=== PATIENT | female | born 1990 | race Two or more races ===

== ENCOUNTER 2020-11-30 13:29 | Outpatient (REF) | payer OTHER, SELFPAY ==
[2020-12-02 05:32] LABS: C. trachomatis RNA TMA NOT DETECTED (NOT DETECTED); N. gonorrhoeae RNA TMA NOT DETECTED (NOT DETECTED)
[2020-12-03 12:12] LABS: HPV mRNA E6/E7 Not Detected (Not Detected)
== END 2020-11-30 13:30 | disposition home or self-care (01) ==
LOC: HO.LAB 13:29
PROVIDERS: PCP Internal Medicine; Visit Provider Advanced Practice Midwife
DX: Z01.419 Encounter for gynecological examination (general) (routine) without abnormal findings (principal)
CPT/HCPCS: 36415; 87491; 87591; 87624; 87625; 88141; 88142

== ENCOUNTER → 2020-12-22 12:56 | Outpatient (BNVA) | payer OTHER, SELFPAY | PROVIDERS: PCP Internal Medicine | DX: Z30.9 Encounter for contraceptive management, unspecified (principal) | CPT/HCPCS: 96372; 99212 ==

== ENCOUNTER 2021-02-25 09:49 | Outpatient (REF) | payer OTHER, SELFPAY ==
[2021-02-25 11:20] LABS: MANUAL DIFF FLAG NO
[2021-02-25 11:29] LABS: Basophils Percent Auto 0.8 % (0-2); Eosinophils Absolute Auto 0.3 X10*3/uL (0.0-0.4); Eosinophils Percent Auto 5.8 % (0-4); Hematocrit 39.9 % (37-47); Hemoglobin 13.3 g/dl (12.0-16.0); Imm Gran Abs Auto 0.04 X10*3/uL (0.00-0.03); Imm Gran Pct Auto 0.8 % (0.0-0.4); Lymphocytes Absolute Auto 1.2 X10*3/uL (1.2-4.9); Lymphocytes Percent Auto 24.7 % (20-40); Mean Corpuscular HGB Conc 33.3 g/dl (31.0-35.0); Mean Corpuscular Hemoglobin 28.4 pg (27.0-33.0); Mean Corpuscular Volume 85.1 fL (80-98); Mean Platelet Volume 10.1 fL (9.4-12.3); Monocytes Absolute Auto 0.3 X10*3/uL (0.1-1.2); Monocytes Percent Auto 6.2 % (2-11); Neutrophils Absolute Auto 3.1 X10*3/uL (2.0-8.3); Neutrophils Percent Auto 61.7 % (45-73); Platelet Count 272 X10*3/uL (160-400); Red Blood Count 4.69 X10*6/uL (4.20-5.50); Red Cell Distribution Width 12.2 % (11.0-16.0)
[2021-02-25 11:50] LABS: Alanine Aminotransferase 45 U/L (0-31); Alkaline Phosphatase 136 U/L (39-117); Anion Gap 14 (12-20); Aspartate Amino Transferase 31 U/L (5-31); Blood Urea Nitrogen 13 mg/dL (9-16); Calcium 8.9 mg/dL (8.4-10.2); Carbon Dioxide 25 mmol/L (22-29); Chloride 105 mmol/L (96-108); Cholesterol 222 mg/dL; Estimated Glomerular Filt Rate > 60; Glucose Fasting 264 mg/dL (60-99); HDL Cholesterol 51 mg/dL; Iron 80 mcg/dL (30-160); LDL Cholesterol Calculated 112 mg/dl; Percent Iron Saturation 31 % (15-50); Potassium 3.9 mmol/L (3.3-5.1); Sodium 140 mmol/L (135-145); Total Iron Binding Capacity 260 mcg/dL (228-428); Total Protein 7.4 g/dL (6.5-8.0); Triglycerides 295 mg/dL; Unsaturated Iron Binding 180 ug/dL
[2021-02-25 12:00] LABS: Vitamin D 25-OH Total 22.9 ng/mL (>30)
[2021-02-25 12:13] LABS: Folate 10.6 ng/mL (> or = 4.0); Vitamin B12 1662 pg/mL (200-900)
[2021-02-25 12:14] LABS: Bilirubin Total 0.4 mg/dL (0.0-1.0)
== END 2021-02-25 09:50 | disposition home or self-care (01) ==
LOC: HO.HMGCLDS 09:49
PROVIDERS: PCP Internal Medicine; Visit Provider Internal Medicine
DX: Z00.01 Encounter for general adult medical examination with abnormal findings (principal); E03.9 Hypothyroidism, unspecified; E78.5 Hyperlipidemia, unspecified; F31.9 Bipolar disorder, unspecified; G62.9 Polyneuropathy, unspecified; I10 Essential (primary) hypertension; M62.81 Muscle weakness (generalized)
CPT/HCPCS: 36415; 80053; 80061; 82306; 82607; 82746; 83540; 84439; 84443; 85025

== ENCOUNTER 2021-03-01 10:37 | Outpatient (REF) | payer OTHER, SELFPAY ==
[2021-03-01 14:22] LABS: Estimated Average Glucose 280 mg/dL; Hemoglobin A1c % 11.4 %
[2021-03-01 14:30] LABS: Alanine Aminotransferase 46 U/L (0-31); Albumin Level 4.3 g/dL (3.5-5.0); Alkaline Phosphatase 159 U/L (39-117); Aspartate Amino Transferase 33 U/L (5-31); Bilirubin Direct 0.2 mg/dL (0.0-0.5); Bilirubin Total 0.6 mg/dL (0.0-1.0); Total Protein 7.7 g/dL (6.5-8.0)
[2021-03-01 14:53] LABS: Free T4 (Free Thyroxine) 0.96 ng/dL (0.71-1.85); Thyroid Stimulating Hormone 3.29 uIU/mL (0.32-4.0); Vitamin D 25-OH Total 28.4 ng/mL (>30)
[2021-03-01 15:08] LABS: Folate 12.6 ng/mL (> or = 4.0); Vitamin B12 1330 pg/mL (200-900)
== END 2021-03-01 10:38 | disposition home or self-care (01) ==
LOC: HO.HMGCLDS 10:37
PROVIDERS: PCP Internal Medicine; Visit Provider Internal Medicine
DX: E03.9 Hypothyroidism, unspecified (principal); E55.9 Vitamin D deficiency, unspecified; R74.8 Abnormal levels of other serum enzymes; R73.01 Impaired fasting glucose
CPT/HCPCS: 36415; 80076; 82306; 82607; 82746; 83036; 84439; 84443

== ENCOUNTER → 2021-03-18 13:05 | Outpatient (BNVA) | payer OTHER, SELFPAY | PROVIDERS: PCP Internal Medicine; Visit Provider Advanced Practice Midwife | DX: Z30.9 Encounter for contraceptive management, unspecified (principal) | CPT/HCPCS: 96372; J1050 ==

== ENCOUNTER → 2021-05-10 13:39 | Outpatient (BNVA) | payer OTHER, SELFPAY | PROVIDERS: PCP Internal Medicine; Visit Provider Nurse Practitioner Gerontology | DX: E11.65 Type 2 diabetes mellitus with hyperglycemia (principal); E03.9 Hypothyroidism, unspecified; E66.01 Morbid (severe) obesity due to excess calories; Z68.42 Body mass index [BMI] 45.0-49.9, adult; Z79.4 Long term (current) use of insulin | CPT/HCPCS: 82947; 99212 ==

== ENCOUNTER 2021-05-23 10:17 | Outpatient (REF) | payer OTHER, SELFPAY ==
[2021-05-24 08:39] LABS: BV Int Neg Control Negative (Negative); BV Int Pos Control Positive (Positive)
== END 2021-05-23 10:18 | disposition home or self-care (01) ==
LOC: HO.LAB 10:17
PROVIDERS: PCP Internal Medicine; Visit Provider Advanced Practice Midwife
DX: E11.9 Type 2 diabetes mellitus without complications (principal); B37.3 Candidiasis of vulva and vagina; Z20.2 Contact with and (suspected) exposure to infections with a predominantly sexual mode of transmission
CPT/HCPCS: 87480; 87510; 87660; 99212

== ENCOUNTER → 2021-06-03 13:11 | Outpatient (BNVA) | payer OTHER, SELFPAY | PROVIDERS: PCP Internal Medicine; Visit Provider Advanced Practice Midwife | DX: Z30.9 Encounter for contraceptive management, unspecified (principal) | CPT/HCPCS: 96372; 99211 ==

== ENCOUNTER → 2021-06-06 12:30 | Outpatient (BNVA) | payer OTHER, SELFPAY | PROVIDERS: PCP Internal Medicine; Visit Provider Dietitian, Registered | DX: E11.65 Type 2 diabetes mellitus with hyperglycemia (principal); Z79.4 Long term (current) use of insulin | CPT/HCPCS: 97802 ==

== ENCOUNTER → 2021-07-20 12:23 | Outpatient (BNVA) | payer OTHER, SELFPAY | PROVIDERS: PCP Internal Medicine; Visit Provider Dietitian, Registered | DX: E11.65 Type 2 diabetes mellitus with hyperglycemia (principal); Z79.4 Long term (current) use of insulin | CPT/HCPCS: 97803 ==

== ENCOUNTER → 2021-08-18 14:23 | Outpatient (BNVA) | payer OTHER, SELFPAY | PROVIDERS: PCP Internal Medicine; Visit Provider Nurse Practitioner Gerontology | DX: E11.69 Type 2 diabetes mellitus with other specified complication (principal); E03.9 Hypothyroidism, unspecified; E66.01 Morbid (severe) obesity due to excess calories; E55.9 Vitamin D deficiency, unspecified; G62.9 Polyneuropathy, unspecified; Z68.42 Body mass index [BMI] 45.0-49.9, adult; Z79.4 Long term (current) use of insulin | CPT/HCPCS: 82947; 83036; 99212 ==

== ENCOUNTER → 2021-08-24 14:05 | Outpatient (BNVA) | payer OTHER, SELFPAY | PROVIDERS: PCP Internal Medicine; Visit Provider Advanced Practice Midwife | DX: Z30.42 Encounter for surveillance of injectable contraceptive (principal) | CPT/HCPCS: 96372; 99211 ==

== ENCOUNTER → 2021-09-21 13:07 | Outpatient (BNVA) | payer OTHER, SELFPAY | PROVIDERS: PCP Internal Medicine; Visit Provider Advanced Practice Midwife | DX: E11.65 Type 2 diabetes mellitus with hyperglycemia (principal); Z30.42 Encounter for surveillance of injectable contraceptive; E11.69 Type 2 diabetes mellitus with other specified complication; E66.01 Morbid (severe) obesity due to excess calories; G62.9 Polyneuropathy, unspecified; N92.1 Excessive and frequent menstruation with irregular cycle; B37.3 Candidiasis of vulva and vagina; Z79.4 Long term (current) use of insulin; Z68.42 Body mass index [BMI] 45.0-49.9, adult | CPT/HCPCS: 99212 ==

== ENCOUNTER 2021-10-11 | Outpatient (REF) | payer OTHER, SELFPAY ==
[2021-10-12 13:13] LABS: Influenza A PCR NEGATIVE (Negative); Influenza B PCR NEGATIVE (Negative); Resp Syncy Virus RNA Qual PCR NEGATIVE (Negative); SARS COV2 PCR INHOUSE NEGATIVE (Negative)
== END 2021-10-11 00:01 | disposition home or self-care (01) ==
LOC: HO.LNP
PROVIDERS: Visit Provider Internal Medicine
DX: Z20.822 Contact with and (suspected) exposure to COVID-19 (principal); R43.9 Unspecified disturbances of smell and taste
CPT/HCPCS: 0241U

== ENCOUNTER 2021-10-12 11:30 | Outpatient (REF) | payer OTHER, SELFPAY | END 2021-10-12 11:31 | disposition home or self-care (01) | LOC: HO.LNP 11:30 | PROVIDERS: Visit Provider Internal Medicine | DX: Z13.89 Encounter for screening for other disorder (principal) ==

== ENCOUNTER 2021-10-16 09:07 | Inpatient (IN) | payer OTHER, SELFPAY ==
[2021-10-16] VITALS (12 sets, daily range): BP systolic 96–136; BP diastolic 56–80; PULSE 100–165; RESP 14–20; TEMP 36.1–39.3; O2SAT 94–99; BMI 45.3
--- NOTE | ~2021-10-16 | US_ITS ---
EXAMINATION: US RETROPERITONEAL LIMITED (RENAL ONLY) CLINICAL INFORMATION: Sepsis. Urinary tract infection. Acute renal insufficiency. Evaluate for pyelonephritis, stones, urinary tract obstruction.. COMPARISON: Abdomen CT from 07/29/2019 TECHNIQUE: Sonographic imaging of the kidneys was performed. The visualization the kidneys is partially limited by patient's body habitus. FINDINGS: RIGHT KIDNEY: 11.1 x 5.1 x 5.5 cm (SAG x AP x TRV). The kidney is normal in size, contour, and echogenicity. Renal cortical thickness is normal. No calculi or focal parenchymal lesions. No hydronephrosis. No perinephric fluid is seen. LEFT KIDNEY: 12.1 x 6.1 x 5 cm (SAG x AP x TRV). The kidney is normal in size, contour, and echogenicity. Renal cortical thickness is normal. No calculi or focal parenchymal lesions. No hydronephrosis. No perinephric fluid is seen. US/US renal BI IMPRESSION: The kidneys have a normal sonographic appearance. No evidence of nephrolithiasis or hydronephrosis.
--- NOTE | ~2021-10-16 | XR_ITS ---
EXAMINATION: XR CHEST CLINICAL INFORMATION: Question pneumonia COMPARISON: August 14, 2019 TECHNIQUE: AP upright view of the chest was obtained. FINDINGS: There are small lung volumes. There is no evidence of acute parenchymal disease, pneumothorax, or pleural effusion. Heart normal size. No evidence of pulmonary edema. XR/XR chest 1V IMPRESSION: No acute disease.
--- NOTE | 2021-10-16 09:28 | ECG_ITS ---
Test Reason : HI HR Blood Pressure : / mmHG Vent. Rate : 152 BPM Atrial Rate : 152 BPM P-R Int : 112 ms QRS Dur : 084 ms QT Int : 326 ms P-R-T Axes : 000 074 027 degrees QTc Int : 518 ms Sinus tachycardia Abnormal ECG When compared with ECG of 15-AUG-2019 07:25, Non-specific change in ST segment in Inferior leads T wave inversion no longer evident in Inferior leads T wave inversion no longer evident in Anterior leads Referred By: Robert Hobson Electronically Signed By:HEMA CERVANTES
[2021-10-16] MEDS: Acetaminophen 325 MG TABLET 650 MG PO (09:40)
--- NOTE | 2021-10-16 09:40 | ED.GENADULT ---
HPI - General Adult General Chief complaint: Fever Stated complaint: FEVER, WEAKNESS, AMS Time Seen by Provider: 10/16/21 09:27 Source: patient and EMS Mode of arrival: EMS History of Present Illness HPI narrative: this is a 31 years old female with history of inflammatory polyneuropathy diagnosed in 2019, history of diabetes type 2, presented to the emergency department with 10 days history of a febrile illness and malaise. She was seen in outpatient clinic last week he was tested for COVID sent home . The father is in the patient states for the last couple of days she has been febrile. She arrived to the emergency department tachycardic febrile with a temperature of 102.5 degrees Onset (ago): day(s) (10) Radiation: non-radiation Severity: moderate Pain Consistency: constant Relieving factors: none Exacerbating factors: none Associated symptoms: denies other symptoms Related Data Home Medications Medication Instructions Recorded Confirmed bupropion HCl 100 mg tablet,12 hr 100 mg PO QAM 11/30/20 09/21/21 sustained-release trazodone 100 mg tablet 100 mg PO BEDTIME 11/30/20 09/21/21 cranberry 400 mg capsule 450 mg PO DAILY cap 03/22/21 09/21/21 melatonin 3 mg tablet 6 mg PO DAILY 03/22/21 09/21/21 multivitamin 1 tab PO DAILY 03/22/21 09/21/21 pregabalin 300 mg capsule 150 mg PO BID cap 05/10/21 09/21/21 medroxyprogesterone 150 mg/mL 150 mg IM [id number] 05/23/21 09/21/21 intramuscular suspension (Depo-Provera) thiamine HCl (vitamin B1) 100 mg 100 mg PO DAILY 06/09/21 09/21/21 tablet rituximab 10 mg/mL IV 08/11/21 09/21/21 concentrate,intravenous oxcarbazepine 150 mg tablet 450 mg PO BID tab 08/18/21 09/21/21 immune globulin,gamma(IgG)slra 10 IV 10/11/21 % intravenous solution quetiapine 200 mg tablet 1 tab PO BEDTIME 10/16/21 Previous Rx's Medication Instructions Recorded blood sugar diagnostic (FreeStyle #100 ea 05/10/21 Lite Strips) insulin degludec 200 unit/mL (3 20 unit (0.1 mL) SUBCUT BEDTIME 30 05/10/21 mL) subcutaneous pen (si #3 ml FlexTouch U-200 insulin) lancets 28 gauge (FreeStyle #100 ea 05/10/21 Lancets) pen needle, diabetic 32 gauge x #50 ea 05/10/21/32 (BD Wendy 2nd Gen Pen Needle) blood-glucose meter (FreeStyle #1 ea 05/31/21 Lite Meter) ferrous sulfate 325 mg (65 mg 325 mg PO BID #60 cap 06/21/21 iron) tablet pantoprazole 40 mg tablet,delayed 40 mg PO DAILY #30 cap 07/19/21 release empagliflozin 10 mg tablet 10 mg PO QAM #30 tab 07/20/21 (Jardiance) metformin 500 mg tablet 500 mg PO BID #60 tab 08/08/21 cholecalciferol (vitamin D3) 1,250 1,250 mcg PO QWEEK 90 Days #13 cap 08/20/21 mcg (50,000 unit) capsule pravastatin 20 mg tablet 20 mg PO BEDTIME #30 tab 09/16/21 miconazole nitrate 2 % vaginal 1 appful VAGINAL BEDTIME 7 Days 09/21/21 cream (Miconazole-7) #45 g levothyroxine 75 mcg tablet 75 mcg PO QAM #30 cap 09/26/21 (Euthyrox) magnesium oxide 400 mg (241.3 mg 400 mg PO DAILY #30 tab 10/04/21 magnesium) tablet Allergies Allergy/AdvReac Type Severity Reaction Status Date / Time latex Allergy Unknown rash Verified 10/11/21 16:15 metoclopramide [From REGLAN] AdvReac Unknown INTERACTS Verified 10/11/21 16:15 W/ SEROQUEL Review of Systems Review of Systems: Yes all other systems are reviewed and are negative Constitutional: Constitutional: Reports anorexia, Reports body ache(s), Reports fatigue and Reports fever(s) ENT: Reports system reviewed and no additional complaints, except as documented Respiratory: Respiratory: Reports cough Gastrointestinal: Gastrointestinal: Reports no additional gastrointestinal complaints Musculoskeletal: Musculoskeletal: Reports no additional musculoskeletal complaints Endocrine: Endocrine: Reports fatigue PMFSH Past Medical History Medical History Acquired hypothyroidism Bipolar disorder Blurred vision, bilateral Diabetes mellitus with hyperglycemia Elevated fasting blood sugar Elevated vitamin B12 level Esophagitis with gastritis Essential hypertension Gastric paresis Hyperlipidemia Muscle weakness Newly diagnosed diabetes Obesity due to excess calories Peripheral neuropathy Vitamin D deficiency Surgical History Hx of section Hx of tooth extraction Family History Family History Other Adopted Social History Social History Household Members: Family Alcohol intake: former Patient Tobacco Use Status: Former Tobacco user Advance Directives: No Advance Directives Information Provided: Yes Patient : No Gender identity: Female Physical Exam Vital Signs: Vital Signs: Last Vital Signs Temp 100.3 F 10/16/21 12:18 Pulse 127 H 10/16/21 12:18 Resp 20 10/16/21 12:18 BP 106/61 10/16/21 12:18 Pulse Ox 97 10/16/21 12:18 BMI result Body Mass Index 45.3 Const: General: cooperative and Cushingoid facies Nutritional Appearance: obese and overweight HENMT: Other: examination the head eyes ears nose and throat is within normal limits General nose exam: Normal external nose present Face and sinus: Yes normal facial exam Mouth: Normal oral and palatal mucosa present Neck: Neck: Yes normal visual inspection and Yes full ROM Chest: Chest palpation & inspection: normal inspection of the chest Resp: Effort & Inspection: normal respiratory effort Auscultation: clear to auscultation bilaterally Cardio: Jugular venous distension: no JVD Rate: tachycardic GI: Inspection: Yes normal to inspection Palpation (GI): Soft to palpation Skin: General skin exam: no rashes or lesions noted Course Reevaluation(s) Reevaluation #1: Imroving ,Heart rate coming down,w/u so far showed UTI as possible source Medical Decision Making MDM Narrative Medical decision making narrative: this is a 31 years old female was arrived afebrile and tachycardic concern with sepsis will do blood cultures x2 lactic acid the, antibiotic will be administered Zosyn and vanco IV fluid will be given patient lean body weight is about the 50 kg she is about 411 ft. Lab Data Lab results reviewed: Yes I reviewed the patient's lab results. Result diagrams: 10/16/21 09:54 10/16/21 09:54 Labs: Lab Results 12/04/0110/16/21 10/16/21 Range/Units 09:54 09:54 09:54 WBC 14.1 H (4.8-10.8) X10*3/uL RBC 3.88 L (4.20-5.50) X10*6/uL Hgb 11.3 L (12.0-16.0) g/dl Hct 33.3 L (37.0-47.0) % MCV 85.8 (80.0-98.0) fL MCH 29.1 (27.0-33.0) pg MCHC 33.9 (31.0-35.0) g/dl RDW 14.1 (11.0-16.0) % Plt Count 92 L (160-400) X10*3/uL MPV 11.8 (9.4-12.3) fL Immature Gran % (Auto) 0.8 H (0.0-0.4) % Neut % (Auto) 93.8 H (45-73) % Lymph % (Auto) 1.1 L (20-40) % [place] % (Auto) 4.0 (2-11) % Eos % (Auto) 0.1 (0-4) % Baso % (Auto) 0.2 (0-2) % Lymph # (Auto) 0.2 L (1.2-4.9) X10*3/uL Montgomery # (Auto) 0.6 (0.1-1.2) X10*3/uL Eos # (Auto) 0.0 (0.0-0.4) X10*3/uL Baso # (Auto) 0.0 (0.0-0.2) X10*3/uL Abs Immat Gran (auto) 0.12 H (0.00-0.03) X10*3/uL Absolute Neuts (auto) 13.3 H (2.0-8.3) x10*3/uL Absolute Nucleated RBC 0.000 (0.0-0.012) X10*3/uL Nucleated RBC % (auto) 0.0 (0.0-0.2) /100WBC Smear Tech's Comments VERIFIED VBG pH (7.32-7.43) VBG pCO2 mmHg VBG pO2 mmHg VBG HCO3 (22-26) mmol/L VBG O2 Saturation % VBG Base Excess mmol/L Sodium 138 (135-145) mmol/L Potassium 2.9 L D (3.3-5.1) mmol/L Chloride 110 H (96-108) mmol/L Carbon Dioxide 14 L (22-29) mmol/L Anion Gap 17 (12-20) BUN 34 H (9-16) mg/dL Creatinine 1.96 H (0.5-1.4) mg/dL Estim Creat Clear Calc 43.4 Estimated GFR 30 Random Glucose 178 H (60-115) mg/dL Lactic Acid 1.4 (0.5-2.0) mmol/L Calcium 7.1 L D (8.4-10.2) mg/dL Total Bilirubin 1.3 H (0.0-1.0) mg/dL AST 30 (5-31) U/L ALT 20 (0-31) U/L Alkaline Phosphatase 166 H (39-117) U/L Troponin I High Sens (<3.5-17.0) ng/L Total Protein 5.2 L D (6.5-8.0) g/dL Albumin 2.6 L D (3.5-5.0) g/dL Urine Color Urine Appearance Urine pH (5.0-8.0) Ur Specific [place] (1.005-1.025) Urine Protein (NEG-TRACE) MG/DL Urine Glucose (UA) (NEG) MG/DL Urine Ketones (NEG) MG/DL Urine Blood (NEG) Urine Nitrite (NEG) Ur Leukocyte Esterase (NEG) Urine RBC (0) /HPF Urine WBC (0-4) /HPF Urine WBC Clumps Ur Squamous Epith Cells /LPF Urine Bacteria /LPF Influenza Type A (PCR) (Negative) Influenza Type B (PCR) (Negative) RSV RNA Qual (PCR) (Negative) SARS-CoV-2 RNA (RT-PCR) (Negative) 10/16/21 10/16/21 10/16/21 Range/Units 09:54 09:54 09:59 WBC (4.8-10.8) X10*3/uL RBC (4.20-5.50) X10*6/uL Hgb (12.0-16.0) g/dl Hct (37.0-47.0) % MCV (80.0-98.0) fL MCH (27.0-33.0) pg MCHC (31.0-35.0) g/dl RDW (11.0-16.0) % Plt Count (160-400) X10*3/uL MPV (9.4-12.3) fL Immature Gran % (Auto) (0.0-0.4) % Neut % (Auto) (45-73) % Lymph % (Auto) (20-40) % Montgomery % (Auto) (2-11) % Eos % (Auto) (0-4) % Baso % (Auto) (0-2) % Lymph # (Auto) (1.2-4.9) X10*3/uL Montgomery # (Auto) (0.1-1.2) X10*3/uL Eos # (Auto) (0.0-0.4) X10*3/uL Baso # (Auto) (0.0-0.2) X10*3/uL Abs Immat Gran (auto) (0.00-0.03) X10*3/uL Absolute Neuts (auto) (2.0-8.3) x10*3/uL Absolute Nucleated RBC (0.0-0.012) X10*3/uL Nucleated RBC % (auto) (0.0-0.2) /100WBC Smear Tech's Comments VBG pH 7.33 (7.32-7.43) VBG pCO2 23 mmHg VBG pO2 68 mmHg VBG HCO3 12 L (22-26) mmol/L VBG O2 Saturation 90.0 % VBG Base Excess -11.1 mmol/L Sodium (135-145) mmol/L Potassium (3.3-5.1) mmol/L Chloride (96-108) mmol/L Carbon Dioxide (22-29) mmol/L Anion Gap (12-20) BUN (9-16) mg/dL Creatinine (0.5-1.4) mg/dL Estim Creat Clear Calc Estimated GFR Random Glucose (60-115) mg/dL Lactic Acid (0.5-2.0) mmol/L Calcium (8.4-10.2) mg/dL Total Bilirubin (0.0-1.0) mg/dL AST (5-31) U/L ALT (0-31) U/L Alkaline Phosphatase (39-117) U/L Troponin I High Sens 4.3 (<3.5-17.0) ng/L Total Protein (6.5-8.0) g/dL Albumin (3.5-5.0) g/dL Urine Color Urine Appearance Urine pH (5.0-8.0) Ur Specific [place] (1.005-1.025) Urine Protein (NEG-TRACE) MG/DL Urine Glucose (UA) (NEG) MG/DL Urine Ketones (NEG) MG/DL Urine Blood (NEG) Urine Nitrite (NEG) Ur Leukocyte Esterase (NEG) Urine RBC (0) /HPF Urine WBC (0-4) /HPF Urine WBC Clumps Ur Squamous Epith Cells /LPF Urine Bacteria /LPF Influenza Type A (PCR) NEGATIVE (Negative) Influenza Type B (PCR) NEGATIVE (Negative) RSV RNA Qual (PCR) NEGATIVE (Negative) SARS-CoV-2 RNA (RT-PCR) NEGATIVE (Negative) 10/16/21 Range/Units 10:29 WBC (4.8-10.8) X10*3/uL RBC (4.20-5.50) X10*6/uL Hgb (12.0-16.0) g/dl Hct (37.0-47.0) % MCV (80.0-98.0) fL MCH (27.0-33.0) pg MCHC (31.0-35.0) g/dl RDW (11.0-16.0) % Plt Count (160-400) X10*3/uL MPV (9.4-12.3) fL Immature Gran % (Auto) (0.0-0.4) % Neut % (Auto) (45-73) % Lymph % (Auto) (20-40) % Montgomery % (Auto) (2-11) % Eos % (Auto) (0-4) % Baso % (Auto) (0-2) % Lymph # (Auto) (1.2-4.9) X10*3/uL [place] # (Auto) (0.1-1.2) X10*3/uL Eos # (Auto) (0.0-0.4) X10*3/uL Baso # (Auto) (0.0-0.2) X10*3/uL Abs Immat Gran (auto) (0.00-0.03) X10*3/uL Absolute Neuts (auto) (2.0-8.3) x10*3/uL Absolute Nucleated RBC (0.0-0.012) X10*3/uL Nucleated RBC % (auto) (0.0-0.2) /100WBC Smear Tech's Comments VBG pH (7.32-7.43) VBG pCO2 mmHg VBG pO2 mmHg VBG HCO3 (22-26) mmol/L VBG O2 Saturation % VBG Base Excess mmol/L Sodium (135-145) mmol/L Potassium (3.3-5.1) mmol/L Chloride (96-108) mmol/L Carbon Dioxide (22-29) mmol/L Anion Gap (12-20) BUN (9-16) mg/dL Creatinine (0.5-1.4) mg/dL Estim Creat Clear Calc Estimated GFR Random Glucose (60-115) mg/dL Lactic Acid (0.5-2.0) mmol/L Calcium (8.4-10.2) mg/dL Total Bilirubin (0.0-1.0) mg/dL AST (5-31) U/L ALT (0-31) U/L Alkaline Phosphatase (39-117) U/L Troponin I High Sens (<3.5-17.0) ng/L Total Protein (6.5-8.0) g/dL Albumin (3.5-5.0) g/dL Urine Color YELLOW Urine Appearance CLOUDY Urine pH 5.5 (5.0-8.0) Ur Specific [place] 1.025 (1.005-1.025) Urine Protein 2+ H (NEG-TRACE) MG/DL Urine Glucose (UA) >=1000 H (NEG) MG/DL Urine Ketones 15 (NEG) MG/DL Urine Blood 2+ H (NEG) Urine Nitrite NEG (NEG) Ur Leukocyte Esterase 2+ H (NEG) Urine RBC 15-29 H (0) /HPF Urine WBC 76-150 H (0-4) /HPF Urine WBC Clumps NOTED Ur Squamous Epith Cells 2+ /LPF Urine Bacteria 3+ /LPF Influenza Type A (PCR) (Negative) Influenza Type B (PCR) (Negative) RSV RNA Qual (PCR) (Negative) SARS-CoV-2 RNA (RT-PCR) (Negative) Critical Care Time Critical Care Time Critical Care Time: Yes Total Critical Care Time: 60 Attestation: fever/ tachycardia 150/sepsis syndrome time spent with pt,talking to father,nurse/hospitalist Discharge Plan Discharge Clinical Impression: Fever, UTI (urinary tract infection) Patient Disposition: Admitted As Inpatient
[2021-10-16] MEDS: 0.9 % Sodium Chloride 1,000 ML 999 ML IVCONT ×2 (10:00→10:08)
[2021-10-16 10:04] LABS: Basophils Percent Auto 0.2 % (0-2); Eosinophils Percent Auto 0.1 % (0-4); Hematocrit 33.3 % (37.0-47.0); Hemoglobin 11.3 g/dl (12.0-16.0); Imm Gran Abs Auto 0.12 X10*3/uL (0.00-0.03); Imm Gran Pct Auto 0.8 % (0.0-0.4); Lymphocytes Absolute Auto 0.2 X10*3/uL (1.2-4.9); Lymphocytes Percent Auto 1.1 % (20-40); MANUAL DIFF FLAG SCAN; Mean Corpuscular HGB Conc 33.9 g/dl (31.0-35.0); Mean Corpuscular Hemoglobin 29.1 pg (27.0-33.0); Mean Corpuscular Volume 85.8 fL (80.0-98.0); Mean Platelet Volume 11.8 fL (9.4-12.3); Monocytes Absolute Auto 0.6 X10*3/uL (0.1-1.2); Neutrophils Absolute Auto 13.3 x10*3/uL (2.0-8.3); Neutrophils Percent Auto 93.8 % (45-73); Red Blood Count 3.88 X10*6/uL (4.20-5.50); Red Cell Distribution Width 14.1 % (11.0-16.0); SCAN SMEAR FLAG 1; White Blood Count 14.1 X10*3/uL (4.8-10.8)
[2021-10-16 10:04] LABS: VBG Base Excess -11.1 mmol/L; VBG HCO3 12 mmol/L (22-26); VBG pCO2 23 mmHg; VBG pH 7.33 (7.32-7.43); VBG pO2 68 mmHg
[2021-10-16] MEDS: Piperacillin Sodium/Tazobactam 4.5 GM in 0.9 % Sodium Chloride 100 ML IV (10:06)
[2021-10-16 10:08] LABS: Venous Blood Gas Refer to POC result
[2021-10-16 10:17] LABS: Lactic Acid 1.4 mmol/L (0.5-2.0)
[2021-10-16 10:21] LABS: Troponin-I High Sensitivity 4.3 ng/L (<3.5-17.0)
[2021-10-16 10:26] LABS: Platelet Count 92 X10*3/uL (160-400)
[2021-10-16 10:27] LABS: SLIDE REVIEW VERIFIED
[2021-10-16 10:31] LABS: Alanine Aminotransferase 20 U/L (0-31); Albumin Level 2.6 g/dL (3.5-5.0); Alkaline Phosphatase 166 U/L (39-117); Aspartate Amino Transferase 30 U/L (5-31); Bilirubin Total 1.3 mg/dL (0.0-1.0); Blood Urea Nitrogen 34 mg/dL (9-16); Creatinine Clr Calc Pharmacy 43.4; Estimated Glomerular Filt Rate 30; Glucose Random 178 mg/dL (60-115); Total Protein 5.2 g/dL (6.5-8.0)
[2021-10-16 10:35] LABS: Appearance Urine CLOUDY; Color Urine YELLOW; Glucose Urine UA >=1000 MG/DL (NEG); Leukocyte Esterase Urine 2+ (NEG); Nitrite Urine NEG (NEG); PH 5.5 (5.0-8.0); Specific Gravity - Urine 1.025 (1.005-1.025); UACC Culture Trigger YES; Urine Blood 2+ (NEG); Urine Ketones 15 MG/DL (NEG); Urine Protein 2+ MG/DL (NEG-TRACE)
[2021-10-16] MEDS: Acetaminophen 325 MG TABLET PO (10:36)
[2021-10-16] MEDS: Ibuprofen 800 MG TABLET PO (10:36)
[2021-10-16] MEDS: vancomycin HCL 1,500 MG in 0.9 % Sodium Chloride 500 ML 333.33 MG IV (10:40)
[2021-10-16 10:41] LABS: UACC CULT YES
[2021-10-16 10:41] LABS: Influenza A PCR NEGATIVE (Negative); Influenza B PCR NEGATIVE (Negative); Resp Syncy Virus RNA Qual PCR NEGATIVE (Negative); SARS COV2 PCR INHOUSE NEGATIVE (Negative)
[2021-10-16 10:42] LABS: Bacteria Urine 3+ /LPF; Squamous Epithelial Cell Urine 2+ /LPF; WBC Clumps Urine NOTED
[2021-10-16 10:58] LABS: Anion Gap 17 (12-20); Calcium 7.1 mg/dL (8.4-10.2); Carbon Dioxide 14 mmol/L (22-29); Chloride 110 mmol/L (96-108); Potassium 2.9 mmol/L (3.3-5.1); Sodium 138 mmol/L (135-145)
[2021-10-16] MEDS: Potassium Chloride ER 20 MEQ TAB.ER.PRT PO (12:22)
--- NOTE | 2021-10-16 13:53 | PHA.MEDREC ---
Pharmacy Consult ? Medication Reconciliation Pharmacy has completed the medication reconciliation. Patient's father had a list reports that her seroquel dose 300 mg BID however the pharamcy record show seroquel 400 mg and 200 mg at bedtime. Yue Lemus, PharmD
--- NOTE | 2021-10-16 14:27 | PM.IMHP ---
History of Present Illness Date of Service: 10/16/21 Attending physician on admission: Eduarda Rivas Chief Complaint: fever, weakness This is a 31 year history diabetes, hypertension, hyperlipidemia, bipolar disorder, and severe autoimmune polyneuropathy who presents to the emergency department with 10 days of increased weakness and chills. History was obtained from the patient as well as her father at the bedside. For the past 10 days she has had generalized weakness with associated chills. She has a history of autoimmune neuropathy but is typically able to ambulate with a walker or cane, She was recently treated with amoxicillin for a dental abscess and has plans for outpatient tooth extraction. Over the past couple of days she has had fever and dysuria. She denies any abdominal pain, nausea, vomiting. She has no shortness of breath no cough. On arrival to the emergency department she had fever 102, was noted to be tachycardic. Lab work was significant for multiple abnormalities including leukocytosis of 14,000, CRISPIN with creatinine of 1.96, hypokalemia with potassium of 2.9, metabolic acidosis with bicarb of 14. Chest x-ray showed no acute abnormalities. Urinalysis was positive for leukocyte esterase, wbc's, rbc's and bacteria concerning for UTI. She was started on broad-spectrum antibiotics with IV vancomycin and Zosyn and the decision was made to her to the hospital for further management of sepsis. Review of Systems Review of Systems: Yes all other systems are reviewed and are negative Constitutional: Constitutional: Reports chills, Reports fever(s) and Reports weakness Cardiovascular: Cardiovascular: Denies chest pain and Denies dyspnea Respiratory: Respiratory: Denies cough and Denies dyspnea Gastrointestinal: Gastrointestinal: Denies abdominal pain Neurologic: Reports weakness [facility] Medical History Acquired hypothyroidism Bipolar disorder Blurred vision, bilateral Diabetes mellitus with hyperglycemia Elevated fasting blood sugar Elevated vitamin B12 level Esophagitis with gastritis Essential hypertension Gastric paresis Hyperlipidemia Muscle weakness Newly diagnosed diabetes Obesity due to excess calories Peripheral neuropathy Vitamin D deficiency Functional capacity: uses cane/walker Family History Other Adopted Surgical History Hx of section Hx of tooth extraction Social History (Updated 10/16/21 @ 15:15 by MELANY Lott) Household Members: Family Alcohol intake: never Patient Tobacco Use Status: Former Tobacco user Use of substances other than those prescribed or required for medical reasons: No Advance Directives: No Advance Directives Information Provided: Yes Patient : No Gender identity: Female Meds Allergies Allergy/AdvReac Type Severity Reaction Status Date / Time latex Allergy Unknown rash Verified 10/11/21 16:15 metoclopramide [From REGLAN] AdvReac Unknown INTERACTS Verified 10/11/21 16:15 W/ SEROQUEL Active Medications: Current Medications Acetaminophen (Acetaminophen 325 Mg Tablet) 650 mg PO Q6H PRN PRN Reason: Pain, Mild (Pain Scale 1-3) Dextrose (Dextrose 50 % 25 Gm/50 Ml Vial) 25 gm IVPUSH Q15M PRN; Protocol PRN Reason: per Hypoglycemia Standing Ord. Docusate Sodium (Docusate Sodium 100 Mg Capsule) 100 mg PO DAILY PRN PRN Reason: Constipation Enoxaparin Sodium (Enoxaparin Sodium 40 Mg/0.4 Ml Syringe) 40 mg SUBCUT Q24H RADHA Glucose (Glucose Gel 15 Gm Gel..Gram.) 15 gm PO Q15M PRN; Protocol PRN Reason: per Hypoglycemia Standing Ord. Potassium Chloride () 10 meq in 100 mls @ 100 mls/hr IV Q1H RADHA Stop: 10/16/21 16:14 Lactated Ringer's (Lr) 1,000 mls @ 125 mls/hr IVCONT .Q8H RADHA Insulin Human Lispro (Insulin Lispro 100 Unit/Ml 3 Ml Vial) 0 unit SUBCUT QIDACHS RADHA; Protocol Levothyroxine Sodium (Levothyroxine Sodium 75 Mcg Tablet) 75 mcg PO QAM ARDHA Magnesium Oxide (Magnesium Oxide 400 Mg Tablet) 400 mg PO DAILY [facility] Melatonin (Melatonin 3 Mg Tablet) 6 mg PO BEDTIME PRN PRN Reason: Insomnia Multivitamins/Vitamin C (Multivitamin Tablet) 1 tab PO DAILY [facility] Non-Formulary Medication (Bupropion Hcl) 100 mg PO QAM [facility] Non-Formulary Medication (Pantoprazole) 40 mg PO DAILY [facility] Ondansetron HCl (Ondansetron Hcl 4 Mg/2 Ml Vial) 4 mg IVPUSH Q8H PRN PRN Reason: Nausea and Vomiting Oxcarbazepine (Oxcarbazepine 150 Mg Tablet) 450 mg PO BID [facility] Pharmacy Consult (Consult Rx Vancomycin Dosing) 1 each MISCELLANE DAILY PRN PRN Reason: Consult order Pharmacy Consult (Consult Rx Perform Med Rec) 1 each MISCELLANE ONCE PRN PRN Reason: Consult order Pravastatin Sodium (Pravastatin Sodium 20 Mg Tablet) 20 mg PO BEDTIME RADHA Pregabalin (Pregabalin 150 Mg Capsule) 300 mg PO BID [facility] Quetiapine Fumarate (Quetiapine Fumarate 400 Mg Tablet) 400 mg PO BEDTIME RADHA Quetiapine Fumarate (Quetiapine Fumarate 200 Mg Tablet) 200 mg PO BEDTIME [facility] Sodium Chloride (0.9 % Sodium Chloride Flush 3 Ml Syringe) 3 ml IVFLUSH QSHIFT [facility] Thiamine HCl (Thiamine Hcl 100 Mg Tablet) 100 mg PO DAILY [facility] Trazodone HCl (Trazodone Hcl 100 Mg Tablet) 100 mg PO BEDTIME [facility] Home Medications Medication Instructions Recorded Confirmed Last Taken Type bupropion HCl 100 mg tablet,12 hr 100 mg PO QAM 11/30/20 10/16/21 10/15/21 History sustained-release trazodone 100 mg tablet 100 mg PO BEDTIME 11/30/20 10/16/21 10/15/21 History cranberry 400 mg capsule 450 mg PO DAILY cap 03/22/21 10/16/21 10/15/21 History melatonin 3 mg tablet 6 mg PO DAILY 03/22/21 10/16/21 10/15/21 History multivitamin 1 tab PO DAILY 03/22/21 10/16/21 10/15/21 History pregabalin 300 mg capsule 300 mg PO BID cap 05/10/21 10/16/21 10/15/21 History medroxyprogesterone 150 mg/mL 150 mg IM [id number] 05/23/21 10/16/21 08/10/21 History intramuscular suspension (Depo-Provera) thiamine HCl (vitamin B1) 100 mg 100 mg PO DAILY 06/09/21 10/16/21 10/15/21 History tablet rituximab 10 mg/mL IV [id number] 08/11/21 09/21/21 Unknown History concentrate,intravenous oxcarbazepine 150 mg tablet 450 mg PO BID tab 08/18/21 10/16/21 10/15/21 History immune globulin,gamma(IgG)slra 10 ml IV Q4W 10/11/21 09/27/21 History % intravenous solution cholecalciferol (vitamin D3) 1,250 1,250 mcg PO MO 10/16/21 10/16/21 10/15/21 History mcg (50,000 unit) capsule quetiapine 200 mg tablet 1 tab PO BEDTIME 10/16/21 10/16/21 10/15/21 History quetiapine 400 mg tablet 1 tab PO BEDTIME 10/16/21 10/16/21 10/15/21 History Physical Exam Vital Signs and Narrative: Vital Signs: Last Vital Signs Temp 99.0 F 10/16/21 14:22 Pulse 125 H 10/16/21 14:22 Resp 18 10/16/21 14:22 BP 122/68 10/16/21 14: Pulse Ox 94 10/16/21 14:22 BMI result Body Mass Index 45.3 Const: General: comfortable, no acute distress, alert and awake Nutritional Appearance: obese Orientation/consciousness: patient oriented x3 HENMT: Head: Yes normocephalic and Yes atraumatic Eyes: Sclerae: sclerae normal Pupils: Equal, round and reactive pupils present Resp: Effort & Inspection: normal respiratory effort and no respiratory distress Auscultation: diminished lung sounds Cardio: Rate: tachycardic Rhythm: regular rhythm Heart sounds: no murmurs GI: Palpation (GI): Soft to palpation and nontender Neuro: General: patient oriented x3 Cranial nerves: Yes CN's II-XII intact bilaterally, Yes Equal, round and reactive pupils present and Yes Bilaterally intact EOM present Extrem: Other: able to move all four extremities spontaneously; no leg edema Results Labs CBC and Chem 7: 10/16/21 09:54 10/16/21 09:54 Labs: Laboratory Results - last 24 hr 10/16/21 10/16/21 10/16/21 09:54 09:54 09:54 MCV 85.8 MCH 29.1 MCHC 33.9 RDW 14.1 Plt Count 92 L MPV 11.8 Immature Gran % (Auto) 0.8 H Neut % (Auto) 93.8 H Lymph % (Auto) 1.1 L [place] % (Auto) 4.0 Eos % (Auto) 0.1 Baso % (Auto) 0.2 Lymph # (Auto) 0.2 L [place] # (Auto) 0.6 Eos # (Auto) 0.0 Baso # (Auto) 0.0 Abs Immat Gran (auto) 0.12 H Absolute Neuts (auto) 13.3 H Absolute Nucleated RBC 0.000 Nucleated RBC % (auto) 0.0 Smear Tech's Comments VERIFIED VBG pH VBG pCO2 VBG pO2 VBG HCO3 VBG O2 Saturation VBG Base Excess Anion Gap 17 Estim Creat Clear Calc 43.4 Estimated GFR 30 Random Glucose 178 H Lactic Acid 1.4 Calcium 7.1 L D Total Bilirubin 1.3 H AST 30 ALT 20 Alkaline Phosphatase 166 H Troponin I High Sens Total Protein 5.2 L D Albumin 2.6 L D Urine Color Urine Appearance Urine pH Ur Specific [place] Urine Protein Urine Glucose (UA) Urine Ketones Urine Blood Urine Nitrite Ur Leukocyte Esterase Urine RBC Urine WBC Urine WBC Clumps Ur Squamous Epith Cells Urine Bacteria Influenza Type A (PCR) Influenza Type B (PCR) RSV RNA Qual (PCR) SARS-CoV-2 RNA (RT-PCR) 10/16/21 10/16/21 10/16/21 09:54 09:54 09:59 MCV MCH MCHC RDW Plt Count MPV Immature Gran % (Auto) Neut % (Auto) Lymph % (Auto) [place] % (Auto) Eos % (Auto) Baso % (Auto) Lymph # (Auto) [place] # (Auto) Eos # (Auto) Baso # (Auto) Abs Immat Gran (auto) Absolute Neuts (auto) Absolute Nucleated RBC Nucleated RBC % (auto) Smear Tech's Comments VBG pH 7.33 VBG pCO2 23 VBG pO2 68 VBG HCO3 12 L VBG O2 Saturation 90.0 VBG Base Excess -11.1 Anion Gap Estim Creat Clear Calc Estimated GFR Random Glucose Lactic Acid Calcium Total Bilirubin AST ALT Alkaline Phosphatase Troponin I High Sens 4.3 Total Protein Albumin Urine Color Urine Appearance Urine pH Ur Specific [place] Urine Protein Urine Glucose (UA) Urine Ketones Urine Blood Urine Nitrite Ur Leukocyte Esterase Urine RBC Urine WBC Urine WBC Clumps Ur Squamous Epith Cells Urine Bacteria Influenza Type A (PCR) NEGATIVE Influenza Type B (PCR) NEGATIVE RSV RNA Qual (PCR) NEGATIVE SARS-CoV-2 RNA (RT-PCR) NEGATIVE 10/16/21 10:29 MCV MCH MCHC RDW Plt Count MPV Immature Gran % (Auto) Neut % (Auto) Lymph % (Auto) [place] % (Auto) Eos % (Auto) Baso % (Auto) Lymph # (Auto) [place] # (Auto) Eos # (Auto) Baso # (Auto) Abs Immat Gran (auto) Absolute Neuts (auto) Absolute Nucleated RBC Nucleated RBC % (auto) Smear Tech's Comments VBG pH VBG pCO2 VBG pO2 VBG HCO3 VBG O2 Saturation VBG Base Excess Anion Gap Estim Creat Clear Calc Estimated GFR Random Glucose Lactic Acid Calcium Total Bilirubin AST ALT Alkaline Phosphatase Troponin I High Sens Total Protein Albumin Urine Color YELLOW Urine Appearance CLOUDY Urine pH 5.5 Ur Specific [place] 1.025 Urine Protein 2+ H Urine Glucose (UA) >=1000 H Urine Ketones 15 Urine Blood 2+ H Urine Nitrite NEG Ur Leukocyte Esterase 2+ H Urine RBC 15-29 H Urine WBC 76-150 H Urine WBC Clumps NOTED Ur Squamous Epith Cells 2+ Urine Bacteria 3+ Influenza Type A (PCR) Influenza Type B (PCR) RSV RNA Qual (PCR) SARS-CoV-2 RNA (RT-PCR) Imaging Radiologist's Impressions: Impressions Chest X-Ray 10/16/21 09:40 IMPRESSION: No acute disease. Assessment and Plan (1) Obesity, morbid, BMI 40.0-49.9: Status: Acute (2) UTI (urinary tract infection): Status: Acute (3) Sepsis: Status: Acute (4) CRISPIN (acute kidney injury): Status: Acute (5) Hypokalemia: Status: Acute This is a 31-year-old female with history of diabetes, hypertension, hyperlipidemia, gastritis, bipolar disorder, hypothyroidism, severe autoimmune polyneuropathy treated at [facility] presents to the emergency department with 10 days of weakness found to have sepsis secondary to probable UTI Sepsis secondary to UTI meets sepsis criteria with leukocytosis 14.1, tachycardia HR 150s, fever 102 severe features with thrombocytopenia, platelets 92 sepsis focused exam completed Lactic acid 1.4 -continue maintenance IVF -IV ceftriaxone -follow UCx and BCx CRISPIN creatinine 1.96. Baseline .7-.8 r/t sepsis -check renal US -IVF -avoid nephrotoxins -Follow renal function closely Hypokalemia potassium 2.9 -replace IV and PO -check magnesium metabolic acidosis lactic acid 1.4 r/t CRISPIN/sepsis -follow BMP TCP r/t sepsis -follow CBC severe polyneuropathy thought to be autoimmune in nature treated at [facility] (see scanned notes for full details) treated with IVIG and rituximab -PT eval when medically stable -continue pregabalin for chronic neuruopathic pain Diabetes HbA1c in Oct 7.1 Jardiance nonformulary metformin on hold -will convert Tresiba to 14U Lantus -SSI, POCs, ada diet HLD continue statin Hypothyroidism continue synthroid Mood continue bupropion h/o gastritis/esophagitis continue PPI MO BMI 45.4 dvt ppx - lovenox code status - full code Quality Stroke Does the patient have a stroke diagnosis?: No VTE Prior VTE?: No VTE Risk Level:: Medical - moderate - high VTE Device Contraindication: N/A - Device Ordered VTE Drug Contraindication: N/A - Med Ordered
[2021-10-16] MEDS: Enoxaparin Sodium 40 MG/0.4 ML SYRINGE SUBCUT (14:40)
[2021-10-16] MEDS: Potassium Chloride Packet 20 MEQ PACKET 40 MEQ PO (14:42)
[2021-10-16] MEDS: Lactated Ringers 1,000 ML 125 ML IVCONT (14:51)
[2021-10-16] MEDS: cefTRIAXone sodium 1 GM in 0.9 % Sodium Chloride 50 ML IV (14:51)
[2021-10-16 14:54] LABS: Magnesium 1.9 mg/dL (1.6-2.6)
[2021-10-16] MEDS: Potassium Chloride/H20 10 MEQ/100 ML PIGGYBACK 100 MEQ IV ×2 (16:03→17:51)
[2021-10-16 17:04] LABS: Anion Gap 16 (12-20); Blood Urea Nitrogen 38 mg/dL (9-16); Calcium 7.7 mg/dL (8.4-10.2); Carbon Dioxide 16 mmol/L (22-29); Chloride 109 mmol/L (96-108); Creatinine Clr Calc Pharmacy 37.2; Estimated Glomerular Filt Rate 25; Glucose Random 156 mg/dL (60-115); Potassium 4.2 mmol/L (3.3-5.1); Sodium 137 mmol/L (135-145)
--- NOTE | 2021-10-16 17:45 | P.EN_ITS ---
Event Note Date of Service: 10/17/21 Event Note: This patient is seen and examined with APC. ?31-year-old female with history of diabetes, hypertension, hyperlipidemia, gastritis, bipolar disorder, hypothyroidism, severe autoimmune polyneurop[place] [facility] [place] to the emergency department with 10 days of weakness found to have sepsis secondary to probable UTI Lab imaging, EKG reviewed. lactic acid normal, hypokalemia Patient had elevated WBC count, CRISPIN creatinine of 2.2, EKG sinus tachycardia Physical exam and assessment and plan coordinated in APCs note, Agree with the plan in addition: sepsis secondary to UTI and also has CRISPIN: continue zosyn, urinary blood culture pending, renal ultrasound added severe polyneuropathy: treated with rituximab and [place]IG [place] [facility] [place] evaluation in the morning
[2021-10-16 19:17] LABS: Glucose, Whole Blood 138 mg/dL (60-115)
[2021-10-16 20:28] LABS: Glucose, Whole Blood 208 mg/dL (60-115)
[2021-10-16] MEDS: Pravastatin Sodium 20 MG TABLET PO (21:23)
[2021-10-16] MEDS: traZODone HCL 100 MG TABLET PO (21:23)
[2021-10-16] MEDS: Pregabalin 150 MG CAPSULE 300 MG PO (21:23)
[2021-10-16] MEDS: OXcarbazepine 150 MG TABLET 450 MG PO (21:24)
[2021-10-16] MEDS: Insulin Glargine,Hum.rec.anlog 100 UNIT/ML 10 ML VIAL 14 UNIT SUBCUT (21:40)
[2021-10-16] MEDS: Insulin Lispro 100 UNIT/ML 3 ML VIAL SUBCUT (21:40)
[2021-10-16] MEDS: Piperacillin Sodium/Tazobactam 3.375 GM in 0.9 % Sodium Chloride 50 ML IV (21:41)
[2021-10-16] MEDS: QUEtiapine Fumarate 200 MG TABLET PO (22:59)
[2021-10-16] MEDS: QUEtiapine Fumarate 400 MG TABLET PO (22:59)
[2021-10-17] MEDS: Piperacillin Sodium/Tazobactam 3.375 GM in 0.9 % Sodium Chloride 50 ML IV ×4 (02:22→22:09)
[2021-10-17] MEDS: Lactated Ringers 1,000 ML 125 ML IVCONT (03:09)
[2021-10-17 04:00] VITALS: BP 141/85; PULSE 123; RESP 18; TEMP 38.4; O2SAT 98
[2021-10-17] MEDS: Acetaminophen 325 MG TABLET 650 MG PO ×2 (04:42→19:13)
[2021-10-17 05:34] LABS: MANUAL DIFF FLAG NO
[2021-10-17 05:39] LABS: Basophils Percent Auto 0.3 % (0-2); Eosinophils Absolute Auto 0.1 X10*3/uL (0.0-0.4); Eosinophils Percent Auto 0.9 % (0-4); Hemoglobin 11.5 g/dl (12.0-16.0); Imm Gran Abs Auto 0.11 X10*3/uL (0.00-0.03); Imm Gran Pct Auto 0.9 % (0.0-0.4); Lymphocytes Absolute Auto 0.3 X10*3/uL (1.2-4.9); Lymphocytes Percent Auto 2.9 % (20-40); Mean Corpuscular HGB Conc 32.9 g/dl (31.0-35.0); Mean Corpuscular Hemoglobin 28.8 pg (27.0-33.0); Mean Corpuscular Volume 87.5 fL (80.0-98.0); Mean Platelet Volume 12.7 fL (9.4-12.3); Monocytes Absolute Auto 0.7 X10*3/uL (0.1-1.2); Monocytes Percent Auto 5.9 % (2-11); Neutrophils Absolute Auto 10.3 x10*3/uL (2.0-8.3); Neutrophils Percent Auto 89.1 % (45-73); Platelet Count 104 X10*3/uL (160-400); Red Cell Distribution Width 14.4 % (11.0-16.0); White Blood Count 11.6 X10*3/uL (4.8-10.8)
[2021-10-17 06:01] LABS: Anion Gap 15 (12-20); Blood Urea Nitrogen 38 mg/dL (9-16); Calcium 7.7 mg/dL (8.4-10.2); Carbon Dioxide 17 mmol/L (22-29); Chloride 111 mmol/L (96-108); Creatinine Clr Calc Pharmacy 39.5; Estimated Glomerular Filt Rate 27; Glucose Random 158 mg/dL (60-115); Potassium 3.6 mmol/L (3.3-5.1); Sodium 139 mmol/L (135-145)
[2021-10-17] MEDS: Levothyroxine Sodium 75 MCG TABLET PO (06:19)
[2021-10-17] MEDS: Omeprazole 20 MG CAPSULE.DR PO (06:19)
[2021-10-17 07:22] LABS: Glucose, Whole Blood 136 mg/dL (60-115)
[2021-10-17 07:47] VITALS: BP 118/73; PULSE 122; RESP 19; TEMP 37.1; O2SAT 96
--- NOTE | 2021-10-17 07:58 | P.PNIM_ITS ---
Subjective Subjective Date of Service: 10/17/21 Interval History: crispin . uti/sepsis /gram neg bacteremia Review of Systems Patient says that she feeling slightly better than yesterday denies any chest pain or abdominal pain or fever chills or cough or phlegm. Physical Exam Vital Signs: Vital Signs: Last Vital Signs Temp 98.7 F 10/17/21 07:47 Pulse 122 H 10/17/21 07:47 Resp 19 10/17/21 07:47 BP 118/73 10/17/21 07:47 Pulse Ox 96 10/17/21 07:47 BMI result Body Mass Index 45.3 Physical exam: Appearance: Alert.? Oriented X3.? not in distress.? Eyes: Pupils equal, round and reactive to light.? Sclera nonicteric.? ENT: Pharynx normal.? Moist mucous membranes. cvs: rr( mild tachy), [id number] res: clear to auscultation ,no rhonchii or wheezing abd: no rebound or guarding ,nt, bs present. ext pulses present , no cyanosis . : no cva tenderness neuro: axo3 , nonfocal. moves all ext Objective Data Active Medications Acetaminophen (Acetaminophen 325 Mg Tablet) 650 mg PO Q6H PRN PRN Reason: Pain, Mild (Pain Scale 1-3) Last Admin: 10/17/21 04:42 Dose: 650 mg Documented by: JOHN Dextrose (Dextrose 50 % 25 Gm/50 Ml Vial) 25 gm IVPUSH Q15M PRN; Protocol PRN Reason: per Hypoglycemia Standing Ord. Docusate Sodium (Docusate Sodium 100 Mg Capsule) 100 mg PO DAILY PRN PRN Reason: Constipation Enoxaparin Sodium (Enoxaparin Sodium 40 Mg/0.4 Ml Syringe) 40 mg SUBCUT Q24H RADHA Last Admin: 10/16/21 14:40 Dose: 40 mg Documented by: TRACY Glucose (Glucose Gel 15 Gm Gel..Gram.) 15 gm PO Q15M PRN; Protocol PRN Reason: per Hypoglycemia Standing Ord. Lactated Ringer's (Lr) 1,000 mls @ 150 mls/hr IVCONT .Q6H40M [facility] Last Admin: 10/17/21 03:09 Dose: 125 mls/hr Documented by: JOHN Piperacillin Sod/Tazobactam (Sod 3.375 gm/ Sodium Chloride) 50 mls @ 100 mls/hr IV Q6H [facility] Last Infusion: 10/17/21 03:02 Dose: 0 mls/hr Documented by: JOHN Insulin Glargine (Insulin Glargine,Hum.Rec.Anlog 100 Unit/Ml 10 Ml Vial) 14 unit SUBCUT BEDTIME [facility] Last Admin: 10/16/21 21:40 Dose: 14 unit Documented by: JOHN Insulin Human Lispro (Insulin Lispro 100 Unit/Ml 3 Ml Vial) 0 unit SUBCUT QIDACHS [facility]; Protocol Last Admin: 10/17/21 07:47 Dose: Not Given Documented by: HÉCTOR Non-Admin Reason: No Insulin Coverage Levothyroxine Sodium (Levothyroxine Sodium 75 Mcg Tablet) 75 mcg PO DAILY@0600 [facility] Last Admin: 10/17/21 06:19 Dose: 75 mcg Documented by: JOHN Magnesium Oxide (Magnesium Oxide 400 Mg Tablet) 400 mg PO DAILY [facility] Melatonin (Melatonin 3 Mg Tablet) 6 mg PO BEDTIME PRN PRN Reason: Insomnia Multivitamins/Vitamin C (Multivitamin Tablet) 1 tab PO DAILY [facility] Non-Formulary Medication (Bupropion Hcl) 100 mg PO QAM [facility] Omeprazole (Omeprazole 20 Mg Capsule.Dr) 20 mg PO DAILY@0630 [facility] Last Admin: 10/17/21 06:19 Dose: 20 mg Documented by: JOHN Ondansetron HCl (Ondansetron Hcl 4 Mg/2 Ml Vial) 4 mg IVPUSH Q8H PRN PRN Reason: Nausea and Vomiting Oxcarbazepine (Oxcarbazepine 150 Mg Tablet) 450 mg PO BID [facility] Last Admin: 10/16/21 21:24 Dose: 450 mg Documented by: JOHN Pharmacy Consult (Consult Rx Perform Med Rec) 1 each MISCELLANE ONCE PRN PRN Reason: Consult order Pravastatin Sodium (Pravastatin Sodium 20 Mg Tablet) 20 mg PO BEDTIME [facility] Last Admin: 10/16/21 21:23 Dose: 20 mg Documented by: JOHN Pregabalin (Pregabalin 150 Mg Capsule) 300 mg PO BID [facility] Last Admin: 10/16/21 21:23 Dose: 300 mg Documented by: JOHN Quetiapine Fumarate (Quetiapine Fumarate 400 Mg Tablet) 400 mg PO BEDTIME [facility] Last Admin: 10/16/21 22:59 Dose: 400 mg Documented by: JOHN Quetiapine Fumarate (Quetiapine Fumarate 200 Mg Tablet) 200 mg PO BEDTIME [facility] Last Admin: 10/16/21 22:59 Dose: 200 mg Documented by: JOHN Sodium Chloride (0.9 % Sodium Chloride Flush 3 Ml Syringe) 3 ml IVFLUSH QSHIFT [facility] Last Admin: 10/17/21 00:46 Dose: Not Given Documented by: JOHN Non-Admin Reason: IV Running Thiamine HCl (Thiamine Hcl 100 Mg Tablet) 100 mg PO DAILY [facility] Trazodone HCl (Trazodone Hcl 100 Mg Tablet) 100 mg PO BEDTIME [facility] Last Admin: 10/16/21 21:23 Dose: 100 mg Documented by: JOHN Labs CBC & Chem 7: 10/17/21 05:06 10/17/21 05:06 Labs: Laboratory Results - last 24 hr 10/16/21 10/16/21 10/16/21 09:54 09:54 09:54 MCV 85.8 MCH 29.1 MCHC 33.9 RDW 14.1 Plt Count 92 L MPV 11.8 Immature Gran % (Auto) 0.8 H Neut % (Auto) 93.8 H Lymph % (Auto) 1.1 L [place] % (Auto) 4.0 Eos % (Auto) 0.1 Baso % (Auto) 0.2 Lymph # (Auto) 0.2 L [place] # (Auto) 0.6 Eos # (Auto) 0.0 Baso # (Auto) 0.0 Abs Immat Gran (auto) 0.12 H Absolute Neuts (auto) 13.3 H Absolute Nucleated RBC 0.000 Nucleated RBC % (auto) 0.0 Smear Tech's Comments VERIFIED VBG pH VBG pCO2 VBG pO2 VBG HCO3 VBG O2 Saturation VBG Base Excess Anion Gap 17 Estim Creat Clear Calc 43.4 Estimated GFR 30 POC Glucose Random Glucose 178 H Lactic Acid 1.4 Calcium 7.1 L D Magnesium 1.9 Total Bilirubin 1.3 H AST 30 ALT 20 Alkaline Phosphatase 166 H Troponin I High Sens Total Protein 5.2 L D Albumin 2.6 L D Urine Color Urine Appearance Urine pH Ur Specific Metaline Urine Protein Urine Glucose (UA) Urine Ketones Urine Blood Urine Nitrite Ur Leukocyte Esterase Urine RBC Urine WBC Urine WBC Clumps Ur Squamous Epith Cells Urine Bacteria Influenza Type A (PCR) Influenza Type B (PCR) RSV RNA Qual (PCR) SARS-CoV-2 RNA (RT-PCR) 10/16/21 10/16/21 10/16/21 09:54 09:54 09:59 MCV MCH MCHC RDW Plt Count MPV Immature Gran % (Auto) Neut % (Auto) Lymph % (Auto) [place] % (Auto) Eos % (Auto) Baso % (Auto) Lymph # (Auto) [place] # (Auto) Eos # (Auto) Baso # (Auto) Abs Immat Gran (auto) Absolute Neuts (auto) Absolute Nucleated RBC Nucleated RBC % (auto) Smear Tech's Comments VBG pH 7.33 VBG pCO2 23 VBG pO2 68 VBG HCO3 12 L VBG O2 Saturation 90.0 VBG Base Excess -11.1 Anion Gap Estim Creat Clear Calc Estimated GFR POC Glucose Random Glucose Lactic Acid Calcium Magnesium Total Bilirubin AST ALT Alkaline Phosphatase Troponin I High Sens 4.3 Total Protein Albumin Urine Color Urine Appearance Urine pH Ur Specific Metaline Urine Protein Urine Glucose (UA) Urine Ketones Urine Blood Urine Nitrite Ur Leukocyte Esterase Urine RBC Urine WBC Urine WBC Clumps Ur Squamous Epith Cells Urine Bacteria Influenza Type A (PCR) NEGATIVE Influenza Type B (PCR) NEGATIVE RSV RNA Qual (PCR) NEGATIVE SARS-CoV-2 RNA (RT-PCR) NEGATIVE 10/16/21 10/16/21 10/16/21 10:29 16:12 19:13 MCV MCH MCHC RDW Plt Count MPV Immature Gran % (Auto) Neut % (Auto) Lymph % (Auto) [place] % (Auto) Eos % (Auto) Baso % (Auto) Lymph # (Auto) [place] # (Auto) Eos # (Auto) Baso # (Auto) Abs Immat Gran (auto) Absolute Neuts (auto) Absolute Nucleated RBC Nucleated RBC % (auto) Smear Tech's Comments VBG pH VBG pCO2 VBG pO2 VBG HCO3 VBG O2 Saturation VBG Base Excess Anion Gap 16 Estim Creat Clear Calc 37.2 Estimated GFR 25 POC Glucose 138 H Random Glucose 156 H Lactic Acid Calcium 7.7 L D Magnesium Total Bilirubin AST ALT Alkaline Phosphatase Troponin I High Sens Total Protein Albumin Urine Color YELLOW Urine Appearance CLOUDY Urine pH 5.5 Ur Specific [place] 1.025 Urine Protein 2+ H Urine Glucose (UA) >=1000 H Urine Ketones 15 Urine Blood 2+ H Urine Nitrite NEG Ur Leukocyte Esterase 2+ H Urine RBC 15-29 H Urine WBC 76-150 H Urine WBC Clumps NOTED Ur Squamous Epith Cells 2+ Urine Bacteria 3+ Influenza Type A (PCR) Influenza Type B (PCR) RSV RNA Qual (PCR) SARS-CoV-2 RNA (RT-PCR) 10/16/21 10/17/21 10/17/21 20:19 05:06 05:06 MCV 87.5 MCH 28.8 MCHC 32.9 RDW 14.4 Plt Count 104 L MPV 12.7 H Immature Gran % (Auto) 0.9 H Neut % (Auto) 89.1 H Lymph % (Auto) 2.9 L [place] % (Auto) 5.9 Eos % (Auto) 0.9 Baso % (Auto) 0.3 Lymph # (Auto) 0.3 L [place] # (Auto) 0.7 Eos # (Auto) 0.1 Baso # (Auto) 0.0 Abs Immat Gran (auto) 0.11 H Absolute Neuts (auto) 10.3 H Absolute Nucleated RBC 0.000 Nucleated RBC % (auto) 0.0 Smear Tech's Comments VBG pH VBG pCO2 VBG pO2 VBG HCO3 VBG O2 Saturation VBG Base Excess Anion Gap 15 Estim Creat Clear Calc 39.5 Estimated GFR 27 POC Glucose 208 H Random Glucose 158 H Lactic Acid Calcium 7.7 L Magnesium Total Bilirubin AST ALT Alkaline Phosphatase Troponin I High Sens Total Protein Albumin Urine Color Urine Appearance Urine pH Ur Specific Metaline Urine Protein Urine Glucose (UA) Urine Ketones Urine Blood Urine Nitrite Ur Leukocyte Esterase Urine RBC Urine WBC Urine WBC Clumps Ur Squamous Epith Cells Urine Bacteria Influenza Type A (PCR) Influenza Type B (PCR) RSV RNA Qual (PCR) SARS-CoV-2 RNA (RT-PCR) 10/17/21 07:17 MCV MCH MCHC RDW Plt Count MPV Immature Gran % (Auto) Neut % (Auto) Lymph % (Auto) [place] % (Auto) Eos % (Auto) Baso % (Auto) Lymph # (Auto) [place] # (Auto) Eos # (Auto) Baso # (Auto) Abs Immat Gran (auto) Absolute Neuts (auto) Absolute Nucleated RBC Nucleated RBC % (auto) Smear Tech's Comments VBG pH VBG pCO2 VBG pO2 VBG HCO3 VBG O2 Saturation VBG Base Excess Anion Gap Estim Creat Clear Calc Estimated GFR POC Glucose 136 H Random Glucose Lactic Acid Calcium Magnesium Total Bilirubin AST ALT Alkaline Phosphatase Troponin I High Sens Total Protein Albumin Urine Color Urine Appearance Urine pH Ur Specific Metaline Urine Protein Urine Glucose (UA) Urine Ketones Urine Blood Urine Nitrite Ur Leukocyte Esterase Urine RBC Urine WBC Urine WBC Clumps Ur Squamous Epith Cells Urine Bacteria Influenza Type A (PCR) Influenza Type B (PCR) RSV RNA Qual (PCR) SARS-CoV-2 RNA (RT-PCR) Microbiology Microbiology Results: Microbiology 10/16/21 09:54 Blood Culture - Preliminary Blood - Venous Prelim: GNR Gram Stain only 10/16/21 09:54 Blood Culture - Preliminary Blood - Venous Prelim: GNR Gram Stain only Assessment and Plan (1) CRISPIN (acute kidney injury): Status: Acute (2) Sepsis: Status: Acute Assessment and Plan: 31-year-old female with history of diabetes, hypertension, hyperlipidemia, gastritis, bipolar disorder, hypothyroidism, severe autoimmune polyneuropathy treated at [facility] presents to the emergency department with 10 days of weakness found to have sepsis secondary to probable UTI 1.Sepsis secondary to UTI/gram neg bactermia: meets sepsis criteria with leukocytosis 14.1, tachycardia and fever severe features with thrombocytopenia, platelets 104 continue maintenance IVf , iv zosyn follow UCx pending and BCx-gram neg bacteremia Id evaluation. 2.CRISPIN creatinine 2.1 abe same as yesterday. Baseline .7-.8 Renal ultrasound normal continue IV fluid adjusted, urine creatinine and microalbumin, Nephro evaluation. 3.Hypokalemia: Repleted and resolved. metabolic acidosis lactic acid 1.4 r/t CRISPIN/sepsis -follow BMP 4. Thrombocytopenia: probably related to sepsis. improving 5.severe polyneuropathy thought to be autoimmune in nature treated at [facility] (see scanned notes for full details) treated with IVIG and rituximab -PT eval when medically stable -continue pregabalin for chronic neuruopathic pain 5.Diabetes: fs 130-150 range HbA1c in Aug 7.1 Jardiance nonformulary metformin on hold continue lantus 14U Lantus SSI, POCs, ada diet 6.HLD:continue statin. 7.Hypothyroidism:continue synthroid. 8.Mood:continue bupropion 9.h/o gastritis/esophagitis continue PPI 10.MO:BMI 45.4 dvt ppx - lovenox Quality Stroke Does the patient have a stroke diagnosis?: No VTE Prior VTE?: No VTE Risk Level:: Medical - moderate - high VTE Device Contraindication: N/A - Device Ordered VTE Drug Contraindication: N/A - Med Ordered
[2021-10-17] MEDS: 0.9 % Sodium Chloride Flush 3 ML SYRINGE IVFLUSH ×2 (09:50→15:18)
[2021-10-17] MEDS: OXcarbazepine 150 MG TABLET 450 MG PO ×2 (09:51→22:22)
[2021-10-17] MEDS: Thiamine HCL 100 MG TABLET PO (09:51)
[2021-10-17] MEDS: Multivitamin TABLET 1 TAB PO (09:51)
[2021-10-17] MEDS: Magnesium Oxide 400 MG TABLET PO (09:51)
[2021-10-17] MEDS: Pregabalin 150 MG CAPSULE 300 MG PO ×2 (09:51→22:22)
--- NOTE | 2021-10-17 10:30 | P.CONNP_ITS ---
History of Present Illness Reason for Consult Consult date: 10/17/21 Chief Complaint Chief complaint: FEVER, WEAKNESS, AMS History of Present Illness Narrative: ?31 year history diabetes, hypertension, hyperlipidemia, bipolar disorder, and severe autoimmune polyneuropathy who presents to the emergency department with 10 days of increased weakness and chills.? History was obtained from the patient as well as her father at the bedside. For the past 10 days she has had generalized weakness with associated chills. She has a history of aut oimmune neuropathy but is typically able to ambulate with a walker or cane,? She was recently treated with amoxicillin for a dental abscess and has plans for outpatient tooth extraction.? Over the past couple of days she has had fever and dysuria.? She denies any abdominal pain, nausea, vomiting.? She has no shortness of breath no cough.? On arrival to the emergency department she had fever 102, w as noted to be tachycardic.? Lab work was significant for multiple abnormalities including leukocytosis of 14,000, CRISPIN with creatinine of 1.96, hypokalemia with potassium of 2.9, metabolic acidosis with bicarb of 14.? Chest x-ray showed no acute abnormalities.? Urinalysis was positive for leukocyte esterase, wbc's, rbc's and bacteria concerning for UTI.? She was started on broad-spectrum antibiotics with IV vancomycin and Zosyn and the decision was made to her to the hospital for further management of sepsis. H/o Essentiallly normal renal function with a creatinine of 0.8 mg in February 2021 Currently at 1.9mg/L Sonogram - no obstruction Review of Systems Review of Systems Yes all other systems are reviewed and are negative Constitutional: Reports as per HPI, Reports fatigue and Reports weakness Reports system reviewed and no additional complaints, except as documented Cardiovascular: Denies chest pain and Denies dyspnea Respiratory: Denies cough and Denies dyspnea Gastrointestinal: Reports no additional gastrointestinal complaints and Denies abdominal pain Musculoskeletal: Reports no additional musculoskeletal complaints Reports weakness Endocrine: Reports fatigue PMFSH Past Medical History Medical History Acquired hypothyroidism Bipolar disorder Blurred vision, bilateral Diabetes mellitus with hyperglycemia Elevated fasting blood sugar Elevated vitamin B12 level Esophagitis with gastritis Essential hypertension Gastric paresis Hyperlipidemia Muscle weakness Newly diagnosed diabetes Obesity due to excess calories Peripheral neuropathy Vitamin D deficiency Functional capacity: uses cane/walker Family History Family History Other Adopted Surgical History Surgical History Hx of section Hx of tooth extraction Social History Social History (Updated 10/16/21 @ 15:15 by MELANY Lott) Household Members: Family Housing: House Do you presently have visiting nurse or other home services: No Alcohol intake: never Patient Tobacco Use Status: Former Tobacco user Use of substances other than those prescribed or required for medical reasons: No Currently Displaying Signs/Symptoms of Drug Intoxication Withdrawal: No Have you been hit, kicked, punched, or otherwise hurt by someone within the past year? If so, by whom?: No Do you feel safe in your current relationship?: No Current Relationship Is there a partner from a previous relationship who is making you feel unsafe now?: No Are you made to feel afraid or neglected: No Advance Directives: No Advance Directives Information Provided: Yes Do you have thoughts of harming others: None Do you have a plan to hurt others: No Plan Recently lost weight without trying: Unsure Nutrition Risks: No Nutritional Risk Patient : No : No Poor oral hygiene: No service: No Gender identity: Female Meds Allergies Allergy/AdvReac Type Severity Reaction Status Date / Time latex Allergy Unknown rash Verified 10/11/21 16:15 metoclopramide [From REGLAN] AdvReac Unknown INTERACTS Verified 10/11/21 16:15 W/ SEROQUEL Active Medications: Current Medications Acetaminophen (Acetaminophen 325 Mg Tablet) 650 mg PO Q6H PRN PRN Reason: Pain, Mild (Pain Scale 1-3) Last Admin: 10/17/21 04:42 Dose: 650 mg Documented by: Dextrose (Dextrose 50 % 25 Gm/50 Ml Vial) 25 gm IVPUSH Q15M PRN; Protocol PRN Reason: per Hypoglycemia Standing Ord. Docusate Sodium (Docusate Sodium 100 Mg Capsule) 100 mg PO DAILY PRN PRN Reason: Constipation Enoxaparin Sodium (Enoxaparin Sodium 40 Mg/0.4 Ml Syringe) 40 mg SUBCUT Q24H [facility] Last Admin: 10/16/21 14:40 Dose: 40 mg Documented by: Glucose (Glucose Gel 15 Gm Gel..Gram.) 15 gm PO Q15M PRN; Protocol PRN Reason: per Hypoglycemia Standing Ord. Lactated Ringer's (Lr) 1,000 mls @ 150 mls/hr IVCONT .Q6H40M [facility] Last Admin: 10/17/21 03:09 Dose: 125 mls/hr Documented by: Piperacillin Sod/Tazobactam (Sod 3.375 gm/ Sodium Chloride) 50 mls @ 100 mls/hr IV Q6H [facility] Last Admin: 10/17/21 09:50 Dose: 100 mls/hr Documented by: Insulin Glargine (Insulin Glargine,Hum.Rec.Anlog 100 Unit/Ml 10 Ml Vial) 14 unit SUBCUT BEDTIME [facility] Last Admin: 10/16/21 21:40 Dose: 14 unit Documented by: Insulin Human Lispro (Insulin Lispro 100 Unit/Ml 3 Ml Vial) 0 unit SUBCUT QIDACHS [facility]; Protocol Last Admin: 10/17/21 07:47 Dose: Not Given Documented by: Levothyroxine Sodium (Levothyroxine Sodium 75 Mcg Tablet) 75 mcg PO DAILY@0600 [facility] Last Admin: 10/17/21 06:19 Dose: 75 mcg Documented by: Magnesium Oxide (Magnesium Oxide 400 Mg Tablet) 400 mg PO DAILY [facility] Last Admin: 10/17/21 09:51 Dose: 400 mg Documented by: Melatonin (Melatonin 3 Mg Tablet) 6 mg PO BEDTIME PRN PRN Reason: Insomnia Multivitamins/Vitamin C (Multivitamin Tablet) 1 tab PO DAILY [facility] Last Admin: 10/17/21 09:51 Dose: 1 tab Documented by: Non-Formulary Medication (Bupropion Hcl) 100 mg PO QAM [facility] Omeprazole (Omeprazole 20 Mg Capsule.Dr) 20 mg PO DAILY@0630 [facility] Last Admin: 10/17/21 06:19 Dose: 20 mg Documented by: Ondansetron HCl (Ondansetron Hcl 4 Mg/2 Ml Vial) 4 mg IVPUSH Q8H PRN PRN Reason: Nausea and Vomiting Oxcarbazepine (Oxcarbazepine 150 Mg Tablet) 450 mg PO BID [facility] Last Admin: 10/17/21 09:51 Dose: 450 mg Documented by: Pharmacy Consult (Consult Rx Perform Med Rec) 1 each MISCELLANE ONCE PRN PRN Reason: Consult order Pravastatin Sodium (Pravastatin Sodium 20 Mg Tablet) 20 mg PO BEDTIME [facility] Last Admin: 10/16/21 21:23 Dose: 20 mg Documented by: Pregabalin (Pregabalin 150 Mg Capsule) 300 mg PO BID [facility] Last Admin: 10/17/21 09:51 Dose: 300 mg Documented by: Quetiapine Fumarate (Quetiapine Fumarate 400 Mg Tablet) 400 mg PO BEDTIME [facility] Last Admin: 10/16/21 22:59 Dose: 400 mg Documented by: Quetiapine Fumarate (Quetiapine Fumarate 200 Mg Tablet) 200 mg PO BEDTIME [facility] Last Admin: 10/16/21 22:59 Dose: 200 mg Documented by: Sodium Chloride (0.9 % Sodium Chloride Flush 3 Ml Syringe) 3 ml IVFLUSH QSHIFT [facility] Last Admin: 10/17/21 09:50 Dose: 3 ml Documented by: Thiamine HCl (Thiamine Hcl 100 Mg Tablet) 100 mg PO DAILY [facility] Last Admin: 10/17/21 09:51 Dose: 100 mg Documented by: Trazodone HCl (Trazodone Hcl 100 Mg Tablet) 100 mg PO BEDTIME [facility] Last Admin: 10/16/21 21:23 Dose: 100 mg Documented by: Home Medications Medication Instructions Recorded Confirmed Last Taken Type bupropion HCl 100 mg tablet,12 hr 100 mg PO QAM 11/30/20 10/16/21 10/15/21 History sustained-release trazodone 100 mg tablet 100 mg PO BEDTIME 11/30/20 10/16/21 10/15/21 History cranberry 400 mg capsule 450 mg PO DAILY cap 03/22/21 10/16/21 10/15/21 History melatonin 3 mg tablet 6 mg PO DAILY 03/22/21 10/16/21 10/15/21 History multivitamin 1 tab PO DAILY 03/22/21 10/16/21 10/15/21 History pregabalin 300 mg capsule 300 mg PO BID cap 05/10/21 10/16/21 10/15/21 History medroxyprogesterone 150 mg/mL 150 mg IM [id number] 05/23/21 10/16/21 08/10/21 History intramuscular suspension (Depo-Provera) thiamine HCl (vitamin B1) 100 mg 100 mg PO DAILY 06/09/21 10/16/21 10/15/21 History tablet rituximab 10 mg/mL IV [id number] 08/11/21 09/21/21 Unknown History concentrate,intravenous oxcarbazepine 150 mg tablet 450 mg PO BID tab 08/18/21 10/16/21 10/15/21 History immune globulin,gamma(IgG)slra 10 ml IV Q4W 10/11/21 09/27/21 History % intravenous solution cholecalciferol (vitamin D3) 1,250 1,250 mcg PO MO 10/16/21 10/16/21 10/15/21 History mcg (50,000 unit) capsule quetiapine 200 mg tablet 1 tab PO BEDTIME 10/16/21 10/16/21 10/15/21 History quetiapine 400 mg tablet 1 tab PO BEDTIME 10/16/21 10/16/21 10/15/21 History Physical Exam Vital Signs: Last Vital Signs Temp 98.7 F 10/17/21 07:47 Pulse 122 H 10/17/21 07:47 Resp 19 10/17/21 07:47 BP 118/73 10/17/21 07:47 Pulse Ox 96 10/17/21 07:47 BMI result Body Mass Index 45.3 Const General: cooperative, comfortable, no acute distress, alert, awake and Cushingoid facies Nutritional Appearance: obese and overweight Orientation/consciousness: patient oriented x3 HENMT Other: examination the head eyes ears nose and throat is within normal limits Head: Yes normocephalic and Yes atraumatic General nose exam: Normal external nose present Face and sinus: Yes normal facial exam Mouth: Normal oral and palatal mucosa present Eyes Sclerae: sclerae normal Pupils: Equal, round and reactive pupils present Neck Neck: Yes normal visual inspection and Yes full ROM Chest Chest palpation & inspection: normal inspection of the chest Resp Effort & Inspection: normal respiratory effort and no respiratory distress Auscultation: clear to auscultation bilaterally and diminished lung sounds Cardio Jugular venous distension: no JVD Rate: tachycardic Rhythm: regular rhythm Heart sounds: no murmurs GI Inspection: Yes normal to inspection Palpation (GI): Soft to palpation and nontender Skin General skin exam: no rashes or lesions noted Neuro General: patient oriented x3 Cranial nerves: Yes CN's II-XII intact bilaterally, Yes Equal, round and reactive pupils present and Yes Bilaterally intact EOM present Extrem Other: able to move all four extremities spontaneously; no leg edema Results Lab Results Result Diagrams: 10/18/21 06:12 10/18/21 06:12 Lab results: Chemistry 10/16/21 10/16/21 10/17/21 09:54 16:12 05:06 Sodium 138 137 139 Potassium 2.9 L D 4.2 D 3.6 Carbon Dioxide 14 L 16 L 17 L BUN 34 H 38 H 38 H Creatinine 1.96 H 2.28 H 2.15 H Calcium 7.1 L D 7.7 L D 7.7 L Hematology 10/16/21 10/17/21 09:54 05:06 WBC 14.1 H 11.6 H Hgb 11.3 L 11.5 L Plt Count 92 L 104 L Urinalysis 10/16/21 10:29 Urine Color YELLOW Urine Appearance CLOUDY Urine pH 5.5 Ur Specific [place] 1.025 Urine Protein 2+ H Urine Glucose (UA) >=1000 H Urine Ketones 15 Urine Blood 2+ H Urine Nitrite NEG Ur Leukocyte Esterase 2+ H Urine RBC 15-29 H Urine WBC 76-150 H Ur Squamous Epith Cells 2+ Assessment and Plan (1) CRISPIN (acute kidney injury): Status: Acute (2) Obesity, morbid, BMI 40.0-49.9: Status: Acute (3) UTI (urinary tract infection): Status: Acute (4) Sepsis: Status: Acute (5) Hypokalemia: Status: Acute CRISPIN with hypokalemia and acidosis in a diabetic woman with polyneuropathy and UTI/Sepsis DDX ATN No obstruction r/o AGN and AiN Suggest: IV Hydration with LR Keep I > O Replace K as needed Avoid hypotension Check urine Na/Cr/protein Procedures Date of Service Date of Service: 10/17/21
[2021-10-17 10:42] LABS: Creatinine Urine 60.92 mg/dL
[2021-10-17 11:06] VITALS: BP 102/70; PULSE 112; RESP 19; TEMP 36.2; O2SAT 96
[2021-10-17 11:16] LABS: Glucose, Whole Blood 152 mg/dL (60-115)
[2021-10-17] MEDS: buPROPion HCl XL 150 MG TAB.ER.24H PO (11:57)
[2021-10-17] MEDS: Insulin Lispro 100 UNIT/ML 3 ML VIAL SUBCUT ×2 (11:57→22:23)
[2021-10-17] MEDS: Lactated Ringers 1,000 ML 150 ML IVCONT ×2 (14:13→22:25)
[2021-10-17] MEDS: Enoxaparin Sodium 40 MG/0.4 ML SYRINGE SUBCUT (14:13)
[2021-10-17 15:01] VITALS: BP 131/59; PULSE 120; RESP 20; TEMP 36.1; O2SAT 96
--- NOTE | 2021-10-17 15:25 | MHC.CM.PN ---
met with pt who reports having no services prior to admisison pt lives with her parents [place] her 2 children she will have her own transportaion home when dcd and does not anticapate needing servceis when dcd
[2021-10-17 16:00] LABS: Glucose, Whole Blood 147 mg/dL (60-115)
[2021-10-17 19:11] VITALS: BP 129/101; PULSE 132; RESP 20; TEMP 38.1; O2SAT 98
[2021-10-17 19:35] LABS: Glucose, Whole Blood 173 mg/dL (60-115)
[2021-10-17] MEDS: QUEtiapine Fumarate 400 MG TABLET PO (22:21)
[2021-10-17] MEDS: Pravastatin Sodium 20 MG TABLET PO (22:22)
[2021-10-17] MEDS: QUEtiapine Fumarate 200 MG TABLET PO (22:22)
[2021-10-17] MEDS: traZODone HCL 100 MG TABLET PO (22:22)
[2021-10-17] MEDS: Insulin Glargine,Hum.rec.anlog 100 UNIT/ML 10 ML VIAL 14 UNIT SUBCUT (22:23)
[2021-10-17 23:10] VITALS: BP 100/61; PULSE 120; RESP 20; TEMP 36.9; O2SAT 95
[2021-10-18] MEDS: Piperacillin Sodium/Tazobactam 3.375 GM in 0.9 % Sodium Chloride 50 ML IV ×4 (02:55→21:10)
[2021-10-18 03:09] VITALS: BP 134/75; PULSE 116; RESP 16; TEMP 37.2; O2SAT 95
[2021-10-18] MEDS: Omeprazole 20 MG CAPSULE.DR PO (06:16)
[2021-10-18] MEDS: Levothyroxine Sodium 75 MCG TABLET PO (06:16)
[2021-10-18] MEDS: Lactated Ringers 1,000 ML 150 ML IVCONT ×3 (06:17→21:12)
[2021-10-18 06:19] LABS: MANUAL DIFF FLAG NO
[2021-10-18 06:22] LABS: Basophils Percent Auto 0.2 % (0-2); Eosinophils Absolute Auto 0.2 X10*3/uL (0.0-0.4); Eosinophils Percent Auto 1.9 % (0-4); Hematocrit 33.4 % (37.0-47.0); Hemoglobin 11.4 g/dl (12.0-16.0); Imm Gran Abs Auto 0.13 X10*3/uL (0.00-0.03); Imm Gran Pct Auto 1.5 % (0.0-0.4); Lymphocytes Absolute Auto 0.6 X10*3/uL (1.2-4.9); Lymphocytes Percent Auto 7.3 % (20-40); Mean Corpuscular HGB Conc 34.1 g/dl (31.0-35.0); Mean Platelet Volume 12.7 fL (9.4-12.3); Monocytes Absolute Auto 0.6 X10*3/uL (0.1-1.2); Monocytes Percent Auto 7.4 % (2-11); Neutrophils Percent Auto 81.7 % (45-73); Platelet Count 166 X10*3/uL (160-400); Red Blood Count 3.93 X10*6/uL (4.20-5.50); Red Cell Distribution Width 14.7 % (11.0-16.0); White Blood Count 8.6 X10*3/uL (4.8-10.8)
[2021-10-18 06:44] LABS: Anion Gap 14 (12-20); Blood Urea Nitrogen 31 mg/dL (9-16); Carbon Dioxide 17 mmol/L (22-29); Chloride 115 mmol/L (96-108); Creatinine Clr Calc Pharmacy 43.2; Estimated Glomerular Filt Rate 29; Glucose Random 113 mg/dL (60-115); Potassium 3.6 mmol/L (3.3-5.1); Sodium 142 mmol/L (135-145)
[2021-10-18 07:15] LABS: Glucose, Whole Blood 94 mg/dL (60-115)
[2021-10-18 07:16] VITALS: BP 121/59; PULSE 120; RESP 16; TEMP 36.4; O2SAT 96
--- NOTE | 2021-10-18 09:32 | PM.PNNEP ---
Subjective Subjective Date of Service: 10/18/21 Interval history: Events noted Feeling a little better Physical Exam Vital Signs: Vital Signs: Last Vital Signs Temp 97.5 F 10/18/21 07:16 Pulse 120 H 10/18/21 07:16 Resp 16 10/18/21 07:16 BP 121/59 L 10/18/21 07:16 Pulse Ox 96 10/18/21 07:16 BMI result Body Mass Index 45.3 Const: General: cooperative, comfortable, no acute distress, alert, awake and Cushingoid facies Nutritional Appearance: obese and overweight Orientation/consciousness: patient oriented x3 HENMT: Other: examination the head eyes ears nose and throat is within normal limits Head: Yes normocephalic and Yes atraumatic General nose exam: Normal external nose present Face and sinus: Yes normal facial exam Mouth: Normal oral and palatal mucosa present Eyes: Sclerae: sclerae normal Pupils: Equal, round and reactive pupils present Neck: Neck: Yes normal visual inspection and Yes full ROM Chest: Chest palpation & inspection: normal inspection of the chest Resp: Effort & Inspection: normal respiratory effort and no respiratory distress Auscultation: clear to auscultation bilaterally and diminished lung sounds Cardio: Jugular venous distension: no JVD Rate: tachycardic Rhythm: regular rhythm Heart sounds: no murmurs GI: Inspection: Yes normal to inspection Palpation (GI): Soft to palpation and nontender Skin: General skin exam: no rashes or lesions noted Neuro: General: patient oriented x3 Cranial nerves: Yes CN's II-XII intact bilaterally, Yes Equal, round and reactive pupils present and Yes Bilaterally intact EOM present Extrem: Other: able to move all four extremities spontaneously; no leg edema Objective Data Labs CBC & Chem 7: 10/18/21 06:12 10/18/21 06:12 Labs: Laboratory Results - last 24 hr 10/17/21 10/17/21 10/17/21 10:16 11:08 15:56 WBC RBC Hgb Hct MCV MCH MCHC RDW Plt Count MPV Immature Gran % (Auto) Neut % (Auto) Lymph % (Auto) [place] % (Auto) Eos % (Auto) Baso % (Auto) Lymph # (Auto) [place] # (Auto) Eos # (Auto) Baso # (Auto) Abs Immat Gran (auto) Absolute Neuts (auto) Absolute Nucleated RBC Nucleated RBC % (auto) Sodium Potassium Chloride Carbon Dioxide Anion Gap BUN Creatinine Estim Creat Clear Calc Estimated GFR POC Glucose 152 H 147 H Random Glucose Calcium Urine Creatinine 60.92 10/17/21 10/18/21 10/18/21 19:32 06:12 06:12 WBC 8.6 Cancelled RBC 3.93 L Cancelled Hgb 11.4 L Cancelled Hct 33.4 L Cancelled MCV 85.0 Cancelled MCH 29.0 Cancelled MCHC 34.1 Cancelled RDW 14.7 Cancelled Plt Count 166 D Cancelled MPV 12.7 H Cancelled Immature Gran % (Auto) 1.5 H Neut % (Auto) 81.7 H Lymph % (Auto) 7.3 L [place] % (Auto) 7.4 Eos % (Auto) 1.9 Baso % (Auto) 0.2 Lymph # (Auto) 0.6 L [place] # (Auto) 0.6 Eos # (Auto) 0.2 Baso # (Auto) 0.0 Abs Immat Gran (auto) 0.13 H Absolute Neuts (auto) 7.0 Absolute Nucleated RBC 0.000 Cancelled Nucleated RBC % (auto) 0.0 Cancelled Sodium Potassium Chloride Carbon Dioxide Anion Gap BUN Creatinine Estim Creat Clear Calc Estimated GFR POC Glucose 173 H Random Glucose Calcium Urine Creatinine 10/18/21 10/18/21 06:12 07:10 WBC RBC Hgb Hct MCV MCH MCHC RDW Plt Count MPV Immature Gran % (Auto) Neut % (Auto) Lymph % (Auto) [place] % (Auto) Eos % (Auto) Baso % (Auto) Lymph # (Auto) [place] # (Auto) Eos # (Auto) Baso # (Auto) Abs Immat Gran (auto) Absolute Neuts (auto) Absolute Nucleated RBC Nucleated RBC % (auto) Sodium 142 Potassium 3.6 Chloride 115 H Carbon Dioxide 17 L Anion Gap 14 BUN 31 H Creatinine 1.97 H Estim Creat Clear Calc 43.2 Estimated GFR 29 POC Glucose 94 Random Glucose 113 Calcium 8.0 L Urine Creatinine Microbiology Microbiology Results: Microbiology 10/16/21 Unknown Urine clean catch - Urine [place] Urine Culture - Preliminary Gram negative shayla 10/16/21 09:54 Blood - Venous Blood Culture - Preliminary Escherichia coli 10/16/21 09:54 Blood - Venous Blood Culture - Preliminary Escherichia coli Procedures Date of Service Date of Service: 10/18/21 Assessment & Plan Assessment and plan (1) CRISPIN (acute kidney injury): Status: Acute (2) Obesity, morbid, BMI 40.0-49.9: Status: Acute (3) UTI (urinary tract infection): Status: Acute (4) Sepsis: Status: Acute (5) Hypokalemia: Status: Acute Assessment and Plan: CRISPIN with hypokalemia and acidosis in a diabetic woman with polyneuropathy and UTI/Sepsis DDX ATN No obstruction r/o AGN and AiN Cr is improving with hydration Suggest: IV Hydration with LR Keep I > O Replace K as needed Avoid hypotension Check urine Na/Cr/protein Time Spent With Patient Time: Total time spent is greater than 50% in coordination of care (as documented) at patient's floor/unit and/or counseling patient: Progress Note: Quality Stroke Does the patient have a stroke diagnosis?: No
[2021-10-18] MEDS: Pregabalin 150 MG CAPSULE 300 MG PO ×2 (10:21→21:11)
[2021-10-18] MEDS: OXcarbazepine 150 MG TABLET 450 MG PO ×2 (10:21→21:11)
[2021-10-18] MEDS: buPROPion HCl XL 150 MG TAB.ER.24H PO (10:21)
[2021-10-18] MEDS: Multivitamin TABLET 1 TAB PO (10:22)
[2021-10-18] MEDS: Thiamine HCL 100 MG TABLET PO (10:22)
[2021-10-18] MEDS: Magnesium Oxide 400 MG TABLET PO (10:22)
[2021-10-18] MEDS: 0.9 % Sodium Chloride Flush 3 ML SYRINGE IVFLUSH ×3 (10:22→21:12)
[2021-10-18 11:34] LABS: Glucose, Whole Blood 114 mg/dL (60-115)
[2021-10-18 11:42] VITALS: BP 125/71; PULSE 112; RESP 18; TEMP 36.7; O2SAT 97
[2021-10-18] MEDS: Enoxaparin Sodium 40 MG/0.4 ML SYRINGE SUBCUT (14:08)
[2021-10-18 15:15] VITALS: BP 113/60; PULSE 116; RESP 22; TEMP 37.2; O2SAT 99
[2021-10-18 16:13] LABS: Glucose, Whole Blood 105 mg/dL (60-115)
--- NOTE | 2021-10-18 17:04 | P.PNIM_ITS ---
Subjective Subjective Date of Service: 10/18/21 Interval History: f/u on crispin, uti feeling better Review of Systems no fever no abdominal pain Physical Exam Vital Signs: Vital Signs: Last Vital Signs Temp 98.9 F 10/18/21 15:15 Pulse 116 H 10/18/21 15:15 Resp 22 H 10/18/21 15:15 BP 113/60 10/18/21 15:15 Pulse Ox 99 10/18/21 15:15 BMI result Body Mass Index 45.3 General: AO X 3, no acute distress Resp: CTA bilateral CVS: S1,S2,RRR GI: +BS, NT, no distention Skin: No rash Neuro: motor grossly intact Psych: appropriate affect Objective Data Active Medications Acetaminophen (Acetaminophen 325 Mg Tablet) 650 mg PO Q6H PRN PRN Reason: Pain, Mild (Pain Scale 1-3) Last Admin: 10/17/21 19:13 Dose: 650 mg Documented by: HÉCTOR Bupropion HCl (Bupropion Hcl Xl 150 Mg Tab.Er.24h) 150 mg PO DAILY [facility] Last Admin: 10/18/21 10:21 Dose: 150 mg Documented by: HÉCTOR Dextrose (Dextrose 50 % 25 Gm/50 Ml Vial) 25 gm IVPUSH Q15M PRN; Protocol PRN Reason: per Hypoglycemia Standing Ord. Docusate Sodium (Docusate Sodium 100 Mg Capsule) 100 mg PO DAILY PRN PRN Reason: Constipation Enoxaparin Sodium (Enoxaparin Sodium 40 Mg/0.4 Ml Syringe) 40 mg SUBCUT Q24H [facility] Last Admin: 10/18/21 14:08 Dose: 40 mg Documented by: HÉCTOR Glucose (Glucose Gel 15 Gm Gel..Gram.) 15 gm PO Q15M PRN; Protocol PRN Reason: per Hypoglycemia Standing Ord. Lactated Ringer's (Lr) 1,000 mls @ 150 mls/hr IVCONT .Q6H40M [facility] Last Admin: 10/18/21 14:08 Dose: 150 mls/hr Documented by: HÉCTOR Piperacillin Sod/Tazobactam (Sod 3.375 gm/ Sodium Chloride) 50 mls @ 100 mls/hr IV Q6H [facility] Last Infusion: 10/18/21 15:01 Dose: 0 mls/hr Documented by: HÉCTOR Insulin Glargine (Insulin Glargine,Hum.Rec.Anlog 100 Unit/Ml 10 Ml Vial) 14 unit SUBCUT BEDTIME [facility] Last Admin: 10/17/21 22:23 Dose: 14 unit Documented by: JOHN Insulin Human Lispro (Insulin Lispro 100 Unit/Ml 3 Ml Vial) 0 unit SUBCUT QIDACHS [facility]; Protocol Last Admin: 10/18/21 16:15 Dose: Not Given Documented by: HÉCTOR Non-Admin Reason: No Insulin Coverage Levothyroxine Sodium (Levothyroxine Sodium 75 Mcg Tablet) 75 mcg PO DAILY@0600 [facility] Last Admin: 10/18/21 06:16 Dose: 75 mcg Documented by: JOHN Magnesium Oxide (Magnesium Oxide 400 Mg Tablet) 400 mg PO DAILY [facility] Last Admin: 10/18/21 10:22 Dose: 400 mg Documented by: HÉCTOR Melatonin (Melatonin 3 Mg Tablet) 6 mg PO BEDTIME PRN PRN Reason: Insomnia Multivitamins/Vitamin C (Multivitamin Tablet) 1 tab PO DAILY [facility] Last Admin: 10/18/21 10:22 Dose: 1 tab Documented by: HÉCTOR Omeprazole (Omeprazole 20 Mg Capsule.) 20 mg PO DAILY@0630 [facility] Last Admin: 10/18/21 06:16 Dose: 20 mg Documented by: JOHN Ondansetron HCl (Ondansetron Hcl 4 Mg/2 Ml Vial) 4 mg IVPUSH Q8H PRN PRN Reason: Nausea and Vomiting Oxcarbazepine (Oxcarbazepine 150 Mg Tablet) 450 mg PO BID [facility] Last Admin: 10/18/21 10:21 Dose: 450 mg Documented by: HÉCTOR Pharmacy Consult (Consult Rx Perform Med Rec) 1 each MISCELLANE ONCE PRN PRN Reason: Consult order Pravastatin Sodium (Pravastatin Sodium 20 Mg Tablet) 20 mg PO BEDTIME [facility] Last Admin: 10/17/21 22:22 Dose: 20 mg Documented by: JOHN Pregabalin (Pregabalin 150 Mg Capsule) 300 mg PO BID [facility] Last Admin: 10/18/21 10:21 Dose: 300 mg Documented by: HÉCTOR Quetiapine Fumarate (Quetiapine Fumarate 400 Mg Tablet) 400 mg PO BEDTIME [facility] Last Admin: 10/17/21 22:21 Dose: 400 mg Documented by: JOHN Quetiapine Fumarate (Quetiapine Fumarate 200 Mg Tablet) 200 mg PO BEDTIME [facility] Last Admin: 10/17/21 22:22 Dose: 200 mg Documented by: JOHN Sodium Chloride (0.9 % Sodium Chloride Flush 3 Ml Syringe) 3 ml IVFLUSH QSHIFT [facility] Last Admin: 10/18/21 10:22 Dose: 3 ml Documented by: HÉCTOR Thiamine HCl (Thiamine Hcl 100 Mg Tablet) 100 mg PO DAILY [facility] Last Admin: 10/18/21 10:22 Dose: 100 mg Documented by: HÉCTOR Trazodone HCl (Trazodone Hcl 100 Mg Tablet) 100 mg PO BEDTIME [facility] Last Admin: 10/17/21 22:22 Dose: 100 mg Documented by: JOHN Labs CBC & Chem 7: 10/18/21 06:12 10/18/21 06:12 Labs: Laboratory Results - last 24 hr 10/17/21 10/18/21 10/18/21 19:32 06:12 06:12 MCV 85.0 Cancelled MCH 29.0 Cancelled MCHC 34.1 Cancelled RDW 14.7 Cancelled Plt Count 166 D Cancelled MPV 12.7 H Cancelled Immature Gran % (Auto) 1.5 H Neut % (Auto) 81.7 H Lymph % (Auto) 7.3 L [place] % (Auto) 7.4 Eos % (Auto) 1.9 Baso % (Auto) 0.2 Lymph # (Auto) 0.6 L [place] # (Auto) 0.6 Eos # (Auto) 0.2 Baso # (Auto) 0.0 Abs Immat Gran (auto) 0.13 H Absolute Neuts (auto) 7.0 Absolute Nucleated RBC 0.000 Cancelled Nucleated RBC % (auto) 0.0 Cancelled Anion Gap Estim Creat Clear Calc Estimated GFR POC Glucose 173 H Random Glucose Calcium 10/18/21 10/18/21 10/18/21 06:12 07:10 11:21 MCV MCH MCHC RDW Plt Count MPV Immature Gran % (Auto) Neut % (Auto) Lymph % (Auto) [place] % (Auto) Eos % (Auto) Baso % (Auto) Lymph # (Auto) [place] # (Auto) Eos # (Auto) Baso # (Auto) Abs Immat Gran (auto) Absolute Neuts (auto) Absolute Nucleated RBC Nucleated RBC % (auto) Anion Gap 14 Estim Creat Clear Calc 43.2 Estimated GFR 29 POC Glucose 94 114 Random Glucose 113 Calcium 8.0 L 10/18/21 16:04 MCV MCH MCHC RDW Plt Count MPV Immature Gran % (Auto) Neut % (Auto) Lymph % (Auto) [place] % (Auto) Eos % (Auto) Baso % (Auto) Lymph # (Auto) [place] # (Auto) Eos # (Auto) Baso # (Auto) Abs Immat Gran (auto) Absolute Neuts (auto) Absolute Nucleated RBC Nucleated RBC % (auto) Anion Gap Estim Creat Clear Calc Estimated GFR POC Glucose 105 Random Glucose Calcium Microbiology Microbiology Results: Microbiology 10/16/21 Unknown Urine Culture - Preliminary Urine clean catch - Urine [place] Gram negative shayla 10/16/21 09:54 Blood Culture - Preliminary Blood - Venous Escherichia coli 10/16/21 09:54 Blood Culture - Preliminary Blood - Venous Escherichia coli Assessment and Plan (1) CRISPIN (acute kidney injury): Status: Acute Assessment and Plan: 31-year-old female with history of diabetes, hypertension, hyperlipidemia, gastritis, bipolar disorder, hypothyroidism, severe autoimmune polyneuropathy treated at [facility] presents to the emergency department with 10 days of weakness found to have sepsis secondary to probable UTI 1.Sepsis secondary to UTI/gram neg bactermia--sensitivity still pending, leukocytosis resolved. Continue Zosyn, follow sensitivity 2.CRISPIN--likely pre renal, ATN not excluded, continue IVF and follow creatinine 3.Hypokalemia: Repleted and resolved. metabolic acidosis lactic acid 1.4 r/t CRISPIN/sepsis -follow BMP 4. Thrombocytopenia: probably related to sepsis. Resolved 5.severe polyneuropathy thought to be autoimmune in nature treated at [facility] (see scanned notes for full details) treated with IVIG and rituximab -PT eval when medically stable -continue pregabalin for chronic neuruopathic pain 5.Diabetes: continue lantus, ssi, metformin on hold, jardiance not on formulary 6.HLD:continue statin. 7.Hypothyroidism:continue synthroid. 8.Mood:continue bupropion 9.h/o gastritis/esophagitis continue PPI 10.MO:BMI 45.4 dvt ppx - lovenox Quality Stroke Does the patient have a stroke diagnosis?: No VTE Prior VTE?: No VTE Risk Level:: Medical - moderate - high VTE Device Contraindication: N/A - Device Ordered VTE Drug Contraindication: N/A - Med Ordered
[2021-10-18 19:54] VITALS: BP 109/65; PULSE 114; RESP 17; TEMP 36.3; O2SAT 96
[2021-10-18 20:34] LABS: Glucose, Whole Blood 140 mg/dL (60-115)
[2021-10-18] MEDS: QUEtiapine Fumarate 400 MG TABLET PO (21:11)
[2021-10-18] MEDS: Pravastatin Sodium 20 MG TABLET PO (21:11)
[2021-10-18] MEDS: QUEtiapine Fumarate 200 MG TABLET PO (21:11)
[2021-10-18] MEDS: traZODone HCL 100 MG TABLET PO (21:11)
--- NOTE | 2021-10-18 23:02 | P.CNID_ITS ---
History of Present Illness Data of Consult Service Date: 10/18/21 Requesting physician: Ivan Ford Primary Care Provider: Lachelle Guerra MD [facility] Reason for consult: bacteremia She presents with weakness and confusion and weakness for a day. She describes no dysuria. She has gram negative rods in blood and urine. Renal u/s no obstru tion. Review of Systems Review of Systems: Yes all other systems are reviewed and are negative PMFSH Past Medical History Medical History Acquired hypothyroidism Bipolar disorder Blurred vision, bilateral Diabetes mellitus with hyperglycemia Elevated fasting blood sugar Elevated vitamin B12 level Esophagitis with gastritis Essential hypertension Gastric paresis Hyperlipidemia Muscle weakness Newly diagnosed diabetes Obesity due to excess calories Peripheral neuropathy Vitamin D deficiency Functional capacity: uses cane/walker Family History Family History Other Adopted Family history: reviewed and not pertinent Surgical History Surgical History Hx of section Hx of tooth extraction Social History Social History Household Members: Family Housing: House Do you presently have visiting nurse or other home services: No Alcohol intake: never Patient Tobacco Use Status: Former Tobacco user Use of substances other than those prescribed or required for medical reasons: No Currently Displaying Signs/Symptoms of Drug Intoxication Withdrawal: No Have you been hit, kicked, punched, or otherwise hurt by someone within the past year? If so, by whom?: No Do you feel safe in your current relationship?: No Current Relationship Is there a partner from a previous relationship who is making you feel unsafe now?: No Are you made to feel afraid or neglected: No Advance Directives: No Advance Directives Information Provided: Yes Do you have thoughts of harming others: None Do you have a plan to hurt others: No Plan Recently lost weight without trying: Unsure Nutrition Risks: No Nutritional Risk Patient : No : No Poor oral hygiene: No service: No Gender identity: Female Meds Allergies Allergy/AdvReac Type Severity Reaction Status Date / Time latex Allergy Unknown rash Verified 10/11/21 16:15 metoclopramide [From REGLAN] AdvReac Unknown INTERACTS Verified 10/11/21 16:15 W/ SEROQUEL Active Medications: Current Medications Acetaminophen (Acetaminophen 325 Mg Tablet) 650 mg PO Q6H PRN PRN Reason: Pain, Mild (Pain Scale 1-3) Last Admin: 10/17/21 19:13 Dose: 650 mg Documented by: Bupropion HCl (Bupropion Hcl Xl 150 Mg Tab.Er.24h) 150 mg PO DAILY [facility] Last Admin: 10/18/21 10:21 Dose: 150 mg Documented by: Dextrose (Dextrose 50 % 25 Gm/50 Ml Vial) 25 gm IVPUSH Q15M PRN; Protocol PRN Reason: per Hypoglycemia Standing Ord. Docusate Sodium (Docusate Sodium 100 Mg Capsule) 100 mg PO DAILY PRN PRN Reason: Constipation Enoxaparin Sodium (Enoxaparin Sodium 40 Mg/0.4 Ml Syringe) 40 mg SUBCUT Q24H [facility] Last Admin: 10/18/21 14:08 Dose: 40 mg Documented by: Glucose (Glucose Gel 15 Gm Gel..Gram.) 15 gm PO Q15M PRN; Protocol PRN Reason: per Hypoglycemia Standing Ord. Lactated Ringer's (Lr) 1,000 mls @ 150 mls/hr IVCONT .Q6H40M [facility] Last Admin: 10/18/21 21:12 Dose: 150 mls/hr Documented by: Piperacillin Sod/Tazobactam (Sod 3.375 gm/ Sodium Chloride) 50 mls @ 100 mls/hr IV Q6H [facility] Last Infusion: 10/18/21 22:39 Dose: Infused Documented by: Insulin Glargine (Insulin Glargine,Hum.Rec.Anlog 100 Unit/Ml 10 Ml Vial) 14 unit SUBCUT BEDTIME [facility] Last Admin: 10/18/21 20:45 Dose: Not Given Documented by: Insulin Human Lispro (Insulin Lispro 100 Unit/Ml 3 Ml Vial) 0 unit SUBCUT QIDACHS [facility]; Protocol Last Admin: 10/18/21 20:45 Dose: Not Given Documented by: Levothyroxine Sodium (Levothyroxine Sodium 75 Mcg Tablet) 75 mcg PO DAILY@0600 [facility] Last Admin: 10/18/21 06:16 Dose: 75 mcg Documented by: Magnesium Oxide (Magnesium Oxide 400 Mg Tablet) 400 mg PO DAILY [facility] Last Admin: 10/18/21 10:22 Dose: 400 mg Documented by: Melatonin (Melatonin 3 Mg Tablet) 6 mg PO BEDTIME PRN PRN Reason: Insomnia Multivitamins/Vitamin C (Multivitamin Tablet) 1 tab PO DAILY [facility] Last Admin: 10/18/21 10:22 Dose: 1 tab Documented by: Omeprazole (Omeprazole 20 Mg Capsule.) 20 mg PO DAILY@0630 [facility] Last Admin: 10/18/21 06:16 Dose: 20 mg Documented by: Ondansetron HCl (Ondansetron Hcl 4 Mg/2 Ml Vial) 4 mg IVPUSH Q8H PRN PRN Reason: Nausea and Vomiting Oxcarbazepine (Oxcarbazepine 150 Mg Tablet) 450 mg PO BID [facility] Last Admin: 10/18/21 21:11 Dose: 450 mg Documented by: Pharmacy Consult (Consult Rx Perform Med Rec) 1 each MISCELLANE ONCE PRN PRN Reason: Consult order Pravastatin Sodium (Pravastatin Sodium 20 Mg Tablet) 20 mg PO BEDTIME [facility] Last Admin: 10/18/21 21:11 Dose: 20 mg Documented by: Pregabalin (Pregabalin 150 Mg Capsule) 300 mg PO BID [facility] Last Admin: 10/18/21 21:11 Dose: 300 mg Documented by: Quetiapine Fumarate (Quetiapine Fumarate 400 Mg Tablet) 400 mg PO BEDTIME [facility] Last Admin: 10/18/21 21:11 Dose: 400 mg Documented by: Quetiapine Fumarate (Quetiapine Fumarate 200 Mg Tablet) 200 mg PO BEDTIME [facility] Last Admin: 10/18/21 21:11 Dose: 200 mg Documented by: Sodium Chloride (0.9 % Sodium Chloride Flush 3 Ml Syringe) 3 ml IVFLUSH QSHIFT [facility] Last Admin: 10/18/21 21:12 Dose: 3 ml Documented by: Thiamine HCl (Thiamine Hcl 100 Mg Tablet) 100 mg PO DAILY [facility] Last Admin: 10/18/21 10:22 Dose: 100 mg Documented by: Trazodone HCl (Trazodone Hcl 100 Mg Tablet) 100 mg PO BEDTIME [facility] Last Admin: 10/18/21 21:11 Dose: 100 mg Documented by: Home Medications Medication Instructions Recorded Confirmed Last Taken Type bupropion HCl 100 mg tablet,12 hr 100 mg PO QAM 11/30/20 10/16/21 10/15/21 History sustained-release trazodone 100 mg tablet 100 mg PO BEDTIME 11/30/20 10/16/21 10/15/21 History cranberry 400 mg capsule 450 mg PO DAILY cap 03/22/21 10/16/21 10/15/21 History melatonin 3 mg tablet 6 mg PO DAILY 03/22/21 10/16/21 10/15/21 History multivitamin 1 tab PO DAILY 03/22/21 10/16/21 10/15/21 History pregabalin 300 mg capsule 300 mg PO BID cap 05/10/21 10/16/21 10/15/21 History medroxyprogesterone 150 mg/mL 150 mg IM [id number] 05/23/21 10/16/21 08/10/21 History intramuscular suspension (Depo-Provera) thiamine HCl (vitamin B1) 100 mg 100 mg PO DAILY 06/09/21 10/16/21 10/15/21 History tablet rituximab 10 mg/mL IV [id number] 08/11/21 09/21/21 Unknown History concentrate,intravenous oxcarbazepine 150 mg tablet 450 mg PO BID tab 08/18/21 10/16/21 10/15/21 History immune globulin,gamma(IgG)slra 10 ml IV Q4W 10/11/21 09/27/21 History % intravenous solution cholecalciferol (vitamin D3) 1,250 1,250 mcg PO MO 10/16/21 10/16/21 10/15/21 History mcg (50,000 unit) capsule quetiapine 200 mg tablet 1 tab PO BEDTIME 10/16/21 10/16/21 10/15/21 History quetiapine 400 mg tablet 1 tab PO BEDTIME 10/16/21 10/16/21 10/15/21 History Physical Exam Vital Signs: Vital Signs: Last Vital Signs Temp 97.3 F 10/18/21 19:54 Pulse 114 H 10/18/21 19:54 Resp 17 10/18/21 19:54 BP 109/65 10/18/21 19:54 Pulse Ox 96 10/18/21 19:54 BMI result Body Mass Index 45.3 Const: General: cooperative Eyes: General: appearance normal, both eyes and all related structures Resp: Effort & Inspection: normal respiratory effort Cardio: Rate: regular rate Rhythm: regular rhythm GI: Palpation (GI): Soft to palpation and Tenderness to palpation present (GI) Extrem: General: Yes normal to inspection Results Labs CBC & Chem 7: 10/18/21 06:12 10/18/21 06:12 Labs: Short CBC 10/18/21 10/18/21 Range/Units 06:12 06:12 WBC 8.6 Cancelled (4.8-10.8) X10*3/uL Hgb 11.4 L Cancelled (12.0-16.0) g/dl Hct 33.4 L Cancelled (37.0-47.0) % Plt Count 166 D Cancelled (160-400) X10*3/uL BMP 10/18/21 06:12 Sodium 142 Potassium 3.6 Chloride 115 H Carbon Dioxide 17 L BUN 31 H Creatinine 1.97 H Calcium 8.0 L Microbiology Microbiology Results: Microbiology 10/16/21 Unknown Urine clean catch - Urine [place] Urine Culture - Preliminary Gram negative shayla 10/16/21 09:54 Blood - Venous Blood Culture - Preliminary Escherichia coli 10/16/21 09:54 Blood - Venous Blood Culture - Preliminary Escherichia coli Assessment and Plan (1) Sepsis: Status: Acute She has sepsis gram negative E coli likely She feels better today (2) UTI (urinary tract infection): Status: Acute Would continue Ceftriaxone When improved and no fever for 48 hours over 100.5 would give po Ceftin total 14 d
[2021-10-18 23:32] VITALS: BP 136/84; PULSE 109; RESP 18; TEMP 37.4; O2SAT 96
[2021-10-19] MEDS: Piperacillin Sodium/Tazobactam 3.375 GM in 0.9 % Sodium Chloride 50 ML IV ×4 (01:22→20:50)
[2021-10-19 03:10] VITALS: BP 106/59; PULSE 100; RESP 18; TEMP 37.3; O2SAT 94
[2021-10-19] MEDS: Omeprazole 20 MG CAPSULE.DR PO (05:41)
[2021-10-19] MEDS: Lactated Ringers 1,000 ML 150 ML IVCONT ×2 (05:41→14:09)
[2021-10-19] MEDS: Levothyroxine Sodium 75 MCG TABLET PO (05:41)
[2021-10-19 06:24] LABS: MANUAL DIFF FLAG NO
[2021-10-19 06:26] LABS: Basophils Percent Auto 0.6 % (0-2); Eosinophils Absolute Auto 0.2 X10*3/uL (0.0-0.4); Eosinophils Percent Auto 3.9 % (0-4); Hematocrit 31.1 % (37.0-47.0); Hemoglobin 10.5 g/dl (12.0-16.0); Imm Gran Abs Auto 0.18 X10*3/uL (0.00-0.03); Imm Gran Pct Auto 3.5 % (0.0-0.4); Lymphocytes Absolute Auto 0.6 X10*3/uL (1.2-4.9); Lymphocytes Percent Auto 11.7 % (20-40); Mean Corpuscular HGB Conc 33.8 g/dl (31.0-35.0); Mean Corpuscular Hemoglobin 28.8 pg (27.0-33.0); Mean Corpuscular Volume 85.4 fL (80.0-98.0); Mean Platelet Volume 11.9 fL (9.4-12.3); Monocytes Absolute Auto 0.5 X10*3/uL (0.1-1.2); Monocytes Percent Auto 9.8 % (2-11); Neutrophils Absolute Auto 3.6 x10*3/uL (2.0-8.3); Neutrophils Percent Auto 70.5 % (45-73); Platelet Count 180 X10*3/uL (160-400); Red Blood Count 3.64 X10*6/uL (4.20-5.50); Red Cell Distribution Width 14.9 % (11.0-16.0); White Blood Count 5.1 X10*3/uL (4.8-10.8)
[2021-10-19 06:49] LABS: Anion Gap 12 (12-20); Blood Urea Nitrogen 25 mg/dL (9-16); Carbon Dioxide 19 mmol/L (22-29); Chloride 114 mmol/L (96-108); Creatinine Clr Calc Pharmacy 54.5; Estimated Glomerular Filt Rate 38; Glucose Random 101 mg/dL (60-115); Potassium 3.3 mmol/L (3.3-5.1); Sodium 142 mmol/L (135-145)
[2021-10-19 07:17] VITALS: BP 116/76; PULSE 97; RESP 18; TEMP 36.4; O2SAT 98
[2021-10-19 07:27] LABS: Glucose, Whole Blood 92 mg/dL (60-115)
[2021-10-19] MEDS: Multivitamin TABLET 1 TAB PO (07:57)
[2021-10-19] MEDS: Thiamine HCL 100 MG TABLET PO (07:57)
[2021-10-19] MEDS: OXcarbazepine 150 MG TABLET 450 MG PO ×2 (07:57→20:49)
[2021-10-19] MEDS: Magnesium Oxide 400 MG TABLET PO (07:57)
[2021-10-19] MEDS: Pregabalin 150 MG CAPSULE 300 MG PO ×2 (07:57→20:49)
[2021-10-19] MEDS: 0.9 % Sodium Chloride Flush 3 ML SYRINGE IVFLUSH ×2 (07:57→22:35)
[2021-10-19] MEDS: buPROPion HCl XL 150 MG TAB.ER.24H PO (07:57)
--- NOTE | 2021-10-19 11:03 | P.PNNP_ITS ---
Subjective Subjective Date of Service: 10/19/21 Interval history: f/u on crispin, uti feeling better Physical Exam Vital Signs: Vital Signs: Last Vital Signs Temp 97.5 F 10/19/21 07:17 Pulse 97 10/19/21 07:17 Resp 18 10/19/21 07:17 BP 116/76 10/19/21 07:17 Pulse Ox 98 10/19/21 07:17 BMI result Body Mass Index 45.3 Const: General: cooperative, comfortable, no acute distress, alert, awake and Cushingoid facies Nutritional Appearance: obese and overweight Orientation/consciousness: patient oriented x3 HENMT: Other: examination the head eyes ears nose and throat is within normal limits Head: Yes normocephalic and Yes atraumatic General nose exam: Normal external nose present Face and sinus: Yes normal facial exam Mouth: Normal oral and palatal mucosa present Eyes: Sclerae: sclerae normal Pupils: Equal, round and reactive pupils present Neck: Neck: Yes normal visual inspection and Yes full ROM Chest: Chest palpation & inspection: normal inspection of the chest Resp: Effort & Inspection: normal respiratory effort and no respiratory distress Auscultation: clear to auscultation bilaterally and diminished lung sounds Cardio: Jugular venous distension: no JVD Rate: tachycardic Rhythm: regular rhythm Heart sounds: no murmurs GI: Inspection: Yes normal to inspection Palpation (GI): Soft to palpation and nontender Skin: General skin exam: no rashes or lesions noted Neuro: General: patient oriented x3 Cranial nerves: Yes CN's II-XII intact bilaterally, Yes Equal, round and reactive pupils present and Yes Bilaterally intact EOM present Extrem: Other: able to move all four extremities spontaneously; no leg edema Objective Data Labs CBC & Chem 7: 10/19/21 06:14 10/19/21 06:14 Labs: Laboratory Results - last 24 hr 10/18/21 10/18/21 10/18/21 11:21 16:04 20:30 WBC RBC Hgb Hct MCV MCH MCHC RDW Plt Count MPV Immature Gran % (Auto) Neut % (Auto) Lymph % (Auto) [place] % (Auto) Eos % (Auto) Baso % (Auto) Lymph # (Auto) [place] # (Auto) Eos # (Auto) Baso # (Auto) Abs Immat Gran (auto) Absolute Neuts (auto) Absolute Nucleated RBC Nucleated RBC % (auto) Sodium Potassium Chloride Carbon Dioxide Anion Gap BUN Creatinine Estim Creat Clear Calc Estimated GFR POC Glucose 114 105 140 H Random Glucose Calcium 10/19/21 10/19/21 10/19/21 06:14 06:14 07:16 WBC 5.1 RBC 3.64 L Hgb 10.5 L Hct 31.1 L MCV 85.4 MCH 28.8 MCHC 33.8 RDW 14.9 Plt Count 180 MPV 11.9 Immature Gran % (Auto) 3.5 H Neut % (Auto) 70.5 Lymph % (Auto) 11.7 L [place] % (Auto) 9.8 Eos % (Auto) 3.9 Baso % (Auto) 0.6 Lymph # (Auto) 0.6 L [place] # (Auto) 0.5 Eos # (Auto) 0.2 Baso # (Auto) 0.0 Abs Immat Gran (auto) 0.18 H Absolute Neuts (auto) 3.6 Absolute Nucleated RBC 0.000 Nucleated RBC % (auto) 0.0 Sodium 142 Potassium 3.3 Chloride 114 H Carbon Dioxide 19 L Anion Gap 12 BUN 25 H Creatinine 1.56 H Estim Creat Clear Calc 54.5 Estimated GFR 38 POC Glucose 92 Random Glucose 101 Calcium 8.0 L Microbiology Microbiology Results: Microbiology 10/16/21 09:54 Blood - Venous Blood Culture - Final Escherichia coli 10/16/21 09:54 Blood - Venous Blood Culture - Final Escherichia coli 10/16/21 Unknown Urine clean catch - Urine [place] Urine Culture - Final Klebsiella pneumoniae Escherichia coli Procedures Date of Service Date of Service: 10/19/21 Assessment & Plan Assessment and plan (1) CRISPIN (acute kidney injury): Status: Acute (2) Obesity, morbid, BMI 40.0-49.9: Status: Acute (3) UTI (urinary tract infection): Status: Acute (4) Sepsis: Status: Acute (5) Hypokalemia: Status: Acute Assessment and Plan: CRISPIN with hypokalemia and acidosis in a diabetic woman with polyneuropathy and UTI/Sepsis DDX ATN No obstruction r/o AGN and AiN Cr is improving with hydration Suggest: IV Hydration with LR Keep I > O Replace K as needed Avoid hypotension Check urine Na/Cr/protein Time Spent With Patient Time: Total time spent is greater than 50% in coordination of care (as documented) at patient's floor/unit and/or counseling patient: Progress Note: Quality Stroke Does the patient have a stroke diagnosis?: No
[2021-10-19 11:09] VITALS: BP 118/81; PULSE 96; RESP 18; TEMP 36.5; O2SAT 95
[2021-10-19 11:13] LABS: Glucose, Whole Blood 104 mg/dL (60-115)
--- NOTE | 2021-10-19 13:19 | HO.PM.IMPN ---
Subjective Subjective Date of Service: 10/19/21 Interval History: f/u on crispin, uti feeling better, crispin is better, tachycardia resolved Review of Systems no fever no abdominal pain Physical Exam Vital Signs: Vital Signs: Last Vital Signs Temp 97.7 F 10/19/21 11:09 Pulse 96 10/19/21 11:09 Resp 18 10/19/21 11:09 BP 118/81 10/19/21 11:09 Pulse Ox 95 10/19/21 11:09 BMI result Body Mass Index 45.3 Const: Other: General: AO X 3, no acute distress Resp: CTA bilateral CVS: S1,S2,RRR GI: +BS, NT, no distention Skin: No rash Neuro: motor grossly intact Psych: appropriate affect Objective Data Active Medications Acetaminophen (Acetaminophen 325 Mg Tablet) 650 mg PO Q6H PRN PRN Reason: Pain, Mild (Pain Scale 1-3) Last Admin: 10/17/21 19:13 Dose: 650 mg Documented by: HÉCTOR Bupropion HCl (Bupropion Hcl Xl 150 Mg Tab.Er.24h) 150 mg PO DAILY [facility] Last Admin: 10/19/21 07:57 Dose: 150 mg Documented by: ISMAEL Dextrose (Dextrose 50 % 25 Gm/50 Ml Vial) 25 gm IVPUSH Q15M PRN; Protocol PRN Reason: per Hypoglycemia Standing Ord. Docusate Sodium (Docusate Sodium 100 Mg Capsule) 100 mg PO DAILY PRN PRN Reason: Constipation Enoxaparin Sodium (Enoxaparin Sodium 40 Mg/0.4 Ml Syringe) 40 mg SUBCUT Q24H [facility] Last Admin: 10/18/21 14:08 Dose: 40 mg Documented by: HÉCTOR Glucose (Glucose Gel 15 Gm Gel..Gram.) 15 gm PO Q15M PRN; Protocol PRN Reason: per Hypoglycemia Standing Ord. Lactated Ringer's (Lr) 1,000 mls @ 150 mls/hr IVCONT .Q6H40M [facility] Last Admin: 10/19/21 05:41 Dose: 150 mls/hr Documented by: YAZMIN Piperacillin Sod/Tazobactam (Sod 3.375 gm/ Sodium Chloride) 50 mls @ 100 mls/hr IV Q6H [facility] Last Infusion: 10/19/21 08:55 Dose: 0 mls/hr Documented by: ISMAEL Insulin Glargine (Insulin Glargine,Hum.Rec.Anlog 100 Unit/Ml 10 Ml Vial) 14 unit SUBCUT BEDTIME [facility] Last Admin: 10/18/21 20:45 Dose: Not Given Documented by: YAZMIN Non-Admin Reason: No Insulin Coverage Insulin Human Lispro (Insulin Lispro 100 Unit/Ml 3 Ml Vial) 0 unit SUBCUT QIDACHS [facility]; Protocol Last Admin: 10/19/21 13:13 Dose: Not Given Documented by: ISMAEL Non-Admin Reason: No Insulin Coverage Levothyroxine Sodium (Levothyroxine Sodium 75 Mcg Tablet) 75 mcg PO DAILY@0600 [facility] Last Admin: 10/19/21 05:41 Dose: 75 mcg Documented by: YAZMIN Magnesium Oxide (Magnesium Oxide 400 Mg Tablet) 400 mg PO DAILY [facility] Last Admin: 10/19/21 07:57 Dose: 400 mg Documented by: ISMAEL Melatonin (Melatonin 3 Mg Tablet) 6 mg PO BEDTIME PRN PRN Reason: Insomnia Multivitamins/Vitamin C (Multivitamin Tablet) 1 tab PO DAILY [facility] Last Admin: 10/19/21 07:57 Dose: 1 tab Documented by: ISMAEL Omeprazole (Omeprazole 20 Mg Capsule.) 20 mg PO DAILY@0630 [facility] Last Admin: 10/19/21 05:41 Dose: 20 mg Documented by: YAZMIN Ondansetron HCl (Ondansetron Hcl 4 Mg/2 Ml Vial) 4 mg IVPUSH Q8H PRN PRN Reason: Nausea and Vomiting Oxcarbazepine (Oxcarbazepine 150 Mg Tablet) 450 mg PO BID [facility] Last Admin: 10/19/21 07:57 Dose: 450 mg Documented by: ISMAEL Pharmacy Consult (Consult Rx Perform Med Rec) 1 each MISCELLANE ONCE PRN PRN Reason: Consult order Pravastatin Sodium (Pravastatin Sodium 20 Mg Tablet) 20 mg PO BEDTIME [facility] Last Admin: 10/18/21 21:11 Dose: 20 mg Documented by: YAZMIN Pregabalin (Pregabalin 150 Mg Capsule) 300 mg PO BID [facility] Last Admin: 10/19/21 07:57 Dose: 300 mg Documented by: ISMAEL Quetiapine Fumarate (Quetiapine Fumarate 400 Mg Tablet) 400 mg PO BEDTIME [facility] Last Admin: 10/18/21 21:11 Dose: 400 mg Documented by: YAZMIN Quetiapine Fumarate (Quetiapine Fumarate 200 Mg Tablet) 200 mg PO BEDTIME [facility] Last Admin: 10/18/21 21:11 Dose: 200 mg Documented by: YAZMIN Sodium Chloride (0.9 % Sodium Chloride Flush 3 Ml Syringe) 3 ml IVFLUSH QSHIFT [facility] Last Admin: 10/19/21 07:57 Dose: 3 ml Documented by: ISMAEL Thiamine HCl (Thiamine Hcl 100 Mg Tablet) 100 mg PO DAILY [facility] Last Admin: 10/19/21 07:57 Dose: 100 mg Documented by: ISMAEL Trazodone HCl (Trazodone Hcl 100 Mg Tablet) 100 mg PO BEDTIME [facility] Last Admin: 10/18/21 21:11 Dose: 100 mg Documented by: YAZMIN Labs CBC & Chem 7: 10/19/21 06:14 10/19/21 06:14 Labs: Laboratory Results - last 24 hr 10/18/21 10/18/21 10/19/21 16:04 20:30 06:14 MCV 85.4 MCH 28.8 MCHC 33.8 RDW 14.9 Plt Count 180 MPV 11.9 Immature Gran % (Auto) 3.5 H Neut % (Auto) 70.5 Lymph % (Auto) 11.7 L [place] % (Auto) 9.8 Eos % (Auto) 3.9 Baso % (Auto) 0.6 Lymph # (Auto) 0.6 L [place] # (Auto) 0.5 Eos # (Auto) 0.2 Baso # (Auto) 0.0 Abs Immat Gran (auto) 0.18 H Absolute Neuts (auto) 3.6 Absolute Nucleated RBC 0.000 Nucleated RBC % (auto) 0.0 Anion Gap Estim Creat Clear Calc Estimated GFR POC Glucose 105 140 H Random Glucose Calcium 10/19/21 10/19/21 10/19/21 06:14 07:16 11:10 MCV MCH MCHC RDW Plt Count MPV Immature Gran % (Auto) Neut % (Auto) Lymph % (Auto) [place] % (Auto) Eos % (Auto) Baso % (Auto) Lymph # (Auto) [place] # (Auto) Eos # (Auto) Baso # (Auto) Abs Immat Gran (auto) Absolute Neuts (auto) Absolute Nucleated RBC Nucleated RBC % (auto) Anion Gap 12 Estim Creat Clear Calc 54.5 Estimated GFR 38 POC Glucose 92 104 Random Glucose 101 Calcium 8.0 L Microbiology Microbiology Results: Microbiology 10/16/21 09:54 Blood Culture - Final Blood - Venous Escherichia coli 10/16/21 09:54 Blood Culture - Final Blood - Venous Escherichia coli 10/16/21 Unknown Urine Culture - Final Urine clean catch - Urine [place] Klebsiella pneumoniae Escherichia coli Assessment and Plan (1) CRISPIN (acute kidney injury): Status: Acute (2) Sepsis: Status: Acute Assessment and Plan: 31-year-old female with history of diabetes, hypertension, hyperlipidemia, gastritis, bipolar disorder, hypothyroidism, severe autoimmune [place]ne[place] [facility] [place] emergency department with 10 days of weakness found to have sepsis secondary to probable UTI 1.Sepsis secondary to UTI/gram neg bactermia-- ESBL+ E.coli and Klebsiela. Continue Zosyn, follow sensitivity, ID to make final recommendation 2.CRISPIN--likely pre renal, ATN not excluded, continue IVF and follow creatinine 3.Hypokalemia: Repleted and resolved. metabolic acidosis lactic acid 1.4 r/t CRISPIN/sepsis -follow BMP 4. Thrombocytopenia: probably related to sepsis. 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 7.Hypothyroidism:continue synthroid. 8.Mood:continue bupropion 9.h/o gastritis/esophagitis continue PPI 10.MO:BMI 45.4 dvt ppx - lovenox Quality Stroke Does the patient have a stroke diagnosis?: No VTE Prior VTE?: No VTE Risk Level:: Medical - moderate - high VTE Device Contraindication: N/A - Device Ordered VTE Drug Contraindication: N/A - Med Ordered
[2021-10-19] MEDS: Enoxaparin Sodium 40 MG/0.4 ML SYRINGE SUBCUT (14:03)
[2021-10-19 16:00] VITALS: BP 116/76; PULSE 93; RESP 18; TEMP 36.1; O2SAT 97
[2021-10-19 16:43] LABS: Glucose, Whole Blood 98 mg/dL (60-115)
[2021-10-19 19:41] VITALS: BP 132/84; PULSE 91; RESP 18; TEMP 36.1; O2SAT 95
[2021-10-19 20:31] LABS: Glucose, Whole Blood 99 mg/dL (60-115)
[2021-10-19] MEDS: traZODone HCL 100 MG TABLET PO (20:49)
[2021-10-19] MEDS: QUEtiapine Fumarate 200 MG TABLET PO (20:49)
[2021-10-19] MEDS: Pravastatin Sodium 20 MG TABLET PO (20:49)
[2021-10-19] MEDS: QUEtiapine Fumarate 400 MG TABLET PO (20:49)
[2021-10-19] MEDS: Acetaminophen 325 MG TABLET 650 MG PO (20:49)
[2021-10-19 23:54] VITALS: BP 117/73; PULSE 85; RESP 16; TEMP 36.7; O2SAT 97
[2021-10-20] MEDS: Piperacillin Sodium/Tazobactam 3.375 GM in 0.9 % Sodium Chloride 50 ML IV ×2 (02:59→09:24)
[2021-10-20 03:53] VITALS: BP 110/62; PULSE 79; RESP 16; TEMP 36.8; O2SAT 96
[2021-10-20] MEDS: Levothyroxine Sodium 75 MCG TABLET PO (05:55)
[2021-10-20] MEDS: Omeprazole 20 MG CAPSULE.DR PO (05:55)
[2021-10-20 06:26] LABS: Hematocrit 34.7 % (37.0-47.0); Hemoglobin 11.4 g/dl (12.0-16.0); Mean Corpuscular HGB Conc 32.9 g/dl (31.0-35.0); Mean Corpuscular Hemoglobin 28.4 pg (27.0-33.0); Mean Corpuscular Volume 86.3 fL (80.0-98.0); Mean Platelet Volume 11.7 fL (9.4-12.3); Platelet Count 255 X10*3/uL (160-400); Red Blood Count 4.02 X10*6/uL (4.20-5.50); Red Cell Distribution Width 15.1 % (11.0-16.0); White Blood Count 5.7 X10*3/uL (4.8-10.8)
[2021-10-20 06:46] LABS: Anion Gap 12 (12-20); Blood Urea Nitrogen 22 mg/dL (9-16); Calcium 8.4 mg/dL (8.4-10.2); Carbon Dioxide 20 mmol/L (22-29); Chloride 111 mmol/L (96-108); Creatinine Clr Calc Pharmacy 63.4; Estimated Glomerular Filt Rate 46; Glucose Random 92 mg/dL (60-115); Potassium 3.4 mmol/L (3.3-5.1); Sodium 140 mmol/L (135-145)
[2021-10-20 07:06] LABS: Band Neutrophils Percent 3 % (3-5); Eosinophils Absolute Manual 0.1 X10*3/uL (0.0-0.4); Eosinophils Percent Manual 2 % (0-4); Lymphocytes Absolute Manual 1.5 X10*3/uL (1.2-4.9); Lymphocytes Percent Manual 26 % (20-40); Monocytes Absolute Manual 0.4 X10*3/uL (0.1-1.2); Monocytes Percent Manual 7 % (2-11); Neutrophils Absolute Manual 3.7 X10*3/uL (2.0-8.3); Neutrophils Percent Manual 62 % (45-73); Platelet Estimate NORMAL (NORMAL); Platelet Morphology Comment NORMAL; RBC Morphology NORMAL
[2021-10-20 07:14] VITALS: BP 126/70; PULSE 88; RESP 18; TEMP 36.6; O2SAT 96
[2021-10-20 07:19] LABS: Glucose, Whole Blood 81 mg/dL (60-115)
[2021-10-20] MEDS: Pregabalin 150 MG CAPSULE 300 MG PO (09:23)
[2021-10-20] MEDS: OXcarbazepine 150 MG TABLET 450 MG PO (09:23)
[2021-10-20] MEDS: Magnesium Oxide 400 MG TABLET PO (09:24)
[2021-10-20] MEDS: Multivitamin TABLET 1 TAB PO (09:24)
[2021-10-20] MEDS: buPROPion HCl XL 150 MG TAB.ER.24H PO (09:24)
[2021-10-20] MEDS: Thiamine HCL 100 MG TABLET PO (09:24)
[2021-10-20] MEDS: 0.9 % Sodium Chloride Flush 3 ML SYRINGE IVFLUSH (09:25)
[2021-10-20 11:21] VITALS: BP 121/80; PULSE 98; RESP 18; TEMP 36.3; O2SAT 97
[2021-10-20 11:26] LABS: Glucose, Whole Blood 98 mg/dL (60-115)
--- NOTE | 2021-10-20 11:47 | PM.DS ---
DS: Providers Provider Date of Service: 10/20/21 <MELANY Lott - Last Filed: 10/20/21 11:58> Date of admission: 10/16/21 14:10 <MELANY Lott - Last Filed: 10/20/21 11:58> Date of discharge: 10/20/21 <MELANY Lott - Last Filed: 10/20/21 11:58> Primary care physician: Lachelle Guerra MD <MELANY Lott - Last Filed: 10/20/21 11:58> Consults: 10/17/21 07:54 Consult to Nephrology Routine Consulting Provider: Michael Xie Reason for consultation: crispin Has provider been notified: No 10/17/21 13:55 Consult to Infectious Diseases Routine Consulting Provider: Doreen Torres Reason for consultation: uti/sepsis/ gram neg bactermia Has provider been notified: No <MELANY Lott - Last Filed: 10/20/21 11:58> Attending physician on discharge: Ivan Garcia <MELANY Lott - Last Filed: 10/20/21 11:58> Discharging clinician: Rhona Hernandez <MELANY Lott - Last Filed: 10/20/21 11:58> DS: Diagnosis Discharge Diagnosis (1) CRISPIN (acute kidney injury): Status: Acute <MELANY Lott - Last Filed: 10/20/21 11:58> (2) Sepsis: Status: Acute <MELANY Lott - Last Filed: 10/20/21 11:58> (3) Hypokalemia: Status: Acute <MELANY Lott - Last Filed: 10/20/21 11:58> (4) UTI (urinary tract infection): Status: Acute <MELANY Lott - Last Filed: 10/20/21 11:58> (5) Bacteremia: Status: Acute <MELANY Lott - Last Filed: 10/20/21 11:58> DS: Summary Hospital Course Hospital Course: From H&P on day of admission This is a 31 year history diabetes, hypertension, hyperlipidemia, bipolar disorder, and severe autoimmune polyneuropathy who presents to the emergency department with 10 days of increased weakness and chills.? History was obtained from the patient as well as her father at the bedside. For the past 10 days she has had generalized weakness with associated chills. She has a history of autoimmune neuropathy but is typically able to ambulate with a walker or cane,? She was recently treated with amoxicillin for a dental abscess and has plans for outpatient tooth extraction.? Over the past couple of days she has had fever and dysuria.? She denies any abdominal pain, nausea, vomiting.? She has no shortness of breath no cough.? On arrival to the emergency department she had fever 102, was noted to be tachycardic.? Lab work was significant for multiple abnormalities including leukocytosis of 14,000, CRISPIN with creatinine of 1.96, hypokalemia with potassium of 2.9, metabolic acidosis with bicarb of 14.? Chest x-ray showed no acute abnormalities.? Urinalysis was positive for leukocyte esterase, wbc's, rbc's and bacteria concerning for UTI.? She was started on broad-spectrum antibiotics with IV vancomycin and Zosyn and the decision was made to her to the hospital for further management of sepsis. Sepsis/bacteremia secondary to UTI. Patient was initially started on IV ceftriaxone. Urine cultures returned positive for Klebsiella and ESBL positive E coli (see final sensitivities below) and her antibiotics were changed to IV Zosyn. Blood cultures also returned positive for ESBL E coli. Fever, leukocytosis and tachycardia resolved with antibiotic management. She was seen and evaluated by Infectious Diseases. She will be discharged home with oral Bactrim to complete total of 14 days. CRISPIN/metabolic acidosis She was treated with IV fluid. She was evaluated by Nephrology. Likely ATN related to sepsis. Renal function has improved from 2.28 on day of admission to 1.34 on day of discharge. Repeat BMP will be ordered for next Sunday. Thrombocytopenia. Secondary to sepsis. Resolved. Platelets improved from 92 to 255 on day of discharge. She was evaluated by Physical therapy who recommended home with PT service, [facility]NA to assess the patient by Sunday10/24/21 Ordered: Urine Culture Procedure Result Verified Site Urine Culture Final 10/19/21-811 Organism 1 Klebsiella pneumoniae Quant > 100,000 cfu/mL Organism 2 Escherichia coli Quant > 100,000 cfu/mL ESBL Note: NOTE: Extended-Spectrum Beta-Lactamase enzyme present Kleb pneum E coli M.I.C. RX M.I.C. RX --------- --- --------- --- Ampicillin >=32 R >=32 R Extended Spectrum Beta Lactam NEG - POS + Ceftriaxone <=1 S >=64 R Ertapenem <=0.5 S Gentamicin <=1 S <=1 S Levofloxacin <=0.12 S >=8 R Nitrofurantoin 64 I <=16 S Trimethoprim/Sulfamethoxazole <=20 S <=20 S <MELANY Lott Last Filed: 10/20/21 11:58> Time Spent with Patient Time attestation: Total time spent providing and/or coordinating discharge services: <MELANY Lott Last Filed: 10/20/21 11:58> Discharge coordination time: Greater than 30 minutes <MELANY Lott Last Filed: 10/20/21 11:58> Quality: Stroke Does the patient have a stroke diagnosis?: No <MELANY Lott Last Filed: 10/20/21 11:58> Physical Exam Vital Signs: Vital Signs: Last Vital Signs Temp 97.4 F 10/20/21 11:21 Pulse 98 10/20/21 11:21 Resp 18 10/20/21 11:21 BP 121/80 10/20/21 11:21 Pulse Ox 97 10/20/21 11:21 BMI result Body Mass Index 45.3 <MELANY Lott Last Filed: 10/20/21 11:58> Const: General: comfortable, no acute distress, alert and awake <MELANY Lott Last Filed: 10/20/21 11:58> Nutritional Appearance: obese <MELANY Lott Last Filed: 10/20/21 11:58> Orientation/consciousness: patient oriented x3 <MELANY Lott Last Filed: 10/20/21 11:58> HENMT: Head: Yes normocephalic and Yes atraumatic <MELANY Lott Last Filed: 10/20/21 11:58> Eyes: Sclerae: sclerae normal <MELANY Lott - Last Filed: 10/20/21 11:58> Pupils: Equal, round and reactive pupils present <MELANY Lott - Last Filed: 10/20/21 11:58> Resp: Effort & Inspection: normal respiratory effort and no respiratory distress <MELANY Lott - Last Filed: 10/20/21 11:58> Auscultation: diminished lung sounds <MELANY Lott - Last Filed: 10/20/21 11:58> Cardio: Rate: tachycardic <MELANY Lott - Last Filed: 10/20/21 11:58> Rhythm: regular rhythm <MELANY Lott - Last Filed: 10/20/21 11:58> Heart sounds: no murmurs <MELANY Lott - Last Filed: 10/20/21 11:58> Neuro: General: patient oriented x3 <MELANY Lott - Last Filed: 10/20/21 11:58> Cranial nerves: Yes CN's II-XII intact bilaterally, Yes Equal, round and reactive pupils present and Yes Bilaterally intact EOM present <MELANY Lott - Last Filed: 10/20/21 11:58> DS: Data Data Completed and Pending Labs on day of discharge: Laboratory Results - last 24 hr 10/19/21 10/19/21 10/20/21 16:40 20:28 06:02 WBC 5.7 RBC 4.02 L Hgb 11.4 L Hct 34.7 L MCV 86.3 MCH 28.4 MCHC 32.9 RDW 15.1 Plt Count 255 D MPV 11.7 Immature Gran % (Auto) Cancelled Neut % (Auto) Cancelled Lymph % (Auto) Cancelled [place] % (Auto) Cancelled Eos % (Auto) Cancelled Baso % (Auto) Cancelled Lymph # (Auto) Cancelled [place] # (Auto) Cancelled Eos # (Auto) Cancelled Baso # (Auto) Cancelled Abs Immat Gran (auto) Cancelled Absolute Neuts (auto) Cancelled Absolute Nucleated RBC 0.000 Nucleated RBC % (auto) 0.0 Neutrophils % (Manual) 62 Band Neutrophils % 3 Lymphocytes % (Manual) 26 Monocytes % (Manual) 7 Eosinophils % (Manual) 2 Abs Neuts (Manual) 3.7 Lymphocytes # (Manual) 1.5 Monocytes # (Manual) 0.4 Eosinophils # (Manual) 0.1 Platelet Estimate NORMAL Plt Morphology Comment NORMAL RBC Morphology NORMAL Sodium Potassium Chloride Carbon Dioxide Anion Gap BUN Creatinine Estim Creat Clear Calc Estimated GFR POC Glucose 98 99 Random Glucose Calcium 10/20/21 10/20/21 10/20/21 06:02 07:15 11:22 WBC RBC Hgb Hct MCV MCH MCHC RDW Plt Count MPV Immature Gran % (Auto) Neut % (Auto) Lymph % (Auto) [place] % (Auto) Eos % (Auto) Baso % (Auto) Lymph # (Auto) [place] # (Auto) Eos # (Auto) Baso # (Auto) Abs Immat Gran (auto) Absolute Neuts (auto) Absolute Nucleated RBC Nucleated RBC % (auto) Neutrophils % (Manual) Band Neutrophils % Lymphocytes % (Manual) Monocytes % (Manual) Eosinophils % (Manual) Abs Neuts (Manual) Lymphocytes # (Manual) Monocytes # (Manual) Eosinophils # (Manual) Platelet Estimate Plt Morphology Comment RBC Morphology Sodium 140 Potassium 3.4 Chloride 111 H Carbon Dioxide 20 L Anion Gap 12 BUN 22 H Creatinine 1.34 Estim Creat Clear Calc 63.4 Estimated GFR 46 POC Glucose 81 98 Random Glucose 92 Calcium 8.4 <MELANY Lott - Last Filed: 10/20/21 11:58> Discharge Plan Discharge Patient Disposition: Home Health Service <MELANY Lott - Last Filed: 10/20/21 11:58> Discharge Diagnosis: sepsis/bacteremia secondary to UTI CRISPIN <MELANY Lott - Last Filed: 10/20/21 11:58> sepsis/bacteremia secondary to UTI CRISPIN <Ivan Garcia MD - Last Filed: 10/21/21 14:10> Referrals: [facility] [Outside] - 1 Week Lachelle Guerra MD [Primary Care Provider] - 1 Week <MELANY Lott - Last Filed: 10/20/21 11:58> Discharge Medications: New sulfamethoxazole-trimethoprim [Bactrim DS] 800-160 mg tablet 1 tab PO Q12H 10 Days Qty: 20 RF: 0 Continued thiamine HCl (vitamin B1) 100 mg tablet 100 mg PO DAILY RF: 0 ferrous sulfate 325 mg (65 mg iron) tablet 325 mg PO BID Qty: 60 RF: 4 pantoprazole 40 mg tablet,delayed release (DR/EC) 40 mg PO DAILY Qty: 30 RF: 3 Jardiance 10 mg tablet 10 mg PO QAM Qty: 30 RF: 6 metformin 500 mg tablet 500 mg PO BID Qty: 60 RF: 2 pravastatin 20 mg tablet 20 mg PO BEDTIME Qty: 30 RF: 5 levothyroxine [Euthyrox] 75 mcg tablet 75 mcg PO QAM Qty: 30 RF: 4 magnesium oxide 400 mg (241.3 mg magnesium) tablet 400 mg PO DAILY Qty: 30 RF: 0 quetiapine 200 mg tablet 1 tab PO BEDTIME RF: 0 cholecalciferol (vitamin D3) 1,250 mcg (50,000 unit) capsule 1,250 mcg PO MO RF: 0 quetiapine 400 mg tablet 1 tab PO BEDTIME RF: 0 pregabalin 300 mg capsule 300 mg PO BID RF: 0 rituximab 10 mg/mL concentrate IV [id number] RF: 0 melatonin 3 mg tablet 6 mg PO DAILY RF: 0 multivitamin Tablet 1 tab PO DAILY RF: 0 cranberry 400 mg capsule 450 mg PO DAILY RF: 0 immune globulin,gamma(IgG)slra 10 % solution IV Q4W RF: 0 bupropion HCl 100 mg tablet sustained-release 12 hr 100 mg PO QAM RF: 0 trazodone 100 mg tablet 100 mg PO BEDTIME RF: 0 oxcarbazepine 150 mg tablet 450 mg PO BID RF: 0 medroxyprogesterone [Depo-Provera] 150 mg/mL suspension 150 mg IM [id number] RF: 0 Tresiba FlexTouch U-200 200 unit/mL (3 mL) insulin pen 20 unit subcut BEDTIME 30 Days Qty: 3 RF: 3 No Action (DME) blood-glucose meter [FreeStyle Lite Meter] Kit See Rx Instructions .ROUTE .MEDSUPPLY Qty: 1 RF: 0 (DME) pen needle, diabetic [BD Wendy 2nd Gen Pen Needle] 32 gauge x 5/32 needle See Rx Instructions .ROUTE .MEDSUPPLY Qty: 50 RF: 3 (DME) FreeStyle Lite Strips Strip See Rx Instructions .ROUTE .MEDSUPPLY Qty: 100 RF: 11 (DME) lancets [FreeStyle Lancets] 28 gauge misc See Rx Instructions .ROUTE .MEDSUPPLY Qty: 100 RF: 11 <MELANY Lott - Last Filed: 10/20/21 11:58> Discharge Orders: Discharge Order (Routine); Ordered 10/20/21 Ordered By: Rhona Hernandez <MELANY Lott - Last Filed: 10/20/21 11:58> Diet: advance to usual diet <MELANY Lott - Last Filed: 10/20/21 11:58> advance to usual diet <Ivan Garcia MD - Last Filed: 10/21/21 14:10> Activity on Discharge: As tolerated <MELANY Lott - Last Filed: 10/20/21 11:58> As tolerated <Ivan Garcia MD - Last Filed: 10/21/21 14:10> Stand Alone Forms: Patient Portal Discharge page <MELANY Lott - Last Filed: 10/20/21 11:58> Other Ambulatory Orders: Basic Metabolic Panel (Routine) Timeframe: 20211025 Facility: [facility] - Location: Laboratory Ordered By: Rhona Hernandez <MELANY Lott - Last Filed: 10/20/21 11:58> Care Plan Goals: see below <MELANY Lott - Last Filed: 10/20/21 11:58> Health Concerns: sepsis secondary to UTI CRISPIN Bacteremia <MELANY Lott - Last Filed: 10/20/21 11:58> Plan of Treatment: Complete entire course of antibiotics Repeat lab work next week Call to schedule follow up appointment with PCP You will be discharged home with home physical therapy [facility] to assess you by Sunday10/24/21 <MELANY Lott - Last Filed: 10/20/21 11:58> Assessment: see discharge summary I personally saw and examined this patient and discussed plan and disposition with mid-level provider and I agree with the above <MELANY Lott - Last Filed: 10/20/21 11:58> Discharge Date/Time: 10/20/21 14:33 <MELANY Lott - Last Filed: 10/20/21 11:58>
--- NOTE | 2021-10-20 11:56 | P.F2F_ITS ---
Documented by User: MELANY Lott 10/20/21 11:56 Service Date Service Date: 10/20/21 Encounter Date of encounter: 10/20/21 Reasons for Services Reason for physical therapy: home safety and mobility and therapeutic exercises Overseeing Care: Lachelle Guerra Homebound: Leaving the home is medically contraindicated at this time without the asist of a device and/or another person due th the listed conditions above and below. Reason homebound: unsteady gait / fall risk and weakness related to hospital stay Certification: Based on the above findings, I certify that this patient is confined to the home and needs intermittent intermediate care, physical therapy and/or speech therapy, or continues to need occupational therapy. The patient is under my care, and I have initiated the establishment of the plan of care. The patient will be followed by a physician who will periodically review the plan of care.
--- NOTE | 2021-10-20 11:58 | P.PNNP_ITS ---
Subjective Subjective Date of Service: 10/21/21 Interval history: Events noted Physical Exam Vital Signs: Vital Signs: Last Vital Signs Temp 97.4 F 10/20/21 11:21 Pulse 98 10/20/21 11:21 Resp 18 10/20/21 11:21 BP 121/80 10/20/21 11:21 Pulse Ox 97 10/20/21 11:21 BMI result Body Mass Index 45.3 Const: General: cooperative, comfortable, no acute distress, alert, awake and Cushingoid facies Nutritional Appearance: obese and overweight Orientation/consciousness: patient oriented x3 HENMT: Other: examination the head eyes ears nose and throat is within normal limits Head: Yes normocephalic and Yes atraumatic General nose exam: Normal external nose present Face and sinus: Yes normal facial exam Mouth: Normal oral and palatal mucosa present Eyes: Sclerae: sclerae normal Pupils: Equal, round and reactive pupils present Neck: Neck: Yes normal visual inspection and Yes full ROM Chest: Chest palpation & inspection: normal inspection of the chest Resp: Effort & Inspection: normal respiratory effort and no respiratory distress Auscultation: clear to auscultation bilaterally and diminished lung sounds Cardio: Jugular venous distension: no JVD Rate: tachycardic Rhythm: regular rhythm Heart sounds: no murmurs GI: Inspection: Yes normal to inspection Palpation (GI): Soft to palpation and nontender Skin: General skin exam: no rashes or lesions noted Neuro: General: patient oriented x3 Cranial nerves: Yes CN's II-XII intact bilaterally, Yes Equal, round and reactive pupils present and Yes Bilaterally intact EOM present Extrem: Other: able to move all four extremities spontaneously; no leg edema Objective Data Labs CBC & Chem 7: 10/20/21 06:02 10/20/21 06:02 Labs: Laboratory Results - last 24 hr 10/19/21 10/19/21 10/20/21 16:40 20:28 06:02 WBC 5.7 RBC 4.02 L Hgb 11.4 L Hct 34.7 L MCV 86.3 MCH 28.4 MCHC 32.9 RDW 15.1 Plt Count 255 D MPV 11.7 Immature Gran % (Auto) Cancelled Neut % (Auto) Cancelled Lymph % (Auto) Cancelled [place] % (Auto) Cancelled Eos % (Auto) Cancelled Baso % (Auto) Cancelled Lymph # (Auto) Cancelled [place] # (Auto) Cancelled Eos # (Auto) Cancelled Baso # (Auto) Cancelled Abs Immat Gran (auto) Cancelled Absolute Neuts (auto) Cancelled Absolute Nucleated RBC 0.000 Nucleated RBC % (auto) 0.0 Neutrophils % (Manual) 62 Band Neutrophils % 3 Lymphocytes % (Manual) 26 Monocytes % (Manual) 7 Eosinophils % (Manual) 2 Abs Neuts (Manual) 3.7 Lymphocytes # (Manual) 1.5 Monocytes # (Manual) 0.4 Eosinophils # (Manual) 0.1 Platelet Estimate NORMAL Plt Morphology Comment NORMAL RBC Morphology NORMAL Sodium Potassium Chloride Carbon Dioxide Anion Gap BUN Creatinine Estim Creat Clear Calc Estimated GFR POC Glucose 98 99 Random Glucose Calcium 10/20/21 10/20/21 10/20/21 06:02 07:15 11:22 WBC RBC Hgb Hct MCV MCH MCHC RDW Plt Count MPV Immature Gran % (Auto) Neut % (Auto) Lymph % (Auto) [place] % (Auto) Eos % (Auto) Baso % (Auto) Lymph # (Auto) [place] # (Auto) Eos # (Auto) Baso # (Auto) Abs Immat Gran (auto) Absolute Neuts (auto) Absolute Nucleated RBC Nucleated RBC % (auto) Neutrophils % (Manual) Band Neutrophils % Lymphocytes % (Manual) Monocytes % (Manual) Eosinophils % (Manual) Abs Neuts (Manual) Lymphocytes # (Manual) Monocytes # (Manual) Eosinophils # (Manual) Platelet Estimate Plt Morphology Comment RBC Morphology Sodium 140 Potassium 3.4 Chloride 111 H Carbon Dioxide 20 L Anion Gap 12 BUN 22 H Creatinine 1.34 Estim Creat Clear Calc 63.4 Estimated GFR 46 POC Glucose 81 98 Random Glucose 92 Calcium 8.4 Microbiology Microbiology Results: Microbiology 10/16/21 09:54 Blood - Venous Blood Culture - Final Escherichia coli 10/16/21 09:54 Blood - Venous Blood Culture - Final Escherichia coli 10/16/21 Unknown Urine clean catch - Urine [place] Urine Culture - Final Klebsiella pneumoniae Escherichia coli Procedures Date of Service Date of Service: 10/20/21 Assessment & Plan Assessment and plan (1) CRISPIN (acute kidney injury): Status: Acute (2) Obesity, morbid, BMI 40.0-49.9: Status: Acute (3) UTI (urinary tract infection): Status: Acute (4) Sepsis: Status: Acute (5) Hypokalemia: Status: Acute Assessment and Plan: CRISPIN with hypokalemia and acidosis in a diabetic woman with polyneuropathy and UTI/Sepsis DDX ATN No obstruction r/o AGN and AiN Cr is improving Suggest: Keep I > O Avoid hypotension Time Spent With Patient Time: Total time spent is greater than 50% in coordination of care (as document ed) at patient's floor/unit and/or counseling patient: Time with patient: 15 - 24 minutes Progress Note: Quality Stroke Does the patient have a stroke diagnosis?: No
--- NOTE | 2021-10-20 12:08 | MHC.CM.PN ---
PT WILL DC HOME TODAY WITH [facility] FOR PT SERVICES. PT TO ARRANGE HER OWN TRASPORTATION
== END 2021-10-20 14:33 | disposition home health service (06) | DRG 720 ==
LOC: HO.ED 12:11 → HO.EDOVER 14:36 → HO.IMC 17:44
PROVIDERS: Internal Medicine; Admitting Provider Physician Assistant Medical; Emergency Provider Emergency Medicine; PCP Internal Medicine; Visit Provider Internal Medicine
DX: A41.51 Sepsis due to Escherichia coli [E. coli] (principal); N17.0 Acute kidney failure with tubular necrosis; N39.0 Urinary tract infection, site not specified; G62.89 Other specified polyneuropathies; D69.6 Thrombocytopenia, unspecified; E11.9 Type 2 diabetes mellitus without complications; B96.20 Unspecified Escherichia coli [E. coli] as the cause of diseases classified elsewhere; E03.9 Hypothyroidism, unspecified; R65.20 Severe sepsis without septic shock; E78.5 Hyperlipidemia, unspecified; E87.6 Hypokalemia; F31.9 Bipolar disorder, unspecified; E66.01 Morbid (severe) obesity due to excess calories; K29.70 Gastritis, unspecified, without bleeding; K20.90 Esophagitis, unspecified without bleeding; Z16.12 Extended spectrum beta lactamase (ESBL) resistance; Z68.42 Body mass index [BMI] 45.0-49.9, adult; I10 Essential (primary) hypertension; Z20.822 Contact with and (suspected) exposure to COVID-19; Z79.4 Long term (current) use of insulin; Z87.891 Personal history of nicotine dependence; Z91.040 Latex allergy status; Z79.890 Hormone replacement therapy; Z79.899 Other long term (current) drug therapy
CPT/HCPCS: 0241U; 36415; 71045; 76775; 80048; 80053; 81001; 82803; 82947; 83605; 83735; 84484; 85007; 85025; 85027; 87040; 87077; 87086; 87088; 87186; 87205; 93005; 96361; 96365; 96375; 97162; 99285; 99291; 99499; J0696; J1650; J2543; J3370

== ENCOUNTER 2021-10-28 11:03 | Outpatient (REF) | payer OTHER, SELFPAY ==
[2021-10-28 14:19] LABS: MANUAL DIFF FLAG NO
[2021-10-28 14:24] LABS: Eosinophils Absolute Auto 0.2 X10*3/uL (0.0-0.4); Eosinophils Percent Auto 7.3 % (0-4); Hematocrit 39.4 % (37.0-47.0); Hemoglobin 12.3 g/dl (12.0-16.0); Imm Gran Abs Auto 0.01 X10*3/uL (0.00-0.03); Imm Gran Pct Auto 0.3 % (0.0-0.4); Lymphocytes Percent Auto 32.9 % (20-40); Mean Corpuscular HGB Conc 31.2 g/dl (31.0-35.0); Mean Corpuscular Volume 89.5 fL (80.0-98.0); Mean Platelet Volume 11.5 fL (9.4-12.3); Monocytes Absolute Auto 0.4 X10*3/uL (0.1-1.2); Monocytes Percent Auto 13.3 % (2-11); Neutrophils Absolute Auto 1.4 x10*3/uL (2.0-8.3); Neutrophils Percent Auto 45.2 % (45-73); Platelet Count 326 X10*3/uL (160-400); Red Cell Distribution Width 14.9 % (11.0-16.0)
[2021-10-28 14:25] LABS: Appearance Urine CLEAR; Color Urine YELLOW; Glucose Urine UA >=1000 MG/DL (NEG); Leukocyte Esterase Urine 1+ (NEG); Nitrite Urine NEG (NEG); PH 6.5 (5.0-8.0); Specific Gravity - Urine 1.015 (1.005-1.025); UACC Culture Trigger YES; Urine Blood 2+ (NEG); Urine Ketones NEG (NEG); Urine Protein NEG (NEG-TRACE)
[2021-10-28 14:35] LABS: Squamous Epithelial Cell Urine 3+ /LPF
[2021-10-28 14:36] LABS: Bacteria Urine TRACE /LPF
[2021-10-28 14:37] LABS: RBC Urine 0-2 /HPF (0)
[2021-10-28 14:40] LABS: Alanine Aminotransferase 25 U/L (0-31); Albumin Level 3.5 g/dL (3.5-5.0); Alkaline Phosphatase 170 U/L (39-117); Anion Gap 13 (12-20); Aspartate Amino Transferase 20 U/L (5-31); Bilirubin Total 0.4 mg/dL (0.0-1.0); Blood Urea Nitrogen 19 mg/dL (9-16); Calcium 9.1 mg/dL (8.4-10.2); Carbon Dioxide 23 mmol/L (22-29); Chloride 103 mmol/L (96-108); Cholesterol 157 mg/dL; Estimated Glomerular Filt Rate 48; Glucose Fasting 148 mg/dL (60-99); HDL Cholesterol 25 mg/dL; Potassium 4.3 mmol/L (3.3-5.1); Sodium 135 mmol/L (135-145); Total Protein 8.2 g/dL (6.5-8.0); Triglycerides 420 mg/dL
[2021-10-28 14:51] LABS: Creatinine Urine 70.66 mg/dL; Microalbum/Creatinine Ratio Ur 9.9 ug/mg cr
[2021-10-28 15:03] LABS: Free T4 (Free Thyroxine) 0.77 ng/dL (0.71-1.85); Vitamin D 25-OH Total 77.1 ng/mL (>30)
[2021-10-28 15:04] LABS: Thyroid Stimulating Hormone 4.48 uIU/mL (0.32-4.0)
[2021-10-30 20:55] LABS: LDL Cholesterol Direct 76 mg/dL (<100)
== END 2021-10-28 11:04 | disposition home or self-care (01) ==
LOC: HO.HMGCLDS 11:03
PROVIDERS: Physician Assistant Medical; Absent Provider Nurse Practitioner Gerontology; PCP Internal Medicine; Visit Provider Internal Medicine
DX: E11.65 Type 2 diabetes mellitus with hyperglycemia (principal); N17.9 Acute kidney failure, unspecified; E55.9 Vitamin D deficiency, unspecified; E03.9 Hypothyroidism, unspecified; Z86.19 Personal history of other infectious and parasitic diseases
CPT/HCPCS: 36415; 80048; 80053; 80061; 81001; 82043; 82306; 83721; 84439; 84443; 85025; 87086

== ENCOUNTER → 2021-11-09 12:48 | Outpatient (BNVA) | payer OTHER, SELFPAY | PROVIDERS: PCP Internal Medicine; Visit Provider Advanced Practice Midwife | DX: Z30.42 Encounter for surveillance of injectable contraceptive (principal) | CPT/HCPCS: 96372; 99211 ==

== ENCOUNTER 2021-11-23 18:13 | Outpatient (REF) | payer OTHER, SELFPAY | END 2021-11-23 18:14 | disposition home or self-care (01) | LOC: HO.LNP 18:13 | PROVIDERS: Visit Provider Internal Medicine | DX: Z20.822 Contact with and (suspected) exposure to COVID-19 (principal); J06.9 Acute upper respiratory infection, unspecified | CPT/HCPCS: U0003; U0005 ==

== ENCOUNTER 2021-11-29 11:20 | Inpatient (IN) | payer OTHER, SELFPAY ==
--- NOTE | ~2021-11-29 | MR_ITS ---
MRI OF THE BRAIN WITHOUT IV CONTRAST INDICATION: Dystonia. Aphasia. COMPARISON: Brain MRI 12/10/2021. TECHNIQUE: Multiplanar multisequence MR imaging of the brain was obtained without IV contrast. FINDINGS: Artifactually degraded MRI of the brain. No definite parenchymal signal abnormality with assessment limited by artifact. There is no hydrocephalus, extra-axial surface collection, or herniation. The major flow voids at the skull base are preserved. There is no acute infarct on diffusion-weighted imaging. There is no intracranial hemorrhage on the gradient recalled echo acquisition. The midline structures are normal. The cerebellar tonsils are normally positioned. The cerebellum and brainstem are normal. The craniocervical junction is normal. Osseous marrow signal intensity is homogenous. The visualized soft tissues are unremarkable. Mild mucosal thickening within the maxillary sinuses and sphenoid sinuses bilaterally. MR/MR head/brain wo con IMPRESSION: Exam is technically limited by artifact. No acute infarcts. No definite significant intracranial findings though assessment is limited.
--- NOTE | ~2021-11-29 | XR_ITS ---
EXAMINATION: XR CHEST CLINICAL INFORMATION: Fever. Covid infection. COMPARISON: Previous chest x-ray most recent 11/29/2021 and chest CTA 11/30/2021 TECHNIQUE: Frontal view of the chest was obtained. FINDINGS: The cardiac and mediastinal contours are stable. The lung volumes are low. There are bilateral multilobar infiltrates not appreciably changed. There is no pleural effusion or pneumothorax. Bony structures are unremarkable. XR/XR chest 1V IMPRESSION: Low lung volumes and bilateral infiltrates similar to recent exams.
--- NOTE | ~2021-11-29 | CT_ITS ---
EXAMINATION: CT abdomen pelvis wo con CLINICAL INFORMATION: Reason for Exam Sepsis , intraabdominal source ? COMPARISON: Prior CT 2019 TECHNIQUE: Multidetector volumetric imaging was performed from the superior aspect of the liver through the pubic symphysis , noncontrasted study. Sagittal and coronal reformatted images were obtained on the technologist's workstation. This CT examination was performed using dose optimization techniques as appropriate, variously including the following: *Automated exposure control *Adjustment of mA and/or kV according to patient size (this includes techniques or standardized protocols for targeted exams where dose is matched to indication/reason for exam; i.e. extremities or head) *Use of iterative reconstruction technique DLP: 966 mGy-cm FINDINGS: LOWER THORAX: There are infiltrates and subsegmental atelectasis at both right and left lung base. Presumably pneumonia. HEPATOBILIARY: No focal hepatic lesions. No biliary ductal dilatation. GALLBLADDER: Gallbladder unremarkable. SPLEEN: Spleen is normal in size. PANCREAS: No focal mass or ductal dilatation. STOMACH AND GASTROINTESTINAL TRACT: There is gastric tube the tip of which is in the gastric antrum. Visualized small bowel's are normal. Excess amount of stool in the colon and especially the rectum suggesting possible fecal impaction. ADRENALS: No adrenal nodules. KIDNEYS/URETERS: No hydronephrosis, stones or solid mass lesions. URINARY BLADDER: There is a Kern catheter in place. There is air in the urinary bladder probably from instrumentation. There is circumferential wall thickening of the urinary bladder, although in part due to decompression, cannot rule out diffuse disease process cystitis. PELVIC VISCERA: Uterus and adnexa are unremarkable. No free air or fluid. PERITONEUM: No free air or fluid. LYMPH NODES: No lymphadenopathy. VASCULAR:Abdominal aorta normal in size, no aneurysm found. BONES, ABDOMINAL WALL AND SOFT TISSUES: Small right paraumbilical hernia containing fat and mesentery. CT/CT abdomen pelvis wo con IMPRESSION: *Pulmonary infiltrates and subsegmental atelectasis developed at the lung bases bilaterally presumably pneumonia. *Circumferential wall thickening of the urinary bladder, suspect possible cystitis. There is a Kern catheter in place. *Excess amount of stool especially in the rectum suggests possible fecal impaction. *Abdomen otherwise is unremarkable. No evidence of bowel obstruction. No CT evidence of other intra-abdominal inflammatory process. *Small anterior abdominal wall hernia containing fat.
--- NOTE | ~2021-11-29 | CT_ITS ---
EXAMINATION: CT CHEST WITHOUT CONTRAST CLINICAL INFORMATION: Follow up COVID. COMPARISON: CTA of the chest dated from 11/30/2021. TECHNIQUE: Multidetector volumetric CT imaging of the chest was done. Axial MIP volume rendering provided. Sagittal and coronal reformatted images were obtained. This CT examination was performed using dose optimization techniques as appropriate, variously including the following: *Automated exposure control *Adjustment of mA and/or kV according to patient size (this includes techniques or standardized protocols for targeted exams where dose is matched to indication/reason for exam; i.e. extremities or head) *Use of iterative reconstruction technique DLP: 335 mGy-cm FINDINGS: LUNGS: Evaluation is limited by respiratory motion. Redemonstration of multifocal airspace opacities which are increased in size and density in the lower lungs. There is also increased hazy attenuation of the parenchyma in the upper lungs. MEDIASTINUM: The endotracheal tube terminates at 1 cm above the zuleyka, similar since earlier today. Normal heart size. No pericardial effusion. No hilar or mediastinal lymphadenopathy. Normal appearance of the thyroid gland. A left-sided chest port terminates at the level of the cavoatrial junction. PLEURA: New trace amount of bilateral pleural pleural fluid. No pneumothorax. AXILLA: No lymphadenopathy. UPPER ABDOMEN: Enteric tube terminates in the distal stomach. OSSEOUS STRUCTURES: No acute or aggressive osseous abnormalities. CT/CT chest wo con IMPRESSION: Worsening pulmonary aeration with increased airspace opacities in the lower lungs, worsening hazy attenuation of the upper lobes, and new small bilateral pleural effusions. The endotracheal tube terminates at 1 cm above the zuleyka, similar since earlier today. Recommend repositioning.
--- NOTE | ~2021-11-29 | XR_ITS ---
EXAMINATION: XR CHEST CLINICAL INFORMATION: Intubated COMPARISON: Chest CT and chest x-ray 12/13/2021 TECHNIQUE: Frontal view of the chest was obtained. FINDINGS: Endotracheal tube terminates approximately 2.5 cm above the level the zuleyka. Enteric tube terminates below the level the diaphragm, beyond the parameters of today's x-ray. Left-sided jugular catheter appears similar, terminating within the right atrium. The lungs are hypoinflated. There is no gross lobar consolidation. Subtle hazy bibasilar airspace disease appears similar. No large pleural effusion. No pneumothorax. XR/XR chest 1V IMPRESSION: -Support apparatus appears stable. -Hypoinflated lungs without lobar consolidation.
--- NOTE | ~2021-11-29 | XR_ITS ---
EXAMINATION: XR ABDOMEN KUB CLINICAL INDICATION: nausea/pain, ? constipation COMPARISON: CT angiogram chest yesterday, CT abdomen pelvis 07/29/2019 TECHNIQUE: AP view of the abdomen. FINDINGS: The bowel gas pattern is normal with no evidence of ileus or obstruction. No unusual soft tissue calcifications are noted. The bones are unremarkable. Of note, there is marked distention of the bladder rising up about 20 cm to the level of L4. XR/XR KUB IMPRESSION: No evidence of bowel obstruction. Markedly distended bladder.
--- NOTE | ~2021-11-29 | XR_ITS ---
EXAMINATION: XR CHEST CLINICAL INFORMATION: Hypoxia COMPARISON: Chest 12/12/2021 at 2:07 PM TECHNIQUE: Frontal view of the chest was obtained. FINDINGS: The lungs are hypoexpanded with atelectatic changes in left lung base. There is new patchy opacity in bilateral upper lobe Position of endotracheal tube, enteric tube and left central venous catheter tip are stable and unchanged. Heart size is normal. No gross bony abnormality. XR/XR chest 1V IMPRESSION: Stable lines and catheters. Hypoventilated lungs with new patchy opacity in both upper lobes. No change in the left lower lobe atelectasis/infiltrate.
--- NOTE | ~2021-11-29 | XR_ITS ---
EXAMINATION: XR CHEST CLINICAL INFORMATION: NG tube placement COMPARISON: Chest x-ray 1 hour ago TECHNIQUE: Frontal view of the chest was obtained. FINDINGS: Interval insertion of enteric tube which terminates below the level the diaphragm, beyond the parameters of today's chest x-ray. Similar hypoinflated lungs without pleural effusion or pneumothorax. Subtle bibasilar opacities again noted. Surgical clip projects over the left upper abdomen. XR/XR chest 1V IMPRESSION: Enteric tube in expected position.
--- NOTE | ~2021-11-29 | XR_ITS ---
EXAMINATION: XR CHEST CLINICAL INFORMATION: Left internal jugular placement. COMPARISON: 12/10/2021 TECHNIQUE: Frontal view of the chest was obtained. 2 images obtained, first at 10:15 PM and second at 10:56 PM. FINDINGS: Image 1: The endotracheal tube terminates 1 cm above the zuleyka. The left internal jugular central venous catheter crosses the midline and extends into the right subclavian vein. Enteric tube terminates in the stomach. Cardiac leads overlie the chest. Lung volumes are low. There is no focal consolidation, edema, or effusion. No pneumothorax. The cardiomediastinal silhouette is within normal limits. No acute osseous abnormality. Image 2: There is adjustment of the left internal jugular central venous catheter. It now terminates over the right atrium. The endotracheal tube appears to terminate approximately 2 cm above the zuleyka. XR/XR chest 1V IMPRESSION: Endotracheal tube terminating approximately 2 cm above the zuleyka. Right internal jugular central venous catheter terminates over the right atrium on the second image. This positioning in the atrium may be accentuated by the low lung volumes. Could consider partial retraction. Clear lungs.
--- NOTE | ~2021-11-29 | CT_ITS ---
EXAMINATION: CT ANGIOGRAM OF THE CHEST WITH AND WITHOUT CONTRAST (CT PULMONARY ANGIOGRAM FOR PE) CLINICAL INFORMATION: Reason for Exam persistent tachycardia, covid positive COMPARISON: Previous chest x-rays most recent from yesterday TECHNIQUE: Prior to contrast administration, noncontrast localization images were obtained. Subsequently, multidetector volumetric imaging was performed from the thoracic inlet to below the diaphragms following the administration of 71 mL Omnipaque 350 intravenous contrast. No contrast reaction reported Sagittal, coronal, and MIP oblique sagittal reformatted images were obtained on the CT workstation, uploaded to PACS, and reviewed. This CT examination was performed using dose optimization techniques as appropriate, variously including the following: *Automated exposure control *Adjustment of mA and/or kV according to patient size (this includes techniques or standardized protocols for targeted exams where dose is matched to indication/reason for exam; i.e. extremities or head) *Use of iterative reconstruction technique Total exam dose-length product 521 mGy-cm FINDINGS: QUALITY OF STUDY/CONTRAST BOLUS: Satisfactory. PULMONARY ARTERIES: Evaluation for pulmonary embolism is very limited due to respiratory motion artifact. No large or central pulmonary embolism is seen. THORACIC AORTA: No aneurysm or dissection. 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 There appears to be common origin of the right and left common carotid arteries. LUNG: The lungs are low. There is diffuse bilateral groundglass attenuation infiltrates compatible with Covid pneumonia. This does not appear appreciably changed from yesterday's chest x-ray. PLEURA: No pleural effusion or pneumothorax. MEDIASTINUM: Normal heart size. No pericardial effusion. No hilar or mediastinal lymphadenopathy. No evidence of septal bowing or right heart strain. CHEST WALL/AXILLA: No axillary or internal mammary lymphadenopathy. OSSEOUS STRUCTURES: No acute or suspicious osseous abnormality. UPPER ABDOMEN: There may be hepatosplenomegaly.. No reflux of contrast into the hepatic veins to suggest elevated right heart pressures. CT/CT angio chest PE protocol IMPRESSION: Limited exam due to artifact from respiratory motion. No large or central pulmonary embolism. Low lung volumes and bilateral groundglass attenuation infiltrates compatible with Covid infection. Probable hepatosplenomegaly. VTE: negative
--- NOTE | ~2021-11-29 | XR_ITS ---
EXAMINATION: XR CHEST CLINICAL INFORMATION: Dyspnea COMPARISON: Previous chest x-ray 10/16/2020 TECHNIQUE: Frontal view of the chest was obtained. FINDINGS: The cardiac and mediastinal contours are stable. The lung volumes are low. There are new bilateral multilobar areas of airspace disease or infiltrate suggestive of pneumonia. There is no pleural effusion or pneumothorax. Bony structures are unremarkable. XR/XR chest 1V IMPRESSION: Low lung volumes and new bilateral infiltrates.
--- NOTE | ~2021-11-29 | XR_ITS ---
EXAMINATION: XR CHEST CLINICAL INFORMATION: Intubated. COMPARISON: Previous chest x-ray 12/10/2021 TECHNIQUE: Frontal view of the chest was obtained. FINDINGS: There is an endotracheal tube with tip projecting over the right mainstem bronchus. There is a nasogastric tube which projects over the stomach. The tip is not seen. Left jugular line tip is not well seen. This may project over the right atrium. There is volume loss to the left hemithorax. There is increasing atelectasis or infiltrate in the left lung. The right lung is clear. There is no pleural effusion or pneumothorax. Bony structures are unremarkable. XR/XR chest 1V IMPRESSION: The endotracheal tube tip projects over the right mainstem bronchus and should be pulled back several centimeters. Volume loss to the left lung and increasing left lung atelectasis or infiltrate. Left jugular line tip is not well seen. This may project over the right atrium. Nasogastric tube projects over the stomach, tip not seen. Findings were communicated to nurse Jordana by telephone on 12/12/2021 and 3:07 PM.
--- NOTE | ~2021-11-29 | MR_ITS ---
EXAMINATION: MRI OF THE BRAIN WITHOUT CONTRAST CLINICAL INFORMATION: Metabolic encephalopathy. COMPARISON: There are no recent studies available for comparison. Comparison is made to an MRI scan of the brain 08/14/2019.. TECHNIQUE: MRI of the brain was obtained using routine sequences without contrast. Some images are degraded by patient motion artifact. Also, due to patient body habitus, the brain coil was unable to fit completely over her head. FINDINGS: No diffusion abnormalities are identified to suggest an acute or subacute infarct. No mass effect or midline shift is seen. The ventricles and sulci are commensurately prominent. There is mild increased FLAIR signal in the posterior medial thalami, less extensive compared to prior study. No extra-axial fluid collections are seen. The brainstem and cerebellum appear unremarkable on the available sequences. No pathologic magnetic susceptibility artifact is identified on the gradient refocused acquisition. The craniovertebral vertebral junction is poorly assessed due to severe patient motion artifact on the sagittal T1 images. Grossly, the midline structures appear normal. The major intracranial flow-voids at the level of the [place] are poorly visualized. There is trace fluid at the left mastoid tip. There is extensive opacification of the right maxillary sinus, left sphenoid sinus and bilateral ethmoid sinuses. MR/MR head/brain wo con IMPRESSION: 1. Suboptimal study due to patient motion artifact and habitus. 2. There are no acute bleeds or infarcts demonstrated on the available images. No masses are seen. The study redemonstrates abnormal FLAIR signal in the posterior thalami bilaterally, less extensive compared to the prior study.
--- NOTE | ~2021-11-29 | XR_ITS ---
EXAMINATION: XR CHEST CLINICAL INFORMATION: Fever COMPARISON: None TECHNIQUE: Frontal view of the chest was obtained. FINDINGS: The lungs are hypoexpanded and clear. Heart size and pulmonary vascularity is normal. No gross bony abnormality seen. XR/XR chest 1V IMPRESSION: Hypoexpanded lungs without acute process.
--- NOTE | 2021-11-29 11:36 | ECG_ITS ---
Test Reason : weakness Blood Pressure : / mmHG Vent. Rate : 115 BPM Atrial Rate : 115 BPM P-R Int : 156 ms QRS Dur : 080 ms QT Int : 326 ms P-R-T Axes : 010 045 008 degrees QTc Int : 450 ms Sinus tachycardia Otherwise normal ECG When compared with ECG of 16-OCT-2021 09:28, No significant change was found Referred By: Milagros Adam Electronically Signed By:Mayank Meadows
--- NOTE | 2021-11-29 11:39 | ED.NAVMDI ---
HPI - Nausea/Vomiting/Diarrhea General Chief complaint: Dyspnea Stated complaint: N/V,LOW ORAL INTAKE,+COVID Time Seen by Provider: 11/29/21 11:23 Source: patient, family, EMS and old records reviewed Mode of arrival: EMS Limitations: no limitations History of Present Illness HPI Narrative: father notes patient has had symptoms x 11 days but tested positive this past Thursday 11/23 was supposed to receive IVIG today but given fevers, tachycardia and low O2 sats she cannot receive injection - has not cleared her symptoms unlike the rest of her family, also c/o dysuria. received 2 [employer] vaccines MD elicited complaint: nausea, vomiting and other (fevers, cough, chills, malaise, loss of appetite) Pertinent past history: other (COVID + 11/23) Onset (ago): day(s) () Description of vomiting: food contents and watery Associated nausea: Yes Associated abdominal pain: No Pain consistency: intermittent Severity: mild Quality: dull (c/o some mild suprapubic discomfort at times and problems urinating to her father) Exacerbating factors: eating Relieving factors: none Context: sick contacts (son had COVID - other family members did as well) Associated symptoms: cough, fever/chills, loss of appetite, malaise, nausea/vomiting and weakness Treatment prior to arrival: none Related Data Home Medications Medication Instructions Recorded Confirmed bupropion HCl 100 mg tablet,12 hr 100 mg PO QAM 11/30/20 11/29/21 sustained-release trazodone 100 mg tablet 100 mg PO BEDTIME 11/30/20 11/29/21 cranberry 400 mg capsule 450 mg PO DAILY cap 03/22/21 11/29/21 melatonin 3 mg tablet 6 mg PO DAILY 03/22/21 11/29/21 multivitamin 1 tab PO DAILY 03/22/21 11/29/21 pregabalin 300 mg capsule 300 mg PO BID cap 05/10/21 11/29/21 thiamine HCl (vitamin B1) 100 mg 100 mg PO DAILY 06/09/21 11/29/21 tablet rituximab 10 mg/mL IV [id number] 08/11/21 11/14/21 concentrate,intravenous oxcarbazepine 150 mg tablet 450 mg PO BID tab 08/18/21 11/29/21 immune globulin,gamma(IgG)slra 10 ml IV Q4W 10/11/21 11/14/21 % intravenous solution cholecalciferol (vitamin D3) 1,250 1,250 mcg PO MO 10/16/21 11/29/21 mcg (50,000 unit) capsule chlorhexidine gluconate 0.12 % 15 ml PO BID 11/29/21 11/29/21 mouthwash quetiapine 200 mg tablet 1 tab PO BEDTIME 11/29/21 11/29/21 quetiapine 400 mg tablet 1 tab PO BEDTIME 11/29/21 11/29/21 Previous Rx's Medication Instructions Recorded blood sugar diagnostic (FreeStyle #100 ea 05/10/21 Lite Strips) insulin degludec 200 unit/mL (3 20 unit (0.1 mL) SUBCUT BEDTIME 30 05/10/21 mL) subcutaneous [facility] ml FlexTouch U-200 insulin) lancets 28 gauge (FreeStyle #100 ea 05/10/21 Lancets) blood-glucose meter (FreeStyle #1 ea 05/31/21 Lite Meter) ferrous sulfate 325 mg (65 mg 325 mg PO BID #60 cap 06/21/21 iron) tablet empagliflozin 10 mg tablet 10 mg PO QAM #30 tab 07/20/21 (Jardiance) metformin 500 mg tablet 500 mg PO BID #60 tab 08/08/21 pravastatin 20 mg tablet 20 mg PO BEDTIME #30 tab 09/16/21 levothyroxine 75 mcg tablet 75 mcg PO QAM #30 cap 09/26/21 (Euthyrox) medroxyprogesterone 150 mg/mL 150 mg IM Q12W #1 ml 11/08/21 intramuscular suspension pen needle, diabetic 32 gauge x #50 ea 11/17/21 (BD Wendy 2nd Gen Pen Needle) omega-3 fatty acids 1,000 mg 2,000 mg PO BID #120 cap 11/18/21 capsule magnesium oxide 400 mg (241.3 mg 400 mg PO DAILY #30 tab 11/22/21 magnesium) tablet pantoprazole 40 mg tablet,delayed 40 mg PO DAILY #30 cap 11/22/21 release albuterol sulfate 90 mcg/actuation 1 inh INHALATION QID PRN #6.7 g 11/23/21 aerosol inhaler Allergies Allergy/AdvReac Type Severity Reaction Status Date / Time latex Allergy Unknown rash Verified 11/14/21 00:57 metoclopramide [From REGLAN] AdvReac Unknown INTERACTS Verified 11/14/21 00:57 W/ SEROQUEL Review of Systems Review of Systems: Constitutional : No Weight loss, pos Fever, pos Chills ENT/Mouth : No sore throat, No Rhinorrhea Eyes: No Swelling, No Redness Cardiovascular : No Chest Pain, No SOB, NoEdema Respiratory : pos Cough, pos Sputum, No Wheezing Gastrointestinal : Positive Nausea, Positive Vomiting, no Diarrhea, no abdominal Pain, No Hematochezia, No Melena Genitourinary : pos Dysuria, No Urinary Frequency, No Hematuria, No Urgency Musculoskeletal : No joint pain, No Myalgias, No Joint Swelling Skin : No Skin Lesions, No rash Neuro : pos Weakness, No Numbness, No Dizziness, No Headache Psych : No Anxiety/Panic, No Depression Heme/Lymph: No Bruising, No Lymphadenopathy Endocrine : No Polyuria, No Polydipsia All other systems reviewed and are negative. Gastrointestinal: Gastrointestinal: Reports nausea PMFSH Past Medical History Attestation statement: The following information was validated with the patient. Medical History (Updated 11/29/21 @ 17:07 by Anila Muniz NP) Acquired hypothyroidism Bipolar disorder Blurred vision, bilateral Clinical decompensation Diabetes mellitus with hyperglycemia Elevated vitamin B12 level Esophagitis with gastritis Essential hypertension Gait instability Gastric paresis Hx of Escherichia coli septicemia Hyperlipidemia Muscle weakness Obesity, morbid, BMI 40.0-49.9 Peripheral neuropathy Vitamin D deficiency Surgical History Hx of section Hx of tooth extraction Family History Family History Other Adopted Social History Social History Household Members: Family Housing: House Do you presently have visiting nurse or other home services: No Alcohol intake: never Patient Tobacco Use Status: Former Tobacco user Use of substances other than those prescribed or required for medical reasons: No Advance Directives: No Advance Directives Information Provided: No service: No Current occupational status: disabled Gender identity: Female Physical Exam Vital Signs: Vital Signs: Last Vital Signs Temp 98.8 F 11/29/21 18:20 Pulse 109 H 11/29/21 18:20 Resp 18 11/29/21 18:20 BP 118/68 11/29/21 18:20 Pulse Ox 94 11/29/21 18:20 Oxygen Flow Rate 4 11/29/21 11:52 BMI result Body Mass Index 47.5 Appearance: Alert. Oriented X3. Mild acute distress. Eyes: Pupils equal, round and reactive to light. ENT: Pharynx normal. Neck: Normal inspection. Neck supple. CVS: tachycardic heart rate and rhythm. Pulses normal. Respiratory: No respiratory distress. Breath sounds diminished with rhonchi Abdomen: Soft and non-tender. Skin: Skin warm and dry. Normal skin color. Normal skin turgor. Extremities: No lower extremity edema. No calf ttp Neuro: Oriented X 3. No motor deficit. No sensory deficit. Course Course Course Narrative: 89% on RA will add on dexamethasone now 96% on 4L NC meropenem ordered for UTI planned to admit MDM - Nausea/Vomiting/Diarrhea MDM Narrative Medical decision making narrative: 31 yo female with hx of HTN, HLD, UTI ESBL + E. Coli, autoimmune polyneuropathy receives Q4week IVIG, symptomatic with COVID URI and n/v for COVID x 11 days tested positive on 11/23 - at this time will need labs, cultures, PO tylenol, gentle fluids, CXR, COVID panel of labs, albuterol INH, currently 93% on RA, UA for possible infection if positive will need empiric ertapanem given prior sensitivities - suspect given her history has superimposed bacterial infection will start empiric antibiotics. Lab Data Result diagrams: 11/29/21 12:46 11/29/21 12:46 Labs: Lab Results 11/29/21 11/29/21 11/29/21 Range/Units 12:46 12:46 12:46 WBC 5.3 (4.8-10.8) X10*3/uL RBC 4.72 (4.20-5.50) X10*6/uL Hgb 13.5 (12.0-16.0) g/dl Hct 40.9 (37.0-47.0) % MCV 86.7 (80.0-98.0) fL MCH 28.6 (27.0-33.0) pg MCHC 33.0 (31.0-35.0) g/dl RDW 14.9 (11.0-16.0) % Plt Count 238 D (160-400) X10*3/uL MPV 10.5 (9.4-12.3) fL Immature Gran % (Auto) 0.7 H (0.0-0.4) % Neut % (Auto) 80.8 H (45-73) % Lymph % (Auto) 9.7 L (20-40) % [place] % (Auto) 7.9 (2-11) % Eos % (Auto) 0.7 (0-4) % Baso % (Auto) 0.2 (0-2) % Lymph # (Auto) 0.5 L (1.2-4.9) X10*3/uL [place] # (Auto) 0.4 (0.1-1.2) X10*3/uL Eos # (Auto) 0.0 (0.0-0.4) X10*3/uL Baso # (Auto) 0.0 (0.0-0.2) X10*3/uL Abs Immat Gran (auto) 0.04 H (0.00-0.03) X10*3/uL Absolute Neuts (auto) 4.3 (2.0-8.3) x10*3/uL Absolute Nucleated RBC 0.000 (0.0-0.012) X10*3/uL Nucleated RBC % (auto) 0.0 (0.0-0.2) /100WBC D-Dimer High Sensitivty 183 NG/ML VBG pH (7.32-7.43) VBG pCO2 mmHg VBG pO2 mmHg VBG HCO3 (22-26) mmol/L VBG O2 Saturation % VBG Base Excess mmol/L Sodium 143 (135-145) mmol/L Potassium 3.7 (3.3-5.1) mmol/L Chloride 109 H (96-108) mmol/L Carbon Dioxide 22 (22-29) mmol/L Anion Gap 16 (12-20) BUN 9 D (9-16) mg/dL Creatinine 0.88 (0.5-1.4) mg/dL Estim Creat Clear Calc 99.3 Estimated GFR > 60 Random Glucose 123 H (60-115) mg/dL Lactic Acid (0.5-2.0) mmol/L Calcium 8.6 (8.4-10.2) mg/dL Magnesium 2.3 (1.6-2.6) mg/dL Ferritin 6287 H (10-122) ng/mL Total Bilirubin 0.4 (0.0-1.0) mg/dL Direct Bilirubin 0.3 (0.0-0.5) mg/dL AST 65 H (5-31) U/L ALT 38 H (0-31) U/L Alkaline Phosphatase 135 H D (39-117) U/L Lactate Dehydrogenase 529 H (122-220) U/L Total Creatine Kinase 87 (26-140) U/L Troponin I High Sens (<3.5-17.0) ng/L C-Reactive Protein 9.89 H (< or = 0.50) mg/dL Total Protein 7.0 (6.5-8.0) g/dL Albumin 3.9 (3.5-5.0) g/dL Lipase 55 (8-78) U/L Procalcitonin ng/mL Beta HCG, Quant < 2 mIU/mL Urine Color Urine Appearance Urine pH (5.0-8.0) Ur Specific [place] (1.005-1.025) Urine Protein (NEG-TRACE) MG/DL Urine Glucose (UA) (NEG) MG/DL Urine Ketones (NEG) MG/DL Urine Blood (NEG) Urine Nitrite (NEG) Ur Leukocyte Esterase (NEG) Urine RBC (0) /HPF Urine WBC (0-4) /HPF Ur Squamous Epith Cells /LPF Urine Bacteria /LPF Urine Yeast /HPF COVID-19 (NATASHA) (Negative) COVID-19 Clin Com 11/29/21 11/29/21 11/29/21 Range/Units 12:46 12:46 12:46 WBC (4.8-10.8) X10*3/uL RBC (4.20-5.50) X10*6/uL Hgb (12.0-16.0) g/dl Hct (37.0-47.0) % MCV (80.0-98.0) fL MCH (27.0-33.0) pg MCHC (31.0-35.0) g/dl RDW (11.0-16.0) % Plt Count (160-400) X10*3/uL MPV (9.4-12.3) fL Immature Gran % (Auto) (0.0-0.4) % Neut % (Auto) (45-73) % Lymph % (Auto) (20-40) % [place] % (Auto) (2-11) % Eos % (Auto) (0-4) % Baso % (Auto) (0-2) % Lymph # (Auto) (1.2-4.9) X10*3/uL [place] # (Auto) (0.1-1.2) X10*3/uL Eos # (Auto) (0.0-0.4) X10*3/uL Baso # (Auto) (0.0-0.2) X10*3/uL Abs Immat Gran (auto) (0.00-0.03) X10*3/uL Absolute Neuts (auto) (2.0-8.3) x10*3/uL Absolute Nucleated RBC (0.0-0.012) X10*3/uL Nucleated RBC % (auto) (0.0-0.2) /100WBC D-Dimer High Sensitivty NG/ML VBG pH (7.32-7.43) VBG pCO2 mmHg VBG pO2 mmHg VBG HCO3 (22-26) mmol/L VBG O2 Saturation % VBG Base Excess mmol/L Sodium (135-145) mmol/L Potassium (3.3-5.1) mmol/L Chloride (96-108) mmol/L Carbon Dioxide (22-29) mmol/L Anion Gap (12-20) BUN (9-16) mg/dL Creatinine (0.5-1.4) mg/dL Estim Creat Clear Calc Estimated GFR Random Glucose (60-115) mg/dL Lactic Acid (0.5-2.0) mmol/L Calcium (8.4-10.2) mg/dL Magnesium (1.6-2.6) mg/dL Ferritin (10-122) ng/mL Total Bilirubin (0.0-1.0) mg/dL Direct Bilirubin (0.0-0.5) mg/dL AST (5-31) U/L ALT (0-31) U/L Alkaline Phosphatase (39-117) U/L Lactate Dehydrogenase (122-220) U/L Total Creatine Kinase (26-140) U/L Troponin I High Sens (<3.5-17.0) ng/L C-Reactive Protein (< or = 0.50) mg/dL Total Protein (6.5-8.0) g/dL Albumin (3.5-5.0) g/dL Lipase (8-78) U/L Procalcitonin 0.18 ng/mL Beta HCG, Quant Cancelled mIU/mL Urine Color Urine Appearance Urine pH (5.0-8.0) Ur Specific [place] (1.005-1.025) Urine Protein (NEG-TRACE) MG/DL Urine Glucose (UA) (NEG) MG/DL Urine Ketones (NEG) MG/DL Urine Blood (NEG) Urine Nitrite (NEG) Ur Leukocyte Esterase (NEG) Urine RBC (0) /HPF Urine WBC (0-4) /HPF Ur Squamous Epith Cells /LPF Urine Bacteria /LPF Urine Yeast /HPF COVID-19 (NATASHA) Positive A (Negative) COVID-19 Clin Com See Note 11/29/21 11/29/21 11/29/21 Range/Units 12:50 13:52 13:52 WBC (4.8-10.8) X10*3/uL RBC (4.20-5.50) X10*6/uL Hgb (12.0-16.0) g/dl Hct (37.0-47.0) % MCV (80.0-98.0) fL MCH (27.0-33.0) pg MCHC (31.0-35.0) g/dl RDW (11.0-16.0) % Plt Count (160-400) X10*3/uL MPV (9.4-12.3) fL Immature Gran % (Auto) (0.0-0.4) % Neut % (Auto) (45-73) % Lymph % (Auto) (20-40) % [place] % (Auto) (2-11) % Eos % (Auto) (0-4) % Baso % (Auto) (0-2) % Lymph # (Auto) (1.2-4.9) X10*3/uL [place] # (Auto) (0.1-1.2) X10*3/uL Eos # (Auto) (0.0-0.4) X10*3/uL Baso # (Auto) (0.0-0.2) X10*3/uL Abs Immat Gran (auto) (0.00-0.03) X10*3/uL Absolute Neuts (auto) (2.0-8.3) x10*3/uL Absolute Nucleated RBC (0.0-0.012) X10*3/uL Nucleated RBC % (auto) (0.0-0.2) /100WBC D-Dimer High Sensitivty NG/ML VBG pH 7.43 (7.32-7.43) VBG pCO2 26 mmHg VBG pO2 44 mmHg VBG HCO3 18 L (22-26) mmol/L VBG O2 Saturation 72.0 % VBG Base Excess -4.1 mmol/L Sodium (135-145) mmol/L Potassium (3.3-5.1) mmol/L Chloride (96-108) mmol/L Carbon Dioxide (22-29) mmol/L Anion Gap (12-20) BUN (9-16) mg/dL Creatinine (0.5-1.4) mg/dL Estim Creat Clear Calc Estimated GFR Random Glucose (60-115) mg/dL Lactic Acid 1.0 (0.5-2.0) mmol/L Calcium (8.4-10.2) mg/dL Magnesium (1.6-2.6) mg/dL Ferritin (10-122) ng/mL Total Bilirubin (0.0-1.0) mg/dL Direct Bilirubin (0.0-0.5) mg/dL AST (5-31) U/L ALT (0-31) U/L Alkaline Phosphatase (39-117) U/L Lactate Dehydrogenase (122-220) U/L Total Creatine Kinase (26-140) U/L Troponin I High Sens 10.1 D (<3.5-17.0) ng/L C-Reactive Protein (< or = 0.50) mg/dL Total Protein (6.5-8.0) g/dL Albumin (3.5-5.0) g/dL Lipase (8-78) U/L Procalcitonin ng/mL Beta HCG, Quant mIU/mL Urine Color Urine Appearance Urine pH (5.0-8.0) Ur Specific [place] (1.005-1.025) Urine Protein (NEG-TRACE) MG/DL Urine Glucose (UA) (NEG) MG/DL Urine Ketones (NEG) MG/DL Urine Blood (NEG) Urine Nitrite (NEG) Ur Leukocyte Esterase (NEG) Urine RBC (0) /HPF Urine WBC (0-4) /HPF Ur Squamous Epith Cells /LPF Urine Bacteria /LPF Urine Yeast /HPF COVID-19 (NATASHA) (Negative) COVID-19 Clin Com 11/29/21 Range/Units 14:39 WBC (4.8-10.8) X10*3/uL RBC (4.20-5.50) X10*6/uL Hgb (12.0-16.0) g/dl Hct (37.0-47.0) % MCV (80.0-98.0) fL MCH (27.0-33.0) pg MCHC (31.0-35.0) g/dl RDW (11.0-16.0) % Plt Count (160-400) X10*3/uL MPV (9.4-12.3) fL Immature Gran % (Auto) (0.0-0.4) % Neut % (Auto) (45-73) % Lymph % (Auto) (20-40) % [place] % (Auto) (2-11) % Eos % (Auto) (0-4) % Baso % (Auto) (0-2) % Lymph # (Auto) (1.2-4.9) X10*3/uL [place] # (Auto) (0.1-1.2) X10*3/uL Eos # (Auto) (0.0-0.4) X10*3/uL Baso # (Auto) (0.0-0.2) X10*3/uL Abs Immat Gran (auto) (0.00-0.03) X10*3/uL Absolute Neuts (auto) (2.0-8.3) x10*3/uL Absolute Nucleated RBC (0.0-0.012) X10*3/uL Nucleated RBC % (auto) (0.0-0.2) /100WBC D-Dimer High Sensitivty NG/ML VBG pH (7.32-7.43) VBG pCO2 mmHg VBG pO2 mmHg VBG HCO3 (22-26) mmol/L VBG O2 Saturation % VBG Base Excess mmol/L Sodium (135-145) mmol/L Potassium (3.3-5.1) mmol/L Chloride (96-108) mmol/L Carbon Dioxide (22-29) mmol/L Anion Gap (12-20) BUN (9-16) mg/dL Creatinine (0.5-1.4) mg/dL Estim Creat Clear Calc Estimated GFR Random Glucose (60-115) mg/dL Lactic Acid (0.5-2.0) mmol/L Calcium (8.4-10.2) mg/dL Magnesium (1.6-2.6) mg/dL Ferritin (10-122) ng/mL Total Bilirubin (0.0-1.0) mg/dL Direct Bilirubin (0.0-0.5) mg/dL AST (5-31) U/L ALT (0-31) U/L Alkaline Phosphatase (39-117) U/L Lactate Dehydrogenase (122-220) U/L Total Creatine Kinase (26-140) U/L Troponin I High Sens (<3.5-17.0) ng/L C-Reactive Protein (< or = 0.50) mg/dL Total Protein (6.5-8.0) g/dL Albumin (3.5-5.0) g/dL Lipase (8-78) U/L Procalcitonin ng/mL Beta HCG, Quant mIU/mL Urine Color YELLOW Urine Appearance CLOUDY Urine pH 6.5 (5.0-8.0) Ur Specific [place] 1.020 (1.005-1.025) Urine Protein 2+ H (NEG-TRACE) MG/DL Urine Glucose (UA) 500 H (NEG) MG/DL Urine Ketones 40 (NEG) MG/DL Urine Blood 1+ H (NEG) Urine Nitrite POS H (NEG) Ur Leukocyte Esterase TRACE H (NEG) Urine RBC 1-4 (0) /HPF Urine WBC 10-14 H (0-4) /HPF Ur Squamous Epith Cells 3+ /LPF Urine Bacteria 3+ /LPF Urine Yeast TRACE /HPF COVID-19 (NATASHA) (Negative) COVID-19 Clin Com ECG Data Attestation: I personally reviewed and interpreted this ECG as follows: ECG interpretation date: 11/29/21 ECG interpretation time: 14:11 Interpretation: Rate: 115 Rhythm: sinus tachycardia [place]: normal Normal P waves. Normal AMAYA. Normal QRS complex. ST T wave : nonspecific no JES qTC: normal prior studies: no acute ischemia The study has been interpreted contemporaneously by me. . Critical Care Time Critical Care Time Critical Care Time: Yes Total Critical Care Time: 35 Attestation: albuterol INH, IVF, IV antibiotics, supplemental O2 for hypoxia I attest to this time spent taking care of the patient Discharge Plan Discharge Clinical Impression: Pneumonia due to 2019 novel coronavirus, Hypoxia Fever Qualifiers: Fever type: unspecified Qualified Code(s): R50.9 - Fever, unspecified UTI (urinary tract infection) Qualifiers: Urinary tract infection type: site unspecified Hematuria presence: with hematuria Qualified Code(s): N39.0 - Urinary tract infection, site not specified Patient Disposition: Admitted As Inpatient
[2021-11-29 11:50] VITALS: PULSE 128; RESP 24; O2SAT 89
[2021-11-29] MEDS: Albuterol Sulfate 90 MCG 8 GM INHALER 4 PUFF INHALE (11:50)
[2021-11-29] MEDS: 0.9 % Sodium Chloride 1,000 ML 999 ML IVCONT (11:51)
[2021-11-29] MEDS: ondansetron HCL 4 MG/2 ML VIAL IVPUSH (11:51)
[2021-11-29 11:52] VITALS: BP 119/75; BP 144/99; PULSE 120; PULSE 124; RESP 22; TEMP 38.5; O2SAT 96; BMI 47.5
[2021-11-29 11:56] VITALS: PULSE 124; RESP 18; O2SAT 88
[2021-11-29] MEDS: Acetaminophen 325 MG TABLET 650 MG PO (12:06)
--- NOTE | 2021-11-29 12:14 | PHA.MEDREC ---
Addendum entered by Yue Lemus RPh 11/29/21 12:15: Patient came with same list as last time. Called Dr Daley's office to confirm quetiapine and oxcarbezapine dose. Patient is suppose to be taking 400 mg and 200 mg of quetiapine. Patient was suppose to get IVIG today. She completed her course of azithromycin. Original Note: Pharmacy Consult ? Medication Reconciliation Pharmacy has completed the medication reconciliation.
[2021-11-29 12:54] LABS: MANUAL DIFF FLAG NO
[2021-11-29 12:56] LABS: Basophils Percent Auto 0.2 % (0-2); Eosinophils Percent Auto 0.7 % (0-4); Hematocrit 40.9 % (37.0-47.0); Hemoglobin 13.5 g/dl (12.0-16.0); Imm Gran Abs Auto 0.04 X10*3/uL (0.00-0.03); Imm Gran Pct Auto 0.7 % (0.0-0.4); Lymphocytes Absolute Auto 0.5 X10*3/uL (1.2-4.9); Lymphocytes Percent Auto 9.7 % (20-40); Mean Corpuscular Hemoglobin 28.6 pg (27.0-33.0); Mean Corpuscular Volume 86.7 fL (80.0-98.0); Mean Platelet Volume 10.5 fL (9.4-12.3); Monocytes Absolute Auto 0.4 X10*3/uL (0.1-1.2); Monocytes Percent Auto 7.9 % (2-11); Neutrophils Absolute Auto 4.3 x10*3/uL (2.0-8.3); Neutrophils Percent Auto 80.8 % (45-73); Platelet Count 238 X10*3/uL (160-400); Red Blood Count 4.72 X10*6/uL (4.20-5.50); Red Cell Distribution Width 14.9 % (11.0-16.0); White Blood Count 5.3 X10*3/uL (4.8-10.8)
[2021-11-29 12:57] LABS: Venous Blood Gas Refer to POC result
[2021-11-29 12:58] LABS: VBG Base Excess -4.1 mmol/L; VBG HCO3 18 mmol/L (22-26); VBG pCO2 26 mmHg; VBG pH 7.43 (7.32-7.43); VBG pO2 44 mmHg
[2021-11-29 13:05] LABS: COVID-19 Test Positive (Negative); D Dimer High Sensitivity 183 NG/ML
[2021-11-29 13:26] LABS: Lactate Dehydrogenase 529 U/L (122-220)
[2021-11-29 13:34] LABS: Alanine Aminotransferase 38 U/L (0-31); Albumin Level 3.9 g/dL (3.5-5.0); Alkaline Phosphatase 135 U/L (39-117); Anion Gap 16 (12-20); Aspartate Amino Transferase 65 U/L (5-31); Bilirubin Direct 0.3 mg/dL (0.0-0.5); Bilirubin Total 0.4 mg/dL (0.0-1.0); Blood Urea Nitrogen 9 mg/dL (9-16); C Reactive Protein 9.89 mg/dL (< or = 0.50); Calcium 8.6 mg/dL (8.4-10.2); Carbon Dioxide 22 mmol/L (22-29); Chloride 109 mmol/L (96-108); Creatinine Clr Calc Pharmacy 99.3; Estimated Glomerular Filt Rate > 60; Glucose Random 123 mg/dL (60-115); Lipase 55 U/L (8-78); Magnesium 2.3 mg/dL (1.6-2.6); Potassium 3.7 mmol/L (3.3-5.1); Sodium 143 mmol/L (135-145)
[2021-11-29 13:40] LABS: Procalcitonin 0.18 ng/mL
[2021-11-29 13:48] LABS: HCG Quantitative < 2 mIU/mL
[2021-11-29] MEDS: dexAMETHasone sod phosphate 4 MG/ML VIAL 6 MG IVPUSH (13:54)
[2021-11-29 14:11] VITALS: BP 127/86; PULSE 116; RESP 21; TEMP 37.3; O2SAT 93
[2021-11-29 14:22] LABS: Troponin-I High Sensitivity 10.1 ng/L (<3.5-17.0)
[2021-11-29 14:27] LABS: Ferritin 6287 ng/mL (10-122)
[2021-11-29 14:47] LABS: Appearance Urine CLOUDY; Color Urine YELLOW; Glucose Urine UA 500 MG/DL (NEG); Leukocyte Esterase Urine TRACE (NEG); Nitrite Urine POS (NEG); PH 6.5 (5.0-8.0); UACC Culture Trigger YES; Urine Blood 1+ (NEG); Urine Ketones 40 MG/DL (NEG); Urine Protein 2+ MG/DL (NEG-TRACE)
[2021-11-29 15:07] LABS: Squamous Epithelial Cell Urine 3+ /LPF
[2021-11-29 15:08] LABS: Bacteria Urine 3+ /LPF
--- NOTE | 2021-11-29 17:06 | P.HPHOSP_ITS ---
History of Present Illness Date of Service: 11/29/21 Attending physician on admission: [facility] Chief Complaint: Fever 31-year-old woman with a history of multiple medical problems presenting to the ER with fever, tachycardia and hypoxia. Apparently she was receiving her IV IG (see history of autoimmune polyneuropathy). Apparently the patient had symptoms for 11 days and tested positive approximately 1 week ago. She did receive 2 Pfizer vaccines. She does have some memory issues however she denied shortness of breath, chest pain, nausea, vomiting, diarrhea, fever. She did report a dry cough. Her inflammatory markers are significantly elevated along with LFTs, urinalysis positive for UTI, recent. In the ER she received some IV fluids, Zofran, albuterol, Tylenol, Decadron, meropenem. She will be admitted for further management and treatment of acute hypoxic respiratory failure secondary to COVID-19. Review of Systems Verdana 4l Review of Systems: Verdana 4d Verdana 4d Denies any recent fever chills or decrease in appetite respiratory See HPI cardiovascular denies chest pain gastrointestinal denies any dysphagia abdominal pain nausea vomiting or diarrhea genitourinary denies any dysuria frequency or hematuria musculoskeletal denies any joint pain or swelling neuropsych denies any weakness or seizures all other systems reviewed are negative [facility] Medical History (Updated 11/29/21 @ 17:07 by Anila Muniz NP) Acquired hypothyroidism Bipolar disorder Blurred vision, bilateral Clinical decompensation Diabetes mellitus with hyperglycemia Elevated vitamin B12 level Esophagitis with gastritis Essential hypertension Gait instability Gastric paresis Hx of Escherichia coli septicemia Hyperlipidemia Muscle weakness Obesity, morbid, BMI 40.0-49.9 Peripheral neuropathy Vitamin D deficiency Family History Other Adopted Surgical History Hx of section Hx of tooth extraction Social History Household Members: Family Housing: House Do you presently have visiting nurse or other home services: No Alcohol intake: never Patient Tobacco Use Status: Former Tobacco user Use of substances other than those prescribed or required for medical reasons: No Advance Directives: No Advance Directives Information Provided: No service: No Current occupational status: disabled Gender identity: Female Meds Allergies Allergy/AdvReac Type Severity Reaction Status Date / Time latex Allergy Unknown rash Verified 11/14/21 00:57 metoclopramide [From AdvReac Unknown INTERACTS Verified 11/14/21 00:57 REGLAN] W/ SEROQUEL Active Medications: Current Medications Acetaminophen (Acetaminophen 325 Mg Tablet) 650 mg PO Q6H PRN PRN Reason: Pain, Mild (Pain Scale 1-3) Dexamethasone Sodium Phosphate (Dexamethasone Sod Phosphate 4 Mg/Ml Vial) 6 mg IVPUSH DAILY RADHA Stop: 12/08/21 09:01 Enoxaparin Sodium (Enoxaparin Sodium 40 Mg/0.4 Ml Syringe) 40 mg SUBCUT Q24H RADHA Ondansetron HCl (Ondansetron Hcl 4 Mg/2 Ml Vial) 4 mg IVPUSH Q8H PRN PRN Reason: Nausea and Vomiting Pharmacy Consult (Consult Rx Perform Med Rec) 1 each MISCELLANE ONCE PRN PRN Reason: Consult order Sodium Chloride (0.9 % Sodium Chloride Flush 3 Ml Syringe) 3 ml IVFLUSH QSHIFT [facility] Home Medications Medication Instructions Recorded Confirmed Last Taken Type bupropion HCl 100 100 mg PO QAM 11/30/20 11/29/21 11/28/21 History mg tablet,12 hr sustained-release trazodone 100 mg 100 mg PO 11/30/20 11/29/21 11/28/21 History tablet BEDTIME cranberry 400 mg 450 mg PO DAILY 03/22/21 11/29/21 11/28/21 History capsule cap melatonin 3 mg 6 mg PO DAILY 03/22/21 11/29/21 11/28/21 History tablet multivitamin 1 tab PO DAILY 03/22/21 11/29/21 11/28/21 History pregabalin 300 mg 300 mg PO BID 05/10/21 11/29/21 11/28/21 History capsule cap thiamine HCl 100 mg PO DAILY 06/09/21 11/29/21 11/28/21 History (vitamin B1) 100 mg tablet rituximab 10 IV [id number] 08/11/21 11/14/21 Unknown History mg/mL concentrate,intra venous oxcarbazepine 150 450 mg PO BID 08/18/21 11/29/21 11/28/21 History mg tablet tab immune ml IV Q4W 10/11/21 11/14/21 09/27/21 History globulin,gamma(Ig G)slra 10 % intravenous solution cholecalciferol 1,250 mcg PO MO 10/16/21 11/29/21 11/28/21 History (vitamin D3) 1,250 mcg (50,000 unit) capsule chlorhexidine 15 ml PO BID 11/29/21 11/29/21 11/28/21 History gluconate 0.12 % mouthwash quetiapine 200 mg 1 tab PO BEDTIME 11/29/21 11/29/21 11/28/21 History tablet quetiapine 400 mg 1 tab PO BEDTIME 11/29/21 11/29/21 11/28/21 History tablet Physical Exam Verdana 4l Vital Signs and Narrative: Verdana 4d Verdana 4d Vital Signs: Verdana 4d Verdana 4Bd Last Vital Signs Verdana 4d Director Recreation New 4d Director Recreation New 4d Temp 99.1 F 11/29/21 14:11 Director Recreation New 4d Pulse 116 H 11/29/21 14:11 Director Recreation NewNew 4d Resp 21 H 11/29/21 14:11 BP 127/86 11/29/21 14:11 Pulse Ox 93 11/29/21 14:11 Oxygen Flow Rate 4 11/29/21 11:52 BMI result Body Mass Index 47.5 Results Labs CBC and Chem 7: 11/29/21 12:46 11/29/21 12:46 Labs: Laboratory Results - last 24 hr 11/29/21 11/29/21 11/29/21 12:46 12:46 12:46 MCV 86.7 MCH 28.6 MCHC 33.0 RDW 14.9 Plt Count 238 D MPV 10.5 Immature Gran % (Auto) 0.7 H Neut % (Auto) 80.8 H Lymph % (Auto) 9.7 L [place] % (Auto) 7.9 Eos % (Auto) 0.7 Baso % (Auto) 0.2 Lymph # (Auto) 0.5 L [place] # (Auto) 0.4 Eos # (Auto) 0.0 Baso # (Auto) 0.0 Abs Immat Gran (auto) 0.04 H Absolute Neuts (auto) 4.3 Absolute Nucleated RBC 0.000 Nucleated RBC % (auto) 0.0 D-Dimer High Sensitivty 183 VBG pH VBG pCO2 VBG pO2 VBG HCO3 VBG O2 Saturation VBG Base Excess Anion Gap 16 Estim Creat Clear Calc 99.3 Estimated GFR > 60 Random Glucose 123 H Lactic Acid Calcium 8.6 Magnesium 2.3 Ferritin 6287 H Total Bilirubin 0.4 Direct Bilirubin 0.3 AST 65 H ALT 38 H Alkaline Phosphatase 135 H D Lactate Dehydrogenase 529 H Total Creatine Kinase 87 Troponin I High Sens C-Reactive Protein 9.89 H Total Protein 7.0 Albumin 3.9 Lipase 55 Procalcitonin Beta HCG, Quant < 2 Urine Color Urine Appearance Urine pH Ur Specific [place] Urine Protein Urine Glucose (UA) Urine Ketones Urine Blood Urine Nitrite Ur Leukocyte Esterase Urine RBC Urine WBC Ur Squamous Epith Cells Urine Bacteria Urine Yeast COVID-19 (NATASHA) COVID-19 Peerz 11/29/21 11/29/21 11/29/21 12:46 12:46 12:46 MCV MCH MCHC RDW Plt Count MPV Immature Gran % (Auto) Neut % (Auto) Lymph % (Auto) [place] % (Auto) Eos % (Auto) Baso % (Auto) Lymph # (Auto) [place] # (Auto) Eos # (Auto) Baso # (Auto) Abs Immat Gran (auto) Absolute Neuts (auto) Absolute Nucleated RBC Nucleated RBC % (auto) D-Dimer High Sensitivty VBG pH VBG pCO2 VBG pO2 VBG HCO3 VBG O2 Saturation VBG Base Excess Anion Gap Estim Creat Clear Calc Estimated GFR Random Glucose Lactic Acid Calcium Magnesium Ferritin Total Bilirubin Direct Bilirubin AST ALT Alkaline Phosphatase Lactate Dehydrogenase Total Creatine Kinase Troponin I High Sens C-Reactive Protein Total Protein Albumin Lipase Procalcitonin 0.18 Beta HCG, Quant Cancelled Urine Color Urine Appearance Urine pH Ur Specific [place] Urine Protein Urine Glucose (UA) Urine Ketones Urine Blood Urine Nitrite Ur Leukocyte Esterase Urine RBC Urine WBC Ur Squamous Epith Cells Urine Bacteria Urine Yeast COVID-19 (NATASHA) Positive A COVID-19 Peerz See Note 11/29/21 11/29/21 11/29/21 12:50 13:52 13:52 MCV MCH MCHC RDW Plt Count MPV Immature Gran % (Auto) Neut % (Auto) Lymph % (Auto) [place] % (Auto) Eos % (Auto) Baso % (Auto) Lymph # (Auto) [place] # (Auto) Eos # (Auto) Baso # (Auto) Abs Immat Gran (auto) Absolute Neuts (auto) Absolute Nucleated RBC Nucleated RBC % (auto) D-Dimer High Sensitivty VBG pH 7.43 VBG pCO2 26 VBG pO2 44 VBG HCO3 18 L VBG O2 Saturation 72.0 VBG Base Excess -4.1 Anion Gap Estim Creat Clear Calc Estimated GFR Random Glucose Lactic Acid 1.0 Calcium Magnesium Ferritin Total Bilirubin Direct Bilirubin AST ALT Alkaline Phosphatase Lactate Dehydrogenase Total Creatine Kinase Troponin I High Sens 10.1 D C-Reactive Protein Total Protein Albumin Lipase Procalcitonin Beta HCG, Quant Urine Color Urine Appearance Urine pH Ur Specific [place] Urine Protein Urine Glucose (UA) Urine Ketones Urine Blood Urine Nitrite Ur Leukocyte Esterase Urine RBC Urine WBC Ur Squamous Epith Cells Urine Bacteria Urine Yeast COVID-19 (NATASHA) COVID-19 Clin Com 11/29/21 14:39 MCV MCH MCHC RDW Plt Count MPV Immature Gran % (Auto) Neut % (Auto) Lymph % (Auto) [place] % (Auto) Eos % (Auto) Baso % (Auto) Lymph # (Auto) [place] # (Auto) Eos # (Auto) Baso # (Auto) Abs Immat Gran (auto) Absolute Neuts (auto) Absolute Nucleated RBC Nucleated RBC % (auto) D-Dimer High Sensitivty VBG pH VBG pCO2 VBG pO2 VBG HCO3 VBG O2 Saturation VBG Base Excess Anion Gap Estim Creat Clear Calc Estimated GFR Random Glucose Lactic Acid Calcium Magnesium Ferritin Total Bilirubin Direct Bilirubin AST ALT Alkaline Phosphatase Lactate Dehydrogenase Total Creatine Kinase Troponin I High Sens C-Reactive Protein Total Protein Albumin Lipase Procalcitonin Beta HCG, Quant Urine Color YELLOW Urine Appearance CLOUDY Urine pH 6.5 Ur Specific [place] 1.020 Urine Protein 2+ H Urine Glucose (UA) 500 H Urine Ketones 40 Urine Blood 1+ H Urine Nitrite POS H Ur Leukocyte Esterase TRACE H Urine RBC 1-4 Urine WBC 10-14 H Ur Squamous Epith Cells 3+ Urine Bacteria 3+ Urine Yeast TRACE COVID-19 (NATASHA) COVID-19 Clin Com Imaging Radiologist's Impressions: Impressions Chest X-Ray 11/29/21 11:47 IMPRESSION: Low lung volumes and new bilateral infiltrates. Assessment and Plan (1) Pneumonia due to 2019 novel coronavirus: Status: Acute (2) Hypoxia: Status: Acute (3) UTI (urinary tract infection): Qualifiers: Hematuria presence: with hematuria Urinary tract infection type: site unspecified Qualified Code(s): N39.0 - Urinary tract infection, site not specified; R31.9 - Hematuria, unspecified Status: Acute 31 year old women admitted with covid 19 hypoxia. Acute hypoxic respiratory failure secondary to COVID-19 Treat with Decadron, albuterol updrafts as needed Supplemental oxygen ID consultation Follow inflammatory markers Diabetes mellitus Sliding scale, ADA diet Mental health Continue home medications Hypothyroidism Continue levothyroxine History of severe autoimmune polyneuropathy Hold pregabalin and rituximab DVT prophylaxis with Lovenox line attending Dr. Garcia Full code Quality Stroke Does the patient have a stroke diagnosis?: No VTE Prior VTE?: No VTE Risk Level:: Medical - moderate - high VTE Device Contraindication: Treatment Not Indicated VTE Drug Contraindication: N/A - Med Ordered
[2021-11-29 18:20] VITALS: BP 118/68; PULSE 109; RESP 18; TEMP 37.1; O2SAT 94
[2021-11-29 18:20] LABS: Glucose, Whole Blood 140 mg/dL (60-115)
[2021-11-29] MEDS: Enoxaparin Sodium 40 MG/0.4 ML SYRINGE SUBCUT (18:49)
[2021-11-29 20:33] VITALS: BP 117/73; PULSE 108; RESP 20; TEMP 37.3; O2SAT 94
[2021-11-29] MEDS: Insulin Glargine,Hum.rec.anlog 100 UNIT/ML 10 ML VIAL 14 UNIT SUBCUT (21:16)
[2021-11-29] MEDS: traZODone HCL 100 MG TABLET PO (21:17)
[2021-11-29] MEDS: Pregabalin 150 MG CAPSULE 300 MG PO (21:17)
[2021-11-29] MEDS: QUEtiapine Fumarate 400 MG TABLET PO (21:17)
[2021-11-29] MEDS: Pravastatin Sodium 20 MG TABLET PO (21:17)
[2021-11-29] MEDS: OXcarbazepine 150 MG TABLET 450 MG PO (21:18)
[2021-11-29] MEDS: Ferrous Sulfate 324 MG TABLET.DR PO (21:18)
[2021-11-29 21:32] LABS: Glucose, Whole Blood 127 mg/dL (60-115)
[2021-11-29] MEDS: QUEtiapine Fumarate 200 MG TABLET PO (21:38)
[2021-11-30] VITALS (7 sets, daily range): BP systolic 109–140; BP diastolic 66–90; PULSE 101–135; RESP 16–27; TEMP 36.9–39.9; O2SAT 92–96
[2021-11-30 06:00] LABS: MANUAL DIFF FLAG NO
[2021-11-30 06:27] LABS: Anion Gap 18 (12-20); Blood Urea Nitrogen 12 mg/dL (9-16); Calcium 8.7 mg/dL (8.4-10.2); Carbon Dioxide 21 mmol/L (22-29); Chloride 110 mmol/L (96-108); Creatinine Clr Calc Pharmacy 107.9; Estimated Glomerular Filt Rate > 60; Glucose Random 96 mg/dL (60-115); Potassium 3.5 mmol/L (3.3-5.1); Sodium 145 mmol/L (135-145)
[2021-11-30] MEDS: Levothyroxine Sodium 75 MCG TABLET PO (06:41)
[2021-11-30] MEDS: Omeprazole 20 MG CAPSULE.DR PO (06:41)
[2021-11-30 06:51] LABS: Eosinophils Percent Auto 0.7 % (0-4); Hematocrit 41.1 % (37.0-47.0); Imm Gran Abs Auto 0.03 X10*3/uL (0.00-0.03); Imm Gran Pct Auto 0.7 % (0.0-0.4); Lymphocytes Absolute Auto 0.5 X10*3/uL (1.2-4.9); Lymphocytes Percent Auto 11.7 % (20-40); Mean Corpuscular HGB Conc 31.6 g/dl (31.0-35.0); Mean Corpuscular Volume 88.6 fL (80.0-98.0); Mean Platelet Volume 10.3 fL (9.4-12.3); Monocytes Absolute Auto 0.3 X10*3/uL (0.1-1.2); Monocytes Percent Auto 5.8 % (2-11); Neutrophils Absolute Auto 3.5 x10*3/uL (2.0-8.3); Neutrophils Percent Auto 81.1 % (45-73); Platelet Count 258 X10*3/uL (160-400); Red Blood Count 4.64 X10*6/uL (4.20-5.50); Red Cell Distribution Width 14.7 % (11.0-16.0); White Blood Count 4.3 X10*3/uL (4.8-10.8)
[2021-11-30 07:19] LABS: Glucose, Whole Blood 80 mg/dL (60-115)
[2021-11-30] MEDS: 0.9 % Sodium Chloride Flush 3 ML SYRINGE IVFLUSH ×2 (07:43→17:23)
--- NOTE | 2021-11-30 07:55 | PC.NURSE ---
pt alert and oriented, skin appropriate for ethnicity, respirations even and unlabored, ls clear, sinus tach on the monitor ranges from 120-115 pt reports pain in the throat 2/10, throat slightly red pt also states she cant eat that she will vomit if she eats but not reporting nausea
--- NOTE | 2021-11-30 08:45 | MHC.CM.PN ---
CM ATTEMPTED TO CONTACT PT VIA T/C ([phone]) AT 0845 HOURS. VM LEFT REQUESTING A RETURN CALL.
[2021-11-30] MEDS: Pregabalin 150 MG CAPSULE 300 MG PO ×2 (09:22→21:56)
[2021-11-30] MEDS: Thiamine HCL 100 MG TABLET PO (09:22)
[2021-11-30] MEDS: buPROPion HCl XL 150 MG TAB.ER.24H PO (09:22)
[2021-11-30] MEDS: Multivitamin TABLET 1 TAB PO (09:22)
[2021-11-30] MEDS: OXcarbazepine 150 MG TABLET 450 MG PO ×2 (09:22→21:55)
[2021-11-30] MEDS: Melatonin 3 MG TABLET 6 MG PO ×2 (09:23→21:58)
[2021-11-30] MEDS: Ferrous Sulfate 324 MG TABLET.DR PO ×2 (09:23→21:56)
[2021-11-30] MEDS: Magnesium Oxide 400 MG TABLET PO (09:23)
--- NOTE | 2021-11-30 10:15 | P.PNIM_ITS ---
Subjective Subjective Date of Service: 11/30/21 Interval History: seen and examined this AM reports feeling the same complains of cough which is keeping her from sleeping Review of Systems negative except HPI Physical Exam Vital Signs: Vital Signs: Last Vital Signs Temp 98.8 F 11/30/21 07:51 Pulse 118 H 11/30/21 07:51 Resp 18 11/30/21 07:51 BP 109/66 11/30/21 07:51 Pulse Ox 94 11/30/21 07:51 Oxygen Flow Rate 4 11/29/21 11:52 BMI result Body Mass Index 47.5 Const: Other: General - appears anxious Cardiovascular - S1S2, tachycardic Lungs - no distress Abdomen - soft, nontender, no rebound or guarding Extremities - no edema bilaterally Neuro - awake and alert, no focal deficits Objective Data Active Medications Acetaminophen (Acetaminophen 325 Mg Tablet) 650 mg PO Q6H PRN PRN Reason: Pain, Mild (Pain Scale 1-3) Albuterol/Ipratropium (Albuterol/Iprat 2.5/0.5mg 3 Ml Ampul.Neb) 3 ml INHALE RQ4H PRN PRN Reason: Wheezing Bupropion HCl (Bupropion Hcl Xl 150 Mg Tab.Er.24h) 150 mg PO DAILY [facility] Last Admin: 11/30/21 09:22 Dose: 150 mg Documented by: VICTORINA Dexamethasone Sodium Phosphate (Dexamethasone Sod Phosphate 4 Mg/Ml Vial) 6 mg IVPUSH DAILY@1400 [facility] Stop: 12/08/21 14:01 Dextrose (Dextrose 50 % 25 Gm/50 Ml Syringe) 25 gm IVPUSH Q15M PRN; Protocol PRN Reason: per Hypoglycemia Standing Ord. Enoxaparin Sodium (Enoxaparin Sodium 40 Mg/0.4 Ml Syringe) 40 mg SUBCUT Q24H [facility] Last Admin: 11/29/21 18:49 Dose: 40 mg Documented by: EMBER Ferrous Sulfate (Ferrous Sulfate 324 Mg Tablet.) 324 mg PO BID [facility] Last Admin: 11/30/21 09:23 Dose: 324 mg Documented by: VICTORINA Glucose (Glucose Gel 15 Gm Gel..Gram.) 15 gm PO Q15M PRN; Protocol PRN Reason: per Hypoglycemia Standing Ord. Meropenem 1 gm/ Sodium (Chloride) 100 mls @ 200 mls/hr IV Q8H [facility] Last Admin: 11/30/21 07:43 Dose: 200 mls/hr Documented by: VICTORINA Insulin Glargine (Insulin Glargine,Hum.Rec.Anlog 100 Unit/Ml 10 Ml Vial) 14 unit SUBCUT BEDTIME [facility] Last Admin: 11/29/21 21:16 Dose: 14 unit Documented by: EMBER Insulin Human Lispro (Insulin Lispro 100 Unit/Ml 3 Ml Vial) 0 unit SUBCUT QIDACHS [facility]; Protocol Last Admin: 11/30/21 07:49 Dose: Not Given Documented by: VICTORINA Non-Admin Reason: poc 80 Levothyroxine Sodium (Levothyroxine Sodium 75 Mcg Tablet) 75 mcg PO DAILY@0600 [facility] Last Admin: 11/30/21 06:41 Dose: 75 mcg Documented by: CARSON Magnesium Oxide (Magnesium Oxide 400 Mg Tablet) 400 mg PO DAILY [facility] Last Admin: 11/30/21 09:23 Dose: 400 mg Documented by: VICTORINA Melatonin (Melatonin 3 Mg Tablet) 6 mg PO BEDTIME [facility] Multivitamins/Vitamin C (Multivitamin Tablet) 1 tab PO DAILY [facility] Last Admin: 11/30/21 09:22 Dose: 1 tab Documented by: VICTORINA Omeprazole (Omeprazole 20 Mg Capsule.) 20 mg PO DAILY@0630 [facility] Last Admin: 11/30/21 06:41 Dose: 20 mg Documented by: CARSON Ondansetron HCl (Ondansetron Hcl 4 Mg/2 Ml Vial) 4 mg IVPUSH Q8H PRN PRN Reason: Nausea and Vomiting Oxcarbazepine (Oxcarbazepine 150 Mg Tablet) 450 mg PO BID [facility] Last Admin: 11/30/21 09:22 Dose: 450 mg Documented by: VICTORINA Pharmacy Consult (Consult Rx Perform Med Rec) 1 each MISCELLANE ONCE PRN PRN Reason: Consult order Pravastatin Sodium (Pravastatin Sodium 20 Mg Tablet) 20 mg PO BEDTIME [facility] Last Admin: 11/29/21 21:17 Dose: 20 mg Documented by: EMBER Pregabalin (Pregabalin 150 Mg Capsule) 300 mg PO BID [facility] Last Admin: 11/30/21 09:22 Dose: 300 mg Documented by: VICTORINA Quetiapine Fumarate (Quetiapine Fumarate 200 Mg Tablet) 200 mg PO BEDTIME [facility] Last Admin: 11/29/21 21:38 Dose: 200 mg Documented by: EMBER Quetiapine Fumarate (Quetiapine Fumarate 400 Mg Tablet) 400 mg PO BEDTIME [facility] Last Admin: 11/29/21 21:17 Dose: 400 mg Documented by: EMBER Sodium Chloride (0.9 % Sodium Chloride Flush 3 Ml Syringe) 3 ml IVFLUSH QSHIFT [facility] Last Admin: 11/30/21 07:43 Dose: 3 ml Documented by: VICTORINA Thiamine HCl (Thiamine Hcl 100 Mg Tablet) 100 mg PO DAILY [facility] Last Admin: 11/30/21 09:22 Dose: 100 mg Documented by: VICTORINA Trazodone HCl (Trazodone Hcl 100 Mg Tablet) 100 mg PO BEDTIME [facility] Last Admin: 11/29/21 21:17 Dose: 100 mg Documented by: EMBER Labs CBC & Chem 7: 11/30/21 05:41 11/30/21 05:41 Labs: Laboratory Results - last 24 hr 11/29/21 11/29/21 11/29/21 12:46 12:46 12:46 MCV 86.7 MCH 28.6 MCHC 33.0 RDW 14.9 Plt Count 238 D MPV 10.5 Immature Gran % (Auto) 0.7 H Neut % (Auto) 80.8 H Lymph % (Auto) 9.7 L Bibb % (Auto) 7.9 Eos % (Auto) 0.7 Baso % (Auto) 0.2 Lymph # (Auto) 0.5 L Bibb # (Auto) 0.4 Eos # (Auto) 0.0 Baso # (Auto) 0.0 Abs Immat Gran (auto) 0.04 H Absolute Neuts (auto) 4.3 Absolute Nucleated RBC 0.000 Nucleated RBC % (auto) 0.0 D-Dimer High Sensitivty 183 VBG pH VBG pCO2 VBG pO2 VBG HCO3 VBG O2 Saturation VBG Base Excess Anion Gap 16 Estim Creat Clear Calc 99.3 Estimated GFR > 60 POC Glucose Random Glucose 123 H Lactic Acid Calcium 8.6 Magnesium 2.3 Ferritin 6287 H Total Bilirubin 0.4 Direct Bilirubin 0.3 AST 65 H ALT 38 H Alkaline Phosphatase 135 H D Lactate Dehydrogenase 529 H Total Creatine Kinase 87 Troponin I High Sens C-Reactive Protein 9.89 H Total Protein 7.0 Albumin 3.9 Lipase 55 Procalcitonin Beta HCG, Quant < 2 Urine Color Urine Appearance Urine pH Ur Specific [place] Urine Protein Urine Glucose (UA) Urine Ketones Urine Blood Urine Nitrite Ur Leukocyte Esterase Urine RBC Urine WBC Ur Squamous Epith Cells Urine Bacteria Urine Yeast COVID-19 (NATASHA) COVID-19 Clin Com 11/29/21 11/29/21 11/29/21 12:46 12:46 12:46 MCV MCH MCHC RDW Plt Count MPV Immature Gran % (Auto) Neut % (Auto) Lymph % (Auto) Bibb % (Auto) Eos % (Auto) Baso % (Auto) Lymph # (Auto) Bibb # (Auto) Eos # (Auto) Baso # (Auto) Abs Immat Gran (auto) Absolute Neuts (auto) Absolute Nucleated RBC Nucleated RBC % (auto) D-Dimer High Sensitivty VBG pH VBG pCO2 VBG pO2 VBG HCO3 VBG O2 Saturation VBG Base Excess Anion Gap Estim Creat Clear Calc Estimated GFR POC Glucose Random Glucose Lactic Acid Calcium Magnesium Ferritin Total Bilirubin Direct Bilirubin AST ALT Alkaline Phosphatase Lactate Dehydrogenase Total Creatine Kinase Troponin I High Sens C-Reactive Protein Total Protein Albumin Lipase Procalcitonin 0.18 Beta HCG, Quant Cancelled Urine Color Urine Appearance Urine pH Ur Specific [place] Urine Protein Urine Glucose (UA) Urine Ketones Urine Blood Urine Nitrite Ur Leukocyte Esterase Urine RBC Urine WBC Ur Squamous Epith Cells Urine Bacteria Urine Yeast COVID-19 (NATASHA) Positive A COVID-19 Clin Com See Note 11/29/21 11/29/21 11/29/21 12:50 13:52 13:52 MCV MCH MCHC RDW Plt Count MPV Immature Gran % (Auto) Neut % (Auto) Lymph % (Auto) Bibb % (Auto) Eos % (Auto) Baso % (Auto) Lymph # (Auto) Bibb # (Auto) Eos # (Auto) Baso # (Auto) Abs Immat Gran (auto) Absolute Neuts (auto) Absolute Nucleated RBC Nucleated RBC % (auto) D-Dimer High Sensitivty VBG pH 7.43 VBG pCO2 26 VBG pO2 44 VBG HCO3 18 L VBG O2 Saturation 72.0 VBG Base Excess -4.1 Anion Gap Estim Creat Clear Calc Estimated GFR POC Glucose Random Glucose Lactic Acid 1.0 Calcium Magnesium Ferritin Total Bilirubin Direct Bilirubin AST ALT Alkaline Phosphatase Lactate Dehydrogenase Total Creatine Kinase Troponin I High Sens 10.1 D C-Reactive Protein Total Protein Albumin Lipase Procalcitonin Beta HCG, Quant Urine Color Urine Appearance Urine pH Ur Specific [place] Urine Protein Urine Glucose (UA) Urine Ketones Urine Blood Urine Nitrite Ur Leukocyte Esterase Urine RBC Urine WBC Ur Squamous Epith Cells Urine Bacteria Urine Yeast COVID-19 (NATASHA) COVID-19 [facility] 11/29/21 11/29/21 11/29/21 14:39 18:17 21:29 MCV MCH MCHC RDW Plt Count MPV Immature Gran % (Auto) Neut % (Auto) Lymph % (Auto) Bibb % (Auto) Eos % (Auto) Baso % (Auto) Lymph # (Auto) Bibb # (Auto) Eos # (Auto) Baso # (Auto) Abs Immat Gran (auto) Absolute Neuts (auto) Absolute Nucleated RBC Nucleated RBC % (auto) D-Dimer High Sensitivty VBG pH VBG pCO2 VBG pO2 VBG HCO3 VBG O2 Saturation VBG Base Excess Anion Gap Estim Creat Clear Calc Estimated GFR POC Glucose 140 H 127 H Random Glucose Lactic Acid Calcium Magnesium Ferritin Total Bilirubin Direct Bilirubin AST ALT Alkaline Phosphatase Lactate Dehydrogenase Total Creatine Kinase Troponin I High Sens C-Reactive Protein Total Protein Albumin Lipase Procalcitonin Beta HCG, Quant Urine Color YELLOW Urine Appearance CLOUDY Urine pH 6.5 Ur Specific [place] 1.020 Urine Protein 2+ H Urine Glucose (UA) 500 H Urine Ketones 40 Urine Blood 1+ H Urine Nitrite POS H Ur Leukocyte Esterase TRACE H Urine RBC 1-4 Urine WBC 10-14 H Ur Squamous Epith Cells 3+ Urine Bacteria 3+ Urine Yeast TRACE COVID-19 (NATASHA) COVID-19 [facility] 11/30/21 11/30/21 11/30/21 05:41 05:41 07:14 MCV 88.6 MCH 28.0 MCHC 31.6 RDW 14.7 Plt Count 258 MPV 10.3 Immature Gran % (Auto) 0.7 H Neut % (Auto) 81.1 H Lymph % (Auto) 11.7 L Bib[place] % (Auto) 5.8 Eos % (Auto) 0.7 Baso % (Auto) 0.0 Lymph # (Auto) 0.5 L [place] # (Auto) 0.3 Eos # (Auto) 0.0 Baso # (Auto) 0.0 Abs Immat Gran (auto) 0.03 Absolute Neuts (auto) 3.5 Absolute Nucleated RBC 0.000 Nucleated RBC % (auto) 0.0 D-Dimer High Sensitivty VBG pH VBG pCO2 VBG pO2 VBG HCO3 VBG O2 Saturation VBG Base Excess Anion Gap 18 Estim Creat Clear Calc 107.9 Estimated GFR > 60 POC Glucose 80 Random Glucose 96 Lactic Acid Calcium 8.7 Magnesium Ferritin Total Bilirubin Direct Bilirubin AST ALT Alkaline Phosphatase Lactate Dehydrogenase Total Creatine Kinase Troponin I High Sens C-Reactive Protein Total Protein Albumin Lipase Procalcitonin Beta HCG, Quant Urine Color Urine Appearance Urine pH Ur Specific [place] Urine Protein Urine Glucose (UA) Urine Ketones Urine Blood Urine Nitrite Ur Leukocyte Esterase Urine RBC Urine WBC Ur Squamous Epith Cells Urine Bacteria Urine Yeast COVID-19 (NATASHA) COVID-19 Clin Com Assessment and Plan (1) Pneumonia due to 2019 novel coronavirus: Status: Acute Assessment and Plan: This is a 31 yo F with multiple medical problems who was tested positive for COVID on 11/23 (symptomatic 1 week before then) who is admitted for COVID pneumonia causing hypoxia. 1. Acute Resp Failure with hypoxia due to COVID pneumonia continue supplemental oxygen, wean as tolerated; currently on 2L continue Decadron Given duration of symptoms, unclear if she will benefit from remdesivir / monoclonals -- will ask for ID input trend inflammatory biomakers 2. UTI Endorses symptoms in the ED, improved today hx of ESBL continue Merram f/u cultures 3. DM basal / bolus 4. Mood continue baseilne meds 5. Hypothyroidism synthroid 6. Hx of autoimmune polyneuropathy continue pregabalin Full Code DVT pptx, Lovenox Quality Stroke Does the patient have a stroke diagnosis?: No VTE Prior VTE?: No VTE Risk Level:: Medical - moderate - high VTE Device Contraindication: Treatment Not Indicated VTE Drug Contraindication: N/A - Med Ordered
--- NOTE | 2021-11-30 11:43 | PC.NURSE ---
jason wang np inregards to the pt's heart rate climbing currently into the 130's
[2021-11-30 11:47] LABS: Glucose, Whole Blood 106 mg/dL (60-115)
[2021-11-30] MEDS: iohexoL 350 MG/ML 100 ML INFUS..BTL IV (14:08)
[2021-11-30] MEDS: dexAMETHasone sod phosphate 4 MG/ML VIAL 6 MG IVPUSH (14:36)
[2021-11-30 17:28] LABS: Glucose, Whole Blood 144 mg/dL (60-115)
[2021-11-30] MEDS: Acetaminophen 325 MG TABLET 650 MG PO ×2 (17:30→22:33)
[2021-11-30] MEDS: Enoxaparin Sodium 40 MG/0.4 ML SYRINGE SUBCUT (17:30)
--- NOTE | 2021-11-30 19:23 | PC.NURSE ---
Assumed care of pt at 1900. Pt resting in bed, in NAD, tachypneic. Intermittently removes nasal cannula and O2 sensor, redirectable but forgetful. Per day shift pt w/ minimal PO intake and little UO today. Pt unable to describe whether she is hungry or thirsty, states I don't know in response to questions. Side rails up x 2, call light at hand
[2021-11-30 21:42] LABS: Glucose, Whole Blood 145 mg/dL (60-115)
[2021-11-30] MEDS: traZODone HCL 100 MG TABLET PO (21:56)
[2021-11-30] MEDS: Pravastatin Sodium 20 MG TABLET PO (21:57)
[2021-11-30] MEDS: Insulin Glargine,Hum.rec.anlog 100 UNIT/ML 10 ML VIAL 14 UNIT SUBCUT (21:59)
[2021-11-30] MEDS: QUEtiapine Fumarate 400 MG TABLET PO (22:01)
[2021-11-30] MEDS: QUEtiapine Fumarate 200 MG TABLET PO (22:01)
[2021-12-01] VITALS (9 sets, daily range): BP systolic 104–136; BP diastolic 67–82; PULSE 121–133; RESP 18–22; TEMP 36.3–37.4; O2SAT 89–95; BMI 43.0
--- NOTE | 2021-12-01 02:22 | PC.NURSE ---
Report called to [facility] FAYE. Pt transported to floor on portable monitor, sent in stable condition w/all belongings
[2021-12-01] MEDS: Levothyroxine Sodium 75 MCG TABLET PO (06:28)
[2021-12-01] MEDS: Omeprazole 20 MG CAPSULE.DR PO (06:28)
[2021-12-01 06:32] LABS: Hematocrit 41.7 % (37.0-47.0); Hemoglobin 13.5 g/dl (12.0-16.0); Mean Corpuscular HGB Conc 32.4 g/dl (31.0-35.0); Mean Corpuscular Hemoglobin 28.4 pg (27.0-33.0); Mean Corpuscular Volume 87.6 fL (80.0-98.0); Mean Platelet Volume 10.3 fL (9.4-12.3); Platelet Count 280 X10*3/uL (160-400); Red Blood Count 4.76 X10*6/uL (4.20-5.50); Red Cell Distribution Width 14.8 % (11.0-16.0); White Blood Count 4.9 X10*3/uL (4.8-10.8)
[2021-12-01 06:51] LABS: Anion Gap 18 (12-20); Blood Urea Nitrogen 15 mg/dL (9-16); Carbon Dioxide 20 mmol/L (22-29); Chloride 113 mmol/L (96-108); Creatinine Clr Calc Pharmacy 90.4; Estimated Glomerular Filt Rate > 60; Glucose Random 104 mg/dL (60-115); Potassium 3.4 mmol/L (3.3-5.1); Sodium 148 mmol/L (135-145)
[2021-12-01 08:01] LABS: Glucose, Whole Blood 103 mg/dL (60-115)
[2021-12-01] MEDS: OXcarbazepine 150 MG TABLET 450 MG PO ×2 (08:40→22:15)
[2021-12-01] MEDS: Pregabalin 150 MG CAPSULE 300 MG PO ×2 (08:40→22:15)
[2021-12-01] MEDS: Multivitamin TABLET 1 TAB PO (08:40)
[2021-12-01] MEDS: Magnesium Oxide 400 MG TABLET PO (08:40)
[2021-12-01] MEDS: Thiamine HCL 100 MG TABLET PO (08:40)
[2021-12-01] MEDS: Ferrous Sulfate 324 MG TABLET.DR PO ×2 (08:40→22:15)
[2021-12-01] MEDS: buPROPion HCl XL 150 MG TAB.ER.24H PO (08:40)
[2021-12-01] MEDS: 0.9 % Sodium Chloride Flush 3 ML SYRINGE IVFLUSH ×3 (08:40→22:17)
[2021-12-01] MEDS: Dextrose 5 % 1,000 ML 100 ML IVCONT (08:41)
--- NOTE | 2021-12-01 09:52 | MHC.CM.PN ---
Patient is Covid (+) and unreachable by phone (neither cell @ [phone] nor room Ext. [phone]); CM spoke with Father/[employer]OSP[employer] PROJECT ENGINEER IGNACIO/Kiko @ [phone]. Patient now lives with her Parents who provide 04/06 care (Quadriplegic r/t auto immune d/o), and her 2 Sons ages 6 and 8 years of age. Home with Parents and said services is the goal for dc and CM has initiated and will follow for dc planning. PCP is Dr. Lachelle Guerra. Patient uses a w/c and walker to assist with mobility.
[2021-12-01 11:37] LABS: Glucose, Whole Blood 156 mg/dL (60-115)
[2021-12-01] MEDS: Insulin Lispro 100 UNIT/ML 3 ML VIAL SUBCUT ×3 (12:05→22:17)
[2021-12-01 12:11] LABS: D Dimer High Sensitivity < 150 NG/ML
--- NOTE | 2021-12-01 13:47 | HO.PM.IMPN ---
Subjective Subjective Date of Service: 12/01/21 Interval History: seen and examined this AM reprots feeling better no pleuritic type cp today reports unable to eat because it causes her nausea/vomiting; last BM unclear; some abdominal discomfort, but no pain Review of Systems negative except interval hx Physical Exam Vital Signs: Vital Signs: Last Vital Signs Temp 97.7 F 12/01/21 12:00 Pulse 130 H 12/01/21 12:00 Resp 22 H 12/01/21 12:00 BP 106/71 12/01/21 12:00 Pulse Ox 90 L 12/01/21 12:00 Oxygen Flow Rate 4 11/29/21 11:52 BMI result Body Mass Index 43.0 Const: Other: General - appears anxious Cardiovascular - S1S2, tachycardic Lungs - no distress Abdomen - soft, nontender, no rebound or guarding Extremities - no edema bilaterally Neuro - awake and alert, no focal deficits Objective Data Active Medications Acetaminophen (Acetaminophen 325 Mg Tablet) 650 mg PO Q6H PRN PRN Reason: Pain, Mild (Pain Scale 1-3) Last Admin: 11/30/21 22:33 Dose: 650 mg Documented by: CHASIDY Albuterol/Ipratropium (Albuterol/Iprat 2.5/0.5mg 3 Ml Ampul.Neb) 3 ml INHALE RQ4H PRN PRN Reason: Wheezing Bupropion HCl (Bupropion Hcl Xl 150 Mg Tab.Er.24h) 150 mg PO DAILY [facility] Last Admin: 12/01/21 08:40 Dose: 150 mg Documented by: JOSH Dexamethasone Sodium Phosphate (Dexamethasone Sod Phosphate 4 Mg/Ml Vial) 6 mg IVPUSH DAILY@1400 [facility] Stop: 12/08/21 14:01 Last Admin: 11/30/21 14:36 Dose: 6 mg Documented by: VICTORINA Dextrose (Dextrose 50 % 25 Gm/50 Ml Syringe) 25 gm IVPUSH Q15M PRN; Protocol PRN Reason: per Hypoglycemia Standing Ord. Enoxaparin Sodium (Enoxaparin Sodium 40 Mg/0.4 Ml Syringe) 40 mg SUBCUT Q24H [facility] Last Admin: 11/30/21 17:30 Dose: 40 mg Documented by: VICTORINA Ferrous Sulfate (Ferrous Sulfate 324 Mg Rosa.) 324 mg PO BID [facility] Last Admin: 12/01/21 08:40 Dose: 324 mg Documented by: JOSH Glucose (Glucose Gel 15 Gm Gel..Gram.) 15 gm PO Q15M PRN; Protocol PRN Reason: per Hypoglycemia Standing Ord. Dextrose (D5w) 1,000 mls @ 100 mls/hr IVCONT .Q10H [facility] Stop: 12/01/21 18:29 Last Admin: 12/01/21 08:41 Dose: 100 mls/hr Documented by: JOSH Insulin Glargine (Insulin Glargine,Hum.Rec.Anlog 100 Unit/Ml 10 Ml Vial) 14 unit SUBCUT BEDTIME [facility] Last Admin: 11/30/21 21:59 Dose: 14 unit Documented by: MARCELLA Insulin Human Lispro (Insulin Lispro 100 Unit/Ml 3 Ml Vial) 0 unit SUBCUT QIDACHS [facility]; Protocol Last Admin: 12/01/21 12:05 Dose: 2 unit Documented by: JOSH Levothyroxine Sodium (Levothyroxine Sodium 75 Mcg Tablet) 75 mcg PO DAILY@0600 [facility] Last Admin: 12/01/21 06:28 Dose: 75 mcg Documented by: CHRISTOPH Magnesium Oxide (Magnesium Oxide 400 Mg Tablet) 400 mg PO DAILY [facility] Last Admin: 12/01/21 08:40 Dose: 400 mg Documented by: JOSH Melatonin (Melatonin 3 Mg Tablet) 6 mg PO BEDTIME [facility] Last Admin: 11/30/21 21:58 Dose: 6 mg Documented by: MARCELLA Multivitamins/Vitamin C (Multivitamin Tablet) 1 tab PO DAILY [facility] Last Admin: 12/01/21 08:40 Dose: 1 tab Documented by: JOSH Omeprazole (Omeprazole 20 Mg Capsule.) 20 mg PO DAILY@0630 [facility] Last Admin: 12/01/21 06:28 Dose: 20 mg Documented by: CHRISTOPH Ondansetron HCl (Ondansetron Hcl 4 Mg/2 Ml Vial) 4 mg IVPUSH Q8H PRN PRN Reason: Nausea and Vomiting Oxcarbazepine (Oxcarbazepine 150 Mg Tablet) 450 mg PO BID [facility] Last Admin: 12/01/21 08:40 Dose: 450 mg Documented by: JOSH Pharmacy Consult (Consult Rx Perform Med Rec) 1 each MISCELLANE ONCE PRN PRN Reason: Consult order Pravastatin Sodium (Pravastatin Sodium 20 Mg Tablet) 20 mg PO BEDTIME [facility] Last Admin: 11/30/21 21:57 Dose: 20 mg Documented by: MARCELLA Pregabalin (Pregabalin 150 Mg Capsule) 300 mg PO BID [facility] Last Admin: 12/01/21 08:40 Dose: 300 mg Documented by: JOSH Quetiapine Fumarate (Quetiapine Fumarate 200 Mg Tablet) 200 mg PO BEDTIME [facility] Last Admin: 11/30/21 22:01 Dose: 200 mg Documented by: MARCELLA Quetiapine Fumarate (Quetiapine Fumarate 400 Mg Tablet) 400 mg PO BEDTIME [facility] Last Admin: 11/30/21 22:01 Dose: 400 mg Documented by: MARCELLA Sodium Chloride (0.9 % Sodium Chloride Flush 3 Ml Syringe) 3 ml IVFLUSH QSHIFT [facility] Last Admin: 12/01/21 08:40 Dose: 3 ml Documented by: JOSH Thiamine HCl (Thiamine Hcl 100 Mg Tablet) 100 mg PO DAILY [facility] Last Admin: 12/01/21 08:40 Dose: 100 mg Documented by: JOSH Trazodone HCl (Trazodone Hcl 100 Mg Tablet) 100 mg PO BEDTIME [facility] Last Admin: 11/30/21 21:56 Dose: 100 mg Documented by: MARCELLA Labs CBC & Chem 7: 12/01/21 06:00 12/01/21 06:00 Labs: Laboratory Results - last 24 hr 11/30/21 11/30/21 12/01/21 17:15 21:38 06:00 MCV 87.6 MCH 28.4 MCHC 32.4 RDW 14.8 Plt Count 280 MPV 10.3 Absolute Nucleated RBC 0.000 Nucleated RBC % (auto) 0.0 D-Dimer High Sensitivty Anion Gap Estim Creat Clear Calc Estimated GFR POC Glucose 144 H 145 H Random Glucose Calcium C-Reactive Protein 12/01/21 12/01/21 12/01/21 06:00 06:00 07:36 MCV MCH MCHC RDW Plt Count MPV Absolute Nucleated RBC Nucleated RBC % (auto) D-Dimer High Sensitivty < 150 Anion Gap 18 Estim Creat Clear Calc 90.4 Estimated GFR > 60 POC Glucose 103 Random Glucose 104 Calcium 9.0 C-Reactive Protein 11.00 H 12/01/21 11:33 MCV MCH MCHC RDW Plt Count MPV Absolute Nucleated RBC Nucleated RBC % (auto) D-Dimer High Sensitivty Anion Gap Estim Creat Clear Calc Estimated GFR POC Glucose 156 H Random Glucose Calcium C-Reactive Protein Microbiology Microbiology Results: Microbiology 11/29/21 14:01 Blood Culture - Preliminary Blood - Venous No growth after 24 hours. 11/29/21 13:51 Blood Culture - Preliminary Blood - Venous No growth after 24 hours. 11/29/21 Unknown Urine Culture - Final Urine clean catch - Urine [place] top Assessment and Plan (1) Pneumonia due to 2019 novel coronavirus: Status: Acute Assessment and Plan: This is a 31 yo F with multiple medical problems who was tested positive for COVID on 11/23 (symptomatic 1 week before then) who is admitted for COVID pneumonia causing hypoxia. 1. Acute Resp Failure with hypoxia due to COVID pneumonia saturation 90% on 1L, will continue this for today continue Decadron Given duration of symptoms, unclear if she will benefit from remdesivir / monoclonals -- will ask for ID input trend inflammatory biomakers --> CRP increasing 2. HyperNa mild, due to poor oral intake D5W x 1L; encouraged oral hydration 3. UTI, ruled out initially had symptoms and UA was suggestive for UTI, but her cultures are negative will d/c Merram and observe 4. DM basal / bolus 5. Mood continue baseilne meds 6. Hypothyroidism synthroid 7. Hx of autoimmune polyneuropathy continue pregabalin 8. Nausea/vomiting abdominal exam is benign; will start with a KUB to see if she has a stool burden oral intake encouraged Full Code DVT pptx, Lovenox Updated patients mother over the phone. Quality Stroke Does the patient have a stroke diagnosis?: No VTE Prior VTE?: No VTE Risk Level:: Medical - moderate - high VTE Device Contraindication: Treatment Not Indicated VTE Drug Contraindication: N/A - Med Ordered
[2021-12-01] MEDS: dexAMETHasone sod phosphate 4 MG/ML VIAL 6 MG IVPUSH (15:32)
[2021-12-01 17:15] LABS: Glucose, Whole Blood 153 mg/dL (60-115)
[2021-12-01] MEDS: Enoxaparin Sodium 40 MG/0.4 ML SYRINGE SUBCUT (17:35)
[2021-12-01] MEDS: Acetaminophen 325 MG TABLET 650 MG PO (17:36)
[2021-12-01 21:40] LABS: Glucose, Whole Blood 154 mg/dL (60-115)
[2021-12-01] MEDS: traZODone HCL 100 MG TABLET PO (22:15)
[2021-12-01] MEDS: Melatonin 3 MG TABLET 6 MG PO (22:16)
[2021-12-01] MEDS: Pravastatin Sodium 20 MG TABLET PO (22:16)
[2021-12-01] MEDS: QUEtiapine Fumarate 200 MG TABLET PO (22:16)
[2021-12-01] MEDS: Insulin Glargine,Hum.rec.anlog 100 UNIT/ML 10 ML VIAL 14 UNIT SUBCUT (22:16)
[2021-12-02] VITALS (7 sets, daily range): BP systolic 121–143; BP diastolic 71–97; PULSE 121–137; RESP 18–22; TEMP 36.1–37.1; O2SAT 90–95
[2021-12-02] MEDS: Omeprazole 20 MG CAPSULE.DR PO (06:25)
[2021-12-02] MEDS: Levothyroxine Sodium 75 MCG TABLET PO (06:25)
[2021-12-02 06:54] LABS: Hematocrit 43.3 % (37.0-47.0); Hemoglobin 13.7 g/dl (12.0-16.0); Mean Corpuscular HGB Conc 31.6 g/dl (31.0-35.0); Mean Corpuscular Hemoglobin 27.6 pg (27.0-33.0); Mean Corpuscular Volume 87.1 fL (80.0-98.0); Mean Platelet Volume 10.6 fL (9.4-12.3); Platelet Count 310 X10*3/uL (160-400); Red Blood Count 4.97 X10*6/uL (4.20-5.50); Red Cell Distribution Width 14.8 % (11.0-16.0)
--- NOTE | 2021-12-02 07:00 | CA_ITS ---
Transthoracic Echocardiogram Patient (Last, First, Middle): Susy Wolf, Gender: Female Date of : 1990 Age: 31 Procedure Date: 12/02/2021 Procedure Type: Transthoracic [place] [facility] [place]: 149.86 cm Weight: 96.16 kg BSA: 1.89 m2 Heart Rate: bpm BP: 122 / 84 mmHg Police Stenographer: Referring MD: Jewel Pina MD Symptoms: persistant sinus tachycardia, chest pain Study Quality: Fair ECG Rhythm: Sinus Conclusions: - Normal left ventricular size and systolic function. - In limited views RV appears mildly dilated but RV function appears preserved. Findings Procedure Information Contrast agent, definity, is being given per protocol without apparent complications. Left Ventricle Normal left ventricular size and systolic function. There is mildly increased left ventricular wall thickness. The visually estimated ejection fraction is between 60-65%. There is no evidence of regional wall motion abnormalities. Diastolic function is normal for age. Right Ventricle Mildly increased right ventricular cavity size. There is normal right ventricular systolic function. Atria The left atrium was not well visualized. The right atrium was not well visualized. Aortic Valve The aortic valve was not well visualized. There is no aortic valve stenosis. There is no aortic valve regurgitation. Mitral Valve Likely normal mitral valve structure and function. There is no mitral valve regurgitation. There is no mitral valve stenosis. Pulmonic Valve The pulmonic valve was not well visualized. Tricuspid Valve The tricuspid valve was not well visualized. Tricuspid regurgitation envelope is inadequate for calculation of right ventricular systolic pressure. Indeterminate right atrial pressure. Great Vessels The aorta was not well visualized. The pulmonary artery was not well visualized. Venous The inferior vena cava was not well visualized. Pericardium/Pleural There is no evidence of pericardial effusion. Prior Study Comparison No prior study available for comparison. Measurements 2D Linear Measurements IVSd: 1.03 0.6-0.9/0.6-1.0 cm LVIDd: 4.38 3.9-5.3/4.2-5.9 cm LVIDd Index: 2.32 2.4-3.2/2.2-3.1 cm/m2 LVIDs: 2.81 2.0-3.6 cm LVPWd: 0.97 0.7-1.1 cm LV Mass: 182.82 67-162/88-224 g LV Mass Index: 96.73 43-95/49-115 g/m2 LVOT Diam: 2.30 3.0+(-)1.3 cm Mitral Valve MV Pk E: 0.61 MV PK A: 0.95 MV Decel Time: 91.00 E/A: 0.60 E'Lateral: 12.90 E'Medial: 7.72 E/E' Med: 7.90 E/E' Lat: 4.80 PHT: 27.00 MVA PHT: 8.15 Decel [place]: 6.73 Aortic Valve AoV Pk Demetri: 1.09 AoV Mn Demetri: 0.70 AoV VTI: 0.13 AoV Pk Grad: 5.00 Aov Mn Grad: 3.00 YESSICA Cont.VTI: 3.49 LVOT LVOT Pk Demetri: 0.87 LVOT Mn Demetri: 0.55 LVOT VTI: 0.11 LVOT Pk Grad: 3.00 LVOT Mn Grad: 2.00 LVOT Diam: 2.30 LVOT Area: 4.15 Diastolic Function MV Pk E: 0.61 MV Pk A: 0.95 E/A: 0.60 E'Medial: 7.72 E/E' Med: 7.90 E' Laterial: 12.90 E/E' Lat: 4.80 Tricuspid Valve TR Pk Demetri: 1.66 TR Pk Grad: 11.00 Updated in Other Vendor System with Status of Final Mayank Meadows MD electronically signed on 12/02/2021 9:36:30 PM with status of Final
[2021-12-02 07:05] LABS: C Reactive Protein 10.86 mg/dL (< or = 0.50)
[2021-12-02 07:07] LABS: Anion Gap 15 (12-20); Blood Urea Nitrogen 15 mg/dL (9-16); Calcium 9.1 mg/dL (8.4-10.2); Carbon Dioxide 23 mmol/L (22-29); Chloride 110 mmol/L (96-108); Creatinine Clr Calc Pharmacy 99.1; Estimated Glomerular Filt Rate > 60; Glucose Random 100 mg/dL (60-115); Potassium 3.6 mmol/L (3.3-5.1); Sodium 144 mmol/L (135-145)
[2021-12-02 07:39] LABS: Glucose, Whole Blood 82 mg/dL (60-115)
[2021-12-02 09:28] LABS: Procalcitonin 0.13 ng/mL
--- NOTE | 2021-12-02 10:14 | HO.PM.IMPN ---
Subjective Subjective Date of Service: 12/02/21 Interval History: seen and examined this AM continues to improve feeling less nauseous Review of Systems negative except interval hx Physical Exam Vital Signs: Vital Signs: Last Vital Signs Temp 97.5 F 12/02/21 08:00 Pulse 125 H 12/02/21 08:00 Resp 20 12/02/21 08:00 BP 142/86 H 12/02/21 08:00 Pulse Ox 94 12/02/21 08:00 Oxygen Flow Rate 4 11/29/21 11:52 BMI result Body Mass Index 43.0 Const: Other: General - appears anxious Cardiovascular - S1S2, tachycardic Lungs - no distress Abdomen - soft, non-tender, no rebound or guarding Extremities - no edema bilaterally Neuro - awake and alert, no focal deficits Objective Data Active Medications Acetaminophen (Acetaminophen 325 Mg Tablet) 650 mg PO Q6H PRN PRN Reason: Pain, Mild (Pain Scale 1-3) Last Admin: 12/01/21 17:36 Dose: 650 mg Documented by: COTEMA Albuterol/Ipratropium (Albuterol/Iprat 2.5/0.5mg 3 Ml Ampul.Neb) 3 ml INHALE RQ4H PRN PRN Reason: Wheezing Bupropion HCl (Bupropion Hcl Xl 150 Mg Tab.Er.24h) 150 mg PO DAILY [facility] Last Admin: 12/01/21 08:40 Dose: 150 mg Documented by: FREDRICKEMA Dexamethasone Sodium Phosphate (Dexamethasone Sod Phosphate 4 Mg/Ml Vial) 6 mg IVPUSH DAILY@1400 [facility] Stop: 12/08/21 14:01 Last Admin: 12/01/21 15:32 Dose: 6 mg Documented by: FREDRICKEMA Dextrose (Dextrose 50 % 25 Gm/50 Ml Syringe) 25 gm IVPUSH Q15M PRN; Protocol PRN Reason: per Hypoglycemia Standing Ord. Enoxaparin Sodium (Enoxaparin Sodium 40 Mg/0.4 Ml Syringe) 40 mg SUBCUT Q24H [facility] Last Admin: 12/01/21 17:35 Dose: 40 mg Documented by: FREDRICKEMA Ferrous Sulfate (Ferrous Sulfate 324 Mg Tablet.Dr) 324 mg PO BID [facility] Last Admin: 12/01/21 22:15 Dose: 324 mg Documented by: DESROA Glucose (Glucose Gel 15 Gm Gel..Gram.) 15 gm PO Q15M PRN; Protocol PRN Reason: per Hypoglycemia Standing Ord. Insulin Glargine (Insulin Glargine,Hum.Rec.Anlog 100 Unit/Ml 10 Ml Vial) 14 unit SUBCUT BEDTIME [facility] Last Admin: 12/01/21 22:16 Dose: 14 unit Documented by: CHRISTOPH Insulin Human Lispro (Insulin Lispro 100 Unit/Ml 3 Ml Vial) 0 unit SUBCUT QIDACHS [facility]; Protocol Last Admin: 12/02/21 07:51 Dose: Not Given Documented by: SARAH Non-Admin Reason: No Insulin Coverage Levothyroxine Sodium (Levothyroxine Sodium 75 Mcg Tablet) 75 mcg PO DAILY@0600 [facility] Last Admin: 12/02/21 06:25 Dose: 75 mcg Documented by: CHRISTOPH Magnesium Oxide (Magnesium Oxide 400 Mg Tablet) 400 mg PO DAILY [facility] Last Admin: 12/01/21 08:40 Dose: 400 mg Documented by: FREDRICKEMA Melatonin (Melatonin 3 Mg Tablet) 6 mg PO BEDTIME [facility] Last Admin: 12/01/21 22:16 Dose: 6 mg Documented by: CHRISTOPH Multivitamins/Vitamin C (Multivitamin Tablet) 1 tab PO DAILY [facility] Last Admin: 12/01/21 08:40 Dose: 1 tab Documented by: JOSH Omeprazole (Omeprazole 20 Mg Capsule.Dr) 20 mg PO DAILY@0630 [facility] Last Admin: 12/02/21 06:25 Dose: 20 mg Documented by: CHRISTOPH Ondansetron HCl (Ondansetron Hcl 4 Mg/2 Ml Vial) 4 mg IVPUSH Q8H PRN PRN Reason: Nausea and Vomiting Oxcarbazepine (Oxcarbazepine 150 Mg Tablet) 450 mg PO BID [facility] Last Admin: 12/01/21 22:15 Dose: 450 mg Documented by: CHRISTOPH Pharmacy Consult (Consult Rx Perform Med Rec) 1 each MISCELLANE ONCE PRN PRN Reason: Consult order Pravastatin Sodium (Pravastatin Sodium 20 Mg Tablet) 20 mg PO BEDTIME [facility] Last Admin: 12/01/21 22:16 Dose: 20 mg Documented by: CHRISTOPH Pregabalin (Pregabalin 150 Mg Capsule) 300 mg PO BID [facility] Last Admin: 12/01/21 22:15 Dose: 300 mg Documented by: CHRISTOPH Quetiapine Fumarate (Quetiapine Fumarate 200 Mg Tablet) 200 mg PO BEDTIME [facility] Last Admin: 12/01/21 22:16 Dose: 200 mg Documented by: CHRISTOPH Quetiapine Fumarate (Quetiapine Fumarate 400 Mg Tablet) 400 mg PO BEDTIME [facility] Last Admin: 12/01/21 22:17 Dose: Not Given Documented by: CHRISTOPH Non-Admin Reason: Previously Administered Sodium Chloride (0.9 % Sodium Chloride Flush 3 Ml Syringe) 3 ml IVFLUSH QSHIFT [facility] Last Admin: 12/01/21 22:17 Dose: 3 ml Documented by: CHRISTOPH Thiamine HCl (Thiamine Hcl 100 Mg Tablet) 100 mg PO DAILY [facility] Last Admin: 12/01/21 08:40 Dose: 100 mg Documented by: COTEMA Trazodone HCl (Trazodone Hcl 100 Mg Tablet) 100 mg PO BEDTIME [facility] Last Admin: 12/01/21 22:15 Dose: 100 mg Documented by: CHRISTOPH Labs CBC & Chem 7: 12/02/21 05:53 12/02/21 05:53 Labs: Laboratory Results - last 24 hr 12/01/21 12/01/21 12/01/21 06:00 11:33 17:05 MCV MCH MCHC RDW Plt Count MPV Absolute Nucleated RBC Nucleated RBC % (auto) D-Dimer High Sensitivty < 150 Anion Gap Estim Creat Clear Calc Estimated GFR POC Glucose 156 H 153 H Random Glucose Calcium C-Reactive Protein Procalcitonin 12/01/21 12/02/21 12/02/21 21:37 05:53 05:53 MCV 87.1 MCH 27.6 MCHC 31.6 RDW 14.8 Plt Count 310 MPV 10.6 Absolute Nucleated RBC 0.000 Nucleated RBC % (auto) 0.0 D-Dimer High Sensitivty Anion Gap 15 Estim Creat Clear Calc 99.1 Estimated GFR > 60 POC Glucose 154 H Random Glucose 100 Calcium 9.1 C-Reactive Protein Procalcitonin 12/02/21 12/02/21 12/02/21 05:53 05:53 07:27 MCV MCH MCHC RDW Plt Count MPV Absolute Nucleated RBC Nucleated RBC % (auto) D-Dimer High Sensitivty Anion Gap Estim Creat Clear Calc Estimated GFR POC Glucose 82 Random Glucose Calcium C-Reactive Protein 10.86 H Procalcitonin 0.13 Microbiology Microbiology Results: Microbiology 11/29/21 14:01 Blood Culture - Preliminary Blood - Venous No growth after 48 hours. 11/29/21 13:51 Blood Culture - Preliminary Blood - Venous No growth after 48 hours. Assessment and Plan (1) Pneumonia due to 2019 novel coronavirus: Status: Acute Assessment and Plan: This is a 31 yo F with multiple medical problems who was tested positive for COVID on 11/23 (symptomatic 1 week before then) who is admitted for COVID pneumonia causing hypoxia. 1. Acute Resp Failure with hypoxia due to COVID pneumonia desaturated yesterday, required increase in O2 to 4L; will attempt to wean continue Decadron Given duration of symptoms, unclear if she will benefit from remdesivir / monoclonals -- ID consult pending trend inflammatory biomakers 2. HyperNa mild, due to poor oral intake, resolved 3. UTI, ruled out initially had symptoms and UA was suggestive for UTI, but her cultures are negative will d/c Merram and observe 4. DM basal / bolus 5. Mood continue baseilne meds 6. Hypothyroidism synthroid 7. Hx of autoimmune polyneuropathy continue pregabalin 8. Nausea/vomiting abdominal exam is benign, KUB neg for GI issues symptoms improving Full Code DVT pptx, Lovenox Quality Stroke Does the patient have a stroke diagnosis?: No VTE Prior VTE?: No VTE Risk Level:: Medical - moderate - high VTE Device Contraindication: Treatment Not Indicated VTE Drug Contraindication: N/A - Med Ordered
[2021-12-02] MEDS: Pregabalin 150 MG CAPSULE 300 MG PO ×2 (10:51→20:33)
[2021-12-02] MEDS: Thiamine HCL 100 MG TABLET PO (10:51)
[2021-12-02] MEDS: Multivitamin TABLET 1 TAB PO (10:51)
[2021-12-02] MEDS: OXcarbazepine 150 MG TABLET 450 MG PO ×2 (10:51→20:35)
[2021-12-02] MEDS: Magnesium Oxide 400 MG TABLET PO (10:51)
[2021-12-02] MEDS: buPROPion HCl XL 150 MG TAB.ER.24H PO (10:51)
[2021-12-02] MEDS: Ferrous Sulfate 324 MG TABLET.DR PO ×2 (10:52→20:35)
[2021-12-02] MEDS: 0.9 % Sodium Chloride Flush 3 ML SYRINGE IVFLUSH ×3 (10:52→20:40)
[2021-12-02 11:39] LABS: Glucose, Whole Blood 120 mg/dL (60-115)
--- NOTE | 2021-12-02 11:40 | MHC.CM.PN ---
Patient is not yet medically cleared for dc (4L O2, IV Decadron); home/resume / care from parents is the goal and CM will follow for possible need to adjust the dc plan.
--- NOTE | 2021-12-02 15:07 | P.CNID_ITS ---
History of Present Illness Data of Consult Service Date: 12/02/21 Requesting physician: Jewel Pina Primary Care Provider: Lachelle Guerra MD [facility] Reason for consult: shortness of breath She presents to hospital with shortness of breath and cough. 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, She received two Pfizer COVID vaccines Review of Systems Verdana 4l Review of Systems: Yes all other systems are reviewed and Verdana 4d are negative [facility] Past Medical History Medical History Acquired hypothyroidism Bipolar disorder Blurred vision, bilateral Clinical decompensation Diabetes mellitus with hyperglycemia Elevated vitamin B12 level Esophagitis with gastritis Essential hypertension Gait instability Gastric paresis Hx of Escherichia coli septicemia Hyperlipidemia Muscle weakness Obesity, morbid, BMI 40.0-49.9 Peripheral neuropathy Vitamin D deficiency Family History Family History Other Adopted Family history: reviewed and not pertinent Surgical History Surgical History Hx of section Hx of tooth extraction Social History Social History Household Members: Adopted Family Housing: Unknown / Unable to assess Alcohol intake: never Patient Tobacco Use Status: Former Tobacco user Second Hand Smoke Exposure: No service: No Current occupational status: disabled Gender identity: Female Meds Allergies Allergy/AdvReac Type Severity Reaction Status Date / Time latex Allergy Unknown rash Verified 11/14/21 00:57 metoclopramide [From AdvReac Unknown INTERACTS Verified 11/14/21 00:57 REGLAN] W/ SEROQUEL Active Medications: Current Medications Acetaminophen (Acetaminophen 325 Mg Tablet) 650 mg PO Q6H PRN PRN Reason: Pain, Mild (Pain Scale 1-3) Last Admin: 12/01/21 17:36 Dose: 650 mg Documented by: Albuterol/Ipratropium (Albuterol/Iprat 2.5/0.5mg 3 Ml Ampul.Neb) 3 ml INHALE RQ4H PRN PRN Reason: Wheezing Bupropion HCl (Bupropion Hcl Xl 150 Mg Tab.Er.24h) 150 mg PO DAILY [facility] Last Admin: 12/02/21 10:51 Dose: 150 mg Documented by: Dexamethasone Sodium Phosphate (Dexamethasone Sod Phosphate 4 Mg/Ml Vial) 6 mg IVPUSH DAILY@1400 [facility] Stop: 12/08/21 14:01 Last Admin: 12/01/21 15:32 Dose: 6 mg Documented by: Dextrose (Dextrose 50 % 25 Gm/50 Ml Syringe) 25 gm IVPUSH Q15M PRN; Protocol PRN Reason: per Hypoglycemia Standing Ord. Enoxaparin Sodium (Enoxaparin Sodium 40 Mg/0.4 Ml Syringe) 40 mg SUBCUT Q24H [facility] Last Admin: 12/01/21 17:35 Dose: 40 mg Documented by: Ferrous Sulfate (Ferrous Sulfate 324 Mg Tablet.) 324 mg PO BID [facility] Last Admin: 12/02/21 10:52 Dose: 324 mg Documented by: Glucose (Glucose Gel 15 Gm Gel..Gram.) 15 gm PO Q15M PRN; Protocol PRN Reason: per Hypoglycemia Standing Ord. Insulin Glargine (Insulin Glargine,Hum.Rec.Anlog 100 Unit/Ml 10 Ml Vial) 14 unit SUBCUT BEDTIME [facility] Last Admin: 12/01/21 22:16 Dose: 14 unit Documented by: Insulin Human Lispro (Insulin Lispro 100 Unit/Ml 3 Ml Vial) 0 unit SUBCUT QIDACHS [facility]; Protocol Last Admin: 12/02/21 11:39 Dose: Not Given Documented by: Levothyroxine Sodium (Levothyroxine Sodium 75 Mcg Tablet) 75 mcg PO DAILY@0600 [facility] Last Admin: 12/02/21 06:25 Dose: 75 mcg Documented by: Magnesium Oxide (Magnesium Oxide 400 Mg Tablet) 400 mg PO DAILY [facility] Last Admin: 12/02/21 10:51 Dose: 400 mg Documented by: Melatonin (Melatonin 3 Mg Tablet) 6 mg PO BEDTIME [facility] Last Admin: 12/01/21 22:16 Dose: 6 mg Documented by: Multivitamins/Vitamin C (Multivitamin Tablet) 1 tab PO DAILY [facility] Last Admin: 12/02/21 10:51 Dose: 1 tab Documented by: Omeprazole (Omeprazole 20 Mg Capsule.) 20 mg PO DAILY@0630 [facility] Last Admin: 12/02/21 06:25 Dose: 20 mg Documented by: Ondansetron HCl (Ondansetron Hcl 4 Mg/2 Ml Vial) 4 mg IVPUSH Q8H PRN PRN Reason: Nausea and Vomiting Oxcarbazepine (Oxcarbazepine 150 Mg Tablet) 450 mg PO BID [facility] Last Admin: 12/02/21 10:51 Dose: 450 mg Documented by: Pharmacy Consult (Consult Rx Perform Med Rec) 1 each MISCELLANE ONCE PRN PRN Reason: Consult order Pravastatin Sodium (Pravastatin Sodium 20 Mg Tablet) 20 mg PO BEDTIME [facility] Last Admin: 12/01/21 22:16 Dose: 20 mg Documented by: Pregabalin (Pregabalin 150 Mg Capsule) 300 mg PO BID [facility] Last Admin: 12/02/21 10:51 Dose: 300 mg Documented by: Quetiapine Fumarate (Quetiapine Fumarate 200 Mg Tablet) 200 mg PO BEDTIME [facility] Last Admin: 12/01/21 22:16 Dose: 200 mg Documented by: Quetiapine Fumarate (Quetiapine Fumarate 400 Mg Tablet) 400 mg PO BEDTIME [facility] Last Admin: 12/01/21 22:17 Dose: Not Given Documented by: Sodium Chloride (0.9 % Sodium Chloride Flush 3 Ml Syringe) 3 ml IVFLUSH QSHIFT [facility] Last Admin: 12/02/21 10:52 Dose: 3 ml Documented by: Thiamine HCl (Thiamine Hcl 100 Mg Tablet) 100 mg PO DAILY [facility] Last Admin: 12/02/21 10:51 Dose: 100 mg Documented by: Trazodone HCl (Trazodone Hcl 100 Mg Tablet) 100 mg PO BEDTIME [facility] Last Admin: 12/01/21 22:15 Dose: 100 mg Documented by: Home Medications Medication Instructions Recorded Confirmed Last Taken Type bupropion HCl 100 100 mg PO QA 11/30/20 11/29/21 11/28/21 History mg tablet,12 hr sustained-release trazodone 100 mg 100 mg PO 11/30/20 11/29/21 11/28/21 History tablet BEDTIME cranberry 400 mg 450 mg PO DAILY 03/22/21 11/29/21 11/28/21 History capsule cap melatonin 3 mg 6 mg PO DAILY 03/22/21 11/29/21 11/28/21 History tablet multivitamin 1 tab PO DAILY 03/22/21 11/29/21 11/28/21 History pregabalin 300 mg 300 mg PO BID 05/10/21 11/29/21 11/28/21 History capsule cap thiamine HCl 100 mg PO DAILY 06/09/21 11/29/21 11/28/21 History (vitamin B1) 100 mg tablet rituximab 10 10 mg IV 08/11/21 11/29/21 Unknown History mg/mL [id number] concentrate,intra venous oxcarbazepine 150 450 mg PO BID 08/18/21 11/29/21 11/28/21 History mg tablet tab immune 0 ml IV Q4W 10/11/21 11/29/21 09/27/21 History globulin,gamma(Ig G)slra 10 % intravenous solution cholecalciferol 1,250 mcg PO MO 10/16/21 11/29/21 11/28/21 History (vitamin D3) 1,250 mcg (50,000 unit) capsule chlorhexidine 15 ml PO BID 11/29/21 11/29/21 11/28/21 History gluconate 0.12 % mouthwash quetiapine 200 mg 1 tab PO BEDTIME 11/29/21 11/29/21 11/28/21 History tablet quetiapine 400 mg 1 tab PO BEDTIME 11/29/21 11/29/21 11/28/21 History tablet Physical Exam Verdana 4l Vital Signs: Verdana 4d Verdana 4d Vital Signs: Verdana 4d Verdana 4Bd Last Vital Signs Verdana 4d Securities Trader New 4d Securities Trader New 4d Temp 97.0 F 12/02/21 12:00 Securities Trader New 4d Pulse 135 H 12/02/21 12:00 Securities Trader New 4d Resp 22 H 12/02/21 12:00 BP 129/88 12/02/21 12:00 Pulse Ox 95 12/02/21 12:00 Oxygen Flow Rate 4 11/29/21 11:52 BMI result Body Mass Index 43.0 Const: General: cooperative HENMT: Ears: hearing grossly normal bilaterally Mouth: Normal oral and palatal mucosa present Resp: Effort & Inspection: normal respiratory effort Cardio: Rate: regular rate Rhythm: regular rhythm GI: Palpation (GI): nontender Extrem: General: Yes normal to inspection Results Labs CBC & Chem 7: 12/11/21 05:15 12/11/21 19:33 Labs: Short CBC 12/02/21 Range/Units 05:53 WBC 4.0 L (4.8-10.8) X10*3/uL Hgb 13.7 (12.0-16.0) g/dl Hct 43.3 (37.0-47.0) % Plt Count 310 (160-400) X10*3/uL BMP 12/02/21 05:53 Sodium 144 Potassium 3.6 Chloride 110 H Carbon Dioxide 23 BUN 15 Creatinine 0.83 Calcium 9.1 Microbiology Microbiology Results: Microbiology 11/29/21 14:01 Blood - Venous Blood Culture - Preliminary No growth after 48 hours. 11/29/21 13:51 Blood - Venous Blood Culture - Preliminary No growth after 48 hours. 11/29/21 Unknown Urine clean catch - Urine ohara top Urine Culture - Final Assessment and Plan (1) Pneumonia due to 2019 novel coronavirus: Status: Acute She has longer term symptoms of COVID which she started 11 days ago. She has no productive sputum or lobar pneumonia She is too far out for Remdesivir (2) Hypoxia: Status: Acute Plan Oxygen as needed Dexamethasone No antibiotics unless productive sputum or lobar infiltrate Prognosis guarded
[2021-12-02] MEDS: dexAMETHasone sod phosphate 4 MG/ML VIAL 6 MG IVPUSH (15:47)
[2021-12-02 16:14] LABS: Glucose, Whole Blood 120 mg/dL (60-115)
[2021-12-02] MEDS: Enoxaparin Sodium 40 MG/0.4 ML SYRINGE SUBCUT (18:15)
[2021-12-02 20:06] LABS: Glucose, Whole Blood 184 mg/dL (60-115)
[2021-12-02] MEDS: QUEtiapine Fumarate 400 MG TABLET PO (20:34)
[2021-12-02] MEDS: Melatonin 3 MG TABLET 6 MG PO (20:34)
[2021-12-02] MEDS: traZODone HCL 100 MG TABLET PO (20:34)
[2021-12-02] MEDS: QUEtiapine Fumarate 200 MG TABLET PO (20:34)
[2021-12-02] MEDS: Pravastatin Sodium 20 MG TABLET PO (20:35)
[2021-12-02] MEDS: Insulin Lispro 100 UNIT/ML 3 ML VIAL SUBCUT (20:35)
[2021-12-02] MEDS: Insulin Glargine,Hum.rec.anlog 100 UNIT/ML 10 ML VIAL 14 UNIT SUBCUT (20:35)
[2021-12-03 04:00] VITALS: BP 111/72; PULSE 122; RESP 18; TEMP 36.8; O2SAT 92
[2021-12-03] MEDS: Levothyroxine Sodium 75 MCG TABLET PO (05:50)
[2021-12-03] MEDS: Omeprazole 20 MG CAPSULE.DR PO (05:50)
[2021-12-03 07:32] VITALS: BP 112/81; PULSE 132; RESP 24; TEMP 36.1; O2SAT 94
[2021-12-03 08:17] LABS: Glucose, Whole Blood 96 mg/dL (60-115)
[2021-12-03] MEDS: 0.9 % Sodium Chloride Flush 3 ML SYRINGE IVFLUSH ×3 (10:00→20:49)
[2021-12-03] MEDS: buPROPion HCl XL 150 MG TAB.ER.24H PO (10:01)
[2021-12-03] MEDS: OXcarbazepine 150 MG TABLET 450 MG PO ×2 (10:01→20:43)
[2021-12-03] MEDS: Multivitamin TABLET 1 TAB PO (10:01)
[2021-12-03] MEDS: Ferrous Sulfate 324 MG TABLET.DR PO ×2 (10:01→20:43)
[2021-12-03] MEDS: Thiamine HCL 100 MG TABLET PO (10:01)
[2021-12-03] MEDS: Magnesium Oxide 400 MG TABLET PO (10:01)
[2021-12-03] MEDS: Pregabalin 150 MG CAPSULE 300 MG PO ×2 (10:01→20:43)
[2021-12-03 11:25] LABS: Glucose, Whole Blood 132 mg/dL (60-115)
--- NOTE | 2021-12-03 11:27 | P.PNIM_ITS ---
Subjective Subjective Date of Service: 12/03/21 Interval History: cc: fever interval history: feeling well, wants to go home Cardiovascular Cardiovascular: Reports no additional cardiovascular complaints Respiratory Respiratory: Reports no additional respiratory complaints Physical Exam Vital Signs: Vital Signs: Last Vital Signs Temp 97 F 12/03/21 07:32 Pulse 132 H 12/03/21 07:32 Resp 24 H 12/03/21 07:32 BP 112/81 12/03/21 07:32 Pulse Ox 94 12/03/21 07:32 Oxygen Flow Rate 4 11/29/21 11:52 BMI result Body Mass Index 43.0 Const General:?cooperative HENMO Ears:?hearing grossly normal bilaterally Mouth:?Normal oral and palatal mucosa present Resp Effort & Inspection:?normal respiratory effort Cardio Rate:?regular rate Rhythm:?regular rhythm GI Palpation (GI):?nontender Extrem General:?Yes normal to inspection Objective Data Active Medications Acetaminophen (Acetaminophen 325 Mg Tablet) 650 mg PO Q6H PRN PRN Reason: Pain, Mild (Pain Scale 1-3) Last Admin: 12/01/21 17:36 Dose: 650 mg Documented by: COTEMA Albuterol/Ipratropium (Albuterol/Iprat 2.5/0.5mg 3 Ml Ampul.Neb) 3 ml INHALE RQ4H PRN PRN Reason: Wheezing Bupropion HCl (Bupropion Hcl Xl 150 Mg Tab.Er.24h) 150 mg PO DAILY [facility] Last Admin: 12/03/21 10:01 Dose: 150 mg Documented by: SARAH Dexamethasone Sodium Phosphate (Dexamethasone Sod Phosphate 4 Mg/Ml Vial) 6 mg IVPUSH DAILY@1400 [facility] Stop: 12/08/21 14:01 Last Admin: 12/02/21 15:47 Dose: 6 mg Documented by: SARAH Dextrose (Dextrose 50 % 25 Gm/50 Ml Syringe) 25 gm IVPUSH Q15M PRN; Protocol PRN Reason: per Hypoglycemia Standing Ord. Enoxaparin Sodium (Enoxaparin Sodium 40 Mg/0.4 Ml Syringe) 40 mg SUBCUT Q24H [facility] Last Admin: 12/02/21 18:15 Dose: 40 mg Documented by: SARAH Ferrous Sulfate (Ferrous Sulfate 324 Mg Rosa.) 324 mg PO BID [facility] Last Admin: 12/03/21 10:01 Dose: 324 mg Documented by: SARAH Glucose (Glucose Gel 15 Gm Gel..Gram.) 15 gm PO Q15M PRN; Protocol PRN Reason: per Hypoglycemia Standing Ord. Insulin Glargine (Insulin Glargine,Hum.Rec.Anlog 100 Unit/Ml 10 Ml Vial) 14 unit SUBCUT BEDTIME [facility] Last Admin: 12/02/21 20:35 Dose: 14 unit Documented by: MARU Insulin Human Lispro (Insulin Lispro 100 Unit/Ml 3 Ml Vial) 0 unit SUBCUT QIDACHS [facility]; Protocol Last Admin: 12/03/21 08:29 Dose: Not Given Documented by: SARAH Non-Admin Reason: No Insulin Coverage Levothyroxine Sodium (Levothyroxine Sodium 75 Mcg Tablet) 75 mcg PO DAILY@0600 [facility] Last Admin: 12/03/21 05:50 Dose: 75 mcg Documented by: MARU Magnesium Oxide (Magnesium Oxide 400 Mg Tablet) 400 mg PO DAILY [facility] Last Admin: 12/03/21 10:01 Dose: 400 mg Documented by: SARAH Melatonin (Melatonin 3 Mg Tablet) 6 mg PO BEDTIME [facility] Last Admin: 12/02/21 20:34 Dose: 6 mg Documented by: MARU Multivitamins/Vitamin C (Multivitamin Tablet) 1 tab PO DAILY [facility] Last Admin: 12/03/21 10:01 Dose: 1 tab Documented by: SARAH Omeprazole (Omeprazole 20 Mg Capsule.Dr) 20 mg PO DAILY@0630 [facility] Last Admin: 12/03/21 05:50 Dose: 20 mg Documented by: MARU Ondansetron HCl (Ondansetron Hcl 4 Mg/2 Ml Vial) 4 mg IVPUSH Q8H PRN PRN Reason: Nausea and Vomiting Oxcarbazepine (Oxcarbazepine 150 Mg Tablet) 450 mg PO BID [facility] Last Admin: 12/03/21 10:01 Dose: 450 mg Documented by: SARAH Pharmacy Consult (Consult Rx Perform Med Rec) 1 each MISCELLANE ONCE PRN PRN Reason: Consult order Pravastatin Sodium (Pravastatin Sodium 20 Mg Tablet) 20 mg PO BEDTIME [facility] Last Admin: 12/02/21 20:35 Dose: 20 mg Documented by: MARU Pregabalin (Pregabalin 150 Mg Capsule) 300 mg PO BID [facility] Last Admin: 12/03/21 10:01 Dose: 300 mg Documented by: SARAH Quetiapine Fumarate (Quetiapine Fumarate 200 Mg Tablet) 200 mg PO BEDTIME [facility] Last Admin: 12/02/21 20:34 Dose: 200 mg Documented by: MARU Quetiapine Fumarate (Quetiapine Fumarate 400 Mg Tablet) 400 mg PO BEDTIME [facility] Last Admin: 12/02/21 20:34 Dose: 400 mg Documented by: MARU Sodium Chloride (0.9 % Sodium Chloride Flush 3 Ml Syringe) 3 ml IVFLUSH QSHIFT [facility] Last Admin: 12/03/21 10:00 Dose: 3 ml Documented by: SARAH Thiamine HCl (Thiamine Hcl 100 Mg Tablet) 100 mg PO DAILY [facility] Last Admin: 12/03/21 10:01 Dose: 100 mg Documented by: SARAH Trazodone HCl (Trazodone Hcl 100 Mg Tablet) 100 mg PO BEDTIME [facility] Last Admin: 12/02/21 20:34 Dose: 100 mg Documented by: MARU Labs CBC & Chem 7: 12/02/21 05:53 12/02/21 05:53 Labs: Laboratory Results - last 24 hr 12/02/21 12/02/21 12/02/21 11:25 15:58 20:03 POC Glucose 120 H 120 H 184 H 12/03/21 12/03/21 08:03 11:21 POC Glucose 96 132 H Assessment and Plan (1) Pneumonia due to 2019 novel coronavirus: Status: Acute Assessment and Plan: 31 yo F with multiple medical problems who was tested positive for COVID on 11/23 (symptomatic 1 week before then) who is admitted for COVID pneumonia causing hypoxia. Acute Resp Failure with hypoxia due to COVID pneumonia saturation around 89-90% on 4L continue Decadron day 4 trend inflammatory biomakers HyperNatremia mild, due to poor oral intake, resolved DM basal / bolus Mood continue trileptal, seroquel Hypothyroidism synthroid iga deficiency outpatient follow up Hx of autoimmune polyneuropathy continue pregabalin Nausea/vomiting abdominal exam is benign, KUB neg for GI issues symptoms improving Full Code DVT pptx, Lovenox Quality Stroke Does the patient have a stroke diagnosis?: No VTE Prior VTE?: No VTE Risk Level:: Medical - moderate - high VTE Device Contraindication: Treatment Not Indicated VTE Drug Contraindication: N/A - Med Ordered
[2021-12-03 11:31] VITALS: BP 120/84; PULSE 129; RESP 18; TEMP 36.6; O2SAT 92
[2021-12-03] MEDS: dexAMETHasone sod phosphate 4 MG/ML VIAL 6 MG IVPUSH (15:22)
[2021-12-03 15:43] VITALS: BP 104/78; PULSE 146; RESP 19; TEMP 38.5; O2SAT 91
[2021-12-03] MEDS: Acetaminophen 325 MG TABLET 650 MG PO (16:16)
[2021-12-03] MEDS: Enoxaparin Sodium 40 MG/0.4 ML SYRINGE SUBCUT (16:16)
[2021-12-03 16:53] LABS: Glucose, Whole Blood 168 mg/dL (60-115)
[2021-12-03] MEDS: Insulin Lispro 100 UNIT/ML 3 ML VIAL SUBCUT ×2 (17:25→20:44)
[2021-12-03 19:30] VITALS: BP 149/95; PULSE 135; RESP 18; TEMP 36.2; O2SAT 94
[2021-12-03 20:19] LABS: Glucose, Whole Blood 194 mg/dL (60-115)
[2021-12-03] MEDS: QUEtiapine Fumarate 200 MG TABLET PO (20:43)
[2021-12-03] MEDS: QUEtiapine Fumarate 400 MG TABLET PO (20:43)
[2021-12-03] MEDS: traZODone HCL 100 MG TABLET PO (20:43)
[2021-12-03] MEDS: Pravastatin Sodium 20 MG TABLET PO (20:43)
[2021-12-03] MEDS: Melatonin 3 MG TABLET 6 MG PO (20:43)
[2021-12-03] MEDS: Insulin Glargine,Hum.rec.anlog 100 UNIT/ML 10 ML VIAL 14 UNIT SUBCUT (20:44)
[2021-12-03 22:46] VITALS: BP 120/90; PULSE 118; RESP 18; TEMP 36.4; O2SAT 95
[2021-12-04] VITALS (7 sets, daily range): BP systolic 118–140; BP diastolic 61–100; PULSE 120–135; RESP 18; TEMP 36.1–37.6; O2SAT 90–92
[2021-12-04] MEDS: Omeprazole 20 MG CAPSULE.DR PO (05:34)
[2021-12-04] MEDS: Levothyroxine Sodium 75 MCG TABLET PO (05:34)
[2021-12-04 06:52] LABS: Hematocrit 43.9 % (37.0-47.0); Hemoglobin 14.3 g/dl (12.0-16.0); Mean Corpuscular HGB Conc 32.6 g/dl (31.0-35.0); Mean Corpuscular Hemoglobin 28.4 pg (27.0-33.0); Mean Corpuscular Volume 87.3 fL (80.0-98.0); Mean Platelet Volume 10.5 fL (9.4-12.3); Platelet Count 315 X10*3/uL (160-400); Red Blood Count 5.03 X10*6/uL (4.20-5.50); Red Cell Distribution Width 15.2 % (11.0-16.0); White Blood Count 4.8 X10*3/uL (4.8-10.8)
[2021-12-04 07:26] LABS: Anion Gap 20 (12-20); Blood Urea Nitrogen 24 mg/dL (9-16); C Reactive Protein 11.93 mg/dL (< or = 0.50); Calcium 9.1 mg/dL (8.4-10.2); Carbon Dioxide 20 mmol/L (22-29); Chloride 113 mmol/L (96-108); Creatinine Clr Calc Pharmacy 87.6; Estimated Glomerular Filt Rate > 60; Glucose Fasting 100 mg/dL (60-99); Potassium 3.5 mmol/L (3.3-5.1); Sodium 149 mmol/L (135-145)
[2021-12-04 07:34] LABS: Glucose, Whole Blood 96 mg/dL (60-115)
--- NOTE | 2021-12-04 10:35 | P.PNIM_ITS ---
Subjective Subjective Date of Service: 12/04/21 Interval History: cc: fever interval history: feeling well, wants to go home Cardiovascular Cardiovascular: Reports no additional cardiovascular complaints Respiratory Respiratory: Reports no additional respiratory complaints Physical Exam Vital Signs: Vital Signs: Last Vital Signs Temp 97.9 F 12/04/21 07:17 Pulse 133 H 12/04/21 07:17 Resp 18 12/04/21 07:17 BP 140/61 H 12/04/21 07:17 Pulse Ox 90 L 12/04/21 07:17 Oxygen Flow Rate 4 11/29/21 11:52 BMI result Body Mass Index 43.0 General: AO X 3, no acute distress Resp: diminished bilateral, no accessory muscles used CVS: S1,S2, rapid GI: soft, non tender, non distended Neuro: motor grossly intact, alert Psych: appropriate affect, poor insight Objective Data Active Medications Acetaminophen (Acetaminophen 325 Mg Tablet) 650 mg PO Q6H PRN PRN Reason: Pain, Mild (Pain Scale 1-3) Last Admin: 12/03/21 16:16 Dose: 650 mg Documented by: SARAH Albuterol/Ipratropium (Albuterol/Iprat 2.5/0.5mg 3 Ml Ampul.Neb) 3 ml INHALE RQ4H PRN PRN Reason: Wheezing Bupropion HCl (Bupropion Hcl Xl 150 Mg Tab.Er.24h) 150 mg PO DAILY [facility] Last Admin: 12/03/21 10:01 Dose: 150 mg Documented by: SARAH Dexamethasone Sodium Phosphate (Dexamethasone Sod Phosphate 4 Mg/Ml Vial) 6 mg IVPUSH DAILY@1400 [facility] Stop: 12/08/21 14:01 Last Admin: 12/03/21 15:22 Dose: 6 mg Documented by: SARAH Dextrose (Dextrose 50 % 25 Gm/50 Ml Syringe) 25 gm IVPUSH Q15M PRN; Protocol PRN Reason: per Hypoglycemia Standing Ord. Enoxaparin Sodium (Enoxaparin Sodium 40 Mg/0.4 Ml Syringe) 40 mg SUBCUT Q24H [facility] Last Admin: 12/03/21 16:16 Dose: 40 mg Documented by: SARAH Ferrous Sulfate (Ferrous Sulfate 324 Mg Tablet.Dr) 324 mg PO BID [facility] Last Admin: 12/03/21 20:43 Dose: 324 mg Documented by: ABDIRAHMAN Glucose (Glucose Gel 15 Gm Gel..Gram.) 15 gm PO Q15M PRN; Protocol PRN Reason: per Hypoglycemia Standing Ord. Insulin Glargine (Insulin Glargine,Hum.Rec.Anlog 100 Unit/Ml 10 Ml Vial) 14 unit SUBCUT BEDTIME [facility] Last Admin: 12/03/21 20:44 Dose: 14 unit Documented by: ABDIRAHMAN Insulin Human Lispro (Insulin Lispro 100 Unit/Ml 3 Ml Vial) 0 unit SUBCUT QIDACHS [facility]; Protocol Last Admin: 12/04/21 07:37 Dose: Not Given Documented by: SARAH Non-Admin Reason: No Insulin Coverage Levothyroxine Sodium (Levothyroxine Sodium 75 Mcg Tablet) 75 mcg PO DAILY@0600 [facility] Last Admin: 12/04/21 05:34 Dose: 75 mcg Documented by: ABDIRAHMAN Magnesium Oxide (Magnesium Oxide 400 Mg Tablet) 400 mg PO DAILY [facility] Last Admin: 12/03/21 10:01 Dose: 400 mg Documented by: SARAH Melatonin (Melatonin 3 Mg Tablet) 6 mg PO BEDTIME [facility] Last Admin: 12/03/21 20:43 Dose: 6 mg Documented by: ABDIRAHMAN Multivitamins/Vitamin C (Multivitamin Tablet) 1 tab PO DAILY [facility] Last Admin: 12/03/21 10:01 Dose: 1 tab Documented by: SARAH Omeprazole (Omeprazole 20 Mg Capsule.) 20 mg PO DAILY@0630 [facility] Last Admin: 12/04/21 05:34 Dose: 20 mg Documented by: ABDIRAHMAN Ondansetron HCl (Ondansetron Hcl 4 Mg/2 Ml Vial) 4 mg IVPUSH Q8H PRN PRN Reason: Nausea and Vomiting Oxcarbazepine (Oxcarbazepine 150 Mg Tablet) 450 mg PO BID [facility] Last Admin: 12/03/21 20:43 Dose: 450 mg Documented by: ABDIRAHMAN Pharmacy Consult (Consult Rx Perform Med Rec) 1 each MISCELLANE ONCE PRN PRN Reason: Consult order Pravastatin Sodium (Pravastatin Sodium 20 Mg Tablet) 20 mg PO BEDTIME [facility] Last Admin: 12/03/21 20:43 Dose: 20 mg Documented by: ABDIRAHMAN Pregabalin (Pregabalin 150 Mg Capsule) 300 mg PO BID [facility] Last Admin: 12/03/21 20:43 Dose: 300 mg Documented by: ABDIRAHMAN Quetiapine Fumarate (Quetiapine Fumarate 200 Mg Tablet) 200 mg PO BEDTIME [facility] Last Admin: 12/03/21 20:43 Dose: 200 mg Documented by: ABDIRAHMAN Quetiapine Fumarate (Quetiapine Fumarate 400 Mg Tablet) 400 mg PO BEDTIME [facility] Last Admin: 12/03/21 20:43 Dose: 400 mg Documented by: ABDIRAHMAN Sodium Chloride (0.9 % Sodium Chloride Flush 3 Ml Syringe) 3 ml IVFLUSH QSHIFT [facility] Last Admin: 12/03/21 20:49 Dose: 3 ml Documented by: ABDIRAHMAN Thiamine HCl (Thiamine Hcl 100 Mg Tablet) 100 mg PO DAILY [facility] Last Admin: 12/03/21 10:01 Dose: 100 mg Documented by: DOBROB Trazodone HCl (Trazodone Hcl 100 Mg Tablet) 100 mg PO BEDTIME [facility] Last Admin: 12/03/21 20:43 Dose: 100 mg Documented by: ABDIRAHMAN Labs CBC & Chem 7: 12/04/21 06:25 12/04/21 06:25 Labs: Laboratory Results - last 24 hr 12/03/21 12/03/21 12/03/21 11:21 16:38 20:01 MCV MCH MCHC RDW Plt Count MPV Absolute Nucleated RBC Nucleated RBC % (auto) Anion Gap Estim Creat Clear Calc Estimated GFR POC Glucose 132 H 168 H 194 H Fasting Glucose Calcium C-Reactive Protein 12/04/21 12/04/21 12/04/21 06:25 06:25 07:11 MCV 87.3 MCH 28.4 MCHC 32.6 RDW 15.2 Plt Count 315 MPV 10.5 Absolute Nucleated RBC 0.000 Nucleated RBC % (auto) 0.0 Anion Gap 20 Estim Creat Clear Calc 87.6 Estimated GFR > 60 POC Glucose 96 Fasting Glucose 100 H Calcium 9.1 C-Reactive Protein 11.93 H Assessment and Plan (1) Pneumonia due to 2019 novel coronavirus: Status: Acute Assessment and Plan: 31 yo F with multiple medical problems who was tested positive for COVID on 11/23 (symptomatic 1 week before then) who is admitted for COVID pneumonia causing hypoxia. viral sepsis with Acute Resp Failure with hypoxia due to COVID pneumonia saturation around 89-90% on 6L continue Decadron day 5 trend inflammatory biomakers - increasing HyperNatremia mild, due to poor oral intake, resolved DM basal / bolus Mood continue trileptal, seroquel Hypothyroidism synthroid iga deficiency outpatient follow up Hx of autoimmune polyneuropathy continue pregabalin Nausea/vomiting abdominal exam is benign, KUB neg for GI issues symptoms improving Full Code DVT pptx, Lovenox Quality Stroke Does the patient have a stroke diagnosis?: No VTE Prior VTE?: No VTE Risk Level:: Medical - moderate - high VTE Device Contraindication: Treatment Not Indicated VTE Drug Contraindication: N/A - Med Ordered
[2021-12-04] MEDS: Multivitamin TABLET 1 TAB PO (10:37)
[2021-12-04] MEDS: Thiamine HCL 100 MG TABLET PO (10:37)
[2021-12-04] MEDS: 0.9 % Sodium Chloride Flush 3 ML SYRINGE IVFLUSH (10:37)
[2021-12-04] MEDS: Magnesium Oxide 400 MG TABLET PO (10:38)
[2021-12-04] MEDS: OXcarbazepine 150 MG TABLET 450 MG PO ×2 (10:38→22:23)
[2021-12-04] MEDS: buPROPion HCl XL 150 MG TAB.ER.24H PO (10:38)
[2021-12-04] MEDS: Pregabalin 150 MG CAPSULE 300 MG PO ×2 (10:38→22:23)
[2021-12-04] MEDS: Ferrous Sulfate 324 MG TABLET.DR PO ×2 (10:38→22:24)
[2021-12-04 11:12] LABS: Glucose, Whole Blood 156 mg/dL (60-115)
[2021-12-04] MEDS: Dextrose 5 % 1,000 ML 100 ML IVCONT (12:36)
[2021-12-04] MEDS: cefTRIAXone sodium 1 GM in 0.9 % Sodium Chloride 50 ML IV (12:36)
[2021-12-04] MEDS: Insulin Lispro 100 UNIT/ML 3 ML VIAL SUBCUT ×3 (12:36→22:24)
[2021-12-04] MEDS: dexAMETHasone sod phosphate 4 MG/ML VIAL 6 MG IVPUSH (14:47)
[2021-12-04 16:55] LABS: Glucose, Whole Blood 211 mg/dL (60-115)
[2021-12-04] MEDS: Enoxaparin Sodium 40 MG/0.4 ML SYRINGE SUBCUT (17:27)
[2021-12-04 20:37] LABS: Glucose, Whole Blood 195 mg/dL (60-115)
[2021-12-04] MEDS: traZODone HCL 100 MG TABLET PO (22:23)
[2021-12-04] MEDS: Melatonin 3 MG TABLET 6 MG PO (22:23)
[2021-12-04] MEDS: QUEtiapine Fumarate 200 MG TABLET PO (22:23)
[2021-12-04] MEDS: Pravastatin Sodium 20 MG TABLET PO (22:24)
[2021-12-04] MEDS: QUEtiapine Fumarate 400 MG TABLET PO (22:24)
[2021-12-04] MEDS: Insulin Glargine,Hum.rec.anlog 100 UNIT/ML 10 ML VIAL 14 UNIT SUBCUT (22:25)
[2021-12-05 03:27] VITALS: BP 104/80; PULSE 115; RESP 18; TEMP 36.4; O2SAT 91
[2021-12-05] MEDS: Dextrose 5 % 1,000 ML 100 ML IVCONT ×3 (04:07→15:47)
[2021-12-05] MEDS: Levothyroxine Sodium 75 MCG TABLET PO (06:18)
[2021-12-05] MEDS: Omeprazole 20 MG CAPSULE.DR PO (06:18)
[2021-12-05 06:43] LABS: Hematocrit 43.2 % (37.0-47.0); Hemoglobin 13.7 g/dl (12.0-16.0); Mean Corpuscular HGB Conc 31.7 g/dl (31.0-35.0); Mean Corpuscular Hemoglobin 27.7 pg (27.0-33.0); Mean Corpuscular Volume 87.4 fL (80.0-98.0); Mean Platelet Volume 10.9 fL (9.4-12.3); Platelet Count 343 X10*3/uL (160-400); Red Blood Count 4.94 X10*6/uL (4.20-5.50); White Blood Count 4.8 X10*3/uL (4.8-10.8)
[2021-12-05 06:58] LABS: D Dimer High Sensitivity < 150 NG/ML
[2021-12-05 07:08] LABS: Anion Gap 17 (12-20); Blood Urea Nitrogen 21 mg/dL (9-16); C Reactive Protein 9.15 mg/dL (< or = 0.50); Calcium 9.1 mg/dL (8.4-10.2); Carbon Dioxide 23 mmol/L (22-29); Chloride 110 mmol/L (96-108); Creatinine Clr Calc Pharmacy 96.8; Estimated Glomerular Filt Rate > 60; Glucose Fasting 90 mg/dL (60-99); Potassium 3.3 mmol/L (3.3-5.1); Sodium 147 mmol/L (135-145)
[2021-12-05 07:28] LABS: Glucose, Whole Blood 110 mg/dL (60-115)
[2021-12-05 07:33] VITALS: BP 113/81; PULSE 111; RESP 20; TEMP 36.5; O2SAT 92
--- NOTE | 2021-12-05 10:00 | HO.PM.IMPN ---
Subjective Subjective Date of Service: 12/05/21 Interval History: cc: fever interval history: feeling well, wants to go home, pulls off o2 desats but asymptomatic Constitutional Constitutional: Reports no additional constitutional complaints Eyes Eyes: Reports no additional eye complaints Physical Exam Vital Signs: Vital Signs: Last Vital Signs Temp 97.7 F 12/05/21 07:33 Pulse 111 H 12/05/21 07:33 Resp 20 12/05/21 07:33 BP 113/81 12/05/21 07:33 Pulse Ox 92 12/05/21 07:33 Oxygen Flow Rate 4 11/29/21 11:52 BMI result Body Mass Index 43.0 General: AO X 3, no acute distress Resp:? diminished bilateral, no accessory muscles used CVS: S1,S2, rapid GI: soft, non tender, non distended Neuro:? motor grossly intact, alert Psych: appropriate affect, poor insight? Objective Data Active Medications Acetaminophen (Acetaminophen 325 Mg Tablet) 650 mg PO Q6H PRN PRN Reason: Pain, Mild (Pain Scale 1-3) Last Admin: 12/03/21 16:16 Dose: 650 mg Documented by: SARAH Albuterol/Ipratropium (Albuterol/Iprat 2.5/0.5mg 3 Ml Ampul.Neb) 3 ml INHALE RQ4H PRN PRN Reason: Wheezing Bupropion HCl (Bupropion Hcl Xl 150 Mg Tab.Er.24h) 150 mg PO DAILY [facility] Last Admin: 12/04/21 10:38 Dose: 150 mg Documented by: SARAH Dexamethasone Sodium Phosphate (Dexamethasone Sod Phosphate 4 Mg/Ml Vial) 6 mg IVPUSH DAILY@1400 [facility] Stop: 12/08/21 14:01 Last Admin: 12/04/21 14:47 Dose: 6 mg Documented by: SARAH Dextrose (Dextrose 50 % 25 Gm/50 Ml Syringe) 25 gm IVPUSH Q15M PRN; Protocol PRN Reason: per Hypoglycemia Standing Ord. Enoxaparin Sodium (Enoxaparin Sodium 40 Mg/0.4 Ml Syringe) 40 mg SUBCUT Q24H [facility] Last Admin: 12/04/21 17:27 Dose: 40 mg Documented by: SARAH Ferrous Sulfate (Ferrous Sulfate 324 Mg Rosa.) 324 mg PO BID [facility] Last Admin: 12/04/21 22:24 Dose: 324 mg Documented by: CHRISTOPH Glucose (Glucose Gel 15 Gm Gel..Gram.) 15 gm PO Q15M PRN; Protocol PRN Reason: per Hypoglycemia Standing Ord. Dextrose (D5w) 1,000 mls @ 100 mls/hr IVCONT .Q10H [facility] Last Admin: 12/05/21 04:07 Dose: 100 mls/hr Documented by: CHRISTOPH Ceftriaxone Sodium 1 gm/ (Sodium Chloride) 50 mls @ 100 mls/hr IV Q24H [facility] Last Infusion: 12/04/21 13:09 Dose: 0 mls/hr Documented by: SARAH Insulin Glargine (Insulin Glargine,Hum.Rec.Anlog 100 Unit/Ml 10 Ml Vial) 14 unit SUBCUT BEDTIME [facility] Last Admin: 12/04/21 22:25 Dose: 14 unit Documented by: CHRISTOPH Insulin Human Lispro (Insulin Lispro 100 Unit/Ml 3 Ml Vial) 0 unit SUBCUT QIDACHS [facility]; Protocol Last Admin: 12/04/21 22:24 Dose: 2 unit Documented by: CHRISTOPH Levothyroxine Sodium (Levothyroxine Sodium 75 Mcg Tablet) 75 mcg PO DAILY@0600 [facility] Last Admin: 12/05/21 06:18 Dose: 75 mcg Documented by: CHRISTOPH Magnesium Oxide (Magnesium Oxide 400 Mg Tablet) 400 mg PO DAILY [facility] Last Admin: 12/04/21 10:38 Dose: 400 mg Documented by: SARAH Melatonin (Melatonin 3 Mg Tablet) 6 mg PO BEDTIME [facility] Last Admin: 12/04/21 22:23 Dose: 6 mg Documented by: CHRISTOPH Multivitamins/Vitamin C (Multivitamin Tablet) 1 tab PO DAILY [facility] Last Admin: 12/04/21 10:37 Dose: 1 tab Documented by: SARAH Omeprazole (Omeprazole 20 Mg Capsule.) 20 mg PO DAILY@0630 [facility] Last Admin: 12/05/21 06:18 Dose: 20 mg Documented by: CHRISTOPH Ondansetron HCl (Ondansetron Hcl 4 Mg/2 Ml Vial) 4 mg IVPUSH Q8H PRN PRN Reason: Nausea and Vomiting Oxcarbazepine (Oxcarbazepine 150 Mg Tablet) 450 mg PO BID [facility] Last Admin: 12/04/21 22:23 Dose: 450 mg Documented by: CHRISTOPH Pharmacy Consult (Consult Rx Perform Med Rec) 1 each MISCELLANE ONCE PRN PRN Reason: Consult order Pravastatin Sodium (Pravastatin Sodium 20 Mg Tablet) 20 mg PO BEDTIME [facility] Last Admin: 12/04/21 22:24 Dose: 20 mg Documented by: CHRISTOPH Pregabalin (Pregabalin 150 Mg Capsule) 300 mg PO BID [facility] Last Admin: 12/04/21 22:23 Dose: 300 mg Documented by: CHRISTOPH Quetiapine Fumarate (Quetiapine Fumarate 200 Mg Tablet) 200 mg PO BEDTIME [facility] Last Admin: 12/04/21 22:23 Dose: 200 mg Documented by: CHRISTOPH Quetiapine Fumarate (Quetiapine Fumarate 400 Mg Tablet) 400 mg PO BEDTIME [facility] Last Admin: 12/04/21 22:24 Dose: 400 mg Documented by: CHRISTOPH Sodium Chloride (0.9 % Sodium Chloride Flush 3 Ml Syringe) 3 ml IVFLUSH QSHIFT [facility] Last Admin: 12/04/21 22:36 Dose: Not Given Documented by: CHRISTOPH Non-Admin Reason: IV Running Thiamine HCl (Thiamine Hcl 100 Mg Tablet) 100 mg PO DAILY [facility] Last Admin: 12/04/21 10:37 Dose: 100 mg Documented by: BRONilson Trazodone HCl (Trazodone Hcl 100 Mg Tablet) 100 mg PO BEDTIME [facility] Last Admin: 12/04/21 22:23 Dose: 100 mg Documented by: CHRISTOPH Labs CBC & Chem 7: 12/05/21 06:00 12/05/21 06:00 Labs: Laboratory Results - last 24 hr 12/04/21 12/04/21 12/04/21 11:08 16:33 20:19 MCV MCH MCHC RDW Plt Count MPV Absolute Nucleated RBC Nucleated RBC % (auto) D-Dimer High Sensitivty Anion Gap Estim Creat Clear Calc Estimated GFR POC Glucose 156 H 211 H 195 H Fasting Glucose Calcium C-Reactive Protein 12/05/21 12/05/21 12/05/21 06:00 06:00 06:00 MCV 87.4 MCH 27.7 MCHC 31.7 RDW 15.0 Plt Count 343 MPV 10.9 Absolute Nucleated RBC 0.000 Nucleated RBC % (auto) 0.0 D-Dimer High Sensitivty < 150 Anion Gap 17 Estim Creat Clear Calc 96.8 Estimated GFR > 60 POC Glucose Fasting Glucose 90 Calcium 9.1 C-Reactive Protein 9.15 H 12/05/21 07:14 MCV MCH MCHC RDW Plt Count MPV Absolute Nucleated RBC Nucleated RBC % (auto) D-Dimer High Sensitivty Anion Gap Estim Creat Clear Calc Estimated GFR POC Glucose 110 Fasting Glucose Calcium C-Reactive Protein Microbiology Microbiology Results: Microbiology 11/29/21 14:01 Blood Culture - Final Blood - Venous No growth after 5 days. 11/29/21 13:51 Blood Culture - Final Blood - Venous No growth after 5 days. Assessment and Plan (1) Pneumonia due to 2019 novel coronavirus: Status: Acute Assessment and Plan: 31 yo F with multiple medical problems who was tested positive for COVID on 11/23 (symptomatic 1 week before then) who is admitted for COVID pneumonia causing hypoxia. viral sepsis with Acute Resp Failure with hypoxia due to COVID pneumonia saturation around 89-90% on 6L continue Decadron day 6 desats to 85% on room air trend inflammatory biomakers - increasing due to continuing fevers concern for superimposed bacterial infection, continue rocephin, follow up cultures HyperNatremia mild, due to poor oral intake, resolved DM basal / bolus Mood continue trileptal, seroquel Hypothyroidism synthroid iga deficiency outpatient follow up Hx of autoimmune polyneuropathy continue pregabalin Nausea/vomiting abdominal exam is benign, KUB neg for GI issues symptoms improving Full Code DVT pptx, Lovenox Quality Stroke Does the patient have a stroke diagnosis?: No VTE Prior VTE?: No VTE Risk Level:: Medical - moderate - high VTE Device Contraindication: Treatment Not Indicated VTE Drug Contraindication: N/A - Med Ordered
[2021-12-05] MEDS: Pregabalin 150 MG CAPSULE 300 MG PO ×2 (10:11→23:15)
[2021-12-05] MEDS: Thiamine HCL 100 MG TABLET PO (10:12)
[2021-12-05] MEDS: Ferrous Sulfate 324 MG TABLET.DR PO ×2 (10:12→23:15)
[2021-12-05] MEDS: OXcarbazepine 150 MG TABLET 450 MG PO ×2 (10:12→23:15)
[2021-12-05] MEDS: Multivitamin TABLET 1 TAB PO (10:12)
[2021-12-05] MEDS: Magnesium Oxide 400 MG TABLET PO (10:13)
[2021-12-05] MEDS: buPROPion HCl XL 150 MG TAB.ER.24H PO (10:13)
[2021-12-05 11:10] LABS: Glucose, Whole Blood 125 mg/dL (60-115)
[2021-12-05 11:47] VITALS: BP 105/69; PULSE 128; RESP 20; TEMP 36.5; O2SAT 93
[2021-12-05] MEDS: cefTRIAXone sodium 1 GM in 0.9 % Sodium Chloride 50 ML IV (11:47)
--- NOTE | 2021-12-05 15:22 | P.PNID_ITS ---
Subjective Subjective Date of Service: 12/05/21 Critical Care Time (minutes): 15 Comment: she has no complaints,isolated temperature yesterday to 101.3,no others Objective Data Labs CBC & Chem 7: 12/11/21 05:15 12/11/21 19:33 Labs: Laboratory Results - last 24 hr 12/04/21 12/04/21 12/05/21 16:33 20:19 06:00 WBC 4.8 RBC 4.94 Hgb 13.7 Hct 43.2 MCV 87.4 MCH 27.7 MCHC 31.7 RDW 15.0 Plt Count 343 MPV 10.9 Absolute Nucleated RBC 0.000 Nucleated RBC % (auto) 0.0 D-Dimer High Sensitivty Sodium Potassium Chloride Carbon Dioxide Anion Gap BUN Creatinine Estim Creat Clear Calc Estimated GFR POC Glucose 211 H 195 H Fasting Glucose Calcium C-Reactive Protein 12/05/21 12/05/21 12/05/21 06:00 06:00 07:14 WBC RBC Hgb Hct MCV MCH MCHC RDW Plt Count MPV Absolute Nucleated RBC Nucleated RBC % (auto) D-Dimer High Sensitivty < 150 Sodium 147 H Potassium 3.3 Chloride 110 H Carbon Dioxide 23 Anion Gap 17 BUN 21 H Creatinine 0.85 Estim Creat Clear Calc 96.8 Estimated GFR > 60 POC Glucose 110 Fasting Glucose 90 Calcium 9.1 C-Reactive Protein 9.15 H 12/05/21 10:52 WBC RBC Hgb Hct MCV MCH MCHC RDW Plt Count MPV Absolute Nucleated RBC Nucleated RBC % (auto) D-Dimer High Sensitivty Sodium Potassium Chloride Carbon Dioxide Anion Gap BUN Creatinine Estim Creat Clear Calc Estimated GFR POC Glucose 125 H Fasting Glucose Calcium C-Reactive Protein Microbiology Microbiology Results: Microbiology 12/04/21 11:43 Blood - Venous Blood Culture - Preliminary No growth after 24 hours. 12/04/21 11:43 Blood - Venous Blood Culture - Preliminary No growth after 24 hours. 11/29/21 14:01 Blood - Venous Blood Culture - Final No growth after 5 days. 11/29/21 13:51 Blood - Venous Blood Culture - Final No growth after 5 days. 11/29/21 Unknown Urine clean catch - Urine [place] top Urine Culture - Final Physical Exam Verdana 4l Vital Signs: Verdana 4d Verdana 4d Vital Signs: Verdana 4d Verdana 4Bd Last Vital Signs Verdana 4d C D Stripper New 4d C D Stripper New 4d Temp 97.7 F 12/05/21 11:47 C D Stripper New 4d Pulse 128 H 12/05/21 11:47 C D Stripper New 4d Resp 20 12/05/21 11:47 BP 105/69 12/05/21 11:47 Pulse Ox 93 12/05/21 11:47 Oxygen Flow Rate 4 11/29/21 11:52 BMI result Body Mass Index 43.0 HENMT: Head: Yes normal to inspection Resp: Effort & Inspection: normal respiratory effort Cardio: Rate: regular rate Rhythm: regular rhythm GI: Palpation (GI): nontender Assessment and Plan Assessment and plan (1) Fever: Status: Acute Assessment and Plan: Possibly due to mucus plugging or continued lung damage from COVID Plan Can stop Ceftriaxone at this time Await final blood cultures Time Spent With Patient Time: Total time spent is greater than 50% in coordination of care (as documented) at patient's floor/unit and/or counseling patient: Time with patient: 15 - 24 minutes
[2021-12-05 15:45] VITALS: BP 122/80; PULSE 130; RESP 15; TEMP 37.7; O2SAT 93
[2021-12-05] MEDS: dexAMETHasone sod phosphate 4 MG/ML VIAL 6 MG IVPUSH (15:45)
[2021-12-05] MEDS: 0.9 % Sodium Chloride Flush 3 ML SYRINGE IVFLUSH ×2 (15:45→23:16)
[2021-12-05 16:49] LABS: Glucose, Whole Blood 187 mg/dL (60-115)
[2021-12-05] MEDS: Enoxaparin Sodium 40 MG/0.4 ML SYRINGE SUBCUT (17:55)
[2021-12-05] MEDS: Insulin Lispro 100 UNIT/ML 3 ML VIAL SUBCUT ×2 (17:55→23:14)
--- NOTE | 2021-12-05 18:45 | PC.NURSE ---
Pt Vitals WNL, AxO but vague. Pt ate bare minimum; was encouraged to eat, however states shesnot hungry
[2021-12-05 19:42] VITALS: BP 124/86; PULSE 130; RESP 18; TEMP 36.3; O2SAT 96
[2021-12-05 20:09] LABS: Glucose, Whole Blood 210 mg/dL (60-115)
[2021-12-05] MEDS: Insulin Glargine,Hum.rec.anlog 100 UNIT/ML 10 ML VIAL 14 UNIT SUBCUT (23:14)
[2021-12-05] MEDS: QUEtiapine Fumarate 400 MG TABLET PO (23:15)
[2021-12-05] MEDS: QUEtiapine Fumarate 200 MG TABLET PO (23:15)
[2021-12-05] MEDS: Pravastatin Sodium 20 MG TABLET PO (23:15)
[2021-12-05] MEDS: Melatonin 3 MG TABLET 6 MG PO (23:15)
[2021-12-05] MEDS: traZODone HCL 100 MG TABLET PO (23:15)
[2021-12-05 23:40] VITALS: BP 138/93; PULSE 121; RESP 18; TEMP 37.7; O2SAT 95
[2021-12-06 04:00] VITALS: BP 117/84; PULSE 119; RESP 18; TEMP 36.7; O2SAT 94
[2021-12-06] MEDS: Dextrose 5 % 1,000 ML 100 ML IVCONT (04:44)
[2021-12-06] MEDS: Omeprazole 20 MG CAPSULE.DR PO (05:38)
[2021-12-06] MEDS: Levothyroxine Sodium 75 MCG TABLET PO (05:38)
[2021-12-06 06:43] LABS: Hematocrit 40.2 % (37.0-47.0); Hemoglobin 13.2 g/dl (12.0-16.0); Mean Corpuscular HGB Conc 32.8 g/dl (31.0-35.0); Mean Corpuscular Hemoglobin 28.4 pg (27.0-33.0); Mean Corpuscular Volume 86.5 fL (80.0-98.0); Platelet Count 326 X10*3/uL (160-400); Red Blood Count 4.65 X10*6/uL (4.20-5.50); Red Cell Distribution Width 14.7 % (11.0-16.0); White Blood Count 4.1 X10*3/uL (4.8-10.8)
[2021-12-06 07:33] LABS: Glucose, Whole Blood 110 mg/dL (60-115)
[2021-12-06 07:43] LABS: Anion Gap 16 (12-20); Blood Urea Nitrogen 17 mg/dL (9-16); Calcium 8.8 mg/dL (8.4-10.2); Carbon Dioxide 22 mmol/L (22-29); Chloride 111 mmol/L (96-108); Creatinine Clr Calc Pharmacy 105.5; Estimated Glomerular Filt Rate > 60; Glucose Fasting 115 mg/dL (60-99); Potassium 3.2 mmol/L (3.3-5.1); Sodium 146 mmol/L (135-145)
[2021-12-06 08:00] VITALS: BP 121/80; PULSE 120; RESP 20; TEMP 36.6; O2SAT 92
[2021-12-06] MEDS: Magnesium Oxide 400 MG TABLET PO (10:24)
[2021-12-06] MEDS: Pregabalin 150 MG CAPSULE 300 MG PO ×2 (10:24→22:29)
[2021-12-06] MEDS: OXcarbazepine 150 MG TABLET 450 MG PO ×2 (10:24→22:28)
[2021-12-06] MEDS: Potassium Chloride ER 20 MEQ TAB.ER.PRT 40 MEQ PO (10:24)
[2021-12-06] MEDS: Thiamine HCL 100 MG TABLET PO (10:25)
[2021-12-06] MEDS: Ferrous Sulfate 324 MG TABLET.DR PO ×2 (10:25→22:28)
[2021-12-06] MEDS: Multivitamin TABLET 1 TAB PO (10:25)
[2021-12-06] MEDS: buPROPion HCl XL 150 MG TAB.ER.24H PO (10:25)
[2021-12-06 11:15] LABS: Glucose, Whole Blood 129 mg/dL (60-115)
[2021-12-06 11:20] VITALS: BP 112/65; PULSE 129; RESP 20; TEMP 36.6; O2SAT 96
--- NOTE | 2021-12-06 12:12 | HO.PM.IMPN ---
Subjective Subjective Date of Service: 12/06/21 Interval History: the patient was seen and evaluated this morning Laying in bed, feels mild improvement but still on 5-6 L of oxygen Denies any fever, chills or chest pain No reported other overnight events. Systemic review: No fever, chills or weakness No chest pain, palpitation Still having dyspnea on exertion and mild coughing No abdominal pain, nausea or vomiting No urinary symptoms No any rash or wounds Physical Exam Vital Signs: Vital Signs: Last Vital Signs Temp 97.8 F 12/06/21 11:20 Pulse 129 H 12/06/21 11:20 Resp 20 12/06/21 11:20 BP 112/65 12/06/21 11:20 Pulse Ox 96 12/06/21 11:20 Oxygen Flow Rate 4 11/29/21 11:52 BMI result Body Mass Index 43.0 Const: Other: General - appears anxious Cardiovascular - S1S2, tachycardic Lungs - no distress, chest wall moving Abdomen - soft, non-tender, no rebound or guarding Extremities - no edema bilaterally Neuro - awake and alert, no focal deficits Objective Data Active Medications Acetaminophen (Acetaminophen 325 Mg Tablet) 650 mg PO Q6H PRN PRN Reason: Pain, Mild (Pain Scale 1-3) Last Admin: 12/03/21 16:16 Dose: 650 mg Documented by: SARAH Albuterol/Ipratropium (Albuterol/Iprat 2.5/0.5mg 3 Ml Ampul.Neb) 3 ml INHALE RQ4H PRN PRN Reason: Wheezing Bupropion HCl (Bupropion Hcl Xl 150 Mg Tab.Er.24h) 150 mg PO DAILY [facility] Last Admin: 12/06/21 10:25 Dose: 150 mg Documented by: SARAH Dexamethasone Sodium Phosphate (Dexamethasone Sod Phosphate 4 Mg/Ml Vial) 6 mg IVPUSH DAILY@1400 [facility] Stop: 12/08/21 14:01 Last Admin: 12/05/21 15:45 Dose: 6 mg Documented by: WENDY Dextrose (Dextrose 50 % 25 Gm/50 Ml Syringe) 25 gm IVPUSH Q15M PRN; Protocol PRN Reason: per Hypoglycemia Standing Ord. Enoxaparin Sodium (Enoxaparin Sodium 40 Mg/0.4 Ml Syringe) 40 mg SUBCUT Q24H [facility] Last Admin: 12/05/21 17:55 Dose: 40 mg Documented by: WENDY Ferrous Sulfate (Ferrous Sulfate 324 Mg Tablet.) 324 mg PO BID [facility] Last Admin: 12/06/21 10:25 Dose: 324 mg Documented by: SARAH Glucose (Glucose Gel 15 Gm Gel..Gram.) 15 gm PO Q15M PRN; Protocol PRN Reason: per Hypoglycemia Standing Ord. Dextrose (D5w) 1,000 mls @ 100 mls/hr IVCONT .Q10H [facility] Last Admin: 12/06/21 04:44 Dose: 100 mls/hr Documented by: CHRISTOPH Insulin Glargine (Insulin Glargine,Hum.Rec.Anlog 100 Unit/Ml 10 Ml Vial) 14 unit SUBCUT BEDTIME [facility] Last Admin: 12/05/21 23:14 Dose: 14 unit Documented by: CHRISTOPH Insulin Human Lispro (Insulin Lispro 100 Unit/Ml 3 Ml Vial) 0 unit SUBCUT QIDACHS [facility]; Protocol Last Admin: 12/06/21 11:20 Dose: Not Given Documented by: SARAH Non-Admin Reason: No Insulin Coverage Levothyroxine Sodium (Levothyroxine Sodium 75 Mcg Tablet) 75 mcg PO DAILY@0600 [facility] Last Admin: 12/06/21 05:38 Dose: 75 mcg Documented by: CHRISTOPH Magnesium Oxide (Magnesium Oxide 400 Mg Tablet) 400 mg PO DAILY [facility] Last Admin: 12/06/21 10:24 Dose: 400 mg Documented by: SARAH Melatonin (Melatonin 3 Mg Tablet) 6 mg PO BEDTIME [facility] Last Admin: 12/05/21 23:15 Dose: 6 mg Documented by: CHRISTOPH Multivitamins/Vitamin C (Multivitamin Tablet) 1 tab PO DAILY [facility] Last Admin: 12/06/21 10:25 Dose: 1 tab Documented by: SARAH Omeprazole (Omeprazole 20 Mg Capsule.) 20 mg PO DAILY@0630 [facility] Last Admin: 12/06/21 05:38 Dose: 20 mg Documented by: CHRISTOPH Ondansetron HCl (Ondansetron Hcl 4 Mg/2 Ml Vial) 4 mg IVPUSH Q8H PRN PRN Reason: Nausea and Vomiting Oxcarbazepine (Oxcarbazepine 150 Mg Tablet) 450 mg PO BID [facility] Last Admin: 12/06/21 10:24 Dose: 450 mg Documented by: SARAH Pharmacy Consult (Consult Rx Perform Med Rec) 1 each MISCELLANE ONCE PRN PRN Reason: Consult order Pravastatin Sodium (Pravastatin Sodium 20 Mg Tablet) 20 mg PO BEDTIME [facility] Last Admin: 12/05/21 23:15 Dose: 20 mg Documented by: CHRISTOPH Pregabalin (Pregabalin 150 Mg Capsule) 300 mg PO BID [facility] Last Admin: 12/06/21 10:24 Dose: 300 mg Documented by: SARAH Quetiapine Fumarate (Quetiapine Fumarate 200 Mg Tablet) 200 mg PO BEDTIME [facility] Last Admin: 12/05/21 23:15 Dose: 200 mg Documented by: CHRISTOPH Quetiapine Fumarate (Quetiapine Fumarate 400 Mg Tablet) 400 mg PO BEDTIME [facility] Last Admin: 12/05/21 23:15 Dose: 400 mg Documented by: CHRISTOPH Sodium Chloride (0.9 % Sodium Chloride Flush 3 Ml Syringe) 3 ml IVFLUSH QSHIFT [facility] Last Admin: 12/06/21 10:24 Dose: Not Given Documented by: SARAH Non-Admin Reason: IV Running Thiamine HCl (Thiamine Hcl 100 Mg Tablet) 100 mg PO DAILY [facility] Last Admin: 12/06/21 10:25 Dose: 100 mg Documented by: SARAH Trazodone HCl (Trazodone Hcl 100 Mg Tablet) 100 mg PO BEDTIME [facility] Last Admin: 12/05/21 23:15 Dose: 100 mg Documented by: CHRISTOPH Labs CBC & Chem 7: 12/06/21 06:16 12/06/21 06:16 Labs: Laboratory Results - last 24 hr 12/05/21 12/05/21 12/06/21 16:38 19:46 06:16 MCV 86.5 MCH 28.4 MCHC 32.8 RDW 14.7 Plt Count 326 MPV 11.0 Absolute Nucleated RBC 0.000 Nucleated RBC % (auto) 0.0 Anion Gap Estim Creat Clear Calc Estimated GFR POC Glucose 187 H 210 H Fasting Glucose Calcium 12/06/21 12/06/21 12/06/21 06:16 07:16 10:53 MCV MCH MCHC RDW Plt Count MPV Absolute Nucleated RBC Nucleated RBC % (auto) Anion Gap 16 Estim Creat Clear Calc 105.5 Estimated GFR > 60 POC Glucose 110 129 H Fasting Glucose 115 H Calcium 8.8 Microbiology Microbiology Results: Microbiology 12/04/21 11:43 Blood Culture - Preliminary Blood - Venous No growth after 24 hours. 12/04/21 11:43 Blood Culture - Preliminary Blood - Venous No growth after 24 hours. Assessment and Plan (1) Pneumonia due to 2019 novel coronavirus: Status: Acute (2) Hypoxia: Status: Acute (3) UTI (urinary tract infection): Status: Acute Assessment and Plan: 31 yo F with multiple medical problems who was tested positive for COVID on 11/23 (symptomatic 1 week before then) who is admitted for COVID pneumonia causing hypoxia. viral sepsis with Acute Resp Failure with hypoxia due to COVID pneumonia saturation around 89-90% on 6L continue Decadron day 7 desats to 85% on room air trend inflammatory biomakers Id input appreciated, DC ceftriaxone HyperNatremia mild, due to poor oral intake On D5W, monitor Hypokalemia K 3.2, replacement given DM basal / bolus Mood continue trileptal, seroquel Hypothyroidism synthroid iga deficiency outpatient follow up Hx of autoimmune polyneuropathy continue pregabalin Nausea/vomiting abdominal exam is benign, KUB neg for GI issues symptoms improving Full Code DVT pptx, Lovenox Quality Stroke Does the patient have a stroke diagnosis?: No VTE Prior VTE?: No VTE Risk Level:: Medical - moderate - high VTE Device Contraindication: Treatment Not Indicated VTE Drug Contraindication: N/A - Med Ordered
[2021-12-06] MEDS: dexAMETHasone sod phosphate 4 MG/ML VIAL 6 MG IVPUSH (13:40)
[2021-12-06] MEDS: guaiFENesin LA 600 MG TAB.ER.12H PO ×2 (13:41→22:28)
[2021-12-06 15:29] VITALS: BP 120/78; PULSE 128; RESP 18; TEMP 36.6; O2SAT 97
[2021-12-06 16:05] LABS: Glucose, Whole Blood 207 mg/dL (60-115)
[2021-12-06] MEDS: Insulin Lispro 100 UNIT/ML 3 ML VIAL SUBCUT ×2 (16:16→22:29)
[2021-12-06] MEDS: Enoxaparin Sodium 40 MG/0.4 ML SYRINGE SUBCUT (16:16)
[2021-12-06] MEDS: 0.9 % Sodium Chloride Flush 3 ML SYRINGE IVFLUSH (16:16)
[2021-12-06 19:18] VITALS: BP 122/74; PULSE 120; RESP 18; TEMP 36.6; O2SAT 96
[2021-12-06 19:54] LABS: Glucose, Whole Blood 188 mg/dL (60-115)
--- NOTE | 2021-12-06 21:54 | PM.EVENT ---
Event Note Date of Service: 12/06/21 Event Note: pt retaining>700 cc of urine. unable to urinate. emmanuel cath places
[2021-12-06] MEDS: Melatonin 3 MG TABLET 6 MG PO (22:28)
[2021-12-06] MEDS: QUEtiapine Fumarate 200 MG TABLET PO (22:28)
[2021-12-06] MEDS: QUEtiapine Fumarate 400 MG TABLET PO (22:28)
[2021-12-06] MEDS: Pravastatin Sodium 20 MG TABLET PO (22:28)
[2021-12-06] MEDS: traZODone HCL 100 MG TABLET PO (22:29)
[2021-12-06] MEDS: Insulin Glargine,Hum.rec.anlog 100 UNIT/ML 10 ML VIAL 14 UNIT SUBCUT (22:29)
[2021-12-06 23:34] VITALS: BP 113/86; PULSE 116; RESP 18; TEMP 35.8; O2SAT 99
[2021-12-07] VITALS (7 sets, daily range): BP systolic 132–156; BP diastolic 70–94; PULSE 73–112; RESP 16–20; TEMP 35.7–37.3; O2SAT 9–99
--- NOTE | 2021-12-07 00:23 | PC.NURSE ---
Unable to urinate, bladder scanned for 750 ml, emmanuel placed as per Dr Dickens order
[2021-12-07] MEDS: 0.9 % Sodium Chloride Flush 3 ML SYRINGE IVFLUSH ×4 (00:25→21:43)
[2021-12-07] MEDS: Dextrose 5 % 1,000 ML 100 ML IVCONT ×2 (00:56→10:50)
[2021-12-07 07:31] LABS: Glucose, Whole Blood 132 mg/dL (60-115)
[2021-12-07 07:53] LABS: Hematocrit 41.6 % (37.0-47.0); Hemoglobin 13.5 g/dl (12.0-16.0); Mean Corpuscular HGB Conc 32.5 g/dl (31.0-35.0); Mean Corpuscular Volume 86.3 fL (80.0-98.0); Mean Platelet Volume 10.7 fL (9.4-12.3); Platelet Count 372 X10*3/uL (160-400); Red Blood Count 4.82 X10*6/uL (4.20-5.50); Red Cell Distribution Width 14.4 % (11.0-16.0)
[2021-12-07 08:15] LABS: Anion Gap 15 (12-20); Blood Urea Nitrogen 16 mg/dL (9-16); C Reactive Protein 6.78 mg/dL (< or = 0.50); Calcium 9.2 mg/dL (8.4-10.2); Carbon Dioxide 22 mmol/L (22-29); Chloride 109 mmol/L (96-108); Creatinine Clr Calc Pharmacy 104.1; Estimated Glomerular Filt Rate > 60; Glucose Random 155 mg/dL (60-115); Lactate Dehydrogenase 674 U/L (122-220); Potassium 3.3 mmol/L (3.3-5.1); Sodium 143 mmol/L (135-145)
--- NOTE | 2021-12-07 10:06 | P.PNIM_ITS ---
Subjective Subjective Date of Service: 12/07/21 Interval History: the patient was seen and evaluated this morning Laying in bed, feels mild improvement but still on 5 L of oxygen Complaining of cough No reported other overnight events. Systemic review: No fever, chills or weakness No chest pain, palpitation Still having dyspnea on exertion and reporting coughing No abdominal pain, nausea or vomiting No urinary symptoms No any rash or wounds Physical Exam Verdana 4l Vital Signs: Verdana 4d Verdana 4d Vital Signs: Verdana 4d Verdana 4Bd Last Vital Signs Verdana 4d Unemployment Examiner New 4d Unemployment Examiner New 4d Temp 98.6 F 12/07/21 07:41 Unemployment Examiner New 4d Pulse 110 H 12/07/21 07:41 Unemployment Examiner New 4d Resp 20 12/07/21 07:41 BP 133/87 12/07/21 07:41 Pulse Ox 95 12/07/21 07:41 Oxygen Flow Rate 4 11/29/21 11:52 BMI result Body Mass Index 43.0 Const: Other: General - appears anxious, not in distress Cardiovascular - S1S2, tachycardic Lungs - no distress, chest wall moving common oxygen supplement Abdomen - soft, non-tender, no rebound or guarding Extremities - no edema bilaterally Neuro - awake and alert, no focal deficits Objective Data Active Medications Acetaminophen (Acetaminophen 325 Mg Tablet) 650 mg PO Q6H PRN PRN Reason: Pain, Mild (Pain Scale 1-3) Last Admin: 12/03/21 16:16 Dose: 650 mg Documented by: SARAH Benzonatate (Benzonatate 100 Mg Capsule) 100 mg PO TID [facility] Bupropion HCl (Bupropion Hcl Xl 150 Mg Tab.Er.24h) 150 mg PO DAILY [facility] Last Admin: 12/06/21 10:25 Dose: 150 mg Documented by: SARAH Dexamethasone Sodium Phosphate (Dexamethasone Sod Phosphate 4 Mg/Ml Vial) 6 mg IVPUSH DAILY@1400 [facility] Stop: 12/08/21 14:01 Last Admin: 12/06/21 13:40 Dose: 6 mg Documented by: SARAH Dextrose (Dextrose 50 % 25 Gm/50 Ml Syringe) 25 gm IVPUSH Q15M PRN; Protocol PRN Reason: per Hypoglycemia Standing Ord. Enoxaparin Sodium (Enoxaparin Sodium 40 Mg/0.4 Ml Syringe) 40 mg SUBCUT Q24H [facility] Last Admin: 12/06/21 16:16 Dose: 40 mg Documented by: MARIPOSA Ferrous Sulfate (Ferrous Sulfate 324 Mg Tablet.) 324 mg PO BID [facility] Last Admin: 12/06/21 22:28 Dose: 324 mg Documented by: MARIPOSA Glucose (Glucose Gel 15 Gm Gel..Gram.) 15 gm PO Q15M PRN; Protocol PRN Reason: per Hypoglycemia Standing Ord. Guaifenesin (Guaifenesin La 600 Mg Tab.Er.12h) 600 mg PO BID [facility] Last Admin: 12/06/21 22:28 Dose: 600 mg Documented by: MARIPOSA Guaifenesin (Guaifenesin La 600 Mg Tab.Er.12h) 600 mg PO BID [facility] Dextrose (D5w) 1,000 mls @ 100 mls/hr IVCONT .Q10H [facility] Last Admin: 12/07/21 00:56 Dose: 100 mls/hr Documented by: JUVENAL Insulin Glargine (Insulin Glargine,Hum.Rec.Anlog 100 Unit/Ml 10 Ml Vial) 14 unit SUBCUT BEDTIME [facility] Last Admin: 12/06/21 22:29 Dose: 14 unit Documented by: MARIPOSA Insulin Human Lispro (Insulin Lispro 100 Unit/Ml 3 Ml Vial) 0 unit SUBCUT QIDACHS [facility]; Protocol Last Admin: 12/07/21 07:34 Dose: Not Given Documented by: SARAH Non-Admin Reason: No Insulin Coverage Levothyroxine Sodium (Levothyroxine Sodium 75 Mcg Tablet) 75 mcg PO DAILY@0600 [facility] Last Admin: 12/07/21 06:32 Dose: Not Given Documented by: JUVENAL Non-Admin Reason: Patient Refused Magnesium Oxide (Magnesium Oxide 400 Mg Tablet) 400 mg PO DAILY [facility] Last Admin: 12/06/21 10:24 Dose: 400 mg Documented by: SARAH Melatonin (Melatonin 3 Mg Tablet) 6 mg PO BEDTIME [facility] Last Admin: 12/06/21 22:28 Dose: 6 mg Documented by: MARIPOSA Multivitamins/Vitamin C (Multivitamin Tablet) 1 tab PO DAILY [facility] Last Admin: 12/06/21 10:25 Dose: 1 tab Documented by: SARAH Omeprazole (Omeprazole 20 Mg Capsule.) 20 mg PO DAILY@0630 [facility] Last Admin: 12/07/21 06:32 Dose: Not Given Documented by: JUVENAL Non-Admin Reason: Patient Refused Ondansetron HCl (Ondansetron Hcl 4 Mg/2 Ml Vial) 4 mg IVPUSH Q8H PRN PRN Reason: Nausea and Vomiting Oxcarbazepine (Oxcarbazepine 150 Mg Tablet) 450 mg PO BID [facility] Last Admin: 12/06/21 22:28 Dose: 450 mg Documented by: MARIPOSA Pharmacy Consult (Consult Rx Perform Med Rec) 1 each MISCELLANE ONCE PRN PRN Reason: Consult order Pravastatin Sodium (Pravastatin Sodium 20 Mg Tablet) 20 mg PO BEDTIME [facility] Last Admin: 12/06/21 22:28 Dose: 20 mg Documented by: MARIPOSA Pregabalin (Pregabalin 150 Mg Capsule) 300 mg PO BID [facility] Last Admin: 12/06/21 22:29 Dose: 300 mg Documented by: MARIPOSA Quetiapine Fumarate (Quetiapine Fumarate 200 Mg Tablet) 200 mg PO BEDTIME [facility] Last Admin: 12/06/21 22:28 Dose: 200 mg Documented by: MARIPOSA Quetiapine Fumarate (Quetiapine Fumarate 400 Mg Tablet) 400 mg PO BEDTIME [facility] Last Admin: 12/06/21 22:28 Dose: 400 mg Documented by: MARIPOSA Sodium Chloride (0.9 % Sodium Chloride Flush 3 Ml Syringe) 3 ml IVFLUSH QSHIFT [facility] Last Admin: 12/07/21 00:25 Dose: 3 ml Documented by: JUVENAL Thiamine HCl (Thiamine Hcl 100 Mg Tablet) 100 mg PO DAILY [facility] Last Admin: 12/06/21 10:25 Dose: 100 mg Documented by: SARAH Trazodone HCl (Trazodone Hcl 100 Mg Tablet) 100 mg PO BEDTIME [facility] Last Admin: 12/06/21 22:29 Dose: 100 mg Documented by: MARIPOSA Labs CBC & Chem 7: 12/07/21 07:39 12/07/21 07:39 Labs: Laboratory Results - last 24 hr 12/06/21 12/06/21 12/06/21 10:53 15:56 19:46 MCV MCH MCHC RDW Plt Count MPV Absolute Nucleated RBC Nucleated RBC % (auto) Anion Gap Estim Creat Clear Calc Estimated GFR POC Glucose 129 H 207 H 188 H Random Glucose Calcium Lactate Dehydrogenase C-Reactive Protein 12/07/21 12/07/21 12/07/21 07:21 07:39 07:39 MCV 86.3 MCH 28.0 MCHC 32.5 RDW 14.4 Plt Count 372 MPV 10.7 Absolute Nucleated RBC 0.000 Nucleated RBC % (auto) 0.0 Anion Gap 15 Estim Creat Clear Calc 104.1 Estimated GFR > 60 POC Glucose 132 H Random Glucose 155 H Calcium 9.2 Lactate Dehydrogenase 674 H C-Reactive Protein 6.78 H Microbiology Microbiology Results: Microbiology 12/04/21 11:43 Blood Culture - Preliminary Blood - Venous No growth after 48 hours. 12/04/21 11:43 Blood Culture - Preliminary Blood - Venous No growth after 48 hours. Assessment and Plan (1) Pneumonia due to 2019 novel coronavirus: Status: Acute (2) Hypoxia: Status: Acute (3) UTI (urinary tract infection): Status: Acute Plan 31 yo F with multiple medical problems who was tested positive for COVID on 11/23 (symptomatic 1 week before then) who is admitted for COVID pneumonia causing hypoxia. viral sepsis with Acute Resp Failure with hypoxia due to COVID pneumonia saturation around 89-90% on 5L continue Decadron day 8 trend inflammatory biomakers Id input appreciated, DC ceftriaxone HyperNatremia improving On D5W, monitor Hypokalemia resolved, replacement given DM basal / bolus Mood continue trileptal, seroquel Hypothyroidism synthroid iga deficiency outpatient follow up Hx of autoimmune polyneuropathy continue pregabalin Nausea/vomiting abdominal exam is benign, KUB neg for GI issues symptoms improving Full Code DVT pptx, Lovenox Quality Stroke Does the patient have a stroke diagnosis?: No VTE Prior VTE?: No VTE Risk Level:: Medical - moderate - high VTE Device Contraindication: Treatment Not Indicated VTE Drug Contraindication: N/A - Med Ordered
[2021-12-07] MEDS: Pregabalin 150 MG CAPSULE 300 MG PO (10:49)
[2021-12-07] MEDS: Magnesium Oxide 400 MG TABLET PO (10:49)
[2021-12-07] MEDS: OXcarbazepine 150 MG TABLET 450 MG PO (10:49)
[2021-12-07] MEDS: Thiamine HCL 100 MG TABLET PO (10:50)
[2021-12-07] MEDS: Benzonatate 100 MG CAPSULE PO ×2 (10:50→14:41)
[2021-12-07] MEDS: Multivitamin TABLET 1 TAB PO (10:50)
[2021-12-07] MEDS: guaiFENesin LA 600 MG TAB.ER.12H PO (10:50)
[2021-12-07] MEDS: Ferrous Sulfate 324 MG TABLET.DR PO (10:50)
[2021-12-07] MEDS: buPROPion HCl XL 150 MG TAB.ER.24H PO (10:51)
--- NOTE | 2021-12-07 11:21 | MHC.CM.PN ---
Per ROUNDS discussion, Patient is not yet medically cleared for dc (6L O2, IV Decadron); home is the goal and CM will follow for possible need to adjust the dc plan.
[2021-12-07 11:29] LABS: Glucose, Whole Blood 141 mg/dL (60-115)
--- NOTE | 2021-12-07 13:41 | PC.NURSE ---
Skin assessment completed today. Patient has redness to irwin area. No other skin issues noted at this time.
[2021-12-07] MEDS: dexAMETHasone sod phosphate 4 MG/ML VIAL 6 MG IVPUSH (14:41)
[2021-12-07] MEDS: LORazepam 2 MG/ML VIAL 0.5 MG IVPUSH (16:01)
[2021-12-07 16:21] LABS: Glucose, Whole Blood 202 mg/dL (60-115)
[2021-12-07] MEDS: Enoxaparin Sodium 40 MG/0.4 ML SYRINGE SUBCUT (17:19)
[2021-12-07] MEDS: Insulin Lispro 100 UNIT/ML 3 ML VIAL SUBCUT ×2 (17:19→21:37)
[2021-12-07 20:16] LABS: Glucose, Whole Blood 193 mg/dL (60-115)
[2021-12-07] MEDS: Insulin Glargine,Hum.rec.anlog 100 UNIT/ML 10 ML VIAL 14 UNIT SUBCUT (21:38)
[2021-12-08] VITALS (7 sets, daily range): BP systolic 121–166; BP diastolic 72–88; PULSE 96–109; RESP 14–21; TEMP 36.6–37.5; O2SAT 94–99
[2021-12-08 07:25] LABS: Glucose, Whole Blood 129 mg/dL (60-115)
[2021-12-08 07:51] LABS: Anion Gap 19 (12-20); Blood Urea Nitrogen 17 mg/dL (9-16); Calcium 9.3 mg/dL (8.4-10.2); Carbon Dioxide 18 mmol/L (22-29); Chloride 111 mmol/L (96-108); Creatinine Clr Calc Pharmacy 108.3; Estimated Glomerular Filt Rate > 60; Glucose Random 138 mg/dL (60-115); Potassium 3.2 mmol/L (3.3-5.1); Sodium 145 mmol/L (135-145)
[2021-12-08 08:40] LABS: Magnesium 2.3 mg/dL (1.6-2.6)
[2021-12-08 11:28] LABS: Glucose, Whole Blood 137 mg/dL (60-115)
[2021-12-08] MEDS: 0.9 % Sodium Chloride Flush 3 ML SYRINGE IVFLUSH ×2 (11:37→16:35)
--- NOTE | 2021-12-08 12:19 | P.PNIM_ITS ---
Subjective Subjective Date of Service: 12/08/21 Interval History: the patient was seen and evaluated this morning Laying in bed, anxious, still on 5-6 L of oxygen Having cough Keep asking for help, could not verbalize any meaningful answers No reported other overnight events. Systemic review: Unable to provide any meaningful answers, keeps saying help but does not look in pain Physical Exam Verdana 4l Vital Signs: Verdana 4d Verdana 4d Vital Signs: Verdana 4d Verdana 4Bd Last Vital Signs Verdana 4d Hearing Aid Technician New 4d Hearing Aid Technician New 4d Temp 99.5 F 12/08/21 11:01 Hearing Aid Technician New 4d Pulse 109 H 12/08/21 11:01 Hearing Aid Technician New 4d Resp 20 12/08/21 11:01 BP 134/88 12/08/21 11:01 Pulse Ox 97 12/08/21 11:01 Oxygen Flow Rate 4 11/29/21 11:52 BMI result Body Mass Index 43.0 Const: Other: General - alert, appears anxious, not in respiratory distress Cardiovascular - S1S2, tachycardic Lungs - no distress, chest wall moving common oxygen supplement Abdomen - soft, non-tender, no rebound or guarding Extremities - no edema bilaterally Neuro - awake and alert, bilateral lower extremity weakness, altered cognition with decreased responses and inability to verbalize her needs or complaints Objective Data Active Medications Acetaminophen (Acetaminophen 325 Mg Tablet) 650 mg PO Q6H PRN PRN Reason: Pain, Mild (Pain Scale 1-3) Last Admin: 12/03/21 16:16 Dose: 650 mg Documented by: SARAH Benzonatate (Benzonatate 100 Mg Capsule) 100 mg PO TID [facility] Last Admin: 12/08/21 11:40 Dose: Not Given Documented by: HÉCTOR Non-Admin Reason: Patient Refused Bupropion HCl (Bupropion Hcl Xl 150 Mg Tab.Er.24h) 150 mg PO DAILY [facility] Last Admin: 12/08/21 11:40 Dose: Not Given Documented by: HÉCTOR Non-Admin Reason: Patient Refused Dexamethasone Sodium Phosphate (Dexamethasone Sod Phosphate 4 Mg/Ml Vial) 6 mg IVPUSH DAILY@1400 [facility] Stop: 12/08/21 14:01 Last Admin: 12/07/21 14:41 Dose: 6 mg Documented by: SARAH Dextrose (Dextrose 50 % 25 Gm/50 Ml Syringe) 25 gm IVPUSH Q15M PRN; Protocol PRN Reason: per Hypoglycemia Standing Ord. Enoxaparin Sodium (Enoxaparin Sodium 40 Mg/0.4 Ml Syringe) 40 mg SUBCUT Q24H [facility] Last Admin: 12/07/21 17:19 Dose: 40 mg Documented by: SARAH Ferrous Sulfate (Ferrous Sulfate 324 Mg Tablet.Dr) 324 mg PO BID [facility] Last Admin: 12/08/21 11:40 Dose: Not Given Documented by: HÉCTOR Non-Admin Reason: Patient Refused Glucose (Glucose Gel 15 Gm Gel..Gram.) 15 gm PO Q15M PRN; Protocol PRN Reason: per Hypoglycemia Standing Ord. Guaifenesin (Guaifenesin La 600 Mg Tab.Er.12h) 600 mg PO BID [facility] Last Admin: 12/08/21 11:40 Dose: Not Given Documented by: HÉCTOR Non-Admin Reason: Patient Refused Insulin Glargine (Insulin Glargine,Hum.Rec.Anlog 100 Unit/Ml 10 Ml Vial) 14 unit SUBCUT BEDTIME [facility] Last Admin: 12/07/21 21:38 Dose: 14 unit Documented by: YAZMIN Insulin Human Lispro (Insulin Lispro 100 Unit/Ml 3 Ml Vial) 0 unit SUBCUT QIDACHS [facility]; Protocol Last Admin: 12/08/21 11:45 Dose: Not Given Documented by: HÉCTOR Non-Admin Reason: No Insulin Coverage Levothyroxine Sodium (Levothyroxine Sodium 75 Mcg Tablet) 75 mcg PO DAILY@0600 [facility] Last Admin: 12/08/21 03:23 Dose: Not Given Documented by: YAZMIN Non-Admin Reason: Patient Refused Magnesium Oxide (Magnesium Oxide 400 Mg Tablet) 400 mg PO DAILY [facility] Last Admin: 12/08/21 11:40 Dose: Not Given Documented by: HÉCTOR Non-Admin Reason: Patient Refused Melatonin (Melatonin 3 Mg Tablet) 6 mg PO BEDTIME [facility] Last Admin: 12/07/21 21:37 Dose: Not Given Documented by: YAZMIN Non-Admin Reason: Patient Refused Multivitamins/Vitamin C (Multivitamin Tablet) 1 tab PO DAILY [facility] Last Admin: 12/08/21 11:40 Dose: Not Given Documented by: HÉCTOR Non-Admin Reason: Patient Refused Omeprazole (Omeprazole 20 Mg Capsule.) 20 mg PO DAILY@0630 [facility] Last Admin: 12/08/21 03:23 Dose: Not Given Documented by: ANTLORRAINE Non-Admin Reason: Patient Refused Ondansetron HCl (Ondansetron Hcl 4 Mg/2 Ml Vial) 4 mg IVPUSH Q8H PRN PRN Reason: Nausea and Vomiting Oxcarbazepine (Oxcarbazepine 150 Mg Tablet) 450 mg PO BID [facility] Last Admin: 12/08/21 11:40 Dose: Not Given Documented by: HÉCTOR Non-Admin Reason: Patient Refused Pharmacy Consult (Consult Rx Perform Med Rec) 1 each MISCELLANE ONCE PRN PRN Reason: Consult order Pravastatin Sodium (Pravastatin Sodium 20 Mg Tablet) 20 mg PO BEDTIME [facility] Last Admin: 12/07/21 21:37 Dose: Not Given Documented by: ANTLORRAINE Non-Admin Reason: Patient Refused Pregabalin (Pregabalin 150 Mg Capsule) 150 mg PO BID [facility] Last Admin: 12/08/21 11:41 Dose: Not Given Documented by: HÉCTOR Non-Admin Reason: Patient Refused Quetiapine Fumarate (Quetiapine Fumarate 400 Mg Tablet) 400 mg PO BEDTIME [facility] Last Admin: 12/07/21 21:37 Dose: Not Given Documented by: ANTLORRAINE Non-Admin Reason: Patient Refused Sodium Chloride (0.9 % Sodium Chloride Flush 3 Ml Syringe) 3 ml IVFLUSH QSHIFT [facility] Last Admin: 12/08/21 11:37 Dose: 3 ml Documented by: HÉCTOR Thiamine HCl (Thiamine Hcl 100 Mg Tablet) 100 mg PO DAILY [facility] Last Admin: 12/08/21 11:41 Dose: Not Given Documented by: HÉCTOR Non-Admin Reason: Patient Refused Trazodone HCl (Trazodone Hcl 100 Mg Tablet) 100 mg PO BEDTIME [facility] Last Admin: 12/07/21 21:37 Dose: Not Given Documented by: ANTLORRAINE Non-Admin Reason: Patient Refused Labs CBC & Chem 7: 12/07/21 07:39 12/08/21 07:18 Labs: Laboratory Results - last 24 hr 12/07/21 12/07/21 12/08/21 16:18 20:07 07:10 Anion Gap Estim Creat Clear Calc Estimated GFR POC Glucose 202 H 193 H 129 H Random Glucose Calcium Magnesium 12/08/21 12/08/21 07:18 11:00 Anion Gap 19 Estim Creat Clear Calc 108.3 Estimated GFR > 60 POC Glucose 137 H Random Glucose 138 H Calcium 9.3 Magnesium 2.3 Assessment and Plan (1) Pneumonia due to 2019 novel coronavirus: Status: Acute (2) Hypoxia: Status: Acute (3) Encephalopathy, metabolic: Status: Acute Plan 31 yo F with multiple medical problems who was tested positive for COVID on 11/23 (symptomatic 1 week before then) who is admitted for COVID pneumonia causing hypoxia. viral sepsis with Acute Resp Failure with hypoxia due to COVID pneumonia saturation around 89-90% on 5-6L continue Decadron day 9 trend inflammatory biomakers Id input appreciated, DC ceftriaxone Metabolic encephalopathy Asking for help but unable to verbalize any meaningful sentences Denies pain Could be related to multi pharmacy including trazodone, Seroquel, Lyrica and oxcarbazepine Could be related to steroid therapy as well Decrease Seroquel and Steff Get care team evaluation HyperNatremia improving hold D5W, monitor Hypokalemia resolved, to give replacement DM basal / bolus Mood continue trileptal, seroquel Hypothyroidism synthroid iga deficiency outpatient follow up Hx of autoimmune polyneuropathy continue pregabalin Nausea/vomiting abdominal exam is benign, KUB neg for GI issues symptoms improving DVT pptx, Lovenox Quality Stroke Does the patient have a stroke diagnosis?: No VTE Prior VTE?: No VTE Risk Level:: Medical - moderate - high VTE Device Contraindication: Treatment Not Indicated VTE Drug Contraindication: N/A - Med Ordered
[2021-12-08] MEDS: Potassium Chloride/H20 10 MEQ/100 ML PIGGYBACK 100 MEQ IV ×2 (13:05→15:10)
[2021-12-08] MEDS: dexAMETHasone sod phosphate 4 MG/ML VIAL 6 MG IVPUSH (13:05)
--- NOTE | 2021-12-08 13:06 | MHC.CARE ---
CARE Team receives consult for this pt regarding anxiety.? Review of pt?s chart indicates that there is a behavioral change that is far from pt?s baseline.? Pt does not appear to be able to respond to commands and engage effectively. CARE Team speaks with pt?s nurse who confirms that there is a notable change in pt?s behavior as the nurse caring for her is aware of the pt?s baseline behavior.? Pt is unable to respond effectively to commands and engage appropriately in a gainful communication.? By RN report, pt has been asking for help ?Help me, please help me.? But is unable to articulate what she needs.? Pt?s nurse stated that pt frequently has a ?Fearful look on her face? and appears anxious. ?CARE Team speaks with Dr. Fitch regarding what the expected outcome for pt is.? At present, it does not appear that pt can benefit from the talk therapy necessary to determining and treating of her anxiety.? Dr. Fitch stated that he would consult with psychiatry. CARE Team will be available when pt is able to effectively engage again.
[2021-12-08 13:37] LABS: Alanine Aminotransferase 53 U/L (0-31); Alkaline Phosphatase 149 U/L (39-117); Aspartate Amino Transferase 55 U/L (5-31); Bilirubin Direct 0.4 mg/dL (0.0-0.5); Bilirubin Total 0.5 mg/dL (0.0-1.0)
[2021-12-08 15:57] LABS: Glucose, Whole Blood 179 mg/dL (60-115)
[2021-12-08] MEDS: Enoxaparin Sodium 40 MG/0.4 ML SYRINGE SUBCUT (16:35)
[2021-12-08] MEDS: Insulin Lispro 100 UNIT/ML 3 ML VIAL SUBCUT (16:35)
--- NOTE | 2021-12-08 17:08 | P.CNPS_ITS ---
History of Present Illness Date of Service: 12/08/21 Chief Complaint: covid Reason for Consult: increased anxiety, altered mentation, polypharmacy. Requesting physician: Lore Fernandez Discussed with referring provider: Yes Sources of Information: patient interviewed and chart reviewed Additional Sources of Information: Patient's RN, Cecilia CHRISTIANSON Narrative: ?Patient is a 31-year-old female, PMH multiple medical issues. Presented to ED with fever, tachycardia and hypoxia.? She was admitted for further management a nd treatment of acute hypoxic respiratory failure secondary to COVID-19. Patient has a history of bipolar disorder, with multiple medications including bupropion, oxcarbazepine, quetiapine, and trazodone, in addition to multiple other meds. Psychiatry was asked to meet with patient due to AMS, with increased anxiety. Past Psychiatric History: Patient has outpatient psychiatrist, Dr. Daina Daley. Longstanding history bipolar disorder. Per chart review, patient had reported history of AH and paranoia. 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 According to chart now, patient has minimal mobility r/t auto immune d/o, and requires 24/7 care. Lives with parents, who care for her and her sons. Father is her SEAFOOD CLERK. Review of Systems Review of Systems Yes Unobtainable due to mental status [facility] Medical History Acquired hypothyroidism Bipolar disorder Blurred vision, bilateral Clinical decompensation Diabetes mellitus with hyperglycemia Elevated vitamin B12 level Esophagitis with gastritis Essential hypertension Gait instability Gastric paresis Hx of Escherichia coli septicemia Hyperlipidemia Muscle weakness Obesity, morbid, BMI 40.0-49.9 Peripheral neuropathy Vitamin D deficiency Surgical History Hx of section Hx of tooth extraction Family History: unknown Social History: Requires 24/7 care, lives with parents. Has 2 young sons that also live with her and her parents. Substance History: unknown Trauma History: unknown Diagnostics Vital Signs (24Hr): Vital Signs - 24 hr 12/07/21 19:17 12/07/21 23:31 12/08/21 03:05 Temperature 99.1 F 97.8 F 98.0 F Pulse Rate 106 H 107 H 106 H Respiratory Rate 16 20 21 H Blood Pressure 132/70 133/83 166/82 H Pulse Oximetry 9 L 95 94 12/08/21 08:00 12/08/21 09:29 12/08/21 11:01 Temperature 98.7 F 99.5 F Pulse Rate 98 98 109 H Respiratory Rate 20 20 Blood Pressure 136/76 136/76 134/88 Pulse Oximetry 98 98 97 12/08/21 15:19 Temperature 97.9 F Pulse Rate 100 Respiratory Rate 14 Blood Pressure 121/82 Pulse Oximetry 97 BMI result Verdana 4 Body Mass Index Verdana 4 43.0 Verdana 4 Verdana 4 Labs Results: 12/07/21 07:39 12/08/21 07:18 Labs: Laboratory Results - last 48 hr 12/06/21 12/07/21 12/07/21 19:46 07:21 07:39 WBC 6.0 RBC 4.82 Hgb 13.5 Hct 41.6 MCV 86.3 MCH 28.0 MCHC 32.5 RDW 14.4 Plt Count 372 MPV 10.7 Absolute Nucleated RBC 0.000 Nucleated RBC % (auto) 0.0 Sodium Potassium Chloride Carbon Dioxide Anion Gap BUN Creatinine Estim Creat Clear Calc Estimated GFR POC Glucose 188 H 132 H Random Glucose Calcium Magnesium Total Bilirubin Direct Bilirubin AST ALT Alkaline Phosphatase Lactate Dehydrogenase C-Reactive Protein Total Protein Albumin 12/07/21 12/07/21 12/07/21 07:39 11:14 16:18 WBC RBC Hgb Hct MCV MCH MCHC RDW Plt Count MPV Absolute Nucleated RBC Nucleated RBC % (auto) Sodium 143 Potassium 3.3 Chloride 109 H Carbon Dioxide 22 Anion Gap 15 BUN 16 Creatinine 0.79 Estim Creat Clear Calc 104.1 Estimated GFR > 60 POC Glucose 141 H 202 H Random Glucose 155 H Calcium 9.2 Magnesium Total Bilirubin Direct Bilirubin AST ALT Alkaline Phosphatase Lactate Dehydrogenase 674 H C-Reactive Protein 6.78 H Total Protein Albumin 12/07/21 12/08/21 12/08/21 20:07 07:10 07:18 WBC RBC Hgb Hct MCV MCH MCHC RDW Plt Count MPV Absolute Nucleated RBC Nucleated RBC % (auto) Sodium 145 Potassium 3.2 L Chloride 111 H Carbon Dioxide 18 L Anion Gap 19 BUN 17 H Creatinine 0.76 Estim Creat Clear Calc 108.3 Estimated GFR > 60 POC Glucose 193 H 129 H Random Glucose 138 H Calcium 9.3 Magnesium 2.3 Total Bilirubin 0.5 Direct Bilirubin 0.4 AST 55 H ALT 53 H Alkaline Phosphatase 149 H Lactate Dehydrogenase C-Reactive Protein Total Protein 7.0 Albumin 4.0 12/08/21 12/08/21 11:00 15:50 WBC RBC Hgb Hct MCV MCH MCHC RDW Plt Count MPV Absolute Nucleated RBC Nucleated RBC % (auto) Sodium Potassium Chloride Carbon Dioxide Anion Gap BUN Creatinine Estim Creat Clear Calc Estimated GFR POC Glucose 137 H 179 H Random Glucose Calcium Magnesium Total Bilirubin Direct Bilirubin AST ALT Alkaline Phosphatase Lactate Dehydrogenase C-Reactive Protein Total Protein Albumin Imaging Radiology Impressions: ITS Impressions Chest X-Ray 11/29/21 11:47 IMPRESSION: Low lung volumes and new bilateral infiltrates. Chest CTA 11/30/21 14:13 IMPRESSION: Limited exam due to artifact from respiratory motion. No large or central pulmonary embolism. Low lung volumes and bilateral groundglass attenuation infiltrates compatible with Covid infection. Probable hepatosplenomegaly. VTE: negative KUB X-Ray 12/01/21 12:49 IMPRESSION: No evidence of bowel obstruction. Markedly distended bladder. Chest X-Ray 12/04/21 08:32 IMPRESSION: Low lung volumes and bilateral infiltrates similar to recent exams. Mental Status Exam Mental Status Exam Narrative: Unable to conduct a full mental status exam, due to AMS. Patient repeatedly states ?help, help me ?. Lying in bed, appropriate grooming. Patient Appearance: Fatigued Level of Consciousness: Awake Patient Behavior: Passive and Fearful Mood Description: Anxious Affect Description: Anxious Patient Cognition Impaired: Yes Ability to Follow Directions: Poor Speech Pattern: Soft-Spoken (states help me repeatedly) Thought Process: Disoriented Thought Content: positive for Disoriented Judgement: Poor Medications Medications Current Medications Acetaminophen (Acetaminophen 325 Mg Tablet) 650 mg PO Q6H PRN PRN Reason: Pain, Mild (Pain Scale 1-3) Last Admin: 12/03/21 16:16 Dose: 650 mg Documented by: Benzonatate (Benzonatate 100 Mg Capsule) 100 mg PO TID [facility] Last Admin: 12/08/21 16:43 Dose: Not Given Documented by: Bupropion HCl (Bupropion Hcl Xl 150 Mg Tab.Er.24h) 150 mg PO DAILY [facility] Last Admin: 12/08/21 11:40 Dose: Not Given Documented by: Dextrose (Dextrose 50 % 25 Gm/50 Ml Syringe) 25 gm IVPUSH Q15M PRN; Protocol PRN Reason: per Hypoglycemia Standing Ord. Enoxaparin Sodium (Enoxaparin Sodium 40 Mg/0.4 Ml Syringe) 40 mg SUBCUT Q24H [facility] Last Admin: 12/08/21 16:35 Dose: 40 mg Documented by: Ferrous Sulfate (Ferrous Sulfate 324 Mg Tablet.) 324 mg PO BID [facility] Last Admin: 12/08/21 11:40 Dose: Not Given Documented by: Glucose (Glucose Gel 15 Gm Gel..Gram.) 15 gm PO Q15M PRN; Protocol PRN Reason: per Hypoglycemia Standing Ord. Guaifenesin (Guaifenesin La 600 Mg Tab.Er.12h) 600 mg PO BID [facility] Last Admin: 12/08/21 11:40 Dose: Not Given Documented by: Haloperidol Lactate (Haloperidol Lactate 5 Mg/Ml Vial) 0.5 mg IVPUSH Q6H PRN PRN Reason: anxiety/restlessness Insulin Glargine (Insulin Glargine,Hum.Rec.Anlog 100 Unit/Ml 10 Ml Vial) 14 unit SUBCUT BEDTIME [facility] Last Admin: 12/07/21 21:38 Dose: 14 unit Documented by: Insulin Human Lispro (Insulin Lispro 100 Unit/Ml 3 Ml Vial) 0 unit SUBCUT QIDACHS [facility]; Protocol Last Admin: 12/08/21 16:35 Dose: 2 unit Documented by: Levothyroxine Sodium (Levothyroxine Sodium 75 Mcg Tablet) 75 mcg PO DAILY@0600 [facility] Last Admin: 12/08/21 03:23 Dose: Not Given Documented by: Magnesium Oxide (Magnesium Oxide 400 Mg Tablet) 400 mg PO DAILY [facility] Last Admin: 12/08/21 11:40 Dose: Not Given Documented by: Melatonin (Melatonin 3 Mg Tablet) 6 mg PO BEDTIME [facility] Last Admin: 12/07/21 21:37 Dose: Not Given Documented by: Multivitamins/Vitamin C (Multivitamin Tablet) 1 tab PO DAILY [facility] Last Admin: 12/08/21 11:40 Dose: Not Given Documented by: Omeprazole (Omeprazole 20 Mg Capsule.) 20 mg PO DAILY@0630 [facility] Last Admin: 12/08/21 03:23 Dose: Not Given Documented by: Ondansetron HCl (Ondansetron Hcl 4 Mg/2 Ml Vial) 4 mg IVPUSH Q8H PRN PRN Reason: Nausea and Vomiting Oxcarbazepine (Oxcarbazepine 150 Mg Tablet) 450 mg PO BID [facility] Last Admin: 12/08/21 11:40 Dose: Not Given Documented by: Pharmacy Consult (Consult Rx Perform Med Rec) 1 each MISCELLANE ONCE PRN PRN Reason: Consult order Pravastatin Sodium (Pravastatin Sodium 20 Mg Tablet) 20 mg PO BEDTIME [facility] Last Admin: 12/07/21 21:37 Dose: Not Given Documented by: Pregabalin (Pregabalin 150 Mg Capsule) 150 mg PO BID [facility] Last Admin: 12/08/21 11:41 Dose: Not Given Documented by: Quetiapine Fumarate (Quetiapine Fumarate 400 Mg Tablet) 400 mg PO BEDTIME [facility] Last Admin: 12/07/21 21:37 Dose: Not Given Documented by: Sodium Bicarbonate (Sodium Bicarbonate 650 Mg Tablet) 650 mg PO BID [facility] Last Admin: 12/08/21 15:13 Dose: Not Given Documented by: Sodium Chloride (0.9 % Sodium Chloride Flush 3 Ml Syringe) 3 ml IVFLUSH QSHIFT [facility] Last Admin: 12/08/21 16:35 Dose: 3 ml Documented by: Thiamine HCl (Thiamine Hcl 100 Mg Tablet) 100 mg PO DAILY [facility] Last Admin: 12/08/21 11:41 Dose: Not Given Documented by: Trazodone HCl (Trazodone Hcl 100 Mg Tablet) 100 mg PO BEDTIME [facility] Last Admin: 12/07/21 21:37 Dose: Not Given Documented by: Allergies Allergies Allergy/AdvReac Type Severity Reaction Status Date / Time latex Allergy Unknown rash Verified 11/14/21 00:57 metoclopramide [From AdvReac Unknown INTERACTS Verified 11/14/21 00:57 REGLAN] W/ SEROQUEL Assessment & Plan Assessment & Plan (1) Bipolar disorder: Status: Acute Code(s): F31.9 - Bipolar disorder, unspecified Assessment and Plan: Client with history of bipolar disorder on multiple medications including atypical antipsychotic and mood stabilizer. Client refused oral medications last night and this morning. Concern for development of psychosis related to bipolar disorder and use of glucocorticoid. Patient unable to participate in interview, simply repeats help me over and over to this mortgage or loan underwriter. Plan 1. Recommend haloperidol IV 0.5-1 mg q.6 hours p.r.n. for anxiety/agitation. This was shared with provider Dr. Lore Fernandez, via secure electronic messaging system. Psychiatry service will continue to follow this patient along with you while she is hospitalized. Thank you. I spent minutes with the patient and/or on the patient floor today, greater than?50% of which was spent counseling/coordinating care. Patient educated on: medication risk/benefits Informed Consent: does not understand
[2021-12-08 20:06] LABS: Glucose, Whole Blood 150 mg/dL (60-115)
[2021-12-09 02:59] VITALS: BP 149/77; PULSE 104; RESP 21; TEMP 36.7; O2SAT 99
[2021-12-09] MEDS: 0.9 % Sodium Chloride Flush 3 ML SYRINGE IVFLUSH ×4 (03:33→21:37)
[2021-12-09 06:44] LABS: Hematocrit 43.6 % (37.0-47.0); Hemoglobin 14.1 g/dl (12.0-16.0); Mean Corpuscular HGB Conc 32.3 g/dl (31.0-35.0); Mean Corpuscular Hemoglobin 27.7 pg (27.0-33.0); Mean Corpuscular Volume 85.7 fL (80.0-98.0); Mean Platelet Volume 10.8 fL (9.4-12.3); Platelet Count 469 X10*3/uL (160-400); Red Blood Count 5.09 X10*6/uL (4.20-5.50); Red Cell Distribution Width 14.5 % (11.0-16.0); White Blood Count 6.7 X10*3/uL (4.8-10.8)
[2021-12-09 07:14] LABS: Alanine Aminotransferase 54 U/L (0-31); Albumin Level 4.1 g/dL (3.5-5.0); Alkaline Phosphatase 161 U/L (39-117); Anion Gap 19 (12-20); Aspartate Amino Transferase 50 U/L (5-31); Bilirubin Direct 0.3 mg/dL (0.0-0.5); Bilirubin Total 0.5 mg/dL (0.0-1.0); Blood Urea Nitrogen 21 mg/dL (9-16); C Reactive Protein 3.75 mg/dL (< or = 0.50); Calcium 9.7 mg/dL (8.4-10.2); Carbon Dioxide 18 mmol/L (22-29); Chloride 116 mmol/L (96-108); Creatinine Clr Calc Pharmacy 100.3; Estimated Glomerular Filt Rate > 60; Glucose Random 148 mg/dL (60-115); Lactate Dehydrogenase 530 U/L (122-220); Potassium 3.6 mmol/L (3.3-5.1); Sodium 149 mmol/L (135-145); Total Protein 7.2 g/dL (6.5-8.0)
[2021-12-09] MEDS: Haloperidol Lactate 5 MG/ML VIAL IVPUSH ×2 (07:36→16:08)
[2021-12-09 07:40] LABS: Glucose, Whole Blood 145 mg/dL (60-115)
[2021-12-09 08:00] VITALS: BP 116/76; PULSE 113; RESP 20; TEMP 37.2; O2SAT 97
[2021-12-09] MEDS: Dextrose 5 % 1,000 ML 125 ML IVCONT (09:43)
[2021-12-09] MEDS: levETIRAcetam in NaCl (iso-os) 500 MG/100 ML PIGGYBACK 400 MG IV (11:04)
[2021-12-09 11:06] VITALS: BP 134/87; PULSE 117; RESP 18; TEMP 36.9; O2SAT 94
[2021-12-09 11:08] LABS: Glucose, Whole Blood 158 mg/dL (60-115)
--- NOTE | 2021-12-09 11:16 | P.PNIM_ITS ---
Subjective Subjective Date of Service: 12/09/21 Interval History: the patient was seen and evaluated this morning Laying in bed, anxious, decreased to room Still having cough Keep asking for help, could not verbalize any meaningful answers No reported other overnight events. Systemic review: Unable to provide any meaningful answers, keeps saying help , please but unable to make a sentence or 2 point at any concerning thing Physical Exam Verdana 4l Vital Signs: Verdana 4d Verdana 4d Vital Signs: Verdana 4d Verdana 4Bd Last Vital Signs Verdana 4d Skid Adzer New 4d Skid Adzer New 4d Temp 98.5 F 12/09/21 11:06 Skid Adzer New 4d Pulse 117 H 12/09/21 11:06 Skid Adzer New 4d Resp 18 12/09/21 11:06 BP 134/87 12/09/21 11:06 Pulse Ox 94 12/09/21 11:06 Oxygen Flow Rate 4 11/29/21 11:52 BMI result Body Mass Index 43.0 Const: Other: General - alert, appears anxious, not in respiratory distress Cardiovascular - S1S2, tachycardic Lungs - no distress, chest wall moving common , on room air Abdomen - soft, non-tender, no rebound or guarding Extremities - no edema bilaterally Neuro - awake and alert, bilateral lower extremity weakness, altered cognition with decreased responses and inability to verbalize her needs or complaints Objective Data Active Medications Acetaminophen (Acetaminophen 325 Mg Tablet) 650 mg PO Q6H PRN PRN Reason: Pain, Mild (Pain Scale 1-3) Last Admin: 12/03/21 16:16 Dose: 650 mg Documented by: BRONilson Benzonatate (Benzonatate 100 Mg Capsule) 100 mg PO TID [facility] Last Admin: 12/09/21 10:08 Dose: Not Given Documented by: HÉCTOR Non-Admin Reason: Patient Condition Contraindication Bupropion HCl (Bupropion Hcl Xl 150 Mg Tab.Er.24h) 150 mg PO DAILY [facility] Last Admin: 12/09/21 10:08 Dose: Not Given Documented by: HÉCTOR Non-Admin Reason: Patient Condition Contraindication Dextrose (Dextrose 50 % 25 Gm/50 Ml Syringe) 25 gm IVPUSH Q15M PRN; Protocol PRN Reason: per Hypoglycemia Standing Ord. Enoxaparin Sodium (Enoxaparin Sodium 40 Mg/0.4 Ml Syringe) 40 mg SUBCUT Q24H [facility] Last Admin: 12/08/21 16:35 Dose: 40 mg Documented by: HÉCTOR Ferrous Sulfate (Ferrous Sulfate 324 Mg Tablet.Dr) 324 mg PO BID [facility] Last Admin: 12/09/21 10:08 Dose: Not Given Documented by: HÉCTOR Non-Admin Reason: Patient Condition Contraindication Glucose (Glucose Gel 15 Gm Gel..Gram.) 15 gm PO Q15M PRN; Protocol PRN Reason: per Hypoglycemia Standing Ord. Guaifenesin (Guaifenesin La 600 Mg Tab.Er.12h) 600 mg PO BID [facility] Last Admin: 12/09/21 10:08 Dose: Not Given Documented by: HÉCTOR Non-Admin Reason: Patient Condition Contraindication Haloperidol Lactate (Haloperidol Lactate 5 Mg/Ml Vial) 0.5 mg IVPUSH Q6H PRN PRN Reason: anxiety/restlessness Last Admin: 12/09/21 07:36 Dose: 0.5 mg Documented by: HÉCTOR Dextrose (D5w) 1,000 mls @ 125 mls/hr IVCONT .Q8H [facility] Stop: 12/09/21 21:00 Last Admin: 12/09/21 09:43 Dose: 125 mls/hr Documented by: HÉCTOR Levetiracetam (Keppra) 500 mg in 100 mls @ 400 mls/hr IV Q12H [facility] Last Admin: 12/09/21 11:04 Dose: 400 mls/hr Documented by: HÉCTOR Insulin Glargine (Insulin Glargine,Hum.Rec.Anlog 100 Unit/Ml 10 Ml Vial) 14 unit SUBCUT BEDTIME [facility] Last Admin: 12/08/21 22:07 Dose: Not Given Documented by: ABDIRAHMAN Non-Admin Reason: refusing to eat Insulin Human Lispro (Insulin Lispro 100 Unit/Ml 3 Ml Vial) 0 unit SUBCUT QIDACHS [facility]; Protocol Last Admin: 12/09/21 07:43 Dose: Not Given Documented by: HÉCTOR Non-Admin Reason: No Insulin Coverage Levothyroxine Sodium (Levothyroxine Sodium 75 Mcg Tablet) 75 mcg PO DAILY@0600 [facility] Last Admin: 12/09/21 05:48 Dose: Not Given Documented by: ABDIRAHMAN Non-Admin Reason: Patient Refused Magnesium Oxide (Magnesium Oxide 400 Mg Tablet) 400 mg PO DAILY [facility] Last Admin: 12/09/21 10:09 Dose: Not Given Documented by: HÉCTOR Non-Admin Reason: Patient Condition Contraindication Melatonin (Melatonin 3 Mg Tablet) 6 mg PO BEDTIME [facility] Last Admin: 12/08/21 22:07 Dose: Not Given Documented by: ABDIRAHMAN Non-Admin Reason: Patient Refused Multivitamins/Vitamin C (Multivitamin Tablet) 1 tab PO DAILY [facility] Last Admin: 12/09/21 10:09 Dose: Not Given Documented by: HÉCTOR Non-Admin Reason: Patient Condition Contraindication Omeprazole (Omeprazole 20 Mg Capsule.Dr) 20 mg PO DAILY@0630 [facility] Last Admin: 12/09/21 05:48 Dose: Not Given Documented by: ABDIRAHMAN Non-Admin Reason: Patient Refused Ondansetron HCl (Ondansetron Hcl 4 Mg/2 Ml Vial) 4 mg IVPUSH Q8H PRN PRN Reason: Nausea and Vomiting Oxcarbazepine (Oxcarbazepine 150 Mg Tablet) 450 mg PO BID [facility] Last Admin: 12/09/21 10:09 Dose: Not Given Documented by: HÉCTOR Non-Admin Reason: Patient Refused Pharmacy Consult (Consult Rx Perform Med Rec) 1 each MISCELLANE ONCE PRN PRN Reason: Consult order Pravastatin Sodium (Pravastatin Sodium 20 Mg Tablet) 20 mg PO BEDTIME [facility] Last Admin: 12/08/21 22:07 Dose: Not Given Documented by: ABDIRAHMAN Non-Admin Reason: Patient Refused Pregabalin (Pregabalin 150 Mg Capsule) 150 mg PO BID [facility] Last Admin: 12/09/21 09:59 Dose: Not Given Documented by: HÉCTOR Non-Admin Reason: Patient Refused Quetiapine Fumarate (Quetiapine Fumarate 400 Mg Tablet) 400 mg PO BEDTIME [facility] Last Admin: 12/08/21 22:08 Dose: Not Given Documented by: ABDIRAHMAN Non-Admin Reason: Patient Refused Sodium Chloride (0.9 % Sodium Chloride Flush 3 Ml Syringe) 3 ml IVFLUSH QSHIFT [facility] Last Admin: 12/09/21 09:43 Dose: 3 ml Documented by: HÉCTOR Thiamine HCl (Thiamine Hcl 100 Mg Tablet) 100 mg PO DAILY [facility] Last Admin: 12/09/21 10:09 Dose: Not Given Documented by: HÉCTOR Non-Admin Reason: Patient Condition Contraindication Trazodone HCl (Trazodone Hcl 100 Mg Tablet) 100 mg PO BEDTIME [facility] Last Admin: 12/08/21 22:08 Dose: Not Given Documented by: ABDIRAHMAN Non-Admin Reason: Patient Refused Labs CBC & Chem 7: 12/09/21 06:04 12/09/21 06:04 Labs: Laboratory Results - last 24 hr 12/08/21 12/08/21 12/08/21 07:18 11:00 15:50 MCV MCH MCHC RDW Plt Count MPV Absolute Nucleated RBC Nucleated RBC % (auto) Anion Gap Estim Creat Clear Calc Estimated GFR POC Glucose 137 H 179 H Random Glucose Calcium Total Bilirubin 0.5 Direct Bilirubin 0.4 AST 55 H ALT 53 H Alkaline Phosphatase 149 H Lactate Dehydrogenase C-Reactive Protein Total Protein 7.0 Albumin 4.0 12/08/21 12/09/21 12/09/21 19:58 06:04 06:04 MCV 85.7 MCH 27.7 MCHC 32.3 RDW 14.5 Plt Count 469 H D MPV 10.8 Absolute Nucleated RBC 0.000 Nucleated RBC % (auto) 0.0 Anion Gap 19 Estim Creat Clear Calc 100.3 Estimated GFR > 60 POC Glucose 150 H Random Glucose 148 H Calcium 9.7 Total Bilirubin 0.5 Direct Bilirubin 0.3 AST 50 H ALT 54 H Alkaline Phosphatase 161 H Lactate Dehydrogenase 530 H C-Reactive Protein 3.75 H Total Protein 7.2 Albumin 4.1 12/09/21 12/09/21 07:32 11:03 MCV MCH MCHC RDW Plt Count MPV Absolute Nucleated RBC Nucleated RBC % (auto) Anion Gap Estim Creat Clear Calc Estimated GFR POC Glucose 145 H 158 H Random Glucose Calcium Total Bilirubin Direct Bilirubin AST ALT Alkaline Phosphatase Lactate Dehydrogenase C-Reactive Protein Total Protein Albumin Assessment and Plan (1) Pneumonia due to 2019 novel coronavirus: Status: Acute (2) Encephalopathy, metabolic: Status: Acute (3) Fever: Status: Acute (4) Hypernatremia: Status: Acute Plan 31 yo F with multiple medical problems who was tested positive for COVID on 11/23 (symptomatic 1 week before then) who is admitted for COVID pneumonia causing hypoxia. viral sepsis with Acute Resp Failure with hypoxia due to COVID pneumonia saturation improved to 90s on room Finish steroid therapy Trending down inflammatory biomakers Id input appreciated, DC ceftriaxone Metabolic encephalopathy Asking for help but unable to verbalize any meaningful sentences Denies pain Refused to take p.o. medications for the last 2-3 days including trazodone, Seroquel, Lyrica and oxcarbazepine Could be related to steroid therapy as well , discontinue Concern for possible seizure activity, to start Keppra Get psychiatry team evaluation HyperNatremia Sodium of 149 this morning Restart D5W, Repeat BMP Hypokalemia resolved, to give replacement DM basal / bolus Mood continue trileptal, seroquel Hypothyroidism synthroid iga deficiency outpatient follow up Hx of autoimmune polyneuropathy continue pregabalin DVT pptx, Lovenox Quality Stroke Does the patient have a stroke diagnosis?: No VTE Prior VTE?: No VTE Risk Level:: Medical - moderate - high VTE Device Contraindication: Treatment Not Indicated VTE Drug Contraindication: N/A - Med Ordered
[2021-12-09] MEDS: LORazepam 2 MG/ML VIAL 1 MG IVPUSH (12:26)
[2021-12-09 15:36] VITALS: BP 147/85; PULSE 120; RESP 19; TEMP 36.4; O2SAT 89
--- NOTE | 2021-12-09 15:41 | MHC.CM.PN ---
waiting to hear david moore to approve a visit for brien chu
--- NOTE | 2021-12-09 15:59 | MHC.CM.PN ---
dr viera approved visits from father adelina michoacano notified as well as floor nurse onelia father says he will be coming after 5
[2021-12-09] MEDS: Folic Acid 1 MG in 0.9 % Sodium Chloride 50 ML 100.4 MG IV (16:14)
[2021-12-09 16:24] LABS: Anion Gap 19 (12-20); Blood Urea Nitrogen 22 mg/dL (9-16); Calcium 9.5 mg/dL (8.4-10.2); Carbon Dioxide 16 mmol/L (22-29); Chloride 119 mmol/L (96-108); Creatinine Clr Calc Pharmacy 94.6; Estimated Glomerular Filt Rate > 60; Glucose Random 161 mg/dL (60-115); Potassium 3.4 mmol/L (3.3-5.1); Sodium 151 mmol/L (135-145)
[2021-12-09 16:41] LABS: Glucose, Whole Blood 156 mg/dL (60-115)
[2021-12-09] MEDS: Enoxaparin Sodium 40 MG/0.4 ML SYRINGE SUBCUT (18:15)
[2021-12-09] MEDS: Insulin Lispro 100 UNIT/ML 3 ML VIAL SUBCUT ×2 (18:15→21:36)
--- NOTE | 2021-12-09 20:08 | PC.NURSE ---
Pt agitated, anxious, fearful, restless. PRN haldol 0.5 mg provided little effect. Pt unable to tolerate Ct scan or MRI due to frequent movement. Father / HCP Kiko received approval as a visitor. Father provided list of home medications and monthly IgG infusion information. Father states pt had previous hallucinations when a teenager of falling from a tree and states pt appears similar in current condition. Kiko (Father/ HCP) contact [phone]
[2021-12-09 21:08] LABS: Glucose, Whole Blood 156 mg/dL (60-115)
[2021-12-09 21:35] VITALS: PULSE 136; RESP 20; TEMP 36.7; O2SAT 91
[2021-12-09 23:56] VITALS: BP 136/73; PULSE 94; RESP 20; TEMP 36.9; O2SAT 92
[2021-12-10] VITALS (9 sets, daily range): BP systolic 87–142; BP diastolic 51–92; PULSE 114–140; RESP 17–30; TEMP 34.7–38.3; O2SAT 92–98
[2021-12-10 08:05] LABS: Glucose, Whole Blood 172 mg/dL (60-115)
[2021-12-10 08:28] LABS: Hematocrit 45.1 % (37.0-47.0); Hemoglobin 14.7 g/dl (12.0-16.0); Mean Corpuscular HGB Conc 32.6 g/dl (31.0-35.0); Mean Corpuscular Hemoglobin 27.8 pg (27.0-33.0); Mean Corpuscular Volume 85.4 fL (80.0-98.0); Mean Platelet Volume 10.6 fL (9.4-12.3); Platelet Count 608 X10*3/uL (160-400); Red Blood Count 5.28 X10*6/uL (4.20-5.50); Red Cell Distribution Width 14.6 % (11.0-16.0); White Blood Count 13.9 X10*3/uL (4.8-10.8)
[2021-12-10 08:55] LABS: Anion Gap 22 (12-20); Blood Urea Nitrogen 29 mg/dL (9-16); Calcium 10.1 mg/dL (8.4-10.2); Carbon Dioxide 15 mmol/L (22-29); Chloride 124 mmol/L (96-108); Creatinine Clr Calc Pharmacy 65.3; Estimated Glomerular Filt Rate 49; Glucose Random 165 mg/dL (60-115); Potassium 3.6 mmol/L (3.3-5.1); Sodium 157 mmol/L (135-145)
[2021-12-10] MEDS: Folic Acid 1 MG in 0.9 % Sodium Chloride 50 ML 100 MG IV (09:24)
[2021-12-10] MEDS: Haloperidol Lactate 5 MG/ML VIAL 2 MG IVPUSH (09:43)
[2021-12-10] MEDS: 0.9 % Sodium Chloride Flush 3 ML SYRINGE IVFLUSH (09:46)
[2021-12-10] MEDS: Insulin Lispro 100 UNIT/ML 3 ML VIAL SUBCUT (09:46)
[2021-12-10] MEDS: levETIRAcetam in NaCl (iso-os) 500 MG/100 ML PIGGYBACK 400 MG IV (09:48)
[2021-12-10] MEDS: Dextrose 5 % 1,000 ML 125 ML IVCONT (09:48)
--- NOTE | 2021-12-10 10:47 | P.PNIM_ITS ---
Subjective Subjective Date of Service: 12/10/21 Interval History: the patient was seen and evaluated this morning Laying in bed, less interactive today, very anxious Unable to provide any meaningful answers No reported other overnight events. Systemic review: Unable to provide any meaningful answers, grimacing, very anxious Physical Exam Verdana 4l Vital Signs: Verdana 4d Verdana 4d Vital Signs: Verdana 4d Verdana 4Bd Last Vital Signs Verdana 4d Marine Equipment Preservation Inspector New 4d Marine Equipment Preservation Inspector New 4d Temp 98.6 F 12/10/21 04:00 Marine Equipment Preservation Inspector New 4d Pulse 125 H 12/10/21 07:29 Marine Equipment Preservation Inspector New 4d Resp 19 12/10/21 07:29 BP 142/92 H 12/10/21 07:29 Pulse Ox 95 12/10/21 07:29 Oxygen Flow Rate 4 11/29/21 11:52 BMI result Body Mass Index 43.0 Const: Other: General - alert with stimulation appears anxious and disoriented not in respiratory distress Cardiovascular - S1S2, tachycardic Lungs - no distress, chest wall moving common Abdomen - soft, non-tender, no rebound or guarding Extremities - no edema bilaterally Neuro - awake and alert, bilateral lower extremity weakness, altered cognition with decreased responses and inability to verbalize her needs or complaints Objective Data Active Medications Acetaminophen (Acetaminophen 325 Mg Tablet) 650 mg PO Q6H PRN PRN Reason: Pain, Mild (Pain Scale 1-3) Last Admin: 12/03/21 16:16 Dose: 650 mg Documented by: BRONislon Benzonatate (Benzonatate 100 Mg Capsule) 100 mg PO TID [facility] Last Admin: 12/10/21 10:11 Dose: Not Given Documented by: WENDY Non-Admin Reason: Patient Refused Bupropion HCl (Bupropion Hcl Xl 150 Mg Tab.Er.24h) 150 mg PO DAILY [facility] Last Admin: 12/10/21 10:11 Dose: Not Given Documented by: WENDY Non-Admin Reason: Patient Refused Dextrose (Dextrose 50 % 25 Gm/50 Ml Syringe) 25 gm IVPUSH Q15M PRN; Protocol PRN Reason: per Hypoglycemia Standing Ord. Enoxaparin Sodium (Enoxaparin Sodium 40 Mg/0.4 Ml Syringe) 40 mg SUBCUT Q24H [facility] Last Admin: 12/09/21 18:15 Dose: 40 mg Documented by: HÉCTOR Ferrous Sulfate (Ferrous Sulfate 324 Mg Tablet.Dr) 324 mg PO BID [facility] Last Admin: 12/10/21 10:11 Dose: Not Given Documented by: WENDY Non-Admin Reason: Patient Refused Glucose (Glucose Gel 15 Gm Gel..Gram.) 15 gm PO Q15M PRN; Protocol PRN Reason: per Hypoglycemia Standing Ord. Guaifenesin (Guaifenesin La 600 Mg Tab.Er.12h) 600 mg PO BID [facility] Last Admin: 12/10/21 10:11 Dose: Not Given Documented by: WENDY Non-Admin Reason: Patient Refused Haloperidol Lactate (Haloperidol Lactate 5 Mg/Ml Vial) 0.5 mg IVPUSH Q6H PRN PRN Reason: anxiety/restlessness Last Admin: 12/09/21 16:08 Dose: 0.5 mg Documented by: HÉCTOR Levetiracetam (Keppra) 500 mg in 100 mls @ 400 mls/hr IV Q12H [facility] Last Infusion: 12/10/21 10:23 Dose: 0 mls/hr Documented by: WENDY Folic Acid 1 mg/ Sodium (Chloride) 50.2 mls @ 100.4 mls/hr IV DAILY [facility] Last Infusion: 12/09/21 17:31 Dose: 0 mls/hr Documented by: HÉCTOR Dextrose (D5w) 1,000 mls @ 125 mls/hr IVCONT .Q8H [facility] Last Admin: 12/10/21 09:48 Dose: 125 mls/hr Documented by: WENDY Insulin Glargine (Insulin Glargine,Hum.Rec.Anlog 100 Unit/Ml 10 Ml Vial) 14 unit SUBCUT BEDTIME [facility] Last Admin: 12/09/21 21:36 Dose: Not Given Documented by: COTL Non-Admin Reason: Pt refusing to eat Insulin Human Lispro (Insulin Lispro 100 Unit/Ml 3 Ml Vial) 0 unit SUBCUT QIDACHS [facility]; Protocol Last Admin: 12/10/21 09:46 Dose: 2 unit Documented by: WENDY Levothyroxine Sodium (Levothyroxine Sodium 75 Mcg Tablet) 75 mcg PO DAILY@0600 [facility] Last Admin: 12/10/21 05:57 Dose: Not Given Documented by: COLT Non-Admin Reason: Patient Refused Magnesium Oxide (Magnesium Oxide 400 Mg Tablet) 400 mg PO DAILY [facility] Last Admin: 12/10/21 10:11 Dose: Not Given Documented by: WENDY Non-Admin Reason: Patient Refused Melatonin (Melatonin 3 Mg Tablet) 6 mg PO BEDTIME [facility] Last Admin: 12/09/21 21:41 Dose: Not Given Documented by: COLT Non-Admin Reason: Patient Refused Multivitamins/Vitamin C (Multivitamin Tablet) 1 tab PO DAILY [facility] Last Admin: 12/10/21 10:11 Dose: Not Given Documented by: WENDY Non-Admin Reason: Patient Refused Omeprazole (Omeprazole 20 Mg Capsule.Dr) 20 mg PO DAILY@0630 [facility] Last Admin: 12/10/21 05:57 Dose: Not Given Documented by: COLT Non-Admin Reason: Patient Refused Ondansetron HCl (Ondansetron Hcl 4 Mg/2 Ml Vial) 4 mg IVPUSH Q8H PRN PRN Reason: Nausea and Vomiting Oxcarbazepine (Oxcarbazepine 150 Mg Tablet) 450 mg PO BID [facility] Last Admin: 12/10/21 10:12 Dose: Not Given Documented by: WENDY Non-Admin Reason: Patient Refused Pharmacy Consult (Consult Rx Perform Med Rec) 1 each MISCELLANE ONCE PRN PRN Reason: Consult order Pravastatin Sodium (Pravastatin Sodium 20 Mg Tablet) 20 mg PO BEDTIME [facility] Last Admin: 12/09/21 21:41 Dose: Not Given Documented by: COLT Non-Admin Reason: Patient Refused Pregabalin (Pregabalin 150 Mg Capsule) 150 mg PO BID [facility] Last Admin: 12/10/21 10:12 Dose: Not Given Documented by: WENDY Non-Admin Reason: Patient Refused Quetiapine Fumarate (Quetiapine Fumarate 400 Mg Tablet) 400 mg PO BEDTIME [facility] Last Admin: 12/09/21 21:41 Dose: Not Given Documented by: COLT Non-Admin Reason: Patient Refused Quetiapine Fumarate (Quetiapine Fumarate 200 Mg Tablet) 200 mg PO BEDTIME [facility] Last Admin: 12/09/21 21:42 Dose: Not Given Documented by: COLT Non-Admin Reason: Patient Refused Sodium Chloride (0.9 % Sodium Chloride Flush 3 Ml Syringe) 3 ml IVFLUSH QSHIFT [facility] Last Admin: 12/10/21 09:46 Dose: 3 ml Documented by: WENDY Thiamine HCl (Thiamine Hcl 100 Mg Tablet) 100 mg PO DAILY [facility] Last Admin: 12/10/21 10:12 Dose: Not Given Documented by: WENDY Non-Admin Reason: Patient Refused Trazodone HCl (Trazodone Hcl 100 Mg Tablet) 100 mg PO BEDTIME [facility] Last Admin: 12/09/21 21:42 Dose: Not Given Documented by: COLT Non-Admin Reason: Patient Refused Labs CBC & Chem 7: 12/10/21 08:04 12/10/21 15:11 Labs: Laboratory Results - last 24 hr 12/09/21 12/09/21 12/09/21 11:03 15:49 16:38 MCV MCH MCHC RDW Plt Count MPV Absolute Nucleated RBC Nucleated RBC % (auto) Anion Gap 19 Estim Creat Clear Calc 94.6 Estimated GFR > 60 POC Glucose 158 H 156 H Random Glucose 161 H Calcium 9.5 12/09/21 12/10/21 12/10/21 21:04 07:31 08:04 MCV 85.4 MCH 27.8 MCHC 32.6 RDW 14.6 Plt Count 608 H D MPV 10.6 Absolute Nucleated RBC 0.000 Nucleated RBC % (auto) 0.0 Anion Gap Estim Creat Clear Calc Estimated GFR POC Glucose 156 H 172 H Random Glucose Calcium 12/10/21 08:04 MCV MCH MCHC RDW Plt Count MPV Absolute Nucleated RBC Nucleated RBC % (auto) Anion Gap 22 H Estim Creat Clear Calc 65.3 Estimated GFR 49 POC Glucose Random Glucose 165 H Calcium 10.1 D Microbiology Microbiology Results: Microbiology 12/04/21 11:43 Blood Culture - Final Blood - Venous No growth after 5 days. 12/04/21 11:43 Blood Culture - Final Blood - Venous No growth after 5 days. Assessment and Plan (1) Hypernatremia: Status: Acute (2) Encephalopathy, metabolic: Status: Acute (3) Fever: Status: Acute (4) Acute kidney injury: Status: Acute (5) Sepsis: Status: Acute Plan 31 yo F with multiple medical problems who was tested positive for COVID on 11/23 (symptomatic 1 week before then) who is admitted for COVID pneumonia causing hypoxia. Metabolic encephalopathy Asking for help but unable to verbalize any meaningful sentences Denies pain Refused to take p.o. medications for the last 2-3 days including trazodone, Seroquel, Lyrica and oxcarbazepine Could be related to steroid therapy as well , discontinue Concern for possible seizure activity, to start Keppra Get psychiatry team evaluation SIRS fever, WBCs, likely sepsis secondary to infection, pneumonitis To do blood culture, urinalysis, chest x-ray lactic acid elevated Consider lumbar puncture Hold on antibiotics until source of infection can be identified CRISPIN Cr of 1.9 from baseline of 0.7 likely prerenal To chek urine electrolytes get nephro eval HyperNatremia Sodium of 157 this morning Secondary to decreased oral intake Patient removed IV on 3 different occasions yesterday, to place a new line Restart D5W, to give a bolus then maintenance Repeat BMP Acute Resp Failure with hypoxia due to COVID pneumonia Wean down oxygen to room air as tolerated Finished steroid therapy Id input appreciated, DC ceftriaxone Hypokalemia resolved, to give replacement DM basal / bolus Mood continue trileptal, seroquel Hypothyroidism synthroid iga deficiency outpatient follow up Hx of autoimmune polyneuropathy continue pregabalin DVT pptx, Lovenox Quality Stroke Does the patient have a stroke diagnosis?: No VTE Prior VTE?: No VTE Risk Level:: Medical - moderate - high VTE Device Contraindication: Treatment Not Indicated VTE Drug Contraindication: N/A - Med Ordered
--- NOTE | 2021-12-10 11:13 | P.CNNE_ITS ---
History of Present Illness Data of Consult Service Date: 12/10/21 Primary Care Provider: Lachelle Guerra MD HPI Reason for consult: Mental status change 31 years old woman with complicated neuropsychiatric history. She was suffering from bipolar disorder significant obesity and hypertension when in 2019 she developed progressive illness causing symptoms of generalized weakness gastro paresis and then excessive nausea and vomiting. At 1 point she came to emergency room and was admitted here when she was noted to have quadriparesis and low vitamin B1 level. Initial suspicion was of a progressive demyelinating type of neuropathy. A lumbar puncture was done that revealed normal cells and protein. Any EMG nerve conduction study was tried but she did not tolerated well and it was done in limited fashion in 1 limb. It reveal sensory neuropathy and absent delayed responses. With that information and suspicion of demyelinating neuropathy she was treated with IVIG. She did not improve an infected 1 point was intubated. Mental status deteriorated and she had an MRI of brain done that revealed dorsomedial by thalamic hyperintensities on DWI and FLAIR sequences, and a small subdural hemorrhage in right parieto-occipital area. At this time with deteriorating condition she was transferred to [facility]. There she had extensive workup with repetition of MRI of brain, EMG nerve conduction study, spinal fluid analysis including multiple tests on at and hematological workup. There was suspicion of Sjogren's syndrome but it was not confirmed. A PET scan showed no evidence of malignancy. 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 Her last dose of Rituxan was in June and last dose of IVIG was about a month ago. not improve her. Few days ago she was admitted in this hospital with clinical features of COVID infection. After treatment of this infection it was noted that her mental status was not improving and this consultation was requested. I saw her briefly yesterday and then again today. She did not provide any history. Review of Systems Verdana 4l Review of Systems: Verdana 4d Could not be done with Verdana 4d her Verdana 4d [facility] Past Medical History Medical History Acquired hypothyroidism Bipolar disorder Blurred vision, bilateral Clinical decompensation Diabetes mellitus with hyperglycemia Elevated vitamin B12 level Esophagitis with gastritis Essential hypertension Gait instability Gastric paresis Hx of Escherichia coli septicemia Hyperlipidemia Muscle weakness Obesity, morbid, BMI 40.0-49.9 Peripheral neuropathy Vitamin D deficiency Family History Family History Other Adopted Family history: reviewed and not pertinent Surgical History Surgical History Hx of section Hx of tooth extraction Social History Social History Household Members: Adopted Family Housing: Unknown / Unable to assess Alcohol intake: never Patient Tobacco Use Status: Former Tobacco user Second Hand Smoke Exposure: No service: No Current occupational status: disabled Gender identity: Female Meds Allergies Allergy/AdvReac Type Severity Reaction Status Date / Time latex Allergy Unknown rash Verified 11/14/21 00:57 metoclopramide [From AdvReac Unknown INTERACTS Verified 11/14/21 00:57 REGLAN] W/ SEROQUEL Active Medications: Current Medications Acetaminophen (Acetaminophen 325 Mg Tablet) 650 mg PO Q6H PRN PRN Reason: Pain, Mild (Pain Scale 1-3) Last Admin: 12/03/21 16:16 Dose: 650 mg Documented by: Benzonatate (Benzonatate 100 Mg Capsule) 100 mg PO TID [facility] Last Admin: 12/10/21 10:11 Dose: Not Given Documented by: Bupropion HCl (Bupropion Hcl Xl 150 Mg Tab.Er.24h) 150 mg PO DAILY [facility] Last Admin: 12/10/21 10:11 Dose: Not Given Documented by: Dextrose (Dextrose 50 % 25 Gm/50 Ml Syringe) 25 gm IVPUSH Q15M PRN; Protocol PRN Reason: per Hypoglycemia Standing Ord. Enoxaparin Sodium (Enoxaparin Sodium 40 Mg/0.4 Ml Syringe) 40 mg SUBCUT Q24H [facility] Last Admin: 12/09/21 18:15 Dose: 40 mg Documented by: Ferrous Sulfate (Ferrous Sulfate 324 Mg Tablet.Dr) 324 mg PO BID [facility] Last Admin: 12/10/21 10:11 Dose: Not Given Documented by: Glucose (Glucose Gel 15 Gm Gel..Gram.) 15 gm PO Q15M PRN; Protocol PRN Reason: per Hypoglycemia Standing Ord. Guaifenesin (Guaifenesin La 600 Mg Tab.Er.12h) 600 mg PO BID [facility] Last Admin: 12/10/21 10:11 Dose: Not Given Documented by: Haloperidol Lactate (Haloperidol Lactate 5 Mg/Ml Vial) 0.5 mg IVPUSH Q6H PRN PRN Reason: anxiety/restlessness Last Admin: 12/09/21 16:08 Dose: 0.5 mg Documented by: Levetiracetam (Keppra) 500 mg in 100 mls @ 400 mls/hr IV Q12H [facility] Last Infusion: 12/10/21 10:23 Dose: Infused Documented by: Folic Acid 1 mg/ Sodium (Chloride) 50.2 mls @ 100.4 mls/hr IV DAILY [facility] Last Infusion: 12/09/21 17:31 Dose: Infused Documented by: Dextrose (D5w) 1,000 mls @ 125 mls/hr IVCONT .Q8H [facility] Last Admin: 12/10/21 09:48 Dose: 125 mls/hr Documented by: Insulin Glargine (Insulin Glargine,Hum.Rec.Anlog 100 Unit/Ml 10 Ml Vial) 14 unit SUBCUT BEDTIME [facility] Last Admin: 12/09/21 21:36 Dose: Not Given Documented by: Insulin Human Lispro (Insulin Lispro 100 Unit/Ml 3 Ml Vial) 0 unit SUBCUT QIDACHS [facility]; Protocol Last Admin: 12/10/21 09:46 Dose: 2 unit Documented by: Levothyroxine Sodium (Levothyroxine Sodium 75 Mcg Tablet) 75 mcg PO DAILY@0600 [facility] Last Admin: 12/10/21 05:57 Dose: Not Given Documented by: Magnesium Oxide (Magnesium Oxide 400 Mg Tablet) 400 mg PO DAILY [facility] Last Admin: 12/10/21 10:11 Dose: Not Given Documented by: Melatonin (Melatonin 3 Mg Tablet) 6 mg PO BEDTIME [facility] Last Admin: 12/09/21 21:41 Dose: Not Given Documented by: Multivitamins/Vitamin C (Multivitamin Tablet) 1 tab PO DAILY [facility] Last Admin: 12/10/21 10:11 Dose: Not Given Documented by: Omeprazole (Omeprazole 20 Mg Capsule.) 20 mg PO DAILY@0630 [facility] Last Admin: 12/10/21 05:57 Dose: Not Given Documented by: Ondansetron HCl (Ondansetron Hcl 4 Mg/2 Ml Vial) 4 mg IVPUSH Q8H PRN PRN Reason: Nausea and Vomiting Oxcarbazepine (Oxcarbazepine 150 Mg Tablet) 450 mg PO BID [facility] Last Admin: 12/10/21 10:12 Dose: Not Given Documented by: Pharmacy Consult (Consult Rx Perform Med Rec) 1 each MISCELLANE ONCE PRN PRN Reason: Consult order Pravastatin Sodium (Pravastatin Sodium 20 Mg Tablet) 20 mg PO BEDTIME [facility] Last Admin: 12/09/21 21:41 Dose: Not Given Documented by: Pregabalin (Pregabalin 150 Mg Capsule) 150 mg PO BID [facility] Last Admin: 12/10/21 10:12 Dose: Not Given Documented by: Quetiapine Fumarate (Quetiapine Fumarate 400 Mg Tablet) 400 mg PO BEDTIME [facility] Last Admin: 12/09/21 21:41 Dose: Not Given Documented by: Quetiapine Fumarate (Quetiapine Fumarate 200 Mg Tablet) 200 mg PO BEDTIME [facility] Last Admin: 12/09/21 21:42 Dose: Not Given Documented by: Sodium Chloride (0.9 % Sodium Chloride Flush 3 Ml Syringe) 3 ml IVFLUSH QSHIFT [facility] Last Admin: 12/10/21 09:46 Dose: 3 ml Documented by: Thiamine HCl (Thiamine Hcl 100 Mg Tablet) 100 mg PO DAILY [facility] Last Admin: 12/10/21 10:12 Dose: Not Given Documented by: Trazodone HCl (Trazodone Hcl 100 Mg Tablet) 100 mg PO BEDTIME [facility] Last Admin: 12/09/21 21:42 Dose: Not Given Documented by: Home Medications Medication Instructions Recorded Confirmed Last Taken Type bupropion HCl 100 100 mg PO QAM 11/30/20 11/29/21 11/28/21 History mg tablet,12 hr sustained-release trazodone 100 mg 100 mg PO 11/30/20 11/29/21 11/28/21 History tablet BEDTIME cranberry 400 mg 450 mg PO DAILY 03/22/21 11/29/21 11/28/21 History capsule cap melatonin 3 mg 6 mg PO DAILY 03/22/21 11/29/21 11/28/21 History tablet multivitamin 1 tab PO DAILY 03/22/21 11/29/21 11/28/21 History pregabalin 300 mg 300 mg PO BID 05/10/21 11/29/21 11/28/21 History capsule cap thiamine HCl 100 mg PO DAILY 06/09/21 11/29/21 11/28/21 History (vitamin B1) 100 mg tablet rituximab 10 10 mg IV 08/11/21 11/29/21 Unknown History mg/mL [id number] concentrate,intra venous oxcarbazepine 150 450 mg PO BID 08/18/21 11/29/21 11/28/21 History mg tablet tab immune 0 ml IV Q4W 10/11/21 11/29/21 09/27/21 History globulin,gamma(Ig G)slra 10 % intravenous solution cholecalciferol 1,250 mcg PO MO 10/16/21 11/29/21 11/28/21 History (vitamin D3) 1,250 mcg (50,000 unit) capsule chlorhexidine 15 ml PO BID 11/29/21 11/29/21 11/28/21 History gluconate 0.12 % mouthwash quetiapine 200 mg 1 tab PO BEDTIME 11/29/21 11/29/21 11/28/21 History tablet quetiapine 400 mg 1 tab PO BEDTIME 11/29/21 11/29/21 11/28/21 History tablet Physical Exam Verdana 4l Vital Signs: Verdana 4d Verdana 4d Vital Signs: Verdana 4d Verdana 4Bd Last Vital Signs Verdana 4d Beam Doffer New 4d Beam Doffer New 4d Temp 98.6 F 12/10/21 04:00 Beam Doffer New 4d Pulse 125 H 12/10/21 07:29 Beam Doffer New 4d Resp 19 12/10/21 07:29 BP 142/92 H 12/10/21 07:29 Pulse Ox 95 12/10/21 07:29 Oxygen Flow Rate 4 11/29/21 11:52 BMI result Body Mass Index 43.0 Neuro: Other: Seem to be sleeping and lightly morning. A sitter was sitting next to her who stated that she just had calmed down and was quite agitated and shouting for long time. She did not communicate with verbal language. Eyes were closed and even using significant force I could barely open them. She was resisting. I could not visualize her pupils. Eyes were midline. Face seemed to be symmetrical. With pain she would moan. She was spontaneously moving her extremities. Deep tendon reflexes were absent with flexor plantars. Trophic skin changes were noted in feet and forelegs. When I used her own hand and brought that close to her face like I was going to hit her, she resisted and did not let me do it. Results Labs CBC & Chem 7: 12/10/21 08:04 12/10/21 08:04 Labs: Short CBC 12/10/21 Range/Units 08:04 WBC 13.9 H (4.8-10.8) X10*3/uL Hgb 14.7 (12.0-16.0) g/dl Hct 45.1 (37.0-47.0) % Plt Count 608 H D (160-400) X10*3/uL BMP 12/09/21 12/10/21 15:49 08:04 Sodium 151 H 157 H Potassium 3.4 3.6 Chloride 119 H 124 H Carbon Dioxide 16 L 15 L BUN 22 H 29 H Creatinine 0.87 1.26 Calcium 9.5 10.1 D Microbiology Microbiology Results: Microbiology 12/04/21 11:43 Blood - Venous Blood Culture - Final No growth after 5 days. 12/04/21 11:43 Blood - Venous Blood Culture - Final No growth after 5 days. 11/29/21 14:01 Blood - Venous Blood Culture - Final No growth after 5 days. 11/29/21 13:51 Blood - Venous Blood Culture - Final No growth after 5 days. 11/29/21 Unknown Urine clean catch - Urine ohara top Urine Culture - Final Assessment and Plan (1) Encephalopathy, metabolic: Status: Acute 31 years old woman with complex underlying neuropsychiatric history with ten tative diagnosis of autoimmune polyneuropathy being treated with Rituxan and monthly IVIG. He followed neurologist at [facility]. She has underlying history of bipolar disorder and medicine for that were recently held and she was admitted in hospital with COVID infection and its complications. After treatment for COVID she was noted to be in altered mental status. Her examination at this time was suggestive of encephalopathy with quite high sodium level. There was also an element of behavioral pathology in her presentation and examination. Her present neurological condition can be explained based upon metabolic toxic encephalopathy and psychiatric disease. Previously she had abnormalities on her brain MRI in 1 could suspect similar pathology again. For that I would recommend a noncontrast MRI of brain when feasible. More urgent matter is to correct her metabolic numbers and restart her psychiatric medications. According to her previous notes, she has been taking gabapentin and oxcarbazepine for neuropathic pain. Both can be restarted as oxcarbazepine might also be helping for behavior. I do not see an urgent need for IVIG or Rituxan or more steroids. Procedures Date of Service Date of Service: 12/10/21
[2021-12-10 11:19] LABS: Glucose, Whole Blood 157 mg/dL (60-115)
[2021-12-10] MEDS: Haloperidol Lactate 5 MG/ML VIAL 2 MG IM (11:46)
[2021-12-10 12:34] LABS: Anion Gap 23 (12-20); Blood Urea Nitrogen 31 mg/dL (9-16); Calcium 10.1 mg/dL (8.4-10.2); Carbon Dioxide 14 mmol/L (22-29); Chloride 125 mmol/L (96-108); Creatinine Clr Calc Pharmacy 57.1; Estimated Glomerular Filt Rate 42; Glucose Random 167 mg/dL (60-115); Potassium 3.8 mmol/L (3.3-5.1); Sodium 158 mmol/L (135-145)
[2021-12-10 12:39] LABS: Lactic Acid 3.6 mmol/L (0.5-2.0)
[2021-12-10] MEDS: Haloperidol Lactate 5 MG/ML VIAL IVPUSH (12:54)
--- NOTE | 2021-12-10 13:17 | P.PNNP_ITS ---
Subjective Subjective Date of Service: 12/10/21 Interval history: Physical Exam Verdana 4l Vital Signs: Verdana 4d Verdana 4d Vital Signs: Verdana 4d Verdana 4Bd Last Vital Signs Verdana 4d Campaign Director New 4d Campaign Director New 4d Temp 100.9 F H 12/10/21 11:25 Campaign Director New 4d Pulse 140 H 12/10/21 11:25 Campaign Director New 4d Resp 18 12/10/21 11:25 BP 135/86 12/10/21 11:25 Pulse Ox 93 12/10/21 11:25 Oxygen Flow Rate 4 11/29/21 11:52 BMI result Body Mass Index 43.0 Const: Other: General - alert with stimulation appears anxious and disoriented not in respiratory distress Cardiovascular - S1S2, tachycardic Lungs - no distress, chest wall moving common Abdomen - soft, non-tender, no rebound or guarding Extremities - no edema bilaterally Neuro - awake and alert, bilateral lower extremity weakness, altered cognition with decreased responses and inability to verbalize her needs or complaints General: cooperative HENMT: Head: Yes normal to inspection Ears: hearing grossly normal bilaterally Mouth: Normal oral and palatal mucosa present Resp: Effort & Inspection: normal respiratory effort Cardio: Rate: regular rate Rhythm: regular rhythm GI: Palpation (GI): nontender Neuro: Other: Seem to be sleeping and lightly morning. A sitter was sitting next to her who stated that she just had calmed down and was quite agitated and shouting for long time. She did not communicate with verbal language. Eyes were closed and even using significant force I could barely open them. She was resisting. I could not visualize her pupils. Eyes were midline. Face seemed to be symmetrical. With pain she would moan. She was spontaneously moving her extremities. Deep tendon reflexes were absent with flexor plantars. Trophic skin changes were noted in feet and forelegs. When I used her own hand and brought that close to her face like I was going to hit her, she resisted and did not let me do it. Extrem: General: Yes normal to inspection Objective Data Labs CBC & Chem 7: 12/10/21 08:04 12/10/21 08:04 Labs: Laboratory Results - last 24 hr 12/09/21 12/09/21 12/09/21 15:49 16:38 21:04 WBC RBC Hgb Hct MCV MCH MCHC RDW Plt Count MPV Absolute Nucleated RBC Nucleated RBC % (auto) Sodium 151 H Potassium 3.4 Chloride 119 H Carbon Dioxide 16 L Anion Gap 19 BUN 22 H Creatinine 0.87 Estim Creat Clear Calc 94.6 Estimated GFR > 60 POC Glucose 156 H 156 H Random Glucose 161 H Lactic Acid Calcium 9.5 12/10/21 12/10/21 12/10/21 07:31 08:04 08:04 WBC 13.9 H RBC 5.28 Hgb 14.7 Hct 45.1 MCV 85.4 MCH 27.8 MCHC 32.6 RDW 14.6 Plt Count 608 H D MPV 10.6 Absolute Nucleated RBC 0.000 Nucleated RBC % (auto) 0.0 Sodium 157 H Potassium 3.6 Chloride 124 H Carbon Dioxide 15 L Anion Gap 22 H BUN 29 H Creatinine 1.26 Estim Creat Clear Calc 65.3 Estimated GFR 49 POC Glucose 172 H Random Glucose 165 H Lactic Acid Calcium 10.1 D 12/10/21 12/10/21 12/10/21 08:04 11:14 11:53 WBC RBC Hgb Hct MCV MCH MCHC RDW Plt Count MPV Absolute Nucleated RBC Nucleated RBC % (auto) Sodium 158 H Potassium 3.8 Chloride 125 H Carbon Dioxide 14 L Anion Gap 23 H BUN 31 H Creatinine 1.44 H Estim Creat Clear Calc 57.1 Estimated GFR 42 POC Glucose 157 H Random Glucose 167 H Lactic Acid 3.6 H* Calcium 10.1 Microbiology Microbiology Results: Microbiology 12/04/21 11:43 Blood - Venous Blood Culture - Final No growth after 5 days. 12/04/21 11:43 Blood - Venous Blood Culture - Final No growth after 5 days. 11/29/21 14:01 Blood - Venous Blood Culture - Final No growth after 5 days. 11/29/21 13:51 Blood - Venous Blood Culture - Final No growth after 5 days. 11/29/21 Unknown Urine clean catch - Urine [facility] top Urine Culture - Final Procedures Date of Service Date of Service: 12/10/21 Assessment & Plan Assessment and plan (1) Hypernatremia: Status: Acute (2) Encephalopathy, metabolic: Status: Acute (3) Fever: Status: Acute Plan 31 yo F with multiple medical problems who was tested positive for COVID on 11/23 (symptomatic 1 week before then) who is admitted for COVID pneumonia causing hypoxia. Metabolic encephalopathy Asking for help but unable to verbalize any meaningful sentences Denies pain Refused to take p.o. medications for the last 2-3 days including trazodone, Seroquel, Lyrica and oxcarbazepine Could be related to steroid therapy as well , discontinue Concern for possible seizure activity, to start Keppra Get psychiatry team evaluation Fever Could be secondary to infection, pneumonitis To do blood culture, urinalysis, chest x-ray Check lactic acid Consider lumbar puncture Hold on antibiotics until source of infection can be identified HyperNatremia Sodium of 157 need aggressive free water replacement Hypokalemia resolved, Time Spent With Patient Time: Total time spent is greater than 50% in coordination of care (as documented) at patient's floor/unit and/or counseling patient: Progress Note: Quality Stroke Does the patient have a stroke diagnosis?: No
[2021-12-10] MEDS: diphenhydrAMINE HCL 50 MG/ML VIAL 25 MG IVPUSH (13:37)
[2021-12-10 14:04] LABS: Reflex Lactate? Lactic Acid Added
[2021-12-10] MEDS: Piperacillin Sodium/Tazobactam 3.375 GM in 0.9 % Sodium Chloride 50 ML IV ×2 (15:10→18:03)
--- NOTE | 2021-12-10 15:19 | HO.PSYCHPN ---
Subjective Subjective Date of Service: 12/10/21 Reason For Visit: covid Interim History: Patient's MS has worsened over past few days. She is now non-responsive. She is restrained. She was seen by neurology that mention the possibility of behavioral component to her symptoms. Patient was seen in her room. She was laying in bed. She was non responding to this examiner. She was in soft restraints. She had come back from MRI. She was non-verbal. Spontaneous breathing. Review of Systems Review of Systems Yes Unobtainable due to mental condition and Unobtainable due to mental status Mental Status Exam Mental Status Exam Narrative: Could not be performed due to patient's mental status other than appearance. Patient Appearance: Perspiring Level of Consciousness: Obtunded Patient Cognition Impaired: Yes Ability to Follow Directions: Poor Speech Pattern: No Speech Diagnostics Vital Signs (24Hr): Vital Signs - 24 hr 12/09/21 15:36 12/09/21 21:35 12/09/21 23:56 Temperature 97.6 F 98.1 F 98.5 F Pulse Rate 120 H 136 H 94 Respiratory Rate 19 20 20 Blood Pressure 147/85 H 136/73 Pulse Oximetry 89 L 91 L 92 12/10/21 04:00 12/10/21 07:29 12/10/21 11:25 Temperature 98.6 F 100.9 F H Pulse Rate 120 H 125 H 140 H Respiratory Rate 17 19 18 Blood Pressure 128/89 142/92 H 135/86 Pulse Oximetry 95 95 93 BMI result Body Mass Index 43.0 Labs Results: 12/10/21 08:04 12/10/21 08:04 Labs: Laboratory Results - last 48 hr 12/08/21 12/08/21 12/09/21 15:50 19:58 06:04 WBC 6.7 RBC 5.09 Hgb 14.1 Hct 43.6 MCV 85.7 MCH 27.7 MCHC 32.3 RDW 14.5 Plt Count 469 H D MPV 10.8 Absolute Nucleated RBC 0.000 Nucleated RBC % (auto) 0.0 Sodium Potassium Chloride Carbon Dioxide Anion Gap BUN Creatinine Estim Creat Clear Calc Estimated GFR POC Glucose 179 H 150 H Random Glucose Lactic Acid Calcium Total Bilirubin Direct Bilirubin AST ALT Alkaline Phosphatase Lactate Dehydrogenase C-Reactive Protein Total Protein Albumin 12/09/21 12/09/21 12/09/21 06:04 07:32 11:03 WBC RBC Hgb Hct MCV MCH MCHC RDW Plt Count MPV Absolute Nucleated RBC Nucleated RBC % (auto) Sodium 149 H Potassium 3.6 Chloride 116 H Carbon Dioxide 18 L Anion Gap 19 BUN 21 H Creatinine 0.82 Estim Creat Clear Calc 100.3 Estimated GFR > 60 POC Glucose 145 H 158 H Random Glucose 148 H Lactic Acid Calcium 9.7 Total Bilirubin 0.5 Direct Bilirubin 0.3 AST 50 H ALT 54 H Alkaline Phosphatase 161 H Lactate Dehydrogenase 530 H C-Reactive Protein 3.75 H Total Protein 7.2 Albumin 4.1 12/09/21 12/09/21 12/09/21 15:49 16:38 21:04 WBC RBC Hgb Hct MCV MCH MCHC RDW Plt Count MPV Absolute Nucleated RBC Nucleated RBC % (auto) Sodium 151 H Potassium 3.4 Chloride 119 H Carbon Dioxide 16 L Anion Gap 19 BUN 22 H Creatinine 0.87 Estim Creat Clear Calc 94.6 Estimated GFR > 60 POC Glucose 156 H 156 H Random Glucose 161 H Lactic Acid Calcium 9.5 Total Bilirubin Direct Bilirubin AST ALT Alkaline Phosphatase Lactate Dehydrogenase C-Reactive Protein Total Protein Albumin 12/10/21 12/10/21 12/10/21 07:31 08:04 08:04 WBC 13.9 H RBC 5.28 Hgb 14.7 Hct 45.1 MCV 85.4 MCH 27.8 MCHC 32.6 RDW 14.6 Plt Count 608 H D MPV 10.6 Absolute Nucleated RBC 0.000 Nucleated RBC % (auto) 0.0 Sodium 157 H Potassium 3.6 Chloride 124 H Carbon Dioxide 15 L Anion Gap 22 H BUN 29 H Creatinine 1.26 Estim Creat Clear Calc 65.3 Estimated GFR 49 POC Glucose 172 H Random Glucose 165 H Lactic Acid Calcium 10.1 D Total Bilirubin Direct Bilirubin AST ALT Alkaline Phosphatase Lactate Dehydrogenase C-Reactive Protein Total Protein Albumin 12/10/21 12/10/21 12/10/21 08:04 11:14 11:53 WBC RBC Hgb Hct MCV MCH MCHC RDW Plt Count MPV Absolute Nucleated RBC Nucleated RBC % (auto) Sodium 158 H Potassium 3.8 Chloride 125 H Carbon Dioxide 14 L Anion Gap 23 H BUN 31 H Creatinine 1.44 H Estim Creat Clear Calc 57.1 Estimated GFR 42 POC Glucose 157 H Random Glucose 167 H Lactic Acid 3.6 H* Calcium 10.1 Total Bilirubin Direct Bilirubin AST ALT Alkaline Phosphatase Lactate Dehydrogenase C-Reactive Protein Total Protein Albumin Imaging Radiology Impressions: ITS Impressions Chest X-Ray 11/29/21 11:47 IMPRESSION: Low lung volumes and new bilateral infiltrates. Chest CTA 11/30/21 14:13 IMPRESSION: Limited exam due to artifact from respiratory motion. No large or central pulmonary embolism. Low lung volumes and bilateral groundglass attenuation infiltrates compatible with Covid infection. Probable hepatosplenomegaly. VTE: negative KUB X-Ray 12/01/21 12:49 IMPRESSION: No evidence of bowel obstruction. Markedly distended bladder. Chest X-Ray 12/04/21 08:32 IMPRESSION: Low lung volumes and bilateral infiltrates similar to recent exams. Chest X-Ray 12/10/21 11:50 IMPRESSION: Hypoexpanded lungs without acute process. Chest X-Ray 12/10/21 12:54 IMPRESSION: Enteric tube in expected position. Medications Medications Current Medications Acetaminophen (Acetaminophen 325 Mg Tablet) 650 mg PO Q6H PRN PRN Reason: Pain, Mild (Pain Scale 1-3) Last Admin: 12/03/21 16:16 Dose: 650 mg Documented by: Benzonatate (Benzonatate 100 Mg Capsule) 100 mg PO TID [facility] Last Admin: 12/09/21 21:37 Dose: Not Given Documented by: Bupropion HCl (Bupropion Hcl Xl 150 Mg Tab.Er.24h) 150 mg PO DAILY [facility] Last Admin: 12/09/21 10:08 Dose: Not Given Documented by: Dextrose (Dextrose 50 % 25 Gm/50 Ml Syringe) 25 gm IVPUSH Q15M PRN; Protocol PRN Reason: per Hypoglycemia Standing Ord. Enoxaparin Sodium (Enoxaparin Sodium 40 Mg/0.4 Ml Syringe) 40 mg SUBCUT Q24H [facility] Last Admin: 12/09/21 18:15 Dose: 40 mg Documented by: Ferrous Sulfate (Ferrous Sulfate 324 Mg Tablet.Dr) 324 mg PO BID [facility] Last Admin: 12/09/21 21:40 Dose: Not Given Documented by: Glucose (Glucose Gel 15 Gm Gel..Gram.) 15 gm PO Q15M PRN; Protocol PRN Reason: per Hypoglycemia Standing Ord. Guaifenesin (Guaifenesin La 600 Mg Tab.Er.12h) 600 mg PO BID [facility] Last Admin: 12/09/21 21:41 Dose: Not Given Documented by: Haloperidol Lactate (Haloperidol Lactate 5 Mg/Ml Vial) 0.5 mg IVPUSH Q6H PRN PRN Reason: anxiety/restlessness Last Admin: 12/10/21 12:54 Dose: 0.5 mg Documented by: Haloperidol Lactate (Haloperidol Lactate 5 Mg/Ml Vial) 2.5 mg IVPUSH ONCE PRN PRN Reason: anxiety/restlessness Folic Acid 1 mg/ Sodium (Chloride) 50.2 mls @ 100.4 mls/hr IV DAILY [facility] Last Infusion: 12/09/21 17:31 Dose: Infused Documented by: Dextrose (D5w) 1,000 mls @ 200 mls/hr IVCONT .Q5H [facility] Last Admin: 12/10/21 09:48 Dose: 125 mls/hr Documented by: Piperacillin Sod/Tazobactam (Sod 3.375 gm/ Sodium Chloride) 50 mls @ 100 mls/hr IV Q6H [facility] Insulin Glargine (Insulin Glargine,Hum.Rec.Anlog 100 Unit/Ml 10 Ml Vial) 14 unit SUBCUT BEDTIME [facility] Last Admin: 12/09/21 21:36 Dose: Not Given Documented by: Insulin Human Lispro (Insulin Lispro 100 Unit/Ml 3 Ml Vial) 0 unit SUBCUT QIDACHS [facility]; Protocol Last Admin: 12/10/21 11:52 Dose: Not Given Documented by: Levothyroxine Sodium (Levothyroxine Sodium 75 Mcg Tablet) 75 mcg PO DAILY@0600 [facility] Last Admin: 12/10/21 05:57 Dose: Not Given Documented by: Magnesium Oxide (Magnesium Oxide 400 Mg Tablet) 400 mg PO DAILY [facility] Last Admin: 12/09/21 10:09 Dose: Not Given Documented by: Melatonin (Melatonin 3 Mg Tablet) 6 mg PO BEDTIME [facility] Last Admin: 12/09/21 21:41 Dose: Not Given Documented by: Multivitamins/Vitamin C (Multivitamin Tablet) 1 tab PO DAILY [facility] Last Admin: 12/09/21 10:09 Dose: Not Given Documented by: Omeprazole (Omeprazole 20 Mg Capsule.Dr) 20 mg PO DAILY@0630 [facility] Last Admin: 12/10/21 05:57 Dose: Not Given Documented by: Ondansetron HCl (Ondansetron Hcl 4 Mg/2 Ml Vial) 4 mg IVPUSH Q8H PRN PRN Reason: Nausea and Vomiting Oxcarbazepine (Oxcarbazepine 150 Mg Tablet) 450 mg PO BID [facility] Last Admin: 12/09/21 21:41 Dose: Not Given Documented by: Pharmacy Consult (Consult Rx Perform Med Rec) 1 each MISCELLANE ONCE PRN PRN Reason: Consult order Pravastatin Sodium (Pravastatin Sodium 20 Mg Tablet) 20 mg PO BEDTIME [facility] Last Admin: 12/09/21 21:41 Dose: Not Given Documented by: Pregabalin (Pregabalin 150 Mg Capsule) 150 mg PO BID [facility] Last Admin: 12/09/21 21:41 Dose: Not Given Documented by: Quetiapine Fumarate (Quetiapine Fumarate 400 Mg Tablet) 400 mg PO BEDTIME [facility] Last Admin: 12/09/21 21:41 Dose: Not Given Documented by: Quetiapine Fumarate (Quetiapine Fumarate 200 Mg Tablet) 200 mg PO BEDTIME [facility] Last Admin: 12/09/21 21:42 Dose: Not Given Documented by: Sodium Chloride (0.9 % Sodium Chloride Flush 3 Ml Syringe) 3 ml IVFLUSH QSHIFT [facility] Last Admin: 12/10/21 09:46 Dose: 3 ml Documented by: Thiamine HCl (Thiamine Hcl 100 Mg Tablet) 100 mg PO DAILY [facility] Last Admin: 12/09/21 10:09 Dose: Not Given Documented by: Trazodone HCl (Trazodone Hcl 100 Mg Tablet) 100 mg PO BEDTIME [facility] Last Admin: 12/09/21 21:42 Dose: Not Given Documented by: Allergies Allergies Allergy/AdvReac Type Severity Reaction Status Date / Time latex Allergy Unknown rash Verified 11/14/21 00:57 metoclopramide [From REGLAN] AdvReac Unknown INTERACTS Verified 11/14/21 00:57 W/ SEROQUEL Assessment & Plan Assessment & Plan (1) Hypernatremia: Status: Acute Code(s): E87.0 - Hyperosmolality and hypernatremia (2) Encephalopathy, metabolic: Status: Acute Code(s): G93.41 - Metabolic encephalopathy (3) Fever: Qualifiers: Fever type: unspecified Qualified Code(s): R50.9 - Fever, unspecified Status: Acute Code(s): R50.9 - Fever, unspecified Plan 31 yo F with multiple medical problems who was tested positive for COVID on 11/23 (symptomatic 1 week before then) who is admitted for COVID pneumonia causing hypoxia. Metabolic encephalopathy Asking for help but unable to verbalize any meaningful sentences Refused to take p.o. medications for the last 2-3 days including trazodone, Seroquel, Lyrica and oxcarbazepine Could be related to steroid therapy as well , discontinue Concern for possible seizure activity, to start Keppra Patient has multiple reasons for her deterirating mental status. She has electrolyte abnormalities and worsening hypernatremia, she has an underlying autoimmune brain disorder, she has been on steroids, she has hypoxemia and COVID and has also been off her psychiatric medications. However, given the objective signs of illness including her laboratory work, it is unlikely that being off the psychotropics is responsible for her mental status change. Would recommend: - Review Brain MRI - Recommend LP. - Would check CPK to RO NMS/Serotonin syndrome as well. Fever Could be secondary to infection, pneumonitis To do blood culture, urinalysis, chest x-ray Check lactic acid Consider lumbar puncture Hold on antibiotics until source of infection can be identified HyperNatremia Sodium of 157 need aggressive free water replacement Hypokalemia resolved, I spent minutes with the patient and/or on the patient floor today, greater than?50% of which was spent counseling/coordinating care. Reason for contiued inpatient stay Substantial Risk for: med/psych decompensation
[2021-12-10] MEDS: guaiFENesin LA 600 MG TAB.ER.12H PO (15:20)
[2021-12-10] MEDS: Thiamine HCL 100 MG TABLET PO (15:20)
[2021-12-10] MEDS: buPROPion HCl XL 150 MG TAB.ER.24H PO (15:20)
[2021-12-10] MEDS: OXcarbazepine 150 MG TABLET 450 MG PO (15:20)
[2021-12-10] MEDS: Multivitamin TABLET 1 TAB PO (15:21)
[2021-12-10] MEDS: Ferrous Sulfate 324 MG TABLET.DR PO (15:21)
[2021-12-10] MEDS: Magnesium Oxide 400 MG TABLET PO (15:21)
[2021-12-10] MEDS: Pregabalin 150 MG CAPSULE PO (15:22)
[2021-12-10] MEDS: Dextrose 5 % 1,000 ML 200 ML IVCONT (15:25)
[2021-12-10 15:53] LABS: ~Lactic Acid-LAB USE ONLY 3.1 mmol/L (0.5-2.0)
[2021-12-10 16:30] LABS: Glucose, Whole Blood 182 mg/dL (60-115)
[2021-12-10 16:40] LABS: Blood Urea Nitrogen 37 mg/dL (9-16); Calcium 10.4 mg/dL (8.4-10.2); Creatinine Clr Calc Pharmacy 42.2; Estimated Glomerular Filt Rate 30; Glucose Random 197 mg/dL (60-115)
[2021-12-10 16:57] LABS: Anion Gap 26 (12-20); Carbon Dioxide 12 mmol/L (22-29); Chloride 126 mmol/L (96-108); Potassium 3.7 mmol/L (3.3-5.1); Sodium 160 mmol/L (135-145)
[2021-12-10 17:17] LABS: Reflex Lactate? 2 Y
[2021-12-10] MEDS: Enoxaparin Sodium 40 MG/0.4 ML SYRINGE SUBCUT (17:32)
[2021-12-10 18:12] LABS: ABG Base Excess -7.3 mmol/L; ABG HCO3 12 mmol/L (22-26); ABG pCO2 16 mmHg (32-45); ABG pCO2 TC 17 mmHg (32-45); ABG pH 7.49 (7.35-7.45); ABG pH TC 7.47 (7.35-7.45); ABG pO2 70 mmHg (83-108); ABG pO2 TC 74 (83-108)
[2021-12-10] MEDS: Sodium Bicarbonate 8.4% 100 MEQ in Dextrose 5 % 900 ML IV (18:56)
[2021-12-10 19:16] LABS: Appearance Urine CLOUDY; Color Urine DK YELLOW; Glucose Urine UA NEG (NEG); Leukocyte Esterase Urine 1+ (NEG); Nitrite Urine NEG (NEG); PH 5.5 (5.0-8.0); Specific Gravity - Urine >= 1.030 (1.005-1.025); UACC Culture Trigger YES; Urine Blood 3+ (NEG); Urine Ketones 15 MG/DL (NEG); Urine Protein 2+ MG/DL (NEG-TRACE)
[2021-12-10 19:23] LABS: Amorphous Sediment Urine TRACE /LPF; Bacteria Urine TRACE /LPF; Mucus Urine 3+ /LPF; Renal Epithelial Cells Urine 1+ /LPF; Squamous Epithelial Cell Urine 2+ /LPF
--- NOTE | 2021-12-10 20:32 | PC.NURSE ---
Pt was placed with sitter from night prior after squirming and pulling out multiple IV's. Pt was treated with Haldol overnight; which had no effects Pt has been LUZ neurologically today, vitals have been stable except for elevated Temp which she was given Tylenol for; later resolved.. Pt labs have been critically elevated and reported to MD for assessment. MRI was ordered ; however pt was too restless ; therfore was given 3x doses of Haldol and 1 dose of IV Benadryl which was somewhat effective for short period of time.NG tube was ordered and placed today to administer pt's meds. Pt was father was present at bedside and suggested that her demeanor is similar to when she first became ill 5x years ago. MD made Various labs and vitals per sepsis protocol were ordered and returned elevated; Nephrology, Psychiatry and the Sorting Livestock Worker were all consulted. It was determined pt needed to be transported to the ICU for further treatment and evaluation. Pt has orders for Q1HR flushes via NG- tube Report was given to the intake nurses.
[2021-12-10 20:52] LABS: ABG Refer to POC result
--- NOTE | 2021-12-10 23:11 | P.HPCC_ITS ---
[facility] Past Medical History Medical History Acquired hypothyroidism Bipolar disorder Blurred vision, bilateral Clinical decompensation Diabetes mellitus with hyperglycemia Elevated vitamin B12 level Esophagitis with gastritis Essential hypertension Gait instability Gastric paresis Hx of Escherichia coli septicemia Hyperlipidemia Muscle weakness Obesity, morbid, BMI 40.0-49.9 Peripheral neuropathy Vitamin D deficiency Family History Family History Other Adopted Family history: reviewed and not pertinent Surgical History Surgical History Hx of section Hx of tooth extraction Social History Social History Household Members: Adopted Family Housing: Unknown / Unable to assess Alcohol intake: never Patient Tobacco Use Status: Former Tobacco user Second Hand Smoke Exposure: No service: No Current occupational status: disabled Gender identity: Female Meds Allergies Allergy/AdvReac Type Severity Reaction Status Date / Time latex Allergy Unknown rash Verified 11/14/21 00:57 metoclopramide [From AdvReac Unknown INTERACTS Verified 11/14/21 00:57 REGLAN] W/ SEROQUEL Active Medications: Current Medications Acetaminophen (Acetaminophen 325 Mg Tablet) 650 mg PO Q6H PRN PRN Reason: Pain, Mild (Pain Scale 1-3) Last Admin: 12/03/21 16:16 Dose: 650 mg Documented by: Bupropion HCl (Bupropion Hcl Xl 150 Mg Tab.Er.24h) 150 mg PO DAILY [facility] [place] Last Admin: 12/10/21 15:20 Dose: 150 mg Documented by: Dextrose (Dextrose 50 % 25 Gm/50 Ml Syringe) 25 gm IVPUSH Q15M PRN; Protocol PRN Reason: per Hypoglycemia Standing Ord. Glucose (Glucose Gel 15 Gm Gel..Gram.) 15 gm PO Q15M PRN; Protocol PRN Reason: per Hypoglycemia Standing Ord. Haloperidol Lactate (Haloperidol Lactate 5 Mg/Ml Vial) 2 mg IVPUSH Q6H PRN PRN Reason: anxiety/restlessness Heparin Sodium (Porcine) (Heparin Sodium,Porcine 5,000 Unit/Ml Vial) 5,000 unit SUBCUT Q8H [facility] [place] Folic Acid 1 mg/ Sodium (Chloride) 50.2 mls @ 100.4 mls/hr IV DAILY [facility] [place] Last Infusion: 12/10/21 09:55 Dose: Infused Documented by: Sodium Bicarbonate 100 meq/ (Dextrose) 1,000 mls @ 100 mls/hr IV .Q10H [facility] [place] Last Admin: 12/10/21 18:56 Dose: 100 mls/hr Documented by: Propofol (Diprivan) 1,000 mg in 100 mls @ 0 mls/hr IVCONT .Q0M [facility] [place]; Protocol Piperacillin Sod/Tazobactam (Sod 3.375 gm/ Sodium Chloride) 50 mls @ 100 mls/hr IV Q8H [facility] [place] Insulin Glargine (Insulin Glargine,Hum.Rec.Anlog 100 Unit/Ml 10 Ml Vial) 14 unit SUBCUT BEDTIME [facility] [place] Last Admin: 12/09/21 21:36 Dose: Not Given Documented by: Insulin Human Lispro (Insulin Lispro 100 Unit/Ml 3 Ml Vial) 0 unit SUBCUT QIDACHS [facility] [place]; Protocol Last Admin: 12/10/21 17:32 Dose: Not Given Documented by: Levothyroxine Sodium (Levothyroxine Sodium 75 Mcg Tablet) 75 mcg PO DAILY@0600 [facility] [place] Last Admin: 12/10/21 05:57 Dose: Not Given Documented by: Magnesium Oxide (Magnesium Oxide 400 Mg Tablet) 400 mg NG-TUBE DAILY [facility] [place] Melatonin (Melatonin 3 Mg Tablet) 6 mg PO BEDTIME [facility] [place] Last Admin: 12/10/21 22:00 Dose: Not Given Documented by: Omeprazole (Omeprazole 20 Mg Capsule.Dr) 20 mg PO DAILY@0630 [facility] [place] Last Admin: 12/10/21 05:57 Dose: Not Given Documented by: Ondansetron HCl (Ondansetron Hcl 4 Mg/2 Ml Vial) 4 mg IVPUSH Q8H PRN PRN Reason: Nausea and Vomiting Oxcarbazepine (Oxcarbazepine 150 Mg Tablet) 450 mg NG-TUBE BID [facility] [place] Last Admin: 12/10/21 22:00 Dose: Not Given Documented by: Pharmacy Consult (Consult Rx Perform Med Rec) 1 each MISCELLANE ONCE PRN PRN Reason: Consult order Pravastatin Sodium (Pravastatin Sodium 20 Mg Tablet) 20 mg PO BEDTIME [facility] [place] Last Admin: 12/10/21 22:00 Dose: Not Given Documented by: Pregabalin (Pregabalin 150 Mg Capsule) 150 mg NG-TUBE BID [facility] [place] Quetiapine Fumarate (Quetiapine Fumarate 400 Mg Tablet) 400 mg NG-TUBE BEDTIME [facility] Quetiapine Fumarate (Quetiapine Fumarate 200 Mg Tablet) 200 mg NG-TUBE BEDTIME [facility] [place] Sodium Chloride (0.9 % Sodium Chloride Flush 3 Ml Syringe) 3 ml IVFLUSH QSHIFT [facility] [place] Last Admin: 12/10/21 16:12 Dose: Not Given Documented by: Thiamine HCl (Thiamine Hcl 100 Mg Tablet) 100 mg NG-TUBE DAILY [facility] [place] Home Medications Medication Instructions Recorded Confirmed Last Taken Type bupropion HCl 100 100 mg PO QAM 11/30/20 11/29/21 11/28/21 History mg tablet,12 hr sustained-release trazodone 100 mg 100 mg PO 11/30/20 11/29/21 11/28/21 History tablet BEDTIME cranberry 400 mg 450 mg PO DAILY 03/22/21 11/29/21 11/28/21 History capsule cap melatonin 3 mg 6 mg PO DAILY 03/22/21 11/29/21 11/28/21 History tablet multivitamin 1 tab PO DAILY 03/22/21 11/29/21 11/28/21 History pregabalin 300 mg 300 mg PO BID 05/10/21 11/29/21 11/28/21 History capsule cap thiamine HCl 100 mg PO DAILY 06/09/21 11/29/21 11/28/21 History (vitamin B1) 100 mg tablet rituximab 10 10 mg IV 08/11/21 11/29/21 Unknown History mg/mL [id number] concentrate,intra venous oxcarbazepine 150 450 mg PO BID 08/18/21 11/29/21 11/28/21 History mg tablet tab immune 0 ml IV Q4W 10/11/21 11/29/21 09/27/21 History globulin,gamma(Ig G)slra 10 % intravenous solution cholecalciferol 1,250 mcg PO MO 10/16/21 11/29/21 11/28/21 History (vitamin D3) 1,250 mcg (50,000 unit) capsule chlorhexidine 15 ml PO BID 11/29/21 11/29/21 11/28/21 History gluconate 0.12 % mouthwash quetiapine 200 mg 1 tab PO BEDTIME 11/29/21 11/29/21 11/28/21 History tablet quetiapine 400 mg 1 tab PO BEDTIME 11/29/21 11/29/21 11/28/21 History tablet Physical Exam Verdana 4l Vital Signs: Verdana 4d Verdana 4d Vital Signs: Verdana 4d Verdana 4Bd Last Vital Signs Verdana 4d [employer] Representative New 4d [employer] Sales Representative New 4d Temp 100.7 F H 12/10/21 19:59 [employer] Sales Representative New 4d Pulse 114 H 12/10/21 22:19 [employer] Representative New 4d Resp 20 12/10/21 22:19 BP 130/87 12/10/21 22:19 Pulse Ox 98 12/10/21 22:19 Oxygen Flow Rate 4 11/29/21 11:52 BMI result Body Mass Index 43.0 Results Labs CBC and Chem 7: 12/10/21 08:04 12/10/21 15:11 Labs: Laboratory Results - last 24 hr 12/10/21 12/10/21 12/10/21 07:31 08:04 08:04 MCV 85.4 MCH 27.8 MCHC 32.6 RDW 14.6 Plt Count 608 H D MPV 10.6 Absolute Nucleated RBC 0.000 Nucleated RBC % (auto) 0.0 O2 Saturation ABG pH at Pt Temp ABG pH (Temp Correct) ABG pCO2 at Pt Temp ABG pCO2 (Temp Corrct ABG pO2 at Pt Temp ABG pO2 (Temp Correct ABG HCO3 ABG Base Excess (Actual) Anion Gap 22 H Estim Creat Clear Calc 65.3 Estimated GFR 49 POC Glucose 172 H Random Glucose 165 H Lactic Acid Lactic Acid F/U @ 2Hr Calcium 10.1 D Total Creatine Kinase Urine Color Urine Appearance Urine pH Ur Specific [place] Urine Protein Urine Glucose (UA) Urine Ketones Urine Blood Urine Nitrite Ur Leukocyte Esterase Urine RBC Urine WBC Ur Squamous Epith Cells Ur Renal Epithelial Cell Amorphous Sediment Urine Bacteria Urine Mucus Urine Yeast 12/10/21 12/10/21 12/10/21 11:14 11:53 12:00 MCV MCH MCHC RDW Plt Count MPV Absolute Nucleated RBC Nucleated RBC % (auto) O2 Saturation ABG pH at Pt Temp ABG pH (Temp Correct) ABG pCO2 at Pt Temp ABG pCO2 (Temp Corrct ABG pO2 at Pt Temp ABG pO2 (Temp Correct ABG HCO3 ABG Base Excess (Actual) Anion Gap 23 H Estim Creat Clear Calc 57.1 Estimated GFR 42 POC Glucose 157 H Random Glucose 167 H Lactic Acid 3.6 H* Lactic Acid F/U @ 2Hr Calcium 10.1 Total Creatine Kinase Urine Color Urine Appearance Urine pH Ur Specific [place] Urine Protein Urine Glucose (UA) Urine Ketones Urine Blood Urine Nitrite Ur Leukocyte Esterase Urine RBC Urine WBC Ur Squamous Epith Cells Ur Renal Epithelial Cell Amorphous Sediment Urine Bacteria Urine Mucus Urine Yeast 12/10/21 12/10/21 12/10/21 15:11 15:11 16:24 MCV MCH MCHC RDW Plt Count MPV Absolute Nucleated RBC Nucleated RBC % (auto) O2 Saturation ABG pH at Pt Temp ABG pH (Temp Correct) ABG pCO2 at Pt Temp ABG pCO2 (Temp Corrct ABG pO2 at Pt Temp ABG pO2 (Temp Correct ABG HCO3 ABG Base Excess (Actual) Anion Gap 26 H Estim Creat Clear Calc 42.2 Estimated GFR 30 POC Glucose 182 H Random Glucose 197 H Lactic Acid Lactic Acid F/U @ 2Hr 3.1 H* Calcium 10.4 H Total Creatine Kinase 415 H D Urine Color Urine Appearance Urine pH Ur Specific [place] Urine Protein Urine Glucose (UA) Urine Ketones Urine Blood Urine Nitrite Ur Leukocyte Esterase Urine RBC Urine WBC Ur Squamous Epith Cells Ur Renal Epithelial Cell Amorphous Sediment Urine Bacteria Urine Mucus Urine Yeast 12/10/21 12/10/21 12/10/21 18:06 18:53 18:53 MCV MCH MCHC RDW Plt Count MPV Absolute Nucleated RBC Nucleated RBC % (auto) O2 Saturation 94.0 ABG pH at Pt Temp 7.49 H ABG pH (Temp Correct) 7.47 H ABG pCO2 at Pt Temp 16 L* ABG pCO2 (Temp Corrct 17 L* ABG pO2 at Pt Temp 70 L ABG pO2 (Temp Correct 74 L ABG HCO3 12 L ABG Base Excess (Actual) -7.3 Anion Gap Cancelled Estim Creat Clear Calc Cancelled Estimated GFR Cancelled POC Glucose Random Glucose Cancelled Lactic Acid Lactic Acid F/U @ 2Hr Calcium Cancelled Total Creatine Kinase Urine Color DK YELLOW Urine Appearance CLOUDY Urine pH 5.5 Ur Specific [place] >= 1.030 H Urine Protein 2+ H Urine Glucose (UA) NEG Urine Ketones 15 Urine Blood 3+ H Urine Nitrite NEG Ur Leukocyte Esterase 1+ H Urine RBC 5-9 H Urine WBC 1-4 Ur Squamous Epith Cells 2+ Ur Renal Epithelial Cell 1+ Amorphous Sediment TRACE Urine Bacteria TRACE Urine Mucus 3+ Urine Yeast 3+ Imaging Radiologist's Impressions: Impressions Chest X-Ray 12/10/21 11:50 IMPRESSION: Hypoexpanded lungs without acute process. Chest X-Ray 12/10/21 12:54 IMPRESSION: Enteric tube in expected position. Brain MRI 12/10/21 14:36 IMPRESSION: 1. Suboptimal study due to patient motion artifact and habitus. 2. There are no acute bleeds or infarcts demonstrated on the available images. No masses are seen. The study redemonstrates abnormal FLAIR signal in the posterior thalami bilaterally, less extensive compared to the prior study.
--- NOTE | 2021-12-10 23:12 | W.PM.CCHP ---
Procedures Date of Service Date of Service: 12/10/21 Central Line Placement A quick time-out was made for clarification and proper patient identification, patient was positioned, landmarks were identified, US used to locate a large compressible IJ. The left neck was widely prepped and draped in a full sterile fashion. Ultrasound was used to locate again the left IJ, the vein was cannulated on the 1st pass with an 18 gauge thin needle, dark nonpulsatile blood return was obtained. The wire was threaded, a small incision was made at its base and dilator inserted. A triple-lumen central venous catheter was advanced into the vein up to the hub without problems, wired was removed. Ports had good blood return and flushed x3. The catheter was secured with 3 sutures at 3 sites, a Biopatch and dry sterile dressing were applied.Post procedure chest x-ray showed the line to be in good position without pneumothorax. No bleeding or complications noted.: Central Line Comments: After confirming placement of this catheter via x-ray, it was noted that he had bent in AU shape forming instead of going down into the right atrium, went up into the right subclavian. I discussed this with Dr. Morgan, decision was made to change the catheter by pulling back to the 10 cm sadie, clumping the hub; subsequently I used the brown line of the cath to place a new guide wire into it and guided into right atrium at which point an x-ray was taken for verification of placement, the old catheter was removed and a new 20 cm [place] catheter was advanced. Repeated x-ray shows good placement of the triple-lumen catheter tip. At this point there was no complications, no pneumothorax, no bleeding, additional 100 mg of propofol was given during the procedure for the patient was moving and bucking the vent despite of the propofol GTT sedation. Consent for Procedure: Emergent-no informed consent obtained Time out performed: Yes Sterile Technique Used: Yes Patient placed on monitor/pulse ox: Yes prep: mask, gown and gloves Central line prep: Chlorhexidine scrub Ultrasound used for placement: Yes Central line lumen inserted: triple Post procedure: sutured in place, good blood return, all ports aspirated, flushed, capped and sterile dressing applied Post procedure x-ray: tip of catheter in good position and no pneumothorax seen Patient tolerated procedure: well Complications: catheter malposition (As described above under comments)
--- NOTE | 2021-12-10 23:12 | W.PM.CCHP ---
Procedures Date of Service Date of Service: 12/10/21 Intubation Intubation Comments: The patient developed progressive tachypnea, fatigue, and somnolence; patient was preoxygenated, the above-mentioned medications were used for sedation and paralysis.? Using the GlideScope, the close was identified and using a 4.0 Blade, an ETT tube 7.5 was inserted via direct vision in a nontraumatic way.? Post intubation, breath sounds were equal and bilateral, CO2 test in show positive color change to yellow, SpO2 maintained.? The tube was secured at 24 cm at the upper lip. Patient tolerated the procedure well without complications.? Postop x-ray showed endotracheal tube approximately 3 cm above the zuleyka. Case was discussed in detail with Dr. Morgan.? He is aware of all the above as well as the plan of care for this patient. Consent for Procedure: Emergent-no informed consent obtained Time out performed: Yes Sedative: propofol Mg given: 100 Paralytic: rocuronium Mg given: 50 Laryngoscope: fiber optic video scope ET tube size: 7.5 ET tube uncuffed: Yes Tube secured depth (cm): 24 Tube secured location: lips Tube placement confirmation: visualized tube passing through cords, equal breath sounds bilaterally, no breath sounds over epigastrium and confirmation by capnometry Patient tolerated procedure: well Intubation complications: none
--- NOTE | 2021-12-10 23:18 | P.CONCC_ITS ---
History of Present Illness Data of Consult Service Date: 12/10/21 Requesting physician: Lore Fernandez Primary Care Provider: Lachelle Guerra MD HPI Reason for consult: Mental status changes, hypoxic respiratory failure HPI: ?Patient is a 31-year-old female with underlying history of hypothyroidism, bipolar, diabetes mellitus, B12 deficiency, esophagitis and gastritis, hypertension, gastric paresis, hyperlipidemia, E coli septicemia, morbid obesity, vitamin-D deficiency, generalized muscle weakness, gait instability and fall in neuropathy; at some point in 2018 she had a lumbar puncture done to reveal normal cells and protein, she did not tolerate any mg, she did however had an MRI of brain done, due to mental status changes that revealed dorsomedial by thalamic hyperintensities on DWI and FLAIR sequences, and a small subdural hemorrhage in right parieto-occipital area she had a PET scan which showed no evidence of malignancy.? At the time the patient had been transferred to [facility] ?where at entative diagnosis of autoimmune encephalitis was made and she was treated with IVIG followed by Rituxan; also she got treatment for thiamine deficiency. Her last dose of Rituxan was in June and last dose of IVIG was about a month ago.? Patient presented to in this hospital on 11/29/2021 with a fever, apparently at the time she had had symptoms of COVID for approximately 11 days (onset Nov) but was diagnosed COVID positive approximately the of November of this year despite of having had 2 Pfizer vaccines.? It is known at the time she had a dry cough but was not hypoxic and denied shortness of breath, her inflammatory markers have been elevated including LFTs, she had a positive urine and was recently treated for a UTI. ?On arrival to the ER her O2 sat had been 89% on room air; patient was admitted due to hypoxic respiratory failure in the setting of COVID-19 infection possible UTI. In the emergency room IV fluids, steroids, meropenem and was admitted for further management of her COVID symptoms. ?Over last couple of days the patient has worsens had worsened mental status pulling at her IVs and oxygen, she was found to be nonresponsive today, given her agitation she had to be restrained, apparently nonverbal but spontaneously breathing.? She has refused her medications.? Her sodium has been elevated at 157; patient was seen by mink rancher who recommended aggressive fluid replacement; steroids were discontinued for the concern of steroid related psychosis, also due to concern of seizure Keppra was started. ?The patient has been seen by our neurologist Dr. Magaña who attributed her mental status changes to a metabolic/toxic encephalopathy as well as psychiatric disease.? Recommended a noncontrast MRI as well as to resume her psych medications including ox carbamazepine and gabapentin. ?Given her ongoing deterioration mental status changes, the patient will be transferred to the ICU, no P will be consider. ROS: ?Unable to obtain Past Medical History: ?As above Past Surgical History: Tooth extraction Family history: ?Noncontributory, adopted Social History:? Adopted, former tobacco user amount unknown, no history of alcohol or drug consumption.? All information per chart. ? CODE STATUS: FULL CODE Allergies: NKDA Home Medications: See Med Rec PHYSICAL EXAM: VS: ?Blood pressure 140/92, heart rate 140, respirations 20, O2 sat 92% on room air, temperature 100.7?. General:? Alert unable to determine orientation. ? Skin:? Intact, no lesions, edema, erythema, clubbing or cyanosis.? No ulcers. HEENT:? Head is normocephalic, atraumatic, pupils equal round reactive to light accommodation bilaterally.? Extraocular movements appear intact.? Buccal mucosa is dry., Neck is supple without lymphadenopathy. Cardiac:? Clear S1-S2, no murmurs rubs or gallops. Pulmonary:? Clear to auscultation, no wheezes, rales or rhonchi. Abdomen:? Protuberant, positive bowel sounds in all 4 quadrants.? Soft, nontender, no rebound or guarding.? Musculoskeletal:? Moving all 4 extremities on her own.? No asymmetry of the legs, no edema. Neurologic:? As above, difficult to assess, no obvious focal deficits with exception of her alter mental status. ? Motor strength as above.? Vascular:? 2+ pulses upper and lower extremities distally. SIGNIFICANT LABORATORY DATA: ?As above REVIEW OF IMAGES: ? Noncontrast MRI of the head and brain IMPRESSION: 1. Suboptimal study due to patient motion artifact and habitus. 2. There are no acute bleeds or infarcts demonstrated on the available images. No masses are seen. The study redemonstrates abnormal FLAIR signal in the posterior thalami bilaterally, less extensive compared to the prior study. MOST RECENT CHEST X-RAY IMPRESSION Interval insertion of enteric tube which terminates below the level the diaphragm, beyond the parameters of today's chest x-ray. Similar hypoinflated lungs without pleural effusion or pneumothorax. Subtle bibasilar opacities again noted. Surgical clip projects over the left upper abdomen. Enteric tube in expected position ASSESSMENT AND PLAN: 1. Acute COVID-19 infection 2. Mental status changes likely due to metabolic versus toxic encephalopathy in the setting of steroid administration, perhaps worsened by psychiatric history 3. Reactive leukocytosis 4. Reactive Thrombocytopenia 5. Respiratory /metabolic alkalosis 6. Severe hypo osmolar hypernatremia with sodium 160 7. Lactic/ Anion gap acidosis 8. Acute kidney injury with creatinine 1.95 (baseline 0.8) likely due to volume depletion 9. Elevated CPK could represent mild rhabdomyolysis, I doubt neuroleptics malignant syndrome 10. UTI Patient will be transferred to the ICU, will do aggressive water deficit replacement, will look into her medications and discontinue any nephrotoxins or medications that could be retaining to her system given her renal failure that could cause significant mental status changes, continue with Zosyn and will adjust to renal function, Dr. Morgan performed a lumbar puncture successfully with a single pass, please see attached note. Tubes with fluid were sent for analysis. As we evaluated the patient in the ICU, it was clear that the patient was quickly decompensated, she was quite tachypneic although no hypoxic, it is also noted that she could maintain her secretions therefore at this point the decision to intubate her was made, please see attached procedure note, a central line was also placed. Repeat labs this pm and in am, continue with D5 and check BS, ISS, GI PROPHYLAXIS: IV ppi DVT PROPHYLAXIS: DC Lovenox due to renal insufficiency and changed to heparin Critical care time used for critical evaluation of this patient, diagnosis, treatment and coordination of care, review her records and documentation TOTAL CRITICAL CARE TIME 120 MIN . Patient's care was discussed in detail with Dr. Morgan.? He is aware of all the above as well as the plan of care for this patient. [facility] Past Medical History Medical History Acquired hypothyroidism Bipolar disorder Blurred vision, bilateral Clinical decompensation Diabetes mellitus with hyperglycemia Elevated vitamin B12 level Esophagitis with gastritis Essential hypertension Gait instability Gastric paresis Hx of Escherichia coli septicemia Hyperlipidemia Muscle weakness Obesity, morbid, BMI 40.0-49.9 Peripheral neuropathy Vitamin D deficiency Family History Family History Other Adopted Family history: reviewed and not pertinent Surgical History Surgical History Hx of section Hx of tooth extraction Social History Social History Household Members: Adopted Family Housing: Unknown / Unable to assess Alcohol intake: never Patient Tobacco Use Status: Former Tobacco user Second Hand Smoke Exposure: No service: No Current occupational status: disabled Gender identity: Female Meds Allergies Allergy/AdvReac Type Severity Reaction Status Date / Time latex Allergy Unknown rash Verified 11/14/21 00:57 metoclopramide [From AdvReac Unknown INTERACTS Verified 11/14/21 00:57 REGLAN] W/ SEROQUEL Active Medications: Current Medications Acetaminophen (Acetaminophen 325 Mg Tablet) 650 mg PO Q6H PRN PRN Reason: Pain, Mild (Pain Scale 1-3) Last Admin: 12/03/21 16:16 Dose: 650 mg Documented by: Bupropion HCl (Bupropion Hcl Xl 150 Mg Tab.Er.24h) 150 mg PO DAILY RADHA Last Admin: 12/10/21 15:20 Dose: 150 mg Documented by: Dextrose (Dextrose 50 % 25 Gm/50 Ml Syringe) 25 gm IVPUSH Q15M PRN; Protocol PRN Reason: per Hypoglycemia Standing Ord. Glucose (Glucose Gel 15 Gm Gel..Gram.) 15 gm PO Q15M PRN; Protocol PRN Reason: per Hypoglycemia Standing Ord. Haloperidol Lactate (Haloperidol Lactate 5 Mg/Ml Vial) 2 mg IVPUSH Q6H PRN PRN Reason: anxiety/restlessness Heparin Sodium (Porcine) (Heparin Sodium,Porcine 5,000 Unit/Ml Vial) 5,000 unit SUBCUT Q8H RADHA Folic Acid 1 mg/ Sodium (Chloride) 50.2 mls @ 100.4 mls/hr IV DAILY [facility] Last Infusion: 12/10/21 09:55 Dose: Infused Documented by: Sodium Bicarbonate 100 meq/ (Dextrose) 1,000 mls @ 100 mls/hr IV .Q10H [facility] Last Admin: 12/10/21 18:56 Dose: 100 mls/hr Documented by: Propofol (Diprivan) 1,000 mg in 100 mls @ 0 mls/hr IVCONT .Q0M [facility]; Protocol Piperacillin Sod/Tazobactam (Sod 3.375 gm/ Sodium Chloride) 50 mls @ 100 mls/hr IV Q8H [facility] Insulin Glargine (Insulin Glargine,Hum.Rec.Anlog 100 Unit/Ml 10 Ml Vial) 14 unit SUBCUT BEDTIME [facility] Last Admin: 12/09/21 21:36 Dose: Not Given Documented by: Insulin Human Lispro (Insulin Lispro 100 Unit/Ml 3 Ml Vial) 0 unit SUBCUT QIDACHS [facility]; Protocol Last Admin: 12/10/21 17:32 Dose: Not Given Documented by: Levothyroxine Sodium (Levothyroxine Sodium 75 Mcg Tablet) 75 mcg PO DAILY@0600 [facility] Last Admin: 12/10/21 05:57 Dose: Not Given Documented by: Magnesium Oxide (Magnesium Oxide 400 Mg Tablet) 400 mg NG-TUBE DAILY [facility] Melatonin (Melatonin 3 Mg Tablet) 6 mg PO BEDTIME [facility] Last Admin: 12/10/21 22:00 Dose: Not Given Documented by: Omeprazole (Omeprazole 20 Mg Capsule.) 20 mg PO DAILY@0630 [facility] Last Admin: 12/10/21 05:57 Dose: Not Given Documented by: Ondansetron HCl (Ondansetron Hcl 4 Mg/2 Ml Vial) 4 mg IVPUSH Q8H PRN PRN Reason: Nausea and Vomiting Oxcarbazepine (Oxcarbazepine 150 Mg Tablet) 450 mg NG-TUBE BID [facility] Last Admin: 12/10/21 22:00 Dose: Not Given Documented by: Pharmacy Consult (Consult Rx Perform Med Rec) 1 each MISCELLANE ONCE PRN PRN Reason: Consult order Pravastatin Sodium (Pravastatin Sodium 20 Mg Tablet) 20 mg PO BEDTIME [facility] Last Admin: 12/10/21 22:00 Dose: Not Given Documented by: Pregabalin (Pregabalin 150 Mg Capsule) 150 mg NG-TUBE BID [facility] Quetiapine Fumarate (Quetiapine Fumarate 400 Mg Tablet) 400 mg NG-TUBE BEDTIME [facility] Quetiapine Fumarate (Quetiapine Fumarate 200 Mg Tablet) 200 mg NG-TUBE BEDTIME [facility] Sodium Chloride (0.9 % Sodium Chloride Flush 3 Ml Syringe) 3 ml IVFLUSH QSHIFT [facility] Last Admin: 12/10/21 16:12 Dose: Not Given Documented by: Thiamine HCl (Thiamine Hcl 100 Mg Tablet) 100 mg NG-TUBE DAILY [facility] Home Medications Medication Instructions Recorded Confirmed Last Taken Type bupropion HCl 100 100 mg PO QAM 11/30/20 11/29/21 11/28/21 History mg tablet,12 hr sustained-release trazodone 100 mg 100 mg PO 11/30/20 11/29/21 11/28/21 History tablet BEDTIME cranberry 400 mg 450 mg PO DAILY 03/22/21 11/29/21 11/28/21 History capsule cap melatonin 3 mg 6 mg PO DAILY 03/22/21 11/29/21 11/28/21 History tablet multivitamin 1 tab PO DAILY 03/22/21 11/29/21 11/28/21 History pregabalin 300 mg 300 mg PO BID 05/10/21 11/29/21 11/28/21 History capsule cap thiamine HCl 100 mg PO DAILY 06/09/21 11/29/21 11/28/21 History (vitamin B1) 100 mg tablet rituximab 10 10 mg IV 08/11/21 11/29/21 Unknown History mg/mL [id number] concentrate,intra venous oxcarbazepine 150 450 mg PO BID 08/18/21 11/29/21 11/28/21 History mg tablet tab immune 0 ml IV Q4W 10/11/21 11/29/21 09/27/21 History globulin,gamma(Ig G)slra 10 % intravenous solution cholecalciferol 1,250 mcg PO MO 10/16/21 11/29/21 11/28/21 History (vitamin D3) 1,250 mcg (50,000 unit) capsule chlorhexidine 15 ml PO BID 11/29/21 11/29/21 11/28/21 History gluconate 0.12 % mouthwash quetiapine 200 mg 1 tab PO BEDTIME 11/29/21 11/29/21 11/28/21 History tablet quetiapine 400 mg 1 tab PO BEDTIME 11/29/21 11/29/21 11/28/21 History tablet Physical Exam Verdana 4l Vital Signs: Verdana 4d Verdana 4d Vital Signs: Verdana 4d Verdana 4Bd Last Vital Signs Verdana 4d [employer] New 4d [employer] New 4d Temp 100.7 F H 12/10/21 19:59 [employer] New 4d Pulse 114 H 12/10/21 22:19 [employer] New 4d Resp 20 12/10/21 22:19 BP 130/87 12/10/21 22:19 Pulse Ox 98 12/10/21 22:19 Oxygen Flow Rate 4 11/29/21 11:52 BMI result Body Mass Index 43.0 Results Labs CBC & Chem 7: 12/10/21 23:35 12/10/21 23:35 Labs: Short CBC 12/10/21 Range/Units 08:04 WBC 13.9 H (4.8-10.8) X10*3/uL Hgb 14.7 (12.0-16.0) g/dl Hct 45.1 (37.0-47.0) % Plt Count 608 H D (160-400) X10*3/uL BMP 12/10/21 12/10/21 12/10/21 08:04 12:00 15:11 Sodium 157 H 158 H 160 H* Potassium 3.6 3.8 3.7 Chloride 124 H 125 H 126 H Carbon Dioxide 15 L 14 L 12 L BUN 29 H 31 H 37 H Creatinine 1.26 1.44 H 1.95 H Calcium 10.1 D 10.1 10.4 H 12/10/21 18:53 Sodium Cancelled Potassium Cancelled Chloride Cancelled Carbon Dioxide Cancelled BUN Cancelled Creatinine Cancelled Calcium Cancelled Cardiac Enzymes 12/10/21 Range/Units 15:11 Total Creatine Kinase 415 H D (26-140) U/L Urine 12/10/21 Range/Units 18:53 Urine Color DK YELLOW Urine Appearance CLOUDY Urine pH 5.5 (5.0-8.0) Ur Specific [place] >= 1.030 H (1.005-1.025) Urine Protein 2+ H (NEG-TRACE) MG/DL Urine Glucose (UA) NEG (NEG) MG/DL Microbiology Microbiology Results: Microbiology 12/04/21 11:43 Blood - Venous Blood Culture - Final No growth after 5 days. 12/04/21 11:43 Blood - Venous Blood Culture - Final No growth after 5 days. 11/29/21 14:01 Blood - Venous Blood Culture - Final No growth after 5 days. 11/29/21 13:51 Blood - Venous Blood Culture - Final No growth after 5 days. 11/29/21 Unknown Urine clean catch - Urine [place] top Urine Culture - Final
[2021-12-10] MEDS: propofoL 200 MG/20 ML VIAL 100 MG IVPUSH (23:25)
[2021-12-10] MEDS: Rocuronium Bromide 50 MG/5 ML VIAL IVPUSH (23:26)
[2021-12-10 23:54] LABS: MANUAL DIFF FLAG NO
[2021-12-10 23:58] LABS: VBG Base Excess -4.5 mmol/L; VBG HCO3 17 mmol/L (22-26); VBG pCO2 23 mmHg; VBG pH 7.47 (7.32-7.43); VBG pO2 36 mmHg
[2021-12-11] VITALS (35 sets, daily range): BP systolic 85–126; BP diastolic 59–86; PULSE 82–111; RESP 12–22; TEMP 31–37.1; O2SAT 94–100
[2021-12-11] LABS: Basophils Percent Auto 0.2 % (0-2); Eosinophils Percent Auto 0.2 % (0-4); Hematocrit 41.6 % (37.0-47.0); Hemoglobin 13.6 g/dl (12.0-16.0); Imm Gran Abs Auto 0.14 X10*3/uL (0.00-0.03); Imm Gran Pct Auto 0.9 % (0.0-0.4); Lymphocytes Absolute Auto 2.3 X10*3/uL (1.2-4.9); Lymphocytes Percent Auto 14.3 % (20-40); Mean Corpuscular HGB Conc 32.7 g/dl (31.0-35.0); Mean Corpuscular Hemoglobin 27.8 pg (27.0-33.0); Mean Corpuscular Volume 85.1 fL (80.0-98.0); Mean Platelet Volume 10.7 fL (9.4-12.3); Monocytes Absolute Auto 1.3 X10*3/uL (0.1-1.2); Monocytes Percent Auto 7.9 % (2-11); NRBC Pct Auto 0.2 /100WBC (0.0-0.2); Neutrophils Absolute Auto 12.3 x10*3/uL (2.0-8.3); Neutrophils Percent Auto 76.5 % (45-73); Platelet Count 564 X10*3/uL (160-400); Red Blood Count 4.89 X10*6/uL (4.20-5.50); Red Cell Distribution Width 14.9 % (11.0-16.0); White Blood Count 16.1 X10*3/uL (4.8-10.8)
[2021-12-11 00:15] LABS: ~Lactic Acid-LAB USE ONLY 1.9 mmol/L (0.5-2.0)
[2021-12-11] MEDS: Heparin Sodium,Porcine 5,000 UNIT/ML VIAL 5000 UNIT SUBCUT ×4 (00:15→22:41)
[2021-12-11] MEDS: Sodium Bicarbonate 8.4% 50 MEQ/50 ML SYRINGE IVPUSH (00:16)
[2021-12-11] MEDS: Dextrose 5 % 1,000 ML 150 ML IVCONT ×2 (00:16→04:58)
[2021-12-11] MEDS: 0.9 % Sodium Chloride Flush 3 ML SYRINGE IVFLUSH ×3 (00:17→14:25)
[2021-12-11] MEDS: Piperacillin Sodium/Tazobactam 3.375 GM in 0.9 % Sodium Chloride 50 ML IV ×4 (00:18→20:22)
[2021-12-11 00:28] LABS: Alanine Aminotransferase 44 U/L (0-31); Albumin Level 3.8 g/dL (3.5-5.0); Alkaline Phosphatase 139 U/L (39-117); Anion Gap 20 (12-20); Aspartate Amino Transferase 43 U/L (5-31); Bilirubin Total 1.1 mg/dL (0.0-1.0); Blood Urea Nitrogen 40 mg/dL (9-16); Calcium 9.2 mg/dL (8.4-10.2); Carbon Dioxide 16 mmol/L (22-29); Chloride 119 mmol/L (96-108); Creatinine Clr Calc Pharmacy 39.4; Estimated Glomerular Filt Rate 27; Glucose Random 157 mg/dL (60-115); Potassium 3.3 mmol/L (3.3-5.1); Sodium 152 mmol/L (135-145); Total Protein 6.8 g/dL (6.5-8.0)
[2021-12-11 00:38] LABS: Venous Blood Gas Refer to POC result
[2021-12-11 00:58] LABS: Glucose CSF 113 mg/dL; Total Protein CSF 22.9 mg/dL (15-45)
[2021-12-11 01:05] LABS: CSF Appearance Clear, Colorless; CSF Tube # 2
[2021-12-11 01:17] LABS: Appearance CSF CLEAR; CSF Tube # 1
[2021-12-11 01:18] LABS: CSF Volume 1.5 ML; Color CSF COLORLESS; Red Blood Cell CSF 29 MM*3; White Blood Cell CSF 0 MM*3
[2021-12-11] MEDS: Metoprolol Tartrate 5 MG/5 ML VIAL IVPUSH ×2 (01:30→22:41)
[2021-12-11 01:40] LABS: Neutrophils CSF 11 %
[2021-12-11 01:41] LABS: Lymphocytes CSF 89 %
--- NOTE | 2021-12-11 02:20 | PC.NURSE ---
Pt transferred to ICU at approx 1999. Upon initial assessment- pt lethargic, but intermittently restless/agitated, unable to follow commands. Lumbar puncture done at bedside by MD, given total of propofol 100 mg IVP and ketamine 30 mg IVP throughout procedure per MD instruction, vital signs continuously monitored. CSF sample sent. At approx 2100- pt drooling, unable to manage secretions, still with AMS, decision made to intubate. Given propofol 100 mg IVP and rocuronium 50 mg IVP for RSI. ETT #7.5, 23cm at lip. On AC 14/450/5/35%. ST on tele, HR 160s, given lopressor 5 mg IVP with good effect. TLC placed to L IJ. OGT placed. Lines/tubes confirmed by pCXR. Medicated per emar. Skin intact. Placed on prevalon mattress system and air loss bed.
[2021-12-11] MEDS: propofoL 1,000 MG/100 ML VIAL 28.98 MG IVCONT ×3 (03:33→10:00)
[2021-12-11] MEDS: fentaNYL citrate/NS 1,000 MCG/100 ML PLAST..BAG 10 MCG IVCONT ×2 (04:55→11:49)
[2021-12-11 05:30] LABS: VBG Base Excess -2.4 mmol/L; VBG HCO3 19 mmol/L (22-26); VBG pCO2 27 mmHg; VBG pH 7.46 (7.32-7.43); VBG pO2 38 mmHg
[2021-12-11 05:33] LABS: MANUAL DIFF FLAG NO; Venous Blood Gas Refer to POC result
[2021-12-11 05:42] LABS: Basophils Absolute Auto 0.1 X10*3/uL (0.0-0.2); Basophils Percent Auto 0.3 % (0-2); Eosinophils Absolute Auto 0.1 X10*3/uL (0.0-0.4); Eosinophils Percent Auto 0.9 % (0-4); Hematocrit 39.2 % (37.0-47.0); Hematocrit 39.3 % (37.0-47.0); Hemoglobin 12.9 g/dl (12.0-16.0); Imm Gran Abs Auto 0.11 X10*3/uL (0.00-0.03); Imm Gran Pct Auto 0.7 % (0.0-0.4); Lymphocytes Absolute Auto 1.9 X10*3/uL (1.2-4.9); Lymphocytes Percent Auto 12.4 % (20-40); Mean Corpuscular HGB Conc 32.8 g/dl (31.0-35.0); Mean Corpuscular HGB Conc 32.9 g/dl (31.0-35.0); Mean Corpuscular Hemoglobin 28.1 pg (27.0-33.0); Mean Corpuscular Hemoglobin 28.2 pg (27.0-33.0); Mean Corpuscular Volume 85.4 fL (80.0-98.0); Mean Corpuscular Volume 85.8 fL (80.0-98.0); Mean Platelet Volume 10.7 fL (9.4-12.3); Mean Platelet Volume 10.8 fL (9.4-12.3); Monocytes Percent Auto 6.3 % (2-11); NRBC Pct Auto 0.1 /100WBC (0.0-0.2); NRBC Pct Auto 0.2 /100WBC (0.0-0.2); Neutrophils Absolute Auto 12.3 x10*3/uL (2.0-8.3); Neutrophils Percent Auto 79.4 % (45-73); Platelet Count 562 X10*3/uL (160-400); Platelet Count 573 X10*3/uL (160-400); Red Blood Count 4.58 X10*6/uL (4.20-5.50); Red Blood Count 4.59 X10*6/uL (4.20-5.50); White Blood Count 15.1 X10*3/uL (4.8-10.8); White Blood Count 15.4 X10*3/uL (4.8-10.8)
[2021-12-11] MEDS: Levothyroxine Sodium 75 MCG TABLET PO (06:20)
[2021-12-11 06:24] LABS: Alanine Aminotransferase 41 U/L (0-31); Albumin Level 3.7 g/dL (3.5-5.0); Alkaline Phosphatase 127 U/L (39-117); Anion Gap 20 (12-20); Aspartate Amino Transferase 31 U/L (5-31); Bilirubin Direct 0.8 mg/dL (0.0-0.5); Bilirubin Total 1.2 mg/dL (0.0-1.0); Blood Urea Nitrogen 39 mg/dL (9-16); C Reactive Protein 1.71 mg/dL (< or = 0.50); Carbon Dioxide 19 mmol/L (22-29); Chloride 112 mmol/L (96-108); Estimated Glomerular Filt Rate 32; Glucose Random 303 mg/dL (60-115); Lactate Dehydrogenase 571 U/L (122-220); Magnesium 2.4 mg/dL (1.6-2.6); Potassium 2.9 mmol/L (3.3-5.1); Sodium 148 mmol/L (135-145); Total Protein 6.5 g/dL (6.5-8.0)
--- NOTE | 2021-12-11 06:41 | PC.NURSE ---
CARE ASSUMED 23;15...REMAINS TUBED/VENTED VCV/AC MODE...D5W 150 CC/HR & PROPOFOL 50 MCG/KG/MIN..SBP 80'S AND SCANT URINE OUTPUT..STARTED LEVOPHED AND TITRATED TO 0.06 MCG/KG/MIN WITH IMPROVED BP..INITIALLY SEDATE BUT GRADUALLY INCREASED RESTLESS/VENT DYSYNCHRONY...ICU PA PRESENT..STARTED FENTANYL 100 MCG/HR WITH RETURN OF VENT SYNCHRONY..AM LABS REVIEWED WITH MELANY...D5W DECREASED TO 100 CC/HR...NSR RARE PAC
[2021-12-11] MEDS: Ketamine HCl/NS 50 MG/5 ML SYRINGE 30 MG IVPUSH (07:10)
[2021-12-11 07:32] LABS: Glucose, Whole Blood 249 mg/dL (60-115)
[2021-12-11 08:42] LABS: Anion Gap 20 (12-20); Blood Urea Nitrogen 35 mg/dL (9-16); Calcium 8.7 mg/dL (8.4-10.2); Carbon Dioxide 15 mmol/L (22-29); Chloride 112 mmol/L (96-108); Estimated Glomerular Filt Rate 35; Glucose Random 261 mg/dL (60-115); Potassium 2.9 mmol/L (3.3-5.1); Sodium 144 mmol/L (135-145)
[2021-12-11] MEDS: OXcarbazepine 150 MG TABLET 450 MG NG-TUBE ×2 (08:53→20:19)
[2021-12-11] MEDS: Potassium Chloride Packet 20 MEQ PACKET 40 MEQ PO ×2 (08:53→11:36)
[2021-12-11] MEDS: Insulin Lispro 100 UNIT/ML 3 ML VIAL SUBCUT ×2 (08:54→21:09)
[2021-12-11] MEDS: Thiamine HCL 100 MG TABLET NG-TUBE (08:54)
[2021-12-11] MEDS: Magnesium Oxide 400 MG TABLET NG-TUBE (08:54)
[2021-12-11] MEDS: Chlorhexidine Gluc Oral Rinse 15 ML MOUTHWASH BUCCAL ×3 (08:54→20:19)
--- NOTE | 2021-12-11 09:02 | P.PNNP_ITS ---
Subjective Subjective Date of Service: 12/11/21 Interval history: . 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 Resp 13 12/11/21 08:00 BP 101/65 12/11/21 08:00 Pulse Ox 98 12/11/21 08:00 Oxygen Flow Rate 4 11/29/21 11:52 BMI result Body Mass Index 43.0 Const: Other: General - alert with stimulation appears anxious and disoriented not in respiratory distress Cardiovascular - S1S2, tachycardic Lungs - no distress, chest wall moving common Abdomen - soft, non-tender, no rebound or guarding Extremities - no edema bilaterally Neuro - awake and alert, bilateral lower extremity weakness, altered cognition with decreased responses and inability to verbalize her needs or complaints General: cooperative HENMT: Head: Yes normal to inspection Ears: hearing grossly normal bilaterally Mouth: Normal oral and palatal mucosa present Resp: Effort & Inspection: normal respiratory effort Cardio: Rate: regular rate Rhythm: regular rhythm GI: Palpation (GI): nontender Extrem: General: Yes normal to inspection Objective Data Labs CBC & Chem 7: 12/11/21 05:15 12/11/21 08:05 Labs: Laboratory Results - last 24 hr 12/10/21 12/10/21 12/10/21 11:14 11:53 12:00 WBC RBC Hgb Hct MCV MCH MCHC RDW Plt Count MPV Immature Gran % (Auto) Neut % (Auto) Lymph % (Auto) [place] % (Auto) Eos % (Auto) Baso % (Auto) Lymph # (Auto) [place] # (Auto) Eos # (Auto) Baso # (Auto) Abs Immat Gran (auto) Absolute Neuts (auto) Absolute Nucleated RBC Nucleated RBC % (auto) O2 Saturation ABG pH at Pt Temp ABG pH (Temp Correct) ABG pCO2 at Pt Temp ABG pCO2 (Temp Corrct ABG pO2 at Pt Temp ABG pO2 (Temp Correct ABG HCO3 ABG Base Excess (Actual) VBG pH VBG pCO2 VBG pO2 VBG HCO3 VBG O2 Saturation VBG Base Excess Sodium 158 H Potassium 3.8 Chloride 125 H Carbon Dioxide 14 L Anion Gap 23 H BUN 31 H Creatinine 1.44 H Estim Creat Clear Calc 57.1 Estimated GFR 42 POC Glucose 157 H Random Glucose 167 H Lactic Acid 3.6 H* Lactic Acid F/U @ 2Hr Lactic Acid F/U @ 4Hr Calcium 10.1 Magnesium Total Bilirubin Direct Bilirubin AST ALT Alkaline Phosphatase Lactate Dehydrogenase Total Creatine Kinase C-Reactive Protein Total Protein Albumin Urine Color Urine Appearance Urine pH Ur Specific [place] Urine Protein Urine Glucose (UA) Urine Ketones Urine Blood Urine Nitrite Ur Leukocyte Esterase Urine RBC Urine WBC Ur Squamous Epith Cells Ur Renal Epithelial Cell Amorphous Sediment Urine Bacteria Urine Mucus Urine Yeast Ur Random Sodium Urine Creatinine CSF Tube Number CSF Volume CSF Appearance CSF Color CSF WBC CSF RBC CSF Neutrophils CSF Lymphocytes CSF Appearance (b) CSF Glucose CSF Total Protein 12/10/21 12/10/21 12/10/21 15:11 15:11 16:24 WBC RBC Hgb Hct MCV MCH MCHC RDW Plt Count MPV Immature Gran % (Auto) Neut % (Auto) Lymph % (Auto) [place] % (Auto) Eos % (Auto) Baso % (Auto) Lymph # (Auto) [place] # (Auto) Eos # (Auto) Baso # (Auto) Abs Immat Gran (auto) Absolute Neuts (auto) Absolute Nucleated RBC Nucleated RBC % (auto) O2 Saturation ABG pH at Pt Temp ABG pH (Temp Correct) ABG pCO2 at Pt Temp ABG pCO2 (Temp Corrct ABG pO2 at Pt Temp ABG pO2 (Temp Correct ABG HCO3 ABG Base Excess (Actual) VBG pH VBG pCO2 VBG pO2 VBG HCO3 VBG O2 Saturation VBG Base Excess Sodium 160 H* Potassium 3.7 Chloride 126 H Carbon Dioxide 12 L Anion Gap 26 H BUN 37 H Creatinine 1.95 H Estim Creat Clear Calc 42.2 Estimated GFR 30 POC Glucose 182 H Random Glucose 197 H Lactic Acid Lactic Acid F/U @ 2Hr 3.1 H* Lactic Acid F/U @ 4Hr Calcium 10.4 H Magnesium Total Bilirubin Direct Bilirubin AST ALT Alkaline Phosphatase Lactate Dehydrogenase Total Creatine Kinase 415 H D C-Reactive Protein Total Protein Albumin Urine Color Urine Appearance Urine pH Ur Specific [place] Urine Protein Urine Glucose (UA) Urine Ketones Urine Blood Urine Nitrite Ur Leukocyte Esterase Urine RBC Urine WBC Ur Squamous Epith Cells Ur Renal Epithelial Cell Amorphous Sediment Urine Bacteria Urine Mucus Urine Yeast Ur Random Sodium Urine Creatinine CSF Tube Number CSF Volume CSF Appearance CSF Color CSF WBC CSF RBC CSF Neutrophils CSF Lymphocytes CSF Appearance (b) CSF Glucose CSF Total Protein 12/10/21 12/10/21 12/10/21 18:06 18:53 18:53 WBC RBC Hgb Hct MCV MCH MCHC RDW Plt Count MPV Immature Gran % (Auto) Neut % (Auto) Lymph % (Auto) [place] % (Auto) Eos % (Auto) Baso % (Auto) Lymph # (Auto) [place] # (Auto) Eos # (Auto) Baso # (Auto) Abs Immat Gran (auto) Absolute Neuts (auto) Absolute Nucleated RBC Nucleated RBC % (auto) O2 Saturation 94.0 ABG pH at Pt Temp 7.49 H ABG pH (Temp Correct) 7.47 H ABG pCO2 at Pt Temp 16 L* ABG pCO2 (Temp Corrct 17 L* ABG pO2 at Pt Temp 70 L ABG pO2 (Temp Correct 74 L ABG HCO3 12 L ABG Base Excess (Actual) -7.3 VBG pH VBG pCO2 VBG pO2 VBG HCO3 VBG O2 Saturation VBG Base Excess Sodium Cancelled Potassium Cancelled Chloride Cancelled Carbon Dioxide Cancelled Anion Gap Cancelled BUN Cancelled Creatinine Cancelled Estim Creat Clear Calc Cancelled Estimated GFR Cancelled POC Glucose Random Glucose Cancelled Lactic Acid Lactic Acid F/U @ 2Hr Lactic Acid F/U @ 4Hr Calcium Cancelled Magnesium Total Bilirubin Direct Bilirubin AST ALT Alkaline Phosphatase Lactate Dehydrogenase Total Creatine Kinase C-Reactive Protein Total Protein Albumin Urine Color DK YELLOW Urine Appearance CLOUDY Urine pH 5.5 Ur Specific [place] >= 1.030 H Urine Protein 2+ H Urine Glucose (UA) NEG Urine Ketones 15 Urine Blood 3+ H Urine Nitrite NEG Ur Leukocyte Esterase 1+ H Urine RBC 5-9 H Urine WBC 1-4 Ur Squamous Epith Cells 2+ Ur Renal Epithelial Cell 1+ Amorphous Sediment TRACE Urine Bacteria TRACE Urine Mucus 3+ Urine Yeast 3+ Ur Random Sodium Urine Creatinine CSF Tube Number CSF Volume CSF Appearance CSF Color CSF WBC CSF RBC CSF Neutrophils CSF Lymphocytes CSF Appearance (b) CSF Glucose CSF Total Protein 12/10/21 12/10/21 12/10/21 18:53 23:34 23:34 WBC RBC Hgb Hct MCV MCH MCHC RDW Plt Count MPV Immature Gran % (Auto) Neut % (Auto) Lymph % (Auto) [place] % (Auto) Eos % (Auto) Baso % (Auto) Lymph # (Auto) [place] # (Auto) Eos # (Auto) Baso # (Auto) Abs Immat Gran (auto) Absolute Neuts (auto) Absolute Nucleated RBC Nucleated RBC % (auto) O2 Saturation ABG pH at Pt Temp ABG pH (Temp Correct) ABG pCO2 at Pt Temp ABG pCO2 (Temp Corrct ABG pO2 at Pt Temp ABG pO2 (Temp Correct ABG HCO3 ABG Base Excess (Actual) VBG pH VBG pCO2 VBG pO2 VBG HCO3 VBG O2 Saturation VBG Base Excess Sodium Potassium Chloride Carbon Dioxide Anion Gap BUN Creatinine Estim Creat Clear Calc Estimated GFR POC Glucose Random Glucose Lactic Acid Lactic Acid F/U @ 2Hr Lactic Acid F/U @ 4Hr Calcium Magnesium Total Bilirubin Direct Bilirubin AST ALT Alkaline Phosphatase Lactate Dehydrogenase Total Creatine Kinase C-Reactive Protein Total Protein Albumin Urine Color Urine Appearance Urine pH Ur Specific [place] Urine Protein Urine Glucose (UA) Urine Ketones Urine Blood Urine Nitrite Ur Leukocyte Esterase Urine RBC Urine WBC Ur Squamous Epith Cells Ur Renal Epithelial Cell Amorphous Sediment Urine Bacteria Urine Mucus Urine Yeast Ur Random Sodium Cancelled Urine Creatinine Cancelled CSF Tube Number 2 1 CSF Volume 1.5 CSF Appearance CLEAR CSF Color COLORLESS CSF WBC 0 CSF RBC 29 CSF Neutrophils 11 CSF Lymphocytes 89 CSF Appearance (b) Clear, Colorless CSF Glucose 113 CSF Total Protein 22.9 12/10/21 12/10/21 12/10/21 23:35 23:35 23:35 WBC 16.1 H RBC 4.89 Hgb 13.6 Hct 41.6 MCV 85.1 MCH 27.8 MCHC 32.7 RDW 14.9 Plt Count 564 H MPV 10.7 Immature Gran % (Auto) 0.9 H Neut % (Auto) 76.5 H Lymph % (Auto) 14.3 L [place] % (Auto) 7.9 Eos % (Auto) 0.2 Baso % (Auto) 0.2 Lymph # (Auto) 2.3 [place] # (Auto) 1.3 H Eos # (Auto) 0.0 Baso # (Auto) 0.0 Abs Immat Gran (auto) 0.14 H Absolute Neuts (auto) 12.3 H Absolute Nucleated RBC 0.040 H Nucleated RBC % (auto) 0.2 O2 Saturation ABG pH at Pt Temp ABG pH (Temp Correct) ABG pCO2 at Pt Temp ABG pCO2 (Temp Corrct ABG pO2 at Pt Temp ABG pO2 (Temp Correct ABG HCO3 ABG Base Excess (Actual) VBG pH VBG pCO2 VBG pO2 VBG HCO3 VBG O2 Saturation VBG Base Excess Sodium 152 H Potassium 3.3 Chloride 119 H Carbon Dioxide 16 L Anion Gap 20 BUN 40 H Creatinine 2.09 H Estim Creat Clear Calc 39.4 Estimated GFR 27 POC Glucose Random Glucose 157 H Lactic Acid Lactic Acid F/U @ 2Hr Lactic Acid F/U @ 4Hr 1.9 Calcium 9.2 D Magnesium Total Bilirubin 1.1 H Direct Bilirubin AST 43 H ALT 44 H Alkaline Phosphatase 139 H Lactate Dehydrogenase Total Creatine Kinase C-Reactive Protein Total Protein 6.8 Albumin 3.8 Urine Color Urine Appearance Urine pH Ur Specific [place] Urine Protein Urine Glucose (UA) Urine Ketones Urine Blood Urine Nitrite Ur Leukocyte Esterase Urine RBC Urine WBC Ur Squamous Epith Cells Ur Renal Epithelial Cell Amorphous Sediment Urine Bacteria Urine Mucus Urine Yeast Ur Random Sodium Urine Creatinine CSF Tube Number CSF Volume CSF Appearance CSF Color CSF WBC CSF RBC CSF Neutrophils CSF Lymphocytes CSF Appearance (b) CSF Glucose CSF Total Protein 12/10/21 12/11/21 12/11/21 23:51 05:15 05:15 WBC 15.4 H RBC 4.58 Hgb 12.9 Hct 39.3 MCV 85.8 MCH 28.2 MCHC 32.8 RDW 15.0 Plt Count 573 H MPV 10.8 Immature Gran % (Auto) 0.7 H Neut % (Auto) 79.4 H Lymph % (Auto) 12.4 L [place] % (Auto) 6.3 Eos % (Auto) 0.9 Baso % (Auto) 0.3 Lymph # (Auto) 1.9 [place] # (Auto) 1.0 Eos # (Auto) 0.1 Baso # (Auto) 0.1 Abs Immat Gran (auto) 0.11 H Absolute Neuts (auto) 12.3 H Absolute Nucleated RBC 0.020 H Nucleated RBC % (auto) 0.1 O2 Saturation ABG pH at Pt Temp ABG pH (Temp Correct) ABG pCO2 at Pt Temp ABG pCO2 (Temp Corrct ABG pO2 at Pt Temp ABG pO2 (Temp Correct ABG HCO3 ABG Base Excess (Actual) VBG pH 7.47 H VBG pCO2 23 VBG pO2 36 VBG HCO3 17 L VBG O2 Saturation 62.0 VBG Base Excess -4.5 Sodium Cancelled Potassium Cancelled Chloride Cancelled Carbon Dioxide Cancelled Anion Gap Cancelled BUN Cancelled Creatinine Cancelled Estim Creat Clear Calc Cancelled Estimated GFR Cancelled POC Glucose Random Glucose Cancelled Lactic Acid Lactic Acid F/U @ 2Hr Lactic Acid F/U @ 4Hr Calcium Cancelled Magnesium Total Bilirubin Direct Bilirubin AST ALT Alkaline Phosphatase Lactate Dehydrogenase Total Creatine Kinase C-Reactive Protein Total Protein Albumin Urine Color Urine Appearance Urine pH Ur Specific [place] Urine Protein Urine Glucose (UA) Urine Ketones Urine Blood Urine Nitrite Ur Leukocyte Esterase Urine RBC Urine WBC Ur Squamous Epith Cells Ur Renal Epithelial Cell Amorphous Sediment Urine Bacteria Urine Mucus Urine Yeast Ur Random Sodium Urine Creatinine CSF Tube Number CSF Volume CSF Appearance CSF Color CSF WBC CSF RBC CSF Neutrophils CSF Lymphocytes CSF Appearance (b) CSF Glucose CSF Total Protein 12/11/21 12/11/21 12/11/21 05:15 05:15 05:24 WBC 15.1 H RBC 4.59 Hgb 12.9 Hct 39.2 MCV 85.4 MCH 28.1 MCHC 32.9 RDW 15.0 Plt Count 562 H MPV 10.7 Immature Gran % (Auto) Neut % (Auto) Lymph % (Auto) [place] % (Auto) Eos % (Auto) Baso % (Auto) Lymph # (Auto) [place] # (Auto) Eos # (Auto) Baso # (Auto) Abs Immat Gran (auto) Absolute Neuts (auto) Absolute Nucleated RBC 0.030 H Nucleated RBC % (auto) 0.2 O2 Saturation ABG pH at Pt Temp ABG pH (Temp Correct) ABG pCO2 at Pt Temp ABG pCO2 (Temp Corrct ABG pO2 at Pt Temp ABG pO2 (Temp Correct ABG HCO3 ABG Base Excess (Actual) VBG pH 7.46 H VBG pCO2 27 VBG pO2 38 VBG HCO3 19 L VBG O2 Saturation 63.0 VBG Base Excess -2.4 Sodium 148 H Potassium 2.9 L Chloride 112 H Carbon Dioxide 19 L Anion Gap 20 BUN 39 H Creatinine 1.83 H Estim Creat Clear Calc 45.0 Estimated GFR 32 POC Glucose Random Glucose 303 H Lactic Acid Lactic Acid F/U @ 2Hr Lactic Acid F/U @ 4Hr Calcium 9.0 Magnesium 2.4 Total Bilirubin 1.2 H Direct Bilirubin 0.8 H AST 31 ALT 41 H Alkaline Phosphatase 127 H Lactate Dehydrogenase 571 H Total Creatine Kinase C-Reactive Protein 1.71 H Total Protein 6.5 Albumin 3.7 Urine Color Urine Appearance Urine pH Ur Specific [place] Urine Protein Urine Glucose (UA) Urine Ketones Urine Blood Urine Nitrite Ur Leukocyte Esterase Urine RBC Urine WBC Ur Squamous Epith Cells Ur Renal Epithelial Cell Amorphous Sediment Urine Bacteria Urine Mucus Urine Yeast Ur Random Sodium Urine Creatinine CSF Tube Number CSF Volume CSF Appearance CSF Color CSF WBC CSF RBC CSF Neutrophils CSF Lymphocytes CSF Appearance (b) CSF Glucose CSF Total Protein 12/11/21 12/11/21 07:25 08:05 WBC RBC Hgb Hct MCV MCH MCHC RDW Plt Count MPV Immature Gran % (Auto) Neut % (Auto) Lymph % (Auto) [place] % (Auto) Eos % (Auto) Baso % (Auto) Lymph # (Auto) [place] # (Auto) Eos # (Auto) Baso # (Auto) Abs Immat Gran (auto) Absolute Neuts (auto) Absolute Nucleated RBC Nucleated RBC % (auto) O2 Saturation ABG pH at Pt Temp ABG pH (Temp Correct) ABG pCO2 at Pt Temp ABG pCO2 (Temp Corrct ABG pO2 at Pt Temp ABG pO2 (Temp Correct ABG HCO3 ABG Base Excess (Actual) VBG pH VBG pCO2 VBG pO2 VBG HCO3 VBG O2 Saturation VBG Base Excess Sodium 144 Potassium 2.9 L Chloride 112 H Carbon Dioxide 15 L Anion Gap 20 BUN 35 H Creatinine 1.68 H Estim Creat Clear Calc 49.0 Estimated GFR 35 POC Glucose 249 H Random Glucose 261 H Lactic Acid Lactic Acid F/U @ 2Hr Lactic Acid F/U @ 4Hr Calcium 8.7 Magnesium Total Bilirubin Direct Bilirubin AST ALT Alkaline Phosphatase Lactate Dehydrogenase Total Creatine Kinase C-Reactive Protein Total Protein Albumin Urine Color Urine Appearance Urine pH Ur Specific [place] Urine Protein Urine Glucose (UA) Urine Ketones Urine Blood Urine Nitrite Ur Leukocyte Esterase Urine RBC Urine WBC Ur Squamous Epith Cells Ur Renal Epithelial Cell Amorphous Sediment Urine Bacteria Urine Mucus Urine Yeast Ur Random Sodium Urine Creatinine CSF Tube Number CSF Volume CSF Appearance CSF Color CSF WBC CSF RBC CSF Neutrophils CSF Lymphocytes CSF Appearance (b) CSF Glucose CSF Total Protein Microbiology Microbiology Results: Microbiology 12/10/21 23:34 Cerebrospinal Fluid Gram Stain - Final 12/10/21 23:34 Cerebrospinal Fluid CSF Examination - Final 12/10/21 23:34 Cerebrospinal Fluid Fluid Description - Final 12/04/21 11:43 Blood - Venous Blood Culture - Final No growth after 5 days. 12/04/21 11:43 Blood - Venous Blood Culture - Final No growth after 5 days. 11/29/21 14:01 Blood - Venous Blood Culture - Final No growth after 5 days. 11/29/21 13:51 Blood - Venous Blood Culture - Final No growth after 5 days. 11/29/21 Unknown Urine clean catch - Urine [place] top Urine Culture - Final Procedures Date of Service Date of Service: 12/11/21 Assessment & Plan Assessment and plan (1) Hypernatremia: Status: Acute Assessment and Plan: the serum sodium is now normalized however the potassium is low this needs to be aggressively replaced (2) Acute kidney injury: Status: Acute Assessment and Plan: her CRISPIN is resolving the creatinine is returning back towards baseline no new suggestions Time Spent With Patient Time: Total time spent is greater than 50% in coordination of care (as documented) at patient's floor/unit and/or counseling patient: Progress Note: Quality Stroke Does the patient have a stroke diagnosis?: No
--- NOTE | 2021-12-11 09:43 | P.PNCC_ITS ---
Subjective Subjective Date of Service: 12/11/21 Interval History: was transferred down to ICU last night bec of AMS, respiratory insufficiency, metabolic acidosis, and hypernatremia. The patient is a 31 yo woman with PMHx of hypothyroidism, bipolar dz, PCOS, DM, B12 deficiency, vitamin-D deficiency, esophagitis and gastritis, hypertension, gastroparesis, hyperlipidemia, obesity, generalized muscle weakness, and gait instability with some kind of polyneuropathy (see my note of 08/16/2019).? Accord to Dr. Magaña, she was dx with autoimmune encephalitis/polyneuropathy at [facility] and treated with IVIG and Rituxan, and also tx for thiamine deficiency.? See Dr. Magaña is a note from two days ago (Dec 10).? The patient requires 24/7 care, lives w her parents. Has had Pfizer vaccine x 2.? Tested positive for COVID on Nov 23 after having sx since Nov 12.? Presented to the ED on Nov 29 w URI sx, N/V, and UTI.? Sat 93% on room air.? Admitted for tx of COVID and UTI.? Started on Decadron. Psychiatry consult on Dec 08 bec of altered MS.? Refusing meds.? Seen by Dr. Magaña Dec 10.? See his note.? Sx over the last few days have been mostly behavioral, altho she?s had significant metabolic derangements suggestive of metabolic encephalopathy, specifically marked hypernatremia, progressive renal insufficiency with metabolic acidosis.? Review of her vital signs record during this hospitalization indicates that she?s been on [place] oxygen the entire time, slowly increasing from about 2 to 6 liters.? Been on mostly 6L since Dec 03. Called by Dr. Fernandez today bec of AMS with tachypnea, with bicarb down to 12, serum sodium up to 160.? Review of the chart indicates that her renal indices have been rising and her bicarb falling in consonance with the rise in her sodium level.? And lactic acid level yesterday was 3.6. ?In addition, her WBC justus on Dec 10 and she had a couple of low grade temps.? BCx?s were negative, and u/a was negative.? CXR showed hypoexpanded lungs with NAD. I saw the patient on IMC.? She was unresponsive, with a grimace to painful stim, but no eye opening, no verbalizing.? RR 30, minimally labored.? Sat 92% on room air.? IV access was in her foot, and that was tenuous.? We transferred down to ICU.? Sedated her lightly for an LP.? I wasn?t happy with the combination of her AMS and her breathing, baudilio given that we needed to place a CVL for access, so we intubated the trachea.? A CVL was placed and she was vol resusc with D5W. Today, she?s on propofol 50ug, Fentanyl 100ug, and D5W 100cc/hr.? HR 91, BP 97/59.? On AC 14/450/30%/+5, RR is 14, ETCO2 27, Sat 96%.? CVBG this morning showed 7.38/36/-2.? PER, about 3-4mm.? No JVD at 30?.? Chest CTA.? Abd soft. LABORATORY DATA:? Below.? Notably, white count this morning steady at 15. ?Sodium this morning is 144.? Potassium 2.9.? BUN/creatinine are down to 35/1.6, glucose was 261. ?Lab analysis of last night?s lumbar puncture is negative so far. ?Last D-dimer on December 05 was less than 150. IMAGIN. MRI: The study redemonstrates abnormal FLAIR signal in the posterior thalami bilaterally, less extensive compared to the prior study. 2. Abdominal CT (done today at request of Dr. Fernandez):? The abdomen is unremarkable, other than an excess amount of stool especially in the rectum, suggesting fecal impaction.? However, the lung cuts demonstrate diffuse pulmonary infiltrates bilaterally that have impressive air bronchograms. IMPRESSION: 1. Underlying psychiatric disease requiring significant pharmacologic treatment. 2. Dehydration with rising renal indices. 3. Progressive hypernatremia secondary to progressive dehydration. 4. Progressive metabolic acidosis due to progressive dehydration. 5. Progressive encephalopathy (on top of underlying psychiatric disease) secondary to the above factors.? Gabapentin in the presence of worsening renal insufficiency is a further exacerbating factor.? Gabapentin is a very common cause of decreased mental status in hospitalized patients who develope renal insufficiency. 6. Bilat pulmonary infiltrates.? That is the real curious thing about this patient, for mult reasons:? Those infiltrates don?t look like COVID, in that they are so homogenous.? Furthermore, the air bronchograms are impressive, whereas air bronchograms are not typical of COVID pneumonia.? Thirdly, the patient currently has a Sat of 99% on 25% FiO2, with a spontaneous minute volume of 5.4 L, ETCO2 28.? That would be unheard of in a patient with diffuse bilat COVID infiltrates to that degree.? For that matter, the patient did not have a full chest CT, but the infiltrates look so diffuse and homogenous that there?s a good likelihood they involve most of both lungs.? There?s no kind of typical infectious pneumonia that looks like this that involves most of both lungs that would result in a near normal A-a gradient and a normal pCO2 with a minute vol of 5.4L. In that regard, maybe atypical pneumonia would be most likely. We'll start her on Zithromax. 7. Hypoxemic resp failure. Much better now. Should be extubatable tonight or tomorrow, if her MS permits. Critical care time (including extended chart rev): 70+ min. Critical Care Time (minutes): 70 Physical Exam Verdana 4l Vital Signs: Verdana 4d Verdana 4d Vital Signs: Verdana 4d Verdana 4Bd Last Vital Signs Verdana 4d Wire Coiner New 4d Wire Coiner New 4d Temp 97.4 F 12/11/21 08:00 Wire Coiner New 4d Pulse 89 12/11/21 09:00 Wire Coiner New 4d Resp 14 12/11/21 09:00 BP 100/60 12/11/21 09:00 Pulse Ox 97 12/11/21 09:00 Oxygen Flow Rate 4 11/29/21 11:52 BMI result Body Mass Index 43.0 Objective Data Labs CBC & Chem 7: 12/11/21 05:15 12/11/21 19:33 Labs: Laboratory Results - last 24 hr 12/10/21 12/10/21 12/10/21 11:14 11:53 12:00 WBC RBC Hgb Hct MCV MCH MCHC RDW Plt Count MPV Immature Gran % (Auto) Neut % (Auto) Lymph % (Auto) [place] % (Auto) Eos % (Auto) Baso % (Auto) Lymph # (Auto) [place] # (Auto) Eos # (Auto) Baso # (Auto) Abs Immat Gran (auto) Absolute Neuts (auto) Absolute Nucleated RBC Nucleated RBC % (auto) O2 Saturation ABG pH at Pt Temp ABG pH (Temp Correct) ABG pCO2 at Pt Temp ABG pCO2 (Temp Corrct ABG pO2 at Pt Temp ABG pO2 (Temp Correct ABG HCO3 ABG Base Excess (Actual) VBG pH VBG pCO2 VBG pO2 VBG HCO3 VBG O2 Saturation VBG Base Excess Sodium 158 H Potassium 3.8 Chloride 125 H Carbon Dioxide 14 L Anion Gap 23 H BUN 31 H Creatinine 1.44 H Estim Creat Clear Calc 57.1 Estimated GFR 42 POC Glucose 157 H Random Glucose 167 H Lactic Acid 3.6 H* Lactic Acid F/U @ 2Hr Lactic Acid F/U @ 4Hr Calcium 10.1 Magnesium Total Bilirubin Direct Bilirubin AST ALT Alkaline Phosphatase Lactate Dehydrogenase Total Creatine Kinase C-Reactive Protein Total Protein Albumin Urine Color Urine Appearance Urine pH Ur Specific [place] Urine Protein Urine Glucose (UA) Urine Ketones Urine Blood Urine Nitrite Ur Leukocyte Esterase Urine RBC Urine WBC Ur Squamous Epith Cells Ur Renal Epithelial Cell Amorphous Sediment Urine Bacteria Urine Mucus Urine Yeast Ur Random Sodium Urine Creatinine CSF Tube Number CSF Volume CSF Appearance CSF Color CSF WBC CSF RBC CSF Neutrophils CSF Lymphocytes CSF Appearance (b) CSF Glucose CSF Total Protein 12/10/21 12/10/21 12/10/21 15:11 15:11 16:24 WBC RBC Hgb Hct MCV MCH MCHC RDW Plt Count MPV Immature Gran % (Auto) Neut % (Auto) Lymph % (Auto) [place] % (Auto) Eos % (Auto) Baso % (Auto) Lymph # (Auto) [place] # (Auto) Eos # (Auto) Baso # (Auto) Abs Immat Gran (auto) Absolute Neuts (auto) Absolute Nucleated RBC Nucleated RBC % (auto) O2 Saturation ABG pH at Pt Temp ABG pH (Temp Correct) ABG pCO2 at Pt Temp ABG pCO2 (Temp Corrct ABG pO2 at Pt Temp ABG pO2 (Temp Correct ABG HCO3 ABG Base Excess (Actual) VBG pH VBG pCO2 VBG pO2 VBG HCO3 VBG O2 Saturation VBG Base Excess Sodium 160 H* Potassium 3.7 Chloride 126 H Carbon Dioxide 12 L Anion Gap 26 H BUN 37 H Creatinine 1.95 H Estim Creat Clear Calc 42.2 Estimated GFR 30 POC Glucose 182 H Random Glucose 197 H Lactic Acid Lactic Acid F/U @ 2Hr 3.1 H* Lactic Acid F/U @ 4Hr Calcium 10.4 H Magnesium Total Bilirubin Direct Bilirubin AST ALT Alkaline Phosphatase Lactate Dehydrogenase Total Creatine Kinase 415 H D C-Reactive Protein Total Protein Albumin Urine Color Urine Appearance Urine pH Ur Specific [place] Urine Protein Urine Glucose (UA) Urine Ketones Urine Blood Urine Nitrite Ur Leukocyte Esterase Urine RBC Urine WBC Ur Squamous Epith Cells Ur Renal Epithelial Cell Amorphous Sediment Urine Bacteria Urine Mucus Urine Yeast Ur Random Sodium Urine Creatinine CSF Tube Number CSF Volume CSF Appearance CSF Color CSF WBC CSF RBC CSF Neutrophils CSF Lymphocytes CSF Appearance (b) CSF Glucose CSF Total Protein 12/10/21 12/10/21 12/10/21 18:06 18:53 18:53 WBC RBC Hgb Hct MCV MCH MCHC RDW Plt Count MPV Immature Gran % (Auto) Neut % (Auto) Lymph % (Auto) [place] % (Auto) Eos % (Auto) Baso % (Auto) Lymph # (Auto) [place] # (Auto) Eos # (Auto) Baso # (Auto) Abs Immat Gran (auto) Absolute Neuts (auto) Absolute Nucleated RBC Nucleated RBC % (auto) O2 Saturation 94.0 ABG pH at Pt Temp 7.49 H ABG pH (Temp Correct) 7.47 H ABG pCO2 at Pt Temp 16 L* ABG pCO2 (Temp Corrct 17 L* ABG pO2 at Pt Temp 70 L ABG pO2 (Temp Correct 74 L ABG HCO3 12 L ABG Base Excess (Actual) -7.3 VBG pH VBG pCO2 VBG pO2 VBG HCO3 VBG O2 Saturation VBG Base Excess Sodium Cancelled Potassium Cancelled Chloride Cancelled Carbon Dioxide Cancelled Anion Gap Cancelled BUN Cancelled Creatinine Cancelled Estim Creat Clear Calc Cancelled Estimated GFR Cancelled POC Glucose Random Glucose Cancelled Lactic Acid Lactic Acid F/U @ 2Hr Lactic Acid F/U @ 4Hr Calcium Cancelled Magnesium Total Bilirubin Direct Bilirubin AST ALT Alkaline Phosphatase Lactate Dehydrogenase Total Creatine Kinase C-Reactive Protein Total Protein Albumin Urine Color DK YELLOW Urine Appearance CLOUDY Urine pH 5.5 Ur Specific [place] >= 1.030 H Urine Protein 2+ H Urine Glucose (UA) NEG Urine Ketones 15 Urine Blood 3+ H Urine Nitrite NEG Ur Leukocyte Esterase 1+ H Urine RBC 5-9 H Urine WBC 1-4 Ur Squamous Epith Cells 2+ Ur Renal Epithelial Cell 1+ Amorphous Sediment TRACE Urine Bacteria TRACE Urine Mucus 3+ Urine Yeast 3+ Ur Random Sodium Urine Creatinine CSF Tube Number CSF Volume CSF Appearance CSF Color CSF WBC CSF RBC CSF Neutrophils CSF Lymphocytes CSF Appearance (b) CSF Glucose CSF Total Protein 12/10/21 12/10/21 12/10/21 18:53 23:34 23:34 WBC RBC Hgb Hct MCV MCH MCHC RDW Plt Count MPV Immature Gran % (Auto) Neut % (Auto) Lymph % (Auto) [place] % (Auto) Eos % (Auto) Baso % (Auto) Lymph # (Auto) [place] # (Auto) Eos # (Auto) Baso # (Auto) Abs Immat Gran (auto) Absolute Neuts (auto) Absolute Nucleated RBC Nucleated RBC % (auto) O2 Saturation ABG pH at Pt Temp ABG pH (Temp Correct) ABG pCO2 at Pt Temp ABG pCO2 (Temp Corrct ABG pO2 at Pt Temp ABG pO2 (Temp Correct ABG HCO3 ABG Base Excess (Actual) VBG pH VBG pCO2 VBG pO2 VBG HCO3 VBG O2 Saturation VBG Base Excess Sodium Potassium Chloride Carbon Dioxide Anion Gap BUN Creatinine Estim Creat Clear Calc Estimated GFR POC Glucose Random Glucose Lactic Acid Lactic Acid F/U @ 2Hr Lactic Acid F/U @ 4Hr Calcium Magnesium Total Bilirubin Direct Bilirubin AST ALT Alkaline Phosphatase Lactate Dehydrogenase Total Creatine Kinase C-Reactive Protein Total Protein Albumin Urine Color Urine Appearance Urine pH Ur Specific [place] Urine Protein Urine Glucose (UA) Urine Ketones Urine Blood Urine Nitrite Ur Leukocyte Esterase Urine RBC Urine WBC Ur Squamous Epith Cells Ur Renal Epithelial Cell Amorphous Sediment Urine Bacteria Urine Mucus Urine Yeast Ur Random Sodium Cancelled Urine Creatinine Cancelled CSF Tube Number 2 1 CSF Volume 1.5 CSF Appearance CLEAR CSF Color COLORLESS CSF WBC 0 CSF RBC 29 CSF Neutrophils 11 CSF Lymphocytes 89 CSF Appearance (b) Clear, Colorless CSF Glucose 113 CSF Total Protein 22.9 12/10/21 12/10/21 12/10/21 23:35 23:35 23:35 WBC 16.1 H RBC 4.89 Hgb 13.6 Hct 41.6 MCV 85.1 MCH 27.8 MCHC 32.7 RDW 14.9 Plt Count 564 H MPV 10.7 Immature Gran % (Auto) 0.9 H Neut % (Auto) 76.5 H Lymph % (Auto) 14.3 L [place] % (Auto) 7.9 Eos % (Auto) 0.2 Baso % (Auto) 0.2 Lymph # (Auto) 2.3 [place] # (Auto) 1.3 H Eos # (Auto) 0.0 Baso # (Auto) 0.0 Abs Immat Gran (auto) 0.14 H Absolute Neuts (auto) 12.3 H Absolute Nucleated RBC 0.040 H Nucleated RBC % (auto) 0.2 O2 Saturation ABG pH at Pt Temp ABG pH (Temp Correct) ABG pCO2 at Pt Temp ABG pCO2 (Temp Corrct ABG pO2 at Pt Temp ABG pO2 (Temp Correct ABG HCO3 ABG Base Excess (Actual) VBG pH VBG pCO2 VBG pO2 VBG HCO3 VBG O2 Saturation VBG Base Excess Sodium 152 H Potassium 3.3 Chloride 119 H Carbon Dioxide 16 L Anion Gap 20 BUN 40 H Creatinine 2.09 H Estim Creat Clear Calc 39.4 Estimated GFR 27 POC Glucose Random Glucose 157 H Lactic Acid Lactic Acid F/U @ 2Hr Lactic Acid F/U @ 4Hr 1.9 Calcium 9.2 D Magnesium Total Bilirubin 1.1 H Direct Bilirubin AST 43 H ALT 44 H Alkaline Phosphatase 139 H Lactate Dehydrogenase Total Creatine Kinase C-Reactive Protein Total Protein 6.8 Albumin 3.8 Urine Color Urine Appearance Urine pH Ur Specific [place] Urine Protein Urine Glucose (UA) Urine Ketones Urine Blood Urine Nitrite Ur Leukocyte Esterase Urine RBC Urine WBC Ur Squamous Epith Cells Ur Renal Epithelial Cell Amorphous Sediment Urine Bacteria Urine Mucus Urine Yeast Ur Random Sodium Urine Creatinine CSF Tube Number CSF Volume CSF Appearance CSF Color CSF WBC CSF RBC CSF Neutrophils CSF Lymphocytes CSF Appearance (b) CSF Glucose CSF Total Protein 12/10/21 12/11/21 12/11/21 23:51 05:15 05:15 WBC 15.4 H RBC 4.58 Hgb 12.9 Hct 39.3 MCV 85.8 MCH 28.2 MCHC 32.8 RDW 15.0 Plt Count 573 H MPV 10.8 Immature Gran % (Auto) 0.7 H Neut % (Auto) 79.4 H Lymph % (Auto) 12.4 L [place] % (Auto) 6.3 Eos % (Auto) 0.9 Baso % (Auto) 0.3 Lymph # (Auto) 1.9 [place] # (Auto) 1.0 Eos # (Auto) 0.1 Baso # (Auto) 0.1 Abs Immat Gran (auto) 0.11 H Absolute Neuts (auto) 12.3 H Absolute Nucleated RBC 0.020 H Nucleated RBC % (auto) 0.1 O2 Saturation ABG pH at Pt Temp ABG pH (Temp Correct) ABG pCO2 at Pt Temp ABG pCO2 (Temp Corrct ABG pO2 at Pt Temp ABG pO2 (Temp Correct ABG HCO3 ABG Base Excess (Actual) VBG pH 7.47 H VBG pCO2 23 VBG pO2 36 VBG HCO3 17 L VBG O2 Saturation 62.0 VBG Base Excess -4.5 Sodium Cancelled Potassium Cancelled Chloride Cancelled Carbon Dioxide Cancelled Anion Gap Cancelled BUN Cancelled Creatinine Cancelled Estim Creat Clear Calc Cancelled Estimated GFR Cancelled POC Glucose Random Glucose Cancelled Lactic Acid Lactic Acid F/U @ 2Hr Lactic Acid F/U @ 4Hr Calcium Cancelled Magnesium Total Bilirubin Direct Bilirubin AST ALT Alkaline Phosphatase Lactate Dehydrogenase Total Creatine Kinase C-Reactive Protein Total Protein Albumin Urine Color Urine Appearance Urine pH Ur Specific [place] Urine Protein Urine Glucose (UA) Urine Ketones Urine Blood Urine Nitrite Ur Leukocyte Esterase Urine RBC Urine WBC Ur Squamous Epith Cells Ur Renal Epithelial Cell Amorphous Sediment Urine Bacteria Urine Mucus Urine Yeast Ur Random Sodium Urine Creatinine CSF Tube Number CSF Volume CSF Appearance CSF Color CSF WBC CSF RBC CSF Neutrophils CSF Lymphocytes CSF Appearance (b) CSF Glucose CSF Total Protein 12/11/21 12/11/21 12/11/21 05:15 05:15 05:24 WBC 15.1 H RBC 4.59 Hgb 12.9 Hct 39.2 MCV 85.4 MCH 28.1 MCHC 32.9 RDW 15.0 Plt Count 562 H MPV 10.7 Immature Gran % (Auto) Neut % (Auto) Lymph % (Auto) [place] % (Auto) Eos % (Auto) Baso % (Auto) Lymph # (Auto) [place] # (Auto) Eos # (Auto) Baso # (Auto) Abs Immat Gran (auto) Absolute Neuts (auto) Absolute Nucleated RBC 0.030 H Nucleated RBC % (auto) 0.2 O2 Saturation ABG pH at Pt Temp ABG pH (Temp Correct) ABG pCO2 at Pt Temp ABG pCO2 (Temp Corrct ABG pO2 at Pt Temp ABG pO2 (Temp Correct ABG HCO3 ABG Base Excess (Actual) VBG pH 7.46 H VBG pCO2 27 VBG pO2 38 VBG HCO3 19 L VBG O2 Saturation 63.0 VBG Base Excess -2.4 Sodium 148 H Potassium 2.9 L Chloride 112 H Carbon Dioxide 19 L Anion Gap 20 BUN 39 H Creatinine 1.83 H Estim Creat Clear Calc 45.0 Estimated GFR 32 POC Glucose Random Glucose 303 H Lactic Acid Lactic Acid F/U @ 2Hr Lactic Acid F/U @ 4Hr Calcium 9.0 Magnesium 2.4 Total Bilirubin 1.2 H Direct Bilirubin 0.8 H AST 31 ALT 41 H Alkaline Phosphatase 127 H Lactate Dehydrogenase 571 H Total Creatine Kinase C-Reactive Protein 1.71 H Total Protein 6.5 Albumin 3.7 Urine Color Urine Appearance Urine pH Ur Specific [place] Urine Protein Urine Glucose (UA) Urine Ketones Urine Blood Urine Nitrite Ur Leukocyte Esterase Urine RBC Urine WBC Ur Squamous Epith Cells Ur Renal Epithelial Cell Amorphous Sediment Urine Bacteria Urine Mucus Urine Yeast Ur Random Sodium Urine Creatinine CSF Tube Number CSF Volume CSF Appearance CSF Color CSF WBC CSF RBC CSF Neutrophils CSF Lymphocytes CSF Appearance (b) CSF Glucose CSF Total Protein 12/11/21 12/11/21 07:25 08:05 WBC RBC Hgb Hct MCV MCH MCHC RDW Plt Count MPV Immature Gran % (Auto) Neut % (Auto) Lymph % (Auto) [place] % (Auto) Eos % (Auto) Baso % (Auto) Lymph # (Auto) [place] # (Auto) Eos # (Auto) Baso # (Auto) Abs Immat Gran (auto) Absolute Neuts (auto) Absolute Nucleated RBC Nucleated RBC % (auto) O2 Saturation ABG pH at Pt Temp ABG pH (Temp Correct) ABG pCO2 at Pt Temp ABG pCO2 (Temp Corrct ABG pO2 at Pt Temp ABG pO2 (Temp Correct ABG HCO3 ABG Base Excess (Actual) VBG pH VBG pCO2 VBG pO2 VBG HCO3 VBG O2 Saturation VBG Base Excess Sodium 144 Potassium 2.9 L Chloride 112 H Carbon Dioxide 15 L Anion Gap 20 BUN 35 H Creatinine 1.68 H Estim Creat Clear Calc 49.0 Estimated GFR 35 POC Glucose 249 H Random Glucose 261 H Lactic Acid Lactic Acid F/U @ 2Hr Lactic Acid F/U @ 4Hr Calcium 8.7 Magnesium Total Bilirubin Direct Bilirubin AST ALT Alkaline Phosphatase Lactate Dehydrogenase Total Creatine Kinase C-Reactive Protein Total Protein Albumin Urine Color Urine Appearance Urine pH Ur Specific [place] Urine Protein Urine Glucose (UA) Urine Ketones Urine Blood Urine Nitrite Ur Leukocyte Esterase Urine RBC Urine WBC Ur Squamous Epith Cells Ur Renal Epithelial Cell Amorphous Sediment Urine Bacteria Urine Mucus Urine Yeast Ur Random Sodium Urine Creatinine CSF Tube Number CSF Volume CSF Appearance CSF Color CSF WBC CSF RBC CSF Neutrophils CSF Lymphocytes CSF Appearance (b) CSF Glucose CSF Total Protein Microbiology Microbiology Results: Microbiology 12/10/21 23:34 Cerebrospinal Fluid Gram Stain - Final 12/10/21 23:34 Cerebrospinal Fluid CSF Examination - Final 12/10/21 23:34 Cerebrospinal Fluid Fluid Description - Final 12/04/21 11:43 Blood - Venous Blood Culture - Final No growth after 5 days. 12/04/21 11:43 Blood - Venous Blood Culture - Final No growth after 5 days. 11/29/21 14:01 Blood - Venous Blood Culture - Final No growth after 5 days. 11/29/21 13:51 Blood - Venous Blood Culture - Final No growth after 5 days. 11/29/21 Unknown Urine clean catch - Urine [place] top Urine Culture - Final Quality Stroke Does the patient have a stroke diagnosis?: No VTE Prior VTE?: No VTE Risk Level:: Medical - moderate - high VTE Device Contraindication: Treatment Not Indicated VTE Drug Contraindication: N/A - Med Ordered Critical Care Time Critical Care Time (minutes): 60
[2021-12-11 10:44] LABS: Phosphorus 3.9 mg/dL (2.7-4.5)
[2021-12-11 11:15] LABS: Glucose, Whole Blood 149 mg/dL (60-115)
[2021-12-11 12:39] LABS: Anion Gap 17 (12-20); Blood Urea Nitrogen 33 mg/dL (9-16); Calcium 8.7 mg/dL (8.4-10.2); Carbon Dioxide 22 mmol/L (22-29); Chloride 112 mmol/L (96-108); Creatinine Clr Calc Pharmacy 51.8; Estimated Glomerular Filt Rate 38; Glucose Random 162 mg/dL (60-115); Potassium 3.6 mmol/L (3.3-5.1); Sodium 147 mmol/L (135-145)
[2021-12-11 13:56] LABS: Venous Blood Gas Refer to POC result
[2021-12-11 13:57] LABS: VBG Base Excess -2.8 mmol/L; VBG HCO3 21 mmol/L (22-26); VBG pCO2 36 mmHg; VBG pH 7.38 (7.32-7.43); VBG pO2 51 mmHg
[2021-12-11] MEDS: propofoL 1,000 MG/100 ML VIAL 23.18 MG IVCONT ×2 (14:23→18:26)
[2021-12-11] MEDS: Potassium Chloride Packet 20 MEQ PACKET 40 MEQ G-TUBE ×2 (14:24→17:15)
[2021-12-11 14:35] LABS: Procalcitonin 3.43 ng/mL
--- NOTE | 2021-12-11 14:40 | MHC.CM.PN ---
Pt now in ICU on ventilatory support secondary to COVID. Original d/c plan was a return to home with 04/06 family / [employer]IM[employer] CYTOLOGIST care. CM to follow for changes
[2021-12-11 16:31] LABS: Glucose, Whole Blood 199 mg/dL (60-115)
--- NOTE | 2021-12-11 16:52 | W.PM.CCHP ---
Procedures Date of Service Date of Service: 12/10/21 Lumbar Puncture Lumbar Puncture Comments: PROCEDURE:? Diagnostic lumbar puncture. INDICATION:? Altered mental status, leukocytosis, fever. ANESTHESIA:? Local anesthesia, propofol, ketamine The patient is a 31-year-old woman with altered mental status.? Negative MRI.? On no sedatives. Referred to ICU for ? sepsis, resp failure, metabolic acidosis, hypernatremia. The procedure was done in the sitting position.? After prepping the back, local anesthesia with 1% lidocaine was infiltrated in the L3-L4 interspace.? A 22 gauge Quicke spinal needle was advanced in the midline and smoothly into clear CSF on the third pass, without heme or obvious paresthesia. Opening pressure measured 26 cm. Following that 4 tubes of CSF were drawn, 1-2 cc per tube.? Clear CSF.? No gross difference between tube 1 and tube 4.? Following that, the needle was withdrawn and the patient replaced supine. The patient tolerated the procedure well with no complications. Specimens to Micro, chemistry, and hematology. Consent for Procedure: Emergent-no informed consent obtained
[2021-12-11] MEDS: Dextrose 5 % 1,000 ML 75 ML IVCONT (17:16)
[2021-12-11 19:40] LABS: VBG Base Excess -5.8 mmol/L; VBG HCO3 18 mmol/L (22-26); VBG pCO2 32 mmHg; VBG pH 7.35 (7.32-7.43); VBG pO2 58 mmHg
[2021-12-11 19:48] LABS: Venous Blood Gas Refer to POC result
[2021-12-11 19:55] LABS: Lactic Acid 1.2 mmol/L (0.5-2.0)
[2021-12-11 19:57] LABS: D Dimer High Sensitivity < 150 NG/ML
[2021-12-11 20:06] LABS: B Type Natriuretic Peptide < 10 pg/mL (<100)
[2021-12-11 20:12] LABS: Anion Gap 17 (12-20); Blood Urea Nitrogen 27 mg/dL (9-16); Calcium 8.6 mg/dL (8.4-10.2); Carbon Dioxide 18 mmol/L (22-29); Chloride 115 mmol/L (96-108); Creatinine Clr Calc Pharmacy 66.3; Estimated Glomerular Filt Rate 50; Glucose Random 185 mg/dL (60-115); Potassium 5.1 mmol/L (3.3-5.1); Sodium 145 mmol/L (135-145)
[2021-12-11 20:15] LABS: Lactate Dehydrogenase 443 U/L (122-220)
[2021-12-11] MEDS: Pravastatin Sodium 20 MG TABLET PO (20:19)
[2021-12-11] MEDS: Lactulose 20 GM/30 ML SOLUTION 40 GM PO (20:19)
[2021-12-11] MEDS: Melatonin 3 MG TABLET 6 MG PO (20:19)
[2021-12-11] MEDS: Insulin Glargine,Hum.rec.anlog 100 UNIT/ML 10 ML VIAL 14 UNIT SUBCUT (20:22)
[2021-12-11 20:45] LABS: Glucose, Whole Blood 156 mg/dL (60-115)
[2021-12-11 21:09] LABS: Ferritin 5011 ng/mL (10-122)
[2021-12-11] MEDS: Azithromycin 500 MG in 0.9 % Sodium Chloride 250 ML 125 MG IV (21:10)
--- NOTE | 2021-12-11 21:16 | PC.RT ---
Extubated to 3L [place]; sx above cuff pre extubation. Pt noted to have no cough post extubation.
[2021-12-11] MEDS: Mineral OiL enema 133 ML ENEMA PR (22:43)
[2021-12-12] VITALS (28 sets, daily range): BP systolic 84–152; BP diastolic 50–94; PULSE 66–140; RESP 13–38; TEMP 35.1–36.8; O2SAT 80–100; BMI 43.0
[2021-12-12] MEDS: Piperacillin Sodium/Tazobactam 3.375 GM in 0.9 % Sodium Chloride 50 ML IV ×4 (03:56→20:42)
[2021-12-12 05:46] LABS: MANUAL DIFF FLAG NO
[2021-12-12 05:47] LABS: VBG Base Excess -4.8 mmol/L; VBG HCO3 19 mmol/L (22-26); VBG pCO2 32 mmHg; VBG pH 7.37 (7.32-7.43); VBG pO2 41 mmHg
[2021-12-12 05:48] LABS: Venous Blood Gas Refer to POC result
[2021-12-12 05:51] LABS: Basophils Percent Auto 0.3 % (0-2); Eosinophils Absolute Auto 0.5 X10*3/uL (0.0-0.4); Eosinophils Percent Auto 3.5 % (0-4); Hemoglobin 11.1 g/dl (12.0-16.0); Imm Gran Abs Auto 0.15 X10*3/uL (0.00-0.03); Imm Gran Pct Auto 1.1 % (0.0-0.4); Lymphocytes Absolute Auto 1.2 X10*3/uL (1.2-4.9); Lymphocytes Percent Auto 9.2 % (20-40); Mean Corpuscular HGB Conc 31.7 g/dl (31.0-35.0); Mean Corpuscular Hemoglobin 27.7 pg (27.0-33.0); Mean Corpuscular Volume 87.3 fL (80.0-98.0); Mean Platelet Volume 10.5 fL (9.4-12.3); Monocytes Percent Auto 7.5 % (2-11); NRBC Pct Auto 0.2 /100WBC (0.0-0.2); Neutrophils Absolute Auto 10.5 x10*3/uL (2.0-8.3); Neutrophils Percent Auto 78.4 % (45-73); Platelet Count 431 X10*3/uL (160-400); Red Blood Count 4.01 X10*6/uL (4.20-5.50); Red Cell Distribution Width 14.7 % (11.0-16.0); White Blood Count 13.4 X10*3/uL (4.8-10.8)
[2021-12-12 06:19] LABS: Alanine Aminotransferase 32 U/L (0-31); Albumin Level 3.4 g/dL (3.5-5.0); Alkaline Phosphatase 113 U/L (39-117); Anion Gap 13 (12-20); Aspartate Amino Transferase 22 U/L (5-31); Bilirubin Total 0.9 mg/dL (0.0-1.0); Blood Urea Nitrogen 21 mg/dL (9-16); Calcium 8.7 mg/dL (8.4-10.2); Carbon Dioxide 21 mmol/L (22-29); Chloride 118 mmol/L (96-108); Creatinine Clr Calc Pharmacy 70.9; Estimated Glomerular Filt Rate 54; Glucose Random 210 mg/dL (60-115); Magnesium 2.3 mg/dL (1.6-2.6); Phosphorus 2.9 mg/dL (2.7-4.5); Sodium 148 mmol/L (135-145); Total Protein 5.7 g/dL (6.5-8.0)
[2021-12-12] MEDS: Dextrose 5 % 1,000 ML 75 ML IVCONT (06:19)
[2021-12-12] MEDS: Heparin Sodium,Porcine 5,000 UNIT/ML VIAL 5000 UNIT SUBCUT ×3 (06:20→22:44)
[2021-12-12 07:51] LABS: Glucose, Whole Blood 190 mg/dL (60-115)
[2021-12-12] MEDS: 0.9 % Sodium Chloride Flush 3 ML SYRINGE IVFLUSH ×2 (08:56→14:45)
[2021-12-12] MEDS: Insulin Lispro 100 UNIT/ML 3 ML VIAL SUBCUT ×2 (08:56→14:41)
[2021-12-12] MEDS: Folic Acid 1 MG in 0.9 % Sodium Chloride 50 ML 100.4 MG IV (09:38)
[2021-12-12] MEDS: Chlorhexidine Gluc Oral Rinse 15 ML MOUTHWASH BUCCAL (09:38)
--- NOTE | 2021-12-12 11:24 | P.PNNP_ITS ---
Subjective Subjective Date of Service: 12/12/21 Interval history: Events noted. All recent data reviewed Physical Exam Verdana 4l Vital Signs: Verdana 4d Verdana 4d Vital Signs: Verdana 4d Verdana 4Bd Last Vital Signs Verdana 4d Welder Fitter Arc New 4d Enrico New 4d Temp 97.8 F 12/12/21 08:00 Welder Fitter Arc New 4d Pulse 110 H 12/12/21 11:00 Welder Fitter Arc New 4d Resp 35 H 12/12/21 11:00 BP 109/87 12/12/21 11:00 Pulse Ox 95 12/12/21 11:00 Oxygen Flow Rate 4 11/29/21 11:52 BMI result Body Mass Index 43.0 Const: General: no acute distress Eyes: EOM: EOMs intact bilaterally Resp: Auscultation: diminished lung sounds Cardio: Rate: regular rate GI: Palpation (GI): Soft to palpation Neuro: General: moves all extremities Objective Data Labs CBC & Chem 7: 12/12/21 05:35 12/12/21 05:35 Labs: Laboratory Results - last 24 hr 12/11/21 12/11/21 12/11/21 05:15 11:46 13:37 WBC RBC Hgb Hct MCV MCH MCHC RDW Plt Count MPV Immature Gran % (Auto) Neut % (Auto) Lymph % (Auto) [place] % (Auto) Eos % (Auto) Baso % (Auto) Lymph # (Auto) [place] # (Auto) Eos # (Auto) Baso # (Auto) Abs Immat Gran (auto) Absolute Neuts (auto) Absolute Nucleated RBC Nucleated RBC % (auto) D-Dimer High Sensitivty VBG pH 7.38 VBG pCO2 36 VBG pO2 51 VBG HCO3 21 L VBG O2 Saturation 78.0 VBG Base Excess -2.8 Sodium 147 H Potassium 3.6 D Chloride 112 H Carbon Dioxide 22 Anion Gap 17 BUN 33 H Creatinine 1.59 H Estim Creat Clear Calc 51.8 Estimated GFR 38 POC Glucose Random Glucose 162 H Lactic Acid Calcium 8.7 Phosphorus Magnesium Ferritin Total Bilirubin AST ALT Alkaline Phosphatase Lactate Dehydrogenase B-Natriuretic Peptide Total Protein Albumin Procalcitonin 3.43 12/11/21 12/11/21 12/11/21 16:26 19:33 19:33 WBC RBC Hgb Hct MCV MCH MCHC RDW Plt Count MPV Immature Gran % (Auto) Neut % (Auto) Lymph % (Auto) [place] % (Auto) Eos % (Auto) Baso % (Auto) Lymph # (Auto) [place] # (Auto) Eos # (Auto) Baso # (Auto) Abs Immat Gran (auto) Absolute Neuts (auto) Absolute Nucleated RBC Nucleated RBC % (auto) D-Dimer High Sensitivty VBG pH VBG pCO2 VBG pO2 VBG HCO3 VBG O2 Saturation VBG Base Excess Sodium 145 Potassium 5.1 D Chloride 115 H Carbon Dioxide 18 L Anion Gap 17 BUN 27 H Creatinine 1.24 Estim Creat Clear Calc 66.3 Estimated GFR 50 POC Glucose 199 H Random Glucose 185 H Lactic Acid 1.2 Calcium 8.6 Phosphorus Magnesium Ferritin 5011 H Total Bilirubin AST ALT Alkaline Phosphatase Lactate Dehydrogenase 443 H B-Natriuretic Peptide Total Protein Albumin Procalcitonin 12/11/21 12/11/21 12/11/21 19:33 19:33 19:34 WBC RBC Hgb Hct MCV MCH MCHC RDW Plt Count MPV Immature Gran % (Auto) Neut % (Auto) Lymph % (Auto) [place] % (Auto) Eos % (Auto) Baso % (Auto) Lymph # (Auto) [place] # (Auto) Eos # (Auto) Baso # (Auto) Abs Immat Gran (auto) Absolute Neuts (auto) Absolute Nucleated RBC Nucleated RBC % (auto) D-Dimer High Sensitivty < 150 VBG pH 7.35 VBG pCO2 32 VBG pO2 58 VBG HCO3 18 L VBG O2 Saturation 87.0 VBG Base Excess -5.8 Sodium Potassium Chloride Carbon Dioxide Anion Gap BUN Creatinine Estim Creat Clear Calc Estimated GFR POC Glucose Random Glucose Lactic Acid Calcium Phosphorus Magnesium Ferritin Total Bilirubin AST ALT Alkaline Phosphatase Lactate Dehydrogenase B-Natriuretic Peptide < 10 Total Protein Albumin Procalcitonin 12/11/21 12/12/21 12/12/21 20:32 05:35 05:35 WBC 13.4 H RBC 4.01 L Hgb 11.1 L Hct 35.0 L MCV 87.3 MCH 27.7 MCHC 31.7 RDW 14.7 Plt Count 431 H MPV 10.5 Immature Gran % (Auto) 1.1 H Neut % (Auto) 78.4 H Lymph % (Auto) 9.2 L [place] % (Auto) 7.5 Eos % (Auto) 3.5 Baso % (Auto) 0.3 Lymph # (Auto) 1.2 [place] # (Auto) 1.0 Eos # (Auto) 0.5 H Baso # (Auto) 0.0 Abs Immat Gran (auto) 0.15 H Absolute Neuts (auto) 10.5 H Absolute Nucleated RBC 0.030 H Nucleated RBC % (auto) 0.2 D-Dimer High Sensitivty VBG pH VBG pCO2 VBG pO2 VBG HCO3 VBG O2 Saturation VBG Base Excess Sodium 148 H Potassium 4.0 D Chloride 118 H Carbon Dioxide 21 L Anion Gap 13 BUN 21 H Creatinine 1.16 Estim Creat Clear Calc 70.9 Estimated GFR 54 POC Glucose 156 H Random Glucose 210 H Lactic Acid Calcium 8.7 Phosphorus 2.9 Magnesium 2.3 Ferritin Total Bilirubin 0.9 AST 22 ALT 32 H Alkaline Phosphatase 113 Lactate Dehydrogenase B-Natriuretic Peptide Total Protein 5.7 L Albumin 3.4 L Procalcitonin 12/12/21 12/12/21 05:39 07:44 WBC RBC Hgb Hct MCV MCH MCHC RDW Plt Count MPV Immature Gran % (Auto) Neut % (Auto) Lymph % (Auto) [place] % (Auto) Eos % (Auto) Baso % (Auto) Lymph # (Auto) [place] # (Auto) Eos # (Auto) Baso # (Auto) Abs Immat Gran (auto) Absolute Neuts (auto) Absolute Nucleated RBC Nucleated RBC % (auto) D-Dimer High Sensitivty VBG pH 7.37 VBG pCO2 32 VBG pO2 41 VBG HCO3 19 L VBG O2 Saturation 73.0 VBG Base Excess -4.8 Sodium Potassium Chloride Carbon Dioxide Anion Gap BUN Creatinine Estim Creat Clear Calc Estimated GFR POC Glucose 190 H Random Glucose Lactic Acid Calcium Phosphorus Magnesium Ferritin Total Bilirubin AST ALT Alkaline Phosphatase Lactate Dehydrogenase B-Natriuretic Peptide Total Protein Albumin Procalcitonin Microbiology Microbiology Results: Microbiology 12/10/21 Unknown Urine Catheterized - Ekrn Catheter Urine Culture - Final 12/10/21 23:34 Cerebrospinal Fluid Gram Stain - Final 12/10/21 23:34 Cerebrospinal Fluid CSF Examination - Final 12/10/21 23:34 Cerebrospinal Fluid Fluid Description - Final 12/10/21 23:34 Cerebrospinal Fluid CSF Culture - Preliminary No growth after 1 day 12/10/21 11:53 Blood - Subclavian Blood Culture - Preliminary No growth after 24 hours. 12/10/21 11:53 Blood - Subclavian Blood Culture - Preliminary No growth after 24 hours. 12/04/21 11:43 Blood - Venous Blood Culture - Final No growth after 5 days. 12/04/21 11:43 Blood - Venous Blood Culture - Final No growth after 5 days. 11/29/21 14:01 Blood - Venous Blood Culture - Final No growth after 5 days. 11/29/21 13:51 Blood - Venous Blood Culture - Final No growth after 5 days. 11/29/21 Unknown Urine clean catch - Urine [place] top Urine Culture - Final Procedures Date of Service Date of Service: 12/12/21 Assessment & Plan Assessment and plan (1) Acute kidney injury: Status: Acute Assessment and Plan: Acute Kidney Injury due to compromise in renal perfusion Had been hypernatremic. Serum sodium stable with supportive care Renal functions stable as well. C/W rest of current management Time Spent With Patient Time: Total time spent is greater than 50% in coordination of care (as documented) at patient's floor/unit and/or counseling patient: Progress Note: Quality Stroke Does the patient have a stroke diagnosis?: No
[2021-12-12 11:58] LABS: Glucose, Whole Blood 301 mg/dL (60-115)
[2021-12-12] MEDS: Rocuronium Bromide 50 MG/5 ML VIAL IVPUSH (13:25)
[2021-12-12] MEDS: propofoL 200 MG/20 ML VIAL 100 MG IVPUSH (13:25)
[2021-12-12] MEDS: propofoL 1,000 MG/100 ML VIAL 11.59 MG IVCONT ×2 (13:26→20:23)
[2021-12-12] MEDS: metroNIDAZOLE/NS 500 MG/100 ML PIGGYBACK 100 MG IV ×2 (14:42→20:41)
[2021-12-12] MEDS: Doxycycline Hyclate 100 MG in 0.9 % Sodium Chloride 250 ML 166.67 MG IV (14:42)
[2021-12-12] MEDS: methylPREDNISolone Sod Succ 1,000 MG in 0.9 % Sodium Chloride 50 ML 66 MG IV (14:42)
[2021-12-12] MEDS: Sodium Chloride 0.45 % 1,000 ML 100 ML IVCONT ×2 (14:43→22:43)
[2021-12-12 16:31] LABS: Glucose, Whole Blood 149 mg/dL (60-115)
--- NOTE | 2021-12-12 17:11 | P.PNCC_ITS ---
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 and also is 4 months status post last rituximab infusion she clearly is immunosuppressed so there are concerns for opportunistic infection that are being covered as well pending results of sputum Critical Care Time (minutes): 60 Physical Exam Verdana 4l Vital Signs: Verdana 4d Verdana 4d Vital Signs: Verdana 4d Verdana 4Bd Last Vital Signs Verdana 4d Traffic Operations Manager New 4d Traffic Operations Manager New 4d Temp 98.2 F 12/12/21 15:19 Traffic Operations Manager New 4d Pulse 91 12/12/21 17:00 Traffic Operations Manager New 4d Resp 18 12/12/21 17:00 BP 87/50 L 12/12/21 17:00 Pulse Ox 99 12/12/21 17:00 Oxygen Flow Rate 4 11/29/21 11:52 BMI result Body Mass Index 43.0 obtunded and encephalopathic but nonfocal neurologically bedside echo with normal LV and RV function no primary valve or pericardial disease chest x-ray with left lower lobe atelectasis elevated left hemidiaphragm as a manifestation scattered bilateral infiltrates abdomen benign Objective Data Labs CBC & Chem 7: 12/13/21 04:50 12/13/21 04:50 Labs: Laboratory Results - last 24 hr 12/11/21 12/11/21 12/11/21 19:33 19:33 19:33 WBC RBC Hgb Hct MCV MCH MCHC RDW Plt Count MPV Immature Gran % (Auto) Neut % (Auto) Lymph % (Auto) [place] % (Auto) Eos % (Auto) Baso % (Auto) Lymph # (Auto) [place] # (Auto) Eos # (Auto) Baso # (Auto) Abs Immat Gran (auto) Absolute Neuts (auto) Absolute Nucleated RBC Nucleated RBC % (auto) D-Dimer High Sensitivty VBG pH VBG pCO2 VBG pO2 VBG HCO3 VBG O2 Saturation VBG Base Excess Sodium 145 Potassium 5.1 D Chloride 115 H Carbon Dioxide 18 L Anion Gap 17 BUN 27 H Creatinine 1.24 Estim Creat Clear Calc 66.3 Estimated GFR 50 POC Glucose Random Glucose 185 H Lactic Acid 1.2 Calcium 8.6 Phosphorus Magnesium Ferritin 5011 H Total Bilirubin AST ALT Alkaline Phosphatase Lactate Dehydrogenase 443 H B-Natriuretic Peptide < 10 Total Protein Albumin 12/11/21 12/11/21 12/11/21 19:33 19:34 20:32 WBC RBC Hgb Hct MCV MCH MCHC RDW Plt Count MPV Immature Gran % (Auto) Neut % (Auto) Lymph % (Auto) [place] % (Auto) Eos % (Auto) Baso % (Auto) Lymph # (Auto) [place] # (Auto) Eos # (Auto) Baso # (Auto) Abs Immat Gran (auto) Absolute Neuts (auto) Absolute Nucleated RBC Nucleated RBC % (auto) D-Dimer High Sensitivty < 150 VBG pH 7.35 VBG pCO2 32 VBG pO2 58 VBG HCO3 18 L VBG O2 Saturation 87.0 VBG Base Excess -5.8 Sodium Potassium Chloride Carbon Dioxide Anion Gap BUN Creatinine Estim Creat Clear Calc Estimated GFR POC Glucose 156 H Random Glucose Lactic Acid Calcium Phosphorus Magnesium Ferritin Total Bilirubin AST ALT Alkaline Phosphatase Lactate Dehydrogenase B-Natriuretic Peptide Total Protein Albumin 12/12/21 12/12/21 12/12/21 05:35 05:35 05:39 WBC 13.4 H RBC 4.01 L Hgb 11.1 L Hct 35.0 L MCV 87.3 MCH 27.7 MCHC 31.7 RDW 14.7 Plt Count 431 H MPV 10.5 Immature Gran % (Auto) 1.1 H Neut % (Auto) 78.4 H Lymph % (Auto) 9.2 L [place] % (Auto) 7.5 Eos % (Auto) 3.5 Baso % (Auto) 0.3 Lymph # (Auto) 1.2 [place] # (Auto) 1.0 Eos # (Auto) 0.5 H Baso # (Auto) 0.0 Abs Immat Gran (auto) 0.15 H Absolute Neuts (auto) 10.5 H Absolute Nucleated RBC 0.030 H Nucleated RBC % (auto) 0.2 D-Dimer High Sensitivty VBG pH 7.37 VBG pCO2 32 VBG pO2 41 VBG HCO3 19 L VBG O2 Saturation 73.0 VBG Base Excess -4.8 Sodium 148 H Potassium 4.0 D Chloride 118 H Carbon Dioxide 21 L Anion Gap 13 BUN 21 H Creatinine 1.16 Estim Creat Clear Calc 70.9 Estimated GFR 54 POC Glucose Random Glucose 210 H Lactic Acid Calcium 8.7 Phosphorus 2.9 Magnesium 2.3 Ferritin Total Bilirubin 0.9 AST 22 ALT 32 H Alkaline Phosphatase 113 Lactate Dehydrogenase B-Natriuretic Peptide Total Protein 5.7 L Albumin 3.4 L 12/12/21 12/12/21 12/12/21 07:44 11:47 16:25 WBC RBC Hgb Hct MCV MCH MCHC RDW Plt Count MPV Immature Gran % (Auto) Neut % (Auto) Lymph % (Auto) [place] % (Auto) Eos % (Auto) Baso % (Auto) Lymph # (Auto) [place] # (Auto) Eos # (Auto) Baso # (Auto) Abs Immat Gran (auto) Absolute Neuts (auto) Absolute Nucleated RBC Nucleated RBC % (auto) D-Dimer High Sensitivty VBG pH VBG pCO2 VBG pO2 VBG HCO3 VBG O2 Saturation VBG Base Excess Sodium Potassium Chloride Carbon Dioxide Anion Gap BUN Creatinine Estim Creat Clear Calc Estimated GFR POC Glucose 190 H 301 H 149 H Random Glucose Lactic Acid Calcium Phosphorus Magnesium Ferritin Total Bilirubin AST ALT Alkaline Phosphatase Lactate Dehydrogenase B-Natriuretic Peptide Total Protein Albumin Microbiology Microbiology Results: Microbiology 12/10/21 11:53 Blood - Subclavian Blood Culture - Preliminary No growth after 48 hours. 12/10/21 11:53 Blood - Subclavian Blood Culture - Preliminary No growth after 48 hours. 12/10/21 23:34 Spine Direct Acid Fast Bacilli Smear - Preliminary 12/10/21 23:34 Spine Acid Fast Bacilli Culture & Smear - Preliminary 12/10/21 Unknown Urine Catheterized - Kern Catheter Urine Culture - Final 12/10/21 23:34 Cerebrospinal Fluid Gram Stain - Final 12/10/21 23:34 Cerebrospinal Fluid CSF Examination - Final 12/10/21 23:34 Cerebrospinal Fluid Fluid Description - Final 12/10/21 23:34 Cerebrospinal Fluid CSF Culture - Preliminary No growth after 1 day 12/04/21 11:43 Blood - Venous Blood Culture - Final No growth after 5 days. 12/04/21 11:43 Blood - Venous Blood Culture - Final No growth after 5 days. 11/29/21 14:01 Blood - Venous Blood Culture - Final No growth after 5 days. 11/29/21 13:51 Blood - Venous Blood Culture - Final No growth after 5 days. 11/29/21 Unknown Urine clean catch - Urine [place] top Urine Culture - Final Progress Note: A&P Assessment and plan (1) Acute kidney injury: Status: Acute (2) Hypernatremia: Status: Acute (3) Encephalopathy, metabolic: Status: Acute (4) Pneumonia due to 2019 novel coronavirus: Status: Acute (5) Hypoxia: Status: Acute (6) Fever: Status: Acute (7) UTI (urinary tract infection): Status: Acute (8) Upper respiratory tract infection: Status: Acute (9) Hx of Escherichia coli septicemia: Status: Acute (10) Gait instability: Status: Acute (11) Yeast infection involving the vagina and surrounding area: Status: Acute (12) DM2 (diabetes mellitus, type 2): Status: Acute (13) Obesity due to excess calories: Status: Acute (14) Vitamin D deficiency: Status: Acute (15) Peripheral neuropathy: Status: Acute (16) Gastric paresis: Status: Acute (17) Esophagitis with gastritis: Status: Acute (18) Bipolar disorder: Status: Acute (19) Acquired hypothyroidism: Status: Acute (20) Hyperlipidemia: Status: Acute (21) Essential hypertension: Status: Acute (22) ARDS (adult respiratory distress syndrome): Status: Acute (23) Suppression of immune system subtherapeutic: Status: Acute Plan now she is intubated and will keep her well sedated cover her extensively pending sputum results including voriconazole and considering switching to Bactrim to cover for Pneumocystis and will try a to have her move to a tertiary institution Quality Stroke Does the patient have a stroke diagnosis?: No VTE Prior VTE?: No VTE Risk Level:: Medical - moderate - high VTE Device Contraindication: Treatment Not Indicated VTE Drug Contraindication: N/A - Med Ordered
--- NOTE | 2021-12-12 17:11 | W.PM.CCHP ---
Procedures Date of Service Date of Service: 12/12/21 Intubation Intubation Comments: patient developed progressive encephalopathy with unresponsiveness marked respiratory distress with respiratory rate in the high 40s oxygen saturation precipitously dropping to the mid 60s requiring emergent intubation which was performed under glide scope guidance with excellent visualization of vocal cords excellent end-tidal CO2 response and then chest x-ray allowing us to adjust the endotracheal tube to 22 cm at the lip just at the zuleyka and excellent episcopalian of O2 saturation Consent for Procedure: Emergent-no informed consent obtained Time out performed: Yes Sedative: propofol Mg given: 50 Paralytic: rocuronium Mg given: 50 Laryngoscope: fiber optic video scope ET tube size: 7.5 ET tube uncuffed: No Tube secured depth (cm): 22 Tube placement confirmation: visualized tube passing through cords, equal breath sounds bilaterally, no breath sounds over epigastrium and confirmation by capnometry Patient tolerated procedure: well and no complications Intubation complications: none
--- NOTE | 2021-12-12 19:56 | HE.PHANOTE ---
RE: Voriconazole Dosing Discussed voriconazole dosing with Ashwini BLANKENSHIP Indication for severe fungal infection based on rationale: She?s on immunosuppressants chronically and we think she might have a fungal infection in her lungs because it?s not pneumonia from a typical bug and it?s not Covid so seeing how she is at risk for opportunistic infections, we?re treating her for a fungal infection in her lungs. I entered in the loading dose (6mg/kg Q12H x 2 doses) based on ADJUSTED BW: 66kg x 6 mg/kg is 396 mg rounded to 400mg. Discussed dose change with lieutenant general. I also entered a new ID consult for [employer] med. Thanks Zen
[2021-12-12] MEDS: Albuterol/Iprat 2.5/0.5MG 3 ML AMPUL.NEB INHALE (19:59)
[2021-12-12 20:03] LABS: VBG Base Excess -6.3 mmol/L; VBG HCO3 17 mmol/L (22-26); VBG pCO2 29 mmHg; VBG pH 7.38 (7.32-7.43); VBG pO2 49 mmHg
[2021-12-12 20:04] LABS: Venous Blood Gas Refer to POC result
[2021-12-12 20:36] LABS: Glucose, Whole Blood 140 mg/dL (60-115)
[2021-12-12] MEDS: Melatonin 3 MG TABLET 6 MG PO (20:42)
[2021-12-12] MEDS: Insulin Glargine,Hum.rec.anlog 100 UNIT/ML 10 ML VIAL 14 UNIT SUBCUT (20:42)
[2021-12-12] MEDS: SODIUM CHLORIDE 0.9% IV (22:38)
[2021-12-12] MEDS: VORICONAZOLE IV (22:38)
[2021-12-13] VITALS (31 sets, daily range): BP systolic 95–132; BP diastolic 44–77; PULSE 66–144; RESP 12–34; TEMP 34.2–37.2; O2SAT 93–100
[2021-12-13] MEDS: Doxycycline Hyclate 100 MG in 0.9 % Sodium Chloride 250 ML 166.67 MG IV ×3 (01:08→23:56)
[2021-12-13] MEDS: Piperacillin Sodium/Tazobactam 3.375 GM in 0.9 % Sodium Chloride 50 ML IV (04:23)
[2021-12-13 05:00] LABS: VBG Base Excess -12.7 mmol/L; VBG HCO3 11 mmol/L (22-26); VBG pCO2 22 mmHg; VBG pH 7.31 (7.32-7.43); VBG pO2 57 mmHg
[2021-12-13] MEDS: propofoL 1,000 MG/100 ML VIAL 11.59 MG IVCONT (05:04)
[2021-12-13] MEDS: Heparin Sodium,Porcine 5,000 UNIT/ML VIAL 5000 UNIT SUBCUT ×3 (05:14→20:04)
[2021-12-13] MEDS: metroNIDAZOLE/NS 500 MG/100 ML PIGGYBACK 100 MG IV ×3 (05:15→20:03)
[2021-12-13 05:20] LABS: Basophils Percent Auto 0.1 % (0-2); Hematocrit 31.4 % (37.0-47.0); Hemoglobin 9.7 g/dl (12.0-16.0); Imm Gran Pct Auto 1.2 % (0.0-0.4); Lymphocytes Absolute Auto 0.4 X10*3/uL (1.2-4.9); Lymphocytes Percent Auto 5.1 % (20-40); MANUAL DIFF FLAG SCAN; Mean Corpuscular HGB Conc 30.9 g/dl (31.0-35.0); Mean Corpuscular Hemoglobin 27.6 pg (27.0-33.0); Mean Corpuscular Volume 89.2 fL (80.0-98.0); Mean Platelet Volume 10.9 fL (9.4-12.3); Monocytes Absolute Auto 0.1 X10*3/uL (0.1-1.2); Monocytes Percent Auto 1.5 % (2-11); Neutrophils Absolute Auto 7.8 x10*3/uL (2.0-8.3); Neutrophils Percent Auto 92.1 % (45-73); Platelet Count 306 X10*3/uL (160-400); Red Blood Count 3.52 X10*6/uL (4.20-5.50); Red Cell Distribution Width 14.8 % (11.0-16.0); SCAN SMEAR FLAG 1; White Blood Count 8.5 X10*3/uL (4.8-10.8)
[2021-12-13 05:21] LABS: Venous Blood Gas Refer to POC result
[2021-12-13 05:24] LABS: SLIDE REVIEW VERIFIED
[2021-12-13 05:51] LABS: Alanine Aminotransferase 23 U/L (0-31); Albumin Level 3.1 g/dL (3.5-5.0); Alkaline Phosphatase 96 U/L (39-117); Anion Gap 19 (12-20); Aspartate Amino Transferase 19 U/L (5-31); Bilirubin Direct 0.4 mg/dL (0.0-0.5); Bilirubin Total 0.6 mg/dL (0.0-1.0); Blood Urea Nitrogen 16 mg/dL (9-16); Calcium 8.4 mg/dL (8.4-10.2); Carbon Dioxide 14 mmol/L (22-29); Chloride 117 mmol/L (96-108); Creatinine Clr Calc Pharmacy 94.6; Estimated Glomerular Filt Rate > 60; Glucose Random 217 mg/dL (60-115); Magnesium 2.3 mg/dL (1.6-2.6); Phosphorus 3.6 mg/dL (2.7-4.5); Potassium 3.5 mmol/L (3.3-5.1); Sodium 146 mmol/L (135-145); Total Protein 5.2 g/dL (6.5-8.0)
[2021-12-13 06:21] LABS: Ferritin 2707 ng/mL (10-122)
[2021-12-13 07:26] LABS: Glucose, Whole Blood 196 mg/dL (60-115)
[2021-12-13] MEDS: Albuterol/Iprat 2.5/0.5MG 3 ML AMPUL.NEB INHALE ×4 (08:02→20:23)
[2021-12-13] MEDS: SODIUM CHLORIDE 0.9% IV (08:13)
[2021-12-13] MEDS: VORICONAZOLE IV (08:13)
[2021-12-13] MEDS: dexAMETHasone sod phosphate 4 MG/ML VIAL 6 MG IVPUSH (08:13)
[2021-12-13] MEDS: Folic Acid 1 MG in 0.9 % Sodium Chloride 50 ML 100.4 MG IV (08:13)
[2021-12-13] MEDS: Insulin Lispro 100 UNIT/ML 3 ML VIAL SUBCUT ×3 (08:13→17:35)
[2021-12-13] MEDS: Levothyroxine Sodium 100 MCG/5 ML VIAL 37.5 MCG IVPUSH (08:14)
[2021-12-13] MEDS: fluvoxaMINE Maleate 50 MG TABLET 100 MG PO ×2 (08:14→20:03)
[2021-12-13] MEDS: 0.9 % Sodium Chloride Flush 3 ML SYRINGE IVFLUSH ×3 (08:15→23:57)
[2021-12-13] MEDS: Sulfamethoxazole/Trimethoprim 320 MG in Dextrose 5 % 500 ML 225 MG IV (08:20)
[2021-12-13 08:57] LABS: Lactic Acid 1.1 mmol/L (0.5-2.0)
[2021-12-13 09:03] LABS: Acetone, serum QL Negative (Negative)
[2021-12-13 09:22] LABS: Procalcitonin 1.02 ng/mL
--- NOTE | 2021-12-13 10:55 | MHC.CLN ---
F/U PT RE-INTUBATED 12/12 AND SEDATED PT RECEIVING TF GLUCERNA AT MAX GOAL RATE 50ML/HR WITH 240ML Q 4 HRS PROVIDES 1200KCALS (1506 KCALS WITH SEDATION; 35KCALS/KG BASED ON IBW), 50G PROTEIN (1.2G/KG), 2464ML TOTAL WATER FROM FORMULA AND FLUSHES MONITOR TOLERANCE, RESIDUALS AND LYTES
--- NOTE | 2021-12-13 11:17 | MHC.CM.PN ---
Patient remains in ICU intubated/vented. Patient has a history of an autoimmune disease that is being followed at [facility]. Dr Mcrae has tried to get patient transferred to [facility] without success at this time. Patient is from home with 24/ care provided by parents. Patient is wheelchair bound at baseline. Patient received 2 Covid vaccines. [place] H[place] [facility] [place] [facility]. Continue to monitor for d/c needs.
[2021-12-13 11:23] LABS: Glucose, Whole Blood 271 mg/dL (60-115)
[2021-12-13] MEDS: propofoL 1,000 MG/100 ML VIAL 28.98 MG IVCONT ×2 (11:33→13:45)
[2021-12-13] MEDS: Midazolam HCl/PF 2 MG/2 ML VIAL 4 MG IVPUSH (12:16)
[2021-12-13] MEDS: Midazolam HCl/NS 50 MG/50 ML PLAST..BAG IVCONT (12:20)
--- NOTE | 2021-12-13 12:32 | P.PNCC_ITS ---
Subjective Subjective Date of Service: 12/13/21 Interval History: 31-year-old morbidly obese type 2 diabetic immunosuppressed on monthly IV IG and Q 6 monthly rituximab last received in June presents with hypoxic respiratory failure positive for COVID 19 at this point almost 2 weeks into our hospitalization which she developed severe progressive encephalopathy and hypoxemic respiratory failure and now intubated for 24 hours and down to an FiO2 of 30% Critical Care Time (minutes): 45 Physical Exam Verdana 4l Vital Signs: Verdana 4d Verdana 4d Vital Signs: Verdana 4d Verdana 4Bd Last Vital Signs Verdana 4d Vessel Manager New 4d Vessel Manager New 4d Temp 98.5 F 12/13/21 12:00 Vessel Manager New 4d Pulse 144 H 12/13/21 12:00 Vessel Manager New 4d Resp 34 H 12/13/21 12:00 BP 113/68 12/13/21 12:00 Pulse Ox 95 12/13/21 12:00 Oxygen Flow Rate 4 11/29/21 11:52 BMI result Body Mass Index 43.0 nonfocal neurologically she does awaken easily but agitated with no evident car cognitive function off the propofol cardiovascular by bedside echo class 1 chest x-ray shows left lower lobe re-expansion after aggressive toileting and no accessory muscle use no diaphragmatic effort abdomen benign Objective Data Labs CBC & Chem 7: 12/13/21 04:50 12/13/21 04:50 Labs: Laboratory Results - last 24 hr 12/12/21 12/12/21 12/12/21 16:25 19:56 20:32 WBC RBC Hgb Hct MCV MCH MCHC RDW Plt Count MPV Immature Gran % (Auto) Neut % (Auto) Lymph % (Auto) [place] % (Auto) Eos % (Auto) Baso % (Auto) Lymph # (Auto) [place] # (Auto) Eos # (Auto) Baso # (Auto) Abs Immat Gran (auto) Absolute Neuts (auto) Absolute Nucleated RBC Nucleated RBC % (auto) Smear Tech's Comments VBG pH 7.38 VBG pCO2 29 VBG pO2 49 VBG HCO3 17 L VBG O2 Saturation 79.0 VBG Base Excess -6.3 Sodium Potassium Chloride Carbon Dioxide Anion Gap BUN Creatinine Estim Creat Clear Calc Estimated GFR POC Glucose 149 H 140 H Random Glucose Lactic Acid Calcium Phosphorus Magnesium Ferritin Total Bilirubin Direct Bilirubin AST ALT Alkaline Phosphatase Total Protein Albumin Procalcitonin Acetone, Qual 12/13/21 12/13/21 12/13/21 04:50 04:50 04:54 WBC 8.5 RBC 3.52 L Hgb 9.7 L Hct 31.4 L MCV 89.2 MCH 27.6 MCHC 30.9 L RDW 14.8 Plt Count 306 D MPV 10.9 Immature Gran % (Auto) 1.2 H Neut % (Auto) 92.1 H Lymph % (Auto) 5.1 L [place] % (Auto) 1.5 L Eos % (Auto) 0.0 Baso % (Auto) 0.1 Lymph # (Auto) 0.4 L [place] # (Auto) 0.1 Eos # (Auto) 0.0 Baso # (Auto) 0.0 Abs Immat Gran (auto) 0.10 H Absolute Neuts (auto) 7.8 Absolute Nucleated RBC 0.000 Nucleated RBC % (auto) 0.0 Smear Tech's Comments VERIFIED VBG pH 7.31 L VBG pCO2 22 VBG pO2 57 VBG HCO3 11 L VBG O2 Saturation 85.0 VBG Base Excess -12.7 Sodium 146 H Potassium 3.5 Chloride 117 H Carbon Dioxide 14 L Anion Gap 19 BUN 16 Creatinine 0.87 Estim Creat Clear Calc 94.6 Estimated GFR > 60 POC Glucose Random Glucose 217 H Lactic Acid Calcium 8.4 Phosphorus 3.6 Magnesium 2.3 Ferritin 2707 H Total Bilirubin 0.6 Direct Bilirubin 0.4 AST 19 ALT 23 Alkaline Phosphatase 96 Total Protein 5.2 L Albumin 3.1 L Procalcitonin Acetone, Qual 12/13/21 12/13/21 12/13/21 07:16 08:02 08:02 WBC RBC Hgb Hct MCV MCH MCHC RDW Plt Count MPV Immature Gran % (Auto) Neut % (Auto) Lymph % (Auto) [place] % (Auto) Eos % (Auto) Baso % (Auto) Lymph # (Auto) [place] # (Auto) Eos # (Auto) Baso # (Auto) Abs Immat Gran (auto) Absolute Neuts (auto) Absolute Nucleated RBC Nucleated RBC % (auto) Smear Tech's Comments VBG pH VBG pCO2 VBG pO2 VBG HCO3 VBG O2 Saturation VBG Base Excess Sodium Potassium Chloride Carbon Dioxide Anion Gap BUN Creatinine Estim Creat Clear Calc Estimated GFR POC Glucose 196 H Random Glucose Lactic Acid 1.1 Calcium Phosphorus Magnesium Ferritin Total Bilirubin Direct Bilirubin AST ALT Alkaline Phosphatase Total Protein Albumin Procalcitonin 1.02 Acetone, Qual 12/13/21 12/13/21 08:02 11:17 WBC RBC Hgb Hct MCV MCH MCHC RDW Plt Count MPV Immature Gran % (Auto) Neut % (Auto) Lymph % (Auto) [place] % (Auto) Eos % (Auto) Baso % (Auto) Lymph # (Auto) [place] # (Auto) Eos # (Auto) Baso # (Auto) Abs Immat Gran (auto) Absolute Neuts (auto) Absolute Nucleated RBC Nucleated RBC % (auto) Smear Tech's Comments VBG pH VBG pCO2 VBG pO2 VBG HCO3 VBG O2 Saturation VBG Base Excess Sodium Potassium Chloride Carbon Dioxide Anion Gap BUN Creatinine Estim Creat Clear Calc Estimated GFR POC Glucose 271 H Random Glucose Lactic Acid Calcium Phosphorus Magnesium Ferritin Total Bilirubin Direct Bilirubin AST ALT Alkaline Phosphatase Total Protein Albumin Procalcitonin Acetone, Qual Negative Microbiology Microbiology Results: Microbiology 12/12/21 15:40 Sputum - Suctioned Gram Stain - Final 12/12/21 15:40 Sputum - Suctioned Sputum Culture - Preliminary No growth to date. 12/10/21 23:34 Cerebrospinal Fluid Gram Stain - Final 12/10/21 23:34 Cerebrospinal Fluid CSF Examination - Final 12/10/21 23:34 Cerebrospinal Fluid Fluid Description - Final 12/10/21 23:34 Cerebrospinal Fluid CSF Culture - Preliminary No growth after 2 days 12/10/21 11:53 Blood - Subclavian Blood Culture - Preliminary No growth after 48 hours. 12/10/21 11:53 Blood - Subclavian Blood Culture - Preliminary No growth after 48 hours. 12/10/21 23:34 Spine Direct Acid Fast Bacilli Smear - Preliminary 12/10/21 23:34 Spine Acid Fast Bacilli Culture & Smear - Preliminary 12/10/21 Unknown Urine Catheterized - Kern Catheter Urine Culture - Final 12/04/21 11:43 Blood - Venous Blood Culture - Final No growth after 5 days. 12/04/21 11:43 Blood - Venous Blood Culture - Final No growth after 5 days. 11/29/21 14:01 Blood - Venous Blood Culture - Final No growth after 5 days. 11/29/21 13:51 Blood - Venous Blood Culture - Final No growth after 5 days. 11/29/21 Unknown Urine clean catch - Urine [place] top Urine Culture - Final Progress Note: A&P Assessment and plan (1) Suppression of immune system subtherapeutic: Status: Acute (2) ARDS (adult respiratory distress syndrome): Status: Acute (3) Acute kidney injury: Status: Acute (4) Hypernatremia: Status: Acute (5) Encephalopathy, metabolic: Status: Acute (6) Pneumonia due to 2019 novel coronavirus: Status: Acute (7) Hypoxia: Status: Acute (8) Fever: Status: Acute (9) UTI (urinary tract infection): Status: Acute (10) Upper respiratory tract infection: Status: Acute (11) Hx of Escherichia coli septicemia: Status: Acute (12) Clinical decompensation: Status: Acute (13) Gait instability: Status: Acute (14) Bacteremia: Status: Acute (15) Sepsis: Status: Acute (16) UTI (urinary tract infection): Status: Acute (17) Upper respiratory tract infection: Status: Acute (18) Yeast infection involving the vagina and surrounding area: Status: Acute (19) Breakthrough bleeding on Depo-Provera: Status: Acute (20) On Depo-Provera for contraception: Status: Acute (21) DM2 (diabetes mellitus, type 2): Status: Acute (22) Obesity due to excess calories: Status: Acute (23) Diabetes mellitus with hyperglycemia: Status: Acute (24) Elevated vitamin B12 level: Status: Acute (25) Vitamin D deficiency: Status: Acute (26) Peripheral neuropathy: Status: Acute (27) Gastric paresis: Status: Acute (28) Esophagitis with gastritis: Status: Acute (29) Bipolar disorder: Status: Acute (30) Acquired hypothyroidism: Status: Acute (31) Hyperlipidemia: Status: Acute (32) Essential hypertension: Status: Acute Plan plan of course is to maintain intubation for now awaiting sputum results and continue to cover her broadly and might reach out to her primary physician over at [facility] do see if he would have interest in promoting her admission there Quality Stroke Does the patient have a stroke diagnosis?: No VTE Prior VTE?: No VTE Risk Level:: Medical - moderate - high VTE Device Contraindication: Treatment Not Indicated VTE Drug Contraindication: N/A - Med Ordered
--- NOTE | 2021-12-13 14:54 | PM.IDPN ---
Subjective Subjective Date of Service: 12/13/21 Critical Care Time (minutes): 15 Comment: She remains in ICU She is reported to have new patchy infiltrates upper lobes Objective Data Labs CBC & Chem 7: 01/05/22 06:00 01/05/22 06:00 Labs: Laboratory Results - last 24 hr 12/12/21 12/12/21 12/12/21 16:25 19:56 20:32 WBC RBC Hgb Hct MCV MCH MCHC RDW Plt Count MPV Immature Gran % (Auto) Neut % (Auto) Lymph % (Auto) [place] % (Auto) Eos % (Auto) Baso % (Auto) Lymph # (Auto) [place] # (Auto) Eos # (Auto) Baso # (Auto) Abs Immat Gran (auto) Absolute Neuts (auto) Absolute Nucleated RBC Nucleated RBC % (auto) Smear Tech's Comments VBG pH 7.38 VBG pCO2 29 VBG pO2 49 VBG HCO3 17 L VBG O2 Saturation 79.0 VBG Base Excess -6.3 Sodium Potassium Chloride Carbon Dioxide Anion Gap BUN Creatinine Estim Creat Clear Calc Estimated GFR POC Glucose 149 H 140 H Random Glucose Lactic Acid Calcium Phosphorus Magnesium Ferritin Total Bilirubin Direct Bilirubin AST ALT Alkaline Phosphatase Total Protein Albumin Procalcitonin Acetone, Qual 12/13/21 12/13/21 12/13/21 04:50 04:50 04:54 WBC 8.5 RBC 3.52 L Hgb 9.7 L Hct 31.4 L MCV 89.2 MCH 27.6 MCHC 30.9 L RDW 14.8 Plt Count 306 D MPV 10.9 Immature Gran % (Auto) 1.2 H Neut % (Auto) 92.1 H Lymph % (Auto) 5.1 L [place] % (Auto) 1.5 L Eos % (Auto) 0.0 Baso % (Auto) 0.1 Lymph # (Auto) 0.4 L [place] # (Auto) 0.1 Eos # (Auto) 0.0 Baso # (Auto) 0.0 Abs Immat Gran (auto) 0.10 H Absolute Neuts (auto) 7.8 Absolute Nucleated RBC 0.000 Nucleated RBC % (auto) 0.0 Smear Tech's Comments VERIFIED VBG pH 7.31 L VBG pCO2 22 VBG pO2 57 VBG HCO3 11 L VBG O2 Saturation 85.0 VBG Base Excess -12.7 Sodium 146 H Potassium 3.5 Chloride 117 H Carbon Dioxide 14 L Anion Gap 19 BUN 16 Creatinine 0.87 Estim Creat Clear Calc 94.6 Estimated GFR > 60 POC Glucose Random Glucose 217 H Lactic Acid Calcium 8.4 Phosphorus 3.6 Magnesium 2.3 Ferritin 2707 H Total Bilirubin 0.6 Direct Bilirubin 0.4 AST 19 ALT 23 Alkaline Phosphatase 96 Total Protein 5.2 L Albumin 3.1 L Procalcitonin Acetone, Qual 12/13/21 12/13/21 12/13/21 07:16 08:02 08:02 WBC RBC Hgb Hct MCV MCH MCHC RDW Plt Count MPV Immature Gran % (Auto) Neut % (Auto) Lymph % (Auto) [place] % (Auto) Eos % (Auto) Baso % (Auto) Lymph # (Auto) [place] # (Auto) Eos # (Auto) Baso # (Auto) Abs Immat Gran (auto) Absolute Neuts (auto) Absolute Nucleated RBC Nucleated RBC % (auto) Smear Tech's Comments VBG pH VBG pCO2 VBG pO2 VBG HCO3 VBG O2 Saturation VBG Base Excess Sodium Potassium Chloride Carbon Dioxide Anion Gap BUN Creatinine Estim Creat Clear Calc Estimated GFR POC Glucose 196 H Random Glucose Lactic Acid 1.1 Calcium Phosphorus Magnesium Ferritin Total Bilirubin Direct Bilirubin AST ALT Alkaline Phosphatase Total Protein Albumin Procalcitonin 1.02 Acetone, Qual 12/13/21 12/13/21 08:02 11:17 WBC RBC Hgb Hct MCV MCH MCHC RDW Plt Count MPV Immature Gran % (Auto) Neut % (Auto) Lymph % (Auto) [place] % (Auto) Eos % (Auto) Baso % (Auto) Lymph # (Auto) [place] # (Auto) Eos # (Auto) Baso # (Auto) Abs Immat Gran (auto) Absolute Neuts (auto) Absolute Nucleated RBC Nucleated RBC % (auto) Smear Tech's Comments VBG pH VBG pCO2 VBG pO2 VBG HCO3 VBG O2 Saturation VBG Base Excess Sodium Potassium Chloride Carbon Dioxide Anion Gap BUN Creatinine Estim Creat Clear Calc Estimated GFR POC Glucose 271 H Random Glucose Lactic Acid Calcium Phosphorus Magnesium Ferritin Total Bilirubin Direct Bilirubin AST ALT Alkaline Phosphatase Total Protein Albumin Procalcitonin Acetone, Qual Negative Microbiology Microbiology Results: Microbiology 12/12/21 15:40 Sputum - Suctioned Gram Stain - Final 12/12/21 15:40 Sputum - Suctioned Sputum Culture - Preliminary No growth to date. 12/10/21 23:34 Cerebrospinal Fluid Gram Stain - Final 12/10/21 23:34 Cerebrospinal Fluid CSF Examination - Final 12/10/21 23:34 Cerebrospinal Fluid Fluid Description - Final 12/10/21 23:34 Cerebrospinal Fluid CSF Culture - Preliminary No growth after 2 days 12/10/21 11:53 Blood - Subclavian Blood Culture - Preliminary No growth after 48 hours. 12/10/21 11:53 Blood - Subclavian Blood Culture - Preliminary No growth after 48 hours. 12/10/21 23:34 Spine Direct Acid Fast Bacilli Smear - Preliminary 12/10/21 23:34 Spine Acid Fast Bacilli Culture & Smear - Preliminary 12/10/21 Unknown Urine Catheterized - Kern Catheter Urine Culture - Final 12/04/21 11:43 Blood - Venous Blood Culture - Final No growth after 5 days. 12/04/21 11:43 Blood - Venous Blood Culture - Final No growth after 5 days. 11/29/21 14:01 Blood - Venous Blood Culture - Final No growth after 5 days. 11/29/21 13:51 Blood - Venous Blood Culture - Final No growth after 5 days. 11/29/21 Unknown Urine clean catch - Urine [place] top Urine Culture - Final Physical Exam Vital Signs: Vital Signs: Last Vital Signs Temp 98.5 F 12/13/21 12:00 Pulse 125 H 12/13/21 14:00 Resp 21 H 12/13/21 14:00 BP 97/44 L 12/13/21 14:00 Pulse Ox 95 12/13/21 14:00 Oxygen Flow Rate 4 11/29/21 11:52 BMI result Body Mass Index 43.0 Const: General: cooperative Resp: Effort & Inspection: normal respiratory effort Cardio: Rate: regular rate Rhythm: regular rhythm GI: Inspection: Yes normal to inspection Assessment and Plan Time Spent With Patient Time: Total time spent is greater than 50% in coordination of care (as documented) at patient's floor/unit and/or counseling patient: Time with patient: 15 - 24 minutes
[2021-12-13] MEDS: methylPREDNISolone Sod Succ 1,000 MG in 0.9 % Sodium Chloride 50 ML 66 MG IV (17:23)
[2021-12-13] MEDS: propofoL 1,000 MG/100 ML VIAL 23.18 MG IVCONT ×2 (17:23→20:04)
[2021-12-13 17:37] LABS: Glucose, Whole Blood 287 mg/dL (60-115)
[2021-12-13] MEDS: Insulin Glargine,Hum.rec.anlog 100 UNIT/ML 10 ML VIAL 14 UNIT SUBCUT (20:03)
[2021-12-13] MEDS: Melatonin 3 MG TABLET 6 MG PO (20:04)
[2021-12-14] VITALS (34 sets, daily range): BP systolic 98–150; BP diastolic 46–83; PULSE 68–117; RESP 18–28; TEMP 33–37.3; O2SAT 92–97
--- NOTE | 2021-12-14 | EEG_ITS ---
This is a 16-channel portable EEG performed in ICU. The patient is reported intubated and sedated. Background EEG rhythm is low amplitude with couple of seconds of slow, 7-8 hertz low amplitude, generalized activity followed by almost flattening of EEG for many seconds. No definite asymmetry, sharp waves, or spikes were noted. Cardiac lead revealed tachycardia. IMPRESSION: This EEG revealed severe generalized slowing. Clinical information was not fully available. This could be result from severe encephalopathy, but it was not clear if the patient was still sedated while this EEG was taken. In any case, this EEG did not reveal any signs of seizure disorder or active seizure. MD ELIEL Pond/BERNADETTE / [phone]
[2021-12-14] MEDS: propofoL 1,000 MG/100 ML VIAL 23.18 MG IVCONT ×4 (00:03→22:05)
[2021-12-14] MEDS: Insulin Lispro 100 UNIT/ML 3 ML VIAL SUBCUT ×3 (00:06→05:44)
[2021-12-14 00:12] LABS: Glucose, Whole Blood 339 mg/dL (60-115)
[2021-12-14] MEDS: metroNIDAZOLE/NS 500 MG/100 ML PIGGYBACK 100 MG IV (04:39)
[2021-12-14 05:31] LABS: VBG Base Excess -7.4 mmol/L; VBG HCO3 15 mmol/L (22-26); VBG pCO2 25 mmHg; VBG pO2 52 mmHg
[2021-12-14 05:31] LABS: Glucose, Whole Blood 384 mg/dL (60-115)
[2021-12-14 05:40] LABS: Venous Blood Gas Refer to POC result
[2021-12-14 05:41] LABS: Basophils Percent Auto 0.1 % (0-2); Eosinophils Percent Auto 0.1 % (0-4); Hematocrit 29.1 % (37.0-47.0); Hemoglobin 9.6 g/dl (12.0-16.0); Imm Gran Pct Auto 0.9 % (0.0-0.4); Lymphocytes Absolute Auto 0.1 X10*3/uL (1.2-4.9); Lymphocytes Percent Auto 0.3 % (20-40); MANUAL DIFF FLAG SCAN; Mean Corpuscular Hemoglobin 28.4 pg (27.0-33.0); Mean Corpuscular Volume 86.1 fL (80.0-98.0); Mean Platelet Volume 10.9 fL (9.4-12.3); Monocytes Absolute Auto 0.4 X10*3/uL (0.1-1.2); Monocytes Percent Auto 1.8 % (2-11); Neutrophils Absolute Auto 22.6 x10*3/uL (2.0-8.3); Neutrophils Percent Auto 96.8 % (45-73); Platelet Count 426 X10*3/uL (160-400); Red Blood Count 3.38 X10*6/uL (4.20-5.50); Red Cell Distribution Width 15.2 % (11.0-16.0); SCAN SMEAR FLAG 1; White Blood Count 23.4 X10*3/uL (4.8-10.8)
[2021-12-14] MEDS: Heparin Sodium,Porcine 5,000 UNIT/ML VIAL 5000 UNIT SUBCUT ×3 (05:42→20:09)
[2021-12-14 06:03] LABS: SLIDE REVIEW VERIFIED
[2021-12-14 06:07] LABS: Alanine Aminotransferase 21 U/L (0-31); Albumin Level 2.9 g/dL (3.5-5.0); Alkaline Phosphatase 113 U/L (39-117); Anion Gap 13 (12-20); Aspartate Amino Transferase 13 U/L (5-31); Bilirubin Direct 0.4 mg/dL (0.0-0.5); Bilirubin Total 0.6 mg/dL (0.0-1.0); Blood Urea Nitrogen 19 mg/dL (9-16); Calcium 8.2 mg/dL (8.4-10.2); Carbon Dioxide 17 mmol/L (22-29); Chloride 112 mmol/L (96-108); Creatinine Clr Calc Pharmacy 66.9; Estimated Glomerular Filt Rate 51; Glucose Random 439 mg/dL (60-115); Magnesium 2.1 mg/dL (1.6-2.6); Potassium 3.2 mmol/L (3.3-5.1); Sodium 139 mmol/L (135-145); Total Protein 5.1 g/dL (6.5-8.0)
[2021-12-14] MEDS: Midazolam HCl/NS 50 MG/50 ML PLAST..BAG IVCONT (06:15)
[2021-12-14 06:22] LABS: Ferritin 3825 ng/mL (10-122)
--- NOTE | 2021-12-14 06:36 | MHC.PIE ---
Elevated blood sugars - 384 POC, serum 439. Medicated w/ sliding scale insulin 10 units lispro, plus extra 2 units lispro - Ashwini MOSLEY and Dr Mcrae aware. Unable to wean levophed off. Map dropped under 65.
[2021-12-14 07:36] LABS: Glucose, Whole Blood 360 mg/dL (60-115)
[2021-12-14] MEDS: Furosemide 20 MG/2 ML VIAL IVPUSH (07:36)
[2021-12-14] MEDS: fluvoxaMINE Maleate 50 MG TABLET 100 MG PO ×2 (07:36→20:09)
[2021-12-14] MEDS: Insulin Regular/NS 100 UNIT/100 ML PLAST..BAG IVCONT (07:37)
[2021-12-14] MEDS: Potassium Chloride Packet 20 MEQ PACKET 40 MEQ PO ×2 (07:37→23:39)
[2021-12-14] MEDS: Levothyroxine Sodium 100 MCG/5 ML VIAL 37.5 MCG IVPUSH (07:37)
[2021-12-14] MEDS: Albuterol/Iprat 2.5/0.5MG 3 ML AMPUL.NEB INHALE ×4 (07:50→21:18)
[2021-12-14 09:10] LABS: Glucose, Whole Blood 365 mg/dL (60-115)
--- NOTE | 2021-12-14 09:12 | P.CONPL_ITS ---
History of Present Illness History of Present Illness Consult date: 12/14/21 Chief complaint: covid Narrative: This is a pulmonary consultation. 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 The patient missed her last IgG infusion before coming to the hospital. She started developing flu-like symptoms back around November 23 and tested positive for COVID-19. Ultimately admitted to the hospital with worsening respiratory failure and COVID pneumonia. Also concerning findings working renal failure and also metabolic encephalopathy. The patient was not a candidate for remdesivir due to the late% a mortensen. She was treated with cortical steroids. She had to be intubated for worsening respiratory capacity. Today she had a CT scan of the chest in view of her worsening respiratory symptoms demonstrating complete diffuse airspace disease likely from worsening COVID-19 pneumonia. Although air DS is also in differential. The patient is immunocompromised status post Rituxan therefore need to consider underlying immuno compromising conditions such as PCP and aspergillosis.. The patient in view of her worsening respiratory capacity multiple comorbidities was referred to [facility] for potential transfer and consideration of ECMO. However, due to her BMI being elevated the patient is not candidate for ECMO based on the criteria and they rejected a transfer at this time. I personally reviewed her CT scan of the chest demonstrating the significant diffuse ground-glass opacities and areas of airspace disease and decreased lung volumes. I also reviewed her blood work including an elevated ferritin level suggesting significant elevations of the acute phase reactant suggesting persistent inflammatory changes. Review of Systems Verdana 4l Review of Systems: Yes unobtainable due to endotracheal Verdana 4d tube and Unobtainable due to mental condition PMFSH Past Medical History Medical History (Updated 12/14/21 @ 09:18 by Salvador Muniz MD) Acquired hypothyroidism Bipolar disorder Blurred vision, bilateral Clinical decompensation Diabetes mellitus with hyperglycemia Elevated vitamin B12 level Esophagitis with gastritis Essential hypertension Gait instability Gastric paresis Hx of Escherichia coli septicemia Hyperlipidemia Hypogammaglobulinemia Muscle weakness Obesity, morbid, BMI 40.0-49.9 Peripheral neuropathy Suppression of immune system subtherapeutic Vitamin D deficiency Family History Family History Other Adopted Family history: reviewed and not pertinent Surgical History Surgical History Hx of section Hx of tooth extraction Social History Social History Household Members: Adopted Family Housing: Unknown / Unable to assess Alcohol intake: never Patient Tobacco Use Status: Former Tobacco user Second Hand Smoke Exposure: No service: No Current occupational status: disabled Gender identity: Female Meds Allergies Allergy/AdvReac Type Severity Reaction Status Date / Time latex Allergy Unknown rash Verified 11/14/21 00:57 metoclopramide [From AdvReac Unknown INTERACTS Verified 11/14/21 00:57 REGLAN] W/ SEROQUEL Active Medications: Current Medications Albuterol/Ipratropium (Albuterol/Iprat 2.5/0.5mg 3 Ml Ampul.Neb) 3 ml INHALE RQ 4H WHILE AWAKE [facility] Last Admin: 12/14/21 07:50 Dose: 3 ml Documented by: Fluvoxamine Maleate (Fluvoxamine Maleate 50 Mg Tablet) 100 mg PO BID RADHA Last Admin: 12/14/21 07:36 Dose: 100 mg Documented by: Haloperidol Lactate (Haloperidol Lactate 5 Mg/Ml Vial) 0.5 mg IV Q1H PRN PRN Reason: anxiety/restlessness Heparin Sodium (Porcine) (Heparin Sodium,Porcine 5,000 Unit/Ml Vial) 5,000 unit SUBCUT Q8H [facility] Last Admin: 12/14/21 05:42 Dose: 5,000 unit Documented by: Norepinephrine Bitartrate (Levophed) 8 mg in 250 mls @ 0 mls/hr IVCONT .Q0M [facility] ; Protocol Last Titration: 12/14/21 08:17 Dose: 0.07 mcg/kg/min, 12.68 mls/hr Documented by: Doxycycline Hyclate 100 mg/ (Sodium Chloride) 250 mls @ 166.67 mls/hr IV Q12H [facility] Last Infusion: 12/14/21 02:13 Dose: Infused Documented by: Propofol (Diprivan) 1,000 mg in 100 mls @ 0 mls/hr IVCONT .Q0M [facility]; Protocol Last Titration: 12/14/21 08:18 Dose: 30 mcg/kg/min, 17.39 mls/hr Documented by: Midazolam HCl (Versed) 50 mg in 50 mls @ 2 mls/hr IVCONT .Q24H [facility] Last Admin: 12/14/21 06:15 Dose: 2 mg/hr, 2 mls/hr Documented by: Insulin Human Regular (Myxredlin) 100 unit in 100 mls @ 0 mls/hr IVCONT .Q0M [facility]; Protocol Last Titration: 12/14/21 09:08 Dose: 5 unit/hr, 5 mls/hr Documented by: Levothyroxine Sodium (Levothyroxine Sodium 100 Mcg/5 Ml Vial) 37.5 mcg IVPUSH DAILY [facility] Last Admin: 12/14/21 07:37 Dose: 37.5 mcg Documented by: Pharmacy Consult (Consult Rx Perform Med Rec) 1 each MISCELLANE ONCE PRN PRN Reason: Consult order Sodium Chloride (0.9 % Sodium Chloride Flush 3 Ml Syringe) 3 ml IVFLUSH QSHIFT [facility] Last Admin: 12/14/21 07:37 Dose: Not Given Documented by: Home Medications Medication Instructions Recorded Confirmed Last Taken Type bupropion HCl 100 100 mg PO QAM 11/30/20 11/29/21 11/28/21 History mg tablet,12 hr sustained-release trazodone 100 mg 100 mg PO 11/30/20 11/29/21 11/28/21 History tablet BEDTIME cranberry 400 mg 450 mg PO DAILY 03/22/21 11/29/21 11/28/21 History capsule cap melatonin 3 mg 6 mg PO DAILY 03/22/21 11/29/21 11/28/21 History tablet multivitamin 1 tab PO DAILY 03/22/21 11/29/21 11/28/21 History pregabalin 300 mg 300 mg PO BID 05/10/21 11/29/21 11/28/21 History capsule cap thiamine HCl 100 mg PO DAILY 06/09/21 11/29/21 11/28/21 History (vitamin B1) 100 mg tablet rituximab 10 10 mg IV 08/11/21 11/29/21 Unknown History mg/mL [id number] concentrate,intra venous oxcarbazepine 150 450 mg PO BID 08/18/21 11/29/21 11/28/21 History mg tablet tab immune 0 ml IV Q4W 10/11/21 11/29/21 09/27/21 History globulin,gamma(Ig G)slra 10 % intravenous solution cholecalciferol 1,250 mcg PO MO 10/16/21 11/29/21 11/28/21 History (vitamin D3) 1,250 mcg (50,000 unit) capsule chlorhexidine 15 ml PO BID 11/29/21 11/29/21 11/28/21 History gluconate 0.12 % mouthwash quetiapine 200 mg 1 tab PO BEDTIME 11/29/21 11/29/21 11/28/21 History tablet quetiapine 400 mg 1 tab PO BEDTIME 11/29/21 11/29/21 11/28/21 History tablet Physical Exam Verdana 4l Vital Signs: Verdana 4d Verdana 4d Vital Signs: Verdana 4d Verdana 4Bd Last Vital Signs Verdana 4d [employer] New 4d Regional [employer] Associate New 4d Temp 97.3 F 12/14/21 09:00 Regional Sales Associate New 4d Pulse 92 12/14/21 09:00 Regional [employer] Associate New 4d Resp 22 H 12/14/21 09:00 BP 125/70 12/14/21 09:00 Pulse Ox 96 12/14/21 09:00 Oxygen Flow Rate 4 11/29/21 11:52 BMI result Body Mass Index 43.0 Const: General: other (sedated) Neck: Neck: Yes normal visual inspection, Yes full ROM and Yes no lymphadenopathy Chest: Chest palpation & inspection: normal inspection of the chest Resp: Auscultation: diminished lung sounds Cardio: Rate: regular rate Rhythm: regular rhythm Heart sounds: S1 normal heart sound present and S2 normal heart sound present Skin: General skin exam: rashes and/or lesions noted Results Laboratory Findings CBC and BMP: 12/14/21 05:20 12/14/21 05:20 Abnormal lab findings: Abnormal Labs 11/29/21 11/29/21 11/29/21 12:46 12:46 12:46 WBC RBC Hgb Hct MCHC Plt Count Immature Gran % (Auto) 0.7 H Neut % (Auto) 80.8 H Lymph % (Auto) 9.7 L [place] % (Auto) Lymph # (Auto) 0.5 L [place] # (Auto) Eos # (Auto) Abs Immat Gran (auto) 0.04 H Absolute Neuts (auto) Absolute Nucleated RBC ABG pH at Pt Temp ABG pH (Temp Correct) ABG pCO2 at Pt Temp ABG pCO2 (Temp Corrct ABG pO2 at Pt Temp ABG pO2 (Temp Correct ABG HCO3 VBG pH VBG HCO3 Sodium Potassium Chloride 109 H Carbon Dioxide Anion Gap BUN Creatinine POC Glucose Random Glucose 123 H Fasting Glucose Lactic Acid Lactic Acid F/U @ 2Hr Calcium Ferritin 6287 H Total Bilirubin Direct Bilirubin AST 65 H ALT 38 H Alkaline Phosphatase 135 H D Lactate Dehydrogenase 529 H Total Creatine Kinase C-Reactive Protein 9.89 H Total Protein Albumin Ur Specific [place] Urine Protein Urine Glucose (UA) Urine Blood Urine Nitrite Ur Leukocyte Esterase Urine RBC Urine WBC COVID-19 (NATASHA) Positive A 11/29/21 11/29/21 11/29/21 12:50 14:39 18:17 WBC RBC Hgb Hct MCHC Plt Count Immature Gran % (Auto) Neut % (Auto) Lymph % (Auto) [place] % (Auto) Lymph # (Auto) [place] # (Auto) Eos # (Auto) Abs Immat Gran (auto) Absolute Neuts (auto) Absolute Nucleated RBC ABG pH at Pt Temp ABG pH (Temp Correct) ABG pCO2 at Pt Temp ABG pCO2 (Temp Corrct ABG pO2 at Pt Temp ABG pO2 (Temp Correct ABG HCO3 VBG pH VBG HCO3 18 L Sodium Potassium Chloride Carbon Dioxide Anion Gap BUN Creatinine POC Glucose 140 H Random Glucose Fasting Glucose Lactic Acid Lactic Acid F/U @ 2Hr Calcium Ferritin Total Bilirubin Direct Bilirubin AST ALT Alkaline Phosphatase Lactate Dehydrogenase Total Creatine Kinase C-Reactive Protein Total Protein Albumin Ur Specific [place] Urine Protein 2+ H Urine Glucose (UA) 500 H Urine Blood 1+ H Urine Nitrite POS H Ur Leukocyte Esterase TRACE H Urine RBC Urine WBC 10-14 H COVID-19 (NATASHA) 11/29/21 11/30/21 11/30/21 21:29 05:41 05:41 WBC 4.3 L RBC Hgb Hct MCHC Plt Count Immature Gran % (Auto) 0.7 H Neut % (Auto) 81.1 H Lymph % (Auto) 11.7 L [place] % (Auto) Lymph # (Auto) 0.5 L [place] # (Auto) Eos # (Auto) Abs Immat Gran (auto) Absolute Neuts (auto) Absolute Nucleated RBC ABG pH at Pt Temp ABG pH (Temp Correct) ABG pCO2 at Pt Temp ABG pCO2 (Temp Corrct ABG pO2 at Pt Temp ABG pO2 (Temp Correct ABG HCO3 VBG pH VBG HCO3 Sodium Potassium Chloride 110 H Carbon Dioxide 21 L Anion Gap BUN Creatinine POC Glucose 127 H Random Glucose Fasting Glucose Lactic Acid Lactic Acid F/U @ 2Hr Calcium Ferritin Total Bilirubin Direct Bilirubin AST ALT Alkaline Phosphatase Lactate Dehydrogenase Total Creatine Kinase C-Reactive Protein Total Protein Albumin Ur Specific [place] Urine Protein Urine Glucose (UA) Urine Blood Urine Nitrite Ur Leukocyte Esterase Urine RBC Urine WBC COVID-19 (NATASHA) 11/30/21 11/30/21 12/01/21 17:15 21:38 06:00 WBC RBC Hgb Hct MCHC Plt Count Immature Gran % (Auto) Neut % (Auto) Lymph % (Auto) [place] % (Auto) Lymph # (Auto) [place] # (Auto) Eos # (Auto) Abs Immat Gran (auto) Absolute Neuts (auto) Absolute Nucleated RBC ABG pH at Pt Temp ABG pH (Temp Correct) ABG pCO2 at Pt Temp ABG pCO2 (Temp Corrct ABG pO2 at Pt Temp ABG pO2 (Temp Correct ABG HCO3 VBG pH VBG HCO3 Sodium 148 H Potassium Chloride 113 H Carbon Dioxide 20 L Anion Gap BUN Creatinine POC Glucose 144 H 145 H Random Glucose Fasting Glucose Lactic Acid Lactic Acid F/U @ 2Hr Calcium Ferritin Total Bilirubin Direct Bilirubin AST ALT Alkaline Phosphatase Lactate Dehydrogenase Total Creatine Kinase C-Reactive Protein 11.00 H Total Protein Albumin Ur Specific [place] Urine Protein Urine Glucose (UA) Urine Blood Urine Nitrite Ur Leukocyte Esterase Urine RBC Urine WBC COVID-19 (NATASHA) 12/01/21 12/01/21 12/01/21 11:33 17:05 21:37 WBC RBC Hgb Hct MCHC Plt Count Immature Gran % (Auto) Neut % (Auto) Lymph % (Auto) [place] % (Auto) Lymph # (Auto) [place] # (Auto) Eos # (Auto) Abs Immat Gran (auto) Absolute Neuts (auto) Absolute Nucleated RBC ABG pH at Pt Temp ABG pH (Temp Correct) ABG pCO2 at Pt Temp ABG pCO2 (Temp Corrct ABG pO2 at Pt Temp ABG pO2 (Temp Correct ABG HCO3 VBG pH VBG HCO3 Sodium Potassium Chloride Carbon Dioxide Anion Gap BUN Creatinine POC Glucose 156 H 153 H 154 H Random Glucose Fasting Glucose Lactic Acid Lactic Acid F/U @ 2Hr Calcium Ferritin Total Bilirubin Direct Bilirubin AST ALT Alkaline Phosphatase Lactate Dehydrogenase Total Creatine Kinase C-Reactive Protein Total Protein Albumin Ur Specific [place] Urine Protein Urine Glucose (UA) Urine Blood Urine Nitrite Ur Leukocyte Esterase Urine RBC Urine WBC COVID-19 (NATASHA) 12/02/21 12/02/21 12/02/21 05:53 05:53 05:53 WBC 4.0 L RBC Hgb Hct MCHC Plt Count Immature Gran % (Auto) Neut % (Auto) Lymph % (Auto) [place] % (Auto) Lymph # (Auto) [place] # (Auto) Eos # (Auto) Abs Immat Gran (auto) Absolute Neuts (auto) Absolute Nucleated RBC ABG pH at Pt Temp ABG pH (Temp Correct) ABG pCO2 at Pt Temp ABG pCO2 (Temp Corrct ABG pO2 at Pt Temp ABG pO2 (Temp Correct ABG HCO3 VBG pH VBG HCO3 Sodium Potassium Chloride 110 H Carbon Dioxide Anion Gap BUN Creatinine POC Glucose Random Glucose Fasting Glucose Lactic Acid Lactic Acid F/U @ 2Hr Calcium Ferritin Total Bilirubin Direct Bilirubin AST ALT Alkaline Phosphatase Lactate Dehydrogenase Total Creatine Kinase C-Reactive Protein 10.86 H Total Protein Albumin Ur Specific [place] Urine Protein Urine Glucose (UA) Urine Blood Urine Nitrite Ur Leukocyte Esterase Urine RBC Urine WBC COVID-19 (NATASHA) 12/02/21 12/02/21 12/02/21 11:25 15:58 20:03 WBC RBC Hgb Hct MCHC Plt Count Immature Gran % (Auto) Neut % (Auto) Lymph % (Auto) [place] % (Auto) Lymph # (Auto) [place] # (Auto) Eos # (Auto) Abs Immat Gran (auto) Absolute Neuts (auto) Absolute Nucleated RBC ABG pH at Pt Temp ABG pH (Temp Correct) ABG pCO2 at Pt Temp ABG pCO2 (Temp Corrct ABG pO2 at Pt Temp ABG pO2 (Temp Correct ABG HCO3 VBG pH VBG HCO3 Sodium Potassium Chloride Carbon Dioxide Anion Gap BUN Creatinine POC Glucose 120 H 120 H 184 H Random Glucose Fasting Glucose Lactic Acid Lactic Acid F/U @ 2Hr Calcium Ferritin Total Bilirubin Direct Bilirubin AST ALT Alkaline Phosphatase Lactate Dehydrogenase Total Creatine Kinase C-Reactive Protein Total Protein Albumin Ur Specific [place] Urine Protein Urine Glucose (UA) Urine Blood Urine Nitrite Ur Leukocyte Esterase Urine RBC Urine WBC COVID-19 (NATASHA) 12/03/21 12/03/21 12/03/21 11:21 16:38 20:01 WBC RBC Hgb Hct MCHC Plt Count Immature Gran % (Auto) Neut % (Auto) Lymph % (Auto) [place] % (Auto) Lymph # (Auto) [place] # (Auto) Eos # (Auto) Abs Immat Gran (auto) Absolute Neuts (auto) Absolute Nucleated RBC ABG pH at Pt Temp ABG pH (Temp Correct) ABG pCO2 at Pt Temp ABG pCO2 (Temp Corrct ABG pO2 at Pt Temp ABG pO2 (Temp Correct ABG HCO3 VBG pH VBG HCO3 Sodium Potassium Chloride Carbon Dioxide Anion Gap BUN Creatinine POC Glucose 132 H 168 H 194 H Random Glucose Fasting Glucose Lactic Acid Lactic Acid F/U @ 2Hr Calcium Ferritin Total Bilirubin Direct Bilirubin AST ALT Alkaline Phosphatase Lactate Dehydrogenase Total Creatine Kinase C-Reactive Protein Total Protein Albumin Ur Specific [place] Urine Protein Urine Glucose (UA) Urine Blood Urine Nitrite Ur Leukocyte Esterase Urine RBC Urine WBC COVID-19 (NATASHA) 12/04/21 12/04/21 12/04/21 06:25 11:08 16:33 WBC RBC Hgb Hct MCHC Plt Count Immature Gran % (Auto) Neut % (Auto) Lymph % (Auto) [place] % (Auto) Lymph # (Auto) [place] # (Auto) Eos # (Auto) Abs Immat Gran (auto) Absolute Neuts (auto) Absolute Nucleated RBC ABG pH at Pt Temp ABG pH (Temp Correct) ABG pCO2 at Pt Temp ABG pCO2 (Temp Corrct ABG pO2 at Pt Temp ABG pO2 (Temp Correct ABG HCO3 VBG pH VBG HCO3 Sodium 149 H Potassium Chloride 113 H Carbon Dioxide 20 L Anion Gap BUN 24 H D Creatinine POC Glucose 156 H 211 H Random Glucose Fasting Glucose 100 H Lactic Acid Lactic Acid F/U @ 2Hr Calcium Ferritin Total Bilirubin Direct Bilirubin AST ALT Alkaline Phosphatase Lactate Dehydrogenase Total Creatine Kinase C-Reactive Protein 11.93 H Total Protein Albumin Ur Specific [place] Urine Protein Urine Glucose (UA) Urine Blood Urine Nitrite Ur Leukocyte Esterase Urine RBC Urine WBC COVID-19 (NATASHA) 12/04/21 12/05/21 12/05/21 20:19 06:00 10:52 WBC RBC Hgb Hct MCHC Plt Count Immature Gran % (Auto) Neut % (Auto) Lymph % (Auto) [place] % (Auto) Lymph # (Auto) [place] # (Auto) Eos # (Auto) Abs Immat Gran (auto) Absolute Neuts (auto) Absolute Nucleated RBC ABG pH at Pt Temp ABG pH (Temp Correct) ABG pCO2 at Pt Temp ABG pCO2 (Temp Corrct ABG pO2 at Pt Temp ABG pO2 (Temp Correct ABG HCO3 VBG pH VBG HCO3 Sodium 147 H Potassium Chloride 110 H Carbon Dioxide Anion Gap BUN 21 H Creatinine POC Glucose 195 H 125 H Random Glucose Fasting Glucose Lactic Acid Lactic Acid F/U @ 2Hr Calcium Ferritin Total Bilirubin Direct Bilirubin AST ALT Alkaline Phosphatase Lactate Dehydrogenase Total Creatine Kinase C-Reactive Protein 9.15 H Total Protein Albumin Ur Specific [place] Urine Protein Urine Glucose (UA) Urine Blood Urine Nitrite Ur Leukocyte Esterase Urine RBC Urine WBC COVID-19 (NATASHA) 12/05/21 12/05/21 12/06/21 16:38 19:46 06:16 WBC 4.1 L RBC Hgb Hct MCHC Plt Count Immature Gran % (Auto) Neut % (Auto) Lymph % (Auto) [place] % (Auto) Lymph # (Auto) [place] # (Auto) Eos # (Auto) Abs Immat Gran (auto) Absolute Neuts (auto) Absolute Nucleated RBC ABG pH at Pt Temp ABG pH (Temp Correct) ABG pCO2 at Pt Temp ABG pCO2 (Temp Corrct ABG pO2 at Pt Temp ABG pO2 (Temp Correct ABG HCO3 VBG pH VBG HCO3 Sodium Potassium Chloride Carbon Dioxide Anion Gap BUN Creatinine POC Glucose 187 H 210 H Random Glucose Fasting Glucose Lactic Acid Lactic Acid F/U @ 2Hr Calcium Ferritin Total Bilirubin Direct Bilirubin AST ALT Alkaline Phosphatase Lactate Dehydrogenase Total Creatine Kinase C-Reactive Protein Total Protein Albumin Ur Specific [place] Urine Protein Urine Glucose (UA) Urine Blood Urine Nitrite Ur Leukocyte Esterase Urine RBC Urine WBC COVID-19 (NATASHA) 12/06/21 12/06/21 12/06/21 06:16 10:53 15:56 WBC RBC Hgb Hct MCHC Plt Count Immature Gran % (Auto) Neut % (Auto) Lymph % (Auto) [place] % (Auto) Lymph # (Auto) [place] # (Auto) Eos # (Auto) Abs Immat Gran (auto) Absolute Neuts (auto) Absolute Nucleated RBC ABG pH at Pt Temp ABG pH (Temp Correct) ABG pCO2 at Pt Temp ABG pCO2 (Temp Corrct ABG pO2 at Pt Temp ABG pO2 (Temp Correct ABG HCO3 VBG pH VBG HCO3 Sodium 146 H Potassium 3.2 L Chloride 111 H Carbon Dioxide Anion Gap BUN 17 H Creatinine POC Glucose 129 H 207 H Random Glucose Fasting Glucose 115 H Lactic Acid Lactic Acid F/U @ 2Hr Calcium Ferritin Total Bilirubin Direct Bilirubin AST ALT Alkaline Phosphatase Lactate Dehydrogenase Total Creatine Kinase C-Reactive Protein Total Protein Albumin Ur Specific [place] Urine Protein Urine Glucose (UA) Urine Blood Urine Nitrite Ur Leukocyte Esterase Urine RBC Urine WBC COVID-19 (NATASHA) 12/06/21 12/07/21 12/07/21 19:46 07:21 07:39 WBC RBC Hgb Hct MCHC Plt Count Immature Gran % (Auto) Neut % (Auto) Lymph % (Auto) [place] % (Auto) Lymph # (Auto) [place] # (Auto) Eos # (Auto) Abs Immat Gran (auto) Absolute Neuts (auto) Absolute Nucleated RBC ABG pH at Pt Temp ABG pH (Temp Correct) ABG pCO2 at Pt Temp ABG pCO2 (Temp Corrct ABG pO2 at Pt Temp ABG pO2 (Temp Correct ABG HCO3 VBG pH VBG HCO3 Sodium Potassium Chloride 109 H Carbon Dioxide Anion Gap BUN Creatinine POC Glucose 188 H 132 H Random Glucose 155 H Fasting Glucose Lactic Acid Lactic Acid F/U @ 2Hr Calcium Ferritin Total Bilirubin Direct Bilirubin AST ALT Alkaline Phosphatase Lactate Dehydrogenase 674 H Total Creatine Kinase C-Reactive Protein 6.78 H Total Protein Albumin Ur Specific [place] Urine Protein Urine Glucose (UA) Urine Blood Urine Nitrite Ur Leukocyte Esterase Urine RBC Urine WBC COVID-19 (NATASHA) 12/07/21 12/07/21 12/07/21 11:14 16:18 20:07 WBC RBC Hgb Hct MCHC Plt Count Immature Gran % (Auto) Neut % (Auto) Lymph % (Auto) [place] % (Auto) Lymph # (Auto) [place] # (Auto) Eos # (Auto) Abs Immat Gran (auto) Absolute Neuts (auto) Absolute Nucleated RBC ABG pH at Pt Temp ABG pH (Temp Correct) ABG pCO2 at Pt Temp ABG pCO2 (Temp Corrct ABG pO2 at Pt Temp ABG pO2 (Temp Correct ABG HCO3 VBG pH VBG HCO3 Sodium Potassium Chloride Carbon Dioxide Anion Gap BUN Creatinine POC Glucose 141 H 202 H 193 H Random Glucose Fasting Glucose Lactic Acid Lactic Acid F/U @ 2Hr Calcium Ferritin Total Bilirubin Direct Bilirubin AST ALT Alkaline Phosphatase Lactate Dehydrogenase Total Creatine Kinase C-Reactive Protein Total Protein Albumin Ur Specific [place] Urine Protein Urine Glucose (UA) Urine Blood Urine Nitrite Ur Leukocyte Esterase Urine RBC Urine WBC COVID-19 (NATASHA) 12/08/21 12/08/21 12/08/21 07:10 07:18 11:00 WBC RBC Hgb Hct MCHC Plt Count Immature Gran % (Auto) Neut % (Auto) Lymph % (Auto) [place] % (Auto) Lymph # (Auto) [place] # (Auto) Eos # (Auto) Abs Immat Gran (auto) Absolute Neuts (auto) Absolute Nucleated RBC ABG pH at Pt Temp ABG pH (Temp Correct) ABG pCO2 at Pt Temp ABG pCO2 (Temp Corrct ABG pO2 at Pt Temp ABG pO2 (Temp Correct ABG HCO3 VBG pH VBG HCO3 Sodium Potassium 3.2 L Chloride 111 H Carbon Dioxide 18 L Anion Gap BUN 17 H Creatinine POC Glucose 129 H 137 H Random Glucose 138 H Fasting Glucose Lactic Acid Lactic Acid F/U @ 2Hr Calcium Ferritin Total Bilirubin Direct Bilirubin AST 55 H ALT 53 H Alkaline Phosphatase 149 H Lactate Dehydrogenase Total Creatine Kinase C-Reactive Protein Total Protein Albumin Ur Specific [place] Urine Protein Urine Glucose (UA) Urine Blood Urine Nitrite Ur Leukocyte Esterase Urine RBC Urine WBC COVID-19 (NATASHA) 12/08/21 12/08/21 12/09/21 15:50 19:58 06:04 WBC RBC Hgb Hct MCHC Plt Count 469 H D Immature Gran % (Auto) Neut % (Auto) Lymph % (Auto) [place] % (Auto) Lymph # (Auto) [place] # (Auto) Eos # (Auto) Abs Immat Gran (auto) Absolute Neuts (auto) Absolute Nucleated RBC ABG pH at Pt Temp ABG pH (Temp Correct) ABG pCO2 at Pt Temp ABG pCO2 (Temp Corrct ABG pO2 at Pt Temp ABG pO2 (Temp Correct ABG HCO3 VBG pH VBG HCO3 Sodium Potassium Chloride Carbon Dioxide Anion Gap BUN Creatinine POC Glucose 179 H 150 H Random Glucose Fasting Glucose Lactic Acid Lactic Acid F/U @ 2Hr Calcium Ferritin Total Bilirubin Direct Bilirubin AST ALT Alkaline Phosphatase Lactate Dehydrogenase Total Creatine Kinase C-Reactive Protein Total Protein Albumin Ur Specific [place] Urine Protein Urine Glucose (UA) Urine Blood Urine Nitrite Ur Leukocyte Esterase Urine RBC Urine WBC COVID-19 (NATASHA) 12/09/21 12/09/21 12/09/21 06:04 07:32 11:03 WBC RBC Hgb Hct MCHC Plt Count Immature Gran % (Auto) Neut % (Auto) Lymph % (Auto) [place] % (Auto) Lymph # (Auto) [place] # (Auto) Eos # (Auto) Abs Immat Gran (auto) Absolute Neuts (auto) Absolute Nucleated RBC ABG pH at Pt Temp ABG pH (Temp Correct) ABG pCO2 at Pt Temp ABG pCO2 (Temp Corrct ABG pO2 at Pt Temp ABG pO2 (Temp Correct ABG HCO3 VBG pH VBG HCO3 Sodium 149 H Potassium Chloride 116 H Carbon Dioxide 18 L Anion Gap BUN 21 H Creatinine POC Glucose 145 H 158 H Random Glucose 148 H Fasting Glucose Lactic Acid Lactic Acid F/U @ 2Hr Calcium Ferritin Total Bilirubin Direct Bilirubin AST 50 H ALT 54 H Alkaline Phosphatase 161 H Lactate Dehydrogenase 530 H Total Creatine Kinase C-Reactive Protein 3.75 H Total Protein Albumin Ur Specific [place] Urine Protein Urine Glucose (UA) Urine Blood Urine Nitrite Ur Leukocyte Esterase Urine RBC Urine WBC COVID-19 (NATASHA) 12/09/21 12/09/21 12/09/21 15:49 16:38 21:04 WBC RBC Hgb Hct MCHC Plt Count Immature Gran % (Auto) Neut % (Auto) Lymph % (Auto) [place] % (Auto) Lymph # (Auto) [place] # (Auto) Eos # (Auto) Abs Immat Gran (auto) Absolute Neuts (auto) Absolute Nucleated RBC ABG pH at Pt Temp ABG pH (Temp Correct) ABG pCO2 at Pt Temp ABG pCO2 (Temp Corrct ABG pO2 at Pt Temp ABG pO2 (Temp Correct ABG HCO3 VBG pH VBG HCO3 Sodium 151 H Potassium Chloride 119 H Carbon Dioxide 16 L Anion Gap BUN 22 H Creatinine POC Glucose 156 H 156 H Random Glucose 161 H Fasting Glucose Lactic Acid Lactic Acid F/U @ 2Hr Calcium Ferritin Total Bilirubin Direct Bilirubin AST ALT Alkaline Phosphatase Lactate Dehydrogenase Total Creatine Kinase C-Reactive Protein Total Protein Albumin Ur Specific [place] Urine Protein Urine Glucose (UA) Urine Blood Urine Nitrite Ur Leukocyte Esterase Urine RBC Urine WBC COVID-19 (NATASHA) 12/10/21 12/10/21 12/10/21 07:31 08:04 08:04 WBC 13.9 H RBC Hgb Hct MCHC Plt Count 608 H D Immature Gran % (Auto) Neut % (Auto) Lymph % (Auto) [place] % (Auto) Lymph # (Auto) [place] # (Auto) Eos # (Auto) Abs Immat Gran (auto) Absolute Neuts (auto) Absolute Nucleated RBC ABG pH at Pt Temp ABG pH (Temp Correct) ABG pCO2 at Pt Temp ABG pCO2 (Temp Corrct ABG pO2 at Pt Temp ABG pO2 (Temp Correct ABG HCO3 VBG pH VBG HCO3 Sodium 157 H Potassium Chloride 124 H Carbon Dioxide 15 L Anion Gap 22 H BUN 29 H Creatinine POC Glucose 172 H Random Glucose 165 H Fasting Glucose Lactic Acid Lactic Acid F/U @ 2Hr Calcium Ferritin Total Bilirubin Direct Bilirubin AST ALT Alkaline Phosphatase Lactate Dehydrogenase Total Creatine Kinase C-Reactive Protein Total Protein Albumin Ur Specific [place] Urine Protein Urine Glucose (UA) Urine Blood Urine Nitrite Ur Leukocyte Esterase Urine RBC Urine WBC COVID-19 ([facility]) 12/10/21 12/10/21 12/10/21 11:14 11:53 12:00 WBC RBC Hgb Hct MCHC Plt Count Immature Gran % (Auto) Neut % (Auto) Lymph % (Auto) [place] % (Auto) Lymph # (Auto) [place] # (Auto) Eos # (Auto) Abs Immat Gran (auto) Absolute Neuts (auto) Absolute Nucleated RBC ABG pH at Pt Temp ABG pH (Temp Correct) ABG pCO2 at Pt Temp ABG pCO2 (Temp Corrct ABG pO2 at Pt Temp ABG pO2 (Temp Correct ABG HCO3 VBG pH VBG HCO3 Sodium 158 H Potassium Chloride 125 H Carbon Dioxide 14 L Anion Gap 23 H BUN 31 H Creatinine 1.44 H POC Glucose 157 H Random Glucose 167 H Fasting Glucose Lactic Acid 3.6 H* Lactic Acid F/U @ 2Hr Calcium Ferritin Total Bilirubin Direct Bilirubin AST ALT Alkaline Phosphatase Lactate Dehydrogenase Total Creatine Kinase C-Reactive Protein Total Protein Albumin Ur Specific [place] Urine Protein Urine Glucose (UA) Urine Blood Urine Nitrite Ur Leukocyte Esterase Urine RBC Urine WBC COVID-19 ([facility]) 12/10/21 12/10/21 12/10/21 15:11 15:11 16:24 WBC RBC Hgb Hct MCHC Plt Count Immature Gran % (Auto) Neut % (Auto) Lymph % (Auto) [place] % (Auto) Lymph # (Auto) [place] # (Auto) Eos # (Auto) Abs Immat Gran (auto) Absolute Neuts (auto) Absolute Nucleated RBC ABG pH at Pt Temp ABG pH (Temp Correct) ABG pCO2 at Pt Temp ABG pCO2 (Temp Corrct ABG pO2 at Pt Temp ABG pO2 (Temp Correct ABG HCO3 VBG pH VBG HCO3 Sodium 160 H* Potassium Chloride 126 H Carbon Dioxide 12 L Anion Gap 26 H BUN 37 H Creatinine 1.95 H POC Glucose 182 H Random Glucose 197 H Fasting Glucose Lactic Acid Lactic Acid F/U @ 2Hr 3.1 H* Calcium 10.4 H Ferritin Total Bilirubin Direct Bilirubin AST ALT Alkaline Phosphatase Lactate Dehydrogenase Total Creatine Kinase 415 H D C-Reactive Protein Total Protein Albumin Ur Specific [place] Urine Protein Urine Glucose (UA) Urine Blood Urine Nitrite Ur Leukocyte Esterase Urine RBC Urine WBC COVID-19 ([facility]) 12/10/21 12/10/21 12/10/21 18:06 18:53 23:35 WBC RBC Hgb Hct MCHC Plt Count Immature Gran % (Auto) Neut % (Auto) Lymph % (Auto) [place] % (Auto) Lymph # (Auto) [place] # (Auto) Eos # (Auto) Abs Immat Gran (auto) Absolute Neuts (auto) Absolute Nucleated RBC ABG pH at Pt Temp 7.49 H ABG pH (Temp Correct) 7.47 H ABG pCO2 at Pt Temp 16 L* ABG pCO2 (Temp Corrct 17 L* ABG pO2 at Pt Temp 70 L ABG pO2 (Temp Correct 74 L ABG HCO3 12 L VBG pH VBG HCO3 Sodium 152 H Potassium Chloride 119 H Carbon Dioxide 16 L Anion Gap BUN 40 H Creatinine 2.09 H POC Glucose Random Glucose 157 H Fasting Glucose Lactic Acid Lactic Acid F/U @ 2Hr Calcium Ferritin Total Bilirubin 1.1 H Direct Bilirubin AST 43 H ALT 44 H Alkaline Phosphatase 139 H Lactate Dehydrogenase Total Creatine Kinase C-Reactive Protein Total Protein Albumin Ur Specific [place] >= 1.030 H Urine Protein 2+ H Urine Glucose (UA) Urine Blood 3+ H Urine Nitrite Ur Leukocyte Esterase 1+ H Urine RBC 5-9 H Urine WBC COVID-19 ([facility]) 12/10/21 12/10/21 12/11/21 23:35 23:51 05:15 WBC 16.1 H 15.4 H RBC Hgb Hct MCHC Plt Count 564 H 573 H Immature Gran % (Auto) 0.9 H 0.7 H Neut % (Auto) 76.5 H 79.4 H Lymph % (Auto) 14.3 L 12.4 L [place] % (Auto) Lymph # (Auto) [place] # (Auto) 1.3 H Eos # (Auto) Abs Immat Gran (auto) 0.14 H 0.11 H Absolute Neuts (auto) 12.3 H 12.3 H Absolute Nucleated RBC 0.040 H 0.020 H ABG pH at Pt Temp ABG pH (Temp Correct) ABG pCO2 at Pt Temp ABG pCO2 (Temp Corrct ABG pO2 at Pt Temp ABG pO2 (Temp Correct ABG HCO3 VBG pH 7.47 H VBG HCO3 17 L Sodium Potassium Chloride Carbon Dioxide Anion Gap BUN Creatinine POC Glucose Random Glucose Fasting Glucose Lactic Acid Lactic Acid F/U @ 2Hr Calcium Ferritin Total Bilirubin Direct Bilirubin AST ALT Alkaline Phosphatase Lactate Dehydrogenase Total Creatine Kinase C-Reactive Protein Total Protein Albumin Ur Specific [place] Urine Protein Urine Glucose (UA) Urine Blood Urine Nitrite Ur Leukocyte Esterase Urine RBC Urine WBC COVID-19 ([facility]) 12/11/21 12/11/21 12/11/21 05:15 05:15 05:24 WBC 15.1 H RBC Hgb Hct MCHC Plt Count 562 H Immature Gran % (Auto) Neut % (Auto) Lymph % (Auto) [place] % (Auto) Lymph # (Auto) [place] # (Auto) Eos # (Auto) Abs Immat Gran (auto) Absolute Neuts (auto) Absolute Nucleated RBC 0.030 H ABG pH at Pt Temp ABG pH (Temp Correct) ABG pCO2 at Pt Temp ABG pCO2 (Temp Corrct ABG pO2 at Pt Temp ABG pO2 (Temp Correct ABG HCO3 VBG pH 7.46 H VBG HCO3 19 L Sodium 148 H Potassium 2.9 L Chloride 112 H Carbon Dioxide 19 L Anion Gap BUN 39 H Creatinine 1.83 H POC Glucose Random Glucose 303 H Fasting Glucose Lactic Acid Lactic Acid F/U @ 2Hr Calcium Ferritin Total Bilirubin 1.2 H Direct Bilirubin 0.8 H AST ALT 41 H Alkaline Phosphatase 127 H Lactate Dehydrogenase 571 H Total Creatine Kinase C-Reactive Protein 1.71 H Total Protein Albumin Ur Specific [place] Urine Protein Urine Glucose (UA) Urine Blood Urine Nitrite Ur Leukocyte Esterase Urine RBC Urine WBC COVID-19 ([facility]) 12/11/21 12/11/21 12/11/21 07:25 08:05 11:10 WBC RBC Hgb Hct MCHC Plt Count Immature Gran % (Auto) Neut % (Auto) Lymph % (Auto) [place] % (Auto) Lymph # (Auto) [place] # (Auto) Eos # (Auto) Abs Immat Gran (auto) Absolute Neuts (auto) Absolute Nucleated RBC ABG pH at Pt Temp ABG pH (Temp Correct) ABG pCO2 at Pt Temp ABG pCO2 (Temp Corrct ABG pO2 at Pt Temp ABG pO2 (Temp Correct ABG HCO3 VBG pH VBG HCO3 Sodium Potassium 2.9 L Chloride 112 H Carbon Dioxide 15 L Anion Gap BUN 35 H Creatinine 1.68 H POC Glucose 249 H 149 H Random Glucose 261 H Fasting Glucose Lactic Acid Lactic Acid F/U @ 2Hr Calcium Ferritin Total Bilirubin Direct Bilirubin AST ALT Alkaline Phosphatase Lactate Dehydrogenase Total Creatine Kinase C-Reactive Protein Total Protein Albumin Ur Specific [place] Urine Protein Urine Glucose (UA) Urine Blood Urine Nitrite Ur Leukocyte Esterase Urine RBC Urine WBC COVID-19 ([facility]) 12/11/21 12/11/21 12/11/21 11:46 13:37 16:26 WBC RBC Hgb Hct MCHC Plt Count Immature Gran % (Auto) Neut % (Auto) Lymph % (Auto) [place] % (Auto) Lymph # (Auto) [place] # (Auto) Eos # (Auto) Abs Immat Gran (auto) Absolute Neuts (auto) Absolute Nucleated RBC ABG pH at Pt Temp ABG pH (Temp Correct) ABG pCO2 at Pt Temp ABG pCO2 (Temp Corrct ABG pO2 at Pt Temp ABG pO2 (Temp Correct ABG HCO3 VBG pH VBG HCO3 21 L Sodium 147 H Potassium Chloride 112 H Carbon Dioxide Anion Gap BUN 33 H Creatinine 1.59 H POC Glucose 199 H Random Glucose 162 H Fasting Glucose Lactic Acid Lactic Acid F/U @ 2Hr Calcium Ferritin Total Bilirubin Direct Bilirubin AST ALT Alkaline Phosphatase Lactate Dehydrogenase Total Creatine Kinase C-Reactive Protein Total Protein Albumin Ur Specific [place] Urine Protein Urine Glucose (UA) Urine Blood Urine Nitrite Ur Leukocyte Esterase Urine RBC Urine WBC COVID-19 ([facility]) 12/11/21 12/11/21 12/11/21 19:33 19:33 20:32 WBC RBC Hgb Hct MCHC Plt Count Immature Gran % (Auto) Neut % (Auto) Lymph % (Auto) [place] % (Auto) Lymph # (Auto) [place] # (Auto) Eos # (Auto) Abs Immat Gran (auto) Absolute Neuts (auto) Absolute Nucleated RBC ABG pH at Pt Temp ABG pH (Temp Correct) ABG pCO2 at Pt Temp ABG pCO2 (Temp Corrct ABG pO2 at Pt Temp ABG pO2 (Temp Correct ABG HCO3 VBG pH VBG HCO3 18 L Sodium Potassium Chloride 115 H Carbon Dioxide 18 L Anion Gap BUN 27 H Creatinine POC Glucose 156 H Random Glucose 185 H Fasting Glucose Lactic Acid Lactic Acid F/U @ 2Hr Calcium Ferritin 5011 H Total Bilirubin Direct Bilirubin AST ALT Alkaline Phosphatase Lactate Dehydrogenase 443 H Total Creatine Kinase C-Reactive Protein Total Protein Albumin Ur Specific [place] Urine Protein Urine Glucose (UA) Urine Blood Urine Nitrite Ur Leukocyte Esterase Urine RBC Urine WBC COVID-19 ([facility]) 12/12/21 12/12/21 12/12/21 05:35 05:35 05:39 WBC 13.4 H RBC 4.01 L Hgb 11.1 L Hct 35.0 L MCHC Plt Count 431 H Immature Gran % (Auto) 1.1 H Neut % (Auto) 78.4 H Lymph % (Auto) 9.2 L [place] % (Auto) Lymph # (Auto) [place] # (Auto) Eos # (Auto) 0.5 H Abs Immat Gran (auto) 0.15 H Absolute Neuts (auto) 10.5 H Absolute Nucleated RBC 0.030 H ABG pH at Pt Temp ABG pH (Temp Correct) ABG pCO2 at Pt Temp ABG pCO2 (Temp Corrct ABG pO2 at Pt Temp ABG pO2 (Temp Correct ABG HCO3 VBG pH VBG HCO3 19 L Sodium 148 H Potassium Chloride 118 H Carbon Dioxide 21 L Anion Gap BUN 21 H Creatinine POC Glucose Random Glucose 210 H Fasting Glucose Lactic Acid Lactic Acid F/U @ 2Hr Calcium Ferritin Total Bilirubin Direct Bilirubin AST ALT 32 H Alkaline Phosphatase Lactate Dehydrogenase Total Creatine Kinase C-Reactive Protein Total Protein 5.7 L Albumin 3.4 L Ur Specific [place] Urine Protein Urine Glucose (UA) Urine Blood Urine Nitrite Ur Leukocyte Esterase Urine RBC Urine WBC COVID-19 ([facility]) 12/12/21 12/12/21 12/12/21 07:44 11:47 16:25 WBC RBC Hgb Hct MCHC Plt Count Immature Gran % (Auto) Neut % (Auto) Lymph % (Auto) [place] % (Auto) Lymph # (Auto) [place] # (Auto) Eos # (Auto) Abs Immat Gran (auto) Absolute Neuts (auto) Absolute Nucleated RBC ABG pH at Pt Temp ABG pH (Temp Correct) ABG pCO2 at Pt Temp ABG pCO2 (Temp Corrct ABG pO2 at Pt Temp ABG pO2 (Temp Correct ABG HCO3 VBG pH VBG HCO3 Sodium Potassium Chloride Carbon Dioxide Anion Gap BUN Creatinine POC Glucose 190 H 301 H 149 H Random Glucose Fasting Glucose Lactic Acid Lactic Acid F/U @ 2Hr Calcium Ferritin Total Bilirubin Direct Bilirubin AST ALT Alkaline Phosphatase Lactate Dehydrogenase Total Creatine Kinase C-Reactive Protein Total Protein Albumin Ur Specific [place] Urine Protein Urine Glucose (UA) Urine Blood Urine Nitrite Ur Leukocyte Esterase Urine RBC Urine WBC COVID-19 ([facility]) 12/12/21 12/12/21 12/13/21 19:56 20:32 04:50 WBC RBC 3.52 L Hgb 9.7 L Hct 31.4 L MCHC 30.9 L Plt Count Immature Gran % (Auto) 1.2 H Neut % (Auto) 92.1 H Lymph % (Auto) 5.1 L [place] % (Auto) 1.5 L Lymph # (Auto) 0.4 L [place] # (Auto) Eos # (Auto) Abs Immat Gran (auto) 0.10 H Absolute Neuts (auto) Absolute Nucleated RBC ABG pH at Pt Temp ABG pH (Temp Correct) ABG pCO2 at Pt Temp ABG pCO2 (Temp Corrct ABG pO2 at Pt Temp ABG pO2 (Temp Correct ABG HCO3 VBG pH VBG HCO3 17 L Sodium Potassium Chloride Carbon Dioxide Anion Gap BUN Creatinine POC Glucose 140 H Random Glucose Fasting Glucose Lactic Acid Lactic Acid F/U @ 2Hr Calcium Ferritin Total Bilirubin Direct Bilirubin AST ALT Alkaline Phosphatase Lactate Dehydrogenase Total Creatine Kinase C-Reactive Protein Total Protein Albumin Ur Specific [place] Urine Protein Urine Glucose (UA) Urine Blood Urine Nitrite Ur Leukocyte Esterase Urine RBC Urine WBC COVID-19 ([facility]) 12/13/21 12/13/21 12/13/21 04:50 04:54 07:16 WBC RBC Hgb Hct MCHC Plt Count Immature Gran % (Auto) Neut % (Auto) Lymph % (Auto) [place] % (Auto) Lymph # (Auto) [place] # (Auto) Eos # (Auto) Abs Immat Gran (auto) Absolute Neuts (auto) Absolute Nucleated RBC ABG pH at Pt Temp ABG pH (Temp Correct) ABG pCO2 at Pt Temp ABG pCO2 (Temp Corrct ABG pO2 at Pt Temp ABG pO2 (Temp Correct ABG HCO3 VBG pH 7.31 L VBG HCO3 11 L Sodium 146 H Potassium Chloride 117 H Carbon Dioxide 14 L Anion Gap BUN Creatinine POC Glucose 196 H Random Glucose 217 H Fasting Glucose Lactic Acid Lactic Acid F/U @ 2Hr Calcium Ferritin 2707 H Total Bilirubin Direct Bilirubin AST ALT Alkaline Phosphatase Lactate Dehydrogenase Total Creatine Kinase C-Reactive Protein Total Protein 5.2 L Albumin 3.1 L Ur Specific [place] Urine Protein Urine Glucose (UA) Urine Blood Urine Nitrite Ur Leukocyte Esterase Urine RBC Urine WBC COVID-19 ([facility]) 12/13/21 12/13/21 12/14/21 11:17 17:31 00:02 WBC RBC Hgb Hct MCHC Plt Count Immature Gran % (Auto) Neut % (Auto) Lymph % (Auto) [place] % (Auto) Lymph # (Auto) [place] # (Auto) Eos # (Auto) Abs Immat Gran (auto) Absolute Neuts (auto) Absolute Nucleated RBC ABG pH at Pt Temp ABG pH (Temp Correct) ABG pCO2 at Pt Temp ABG pCO2 (Temp Corrct ABG pO2 at Pt Temp ABG pO2 (Temp Correct ABG HCO3 VBG pH VBG HCO3 Sodium Potassium Chloride Carbon Dioxide Anion Gap BUN Creatinine POC Glucose 271 H 287 H 339 H Random Glucose Fasting Glucose Lactic Acid Lactic Acid F/U @ 2Hr Calcium Ferritin Total Bilirubin Direct Bilirubin AST ALT Alkaline Phosphatase Lactate Dehydrogenase Total Creatine Kinase C-Reactive Protein Total Protein Albumin Ur Specific [place] Urine Protein Urine Glucose (UA) Urine Blood Urine Nitrite Ur Leukocyte Esterase Urine RBC Urine WBC COVID-19 ([facility]) 12/14/21 12/14/21 12/14/21 05:20 05:20 05:22 WBC 23.4 H RBC 3.38 L Hgb 9.6 L Hct 29.1 L MCHC Plt Count 426 H D Immature Gran % (Auto) 0.9 H Neut % (Auto) 96.8 H Lymph % (Auto) 0.3 L [place] % (Auto) 1.8 L Lymph # (Auto) 0.1 L [place] # (Auto) Eos # (Auto) Abs Immat Gran (auto) 0.20 H Absolute Neuts (auto) 22.6 H Absolute Nucleated RBC ABG pH at Pt Temp ABG pH (Temp Correct) ABG pCO2 at Pt Temp ABG pCO2 (Temp Corrct ABG pO2 at Pt Temp ABG pO2 (Temp Correct ABG HCO3 VBG pH VBG HCO3 Sodium Potassium 3.2 L Chloride 112 H Carbon Dioxide 17 L Anion Gap BUN 19 H Creatinine POC Glucose 384 H* Random Glucose 439 H* Fasting Glucose Lactic Acid Lactic Acid F/U @ 2Hr Calcium 8.2 L Ferritin 3825 H Total Bilirubin Direct Bilirubin AST ALT Alkaline Phosphatase Lactate Dehydrogenase Total Creatine Kinase C-Reactive Protein Total Protein 5.1 L Albumin 2.9 L Ur Specific [place] Urine Protein Urine Glucose (UA) Urine Blood Urine Nitrite Ur Leukocyte Esterase Urine RBC Urine WBC COVID-19 ([facility]) 12/14/21 12/14/21 12/14/21 05:24 07:32 09:04 WBC RBC Hgb Hct MCHC Plt Count Immature Gran % (Auto) Neut % (Auto) Lymph % (Auto) [place] % (Auto) Lymph # (Auto) [place] # (Auto) Eos # (Auto) Abs Immat Gran (auto) Absolute Neuts (auto) Absolute Nucleated RBC ABG pH at Pt Temp ABG pH (Temp Correct) ABG pCO2 at Pt Temp ABG pCO2 (Temp Corrct ABG pO2 at Pt Temp ABG pO2 (Temp Correct ABG HCO3 VBG pH VBG HCO3 15 L Sodium Potassium Chloride Carbon Dioxide Anion Gap BUN Creatinine POC Glucose 360 H* 365 H* Random Glucose Fasting Glucose Lactic Acid Lactic Acid F/U @ 2Hr Calcium Ferritin Total Bilirubin Direct Bilirubin AST ALT Alkaline Phosphatase Lactate Dehydrogenase Total Creatine Kinase C-Reactive Protein Total Protein Albumin Ur Specific [place] Urine Protein Urine Glucose (UA) Urine Blood Urine Nitrite Ur Leukocyte Esterase Urine RBC Urine WBC COVID-19 ([facility]) Microbiology: Microbiology 12/12/21 15:40 Sputum - Suctioned Gram Stain - Final 12/12/21 15:40 Sputum - Suctioned Sputum Culture - Preliminary No growth to date. 12/10/21 23:34 Cerebrospinal Fluid Gram Stain - Final 12/10/21 23:34 Cerebrospinal Fluid CSF Examination - Final 12/10/21 23:34 Cerebrospinal Fluid Fluid Description - Final 12/10/21 23:34 Cerebrospinal Fluid CSF Culture - Preliminary No growth after 2 days 12/10/21 11:53 Blood - Subclavian Blood Culture - Preliminary No growth after 48 hours. 12/10/21 11:53 Blood - Subclavian Blood Culture - Preliminary No growth after 48 hours. 12/10/21 23:34 Spine Direct Acid Fast Bacilli Smear - Preliminary 12/10/21 23:34 Spine Acid Fast Bacilli Culture & Smear - Preliminary 12/10/21 Unknown Urine Catheterized - Kern Catheter Urine Culture - Final 12/04/21 11:43 Blood - Venous Blood Culture - Final No growth after 5 days. 12/04/21 11:43 Blood - Venous Blood Culture - Final No growth after 5 days. 11/29/21 14:01 Blood - Venous Blood Culture - Final No growth after 5 days. 11/29/21 13:51 Blood - Venous Blood Culture - Final No growth after 5 days. 11/29/21 Unknown Urine clean catch - Urine [place] top Urine Culture - Final Assessment and Plan (1) ARDS (adult respiratory distress syndrome): Status: Acute (2) Suppression of immune system subtherapeutic: Status: Acute (3) Pneumonia due to 2019 novel coronavirus: Status: Acute (4) Hypogammaglobulinemia: Status: Acute Plan Tocilizumab IV start IvIG today (with no IgA traces) 0.3-0.5g/kg plan for bronchoscopy to r/o immunocompramise infectious conditions check SARs Cov2 iGG titers, if not present then consider monoclonal ab therapy continue ventilator support critical condition Procedures Date of Service Date of Service: 12/14/21
[2021-12-14 09:59] LABS: Lactate Dehydrogenase 415 U/L (122-220)
--- NOTE | 2021-12-14 10:11 | MHC.CLN ---
F/U PT REMAINS INTUBATED AND SEDATED PT RECEIVING TF GLUCERNA AT MAX GOAL RATE 50ML/HR WITH 240ML Q 4 HRS PROVIDES 1200KCALS (1659 KCALS WITH SEDATION; 27.5KCALS/KG BASED ON CMW), 50G PROTEIN (1.2G/KG), 2464ML TOTAL WATER FROM FORMULA AND FLUSHES RECOMMEND DECREASING FREE WATER FLUSHES 120ML TID MONITOR TOLERANCE, RESIDUALS AND LYTES
[2021-12-14 10:12] LABS: Glucose, Whole Blood 376 mg/dL (60-115)
[2021-12-14 11:13] LABS: Glucose, Whole Blood 364 mg/dL (60-115)
[2021-12-14] MEDS: propofoL 1,000 MG/100 ML VIAL 14.49 MG IVCONT ×2 (11:52→17:56)
[2021-12-14] MEDS: methylPREDNISolone Sod Succ 500 MG in 0.9 % Sodium Chloride 50 ML 66 MG IV (11:52)
[2021-12-14] MEDS: Doxycycline Hyclate 100 MG in 0.9 % Sodium Chloride 250 ML 250 MG IV (11:58)
[2021-12-14 12:04] LABS: Glucose, Whole Blood 364 mg/dL (60-115)
[2021-12-14 12:10] LABS: Influenza A PCR NEGATIVE (Negative); Influenza B PCR NEGATIVE (Negative); Resp Syncy Virus RNA Qual PCR NEGATIVE (Negative); SARS COV2 PCR INHOUSE POSITIVE (Negative)
[2021-12-14 13:21] LABS: Glucose, Whole Blood 267 mg/dL (60-115)
[2021-12-14] MEDS: 0.9 % Sodium Chloride Flush 3 ML SYRINGE IVFLUSH (13:25)
--- NOTE | 2021-12-14 14:07 | MHC.CM.PN ---
Patient remains intubated/vented in ICU. Per Dr Mcrae, waiting for patient's neurologist at [facility] to return call to ICU to see if transfer can be coordinated. IV IGG will be given. Patient is from home with 04/06 care. Patient received 2 Pfizer vaccines. No HCP on file. Continue to monitor for d/c needs.
[2021-12-14 14:12] LABS: Glucose, Whole Blood 247 mg/dL (60-115)
--- NOTE | 2021-12-14 14:49 | OP_ITS ---
SURGEON: Salvador Muniz MD PREOPERATIVE DIAGNOSIS: COVID pneumonia and acute respiratory distress syndrome. POSTOPERATIVE DIAGNOSIS: COVID pneumonia and acute respiratory distress syndrome. PROCEDURE PERFORMED: Bronchoscopy. The consent was obtained from the patient's next of kin her mother. ESTIMATED BLOOD LOSS: COMPLICATIONS: ANESTHESIA: ASSISTANTS: SPECIMENS: ASA CLASSIFICATION: 4. DESCRIPTION OF PROCEDURE: After the patient was sedated, the flexible digital bronchoscope was placed through already placed ET tube to the level of the main zuleyka. The ET tube appeared to be somewhat affected by buildup of mucus. The bronchoscope had some resistance, but was able to able to pass through. The tracheobronchial tree was examined to the subsegmental level. There was evidence of erythema of the airways throughout also evidence of bronchomalacia. The patient did have some washings introduced with normal saline and suctioning back. We did clear up some aspirate that had some mucus plugs and some mucus. No evidence of any bleeding. After obtaining the bronchial washings bilaterally, the bronchoscope was then removed. The total endoscopic time approximately 5 minutes. Patient tolerated the procedure well. Vital signs were stable throughout the procedure. INTERPRETATION: Evidence of significant COVID-19 pneumonia with significant involvement of the airways causing significant evidence of bronchitis and bronchomalacia, status post bronchial washings bilaterally, sent for Pneumocystis, fungal infections, Gram staining culture, Nocardia, and will also try to send for COVID-19. MD LUI Gaxiola/BERNADETTE / [id number]
[2021-12-14 15:08] LABS: Glucose, Whole Blood 214 mg/dL (60-115)
[2021-12-14] MEDS: Insulin Regular/NS 100 UNIT/100 ML PLAST..BAG 13 UNIT IVCONT (15:38)
[2021-12-14 16:19] LABS: Glucose, Whole Blood 191 mg/dL (60-115)
--- NOTE | 2021-12-14 16:55 | P.PNCC_ITS ---
Subjective Subjective Date of Service: 12/14/21 Interval History: 31-year-old morbidly obese type 2 diabetic with background history of autoimmune encephalitis as well as peripheral neuropathy who was on a once yearly rituximab infusion last given 5 months ago and therefore Jermaine really deficient in and also on IV IG and we are in the midst of replacing that for the month of November as anamika condon who had very altered mental status last week manifested by catatonia uncooperative [place] and developed hypoxemic respiratory failure was intubated extubated and then rapidly requiring re-intubation for profound hypoxia with and respiratory distress and profound unresponsiveness currently with min minimal minutes ventilatory requirements and FiO2 of 21% looks like were in position to wean and her 13 L fluid overload primarily iatrogenic treated with the diuresing almost 5 L in the last 2 days and CVP diminish now to between 5 and 7 so hopefully most of that abnormal CT scan appearance is on day basis of the fluid overload so sedation holiday started and were concerned of course about b ehavioral issues and placed on pressure support and thus far doing beautifully from the standpoint of the pressure support abut the we empirically started with thinking of starting antipsychotic medications so that we could adeno begin to wean the ventilator Critical Care Time (minutes): 60 Physical Exam Verdana 4l Vital Signs: Verdana 4d Verdana 4d Vital Signs: Verdana 4d Verdana 4Bd Last Vital Signs Verdana 4d Noise Abatement Engineer New 4d Noise Abatement Engineer New 4d Temp 98.2 F 12/14/21 16:00 Noise Abatement Engineer New 4d Pulse 101 H 12/14/21 16:00 Noise Abatement Engineer New 4d Resp 25 H 12/14/21 16:00 BP 126/70 12/14/21 16:00 Pulse Ox 94 12/14/21 16:00 Oxygen Flow Rate 4 11/29/21 11:52 BMI result Body Mass Index 43.0 Excellent vital signs and neurologically intact no focal issues no seizure activity and EEG was done which did not reveal any focal epileptic activity just encephalopathy which could be drug-induced Abdomen benign soft no organomegaly Lungs no adventitious sounds Cardiac no gallops Objective Data Labs CBC & Chem 7: 12/15/21 05:15 12/15/21 05:15 Labs: Laboratory Results - last 24 hr 12/13/21 12/14/21 12/14/21 17:31 00:02 05:20 WBC 23.4 H RBC 3.38 L Hgb 9.6 L Hct 29.1 L MCV 86.1 MCH 28.4 MCHC 33.0 RDW 15.2 Plt Count 426 H D MPV 10.9 Immature Gran % (Auto) 0.9 H Neut % (Auto) 96.8 H Lymph % (Auto) 0.3 L [place] % (Auto) 1.8 L Eos % (Auto) 0.1 Baso % (Auto) 0.1 Lymph # (Auto) 0.1 L [place] # (Auto) 0.4 Eos # (Auto) 0.0 Baso # (Auto) 0.0 Abs Immat Gran (auto) 0.20 H Absolute Neuts (auto) 22.6 H Absolute Nucleated RBC 0.000 Nucleated RBC % (auto) 0.0 Smear Tech's Comments VERIFIED VBG pH VBG pCO2 VBG pO2 VBG HCO3 VBG O2 Saturation VBG Base Excess Sodium Potassium Chloride Carbon Dioxide Anion Gap BUN Creatinine Estim Creat Clear Calc Estimated GFR POC Glucose 287 H 339 H Random Glucose Calcium Phosphorus Magnesium Ferritin Total Bilirubin Direct Bilirubin AST ALT Alkaline Phosphatase Lactate Dehydrogenase Total Protein Albumin Influenza Type A (PCR) Influenza Type B (PCR) RSV RNA Qual (PCR) SARS-CoV-2 RNA (RT-PCR) 12/14/21 12/14/21 12/14/21 05:20 05:22 05:24 WBC RBC Hgb Hct MCV MCH MCHC RDW Plt Count MPV Immature Gran % (Auto) Neut % (Auto) Lymph % (Auto) [place] % (Auto) Eos % (Auto) Baso % (Auto) Lymph # (Auto) [place] # (Auto) Eos # (Auto) Baso # (Auto) Abs Immat Gran (auto) Absolute Neuts (auto) Absolute Nucleated RBC Nucleated RBC % (auto) Smear Tech's Comments VBG pH 7.40 VBG pCO2 25 VBG pO2 52 VBG HCO3 15 L VBG O2 Saturation 84.0 VBG Base Excess -7.4 Sodium 139 Potassium 3.2 L Chloride 112 H Carbon Dioxide 17 L Anion Gap 13 BUN 19 H Creatinine 1.23 Estim Creat Clear Calc 66.9 Estimated GFR 51 POC Glucose 384 H* Random Glucose 439 H* Calcium 8.2 L Phosphorus 3.0 Magnesium 2.1 Ferritin 3825 H Total Bilirubin 0.6 Direct Bilirubin 0.4 AST 13 ALT 21 Alkaline Phosphatase 113 Lactate Dehydrogenase Total Protein 5.1 L Albumin 2.9 L Influenza Type A (PCR) Influenza Type B (PCR) RSV RNA Qual (PCR) SARS-CoV-2 RNA (RT-PCR) 12/14/21 12/14/21 12/14/21 07:32 09:04 09:04 WBC RBC Hgb Hct MCV MCH MCHC RDW Plt Count MPV Immature Gran % (Auto) Neut % (Auto) Lymph % (Auto) [place] % (Auto) Eos % (Auto) Baso % (Auto) Lymph # (Auto) [place] # (Auto) Eos # (Auto) Baso # (Auto) Abs Immat Gran (auto) Absolute Neuts (auto) Absolute Nucleated RBC Nucleated RBC % (auto) Smear Tech's Comments VBG pH VBG pCO2 VBG pO2 VBG HCO3 VBG O2 Saturation VBG Base Excess Sodium Potassium Chloride Carbon Dioxide Anion Gap BUN Creatinine Estim Creat Clear Calc Estimated GFR POC Glucose 360 H* 365 H* Random Glucose Calcium Phosphorus Magnesium Ferritin Total Bilirubin Direct Bilirubin AST ALT Alkaline Phosphatase Lactate Dehydrogenase 415 H Total Protein Albumin Influenza Type A (PCR) Influenza Type B (PCR) RSV RNA Qual (PCR) SARS-CoV-2 RNA (RT-PCR) 12/14/21 12/14/21 12/14/21 10:06 11:00 11:05 WBC RBC Hgb Hct MCV MCH MCHC RDW Plt Count MPV Immature Gran % (Auto) Neut % (Auto) Lymph % (Auto) [place] % (Auto) Eos % (Auto) Baso % (Auto) Lymph # (Auto) [place] # (Auto) Eos # (Auto) Baso # (Auto) Abs Immat Gran (auto) Absolute Neuts (auto) Absolute Nucleated RBC Nucleated RBC % (auto) Smear Tech's Comments VBG pH VBG pCO2 VBG pO2 VBG HCO3 VBG O2 Saturation VBG Base Excess Sodium Potassium Chloride Carbon Dioxide Anion Gap BUN Creatinine Estim Creat Clear Calc Estimated GFR POC Glucose 376 H* 364 H* Random Glucose Calcium Phosphorus Magnesium Ferritin Total Bilirubin Direct Bilirubin AST ALT Alkaline Phosphatase Lactate Dehydrogenase Total Protein Albumin Influenza Type A (PCR) NEGATIVE Influenza Type B (PCR) NEGATIVE RSV RNA Qual (PCR) NEGATIVE SARS-CoV-2 RNA (RT-PCR) POSITIVE A 12/14/21 12/14/21 12/14/21 11:56 13:16 14:07 WBC RBC Hgb Hct MCV MCH MCHC RDW Plt Count MPV Immature Gran % (Auto) Neut % (Auto) Lymph % (Auto) [place] % (Auto) Eos % (Auto) Baso % (Auto) Lymph # (Auto) [place] # (Auto) Eos # (Auto) Baso # (Auto) Abs Immat Gran (auto) Absolute Neuts (auto) Absolute Nucleated RBC Nucleated RBC % (auto) Smear Tech's Comments VBG pH VBG pCO2 VBG pO2 VBG HCO3 VBG O2 Saturation VBG Base Excess Sodium Potassium Chloride Carbon Dioxide Anion Gap BUN Creatinine Estim Creat Clear Calc Estimated GFR POC Glucose 364 H* 267 H 247 H Random Glucose Calcium Phosphorus Magnesium Ferritin Total Bilirubin Direct Bilirubin AST ALT Alkaline Phosphatase Lactate Dehydrogenase Total Protein Albumin Influenza Type A (PCR) Influenza Type B (PCR) RSV RNA Qual (PCR) SARS-CoV-2 RNA (RT-PCR) 12/14/21 12/14/21 15:04 16:16 WBC RBC Hgb Hct MCV MCH MCHC RDW Plt Count MPV Immature Gran % (Auto) Neut % (Auto) Lymph % (Auto) [place] % (Auto) Eos % (Auto) Baso % (Auto) Lymph # (Auto) [place] # (Auto) Eos # (Auto) Baso # (Auto) Abs Immat Gran (auto) Absolute Neuts (auto) Absolute Nucleated RBC Nucleated RBC % (auto) Smear Tech's Comments VBG pH VBG pCO2 VBG pO2 VBG HCO3 VBG O2 Saturation VBG Base Excess Sodium Potassium Chloride Carbon Dioxide Anion Gap BUN Creatinine Estim Creat Clear Calc Estimated GFR POC Glucose 214 H 191 H Random Glucose Calcium Phosphorus Magnesium Ferritin Total Bilirubin Direct Bilirubin AST ALT Alkaline Phosphatase Lactate Dehydrogenase Total Protein Albumin Influenza Type A (PCR) Influenza Type B (PCR) RSV RNA Qual (PCR) SARS-CoV-2 RNA (RT-PCR) Microbiology Microbiology Results: Microbiology 12/14/21 10:33 Bronchial Washings Gram Stain - Final 12/12/21 15:40 Sputum - Suctioned Gram Stain - Final 12/12/21 15:40 Sputum - Suctioned Sputum Culture - Final 12/10/21 23:34 Cerebrospinal Fluid Gram Stain - Final 12/10/21 23:34 Cerebrospinal Fluid CSF Examination - Final 12/10/21 23:34 Cerebrospinal Fluid Fluid Description - Final 12/10/21 23:34 Cerebrospinal Fluid CSF Culture - Final No growth after 3 days. 12/10/21 11:53 Blood - Subclavian Blood Culture - Preliminary No growth after 48 hours. 12/10/21 11:53 Blood - Subclavian Blood Culture - Preliminary No growth after 48 hours. 12/10/21 23:34 Spine Direct Acid Fast Bacilli Smear - Preliminary 12/10/21 23:34 Spine Acid Fast Bacilli Culture & Smear - Preliminary 12/10/21 Unknown Urine Catheterized - Kern Catheter Urine Culture - Final 12/04/21 11:43 Blood - Venous Blood Culture - Final No growth after 5 days. 12/04/21 11:43 Blood - Venous Blood Culture - Final No growth after 5 days. 11/29/21 14:01 Blood - Venous Blood Culture - Final No growth after 5 days. 11/29/21 13:51 Blood - Venous Blood Culture - Final No growth after 5 days. 11/29/21 Unknown Urine clean catch - Urine [place] top Urine Culture - Final Progress Note: A&P Assessment and plan (1) Hypogammaglobulinemia: Status: Acute (2) Suppression of immune system subtherapeutic: Status: Acute (3) ARDS (adult respiratory distress syndrome): Status: Acute (4) Acute kidney injury: Status: Acute (5) Hypernatremia: Status: Acute (6) Encephalopathy, metabolic: Status: Acute (7) Pneumonia due to 2019 novel coronavirus: Status: Acute (8) Hypoxia: Status: Acute (9) Fever: Status: Acute (10) UTI (urinary tract infection): Status: Acute (11) Upper respiratory tract infection: Status: Acute (12) Hx of Escherichia coli septicemia: Status: Acute (13) Clinical decompensation: Status: Acute (14) Gait instability: Status: Acute (15) Bacteremia: Status: Acute (16) Sepsis: Status: Acute (17) UTI (urinary tract infection): Status: Acute (18) Upper respiratory tract infection: Status: Acute (19) Yeast infection involving the vagina and surrounding area: Status: Acute (20) Breakthrough bleeding on Depo-Provera: Status: Acute (21) On Depo-Provera for contraception: Status: Acute (22) DM2 (diabetes mellitus, type 2): Status: Acute (23) Obesity due to excess calories: Status: Acute (24) Diabetes mellitus with hyperglycemia: Status: Acute (25) Elevated vitamin B12 level: Status: Acute (26) Vitamin D deficiency: Status: Acute (27) Peripheral neuropathy: Status: Acute (28) Gastric paresis: Status: Acute (29) Esophagitis with gastritis: Status: Acute (30) Bipolar disorder: Status: Acute (31) Acquired hypothyroidism: Status: Acute (32) Hyperlipidemia: Status: Acute (33) Essential hypertension: Status: Acute Plan Plan is to support on the ventilator overnight. The midazolam and propofol in the morning as she completes her diuresis and then initiate Lamictal at 25 mg and p.r.n. and may be a preparatory dose of Haldol at 0.5 mg IV for behavioral control when she comes off sedation and then pressure support Quality Stroke Does the patient have a stroke diagnosis?: No VTE Prior VTE?: No VTE Risk Level:: Medical - moderate - high VTE Device Contraindication: Treatment Not Indicated VTE Drug Contraindication: N/A - Med Ordered
[2021-12-14 17:02] LABS: Glucose, Whole Blood 194 mg/dL (60-115)
[2021-12-14] MEDS: Immun Glob G(IgG)/Gly/IGA Ov50 300 ML IV (17:32)
[2021-12-14 19:13] LABS: Glucose, Whole Blood 192 mg/dL (60-115)
[2021-12-14 20:10] LABS: Anion Gap 9 (12-20); Blood Urea Nitrogen 22 mg/dL (9-16); Calcium 8.1 mg/dL (8.4-10.2); Carbon Dioxide 20 mmol/L (22-29); Chloride 117 mmol/L (96-108); Estimated Glomerular Filt Rate > 60; Glucose Random 212 mg/dL (60-115); Potassium 3.1 mmol/L (3.3-5.1); Sodium 143 mmol/L (135-145)
[2021-12-14 20:39] LABS: Glucose, Whole Blood 182 mg/dL (60-115)
[2021-12-14] MEDS: Chlorhexidine Gluc Oral Rinse 15 ML MOUTHWASH BUCCAL (22:05)
[2021-12-14 22:06] LABS: Glucose, Whole Blood 208 mg/dL (60-115)
[2021-12-14] MEDS: Doxycycline Hyclate 100 MG in 0.9 % Sodium Chloride 250 ML 166.67 MG IV (23:40)
[2021-12-15] VITALS (33 sets, daily range): BP systolic 93–151; BP diastolic 42–80; PULSE 22–150; RESP 14–25; TEMP 33.9–37.6; O2SAT 91–99
[2021-12-15 00:06] LABS: Glucose, Whole Blood 204 mg/dL (60-115)
[2021-12-15 02:02] LABS: Glucose, Whole Blood 154 mg/dL (60-115)
[2021-12-15] MEDS: propofoL 1,000 MG/100 ML VIAL 23.18 MG IVCONT ×2 (02:04→05:15)
[2021-12-15 03:58] LABS: Glucose, Whole Blood 142 mg/dL (60-115)
[2021-12-15 04:17] LABS: SARS COV2 IgG Negative (Negative)
[2021-12-15] MEDS: Pantoprazole Sodium 40 MG/10 ML VIAL IVPUSH (05:15)
[2021-12-15] MEDS: Midazolam HCl/NS 50 MG/50 ML PLAST..BAG IVCONT (05:15)
[2021-12-15] MEDS: Heparin Sodium,Porcine 5,000 UNIT/ML VIAL 5000 UNIT SUBCUT ×3 (05:16→20:05)
[2021-12-15 05:43] LABS: VBG Base Excess -4.8 mmol/L; VBG HCO3 17 mmol/L (22-26); VBG pCO2 25 mmHg; VBG pH 7.44 (7.32-7.43); VBG pO2 48 mmHg
[2021-12-15 05:45] LABS: Venous Blood Gas Refer to POC result
[2021-12-15 05:55] LABS: Basophils Percent Auto 0.1 % (0-2); Hematocrit 26.6 % (37.0-47.0); Hemoglobin 8.7 g/dl (12.0-16.0); Imm Gran Abs Auto 0.13 X10*3/uL (0.00-0.03); Lymphocytes Absolute Auto 0.3 X10*3/uL (1.2-4.9); Mean Corpuscular HGB Conc 32.7 g/dl (31.0-35.0); Mean Corpuscular Hemoglobin 28.3 pg (27.0-33.0); Mean Corpuscular Volume 86.6 fL (80.0-98.0); Mean Platelet Volume 10.6 fL (9.4-12.3); Monocytes Absolute Auto 0.5 X10*3/uL (0.1-1.2); Monocytes Percent Auto 3.7 % (2-11); Neutrophils Percent Auto 93.2 % (45-73); Platelet Count 307 X10*3/uL (160-400); Red Blood Count 3.07 X10*6/uL (4.20-5.50); Red Cell Distribution Width 15.8 % (11.0-16.0); SCAN SMEAR FLAG 1; White Blood Count 12.8 X10*3/uL (4.8-10.8)
[2021-12-15 05:56] LABS: MANUAL DIFF FLAG SCAN
[2021-12-15 06:26] LABS: Alanine Aminotransferase 20 U/L (0-31); Albumin Level 2.7 g/dL (3.5-5.0); Alkaline Phosphatase 96 U/L (39-117); Anion Gap 11 (12-20); Aspartate Amino Transferase 9 U/L (5-31); Bilirubin Direct 0.3 mg/dL (0.0-0.5); Bilirubin Total 0.5 mg/dL (0.0-1.0); Blood Urea Nitrogen 22 mg/dL (9-16); Calcium 8.4 mg/dL (8.4-10.2); Carbon Dioxide 18 mmol/L (22-29); Chloride 117 mmol/L (96-108); Creatinine Clr Calc Pharmacy 91.5; Estimated Glomerular Filt Rate > 60; Glucose Random 135 mg/dL (60-115); Magnesium 2.2 mg/dL (1.6-2.6); Potassium 3.5 mmol/L (3.3-5.1); Sodium 142 mmol/L (135-145); Total Protein 6.2 g/dL (6.5-8.0)
[2021-12-15 06:42] LABS: SLIDE REVIEW VERIFIED
[2021-12-15 07:19] LABS: Ferritin 1990 ng/mL (10-122)
[2021-12-15] MEDS: fluvoxaMINE Maleate 50 MG TABLET 100 MG PO ×2 (08:04→20:05)
[2021-12-15] MEDS: Levothyroxine Sodium 100 MCG/5 ML VIAL 37.5 MCG IVPUSH (08:04)
[2021-12-15] MEDS: Chlorhexidine Gluc Oral Rinse 15 ML MOUTHWASH BUCCAL ×3 (08:04→20:05)
[2021-12-15 08:05] LABS: Glucose, Whole Blood 121 mg/dL (60-115)
[2021-12-15] MEDS: Insulin Regular/NS 100 UNIT/100 ML PLAST..BAG 12 UNIT IVCONT ×2 (08:05)
[2021-12-15] MEDS: 0.9 % Sodium Chloride Flush 3 ML SYRINGE IVFLUSH ×2 (08:05→16:29)
[2021-12-15] MEDS: Albuterol/Iprat 2.5/0.5MG 3 ML AMPUL.NEB INHALE ×4 (08:20→20:33)
[2021-12-15] MEDS: Furosemide 20 MG/2 ML VIAL IVPUSH (08:22)
[2021-12-15] MEDS: Potassium Chloride Packet 20 MEQ PACKET 40 MEQ PO (08:22)
[2021-12-15] MEDS: Haloperidol Lactate 5 MG/ML VIAL IV ×2 (10:08→20:05)
[2021-12-15 10:13] LABS: Glucose, Whole Blood 137 mg/dL (60-115)
[2021-12-15 11:50] LABS: Glucose, Whole Blood 122 mg/dL (60-115)
[2021-12-15] MEDS: Doxycycline Hyclate 100 MG in 0.9 % Sodium Chloride 250 ML 166.67 MG IV (12:21)
[2021-12-15] MEDS: lamoTRIgine 25 MG TABLET PO ×2 (12:23→20:05)
[2021-12-15] MEDS: Insulin Regular/NS 100 UNIT/100 ML PLAST..BAG 6 UNIT IVCONT (12:27)
[2021-12-15 13:57] LABS: Glucose, Whole Blood 122 mg/dL (60-115)
--- NOTE | 2021-12-15 14:24 | MHC.CM.PN ---
Pt continues on ventilatory support with plans to reduce sedation in the next 24-48 hours. D/C plan to be reviewed once pt is extubated.
[2021-12-15 15:56] LABS: Glucose, Whole Blood 103 mg/dL (60-115)
[2021-12-15 17:09] LABS: Glucose, Whole Blood 101 mg/dL (60-115)
--- NOTE | 2021-12-15 17:16 | P.PNCC_ITS ---
Subjective Subjective Date of Service: 12/15/21 Interval History: 31-year-old female with hypoxemic respiratory failure who is COVID positive and probably did have COVID-19 pneumonitis but was severely encephalopathic manifested mostly by catatonia and uncooperative uncommunicative behavior last week and then had an episode unresponsive with more profound hypoxia and was intubated was 13 L positive iatrogenic fluid overload of 13 L and has had 2 days of diuresis hopefully leading to an improvement in her CT scan is well but clinically now down to FiO2 of 21% and minute ventilatory needs less than 8 liters/minute so we are going to stop sedation place her on pressure support initiate Lamictal and IV Haldol for behavioral control and then hopefully when fully awake extubate Background of autoimmune encephalitis and peripheral polyneuropathy and is receiving the 2nd of 2 days of IV IG replacement for the month of November but no further steroids to be given as per her neurologist's instructions Critical Care Time (minutes): 60 Physical Exam Verdana 4l Vital Signs: Verdana 4d Verdana 4d Vital Signs: Verdana 4d Verdana 4Bd Last Vital Signs Verdana 4d Pharmacy Coordinator New 4d Pharmacy Coordinator New 4d Temp 97.5 F 12/15/21 17:00 Pharmacy Coordinator New 4d Pulse 99 12/15/21 17:00 Pharmacy Coordinator New 4d Resp 20 12/15/21 17:00 BP 95/42 L 12/15/21 17:00 Pulse Ox 93 12/15/21 17:00 Oxygen Flow Rate 4 11/29/21 11:52 BMI result Body Mass Index 43.0 Stable vital signs awakening but no cognitive function and very lethargic so unfortunately will stop the attempted weaning restart her for her tube feedings and continue Lamictal and Haldol as needed in the hopes of being able to extubate in the morning Cardiac stable with no gallops no neck vein distension good bilateral carotid upstrokes Lungs without adventitious sounds Abdomen without organomegaly Objective Data Labs CBC & Chem 7: 12/15/21 05:15 12/15/21 05:15 Labs: Laboratory Results - last 24 hr 12/14/21 12/14/21 12/14/21 09:04 19:08 19:40 WBC RBC Hgb Hct MCV MCH MCHC RDW Plt Count MPV Immature Gran % (Auto) Neut % (Auto) Lymph % (Auto) [place] % (Auto) Eos % (Auto) Baso % (Auto) Lymph # (Auto) [place] # (Auto) Eos # (Auto) Baso # (Auto) Abs Immat Gran (auto) Absolute Neuts (auto) Absolute Nucleated RBC Nucleated RBC % (auto) Smear Tech's Comments VBG pH VBG pCO2 VBG pO2 VBG HCO3 VBG O2 Saturation VBG Base Excess Sodium 143 Potassium 3.1 L Chloride 117 H Carbon Dioxide 20 L Anion Gap 9 L BUN 22 H Creatinine 0.98 Estim Creat Clear Calc 84.0 Estimated GFR > 60 POC Glucose 192 H Random Glucose 212 H Calcium 8.1 L Phosphorus Magnesium Ferritin Total Bilirubin Direct Bilirubin AST ALT Alkaline Phosphatase Total Protein Albumin SARS-CoV-2 IgG Ab Negative 12/14/21 12/14/21 12/14/21 20:11 22:01 23:46 WBC RBC Hgb Hct MCV MCH MCHC RDW Plt Count MPV Immature Gran % (Auto) Neut % (Auto) Lymph % (Auto) [place] % (Auto) Eos % (Auto) Baso % (Auto) Lymph # (Auto) [place] # (Auto) Eos # (Auto) Baso # (Auto) Abs Immat Gran (auto) Absolute Neuts (auto) Absolute Nucleated RBC Nucleated RBC % (auto) Smear Tech's Comments VBG pH VBG pCO2 VBG pO2 VBG HCO3 VBG O2 Saturation VBG Base Excess Sodium Potassium Chloride Carbon Dioxide Anion Gap BUN Creatinine Estim Creat Clear Calc Estimated GFR POC Glucose 182 H 208 H 204 H Random Glucose Calcium Phosphorus Magnesium Ferritin Total Bilirubin Direct Bilirubin AST ALT Alkaline Phosphatase Total Protein Albumin SARS-CoV-2 IgG Ab 12/15/21 12/15/21 12/15/21 01:58 03:53 05:15 WBC 12.8 H RBC 3.07 L Hgb 8.7 L Hct 26.6 L MCV 86.6 MCH 28.3 MCHC 32.7 RDW 15.8 Plt Count 307 D MPV 10.6 Immature Gran % (Auto) 1.0 H Neut % (Auto) 93.2 H Lymph % (Auto) 2.0 L [place] % (Auto) 3.7 Eos % (Auto) 0.0 Baso % (Auto) 0.1 Lymph # (Auto) 0.3 L [place] # (Auto) 0.5 Eos # (Auto) 0.0 Baso # (Auto) 0.0 Abs Immat Gran (auto) 0.13 H Absolute Neuts (auto) 12.0 H Absolute Nucleated RBC 0.000 Nucleated RBC % (auto) 0.0 Smear Tech's Comments VERIFIED VBG pH VBG pCO2 VBG pO2 VBG HCO3 VBG O2 Saturation VBG Base Excess Sodium Potassium Chloride Carbon Dioxide Anion Gap BUN Creatinine Estim Creat Clear Calc Estimated GFR POC Glucose 154 H 142 H Random Glucose Calcium Phosphorus Magnesium Ferritin Total Bilirubin Direct Bilirubin AST ALT Alkaline Phosphatase Total Protein Albumin SARS-CoV-2 IgG Ab 12/15/21 12/15/21 12/15/21 05:15 05:36 08:00 WBC RBC Hgb Hct MCV MCH MCHC RDW Plt Count MPV Immature Gran % (Auto) Neut % (Auto) Lymph % (Auto) [place] % (Auto) Eos % (Auto) Baso % (Auto) Lymph # (Auto) [place] # (Auto) Eos # (Auto) Baso # (Auto) Abs Immat Gran (auto) Absolute Neuts (auto) Absolute Nucleated RBC Nucleated RBC % (auto) Smear Tech's Comments VBG pH 7.44 H VBG pCO2 25 VBG pO2 48 VBG HCO3 17 L VBG O2 Saturation 82.0 VBG Base Excess -4.8 Sodium 142 Potassium 3.5 Chloride 117 H Carbon Dioxide 18 L Anion Gap 11 L BUN 22 H Creatinine 0.90 Estim Creat Clear Calc 91.5 Estimated GFR > 60 POC Glucose 121 H Random Glucose 135 H Calcium 8.4 Phosphorus 2.0 L Magnesium 2.2 Ferritin 1990 H Total Bilirubin 0.5 Direct Bilirubin 0.3 AST 9 ALT 20 Alkaline Phosphatase 96 Total Protein 6.2 L D Albumin 2.7 L SARS-CoV-2 IgG Ab 12/15/21 12/15/21 12/15/21 10:09 11:46 13:54 WBC RBC Hgb Hct MCV MCH MCHC RDW Plt Count MPV Immature Gran % (Auto) Neut % (Auto) Lymph % (Auto) [place] % (Auto) Eos % (Auto) Baso % (Auto) Lymph # (Auto) [place] # (Auto) Eos # (Auto) Baso # (Auto) Abs Immat Gran (auto) Absolute Neuts (auto) Absolute Nucleated RBC Nucleated RBC % (auto) Smear Tech's Comments VBG pH VBG pCO2 VBG pO2 VBG HCO3 VBG O2 Saturation VBG Base Excess Sodium Potassium Chloride Carbon Dioxide Anion Gap BUN Creatinine Estim Creat Clear Calc Estimated GFR POC Glucose 137 H 122 H 122 H Random Glucose Calcium Phosphorus Magnesium Ferritin Total Bilirubin Direct Bilirubin AST ALT Alkaline Phosphatase Total Protein Albumin SARS-CoV-2 IgG Ab 12/15/21 12/15/21 15:52 17:04 WBC RBC Hgb Hct MCV MCH MCHC RDW Plt Count MPV Immature Gran % (Auto) Neut % (Auto) Lymph % (Auto) [place] % (Auto) Eos % (Auto) Baso % (Auto) Lymph # (Auto) [place] # (Auto) Eos # (Auto) Baso # (Auto) Abs Immat Gran (auto) Absolute Neuts (auto) Absolute Nucleated RBC Nucleated RBC % (auto) Smear Tech's Comments VBG pH VBG pCO2 VBG pO2 VBG HCO3 VBG O2 Saturation VBG Base Excess Sodium Potassium Chloride Carbon Dioxide Anion Gap BUN Creatinine Estim Creat Clear Calc Estimated GFR POC Glucose 103 101 Random Glucose Calcium Phosphorus Magnesium Ferritin Total Bilirubin Direct Bilirubin AST ALT Alkaline Phosphatase Total Protein Albumin SARS-CoV-2 IgG Ab Microbiology Microbiology Results: Microbiology 12/10/21 11:53 Blood - Subclavian Blood Culture - Final No growth after 5 days. 12/10/21 11:53 Blood - Subclavian Blood Culture - Final No growth after 5 days. 12/14/21 10:33 Bronchial Washings Gram Stain - Final 12/14/21 10:33 Bronchial Washings Routine Culture - Preliminary Culture in progress. 12/12/21 15:40 Sputum - Suctioned Gram Stain - Final 12/12/21 15:40 Sputum - Suctioned Sputum Culture - Final 12/10/21 23:34 Cerebrospinal Fluid Gram Stain - Final 12/10/21 23:34 Cerebrospinal Fluid CSF Examination - Final 12/10/21 23:34 Cerebrospinal Fluid Fluid Description - Final 12/10/21 23:34 Cerebrospinal Fluid CSF Culture - Final No growth after 3 days. 12/10/21 23:34 Spine Direct Acid Fast Bacilli Smear - Preliminary 12/10/21 23:34 Spine Acid Fast Bacilli Culture & Smear - Preliminary 12/10/21 Unknown Urine Catheterized - Kern Catheter Urine Culture - Final 12/04/21 11:43 Blood - Venous Blood Culture - Final No growth after 5 days. 12/04/21 11:43 Blood - Venous Blood Culture - Final No growth after 5 days. 11/29/21 14:01 Blood - Venous Blood Culture - Final No growth after 5 days. 11/29/21 13:51 Blood - Venous Blood Culture - Final No growth after 5 days. 11/29/21 Unknown Urine clean catch - Urine [place] top Urine Culture - Final Progress Note: A&P Assessment and plan (1) Hypogammaglobulinemia: Status: Acute (2) Suppression of immune system subtherapeutic: Status: Acute (3) ARDS (adult respiratory distress syndrome): Status: Acute (4) Acute kidney injury: Status: Acute (5) Hypernatremia: Status: Acute (6) Encephalopathy, metabolic: Status: Acute (7) Pneumonia due to 2019 novel coronavirus: Status: Acute (8) Hypoxia: Status: Acute (9) Fever: Status: Acute (10) UTI (urinary tract infection): Status: Acute (11) Upper respiratory tract infection: Status: Acute (12) Hx of Escherichia coli septicemia: Status: Acute (13) Clinical decompensation: Status: Acute (14) Gait instability: Status: Acute (15) Bacteremia: Status: Acute (16) Sepsis: Status: Acute (17) UTI (urinary tract infection): Status: Acute (18) Upper respiratory tract infection: Status: Acute (19) Yeast infection involving the vagina and surrounding area: Status: Acute (20) Breakthrough bleeding on Depo-Provera: Status: Acute (21) On Depo-Provera for contraception: Status: Acute (22) DM2 (diabetes mellitus, type 2): Status: Acute (23) Obesity due to excess calories: Status: Acute (24) Diabetes mellitus with hyperglycemia: Status: Acute (25) Elevated vitamin B12 level: Status: Acute (26) Vitamin D deficiency: Status: Acute (27) Peripheral neuropathy: Status: Acute (28) Gastric paresis: Status: Acute (29) Esophagitis with gastritis: Status: Acute (30) Bipolar disorder: Status: Acute (31) Acquired hypothyroidism: Status: Acute (32) Hyperlipidemia: Status: Acute (33) Essential hypertension: Status: Acute Plan Maintain pressure support mechanism and keeping off sedation unless there is breakthrough delirium and will attempt extubation in the morning Follow CVP and if it climbs higher than 7 will introduce another diuresis with L asix Quality Stroke Does the patient have a stroke diagnosis?: No VTE Prior VTE?: No VTE Risk Level:: Medical - moderate - high VTE Device Contraindication: Treatment Not Indicated VTE Drug Contraindication: N/A - Med Ordered
[2021-12-15 18:54] LABS: Glucose, Whole Blood 140 mg/dL (60-115)
[2021-12-15] MEDS: propofoL 1,000 MG/100 ML VIAL 11.59 MG IVCONT (21:08)
[2021-12-15 21:28] LABS: Glucose, Whole Blood 180 mg/dL (60-115)
[2021-12-16] VITALS (34 sets, daily range): BP systolic 85–140; BP diastolic 39–103; PULSE 25–132; RESP 18–36; TEMP 33.8–37.4; O2SAT 93–99
[2021-12-16 00:04] LABS: Glucose, Whole Blood 149 mg/dL (60-115)
[2021-12-16] MEDS: Doxycycline Hyclate 100 MG in 0.9 % Sodium Chloride 250 ML 166.67 MG IV ×2 (00:10→10:46)
[2021-12-16] MEDS: Potassium Phosphate/NS 15 MMOL/250 ML PLAST..BAG 62.5 MMOL IV (00:11)
[2021-12-16 02:01] LABS: Glucose, Whole Blood 129 mg/dL (60-115)
[2021-12-16] MEDS: propofoL 1,000 MG/100 ML VIAL 17.39 MG IVCONT ×2 (02:31→05:24)
[2021-12-16 04:08] LABS: Glucose, Whole Blood 125 mg/dL (60-115)
[2021-12-16] MEDS: Furosemide 20 MG/2 ML VIAL IVPUSH (04:31)
[2021-12-16] MEDS: Pantoprazole Sodium 40 MG/10 ML VIAL IVPUSH (05:25)
[2021-12-16] MEDS: Heparin Sodium,Porcine 5,000 UNIT/ML VIAL 5000 UNIT SUBCUT ×3 (05:25→22:51)
[2021-12-16 05:42] LABS: VBG Base Excess -0.2 mmol/L; VBG HCO3 22 mmol/L (22-26); VBG pCO2 28 mmHg; VBG pH 7.49 (7.32-7.43); VBG pO2 43 mmHg
[2021-12-16 05:44] LABS: MANUAL DIFF FLAG NO
[2021-12-16 05:46] LABS: Glucose, Whole Blood 143 mg/dL (60-115)
[2021-12-16 05:48] LABS: Venous Blood Gas Refer to POC result
[2021-12-16 05:52] LABS: Eosinophils Absolute Auto 0.1 X10*3/uL (0.0-0.4); Eosinophils Percent Auto 1.3 % (0-4); Hematocrit 26.5 % (37.0-47.0); Hemoglobin 8.6 g/dl (12.0-16.0); Imm Gran Abs Auto 0.07 X10*3/uL (0.00-0.03); Imm Gran Pct Auto 1.5 % (0.0-0.4); Lymphocytes Absolute Auto 0.5 X10*3/uL (1.2-4.9); Lymphocytes Percent Auto 10.3 % (20-40); Mean Corpuscular HGB Conc 32.5 g/dl (31.0-35.0); Mean Corpuscular Hemoglobin 28.5 pg (27.0-33.0); Mean Corpuscular Volume 87.7 fL (80.0-98.0); Mean Platelet Volume 10.6 fL (9.4-12.3); Monocytes Absolute Auto 0.3 X10*3/uL (0.1-1.2); Monocytes Percent Auto 6.7 % (2-11); Neutrophils Absolute Auto 3.8 x10*3/uL (2.0-8.3); Neutrophils Percent Auto 80.2 % (45-73); Platelet Count 234 X10*3/uL (160-400); Red Blood Count 3.02 X10*6/uL (4.20-5.50); Red Cell Distribution Width 16.6 % (11.0-16.0); White Blood Count 4.8 X10*3/uL (4.8-10.8)
[2021-12-16 06:11] LABS: Alanine Aminotransferase 24 U/L (0-31); Albumin Level 2.8 g/dL (3.5-5.0); Alkaline Phosphatase 83 U/L (39-117); Anion Gap 11 (12-20); Aspartate Amino Transferase 23 U/L (5-31); Bilirubin Direct 0.3 mg/dL (0.0-0.5); Bilirubin Total 0.5 mg/dL (0.0-1.0); Blood Urea Nitrogen 24 mg/dL (9-16); Calcium 8.3 mg/dL (8.4-10.2); Carbon Dioxide 22 mmol/L (22-29); Chloride 112 mmol/L (96-108); Creatinine Clr Calc Pharmacy 93.5; Estimated Glomerular Filt Rate > 60; Glucose Random 150 mg/dL (60-115); Phosphorus 3.1 mg/dL (2.7-4.5); Potassium 3.4 mmol/L (3.3-5.1); Sodium 142 mmol/L (135-145); Total Protein 7.4 g/dL (6.5-8.0)
[2021-12-16 06:35] LABS: Ferritin 1385 ng/mL (10-122)
[2021-12-16 07:37] LABS: Glucose, Whole Blood 148 mg/dL (60-115)
[2021-12-16] MEDS: Potassium Chloride Packet 20 MEQ PACKET PO (08:20)
[2021-12-16] MEDS: Chlorhexidine Gluc Oral Rinse 15 ML MOUTHWASH BUCCAL ×2 (08:20→13:18)
[2021-12-16] MEDS: Levothyroxine Sodium 100 MCG/5 ML VIAL 37.5 MCG IVPUSH (08:20)
[2021-12-16] MEDS: lamoTRIgine 25 MG TABLET PO (08:21)
[2021-12-16] MEDS: 0.9 % Sodium Chloride Flush 3 ML SYRINGE IVFLUSH ×2 (08:21→13:22)
[2021-12-16] MEDS: fluvoxaMINE Maleate 50 MG TABLET 100 MG PO (08:21)
[2021-12-16] MEDS: QUEtiapine Fumarate 25 MG TABLET PO (08:21)
[2021-12-16] MEDS: Albuterol/Iprat 2.5/0.5MG 3 ML AMPUL.NEB INHALE ×4 (08:37→20:34)
[2021-12-16 09:58] LABS: Glucose, Whole Blood 124 mg/dL (60-115)
[2021-12-16] MEDS: dexmedeTOMIDidine HCL/NS 400 MCG/100 ML INFUS..BTL 9.66 MCG IVCONT (10:35)
--- NOTE | 2021-12-16 11:12 | MHC.CLN ---
F/U PT RECEIVING TF GLUCERNA AT MAX GOAL RATE 50ML/HR WITH 120ML Q 8 HRS PROVIDES 1200KCALS (1812 KCALS WITH SEDATION; 30KCALS/KG BASED ON CMW), 50G PROTEIN (1.2G/KG), 1384ML TOTAL WATER FROM FORMULA AND FLUSHES (23ML/KG) CONITNUE TO MONITOR TOLERANCE, RESIDUALS AND LYTES
--- NOTE | 2021-12-16 11:56 | P.PNCC_ITS ---
Subjective Subjective Date of Service: 12/16/21 Interval History: 31-year-old female with background history of autoimmune encephalitis as well as peripheral polyneuropathy on monthly IV IG which we administered here 2 days ago and twice yearly rituximab last given in June presented with a patchy bilateral variable attenuation infiltrate chest x-ray but considering that she has [place] early deficient this could represent an opportunistic infection versus possible COVID as she was COVID positive Her behavior has been a difficulty with a superimposed background of a bipolar issues and she had been on an antipsychotic medication but apparently behaves pretty normally on the outside here she was catatonic difficult to deal with and became progressively 100 requiring intubation and as well as for a hypoxic respiratory failure which was profound none and today chest x-ray appears to be fairly clear she is only being covered by doxycycline as well as fluvoxamine and of course are steroids Nikkie for the a.m. the underlying COVID diagnosis and were trying to gently introduce Lamictal and Seroquel for behavioral control because she continues to wake up with an agitated delirium so at this point we stop propofol switched her to dexmedetomidine in addition and we await her awakening at that point being that she has had only on an FiO2 of 21% were going to attempt a ventilator wean Critical Care Time (minutes): 45 Physical Exam Verdana 4l Vital Signs: Verdana 4d Verdana 4d Vital Signs: Verdana 4d Verdana 4Bd Last Vital Signs Verdana 4d Flask Pusher New 4d Flask Pusher New 4d Temp 98.4 F 12/16/21 11:00 Flask Pusher New 4d Pulse 65 12/16/21 11:38 Flask Pusher New 4d Resp 18 12/16/21 11:38 BP 85/39 L 12/16/21 11:00 Pulse Ox 96 12/16/21 11:00 Oxygen Flow Rate 4 11/29/21 11:52 BMI result Body Mass Index 43.0 Still remains sedated and intubated but nonfocal neurologically moving all 4 extremities abdomen soft with no organomegaly and tolerating feedings Lungs with mild bilateral rhonchi no other adventitious sounds Cardiac exam totally normal by bedside echo class 1 LV function Skin intact Objective Data Labs CBC & Chem 7: 12/16/21 05:35 12/16/21 05:35 Labs: Laboratory Results - last 24 hr 12/15/21 12/15/21 12/15/21 13:54 15:52 17:04 WBC RBC Hgb Hct MCV MCH MCHC RDW Plt Count MPV Immature Gran % (Auto) Neut % (Auto) Lymph % (Auto) [place] % (Auto) Eos % (Auto) Baso % (Auto) Lymph # (Auto) [place] # (Auto) Eos # (Auto) Baso # (Auto) Abs Immat Gran (auto) Absolute Neuts (auto) Absolute Nucleated RBC Nucleated RBC % (auto) VBG pH VBG pCO2 VBG pO2 VBG HCO3 VBG O2 Saturation VBG Base Excess Sodium Potassium Chloride Carbon Dioxide Anion Gap BUN Creatinine Estim Creat Clear Calc Estimated GFR POC Glucose 122 H 103 101 Random Glucose Calcium Phosphorus Magnesium Ferritin Total Bilirubin Direct Bilirubin AST ALT Alkaline Phosphatase Total Protein Albumin 12/15/21 12/15/21 12/15/21 18:50 21:23 23:55 WBC RBC Hgb Hct MCV MCH MCHC RDW Plt Count MPV Immature Gran % (Auto) Neut % (Auto) Lymph % (Auto) [place] % (Auto) Eos % (Auto) Baso % (Auto) Lymph # (Auto) [place] # (Auto) Eos # (Auto) Baso # (Auto) Abs Immat Gran (auto) Absolute Neuts (auto) Absolute Nucleated RBC Nucleated RBC % (auto) VBG pH VBG pCO2 VBG pO2 VBG HCO3 VBG O2 Saturation VBG Base Excess Sodium Potassium Chloride Carbon Dioxide Anion Gap BUN Creatinine Estim Creat Clear Calc Estimated GFR POC Glucose 140 H 180 H 149 H Random Glucose Calcium Phosphorus Magnesium Ferritin Total Bilirubin Direct Bilirubin AST ALT Alkaline Phosphatase Total Protein Albumin 12/16/21 12/16/21 12/16/21 01:56 04:04 05:35 WBC 4.8 RBC 3.02 L Hgb 8.6 L Hct 26.5 L MCV 87.7 MCH 28.5 MCHC 32.5 RDW 16.6 H Plt Count 234 MPV 10.6 Immature Gran % (Auto) 1.5 H Neut % (Auto) 80.2 H Lymph % (Auto) 10.3 L [place] % (Auto) 6.7 Eos % (Auto) 1.3 Baso % (Auto) 0.0 Lymph # (Auto) 0.5 L [place] # (Auto) 0.3 Eos # (Auto) 0.1 Baso # (Auto) 0.0 Abs Immat Gran (auto) 0.07 H Absolute Neuts (auto) 3.8 Absolute Nucleated RBC 0.000 Nucleated RBC % (auto) 0.0 VBG pH VBG pCO2 VBG pO2 VBG HCO3 VBG O2 Saturation VBG Base Excess Sodium Potassium Chloride Carbon Dioxide Anion Gap BUN Creatinine Estim Creat Clear Calc Estimated GFR POC Glucose 129 H 125 H Random Glucose Calcium Phosphorus Magnesium Ferritin Total Bilirubin Direct Bilirubin AST ALT Alkaline Phosphatase Total Protein Albumin 12/16/21 12/16/21 12/16/21 05:35 05:35 05:43 WBC RBC Hgb Hct MCV MCH MCHC RDW Plt Count MPV Immature Gran % (Auto) Neut % (Auto) Lymph % (Auto) [place] % (Auto) Eos % (Auto) Baso % (Auto) Lymph # (Auto) [place] # (Auto) Eos # (Auto) Baso # (Auto) Abs Immat Gran (auto) Absolute Neuts (auto) Absolute Nucleated RBC Nucleated RBC % (auto) VBG pH 7.49 H VBG pCO2 28 VBG pO2 43 VBG HCO3 22 VBG O2 Saturation 76.0 VBG Base Excess -0.2 Sodium 142 Potassium 3.4 Chloride 112 H Carbon Dioxide 22 Anion Gap 11 L BUN 24 H Creatinine 0.88 Estim Creat Clear Calc 93.5 Estimated GFR > 60 POC Glucose 143 H Random Glucose 150 H Calcium 8.3 L Phosphorus 3.1 Magnesium 2.0 Ferritin 1385 H Total Bilirubin 0.5 Direct Bilirubin 0.3 AST 23 D ALT 24 Alkaline Phosphatase 83 Total Protein 7.4 Albumin 2.8 L 12/16/21 12/16/21 07:33 09:54 WBC RBC Hgb Hct MCV MCH MCHC RDW Plt Count MPV Immature Gran % (Auto) Neut % (Auto) Lymph % (Auto) [place] % (Auto) Eos % (Auto) Baso % (Auto) Lymph # (Auto) [place] # (Auto) Eos # (Auto) Baso # (Auto) Abs Immat Gran (auto) Absolute Neuts (auto) Absolute Nucleated RBC Nucleated RBC % (auto) VBG pH VBG pCO2 VBG pO2 VBG HCO3 VBG O2 Saturation VBG Base Excess Sodium Potassium Chloride Carbon Dioxide Anion Gap BUN Creatinine Estim Creat Clear Calc Estimated GFR POC Glucose 148 H 124 H Random Glucose Calcium Phosphorus Magnesium Ferritin Total Bilirubin Direct Bilirubin AST ALT Alkaline Phosphatase Total Protein Albumin Microbiology Microbiology Results: Microbiology 12/14/21 10:33 Bronchial Washings Gram Stain - Final 12/14/21 10:33 Bronchial Washings Routine Culture - Final 12/10/21 11:53 Blood - Subclavian Blood Culture - Final No growth after 5 days. 12/10/21 11:53 Blood - Subclavian Blood Culture - Final No growth after 5 days. 12/12/21 15:40 Sputum - Suctioned Gram Stain - Final 12/12/21 15:40 Sputum - Suctioned Sputum Culture - Final 12/10/21 23:34 Cerebrospinal Fluid Gram Stain - Final 12/10/21 23:34 Cerebrospinal Fluid CSF Examination - Final 12/10/21 23:34 Cerebrospinal Fluid Fluid Description - Final 12/10/21 23:34 Cerebrospinal Fluid CSF Culture - Final No growth after 3 days. 12/10/21 23:34 Spine Direct Acid Fast Bacilli Smear - Preliminary 12/10/21 23:34 Spine Acid Fast Bacilli Culture & Smear - Preliminary 12/10/21 Unknown Urine Catheterized - Kern Catheter Urine Culture - Final 12/04/21 11:43 Blood - Venous Blood Culture - Final No growth after 5 days. 12/04/21 11:43 Blood - Venous Blood Culture - Final No growth after 5 days. 11/29/21 14:01 Blood - Venous Blood Culture - Final No growth after 5 days. 11/29/21 13:51 Blood - Venous Blood Culture - Final No growth after 5 days. 11/29/21 Unknown Urine clean catch - Urine [place] top Urine Culture - Final Progress Note: A&P Assessment and plan (1) Hypogammaglobulinemia: Status: Acute (2) Suppression of immune system subtherapeutic: Status: Acute (3) ARDS (adult respiratory distress syndrome): Status: Acute (4) Acute kidney injury: Status: Acute (5) Hypernatremia: Status: Acute (6) Encephalopathy, metabolic: Status: Acute (7) Pneumonia due to 2019 novel coronavirus: Status: Acute (8) Hypoxia: Status: Acute (9) Fever: Status: Acute (10) UTI (urinary tract infection): Status: Acute (11) Upper respiratory tract infection: Status: Acute (12) Hx of Escherichia coli septicemia: Status: Acute (13) Clinical decompensation: Status: Acute (14) Gait instability: Status: Acute (15) Bacteremia: Status: Acute (16) Sepsis: Status: Acute (17) UTI (urinary tract infection): Status: Acute (18) Upper respiratory tract infection: Status: Acute (19) Yeast infection involving the vagina and surrounding area: Status: Acute (20) Breakthrough bleeding on Depo-Provera: Status: Acute (21) On Depo-Provera for contraception: Status: Acute (22) DM2 (diabetes mellitus, type 2): Status: Acute (23) Obesity due to excess calories: Status: Acute (24) Diabetes mellitus with hyperglycemia: Status: Acute (25) Elevated vitamin B12 level: Status: Acute (26) Vitamin D deficiency: Status: Acute (27) Peripheral neuropathy: Status: Acute (28) Gastric paresis: Status: Acute (29) Acquired hypothyroidism: Status: Acute (30) Esophagitis with gastritis: Status: Acute (31) Bipolar disorder: Status: Acute (32) Hyperlipidemia: Status: Acute (33) Essential hypertension: Status: Acute Plan So this 31-year-old morbidly obese type 2 diabetic with bipolar disorder remains ventilated as we await a and evaluation of her cognitive function and right now just initiated doses of Lamictal and Seroquel and dexmedetomidine and were hoping we could start a pressure support trial She has been well diuresed in addition this morning Venofer CVP that was elevated at 10 so were catching up with her iatrogenic fluid overload Quality Stroke Does the patient have a stroke diagnosis?: No VTE Prior VTE?: No VTE Risk Level:: Medical - moderate - high VTE Device Contraindication: Treatment Not Indicated VTE Drug Contraindication: N/A - Med Ordered
[2021-12-16 12:09] LABS: Glucose, Whole Blood 192 mg/dL (60-115)
[2021-12-16 14:04] LABS: Glucose, Whole Blood 217 mg/dL (60-115)
[2021-12-16 16:12] LABS: Glucose, Whole Blood 196 mg/dL (60-115)
[2021-12-16 18:31] LABS: Glucose, Whole Blood 167 mg/dL (60-115)
[2021-12-16 19:50] LABS: Glucose, Whole Blood 144 mg/dL (60-115)
[2021-12-16 21:51] LABS: Myelin Basic Protein <2.0 mcg/L (2.0-4.0)
[2021-12-16 22:20] LABS: Glucose, Whole Blood 132 mg/dL (60-115)
[2021-12-16] MEDS: LORazepam 2 MG/ML VIAL 0.5 MG IVPUSH (22:51)
[2021-12-17] VITALS (19 sets, daily range): BP systolic 100–155; BP diastolic 55–101; PULSE 62–132; RESP 14–26; TEMP 36.8–37.6; O2SAT 91–99
[2021-12-17 00:18] LABS: Glucose, Whole Blood 138 mg/dL (60-115)
[2021-12-17] MEDS: Doxycycline Hyclate 100 MG in 0.9 % Sodium Chloride 250 ML 166.67 MG IV ×3 (00:50→23:44)
[2021-12-17] MEDS: Insulin Regular/NS 100 UNIT/100 ML PLAST..BAG IVCONT (00:53)
[2021-12-17 04:20] LABS: Glucose, Whole Blood 118 mg/dL (60-115)
[2021-12-17] MEDS: cloNIDine 0.1 MG PATCH.TDWK TRANSDERMA (04:41)
[2021-12-17 05:40] LABS: VBG Base Excess 1.2 mmol/L; VBG HCO3 24 mmol/L (22-26); VBG pCO2 33 mmHg; VBG pH 7.46 (7.32-7.43); VBG pO2 44 mmHg
[2021-12-17 05:42] LABS: Venous Blood Gas Refer to POC result
[2021-12-17 06:10] LABS: Hemoglobin 9.9 g/dl (12.0-16.0); Mean Corpuscular HGB Conc 31.9 g/dl (31.0-35.0); Mean Corpuscular Volume 87.6 fL (80.0-98.0); Mean Platelet Volume 10.4 fL (9.4-12.3); NRBC Pct Auto 1.7 /100WBC (0.0-0.2); Platelet Count 303 X10*3/uL (160-400); Red Blood Count 3.54 X10*6/uL (4.20-5.50); Red Cell Distribution Width 16.6 % (11.0-16.0); White Blood Count 7.1 X10*3/uL (4.8-10.8)
[2021-12-17 06:32] LABS: Glucose, Whole Blood 111 mg/dL (60-115)
[2021-12-17] MEDS: Heparin Sodium,Porcine 5,000 UNIT/ML VIAL 5000 UNIT SUBCUT ×3 (06:34→22:01)
[2021-12-17] MEDS: Pantoprazole Sodium 40 MG/10 ML VIAL IVPUSH (06:34)
[2021-12-17 06:47] LABS: Alanine Aminotransferase 33 U/L (0-31); Albumin Level 3.1 g/dL (3.5-5.0); Alkaline Phosphatase 83 U/L (39-117); Anion Gap 12 (12-20); Aspartate Amino Transferase 41 U/L (5-31); Bilirubin Direct 0.3 mg/dL (0.0-0.5); Bilirubin Total 0.6 mg/dL (0.0-1.0); Blood Urea Nitrogen 15 mg/dL (9-16); Calcium 8.7 mg/dL (8.4-10.2); Carbon Dioxide 24 mmol/L (22-29); Chloride 113 mmol/L (96-108); Creatinine Clr Calc Pharmacy 104.1; Estimated Glomerular Filt Rate > 60; Glucose Random 109 mg/dL (60-115); Magnesium 1.8 mg/dL (1.6-2.6); Phosphorus 2.8 mg/dL (2.7-4.5); Potassium 3.3 mmol/L (3.3-5.1); Sodium 146 mmol/L (135-145); Total Protein 7.7 g/dL (6.5-8.0)
[2021-12-17 06:53] LABS: Baso%MD 0.1 %; Eos%MD 3.3 %; IG%MD 6.1 %; Mono%MD 8.6 %; Neut%MD 66.9 %
[2021-12-17 07:11] LABS: Band Neutrophils Percent 3 % (3-5); Eosinophils Absolute Manual 0.4 X10*3/uL (0.0-0.4); Eosinophils Percent Manual 5 % (0-4); Lymphocytes Absolute Manual 1.2 X10*3/uL (1.2-4.9); Lymphocytes Percent Manual 17 % (20-40); Metamyelocytes Absolute 0.2 X10*3/uL; Metamyelocytes Percent 3 %; Monocytes Absolute Manual 0.2 X10*3/uL (0.1-1.2); Monocytes Percent Manual 3 % (2-11); Neutrophils Absolute Manual 5.1 X10*3/uL (2.0-8.3); Neutrophils Percent Manual 69 % (45-73); Nucleated Red Blood Cells 3 /100WBC (0-0)
[2021-12-17 07:12] LABS: Macrocytosis 1+ (5-14) /OIF; Platelet Estimate NORMAL (NORMAL); Platelet Morphology Comment NORMAL; Polychromasia 1+ (0-2) /OIF; RBC Morphology NOTED
[2021-12-17 07:49] LABS: Glucose, Whole Blood 107 mg/dL (60-115)
[2021-12-17 07:52] LABS: Ferritin 1970 ng/mL (10-122)
[2021-12-17] MEDS: 0.9 % Sodium Chloride Flush 3 ML SYRINGE IVFLUSH ×2 (08:01→22:02)
[2021-12-17] MEDS: Albuterol/Iprat 2.5/0.5MG 3 ML AMPUL.NEB INHALE ×2 (08:21→20:15)
[2021-12-17 09:23] LABS: Glucose, Whole Blood 135 mg/dL (60-115)
--- NOTE | 2021-12-17 10:41 | P.PNCC_ITS ---
Subjective Subjective Date of Service: 12/17/21 Interval History: 31-year-old type 2 diabetic and morbidly obese female with background of bipolar disease making interpretation a little difficult who basically had altered mental status a we a little over week ago on the floor with progressive lethargy and then unresponsiveness throughout the time she had been somewhat uncooperative and catatonic all completely different from her norm according To her outpatient neurologist background of an autoimmune form of encephalitis and the described MRI with a with the flare pictures indicating highlighting of both right and left thalamus that was told to me to be identical to previous nothing new the delirium was new and then eventually the unresponsiveness or hypoactivity was new it required intubation and she was 13 L positive so a lot of her abnormal CT scan probably out of the realm of COVID reflected her fluid overload and she was diuresed CVP came down to approximately between 2 and 4 with which she was promptly weaned on the FiO2 an and the and extubated more than 24 hours ago but still remains catatonic except she makes eye contact and will does not answer any questions at all but maintains her eye contact I think there is cognitive function but when queried about seeing or talking to her parents seem there was a little expression and a not of a yes so parents were invited to see her today and will have psych continue to follow her right now she can not swallow more or at least will not cooperate so we can not give her any oral medications for now but being that she achieved the degree of calm on dexmedetomidine we switched her to a Catapres patch and she is mildly hypernatremic and hyperchloremic and mildly hypokalemic so we will replace her fluids and electrolytes hopefully transfer her to a medical floor and and then they will work with her with psychotic psychiatry Critical Care Time (minutes): 45 Physical Exam Verdana 4l Vital Signs: Verdana 4d Verdana 4d Vital Signs: Verdana 4d Verdana 4Bd Last Vital Signs Verdana 4d Sanding Machine Operator Or Tender New 4d Sanding Machine Operator Or Tender New 4d Temp 99.0 F 12/17/21 08:00 Sanding Machine Operator Or Tender New 4d Pulse 94 12/17/21 10:00 Sanding Machine Operator Or Tender New 4d Resp 19 12/17/21 10:00 BP 125/75 12/17/21 10:00 Pulse Ox 93 12/17/21 10:00 Oxygen Flow Rate 4 11/29/21 11:52 BMI result Body Mass Index 43.0 She is awake and alert but we can not really can cleaner orientation with her she does not respond to any questions in that regard but neurologically nonfocal Bedside echo with normal cardiovascular function and has good bilateral carotid upstrokes and no bruits no neck vein distension Chest without adventitious sounds Abdomen obese but no organomegaly or tenderness Objective Data Labs CBC & Chem 7: 12/17/21 05:30 12/17/21 05:30 Labs: Laboratory Results - last 24 hr 12/10/21 12/16/21 12/16/21 23:34 11:55 13:59 WBC RBC Hgb Hct MCV MCH MCHC RDW Plt Count MPV Immature Gran % (Auto) Neut % (Auto) Lymph % (Auto) [place] % (Auto) Eos % (Auto) Baso % (Auto) Lymph # (Auto) [place] # (Auto) Eos # (Auto) Baso # (Auto) Abs Immat Gran (auto) Absolute Neuts (auto) Absolute Nucleated RBC Nucleated RBC % (auto) Neutrophils % (Manual) Band Neutrophils % Lymphocytes % (Manual) Monocytes % (Manual) Eosinophils % (Manual) Metamyelocytes % Abs Neuts (Manual) Lymphocytes # (Manual) Monocytes # (Manual) Eosinophils # (Manual) Metamyelocytes # Nucleated RBCs Platelet Estimate Plt Morphology Comment RBC Morphology Polychromasia Macrocytosis VBG pH VBG pCO2 VBG pO2 VBG HCO3 VBG O2 Saturation VBG Base Excess Sodium Potassium Chloride Carbon Dioxide Anion Gap BUN Creatinine Estim Creat Clear Calc Estimated GFR POC Glucose 192 H 217 H Random Glucose Calcium Phosphorus Magnesium Ferritin Total Bilirubin Direct Bilirubin AST ALT Alkaline Phosphatase Total Protein Albumin CSF Myelin Basic Protein <2.0 12/16/21 12/16/21 12/16/21 16:03 18:26 19:45 WBC RBC Hgb Hct MCV MCH MCHC RDW Plt Count MPV Immature Gran % (Auto) Neut % (Auto) Lymph % (Auto) [place] % (Auto) Eos % (Auto) Baso % (Auto) Lymph # (Auto) [place] # (Auto) Eos # (Auto) Baso # (Auto) Abs Immat Gran (auto) Absolute Neuts (auto) Absolute Nucleated RBC Nucleated RBC % (auto) Neutrophils % (Manual) Band Neutrophils % Lymphocytes % (Manual) Monocytes % (Manual) Eosinophils % (Manual) Metamyelocytes % Abs Neuts (Manual) Lymphocytes # (Manual) Monocytes # (Manual) Eosinophils # (Manual) Metamyelocytes # Nucleated RBCs Platelet Estimate Plt Morphology Comment RBC Morphology Polychromasia Macrocytosis VBG pH VBG pCO2 VBG pO2 VBG HCO3 VBG O2 Saturation VBG Base Excess Sodium Potassium Chloride Carbon Dioxide Anion Gap BUN Creatinine Estim Creat Clear Calc Estimated GFR POC Glucose 196 H 167 H 144 H Random Glucose Calcium Phosphorus Magnesium Ferritin Total Bilirubin Direct Bilirubin AST ALT Alkaline Phosphatase Total Protein Albumin CSF Myelin Basic Protein 12/16/21 12/17/21 12/17/21 22:16 00:10 04:16 WBC RBC Hgb Hct MCV MCH MCHC RDW Plt Count MPV Immature Gran % (Auto) Neut % (Auto) Lymph % (Auto) [place] % (Auto) Eos % (Auto) Baso % (Auto) Lymph # (Auto) [place] # (Auto) Eos # (Auto) Baso # (Auto) Abs Immat Gran (auto) Absolute Neuts (auto) Absolute Nucleated RBC Nucleated RBC % (auto) Neutrophils % (Manual) Band Neutrophils % Lymphocytes % (Manual) Monocytes % (Manual) Eosinophils % (Manual) Metamyelocytes % Abs Neuts (Manual) Lymphocytes # (Manual) Monocytes # (Manual) Eosinophils # (Manual) Metamyelocytes # Nucleated RBCs Platelet Estimate Plt Morphology Comment RBC Morphology Polychromasia Macrocytosis VBG pH VBG pCO2 VBG pO2 VBG HCO3 VBG O2 Saturation VBG Base Excess Sodium Potassium Chloride Carbon Dioxide Anion Gap BUN Creatinine Estim Creat Clear Calc Estimated GFR POC Glucose 132 H 138 H 118 H Random Glucose Calcium Phosphorus Magnesium Ferritin Total Bilirubin Direct Bilirubin AST ALT Alkaline Phosphatase Total Protein Albumin CSF Myelin Basic Protein 12/17/21 12/17/21 12/17/21 05:30 05:30 05:33 WBC 7.1 RBC 3.54 L Hgb 9.9 L Hct 31.0 L MCV 87.6 MCH 28.0 MCHC 31.9 RDW 16.6 H Plt Count 303 D MPV 10.4 Immature Gran % (Auto) Cancelled Neut % (Auto) Cancelled Lymph % (Auto) Cancelled [place] % (Auto) Cancelled Eos % (Auto) Cancelled Baso % (Auto) Cancelled Lymph # (Auto) Cancelled [place] # (Auto) Cancelled Eos # (Auto) Cancelled Baso # (Auto) Cancelled Abs Immat Gran (auto) Cancelled Absolute Neuts (auto) Cancelled Absolute Nucleated RBC 0.120 H Nucleated RBC % (auto) 1.7 H Neutrophils % (Manual) 69 Band Neutrophils % 3 Lymphocytes % (Manual) 17 L Monocytes % (Manual) 3 Eosinophils % (Manual) 5 H Metamyelocytes % 3 Abs Neuts (Manual) 5.1 Lymphocytes # (Manual) 1.2 Monocytes # (Manual) 0.2 Eosinophils # (Manual) 0.4 Metamyelocytes # 0.2 Nucleated RBCs 3 H Platelet Estimate NORMAL Plt Morphology Comment NORMAL RBC Morphology NOTED Polychromasia 1+ (0-2) Macrocytosis 1+ (5-14) VBG pH 7.46 H VBG pCO2 33 VBG pO2 44 VBG HCO3 24 VBG O2 Saturation 76.0 VBG Base Excess 1.2 Sodium 146 H Potassium 3.3 Chloride 113 H Carbon Dioxide 24 Anion Gap 12 BUN 15 Creatinine 0.79 Estim Creat Clear Calc 104.1 Estimated GFR > 60 POC Glucose Random Glucose 109 Calcium 8.7 Phosphorus 2.8 Magnesium 1.8 Ferritin 1970 H Total Bilirubin 0.6 Direct Bilirubin 0.3 AST 41 H D ALT 33 H Alkaline Phosphatase 83 Total Protein 7.7 Albumin 3.1 L CSF Myelin Basic Protein 12/17/21 12/17/21 12/17/21 06:27 07:46 09:15 WBC RBC Hgb Hct MCV MCH MCHC RDW Plt Count MPV Immature Gran % (Auto) Neut % (Auto) Lymph % (Auto) [place] % (Auto) Eos % (Auto) Baso % (Auto) Lymph # (Auto) [place] # (Auto) Eos # (Auto) Baso # (Auto) Abs Immat Gran (auto) Absolute Neuts (auto) Absolute Nucleated RBC Nucleated RBC % (auto) Neutrophils % (Manual) Band Neutrophils % Lymphocytes % (Manual) Monocytes % (Manual) Eosinophils % (Manual) Metamyelocytes % Abs Neuts (Manual) Lymphocytes # (Manual) Monocytes # (Manual) Eosinophils # (Manual) Metamyelocytes # Nucleated RBCs Platelet Estimate Plt Morphology Comment RBC Morphology Polychromasia Macrocytosis VBG pH VBG pCO2 VBG pO2 VBG HCO3 VBG O2 Saturation VBG Base Excess Sodium Potassium Chloride Carbon Dioxide Anion Gap BUN Creatinine Estim Creat Clear Calc Estimated GFR POC Glucose 111 107 135 H Random Glucose Calcium Phosphorus Magnesium Ferritin Total Bilirubin Direct Bilirubin AST ALT Alkaline Phosphatase Total Protein Albumin CSF Myelin Basic Protein Microbiology Microbiology Results: Microbiology 12/16/21 13:04 Sputum - Suctioned Gram Stain - Final 12/16/21 13:04 Sputum - Suctioned Sputum Culture - Preliminary Culture in progress. 12/14/21 10:33 Bronchial Washings Gram Stain - Final 12/14/21 10:33 Bronchial Washings Routine Culture - Final 12/10/21 11:53 Blood - Subclavian Blood Culture - Final No growth after 5 days. 12/10/21 11:53 Blood - Subclavian Blood Culture - Final No growth after 5 days. 12/12/21 15:40 Sputum - Suctioned Gram Stain - Final 12/12/21 15:40 Sputum - Suctioned Sputum Culture - Final 12/10/21 23:34 Cerebrospinal Fluid Gram Stain - Final 12/10/21 23:34 Cerebrospinal Fluid CSF Examination - Final 12/10/21 23:34 Cerebrospinal Fluid Fluid Description - Final 12/10/21 23:34 Cerebrospinal Fluid CSF Culture - Final No growth after 3 days. 12/10/21 23:34 Spine Direct Acid Fast Bacilli Smear - Preliminary 12/10/21 23:34 Spine Acid Fast Bacilli Culture & Smear - Preliminary 12/10/21 Unknown Urine Catheterized - Kern Catheter Urine Culture - Final 12/04/21 11:43 Blood - Venous Blood Culture - Final No growth after 5 days. 12/04/21 11:43 Blood - Venous Blood Culture - Final No growth after 5 days. 11/29/21 14:01 Blood - Venous Blood Culture - Final No growth after 5 days. 11/29/21 13:51 Blood - Venous Blood Culture - Final No growth after 5 days. 11/29/21 Unknown Urine clean catch - Urine [place] top Urine Culture - Final Progress Note: A&P Assessment and plan (1) Hypogammaglobulinemia: Status: Acute (2) Suppression of immune system subtherapeutic: Status: Acute (3) ARDS (adult respiratory distress syndrome): Status: Acute (4) Acute kidney injury: Status: Acute (5) Hypernatremia: Status: Acute (6) Encephalopathy, metabolic: Status: Acute (7) Pneumonia due to 2019 novel coronavirus: Status: Acute (8) Hypoxia: Status: Acute (9) Fever: Status: Acute (10) UTI (urinary tract infection): Status: Acute (11) Upper respiratory tract infection: Status: Acute (12) Hx of Escherichia coli septicemia: Status: Acute (13) Clinical decompensation: Status: Acute (14) Gait instability: Status: Acute (15) Bacteremia: Status: Acute (16) Sepsis: Status: Acute (17) UTI (urinary tract infection): Status: Acute (18) Upper respiratory tract infection: Status: Acute (19) Yeast infection involving the vagina and surrounding area: Status: Acute (20) Breakthrough bleeding on Depo-Provera: Status: Acute (21) On Depo-Provera for contraception: Status: Acute (22) DM2 (diabetes mellitus, type 2): Status: Acute (23) Obesity due to excess calories: Status: Acute (24) Diabetes mellitus with hyperglycemia: Status: Acute (25) Elevated vitamin B12 level: Status: Acute (26) Vitamin D deficiency: Status: Acute (27) Peripheral neuropathy: Status: Acute (28) Gastric paresis: Status: Acute (29) Esophagitis with gastritis: Status: Acute (30) Bipolar disorder: Status: Acute (31) Acquired hypothyroidism: Status: Acute (32) Hyperlipidemia: Status: Acute (33) Essential hypertension: Status: Acute Plan Plan is to work with psychiatry and her parents to for support and and hopefully begin her taoism most importantly her ability to swallow and eat and and take medication as needed and begin to get her mobilized with physical therapy and occupational therapy Quality Stroke Does the patient have a stroke diagnosis?: No VTE Prior VTE?: No VTE Risk Level:: Medical - moderate - high VTE Device Contraindication: Treatment Not Indicated VTE Drug Contraindication: N/A - Med Ordered
[2021-12-17] MEDS: KCl 20 mEq in 5 % Dextrose 20 MEQ/1,000 ML IV.SOLN 80 MEQ IVCONT (11:06)
[2021-12-17 11:17] LABS: Glucose, Whole Blood 155 mg/dL (60-115)
[2021-12-17] MEDS: Insulin Lispro 100 UNIT/ML 3 ML VIAL SUBCUT ×2 (11:20→22:01)
--- NOTE | 2021-12-17 13:03 | P.PNCC_ITS ---
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 peripheral polyneuropathy for which she gets monthly IV IG and and and she just received this week her dose and in addition once yearly rituximab and presented with progressive altered mental status and a a agitated dual delirium and then culminating in complete unresponsiveness requiring intubation she had an initially positive CT scan of her chest demonstrating an infiltrate although not classic because of COVID positivity it could have been pneumonitis but then super superimposed on that iatrogenic fluid overload she has since been diuresed down to a CVP of about 2 she is off all pressor support she is not even taking any antipsychotic medications as she had before she is now cooperative she is no longer agitated no signs of hyperactivity she responded very well to dexmedetomidine so she is on a Catapres patch instead maintaining a calm she has very uncoordinated swallowing mechanism an aspirate so she has to await a swallow evaluation and also needs to be seen and followed by Psychiatry for the balance of her visit here she remains catatonic and that she does not directly answer your question she will nod yes or no it demonstrates absolutely no emotion at all and unless you you ask if she would like to see either 1 of her parents and that she is you know seems to spark her so she sore both of them today that made her very happy and she is empirically on doxycycline because I was covering her for atypical organisms was afraid of an opportunistic infection thus the CT scan was hard to interpret and she is in immunosuppressed individual and her CSF had normal protein no cells normal glucose clearly there is nothing there of an infectious nature and her MRI is identical to her previous at [facility] and we were told also not to give her any steroids for her underlying entity just the IV IG and for all we know the steroids could have contributed to some of her delirium Critical Care Time (minutes): 45 Physical Exam Verdana 4l Vital Signs: Verdana 4d Verdana 4d Vital Signs: Verdana 4d Verdana 4Bd Last Vital Signs Verdana 4d [employer]ision [employer] New 4d [employer] New 4d Temp 98.7 F 12/17/21 12:00 [employer] New 4d Pulse 118 H 12/17/21 12:00 [employer]ision [employer] New 4d Resp 26 H 12/17/21 12:00 BP 115/67 12/17/21 12:00 Pulse Ox 91 L 12/17/21 12:00 Oxygen Flow Rate 4 11/29/21 11:52 BMI result Body Mass Index 43.0 She is awake and alert and is able to lock eyes demonstrating some degree of cognitive capability nonfocal neurologically Cardiac by bedside echo Is basically class 1 LV function lungs are clear without adventitious sounds Abdomen is soft no organomegaly Skin intact no acrocyanosis Objective Data Labs CBC & Chem 7: 12/17/21 05:30 12/17/21 05:30 Labs: Laboratory Results - last 24 hr 12/10/21 12/16/21 12/16/21 23:34 13:59 16:03 WBC RBC Hgb Hct MCV MCH MCHC RDW Plt Count MPV Immature Gran % (Auto) Neut % (Auto) Lymph % (Auto) [place] % (Auto) Eos % (Auto) Baso % (Auto) Lymph # (Auto) [place] # (Auto) Eos # (Auto) Baso # (Auto) Abs Immat Gran (auto) Absolute Neuts (auto) Absolute Nucleated RBC Nucleated RBC % (auto) Neutrophils % (Manual) Band Neutrophils % Lymphocytes % (Manual) Monocytes % (Manual) Eosinophils % (Manual) Metamyelocytes % Abs Neuts (Manual) Lymphocytes # (Manual) Monocytes # (Manual) Eosinophils # (Manual) Metamyelocytes # Nucleated RBCs Platelet Estimate Plt Morphology Comment RBC Morphology Polychromasia Macrocytosis VBG pH VBG pCO2 VBG pO2 VBG HCO3 VBG O2 Saturation VBG Base Excess Sodium Potassium Chloride Carbon Dioxide Anion Gap BUN Creatinine Estim Creat Clear Calc Estimated GFR POC Glucose 217 H 196 H Random Glucose Calcium Phosphorus Magnesium Ferritin Total Bilirubin Direct Bilirubin AST ALT Alkaline Phosphatase Total Protein Albumin CSF Myelin Basic Protein <2.0 12/16/21 12/16/21 12/16/21 18:26 19:45 22:16 WBC RBC Hgb Hct MCV MCH MCHC RDW Plt Count MPV Immature Gran % (Auto) Neut % (Auto) Lymph % (Auto) [place] % (Auto) Eos % (Auto) Baso % (Auto) Lymph # (Auto) [place] # (Auto) Eos # (Auto) Baso # (Auto) Abs Immat Gran (auto) Absolute Neuts (auto) Absolute Nucleated RBC Nucleated RBC % (auto) Neutrophils % (Manual) Band Neutrophils % Lymphocytes % (Manual) Monocytes % (Manual) Eosinophils % (Manual) Metamyelocytes % Abs Neuts (Manual) Lymphocytes # (Manual) Monocytes # (Manual) Eosinophils # (Manual) Metamyelocytes # Nucleated RBCs Platelet Estimate Plt Morphology Comment RBC Morphology Polychromasia Macrocytosis VBG pH VBG pCO2 VBG pO2 VBG HCO3 VBG O2 Saturation VBG Base Excess Sodium Potassium Chloride Carbon Dioxide Anion Gap BUN Creatinine Estim Creat Clear Calc Estimated GFR POC Glucose 167 H 144 H 132 H Random Glucose Calcium Phosphorus Magnesium Ferritin Total Bilirubin Direct Bilirubin AST ALT Alkaline Phosphatase Total Protein Albumin CSF Myelin Basic Protein 12/17/21 12/17/21 12/17/21 00:10 04:16 05:30 WBC 7.1 RBC 3.54 L Hgb 9.9 L Hct 31.0 L MCV 87.6 MCH 28.0 MCHC 31.9 RDW 16.6 H Plt Count 303 D MPV 10.4 Immature Gran % (Auto) Cancelled Neut % (Auto) Cancelled Lymph % (Auto) Cancelled [place] % (Auto) Cancelled Eos % (Auto) Cancelled Baso % (Auto) Cancelled Lymph # (Auto) Cancelled [place] # (Auto) Cancelled Eos # (Auto) Cancelled Baso # (Auto) Cancelled Abs Immat Gran (auto) Cancelled Absolute Neuts (auto) Cancelled Absolute Nucleated RBC 0.120 H Nucleated RBC % (auto) 1.7 H Neutrophils % (Manual) 69 Band Neutrophils % 3 Lymphocytes % (Manual) 17 L Monocytes % (Manual) 3 Eosinophils % (Manual) 5 H Metamyelocytes % 3 Abs Neuts (Manual) 5.1 Lymphocytes # (Manual) 1.2 Monocytes # (Manual) 0.2 Eosinophils # (Manual) 0.4 Metamyelocytes # 0.2 Nucleated RBCs 3 H Platelet Estimate NORMAL Plt Morphology Comment NORMAL RBC Morphology NOTED Polychromasia 1+ (0-2) Macrocytosis 1+ (5-14) VBG pH VBG pCO2 VBG pO2 VBG HCO3 VBG O2 Saturation VBG Base Excess Sodium Potassium Chloride Carbon Dioxide Anion Gap BUN Creatinine Estim Creat Clear Calc Estimated GFR POC Glucose 138 H 118 H Random Glucose Calcium Phosphorus Magnesium Ferritin Total Bilirubin Direct Bilirubin AST ALT Alkaline Phosphatase Total Protein Albumin CSF Myelin Basic Protein 12/17/21 12/17/21 12/17/21 05:30 05:33 06:27 WBC RBC Hgb Hct MCV MCH MCHC RDW Plt Count MPV Immature Gran % (Auto) Neut % (Auto) Lymph % (Auto) [place] % (Auto) Eos % (Auto) Baso % (Auto) Lymph # (Auto) [place] # (Auto) Eos # (Auto) Baso # (Auto) Abs Immat Gran (auto) Absolute Neuts (auto) Absolute Nucleated RBC Nucleated RBC % (auto) Neutrophils % (Manual) Band Neutrophils % Lymphocytes % (Manual) Monocytes % (Manual) Eosinophils % (Manual) Metamyelocytes % Abs Neuts (Manual) Lymphocytes # (Manual) Monocytes # (Manual) Eosinophils # (Manual) Metamyelocytes # Nucleated RBCs Platelet Estimate Plt Morphology Comment RBC Morphology Polychromasia Macrocytosis VBG pH 7.46 H VBG pCO2 33 VBG pO2 44 VBG HCO3 24 VBG O2 Saturation 76.0 VBG Base Excess 1.2 Sodium 146 H Potassium 3.3 Chloride 113 H Carbon Dioxide 24 Anion Gap 12 BUN 15 Creatinine 0.79 Estim Creat Clear Calc 104.1 Estimated GFR > 60 POC Glucose 111 Random Glucose 109 Calcium 8.7 Phosphorus 2.8 Magnesium 1.8 Ferritin 1970 H Total Bilirubin 0.6 Direct Bilirubin 0.3 AST 41 H D ALT 33 H Alkaline Phosphatase 83 Total Protein 7.7 Albumin 3.1 L CSF Myelin Basic Protein 12/17/21 12/17/21 12/17/21 07:46 09:15 11:09 WBC RBC Hgb Hct MCV MCH MCHC RDW Plt Count MPV Immature Gran % (Auto) Neut % (Auto) Lymph % (Auto) [place] % (Auto) Eos % (Auto) Baso % (Auto) Lymph # (Auto) [place] # (Auto) Eos # (Auto) Baso # (Auto) Abs Immat Gran (auto) Absolute Neuts (auto) Absolute Nucleated RBC Nucleated RBC % (auto) Neutrophils % (Manual) Band Neutrophils % Lymphocytes % (Manual) Monocytes % (Manual) Eosinophils % (Manual) Metamyelocytes % Abs Neuts (Manual) Lymphocytes # (Manual) Monocytes # (Manual) Eosinophils # (Manual) Metamyelocytes # Nucleated RBCs Platelet Estimate Plt Morphology Comment RBC Morphology Polychromasia Macrocytosis VBG pH VBG pCO2 VBG pO2 VBG HCO3 VBG O2 Saturation VBG Base Excess Sodium Potassium Chloride Carbon Dioxide Anion Gap BUN Creatinine Estim Creat Clear Calc Estimated GFR POC Glucose 107 135 H 155 H Random Glucose Calcium Phosphorus Magnesium Ferritin Total Bilirubin Direct Bilirubin AST ALT Alkaline Phosphatase Total Protein Albumin CSF Myelin Basic Protein Microbiology Microbiology Results: Microbiology 12/16/21 13:04 Sputum - Suctioned Gram Stain - Final 12/16/21 13:04 Sputum - Suctioned Sputum Culture - Preliminary Culture in progress. 12/14/21 10:33 Bronchial Washings Gram Stain - Final 12/14/21 10:33 Bronchial Washings Routine Culture - Final 12/10/21 11:53 Blood - Subclavian Blood Culture - Final No growth after 5 days. 12/10/21 11:53 Blood - Subclavian Blood Culture - Final No growth after 5 days. 12/12/21 15:40 Sputum - Suctioned Gram Stain - Final 12/12/21 15:40 Sputum - Suctioned Sputum Culture - Final 12/10/21 23:34 Cerebrospinal Fluid Gram Stain - Final 12/10/21 23:34 Cerebrospinal Fluid CSF Examination - Final 12/10/21 23:34 Cerebrospinal Fluid Fluid Description - Final 12/10/21 23:34 Cerebrospinal Fluid CSF Culture - Final No growth after 3 days. 12/10/21 23:34 Spine Direct Acid Fast Bacilli Smear - Preliminary 12/10/21 23:34 Spine Acid Fast Bacilli Culture & Smear - Preliminary 12/10/21 Unknown Urine Catheterized - Kern Catheter Urine Culture - Final 12/04/21 11:43 Blood - Venous Blood Culture - Final No growth after 5 days. 12/04/21 11:43 Blood - Venous Blood Culture - Final No growth after 5 days. 11/29/21 14:01 Blood - Venous Blood Culture - Final No growth after 5 days. 11/29/21 13:51 Blood - Venous Blood Culture - Final No growth after 5 days. 11/29/21 Unknown Urine clean catch - Urine [place] top Urine Culture - Final Progress Note: A&P Assessment and plan (1) Hypogammaglobulinemia: Status: Acute (2) Suppression of immune system subtherapeutic: Status: Acute (3) ARDS (adult respiratory distress syndrome): Status: Acute (4) Acute kidney injury: Status: Acute (5) Hypernatremia: Status: Acute (6) Encephalopathy, metabolic: Status: Acute (7) Pneumonia due to 2019 novel coronavirus: Status: Acute (8) Hypoxia: Status: Acute (9) Fever: Status: Acute (10) UTI (urinary tract infection): Status: Acute (11) Upper respiratory tract infection: Status: Acute (12) Hx of Escherichia coli septicemia: Status: Acute (13) Clinical decompensation: Status: Acute (14) Gait instability: Status: Acute (15) Bacteremia: Status: Acute (16) Sepsis: Status: Acute (17) UTI (urinary tract infection): Status: Acute (18) Upper respiratory tract infection: Status: Acute (19) Yeast infection involving the vagina and surrounding area: Status: Acute (20) Breakthrough bleeding on Depo-Provera: Status: Acute (21) On Depo-Provera for contraception: Status: Acute (22) DM2 (diabetes mellitus, type 2): Status: Acute (23) Obesity due to excess calories: Status: Acute (24) Diabetes mellitus with hyperglycemia: Status: Acute (25) Elevated vitamin B12 level: Status: Acute (26) Vitamin D deficiency: Status: Acute (27) Peripheral neuropathy: Status: Acute (28) Gastric paresis: Status: Acute (29) Esophagitis with gastritis: Status: Acute (30) Bipolar disorder: Status: Acute (31) Acquired hypothyroidism: Status: Acute (32) Hyperlipidemia: Status: Acute (33) Essential hypertension: Status: Acute Plan Plan is to obtain Psychiatry as well as swallow evaluations and then physical and occupational therapy for her until then she is on IV fluid replacement replacing or compensating for the hypernatremia and hypokalemia both of which have very mild Quality Stroke Does the patient have a stroke diagnosis?: No VTE Prior VTE?: No VTE Risk Level:: Medical - moderate - high VTE Device Contraindication: Treatment Not Indicated VTE Drug Contraindication: N/A - Med Ordered
[2021-12-17 16:36] LABS: Glucose, Whole Blood 149 mg/dL (60-115)
[2021-12-17 18:22] LABS: Legionella Pneumophila Ab IgM <1:256 TITER
[2021-12-17 21:47] LABS: Glucose, Whole Blood 148 mg/dL (60-115)
[2021-12-17 21:56] LABS: Glucose, Whole Blood 185 mg/dL (60-115)
[2021-12-17 22:07] LABS: Beta-Hydroxybutyrate 5.61 mmol/L
[2021-12-18] VITALS (9 sets, daily range): BP systolic 128–150; BP diastolic 67–89; PULSE 88–115; RESP 18–20; TEMP 36.3–37.1; O2SAT 92–99
[2021-12-18 02:52] LABS: Pneumocystis jir Ql PCR NOT DETECTED; Pneumocystis jir source SPUTUM
[2021-12-18] MEDS: KCl 20 mEq in 5 % Dextrose 20 MEQ/1,000 ML IV.SOLN 80 MEQ IVCONT ×3 (03:51→21:01)
[2021-12-18] MEDS: Pantoprazole Sodium 40 MG/10 ML VIAL IVPUSH (06:03)
[2021-12-18] MEDS: Heparin Sodium,Porcine 5,000 UNIT/ML VIAL 5000 UNIT SUBCUT (06:03)
[2021-12-18 06:09] LABS: Hematocrit 32.1 % (37.0-47.0); Hemoglobin 10.5 g/dl (12.0-16.0); Mean Corpuscular HGB Conc 32.7 g/dl (31.0-35.0); Mean Corpuscular Hemoglobin 28.5 pg (27.0-33.0); NRBC Pct Auto 0.6 /100WBC (0.0-0.2); Platelet Count 246 X10*3/uL (160-400); Red Blood Count 3.69 X10*6/uL (4.20-5.50); Red Cell Distribution Width 16.4 % (11.0-16.0); White Blood Count 4.9 X10*3/uL (4.8-10.8)
[2021-12-18 06:11] LABS: VBG Base Excess 1.3 mmol/L; VBG HCO3 24 mmol/L (22-26); VBG pCO2 35 mmHg; VBG pH 7.45 (7.32-7.43); VBG pO2 39 mmHg
[2021-12-18 06:11] LABS: Venous Blood Gas Refer to POC result
[2021-12-18 06:29] LABS: Band Neutrophils Percent 2 % (3-5); Basophils Percent Manual 1 % (0-2); Lymphocytes Absolute Manual 0.6 X10*3/uL (1.2-4.9); Lymphocytes Percent Manual 12 % (20-40); Metamyelocytes Absolute 0.1 X10*3/uL; Metamyelocytes Percent 3 %; Monocytes Absolute Manual 0.2 X10*3/uL (0.1-1.2); Monocytes Percent Manual 4 % (2-11); Neutrophils Absolute Manual 3.9 X10*3/uL (2.0-8.3); Neutrophils Percent Manual 78 % (45-73); RBC Morphology NOTED
[2021-12-18 06:30] LABS: Large Platelet PRESENT; Platelet Estimate NORMAL (NORMAL); Platelet Morphology Comment NOTED; Polychromasia 1+ (0-2) /OIF
[2021-12-18 06:31] LABS: Alanine Aminotransferase 38 U/L (0-31); Albumin Level 3.1 g/dL (3.5-5.0); Alkaline Phosphatase 74 U/L (39-117); Anion Gap 12 (12-20); Aspartate Amino Transferase 43 U/L (5-31); Bilirubin Direct 0.3 mg/dL (0.0-0.5); Bilirubin Total 0.6 mg/dL (0.0-1.0); Blood Urea Nitrogen 11 mg/dL (9-16); Calcium 8.7 mg/dL (8.4-10.2); Carbon Dioxide 22 mmol/L (22-29); Chloride 107 mmol/L (96-108); Creatinine Clr Calc Pharmacy 111.2; Estimated Glomerular Filt Rate > 60; Glucose Random 181 mg/dL (60-115); Magnesium 1.8 mg/dL (1.6-2.6); Phosphorus 3.1 mg/dL (2.7-4.5); Potassium 3.4 mmol/L (3.3-5.1); Sodium 138 mmol/L (135-145); Total Protein 7.6 g/dL (6.5-8.0)
[2021-12-18 07:45] LABS: Glucose, Whole Blood 166 mg/dL (60-115)
[2021-12-18 07:52] LABS: Ferritin 1862 ng/mL (10-122)
[2021-12-18] MEDS: Levothyroxine Sodium 100 MCG/5 ML VIAL 37.5 MCG IVPUSH (07:58)
[2021-12-18] MEDS: Insulin Lispro 100 UNIT/ML 3 ML VIAL SUBCUT (07:58)
[2021-12-18] MEDS: 0.9 % Sodium Chloride Flush 3 ML SYRINGE IVFLUSH ×2 (07:59→21:02)
[2021-12-18] MEDS: Enoxaparin Sodium 40 MG/0.4 ML SYRINGE SUBCUT (07:59)
[2021-12-18] MEDS: Albuterol/Iprat 2.5/0.5MG 3 ML AMPUL.NEB INHALE ×4 (08:09→19:36)
--- NOTE | 2021-12-18 09:31 | P.PNIM_ITS ---
Subjective Subjective Date of Service: 12/18/21 Interval History: cc: sob interval history: not verbalizing Review of Systems Review of Systems: Yes Unobtainable due to mental condition Physical Exam Verdana 4l Vital Signs: Verdana 4d Verdana 4d Vital Signs: Verdana 4d Verdana 4Bd Last Vital Signs Verdana 4d Html Developer New 4d Html Developer New 4d Temp 97.8 F 12/18/21 07:28 Html Developer New 4d Pulse 100 12/18/21 08:09 Html Developer New 4d Resp 20 12/18/21 08:09 BP 145/67 H 12/18/21 07:28 Pulse Ox 94 12/18/21 07:28 Oxygen Flow Rate 4 11/29/21 11:52 BMI result Body Mass Index 43.0 General: Alert, not talking Resp: diminshed bilateral, no accessory muscles used CVS: S1,S2,RRR GI: soft, non tender, non distended Neuro: alert, not talking, follows simple commands, choreaform movements Psych: flat affect, impaired insight Objective Data Active Medications Albuterol/Ipratropium (Albuterol/Iprat 2.5/0.5mg 3 Ml Ampul.Neb) 3 ml INHALE RQ4H WHILE AWAKE [facility] Last Admin: 12/18/21 08:09 Dose: 3 ml Documented by: KEYONNA Enoxaparin Sodium (Enoxaparin Sodium 40 Mg/0.4 Ml Syringe) 40 mg SUBCUT Q24H [facility] Last Admin: 12/18/21 07:59 Dose: 40 mg Documented by: NINO Potassium Chloride/Dextrose () 20 meq in 1,000 mls @ 80 mls/hr IVCONT .[id number] [facility] Last Admin: 12/18/21 03:51 Dose: 80 mls/hr Documented by: STACEY Insulin Human Lispro (Insulin Lispro 100 Unit/Ml 3 Ml Vial) 0 unit SUBCUT QIDACHS [facility]; Protocol Last Admin: 12/18/21 07:58 Dose: 2 unit Documented by: NINO Levothyroxine Sodium (Levothyroxine Sodium 100 Mcg/5 Ml Vial) 37.5 mcg IVPUSH DAILY [facility] Last Admin: 12/18/21 07:58 Dose: 37.5 mcg Documented by: NINO Lorazepam (Lorazepam 2 Mg/Ml Vial) 0.5 mg IVPUSH Q4H PRN PRN Reason: Anxiety Last Admin: 12/16/21 22:51 Dose: 0.5 mg Documented by: DAVID Pharmacy Consult (Consult Rx Perform Med Rec) 1 each MISCELLANE ONCE PRN PRN Reason: Consult order Sodium Chloride (0.9 % Sodium Chloride Flush 3 Ml Syringe) 3 ml IVFLUSH QSHIFT [facility] Last Admin: 12/18/21 07:59 Dose: 3 ml Documented by: NINO Labs CBC & Chem 7: 12/18/21 06:02 12/18/21 06:02 Labs: Laboratory Results - last 24 hr 12/12/21 12/13/21 12/13/21 15:40 08:02 13:21 MCV MCH MCHC RDW Plt Count MPV Immature Gran % (Auto) Neut % (Auto) Lymph % (Auto) [place] % (Auto) Eos % (Auto) Baso % (Auto) Lymph # (Auto) [place] # (Auto) Eos # (Auto) Baso # (Auto) Abs Immat Gran (auto) Absolute Neuts (auto) Absolute Nucleated RBC Nucleated RBC % (auto) Neutrophils % (Manual) Band Neutrophils % Lymphocytes % (Manual) Monocytes % (Manual) Basophils % (Manual) Metamyelocytes % Abs Neuts (Manual) Lymphocytes # (Manual) Monocytes # (Manual) Metamyelocytes # Platelet Estimate Large Platelets Plt Morphology Comment RBC Morphology Polychromasia VBG pH VBG pCO2 VBG pO2 VBG HCO3 VBG O2 Saturation VBG Base Excess Anion Gap Estim Creat Clear Calc Estimated GFR POC Glucose Random Glucose Calcium Phosphorus Magnesium Ferritin Total Bilirubin Direct Bilirubin AST ALT Alkaline Phosphatase Total Protein Albumin Beta-Hydroxybutyrate/Acetoacetate 5.61 H L.pneumophila IgM Ab <1:256 Pneumocystis Source SPUTUM Pneumocyst jiroveci PCR NOT DETECTED 12/17/21 12/17/21 12/17/21 11:09 16:31 20:09 MCV MCH MCHC RDW Plt Count MPV Immature Gran % (Auto) Neut % (Auto) Lymph % (Auto) [place] % (Auto) Eos % (Auto) Baso % (Auto) Lymph # (Auto) [place] # (Auto) Eos # (Auto) Baso # (Auto) Abs Immat Gran (auto) Absolute Neuts (auto) Absolute Nucleated RBC Nucleated RBC % (auto) Neutrophils % (Manual) Band Neutrophils % Lymphocytes % (Manual) Monocytes % (Manual) Basophils % (Manual) Metamyelocytes % Abs Neuts (Manual) Lymphocytes # (Manual) Monocytes # (Manual) Metamyelocytes # Platelet Estimate Large Platelets Plt Morphology Comment RBC Morphology Polychromasia VBG pH VBG pCO2 VBG pO2 VBG HCO3 VBG O2 Saturation VBG Base Excess Anion Gap Estim Creat Clear Calc Estimated GFR POC Glucose 155 H 149 H 148 H Random Glucose Calcium Phosphorus Magnesium Ferritin Total Bilirubin Direct Bilirubin AST ALT Alkaline Phosphatase Total Protein Albumin Beta-Hydroxybutyrate/Acetoacetate L.pneumophila IgM Ab Pneumocystis Source Pneumocyst jiroveci PCR 12/17/21 12/18/21 12/18/21 21:51 06:02 06:02 MCV 87.0 MCH 28.5 MCHC 32.7 RDW 16.4 H Plt Count 246 MPV 10.0 Immature Gran % (Auto) Cancelled Neut % (Auto) Cancelled Lymph % (Auto) Cancelled [place] % (Auto) Cancelled Eos % (Auto) Cancelled Baso % (Auto) Cancelled Lymph # (Auto) Cancelled [place] # (Auto) Cancelled Eos # (Auto) Cancelled Baso # (Auto) Cancelled Abs Immat Gran (auto) Cancelled Absolute Neuts (auto) Cancelled Absolute Nucleated RBC 0.030 H Nucleated RBC % (auto) 0.6 H Neutrophils % (Manual) 78 H Band Neutrophils % 2 L Lymphocytes % (Manual) 12 L Monocytes % (Manual) 4 Basophils % (Manual) 1 Metamyelocytes % 3 Abs Neuts (Manual) 3.9 Lymphocytes # (Manual) 0.6 L Monocytes # (Manual) 0.2 Metamyelocytes # 0.1 Platelet Estimate NORMAL Large Platelets PRESENT Plt Morphology Comment NOTED RBC Morphology NOTED Polychromasia 1+ (0-2) VBG pH VBG pCO2 VBG pO2 VBG HCO3 VBG O2 Saturation VBG Base Excess Anion Gap 12 Estim Creat Clear Calc 111.2 Estimated GFR > 60 POC Glucose 185 H Random Glucose 181 H Calcium 8.7 Phosphorus 3.1 Magnesium 1.8 Ferritin 1862 H Total Bilirubin 0.6 Direct Bilirubin 0.3 AST 43 H ALT 38 H Alkaline Phosphatase 74 Total Protein 7.6 Albumin 3.1 L Beta-Hydroxybutyrate/Acetoacetate L.pneumophila IgM Ab Pneumocystis Source Pneumocyst jiroveci PCR 12/18/21 12/18/21 06:06 07:26 MCV MCH MCHC RDW Plt Count MPV Immature Gran % (Auto) Neut % (Auto) Lymph % (Auto) [place] % (Auto) Eos % (Auto) Baso % (Auto) Lymph # (Auto) [place] # (Auto) Eos # (Auto) Baso # (Auto) Abs Immat Gran (auto) Absolute Neuts (auto) Absolute Nucleated RBC Nucleated RBC % (auto) Neutrophils % (Manual) Band Neutrophils % Lymphocytes % (Manual) Monocytes % (Manual) Basophils % (Manual) Metamyelocytes % Abs Neuts (Manual) Lymphocytes # (Manual) Monocytes # (Manual) Metamyelocytes # Platelet Estimate Large Platelets Plt Morphology Comment RBC Morphology Polychromasia VBG pH 7.45 H VBG pCO2 35 VBG pO2 39 VBG HCO3 24 VBG O2 Saturation 63.0 VBG Base Excess 1.3 Anion Gap Estim Creat Clear Calc Estimated GFR POC Glucose 166 H Random Glucose Calcium Phosphorus Magnesium Ferritin Total Bilirubin Direct Bilirubin AST ALT Alkaline Phosphatase Total Protein Albumin Beta-Hydroxybutyrate/Acetoacetate L.pneumophila IgM Ab Pneumocystis Source Pneumocyst jiroveci PCR Microbiology Microbiology Results: Microbiology 12/16/21 13:04 Gram Stain - Final Sputum - Suctioned Sputum Culture - Final 12/10/21 23:34 Direct Acid Fast Bacilli Smear - Final Spine Acid Fast Bacilli Culture & Smear - Preliminary 12/14/21 10:32 Nocardia Culture - Preliminary Bronchial Washings Assessment and Plan (1) Acute kidney injury: Status: Acute Plan 31-year-old type 2 diabetic morbidly obese female with a background of bipolar disorder and has autoimmune, IGA deficiecny, encephalitis and peripheral polyneuropathy for which she gets monthly IV IG and once yearly rituximab, was admitted for acute hypoxic respiratory failure due to covid, course was complciated by progressive AMS and agitation requiring intubation and ICU stay. extensive work up including EEG and LP did not revela specific diagnosis. she was eventually extubated after diuresis and dexmedetomide. 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
[2021-12-18 11:44] LABS: Glucose, Whole Blood 137 mg/dL (60-115)
[2021-12-18 15:26] LABS: Asperg fumigatus Precip Abs NEGATIVE (NEGATIVE); Micropoly faeni Abs NEGATIVE (NEGATIVE); Pigeon serum Abs NEGATIVE (NEGATIVE); Saccharo pora viridis Abs NEGATIVE (NEGATIVE); Thermo candidus Abs NEGATIVE (NEGATIVE); Thermoa vulgaris #1 NEGATIVE (NEGATIVE)
[2021-12-18 16:14] LABS: Glucose, Whole Blood 148 mg/dL (60-115)
[2021-12-18 20:00] LABS: Glucose, Whole Blood 143 mg/dL (60-115)
[2021-12-19] VITALS (9 sets, daily range): BP systolic 117–150; BP diastolic 75–95; PULSE 88–109; RESP 18–20; TEMP 36.2–37.1; O2SAT 93–97
[2021-12-19 06:09] LABS: MANUAL DIFF FLAG NO
[2021-12-19 06:14] LABS: VBG Base Excess -1.9 mmol/L; VBG HCO3 20 mmol/L (22-26); VBG pCO2 29 mmHg; VBG pH 7.45 (7.32-7.43); VBG pO2 84 mmHg
[2021-12-19 06:15] LABS: Basophils Percent Auto 0.1 % (0-2); Eosinophils Absolute Auto 0.2 X10*3/uL (0.0-0.4); Eosinophils Percent Auto 2.1 % (0-4); Hematocrit 34.1 % (37.0-47.0); Hemoglobin 11.1 g/dl (12.0-16.0); Imm Gran Pct Auto 4.3 % (0.0-0.4); Lymphocytes Absolute Auto 0.9 X10*3/uL (1.2-4.9); Lymphocytes Percent Auto 13.3 % (20-40); Mean Corpuscular HGB Conc 32.6 g/dl (31.0-35.0); Mean Corpuscular Hemoglobin 28.4 pg (27.0-33.0); Mean Corpuscular Volume 87.2 fL (80.0-98.0); Mean Platelet Volume 10.4 fL (9.4-12.3); Monocytes Absolute Auto 0.5 X10*3/uL (0.1-1.2); Neutrophils Absolute Auto 5.1 x10*3/uL (2.0-8.3); Neutrophils Percent Auto 73.2 % (45-73); Platelet Count 275 X10*3/uL (160-400); Red Blood Count 3.91 X10*6/uL (4.20-5.50); Red Cell Distribution Width 17.4 % (11.0-16.0)
[2021-12-19 06:15] LABS: Venous Blood Gas Refer to POC result
[2021-12-19 06:48] LABS: Alanine Aminotransferase 42 U/L (0-31); Albumin Level 3.3 g/dL (3.5-5.0); Alkaline Phosphatase 73 U/L (39-117); Anion Gap 12 (12-20); Anion Gap 14 (12-20); Aspartate Amino Transferase 41 U/L (5-31); Bilirubin Direct 0.3 mg/dL (0.0-0.5); Bilirubin Total 0.6 mg/dL (0.0-1.0); Blood Urea Nitrogen 11 mg/dL (9-16); Calcium 9.1 mg/dL (8.4-10.2); Carbon Dioxide 21 mmol/L (22-29); Chloride 106 mmol/L (96-108); Chloride 107 mmol/L (96-108); Creatinine Clr Calc Pharmacy 111.2; Creatinine Clr Calc Pharmacy 114.3; Estimated Glomerular Filt Rate > 60; Glucose Fasting 170 mg/dL (60-99); Glucose Random 169 mg/dL (60-115); Magnesium 1.9 mg/dL (1.6-2.6); Phosphorus 3.7 mg/dL (2.7-4.5); Potassium 3.6 mmol/L (3.3-5.1); Sodium 136 mmol/L (135-145); Sodium 137 mmol/L (135-145); Total Protein 7.7 g/dL (6.5-8.0)
[2021-12-19 07:09] LABS: Ferritin 1430 ng/mL (10-122)
[2021-12-19 07:44] LABS: Glucose, Whole Blood 154 mg/dL (60-115)
[2021-12-19] MEDS: Albuterol/Iprat 2.5/0.5MG 3 ML AMPUL.NEB INHALE ×3 (07:49→15:19)
[2021-12-19] MEDS: Enoxaparin Sodium 40 MG/0.4 ML SYRINGE SUBCUT (08:49)
[2021-12-19] MEDS: Levothyroxine Sodium 100 MCG/5 ML VIAL 37.5 MCG IVPUSH (08:49)
--- NOTE | 2021-12-19 09:35 | P.PNIM_ITS ---
Subjective Subjective Date of Service: 12/19/21 Interval History: cc: sob interval history: not verbalizing Review of Systems Review of Systems: Yes Unobtainable due to mental condition Physical Exam Verdana 4l Vital Signs: Verdana 4d Verdana 4d Vital Signs: Verdana 4d Verdana 4Bd Last Vital Signs Verdana 4d Melter Loader New 4d Melter Loader New 4d Temp 97.5 F 12/19/21 07:45 Melter Loader New 4d Pulse 104 H 12/19/21 08:02 Melter Loader New 4d Resp 20 12/19/21 08:02 BP 117/79 12/19/21 07:45 Pulse Ox 95 12/19/21 07:45 Oxygen Flow Rate 4 11/29/21 11:52 BMI result Body Mass Index 43.0 General: Alert, not talking Resp:? diminshed bilateral, no accessory muscles used CVS: S1,S2,RRR GI: soft, non tender, non distended Neuro:? alert, not talking, follows simple commands, choreaform movements Psych: flat affect, impaired insight? Objective Data Active Medications Albuterol/Ipratropium (Albuterol/Iprat 2.5/0.5mg 3 Ml Ampul.Neb) 3 ml INHALE RQ4H WHILE AWAKE [facility] Last Admin: 12/19/21 07:49 Dose: 3 ml Documented by: BLANKA Enoxaparin Sodium (Enoxaparin Sodium 40 Mg/0.4 Ml Syringe) 40 mg SUBCUT Q24H [facility] Last Admin: 12/19/21 08:49 Dose: 40 mg Documented by: HARSHIL Potassium Chloride/Dextrose () 20 meq in 1,000 mls @ 80 mls/hr IVCONT .[id number] [facility] Last Admin: 12/18/21 21:01 Dose: 80 mls/hr Documented by: HECTOR Insulin Human Lispro (Insulin Lispro 100 Unit/Ml 3 Ml Vial) 0 unit SUBCUT QIDACHS [facility]; Protocol Last Admin: 12/19/21 08:48 Dose: Not Given Documented by: HARSHIL Non-Admin Reason: NPO Levothyroxine Sodium (Levothyroxine Sodium 100 Mcg/5 Ml Vial) 37.5 mcg IVPUSH DAILY [facility] Last Admin: 12/19/21 08:49 Dose: 37.5 mcg Documented by: HARSHIL Lorazepam (Lorazepam 2 Mg/Ml Vial) 0.5 mg IVPUSH Q4H PRN PRN Reason: Anxiety Last Admin: 12/16/21 22:51 Dose: 0.5 mg Documented by: DAVID Pharmacy Consult (Consult Rx Perform Med Rec) 1 each MISCELLANE ONCE PRN PRN Reason: Consult order Sodium Chloride (0.9 % Sodium Chloride Flush 3 Ml Syringe) 3 ml IVFLUSH QSHIFT RADHA Last Admin: 12/19/21 08:49 Dose: Not Given Documented by: HARSHIL Non-Admin Reason: IV Running Labs CBC & Chem 7: 12/19/21 06:02 12/19/21 06:02 Labs: Laboratory Results - last 24 hr 11/29/21 11/30/21 12/01/21 12:46 05:41 06:00 MCV MCH MCHC RDW Plt Count MPV Immature Gran % (Auto) Neut % (Auto) Lymph % (Auto) [place] % (Auto) Eos % (Auto) Baso % (Auto) Lymph # (Auto) [place] # (Auto) Eos # (Auto) Baso # (Auto) Abs Immat Gran (auto) Absolute Neuts (auto) Absolute Nucleated RBC Nucleated RBC % (auto) VBG pH VBG pCO2 VBG pO2 VBG HCO3 VBG O2 Saturation VBG Base Excess Sodium 143 145 148 H Anion Gap Estim Creat Clear Calc Estimated GFR POC Glucose Random Glucose Fasting Glucose Calcium Phosphorus Magnesium Ferritin Total Bilirubin Direct Bilirubin AST ALT Alkaline Phosphatase Total Protein Albumin [place] Serum IgG Ab Saccharo. viridis Ab T. candidus Antibody T. vulgaris 1 Antibody Aspergill fumigatus Ab Micropolyspora faeni Ab 12/02/21 12/04/21 12/05/21 05:53 06:25 06:00 MCV MCH MCHC RDW Plt Count MPV Immature Gran % (Auto) Neut % (Auto) Lymph % (Auto) [place] % (Auto) Eos % (Auto) Baso % (Auto) Lymph # (Auto) [place] # (Auto) Eos # (Auto) Baso # (Auto) Abs Immat Gran (auto) Absolute Neuts (auto) Absolute Nucleated RBC Nucleated RBC % (auto) VBG pH VBG pCO2 VBG pO2 VBG HCO3 VBG O2 Saturation VBG Base Excess Sodium 144 149 H 147 H Anion Gap Estim Creat Clear Calc Estimated GFR POC Glucose Random Glucose Fasting Glucose Calcium Phosphorus Magnesium Ferritin Total Bilirubin Direct Bilirubin AST ALT Alkaline Phosphatase Total Protein Albumin [place] Serum IgG Ab Saccharo. viridis Ab T. candidus Antibody T. vulgaris 1 Antibody Aspergill fumigatus Ab Micropolyspora faeni Ab 12/06/21 12/07/21 12/08/21 06:16 07:39 07:18 MCV MCH MCHC RDW Plt Count MPV Immature Gran % (Auto) Neut % (Auto) Lymph % (Auto) [place] % (Auto) Eos % (Auto) Baso % (Auto) Lymph # (Auto) [place] # (Auto) Eos # (Auto) Baso # (Auto) Abs Immat Gran (auto) Absolute Neuts (auto) Absolute Nucleated RBC Nucleated RBC % (auto) VBG pH VBG pCO2 VBG pO2 VBG HCO3 VBG O2 Saturation VBG Base Excess Sodium 146 H 143 145 Anion Gap Estim Creat Clear Calc Estimated GFR POC Glucose Random Glucose Fasting Glucose Calcium Phosphorus Magnesium Ferritin Total Bilirubin Direct Bilirubin AST ALT Alkaline Phosphatase Total Protein Albumin [place] Serum IgG Ab Saccharo. viridis Ab T. candidus Antibody T. vulgaris 1 Antibody Aspergill fumigatus Ab Micropolyspora faeni Ab 12/09/21 12/09/21 12/10/21 06:04 15:49 08:04 MCV MCH MCHC RDW Plt Count MPV Immature Gran % (Auto) Neut % (Auto) Lymph % (Auto) [place] % (Auto) Eos % (Auto) Baso % (Auto) Lymph # (Auto) [place] # (Auto) Eos # (Auto) Baso # (Auto) Abs Immat Gran (auto) Absolute Neuts (auto) Absolute Nucleated RBC Nucleated RBC % (auto) VBG pH VBG pCO2 VBG pO2 VBG HCO3 VBG O2 Saturation VBG Base Excess Sodium 149 H 151 H 157 H Anion Gap Estim Creat Clear Calc Estimated GFR POC Glucose Random Glucose Fasting Glucose Calcium Phosphorus Magnesium Ferritin Total Bilirubin Direct Bilirubin AST ALT Alkaline Phosphatase Total Protein Albumin [place] Serum IgG Ab Saccharo. viridis Ab T. candidus Antibody T. vulgaris 1 Antibody Aspergill fumigatus Ab Micropolyspora faeni Ab 12/10/21 12/10/21 12/10/21 12:00 15:11 18:53 MCV MCH MCHC RDW Plt Count MPV Immature Gran % (Auto) Neut % (Auto) Lymph % (Auto) [place] % (Auto) Eos % (Auto) Baso % (Auto) Lymph # (Auto) [place] # (Auto) Eos # (Auto) Baso # (Auto) Abs Immat Gran (auto) Absolute Neuts (auto) Absolute Nucleated RBC Nucleated RBC % (auto) VBG pH VBG pCO2 VBG pO2 VBG HCO3 VBG O2 Saturation VBG Base Excess Sodium 158 H 160 H* Cancelled Anion Gap Estim Creat Clear Calc Estimated GFR POC Glucose Random Glucose Fasting Glucose Calcium Phosphorus Magnesium Ferritin Total Bilirubin Direct Bilirubin AST ALT Alkaline Phosphatase Total Protein Albumin [place] Serum IgG Ab Saccharo. viridis Ab T. candidus Antibody T. vulgaris 1 Antibody Aspergill fumigatus Ab Micropolyspora faeni Ab 12/10/21 12/11/21 12/11/21 23:35 05:15 05:15 MCV MCH MCHC RDW Plt Count MPV Immature Gran % (Auto) Neut % (Auto) Lymph % (Auto) [place] % (Auto) Eos % (Auto) Baso % (Auto) Lymph # (Auto) [place] # (Auto) Eos # (Auto) Baso # (Auto) Abs Immat Gran (auto) Absolute Neuts (auto) Absolute Nucleated RBC Nucleated RBC % (auto) VBG pH VBG pCO2 VBG pO2 VBG HCO3 VBG O2 Saturation VBG Base Excess Sodium 152 H Cancelled 148 H Anion Gap Estim Creat Clear Calc Estimated GFR POC Glucose Random Glucose Fasting Glucose Calcium Phosphorus Magnesium Ferritin Total Bilirubin Direct Bilirubin AST ALT Alkaline Phosphatase Total Protein Albumin [place] Serum IgG Ab Saccharo. viridis Ab T. candidus Antibody T. vulgaris 1 Antibody Aspergill fumigatus Ab Micropolyspora faeni Ab 12/11/21 12/11/21 12/11/21 08:05 11:46 19:33 MCV MCH MCHC RDW Plt Count MPV Immature Gran % (Auto) Neut % (Auto) Lymph % (Auto) [place] % (Auto) Eos % (Auto) Baso % (Auto) Lymph # (Auto) [place] # (Auto) Eos # (Auto) Baso # (Auto) Abs Immat Gran (auto) Absolute Neuts (auto) Absolute Nucleated RBC Nucleated RBC % (auto) VBG pH VBG pCO2 VBG pO2 VBG HCO3 VBG O2 Saturation VBG Base Excess Sodium 144 147 H 145 Anion Gap Estim Creat Clear Calc Estimated GFR POC Glucose Random Glucose Fasting Glucose Calcium Phosphorus Magnesium Ferritin Total Bilirubin Direct Bilirubin AST ALT Alkaline Phosphatase Total Protein Albumin [place] Serum IgG Ab Saccharo. viridis Ab T. candidus Antibody T. vulgaris 1 Antibody Aspergill fumigatus Ab Micropolyspora faeni Ab 12/12/21 12/13/21 12/13/21 05:35 04:50 13:21 MCV MCH MCHC RDW Plt Count MPV Immature Gran % (Auto) Neut % (Auto) Lymph % (Auto) [place] % (Auto) Eos % (Auto) Baso % (Auto) Lymph # (Auto) [place] # (Auto) Eos # (Auto) Baso # (Auto) Abs Immat Gran (auto) Absolute Neuts (auto) Absolute Nucleated RBC Nucleated RBC % (auto) VBG pH VBG pCO2 VBG pO2 VBG HCO3 VBG O2 Saturation VBG Base Excess Sodium 148 H 146 H Anion Gap Estim Creat Clear Calc Estimated GFR POC Glucose Random Glucose Fasting Glucose Calcium Phosphorus Magnesium Ferritin Total Bilirubin Direct Bilirubin AST ALT Alkaline Phosphatase Total Protein Albumin [place] Serum IgG Ab NEGATIVE Saccharo. viridis Ab NEGATIVE T. candidus Antibody NEGATIVE T. vulgaris 1 Antibody NEGATIVE Aspergill fumigatus Ab NEGATIVE Micropolyspora faeni Ab NEGATIVE 12/14/21 12/14/21 12/15/21 05:20 19:40 05:15 MCV MCH MCHC RDW Plt Count MPV Immature Gran % (Auto) Neut % (Auto) Lymph % (Auto) [place] % (Auto) Eos % (Auto) Baso % (Auto) Lymph # (Auto) [place] # (Auto) Eos # (Auto) Baso # (Auto) Abs Immat Gran (auto) Absolute Neuts (auto) Absolute Nucleated RBC Nucleated RBC % (auto) VBG pH VBG pCO2 VBG pO2 VBG HCO3 VBG O2 Saturation VBG Base Excess Sodium 139 143 142 Anion Gap Estim Creat Clear Calc Estimated GFR POC Glucose Random Glucose Fasting Glucose Calcium Phosphorus Magnesium Ferritin Total Bilirubin Direct Bilirubin AST ALT Alkaline Phosphatase Total Protein Albumin [place] Serum IgG Ab Saccharo. viridis Ab T. candidus Antibody T. vulgaris 1 Antibody Aspergill fumigatus Ab Micropolyspora faeni Ab 12/16/21 12/17/21 12/18/21 05:35 05:30 06:02 MCV MCH MCHC RDW Plt Count MPV Immature Gran % (Auto) Neut % (Auto) Lymph % (Auto) [place] % (Auto) Eos % (Auto) Baso % (Auto) Lymph # (Auto) [place] # (Auto) Eos # (Auto) Baso # (Auto) Abs Immat Gran (auto) Absolute Neuts (auto) Absolute Nucleated RBC Nucleated RBC % (auto) VBG pH VBG pCO2 VBG pO2 VBG HCO3 VBG O2 Saturation VBG Base Excess Sodium 142 146 H 138 Anion Gap Estim Creat Clear Calc Estimated GFR POC Glucose Random Glucose Fasting Glucose Calcium Phosphorus Magnesium Ferritin Total Bilirubin Direct Bilirubin AST ALT Alkaline Phosphatase Total Protein Albumin [place] Serum IgG Ab Saccharo. viridis Ab T. candidus Antibody T. vulgaris 1 Antibody Aspergill fumigatus Ab Micropolyspora faeni Ab 12/18/21 12/18/21 12/18/21 11:33 16:06 19:41 MCV MCH MCHC RDW Plt Count MPV Immature Gran % (Auto) Neut % (Auto) Lymph % (Auto) [place] % (Auto) Eos % (Auto) Baso % (Auto) Lymph # (Auto) [place] # (Auto) Eos # (Auto) Baso # (Auto) Abs Immat Gran (auto) Absolute Neuts (auto) Absolute Nucleated RBC Nucleated RBC % (auto) VBG pH VBG pCO2 VBG pO2 VBG HCO3 VBG O2 Saturation VBG Base Excess Sodium Anion Gap Estim Creat Clear Calc Estimated GFR POC Glucose 137 H 148 H 143 H Random Glucose Fasting Glucose Calcium Phosphorus Magnesium Ferritin Total Bilirubin Direct Bilirubin AST ALT Alkaline Phosphatase Total Protein Albumin [place] Serum IgG Ab Saccharo. viridis Ab T. candidus Antibody T. vulgaris 1 Antibody Aspergill fumigatus Ab Micropolyspora faeni Ab 12/19/21 12/19/21 12/19/21 06:02 06:02 06:02 MCV 87.2 MCH 28.4 MCHC 32.6 RDW 17.4 H Plt Count 275 MPV 10.4 Immature Gran % (Auto) 4.3 H Neut % (Auto) 73.2 H Lymph % (Auto) 13.3 L [place] % (Auto) 7.0 Eos % (Auto) 2.1 Baso % (Auto) 0.1 Lymph # (Auto) 0.9 L [place] # (Auto) 0.5 Eos # (Auto) 0.2 Baso # (Auto) 0.0 Abs Immat Gran (auto) 0.30 H Absolute Neuts (auto) 5.1 Absolute Nucleated RBC 0.000 Nucleated RBC % (auto) 0.0 VBG pH VBG pCO2 VBG pO2 VBG HCO3 VBG O2 Saturation VBG Base Excess Sodium 137 136 Anion Gap 14 12 Estim Creat Clear Calc 111.2 114.3 Estimated GFR > 60 > 60 POC Glucose Random Glucose 169 H Fasting Glucose 170 H Calcium 9.1 9.1 Phosphorus 3.7 Magnesium 1.9 Ferritin 1430 H Total Bilirubin 0.6 Direct Bilirubin 0.3 AST 41 H ALT 42 H Alkaline Phosphatase 73 Total Protein 7.7 Albumin 3.3 L [place] Serum IgG Ab Saccharo. viridis Ab T. candidus Antibody T. vulgaris 1 Antibody Aspergill fumigatus Ab Micropolyspora faeni Ab 12/19/21 12/19/21 06:07 07:19 MCV MCH MCHC RDW Plt Count MPV Immature Gran % (Auto) Neut % (Auto) Lymph % (Auto) [place] % (Auto) Eos % (Auto) Baso % (Auto) Lymph # (Auto) [place] # (Auto) Eos # (Auto) Baso # (Auto) Abs Immat Gran (auto) Absolute Neuts (auto) Absolute Nucleated RBC Nucleated RBC % (auto) VBG pH 7.45 H VBG pCO2 29 VBG pO2 84 VBG HCO3 20 L VBG O2 Saturation 96.0 VBG Base Excess -1.9 Sodium Anion Gap Estim Creat Clear Calc Estimated GFR POC Glucose 154 H Random Glucose Fasting Glucose Calcium Phosphorus Magnesium Ferritin Total Bilirubin Direct Bilirubin AST ALT Alkaline Phosphatase Total Protein Albumin [place] Serum IgG Ab Saccharo. viridis Ab T. candidus Antibody T. vulgaris 1 Antibody Aspergill fumigatus Ab Micropolyspora faeni Ab Microbiology Microbiology Results: Microbiology 12/16/21 13:04 Gram Stain - Final Sputum - Suctioned Sputum Culture - Final Assessment and Plan (1) Acute kidney injury: Status: Acute Plan 31-year-old type 2 diabetic morbidly obese female with a background of bipolar disorder and has autoimmune, IGA deficiecny, encephalitis and peripheral polyneuropathy for which she gets monthly IV IG and once yearly rituximab, was admitted for acute hypoxic respiratory failure due to covid, course was complciated by progressive AMS and agitation requiring intubation and ICU stay. extensive work up including EEG and LP did not revela specific diagnosis. she was eventually extubated after diuresis and dexmedetomide. she is now on room air, responding to commands, but not talking acute hypoxic respiratory failure due to covid pneumonia appears resolved keep on airborne isolation due to immunocompromised state - pcr still positive, antibody negative metabolic encephalopathy and agitated delerium improved, but still not talking neuro follow up dysphagia [employer] follow up DM insulin CRISPIN resolved hypernatremia resolved dvt prophylaxis - lovenox Quality Stroke Does the patient have a stroke diagnosis?: No VTE Prior VTE?: No VTE Risk Level:: Medical - moderate - high VTE Device Contraindication: Treatment Not Indicated VTE Drug Contraindication: N/A - Med Ordered
[2021-12-19 11:10] LABS: Glucose, Whole Blood 145 mg/dL (60-115)
--- NOTE | 2021-12-19 11:27 | P.CNNE_ITS ---
History of Present Illness Data of Consult Service Date: 12/19/21 Primary Care Provider: Lachelle Guerra MD HPI Reason for consult: Encephalopathy 31 years old woman with underlying history of bipolar disorder and apparently Immune deficiency syndrome treated with IVIG as an outpatient. She came to ospital with tachycardia respiratory distress and mental confusion. She was COVID positive despite having Pfizer vaccination. Her situation worsen when her serum sodium reached 160. She was transferred to ICU and stayed there for a while. Now she was out of ICU and was noted to not be communicating at this consultation was requested. She was unable to provide any history. Review of Systems Verdana 4l Review of Systems: Verdana 4d Could not be done with Verdana 4d her Verdana 4d PMFSH Past Medical History Medical History (Updated 12/19/21 @ 11:32 by Idalmis Magaña MD) Acquired hypothyroidism Bipolar disorder Blurred vision, bilateral Clinical decompensation Diabetes mellitus with hyperglycemia Elevated vitamin B12 level Esophagitis with gastritis Essential hypertension Gait instability Gastric paresis Hx of Escherichia coli septicemia Hyperlipidemia Hypogammaglobulinemia Muscle weakness Obesity, morbid, BMI 40.0-49.9 Peripheral neuropathy Suppression of immune system subtherapeutic Vitamin D deficiency Family History Family History Other Adopted Family history: reviewed and not pertinent Surgical History Surgical History Hx of section Hx of tooth extraction Social History Social History Household Members: Adopted Family Housing: Unknown / Unable to assess Alcohol intake: never Patient Tobacco Use Status: Former Tobacco user Second Hand Smoke Exposure: No service: No Current occupational status: disabled Gender identity: Female Meds Allergies Allergy/AdvReac Type Severity Reaction Status Date / Time latex Allergy Unknown rash Verified 11/14/21 00:57 metoclopramide [From AdvReac Unknown INTERACTS Verified 11/14/21 00:57 REGLAN] W/ SEROQUEL Active Medications: Current Medications Albuterol/Ipratropium (Albuterol/Iprat 2.5/0.5mg 3 Ml Ampul.Neb) 3 ml INHALE RQ4H WHILE AWAKE RADHA Last Admin: 12/19/21 07:49 Dose: 3 ml Documented by: Enoxaparin Sodium (Enoxaparin Sodium 40 Mg/0.4 Ml Syringe) 40 mg SUBCUT Q24H [facility] Last Admin: 12/19/21 08:49 Dose: 40 mg Documented by: Potassium Chloride/Dextrose () 20 meq in 1,000 mls @ 80 mls/hr IVCONT .[id number] [facility] Last Admin: 12/18/21 21:01 Dose: 80 mls/hr Documented by: Insulin Human Lispro (Insulin Lispro 100 Unit/Ml 3 Ml Vial) 0 unit SUBCUT QIDACHS [facility]; Protocol Last Admin: 12/19/21 11:13 Dose: Not Given Documented by: Levothyroxine Sodium (Levothyroxine Sodium 100 Mcg/5 Ml Vial) 37.5 mcg IVPUSH DAILY [facility] Last Admin: 12/19/21 08:49 Dose: 37.5 mcg Documented by: Lorazepam (Lorazepam 2 Mg/Ml Vial) 0.5 mg IVPUSH Q4H PRN PRN Reason: Anxiety Last Admin: 12/16/21 22:51 Dose: 0.5 mg Documented by: Pharmacy Consult (Consult Rx Perform Med Rec) 1 each MISCELLANE ONCE PRN PRN Reason: Consult order Sodium Chloride (0.9 % Sodium Chloride Flush 3 Ml Syringe) 3 ml IVFLUSH QSHIFT [facility] Last Admin: 12/19/21 08:49 Dose: Not Given Documented by: Home Medications Medication Instructions Recorded Confirmed Last Taken Type bupropion HCl 100 100 mg PO QAM 11/30/20 11/29/21 11/28/21 History mg tablet,12 hr sustained-release trazodone 100 mg 100 mg PO 11/30/20 11/29/21 11/28/21 History tablet BEDTIME cranberry 400 mg 450 mg PO DAILY 03/22/21 11/29/21 11/28/21 History capsule cap melatonin 3 mg 6 mg PO DAILY 03/22/21 11/29/21 11/28/21 History tablet multivitamin 1 tab PO DAILY 03/22/21 11/29/21 11/28/21 History pregabalin 300 mg 300 mg PO BID 05/10/21 11/29/21 11/28/21 History capsule cap rituximab 10 10 mg IV 08/11/21 11/29/21 Unknown History mg/mL [id number] concentrate,intra venous oxcarbazepine 150 450 mg PO BID 08/18/21 11/29/21 11/28/21 History mg tablet tab cholecalciferol 1,250 mcg PO MO 10/16/21 11/29/21 11/28/21 History (vitamin D3) 1,250 mcg (50,000 unit) capsule chlorhexidine 15 ml PO BID 11/29/21 11/29/21 11/28/21 History gluconate 0.12 % mouthwash quetiapine 200 mg 1 tab PO BEDTIME 11/29/21 11/29/21 11/28/21 History tablet quetiapine 400 mg 1 tab PO BEDTIME 11/29/21 11/29/21 11/28/21 History tablet immun glob G 10 450 ml SUBCUT 12/14/21 12/14/21 10/26/21 History gram/100 Q4W mL(10%)-gly-IgA ov50 mcg/mL subcutaneous soln immun glob G 10 500 ml SUBCUT 12/14/21 12/14/21 10/25/21 History gram/100 Q4W mL(10%)-gly-IgA ov50 mcg/mL subcutaneous soln Physical Exam Verdana 4l Vital Signs: Verdana 4d Verdana 4d Vital Signs: Verdana 4d Verdana 4Bd Last Vital Signs Verdana 4d Spring Former Machine New 4d Spring Former Machine New 4d Temp 97.5 F 12/19/21 07:45 Spring Former Machine New 4d Pulse 104 H 12/19/21 08:02 Spring Former Machine New 4d Resp 20 12/19/21 08:02 BP 117/79 12/19/21 07:45 Pulse Ox 95 12/19/21 07:45 Oxygen Flow Rate 4 11/29/21 11:52 BMI result Body Mass Index 43.0 Neuro: Other: she was drowsy and looking around but did not make an eye contact. She did not speaking did not respond to shouting or any verbal command. She was resisting when I tried to move her arms. Pupils were round reactive. Eyes were moving. Face was symmetrical. When I try to examine her her arms went into dystonic posturing. Deep tendon reflexes were trace to absent in arms with absent in legs and equivocal plantars per Results Labs CBC & Chem 7: 12/19/21 06:02 12/19/21 06:02 Labs: Short CBC 11/29/21 11/30/21 12/01/21 Range/Units 12:46 05:41 06:00 WBC (4.8-10.8) X10*3/uL Hgb (12.0-16.0) g/dl Hct (37.0-47.0) % Plt Count (160-400) X10*3/uL Sodium 143 145 148 H (135-145) mmol/L 12/02/21 12/04/21 12/05/21 Range/Units 05:53 06:25 06:00 WBC (4.8-10.8) X10*3/uL Hgb (12.0-16.0) g/dl Hct (37.0-47.0) % Plt Count (160-400) X10*3/uL Sodium 144 149 H 147 H (135-145) mmol/L 12/06/21 12/07/21 12/08/21 Range/Units 06:16 07:39 07:18 WBC (4.8-10.8) X10*3/uL Hgb (12.0-16.0) g/dl Hct (37.0-47.0) % Plt Count (160-400) X10*3/uL Sodium 146 H 143 145 (135-145) mmol/L 12/09/21 12/09/21 12/10/21 Range/Units 06:04 15:49 08:04 WBC (4.8-10.8) X10*3/uL Hgb (12.0-16.0) g/dl Hct (37.0-47.0) % Plt Count (160-400) X10*3/uL Sodium 149 H 151 H 157 H (135-145) mmol/L 12/10/21 12/10/21 12/10/21 Range/Units 12:00 15:11 18:53 WBC (4.8-10.8) X10*3/uL Hgb (12.0-16.0) g/dl Hct (37.0-47.0) % Plt Count (160-400) X10*3/uL Sodium 158 H 160 H* Cancelled (135-145) mmol/L 12/10/21 12/11/21 12/11/21 Range/Units 23:35 05:15 05:15 WBC (4.8-10.8) X10*3/uL Hgb (12.0-16.0) g/dl Hct (37.0-47.0) % Plt Count (160-400) X10*3/uL Sodium 152 H Cancelled 148 H (135-145) mmol/L 12/11/21 12/11/21 12/11/21 Range/Units 08:05 11:46 19:33 WBC (4.8-10.8) X10*3/uL Hgb (12.0-16.0) g/dl Hct (37.0-47.0) % Plt Count (160-400) X10*3/uL Sodium 144 147 H 145 (135-145) mmol/L 12/12/21 12/13/21 12/14/21 Range/Units 05:35 04:50 05:20 WBC (4.8-10.8) X10*3/uL Hgb (12.0-16.0) g/dl Hct (37.0-47.0) % Plt Count (160-400) X10*3/uL Sodium 148 H 146 H 139 (135-145) mmol/L 12/14/21 12/15/21 12/16/21 Range/Units 19:40 05:15 05:35 WBC (4.8-10.8) X10*3/uL Hgb (12.0-16.0) g/dl Hct (37.0-47.0) % Plt Count (160-400) X10*3/uL Sodium 143 142 142 (135-145) mmol/L 12/17/21 12/18/21 12/19/21 Range/Units 05:30 06:02 06:02 WBC 7.0 (4.8-10.8) X10*3/uL Hgb 11.1 L (12.0-16.0) g/dl Hct 34.1 L (37.0-47.0) % Plt Count 275 (160-400) X10*3/uL Sodium 146 H 138 (135-145) mmol/L 12/19/21 12/19/21 Range/Units 06:02 06:02 WBC (4.8-10.8) X10*3/uL Hgb (12.0-16.0) g/dl Hct (37.0-47.0) % Plt Count (160-400) X10*3/uL Sodium 137 136 (135-145) mmol/L BMP 12/19/21 12/19/21 06:02 06:02 Sodium 137 136 Potassium 3.6 3.6 Chloride 106 107 Carbon Dioxide 21 L 21 L BUN 11 11 Creatinine 0.74 0.72 Calcium 9.1 9.1 Liver Function 12/19/21 Range/Units 06:02 Total Bilirubin 0.6 (0.0-1.0) mg/dL Direct Bilirubin 0.3 (0.0-0.5) mg/dL AST 41 H (5-31) U/L ALT 42 H (0-31) U/L Alkaline Phosphatase 73 (39-117) U/L Albumin 3.3 L (3.5-5.0) g/dL an MRI brain in December 10 was of technically limited quality but did not reveal any obvious acute pathology. Microbiology Microbiology Results: Microbiology 12/16/21 13:04 Sputum - Suctioned Gram Stain - Final 12/16/21 13:04 Sputum - Suctioned Sputum Culture - Final 12/10/21 23:34 Spine Direct Acid Fast Bacilli Smear - Final 12/10/21 23:34 Spine Acid Fast Bacilli Culture & Smear - Preliminary 12/14/21 10:32 Bronchial Washings Nocardia Culture - Preliminary 12/14/21 10:33 Bronchial Washings Gram Stain - Final 12/14/21 10:33 Bronchial Washings Routine Culture - Final 12/10/21 11:53 Blood - Subclavian Blood Culture - Final No growth after 5 days. 12/10/21 11:53 Blood - Subclavian Blood Culture - Final No growth after 5 days. 12/12/21 15:40 Sputum - Suctioned Gram Stain - Final 12/12/21 15:40 Sputum - Suctioned Sputum Culture - Final 12/10/21 23:34 Cerebrospinal Fluid Gram Stain - Final 12/10/21 23:34 Cerebrospinal Fluid CSF Examination - Final 12/10/21 23:34 Cerebrospinal Fluid Fluid Description - Final 12/10/21 23:34 Cerebrospinal Fluid CSF Culture - Final No growth after 3 days. 12/10/21 Unknown Urine Catheterized - Kern Catheter Urine Culture - Final 12/04/21 11:43 Blood - Venous Blood Culture - Final No growth after 5 days. 12/04/21 11:43 Blood - Venous Blood Culture - Final No growth after 5 days. 11/29/21 14:01 Blood - Venous Blood Culture - Final No growth after 5 days. 11/29/21 13:51 Blood - Venous Blood Culture - Final No growth after 5 days. 11/29/21 Unknown Urine clean catch - Urine [facility] top Urine Culture - Final Assessment and Plan (1) Encephalopathy: Status: Acute 31 years old woman with complicated underlying history including diagnosis of bipolar disorder an immune deficiency syndrome that was treated with IVIG. She came to hospital with change in mental status and suggestion of hypoxia with COVID. Her situation worsened and her serum sodium reach 160 when mental status deteriorated and she was admitted to intensive care unit. Now she was better as far as serum sodium was concerned, her chest x-ray was better and metabolic numbers were better. Despite that she was not responsive and not talking. I tried to communicate with her but she did not give any indication of communication suggestive of aphasia. She also had some dystonic posturing of arms that was suggestive of central pathology. Underlying she had a reflexia suggestive of chronic neuropathy. Differential diagnosis of this condition included atypical encephalitis including COVID encephalitis. It also included non convulsive seizure disorder, Hypernatremia related brain injury, cerebral reversible vasoconstrictive syndrome, or stroke. COVID encephalitis is a difficult diagnosis to make and is mostly made based upon circumstantial evidence. An MRI of brain can help to define her pathology and her previous MRI was of quite poor quality. I would recommend repeating MRI brain without contrast and an EEG to rule out treatable causes of her problems. Procedures Date of Service Date of Service: 12/19/21
[2021-12-19] MEDS: KCl 20 mEq in 5 % Dextrose 20 MEQ/1,000 ML IV.SOLN 80 MEQ IVCONT (11:29)
--- NOTE | 2021-12-19 11:45 | MHC.CLN ---
F/U PT EXTUBATED PT CURRENTLY NPO DAY 3 PENDING TRANSPORTATION COORDINATOR EVAL FOR APPROPRIATE DIET CONSISTENCY IF DIET TO ADVANCE; RECOMMEND 1500 DM DIET IF PO POOR; WILL ADD SUPPLEMENTS
--- NOTE | 2021-12-19 12:36 | MHC.CM.PN ---
Per ROUNDS discussion, Patient is not yet medically cleared for dc (IV Synthroid, IV K);Home resume CHIEF OF PLANNING 24/ is the goal and CM will follow for possible need to adjust the dc plan.
--- NOTE | 2021-12-19 13:13 | MHC.SLORD ---
Speech Language Pathology Order Status: Attempted to see patient for bedside dysphagia evaluation this morning. Patient opened her eyes momentarily, but would not remain awake more than a few seconds. Patient is NPO. Will try again this afternoon.
[2021-12-19 13:56] LABS: Immunoglobulin G Subclass 1 362 mg/dL (382-929); Immunoglobulin G Subclass 2 211 mg/dL (241-700); Immunoglobulin G Subclass 3 10 mg/dL (22-178); Immunoglobulin G Subclass 4 14.1 mg/dL (4-86); Immunoglobulin G Total 706 mg/dL (600-1640)
[2021-12-19 14:51] LABS: Mycoplasma Pneumoniae - IgG 1.17 (<=0.90); Mycoplasma Pneumoniae - IgM 2 U/mL (<770)
--- NOTE | 2021-12-19 15:41 | PM.IDPN ---
Subjective Subjective Date of Service: 12/17/21 Critical Care Time (minutes): 15 Comment: patient still some confusion she is vented and on Levophed Objective Data Labs CBC & Chem 7: 01/05/22 06:00 01/05/22 06:00 Labs: Laboratory Results - last 24 hr 12/13/21 12/14/21 12/18/21 13:21 09:04 16:06 WBC RBC Hgb Hct MCV MCH MCHC RDW Plt Count MPV Immature Gran % (Auto) Neut % (Auto) Lymph % (Auto) [place] % (Auto) Eos % (Auto) Baso % (Auto) Lymph # (Auto) [place] # (Auto) Eos # (Auto) Baso # (Auto) Abs Immat Gran (auto) Absolute Neuts (auto) Absolute Nucleated RBC Nucleated RBC % (auto) VBG pH VBG pCO2 VBG pO2 VBG HCO3 VBG O2 Saturation VBG Base Excess Sodium Potassium Chloride Carbon Dioxide Anion Gap BUN Creatinine Estim Creat Clear Calc Estimated GFR POC Glucose 148 H Random Glucose Fasting Glucose Calcium Phosphorus Magnesium Ferritin Total Bilirubin Direct Bilirubin AST ALT Alkaline Phosphatase Total Protein Albumin IgG TNP IgG Total 706 IgG Subclass 1 362 L IgG Subclass 2 211 L IgG Subclass 3 10 L IgG Subclass 4 14.1 Mycoplasma pneumon IgG 1.17 H Mycoplasma pneumon IgM 2 12/18/21 12/19/21 12/19/21 19:41 06:02 06:02 WBC 7.0 RBC 3.91 L Hgb 11.1 L Hct 34.1 L MCV 87.2 MCH 28.4 MCHC 32.6 RDW 17.4 H Plt Count 275 MPV 10.4 Immature Gran % (Auto) 4.3 H Neut % (Auto) 73.2 H Lymph % (Auto) 13.3 L [place] % (Auto) 7.0 Eos % (Auto) 2.1 Baso % (Auto) 0.1 Lymph # (Auto) 0.9 L [place] # (Auto) 0.5 Eos # (Auto) 0.2 Baso # (Auto) 0.0 Abs Immat Gran (auto) 0.30 H Absolute Neuts (auto) 5.1 Absolute Nucleated RBC 0.000 Nucleated RBC % (auto) 0.0 VBG pH VBG pCO2 VBG pO2 VBG HCO3 VBG O2 Saturation VBG Base Excess Sodium 137 Potassium 3.6 Chloride 106 Carbon Dioxide 21 L Anion Gap 14 BUN 11 Creatinine 0.74 Estim Creat Clear Calc 111.2 Estimated GFR > 60 POC Glucose 143 H Random Glucose 169 H Fasting Glucose Calcium 9.1 Phosphorus 3.7 Magnesium 1.9 Ferritin 1430 H Total Bilirubin 0.6 Direct Bilirubin 0.3 AST 41 H ALT 42 H Alkaline Phosphatase 73 Total Protein 7.7 Albumin 3.3 L IgG IgG Total IgG Subclass 1 IgG Subclass 2 IgG Subclass 3 IgG Subclass 4 Mycoplasma pneumon IgG Mycoplasma pneumon IgM 12/19/21 12/19/21 12/19/21 06:02 06:07 07:19 WBC RBC Hgb Hct MCV MCH MCHC RDW Plt Count MPV Immature Gran % (Auto) Neut % (Auto) Lymph % (Auto) [place] % (Auto) Eos % (Auto) Baso % (Auto) Lymph # (Auto) [place] # (Auto) Eos # (Auto) Baso # (Auto) Abs Immat Gran (auto) Absolute Neuts (auto) Absolute Nucleated RBC Nucleated RBC % (auto) VBG pH 7.45 H VBG pCO2 29 VBG pO2 84 VBG HCO3 20 L VBG O2 Saturation 96.0 VBG Base Excess -1.9 Sodium 136 Potassium 3.6 Chloride 107 Carbon Dioxide 21 L Anion Gap 12 BUN 11 Creatinine 0.72 Estim Creat Clear Calc 114.3 Estimated GFR > 60 POC Glucose 154 H Random Glucose Fasting Glucose 170 H Calcium 9.1 Phosphorus Magnesium Ferritin Total Bilirubin Direct Bilirubin AST ALT Alkaline Phosphatase Total Protein Albumin IgG IgG Total IgG Subclass 1 IgG Subclass 2 IgG Subclass 3 IgG Subclass 4 Mycoplasma pneumon IgG Mycoplasma pneumon IgM 12/19/21 10:55 WBC RBC Hgb Hct MCV MCH MCHC RDW Plt Count MPV Immature Gran % (Auto) Neut % (Auto) Lymph % (Auto) [place] % (Auto) Eos % (Auto) Baso % (Auto) Lymph # (Auto) [place] # (Auto) Eos # (Auto) Baso # (Auto) Abs Immat Gran (auto) Absolute Neuts (auto) Absolute Nucleated RBC Nucleated RBC % (auto) VBG pH VBG pCO2 VBG pO2 VBG HCO3 VBG O2 Saturation VBG Base Excess Sodium Potassium Chloride Carbon Dioxide Anion Gap BUN Creatinine Estim Creat Clear Calc Estimated GFR POC Glucose 145 H Random Glucose Fasting Glucose Calcium Phosphorus Magnesium Ferritin Total Bilirubin Direct Bilirubin AST ALT Alkaline Phosphatase Total Protein Albumin IgG IgG Total IgG Subclass 1 IgG Subclass 2 IgG Subclass 3 IgG Subclass 4 Mycoplasma pneumon IgG Mycoplasma pneumon IgM Microbiology Microbiology Results: Microbiology 12/14/21 10:32 Bronchial Washings Nocardia Culture - Preliminary 12/16/21 13:04 Sputum - Suctioned Gram Stain - Final 12/16/21 13:04 Sputum - Suctioned Sputum Culture - Final 12/10/21 23:34 Spine Direct Acid Fast Bacilli Smear - Final 12/10/21 23:34 Spine Acid Fast Bacilli Culture & Smear - Preliminary 12/14/21 10:33 Bronchial Washings Gram Stain - Final 12/14/21 10:33 Bronchial Washings Routine Culture - Final 12/10/21 11:53 Blood - Subclavian Blood Culture - Final No growth after 5 days. 12/10/21 11:53 Blood - Subclavian Blood Culture - Final No growth after 5 days. 12/12/21 15:40 Sputum - Suctioned Gram Stain - Final 12/12/21 15:40 Sputum - Suctioned Sputum Culture - Final 12/10/21 23:34 Cerebrospinal Fluid Gram Stain - Final 12/10/21 23:34 Cerebrospinal Fluid CSF Examination - Final 12/10/21 23:34 Cerebrospinal Fluid Fluid Description - Final 12/10/21 23:34 Cerebrospinal Fluid CSF Culture - Final No growth after 3 days. 12/10/21 Unknown Urine Catheterized - Kern Catheter Urine Culture - Final 12/04/21 11:43 Blood - Venous Blood Culture - Final No growth after 5 days. 12/04/21 11:43 Blood - Venous Blood Culture - Final No growth after 5 days. 11/29/21 14:01 Blood - Venous Blood Culture - Final No growth after 5 days. 11/29/21 13:51 Blood - Venous Blood Culture - Final No growth after 5 days. 11/29/21 Unknown Urine clean catch - Urine [facility] top Urine Culture - Final Physical Exam Vital Signs: Vital Signs: Last Vital Signs Temp 98.4 F 12/19/21 15:19 Pulse 105 H 12/19/21 15:21 Resp 20 12/19/21 15:21 BP 119/89 12/19/21 15:19 Pulse Ox 95 12/19/21 15:19 Oxygen Flow Rate 4 11/29/21 11:52 BMI result Body Mass Index 43.0 Neck: Neck: Yes normal visual inspection Resp: Effort & Inspection: normal respiratory effort Cardio: Rate: regular rate Rhythm: regular rhythm GI: Palpation (GI): Soft to palpation and not firm Skin: General skin exam: no rashes or lesions noted Assessment and Plan Assessment and plan (1) Encephalopathy: Problem details: Possible misc-A but doesnt meet all criteria (multisystem inflammatory syndrome -adult) 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 She has some RV dilatation (but doesnt meet criteria for severe cardiac illness or have rash and conjunctivitis (these are both CDC major criteria if found) She did have hypotension/shock CRP/ESR pending abdominal pain not present at this time She has had COVID and hypotension and confusion She has received treatment with IVIG and steroids Status: Resolved Assessment and Plan: Follow symptomatically Consider prophylactic/therapeutic voriconazole if doesnt continue to improve (2) Hypogammaglobulinemia: (3) Encephalopathy, metabolic: Status: Deleted Time Spent With Patient Time: Total time spent is greater than 50% in coordination of care (as documented) at patient's floor/unit and/or counseling patient: Time with patient: 15 - 24 minutes
--- NOTE | 2021-12-19 15:45 | MHC.SLORD ---
Speech Language Pathology Order Status: Order received for bedside dysphagia evaluation. Attempted BDE 2x times today- Patient sleeping this morning and did not wake to sternal rub. When PEDIATRIC ACUTE CARE UNIT NURSE returned this afternoon, patient was awake, eyes open. Patient did not answer questions or follow directions. Patient would not open her mouth for trials. Will re-attempt tomorrow morning.
[2021-12-19] MEDS: 0.9 % Sodium Chloride Flush 3 ML SYRINGE IVFLUSH (16:12)
[2021-12-19 16:16] LABS: Glucose, Whole Blood 164 mg/dL (60-115)
[2021-12-19 17:02] LABS: C Reactive Protein 0.39 mg/dL (< or = 0.50)
[2021-12-19 17:33] LABS: Erythrocyte Sedimentation Rate 77 MM/HR (0-20)
[2021-12-19] MEDS: Insulin Lispro 100 UNIT/ML 3 ML VIAL SUBCUT ×2 (17:36→20:46)
[2021-12-19 20:15] LABS: Glucose, Whole Blood 156 mg/dL (60-115)
[2021-12-20] VITALS: BP 140/86; PULSE 111; RESP 20; TEMP 36.3; O2SAT 95
[2021-12-20] MEDS: KCl 20 mEq in 5 % Dextrose 20 MEQ/1,000 ML IV.SOLN 80 MEQ IVCONT (01:10)
[2021-12-20] MEDS: 0.9 % Sodium Chloride Flush 3 ML SYRINGE IVFLUSH ×2 (01:10→07:56)
[2021-12-20 03:58] VITALS: BP 141/91; PULSE 112; RESP 20; TEMP 37.1; O2SAT 92
[2021-12-20 06:26] LABS: Hematocrit 36.1 % (37.0-47.0); Hemoglobin 11.7 g/dl (12.0-16.0); Mean Corpuscular HGB Conc 32.4 g/dl (31.0-35.0); Mean Corpuscular Hemoglobin 28.4 pg (27.0-33.0); Mean Corpuscular Volume 87.6 fL (80.0-98.0); Mean Platelet Volume 10.3 fL (9.4-12.3); Platelet Count 304 X10*3/uL (160-400); Red Blood Count 4.12 X10*6/uL (4.20-5.50); Red Cell Distribution Width 18.3 % (11.0-16.0); White Blood Count 6.4 X10*3/uL (4.8-10.8)
[2021-12-20 06:42] LABS: Anion Gap 14 (12-20); Blood Urea Nitrogen 9 mg/dL (9-16); Calcium 9.4 mg/dL (8.4-10.2); Carbon Dioxide 19 mmol/L (22-29); Chloride 107 mmol/L (96-108); Creatinine Clr Calc Pharmacy 111.2; Estimated Glomerular Filt Rate > 60; Glucose Fasting 172 mg/dL (60-99); Potassium 3.9 mmol/L (3.3-5.1); Sodium 136 mmol/L (135-145)
[2021-12-20 07:26] LABS: Glucose, Whole Blood 169 mg/dL (60-115)
[2021-12-20 07:35] VITALS: BP 129/89; PULSE 89; RESP 20; TEMP 37; O2SAT 94
[2021-12-20] MEDS: Insulin Lispro 100 UNIT/ML 3 ML VIAL SUBCUT ×2 (07:55→21:20)
[2021-12-20] MEDS: Levothyroxine Sodium 100 MCG/5 ML VIAL 37.5 MCG IVPUSH (07:56)
[2021-12-20] MEDS: Enoxaparin Sodium 40 MG/0.4 ML SYRINGE SUBCUT (07:56)
[2021-12-20] MEDS: LORazepam 2 MG/ML VIAL 0.5 MG IVPUSH (08:19)
--- NOTE | 2021-12-20 10:26 | HO.PM.IMPN ---
Subjective Subjective Date of Service: 12/20/21 Interval History: cc: sob interval history: not verbalizing Review of Systems Review of Systems: Yes Unobtainable due to mental condition Physical Exam Vital Signs: Vital Signs: Last Vital Signs Temp 98.6 F 12/20/21 07:35 Pulse 89 12/20/21 07:35 Resp 20 12/20/21 07:35 BP 129/89 12/20/21 07:35 Pulse Ox 94 12/20/21 07:35 Oxygen Flow Rate 4 11/29/21 11:52 BMI result Body Mass Index 43.0 General: Alert, not talking Resp:? diminshed bilateral, no accessory muscles used CVS: S1,S2,RRR GI: soft, non tender, non distended Neuro:? alert, tracking, not talking, not following commands today, Psych: flat affect, impaired insight? Objective Data Active Medications Enoxaparin Sodium (Enoxaparin Sodium 40 Mg/0.4 Ml Syringe) 40 mg SUBCUT Q24H [facility] Last Admin: 12/20/21 07:56 Dose: 40 mg Documented by: ERASMO Potassium Chloride/Dextrose () 20 meq in 1,000 mls @ 80 mls/hr IVCONT .[id number] [facility] Last Admin: 12/20/21 01:10 Dose: 80 mls/hr Documented by: CARLOS Insulin Human Lispro (Insulin Lispro 100 Unit/Ml 3 Ml Vial) 0 unit SUBCUT QIDACHS [facility]; Protocol Last Admin: 12/20/21 07:55 Dose: 2 unit Documented by: ERASMO Levothyroxine Sodium (Levothyroxine Sodium 100 Mcg/5 Ml Vial) 37.5 mcg IVPUSH DAILY [facility] Last Admin: 12/20/21 07:56 Dose: 37.5 mcg Documented by: ERASMO Lorazepam (Lorazepam 2 Mg/Ml Vial) 0.5 mg IVPUSH Q4H PRN PRN Reason: Anxiety Last Admin: 12/20/21 08:19 Dose: 0.5 mg Documented by: ERASMO Pharmacy Consult (Consult Rx Perform Med Rec) 1 each MISCELLANE ONCE PRN PRN Reason: Consult order Sodium Chloride (0.9 % Sodium Chloride Flush 3 Ml Syringe) 3 ml IVFLUSH QSHIFT [facility] Last Admin: 12/20/21 07:56 Dose: 3 ml Documented by: ERASMO Labs CBC & Chem 7: 12/20/21 06:06 12/20/21 06:06 Labs: Laboratory Results - last 24 hr 12/13/21 12/14/21 12/19/21 13:21 09:04 10:55 MCV MCH MCHC RDW Plt Count MPV Absolute Nucleated RBC Nucleated RBC % (auto) ESR Anion Gap Estim Creat Clear Calc Estimated GFR POC Glucose 145 H Fasting Glucose Calcium C-Reactive Protein IgG TNP IgG Total 706 IgG Subclass 1 362 L IgG Subclass 2 211 L IgG Subclass 3 10 L IgG Subclass 4 14.1 Mycoplasma pneumon IgG 1.17 H Mycoplasma pneumon IgM 2 12/19/21 12/19/21 12/19/21 15:22 16:27 16:27 MCV MCH MCHC RDW Plt Count MPV Absolute Nucleated RBC Nucleated RBC % (auto) ESR 77 H Anion Gap Estim Creat Clear Calc Estimated GFR POC Glucose 164 H Fasting Glucose Calcium C-Reactive Protein 0.39 IgG IgG Total IgG Subclass 1 IgG Subclass 2 IgG Subclass 3 IgG Subclass 4 Mycoplasma pneumon IgG Mycoplasma pneumon IgM 12/19/21 12/20/21 12/20/21 20:05 06:06 06:06 MCV 87.6 MCH 28.4 MCHC 32.4 RDW 18.3 H Plt Count 304 MPV 10.3 Absolute Nucleated RBC 0.000 Nucleated RBC % (auto) 0.0 ESR Anion Gap 14 Estim Creat Clear Calc 111.2 Estimated GFR > 60 POC Glucose 156 H Fasting Glucose 172 H Calcium 9.4 C-Reactive Protein IgG IgG Total IgG Subclass 1 IgG Subclass 2 IgG Subclass 3 IgG Subclass 4 Mycoplasma pneumon IgG Mycoplasma pneumon IgM 12/20/21 07:16 MCV MCH MCHC RDW Plt Count MPV Absolute Nucleated RBC Nucleated RBC % (auto) ESR Anion Gap Estim Creat Clear Calc Estimated GFR POC Glucose 169 H Fasting Glucose Calcium C-Reactive Protein IgG IgG Total IgG Subclass 1 IgG Subclass 2 IgG Subclass 3 IgG Subclass 4 Mycoplasma pneumon IgG Mycoplasma pneumon IgM Microbiology Microbiology Results: Microbiology 12/14/21 10:32 Nocardia Culture - Preliminary Bronchial Washings Assessment and Plan (1) Acute kidney injury: Status: Acute Plan 31-year-old type 2 diabetic morbidly obese female with a background of bipolar disorder and has autoimmune, IGA deficiecny, encephalitis and peripheral polyneuropathy for which she gets monthly IV IG and once yearly rituximab, was admitted for acute hypoxic respiratory failure due to covid, course was complciated by progressive AMS and agitation requiring intubation and ICU stay. extensive work up including EEG and LP did not revela specific diagnosis. she was eventually extubated after diuresis and dexmedetomide. she is now on room air, responding to commands, but not talking acute hypoxic respiratory failure due to covid pneumonia appears resolved keep on airborne isolation due to immunocompromised state - pcr still positive, antibody negative metabolic encephalopathy and agitated delerium improved, but still not talking neuro appreciated differential includes seizure, covid encephalitis, MIS-A, plan to repeat MRI and EEG dysphagia SPONGE FISHERMAN follow up if continues not to improve will need to consider alternate means of nutrition DM insulin CRISPIN resolved hypernatremia resolved dvt prophylaxis - lovenox Quality Stroke Does the patient have a stroke diagnosis?: No VTE Prior VTE?: No VTE Risk Level:: Medical - moderate - high VTE Device Contraindication: Treatment Not Indicated VTE Drug Contraindication: N/A - Med Ordered
--- NOTE | 2021-12-20 10:27 | MHC.CLN ---
Addendum entered by Yamini Trevino RD 12/20/21 12:05: NOTIFIED BY PATTERNATOR UNABLE TO COMPETE EVAL TODAY; PT REFUSED RECOMMEND PPN D10 AA4.25 AT 50ML/HR TO PROVIDE 612KCALS, 51G PROTEIN DISCUSSED WITH PHARMACY AND MD RODNEY GERMAIN NEEDED Original Note: F/U PT IS DAY 4 NPO PATTERNATOR UNABLE TO PERFORM EVAL; ATTEMPTED X 2 YESTERDAY IF DIET TO ADVANCE; RECOMMEND 1500 DM DIET IF PO POOR; WILL ADD SUPPLEMENTS CONSULT RD IF PPN NEEDED
--- NOTE | 2021-12-20 10:56 | PC.NURSE ---
Skin/Wound assessment completed today. Pressure injury to right hip is healed, some lightly peeling skin to buttocks but no open areas. She has scabbing to left knee. Patient's skin is intact no open areas seen. EPC cream applied to buttocks for protection.
[2021-12-20 11:03] LABS: Glucose, Whole Blood 137 mg/dL (60-115)
[2021-12-20 11:26] VITALS: BP 108/64; PULSE 95; RESP 18; TEMP 37; O2SAT 98
--- NOTE | 2021-12-20 12:02 | MHC.SLORD ---
Speech Language Pathology Order Status: Attempted BSE again this a.m. Pt is non-verbal, does not respond to directions, has episodic dystonic posturing, and constant tremor. Pt did not open mouth to presentations of oral care, liquid and puree. Pt did lick trace amounts of puree put on lips and initiated swallow X 2. Unable to adequately assess to recommend safest diet at this time. Recommend continue NPO, w/recommendation sent to MD, Parking Lot Attendant And Cashier via secure text.
[2021-12-20 12:04] LABS: Albumin Level 3.6 g/dL (3.5-5.0); Magnesium 1.9 mg/dL (1.6-2.6); Phosphorus 3.7 mg/dL (2.7-4.5)
[2021-12-20 12:56] LABS: Pneumocystis jir Ql PCR NOT DETECTED
[2021-12-20 15:33] VITALS: BP 136/84; PULSE 120; RESP 18; TEMP 36.6; O2SAT 97
[2021-12-20 16:20] LABS: Glucose, Whole Blood 158 mg/dL (60-115)
[2021-12-20 19:41] VITALS: BP 115/80; PULSE 110; RESP 16; TEMP 36.6; O2SAT 95
[2021-12-20 20:40] LABS: Glucose, Whole Blood 186 mg/dL (60-115)
[2021-12-21] VITALS (7 sets, daily range): BP systolic 128–149; BP diastolic 83–94; PULSE 110–118; RESP 18–20; TEMP 35.4–36.8; O2SAT 92–97; BMI 43.0
[2021-12-21 06:53] LABS: Hematocrit 39.4 % (37.0-47.0); Hemoglobin 12.6 g/dl (12.0-16.0); Mean Corpuscular Hemoglobin 28.6 pg (27.0-33.0); Mean Corpuscular Volume 89.3 fL (80.0-98.0); Mean Platelet Volume 10.1 fL (9.4-12.3); Platelet Count 298 X10*3/uL (160-400); Red Blood Count 4.41 X10*6/uL (4.20-5.50); Red Cell Distribution Width 18.1 % (11.0-16.0); White Blood Count 5.7 X10*3/uL (4.8-10.8)
[2021-12-21 07:12] LABS: Anion Gap 14 (12-20); Blood Urea Nitrogen 14 mg/dL (9-16); Calcium 9.7 mg/dL (8.4-10.2); Carbon Dioxide 20 mmol/L (22-29); Chloride 107 mmol/L (96-108); Creatinine Clr Calc Pharmacy 108.3; Estimated Glomerular Filt Rate > 60; Glucose Fasting 188 mg/dL (60-99); Sodium 137 mmol/L (135-145)
[2021-12-21 07:35] LABS: Glucose, Whole Blood 164 mg/dL (60-115)
[2021-12-21] MEDS: Enoxaparin Sodium 40 MG/0.4 ML SYRINGE SUBCUT (08:38)
[2021-12-21] MEDS: Insulin Lispro 100 UNIT/ML 3 ML VIAL SUBCUT ×4 (08:38→22:31)
[2021-12-21] MEDS: Levothyroxine Sodium 100 MCG/5 ML VIAL 37.5 MCG IVPUSH (08:39)
[2021-12-21] MEDS: 0.9 % Sodium Chloride Flush 3 ML SYRINGE IVFLUSH ×2 (08:39→17:14)
[2021-12-21 09:46] LABS: Magnesium 2.2 mg/dL (1.6-2.6); Triglycerides 342 mg/dL
[2021-12-21 11:12] LABS: Glucose, Whole Blood 193 mg/dL (60-115)
--- NOTE | 2021-12-21 11:24 | MHC.CM.PN ---
Per ROUNDS discussion, Patient is not yet medically cleared for dc (PPN, IV Synthroid, IV Ativan yesterday); Home resume services is the goal for dc and CM will continue to follow for possible need to adjust the dc plan.
[2021-12-21 12:17] LABS: COVID-19 Test Negative (Negative)
--- NOTE | 2021-12-21 12:20 | HO.PM.IMPN ---
Subjective Subjective Date of Service: 12/21/21 Interval History: the patient was seen and evaluated this morning Laying in bed, open eyes and response to calling her name Not following commands Move her extremities, nonverbal No reported other overnight events. Systemic review: Unable to provide any meaningful answers, nonverbal Physical Exam Vital Signs: Vital Signs: Last Vital Signs Temp 97.1 F 12/21/21 10:55 Pulse 110 H 12/21/21 10:55 Resp 18 12/21/21 10:55 BP 142/92 H 12/21/21 10:55 Pulse Ox 97 12/21/21 10:55 Oxygen Flow Rate 4 11/29/21 11:52 BMI result Body Mass Index 43.0 Const: Other: General - alert with verbal stimulation appears anxious and disoriented not in respiratory distress Cardiovascular - S1S2, tachycardic Lungs - no distress, chest wall moving common Abdomen - soft, non-tender, no rebound or guarding Skin, dry, no erythema or drainage noted Extremities - no edema bilaterally Neuro - awake and alert with verbal stimulation, move all extremities, bilateral lower extremity weakness, nonverbal Objective Data Active Medications Enoxaparin Sodium (Enoxaparin Sodium 40 Mg/0.4 Ml Syringe) 40 mg SUBCUT Q24H [facility] Last Admin: 12/21/21 08:38 Dose: 40 mg Documented by: HARSHIL Multivitamins 10 ml/ Trace Metals 1 ml/ Amino Acids/Electrolytes/Dextrose 1,200 mls @ 50 mls/hr IV DAILY@1800 [facility] Stop: 12/21/21 17:59 Last Admin: 12/20/21 18:00 Dose: 50 mls/hr Documented by: ERASMO Amino Acids/Electrolytes/Dextrose (Clinimix E 4.25%-10%) 1,680 mls @ 70 mls/hr IV DAILY@1800 [facility] Insulin Human Lispro (Insulin Lispro 100 Unit/Ml 3 Ml Vial) 0 unit SUBCUT QIDACHS [facility]; Protocol Last Admin: 12/21/21 11:36 Dose: 2 unit Documented by: HARSHIL Levothyroxine Sodium (Levothyroxine Sodium 100 Mcg/5 Ml Vial) 37.5 mcg IVPUSH DAILY [facility] Last Admin: 12/21/21 08:39 Dose: 37.5 mcg Documented by: HARSHIL Lorazepam (Lorazepam 2 Mg/Ml Vial) 0.5 mg IVPUSH Q4H PRN PRN Reason: Anxiety Last Admin: 12/20/21 08:19 Dose: 0.5 mg Documented by: ERASMO Oxcarbazepine (Oxcarbazepine 150 Mg Tablet) 450 mg PO BID [facility] Last Admin: 12/21/21 11:35 Dose: Not Given Documented by: HARSHIL Non-Admin Reason: NPO Pharmacy Consult (Consult Rx Perform Med Rec) 1 each MISCELLANE ONCE PRN PRN Reason: Consult order Pregabalin (Pregabalin 50 Mg Capsule) 50 mg PO BID [facility] Quetiapine Fumarate (Quetiapine Fumarate 200 Mg Tablet) 200 mg PO BEDTIME [facility] Sodium Chloride (0.9 % Sodium Chloride Flush 3 Ml Syringe) 3 ml IVFLUSH QSHIFT [facility] Last Admin: 12/21/21 08:39 Dose: 3 ml Documented by: HARSHIL Labs CBC & Chem 7: 12/21/21 06:13 12/21/21 06:13 Labs: Laboratory Results - last 24 hr 12/14/21 12/20/21 12/20/21 10:34 16:11 20:34 MCV MCH MCHC RDW Plt Count MPV Absolute Nucleated RBC Nucleated RBC % (auto) Anion Gap Estim Creat Clear Calc Estimated GFR POC Glucose 158 H 186 H Fasting Glucose Calcium Phosphorus Magnesium Triglycerides COVID-19 ([facility]) COVID-19 Clin Com Pneumocystis Source Pneumocyst jiroveci PCR NOT DETECTED 12/21/21 12/21/21 12/21/21 06:13 06:13 07:12 MCV 89.3 MCH 28.6 MCHC 32.0 RDW 18.1 H Plt Count 298 MPV 10.1 Absolute Nucleated RBC 0.000 Nucleated RBC % (auto) 0.0 Anion Gap 14 Estim Creat Clear Calc 108.3 Estimated GFR > 60 POC Glucose 164 H Fasting Glucose 188 H Calcium 9.7 Phosphorus 4.0 Magnesium 2.2 Triglycerides 342 COVID-19 (NATASHA) COVID-19 Clin Com Pneumocystis Source Pneumocyst jiroveci PCR 12/21/21 12/21/21 10:57 11:29 MCV MCH MCHC RDW Plt Count MPV Absolute Nucleated RBC Nucleated RBC % (auto) Anion Gap Estim Creat Clear Calc Estimated GFR POC Glucose 193 H Fasting Glucose Calcium Phosphorus Magnesium Triglycerides COVID-19 (NATASHA) Negative COVID-19 Clin Com See Note Pneumocystis Source Pneumocyst jiroveci PCR Assessment and Plan (1) Hypogammaglobulinemia: Status: Acute (2) Suppression of immune system subtherapeutic: Status: Acute (3) Encephalopathy, metabolic: Status: Acute Plan 31-year-old type 2 diabetic morbidly obese female with a background of bipolar disorder and has autoimmune, IGA deficiecny, encephalitis and peripheral polyneuropathy for which she gets monthly IV IG and once yearly rituximab, was admitted for acute hypoxic respiratory failure due to covid, course was complciated by progressive AMS and agitation requiring intubation and ICU stay. extensive work up including EEG and LP did not revela specific diagnosis. she was eventually extubated after diuresis and dexmedetomide. she is now on room air, responding to commands, but not talking acute hypoxic respiratory failure due to covid pneumonia appears resolved keep on airborne isolation due to immunocompromised state pcr still positive, antibody negative metabolic encephalopathy and agitated delerium improved, but still nonverbal differential includes seizure, covid encephalitis, MIS-A, neuro appreciated, check MRI and EEG EEG was not done as the patient was resisting the procedure MRI repeated, no acute findings Recurrent treated erection dysphagia SINGE MACHINE OPERATOR follow up, keep NPO for now Continue PPN for the time being Nutritional consult Agitated delirium Not taking her psychiatry medications Get psychiatry team evaluation for medication advice DM insulin CRISPIN resolved hypernatremia resolved dvt prophylaxis lovenox Quality Stroke Does the patient have a stroke diagnosis?: No VTE Prior VTE?: No VTE Risk Level:: Medical - moderate - high VTE Device Contraindication: Treatment Not Indicated VTE Drug Contraindication: N/A - Med Ordered
--- NOTE | 2021-12-21 12:38 | MHC.CLN ---
F/U RECOMMEND INCREASING PPN D10 AA4.25 AT 70ML/HR TO PROVIDE 857KCALS, 71G PROTEIN (1.2G/KG) DISCUSSED WITH PHARMACY AND MD HOLDING LIPIDS FOR TODAY R/T ELEVATED TRIG LEVEL REPLETE LYTES NEEDED
--- NOTE | 2021-12-21 13:14 | MHC.SLORD ---
Speech Language Pathology Order Status: EXPERIMENTAL ASSEMBLER attempted to see patient for bedside dysphagia evaluation (3rd attempt). Patient awake, laying in bed, eyes open. EXPERIMENTAL ASSEMBLER repositioned patient to sit upright. Patient responded to change in position by swinging arms. Patient did not follow commands or answer questions. EXPERIMENTAL ASSEMBLER attempted to give patient food and liquid by teaspoon, straw, cup- Patient would not open mouth despite cues and encouragement. Trace amount of applesauce from spoon remained on lips, which patient cleared with lingual sweep and triggered swallow. Unable to complete evaluation. , RD, RN notified.
[2021-12-21 16:03] LABS: Glucose, Whole Blood 177 mg/dL (60-115)
--- NOTE | 2021-12-21 16:16 | PC.NURSE ---
1600 F/C removed. Purewick on DTV by 2200
[2021-12-21 19:56] LABS: Glucose, Whole Blood 191 mg/dL (60-115)
[2021-12-22] MEDS: 0.9 % Sodium Chloride Flush 3 ML SYRINGE IVFLUSH ×2 (00:38→09:50)
[2021-12-22 03:01] VITALS: BP 112/81; PULSE 116; RESP 19; TEMP 36.2; O2SAT 98
--- NOTE | 2021-12-22 06:53 | PC.NURSE ---
Patient never voided overnight. Bladder scan at [address] Mcconnell notified, order for straight cath. Pt tolerated procedure well, straight cath drained for 500mL dark yellow urine.
[2021-12-22 07:04] LABS: VBG Base Excess -3.5 mmol/L; VBG HCO3 20 mmol/L (22-26); VBG pCO2 32 mmHg; VBG pH 7.39 (7.32-7.43); VBG pO2 66 mmHg
[2021-12-22 07:07] LABS: Prothrombin Time 11.8 SEC (9.9-13.0)
[2021-12-22 07:08] LABS: Ammonia 31 umol/L (13-55); Venous Blood Gas Refer to POC result
[2021-12-22 07:15] VITALS: BP 126/84; PULSE 114; RESP 20; TEMP 36.7; O2SAT 97
[2021-12-22 07:24] LABS: Glucose, Whole Blood 218 mg/dL (60-115)
[2021-12-22 07:35] LABS: Anion Gap 11 (12-20); Blood Urea Nitrogen 19 mg/dL (9-16); Calcium 9.6 mg/dL (8.4-10.2); Carbon Dioxide 22 mmol/L (22-29); Chloride 105 mmol/L (96-108); Creatinine Clr Calc Pharmacy 114.3; Estimated Glomerular Filt Rate > 60; Glucose Random 224 mg/dL (60-115); Sodium 134 mmol/L (135-145)
[2021-12-22 07:36] LABS: Alanine Aminotransferase 49 U/L (0-31); Albumin Level 3.7 g/dL (3.5-5.0); Alkaline Phosphatase 81 U/L (39-117); Aspartate Amino Transferase 35 U/L (5-31); Bilirubin Direct 0.3 mg/dL (0.0-0.5); Bilirubin Total 0.5 mg/dL (0.0-1.0); C Reactive Protein 0.38 mg/dL (< or = 0.50)
--- NOTE | 2021-12-22 09:14 | PM.NEUROPN ---
Subjective Subjective Date of Service: 12/22/21 Critical Care Time (minutes): 45 Comment: 31 years old woman with encephalopathy of unknown etiology with suspicion of either seizure disorder or COVID encephalopathy. Unfortunately an EEG could not be done as acute she kept on moving and commercial tire service technician could not put the leads. Physical Exam Vital Signs: Vital Signs: Last Vital Signs Temp 98.1 F 12/22/21 07:15 Pulse 114 H 12/22/21 07:15 Resp 20 12/22/21 07:15 BP 126/84 12/22/21 07:15 Pulse Ox 97 12/22/21 07:15 Oxygen Flow Rate 4 11/29/21 11:52 BMI result Body Mass Index 43.0 Neuro: Other: I saw her this morning again when she had her eyes open. She made eye contact but it was not meaningful like she was staring in space. She had repetitive rhythmic shaking of left hand and left side of the face which was intermittent. Right side was okay. Plantars were flexors. Deep tendon reflexes were absent. There was no gaze deviation or eye jerking. Objective Data Labs CBC & Chem 7: 01/05/22 06:00 01/05/22 06:00 Labs: Laboratory Results - last 24 hr 12/21/21 12/21/21 12/21/21 06:13 10:57 11:29 PT INR VBG pH VBG pCO2 VBG pO2 VBG HCO3 VBG O2 Saturation VBG Base Excess Sodium Potassium Chloride Carbon Dioxide Anion Gap BUN Creatinine Estim Creat Clear Calc Estimated GFR POC Glucose 193 H Random Glucose Calcium Phosphorus 4.0 Magnesium 2.2 Total Bilirubin Direct Bilirubin AST ALT Alkaline Phosphatase Ammonia C-Reactive Protein Total Protein Albumin Triglycerides 342 COVID-19 (NATASHA) Negative COVID-19 Clin Com See Note 12/21/21 12/21/21 12/22/21 15:59 19:51 06:51 PT INR VBG pH VBG pCO2 VBG pO2 VBG HCO3 VBG O2 Saturation VBG Base Excess Sodium 134 L Potassium 4.0 Chloride 105 Carbon Dioxide 22 Anion Gap 11 L BUN 19 H Creatinine 0.72 Estim Creat Clear Calc 114.3 Estimated GFR > 60 POC Glucose 177 H 191 H Random Glucose 224 H Calcium 9.6 Phosphorus Magnesium Total Bilirubin Direct Bilirubin AST ALT Alkaline Phosphatase Ammonia C-Reactive Protein Total Protein Albumin Triglycerides COVID-19 ([facility]AS[facility]) COVID-19 Clin Com 12/22/21 12/22/21 12/22/21 06:51 06:51 06:51 PT 11.8 INR 1.0 VBG pH VBG pCO2 VBG pO2 VBG HCO3 VBG O2 Saturation VBG Base Excess Sodium Potassium Chloride Carbon Dioxide Anion Gap BUN Creatinine Estim Creat Clear Calc Estimated GFR POC Glucose Random Glucose Calcium Phosphorus Magnesium Total Bilirubin 0.5 Direct Bilirubin 0.3 AST 35 H ALT 49 H Alkaline Phosphatase 81 Ammonia 31 C-Reactive Protein 0.38 Total Protein 8.0 Albumin 3.7 Triglycerides COVID-19 ([facility]ASHA) COVID-19 Clin Com 12/22/21 12/22/21 06:59 07:19 PT INR VBG pH 7.39 VBG pCO2 32 VBG pO2 66 VBG HCO3 20 L VBG O2 Saturation 90.0 VBG Base Excess -3.5 Sodium Potassium Chloride Carbon Dioxide Anion Gap BUN Creatinine Estim Creat Clear Calc Estimated GFR POC Glucose 218 H Random Glucose Calcium Phosphorus Magnesium Total Bilirubin Direct Bilirubin AST ALT Alkaline Phosphatase Ammonia C-Reactive Protein Total Protein Albumin Triglycerides COVID-19 (NATASHA) COVID-19 Clin Com Microbiology Microbiology Results: Microbiology 12/14/21 10:32 Bronchial Washings Nocardia Culture - Preliminary 12/16/21 13:04 Sputum - Suctioned Gram Stain - Final 12/16/21 13:04 Sputum - Suctioned Sputum Culture - Final 12/10/21 23:34 Spine Direct Acid Fast Bacilli Smear - Final 12/10/21 23:34 Spine Acid Fast Bacilli Culture & Smear - Preliminary 12/14/21 10:33 Bronchial Washings Gram Stain - Final 12/14/21 10:33 Bronchial Washings Routine Culture - Final 12/10/21 11:53 Blood - Subclavian Blood Culture - Final No growth after 5 days. 12/10/21 11:53 Blood - Subclavian Blood Culture - Final No growth after 5 days. 12/12/21 15:40 Sputum - Suctioned Gram Stain - Final 12/12/21 15:40 Sputum - Suctioned Sputum Culture - Final 12/10/21 23:34 Cerebrospinal Fluid Gram Stain - Final 12/10/21 23:34 Cerebrospinal Fluid CSF Examination - Final 12/10/21 23:34 Cerebrospinal Fluid Fluid Description - Final 12/10/21 23:34 Cerebrospinal Fluid CSF Culture - Final No growth after 3 days. 12/10/21 Unknown Urine Catheterized - Kern Catheter Urine Culture - Final 12/04/21 11:43 Blood - Venous Blood Culture - Final No growth after 5 days. 12/04/21 11:43 Blood - Venous Blood Culture - Final No growth after 5 days. 11/29/21 14:01 Blood - Venous Blood Culture - Final No growth after 5 days. 11/29/21 13:51 Blood - Venous Blood Culture - Final No growth after 5 days. 11/29/21 Unknown Urine clean catch - Urine ohara top Urine Culture - Final Progress Note: A&P Assessment and plan (1) Encephalopathy: Status: Resolved Assessment and Plan: 31 years old woman with encephalopathy of unknown etiology with suspicion of partial status epilepticus versus COVID encephalopathy versus psychiatric illness. Unfortunately EEG could not be done. Her examination this morning was somewhat more suggestive of seizure disorder. This is despite she is on relatively high dose of oxcarbazepine and also taking pregabalin. Oxcarbazepine probably has been given for behavioral reasons. Under the circumstances, I recommend discontinuing Wellbutrin and giving her a bolus of levetiracetam 1000 mg and then continuing 500 mg twice a day for a day or 2 to see the clinical response. Fall Risk Details Current Medications: Current Medications Enoxaparin Sodium (Enoxaparin Sodium 40 Mg/0.4 Ml Syringe) 40 mg SUBCUT Q24H [facility] Last Admin: 12/21/21 08:38 Dose: 40 mg Documented by: Amino Acids/Electrolytes/Dextrose (Clinimix E 4.25%-10%) 1,680 mls @ 70 mls/hr IV DAILY@1800 [facility] Last Admin: 12/21/21 18:31 Dose: 70 mls/hr Documented by: Insulin Human Lispro (Insulin Lispro 100 Unit/Ml 3 Ml Vial) 0 unit SUBCUT QIDACHS [facility]; Protocol Last Admin: 12/21/21 22:31 Dose: 2 unit Documented by: Levothyroxine Sodium (Levothyroxine Sodium 100 Mcg/5 Ml Vial) 37.5 mcg IVPUSH DAILY [facility] Last Admin: 12/21/21 08:39 Dose: 37.5 mcg Documented by: Lorazepam (Lorazepam 2 Mg/Ml Vial) 0.5 mg IVPUSH Q4H PRN PRN Reason: Anxiety Last Admin: 12/20/21 08:19 Dose: 0.5 mg Documented by: Oxcarbazepine (Oxcarbazepine 150 Mg Tablet) 450 mg PO BID [facility] Last Admin: 12/21/21 22:31 Dose: Not Given Documented by: Pharmacy Consult (Consult Rx Perform Med Rec) 1 each MISCELLANE ONCE PRN PRN Reason: Consult order Pregabalin (Pregabalin 50 Mg Capsule) 50 mg PO BID [facility] Last Admin: 12/21/21 22:31 Dose: Not Given Documented by: Quetiapine Fumarate (Quetiapine Fumarate 200 Mg Tablet) 200 mg PO BEDTIME [facility] Last Admin: 12/21/21 22:31 Dose: Not Given Documented by: Sodium Chloride (0.9 % Sodium Chloride Flush 3 Ml Syringe) 3 ml IVFLUSH QSHIFT [facility] Last Admin: 12/22/21 00:38 Dose: 3 ml Documented by: Time Spent With Patient Time: Total time spent is greater than 50% in coordination of care (as documented) at patient's floor/unit and/or counseling patient: Time with patient: 25 - 35 minutes Procedures Date of Service Date of Service: 12/22/21 Quality Stroke Does the patient have a stroke diagnosis?: No VTE Prior VTE?: No VTE Risk Level:: Medical - moderate - high VTE Device Contraindication: Treatment Not Indicated VTE Drug Contraindication: N/A - Med Ordered
--- NOTE | 2021-12-22 09:21 | P.CNNE_ITS ---
History of Present Illness Data of Consult Service Date: 12/22/21 Primary Care Provider: Lachelle Guerra MD [facility] Reason for consult: Encephalopathy 31 years old woman with done supple apathy of unknown etiology with suspicion of epilepsy versus COVID encephalopathy versus psychiatric illness she was unable to provide any history Review of Systems Review of Systems: Could not be done with [facility] Past Medical History Medical History (Updated 12/19/21 @ 15:55 by Doreen Torres MD) Acquired hypothyroidism Bipolar disorder Blurred vision, bilateral Clinical decompensation Diabetes mellitus with hyperglycemia Elevated vitamin B12 level Esophagitis with gastritis Essential hypertension Gait instability Gastric paresis Hx of Escherichia coli septicemia Hyperlipidemia Hypogammaglobulinemia Muscle weakness Obesity, morbid, BMI 40.0-49.9 Peripheral neuropathy Suppression of immune system subtherapeutic Vitamin D deficiency Family History Family History Other Adopted Family history: reviewed and not pertinent Surgical History Surgical History Hx of section Hx of tooth extraction Social History Social History Household Members: Adopted Family Housing: Unknown / Unable to assess Alcohol intake: never Patient Tobacco Use Status: Former Tobacco user Second Hand Smoke Exposure: No service: No Current occupational status: disabled Gender identity: Female Meds Allergies Allergy/AdvReac Type Severity Reaction Status Date / Time latex Allergy Unknown rash Verified 11/14/21 00:57 metoclopramide [From REGLAN] AdvReac Unknown INTERACTS Verified 11/14/21 00:57 W/ SEROQUEL Active Medications: Current Medications Enoxaparin Sodium (Enoxaparin Sodium 40 Mg/0.4 Ml Syringe) 40 mg SUBCUT Q24H [facility] Last Admin: 12/21/21 08:38 Dose: 40 mg Documented by: Amino Acids/Electrolytes/Dextrose (Clinimix E 4.25%-10%) 1,680 mls @ 70 mls/hr IV DAILY@1800 [facility] Last Admin: 12/21/21 18:31 Dose: 70 mls/hr Documented by: Insulin Human Lispro (Insulin Lispro 100 Unit/Ml 3 Ml Vial) 0 unit SUBCUT QIDACHS [facility]; Protocol Last Admin: 12/21/21 22:31 Dose: 2 unit Documented by: Levothyroxine Sodium (Levothyroxine Sodium 100 Mcg/5 Ml Vial) 37.5 mcg IVPUSH DAILY [facility] Last Admin: 12/21/21 08:39 Dose: 37.5 mcg Documented by: Lorazepam (Lorazepam 2 Mg/Ml Vial) 0.5 mg IVPUSH Q4H PRN PRN Reason: Anxiety Last Admin: 12/20/21 08:19 Dose: 0.5 mg Documented by: Oxcarbazepine (Oxcarbazepine 150 Mg Tablet) 450 mg PO BID [facility] Last Admin: 12/21/21 22:31 Dose: Not Given Documented by: Pharmacy Consult (Consult Rx Perform Med Rec) 1 each MISCELLANE ONCE PRN PRN Reason: Consult order Pregabalin (Pregabalin 50 Mg Capsule) 50 mg PO BID [facility] Last Admin: 12/21/21 22:31 Dose: Not Given Documented by: Quetiapine Fumarate (Quetiapine Fumarate 200 Mg Tablet) 200 mg PO BEDTIME [facility] Last Admin: 12/21/21 22:31 Dose: Not Given Documented by: Sodium Chloride (0.9 % Sodium Chloride Flush 3 Ml Syringe) 3 ml IVFLUSH QSHIFT [facility] Last Admin: 12/22/21 00:38 Dose: 3 ml Documented by: Home Medications Medication Instructions Recorded Confirmed Last Taken Type bupropion HCl 100 mg tablet,12 hr 100 mg PO QAM 11/30/20 11/29/21 11/28/21 History sustained-release trazodone 100 mg tablet 100 mg PO BEDTIME 11/30/20 11/29/21 11/28/21 History cranberry 400 mg capsule 450 mg PO DAILY cap 03/22/21 11/29/21 11/28/21 History melatonin 3 mg tablet 6 mg PO DAILY 03/22/21 11/29/21 11/28/21 History multivitamin 1 tab PO DAILY 03/22/21 11/29/21 11/28/21 History pregabalin 300 mg capsule 300 mg PO BID cap 05/10/21 11/29/21 11/28/21 History rituximab 10 mg/mL 10 mg IV [id number] 08/11/21 11/29/21 Unknown History concentrate,intravenous oxcarbazepine 150 mg tablet 450 mg PO BID tab 1011/29/21 11/28/21 History cholecalciferol (vitamin D3) 1,250 1,250 mcg PO MO 10/16/21 11/29/21 11/28/21 History mcg (50,000 unit) capsule chlorhexidine gluconate 0.12 % 15 ml PO BID 11/29/21 11/29/21 11/28/21 History mouthwash quetiapine 200 mg tablet 1 tab PO BEDTIME 11/29/21 11/29/21 11/28/21 History quetiapine 400 mg tablet 1 tab PO BEDTIME 11/29/21 11/29/21 11/28/21 History immun glob G 10 gram/100 450 ml SUBCUT Q4W 12/14/21 12/14/21 10/26/21 History mL(10%)-gly-IgA ov50 mcg/mL subcutaneous soln immun glob G 10 gram/100 500 ml SUBCUT Q4W 12/14/21 12/14/21 10/25/21 History mL(10%)-gly-IgA ov50 mcg/mL subcutaneous soln Physical Exam Vital Signs: Vital Signs: Last Vital Signs Temp 98.1 F 12/22/21 07:15 Pulse 114 H 12/22/21 07:15 Resp 20 12/22/21 07:15 BP 126/84 12/22/21 07:15 Pulse Ox 97 12/22/21 07:15 Oxygen Flow Rate 4 11/29/21 11:52 BMI result Body Mass Index 43.0 Neuro: Other: She was alert and awake looking around but did not make an eye contact. There was rhythmic jerking of left-sided face and hand, which was intermittent. Plantars were flat. Deep tendon reflexes were absent. She did not respond to verbal commands. Results Labs CBC & Chem 7: 12/21/21 06:13 12/22/21 06:51 Labs: BMP 12/22/21 06:51 Sodium 134 L Potassium 4.0 Chloride 105 Carbon Dioxide 22 BUN 19 H Creatinine 0.72 Calcium 9.6 Liver Function 12/22/21 Range/Units 06:51 Total Bilirubin 0.5 (0.0-1.0) mg/dL Direct Bilirubin 0.3 (0.0-0.5) mg/dL AST 35 H (5-31) U/L ALT 49 H (0-31) U/L Alkaline Phosphatase 81 (39-117) U/L Albumin 3.7 (3.5-5.0) g/dL EEG could not be done as orthophotography technician could not put leads on her head as she kept on moving Microbiology Microbiology Results: Microbiology 12/14/21 10:32 Bronchial Washings Nocardia Culture - Preliminary 12/16/21 13:04 Sputum - Suctioned Gram Stain - Final 12/16/21 13:04 Sputum - Suctioned Sputum Culture - Final 12/10/21 23:34 Spine Direct Acid Fast Bacilli Smear - Final 12/10/21 23:34 Spine Acid Fast Bacilli Culture & Smear - Preliminary 12/14/21 10:33 Bronchial Washings Gram Stain - Final 12/14/21 10:33 Bronchial Washings Routine Culture - Final 12/10/21 11:53 Blood - Subclavian Blood Culture - Final No growth after 5 days. 12/10/21 11:53 Blood - Subclavian Blood Culture - Final No growth after 5 days. 12/12/21 15:40 Sputum - Suctioned Gram Stain - Final 12/12/21 15:40 Sputum - Suctioned Sputum Culture - Final 12/10/21 23:34 Cerebrospinal Fluid Gram Stain - Final 12/10/21 23:34 Cerebrospinal Fluid CSF Examination - Final 12/10/21 23:34 Cerebrospinal Fluid Fluid Description - Final 12/10/21 23:34 Cerebrospinal Fluid CSF Culture - Final No growth after 3 days. 12/10/21 Unknown Urine Catheterized - Kern Catheter Urine Culture - Final 12/04/21 11:43 Blood - Venous Blood Culture - Final No growth after 5 days. 12/04/21 11:43 Blood - Venous Blood Culture - Final No growth after 5 days. 11/29/21 14:01 Blood - Venous Blood Culture - Final No growth after 5 days. 11/29/21 13:51 Blood - Venous Blood Culture - Final No growth after 5 days. 11/29/21 Unknown Urine clean catch - Urine ohara top Urine Culture - Final Assessment and Plan (1) Encephalopathy: Status: Acute 31 years old woman with encephalopathy of unknown etiology. Seizure disorder was not possible to rule out and she has clinical signs of it. I would recommend treating her with Keppra 1000 mg bolus and then 500 mg twice a day to see clinical response. I would also recommend discontinuing Wellbutrin. Procedures Date of Service Date of Service: 12/22/21
[2021-12-22] MEDS: Insulin Lispro 100 UNIT/ML 3 ML VIAL SUBCUT ×3 (09:50→20:25)
[2021-12-22] MEDS: Levothyroxine Sodium 100 MCG/5 ML VIAL 37.5 MCG IVPUSH (09:51)
[2021-12-22] MEDS: Enoxaparin Sodium 40 MG/0.4 ML SYRINGE SUBCUT (09:51)
[2021-12-22 09:52] LABS: Magnesium 2.2 mg/dL (1.6-2.6); Phosphorus 3.8 mg/dL (2.7-4.5)
[2021-12-22 10:53] LABS: Triglycerides 376 mg/dL
--- NOTE | 2021-12-22 11:04 | P.PNIM_ITS ---
Subjective Subjective Date of Service: 12/22/21 Interval History: the patient was seen and evaluated this morning Laying in bed, open eyes and response to calling her name but not following commands Refusing to eat or drink Move her extremities, nonverbal No reported other overnight events. Systemic review: Unable to provide any meaningful answers, nonverbal Physical Exam Vital Signs: Vital Signs: Last Vital Signs Temp 98.1 F 12/22/21 07:15 Pulse 114 H 12/22/21 07:15 Resp 20 12/22/21 07:15 BP 126/84 12/22/21 07:15 Pulse Ox 97 12/22/21 07:15 Oxygen Flow Rate 4 11/29/21 11:52 BMI result Body Mass Index 43.0 Const: Other: General - alert with verbal stimulation appears mildly anxious and disoriented not in respiratory distress Cardiovascular - S1S2, tachycardic Lungs - no distress, chest wall moving , on room Abdomen - soft, non-tender, no rebound or guarding Skin, dry, no erythema or drainage noted Extremities - no edema bilaterally Neuro - awake and alert with verbal stimulation, move all extremities but not following commands, bilateral lower extremity weakness, nonverbal Objective Data Active Medications Enoxaparin Sodium (Enoxaparin Sodium 40 Mg/0.4 Ml Syringe) 40 mg SUBCUT Q24H [facility] Last Admin: 12/22/21 09:51 Dose: 40 mg Documented by: SARAH Amino Acids/Electrolytes/Dextrose (Clinimix E 4.25%-10%) 1,680 mls @ 70 mls/hr IV DAILY@1800 [facility] Last Admin: 12/21/21 18:31 Dose: 70 mls/hr Documented by: MARIPOSA Levetiracetam (Keppra) 500 mg in 100 mls @ 400 mls/hr IV Q12H [facility] Insulin Human Lispro (Insulin Lispro 100 Unit/Ml 3 Ml Vial) 0 unit SUBCUT QIDACHS [facility]; Protocol Last Admin: 12/22/21 09:50 Dose: 4 unit Documented by: SARAH Levothyroxine Sodium (Levothyroxine Sodium 100 Mcg/5 Ml Vial) 37.5 mcg IVPUSH DAILY [facility] Last Admin: 12/22/21 09:51 Dose: 37.5 mcg Documented by: SARAH Lorazepam (Lorazepam 2 Mg/Ml Vial) 0.5 mg IVPUSH Q4H PRN PRN Reason: Anxiety Last Admin: 12/20/21 08:19 Dose: 0.5 mg Documented by: ERASMO Pharmacy Consult (Consult Rx Perform Med Rec) 1 each MISCELLANE ONCE PRN PRN Reason: Consult order Quetiapine Fumarate (Quetiapine Fumarate 200 Mg Tablet) 200 mg PO BEDTIME [facility] Last Admin: 12/21/21 22:31 Dose: Not Given Documented by: MARIPOSA Non-Admin Reason: NPO Sodium Chloride (0.9 % Sodium Chloride Flush 3 Ml Syringe) 3 ml IVFLUSH QSHIFT [facility] Last Admin: 12/22/21 09:50 Dose: 3 ml Documented by: SARAH Labs CBC & Chem 7: 12/21/21 06:13 12/22/21 06:51 Labs: Laboratory Results - last 24 hr 12/21/21 12/21/21 12/21/21 10:57 11:29 15:59 PT INR VBG pH VBG pCO2 VBG pO2 VBG HCO3 VBG O2 Saturation VBG Base Excess Anion Gap Estim Creat Clear Calc Estimated GFR POC Glucose 193 H 177 H Random Glucose Calcium Phosphorus Magnesium Total Bilirubin Direct Bilirubin AST ALT Alkaline Phosphatase Ammonia C-Reactive Protein Total Protein Albumin Triglycerides COVID-19 (NATASHA) Negative [employer] See Note 12/21/21 12/22/21 12/22/21 19:51 06:51 06:51 PT 11.8 INR 1.0 VBG pH VBG pCO2 VBG pO2 VBG HCO3 VBG O2 Saturation VBG Base Excess Anion Gap 11 L Estim Creat Clear Calc 114.3 Estimated GFR > 60 POC Glucose 191 H Random Glucose 224 H Calcium 9.6 Phosphorus 3.8 Magnesium 2.2 Total Bilirubin Direct Bilirubin AST ALT Alkaline Phosphatase Ammonia C-Reactive Protein Total Protein Albumin Triglycerides 376 COVID-19 (NATASHA) COVID-[employer] 12/22/21 12/22/21 12/22/21 06:51 06:51 06:59 PT INR VBG pH 7.39 VBG pCO2 32 VBG pO2 66 VBG HCO3 20 L VBG O2 Saturation 90.0 VBG Base Excess -3.5 Anion Gap Estim Creat Clear Calc Estimated GFR POC Glucose Random Glucose Calcium Phosphorus Magnesium Total Bilirubin 0.5 Direct Bilirubin 0.3 AST 35 H ALT 49 H Alkaline Phosphatase 81 Ammonia 31 C-Reactive Protein 0.38 Total Protein 8.0 Albumin 3.7 Triglycerides COVID-19 (NATASHA) COVID-19 Clin Com 12/22/21 07:19 PT INR VBG pH VBG pCO2 VBG pO2 VBG HCO3 VBG O2 Saturation VBG Base Excess Anion Gap Estim Creat Clear Calc Estimated GFR POC Glucose 218 H Random Glucose Calcium Phosphorus Magnesium Total Bilirubin Direct Bilirubin AST ALT Alkaline Phosphatase Ammonia C-Reactive Protein Total Protein Albumin Triglycerides COVID-19 (NATASHA) COVID-19 Clin Com Assessment and Plan (1) Encephalopathy, metabolic: Status: Acute (2) Dysphagia: Status: Acute Plan 31-year-old type 2 diabetic morbidly obese female with a background of bipolar disorder and has autoimmune, IGA deficiecny, encephalitis and peripheral brittany yneuropathy for which she gets monthly IV IG and once yearly rituximab, was admitted for acute hypoxic respiratory failure due to covid, course was complciated by progressive AMS and agitation requiring intubation and ICU stay. extensive work up including EEG and LP did not revela specific diagnosis. she was eventually extubated after diuresis and dexmedetomide. she is now on room air, responding to commands, but not talking metabolic encephalopathy Could be secondary to agitated delerium, seizure disorder, COVID encephalitis improved, but still nonverbal neuro appreciated, start treatment for seizure with Keppra EEG was not done as the patient was resisting the procedure Load 1000 mg of Keppra and start 500 mg b.i.d. 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 Get psychiatry team evaluation for medication advice COVID-19 infection appears resolved, could still have COVID encephalitis keep on airborne isolation due to immunocompromised state DM insulin CRISPIN resolved hypernatremia resolved dvt prophylaxis lovenox Quality Stroke Does the patient have a stroke diagnosis?: No VTE Prior VTE?: No VTE Risk Level:: Medical - moderate - high VTE Device Contraindication: Treatment Not Indicated VTE Drug Contraindication: N/A - Med Ordered
[2021-12-22 11:06] VITALS: BP 105/84; PULSE 113; RESP 18; TEMP 36.7; O2SAT 98
[2021-12-22 11:19] LABS: Glucose, Whole Blood 242 mg/dL (60-115)
--- NOTE | 2021-12-22 11:42 | MHC.SLORD ---
Speech Language Pathology Order Status: Attempted to assess swallow this a.m. Pt continues to be non-verbal, not responsive to interaction or directions. Pt closed teeth and lips to presentations of liquid on swab, trace amounts of liquid by spoon (spilled from mouth). Pt again licked trace amount of puree put on lips and initiated swallow after clearing lips of trace amounts of food. Pt appeared mildly agitated at attempts to provide liquid food (facial perspiration noted). Unable to assess adequately to recommend diet. Recommend continue NPO, continue to re-assess Pt daily for increased responsiveness. Communicated to MD & Box Sorter via secure text.
--- NOTE | 2021-12-22 11:44 | MHC.CLN ---
F/U PT RECEIVING PPN D10 AA4.25 AT 70ML/HR TO PROVIDE 857KCALS, 71G PROTEIN (1.2G/KG) DISCUSSED WITH PHARMACY DELIVERY REP CONTINUES TO ATTEMPT TO WORK WITH PT TO DETERMINE SAFE FOOD CONSISTENCY, HOWEVER PT CONTINUES TO REFUSE HOLDING LIPIDS FOR TODAY R/T ELEVATED TRIG LEVEL REPLETE LYTES NEEDED CONSULT RD IF PEG TO BE PLACED
--- NOTE | 2021-12-22 11:57 | PM.EVENT ---
Event Note Date of Service: 12/22/21 Event Note: Consult for Psychiatry was received. Provider was contacted, this appears currently to be more as a medical issue rather than psychiatric. As she progresses, and is taking medications by mouth, we will assist with adding her psychiatric meds. Thank you.
[2021-12-22] MEDS: levETIRAcetam in NaCl (iso-os) 1,000 MG/100 ML PIGGYBACK 400 MG IV (12:28)
[2021-12-22 15:05] VITALS: BP 137/87; PULSE 111; RESP 20; TEMP 36.7; O2SAT 99
[2021-12-22 16:15] LABS: Glucose, Whole Blood 126 mg/dL (60-115)
[2021-12-22 19:05] VITALS: BP 119/86; PULSE 99; RESP 20; TEMP 36.7; O2SAT 99
[2021-12-22 19:53] LABS: Glucose, Whole Blood 225 mg/dL (60-115)
[2021-12-22] MEDS: levETIRAcetam in NaCl (iso-os) 500 MG/100 ML PIGGYBACK 400 MG IV (20:47)
[2021-12-22 23:53] VITALS: BP 109/75; PULSE 100; RESP 20; TEMP 36.4; O2SAT 97
--- NOTE | 2021-12-23 | EEG_ITS ---
Waking background activity consists of low voltage diffuse 3 to 4 hertz delta intermixed with muscle artifact. At times, the fastest frequencies that are noted are up to 6 hertz at low voltage. No paroxysmal features are identified. IMPRESSION: This is an abnormal electroencephalogram due to diffuse background slowing consistent with a diffuse encephalopathic process. No epileptiform discharges seen. MD KAYA Hinkle/BERNADETTE / [id number]
--- NOTE | 2021-12-23 02:13 | PC.NURSE ---
Pt has not voided. Bladder scan obtained showing 750cc's. Pt straight cathed with 650cc out. Pt repositioned. Will continue to monitor.
[2021-12-23 03:57] VITALS: BP 137/82; PULSE 123; RESP 20; TEMP 36.2; O2SAT 97
[2021-12-23 07:15] VITALS: BP 135/92; PULSE 113; RESP 18; TEMP 36.4; O2SAT 96
[2021-12-23 07:22] LABS: Glucose, Whole Blood 213 mg/dL (60-115)
[2021-12-23] MEDS: levETIRAcetam in NaCl (iso-os) 500 MG/100 ML PIGGYBACK 400 MG IV ×2 (07:58→22:08)
[2021-12-23] MEDS: Insulin Lispro 100 UNIT/ML 3 ML VIAL SUBCUT ×4 (07:58→22:07)
[2021-12-23] MEDS: Levothyroxine Sodium 100 MCG/5 ML VIAL 37.5 MCG IVPUSH (07:58)
[2021-12-23] MEDS: Enoxaparin Sodium 40 MG/0.4 ML SYRINGE SUBCUT (07:59)
[2021-12-23] MEDS: 0.9 % Sodium Chloride Flush 3 ML SYRINGE IVFLUSH ×2 (07:59→17:44)
[2021-12-23 08:59] LABS: Anion Gap 12 (12-20); Blood Urea Nitrogen 22 mg/dL (9-16); Calcium 9.5 mg/dL (8.4-10.2); Carbon Dioxide 23 mmol/L (22-29); Chloride 104 mmol/L (96-108); Creatinine Clr Calc Pharmacy 115.9; Estimated Glomerular Filt Rate > 60; Glucose Random 205 mg/dL (60-115); Potassium 4.2 mmol/L (3.3-5.1); Sodium 135 mmol/L (135-145)
[2021-12-23 09:33] LABS: Magnesium 2.2 mg/dL (1.6-2.6); Phosphorus 4.2 mg/dL (2.7-4.5)
--- NOTE | 2021-12-23 10:41 | MHC.CLN ---
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
[2021-12-23 11:05] VITALS: BP 120/74; PULSE 105; RESP 19; TEMP 36.4; O2SAT 97
--- NOTE | 2021-12-23 11:27 | MHC.SLORD ---
Speech Language Pathology Order Status: SENIOR COMMERCIAL LOAN OFFICER attempted bedside dysphagia evaluation this morning- Patient again refusing to accept any PO- unable to assess. Patient is currently NPO. Per chart review, patient responding to name, but not following directions and refusing to eat and drink. Patient is receiving PPN.
[2021-12-23] MEDS: Haloperidol Lactate 5 MG/ML VIAL 1 MG IVPUSH ×4 (11:39→22:07)
[2021-12-23 11:41] LABS: Glucose, Whole Blood 175 mg/dL (60-115)
--- NOTE | 2021-12-23 12:11 | P.PNIM_ITS ---
Subjective Subjective Date of Service: 12/23/21 Interval History: the patient was seen and evaluated this morning Laying in bed, no significant changes from yesterday open eyes and response to calling her name but not following commands Refusing to eat or drink Move her extremities mainly the upper nonverbal No reported other overnight events. Systemic review: Unable to provide any meaningful answers, nonverbal Physical Exam Vital Signs: Vital Signs: Last Vital Signs Temp 97.5 F 12/23/21 11:05 Pulse 105 H 12/23/21 11:05 Resp 19 12/23/21 11:05 BP 120/74 12/23/21 11:05 Pulse Ox 97 12/23/21 11:05 Oxygen Flow Rate 4 11/29/21 11:52 BMI result Body Mass Index 43.0 Const: Other: General - alert with verbal stimulation appears mildly anxious, having tremors mainly when she no someone is around Cardiovascular - S1S2, tachycardic Lungs - no distress, chest wall moving , on room Abdomen - soft, non-tender, no rebound or guarding Skin, dry, no erythema or drainage noted Extremities - no edema bilaterally Neuro - awake and alert with verbal stimulation, move all extremities but not following commands, bilateral lower extremity weakness, nonverbal Objective Data Active Medications Enoxaparin Sodium (Enoxaparin Sodium 40 Mg/0.4 Ml Syringe) 40 mg SUBCUT Q24H [facility] Last Admin: 12/23/21 07:59 Dose: 40 mg Documented by: HECTOR Haloperidol Lactate (Haloperidol Lactate 5 Mg/Ml Vial) 1 mg IVPUSH Q4H PRN PRN Reason: anxiety/restlessness Haloperidol Lactate (Haloperidol Lactate 5 Mg/Ml Vial) 1 mg IVPUSH Q6H [facility] Last Admin: 12/23/21 11:39 Dose: 1 mg Documented by: HECTOR Levetiracetam (Keppra) 500 mg in 100 mls @ 400 mls/hr IV Q12H [facility] Last Infusion: 12/23/21 08:26 Dose: 0 mls/hr Documented by: HECTOR Multivitamins 10 ml/ Trace Metals 1 ml/ Amino Acids/Electrolytes/Dextrose 1,680 mls @ 70 mls/hr IV DAILY@1800 [facility] Stop: 12/23/21 17:59 Last Admin: 12/22/21 18:34 Dose: 70 mls/hr Documented by: SARAH Amino Acids/Electrolytes/Dextrose (Clinimix E 4.25%-10%) 1,680 mls @ 70 mls/hr IV DAILY@1800 [facility] Stop: 12/24/21 17:59 Insulin Human Lispro (Insulin Lispro 100 Unit/Ml 3 Ml Vial) 0 unit SUBCUT QIDACHS [facility]; Protocol Last Admin: 12/23/21 07:58 Dose: 4 unit Documented by: HECTOR Levothyroxine Sodium (Levothyroxine Sodium 100 Mcg/5 Ml Vial) 37.5 mcg IVPUSH D AILY [facility] Last Admin: 12/23/21 07:58 Dose: 37.5 mcg Documented by: HECTOR Pharmacy Consult (Consult Rx Perform Med Rec) 1 each MISCELLANE ONCE PRN PRN Reason: Consult order Sodium Chloride (0.9 % Sodium Chloride Flush 3 Ml Syringe) 3 ml IVFLUSH QSHIFT [facility] Last Admin: 12/23/21 07:59 Dose: 3 ml Documented by: HECTOR Labs CBC & Chem 7: 12/21/21 06:13 12/23/21 07:45 Labs: Laboratory Results - last 24 hr 12/22/21 12/22/21 12/23/21 16:11 19:48 07:18 Anion Gap Estim Creat Clear Calc Estimated GFR POC Glucose 126 H 225 H 213 H Random Glucose Calcium Phosphorus Magnesium 12/23/21 12/23/21 07:45 11:08 Anion Gap 12 Estim Creat Clear Calc 115.9 Estimated GFR > 60 POC Glucose 175 H Random Glucose 205 H Calcium 9.5 Phosphorus 4.2 Magnesium 2.2 Assessment and Plan (1) Dysphagia: Status: Acute (2) Hypogammaglobulinemia: Status: Acute (3) Encephalopathy, metabolic: Status: Acute Plan 31-year-old type 2 diabetic morbidly obese female with a background of bipolar disorder and has autoimmune, IGA deficiecny, encephalitis and peripheral polyneuropathy for which she gets monthly IV IG and once yearly rituximab, was admitted for acute hypoxic respiratory failure due to covid, course was complciated by progressive AMS and agitation requiring intubation and ICU stay. extensive work up including EEG and LP did not revela specific diagnosis. she was eventually extubated after diuresis and dexmedetomide. she is now on room air, responding to commands, but not talking metabolic encephalopathy Could be secondary to agitated delerium, seizure disorder, COVID encephalitis MRI repeated, no acute findings improved, but still nonverbal neuro appreciated, continue treatment for seizure with Keppra Will try to do EEG Continue Keppra 500 b.i.d. 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 psychiatry team evaluation To start Haldol q.6 and p.r.n. after discussing with psychiatry team COVID-19 infection appears resolved, could still have COVID encephalitis keep on airborne isolation due to immunocompromised state DM insulin CRISPIN resolved hypernatremia resolved dvt prophylaxis lovenox Quality Stroke Does the patient have a stroke diagnosis?: No VTE Prior VTE?: No VTE Risk Level:: Medical - moderate - high VTE Device Contraindication: Treatment Not Indicated VTE Drug Contraindication: N/A - Med Ordered
[2021-12-23] MEDS: diphenhydrAMINE HCL 50 MG/ML VIAL 25 MG IVPUSH (13:59)
--- NOTE | 2021-12-23 14:49 | MHC.CM.PN ---
Female 31 DX Covid DP resume existing services [facility] as well as [facility] for IVIG. Per MD rounds patient is not ready for discharge.
[2021-12-23 15:00] VITALS: BP 157/87; PULSE 84; RESP 20; TEMP 36.7; O2SAT 99
[2021-12-23 16:05] LABS: Glucose, Whole Blood 202 mg/dL (60-115)
[2021-12-23 20:00] VITALS: BP 148/98; PULSE 128; RESP 18; TEMP 36.6; O2SAT 99
[2021-12-23 21:06] LABS: Glucose, Whole Blood 252 mg/dL (60-115)
[2021-12-24] VITALS (7 sets, daily range): BP systolic 114–159; BP diastolic 70–94; PULSE 90–115; RESP 18–20; TEMP 36.4–36.8; O2SAT 94–97
--- NOTE | 2021-12-24 | ECG_ITS ---
Test Reason : check QTC Blood Pressure : / mmHG Vent. Rate : 126 BPM Atrial Rate : 126 BPM P-R Int : 152 ms QRS Dur : 066 ms QT Int : 304 ms P-R-T Axes : 028 018 036 degrees QTc Int : 440 ms Poor data quality Sinus tachycardia Otherwise normal ECG When compared with ECG of 29-NOV-2021 14:02, No significant changes seen Referred By: Lore Fernandez Electronically Signed By:Mayank Meadows
[2021-12-24 01:22] LABS: Prolactin 8.6 ng/mL
[2021-12-24] MEDS: Haloperidol Lactate 5 MG/ML VIAL 1 MG IVPUSH ×3 (04:52→18:31)
[2021-12-24 07:35] LABS: Glucose, Whole Blood 211 mg/dL (60-115)
[2021-12-24 07:54] LABS: Anion Gap 15 (12-20); Blood Urea Nitrogen 22 mg/dL (9-16); Calcium 9.6 mg/dL (8.4-10.2); Carbon Dioxide 18 mmol/L (22-29); Chloride 106 mmol/L (96-108); Creatinine Clr Calc Pharmacy 115.9; Estimated Glomerular Filt Rate > 60; Glucose Random 224 mg/dL (60-115); Sodium 135 mmol/L (135-145)
[2021-12-24] MEDS: Insulin Lispro 100 UNIT/ML 3 ML VIAL SUBCUT ×4 (08:00→21:47)
[2021-12-24] MEDS: Enoxaparin Sodium 40 MG/0.4 ML SYRINGE SUBCUT (08:01)
[2021-12-24] MEDS: 0.9 % Sodium Chloride Flush 3 ML SYRINGE IVFLUSH ×3 (08:01→21:48)
[2021-12-24 08:46] LABS: Thyroid Stimulating Hormone 2.48 uIU/mL (0.32-4.0)
[2021-12-24 09:06] LABS: Albumin Level 3.9 g/dL (3.5-5.0); Phosphorus 4.2 mg/dL (2.7-4.5)
[2021-12-24] MEDS: levETIRAcetam in NaCl (iso-os) 500 MG/100 ML PIGGYBACK 400 MG IV (10:00)
[2021-12-24] MEDS: Levothyroxine Sodium 100 MCG/5 ML VIAL 37.5 MCG IVPUSH (10:00)
[2021-12-24] MEDS: 0.9 % Sodium Chloride 1,000 ML 500 ML IVCONT (11:03)
--- NOTE | 2021-12-24 11:10 | P.PNIM_ITS ---
Subjective Subjective Date of Service: 12/24/21 Interval History: the patient was seen and evaluated this morning Laying in bed, no significant changes from yesterday open eyes and response to calling her name but not following commands Refusing to eat or drink Move her extremities mainly the upper, nonverbal No reported other overnight events. Systemic review: Unable to provide any meaningful answers, nonverbal Physical Exam Vital Signs: Vital Signs: Last Vital Signs Temp 98.2 F 12/24/21 07:12 Pulse 112 H 12/24/21 07:12 Resp 18 12/24/21 07:12 BP 147/90 H 12/24/21 07:12 Pulse Ox 97 12/24/21 07:12 Oxygen Flow Rate 4 11/29/21 11:52 BMI result Body Mass Index 43.0 Const: Other: General - alert with verbal stimulation appears mildly anxious, having tremors mainly when she no someone is around Cardiovascular - S1S2, tachycardic Lungs - no distress, chest wall moving , on room Abdomen - soft, non-tender, no rebound or guarding Skin, dry, no erythema or drainage noted Extremities - no edema bilaterally Neuro - awake and alert with verbal stimulation, move all extremities but not following commands, bilateral lower extremity weakness, nonverbal Objective Data Active Medications Acetaminophen (Acetaminophen Supp 650 Mg Supp.Rect) 650 mg [place] DAILY@1230 [facility] Stop: 12/29/21 12:29 Diphenhydramine HCl (Diphenhydramine Hcl 50 Mg/Ml Vial) 25 mg IVPUSH DAILY@1230 [facility] Stop: 12/29/21 12:29 Enoxaparin Sodium (Enoxaparin Sodium 40 Mg/0.4 Ml Syringe) 40 mg SUBCUT Q24H [facility] Last Admin: 12/24/21 08:01 Dose: 40 mg Documented by: DARRICK Haloperidol Lactate (Haloperidol Lactate 5 Mg/Ml Vial) 1 mg IVPUSH Q4H PRN PRN Reason: anxiety/restlessness Last Admin: 12/23/21 12:49 Dose: 1 mg Documented by: HECTOR Haloperidol Lactate (Haloperidol Lactate 5 Mg/Ml Vial) 1 mg IVPUSH Q6H [facility] Last Admin: 12/24/21 10:00 Dose: 1 mg Documented by: DARRICK Levetiracetam (Keppra) 500 mg in 100 mls @ 400 mls/hr IV Q12H [facility] Last Infusion: 12/24/21 10:19 Dose: 0 mls/hr Documented by: DARRICK Amino Acids/Electrolytes/Dextrose (Clinimix E 4.25%-10%) 1,680 mls @ 70 mls/hr IV DAILY@1800 [facility] Stop: 12/24/21 17:59 Last Admin: 12/23/21 18:45 Dose: 70 mls/hr Documented by: HECTOR Sodium Chloride (Ns) 1,000 mls @ 500 mls/hr IVCONT DAILY@1100 [facility] Stop: 12/28/21 12:59 Last Admin: 12/24/21 11:03 Dose: 500 mls/hr Documented by: DARRICK Immune Globulin (Gammagard 10%) 200 mls @ 48 mls/hr IV DAILY@1300 [facility] Stop: 12/28/21 17:09 Immune Globulin (Gammagard 10%) 200 mls @ 48 mls/hr IV DAILY@1710 [facility] Stop: 12/28/21 21:19 Insulin Human Lispro (Insulin Lispro 100 Unit/Ml 3 Ml Vial) 0 unit SUBCUT QIDACHS [facility]; Protocol Last Admin: 12/24/21 08:00 Dose: 4 unit Documented by: DARRICK Comments: POC 211 Levothyroxine Sodium (Levothyroxine Sodium 100 Mcg/5 Ml Vial) 37.5 mcg IVPUSH DAILY [facility] Last Admin: 12/24/21 10:00 Dose: 37.5 mcg Documented by: DARRICK Methylprednisolone Sodium Succinate (Methylprednisolone Sod Succ 40 Mg/Ml Vial) 40 mg IVPUSH DAILY@1230 [facility] Stop: 12/29/21 12:29 Pharmacy Consult (Consult Rx Perform Med Rec) 1 each MISCELLANE ONCE PRN PRN Reason: Consult order Sodium Chloride (0.9 % Sodium Chloride Flush 3 Ml Syringe) 3 ml IVFLUSH QSHIFT [facility] Last Admin: 12/24/21 08:01 Dose: 3 ml Documented by: DARRICK Labs CBC & Chem 7: 12/21/21 06:13 12/24/21 06:36 Labs: Laboratory Results - last 24 hr 12/22/21 12/23/21 12/23/21 06:51 11:08 15:53 Anion Gap Estim Creat Clear Calc Estimated GFR POC Glucose 175 H 202 H Random Glucose Calcium Phosphorus Magnesium Albumin TSH Prolactin 8.6 12/23/21 12/24/21 12/24/21 20:58 06:36 07:14 Anion Gap 15 Estim Creat Clear Calc 115.9 Estimated GFR > 60 POC Glucose 252 H 211 H Random Glucose 224 H Calcium 9.6 Phosphorus 4.2 Magnesium 2.0 Albumin 3.9 TSH 2.48 Prolactin Assessment and Plan (1) Dysphagia: Status: Acute (2) Hypogammaglobulinemia: Status: Acute (3) Encephalopathy, metabolic: Status: Acute Plan 31-year-old type 2 diabetic morbidly obese female with a background of bipolar disorder and has autoimmune, IGA deficiecny, encephalitis and peripheral polyneuropathy for which she gets monthly IV IG and once yearly rituximab, was admitted for acute hypoxic respiratory failure due to covid, course was complciated by progressive AMS and agitation requiring intubation and ICU stay. extensive work up including EEG and LP did not revela specific diagnosis. she was eventually extubated after diuresis and dexmedetomide. she is now on room air, responding to commands, but not talking metabolic encephalopathy Could be secondary to agitated delerium, autoimmune or COVID encephalitis MRI repeated, no acute findings, Neurology to review images with Radiology Stable vitals but still nonverbal neuro appreciated, no evidence of seizure on EEG, to treat with IV IG IVIG protocol Recurrent redirection [facility] dysphagia VASCULAR NURSE follow up, keep NPO for now as she refuses to cooperate Continue PPN for the time being Nutritional consult Hold on G-tube placement for now Delirium , psychiatric disorder Related to polypharmacy, ICU related delirium, prolonged hospital stay Not taking her psychiatry medications psychiatry team evaluation Bren [email or web address] after discussing with psychiatry team COVID-19 infection appears resolved, could still have COVID encephalitis keep on airborne isolation due to immunocompromised state DM insulin CRISPIN resolved hypernatremia resolved dvt prophylaxis lovenox Quality Stroke Does the patient have a stroke diagnosis?: No VTE Prior VTE?: No VTE Risk Level:: Medical - moderate - high VTE Device Contraindication: Treatment Not Indicated VTE Drug Contraindication: N/A - Med Ordered
[2021-12-24 11:43] LABS: Glucose, Whole Blood 207 mg/dL (60-115)
[2021-12-24] MEDS: diphenhydrAMINE HCL 50 MG/ML VIAL 25 MG IVPUSH (12:30)
[2021-12-24] MEDS: methylPREDNISolone Sod Succ 40 MG/ML VIAL IVPUSH (12:30)
[2021-12-24] MEDS: Acetaminophen Supp 650 MG SUPP.RECT PR (12:30)
[2021-12-24] MEDS: Nystatin Powder 15 GM BOTTLE 1 APPL TOPICAL ×2 (13:11→21:48)
[2021-12-24] MEDS: Immun Glob G(IgG)/Gly/IGA Ov50 200 ML IV ×2 (13:11→17:22)
--- NOTE | 2021-12-24 14:09 | PC.NURSE ---
PATIENT HAS NOT VOIDED. BLADDER SCANNED FOR >385 ML. MD NOTIFIED AND ORDERED A NAVARRO TO BE PLACED. 18F CATHETER PLACED AND DRAINING CLOUDY YELLOW URINE. INITIAL OUTPUT = 500 ML. WILL CONTINUE TO MONITOR.
[2021-12-24 16:07] LABS: Glucose, Whole Blood 281 mg/dL (60-115)
--- NOTE | 2021-12-24 16:28 | PM.DS ---
DS: Providers Provider Date of Service: 12/24/21 Date of admission: 11/29/21 17:00 Primary care physician: Lachelle Guerra MD Consults: 11/29/21 16:59 Consult to Infectious Diseases Routine Consulting Provider: Doreen Torres Reason for consultation: covid Has provider been notified: No 11/29/21 17:04 Consult to Infectious Diseases Routine Consulting Provider: Doreen Torres Reason for consultation: esbl hx Has provider been notified: No 12/08/21 11:44 Consult to Care Team Routine Comment: Reason for consultation: increase anxiety, altered mentation 12/08/21 13:02 Consult to Psychiatry Routine Consulting Provider: Psych Covering Reason for consultation: increase anxiety, altered mentation, polypharmacy for your advice 12/09/21 11:47 Consult to Neurology Routine Consulting Provider: [facility] Reason for consultation: AMS, unable to make sentences, for your kind eval. 12/10/21 11:36 Consult to Nephrology Routine Consulting Provider: Aden Salcedo Reason for consultation: Hypernatremia 12/12/21 15:53 Consult to Pulmonology Routine Consulting Provider: Davion Mcrae Reason for consultation: atelectasis Has provider been notified: Yes 12/12/21 20:03 Consult to Infectious Diseases Routine Consulting Provider: Doreen Torres Reason for consultation: RESTRICTED ANTIFUNGAL 12/14/21 06:42 Consult to Pulmonology Routine Consulting Provider: Salvador Muniz Reason for consultation: immune depresed/pneumonia/hypoxia Has provider been notified: Yes 12/21/21 10:29 Consult to Psychiatry Routine Consulting Provider: Psych Covering Reason for consultation: Medications advice, refuses PO, non verbal, poly pharmacy. DS: Diagnosis Discharge Diagnosis (1) Dysphagia: Status: Acute (2) Hypogammaglobulinemia: Status: Acute (3) Encephalopathy, metabolic: Status: Acute (4) ARDS (adult respiratory distress syndrome): Status: Acute (5) Acute kidney injury: Status: Acute (6) Hypernatremia: Status: Acute (7) Suppression of immune system subtherapeutic: Status: Acute (8) Pneumonia due to 2019 novel coronavirus: Status: Acute (9) Clinical decompensation: Status: Acute (10) Tremor of unknown origin: Status: Acute DS: Summary Hospital Course Hospital Course: For full details please go back to full EMR. Admission note HPI A? 31-year-old woman with a history of multiple medical problems presenting to the ER with fever, tachycardia and hypoxia.? Apparently she was receiving her IV IG (see history of autoimmune polyneuropathy).? Apparently the patient had symptoms for 11 days and tested positive approximately 1 week ago.? She did receive 2 Pfizer vaccines.? She does have some memory issues however she denied shortness of breath, chest pain, nausea, vomiting, diarrhea, fever.? She did report a dry cough. ? Her inflammatory markers are significantly elevated along with LFTs, urinalysis positive for UTI, recent.? In the ER she received some IV fluids, Zofran, albuterol, Tylenol, Decadron, meropenem.? She will be admitted for further management and treatment of acute hypoxic respiratory failure secondary to COVID-19. Hospital course A 31-year-old type 2 diabetic morbidly obese female with a background of bipolar disorder and has autoimmune, IGA deficiecny, encephalitis and peripheral polyneuropathy for which she gets monthly IV IG and twice yearly rituximab presented to in this hospital on 11/29/2021 with a fever, apparently at the time she had had symptoms of COVID for approximately 11 days (onset Nov) but was diagnosed COVID positive approximately the of November of this year despite of having had 2 Pfizer vaccines.? It is known at the time she had a dry cough but was not hypoxic and denied shortness of breath, her inflammatory markers have been elevated including LFTs, she had a positive urine and was recently treated for a UTI. ?On arrival to the ER her O2 sat had been 89% on room air; patient was admitted due to hypoxic respiratory failure in the setting of COVID-19 infection possible UTI. In the emergency room IV fluids, steroids, meropenem and was admitted for further management of her COVID symptoms. ?Around December 08 patient had worsened mental status pulling at her IVs and oxygen, she was found to be nonresponsive, given her agitation she had to be restrained, apparently nonverbal but spontaneously breathing on 4 L of oxygen She has refused her medications.? Her sodium has been elevated at 157 over 48 hours as she removed her IVs and was not other to enough to eat or drink. patient was seen by shredding floor equipment operator who recommended aggressive fluid replacement; steroids were discontinued for the concern of steroid related psychosis, also due to concern of seizure Keppra was started. ?The patient has been seen by our neurologist Dr. Magaña who attributed her mental status changes to a metabolic/toxic encephalopathy as well as psychiatric disease.? Recommended a noncontrast MRI which did not show any acute findings as well as to resume her psych medications including ox carbamazepine and gabapentin which she could not take as psychiatry team recommended giving her Haldol [address] of the missing Seroquel and other psych meds and as needed Q4 PRN. A trial of Ativan was tried for possible catatonia but did not give any specific improvement and was discontinued by Psychiatry. LP was done showing no evidence of infection. Serology for viral encephalitis was negative as well. In ABG was done showing mixed respiratory alkalosis with metabolic acidosis with pH of 7.49, CO2 of 16 and HC03 of 12. Given her ongoing deterioration mental status changes and abnormal CT as reading she was transferred to ICU and intubated. At that time tried to be transferred to [facility] but they suggested giving the patient her missed dose of IVIG of 2 days from November which was done in ICU. Her electrolyte imbalance corrected as she received IV fluids and kidney function improved back to baseline. She was eventually extubated on December 12 and reintubated again the next day for 3 more days really extubated on December 17 and kept on Precedex as she remained agitated, not responsive and barely opening her eyes to physical or verbal stimuli. Central line was kept in and she was started on PPN. This might need to be removed and replaced by PICC line. Tested Covid -ve on Dec 21. EEG was done on December 22 and showed slow waves but no evidence of seizure. Patient was started on Keppra the day before the EEG was done for that concern as she had significant generalized tremors that never stopped since extubation . MRI was redone showing possible findings of encephalitis per neurologist but not reported by radiologist. Suggested treatment of IVIG for total of 5 days. The patient received the 1st dose on December 24. Psychiatry evaluated the patient and recommended starting Ativan 1 mg t.i.d. for possible catatonia with no significant changes, Started her on Haldol 1mg Q6 but then recommend to dc and keep her on Haldol 1mg Q4 PRN as she developed sinus tachycardia, mydriasis and sweating with no documented fever. Neurology recommended starting her on Depakote for possible seizure disorder and behavioral control. She will need 24hr EEG upon transfer. Time Spent with Patient Time attestation: Total time spent providing and/or coordinating discharge services: Physical Exam Vital Signs: Vital Signs: Last Vital Signs Temp 98.0 F 12/24/21 15:14 Pulse 105 H 12/24/21 15:14 Resp 20 12/24/21 15:14 BP 144/92 H 12/24/21 15:14 Pulse Ox 96 12/24/21 15:14 Oxygen Flow Rate 4 11/29/21 11:52 BMI result Body Mass Index 43.0 Const: Other: General - alert with verbal stimulation appears mildly anxious, having tremors mainly when someone is around but tremors decreases significantly when she is sleeping Cardiovascular - S1S2, tachycardic Lungs - no distress, chest wall moving , on room air Abdomen - soft, non-tender, no rebound or guarding Skin, dry, has fungal infection in the falls for abdomen and axilla Extremities - no edema bilaterally Neuro - awake and alert with verbal stimulation, move upper extremities with significant tremors, does not follow command but can protect her face from her falling arm, bilateral lower extremity weakness, nonverbal DS: Data Data Completed and Pending Labs on day of discharge: Laboratory Results - last 24 hr 12/22/21 12/23/21 12/24/21 06:51 20:58 06:36 Sodium 135 Potassium 4.0 Chloride 106 Carbon Dioxide 18 L Anion Gap 15 BUN 22 H Creatinine 0.71 Estim Creat Clear Calc 115.9 Estimated GFR > 60 POC Glucose 252 H Random Glucose 224 H Calcium 9.6 Phosphorus 4.2 Magnesium 2.0 Albumin 3.9 TSH 2.48 Prolactin 8.6 12/24/21 12/24/21 12/24/21 07:14 11:33 16:01 Sodium Potassium Chloride Carbon Dioxide Anion Gap BUN Creatinine Estim Creat Clear Calc Estimated GFR POC Glucose 211 H 207 H 281 H Random Glucose Calcium Phosphorus Magnesium Albumin TSH Prolactin Preliminary micro results at discharge 12/14/21 10:32 Nocardia Culture - Preliminary Bronchial Washings 12/10/21 23:34 Acid Fast Bacilli Culture & Smear - Preliminary Spine Imaging MRI - head: Radiologist's impression: ITS Impressions Chest X-Ray 11/29/21 11:47 IMPRESSION: Low lung volumes and new bilateral infiltrates. Chest CTA 11/30/21 14:13 IMPRESSION: Limited exam due to artifact from respiratory motion. No large or central pulmonary embolism. Low lung volumes and bilateral groundglass attenuation infiltrates compatible with Covid infection. Probable hepatosplenomegaly. VTE: negative KUB X-Ray 12/01/21 12:49 IMPRESSION: No evidence of bowel obstruction. Markedly distended bladder. Chest X-Ray 12/04/21 08:32 IMPRESSION: Low lung volumes and bilateral infiltrates similar to recent exams. Chest X-Ray 12/10/21 11:50 IMPRESSION: Hypoexpanded lungs without acute process. Chest X-Ray 12/10/21 12:54 IMPRESSION: Enteric tube in expected position. Brain MRI 12/10/21 14:36 IMPRESSION: 1. Suboptimal study due to patient motion artifact and habitus. 2. There are no acute bleeds or infarcts demonstrated on the available images. No masses are seen. The study redemonstrates abnormal FLAIR signal in the posterior thalami bilaterally, less extensive compared to the prior study. Chest X-Ray 12/10/21 23:00 IMPRESSION: Endotracheal tube terminating approximately 2 cm above the zuleyka. Right internal jugular central venous catheter terminates over the right atrium on the second image. This positioning in the atrium may be accentuated by the low lung volumes. Could consider partial retraction. Clear lungs. Abdomen/Pelvis CT 12/11/21 14:57 IMPRESSION: *Pulmonary infiltrates and subsegmental atelectasis developed at the lung bases bilaterally presumably pneumonia. *Circumferential wall thickening of the urinary bladder, suspect possible cystitis. There is a Kern catheter in place. *Excess amount of stool especially in the rectum suggests possible fecal impaction. *Abdomen otherwise is unremarkable. No evidence of bowel obstruction. No CT evidence of other intra-abdominal inflammatory process. *Small anterior abdominal wall hernia containing fat. Chest X-Ray 12/12/21 14:17 IMPRESSION: The endotracheal tube tip projects over the right mainstem bronchus and should be pulled back several centimeters. Volume loss to the left lung and increasing left lung atelectasis or infiltrate. Left jugular line tip is not well seen. This may project over the right atrium. Nasogastric tube projects over the stomach, tip not seen. Findings were communicated to nurse Selenee by telephone on 12/12/2021 and 3:07 PM. Chest X-Ray 12/13/21 07:15 IMPRESSION: Stable lines and catheters. Hypoventilated lungs with new patchy opacity in both upper lobes. No change in the left lower lobe atelectasis/infiltrate. Chest CT 12/13/21 17:06 IMPRESSION: Worsening pulmonary aeration with increased airspace opacities in the lower lungs, worsening hazy attenuation of the upper lobes, and new small bilateral pleural effusions. The endotracheal tube terminates at 1 cm above the zuleyka, similar since earlier today. Recommend repositioning. Chest X-Ray 12/16/21 08:00 IMPRESSION: -Support apparatus appears stable. -Hypoinflated lungs without lobar consolidation. Brain MRI 12/20/21 09:54 IMPRESSION: Exam is technically limited by artifact. No acute infarcts. No definite significant intracranial findings though assessment is limited. Discharge Plan Discharge Patient Disposition: Xfer [facility] Discharge Diagnosis: Encephalopathy Weakness Covid 19 infx; Hypoxic respiratory failure Electrolyte imbalance, Kidney injury Referrals: Lachelle Guerra MD [Primary Care Provider] - 1 Week Discharge Medications: New haloperidol lactate 5 mg/mL Solution 1 mg IVPUSH Q4H PRN (Reason: Anxiety/Restlessness) 1 Days 0RF levothyroxine 20 mcg/mL Solution 37.5 mcg IVPUSH DAILY 1 Days Qty: 1.875 0RF nystatin 100,000 unit/gram Powder 1 appl topical BID 1 Days 0RF Protocol: Apply to: Apply to: Affected areas Continued (DME) blood-glucose meter [FreeStyle Lite Meter] Kit See Rx Instructions .ROUTE .MEDSUPPLY Qty: 1 0RF Rx Instructions: 3 x/day Jardiance 10 mg tablet 10 mg PO QAM Qty: 30 6RF metformin 500 mg tablet 500 mg PO BID Qty: 60 2RF Rx Instructions: Take with meals pravastatin 20 mg tablet 20 mg PO BEDTIME Qty: 30 5RF levothyroxine [Euthyrox] 75 mcg tablet 75 mcg PO QAM Qty: 30 4RF medroxyprogesterone 150 mg/mL suspension 150 mg IM Q12W Qty: 1 2RF (DME) pen needle, diabetic [BD Wendy 2nd Gen Pen Needle] 32 gauge x 32 needle See Rx Instructions .ROUTE .MEDSUPPLY Qty: 50 3RF Rx Instructions: As directed daily omega-3 fatty acids 1,000 mg capsule 2,000 mg PO BID Qty: 120 6RF pantoprazole 40 mg tablet,delayed release (DR/EC) 40 mg PO DAILY Qty: 30 3RF magnesium oxide 400 mg (241.3 mg magnesium) tablet 400 mg PO DAILY Qty: 30 0RF ferrous sulfate 325 mg (65 mg iron) tablet 325 mg PO BID Qty: 180 3RF thiamine HCl (vitamin B1) 100 mg tablet 100 mg PO DAILY Qty: 30 0RF cholecalciferol (vitamin D3) 1,250 mcg (50,000 unit) capsule 1,250 mcg PO MO 0RF chlorhexidine gluconate 0.12 % mouthwash 15 ml PO BID 0RF quetiapine 400 mg tablet 1 tab PO BEDTIME 0RF quetiapine 200 mg tablet 1 tab PO BEDTIME 0RF immun glob G(IgG)-gly-IgA ov50 10 gram/100 mL (10 %) Solution 500 ml SUBCUT Q4W 0RF immun glob G(IgG)-gly-IgA ov50 10 gram/100 mL (10 %) Solution 450 ml SUBCUT Q4W 0RF pregabalin 300 mg capsule 300 mg PO BID 0RF rituximab 10 mg/mL concentrate 10 mg IV [id number] 0RF Label Comments: LAST RECIEVED IN THE SPRING Rx Instructions: once every year melatonin 3 mg tablet 6 mg PO DAILY 0RF multivitamin Tablet 1 tab PO DAILY 0RF cranberry 400 mg capsule 450 mg PO DAILY 0RF Rx Instructions: administer with a meal albuterol sulfate 90 mcg/actuation HFA aerosol inhaler 1 inh inhalation QID PRN (Reason: shortness of breath or wheezing) Qty: 6.7 1RF bupropion HCl 100 mg tablet sustained-release 12 hr 100 mg PO QAM 0RF trazodone 100 mg tablet 100 mg PO BEDTIME 0RF oxcarbazepine 150 mg tablet 450 mg PO BID 0RF Tresiba FlexTouch U-200 200 unit/mL (3 mL) insulin pen 20 unit subcut BEDTIME 30 Days Qty: 3 3RF (DME) FreeStyle Lite Strips Strip See Rx Instructions .ROUTE .MEDSUPPLY Qty: 100 11RF Rx Instructions: three times a day (DME) lancets [FreeStyle Lancets] 28 gauge misc See Rx Instructions .ROUTE .MEDSUPPLY Qty: 100 11RF Rx Instructions: As directed three time a day Diet: other Activity on Discharge: As tolerated Stand Alone Forms: Patient Portal Discharge page Care Plan Goals: Read below Health Concerns: Read below Plan of Treatment: Read below Assessment: Admitted for Covid19 infection. Developed respiratory failure requiring ICU stay. Developed encephalopathy during hospital stay not improving. To be transferred to [facility] for further evaluation and treatment.
--- NOTE | 2021-12-24 18:14 | PC.NURSE ---
Addendum entered by Uma Galeana RN 12/24/21 18:40: FAMILY CALLED AND UPDATED. PASSED ON TO ONCOMING NURSE TO CALL WITH UPDATE ON TRANSFER NO MATTER WHAT TIME IT IS PER FAMILY REQUEST. Original Note: JUST SPOKE WITH [facility] NURSING DRY CLEANER APPRENTICE AUGIE AND GIVEN BRIEF REPORT ON PATIENTS CURRENT STATUS. AT THIS TIME NO BED HAS BEEN ASSIGNED BY [facility]. COVID SWAB TO BE COLLECTED AND SENT TO LAB.
[2021-12-24 19:34] LABS: Influenza A PCR NEGATIVE (Negative); Influenza B PCR NEGATIVE (Negative); Resp Syncy Virus RNA Qual PCR NEGATIVE (Negative); SARS COV2 PCR INHOUSE NEGATIVE (Negative)
[2021-12-24 20:35] LABS: Glucose, Whole Blood 257 mg/dL (60-115)
[2021-12-25 03:37] VITALS: BP 108/68; PULSE 109; RESP 18; TEMP 36.4; O2SAT 94
[2021-12-25 06:40] LABS: Hematocrit 33.6 % (37.0-47.0); Hemoglobin 10.9 g/dl (12.0-16.0); Mean Corpuscular HGB Conc 32.4 g/dl (31.0-35.0); Mean Corpuscular Hemoglobin 28.8 pg (27.0-33.0); Mean Corpuscular Volume 88.9 fL (80.0-98.0); Mean Platelet Volume 10.7 fL (9.4-12.3); Platelet Count 196 X10*3/uL (160-400); Red Blood Count 3.78 X10*6/uL (4.20-5.50); Red Cell Distribution Width 17.2 % (11.0-16.0); White Blood Count 5.2 X10*3/uL (4.8-10.8)
[2021-12-25 07:12] LABS: Alanine Aminotransferase 41 U/L (0-31); Albumin Level 3.4 g/dL (3.5-5.0); Alkaline Phosphatase 79 U/L (39-117); Anion Gap 11 (12-20); Aspartate Amino Transferase 33 U/L (5-31); Bilirubin Direct 0.3 mg/dL (0.0-0.5); Bilirubin Total 0.5 mg/dL (0.0-1.0); Blood Urea Nitrogen 20 mg/dL (9-16); Calcium 9.2 mg/dL (8.4-10.2); Carbon Dioxide 22 mmol/L (22-29); Chloride 106 mmol/L (96-108); Creatinine Clr Calc Pharmacy 119.3; Estimated Glomerular Filt Rate > 60; Glucose Random 197 mg/dL (60-115); Potassium 3.6 mmol/L (3.3-5.1); Sodium 135 mmol/L (135-145); Total Protein 8.3 g/dL (6.5-8.0)
[2021-12-25 07:20] VITALS: BP 140/84; PULSE 114; RESP 19; TEMP 36.8; O2SAT 96
[2021-12-25 07:26] LABS: Glucose, Whole Blood 195 mg/dL (60-115)
[2021-12-25] MEDS: Enoxaparin Sodium 40 MG/0.4 ML SYRINGE SUBCUT (08:06)
[2021-12-25] MEDS: Insulin Lispro 100 UNIT/ML 3 ML VIAL SUBCUT ×4 (08:06→20:58)
[2021-12-25] MEDS: Levothyroxine Sodium 100 MCG/5 ML VIAL 37.5 MCG IVPUSH (08:07)
[2021-12-25] MEDS: 0.9 % Sodium Chloride Flush 3 ML SYRINGE IVFLUSH ×3 (08:07→20:58)
[2021-12-25] MEDS: Nystatin Powder 15 GM BOTTLE 1 APPL TOPICAL ×2 (08:15→21:00)
--- NOTE | 2021-12-25 09:34 | HO.PM.IMPN ---
Subjective Subjective Date of Service: 12/25/21 Interval History: the patient was seen and evaluated this morning Laying in bed, no significant changes over the last few days open eyes and response to calling her name but not following commands Refusing to eat or drink Day 2 of IV IG No reported other overnight events. Systemic review: Unable to provide any meaningful answers, nonverbal Physical Exam Vital Signs: Vital Signs: Last Vital Signs Temp 98.2 F 12/25/21 07:20 Pulse 114 H 12/25/21 07:20 Resp 19 12/25/21 07:20 BP 140/84 H 12/25/21 07:20 Pulse Ox 96 12/25/21 07:20 Oxygen Flow Rate 4 11/29/21 11:52 BMI result Body Mass Index 43.0 Const: Other: General - alert with verbal stimulation appears mildly anxious, having tremors mainly when someone is around but tremors almost gone when she is sleeping Cardiovascular - S1S2, tachycardic Lungs - no distress, chest wall moving , on room air Abdomen - soft, non-tender, no rebound or guarding Skin, dry, has fungal infection in the falls for abdomen and axilla Extremities - no edema bilaterally Neuro - awake and alert with verbal stimulation, move upper extremities with significant tremors, does not follow command but can protect her face from her falling arm, bilateral lower extremity weakness, nonverbal Objective Data Active Medications Acetaminophen (Acetaminophen Supp 650 Mg Supp.Rect) 650 mg MD DAILY@1230 [facility] Stop: 12/29/21 12:29 Last Admin: 12/24/21 12:30 Dose: 650 mg Documented by: DARRICK Diphenhydramine HCl (Diphenhydramine Hcl 50 Mg/Ml Vial) 25 mg IVPUSH DAILY@1230 [facility] Stop: 12/29/21 12:29 Last Admin: 12/24/21 12:30 Dose: 25 mg Documented by: DARRICK Enoxaparin Sodium (Enoxaparin Sodium 40 Mg/0.4 Ml Syringe) 40 mg SUBCUT Q24H [facility] Last Admin: 12/25/21 08:06 Dose: 40 mg Documented by: IGLESSudha Haloperidol Lactate (Haloperidol Lactate 5 Mg/Ml Vial) 1 mg IVPUSH Q4H PRN PRN Reason: anxiety/restlessness Last Admin: 12/24/21 18:31 Dose: 1 mg Documented by: DARRICK Sodium Chloride (Ns) 1,000 mls @ 500 mls/hr IVCONT DAILY@1100 [facility] Stop: 12/28/21 12:59 Last Infusion: 12/24/21 13:19 Dose: 0 mls/hr Documented by: DARRICK Immune Globulin (Gammagard 10%) 200 mls @ 48 mls/hr IV DAILY@1300 [facility] Stop: 12/28/21 17:09 Last Infusion: 12/24/21 17:22 Dose: 0 mls/hr Documented by: DARRICK Immune Globulin (Gammagard 10%) 200 mls @ 48 mls/hr IV DAILY@1710 [facility] Stop: 12/28/21 21:19 Last Infusion: 12/25/21 00:47 Dose: 0 mls/hr Documented by: DESCRYSTAL Multivitamins 10 ml/ Trace Metals 1 ml/ Amino Acids/Electrolytes/Dextrose 1,680 mls @ 70 mls/hr IV DAILY@1800 [facility] Stop: 12/25/21 17:59 Last Admin: 12/24/21 18:50 Dose: 70 mls/hr Documented by: DARRICK Insulin Human Lispro (Insulin Lispro 100 Unit/Ml 3 Ml Vial) 0 unit SUBCUT QIDACHS [facility]; Protocol Last Admin: 12/25/21 08:06 Dose: 2 unit Documented by: GRAEME Levothyroxine Sodium (Levothyroxine Sodium 100 Mcg/5 Ml Vial) 37.5 mcg IVPUSH DAILY [facility] Last Admin: 12/25/21 08:07 Dose: 37.5 mcg Documented by: GRAEME Methylprednisolone Sodium Succinate (Methylprednisolone Sod Succ 40 Mg/Ml Vial) 40 mg IVPUSH DAILY@1230 [facility] Stop: 12/29/21 12:29 Last Admin: 12/24/21 12:30 Dose: 40 mg Documented by: DARRICK Nystatin (Nystatin Powder 15 Gm Bottle) 1 appl TOPICAL BID [facility]; Protocol Last Admin: 12/25/21 08:15 Dose: 1 appl Documented by: GRAEME Pharmacy Consult (Consult Rx Perform Med Rec) 1 each MISCELLANE ONCE PRN PRN Reason: Consult order Sodium Chloride (0.9 % Sodium Chloride Flush 3 Ml Syringe) 3 ml IVFLUSH QSHIFT [facility] Last Admin: 02/13/22 08:07 Dose: 3 ml Documented by: GRAEME Labs CBC & Chem 7: 12/25/21 06:23 12/25/21 06:23 Labs: Laboratory Results - last 24 hr 12/24/21 12/24/21 12/24/21 11:33 16:01 18:25 MCV MCH MCHC RDW Plt Count MPV Absolute Nucleated RBC Nucleated RBC % (auto) Anion Gap Estim Creat Clear Calc Estimated GFR POC Glucose 207 H 281 H Random Glucose Calcium Total Bilirubin Direct Bilirubin AST ALT Alkaline Phosphatase Total Protein Albumin Influenza Type A (PCR) NEGATIVE Influenza Type B (PCR) NEGATIVE RSV RNA Qual (PCR) NEGATIVE SARS-CoV-2 RNA (RT-PCR) NEGATIVE 12/24/21 12/25/21 12/25/21 20:22 06:23 06:23 MCV 88.9 MCH 28.8 MCHC 32.4 RDW 17.2 H Plt Count 196 D MPV 10.7 Absolute Nucleated RBC 0.000 Nucleated RBC % (auto) 0.0 Anion Gap 11 L Estim Creat Clear Calc 119.3 Estimated GFR > 60 POC Glucose 257 H Random Glucose 197 H Calcium 9.2 Total Bilirubin 0.5 Direct Bilirubin 0.3 AST 33 H ALT 41 H Alkaline Phosphatase 79 Total Protein 8.3 H Albumin 3.4 L Influenza Type A (PCR) Influenza Type B (PCR) RSV RNA Qual (PCR) SARS-CoV-2 RNA (RT-PCR) 12/25/21 12/25/21 06:23 07:23 MCV MCH MCHC RDW Plt Count MPV Absolute Nucleated RBC Nucleated RBC % (auto) Anion Gap Estim Creat Clear Calc Estimated GFR POC Glucose 195 H Random Glucose Calcium Total Bilirubin Cancelled Direct Bilirubin Cancelled AST Cancelled ALT Cancelled Alkaline Phosphatase Cancelled Total Protein Cancelled Albumin Cancelled Influenza Type A (PCR) Influenza Type B (PCR) RSV RNA Qual (PCR) SARS-CoV-2 RNA (RT-PCR) Assessment and Plan (1) Tremor of unknown origin: Status: Acute (2) Dysphagia: Status: Acute (3) Encephalopathy, metabolic: Status: Acute (4) Hypogammaglobulinemia: Status: Acute Plan 31-year-old type 2 diabetic morbidly obese female with a background of bipolar disorder and has autoimmune, IGA deficiecny, encephalitis and peripheral polyneuropathy for which she gets monthly IV IG and once yearly rituximab, was admitted for acute hypoxic respiratory failure due to covid, course was complciated by progressive AMS and agitation requiring intubation and ICU stay. extensive work up including EEG and LP did not revela specific diagnosis. she was eventually extubated after diuresis and dexmedetomide. 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 after discussing with psychiatry team COVID-19 infection appears resolved, could still have COVID encephalitis keep on airborne isolation due to immunocompromised state DM insulin CRISPIN resolved hypernatremia resolved dvt prophylaxis lovenox Quality Stroke Does the patient have a stroke diagnosis?: No VTE Prior VTE?: No VTE Risk Level:: Medical - moderate - high VTE Device Contraindication: Treatment Not Indicated VTE Drug Contraindication: N/A - Med Ordered
[2021-12-25 11:03] VITALS: BP 143/68; PULSE 109; RESP 18; TEMP 36.4; O2SAT 95
[2021-12-25 11:18] LABS: Glucose, Whole Blood 198 mg/dL (60-115)
[2021-12-25] MEDS: 0.9 % Sodium Chloride 1,000 ML 500 ML IVCONT (11:40)
[2021-12-25] MEDS: Acetaminophen Supp 650 MG SUPP.RECT PR (13:05)
[2021-12-25] MEDS: methylPREDNISolone Sod Succ 40 MG/ML VIAL IVPUSH (13:09)
[2021-12-25] MEDS: diphenhydrAMINE HCL 50 MG/ML VIAL 25 MG IVPUSH ×2 (13:09→16:43)
[2021-12-25] MEDS: Immun Glob G(IgG)/Gly/IGA Ov50 200 ML IV ×2 (13:53→17:48)
[2021-12-25 15:06] VITALS: BP 138/87; PULSE 80; RESP 20; TEMP 36.7; O2SAT 90
[2021-12-25 16:05] LABS: Glucose, Whole Blood 272 mg/dL (60-115)
[2021-12-25] MEDS: Haloperidol Lactate 5 MG/ML VIAL IVPUSH (16:43)
[2021-12-25] MEDS: Haloperidol Lactate 5 MG/ML VIAL 1 MG IVPUSH ×2 (18:12→23:32)
[2021-12-25 19:10] VITALS: BP 155/90; PULSE 78; RESP 20; TEMP 36.7; O2SAT 99
[2021-12-25 19:45] LABS: Glucose, Whole Blood 283 mg/dL (60-115)
[2021-12-26] VITALS (7 sets, daily range): BP systolic 79–151; BP diastolic 53–97; PULSE 80–121; RESP 18–19; TEMP 36.3–37.2; O2SAT 90–98
[2021-12-26] MEDS: Haloperidol Lactate 5 MG/ML VIAL 1 MG IVPUSH ×3 (05:31→17:28)
[2021-12-26 07:08] LABS: Anion Gap 10 (12-20); Blood Urea Nitrogen 19 mg/dL (9-16); Calcium 9.2 mg/dL (8.4-10.2); Carbon Dioxide 21 mmol/L (22-29); Chloride 105 mmol/L (96-108); Creatinine Clr Calc Pharmacy 119.3; Estimated Glomerular Filt Rate > 60; Glucose Random 183 mg/dL (60-115); Potassium 3.4 mmol/L (3.3-5.1); Sodium 133 mmol/L (135-145)
[2021-12-26 07:32] LABS: Glucose, Whole Blood 187 mg/dL (60-115)
--- NOTE | 2021-12-26 08:57 | P.CNNE_ITS ---
History of Present Illness Data of Consult Service Date: 12/26/21 Primary Care Provider: Lachelle Guerra MD HPI Reason for consult: Encephalopathy 31 years old woman with severe encephalopathy of unknown etiology with suspicion of either COVID related encephalopathy or autoimmune encephalopathy. She also has underlying psychiatric illness. [facility] Past Medical History Medical History (Updated 12/24/21 @ 16:30 by Lore Fernandez MD) Acquired hypothyroidism Bipolar disorder Blurred vision, bilateral Clinical decompensation Diabetes mellitus with hyperglycemia Elevated vitamin B12 level Esophagitis with gastritis Essential hypertension Gait instability Gastric paresis Hx of Escherichia coli septicemia Hyperlipidemia Hypogammaglobulinemia Muscle weakness Obesity, morbid, BMI 40.0-49.9 Peripheral neuropathy Suppression of immune system subtherapeutic Vitamin D deficiency Family History Family History Other Adopted Family history: reviewed and not pertinent Surgical History Surgical History Hx of section Hx of tooth extraction Social History Social History Household Members: Adopted Family Housing: Unknown / Unable to assess Alcohol intake: never Patient Tobacco Use Status: Former Tobacco user Second Hand Smoke Exposure: No service: No Current occupational status: disabled Gender identity: Female Meds Allergies Allergy/AdvReac Type Severity Reaction Status Date / Time latex Allergy Unknown rash Verified 11/14/21 00:57 metoclopramide [From REGLAN] AdvReac Unknown INTERACTS Verified 11/14/21 00:57 W/ SEROQUEL Active Medications: Current Medications Acetaminophen (Acetaminophen Supp 650 Mg Supp.Rect) 650 mg [place] DAILY@1230 [facility] Stop: 12/29/21 12:29 Last Admin: 12/25/21 13:05 Dose: 650 mg Documented by: Diphenhydramine HCl (Diphenhydramine Hcl 50 Mg/Ml Vial) 25 mg IVPUSH DAILY@1230 [facility] Stop: 12/29/21 12:29 Last Admin: 12/25/21 13:09 Dose: 25 mg Documented by: Enoxaparin Sodium (Enoxaparin Sodium 40 Mg/0.4 Ml Syringe) 40 mg SUBCUT Q24H [facility] Last Admin: 12/25/21 08:06 Dose: 40 mg Documented by: Haloperidol Lactate (Haloperidol Lactate 5 Mg/Ml Vial) 1 mg IVPUSH Q4H PRN PRN Reason: anxiety/restlessness Last Admin: 12/24/21 18:31 Dose: 1 mg Documented by: Haloperidol Lactate (Haloperidol Lactate 5 Mg/Ml Vial) 1 mg IVPUSH Q6H [facility] Last Admin: 12/26/21 05:31 Dose: 1 mg Documented by: Sodium Chloride (Ns) 1,000 mls @ 500 mls/hr IVCONT DAILY@1100 [facility] Stop: 12/28/21 12:59 Last Infusion: 12/25/21 13:40 Dose: Infused Documented by: Immune Globulin (Gammagard 10%) 200 mls @ 48 mls/hr IV DAILY@1300 [facility] Stop: 12/28/21 17:09 Last Infusion: 12/25/21 18:03 Dose: Infused Documented by: Immune Globulin (Gammagard 10%) 200 mls @ 48 mls/hr IV DAILY@1710 [facility] Stop: 12/28/21 21:19 Last Infusion: 12/25/21 22:05 Dose: Infused Documented by: Amino Acids/Electrolytes/Dextrose (Clinimix E 4.25%-10%) 1,680 mls @ 70 mls/hr IV DAILY@1800 [facility] Stop: 12/26/21 17:59 Last Admin: 12/25/21 17:48 Dose: 70 mls/hr Documented by: Insulin Human Lispro (Insulin Lispro 100 Unit/Ml 3 Ml Vial) 0 unit SUBCUT QIDACHS [facility]; Protocol Last Admin: 12/25/21 20:58 Dose: 6 unit Documented by: Levothyroxine Sodium (Levothyroxine Sodium 100 Mcg/5 Ml Vial) 37.5 mcg IVPUSH DAILY [facility] Last Admin: 12/25/21 08:07 Dose: 37.5 mcg Documented by: Methylprednisolone Sodium Succinate (Methylprednisolone Sod Succ 40 Mg/Ml Vial) 40 mg IVPUSH DAILY@1230 [facility] Stop: 12/29/21 12:29 Last Admin: 12/25/21 13:09 Dose: 40 mg Documented by: Nystatin (Nystatin Powder 15 Gm Bottle) 1 appl TOPICAL BID [facility]; Protocol Last Admin: 12/25/21 21:00 Dose: 1 appl Documented by: Pharmacy Consult (Consult Rx Perform Med Rec) 1 each MISCELLANE ONCE PRN PRN Reason: Consult order Sodium Chloride (0.9 % Sodium Chloride Flush 3 Ml Syringe) 3 ml IVFLUSH QSHIFT [facility] Last Admin: 12/25/21 20:58 Dose: 3 ml Documented by: Home Medications Medication Instructions Recorded Confirmed Last Taken Type bupropion HCl 100 mg tablet,12 hr 100 mg PO QAM 11/30/20 11/29/21 11/28/21 History sustained-release trazodone 100 mg tablet 100 mg PO BEDTIME 11/30/20 11/29/21 11/28/21 History cranberry 400 mg capsule 450 mg PO DAILY cap 03/22/21 11/29/21 11/28/21 History melatonin 3 mg tablet 6 mg PO DAILY 03/22/21 11/29/21 11/28/21 History multivitamin 1 tab PO DAILY 03/22/21 11/29/21 11/28/21 History pregabalin 300 mg capsule 300 mg PO BID cap 05/10/21 11/29/21 11/28/21 History rituximab 10 mg/mL 10 mg IV [id number] 08/11/21 11/29/21 Unknown History concentrate,intravenous oxcarbazepine 150 mg tablet 450 mg PO BID tab 08/18/21 11/29/21 11/28/21 History cholecalciferol (vitamin D3) 1,250 1,250 mcg PO MO 10/16/21 11/29/21 11/28/21 History mcg (50,000 unit) capsule chlorhexidine gluconate 0.12 % 15 ml PO BID 11/29/21 11/29/21 11/28/21 History mouthwash quetiapine 200 mg tablet 1 tab PO BEDTIME 11/29/21 11/29/21 11/28/21 History quetiapine 400 mg tablet 1 tab PO BEDTIME 11/29/21 11/29/21 11/28/21 History immun glob G 10 gram/100 450 ml SUBCUT Q4W 12/14/21 12/14/21 10/26/21 History mL(10%)-gly-IgA ov50 mcg/mL subcutaneous soln immun glob G 10 gram/100 500 ml SUBCUT Q4W 12/14/21 12/14/21 10/25/21 History mL(10%)-gly-IgA ov50 mcg/mL subcutaneous soln Physical Exam Vital Signs: Vital Signs: Last Vital Signs Temp 97.7 F 12/26/21 07:09 Pulse 106 H 12/26/21 07:09 Resp 18 12/26/21 07:09 BP 137/92 H 12/26/21 07:09 Pulse Ox 94 12/26/21 07:09 Oxygen Flow Rate 4 11/29/21 11:52 BMI result Body Mass Index 43.0 Neuro: Other: Quite drowsy and barely made eye contact. When I tried to communicate with her her left side of the face and arm started to jerk but it was not consistent. There was no gaze deviation. She did not respond to verbal command or tried to say something. Results Labs CBC & Chem 7: 12/25/21 06:23 12/26/21 06:08 Labs: BMP 12/26/21 06:08 Sodium 133 L Potassium 3.4 Chloride 105 Carbon Dioxide 21 L BUN 19 H Creatinine 0.69 Calcium 9.2 Her recent MRI of brain was reported normal. The might be subtle hyperintense signal abnormalities in medial frontal gyri and head of the caudate bilaterally. I discussed with radiologist but it was not sure if it was real finding. There was no significant finding on DWI sequence Microbiology Microbiology Results: Microbiology 12/14/21 10:32 Bronchial Washings Nocardia Culture - Preliminary 12/16/21 13:04 Sputum - Suctioned Gram Stain - Final 12/16/21 13:04 Sputum - Suctioned Sputum Culture - Final 12/10/21 23:34 Spine Direct Acid Fast Bacilli Smear - Final 12/10/21 23:34 Spine Acid Fast Bacilli Culture & Smear - Preliminary 12/14/21 10:33 Bronchial Washings Gram Stain - Final 12/14/21 10:33 Bronchial Washings Routine Culture - Final 12/10/21 11:53 Blood - Subclavian Blood Culture - Final No growth after 5 days. 12/10/21 11:53 Blood - Subclavian Blood Culture - Final No growth after 5 days. 12/12/21 15:40 Sputum - Suctioned Gram Stain - Final 12/12/21 15:40 Sputum - Suctioned Sputum Culture - Final 12/10/21 23:34 Cerebrospinal Fluid Gram Stain - Final 12/10/21 23:34 Cerebrospinal Fluid CSF Examination - Final 12/10/21 23:34 Cerebrospinal Fluid Fluid Description - Final 12/10/21 23:34 Cerebrospinal Fluid CSF Culture - Final No growth after 3 days. 12/10/21 Unknown Urine Catheterized - Kern Catheter Urine Culture - Final 12/04/21 11:43 Blood - Venous Blood Culture - Final No growth after 5 days. 12/04/21 11:43 Blood - Venous Blood Culture - Final No growth after 5 days. 11/29/21 14:01 Blood - Venous Blood Culture - Final No growth after 5 days. 11/29/21 13:51 Blood - Venous Blood Culture - Final No growth after 5 days. 11/29/21 Unknown Urine clean catch - Urine ohara top Urine Culture - Final Assessment and Plan (1) Encephalopathy: Status: Acute 31 years old woman with encephalopathy of unknown etiology with suspicion of either COVID related encephalopathy or autoimmune encephalopathy. At this time she was being treated with a course of intravenous immunoglobulin for 5 days to see if we could improve her mental status. Recent EEG did not reveal any epileptic discharges. After that tentative treatment with Keppra was top Procedures Date of Service Date of Service: 12/26/21
[2021-12-26] MEDS: Enoxaparin Sodium 40 MG/0.4 ML SYRINGE SUBCUT (09:01)
[2021-12-26] MEDS: 0.9 % Sodium Chloride Flush 3 ML SYRINGE IVFLUSH ×2 (09:02→17:29)
[2021-12-26] MEDS: Insulin Lispro 100 UNIT/ML 3 ML VIAL SUBCUT ×4 (09:02→21:02)
[2021-12-26] MEDS: Nystatin Powder 15 GM BOTTLE 1 APPL TOPICAL ×2 (09:02→21:03)
[2021-12-26] MEDS: Levothyroxine Sodium 100 MCG/5 ML VIAL 37.5 MCG IVPUSH (09:02)
[2021-12-26 09:09] LABS: Magnesium 1.9 mg/dL (1.6-2.6)
--- NOTE | 2021-12-26 09:52 | P.PNIM_ITS ---
Subjective Subjective Date of Service: 12/26/21 Interval History: the patient was seen and evaluated this morning Laying in bed, no significant changes over the last few days open eyes and response to calling her name but not following commands or making eye contact Refusing to eat or drink Day 3 of IV IG No reported other overnight events. Systemic review: Unable to provide any meaningful answers, nonverbal Physical Exam Vital Signs: Vital Signs: Last Vital Signs Temp 97.7 F 12/26/21 07:09 Pulse 106 H 12/26/21 07:09 Resp 18 12/26/21 07:09 BP 137/92 H 12/26/21 07:09 Pulse Ox 94 12/26/21 07:09 Oxygen Flow Rate 4 11/29/21 11:52 BMI result Body Mass Index 43.0 Const: Other: General - alert with verbal stimulation appears mildly anxious, having tremors mainly when someone is around but tremors almost gone when she is sleeping Cardiovascular - S1S2, tachycardic Lungs - no distress, chest wall moving , on room air Abdomen - soft, non-tender, no rebound or guarding Skin, dry, has fungal infection in the falls for abdomen and axilla Extremities - no edema bilaterally Neuro - awake and alert with verbal stimulation, move upper extremities with significant tremors, does not follow command but can protect her face from her falling arm, bilateral lower extremity weakness, nonverbal Objective Data Active Medications Acetaminophen (Acetaminophen Supp 650 Mg Supp.Rect) 650 mg [place] DAILY@1230 [facility] Stop: 12/29/21 12:29 Last Admin: 12/25/21 13:05 Dose: 650 mg Documented by: GRAEME Diphenhydramine HCl (Diphenhydramine Hcl 50 Mg/Ml Vial) 25 mg IVPUSH DAILY@1230 [facility] Stop: 12/29/21 12:29 Last Admin: 12/25/21 13:09 Dose: 25 mg Documented by: GRAEME Enoxaparin Sodium (Enoxaparin Sodium 40 Mg/0.4 Ml Syringe) 40 mg SUBCUT Q24H [facility] Last Admin: 12/26/21 09:01 Dose: 40 mg Documented by: SARAH Haloperidol Lactate (Haloperidol Lactate 5 Mg/Ml Vial) 1 mg IVPUSH Q4H PRN PRN Reason: anxiety/restlessness Last Admin: 12/24/21 18:31 Dose: 1 mg Documented by: DARRICK Haloperidol Lactate (Haloperidol Lactate 5 Mg/Ml Vial) 1 mg IVPUSH Q6H [facility] Last Admin: 12/26/21 05:31 Dose: 1 mg Documented by: STACEY Sodium Chloride (Ns) 1,000 mls @ 500 mls/hr IVCONT DAILY@1100 [facility] Stop: 12/28/21 12:59 Last Infusion: 12/25/21 13:40 Dose: 0 mls/hr Documented by: GRAEME Immune Globulin (Gammagard 10%) 200 mls @ 48 mls/hr IV DAILY@1300 [facility] Stop: 12/28/21 17:09 Last Infusion: 12/25/21 18:03 Dose: 0 mls/hr Documented by: GRAEME Immune Globulin (Gammagard 10%) 200 mls @ 48 mls/hr IV DAILY@1710 [facility] Stop: 12/28/21 21:19 Last Infusion: 12/25/21 22:05 Dose: 0 mls/hr Documented by: STACEY Amino Acids/Electrolytes/Dextrose (Clinimix E 4.25%-10%) 1,680 mls @ 70 mls/hr IV DAILY@1800 [facility] Stop: 12/26/21 17:59 Last Admin: 12/25/21 17:48 Dose: 70 mls/hr Documented by: GRAEME Insulin Human Lispro (Insulin Lispro 100 Unit/Ml 3 Ml Vial) 0 unit SUBCUT QIDACHS [facility]; Protocol Last Admin: 12/26/21 09:02 Dose: 2 unit Documented by: SARAH Levothyroxine Sodium (Levothyroxine Sodium 100 Mcg/5 Ml Vial) 37.5 mcg IVPUSH D AILY [facility] Last Admin: 12/26/21 09:02 Dose: 37.5 mcg Documented by: SARAH Methylprednisolone Sodium Succinate (Methylprednisolone Sod Succ 40 Mg/Ml Vial) 40 mg IVPUSH DAILY@1230 [facility] Stop: 12/29/21 12:29 Last Admin: 12/25/21 13:09 Dose: 40 mg Documented by: GRAEME Nystatin (Nystatin Powder 15 Gm Bottle) 1 appl TOPICAL BID [facility]; Protocol Last Admin: 12/26/21 09:02 Dose: 1 appl Documented by: HO.[email or web address] Pharmacy Consult (Consult Rx Perform Med Rec) 1 each MISCELLANE ONCE PRN PRN Reason: Consult order Sodium Chloride (0.9 % Sodium Chloride Flush 3 Ml Syringe) 3 ml IVFLUSH QSHIFT [facility] Last Admin: 12/26/21 09:02 Dose: 3 ml Documented by: SARAH Labs CBC & Chem 7: 12/25/21 06:23 12/26/21 06:08 Labs: Laboratory Results - last 24 hr 12/25/21 12/25/21 12/25/21 11:05 16:00 19:38 Anion Gap Estim Creat Clear Calc Estimated GFR POC Glucose 198 H 272 H 283 H Random Glucose Calcium Phosphorus Magnesium 12/26/21 12/26/21 06:08 07:11 Anion Gap 10 L Estim Creat Clear Calc 119.3 Estimated GFR > 60 POC Glucose 187 H Random Glucose 183 H Calcium 9.2 Phosphorus 4.0 Magnesium 1.9 Assessment and Plan (1) Dysphagia: Status: Acute (2) Encephalopathy: Status: Acute (3) Suppression of immune system subtherapeutic: Status: Acute Plan 31-year-old type 2 diabetic morbidly obese female with a background of bipolar disorder and has autoimmune, IGA deficiecny, encephalitis and peripheral polyneuropathy for which she gets monthly IV IG and once yearly rituximab, was admitted for acute hypoxic respiratory failure due to covid, course was complciated by progressive AMS and agitation requiring intubation and ICU stay. extensive work up including EEG and LP did not revela specific diagnosis. she was eventually extubated after diuresis and dexmedetomide. she is now on room air, responding to commands, but not talking metabolic encephalopathy Could be secondary to agitated delerium, autoimmune or COVID encephalitis MRI repeated, no acute findings, Neurology to review images with Radiology Stable vitals but still nonverbal neuro appreciated, no evidence of seizure on EEG, to treat with IV IG IVIG protocol day 3 Recurrent redirection [facility] accepted the patient for transferred pending beds availability dysphagia [employer] follow up, keep NPO for now as she refuses to cooperate Continue PPN for the time being Nutritional consult Delirium , psychiatric disorder Related to polypharmacy, ICU related delirium, prolonged hospital stay Not taking her psychiatry medications psychiatry team re-evaluation pending Haldol ATC and p.r.n. after discussing with psychiatry team COVID-19 infection appears resolved, could still have COVID encephalitis keep on airborne isolation due to immunocompromised state DM insulin CRISPIN resolved hypernatremia resolved dvt prophylaxis lovenox Quality Stroke Does the patient have a stroke diagnosis?: No VTE Prior VTE?: No VTE Risk Level:: Medical - moderate - high VTE Device Contraindication: Treatment Not Indicated VTE Drug Contraindication: N/A - Med Ordered
--- NOTE | 2021-12-26 10:09 | MHC.CM.PN ---
Per MD, the plan is for Patient to transfer to [facility].
--- NOTE | 2021-12-26 10:49 | PM.PSYCN ---
History of Present Illness Date of Service: 12/26/21 Chief Complaint: covid Reason for Consult: Advice on treatment. Requesting physician: Lore Fernandez Discussed with referring provider: Yes Sources of Information: patient interviewed and chart reviewed HPI Narrative: Patient is a 31-year-old female, PMH multiple medical issues. Presented to ED with fever, tachycardia and hypoxia.? She was admitted for further management and treatment of acute hypoxic respiratory failure secondary to COVID-19.? Patient has a history of bipolar disorder, with multiple medications including bupropion, oxcarbazepine, quetiapine, and trazodone, in addition to multiple other meds. Psychiatry has seen her several times during this hospitalization, including myself on 12/08/21, and Dr. Reyez on 12/10/21. Psychiatry has been following her progress via chart reviews during her stay. Contacted again this morning by Dr. Fernandez. Patient has been expected by [facility], and is waiting placement. She was transferred to the ICU for part of her stay, and is now currently returned to [facility]. She has had a trial of lorazepam in November, to rule out catatonia. She also has been receiving IV Haldol for agitation/mood stabilization. She continues with limited response, unable to follow commands or voice her needs. Upon approach, she was lying in bed, able to make eye contact, but mute. No cogwheeling, no waxy flexibility noted. Patient lying in bed. Transporter was in room just prior to my entrance. While he was there, she appeared to be trembling, as if to have a coarse tremor. However, when transportor left the room, she appeared to relax and appeared to be resting comfortably. When this instructional writer approached her, she resumed the trembling. When I said her name, she did open her eyes and appeared to track me briefly in the room. She was nonverbal, with spontaneous breathing. She appeared to be anxious, but any further mental status exam was unobtainable due to AMS. Past Psychiatric History: Patient has outpatient psychiatrist, Dr. Daina Daley. Longstanding history bipolar disorder. Per chart review, patient had reported history of AH and paranoia. Medical Evaluation Reviewed: Yes Personal & Social History: Lives with both parents, who care for her full-time. Has 2 small children, who live with her and her parents. Review of Systems Review of Systems Yes Unobtainable due to mental status [facility] Medical History Acquired hypothyroidism Bipolar disorder Blurred vision, bilateral Clinical decompensation Diabetes mellitus with hyperglycemia Elevated vitamin B12 level Esophagitis with gastritis Essential hypertension Gait instability Gastric paresis Hx of Escherichia coli septicemia Hyperlipidemia Hypogammaglobulinemia Muscle weakness Obesity, morbid, BMI 40.0-49.9 Peripheral neuropathy Suppression of immune system subtherapeutic Vitamin D deficiency Surgical History Hx of section Hx of tooth extraction Family History: unknown Social History: Requires 04/06 care, lives with parents. Has 2 young sons that also live with her and her parents. Trauma History: unknown Diagnostics Vital Signs (24Hr): Vital Signs - 24 hr 12/25/21 11:03 12/25/21 15:06 12/25/21 19:10 Temperature 97.5 F 98.0 F 98.0 F Pulse Rate 109 H 80 78 Respiratory Rate 18 20 20 Blood Pressure 143/68 H 138/87 155/90 H Pulse Oximetry 95 90 L 99 12/26/21 00:00 12/26/21 04:00 12/26/21 07:09 Temperature 98.2 F 99 F 97.7 F Pulse Rate 121 H 107 H 106 H Respiratory Rate 18 18 18 Blood Pressure 113/59 L 144/90 H 137/92 H Pulse Oximetry 95 98 94 BMI result Body Mass Index 43.0 Labs Results: 12/25/21 06:23 12/26/21 06:08 Labs: Laboratory Results - last 48 hr 12/24/21 12/24/21 12/24/21 11:33 16:01 18:25 WBC RBC Hgb Hct MCV MCH MCHC RDW Plt Count MPV Absolute Nucleated RBC Nucleated RBC % (auto) Sodium Potassium Chloride Carbon Dioxide Anion Gap BUN Creatinine Estim Creat Clear Calc Estimated GFR POC Glucose 207 H 281 H Random Glucose Calcium Phosphorus Magnesium Total Bilirubin Direct Bilirubin AST ALT Alkaline Phosphatase Total Protein Albumin Influenza Type A (PCR) NEGATIVE Influenza Type B (PCR) NEGATIVE RSV RNA Qual (PCR) NEGATIVE SARS-CoV-2 RNA (RT-PCR) NEGATIVE 12/24/21 12/25/21 12/25/21 20:22 06:23 06:23 WBC 5.2 RBC 3.78 L Hgb 10.9 L Hct 33.6 L MCV 88.9 MCH 28.8 MCHC 32.4 RDW 17.2 H Plt Count 196 D MPV 10.7 Absolute Nucleated RBC 0.000 Nucleated RBC % (auto) 0.0 Sodium 135 Potassium 3.6 Chloride 106 Carbon Dioxide 22 Anion Gap 11 L BUN 20 H Creatinine 0.69 Estim Creat Clear Calc 119.3 Estimated GFR > 60 POC Glucose 257 H Random Glucose 197 H Calcium 9.2 Phosphorus Magnesium Total Bilirubin 0.5 Direct Bilirubin 0.3 AST 33 H ALT 41 H Alkaline Phosphatase 79 Total Protein 8.3 H Albumin 3.4 L Influenza Type A (PCR) Influenza Type B (PCR) RSV RNA Qual (PCR) SARS-CoV-2 RNA (RT-PCR) 12/25/21 12/25/21 12/25/21 06:23 07:23 11:05 WBC RBC Hgb Hct MCV MCH MCHC RDW Plt Count MPV Absolute Nucleated RBC Nucleated RBC % (auto) Sodium Potassium Chloride Carbon Dioxide Anion Gap BUN Creatinine Estim Creat Clear Calc Estimated GFR POC Glucose 195 H 198 H Random Glucose Calcium Phosphorus Magnesium Total Bilirubin Cancelled Direct Bilirubin Cancelled AST Cancelled ALT Cancelled Alkaline Phosphatase Cancelled Total Protein Cancelled Albumin Cancelled Influenza Type A (PCR) Influenza Type B (PCR) RSV RNA Qual (PCR) SARS-CoV-2 RNA (RT-PCR) 12/25/21 12/25/21 12/26/21 16:00 19:38 06:08 WBC RBC Hgb Hct MCV MCH MCHC RDW Plt Count MPV Absolute Nucleated RBC Nucleated RBC % (auto) Sodium 133 L Potassium 3.4 Chloride 105 Carbon Dioxide 21 L Anion Gap 10 L BUN 19 H Creatinine 0.69 Estim Creat Clear Calc 119.3 Estimated GFR > 60 POC Glucose 272 H 283 H Random Glucose 183 H Calcium 9.2 Phosphorus 4.0 Magnesium 1.9 Total Bilirubin Direct Bilirubin AST ALT Alkaline Phosphatase Total Protein Albumin Influenza Type A (PCR) Influenza Type B (PCR) RSV RNA Qual (PCR) SARS-CoV-2 RNA (RT-PCR) 12/26/21 07:11 WBC RBC Hgb Hct MCV MCH MCHC RDW Plt Count MPV Absolute Nucleated RBC Nucleated RBC % (auto) Sodium Potassium Chloride Carbon Dioxide Anion Gap BUN Creatinine Estim Creat Clear Calc Estimated GFR POC Glucose 187 H Random Glucose Calcium Phosphorus Magnesium Total Bilirubin Direct Bilirubin AST ALT Alkaline Phosphatase Total Protein Albumin Influenza Type A (PCR) Influenza Type B (PCR) RSV RNA Qual (PCR) SARS-CoV-2 RNA (RT-PCR) Imaging Radiology Impressions: ITS Impressions Chest X-Ray 11/29/21 11:47 IMPRESSION: Low lung volumes and new bilateral infiltrates. Chest CTA 11/30/21 14:13 IMPRESSION: Limited exam due to artifact from respiratory motion. No large or central pulmonary embolism. Low lung volumes and bilateral groundglass attenuation infiltrates compatible with Covid infection. Probable hepatosplenomegaly. VTE: negative KUB X-Ray 12/01/21 12:49 IMPRESSION: No evidence of bowel obstruction. Markedly distended bladder. Chest X-Ray 12/04/21 08:32 IMPRESSION: Low lung volumes and bilateral infiltrates similar to recent exams. Chest X-Ray 12/10/21 11:50 IMPRESSION: Hypoexpanded lungs without acute process. Chest X-Ray 12/10/21 12:54 IMPRESSION: Enteric tube in expected position. Brain MRI 12/10/21 14:36 IMPRESSION: 1. Suboptimal study due to patient motion artifact and habitus. 2. There are no acute bleeds or infarcts demonstrated on the available images. No masses are seen. The study redemonstrates abnormal FLAIR signal in the posterior thalami bilaterally, less extensive compared to the prior study. Chest X-Ray 12/10/21 23:00 IMPRESSION: Endotracheal tube terminating approximately 2 cm above the zuleyka. Right internal jugular central venous catheter terminates over the right atrium on the second image. This positioning in the atrium may be accentuated by the low lung volumes. Could consider partial retraction. Clear lungs. Abdomen/Pelvis CT 12/11/21 14:57 IMPRESSION: *Pulmonary infiltrates and subsegmental atelectasis developed at the lung bases bilaterally presumably pneumonia. *Circumferential wall thickening of the urinary bladder, suspect possible cystitis. There is a Kern catheter in place. *Excess amount of stool especially in the rectum suggests possible fecal impaction. *Abdomen otherwise is unremarkable. No evidence of bowel obstruction. No CT evidence of other intra-abdominal inflammatory process. *Small anterior abdominal wall hernia containing fat. Chest X-Ray 12/12/21 14:17 IMPRESSION: The endotracheal tube tip projects over the right mainstem bronchus and should be pulled back several centimeters. Volume loss to the left lung and increasing left lung atelectasis or infiltrate. Left jugular line tip is not well seen. This may project over the right atrium. Nasogastric tube projects over the stomach, tip not seen. Findings were communicated to nurse Jordana by telephone on 12/12/2021 and 3:07 PM. Chest X-Ray 12/13/21 07:15 IMPRESSION: Stable lines and catheters. Hypoventilated lungs with new patchy opacity in both upper lobes. No change in the left lower lobe atelectasis/infiltrate. Chest CT 12/13/21 17:06 IMPRESSION: Worsening pulmonary aeration with increased airspace opacities in the lower lungs, worsening hazy attenuation of the upper lobes, and new small bilateral pleural effusions. The endotracheal tube terminates at 1 cm above the zuleyka, similar since earlier today. Recommend repositioning. Chest X-Ray 12/16/21 08:00 IMPRESSION: -Support apparatus appears stable. -Hypoinflated lungs without lobar consolidation. Brain MRI 12/20/21 09:54 IMPRESSION: Exam is technically limited by artifact. No acute infarcts. No definite significant intracranial findings though assessment is limited. Mental Status Exam Mental Status Exam Narrative: Could not obtain due to AMS. Did appear to be trembling. Nonverbal. No cogwheeling, no waxy flexibility, remained in bed, sporadic eye movement. Patient Appearance: Fatigued Level of Consciousness: Obtunded Patient Behavior: Good Eye Contact (when name was called. ) Patient Cognition Impaired: Yes Ability to Follow Directions: Poor Speech Pattern: No Speech Abnormal Motor Activity Signs and Symptoms: Tremors (noted to have full body trembling when being spoken to. ) Medications Medications Current Medications Acetaminophen (Acetaminophen Supp 650 Mg Supp.Rect) 650 mg AR DAILY@1230 [facility] Stop: 12/29/21 12:29 Last Admin: 12/25/21 13:05 Dose: 650 mg Documented by: Diphenhydramine HCl (Diphenhydramine Hcl 50 Mg/Ml Vial) 25 mg IVPUSH DAILY@1230 [facility] Stop: 12/29/21 12:29 Last Admin: 12/25/21 13:09 Dose: 25 mg Documented by: Enoxaparin Sodium (Enoxaparin Sodium 40 Mg/0.4 Ml Syringe) 40 mg SUBCUT Q24H [facility] Last Admin: 12/26/21 09:01 Dose: 40 mg Documented by: Haloperidol Lactate (Haloperidol Lactate 5 Mg/Ml Vial) 1 mg IVPUSH Q4H PRN PRN Reason: anxiety/restlessness Last Admin: 12/24/21 18:31 Dose: 1 mg Documented by: Haloperidol Lactate (Haloperidol Lactate 5 Mg/Ml Vial) 1 mg IVPUSH Q6H [facility] Last Admin: 12/26/21 05:31 Dose: 1 mg Documented by: Sodium Chloride (Ns) 1,000 mls @ 500 mls/hr IVCONT DAILY@1100 [facility] Stop: 12/28/21 12:59 Last Infusion: 12/25/21 13:40 Dose: Infused Documented by: Immune Globulin (Gammagard 10%) 200 mls @ 48 mls/hr IV DAILY@1300 [facility] Stop: 12/28/21 17:09 Last Infusion: 12/25/21 18:03 Dose: Infused Documented by: Immune Globulin (Gammagard 10%) 200 mls @ 48 mls/hr IV DAILY@1710 [facility] Stop: 12/28/21 21:19 Last Infusion: 12/25/21 22:05 Dose: Infused Documented by: Amino Acids/Electrolytes/Dextrose (Clinimix E 4.25%-10%) 1,680 mls @ 70 mls/hr IV DAILY@1800 [facility] Stop: 12/26/21 17:59 Last Admin: 12/25/21 17:48 Dose: 70 mls/hr Documented by: Insulin Human Lispro (Insulin Lispro 100 Unit/Ml 3 Ml Vial) 0 unit SUBCUT QIDACHS [facility]; Protocol Last Admin: 12/26/21 09:02 Dose: 2 unit Documented by: Levothyroxine Sodium (Levothyroxine Sodium 100 Mcg/5 Ml Vial) 37.5 mcg IVPUSH DAILY [facility] Last Admin: 12/26/21 09:02 Dose: 37.5 mcg Documented by: Methylprednisolone Sodium Succinate (Methylprednisolone Sod Succ 40 Mg/Ml Vial) 40 mg IVPUSH DAILY@1230 [facility] Stop: 12/29/21 12:29 Last Admin: 12/25/21 13:09 Dose: 40 mg Documented by: Nystatin (Nystatin Powder 15 Gm Bottle) 1 appl TOPICAL BID [facility]; Protocol Last Admin: 12/26/21 09:02 Dose: 1 appl Documented by: Pharmacy Consult (Consult Rx Perform Med Rec) 1 each MISCELLANE ONCE PRN PRN Reason: Consult order Sodium Chloride (0.9 % Sodium Chloride Flush 3 Ml Syringe) 3 ml IVFLUSH QSHIFT [facility] Last Admin: 12/26/21 09:02 Dose: 3 ml Documented by: Allergies Allergies Allergy/AdvReac Type Severity Reaction Status Date / Time latex Allergy Unknown rash Verified 11/14/21 00:57 metoclopramide [From REGLAN] AdvReac Unknown INTERACTS Verified 11/14/21 00:57 W/ SEROQUEL Assessment & Plan Assessment & Plan (1) Encephalopathy, metabolic: Status: Acute Code(s): G93.41 - Metabolic encephalopathy Plan 31-year-old female with multiple complex medical issues, was admitted with COVID pneumonia, has experienced altered mental status, multiple complications. Patient has had multiple workups during this hospitalization, without revealing any specific diagnoses. She does have a history of bipolar disorder. She receives quetiapine 600 mg at bedtime as an outpatient, as well as Wellbutrin and trileptal. She has not received these here due to not taking oral medications, whether it be due to an either an inability to swallow, or a refusal to take at some point. She has had a trial of lorazepam, as well as receiving p.r.n. IV Haldol. Both meds appear to have not improved mental status. She has not been receiving any serotonergic agents, does not appear to be serotonin syndrome at this time. Could trial IV lorazepam to rule out a catatonic state. RECOMMEND: Try Lorazepam 1mg IV TID scheduled. Thank you for this consultation. I have shared this information with Dr. Lore Fernandez, via electronic messaging. I spent minutes with the patient and/or on the patient floor today, greater than?50% of which was spent counseling/coordinating care.
--- NOTE | 2021-12-26 11:03 | MHC.CLN ---
F/U PT CONTINUES TO RECEIVE PPN D10 AA4.25 AT 70ML/HR PROVIDES 857KCALS, 71G PROTEIN (1.2G/KG) DISCUSSED WITH PHARMACY MANAGER TRAINING CONTINUES TO ATTEMPT TO WORK WITH PT TO DETERMINE SAFE FOOD CONSISTENCY, HOWEVER PT CONTINUES TO REFUSE HOLDING LIPIDS AT THIS TIME; PENDING TRIG LEVEL REPLETE LYTES NEEDED
[2021-12-26 11:07] LABS: Triglycerides 259 mg/dL
[2021-12-26 11:18] LABS: Glucose, Whole Blood 202 mg/dL (60-115)
[2021-12-26] MEDS: LORazepam 2 MG/ML VIAL 1 MG IVPUSH ×2 (12:00→17:28)
[2021-12-26] MEDS: 0.9 % Sodium Chloride 1,000 ML 500 ML IVCONT (12:01)
[2021-12-26] MEDS: diphenhydrAMINE HCL 50 MG/ML VIAL 25 MG IVPUSH (13:14)
[2021-12-26] MEDS: methylPREDNISolone Sod Succ 40 MG/ML VIAL IVPUSH (13:14)
[2021-12-26] MEDS: Acetaminophen Supp 650 MG SUPP.RECT PR (13:15)
--- NOTE | 2021-12-26 13:42 | MHC.SLORD ---
Speech Language Pathology Order Status: Attempted to see patient this morning for bedside swallow eval. Patient did not follow commands or open her mouth to accept PO. Per chart review, patient to transfer to [facility] pending bed availability.
[2021-12-26] MEDS: Immun Glob G(IgG)/Gly/IGA Ov50 200 ML IV ×2 (14:04→17:29)
[2021-12-26 16:54] LABS: Glucose, Whole Blood 248 mg/dL (60-115)
[2021-12-26 20:57] LABS: Glucose, Whole Blood 219 mg/dL (60-115)
[2021-12-27] MEDS: 0.9 % Sodium Chloride Flush 3 ML SYRINGE IVFLUSH ×4 (00:31→20:48)
[2021-12-27] MEDS: Haloperidol Lactate 5 MG/ML VIAL 1 MG IVPUSH ×3 (00:31→11:35)
[2021-12-27] MEDS: LORazepam 2 MG/ML VIAL 1 MG IVPUSH ×4 (00:32→23:10)
[2021-12-27 03:45] VITALS: BP 119/86; PULSE 118; RESP 18; TEMP 36.4; O2SAT 98
[2021-12-27 06:49] LABS: Hematocrit 33.1 % (37.0-47.0); Hemoglobin 10.9 g/dl (12.0-16.0); Mean Corpuscular HGB Conc 32.9 g/dl (31.0-35.0); Mean Corpuscular Hemoglobin 29.3 pg (27.0-33.0); Mean Platelet Volume 10.7 fL (9.4-12.3); Platelet Count 168 X10*3/uL (160-400); Red Blood Count 3.72 X10*6/uL (4.20-5.50); White Blood Count 4.4 X10*3/uL (4.8-10.8)
[2021-12-27 07:14] LABS: Anion Gap 10 (12-20); Blood Urea Nitrogen 20 mg/dL (9-16); Calcium 9.1 mg/dL (8.4-10.2); Carbon Dioxide 22 mmol/L (22-29); Chloride 104 mmol/L (96-108); Creatinine Clr Calc Pharmacy 119.3; Estimated Glomerular Filt Rate > 60; Glucose Random 158 mg/dL (60-115); Potassium 3.3 mmol/L (3.3-5.1); Sodium 133 mmol/L (135-145)
[2021-12-27 07:26] LABS: Glucose, Whole Blood 157 mg/dL (60-115)
[2021-12-27 07:37] VITALS: BP 129/81; PULSE 108; RESP 20; O2SAT 97
[2021-12-27] MEDS: Insulin Lispro 100 UNIT/ML 3 ML VIAL SUBCUT ×4 (08:22→20:47)
[2021-12-27] MEDS: Enoxaparin Sodium 40 MG/0.4 ML SYRINGE SUBCUT (08:23)
[2021-12-27] MEDS: Nystatin Powder 15 GM BOTTLE 1 APPL TOPICAL ×2 (08:23→20:48)
[2021-12-27] MEDS: Levothyroxine Sodium 100 MCG/5 ML VIAL 37.5 MCG IVPUSH (08:23)
--- NOTE | 2021-12-27 10:01 | MHC.CLN ---
F/U PT CONTINUES TO RECEIVE PPN D10 AA4.25 AT 70ML/HR PROVIDES 857KCALS, 71G PROTEIN (1.2G/KG) DISCUSSED WITH PHARMACY COMMUNITY DEVELOPMENT PLANNER CONTINUES TO ATTEMPT TO WORK WITH PT TO DETERMINE SAFE FOOD CONSISTENCY, HOWEVER PT CONTINUES TO REFUSE HOLDING LIPIDS AT THIS TIME D/T ELEVATED TRIG LEVEL REPLETE LYTES NEEDED
[2021-12-27 10:59] LABS: Glucose, Whole Blood 174 mg/dL (60-115)
[2021-12-27 11:16] VITALS: BP 119/62; PULSE 134; RESP 20; TEMP 36.6; O2SAT 96
--- NOTE | 2021-12-27 11:23 | MHC.SLORD ---
Speech Language Pathology Order Status: Attempted again today X2. In a.m. Pt was asleep. At mid-day pt still sleeping but roused when head of bed raised, kept eye shut but eventually opened eyes and made limited eye contact. Attempted to give Pt oral care, Pt kept mouth tightly shut. Attempted to tempt Pt to clear lips w/ smear of pudding, Pt did not respond to this today, resulting in pudding being removed/cleaned from lips. Pt continues not-verbal, not responding to directions or attempts at communication. Will continue to attempt assessment while PT awaits transfer to [facility] [place].
[2021-12-27] MEDS: methylPREDNISolone Sod Succ 40 MG/ML VIAL IVPUSH (11:35)
[2021-12-27] MEDS: diphenhydrAMINE HCL 50 MG/ML VIAL 25 MG IVPUSH ×2 (11:36→16:34)
[2021-12-27] MEDS: Acetaminophen Supp 650 MG SUPP.RECT PR (11:39)
[2021-12-27 11:50] LABS: Phosphorus 4.2 mg/dL (2.7-4.5)
--- NOTE | 2021-12-27 12:00 | P.PNIM_ITS ---
Subjective Subjective Date of Service: 12/27/21 Interval History: the patient was seen and evaluated this morning Laying in bed, more sleepy, less tremor S while sleep no significant changes over the last few days open eyes and response to calling her name but not following commands or making eye contact Refusing to eat or drink Day 4 of IV IG No reported other overnight events. Systemic review: Unable to provide any meaningful answers, nonverbal Physical Exam Vital Signs: Vital Signs: Last Vital Signs Temp 97.9 F 12/27/21 11:16 Pulse 134 H 12/27/21 11:16 Resp 20 12/27/21 11:16 BP 119/62 12/27/21 11:16 Pulse Ox 96 12/27/21 11:16 Oxygen Flow Rate 4 11/29/21 11:52 BMI result Body Mass Index 43.0 Const: Other: General - alert with verbal stimulation appears mildly anxious, having tremors mainly when someone is around but tremors almost gone when she is sleeping Cardiovascular - S1S2, tachycardic Lungs - no distress, chest wall moving , on room air Abdomen - soft, non-tender, no rebound or guarding Skin, dry, has fungal infection in the falls for abdomen and axilla Extremities - no edema bilaterally Neuro - awake and alert with verbal stimulation, move upper extremities with significant tremors, does not follow command but can protect her face from her falling arm, bilateral lower extremity weakness, nonverbal Objective Data Active Medications Acetaminophen (Acetaminophen Supp 650 Mg Supp.Rect) 650 mg [place] DAILY@1230 [facility] Stop: 12/29/21 12:29 Last Admin: 12/27/21 11:39 Dose: 650 mg Documented by: ROYA Diphenhydramine HCl (Diphenhydramine Hcl 50 Mg/Ml Vial) 25 mg IVPUSH DAILY@1230 [facility] Stop: 12/29/21 12:29 Last Admin: 12/27/21 11:36 Dose: 25 mg Documented by: ROYA Enoxaparin Sodium (Enoxaparin Sodium 40 Mg/0.4 Ml Syringe) 40 mg SUBCUT Q24H [facility] Last Admin: 12/27/21 08:23 Dose: 40 mg Documented by: RYOA Haloperidol Lactate (Haloperidol Lactate 5 Mg/Ml Vial) 1 mg IVPUSH Q4H PRN PRN Reason: anxiety/restlessness Last Admin: 12/24/21 18:31 Dose: 1 mg Documented by: DARRICK Haloperidol Lactate (Haloperidol Lactate 5 Mg/Ml Vial) 1 mg IVPUSH Q6H [facility] Last Admin: 12/27/21 11:35 Dose: 1 mg Documented by: ROYA Immune Globulin (Gammagard 10%) 200 mls @ 48 mls/hr IV DAILY@1300 [facility] Stop: 12/28/21 17:09 Last Infusion: 12/26/21 18:21 Dose: 0 mls/hr Documented by: SARAH Immune Globulin (Gammagard 10%) 200 mls @ 48 mls/hr IV DAILY@1710 [facility] Stop: 12/28/21 21:19 Last Infusion: 12/26/21 21:50 Dose: 0 mls/hr Documented by: MARIPOSA Amino Acids/Electrolytes/Dextrose (Clinimix E 4.25%-10%) 1,680 mls @ 70 mls/hr IV DAILY@1800 [facility] Stop: 12/27/21 17:59 Last Admin: 12/26/21 18:00 Dose: 70 mls/hr Documented by: SARAH Multivitamins 10 ml/ Trace Metals 1 ml/ Amino Acids/Electrolytes 1,680 mls @ 70 mls/hr IV DAILY@1800 [facility] Stop: 12/28/21 17:59 Insulin Human Lispro (Insulin Lispro 100 Unit/Ml 3 Ml Vial) 0 unit SUBCUT QIDACHS [facility]; Protocol Last Admin: 12/27/21 11:38 Dose: 2 unit Documented by: ROYA Levothyroxine Sodium (Levothyroxine Sodium 100 Mcg/5 Ml Vial) 37.5 mcg IVPUSH DAILY [facility] Last Admin: 12/27/21 08:23 Dose: 37.5 mcg Documented by: ROYA Lorazepam (Lorazepam 2 Mg/Ml Vial) 1 mg IVPUSH QSHIFT [facility] Last Admin: 12/27/21 08:22 Dose: 1 mg Documented by: ROYA Methylprednisolone Sodium Succinate (Methylprednisolone Sod Succ 40 Mg/Ml Vial) 40 mg IVPUSH DAILY@1230 [facility] Stop: 12/29/21 12:29 Last Admin: 12/27/21 11:35 Dose: 40 mg Documented by: ROYA Nystatin (Nystatin Powder 15 Gm Bottle) 1 appl TOPICAL BID [facility]; Protocol Last Admin: 12/27/21 08:23 Dose: 1 appl Documented by: ROYA Pharmacy Consult (Consult Rx Perform Med Rec) 1 each MISCELLANE ONCE PRN PRN Reason: Consult order Sodium Chloride (0.9 % Sodium Chloride Flush 3 Ml Syringe) 3 ml IVFLUSH QSHIFT [facility] Last Admin: 12/27/21 08:23 Dose: 3 ml Documented by: ROYA Labs CBC & Chem 7: 12/27/21 06:26 12/27/21 06:26 Labs: Laboratory Results - last 24 hr 12/26/21 12/26/21 12/27/21 16:16 20:42 06:26 MCV 89.0 MCH 29.3 MCHC 32.9 RDW 17.0 H Plt Count 168 MPV 10.7 Absolute Nucleated RBC 0.000 Nucleated RBC % (auto) 0.0 Anion Gap Estim Creat Clear Calc Estimated GFR POC Glucose 248 H 219 H Random Glucose Calcium Phosphorus 12/27/21 12/27/21 12/27/21 06:26 07:16 10:52 MCV MCH MCHC RDW Plt Count MPV Absolute Nucleated RBC Nucleated RBC % (auto) Anion Gap 10 L Estim Creat Clear Calc 119.3 Estimated GFR > 60 POC Glucose 157 H 174 H Random Glucose 158 H Calcium 9.1 Phosphorus 4.2 Assessment and Plan (1) Tremor of unknown origin: Status: Acute (2) Dysphagia: Status: Acute (3) Encephalopathy: Status: Acute Plan 31-year-old type 2 diabetic morbidly obese female with a background of bipolar disorder and has autoimmune, IGA deficiecny, encephalitis and peripheral polyneuropathy for which she gets monthly IV IG and once yearly rituximab, was admitted for acute hypoxic respiratory failure due to covid, course was complciated by progressive AMS and agitation requiring intubation and ICU stay. extensive work up including EEG and LP did not revela specific diagnosis. she was eventually extubated after diuresis and dexmedetomide. she is now on room air, responding to commands, but not talking metabolic encephalopathy Could be secondary to agitated delerium, autoimmune or COVID encephalitis MRI repeated, no acute findings, Neurology to review images with Radiology Stable vitals but still nonverbal neuro appreciated, no evidence of seizure on EEG, to treat with IV IG IVIG protocol day 4 Recurrent redirection [facility] patient for transferred pending beds availability Delirium , psychiatric disorder Related to polypharmacy, ICU related delirium, prolonged hospital stay, other unknown etiologies Not taking her psychiatry medications Psychiatry team recommended adding ATC Ativan, Haldol ATC and p.r.n. dysphagia HOG DROPPER follow up, keep NPO for now as she refuses to cooperate Continue PPN for the time being COVID-19 infection appears resolved, could still have COVID encephalitis keep on airborne isolation due to immunocompromised state DM insulin CRISPIN resolved hypernatremia resolved dvt prophylaxis lovenox Quality Stroke Does the patient have a stroke diagnosis?: No VTE Prior VTE?: No VTE Risk Level:: Medical - moderate - high VTE Device Contraindication: Treatment Not Indicated VTE Drug Contraindication: N/A - Med Ordered
[2021-12-27 12:01] LABS: Magnesium 1.8 mg/dL (1.6-2.6)
[2021-12-27] MEDS: Immun Glob G(IgG)/Gly/IGA Ov50 200 ML IV ×2 (13:03→17:01)
[2021-12-27 14:55] LABS: INTERNATIONAL NORM RATIO 1.3 (0.9-1.1)
[2021-12-27 15:04] VITALS: BP 141/91; PULSE 132; RESP 20; TEMP 36.3; O2SAT 97
[2021-12-27 15:05] LABS: Lactic Acid 1.2 mmol/L (0.5-2.0)
[2021-12-27 15:10] LABS: Alanine Aminotransferase 66 U/L (0-31); Albumin Level 3.3 g/dL (3.5-5.0); Alkaline Phosphatase 92 U/L (39-117); Aspartate Amino Transferase 51 U/L (5-31); Bilirubin Direct 0.3 mg/dL (0.0-0.5); Bilirubin Total 0.6 mg/dL (0.0-1.0); Total Protein 9.6 g/dL (6.5-8.0)
[2021-12-27 16:16] LABS: Glucose, Whole Blood 351 mg/dL (60-115)
[2021-12-27 20:00] VITALS: BP 121/83; PULSE 143; RESP 22; TEMP 37.2; O2SAT 96
[2021-12-27 20:38] LABS: Glucose, Whole Blood 223 mg/dL (60-115)
[2021-12-27] MEDS: Valproic Acid (as Sodium Salt) 250 MG in Dextrose 5 % 50 ML 52.5 MG IV (20:47)
[2021-12-27 23:06] VITALS: BP 148/96; PULSE 116; RESP 20; TEMP 37.1; O2SAT 96
--- NOTE | 2021-12-27 23:16 | PC.NURSE ---
HR 120's-140's. Pt restless with tremors to upper ext's. Gave scheduled IV Ativan an hour early. Repositioned pt. HR down to 110's. Will continue to monitor.
[2021-12-28] MEDS: Valproic Acid (as Sodium Salt) 250 MG in Dextrose 5 % 50 ML 52.5 MG IV ×4 (02:28→21:49)
[2021-12-28] MEDS: Haloperidol Lactate 5 MG/ML VIAL 1 MG IVPUSH ×2 (02:28→06:41)
--- NOTE | 2021-12-28 02:41 | PC.NURSE ---
Pt's HR 140's. +fidgeting and tremors of UE's. Gave PRN IV Haldol. HR came down to 120's. Keppra as ordered. While giving meds, I was talking to the patient, explaining what I was giving and why. I asked her how she was doing and patient stated, good . I asked her if she knew where she was and she said [facility]. I told her she was right and explained her situation a little more to her, including current treatment plan. Pt had recently been repositioned. Will continue to monitor.
[2021-12-28 04:00] VITALS: BP 92/59; PULSE 140; RESP 22; TEMP 36.8; O2SAT 96
[2021-12-28 06:33] LABS: Hematocrit 35.6 % (37.0-47.0); Hemoglobin 11.5 g/dl (12.0-16.0); Mean Corpuscular HGB Conc 32.3 g/dl (31.0-35.0); Mean Corpuscular Hemoglobin 28.8 pg (27.0-33.0); Mean Corpuscular Volume 89.2 fL (80.0-98.0); Mean Platelet Volume 10.2 fL (9.4-12.3); Platelet Count 223 X10*3/uL (160-400); Red Blood Count 3.99 X10*6/uL (4.20-5.50); Red Cell Distribution Width 16.8 % (11.0-16.0); White Blood Count 7.2 X10*3/uL (4.8-10.8)
[2021-12-28 06:57] LABS: B Type Natriuretic Peptide 28 pg/mL (<100)
[2021-12-28 07:00] LABS: Alanine Aminotransferase 71 U/L (0-31); Albumin Level 3.6 g/dL (3.5-5.0); Alkaline Phosphatase 96 U/L (39-117); Aspartate Amino Transferase 47 U/L (5-31); Bilirubin Direct 0.3 mg/dL (0.0-0.5); Bilirubin Total 0.3 mg/dL (0.0-1.0); C Reactive Protein 0.13 mg/dL (< or = 0.50); Lactate Dehydrogenase 227 U/L (122-220)
[2021-12-28 07:01] LABS: Anion Gap 11 (12-20); Blood Urea Nitrogen 24 mg/dL (9-16); Calcium 9.8 mg/dL (8.4-10.2); Carbon Dioxide 22 mmol/L (22-29); Chloride 103 mmol/L (96-108); Creatinine Clr Calc Pharmacy 112.7; Estimated Glomerular Filt Rate > 60; Glucose Random 139 mg/dL (60-115); Potassium 3.9 mmol/L (3.3-5.1); Sodium 132 mmol/L (135-145)
[2021-12-28 07:21] VITALS: BP 141/66; PULSE 115; RESP 17; TEMP 36.8; O2SAT 97
[2021-12-28 07:34] LABS: Glucose, Whole Blood 192 mg/dL (60-115)
--- NOTE | 2021-12-28 08:21 | PM.NEUROCN ---
History of Present Illness Data of Consult Service Date: 12/28/21 Primary Care Provider: Lachelle Guerra MD HPI Reason for consult: Encephalopathy 31 years old woman with encephalopathy resulting in unresponsiveness and movement suggestive of seizure disorder for few weeks. Tentative diagnosis was either COVID encephalitis or autoimmune encephalitis or status epilepticus though 1 EEG did not reveal any seizure. Her CSF was clean that was somewhat not consistent with autoimmune encephalitis. IVIG treatment was started few days ago and yesterday she was loaded with valproic acid were suspicion of partial status epilepticus. We have treated this with Keppra before but she did not respond. [facility] Past Medical History Medical History Acquired hypothyroidism Bipolar disorder Blurred vision, bilateral Clinical decompensation Diabetes mellitus with hyperglycemia Elevated vitamin B12 level Esophagitis with gastritis Essential hypertension Gait instability Gastric paresis Hx of Escherichia coli septicemia Hyperlipidemia Hypogammaglobulinemia Muscle weakness Obesity, morbid, BMI 40.0-49.9 Peripheral neuropathy Suppression of immune system subtherapeutic Vitamin D deficiency Family History Family History Other Adopted Family history: reviewed and not pertinent Surgical History Surgical History Hx of section Hx of tooth extraction Social History Social History Household Members: Adopted Family Housing: Unknown / Unable to assess Alcohol intake: never Patient Tobacco Use Status: Former Tobacco user Second Hand Smoke Exposure: No service: No Current occupational status: disabled Gender identity: Female Meds Allergies Allergy/AdvReac Type Severity Reaction Status Date / Time latex Allergy Unknown rash Verified 11/14/21 00:57 metoclopramide [From REGLAN] AdvReac Unknown INTERACTS Verified 11/14/21 00:57 W/ SEROQUEL Active Medications: Current Medications Acetaminophen (Acetaminophen Supp 650 Mg Supp.Rect) 650 mg [place] DAILY@1230 [facility] Stop: 12/29/21 12:29 Last Admin: 12/27/21 11:39 Dose: 650 mg Documented by: Diphenhydramine HCl (Diphenhydramine Hcl 50 Mg/Ml Vial) 25 mg IVPUSH DAILY@1230 [facility] Stop: 12/29/21 12:29 Last Admin: 12/27/21 11:36 Dose: 25 mg Documented by: Enoxaparin Sodium (Enoxaparin Sodium 40 Mg/0.4 Ml Syringe) 40 mg SUBCUT Q24H [facility] Last Admin: 12/27/21 08:23 Dose: 40 mg Documented by: Haloperidol Lactate (Haloperidol Lactate 5 Mg/Ml Vial) 1 mg IVPUSH Q4H PRN PRN Reason: anxiety/restlessness Last Admin: 12/28/21 06:41 Dose: 1 mg Documented by: Immune Globulin (Gammagard 10%) 200 mls @ 48 mls/hr IV DAILY@1300 [facility] Stop: 12/28/21 17:09 Last Infusion: 12/27/21 17:03 Dose: Infused Documented by: Immune Globulin (Gammagard 10%) 200 mls @ 48 mls/hr IV DAILY@1710 [facility] Stop: 12/28/21 21:19 Last Infusion: 12/27/21 21:12 Dose: Infused Documented by: Multivitamins 10 ml/ Trace Metals 1 ml/ Amino Acids/Electrolytes/Dextrose 1,680 mls @ 70 mls/hr IV DAILY@1800 [facility] Stop: 12/28/21 17:59 Last Admin: 12/27/21 17:52 Dose: 70 mls/hr Documented by: Valproic Acid 250 mg/ Dextrose 52.5 mls @ 52.5 mls/hr IV Q6H [facility] Last Infusion: 12/28/21 03:28 Dose: Infused Documented by: Valproic Acid 1,000 mg/ (Dextrose) 60 mls @ 60 mls/hr IV ONCE [facility] Insulin Human Lispro (Insulin Lispro 100 Unit/Ml 3 Ml Vial) 0 unit SUBCUT QIDACHS [facility]; Protocol Last Admin: 12/27/21 20:47 Dose: 4 unit Documented by: Levothyroxine Sodium (Levothyroxine Sodium 100 Mcg/5 Ml Vial) 37.5 mcg IVPUSH DAILY [facility] Last Admin: 12/27/21 08:23 Dose: 37.5 mcg Documented by: Lorazepam (Lorazepam 2 Mg/Ml Vial) 1 mg IVPUSH QSHIFT [facility] Last Admin: 12/27/21 23:10 Dose: 1 mg Documented by: Methylprednisolone Sodium Succinate (Methylprednisolone Sod Succ 40 Mg/Ml Vial) 40 mg IVPUSH DAILY@1230 [facility] Stop: 12/29/21 12:29 Last Admin: 12/27/21 11:35 Dose: 40 mg Documented by: Nystatin (Nystatin Powder 15 Gm Bottle) 1 appl TOPICAL BID [facility]; Protocol Last Admin: 12/27/21 20:48 Dose: 1 appl Documented by: Pharmacy Consult (Consult Rx Perform Med Rec) 1 each MISCELLANE ONCE PRN PRN Reason: Consult order Sodium Chloride (0.9 % Sodium Chloride Flush 3 Ml Syringe) 3 ml IVFLUSH QSHIFT [facility] Last Admin: 12/27/21 20:48 Dose: 3 ml Documented by: Home Medications Medication Instructions Recorded Confirmed Last Taken Type bupropion HCl 100 mg tablet,12 hr 100 mg PO QAM 11/30/20 11/29/21 11/28/21 History sustained-release trazodone 100 mg tablet 100 mg PO BEDTIME 11/30/20 11/29/21 11/28/21 History cranberry 400 mg capsule 450 mg PO DAILY cap 03/22/21 11/29/21 11/28/21 History melatonin 3 mg tablet 6 mg PO DAILY 03/22/21 11/29/21 11/28/21 History multivitamin 1 tab PO DAILY 03/22/21 11/29/21 11/28/21 History pregabalin 300 mg capsule 300 mg PO BID cap 05/10/21 11/29/21 11/28/21 History rituximab 10 mg/mL 10 mg IV [id number] 08/11/21 11/29/21 Unknown History concentrate,intravenous oxcarbazepine 150 mg tablet 450 mg PO BID tab 08/18/21 11/29/21 11/28/21 History cholecalciferol (vitamin D3) 1,250 1,250 mcg PO MO 10/16/21 11/29/21 11/28/21 History mcg (50,000 unit) capsule chlorhexidine gluconate 0.12 % 15 ml PO BID 11/29/21 11/29/21 11/28/21 History mouthwash quetiapine 200 mg tablet 1 tab PO BEDTIME 11/29/21 11/29/21 11/28/21 History quetiapine 400 mg tablet 1 tab PO BEDTIME 11/29/21 11/29/21 11/28/21 History immun glob G 10 gram/100 450 ml SUBCUT Q4W 12/14/21 12/14/21 10/26/21 History mL(10%)-gly-IgA ov50 mcg/mL subcutaneous soln immun glob G 10 gram/100 500 ml SUBCUT Q4W 12/14/21 12/14/21 10/25/21 History mL(10%)-gly-IgA ov50 mcg/mL subcutaneous soln Physical Exam Vital Signs: Vital Signs: Last Vital Signs Temp 98.3 F 12/28/21 07:21 Pulse 115 H 12/28/21 07:21 Resp 17 12/28/21 07:21 BP 141/66 H 12/28/21 07:21 Pulse Ox 97 12/28/21 07:21 Oxygen Flow Rate 4 11/29/21 11:52 BMI result Body Mass Index 43.0 Neuro: Other: She was awake, made eye contact, followed simple commands, and said of word or 2. This was different from her exam for lost couple of weeks. She still was having generalized shaking movements. Results Labs CBC & Chem 7: 12/28/21 06:14 12/28/21 06:14 Labs: Short CBC 12/28/21 Range/Units 06:14 WBC 7.2 (4.8-10.8) X10*3/uL Hgb 11.5 L (12.0-16.0) g/dl Hct 35.6 L (37.0-47.0) % Plt Count 223 D (160-400) X10*3/uL BMP 12/28/21 06:14 Sodium 132 L Potassium 3.9 Chloride 103 Carbon Dioxide 22 BUN 24 H Creatinine 0.73 Calcium 9.8 D Cardiac Enzymes 12/27/21 Range/Units 14:37 Total Creatine Kinase 27 D (26-140) U/L Liver Function 12/27/21 12/28/21 Range/Units 14:37 06:14 Total Bilirubin 0.6 0.3 (0.0-1.0) mg/dL Direct Bilirubin 0.3 0.3 (0.0-0.5) mg/dL AST 51 H 47 H (5-31) U/L ALT 66 H 71 H (0-31) U/L Alkaline Phosphatase 92 96 (39-117) U/L Albumin 3.3 L 3.6 (3.5-5.0) g/dL Microbiology Microbiology Results: Microbiology 12/14/21 10:32 Bronchial Washings Nocardia Culture - Preliminary 12/16/21 13:04 Sputum - Suctioned Gram Stain - Final 12/16/21 13:04 Sputum - Suctioned Sputum Culture - Final 12/10/21 23:34 Spine Direct Acid Fast Bacilli Smear - Final 12/10/21 23:34 Spine Acid Fast Bacilli Culture & Smear - Preliminary 12/14/21 10:33 Bronchial Washings Gram Stain - Final 12/14/21 10:33 Bronchial Washings Routine Culture - Final 12/10/21 11:53 Blood - Subclavian Blood Culture - Final No growth after 5 days. 12/10/21 11:53 Blood - Subclavian Blood Culture - Final No growth after 5 days. 12/12/21 15:40 Sputum - Suctioned Gram Stain - Final 12/12/21 15:40 Sputum - Suctioned Sputum Culture - Final 12/10/21 23:34 Cerebrospinal Fluid Gram Stain - Final 12/10/21 23:34 Cerebrospinal Fluid CSF Examination - Final 12/10/21 23:34 Cerebrospinal Fluid Fluid Description - Final 12/10/21 23:34 Cerebrospinal Fluid CSF Culture - Final No growth after 3 days. 12/10/21 Unknown Urine Catheterized - Kern Catheter Urine Culture - Final 12/04/21 11:43 Blood - Venous Blood Culture - Final No growth after 5 days. 12/04/21 11:43 Blood - Venous Blood Culture - Final No growth after 5 days. 11/29/21 14:01 Blood - Venous Blood Culture - Final No growth after 5 days. 11/29/21 13:51 Blood - Venous Blood Culture - Final No growth after 5 days. 11/29/21 Unknown Urine clean catch - Urine ohara top Urine Culture - Final Assessment and Plan (1) Encephalopathy: Status: Acute 31 years old woman with encephalopathy of unclear precise etiology with suspicion of partial status epilepticus, COVID encephalitis or autoimmune encephalitis. After few days of IVIG and giving valproic acid yesterday her neurological examination has suddenly improved. Unlike before, she is awake, made eye contact said a few words and followed commands. This is remarkable improvement. My recommendation is to finish 5 day course of IVIG and continue valproic acid. I would suggest checking a valproic acid level today and shoot for level of around 75. At this time we should hold on any intervention such as PEG tube. I would also hold transferred to [facility] as it was planned before because of significant improvement. Procedures Date of Service Date of Service: 12/28/21
[2021-12-28] MEDS: Levothyroxine Sodium 100 MCG/5 ML VIAL 37.5 MCG IVPUSH (09:23)
[2021-12-28] MEDS: LORazepam 2 MG/ML VIAL 1 MG IVPUSH ×2 (09:23→16:30)
[2021-12-28] MEDS: Insulin Lispro 100 UNIT/ML 3 ML VIAL SUBCUT ×3 (09:24→17:39)
[2021-12-28] MEDS: 0.9 % Sodium Chloride Flush 3 ML SYRINGE IVFLUSH ×3 (09:25→21:49)
[2021-12-28 09:28] LABS: Valproate 22.2 mcg/mL (50.0-100.0)
[2021-12-28] MEDS: Enoxaparin Sodium 40 MG/0.4 ML SYRINGE SUBCUT (09:44)
--- NOTE | 2021-12-28 10:04 | MHC.CLN ---
F/U PT CONTINUES TO RECEIVE PPN D10 AA4.25 AT 70ML/HR PROVIDES 857KCALS, 71G PROTEIN (1.2G/KG) DISCUSSED WITH PHARMACY WEB USER EXPERIENCE STRATEGIST CONTINUES TO ATTEMPT TO WORK WITH PT TO DETERMINE SAFE FOOD CONSISTENCY, HOWEVER PT CONTINUES TO REFUSE RECOMMEND ADDING 10ML OF 20% LIPIDS TO PROVIDE AND ADDITIONAL 480KCALS (1337KCALS TOTAL; 22KCALS/KG BASED ON CMW)-CHECK TRIGS TOMORROW REPLETE LYTES NEEDED
[2021-12-28] MEDS: Nystatin Powder 15 GM BOTTLE 1 APPL TOPICAL ×2 (10:22→21:50)
[2021-12-28 11:13] VITALS: BP 132/85; PULSE 103; RESP 18; TEMP 36.4; O2SAT 99
[2021-12-28 11:34] LABS: Glucose, Whole Blood 204 mg/dL (60-115)
[2021-12-28 11:35] LABS: Magnesium 2.1 mg/dL (1.6-2.6); Phosphorus 4.8 mg/dL (2.7-4.5); Triglycerides 247 mg/dL
--- NOTE | 2021-12-28 11:44 | PC.NURSE ---
Skin assessment completed today. Patient has fungal rash in bilateral abdominal folds, bilateral groin, lower back and bilateral buttocks. Interdry applied in abdominal folds and groin and Sween 24 moisturizer cream to lower back and buttocks. All other wounds have healed which shows pink scarring. Nystatin powder under breast and armpits to keep dry.
--- NOTE | 2021-12-28 11:48 | MHC.SLORD ---
Speech Language Pathology Order Status: BODY ROLLING MACHINE TENDER attempted to see this patient for bedside dysphagia eval this morning- Patient sleeping and BODY ROLLING MACHINE TENDER was unable to wake patient with sternal rub and change in position. Will try again later.
[2021-12-28] MEDS: methylPREDNISolone Sod Succ 40 MG/ML VIAL IVPUSH (12:20)
[2021-12-28] MEDS: diphenhydrAMINE HCL 50 MG/ML VIAL 25 MG IVPUSH (12:20)
[2021-12-28] MEDS: Acetaminophen Supp 650 MG SUPP.RECT PR (12:21)
--- NOTE | 2021-12-28 13:09 | HO.PM.IMPN ---
Subjective Subjective Date of Service: 12/28/21 Interval History: cc: sob interval history: I was unable to wake patient today, but she spoke with neurologist and RN earlier, followed commands, answered questions briefly Review of Systems Review of Systems: Yes Unobtainable due to mental condition Physical Exam Vital Signs: Vital Signs: Last Vital Signs Temp 97.6 F 12/28/21 11:13 Pulse 103 H 12/28/21 11:13 Resp 18 12/28/21 11:13 BP 132/85 12/28/21 11:13 Pulse Ox 99 12/28/21 11:13 Oxygen Flow Rate 4 11/29/21 11:52 BMI result Body Mass Index 43.0 General: sleepy, no acute distress Resp: CTA bilateral, no accessory muscles used CVS: S1,S2,RRR GI: soft, non tender, non distended Neuro: sleepy Psych: was talking to RN and neuro skin: palpable purpura buttocks, skin folds Objective Data Active Medications Acetaminophen (Acetaminophen Supp 650 Mg Supp.Rect) 650 mg [place] DAILY@1230 [facility] Stop: 12/29/21 12:29 Last Admin: 12/28/21 12:21 Dose: 650 mg Documented by: YING Diphenhydramine HCl (Diphenhydramine Hcl 50 Mg/Ml Vial) 25 mg IVPUSH DAILY@1230 [facility] Stop: 12/29/21 12:29 Last Admin: 12/28/21 12:20 Dose: 25 mg Documented by: YING Enoxaparin Sodium (Enoxaparin Sodium 40 Mg/0.4 Ml Syringe) 40 mg SUBCUT Q24H [facility] Last Admin: 12/28/21 09:44 Dose: 40 mg Documented by: YING Haloperidol Lactate (Haloperidol Lactate 5 Mg/Ml Vial) 1 mg IVPUSH Q4H PRN PRN Reason: anxiety/restlessness Last Admin: 12/28/21 06:41 Dose: 1 mg Documented by: FELIZ Immune Globulin (Gammagard 10%) 200 mls @ 48 mls/hr IV DAILY@1300 [facility] Stop: 12/28/21 17:09 Last Infusion: 12/27/21 17:03 Dose: 0 mls/hr Documented by: ROYA Immune Globulin (Gammagard 10%) 200 mls @ 48 mls/hr IV DAILY@1710 [facility] Stop: 12/28/21 21:19 Last Infusion: 12/27/21 21:12 Dose: 0 mls/hr Documented by: FELIZ Multivitamins 10 ml/ Trace Metals 1 ml/ Amino Acids/Electrolytes/Dextrose 1,680 mls @ 70 mls/hr IV DAILY@1800 [facility] Stop: 12/28/21 17:59 Last Admin: 12/27/21 17:52 Dose: 70 mls/hr Documented by: ROYA Valproic Acid 250 mg/ Dextrose 52.5 mls @ 52.5 mls/hr IV Q6H [facility] Last Infusion: 12/28/21 12:31 Dose: 0 mls/hr Documented by: YING Valproic Acid 1,000 mg/ (Dextrose) 60 mls @ 60 mls/hr IV ONCE [facility] Potassium Chloride 60 meq/Sodium Chloride 80 meq/Magnesium Sulfate 10 meq/Calcium Gluconate 9.3 meq/Amino Acids/Electrolytes/Dextrose 1,680 mls @ 70 mls/hr IVCONT DAILY@1800 [facility] Stop: 12/29/21 17:59 Fat Emulsion Intravenous (Intralipid) 120 mls @ 10 mls/hr IVCONT BID@0600,1800 [facility] Stop: 12/29/21 17:59 Insulin Human Lispro (Insulin Lispro 100 Unit/Ml 3 Ml Vial) 0 unit SUBCUT QIDACHS [facility]; Protocol Last Admin: 12/28/21 12:22 Dose: 4 unit Documented by: YING Levothyroxine Sodium (Levothyroxine Sodium 100 Mcg/5 Ml Vial) 37.5 mcg IVPUSH DAILY [facility] Last Admin: 12/28/21 09:23 Dose: 37.5 mcg Documented by: YING Lorazepam (Lorazepam 2 Mg/Ml Vial) 1 mg IVPUSH QSHIFT [facility] Last Admin: 12/28/21 09:23 Dose: 1 mg Documented by: YING Methylprednisolone Sodium Succinate (Methylprednisolone Sod Succ 40 Mg/Ml Vial) 40 mg IVPUSH DAILY@1230 [facility] Stop: 12/29/21 12:29 Last Admin: 12/28/21 12:20 Dose: 40 mg Documented by: YING Nystatin (Nystatin Powder 15 Gm Bottle) 1 appl TOPICAL BID [facility]; Protocol Last Admin: 12/28/21 10:22 Dose: 1 appl Documented by: YING Pharmacy Consult (Consult Rx Perform Med Rec) 1 each MISCELLANE ONCE PRN PRN Reason: Consult order Sodium Chloride (0.9 % Sodium Chloride Flush 3 Ml Syringe) 3 ml IVFLUSH QSHIFT [facility] Last Admin: 12/28/21 09:25 Dose: 3 ml Documented by: YING Labs CBC & Chem 7: 12/28/21 06:14 12/28/21 06:14 Labs: Laboratory Results - last 24 hr 12/27/21 12/27/21 12/27/21 14:37 14:37 14:37 MCV MCH MCHC RDW Plt Count MPV Absolute Nucleated RBC Nucleated RBC % (auto) PT 15.0 H INR 1.3 H Anion Gap Estim Creat Clear Calc Estimated GFR POC Glucose Random Glucose Lactic Acid 1.2 Calcium Phosphorus Magnesium Total Bilirubin 0.6 Direct Bilirubin 0.3 AST 51 H ALT 66 H Alkaline Phosphatase 92 Lactate Dehydrogenase Total Creatine Kinase 27 D C-Reactive Protein B-Natriuretic Peptide Total Protein 9.6 H Albumin 3.3 L Triglycerides Valproic Acid 12/27/21 12/27/21 12/28/21 16:07 20:28 06:14 MCV 89.2 MCH 28.8 MCHC 32.3 RDW 16.8 H Plt Count 223 D MPV 10.2 Absolute Nucleated RBC 0.000 Nucleated RBC % (auto) 0.0 PT INR Anion Gap Estim Creat Clear Calc Estimated GFR POC Glucose 351 H* 223 H Random Glucose Lactic Acid Calcium Phosphorus Magnesium Total Bilirubin Direct Bilirubin AST ALT Alkaline Phosphatase Lactate Dehydrogenase Total Creatine Kinase C-Reactive Protein B-Natriuretic Peptide Total Protein Albumin Triglycerides Valproic Acid 12/28/21 12/28/21 12/28/21 06:14 06:14 06:14 MCV MCH MCHC RDW Plt Count MPV Absolute Nucleated RBC Nucleated RBC % (auto) PT INR Anion Gap 11 L Estim Creat Clear Calc 112.7 Estimated GFR > 60 POC Glucose Random Glucose 139 H Lactic Acid Calcium 9.8 D Phosphorus 4.8 H Magnesium 2.1 Total Bilirubin 0.3 Direct Bilirubin 0.3 AST 47 H ALT 71 H Alkaline Phosphatase 96 Lactate Dehydrogenase 227 H Total Creatine Kinase C-Reactive Protein 0.13 B-Natriuretic Peptide 28 Total Protein 11.0 H Albumin 3.6 Triglycerides 247 Valproic Acid 02/12/28/21 12/28/21 07:24 08:50 11:18 MCV MCH MCHC RDW Plt Count MPV Absolute Nucleated RBC Nucleated RBC % (auto) PT INR Anion Gap Estim Creat Clear Calc Estimated GFR POC Glucose 192 H 204 H Random Glucose Lactic Acid Calcium Phosphorus Magnesium Total Bilirubin Direct Bilirubin AST ALT Alkaline Phosphatase Lactate Dehydrogenase Total Creatine Kinase C-Reactive Protein B-Natriuretic Peptide Total Protein Albumin Triglycerides Valproic Acid 22.2 L Assessment and Plan (1) Tremor of unknown origin: Status: Acute (2) Dysphagia: Status: Acute (3) Encephalopathy: Status: Acute Plan 31-year-old type 2 diabetic morbidly obese female with a background of bipolar disorder and has autoimmune, IGA deficiecny, encephalitis and peripheral polyneuropathy for which she gets monthly IV IG and once yearly rituximab, was admitted for acute hypoxic respiratory failure due to covid, course was complciated by progressive AMS and agitation requiring intubation and ICU stay. extensive work up including EEG and LP did not revela specific diagnosis. she was eventually extubated after diuresis and dexmedetomide. she is now on room air, responding to commands, but not hadnt been talking until am 12/28/21 metabolic encephalopathy Could be secondary to agitated delerium, autoimmune or COVID encephalitis vs seizure MRI repeated, no acute findings IVIG protocol day 5 Recurrent redirection [facility] accepted the patient for transferred pending beds availability - however, now noted improvement, will hold off on transfer started on depakote with noted improvement in speech, check level, aim for 75 conitnue tpn until cleared by speech, given improvement will hold off on gtube COVID-19 infection appears resolved, could still have COVID encephalitis pcr now negative and > 20 days out, can dc airborne precautions DM insulin CRISPIN resolved hypernatremia resolved dvt prophylaxis lovenox Quality Stroke Does the patient have a stroke diagnosis?: No VTE Prior VTE?: No VTE Risk Level:: Medical - moderate - high VTE Device Contraindication: Treatment Not Indicated VTE Drug Contraindication: N/A - Med Ordered
[2021-12-28] MEDS: Immun Glob G(IgG)/Gly/IGA Ov50 200 ML IV ×2 (14:20→20:18)
--- NOTE | 2021-12-28 15:18 | MHC.SL.SWA ---
Speech Pathologist Impression: Risk of Aspiration Oralpharyngeal Dysphagia Risk of Aspiration Due to: Lethargy Neurological Condition Poor PO Intake Dysphasia Diet Status: Upgrade Liquid Consistency and Strategies for Safe Swallow: Liquid Intake Recommendation: Pudding Thick Liquid Intake Strategies: Small Sips No Straws Liquids by Teaspoon Only Solid Food Consistency: Dietary Recommendations: Pureed (NDD1) Additional Modifications to Solid Foods: Bedside dysphagia evaluation completed this afternoon, with patient's mother present at bedside. Delayed oral phase, delayed swallow. Note reduced jaw movement, but patient is able to open her mouth wide enough to accept teaspoon bites. No overt s/s of aspiration and complete oral clearance with consumption of applesauce. Patient coughed on thin liquid. Conservatively recommend starting patient on single consistency PUREED solids (NDD1) and PUDDING THICK liquids by teaspoon only. Recommend small, frequent feedings as patient does fatigue and accepts small amount at a time. Patient requires total 1:1 ASSISTANCE for all PO intake, strict aspiration precautions. Patient must be awake and alert for PO intake. TELEMARKETING AGENT will re-evaluate tomorrow morning. Oral Medication Intake: TBD Compensatory Strategies and Precautions to be Taken for Safe Swallow: Sitting Upright (90 deg) No Straw Liquids from Spoon Small Bites and Sips Rate of Ingestion Change Oral Check Supervision While Eating and Drinking for Safe Swallow: Total Assistance Swallowing Recommended Treatments: Compens. Strategy Educat. Recommendation for Speech: Inpatient Speech Therapy Clinical Research Manager Clinican/Clinical Fellow: No Supervisory Statement: I have reviewed and agree with the student/clinical fellow's documentation: N/A Speech Language Pathologist: Savanna Tadeo M.A., CCC-TELEMARKETING AGENT
[2021-12-28 15:50] VITALS: BP 125/58; PULSE 120; RESP 18; TEMP 36.9; O2SAT 95
--- NOTE | 2021-12-28 15:50 | MHC.CM.PN ---
Female 31 DX Covid Transfer to [facility] on hold. Per MD rounds Patient is more alert today. DP Home with care provided by family. vs SNF via BLS. Dispo will be determined by recovery.
[2021-12-28 16:20] LABS: Glucose, Whole Blood 219 mg/dL (60-115)
[2021-12-28] MEDS: Fat Emulsions 20% 250 ML 10 ML IVCONT (18:40)
[2021-12-28 20:00] VITALS: BP 126/72; PULSE 120; RESP 18; TEMP 36.6; O2SAT 96
[2021-12-28 20:49] LABS: Glucose, Whole Blood 124 mg/dL (60-115)
[2021-12-28] MEDS: diphenhydrAMINE HCl 2 % Cream 28 GM TUBE 1 APPL TOPICAL (21:49)
[2021-12-29] VITALS: BP 133/73; PULSE 98; RESP 18; TEMP 37.9; O2SAT 96
[2021-12-29] MEDS: LORazepam 2 MG/ML VIAL 1 MG IVPUSH ×3 (01:45→16:31)
[2021-12-29] MEDS: Acetaminophen Supp 650 MG SUPP.RECT PR (01:45)
[2021-12-29] MEDS: Valproic Acid (as Sodium Salt) 250 MG in Dextrose 5 % 50 ML 52.5 MG IV (04:25)
[2021-12-29] MEDS: Fat Emulsions 20% 250 ML 10 ML IVCONT ×2 (06:06→17:48)
[2021-12-29 06:53] LABS: Hemoglobin 10.9 g/dl (12.0-16.0); Mean Corpuscular HGB Conc 32.1 g/dl (31.0-35.0); Mean Corpuscular Hemoglobin 28.8 pg (27.0-33.0); Mean Corpuscular Volume 89.7 fL (80.0-98.0); Mean Platelet Volume 10.3 fL (9.4-12.3); Platelet Count 195 X10*3/uL (160-400); Red Blood Count 3.79 X10*6/uL (4.20-5.50); Red Cell Distribution Width 17.2 % (11.0-16.0); White Blood Count 5.2 X10*3/uL (4.8-10.8)
[2021-12-29 07:14] LABS: Alanine Aminotransferase 55 U/L (0-31); Albumin Level 3.1 g/dL (3.5-5.0); Alkaline Phosphatase 79 U/L (39-117); Anion Gap 9 (12-20); Aspartate Amino Transferase 32 U/L (5-31); Bilirubin Direct 0.3 mg/dL (0.0-0.5); Bilirubin Total 0.5 mg/dL (0.0-1.0); Blood Urea Nitrogen 22 mg/dL (9-16); Calcium 9.2 mg/dL (8.4-10.2); Carbon Dioxide 19 mmol/L (22-29); Chloride 106 mmol/L (96-108); Creatinine Clr Calc Pharmacy 112.7; Estimated Glomerular Filt Rate > 60; Glucose Fasting 157 mg/dL (60-99); Potassium 3.3 mmol/L (3.3-5.1); Sodium 131 mmol/L (135-145); Total Protein 10.3 g/dL (6.5-8.0)
[2021-12-29 07:21] VITALS: BP 125/62; PULSE 107; RESP 20; TEMP 37.4; O2SAT 100
[2021-12-29 07:27] LABS: Glucose, Whole Blood 148 mg/dL (60-115)
[2021-12-29] MEDS: Levothyroxine Sodium 100 MCG/5 ML VIAL 37.5 MCG IVPUSH (08:08)
[2021-12-29] MEDS: Enoxaparin Sodium 40 MG/0.4 ML SYRINGE SUBCUT (08:09)
[2021-12-29] MEDS: 0.9 % Sodium Chloride Flush 3 ML SYRINGE IVFLUSH ×3 (08:09→20:56)
[2021-12-29] MEDS: Nystatin Powder 15 GM BOTTLE 1 APPL TOPICAL ×2 (08:10→20:56)
[2021-12-29] MEDS: diphenhydrAMINE HCl 2 % Cream 28 GM TUBE 1 APPL TOPICAL ×2 (08:10→20:56)
[2021-12-29 08:36] LABS: Magnesium 1.9 mg/dL (1.6-2.6); Phosphorus 3.9 mg/dL (2.7-4.5); Triglycerides 234 mg/dL
--- NOTE | 2021-12-29 10:08 | HO.PM.IMPN ---
Subjective Subjective Date of Service: 12/29/21 Interval History: cc: sob itnerval history: continues to improve, talking a bit, answering simple questions Respiratory Respiratory: Reports no additional respiratory complaints Gastrointestinal Gastrointestinal: Reports no additional gastrointestinal complaints Physical Exam Vital Signs: Vital Signs: Last Vital Signs Temp 99.3 F 12/29/21 07:21 Pulse 107 H 12/29/21 07:21 Resp 20 12/29/21 07:21 BP 125/62 12/29/21 07:21 Pulse Ox 100 12/29/21 07:21 Oxygen Flow Rate 4 11/29/21 11:52 BMI result Body Mass Index 43.0 General: alert, minimally verbal, no acute distress Resp:? CTA bilateral, no accessory muscles used CVS: S1,S2,RRR GI: soft, non tender, non distended Neuro: minimally verbal, but improved, tremor Psych:impaired insight, flat affect skin: palpable purpura buttocks, skin folds Objective Data Active Medications Acetaminophen (Acetaminophen Supp 650 Mg Supp.Rect) 650 mg AL DAILY@1230 [facility] Stop: 12/29/21 12:29 Last Admin: 12/28/21 12:21 Dose: 650 mg Documented by: YING Benztropine Mesylate (Benztropine Mesylate 2 Mg/2 Ml Vial) 1 mg IVPUSH BID [facility] Diphenhydramine HCl (Diphenhydramine Hcl 50 Mg/Ml Vial) 25 mg IVPUSH DAILY@1230 [facility] Stop: 12/29/21 12:29 Last Admin: 12/28/21 12:20 Dose: 25 mg Documented by: YING Enoxaparin Sodium (Enoxaparin Sodium 40 Mg/0.4 Ml Syringe) 40 mg SUBCUT Q24H [facility] Last Admin: 12/29/21 08:09 Dose: 40 mg Documented by: MELCHOR Haloperidol Lactate (Haloperidol Lactate 5 Mg/Ml Vial) 1 mg IVPUSH Q4H PRN PRN Reason: anxiety/restlessness Last Admin: 12/28/21 06:41 Dose: 1 mg Documented by: FELIZ Valproic Acid 1,000 mg/ (Dextrose) 60 mls @ 60 mls/hr IV ONCE [facility] Potassium Chloride 60 meq/Sodium Chloride 80 meq/Magnesium Sulfate 10 meq/Calcium Gluconate 9.3 meq/Amino Acids/Electrolytes/Dextrose 1,680 mls @ 70 mls/hr IVCONT DAILY@1800 [facility] Stop: 12/29/21 17:59 Last Admin: 12/28/21 18:40 Dose: 70 mls/hr Documented by: YING Fat Emulsion Intravenous (Intralipid) 120 mls @ 10 mls/hr IVCONT BID@0600,1800 [facility] Stop: 12/29/21 17:59 Last Admin: 12/29/21 06:06 Dose: 10 mls/hr Documented by: CHRISTOPH Valproic Acid 500 mg/ Dextrose 55 mls @ 52.5 mls/hr IV Q8H [facility] Insulin Human Lispro (Insulin Lispro 100 Unit/Ml 3 Ml Vial) 0 unit SUBCUT QIDACHS [facility]; Protocol Last Admin: 12/29/21 08:00 Dose: Not Given Documented by: MELCHOR Non-Admin Reason: No Insulin Coverage Levothyroxine Sodium (Levothyroxine Sodium 100 Mcg/5 Ml Vial) 37.5 mcg IVPUSH DAILY [facility] Last Admin: 12/29/21 08:08 Dose: 37.5 mcg Documented by: MELCHOR Lorazepam (Lorazepam 2 Mg/Ml Vial) [facility] Last Admin: 12/29/21 08:08 Dose: 1 mg Documented by: MELCHOR Methylprednisolone Sodium Succinate (Methylprednisolone Sod Succ 40 Mg/Ml Vial) 40 mg IVPUSH DAILY@1230 [facility] Stop: 12/29/21 12:29 Last Admin: 12/28/21 12:20 Dose: 40 mg Documented by: YING Nystatin (Nystatin Powder 15 Gm Bottle) 1 appl TOPICAL BID [facility]; Protocol Last Admin: 12/29/21 08:10 Dose: 1 appl Documented by: MELCHOR Pharmacy Consult (Consult Rx Perform Med Rec) 1 each MISCELLANE ONCE PRN PRN Reason: Consult order Sodium Chloride (0.9 % Sodium Chloride Flush 3 Ml Sy[facility]) [facility] Last Admin: 12/29/21 08:09 Dose: 3 ml Documented by: MELCHOR Zinc Acetate/Diphenhydramine (Diphenhydramine Hcl 2 % Cream 28 Gm Tube) 1 appl TOPICAL BID [facility]; Protocol Last Admin: 12/29/21 08:10 Dose: 1 appl Documented by: MELCHOR Labs CBC & Chem 7: 12/29/21 06:09 12/29/21 06:09 Labs: Laboratory Results - last 24 hr 12/28/21 12/28/21 12/28/21 06:14 11:18 16:12 MCV MCH MCHC RDW Plt Count MPV Absolute Nucleated RBC Nucleated RBC % (auto) Anion Gap Estim Creat Clear Calc Estimated GFR POC Glucose 204 H 219 H Fasting Glucose Calcium Phosphorus 4.8 H Magnesium 2.1 Total Bilirubin Direct Bilirubin AST ALT Alkaline Phosphatase Total Protein Albumin Triglycerides 247 12/28/21 12/29/21 12/29/21 20:35 06:09 06:09 MCV 89.7 MCH 28.8 MCHC 32.1 RDW 17.2 H Plt Count 195 MPV 10.3 Absolute Nucleated RBC 0.000 Nucleated RBC % (auto) 0.0 Anion Gap 9 L Estim Creat Clear Calc 112.7 Estimated GFR > 60 POC Glucose 124 H Fasting Glucose 157 H Calcium 9.2 D Phosphorus 3.9 Magnesium 1.9 Total Bilirubin 0.5 Direct Bilirubin 0.3 AST 32 H ALT 55 H Alkaline Phosphatase 79 Total Protein 10.3 H Albumin 3.1 L Triglycerides 234 12/29/21 07:14 MCV MCH MCHC RDW Plt Count MPV Absolute Nucleated RBC Nucleated RBC % (auto) Anion Gap Estim Creat Clear Calc Estimated GFR POC Glucose 148 H Fasting Glucose Calcium Phosphorus Magnesium Total Bilirubin Direct Bilirubin AST ALT Alkaline Phosphatase Total Protein Albumin Triglycerides Assessment and Plan (1) Tremor of unknown origin: Status: Acute (2) Dysphagia: Status: Acute (3) Encephalopathy: Status: Acute Plan 31-year-old type 2 diabetic morbidly obese female with a background of bipolar disorder and has autoimmune, IGA deficiecny, encephalitis and peripheral polyneuropathy for which she gets monthly IV IG and once yearly rituximab, was admitted for acute hypoxic respiratory failure due to covid, course was complciated by progressive AMS and agitation requiring intubation and ICU stay. extensive work up including EEG and LP did not revela specific diagnosis. she was eventually extubated after diuresis and dexmedetomide. she is now on room air, responding to commands, but not hadnt been talking until am 12/28/21 metabolic encephalopathy Could be secondary to agitated delerium, autoimmune or COVID encephalitis vs seizure MRI repeated, no acute findings IVIG completed Recurrent redirection [facility] accepted the patient for transferred pending beds availability started on depakote with noted improvement in speech, aim for level of 75, increased to 500mg tid added cogentin 1mg bid seen by ASSISTANT MANAGER QUALITY MANAGEMENT - started pureed with pudding thick liquids, but eating less than 25%, so will continue tpn for now purpuric rash - unclear when started, ? drug reaction, vs heat rash, vs autoimmune continue benadryl cream, monitor closely, if worsening, plan to change depakote to oxcarbazine COVID-19 infection appears resolved, could still have COVID encephalitis pcr now negative and > 20 days out, can dced airborne precautions DM insulin CRISPIN resolved hypernatremia resolved dvt prophylaxis lovenox Quality Stroke Does the patient have a stroke diagnosis?: No VTE Prior VTE?: No VTE Risk Level:: Medical - moderate - high VTE Device Contraindication: Treatment Not Indicated VTE Drug Contraindication: N/A - Med Ordered
[2021-12-29] MEDS: Benztropine Mesylate 2 MG/2 ML VIAL 1 MG IVPUSH ×2 (10:43→20:55)
[2021-12-29] MEDS: Valproic Acid (as Sodium Salt) 500 MG in Dextrose 5 % 50 ML 52.5 MG IV ×2 (10:43→17:43)
[2021-12-29 11:13] LABS: Glucose, Whole Blood 198 mg/dL (60-115)
--- NOTE | 2021-12-29 11:17 | PM.NEUROCN ---
History of Present Illness Data of Consult Service Date: 12/29/21 Primary Care Provider: Lachelle Guerra MD HPI Reason for consult: Encephalopathy 31 years old woman with encephalopathy with tentative diagnosis of COVID encephalopathy versus other immune encephalopathy versus partial complex seizure disorder resulting in or contributing to encephalopathy. At this time she was better than yesterday. There were no new symptoms. [facility] Past Medical History Medical History Acquired hypothyroidism Bipolar disorder Blurred vision, bilateral Clinical decompensation Diabetes mellitus with hyperglycemia Elevated vitamin B12 level Esophagitis with gastritis Essential hypertension Gait instability Gastric paresis Hx of Escherichia coli septicemia Hyperlipidemia Hypogammaglobulinemia Muscle weakness Obesity, morbid, BMI 40.0-49.9 Peripheral neuropathy Suppression of immune system subtherapeutic Vitamin D deficiency Family History Family History Other Adopted Family history: reviewed and not pertinent Surgical History Surgical History Hx of section Hx of tooth extraction Social History Social History Household Members: Adopted Family Housing: Unknown / Unable to assess Alcohol intake: never Patient Tobacco Use Status: Former Tobacco user Second Hand Smoke Exposure: No service: No Current occupational status: disabled Gender identity: Female Meds Allergies Allergy/AdvReac Type Severity Reaction Status Date / Time latex Allergy Unknown rash Verified 11/14/21 00:57 metoclopramide [From REGLAN] AdvReac Unknown INTERACTS Verified 11/14/21 00:57 W/ SEROQUEL Active Medications: Current Medications Acetaminophen (Acetaminophen Supp 650 Mg Supp.Rect) 650 mg ND DAILY@1230 [facility] Stop: 12/29/21 12:29 Last Admin: 12/28/21 12:21 Dose: 650 mg Documented by: Benztropine Mesylate (Benztropine Mesylate 2 Mg/2 Ml Vial) 1 mg IVPUSH BID [facility] Last Admin: 12/29/21 10:43 Dose: 1 mg Documented by: Diphenhydramine HCl (Diphenhydramine Hcl 50 Mg/Ml Vial) 25 mg IVPUSH DAILY@1230 [facility] Stop: 12/29/21 12:29 Last Admin: 12/28/21 12:20 Dose: 25 mg Documented by: Enoxaparin Sodium (Enoxaparin Sodium 40 Mg/0.4 Ml Syringe) 40 mg SUBCUT Q24H [facility] Last Admin: 12/29/21 08:09 Dose: 40 mg Documented by: Haloperidol Lactate (Haloperidol Lactate 5 Mg/Ml Vial) 1 mg IVPUSH Q4H PRN PRN Reason: anxiety/restlessness Last Admin: 12/28/21 06:41 Dose: 1 mg Documented by: Valproic Acid 1,000 mg/ (Dextrose) 60 mls @ 60 mls/hr IV ONCE [facility] Potassium Chloride 60 meq/Sodium Chloride 80 meq/Magnesium Sulfate 10 meq/Calcium Gluconate 9.3 meq/Amino Acids/Electrolytes/Dextrose 1,680 mls @ 70 mls/hr IVCONT DAILY@1800 [facility] Stop: 12/29/21 17:59 Last Admin: 12/28/21 18:40 Dose: 70 mls/hr Documented by: Fat Emulsion Intravenous (Intralipid) 120 mls @ 10 mls/hr IVCONT BID@0600,1800 [facility] Stop: 12/29/21 17:59 Last Admin: 12/29/21 06:06 Dose: 10 mls/hr Documented by: Valproic Acid 500 mg/ Dextrose 55 mls @ 52.5 mls/hr IV Q8H [facility] Last Admin: 12/29/21 10:43 Dose: 52.5 mls/hr Documented by: Insulin Human Lispro (Insulin Lispro 100 Unit/Ml 3 Ml Vial) 0 unit SUBCUT QIDACHS [facility]; Protocol Last Admin: 12/29/21 08:00 Dose: Not Given Documented by: Levothyroxine Sodium (Levothyroxine Sodium 100 Mcg/5 Ml Vial) 37.5 mcg IVPUSH DAILY [facility] Last Admin: 12/29/21 08:08 Dose: 37.5 mcg Documented by: Lorazepam (Lorazepam 2 Mg/Ml Vial) 1 mg IVPUSH QSHIFT [facility] Last Admin: 12/29/21 08:08 Dose: 1 mg Documented by: Methylprednisolone Sodium Succinate (Methylprednisolone Sod Succ 40 Mg/Ml Vial) 40 mg IVPUSH DAILY@1230 [facility] Stop: 12/29/21 12:29 Last Admin: 12/28/21 12:20 Dose: 40 mg Documented by: Nystatin (Nystatin Powder 15 Gm Bottle) 1 appl TOPICAL BID [facility]; Protocol Last Admin: 12/29/21 08:10 Dose: 1 appl Documented by: Pharmacy Consult (Consult Rx Perform Med Rec) 1 each MISCELLANE ONCE PRN PRN Reason: Consult order Sodium Chloride (0.9 % Sodium Chloride Flush 3 Ml Syringe) 3 ml IVFLUSH QSHIFT [facility] Last Admin: 12/29/21 08:09 Dose: 3 ml Documented by: Zinc Acetate/Diphenhydramine (Diphenhydramine Hcl 2 % Cream 28 Gm Tube) 1 appl TOPICAL BID [facility]; Protocol Last Admin: 12/29/21 08:10 Dose: 1 appl Documented by: Home Medications Medication Instructions Recorded Confirmed Last Taken Type bupropion HCl 100 mg tablet,12 hr 100 mg PO QAM 11/30/20 11/29/21 11/28/21 History sustained-release trazodone 100 mg tablet 100 mg PO BEDTIME 11/30/20 11/29/21 11/28/21 History cranberry 400 mg capsule 450 mg PO DAILY cap 03/22/21 11/29/21 11/28/21 History melatonin 3 mg tablet 6 mg PO DAILY 03/22/21 11/29/21 11/28/21 History multivitamin 1 tab PO DAILY 03/22/21 11/29/21 11/28/21 History pregabalin 300 mg capsule 300 mg PO BID cap 05/10/21 11/29/21 11/28/21 History rituximab 10 mg/mL 10 mg IV [id number] 08/11/21 11/29/21 Unknown History concentrate,intravenous oxcarbazepine 150 mg tablet 450 mg PO BID tab 08/18/21 11/29/21 11/28/21 History cholecalciferol (vitamin D3) 1,250 1,250 mcg PO MO 10/16/21 11/29/21 11/28/21 History mcg (50,000 unit) capsule chlorhexidine gluconate 0.12 % 15 ml PO BID 11/29/21 11/29/21 11/28/21 History mouthwash quetiapine 200 mg tablet 1 tab PO BEDTIME 11/29/21 11/29/21 11/28/21 History quetiapine 400 mg tablet 1 tab PO BEDTIME 11/29/21 11/29/21 11/28/21 History immun glob G 10 gram/100 450 ml SUBCUT Q4W 12/14/21 12/14/21 10/26/21 History mL(10%)-gly-IgA ov50 mcg/mL subcutaneous soln immun glob G 10 gram/100 500 ml SUBCUT Q4W 12/14/21 12/14/21 10/25/21 History mL(10%)-gly-IgA ov50 mcg/mL subcutaneous soln Physical Exam Vital Signs: Vital Signs: Last Vital Signs Temp 99.3 F 12/29/21 07:21 Pulse 107 H 12/29/21 07:21 Resp 20 12/29/21 07:21 BP 125/62 12/29/21 07:21 Pulse Ox 100 12/29/21 07:21 Oxygen Flow Rate 4 11/29/21 11:52 BMI result Body Mass Index 43.0 Neuro: Other: She was alert and awake made eye contact answer simple questions and followed simple commands. When I ask her if she was seeing in [place], she said yes. When I asked her when was the last time she saw her, she said yesterday. She was having dyskinetic movements of arms and legs. There was erythematous patchy rash on buttock area. Results Labs CBC & Chem 7: 12/29/21 06:09 12/29/21 06:09 Labs: Short CBC 12/29/21 Range/Units 06:09 WBC 5.2 (4.8-10.8) X10*3/uL Hgb 10.9 L (12.0-16.0) g/dl Hct 34.0 L (37.0-47.0) % Plt Count 195 (160-400) X10*3/uL BMP 12/29/21 06:09 Sodium 131 L Potassium 3.3 Chloride 106 Carbon Dioxide 19 L BUN 22 H Creatinine 0.73 Calcium 9.2 D Liver Function 12/29/21 Range/Units 06:09 Total Bilirubin 0.5 (0.0-1.0) mg/dL Direct Bilirubin 0.3 (0.0-0.5) mg/dL AST 32 H (5-31) U/L ALT 55 H (0-31) U/L Alkaline Phosphatase 79 (39-117) U/L Albumin 3.1 L (3.5-5.0) g/dL Microbiology Microbiology Results: Microbiology 12/14/21 10:32 Bronchial Washings Nocardia Culture - Preliminary 12/16/21 13:04 Sputum - Suctioned Gram Stain - Final 12/16/21 13:04 Sputum - Suctioned Sputum Culture - Final 12/10/21 23:34 Spine Direct Acid Fast Bacilli Smear - Final 12/10/21 23:34 Spine Acid Fast Bacilli Culture & Smear - Preliminary 12/14/21 10:33 Bronchial Washings Gram Stain - Final 12/14/21 10:33 Bronchial Washings Routine Culture - Final 12/10/21 11:53 Blood - Subclavian Blood Culture - Final No growth after 5 days. 12/10/21 11:53 Blood - Subclavian Blood Culture - Final No growth after 5 days. 12/12/21 15:40 Sputum - Suctioned Gram Stain - Final 12/12/21 15:40 Sputum - Suctioned Sputum Culture - Final 12/10/21 23:34 Cerebrospinal Fluid Gram Stain - Final 12/10/21 23:34 Cerebrospinal Fluid CSF Examination - Final 12/10/21 23:34 Cerebrospinal Fluid Fluid Description - Final 12/10/21 23:34 Cerebrospinal Fluid CSF Culture - Final No growth after 3 days. 12/10/21 Unknown Urine Catheterized - Kern Catheter Urine Culture - Final 12/04/21 11:43 Blood - Venous Blood Culture - Final No growth after 5 days. 12/04/21 11:43 Blood - Venous Blood Culture - Final No growth after 5 days. 11/29/21 14:01 Blood - Venous Blood Culture - Final No growth after 5 days. 11/29/21 13:51 Blood - Venous Blood Culture - Final No growth after 5 days. 11/29/21 Unknown Urine clean catch - Urine [place] top Urine Culture - Final Assessment and Plan (1) Encephalopathy: Status: Acute She has improved further. I would recommend continuing present line of treatment fen finishing IVIG course. I would change valproic acid or Depakote dose to 500 mg 3 times a day. If her rash worsens and there was no other explanation, I would recommend stopping Depakote and switching her back to oxcarbazepine that she had been taking before she came to hospital. I also would try benztropine 1 mg twice a day to see if we could control dyskinetic movements. I also recommend supplementing her with B complex vitamins thiamine folate, vitamin C and E. Procedures Date of Service Date of Service: 12/29/21
[2021-12-29] MEDS: Insulin Lispro 100 UNIT/ML 3 ML VIAL SUBCUT ×3 (11:45→20:55)
--- NOTE | 2021-12-29 11:55 | MHC.CLN ---
F/U CONFECTIONERY LABORATORY MANAGER ABLE TO EVAL AND RECOMMENDED PUREED WITH PUDDING THICK LIQ DIET PT ONLY CONSUMING </=25%; CONTINUE PPN PER MD UNTIL PO IMPROVES PT CONTINUES TO RECEIVE PPN D10 AA4.25 AT 70ML/HR WITH 10ML OF 20% LIPIDS PROVIDES 1337KCALS (22KCALS/KG BASED ON CMW), 71G PROTEIN (1.2G/KG) DISCUSSED WITH PHARMACY; CHECK TRIGS TOMORROW REPLETE LYTES NEEDED
[2021-12-29 11:57] LABS: IDNOW Serial# 55D5AD1C
[2021-12-29 11:58] LABS: COVID-19 Test Negative (Negative)
[2021-12-29 12:00] VITALS: BP 132/70; PULSE 111; RESP 20; TEMP 36.4; O2SAT 100
--- NOTE | 2021-12-29 12:04 | MHC.SL.SWA ---
Speech Pathologist Impression: Risk of Aspiration Oralpharyngeal Dysphagia Risk of Aspiration Due to: Lethargy Neurological Condition Poor PO Intake Dysphasia Diet Status: Upgrade Liquid Consistency and Strategies for Safe Swallow: Liquid Intake Recommendation: [employer] Thick Liquid Intake Strategies: Liquids by Teaspoon Only Solid Food Consistency: Dietary Recommendations: Pureed (NDD1) Additional Modifications to Solid Foods: Oral Medication Intake: NPO Compensatory Strategies and Precautions to be Taken for Safe Swallow: Sitting Upright (90 deg) No Straw Liquids from Spoon Supervision While Eating and Drinking for Safe Swallow: Total Supervision (1:1) Foods to Avoid: sticky consistencies. Swallowing Recommended Treatments: Compens. Strategy Educat. Recommendation for Speech: Inpatient Speech Therapy Comment: TAPE CUTTER attempted, but unable to evaluate patient 12/19-12/27, as patient was minimally responsive and refused to eat and drink until 12/28. Patient seen by neurologist 12/28 and displayed remarkable improvement. Neurologist reported neuro exam suddenly improved- Patient made eye contact, said few words, and followed commands. Recommended by neurology to hold on PEG tube placement and transfer to [facility]. Bedside dysphagia evaluation completed 12/28. Pt verbalizing more today, expressed that cold water felt good in her mouth, that she has difficulty opening mouth/jaw, and requested that head of bed be lowered after treatment. Pt was given tsp amounts of water, w/much of the water escaping mouth, w/Pt not opening mouth/jaw for bolus, but slurping liquid from spoon. Oral transit after bolus was introduced was wnl, swallow trigger present, pharyngeal phase wnl, no clinical signs of aspiration. Pt was able to manage nectar thick w/o spilling from mouth, still did not open mouth for spoon, slurped bolus, w/ normal oral transit, swallow trigger, w/ no clinic s/s aspiration. Similarly Pt indicated that she could not open mouth for tsp of puree, slurped consistency from spoon, w/residual on lips. Pt licked lips and propelled bolus orally wnl, w/ present swallow trigger and no clinical s/s aspiration. Recommend UPGRADE from Pudding Thick liquid to NECTAR thick by TSP only. Recommend continue to provide PT w/oral care including small sips by tsp of water if requested by PT. UPGRADE of liquid consistency entered by TAPE CUTTER in diet orders and sent via secure text to MD, Human Resources District Manager. Recommend small, frequent feedings as patient does fatigue and accepts small amount at a time. Patient requires total 1:1 ASSISTANCE for all PO intake, strict aspiration precautions. Patient must be awake and alert for PO intake. Frequency/Duration: Date Range for Service Req: Timeline to reassess: Concert Promoter Clinican/Clinical Fellow: No Supervisory Statement: I have reviewed and agree with the student/clinical fellow's documentation: N/A Speech Language Pathologist: Soha Boone M.A., CCC-TAPE CUTTER
[2021-12-29 15:23] VITALS: BP 116/70; PULSE 116; RESP 18; TEMP 36.9; O2SAT 98
[2021-12-29 16:18] LABS: Glucose, Whole Blood 178 mg/dL (60-115)
[2021-12-29 19:51] VITALS: BP 138/88; PULSE 114; RESP 18; TEMP 37.1; O2SAT 97
[2021-12-29 20:01] LABS: Glucose, Whole Blood 204 mg/dL (60-115)
[2021-12-29] MEDS: Haloperidol Lactate 5 MG/ML VIAL 1 MG IVPUSH (21:24)
[2021-12-29 23:12] VITALS: BP 132/71; PULSE 123; RESP 18; TEMP 35.7; O2SAT 93
[2021-12-30] VITALS (7 sets, daily range): BP systolic 122–140; BP diastolic 67–92; PULSE 89–141; RESP 18–20; TEMP 36–37.3; O2SAT 95–98
[2021-12-30] MEDS: Valproic Acid (as Sodium Salt) 500 MG in Dextrose 5 % 50 ML 52.5 MG IV ×3 (00:44→17:59)
[2021-12-30] MEDS: LORazepam 2 MG/ML VIAL 1 MG IVPUSH ×4 (00:44→23:47)
[2021-12-30] MEDS: Haloperidol Lactate 5 MG/ML VIAL 1 MG IVPUSH ×3 (05:06→19:09)
[2021-12-30] MEDS: Fat Emulsions 20% 250 ML 10 ML IVCONT ×2 (05:59→17:58)
[2021-12-30 07:31] LABS: Glucose, Whole Blood 192 mg/dL (60-115)
[2021-12-30] MEDS: Enoxaparin Sodium 40 MG/0.4 ML SYRINGE SUBCUT (08:33)
[2021-12-30] MEDS: Insulin Lispro 100 UNIT/ML 3 ML VIAL SUBCUT ×4 (08:34→21:11)
[2021-12-30] MEDS: 0.9 % Sodium Chloride Flush 3 ML SYRINGE IVFLUSH ×3 (08:34→23:47)
[2021-12-30] MEDS: Levothyroxine Sodium 100 MCG/5 ML VIAL 37.5 MCG IVPUSH (08:43)
[2021-12-30] MEDS: Benztropine Mesylate 2 MG/2 ML VIAL 1 MG IVPUSH ×2 (08:44→21:11)
[2021-12-30] MEDS: diphenhydrAMINE HCl 2 % Cream 28 GM TUBE 1 APPL TOPICAL ×2 (08:44→21:12)
[2021-12-30] MEDS: Nystatin Powder 15 GM BOTTLE 1 APPL TOPICAL ×2 (08:44→21:14)
--- NOTE | 2021-12-30 10:13 | HO.PM.IMPN ---
Subjective Subjective Date of Service: 12/30/21 Interval History: cc: sob interval history: agitated, wants to leave Review of Systems Review of Systems: Yes Unobtainable due to mental condition Physical Exam Vital Signs: Vital Signs: Last Vital Signs Temp 99.2 F 12/30/21 10:09 Pulse 141 H 12/30/21 07:50 Resp 20 12/30/21 07:50 BP 129/79 12/30/21 07:50 Pulse Ox 95 12/30/21 07:50 Oxygen Flow Rate 4 11/29/21 11:52 BMI result Body Mass Index 43.0 General: alert, minimally verbal, no acute distress Resp:? CTA bilateral, no accessory muscles used CVS: S1,S2,RRR GI: soft, non tender, non distended Neuro: minimally verbal, but improved, tremor Psych:impaired insight, flat affect skin: palpable purpura buttocks, skin folds Objective Data Active Medications Benztropine Mesylate (Benztropine Mesylate 2 Mg/2 Ml Vial) 1 mg IVPUSH BID [facility] Last Admin: 12/30/21 08:44 Dose: 1 mg Documented by: ISMAEL Enoxaparin Sodium (Enoxaparin Sodium 40 Mg/0.4 Ml Syringe) 40 mg SUBCUT Q24H [facility] Last Admin: 12/30/21 08:33 Dose: 40 mg Documented by: ISMAEL Haloperidol Lactate (Haloperidol Lactate 5 Mg/Ml Vial) 1 mg IVPUSH Q4H PRN PRN Reason: anxiety/restlessness Last Admin: 12/30/21 05:06 Dose: 1 mg Documented by: CHRISTOPH Valproic Acid 1,000 mg/ (Dextrose) 60 mls @ 60 mls/hr IV ONCE [facility] Valproic Acid 500 mg/ Dextrose 55 mls @ 52.5 mls/hr IV Q8H [facility] Last Infusion: 12/30/21 02:25 Dose: 0 mls/hr Documented by: CHRISTOPH Potassium Chloride 20 meq/Sodium Chloride 90 meq/Magnesium Sulfate 10 meq/Potassium Phosphate 30 mmol/Calcium Gluconate 9.3 meq/Multivitamins 10 ml/ Trace Metals 1 ml/ Amino Acids/Electrolytes/Dextrose 1,680 mls @ 70 mls/hr IVCONT DAILY@1800 [facility] Stop: 12/30/21 17:59 Last Admin: 12/29/21 17:48 Dose: 70 mls/hr Documented by: MELCHOR Fat Emulsion Intravenous (Intralipid) 120 mls @ 10 mls/hr IVCONT BID@0600,1800 [facility] Stop: 12/30/21 17:59 Last Admin: 12/30/21 05:59 Dose: 10 mls/hr Documented by: CHRISTOPH Insulin Human Lispro (Insulin Lispro 100 Unit/Ml 3 Ml Vial) 0 unit SUBCUT QIDACHS [facility]; Protocol Last Admin: 12/30/21 08:34 Dose: 2 unit Documented by: ISMAEL Levothyroxine Sodium (Levothyroxine Sodium 100 Mcg/5 Ml Vial) 37.5 mcg IVPUSH DAILY [facility] Last Admin: 12/30/21 08:43 Dose: 37.5 mcg Documented by: ISMAEL Lorazepam (Lorazepam 2 Mg/Ml Vial) [facility] Last Admin: 12/30/21 08:34 Dose: 1 mg Documented by: ISMAEL Nystatin (Nystatin Powder 15 Gm Bottle) 1 appl TOPICAL BID [facility]; Protocol Last Admin: 12/30/21 08:44 Dose: 1 appl Documented by: ISMAEL Pharmacy Consult (Consult Rx Perform Med Rec) 1 each MISCELLANE ONCE PRN PRN Reason: Consult order Sodium Chloride (0.9 % Sodium Chloride Flush 3 Ml Syringe) [facility] Last Admin: 12/30/21 08:34 Dose: 3 ml Documented by: ISMAEL Zinc Acetate/Diphenhydramine (Diphenhydramine Hcl 2 % Cream 28 Gm Tube) 1 appl TOPICAL BID [facility]; Protocol Last Admin: 12/30/21 08:44 Dose: 1 appl Documented by: ISMAEL Labs CBC & Chem 7: 12/29/21 06:09 12/29/21 06:09 Labs: Laboratory Results - last 24 hr 12/29/21 12/29/21 12/29/21 10:52 11:07 16:14 POC Glucose 198 H 178 H COVID-19 (NATASHA) Negative COVID-19 Clin Com See Note 12/29/21 12/30/21 19:53 07:09 POC Glucose 204 H 192 H COVID-19 (NATASHA) COVID-19 Clin Com Assessment and Plan (1) Tremor of unknown origin: Status: Acute (2) Dysphagia: Status: Acute (3) Encephalopathy: Status: Acute Plan 31-year-old type 2 diabetic morbidly obese female with a background of bipolar disorder and has autoimmune, IGA deficiecny, encephalitis and peripheral polyneuropathy for which she gets monthly IV IG and once yearly rituximab, was admitted for acute hypoxic respiratory failure due to covid, course was complciated by progressive AMS and agitation requiring intubation and ICU stay. extensive work up including EEG and LP did not revela specific diagnosis. she was eventually extubated after diuresis and dexmedetomide. she is now on room air, responding to commands, but not hadnt been talking until am 12/28/21 metabolic encephalopathy Could be secondary to agitated delerium, autoimmune or COVID encephalitis vs seizure MRI repeated, no acute findings IVIG completed Recurrent redirection [facility] accepted the patient for transferred pending beds availability started on depakote with noted improvement in speech, aim for level of 75, increased to 500mg tid added cogentin 1mg bid seen by [employer] -advanced further to pureed with nectar thick liquids, but eating less than 25%, so will continue tpn for now purpuric rash - unclear when started, ? drug reaction, vs heat rash, vs autoimmune, has not spread further continue benadryl cream, monitor closely, if worsening, plan to change depakote to oxcarbazine COVID-19 infection appears resolved, could still have COVID encephalitis pcr and antigen now negative and > 20 days out, dced airborne precautions DM insulin CRISPIN resolved hypernatremia resolved dvt prophylaxis lovenox Quality Stroke Does the patient have a stroke diagnosis?: No VTE Prior VTE?: No VTE Risk Level:: Medical - moderate - high VTE Device Contraindication: Treatment Not Indicated VTE Drug Contraindication: N/A - Med Ordered
--- NOTE | 2021-12-30 10:31 | MHC.SLORD ---
Speech Language Pathology Order Status: Pt has been refusing all po. Updated the board to indicate that she is offered an upgrade to nectar thick liquids
[2021-12-30 10:54] LABS: Glucose, Whole Blood 174 mg/dL (60-115)
[2021-12-30 14:17] LABS: Albumin Level 3.2 g/dL (3.5-5.0); Anion Gap 11 (12-20); Blood Urea Nitrogen 20 mg/dL (9-16); Calcium 9.3 mg/dL (8.4-10.2); Carbon Dioxide 19 mmol/L (22-29); Chloride 107 mmol/L (96-108); Creatinine Clr Calc Pharmacy 114.3; Estimated Glomerular Filt Rate > 60; Glucose Random 166 mg/dL (60-115); Magnesium 1.9 mg/dL (1.6-2.6); Phosphorus 3.9 mg/dL (2.7-4.5); Potassium 3.6 mmol/L (3.3-5.1); Sodium 133 mmol/L (135-145); Triglycerides 195 mg/dL
--- NOTE | 2021-12-30 14:22 | MHC.CLN ---
F/U PER DATA SME, PT IS REFUSING ALL PO TODAY DATA SME RECOMMENDED PUREED WITH NECTAR THICK LIQ DIET CONTINUE PPN PER MD UNTIL PO IMPROVES PT CONTINUES TO RECEIVE PPN D10 AA4.25 AT 70ML/HR WITH 10ML OF 20% LIPIDS PROVIDES 1337KCALS (22KCALS/KG BASED ON CMW), 71G PROTEIN (1.2G/KG) DISCUSSED WITH PHARMACY; LABS PENDING FOR TODAY REPLETE LYTES NEEDED
--- NOTE | 2021-12-30 15:11 | MHC.CM.PN ---
Female 31 DX Covid DP is to transfer to [facility]. The bed offer is pending availability. No available bed today. Patient will travel via ambulance
[2021-12-30 15:51] LABS: Glucose, Whole Blood 206 mg/dL (60-115)
[2021-12-30 19:46] LABS: Glucose, Whole Blood 161 mg/dL (60-115)
[2021-12-31] MEDS: Haloperidol Lactate 5 MG/ML VIAL 1 MG IVPUSH ×3 (01:35→13:06)
[2021-12-31] MEDS: Valproic Acid (as Sodium Salt) 500 MG in Dextrose 5 % 50 ML 52.5 MG IV ×3 (03:03→18:24)
[2021-12-31 04:00] VITALS: BP 149/58; PULSE 113; RESP 19; TEMP 36.4; O2SAT 99
[2021-12-31 06:52] LABS: Hematocrit 33.5 % (37.0-47.0); Hemoglobin 10.9 g/dl (12.0-16.0); Mean Corpuscular HGB Conc 32.5 g/dl (31.0-35.0); Mean Corpuscular Hemoglobin 29.2 pg (27.0-33.0); Mean Corpuscular Volume 89.8 fL (80.0-98.0); Mean Platelet Volume 10.5 fL (9.4-12.3); Platelet Count 175 X10*3/uL (160-400); Red Blood Count 3.73 X10*6/uL (4.20-5.50); Red Cell Distribution Width 16.4 % (11.0-16.0); White Blood Count 3.4 X10*3/uL (4.8-10.8)
[2021-12-31 07:12] LABS: Alanine Aminotransferase 39 U/L (0-31); Albumin Level 3.3 g/dL (3.5-5.0); Alkaline Phosphatase 75 U/L (39-117); Anion Gap 9 (12-20); Aspartate Amino Transferase 24 U/L (5-31); Bilirubin Direct 0.2 mg/dL (0.0-0.5); Bilirubin Total 0.4 mg/dL (0.0-1.0); Blood Urea Nitrogen 18 mg/dL (9-16); Calcium 9.2 mg/dL (8.4-10.2); Carbon Dioxide 18 mmol/L (22-29); Chloride 108 mmol/L (96-108); Creatinine Clr Calc Pharmacy 115.9; Estimated Glomerular Filt Rate > 60; Glucose Fasting 198 mg/dL (60-99); Potassium 3.3 mmol/L (3.3-5.1); Sodium 132 mmol/L (135-145); Total Protein 9.1 g/dL (6.5-8.0)
[2021-12-31 07:34] VITALS: BP 175/87; PULSE 125; RESP 20; TEMP 36.8; O2SAT 98
[2021-12-31] MEDS: LORazepam 2 MG/ML VIAL 1 MG IVPUSH ×2 (08:01→16:33)
[2021-12-31] MEDS: Fat Emulsions 20% 250 ML 10 ML IVCONT ×2 (08:01→18:22)
[2021-12-31] MEDS: Levothyroxine Sodium 100 MCG/5 ML VIAL 37.5 MCG IVPUSH (08:01)
[2021-12-31] MEDS: Enoxaparin Sodium 40 MG/0.4 ML SYRINGE SUBCUT (08:01)
[2021-12-31] MEDS: Benztropine Mesylate 2 MG/2 ML VIAL 1 MG IVPUSH ×2 (08:01→22:03)
[2021-12-31] MEDS: diphenhydrAMINE HCl 2 % Cream 28 GM TUBE 1 APPL TOPICAL ×2 (08:02→22:04)
[2021-12-31] MEDS: Nystatin Powder 15 GM BOTTLE 1 APPL TOPICAL ×2 (08:02→22:04)
[2021-12-31 08:19] LABS: Glucose, Whole Blood 188 mg/dL (60-115)
[2021-12-31] MEDS: Insulin Lispro 100 UNIT/ML 3 ML VIAL SUBCUT ×4 (09:26→22:03)
[2021-12-31 10:22] LABS: Magnesium 1.7 mg/dL (1.6-2.6); Phosphorus 4.1 mg/dL (2.7-4.5); Triglycerides 190 mg/dL
[2021-12-31 11:30] VITALS: BP 127/92; PULSE 102; RESP 18; TEMP 37.2; O2SAT 99
[2021-12-31 11:59] LABS: Glucose, Whole Blood 218 mg/dL (60-115)
--- NOTE | 2021-12-31 13:24 | HO.PM.IMPN ---
Subjective Subjective Date of Service: 12/31/21 Interval History: cc: sob itnerval history: talking more, calmer Cardiovascular Cardiovascular: Reports no additional cardiovascular complaints Respiratory Respiratory: Reports no additional respiratory complaints Physical Exam Vital Signs: Vital Signs: Last Vital Signs Temp 98.9 F 12/31/21 11:30 Pulse 102 H 12/31/21 11:30 Resp 18 12/31/21 11:30 BP 127/92 H 12/31/21 11:30 Pulse Ox 99 12/31/21 11:30 Oxygen Flow Rate 4 11/29/21 11:52 BMI result Body Mass Index 43.0 General: alert, minimally verbal, no acute distress Resp:? CTA bilateral, no accessory muscles used CVS: S1,S2,RRR GI: soft, non tender, non distended Neuro: minimally verbal, but improved, tremor Psych:impaired insight, flat affect skin: palpable purpura buttocks, skin folds Objective Data Active Medications Benztropine Mesylate (Benztropine Mesylate 2 Mg/2 Ml Vial) 1 mg IVPUSH BID [facility] Last Admin: 12/31/21 08:01 Dose: 1 mg Documented by: SARAH Enoxaparin Sodium (Enoxaparin Sodium 40 Mg/0.4 Ml Syringe) 40 mg SUBCUT Q24H [facility] Last Admin: 12/31/21 08:01 Dose: 40 mg Documented by: SARAH Haloperidol Lactate (Haloperidol Lactate 5 Mg/Ml Vial) 1 mg IVPUSH Q4H PRN PRN Reason: anxiety/restlessness Last Admin: 12/31/21 13:06 Dose: 1 mg Documented by: SARAH Valproic Acid 1,000 mg/ (Dextrose) 60 mls @ 60 mls/hr IV ONCE [facility] Valproic Acid 500 mg/ Dextrose 55 mls @ 52.5 mls/hr IV Q8H [facility] Last Infusion: 12/31/21 11:48 Dose: 0 mls/hr Documented by: SARAH Potassium Chloride 20 meq/Sodium Chloride 90 meq/Magnesium Sulfate 10 meq/Potassium Phosphate 30 mmol/Calcium Gluconate 9.3 meq/Amino Acids/Electrolytes/Dextrose 1,680 mls @ 70 mls/hr IVCONT DAILY@1800 [facility] Stop: 12/31/21 17:59 Last Admin: 12/30/21 17:59 Dose: 70 mls/hr Documented by: MAEGAN Fat Emulsion Intravenous (Intralipid) 120 mls @ 10 mls/hr IVCONT BID@0600,1800 [facility] Stop: 12/31/21 17:59 Last Admin: 12/31/21 08:01 Dose: 10 mls/hr Documented by: SARAH Potassium Chloride 20 meq/Sodium Chloride 90 meq/Magnesium Sulfate 12 meq/Potassium Phosphate 30 mmol/Calcium Gluconate 9.3 meq/Multivitamins 10 ml/ Trace Metals 1 ml/ Amino Acids/Electrolytes/Dextrose 1,680 mls @ 70 mls/hr IVCONT DAILY@1800 [facility] Stop: 01/01/22 17:59 Fat Emulsion Intravenous (Intralipid) 120 mls @ 10 mls/hr IVCONT BID@0600,1800 [facility] Stop: 01/01/22 17:59 Insulin Human Lispro (Insulin Lispro 100 Unit/Ml 3 Ml Vial) 0 unit SUBCUT QIDACHS [facility]; Protocol Last Admin: 12/31/21 12:15 Dose: 4 unit Documented by: SARAH Levothyroxine Sodium (Levothyroxine Sodium 100 Mcg/5 Ml Vial) 37.5 mcg IVPUSH DAILY [facility] Last Admin: 12/31/21 08:01 Dose: 37.5 mcg Documented by: SARAH Nystatin (Nystatin Powder 15 Gm Bottle) 1 appl TOPICAL BID [facility]; Protocol Last Admin: 12/31/21 08:02 Dose: 1 appl Documented by: SARAH Pharmacy Consult (Consult Rx Perform Med Rec) 1 each MISCELLANE ONCE PRN PRN Reason: Consult order Sodium Chloride (0.9 % Sodium Chloride Flush 3 Ml Syringe) 3 ml IVFLUSH QSHIFT [facility] Last Admin: 12/31/21 08:03 Dose: Not Given Documented by: SARAH Non-Admin Reason: IV Running Zinc Acetate/Diphenhydramine (Diphenhydramine Hcl 2 % Cream 28 Gm Tube) 1 appl TOPICAL BID [facility]; Protocol Last Admin: 12/31/21 08:02 Dose: 1 appl Documented by: SARAH Labs CBC & Chem 7: 12/31/21 05:55 12/31/21 05:55 Labs: Laboratory Results - last 24 hr 12/30/21 12/30/21 12/30/21 13:35 15:31 19:11 MCV MCH MCHC RDW Plt Count MPV Absolute Nucleated RBC Nucleated RBC % (auto) Anion Gap 11 L Estim Creat Clear Calc 114.3 Estimated GFR > 60 POC Glucose 206 H 161 H Random Glucose 166 H Fasting Glucose Calcium 9.3 Phosphorus 3.9 Magnesium 1.9 Total Bilirubin Direct Bilirubin AST ALT Alkaline Phosphatase Total Protein Albumin 3.2 L Triglycerides 195 12/31/21 12/31/21 12/31/21 05:55 05:55 07:38 MCV 89.8 MCH 29.2 MCHC 32.5 RDW 16.4 H Plt Count 175 MPV 10.5 Absolute Nucleated RBC 0.000 Nucleated RBC % (auto) 0.0 Anion Gap 9 L Estim Creat Clear Calc 115.9 Estimated GFR > 60 POC Glucose 188 H Random Glucose Fasting Glucose 198 H Calcium 9.2 Phosphorus 4.1 Magnesium 1.7 Total Bilirubin 0.4 Direct Bilirubin 0.2 AST 24 ALT 39 H Alkaline Phosphatase 75 Total Protein 9.1 H Albumin 3.3 L Triglycerides 190 12/31/21 11:34 MCV MCH MCHC RDW Plt Count MPV Absolute Nucleated RBC Nucleated RBC % (auto) Anion Gap Estim Creat Clear Calc Estimated GFR POC Glucose 218 H Random Glucose Fasting Glucose Calcium Phosphorus Magnesium Total Bilirubin Direct Bilirubin AST ALT Alkaline Phosphatase Total Protein Albumin Triglycerides Assessment and Plan (1) Tremor of unknown origin: Status: Acute (2) Dysphagia: Status: Acute (3) Encephalopathy: Status: Acute Plan 31-year-old type 2 diabetic morbidly obese female with a background of bipolar disorder and has autoimmune, IGA deficiecny, encephalitis and peripheral polyneuropathy for which she gets monthly IV IG and once yearly rituximab, was admitted for acute hypoxic respiratory failure due to covid, course was complciated by progressive AMS and agitation requiring intubation and ICU stay. extensive work up including EEG and LP did not revela specific diagnosis. she was eventually extubated after diuresis and dexmedetomide. she is now on room air, responding to commands, but not hadnt been talking until am 12/28/21 metabolic encephalopathy Could be secondary to agitated delerium, autoimmune or COVID encephalitis vs seizure MRI repeated, no acute findings IVIG completed Recurrent redirection [facility] accepted the patient for transferred pending beds availability started on depakote with noted improvement in speech, aim for level of 75, increased to 500mg tid added cogentin 1mg bid seen by PATIENT SITTER -advanced further to pureed with nectar thick liquids, but eating less than 25%, so will continue tpn for now ensure added purpuric rash - unclear when started, ? drug reaction, vs heat rash, vs autoimmune, has not spread further continue benadryl cream, monitor closely, if worsening, plan to change depakote to oxcarbazine COVID-19 infection appears resolved pcr and antigen now negative and > 20 days out, dced airborne precautions DM insulin CRISPIN resolved hypernatremia resolved dvt prophylaxis lovenox Quality Stroke Does the patient have a stroke diagnosis?: No VTE Prior VTE?: No VTE Risk Level:: Medical - moderate - high VTE Device Contraindication: Treatment Not Indicated VTE Drug Contraindication: N/A - Med Ordered
[2021-12-31 15:04] VITALS: PULSE 60; RESP 20; TEMP 36.7; O2SAT 99
[2021-12-31 16:08] LABS: Glucose, Whole Blood 211 mg/dL (60-115)
[2021-12-31] MEDS: Haloperidol Lactate 5 MG/ML VIAL 1 MG IV ×2 (18:22→23:46)
[2021-12-31 20:00] VITALS: BP 134/84; PULSE 119; RESP 16; TEMP 36.7; O2SAT 98
[2021-12-31 22:03] LABS: Glucose, Whole Blood 171 mg/dL (60-115)
[2021-12-31] MEDS: QUEtiapine Fumarate 50 MG TABLET 150 MG PO (22:04)
[2021-12-31] MEDS: Pregabalin 25 MG CAPSULE PO (22:04)
[2021-12-31] MEDS: 0.9 % Sodium Chloride Flush 3 ML SYRINGE IVFLUSH (22:05)
[2021-12-31 23:14] VITALS: BP 105/53; PULSE 118; RESP 18; TEMP 36.2; O2SAT 97
[2022-01-01] MEDS: Valproic Acid (as Sodium Salt) 500 MG in Dextrose 5 % 50 ML 52.5 MG IV ×3 (02:07→17:27)
[2022-01-01 07:15] VITALS: BP 114/73; PULSE 116; RESP 18; TEMP 36.3; O2SAT 99
[2022-01-01 07:20] LABS: Hematocrit 34.3 % (37.0-47.0); Hemoglobin 11.3 g/dl (12.0-16.0); Mean Corpuscular HGB Conc 32.9 g/dl (31.0-35.0); Mean Corpuscular Hemoglobin 29.8 pg (27.0-33.0); Mean Corpuscular Volume 90.5 fL (80.0-98.0); Mean Platelet Volume 11.1 fL (9.4-12.3); Platelet Count 162 X10*3/uL (160-400); Red Blood Count 3.79 X10*6/uL (4.20-5.50); Red Cell Distribution Width 16.3 % (11.0-16.0); White Blood Count 3.7 X10*3/uL (4.8-10.8)
[2022-01-01 07:38] LABS: Albumin Level 3.3 g/dL (3.5-5.0); Anion Gap 12 (12-20); Blood Urea Nitrogen 16 mg/dL (9-16); Calcium 9.1 mg/dL (8.4-10.2); Carbon Dioxide 17 mmol/L (22-29); Chloride 108 mmol/L (96-108); Creatinine Clr Calc Pharmacy 117.6; Estimated Glomerular Filt Rate > 60; Glucose Fasting 201 mg/dL (60-99); Magnesium 1.9 mg/dL (1.6-2.6); Potassium 3.2 mmol/L (3.3-5.1); Sodium 134 mmol/L (135-145); Triglycerides 214 mg/dL
[2022-01-01] MEDS: Enoxaparin Sodium 40 MG/0.4 ML SYRINGE SUBCUT (07:42)
[2022-01-01] MEDS: Benztropine Mesylate 2 MG/2 ML VIAL 1 MG IVPUSH (07:43)
[2022-01-01] MEDS: Levothyroxine Sodium 100 MCG/5 ML VIAL 37.5 MCG IVPUSH (07:43)
[2022-01-01] MEDS: Fat Emulsions 20% 250 ML 10 ML IVCONT (07:45)
[2022-01-01] MEDS: Insulin Lispro 100 UNIT/ML 3 ML VIAL SUBCUT ×4 (08:03→20:08)
[2022-01-01] MEDS: Nystatin Powder 15 GM BOTTLE 1 APPL TOPICAL ×2 (08:03→19:53)
[2022-01-01] MEDS: diphenhydrAMINE HCl 2 % Cream 28 GM TUBE 1 APPL TOPICAL ×2 (08:03→19:53)
[2022-01-01] MEDS: Pregabalin 25 MG CAPSULE PO ×2 (08:03→19:47)
[2022-01-01 08:05] LABS: Glucose, Whole Blood 183 mg/dL (60-115)
[2022-01-01] MEDS: Haloperidol Lactate 5 MG/ML VIAL 1 MG IV ×3 (09:49→18:03)
--- NOTE | 2022-01-01 10:20 | P.PNIM_ITS ---
Subjective Subjective Date of Service: 01/01/22 Interval History: cc: sob itnerval history: talking more, calmer Cardiovascular Cardiovascular: Reports no additional cardiovascular complaints Respiratory Respiratory: Reports no additional respiratory complaints Physical Exam Vital Signs: Vital Signs: Last Vital Signs Temp 97.4 F 01/01/22 07:15 Pulse 116 H 01/01/22 07:15 Resp 18 01/01/22 07:15 BP 114/73 01/01/22 07:15 Pulse Ox 99 01/01/22 07:15 Oxygen Flow Rate 4 11/29/21 11:52 BMI result Body Mass Index 43.0 General: alert, minimally verbal, no acute distress Resp:? CTA bilateral, no accessory muscles used CVS: S1,S2,RRR GI: soft, non tender, non distended Neuro: minimally verbal, but improved, tremor Psych:impaired insight, flat affect skin: palpable purpura buttocks, skin folds Objective Data Active Medications Benztropine Mesylate (Benztropine Mesylate 2 Mg/2 Ml Vial) 1 mg IVPUSH BID [facility] Last Admin: 01/01/22 07:43 Dose: 1 mg Documented by: SARAH Enoxaparin Sodium (Enoxaparin Sodium 40 Mg/0.4 Ml Syringe) 40 mg SUBCUT Q24H [facility] Last Admin: 01/01/22 07:42 Dose: 40 mg Documented by: SARAH Haloperidol Lactate (Haloperidol Lactate 5 Mg/Ml Vial) 1 mg IV Q4H PRN PRN Reason: severe agitation Last Admin: 01/01/22 09:49 Dose: 1 mg Documented by: SARAH Valproic Acid 1,000 mg/ (Dextrose) 60 mls @ 60 mls/hr IV ONCE [facility] Valproic Acid 500 mg/ Dextrose 55 mls @ 52.5 mls/hr IV Q8H [facility] Last Infusion: 01/01/22 03:23 Dose: 0 mls/hr Documented by: NAUMOC Potassium Chloride 20 meq/Sodium Chloride 90 meq/Magnesium Sulfate 12 meq/Potassium Phosphate 30 mmol/Calcium Gluconate 9.3 meq/Multivitamins 10 ml/ Trace Metals 1 ml/ Amino Acids/Electrolytes/Dextrose 1,680 mls @ 70 mls/hr IVCONT DAILY@1800 [facility] Stop: 01/01/22 17:59 Last Admin: 12/31/21 18:22 Dose: 70 mls/hr Documented by: SARAH Fat Emulsion Intravenous (Intralipid) 120 mls @ 10 mls/hr IVCONT BID@0600,1800 [facility] Stop: 01/01/22 17:59 Last Admin: 01/01/22 07:45 Dose: 10 mls/hr Documented by: SARAH Insulin Human Lispro (Insulin Lispro 100 Unit/Ml 3 Ml Vial) 0 unit SUBCUT QIDACHS [facility]; Protocol Last Admin: 01/01/22 08:03 Dose: 2 unit Documented by: SARAH Levothyroxine Sodium (Levothyroxine Sodium 100 Mcg/5 Ml Vial) 37.5 mcg IVPUSH DAILY [facility] Last Admin: 01/01/22 07:43 Dose: 37.5 mcg Documented by: SARAH Lorazepam (Lorazepam 2 Mg/Ml Vial) 1 mg IVPUSH Q8H PRN PRN Reason: agitation Last Admin: 12/31/21 16:33 Dose: 1 mg Documented by: SARAH Nystatin (Nystatin Powder 15 Gm Bottle) 1 appl TOPICAL BID [facility]; Protocol Last Admin: 01/01/22 08:03 Dose: 1 appl Documented by: SARAH Pharmacy Consult (Consult Rx Perform Med Rec) 1 each MISCELLANE ONCE PRN PRN Reason: Consult order Pregabalin (Pregabalin 25 Mg Capsule) 25 mg PO BID [facility] Last Admin: 01/01/22 08:03 Dose: 25 mg Documented by: SARAH Quetiapine Fumarate (Quetiapine Fumarate 50 Mg Tablet) 150 mg PO BEDTIME [facility] Last Admin: 12/31/21 22:04 Dose: 150 mg Documented by: VANUMOC Sodium Chloride (0.9 % Sodium Chloride Flush 3 Ml Syringe) 3 ml IVFLUSH QSHIFT [facility] Last Admin: 01/01/22 08:04 Dose: Not Given Documented by: SARAH Non-Admin Reason: IV Running Zinc Acetate/Diphenhydramine (Diphenhydramine Hcl 2 % Cream 28 Gm Tube) 1 appl TOPICAL BID [facility]; Protocol Last Admin: 01/01/22 08:03 Dose: 1 appl Documented by: SARAH Labs CBC & Chem 7: 01/01/22 06:28 01/01/22 06:28 Labs: Laboratory Results - last 24 hr 12/31/21 12/31/21 12/31/21 05:55 11:34 15:56 MCV MCH MCHC RDW Plt Count MPV Absolute Nucleated RBC Nucleated RBC % (auto) Anion Gap Estim Creat Clear Calc Estimated GFR POC Glucose 218 H 211 H Random Glucose Fasting Glucose Calcium Phosphorus 4.1 Magnesium 1.7 Albumin Triglycerides 190 12/31/21 01/01/22 01/01/22 21:59 06:28 06:28 MCV 90.5 MCH 29.8 MCHC 32.9 RDW 16.3 H Plt Count 162 MPV 11.1 Absolute Nucleated RBC 0.000 Nucleated RBC % (auto) 0.0 Anion Gap 12 Estim Creat Clear Calc 117.6 Estimated GFR > 60 POC Glucose 171 H Random Glucose TNP Fasting Glucose 201 H Calcium 9.1 Phosphorus 4.0 Magnesium 1.9 Albumin 3.3 L Triglycerides 214 01/01/22 07:43 MCV MCH MCHC RDW Plt Count MPV Absolute Nucleated RBC Nucleated RBC % (auto) Anion Gap Estim Creat Clear Calc Estimated GFR POC Glucose 183 H Random Glucose Fasting Glucose Calcium Phosphorus Magnesium Albumin Triglycerides Assessment and Plan (1) Tremor of unknown origin: Status: Acute (2) Dysphagia: Status: Acute (3) Encephalopathy: Status: Acute Plan 31-year-old type 2 diabetic morbidly obese female with a background of bipolar disorder and has autoimmune, IGA deficiecny, encephalitis and peripheral polyneuropathy for which she gets monthly IV IG and once yearly rituximab, was admitted for acute hypoxic respiratory failure due to covid, course was complciated by progressive AMS and agitation requiring intubation and ICU stay. extensive work up including EEG and LP did not revela specific diagnosis. she was eventually extubated after diuresis and dexmedetomide. she is now on room air, responding to commands, but not hadnt been talking until am 12/28/21 metabolic encephalopathy Could be secondary to agitated delerium, autoimmune or COVID encephalitis vs seizure MRI repeated, no acute findings IVIG completed Recurrent redirection [facility] accepted the patient for transferred pending beds availabi lity started on depakote with noted improvement in speech, aim for level of 75, increased to 500mg tid added cogentin 1mg bid seen by INDEPENDENT [employer]REIGHT AGENT -advanced further to pureed with nectar thick liquids, but eating less than 25%, so will continue tpn for now ensure added continue to monitor caloric intake, will dc tpn once around 50% or higher purpuric rash - unclear when started, ? drug reaction, vs heat rash, vs autoimmune, has not spread further continue benadryl cream, monitor closely, if worsening, plan to change depakote to oxcarbazine COVID-19 infection appears resolved pcr and antigen now negative and > 20 days out, dced airborne precautions DM insulin CRISPIN resolved hypernatremia resolved dvt prophylaxis lovenox Quality Stroke Does the patient have a stroke diagnosis?: No VTE Prior VTE?: No VTE Risk Level:: Medical - moderate - high VTE Device Contraindication: Treatment Not Indicated VTE Drug Contraindication: N/A - Med Ordered
[2022-01-01 11:07] VITALS: BP 122/66; PULSE 132; RESP 18; TEMP 36.8; O2SAT 100
[2022-01-01] MEDS: LORazepam 2 MG/ML VIAL 1 MG IVPUSH ×2 (11:10→22:18)
[2022-01-01 11:36] LABS: Glucose, Whole Blood 205 mg/dL (60-115)
[2022-01-01 15:43] VITALS: BP 121/71; PULSE 123; RESP 16; TEMP 37; O2SAT 98
[2022-01-01 17:00] LABS: Glucose, Whole Blood 220 mg/dL (60-115)
[2022-01-01] MEDS: 0.9 % Sodium Chloride Flush 3 ML SYRINGE IVFLUSH (17:27)
[2022-01-01 19:23] VITALS: BP 140/89; PULSE 132; RESP 16; TEMP 35.9; O2SAT 98
[2022-01-01 19:45] LABS: Glucose, Whole Blood 225 mg/dL (60-115)
[2022-01-01] MEDS: QUEtiapine Fumarate 50 MG TABLET 150 MG PO (19:47)
[2022-01-01] MEDS: Benztropine Mesylate 2 MG/2 ML VIAL IVPUSH (19:47)
[2022-01-02] VITALS (7 sets, daily range): BP systolic 108–143; BP diastolic 61–97; PULSE 78–150; RESP 18–20; TEMP 36.6–36.9; O2SAT 93–100
[2022-01-02] MEDS: 0.9 % Sodium Chloride Flush 3 ML SYRINGE IVFLUSH ×4 (00:06→22:23)
[2022-01-02] MEDS: Haloperidol Lactate 5 MG/ML VIAL 1 MG IV (02:08)
[2022-01-02] MEDS: Valproic Acid (as Sodium Salt) 500 MG in Dextrose 5 % 50 ML 52.5 MG IV (02:09)
[2022-01-02 06:49] LABS: Hematocrit 36.2 % (37.0-47.0); Hemoglobin 11.7 g/dl (12.0-16.0); Mean Corpuscular HGB Conc 32.3 g/dl (31.0-35.0); Mean Corpuscular Volume 89.8 fL (80.0-98.0); Mean Platelet Volume 10.8 fL (9.4-12.3); Platelet Count 178 X10*3/uL (160-400); Red Blood Count 4.03 X10*6/uL (4.20-5.50); Red Cell Distribution Width 16.5 % (11.0-16.0); White Blood Count 3.6 X10*3/uL (4.8-10.8)
[2022-01-02 06:55] LABS: Anion Gap 18 (12-20); Blood Urea Nitrogen 15 mg/dL (9-16); Calcium 9.6 mg/dL (8.4-10.2); Carbon Dioxide 17 mmol/L (22-29); Chloride 105 mmol/L (96-108); Creatinine Clr Calc Pharmacy 106.8; Estimated Glomerular Filt Rate > 60; Glucose Fasting 171 mg/dL (60-99); Potassium 3.3 mmol/L (3.3-5.1); Sodium 137 mmol/L (135-145)
[2022-01-02 07:43] LABS: Glucose, Whole Blood 211 mg/dL (60-115)
[2022-01-02] MEDS: Insulin Lispro 100 UNIT/ML 3 ML VIAL SUBCUT ×4 (08:25→22:22)
[2022-01-02] MEDS: Levothyroxine Sodium 100 MCG/5 ML VIAL 37.5 MCG IVPUSH (08:25)
[2022-01-02] MEDS: Benztropine Mesylate 2 MG/2 ML VIAL IVPUSH (08:25)
[2022-01-02] MEDS: Pregabalin 25 MG CAPSULE PO (08:26)
[2022-01-02] MEDS: Enoxaparin Sodium 40 MG/0.4 ML SYRINGE SUBCUT (08:26)
[2022-01-02] MEDS: Nystatin Powder 15 GM BOTTLE 1 APPL TOPICAL ×2 (08:26→22:23)
[2022-01-02] MEDS: diphenhydrAMINE HCl 2 % Cream 28 GM TUBE 1 APPL TOPICAL (08:27)
--- NOTE | 2022-01-02 09:26 | P.PNIM_ITS ---
Subjective Subjective Date of Service: 01/02/22 Interval History: cc: sob itnerval history: talking more, calmer Cardiovascular Cardiovascular: Reports no additional cardiovascular complaints Respiratory Respiratory: Reports no additional respiratory complaints Physical Exam Vital Signs: Vital Signs: Last Vital Signs Temp 97.8 F 01/02/22 07:05 Pulse 131 H 01/02/22 07:05 Resp 18 01/02/22 07:05 BP 129/73 01/02/22 07:05 Pulse Ox 99 01/02/22 07:05 Oxygen Flow Rate 4 11/29/21 11:52 BMI result Body Mass Index 43.0 General: alert, more verbal, no acute distress Resp:? CTA bilateral, no accessory muscles used CVS: S1,S2,RRR GI: soft, non tender, non distended Neuro: more verbal, tremor Psych:impaired insight, flat affect skin: palpable purpura buttocks, skin folds has resolved Objective Data Active Medications Benztropine Mesylate (Benztropine Mesylate 1 Mg Tablet) 2 mg PO BID [facility] Divalproex Sodium (Divalproex Sodium 500 Mg Tablet.) 500 mg PO TID [facility] Enoxaparin Sodium (Enoxaparin Sodium 40 Mg/0.4 Ml Syringe) 40 mg SUBCUT Q24H [facility] Last Admin: 01/02/22 08:26 Dose: 40 mg Documented by: SARAH Insulin Human Lispro (Insulin Lispro 100 Unit/Ml 3 Ml Vial) 0 unit SUBCUT QIDACHS [facility]; Protocol Last Admin: 01/02/22 08:25 Dose: 4 unit Documented by: SARAH Levothyroxine Sodium (Levothyroxine Sodium 100 Mcg/5 Ml Vial) 37.5 mcg IVPUSH DAILY [facility] Last Admin: 01/02/22 08:25 Dose: 37.5 mcg Documented by: SARAH Lorazepam (Lorazepam 2 Mg/Ml Vial) 1 mg IVPUSH Q8H PRN PRN Reason: agitation Last Admin: 01/01/22 22:18 Dose: 1 mg Documented by: TUMASY Nystatin (Nystatin Powder 15 Gm Bottle) 1 appl TOPICAL BID [facility]; Protocol Last Admin: 01/02/22 08:26 Dose: 1 appl Documented by: SARAH Pharmacy Consult (Consult Rx Perform Med Rec) 1 each MISCELLANE ONCE PRN PRN Reason: Consult order Pregabalin (Pregabalin 50 Mg Capsule) 50 mg PO BID [facility] Quetiapine Fumarate (Quetiapine Fumarate 200 Mg Tablet) 200 mg PO BEDTIME [facility] Sodium Chloride (0.9 % Sodium Chloride Flush 3 Ml Syringe) 3 ml IVFLUSH QSHIFT [facility] Last Admin: 01/02/22 08:26 Dose: 3 ml Documented by: SARAH Labs CBC & Chem 7: 01/02/22 05:56 01/02/22 05:56 Labs: Laboratory Results - last 24 hr 01/01/22 01/01/22 01/01/22 11:27 16:37 19:26 MCV MCH MCHC RDW Plt Count MPV Absolute Nucleated RBC Nucleated RBC % (auto) Anion Gap Estim Creat Clear Calc Estimated GFR POC Glucose 205 H 220 H 225 H Fasting Glucose Calcium 01/02/22 01/02/22 01/02/22 05:56 05:56 07:25 MCV 89.8 MCH 29.0 MCHC 32.3 RDW 16.5 H Plt Count 178 MPV 10.8 Absolute Nucleated RBC 0.000 Nucleated RBC % (auto) 0.0 Anion Gap 18 Estim Creat Clear Calc 106.8 Estimated GFR > 60 POC Glucose 211 H Fasting Glucose 171 H Calcium 9.6 Assessment and Plan (1) Tremor of unknown origin: Status: Acute (2) Dysphagia: Status: Acute (3) Encephalopathy: Status: Acute Plan 31-year-old type 2 diabetic morbidly obese female with a background of bipolar disorder and has autoimmune, IGA deficiecny, encephalitis and peripheral polyneuropathy for which she gets monthly IV IG and once yearly rituximab, was admitted for acute hypoxic respiratory failure due to covid, course was complciated by progressive AMS and agitation requiring intubation and ICU stay. extensive work up including EEG and LP did not revela specific diagnosis. she was eventually extubated after diuresis and dexmedetomide. she is now on room air, responding to commands, but not hadnt been talking until am 12/28/21 metabolic encephalopathy Could be secondary to agitated delerium, autoimmune or COVID encephalitis vs seizure MRI repeated, no acute findings IVIG completed Recurrent redirection as patient has improved no longer planning to trasnfer to [facility] depakote changed to oral 500mg tid cogentin 2mg bid seen by EXTENDED DAY TEACHER -pureed with nectar thick liquids, eating much better, >50% of ensures, will dc tpn tremor concern for EPS continue cogentin stop haldol bipolar stop haldol, will slowly titrate up seroquel autoimmune peripheral neuropathy +FGFR3 antibody outpatient [facility] follow up lyrica purpuric rash - resolved not due to depakote COVID-19 infection appears resolved pcr and antigen now negative and > 20 days out, dced airborne precautions DM insulin CRISPIN resolved hypernatremia resolved dvt prophylaxis lovenox dispo - will need rehab Quality Stroke Does the patient have a stroke diagnosis?: No VTE Prior VTE?: No VTE Risk Level:: Medical - moderate - high VTE Device Contraindication: Treatment Not Indicated VTE Drug Contraindication: N/A - Med Ordered
[2022-01-02] MEDS: LORazepam 2 MG/ML VIAL 1 MG IVPUSH ×3 (09:44→18:01)
--- NOTE | 2022-01-02 10:51 | MHC.SL.SWA ---
Speech Pathologist Impression: Risk of Aspiration Oralpharyngeal Dysphagia Risk of Aspiration Due to: Lethargy Neurological Condition Poor PO Intake Dysphasia Diet Status: Upgrade Liquid Consistency and Strategies for Safe Swallow: Liquid Intake Recommendation: Thin Liquid Intake Strategies: Small Sips Solid Food Consistency: Dietary Recommendations: Grnd/Mech Altered (NDD2) Additional Modifications to Solid Foods: Recommend UPGRADE to GROUND/MECH ALTERED (NDD2) solids and THIN liquids, pills CRUSHED in PUREE. Patient still requires assistance feeding. Continue aspiration precautions. Diet order in [facility] updated by MOLD INSPECTOR to reflect upgrade. Notified MD, RN, RD. MOLD INSPECTOR will continue to follow. Oral Medication Intake: Crushed with Puree Compensatory Strategies and Precautions to be Taken for Safe Swallow: Sitting Upright (90 deg) Small Bites and Sips Alternate Liquids/Solids Rate of Ingestion Change Oral Check Supervision While Eating and Drinking for Safe Swallow: Total Assistance Foods to Avoid: sticky consistencies. Swallowing Recommended Treatments: Compens. Strategy Educat. Recommendation for Speech: Inpatient Speech Therapy Injection Operator Clinican/Clinical Fellow: No Supervisory Statement: I have reviewed and agree with the student/clinical fellow's documentation: N/A Speech Language Pathologist: Savanna Tadeo M.A., [facility]-MOLD INSPECTOR
[2022-01-02] MEDS: Divalproex Sodium 500 MG TABLET.DR PO ×3 (10:54→22:21)
[2022-01-02 11:33] LABS: Glucose, Whole Blood 227 mg/dL (60-115)
--- NOTE | 2022-01-02 12:22 | MHC.CLN ---
F/U PT ATE 75% X 2 MEALS VICE PRESIDENT QUALITY RECOMMENDED GRD/M/S DIET TODAY D/C PPN PER PT RECEIVING ENSURE TID PROVIDES 1050KCALS, 60G PROTEIN MONITOR PO INTAKE CLOSELY WILL F/U X 7 DAYS
[2022-01-02 16:12] LABS: Glucose, Whole Blood 284 mg/dL (60-115)
[2022-01-02 20:00] LABS: Glucose, Whole Blood 229 mg/dL (60-115)
[2022-01-02] MEDS: Benztropine Mesylate 1 MG TABLET 2 MG PO (22:21)
[2022-01-02] MEDS: Pregabalin 50 MG CAPSULE PO (22:22)
[2022-01-02] MEDS: QUEtiapine Fumarate 200 MG TABLET PO (22:22)
[2022-01-03 04:00] VITALS: BP 121/78; PULSE 135; RESP 20; TEMP 36.4; O2SAT 95
[2022-01-03 06:33] LABS: Hematocrit 35.3 % (37.0-47.0); Hemoglobin 11.6 g/dl (12.0-16.0); Mean Corpuscular HGB Conc 32.9 g/dl (31.0-35.0); Mean Corpuscular Volume 88.3 fL (80.0-98.0); Platelet Count 182 X10*3/uL (160-400)
[2022-01-03 06:35] LABS: White Blood Count 1.4 X10*3/uL (4.8-10.8)
[2022-01-03 06:51] LABS: Alanine Aminotransferase 39 U/L (0-31); Albumin Level 3.4 g/dL (3.5-5.0); Alkaline Phosphatase 81 U/L (39-117); Anion Gap 12 (12-20); Aspartate Amino Transferase 31 U/L (5-31); Bilirubin Direct 0.2 mg/dL (0.0-0.5); Bilirubin Total 0.3 mg/dL (0.0-1.0); Blood Urea Nitrogen 13 mg/dL (9-16); Calcium 9.8 mg/dL (8.4-10.2); Carbon Dioxide 22 mmol/L (22-29); Chloride 102 mmol/L (96-108); Creatinine Clr Calc Pharmacy 112.7; Estimated Glomerular Filt Rate > 60; Glucose Fasting 199 mg/dL (60-99); Potassium 3.1 mmol/L (3.3-5.1); Sodium 133 mmol/L (135-145); Total Protein 8.4 g/dL (6.5-8.0)
[2022-01-03 06:56] VITALS: BP 104/73; PULSE 133; RESP 20; TEMP 36.2; O2SAT 96
[2022-01-03 07:24] LABS: Thyroid Stimulating Hormone 0.33 uIU/mL (0.32-4.0)
[2022-01-03 07:26] LABS: Glucose, Whole Blood 187 mg/dL (60-115)
[2022-01-03 07:34] LABS: Basophils Percent Auto 1.4 % (0-2); Eosinophils Percent Auto 2.1 % (0-4); Imm Gran Abs Auto 0.05 X10*3/uL (0.00-0.03); Imm Gran Pct Auto 3.5 % (0.0-0.4); Lymphocytes Absolute Auto 0.6 X10*3/uL (1.2-4.9); Lymphocytes Percent Auto 40.4 % (20-40); MANUAL DIFF FLAG SCAN; Monocytes Absolute Auto 0.4 X10*3/uL (0.1-1.2); Monocytes Percent Auto 29.1 % (2-11); Neutrophils Absolute Auto 0.3 x10*3/uL (2.0-8.3); Neutrophils Percent Auto 23.5 % (45-73); SCAN SMEAR FLAG 1
[2022-01-03] MEDS: Enoxaparin Sodium 40 MG/0.4 ML SYRINGE SUBCUT (07:43)
[2022-01-03] MEDS: Insulin Lispro 100 UNIT/ML 3 ML VIAL SUBCUT ×4 (07:43→20:23)
[2022-01-03] MEDS: 0.9 % Sodium Chloride Flush 3 ML SYRINGE IVFLUSH ×3 (07:43→20:32)
[2022-01-03] MEDS: Levothyroxine Sodium 100 MCG/5 ML VIAL 37.5 MCG IVPUSH (07:43)
[2022-01-03] MEDS: Divalproex Sodium 500 MG TABLET.DR PO (07:44)
[2022-01-03] MEDS: Benztropine Mesylate 1 MG TABLET 2 MG PO ×2 (07:44→20:24)
[2022-01-03] MEDS: Nystatin Powder 15 GM BOTTLE 1 APPL TOPICAL ×2 (07:44→20:24)
[2022-01-03] MEDS: Pregabalin 50 MG CAPSULE PO ×2 (07:44→18:43)
[2022-01-03 07:56] LABS: Alpha-1-Globulin,CSF 8.6; Alpha-2-Globulin,CSF 8.6; Beta Globulin, CSF 17.1; Prealbumin, CSF 8.3
[2022-01-03 07:57] LABS: Total Protein, CSF 26
--- NOTE | 2022-01-03 10:33 | HO.PM.IMPN ---
Subjective Subjective Date of Service: 01/03/22 Interval History: cc: sob interval history: eating better, wants to go, still having outbursts Cardiovascular Cardiovascular: Reports no additional cardiovascular complaints Gastrointestinal Gastrointestinal: Reports no additional gastrointestinal complaints Physical Exam Vital Signs: Vital Signs: Last Vital Signs Temp 97.1 F 01/03/22 06:56 Pulse 133 H 01/03/22 06:56 Resp 20 01/03/22 06:56 BP 104/73 01/03/22 06:56 Pulse Ox 96 01/03/22 06:56 BMI result Body Mass Index 43.0 General: alert, more verbal, no acute distress Resp:? CTA bilateral, no accessory muscles used CVS: S1,S2,RRR GI: soft, non tender, non distended Neuro: more verbal, tremor Psych:impaired insight, flat affect skin: palpable purpura buttocks, skin folds has resolved Objective Data Active Medications Benztropine Mesylate (Benztropine Mesylate 1 Mg Tablet) 2 mg PO BID [facility] Last Admin: 01/03/22 07:44 Dose: 2 mg Documented by: DARRICK Divalproex Sodium (Divalproex Sodium 500 Mg Tablet.) 500 mg PO TID [facility] Last Admin: 01/03/22 07:44 Dose: 500 mg Documented by: DARRICK Enoxaparin Sodium (Enoxaparin Sodium 40 Mg/0.4 Ml Syringe) 40 mg SUBCUT Q24H [facility] Last Admin: 01/03/22 07:43 Dose: 40 mg Documented by: DARRICK Insulin Human Lispro (Insulin Lispro 100 Unit/Ml 3 Ml Vial) 0 unit SUBCUT QIDACHS [facility]; Protocol Last Admin: 01/03/22 07:43 Dose: 2 unit Documented by: DARRICK Levothyroxine Sodium (Levothyroxine Sodium 100 Mcg/5 Ml Vial) 37.5 mcg IVPUSH DAILY [facility] Last Admin: 01/03/22 07:43 Dose: 37.5 mcg Documented by: DARRICK Lorazepam (Lorazepam 2 Mg/Ml Vial) 1 mg IVPUSH Q8H PRN PRN Reason: agitation Last Admin: 01/02/22 18:01 Dose: 1 mg Documented by: DOBROB Nystatin (Nystatin Powder 15 Gm Bottle) 1 appl TOPICAL BID [facility]; Protocol Last Admin: 01/03/22 07:44 Dose: 1 appl Documented by: DARRICK Pharmacy Consult (Consult Rx Perform Med Rec) 1 each MISCELLANE ONCE PRN PRN Reason: Consult order Pregabalin (Pregabalin 50 Mg Capsule) 50 mg PO BID [facility] Last Admin: 01/03/22 07:44 Dose: 50 mg Documented by: DARRICK Quetiapine Fumarate (Quetiapine Fumarate 200 Mg Tablet) 200 mg PO BEDTIME [facility] Last Admin: 01/02/22 22:22 Dose: 200 mg Documented by: CHRISTOPH Sodium Chloride (0.9 % Sodium Chloride Flush 3 Ml Syringe) 3 ml IVFLUSH QSHIFT [facility] Last Admin: 01/03/22 07:43 Dose: 3 ml Documented by: DARRICK Labs CBC & Chem 7: 01/03/22 06:09 01/03/22 06:09 Labs: Laboratory Results - last 24 hr 12/10/21 01/02/22 01/02/22 23:35 11:18 16:08 MCV MCH MCHC RDW Plt Count MPV Immature Gran % (Auto) Neut % (Auto) Lymph % (Auto) Giles % (Auto) Eos % (Auto) Baso % (Auto) Lymph # (Auto) Giles # (Auto) Eos # (Auto) Baso # (Auto) Abs Immat Gran (auto) Absolute Neuts (auto) Absolute Nucleated RBC Nucleated RBC % (auto) Smear Tech's Comments Smear Path Review Anion Gap Estim Creat Clear Calc Estimated GFR POC Glucose 227 H 284 H Fasting Glucose Calcium Total Bilirubin Direct Bilirubin AST ALT Alkaline Phosphatase Total Protein Albumin TSH CSF Total Protein PEP 26 CSF Prealbumin 8.3 CSF Albumin 50.0 CSF Aargo-4-Oldwsshf 8.6 CSF Lucyy-6-Rndcbalj 8.6 CSF Beta Globulin 17.1 CSF Gamma Globulin 7.0 CSF PEP Interpret SEE COMMENT 01/02/22 01/03/22 01/03/22 19:56 06:09 06:09 MCV 88.3 MCH 29.0 MCHC 32.9 RDW 16.0 Plt Count 182 MPV 11.0 Immature Gran % (Auto) 3.5 H Neut % (Auto) 23.5 L Lymph % (Auto) 40.4 H Giles % (Auto) 29.1 H Eos % (Auto) 2.1 Baso % (Auto) 1.4 Lymph # (Auto) 0.6 L Giles # (Auto) 0.4 Eos # (Auto) 0.0 Baso # (Auto) 0.0 Abs Immat Gran (auto) 0.05 H Absolute Neuts (auto) 0.3 L Absolute Nucleated RBC 0.000 Nucleated RBC % (auto) 0.0 Smear Tech's Comments Not Reportable Smear Path Review SEE NOTE Anion Gap 12 Estim Creat Clear Calc 112.7 Estimated GFR > 60 POC Glucose 229 H Fasting Glucose 199 H Calcium 9.8 Total Bilirubin 0.3 Direct Bilirubin 0.2 AST 31 ALT 39 H Alkaline Phosphatase 81 Total Protein 8.4 H Albumin 3.4 L TSH CSF Total Protein PEP CSF Prealbumin CSF Albumin CSF Rhhgc-9-Znmjteup CSF Hopyy-3-Amubufrw CSF Beta Globulin CSF Gamma Globulin CSF PEP Interpret 01/03/22 01/03/22 06:09 07:22 MCV MCH MCHC RDW Plt Count MPV Immature Gran % (Auto) Neut % (Auto) Lymph % (Auto) Giles % (Auto) Eos % (Auto) Baso % (Auto) Lymph # (Auto) Giles # (Auto) Eos # (Auto) Baso # (Auto) Abs Immat Gran (auto) Absolute Neuts (auto) Absolute Nucleated RBC Nucleated RBC % (auto) Smear Tech's Comments Smear Path Review Anion Gap Estim Creat Clear Calc Estimated GFR POC Glucose 187 H Fasting Glucose Calcium Total Bilirubin Direct Bilirubin AST ALT Alkaline Phosphatase Total Protein Albumin TSH 0.33 CSF Total Protein PEP CSF Prealbumin CSF Albumin CSF Ynnmb-0-Xktkfujf CSF Xwjsa-5-Zfsmehep CSF Beta Globulin CSF Gamma Globulin CSF PEP Interpret Assessment and Plan (1) Tremor of unknown origin: Status: Acute (2) Dysphagia: Status: Acute (3) Encephalopathy: Status: Acute Plan 31-year-old type 2 diabetic morbidly obese female with a background of bipolar disorder and has autoimmune, IGA deficiecny, encephalitis and peripheral polyneuropathy for which she gets monthly IV IG and once yearly rituximab, was admitted for acute hypoxic respiratory failure due to covid, course was complciated by progressive AMS and agitation requiring intubation and ICU stay. extensive work up including EEG and LP did not revela specific diagnosis. she was eventually extubated after diuresis and dexmedetomide. she is now on room air, responding to commands, but not hadnt been talking until am 12/28/21, now talking more, eating, weaned off tpn. metabolic encephalopathy Could be secondary to agitated delerium, autoimmune or COVID encephalitis vs seizure MRI repeated, no acute findings IVIG completed Recurrent redirection as patient has improved no longer planning to trasnfer to [facility] depakote now oral 500mg tid cogentin 2mg bid seen by BRIDGE MAINTAINER -pureed with nectar thick liquids, eating much better, >50% of ensures, now off tpn now with neutropenia hematology eval, monitor iv access will plan to change old TLC to midline for meds and labs. tremor concern for EPS continue cogentin stop haldol bipolar stop haldol, will slowly titrate up seroquel (less EPS) autoimmune peripheral neuropathy +FGFR3 antibody outpatient [facility] follow up titrate lyrica back up, now on 50mg bid, was on 300mg bid previously purpuric rash - resolved not due to depakote COVID-19 infection appears resolved pcr and antigen now negative and > 20 days out, dced airborne precautions DM insulin CRISPIN resolved hypernatremia resolved dvt prophylaxis lovenox dispo - will need rehab Quality Stroke Does the patient have a stroke diagnosis?: No VTE Prior VTE?: No VTE Risk Level:: Medical - moderate - high VTE Device Contraindication: Treatment Not Indicated VTE Drug Contraindication: N/A - Med Ordered
[2022-01-03 11:12] VITALS: BP 110/58; PULSE 128; RESP 16; TEMP 36; O2SAT 95
[2022-01-03 11:18] LABS: Glucose, Whole Blood 270 mg/dL (60-115)
--- NOTE | 2022-01-03 12:07 | MHC.SL.SWA ---
Speech Pathologist Impression: Risk of Aspiration Oralpharyngeal Dysphagia Risk of Aspiration Due to: Lethargy Neurological Condition Poor PO Intake Dysphasia Diet Status: Liquid Consistency and Strategies for Safe Swallow: Liquid Intake Recommendation: Thin Liquid Intake Strategies: Small Sips Solid Food Consistency: Dietary Recommendations: Grnd/Mech Altered (NDD2) Additional Modifications to Solid Foods: Recommend continue GROUND/MECH ALTERED (NDD2) solids and THIN liquids, pills CRUSHED in PUREE. Patient still requires assistance feeding but encourage independence where possible. Continue aspiration precautions. Oral Medication Intake: Please contact the pharmacy regarding appropriate crushable or liquid drug formulations that are available if modifications to medication delivery is recommended. Crushed with Puree Compensatory Strategies and Precautions to be Taken for Safe Swallow: Sitting Upright (90 deg) Small Bites and Sips Alternate Liquids/Solids Rate of Ingestion Change Oral Check Supervision While Eating and Drinking for Safe Swallow: Total Assistance Foods to Avoid: sticky consistencies. Swallowing Recommended Treatments: Compens. Strategy Educat. Recommendation for Speech: Inpatient Speech Therapy: 12/14/21:Pt seen this a.m. for treatment. Pt responding to questions and making requests in complete sentences today. Pt. was given diet soda w/ straw, and was able to hold soda and sip on straw independently w/ no clinical s/s of aspiration, good management of straw sips (small amounts, no chain swallows). Pt was given cut up bits of [employer] sandwich, and was able to independently feed self bites, w/ mild delay of oral phase due to mastication of sandwich, swallow trigger and swallow elevation noted, no clinical s/s of aspiration on several bites observed. Pt is tolerating upgrade of diet well, recommend continue on diet consistencies of Ground/Mech/Alt (NDD2) w/ Thin Liquids. Comment: Patient still requires assistance feeding. Continue aspiration precautions. Frequency/Duration: Date Range for Service Req: Timeline to reassess: Skip Loader Clinican/Clinical Fellow: No Supervisory Statement: I have reviewed and agree with the student/clinical fellow's documentation: N/A Speech Language Pathologist: Soha Boone M.A., CCC-DISTRICT RESOURCE OFFICER
--- NOTE | 2022-01-03 12:40 | P.CNHO_ITS ---
Subjective - Subjective Chief complaint: None Patient: new to practice Consult date: 01/03/22 Requesting Physician: Dr. Liang Primary Care Provider: Lachelle Guerra MD HPI - Consult Narrative Reason for consult: leukopenia/neutropenia Narrative: Susy Wolf is a 31 year old female with multiple medical problems who had a prolonged hospitalization at [facility] [place] for acute hypoxic respiratory failure due to COVID pneumonia. She has had progressive acute mental status changes and agitation requiring prolonged ICU stay. She has a history of bipolar disorder and autoimmune IgA deficiency, peripheral polyneuropathy for which she receives IVIG and rituximab. Her white count was normal at 5.3 K at the time of admission on 11/29/21. WBC count has always been normal going back to 2012. She has had intermittent leuko cytosis the past. She was noted to have a steady decline in WBC count since 12/31/2021. Her only new medication is Depakote, her dose was increased recently. [facility] Medical History: Medical History (Last Updated 01/02/22 @ 09:00 by Juan Antonio Liang MD) Acquired hypothyroidism ARDS (adult respiratory distress syndrome) Bipolar disorder Diabetes mellitus with hyperglycemia Esophagitis with gastritis Essential hypertension Gastric paresis Hyperlipidemia Hypogammaglobulinemia Muscle weakness Obesity, morbid, BMI 40.0-49.9 Peripheral neuropathy Pneumonia due to 2019 novel coronavirus Vitamin D deficiency Family History: Family History (Last Reviewed 12/02/21 @ 15:09 by Doreen Torres MD) Other Adopted Family history: reviewed and not pertinent Surgical History: Surgical History (Last Reviewed 12/26/21 @ 15:06 by Yissel Jeffries) Hx of section Hx of tooth extraction Social History: Social History (Last Reviewed 12/02/21 @ 15:09 by Doreen Torres MD) Living Situation History: Household Members: Adopted Family Housing: Unknown / Unable to asses Do you presently have visiting nurse or other home services: Do you presently have visiting nurse or other home services comment: unknown Tobacco History: Patient Tobacco Use Status: Former Tobacco user Second Hand Smoke Exposure: No Occupation Assessmet: service: No Current occupational status: disabled Sex/Gender Assessment: Gender identity: Female Home Medications and Allergies Current Medications: Current Medications Benztropine Mesylate (Benztropine Mesylate 1 Mg Tablet) 2 mg PO BID [facility] Last Admin: 01/03/22 07:44 Dose: 2 mg Documented by: Enoxaparin Sodium (Enoxaparin Sodium 40 Mg/0.4 Ml Syringe) 40 mg SUBCUT Q24H [facility] Last Admin: 01/03/22 07:43 Dose: 40 mg Documented by: Insulin Human Lispro (Insulin Lispro 100 Unit/Ml 3 Ml Vial) 0 unit SUBCUT QIDAC HS [facility]; Protocol Last Admin: 01/03/22 11:26 Dose: 6 unit Documented by: Levothyroxine Sodium (Levothyroxine Sodium 100 Mcg/5 Ml Vial) 37.5 mcg IVPUSH DAILY [facility] Last Admin: 01/03/22 07:43 Dose: 37.5 mcg Documented by: Lorazepam (Lorazepam 2 Mg/Ml Vial) 1 mg IVPUSH Q8H PRN PRN Reason: agitation Last Admin: 01/02/22 18:01 Dose: 1 mg Documented by: Nystatin (Nystatin Powder 15 Gm Bottle) 1 appl TOPICAL BID [facility]; Protocol Last Admin: 01/03/22 07:44 Dose: 1 appl Documented by: Oxcarbazepine (Oxcarbazepine 300 Mg Tablet) 300 mg PO BID [facility] Pharmacy Consult (Consult Rx Perform Med Rec) 1 each MISCELLANE ONCE PRN PRN Reason: Consult order Pregabalin (Pregabalin 50 Mg Capsule) 50 mg PO BID [facility] Last Admin: 01/03/22 07:44 Dose: 50 mg Documented by: Quetiapine Fumarate (Quetiapine Fumarate 200 Mg Tablet) 200 mg PO BEDTIME [facility] Last Admin: 01/02/22 22:22 Dose: 200 mg Documented by: Sodium Chloride (0.9 % Sodium Chloride Flush 3 Ml Syringe) 3 ml IVFLUSH QSHIFT [facility] Last Admin: 01/03/22 07:43 Dose: 3 ml Documented by: Home Medications Medication Instructions Recorded Confirmed Type bupropion HCl 100 mg tablet,12 hr 100 mg PO QAM 11/30/20 11/29/21 History sustained-release trazodone 100 mg tablet 100 mg PO BEDTIME 11/30/20 11/29/21 History cranberry 400 mg capsule 450 mg PO DAILY cap 03/22/21 11/29/21 History melatonin 3 mg tablet 6 mg PO DAILY 03/22/21 11/29/21 History multivitamin 1 tab PO DAILY 03/22/21 11/29/21 History pregabalin 300 mg capsule 300 mg PO BID cap 05/10/21 11/29/21 History rituximab 10 mg/mL 10 mg IV [id number] 08/11/21 11/29/21 History concentrate,intravenous oxcarbazepine 150 mg tablet 450 mg PO BID tab 08/18/21 11/29/21 History cholecalciferol (vitamin D3) 1,250 1,250 mcg PO MO 10/16/21 11/29/21 History mcg (50,000 unit) capsule chlorhexidine gluconate 0.12 % 15 ml PO BID 11/29/21 11/29/21 History mouthwash quetiapine 200 mg tablet 1 tab PO BEDTIME 11/29/21 11/29/21 History quetiapine 400 mg tablet 1 tab PO BEDTIME 11/29/21 11/29/21 History immun glob G 10 gram/100 450 ml SUBCUT Q4W 12/14/21 12/14/21 History mL(10%)-gly-IgA ov50 mcg/mL subcutaneous soln immun glob G 10 gram/100 500 ml SUBCUT Q4W 12/14/21 12/14/21 History mL(10%)-gly-IgA ov50 mcg/mL subcutaneous soln Allergies Allergy/AdvReac Type Severity Reaction Status Date / Time latex Allergy Unknown rash Verified 11/14/21 00:57 metoclopramide [From REGLAN] AdvReac Unknown INTERACTS Verified 11/14/21 00:57 W/ SEROQUEL Physical Exam Vital signs: Vital Signs Temp 96.8 F 01/03/22 11:12 Pulse 128 H 01/03/22 11:12 Resp 16 01/03/22 11:12 BP 110/58 L 01/03/22 11:12 Pulse Ox 95 01/03/22 11:12 Intake & Output 01/02/22 01/03/22 01/03/22 18:59 06:59 18:59 Intake Total 1500 / 1500 20 / 20 Output Total 450 / 1450 1000 / 1450 Balance 1050 / 50 -1000 / 50 20 / 20 Urine Output (Average ml/kg/hr) 0.39 0.86 0.86 Intake: Intake, Oral Amount 1500 / 1500 20 / 20 Output: Output, Urine Amount 500 / 500 Output, Urine Amount (Catheter) 450 / 950 500 / 950 Urethral 450 / 950 500 / 950 Other: Breakfast % Eaten 75% Lunch % Eaten 25% Number of Bowel Movements 1 Urine emmanuel Urine Color Yellow Last Bowel Movement 01/02/22 01/03/22 Stool Incontinent Incontinent Stool Amount Small Moderate Stool Color Dark Brown DARK GREEN Stool Consistency Pasty Pasty Weight 96.6 kg - Constitutional Present: no acute distress - Routine HEENT Exam Head: Present: normal inspection - Routine Neck Exam Present: supple - Routine Respiratory Exam Absent: accessory muscle use, respiratory distress - Routine Cardiovascular Exam Cardiovascular: Present: S1, S2 - Routine Abdominal Exam Present: soft. Absent: mass - Routine Neurological Exam Present: altered mental status Hem/Onc Consult Result - Labs CBC & Chem 7: 01/03/22 06:09 01/03/22 06:09 Labs: Short CBC 01/03/22 Range/Units 06:09 WBC 1.4 L (4.8-10.8) X10*3/uL Hgb 11.6 L (12.0-16.0) g/dl Hct 35.3 L (37.0-47.0) % Plt Count 182 (160-400) X10*3/uL BMP 01/03/22 06:09 Sodium 133 L Potassium 3.1 L Chloride 102 Carbon Dioxide 22 BUN 13 Creatinine 0.73 Calcium 9.8 Liver Function 01/03/22 Range/Units 06:09 Total Bilirubin 0.3 (0.0-1.0) mg/dL Direct Bilirubin 0.2 (0.0-0.5) mg/dL AST 31 (5-31) U/L ALT 39 H (0-31) U/L Alkaline Phosphatase 81 (39-117) U/L Albumin 3.4 L (3.5-5.0) g/dL Assessment and Plan Patient Active problem list reviewed?: Yes (1) Leukopenia Status: Acute Assessment and plan: 1. This is a pleasant 31-year-old woman with multiple medical problems who been admitted for acute hypoxic respiratory failure secondary to COVID-19 pneumonia, who was developed acute leukopenia/neutropenia. She was started on Depakote/valproate on 12/27/2021. Her dose was increased to 500 Q 8 on 12/29/2021. This coincides with decline in WBC count and neutropenia. She has no t had leukopenia or neutropenia in the past. Depakote can cause hematological disorders which includes leukopenia/neutropenia and thrombocytopenia could be dose related. Direct suppression of bone marrow is also responsible for some cytopenias, usually aplastic anemia. As she has developed moderately severe neutropenia with ANC of 300, I would recommend discontinuing Depakote and monitoring her blood counts. Seroquel can also cause leukopenia and agranulocytosis. However, she has been on this medication prior to admission and therefore less likely to be implicated for her leukopenia. I thank you for this consultation. - Time Spent With Patient Time Spent with Patient (in minutes): 20
[2022-01-03] MEDS: LORazepam 2 MG/ML VIAL 1 MG IVPUSH (13:14)
[2022-01-03 15:14] VITALS: BP 140/66; PULSE 80; RESP 20; TEMP 36.9; O2SAT 90
[2022-01-03 16:00] LABS: Glucose, Whole Blood 279 mg/dL (60-115)
--- NOTE | 2022-01-03 18:39 | PC.NURSE ---
MD NOTIFIED OF PAIN IN PATIENTS FEET. PER MD CAN GIVE SCHEDULED LYRICA EARLY.
[2022-01-03 19:03] VITALS: BP 131/87; PULSE 78; RESP 20; TEMP 36.7; O2SAT 99
[2022-01-03 19:39] LABS: Glucose, Whole Blood 241 mg/dL (60-115)
[2022-01-03] MEDS: QUEtiapine Fumarate 200 MG TABLET PO (20:24)
[2022-01-03] MEDS: OXcarbazepine 300 MG TABLET PO (20:24)
[2022-01-03 23:05] VITALS: BP 122/83; PULSE 80; RESP 20; TEMP 36.7; O2SAT 100
[2022-01-04] VITALS (7 sets, daily range): BP systolic 99–129; BP diastolic 53–77; PULSE 125–137; RESP 16–20; TEMP 36.2–36.8; O2SAT 94–100
[2022-01-04] MEDS: LORazepam 2 MG/ML VIAL 1 MG IVPUSH ×2 (01:48→09:44)
[2022-01-04 06:11] LABS: Hematocrit 33.9 % (37.0-47.0); Hemoglobin 11.2 g/dl (12.0-16.0); Mean Corpuscular Hemoglobin 29.2 pg (27.0-33.0); Mean Corpuscular Volume 88.5 fL (80.0-98.0); Platelet Count 163 X10*3/uL (160-400); Red Blood Count 3.83 X10*6/uL (4.20-5.50); Red Cell Distribution Width 16.1 % (11.0-16.0)
[2022-01-04 06:16] LABS: White Blood Count 2.5 X10*3/uL (4.8-10.8)
[2022-01-04 06:32] LABS: Anion Gap 15 (12-20); Blood Urea Nitrogen 15 mg/dL (9-16); Calcium 9.1 mg/dL (8.4-10.2); Carbon Dioxide 22 mmol/L (22-29); Chloride 101 mmol/L (96-108); Creatinine Clr Calc Pharmacy 115.9; Estimated Glomerular Filt Rate > 60; Glucose Fasting 179 mg/dL (60-99); Potassium 3.5 mmol/L (3.3-5.1); Sodium 134 mmol/L (135-145)
[2022-01-04 07:13] LABS: Glucose, Whole Blood 163 mg/dL (60-115)
[2022-01-04] MEDS: Enoxaparin Sodium 40 MG/0.4 ML SYRINGE SUBCUT (09:16)
[2022-01-04] MEDS: 0.9 % Sodium Chloride Flush 3 ML SYRINGE IVFLUSH ×3 (09:17→21:58)
[2022-01-04] MEDS: Insulin Lispro 100 UNIT/ML 3 ML VIAL SUBCUT ×2 (09:17→12:05)
[2022-01-04] MEDS: OXcarbazepine 300 MG TABLET PO ×2 (09:18→21:57)
[2022-01-04] MEDS: Benztropine Mesylate 1 MG TABLET 2 MG PO ×2 (09:18→21:58)
[2022-01-04] MEDS: Levothyroxine Sodium 100 MCG/5 ML VIAL 37.5 MCG IVPUSH (09:18)
[2022-01-04] MEDS: Pregabalin 100 MG CAPSULE PO ×2 (09:19→21:58)
[2022-01-04] MEDS: Nystatin Powder 15 GM BOTTLE 1 APPL TOPICAL ×2 (09:19→22:05)
[2022-01-04 11:03] LABS: Glucose, Whole Blood 324 mg/dL (60-115)
--- NOTE | 2022-01-04 11:33 | MHC.SL.SWA ---
Speech Pathologist Impression: Risk of Aspiration Oralpharyngeal Dysphagia Risk of Aspiration Due to: Lethargy Neurological Condition Poor PO Intake Dysphasia Diet Status: Upgrade Liquid Consistency and Strategies for Safe Swallow: Liquid Intake Recommendation: Thin Liquid Intake Strategies: Small Sips Solid Food Consistency: Dietary Recommendations: Chopped/Advanced (NDD3) Additional Modifications to Solid Foods: Recommend UPGRADE to CHOPPED/ADVANCED (NDD3) solids and THIN liquids, pills CRUSHED in PUREE. Patient has some trouble with coordination putting food into her mouth, but attempts to feed herself. She requires continued 1:1 supervision during meals, assistance as needed with tray set up and throughout meals. Continue aspiration precautions. THRASHER FEEDER updated diet order in [facility] [place] and sent message to MD, RN, RD via [employer]. Goal is for patient to resume unmodified diet when appropriate. THRASHER FEEDER will continue to follow to monitor tolerance and for re-assessment of potential upgrade. Oral Medication Intake: Crushed with Puree Please contact the pharmacy regarding appropriate crushable or liquid drug formulations that are available whenever modified delivery is recommended. Compensatory Strategies and Precautions to be Taken for Safe Swallow: Sitting Upright (90 deg) Small Bites and Sips Alternate Liquids/Solids Rate of Ingestion Change Oral Check Supervision While Eating and Drinking for Safe Swallow: Total Assistance (1:1) Foods to Avoid: sticky consistencies. Swallowing Recommended Treatments: Compens. Strategy Educat. Recommendation for Speech: Inpatient Speech Therapy Comment: Patient still requires assistance feeding. Continue aspiration precautions. Cut Off Saw Operator Pipe Blanks Clinican/Clinical Fellow: No Supervisory Statement: I have reviewed and agree with the student/clinical fellow's documentation: N/A Speech Language Pathologist: Savanna Tadeo M.A., CCC-THRASHER FEEDER
--- NOTE | 2022-01-04 12:52 | P.PNIM_ITS ---
Subjective Subjective Date of Service: 01/04/22 Interval History: seen and evaluated this morning More interactive and alert Still anxious, having tremors in her upper extremities No reported other overnight events. Systemic review: No fever, chills But reported feeling generalized weakness No chest pain, palpitation No shortness of breath or coughing No abdominal pain, nausea or vomiting No urinary symptoms Physical Exam Vital Signs: Vital Signs: Last Vital Signs Temp 98.0 F 01/04/22 11:07 Pulse 130 H 01/04/22 11:07 Resp 18 01/04/22 11:07 BP 100/77 01/04/22 11:07 Pulse Ox 100 01/04/22 11:07 Oxygen Flow Rate 4 11/29/21 11:52 BMI result Body Mass Index 43.0 Const: Other: Constitutional : Alert, interactive, mildly anxious Neck : Normal inspection, Supple Cardiovascular : RRR, S1 S2, no lower extremity edema, tachycardia Respiratory : fair bilateral air entry, no crackles, wheezes or rhonchi Gastrointestinal: soft, lax, Normal bowel sounds, Non tender Skin : Warm, Dry, petechial rash in her back improved Neurological : Alert & oriented to self and place, bilateral lower extremity weakness power +3, resting tremors bilaterally in upper extremities Objective Data Active Medications Benztropine Mesylate (Benztropine Mesylate 1 Mg Tablet) 2 mg PO BID [facility] Last Admin: 01/04/22 09:18 Dose: 2 mg Documented by: HECTOR Enoxaparin Sodium (Enoxaparin Sodium 40 Mg/0.4 Ml Syringe) 40 mg SUBCUT Q24H [facility] Last Admin: 01/04/22 09:16 Dose: 40 mg Documented by: HECTOR Insulin Human Lispro (Insulin Lispro 100 Unit/Ml 3 Ml Vial) 0 unit SUBCUT QIDACHS [facility]; Protocol Last Admin: 01/04/22 09:17 Dose: 2 unit Documented by: HECTOR Comments: POC 160s Lorazepam (Lorazepam 1 Mg Tablet) 1 mg PO TID PRN PRN Reason: anxiety/restlessness Nystatin (Nystatin Powder 15 Gm Bottle) 1 appl TOPICAL BID [facility]; Protocol Last Admin: 01/04/22 09:19 Dose: 1 appl Documented by: HECTOR Oxcarbazepine (Oxcarbazepine 300 Mg Tablet) 300 mg PO BID [facility] Last Admin: 01/04/22 09:18 Dose: 300 mg Documented by: HECTOR Pharmacy Consult (Consult Rx Perform Med Rec) 1 each MISCELLANE ONCE PRN PRN Reason: Consult order Pregabalin (Pregabalin 100 Mg Capsule) 100 mg PO BID [facility] Last Admin: 01/04/22 09:19 Dose: 100 mg Documented by: HECTOR Quetiapine Fumarate (Quetiapine Fumarate 200 Mg Tablet) 200 mg PO BEDTIME [facility] Last Admin: 01/03/22 20:24 Dose: 200 mg Documented by: JOHN Sodium Chloride (0.9 % Sodium Chloride Flush 3 Ml Syringe) 3 ml IVFLUSH QSHIFT [facility] Last Admin: 01/04/22 09:17 Dose: 3 ml Documented by: HECTOR Labs CBC & Chem 7: 01/04/22 05:55 01/04/22 05:55 Labs: Laboratory Results - last 24 hr 01/03/22 01/03/22 01/04/22 15:54 19:34 05:55 MCV 88.5 MCH 29.2 MCHC 33.0 RDW 16.1 H Plt Count 163 MPV 11.0 Absolute Nucleated RBC 0.000 Nucleated RBC % (auto) 0.0 Anion Gap Estim Creat Clear Calc Estimated GFR POC Glucose 279 H 241 H Fasting Glucose Calcium 01/04/22 01/04/22 01/04/22 05:55 07:05 10:57 MCV MCH MCHC RDW Plt Count MPV Absolute Nucleated RBC Nucleated RBC % (auto) Anion Gap 15 Estim Creat Clear Calc 115.9 Estimated GFR > 60 POC Glucose 163 H 324 H Fasting Glucose 179 H Calcium 9.1 D Assessment and Plan (1) Leukopenia: Status: Acute (2) Encephalopathy: Status: Acute (3) Dysphagia: Status: Acute (4) Tremor of unknown origin: Status: Acute Plan 31-year-old type 2 diabetic morbidly obese female with a background of bipolar disorder and has autoimmune, IGA deficiecny, encephalitis and peripheral polyneuropathy for which she gets monthly IV IG and once yearly rituximab, was admitted for acute hypoxic respiratory failure due to covid, course was complciated by progressive AMS and agitation requiring intubation and ICU stay. extensive work up including EEG and LP did not revela specific diagnosis. she w as eventually extubated after diuresis and dexmedetomide. she is now on room air, responding to commands, but not hadnt been talking until am 12/28/21, now talking more, eating, weaned off tpn. metabolic encephalopathy improving Could be secondary to agitated delerium, autoimmune or COVID encephalitis vs seizure MRI repeated, no acute findings IVIG completed as patient has improved no longer planning to trasnfer to [facility] depakote Discontinued cogentin 2mg bid dysphagia seen by FLIGHT ATTENDANT who recommended advanced diet, now off tpn neutropenia hematology eval, recommended discontinue Depakote as it is directly related to bone marrow suppression Monitor CBC iv access DC TLC, no need for back 9 Place regular IV peripherally tremor concern for EPS continue cogentin stop haldol bipolar stop haldol, will slowly titrate up seroquel (less EPS) psychiatry to re-evaluate the patient autoimmune peripheral neuropathy +FGFR3 antibody [facility] [place] follow up titrate lyrica back up, Increased to 100 b.i.d. now purpuric rash - resolved not due to depakote COVID-19 infection appears resolved pcr and antigen now negative and > 20 days out, dced airborne precautions DM insulin CRISPIN resolved hypernatremia resolved dvt prophylaxis lovenox dispo - will need rehab Quality Stroke Does the patient have a stroke diagnosis?: No VTE Prior VTE?: No VTE Risk Level:: Medical - moderate - high VTE Device Contraindication: Treatment Not Indicated VTE Drug Contraindication: N/A - Med Ordered
--- NOTE | 2022-01-04 14:03 | MHC.CM.PN ---
Addendum entered by Zaira Zafar 01/04/22 15:53: PT eval completed today. REC STR vs Acute. Documentation of PT eval was sent to facilities. Original Note: Female 31 DX Covid Met with Pt and her Mother. The plan is [facility]. A referral has been made. PT and OT evals pending. Patient will transport via BLS.
[2022-01-04] MEDS: LORazepam 1 MG TABLET PO ×2 (15:33→21:57)
--- NOTE | 2022-01-04 16:17 | P.CNPS_ITS ---
History of Present Illness Date of Service: 01/04/22 Chief Complaint: covid Reason for Consult: Re-initiation of oral psychiatric medications. Requesting physician: Lore Fernandez Discussed with referring provider: Yes Sources of Information: patient interviewed and chart reviewed Additional Sources of Information: Discussed with patient's mother who was in room with patient. 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 Recent EEG did not reveal any seizure activity. Outpatient medications prior to admission include Wellbutrin 100 mg daily, Trileptal 450 mg b.i.d., Seroquel 600 mg at bedtime, and trazodone 100 mg at bedtime. Message left with outpatient psychiatrist office Dr. Daina Daley, at [phone]. Patient was resting in recliner next to bed when designer writer entered room. Mother was present. Client said 'hello, nice to meet you when I introduced myself. Mother reports that she has been ?really depressed?, and that when she is on all of her regularly scheduled psychiatric medications she does not display any symptoms of depression. Patient was tearful at times, moving legs in hands. She conversed minimally, and referred to her mother for most information. Past Psychiatric History: Patient has outpatient psychiatrist, Dr. Daina Daley. Longstanding history bipolar disorder. Per chart review, patient had reported history of AH and paranoia. Medical Evaluation Reviewed: Yes Personal & Social History: Disabled. Lives with parents, who provide 24 hour daily care, and also care for her 2 young sons. Review of Systems Review of Systems Yes all other systems are reviewed and are negative Constitutional: Reports no additional constitutional complaints [facility] Medical History Acquired hypothyroidism ARDS (adult respiratory distress syndrome) Bipolar disorder Diabetes mellitus with hyperglycemia Esophagitis with gastritis Essential hypertension Gastric paresis Hyperlipidemia Hypogammaglobulinemia Muscle weakness Obesity, morbid, BMI 40.0-49.9 Peripheral neuropathy Pneumonia due to 2019 novel coronavirus Vitamin D deficiency Surgical History Hx of section Hx of tooth extraction Family History: unknown (adopted) Social History: Requires 24/7 care, lives with parents. Has 2 young sons that also live with her and her parents. Substance History: unknown Trauma History: unknown Diagnostics Vital Signs (24Hr): Vital Signs - 24 hr 01/03/22 19:03 01/03/22 23:05 01/04/22 04:00 Temperature 98.0 F 98.0 F 97.2 F Pulse Rate 78 80 137 H Respiratory Rate 20 20 19 Blood Pressure 131/87 122/83 110/70 Pulse Oximetry 99 100 94 01/04/22 07:08 01/04/22 10:41 01/04/22 11:07 Temperature 97.8 F 98.0 F Pulse Rate 125 H 125 H 130 H Respiratory Rate 18 18 Blood Pressure 106/74 106/74 100/77 Pulse Oximetry 94 94 100 01/04/22 15:04 Temperature 98.3 F Pulse Rate 132 H Respiratory Rate 20 Blood Pressure 129/74 Pulse Oximetry 96 BMI result Body Mass Index 43.0 Labs Results: 01/04/22 05:55 01/04/22 05:55 Labs: Laboratory Results - last 48 hr 12/10/21 01/02/22 01/03/22 23:35 19:56 06:09 WBC 1.4 L RBC 4.00 L Hgb 11.6 L Hct 35.3 L MCV 88.3 MCH 29.0 MCHC 32.9 RDW 16.0 Plt Count 182 MPV 11.0 Immature Gran % (Auto) 3.5 H Neut % (Auto) 23.5 L Lymph % (Auto) 40.4 H [place] % (Auto) 29.1 H Eos % (Auto) 2.1 Baso % (Auto) 1.4 Lymph # (Auto) 0.6 L [place] # (Auto) 0.4 Eos # (Auto) 0.0 Baso # (Auto) 0.0 Abs Immat Gran (auto) 0.05 H Absolute Neuts (auto) 0.3 L Absolute Nucleated RBC 0.000 Nucleated RBC % (auto) 0.0 Smear Tech's Comments Not Reportable Smear Path Review SEE NOTE Sodium Potassium Chloride Carbon Dioxide Anion Gap BUN Creatinine Estim Creat Clear Calc Estimated GFR POC Glucose 229 H Fasting Glucose Calcium Total Bilirubin Direct Bilirubin AST ALT Alkaline Phosphatase Total Protein Albumin TSH CSF Total Protein PEP 26 CSF Prealbumin 8.3 CSF Albumin 50.0 CSF Otjfy-5-Tvysxtje 8.6 CSF Xipcr-1-Bvitkxoq 8.6 CSF Beta Globulin 17.1 CSF Gamma Globulin 7.0 CSF PEP Interpret SEE COMMENT 01/03/22 01/03/22 01/03/22 06:09 06:09 07:22 WBC RBC Hgb Hct MCV MCH MCHC RDW Plt Count MPV Immature Gran % (Auto) Neut % (Auto) Lymph % (Auto) [place] % (Auto) Eos % (Auto) Baso % (Auto) Lymph # (Auto) [place] # (Auto) Eos # (Auto) Baso # (Auto) Abs Immat Gran (auto) Absolute Neuts (auto) Absolute Nucleated RBC Nucleated RBC % (auto) Smear Tech's Comments Smear Path Review Sodium 133 L Potassium 3.1 L Chloride 102 Carbon Dioxide 22 Anion Gap 12 BUN 13 Creatinine 0.73 Estim Creat Clear Calc 112.7 Estimated GFR > 60 POC Glucose 187 H Fasting Glucose 199 H Calcium 9.8 Total Bilirubin 0.3 Direct Bilirubin 0.2 AST 31 ALT 39 H Alkaline Phosphatase 81 Total Protein 8.4 H Albumin 3.4 L TSH 0.33 CSF Total Protein PEP CSF Prealbumin CSF Albumin CSF Ppwzn-5-Kdayxtns CSF Awxay-8-Potybyrz CSF Beta Globulin CSF Gamma Globulin CSF PEP Interpret 01/03/22 01/03/22 01/03/22 11:12 15:54 19:34 WBC RBC Hgb Hct MCV MCH MCHC RDW Plt Count MPV Immature Gran % (Auto) Neut % (Auto) Lymph % (Auto) [place] % (Auto) Eos % (Auto) Baso % (Auto) Lymph # (Auto) [place] # (Auto) Eos # (Auto) Baso # (Auto) Abs Immat Gran (auto) Absolute Neuts (auto) Absolute Nucleated RBC Nucleated RBC % (auto) Smear Tech's Comments Smear Path Review Sodium Potassium Chloride Carbon Dioxide Anion Gap BUN Creatinine Estim Creat Clear Calc Estimated GFR POC Glucose 270 H 279 H 241 H Fasting Glucose Calcium Total Bilirubin Direct Bilirubin AST ALT Alkaline Phosphatase Total Protein Albumin TSH CSF Total Protein PEP CSF Prealbumin CSF Albumin CSF Relph-8-Crusjsbz CSF Mabsc-8-Cwkrdkea CSF Beta Globulin CSF Gamma Globulin CSF PEP Interpret 01/04/22 01/04/22 01/04/22 05:55 05:55 07:05 WBC 2.5 L RBC 3.83 L Hgb 11.2 L Hct 33.9 L MCV 88.5 MCH 29.2 MCHC 33.0 RDW 16.1 H Plt Count 163 MPV 11.0 Immature Gran % (Auto) Neut % (Auto) Lymph % (Auto) [place] % (Auto) Eos % (Auto) Baso % (Auto) Lymph # (Auto) [place] # (Auto) Eos # (Auto) Baso # (Auto) Abs Immat Gran (auto) Absolute Neuts (auto) Absolute Nucleated RBC 0.000 Nucleated RBC % (auto) 0.0 Smear Tech's Comments Smear Path Review Sodium 134 L Potassium 3.5 Chloride 101 Carbon Dioxide 22 Anion Gap 15 BUN 15 Creatinine 0.71 Estim Creat Clear Calc 115.9 Estimated GFR > 60 POC Glucose 163 H Fasting Glucose 179 H Calcium 9.1 D Total Bilirubin Direct Bilirubin AST ALT Alkaline Phosphatase Total Protein Albumin TSH CSF Total Protein PEP CSF Prealbumin CSF Albumin CSF Isgnp-9-Xbfsjfum CSF Dqkkh-4-Qhioylac CSF Beta Globulin CSF Gamma Globulin CSF PEP Interpret 01/04/22 10:57 WBC RBC Hgb Hct MCV MCH MCHC RDW Plt Count MPV Immature Gran % (Auto) Neut % (Auto) Lymph % (Auto) [place] % (Auto) Eos % (Auto) Baso % (Auto) Lymph # (Auto) [place] # (Auto) Eos # (Auto) Baso # (Auto) Abs Immat Gran (auto) Absolute Neuts (auto) Absolute Nucleated RBC Nucleated RBC % (auto) Smear Tech's Comments Smear Path Review Sodium Potassium Chloride Carbon Dioxide Anion Gap BUN Creatinine Estim Creat Clear Calc Estimated GFR POC Glucose 324 H Fasting Glucose Calcium Total Bilirubin Direct Bilirubin AST ALT Alkaline Phosphatase Total Protein Albumin TSH CSF Total Protein PEP CSF Prealbumin CSF Albumin CSF Yjaxr-0-Kirjslzw CSF Tbxvm-5-Pytmqvsw CSF Beta Globulin CSF Gamma Globulin CSF PEP Interpret Imaging Radiology Impressions: ITS Impressions Chest X-Ray 11/29/21 11:47 IMPRESSION: Low lung volumes and new bilateral infiltrates. Chest CTA 11/30/21 14:13 IMPRESSION: Limited exam due to artifact from respiratory motion. No large or central pulmonary embolism. Low lung volumes and bilateral groundglass attenuation infiltrates compatible with Covid infection. Probable hepatosplenomegaly. VTE: negative KUB X-Ray 12/01/21 12:49 IMPRESSION: No evidence of bowel obstruction. Markedly distended bladder. Chest X-Ray 12/04/21 08:32 IMPRESSION: Low lung volumes and bilateral infiltrates similar to recent exams. Chest X-Ray 12/10/21 11:50 IMPRESSION: Hypoexpanded lungs without acute process. Chest X-Ray 12/10/21 12:54 IMPRESSION: Enteric tube in expected position. Brain MRI 12/10/21 14:36 IMPRESSION: 1. Suboptimal study due to patient motion artifact and habitus. 2. There are no acute bleeds or infarcts demonstrated on the available images. No masses are seen. The study redemonstrates abnormal FLAIR signal in the posterior thalami bilaterally, less extensive compared to the prior study. Chest X-Ray 12/10/21 23:00 IMPRESSION: Endotracheal tube terminating approximately 2 cm above the zuleyka. Right internal jugular central venous catheter terminates over the right atrium on the second image. This positioning in the atrium may be accentuated by the low lung volumes. Could consider partial retraction. Clear lungs. Abdomen/Pelvis CT 12/11/21 14:57 IMPRESSION: *Pulmonary infiltrates and subsegmental atelectasis developed at the lung bases bilaterally presumably pneumonia. *Circumferential wall thickening of the urinary bladder, suspect possible cystitis. There is a Kern catheter in place. *Excess amount of stool especially in the rectum suggests possible fecal impaction. *Abdomen otherwise is unremarkable. No evidence of bowel obstruction. No CT evidence of other intra-abdominal inflammatory process. *Small anterior abdominal wall hernia containing fat. Chest X-Ray 12/12/21 14:17 IMPRESSION: The endotracheal tube tip projects over the right mainstem bronchus and should be pulled back several centimeters. Volume loss to the left lung and increasing left lung atelectasis or infiltrate. Left jugular line tip is not well seen. This may project over the right atrium. Nasogastric tube projects over the stomach, tip not seen. Findings were communicated to nurse Laylane by telephone on 12/12/2021 and 3:07 PM. Chest X-Ray 12/13/21 07:15 IMPRESSION: Stable lines and catheters. Hypoventilated lungs with new patchy opacity in both upper lobes. No change in the left lower lobe atelectasis/infiltrate. Chest CT 12/13/21 17:06 IMPRESSION: Worsening pulmonary aeration with increased airspace opacities in the lower lungs, worsening hazy attenuation of the upper lobes, and new small bilateral pleural effusions. The endotracheal tube terminates at 1 cm above the zuleyka, similar since earlier today. Recommend repositioning. Chest X-Ray 12/16/21 08:00 IMPRESSION: -Support apparatus appears stable. -Hypoinflated lungs without lobar consolidation. Brain MRI 12/20/21 09:54 IMPRESSION: Exam is technically limited by artifact. No acute infarcts. No definite significant intracranial findings though assessment is limited. Mental Status Exam Mental Status Exam Narrative: Well-developed, overweight female. Appear to be anxious, with some movement of hands and lower extremities, as if rocking at times. Speech was minimal but coherent. Patient did make eye contact with me, and was able to smile. I was unable to further assess her mental status, due to her condition. She did state ?mommy? several times during encounter, and appeared tearful at times. Patient Appearance: Fatigued and Appropriate Medications Medications Current Medications Benztropine Mesylate (Benztropine Mesylate 1 Mg Tablet) 2 mg PO BID [facility] Last Admin: 01/04/22 09:18 Dose: 2 mg Documented by: Enoxaparin Sodium (Enoxaparin Sodium 40 Mg/0.4 Ml Syringe) 40 mg SUBCUT Q24H [facility] Last Admin: 01/04/22 09:16 Dose: 40 mg Documented by: Insulin Human Lispro (Insulin Lispro 100 Unit/Ml 3 Ml Vial) 0 unit SUBCUT QIDACHS [facility]; Protocol Last Admin: 01/04/22 12:05 Dose: 8 unit Documented by: Lorazepam (Lorazepam 1 Mg Tablet) 1 mg PO TID PRN PRN Reason: anxiety/restlessness Last Admin: 01/04/22 15:33 Dose: 1 mg Documented by: Lorazepam (Lorazepam 2 Mg/Ml Vial) 1 mg IV ONCE ONE Stop: 01/04/22 16:15 Nystatin (Nystatin Powder 15 Gm Bottle) 1 appl TOPICAL BID [facility]; Protocol Last Admin: 01/04/22 09:19 Dose: 1 appl Documented by: Oxcarbazepine (Oxcarbazepine 300 Mg Tablet) 300 mg PO BID [facility] Last Admin: 01/04/22 09:18 Dose: 300 mg Documented by: Pharmacy Consult (Consult Rx Perform Med Rec) 1 each MISCELLANE ONCE PRN PRN Reason: Consult order Pregabalin (Pregabalin 100 Mg Capsule) 100 mg PO BID [facility] Last Admin: 01/04/22 09:19 Dose: 100 mg Documented by: Quetiapine Fumarate (Quetiapine Fumarate 200 Mg Tablet) 200 mg PO BEDTIME [facility] Last Admin: 01/03/22 20:24 Dose: 200 mg Documented by: Sodium Chloride (0.9 % Sodium Chloride Flush 3 Ml Syringe) 3 ml IVFLUSH QSHIFT [facility] Last Admin: 01/04/22 09:17 Dose: 3 ml Documented by: Allergies Allergies Allergy/AdvReac Type Severity Reaction Status Date / Time latex Allergy Unknown rash Verified 11/14/21 00:57 metoclopramide [From REGLAN] AdvReac Unknown INTERACTS Verified 11/14/21 00:57 W/ SEROQUEL Assessment & Plan Assessment & Plan (1) Bipolar disorder: Status: Acute Code(s): F31.9 - Bipolar disorder, unspecified Assessment and Plan: Susy has already been started back with oral Seroquel, at 200 mg at bedtime. Trileptal has been started at 300 mg twice daily. Her mother is requesting full resumption psychiatric medications at full doses. It was explained that a slow introduction and titration would be needed, so as to prevent over-sedation, as well as induction of a hypomanic or manic episode. Plan 1. Continue Trileptal at 300 mg b.i.d. at this time. 2. Slow titration of Seroquel, increasing by 50-100 mg every 3-4 days is recommended. 3. Continue to hold Wellbutrin and trazodone at this time. I have discussed these recommendations with Dr. Lore Fernandez, via secure messaging system. Thank you I spent minutes with the patient and/or on the patient floor today, greater than?50% of which was spent counseling/coordinating care.
[2022-01-04 16:28] LABS: Glucose, Whole Blood 127 mg/dL (60-115)
[2022-01-04] MEDS: LORazepam 2 MG/ML VIAL 1 MG IV (17:12)
[2022-01-04 20:37] LABS: Glucose, Whole Blood 148 mg/dL (60-115)
[2022-01-04] MEDS: QUEtiapine Fumarate 200 MG TABLET PO (21:57)
[2022-01-05 04:00] VITALS: BP 101/56; PULSE 123; RESP 18; TEMP 37.3; O2SAT 96
[2022-01-05 06:21] LABS: Hematocrit 35.6 % (37.0-47.0); Hemoglobin 11.5 g/dl (12.0-16.0); Mean Corpuscular HGB Conc 32.3 g/dl (31.0-35.0); Mean Corpuscular Hemoglobin 28.8 pg (27.0-33.0); Mean Platelet Volume 10.7 fL (9.4-12.3); Platelet Count 174 X10*3/uL (160-400); Red Cell Distribution Width 15.8 % (11.0-16.0)
[2022-01-05 06:33] LABS: Anion Gap 16 (12-20); Blood Urea Nitrogen 13 mg/dL (9-16); Calcium 9.2 mg/dL (8.4-10.2); Carbon Dioxide 22 mmol/L (22-29); Chloride 101 mmol/L (96-108); Creatinine Clr Calc Pharmacy 111.2; Estimated Glomerular Filt Rate > 60; Glucose Random 170 mg/dL (60-115); Potassium 3.5 mmol/L (3.3-5.1); Sodium 135 mmol/L (135-145)
[2022-01-05 07:23] VITALS: BP 108/60; PULSE 125; RESP 20; TEMP 36.3; O2SAT 93
[2022-01-05 07:32] LABS: Glucose, Whole Blood 160 mg/dL (60-115)
[2022-01-05 08:03] LABS: Imm Gran Abs Auto 0.03 X10*3/uL (0.00-0.03); Imm Gran Pct Auto 1.5 % (0.0-0.4); Lymphocytes Absolute Auto 0.6 X10*3/uL (1.2-4.9); MANUAL DIFF FLAG SCAN; Monocytes Absolute Auto 0.6 X10*3/uL (0.1-1.2); Neutrophils Absolute Auto 0.7 x10*3/uL (2.0-8.3); Neutrophils Percent Auto 36.5 % (45-73); SCAN SMEAR FLAG 1
[2022-01-05 08:52] LABS: SLIDE REVIEW VERIFIED
[2022-01-05] MEDS: Insulin Lispro 100 UNIT/ML 3 ML VIAL SUBCUT ×3 (09:07→19:49)
[2022-01-05] MEDS: Enoxaparin Sodium 40 MG/0.4 ML SYRINGE SUBCUT (09:08)
[2022-01-05] MEDS: OXcarbazepine 300 MG TABLET PO ×2 (09:08→19:50)
[2022-01-05] MEDS: 0.9 % Sodium Chloride Flush 3 ML SYRINGE IVFLUSH ×3 (09:08→19:50)
[2022-01-05] MEDS: Benztropine Mesylate 1 MG TABLET 2 MG PO ×2 (09:08→19:49)
[2022-01-05] MEDS: Nystatin Powder 15 GM BOTTLE 1 APPL TOPICAL ×2 (09:09→19:50)
[2022-01-05] MEDS: Pregabalin 100 MG CAPSULE PO ×2 (09:09→19:50)
[2022-01-05 09:34] VITALS: BP 108/60; PULSE 125; O2SAT 93
--- NOTE | 2022-01-05 10:40 | MHC.SL.SWA ---
Speech Pathologist Impression: Risk of Aspiration Oralpharyngeal Dysphagia Risk of Aspiration Due to: Lethargy Neurological Condition Poor PO Intake Dysphasia Diet Status: Upgrade Liquid Consistency and Strategies for Safe Swallow: Liquid Intake Recommendation: Thin Liquid Intake Strategies: Small Sips Solid Food Consistency: Dietary Recommendations: Regular Additional Modifications to Solid Foods: Recommend UPGRADE to REGULAR solids and THIN liquids, pills WHOLE or CRUSHED in PUREE. Patient has some trouble with coordination putting food into her mouth, but attempts to feed herself. Continue aspiration precautions and 1:1 assistance. [facility] and sent message to MD, RN, RD via [employer]. Patient tolerates unmodified consistencies- D/C ST intervention. Please re-refer if there are any changes or future concerns. Oral Medication Intake: Crushed with Puree Please contact the pharmacy regarding appropriate crushable or liquid drug formulations that are available whenever modified delivery is recommended. Compensatory Strategies and Precautions to be Taken for Safe Swallow: Sitting Upright (90 deg) Small Bites and Sips Alternate Liquids/Solids Rate of Ingestion Change Supervision While Eating and Drinking for Safe Swallow: Total Assistance (1:1) Foods to Avoid: sticky consistencies. Swallowing Recommended Treatments: Compens. Strategy Educat. Recommendation for Speech: D/C Corporate Development Associate Clinican/Clinical Fellow: No Supervisory Statement: I have reviewed and agree with the student/clinical fellow's documentation: N/A Speech Language Pathologist: Savanna Tadeo M.A., [facility]
--- NOTE | 2022-01-05 10:44 | P.PNIM_ITS ---
Subjective Subjective Date of Service: 01/05/22 Interval History: seen and evaluated this morning Sitting in the bed but have difficulties staying up from weakness More interactive and alert Still anxious, having tremors in her upper extremities No reported other overnight events. Systemic review: No fever, chills But reported feeling generalized weakness No chest pain, palpitation No shortness of breath or coughing No abdominal pain, nausea or vomiting No urinary symptoms Physical Exam Vital Signs: Vital Signs: Last Vital Signs Temp 97.3 F 01/05/22 07:23 Pulse 125 H 01/05/22 09:34 Resp 20 01/05/22 07:23 BP 108/60 01/05/22 09:34 Pulse Ox 93 01/05/22 09:34 Oxygen Flow Rate 4 11/29/21 11:52 BMI result Body Mass Index 43.0 Const: Other: Constitutional : Alert, interactive, mildly anxious Neck : Normal inspection, Supple Cardiovascular : RRR, S1 S2, no lower extremity edema, Sinus tachycardia Respiratory : fair bilateral air entry, no crackles, wheezes or rhonchi Gastrointestinal: soft, lax, Normal bowel sounds, Non tender Skin : Warm, Dry, petechial rash in her back improved Neurological : Alert & oriented to self and place, bilateral lower extremity weakness power +3, resting tremors bilaterally in upper extremities Objective Data Active Medications Benztropine Mesylate (Benztropine Mesylate 1 Mg Tablet) 2 mg PO BID [facility] Last Admin: 01/05/22 09:08 Dose: 2 mg Documented by: ARTHUR Enoxaparin Sodium (Enoxaparin Sodium 40 Mg/0.4 Ml Syringe) 40 mg SUBCUT Q24H [facility] Last Admin: 01/05/22 09:08 Dose: 40 mg Documented by: ARTHUR Insulin Human Lispro (Insulin Lispro 100 Unit/Ml 3 Ml Vial) 0 unit SUBCUT QIDACHS [facility]; Protocol Last Admin: 01/05/22 09:07 Dose: 2 unit Documented by: ARTHUR Lorazepam (Lorazepam 1 Mg Tablet) 1 mg PO TID PRN PRN Reason: anxiety/restlessness Last Admin: 01/04/22 21:57 Dose: 1 mg Documented by: CHRISTOPH Nystatin (Nystatin Powder 15 Gm Bottle) 1 appl TOPICAL BID [facility]; Protocol Last Admin: 01/05/22 09:09 Dose: 1 appl Documented by: ARTHUR Oxcarbazepine (Oxcarbazepine 300 Mg Tablet) 300 mg PO BID [facility] Last Admin: 01/05/22 09:08 Dose: 300 mg Documented by: ARTHUR Pharmacy Consult (Consult Rx Perform Med Rec) 1 each MISCELLANE ONCE PRN PRN Reason: Consult order Pregabalin (Pregabalin 100 Mg Capsule) 100 mg PO BID [facility] Last Admin: 01/05/22 09:09 Dose: 100 mg Documented by: ARTHUR Quetiapine Fumarate (Quetiapine Fumarate 200 Mg Tablet) 200 mg PO BEDTIME [facility] Last Admin: 01/04/22 21:57 Dose: 200 mg Documented by: CHRISTOPH Sodium Chloride (0.9 % Sodium Chloride Flush 3 Ml Syringe) 3 ml IVFLUSH QSHIFT [facility] Last Admin: 01/05/22 09:08 Dose: 3 ml Documented by: ARTHUR Labs CBC & Chem 7: 01/05/22 06:00 01/05/22 06:00 Labs: Laboratory Results - last 24 hr 01/04/22 01/04/22 01/04/22 10:57 16:23 20:32 MCV MCH MCHC RDW Plt Count MPV Immature Gran % (Auto) Neut % (Auto) Lymph % (Auto) [place] % (Auto) Eos % (Auto) Baso % (Auto) Lymph # (Auto) [place] # (Auto) Eos # (Auto) Baso # (Auto) Abs Immat Gran (auto) Absolute Neuts (auto) Absolute Nucleated RBC Nucleated RBC % (auto) Smear Tech's Comments Anion Gap Estim Creat Clear Calc Estimated GFR POC Glucose 324 H 127 H 148 H Random Glucose Calcium 01/05/22 01/05/22 01/05/22 06:00 06:00 07:21 MCV 89.0 MCH 28.8 MCHC 32.3 RDW 15.8 Plt Count 174 MPV 10.7 Immature Gran % (Auto) 1.5 H Neut % (Auto) 36.5 L Lymph % (Auto) 30.0 [place] % (Auto) 29.0 H Eos % (Auto) 2.0 Baso % (Auto) 1.0 Lymph # (Auto) 0.6 L [place] # (Auto) 0.6 Eos # (Auto) 0.0 Baso # (Auto) 0.0 Abs Immat Gran (auto) 0.03 Absolute Neuts (auto) 0.7 L Absolute Nucleated RBC 0.000 Nucleated RBC % (auto) 0.0 Smear Tech's Comments VERIFIED Anion Gap 16 Estim Creat Clear Calc 111.2 Estimated GFR > 60 POC Glucose 160 H Random Glucose 170 H Calcium 9.2 Assessment and Plan (1) Leukopenia: Status: Acute (2) Dysphagia: Status: Acute (3) Encephalopathy: Status: Acute Plan 31-year-old type 2 diabetic morbidly obese female with a background of bipolar disorder and has autoimmune, IGA deficiecny, encephalitis and peripheral polyneuropathy for which she gets monthly IV IG and once yearly rituximab, was admitted for acute hypoxic respiratory failure due to covid, course was complciated by progressive AMS and agitation requiring intubation and ICU stay. extensive work up including EEG and LP did not revela specific diagnosis. she was eventually extubated after diuresis and dexmedetomide. she is now on room air, responding to commands, but not hadnt been talking until am 12/28/21, now talking more, eating, weaned off tpn. metabolic encephalopathy improving Could be secondary to agitated delerium, autoimmune or COVID encephalitis vs seizure MRI repeated, no acute findings IVIG completed as patient has improved no longer planning to trasnfer to [facility] gen depakote Discontinued cogentin 2mg bid dysphagia seen by TIME BROKER who recommended advanced diet, now off tpn neutropenia improved, ANC of 700 hematology eval, recommended discontinue Depakote as it is directly related to bone marrow suppression to follow-up as outpatient Monitor CBC tremor concern for EPS continue cogentin stop haldol bipolar stop haldol, will slowly titrate up seroquel (less EPS) psychiatry to re-evaluate the patient autoimmune peripheral neuropathy +FGFR3 antibody outpatient [facility] follow up titrate lyrica back up, Increased to 100 b.i.d. now purpuric rash - resolved not due to depakote COVID-19 infection appears resolved pcr and antigen now negative and > 20 days out, dced airborne precautions DM insulin CRISPIN resolved hypernatremia resolved dvt prophylaxis lovenox dispo - will need rehab Quality Stroke Does the patient have a stroke diagnosis?: No VTE Prior VTE?: No VTE Risk Level:: Medical - moderate - high VTE Device Contraindication: Treatment Not Indicated VTE Drug Contraindication: N/A - Med Ordered
[2022-01-05] MEDS: LORazepam 1 MG TABLET PO ×2 (10:50→19:49)
[2022-01-05 11:01] VITALS: BP 104/50; PULSE 127; RESP 20; TEMP 36.4; O2SAT 94
[2022-01-05 11:26] LABS: Glucose, Whole Blood 229 mg/dL (60-115)
[2022-01-05 15:21] VITALS: BP 120/95; PULSE 120; RESP 20; TEMP 36.1; O2SAT 96
[2022-01-05 16:12] LABS: Glucose, Whole Blood 148 mg/dL (60-115)
[2022-01-05 19:28] LABS: Glucose, Whole Blood 190 mg/dL (60-115)
[2022-01-05 19:33] VITALS: BP 125/76; PULSE 117; RESP 16; TEMP 36.5; O2SAT 97
[2022-01-05] MEDS: QUEtiapine Fumarate 200 MG TABLET PO (19:50)
[2022-01-06] VITALS: PULSE 115; RESP 18
[2022-01-06 03:11] VITALS: BP 107/71; PULSE 115; RESP 19; TEMP 36.6; O2SAT 99
[2022-01-06] MEDS: LORazepam 1 MG TABLET PO (04:10)
[2022-01-06 07:06] VITALS: BP 122/76; PULSE 111; RESP 18; TEMP 36.6; O2SAT 98
[2022-01-06 07:43] LABS: Glucose, Whole Blood 145 mg/dL (60-115)
[2022-01-06] MEDS: Enoxaparin Sodium 40 MG/0.4 ML SYRINGE SUBCUT (09:47)
[2022-01-06] MEDS: Pregabalin 100 MG CAPSULE PO (09:48)
[2022-01-06] MEDS: OXcarbazepine 300 MG TABLET PO (09:48)
[2022-01-06] MEDS: 0.9 % Sodium Chloride Flush 3 ML SYRINGE IVFLUSH (09:48)
[2022-01-06] MEDS: Nystatin Powder 15 GM BOTTLE 1 APPL TOPICAL (09:48)
[2022-01-06] MEDS: Benztropine Mesylate 1 MG TABLET 2 MG PO (09:48)
[2022-01-06 09:51] VITALS: BP 122/76; PULSE 111; O2SAT 98
[2022-01-06 11:18] VITALS: BP 120/71; PULSE 120; RESP 18; TEMP 36.4; O2SAT 99
--- NOTE | 2022-01-06 11:22 | HO.PM.IMPN ---
Subjective Subjective Date of Service: 01/06/22 Interval History: seen and evaluated this morning Sitting in the bed with more strength and able to balance herself better More interactive and alert Less anxious, having some tremors but less obvious than before No reported other overnight events. Systemic review: No fever, chills But reported feeling generalized weakness No chest pain, palpitation No shortness of breath or coughing No abdominal pain, nausea or vomiting No urinary symptoms Physical Exam Vital Signs: Vital Signs: Last Vital Signs Temp 97.5 F 01/06/22 11:18 Pulse 120 H 01/06/22 11:18 Resp 18 01/06/22 11:18 BP 120/71 01/06/22 11:18 Pulse Ox 99 01/06/22 11:18 Oxygen Flow Rate 4 11/29/21 11:52 BMI result Body Mass Index 43.0 Const: Other: Constitutional : Alert, interactive, looks more strong Neck : Normal inspection, Supple Cardiovascular : RRR, S1 S2, no lower extremity edema, Sinus tachycardia Respiratory : fair bilateral air entry, no crackles, wheezes or rhonchi Gastrointestinal: soft, lax, Normal bowel sounds, Non tender Skin : Warm, Dry, petechial rash in her back improved Neurological : Alert & oriented to self and place, bilateral lower extremity weakness power +3, less resting tremors bilaterally in upper extremities Objective Data Active Medications Benztropine Mesylate (Benztropine Mesylate 1 Mg Tablet) 2 mg PO BID [facility] Last Admin: 01/06/22 09:48 Dose: 2 mg Documented by: HÉCTOR Enoxaparin Sodium (Enoxaparin Sodium 40 Mg/0.4 Ml Syringe) 40 mg SUBCUT Q24H [facility] Last Admin: 01/06/22 09:47 Dose: 40 mg Documented by: HÉCTOR Insulin Human Lispro (Insulin Lispro 100 Unit/Ml 3 Ml Vial) 0 unit SUBCUT QIDACHS [facility]; Protocol Last Admin: 01/06/22 08:00 Dose: Not Given Documented by: HÉCTOR Non-Admin Reason: No Insulin Coverage Lorazepam (Lorazepam 1 Mg Tablet) 1 mg PO TID PRN PRN Reason: anxiety/restlessness Last Admin: 01/06/22 04:10 Dose: 1 mg Documented by: JUVENAL Nystatin (Nystatin Powder 15 Gm Bottle) 1 appl TOPICAL BID [facility]; Protocol Last Admin: 01/06/22 09:48 Dose: 1 appl Documented by: HÉCTOR Oxcarbazepine (Oxcarbazepine 300 Mg Tablet) 300 mg PO BID [facility] Last Admin: 01/06/22 09:48 Dose: 300 mg Documented by: HÉCTOR Pharmacy Consult (Consult Rx Perform Med Rec) 1 each MISCELLANE ONCE PRN PRN Reason: Consult order Pregabalin (Pregabalin 100 Mg Capsule) 100 mg PO BID [facility] Last Admin: 01/06/22 09:48 Dose: 100 mg Documented by: HÉCTOR Quetiapine Fumarate (Quetiapine Fumarate 200 Mg Tablet) 200 mg PO BEDTIME [facility] Last Admin: 01/05/22 19:50 Dose: 200 mg Documented by: RANJEET Sodium Chloride (0.9 % Sodium Chloride Flush 3 Ml Syringe) 3 ml IVFLUSH QSHIFT [facility] Last Admin: 01/06/22 09:48 Dose: 3 ml Documented by: HÉCTOR Labs CBC & Chem 7: 01/05/22 06:00 01/05/22 06:00 Labs: Laboratory Results - last 24 hr 01/05/22 01/05/22 01/05/22 10:58 16:09 19:24 POC Glucose 229 H 148 H 190 H 01/06/22 07:24 POC Glucose 145 H Assessment and Plan (1) Leukopenia: Status: Acute (2) Tremor of unknown origin: Status: Acute (3) Encephalopathy: Status: Acute Plan 31-year-old type 2 diabetic morbidly obese female with a background of bipolar disorder and has autoimmune, IGA deficiecny, encephalitis and peripheral polyneuropathy for which she gets monthly IV IG and once yearly rituximab, was admitted for acute hypoxic respiratory failure due to covid, course was complciated by progressive AMS and agitation requiring intubation and ICU stay. extensive work up including EEG and LP did not revela specific diagnosis. she was eventually extubated after diuresis and dexmedetomide. she is now on room air, responding to commands, but not hadnt been talking until am 12/28/21, now talking more, eating, weaned off tpn. metabolic encephalopathy improving secondary to agitated delerium, autoimmune or COVID encephalitis vs seizure MRI repeated, no acute findings IVIG completed depakote Discontinued cogentin 2mg bid dysphagia seen by [employer] who recommended advanced diet to regular neutropenia improved, ANC of 700 hematology eval, recommended discontinue Depakote as it is directly related to bone marrow suppression to follow-up as outpatient Monitor CBC tremor concern for EPS continue cogentin stop haldol bipolar stop haldol, will slowly titrate up seroquel (less EPS) psychiatry to re-evaluate the patient autoimmune peripheral neuropathy +FGFR3 antibody outpatient [facility] follow up titrate lyrica back up, Increased to 100 b.i.d. now purpuric rash - resolved not due to depakote COVID-19 infection appears resolved pcr and antigen now negative and > 20 days out, dced airborne precautions DM insulin CRISPIN resolved hypernatremia resolved Physical deconditioning Working with PT and OT with significant improvement over the last few days Recommending placement for rehab dvt prophylaxis lovenox Quality Stroke Does the patient have a stroke diagnosis?: No VTE Prior VTE?: No VTE Risk Level:: Medical - moderate - high VTE Device Contraindication: Treatment Not Indicated VTE Drug Contraindication: N/A - Med Ordered
[2022-01-06 11:30] LABS: Glucose, Whole Blood 209 mg/dL (60-115)
[2022-01-06] MEDS: Insulin Lispro 100 UNIT/ML 3 ML VIAL SUBCUT (12:09)
--- NOTE | 2022-01-06 14:00 | P.CNPS_ITS ---
History of Present Illness Date of Service: 01/06/22 Chief Complaint: covid Reason for Consult: Psychiatry consult follow-up visit Requesting physician: Lore Fernandez Discussed with referring provider: Yes Sources of Information: patient interviewed and chart reviewed HPI Narrative: was resting in bed today, appeared comfortable, sitting up, propped with pillows. She was alert and oriented. She knew that she was at [facility], and she knew her doctor's name. She was fully coherent during encounter. When asked about date, she stated November . When she was told that it actually was December, she became tearful, saying that she missed her son's birthday while she was here. She stated that she did not remember much over the past month of her hospital stay, but she was aware that she had been here for some time. We discussed her current medications, and the need to titrate slowly with her mood stabilizers prior to adding back her antidepressant. When asked if she feels depressed, she stated ?no ?. When asked if she felt any symptoms of hypomania, she stated no, but that she becomes frustrated at times, and really wishes to go home. She stated at home she has never alone, as one of her parents is always with her, as well has her sons. Past Psychiatric History: Patient has outpatient psychiatrist, Dr. Daina Daley. Longstanding history bipolar disorder. Per chart review, patient had reported history of AH and paranoia. Medical Evaluation Reviewed: Yes Review of Systems Review of Systems Reports overall she feels she is improving, denies any complaints. Yes all other systems are reviewed and are negative Constitutional: Reports no additional constitutional complaints [facility] Medical History Acquired hypothyroidism ARDS (adult respiratory distress syndrome) Bipolar disorder Diabetes mellitus with hyperglycemia Esophagitis with gastritis Essential hypertension Gastric paresis Hyperlipidemia Hypogammaglobulinemia Muscle weakness Obesity, morbid, BMI 40.0-49.9 Peripheral neuropathy Pneumonia due to 2019 novel coronavirus Vitamin D deficiency Surgical History Hx of section Hx of tooth extraction Family History: unknown (adopted) Social History: Requires 24/7 care, lives with parents. Has 2 young sons that also live with her and her parents. Trauma History: unknown Diagnostics Vital Signs (24Hr): Vital Signs - 24 hr 01/05/22 15:21 01/05/22 19:33 01/06/22 00:00 Temperature 97.0 F 97.7 F Pulse Rate 120 H 117 H 115 H Respiratory Rate 20 16 18 Blood Pressure 120/95 H 125/76 Pulse Oximetry 96 97 01/06/22 03:11 01/06/22 07:06 01/06/22 09:51 Temperature 97.8 F 97.8 F Pulse Rate 115 H 111 H 111 H Respiratory Rate 19 18 Blood Pressure 107/71 122/76 122/76 Pulse Oximetry 99 98 98 01/06/22 11:18 Temperature 97.5 F Pulse Rate 120 H Respiratory Rate 18 Blood Pressure 120/71 Pulse Oximetry 99 BMI result Body Mass Index 43.0 Labs Results: 01/05/22 06:00 01/05/22 06:00 Labs: Laboratory Results - last 48 hr 01/04/22 01/04/22 01/05/22 16:23 20:32 06:00 WBC 2.0 L RBC 4.00 L Hgb 11.5 L Hct 35.6 L MCV 89.0 MCH 28.8 MCHC 32.3 RDW 15.8 Plt Count 174 MPV 10.7 Immature Gran % (Auto) 1.5 H Neut % (Auto) 36.5 L Lymph % (Auto) 30.0 [place] % (Auto) 29.0 H Eos % (Auto) 2.0 Baso % (Auto) 1.0 Lymph # (Auto) 0.6 L [place] # (Auto) 0.6 Eos # (Auto) 0.0 Baso # (Auto) 0.0 Abs Immat Gran (auto) 0.03 Absolute Neuts (auto) 0.7 L Absolute Nucleated RBC 0.000 Nucleated RBC % (auto) 0.0 Smear Tech's Comments VERIFIED Sodium Potassium Chloride Carbon Dioxide Anion Gap BUN Creatinine Estim Creat Clear Calc Estimated GFR POC Glucose 127 H 148 H Random Glucose Calcium 01/05/22 01/05/22 01/05/22 06:00 07:21 10:58 WBC RBC Hgb Hct MCV MCH MCHC RDW Plt Count MPV Immature Gran % (Auto) Neut % (Auto) Lymph % (Auto) [place] % (Auto) Eos % (Auto) Baso % (Auto) Lymph # (Auto) [place] # (Auto) Eos # (Auto) Baso # (Auto) Abs Immat Gran (auto) Absolute Neuts (auto) Absolute Nucleated RBC Nucleated RBC % (auto) Smear Tech's Comments Sodium 135 Potassium 3.5 Chloride 101 Carbon Dioxide 22 Anion Gap 16 BUN 13 Creatinine 0.74 Estim Creat Clear Calc 111.2 Estimated GFR > 60 POC Glucose 160 H 229 H Random Glucose 170 H Calcium 9.2 01/05/22 01/05/22 01/06/22 16:09 19:24 07:24 WBC RBC Hgb Hct MCV MCH MCHC RDW Plt Count MPV Immature Gran % (Auto) Neut % (Auto) Lymph % (Auto) [place] % (Auto) Eos % (Auto) Baso % (Auto) Lymph # (Auto) [place] # (Auto) Eos # (Auto) Baso # (Auto) Abs Immat Gran (auto) Absolute Neuts (auto) Absolute Nucleated RBC Nucleated RBC % (auto) Smear Tech's Comments Sodium Potassium Chloride Carbon Dioxide Anion Gap BUN Creatinine Estim Creat Clear Calc Estimated GFR POC Glucose 148 H 190 H 145 H Random Glucose Calcium 01/06/22 11:14 WBC RBC Hgb Hct MCV MCH MCHC RDW Plt Count MPV Immature Gran % (Auto) Neut % (Auto) Lymph % (Auto) [place] % (Auto) Eos % (Auto) Baso % (Auto) Lymph # (Auto) [place] # (Auto) Eos # (Auto) Baso # (Auto) Abs Immat Gran (auto) Absolute Neuts (auto) Absolute Nucleated RBC Nucleated RBC % (auto) Smear Tech's Comments Sodium Potassium Chloride Carbon Dioxide Anion Gap BUN Creatinine Estim Creat Clear Calc Estimated GFR POC Glucose 209 H Random Glucose Calcium Imaging Radiology Impressions: ITS Impressions Chest X-Ray 11/29/21 11:47 IMPRESSION: Low lung volumes and new bilateral infiltrates. Chest CTA 11/30/21 14:13 IMPRESSION: Limited exam due to artifact from respiratory motion. No large or central pulmonary embolism. Low lung volumes and bilateral groundglass attenuation infiltrates compatible with Covid infection. Probable hepatosplenomegaly. VTE: negative KUB X-Ray 12/01/21 12:49 IMPRESSION: No evidence of bowel obstruction. Markedly distended bladder. Chest X-Ray 12/04/21 08:32 IMPRESSION: Low lung volumes and bilateral infiltrates similar to recent exams. Chest X-Ray 12/10/21 11:50 IMPRESSION: Hypoexpanded lungs without acute process. Chest X-Ray 12/10/21 12:54 IMPRESSION: Enteric tube in expected position. Brain MRI 12/10/21 14:36 IMPRESSION: 1. Suboptimal study due to patient motion artifact and habitus. 2. There are no acute bleeds or infarcts demonstrated on the available images. No masses are seen. The study redemonstrates abnormal FLAIR signal in the posterior thalami bilaterally, less extensive compared to the prior study. Chest X-Ray 12/10/21 23:00 IMPRESSION: Endotracheal tube terminating approximately 2 cm above the zuleyka. Right internal jugular central venous catheter terminates over the right atrium on the second image. This positioning in the atrium may be accentuated by the low lung volumes. Could consider partial retraction. Clear lungs. Abdomen/Pelvis CT 12/11/21 14:57 IMPRESSION: *Pulmonary infiltrates and subsegmental atelectasis developed at the lung bases bilaterally presumably pneumonia. *Circumferential wall thickening of the urinary bladder, suspect possible cystitis. There is a Kern catheter in place. *Excess amount of stool especially in the rectum suggests possible fecal impaction. *Abdomen otherwise is unremarkable. No evidence of bowel obstruction. No CT evidence of other intra-abdominal inflammatory process. *Small anterior abdominal wall hernia containing fat. Chest X-Ray 12/12/21 14:17 IMPRESSION: The endotracheal tube tip projects over the right mainstem bronchus and should be pulled back several centimeters. Volume loss to the left lung and increasing left lung atelectasis or infiltrate. Left jugular line tip is not well seen. This may project over the right atrium. Nasogastric tube projects over the stomach, tip not seen. Findings were communicated to nurse Selenee by telephone on 12/12/2021 and 3:07 PM. Chest X-Ray 12/13/21 07:15 IMPRESSION: Stable lines and catheters. Hypoventilated lungs with new patchy opacity in both upper lobes. No change in the left lower lobe atelectasis/infiltrate. Chest CT 12/13/21 17:06 IMPRESSION: Worsening pulmonary aeration with increased airspace opacities in the lower lungs, worsening hazy attenuation of the upper lobes, and new small bilateral pleural effusions. The endotracheal tube terminates at 1 cm above the zuleyka, similar since earlier today. Recommend repositioning. Chest X-Ray 12/16/21 08:00 IMPRESSION: -Support apparatus appears stable. -Hypoinflated lungs without lobar consolidation. Brain MRI 12/20/21 09:54 IMPRESSION: Exam is technically limited by artifact. No acute infarcts. No definite significant intracranial findings though assessment is limited. Mental Status Exam Mental Status Exam Narrative: Resting in bed, fully alert and conversant. Bilat tremor noted. Speech clear, articulate, coherent. Tearful at times, when discussing missing her sons, the fact that she missed one of her children's birthdays while hospitalized, and wishing to go home. Denies any thought of harm to self or others, no SI. Denied any auditory or visual hallucinations, and did not appear to be responding to any internal stimuli. Patient Appearance: Fatigued and Appropriate Patient Orientation: Person, Place, Time and Situation Level of Consciousness: Awake, Appropriate and Alert Patient Behavior: Appropriate, Cooperative and Good Eye Contact Mood Description: Calm and Appropriate Affect Description: Calm and Appropriate Patient Cognition Impaired: No Ability to Follow Directions: Good Speech Pattern: Clear, Appropriate and Coherent Memory Description: Recent Impaired Hallucinations: None Delusions: Not Present Thought Process: Intact and Rumination (some ruminating, focused on wanting to go home) Thought Content: positive for Intact, positive for Goal Oriented and positive for Linear Abnormal Motor Activity Signs and Symptoms: Tremors Judgement: Good Medications Medications Current Medications Benztropine Mesylate (Benztropine Mesylate 1 Mg Tablet) 2 mg PO BID [facility] Last Admin: 01/06/22 09:48 Dose: 2 mg Documented by: Enoxaparin Sodium (Enoxaparin Sodium 40 Mg/0.4 Ml Syringe) 40 mg SUBCUT Q24H [facility] Last Admin: 01/06/22 09:47 Dose: 40 mg Documented by: Insulin Human Lispro (Insulin Lispro 100 Unit/Ml 3 Ml Vial) 0 unit SUBCUT QIDACHS [facility]; Protocol Last Admin: 01/06/22 12:09 Dose: 4 unit Documented by: Lorazepam (Lorazepam 1 Mg Tablet) 1 mg PO TID PRN PRN Reason: anxiety/restlessness Last Admin: 01/06/22 04:10 Dose: 1 mg Documented by: Nystatin (Nystatin Powder 15 Gm Bottle) 1 appl TOPICAL BID [facility]; Protocol Last Admin: 01/06/22 09:48 Dose: 1 appl Documented by: Oxcarbazepine (Oxcarbazepine 300 Mg Tablet) 300 mg PO BID [facility] Last Admin: 01/06/22 09:48 Dose: 300 mg Documented by: Pharmacy Consult (Consult Rx Perform Med Rec) 1 each MISCELLANE ONCE PRN PRN Reason: Consult order Pregabalin (Pregabalin 100 Mg Capsule) 100 mg PO BID [facility] Last Admin: 01/06/22 09:48 Dose: 100 mg Documented by: Quetiapine Fumarate (Quetiapine Fumarate 200 Mg Tablet) 200 mg PO BEDTIME [facility] Last Admin: 01/05/22 19:50 Dose: 200 mg Documented by: Sodium Chloride (0.9 % Sodium Chloride Flush 3 Ml Syringe) 3 ml IVFLUSH QSHIFT [facility] Last Admin: 01/06/22 09:48 Dose: 3 ml Documented by: Allergies Allergies Allergy/AdvReac Type Severity Reaction Status Date / Time latex Allergy Unknown rash Verified 11/14/21 00:57 metoclopramide [From REGLAN] AdvReac Unknown INTERACTS Verified 11/14/21 00:57 W/ SEROQUEL Assessment & Plan Assessment & Plan (1) Bipolar disorder: Status: Acute Code(s): F31.9 - Bipolar disorder, unspecified Assessment and Plan: Patient denies any mood lability, in none was noted during encounter. Denies any hallucinations, and did not appear to be responding to internal stimuli in any way. Explained rationale for titration schedule regarding Seroquel and Trileptal, she was in agreement with this plan. Plan 1. Continue slow titration upwards Seroquel, 50-100 mg increase as tolerated, every 3-4 days. 2. Continue with Trileptal 300 mg b.i.d.. 3. Continue to hold antidepressants until mood stabilizers are established at therapeutic doses. I spent 30_ minutes with the patient and/or on the patient floor today, greater than?50% of which was spent counseling/coordinating care. Patient educated on: diagnosis, medication risk/benefits, therapeutic strategies and medical condition Informed Consent: understands
--- NOTE | 2022-01-06 14:56 | P.F2F_ITS ---
Service Date Service Date: 01/06/22 Encounter Date of encounter: 01/06/22 Reasons for Services Signs and symptoms assessed: Physical deconditioning Reason for residential: medication treatment and teach disease management Reason for physical therapy: home safety and mobility and therapeutic exercises Reason for occupational therapy: home safety and mobility and therapeutic exercises Homebound: Leaving the home is medically contraindicated at this time without the asist of a device and/or another person due th the listed conditions above and below. Reason homebound: unsteady gait / fall risk Certification: Based on the above findings, I certify that this patient is confined to the home and needs intermittent residential care, physical therapy and/or speech therapy, or continues to need occupational therapy. The patient is under my care, and I have initiated the establishment of the plan of care. The patient will be followed by a physician who will periodically review the plan of care.
--- NOTE | 2022-01-06 14:57 | P.DS_ITS ---
DS: Providers Provider Date of Service: 01/06/22 Date of admission: 11/29/21 17:00 Primary care physician: Lachelle Guerra MD Consults: 11/29/21 16:59 Consult to Infectious Diseases Routine Consulting Provider: Doreen Torres Reason for consultation: covid Has provider been notified: No 11/29/21 17:04 Consult to Infectious Diseases Routine Consulting Provider: Doreen Torres Reason for consultation: esbl hx Has provider been notified: No 12/08/21 11:44 Consult to Care Team Routine Comment: Reason for consultation: increase anxiety, altered mentation 12/08/21 13:02 Consult to Psychiatry Routine Consulting Provider: Psych Covering Reason for consultation: increase anxiety, altered mentation, polypharmacy for your advice 12/09/21 11:47 Consult to Neurology Routine Consulting Provider: [facility] Reason for consultation: AMS, unable to make sentences, for your kind eval. 12/10/21 11:36 Consult to Nephrology Routine Consulting Provider: Aden Sacledo Reason for consultation: Hypernatremia 12/12/21 15:53 Consult to Pulmonology Routine Consulting Provider: Davion Mcrae Reason for consultation: atelectasis Has provider been notified: Yes 12/12/21 20:03 Consult to Infectious Diseases Routine Consulting Provider: Doreen Torres Reason for consultation: RESTRICTED ANTIFUNGAL 12/14/21 06:42 Consult to Pulmonology Routine Consulting Provider: Salvador Muniz Reason for consultation: immune depresed/pneumonia/hypoxia Has provider been notified: Yes 12/21/21 10:29 Consult to Psychiatry Routine Consulting Provider: Psych Covering Reason for consultation: Medications advice, refuses PO, non verbal, poly pharmacy. 01/03/22 10:25 Consult to Hematology / Oncology Routine Consulting Provider: Kae Ramos Reason for consultation: neutropenia DS: Diagnosis Discharge Diagnosis (1) Bipolar disorder: Status: Acute DS: Summary Hospital Course Hospital Course: For full details please go back to full EMR. Admission note HPI A? 31-year-old woman with a history of multiple medical problems presenting to the ER with fever, tachycardia and hypoxia.? Apparently she was receiving her IV IG (see history of autoimmune polyneuropathy).? Apparently the patient had symptoms for 11 days and tested positive approximately 1 week ago.? She did receive 2 Pfizer vaccines.? She does have some memory issues however she denied shortness of breath, chest pain, nausea, vomiting, diarrhea, fever.? She did report a dry cough. ? Her inflammatory markers are significantly elevated along with LFTs, urinalysis positive for UTI, recent.? In the ER she received some IV fluids, Zofran, albuterol, Tylenol, Decadron, meropenem.? She will be admitted for further management and treatment of acute hypoxic respiratory failure secondary to COVID-19. Hospital course A 31-year-old type 2 diabetic morbidly obese female with a background of bipolar disorder and has autoimmune, IGA deficiecny, encephalitis and peripheral polyneuropathy for which she gets monthly IV IG and twice yearly rituximab presented to in this hospital on 11/29/2021 with a fever, apparently at the time she had had symptoms of COVID for approximately 11 days (onset Nov) but was diagnosed COVID positive approximately the 22 of November of this year de spite of having had 2 Pfizer vaccines.? It is known at the time she had a dry cough but was not hypoxic and denied shortness of breath, her inflammatory markers have been elevated including LFTs, she had a positive urine and was recently treated for a UTI. ?On arrival to the ER her O2 sat had been 89% on room air; patient was admitted due to hypoxic respiratory failure in the setting of COVID-19 infection possible UTI. In the emergency room IV fluids, steroids, meropenem and was admitted for further management of her COVID symptoms. ?Around December 08 patient had worsened mental status pulling at her IVs and oxygen, she was found to be nonresponsive, given her agitation she had to be restrained, apparently nonverbal but spontaneously breathing on 4 L of oxygen She has refused her medications.? Her sodium has been elevated at 157 over 48 hours as she removed her IVs and was not other to enough to eat or drink. patient was seen by electronic plotting system operator who recommended aggressive fluid replacement; steroids were discontinued for the concern of steroid related psychosis, also due to concern of seizure Keppra was started. ?The patient has been seen by our neurologist Dr. Magaña who attributed her mental status changes to a metabolic/toxic encephalopathy as well as psychiatric disease.? Recommended a noncontrast MRI which did not show any acute findings as well as to resume her psych medications including ox carbamazepine and gabapentin which she could not take as psychiatry team recommended giving her Haldol [address] of the missing Seroquel and other psych meds and as needed Q4 PRN. A trial of Ativan was tried for possible catatonia but did not give any specific improvement and was discontinued by Psychiatry. LP was done showing no evidence of infection. Serology for viral encephalitis was negative as well. In ABG was done showing mixed respiratory alkalosis with metabolic acidosis with pH of 7.49, CO2 of 16 and HC03 of 12. Given her ongoing deterioration mental st atus changes and abnormal CT as reading she was transferred to ICU and intubated. At that time tried to be transferred to [facility] but they suggested giving the patient her missed dose of IVIG of 2 days from November which was done in ICU. Her electrolyte imbalance corrected as she received IV fluids and kidney function improved back to baseline. She was eventually extubated on December 12 and reintubated again the next day for 3 more days really extubated on December 17 and kept on Precedex as she remained agitated, not responsive and barely opening her eyes to physical or verbal stimuli. Central line was kept in and she was started on PPN. This might need to be removed and replaced by PICC line. Tested Covid -ve on Dec 21. EEG was done on December 22 and showed slow waves but no evidence of seizure. Patient was started on Keppra the day before the EEG was done for that concern as she had significant generalized tremors that never stopped since extubation . MRI was redone showing possible findings of encephalitis per neurologist but not reported by radiologist. Suggested treatment of IVIG for total of 5 days. The patient received the 1st dose on December 24. Psychiatry evaluated the patient and recommended starting Ativan 1 mg t.i.d. for possible catatonia with no significant changes, Started her on Haldol 1mg Q6 but then recommend to dc and keep her on Haldol 1mg Q4 PRN as she developed sinus tachycardia, mydriasis and sweating with no documented fever. Neurology recommended starting her on Depakote for possible seizure disorder and behavioral control. The patient started to show improvement as she finished 5 days of IVIG. Her white blood cells noted to be dropping down as hematology monitor asked to evaluate the patient recommending to discontinue her Depakote. ANC improved to almost 700. No signs of infection. She was evaluated by the speech therapy team who recommended restarting diet. TPN was discontinued as the patient started taking care oral pills. She was restarted on the oxcarbazepine with no signs of seizure activity noted as she continue to improve mentally And physically. Psychiatry team re-evaluated the patient and started titrating up her medications of Lyrica and Seroquel with recommendations to keep trazodone and bupropion on hold at the time of discharge and to be followed as outpatient with her psychiatrist. Physical and Occupational therapy evaluated the patient during the hospital stay and recommended going to short-term rehab for therapy. As patient continue to improve physically her family feels more comfortable taking her back home as he took care of her previously when she was quadriplegic. Plan to discharge her home with the current medications and to titrate up meds as recommended by her psychiatrist. to follow-up with her neurologist at [facility] as scheduled Time Spent with Patient Time attestation: Total time spent providing and/or coordinating discharge services: Discharge coordination time: Greater than 30 minutes Quality: Stroke Does the patient have a stroke diagnosis?: No Physical Exam Vital Signs: Vital Signs: Last Vital Signs Temp 97.5 F 01/06/22 11:18 Pulse 120 H 01/06/22 11:18 Resp 18 01/06/22 11:18 BP 120/71 01/06/22 11:18 Pulse Ox 99 01/06/22 11:18 Oxygen Flow Rate 4 11/29/21 11:52 BMI result Body Mass Index 43.0 Const: Other: Constitutional : Alert, interactive, looks more strong and steady on her feet Neck : Normal inspection, Supple Cardiovascular : RRR, S1 S2, no lower extremity edema, Sinus tachycardia Respiratory : fair bilateral air entry, no crackles, wheezes or rhonchi Gastrointestinal: soft, lax, Normal bowel sounds, Non tender Skin : Warm, Dry, petechial rash in her back improved Neurological : Alert & oriented to self and place, bilateral lower extremity weakness power +3, less resting tremors bilaterally in upper extremities DS: Data Data Completed and Pending Labs on day of discharge: Laboratory Results - last 24 hr 01/05/22 01/05/22 01/06/22 16:09 19:24 07:24 POC Glucose 148 H 190 H 145 H 01/06/22 11:14 POC Glucose 209 H Preliminary micro results at discharge 12/14/21 10:32 Nocardia Culture - Preliminary Bronchial Washings 12/10/21 23:34 Acid Fast Bacilli Culture & Smear - Preliminary Spine Discharge Plan Discharge Patient Disposition: Home Health Service Discharge Diagnosis: Encephalopathy Weakness Covid 19 infx; Hypoxic respiratory failure Electrolyte imbalance, Kidney injury Referrals: Lachelle Guerra MD [Primary Care Provider] - 1 Week Discharge Medications: New nystatin 100,000 unit/gram Powder 1 appl topical BID 1 Days 0RF Protocol: Apply to: Apply to: Affected areas oxcarbazepine 300 mg Tablet 300 mg PO BID 30 Days Qty: 60 0RF benztropine 1 mg Tablet 2 mg PO BID 30 Days Qty: 120 0RF lorazepam 1 mg Tablet 1 mg PO TID PRN (Reason: Anxiety/Restlessness) Qty: 30 0RF pregabalin [Lyrica] 100 mg Capsule 100 mg PO BID 30 Days Qty: 60 0RF Continued (DME) blood-glucose meter [FreeStyle Lite Meter] Kit See Rx Instructions .ROUTE .MEDSUPPLY Qty: 1 0RF Rx Instructions: 3 x/day Jardiance 10 mg tablet 10 mg PO QAM Qty: 30 6RF metformin 500 mg tablet 500 mg PO BID Qty: 60 2RF Rx Instructions: Take with meals pravastatin 20 mg tablet 20 mg PO BEDTIME Qty: 30 5RF levothyroxine [Euthyrox] 75 mcg tablet 75 mcg PO QAM Qty: 30 4RF medroxyprogesterone 150 mg/mL suspension 150 mg IM Q12W Qty: 1 2RF (DME) pen needle, diabetic [BD Wendy 2nd Gen Pen Needle] 32 gauge x needle See Rx Instructions .ROUTE .MEDSUPPLY Qty: 50 3RF Rx Instructions: As directed daily omega-3 fatty acids 1,000 mg capsule 2,000 mg PO BID Qty: 120 6RF pantoprazole 40 mg tablet,delayed release (DR/EC) 40 mg PO DAILY Qty: 30 3RF magnesium oxide 400 mg (241.3 mg magnesium) tablet 400 mg PO DAILY Qty: 30 0RF ferrous sulfate 325 mg (65 mg iron) tablet 325 mg PO BID Qty: 180 3RF thiamine HCl (vitamin B1) 100 mg tablet 100 mg PO DAILY Qty: 30 0RF cholecalciferol (vitamin D3) 1,250 mcg (50,000 unit) capsule 1,250 mcg PO MO 0RF chlorhexidine gluconate 0.12 % mouthwash 15 ml PO BID 0RF quetiapine 200 mg tablet 1 tab PO BEDTIME 0RF immun glob G(IgG)-gly-IgA ov50 10 gram/100 mL (10 %) Solution 500 ml SUBCUT Q4W 0RF immun glob G(IgG)-gly-IgA ov50 10 gram/100 mL (10 %) Solution 450 ml SUBCUT Q4W 0RF rituximab 10 mg/mL concentrate 10 mg IV [id number] 0RF Label Comments: LAST RECIEVED IN THE SPRING Rx Instructions: once every year melatonin 3 mg tablet 6 mg PO DAILY 0RF multivitamin Tablet 1 tab PO DAILY 0RF cranberry 400 mg capsule 450 mg PO DAILY 0RF Rx Instructions: administer with a meal albuterol sulfate 90 mcg/actuation HFA aerosol inhaler 1 inh inhalation QID PRN (Reason: shortness of breath or wheezing) Qty: 6.7 1RF Tresiba FlexTouch U-200 200 unit/mL (3 mL) insulin pen 20 unit subcut BEDTIME 30 Days Qty: 3 3RF (DME) FreeStyle Lite Strips Strip See Rx Instructions .ROUTE .MEDSUPPLY Qty: 100 11RF Rx Instructions: three times a day (DME) lancets [FreeStyle Lancets] 28 gauge misc See Rx Instructions .ROUTE .MEDSUPPLY Qty: 100 11RF Rx Instructions: As directed three time a day Held quetiapine 400 mg tablet 1 tab PO BEDTIME 0RF Hold Instructions: Pending MD recommendations pregabalin 300 mg capsule 300 mg PO BID 0RF Hold Instructions: Pending MD recommendations bupropion HCl 100 mg tablet sustained-release 12 hr 100 mg PO QAM 0RF Hold Instructions: Pending MD recommendations trazodone 100 mg tablet 100 mg PO BEDTIME 0RF Hold Instructions: Pending MD recommendations oxcarbazepine 150 mg tablet 450 mg PO BID 0RF Hold Instructions: Pending MD recommendations Discharge Orders: Discharge Order (Routine); Ordered 01/06/22 Ordered By: Lore Fernandez Diet: other Activity on Discharge: As tolerated Stand Alone Forms: Patient Portal Discharge page Care Plan Goals: Read below Health Concerns: Read below Plan of Treatment: Read below Assessment: Admitted for Covid19 infection. Developed respiratory failure requiring ICU stay. Mental status worsened during hospital stay and did not improve after coming back from the ICU with concerns over possible seizure, catatonia or encephalitis from the COVID infection. You were treated with IVIG, seizure medication, benzodiazepines as you were evaluated by psychiatry and Neurology teams. Her psychiatry medications were readjusted and we are titrating him up Start Cogentin for tremors Increase Seroquel and Lyrica as recommended by Psychiatry team Continue physical and occupational therapy at home To use lorazepam as needed for anxiety attacks Patient Instructions: Urinary Tract Infection in Women (DC)
== END 2022-01-06 17:30 | disposition home health service (06) | DRG 130 ==
LOC: HO.ED 12:11 → HO.EDOVER 17:14 → HO.IMC 12-01 01:41 → HO.ICU 12-10 19:48 → HO.IMC 12-17 16:30
PROVIDERS: Anesthesiology; Family Medicine; Hospitalist; Internal Medicine; Internal Medicine Cardiovascular Disease; Physician Assistant; Physician Assistant Medical; Admitting Provider Nurse Practitioner Acute Care; Emergency Provider Emergency Medicine; PCP Internal Medicine; Visit Provider Student in an Organized Health Care Education/Training Program
DX: U07.1 COVID-19 (principal); A41.89 Other specified sepsis; J12.82 Pneumonia due to coronavirus disease 2019; A85.8 Other specified viral encephalitis; G93.41 Metabolic encephalopathy; G40.901 Epilepsy, unspecified, not intractable, with status epilepticus; D70.2 Other drug-induced agranulocytosis; N17.9 Acute kidney failure, unspecified; J80 Acute respiratory distress syndrome; E11.9 Type 2 diabetes mellitus without complications; E03.9 Hypothyroidism, unspecified; G62.89 Other specified polyneuropathies; E87.0 Hyperosmolality and hypernatremia; E87.6 Hypokalemia; R33.9 Retention of urine, unspecified; F31.9 Bipolar disorder, unspecified; F05 Delirium due to known physiological condition; J98.09 Other diseases of bronchus, not elsewhere classified; N39.0 Urinary tract infection, site not specified; R13.10 Dysphagia, unspecified; R23.3 Spontaneous ecchymoses; E66.01 Morbid (severe) obesity due to excess calories; Z68.41 Body mass index [BMI] 40.0-44.9, adult; E86.0 Dehydration; G25.1 Drug-induced tremor; T38.0X5A Adverse effect of glucocorticoids and synthetic analogues, initial encounter; E87.4 Mixed disorder of acid-base balance; T42.6X5A Adverse effect of other antiepileptic and sedative-hypnotic drugs, initial encounter; T43.4X5A Adverse effect of butyrophenone and thiothixene neuroleptics, initial encounter; Y92.239 Unspecified place in hospital as the place of occurrence of the external cause; Z79.4 Long term (current) use of insulin; Z87.891 Personal history of nicotine dependence; Z79.890 Hormone replacement therapy; Z79.899 Other long term (current) drug therapy
CPT/HCPCS: 0241U; 36415; 36600; 70551; 71045; 71250; 71275; 74018; 74176; 80048; 80053; 80076; 80164; 81001; 82009; 82010; 82040; 82140; 82248; 82550; 82728; 82784; 82803; 82945; 82947; 83605; 83615; 83690; 83735; 83873; 83880; 84100; 84145; 84146; 84157; 84166; 84300; 84443; 84478; 84484; 84702; 85007; 85025; 85027; 85379; 85610; 85652; 86140; 86331; 86606; 86609; 86713; 86738; 86769; 87015; 87040; 87070; 87071; 87086; 87102; 87116; 87205; 87635; 87798; 89051; 92526; 92610; 93005; 93306; 94002; 94003; 94640; 94799; 95816; 96361; 96374; 96375; 97116; 97163; 97167; 97530; 99285; 99291; C1758; J0456; J0515; J0610; J0696; J1100; J1200; J1569; J1572; J1650; J1940; J1953; J2060; J2185; J2250; J2405; J2543; J2920; J2930; J3010; J3465; J3475; Q9957; Q9967

== ENCOUNTER 2022-01-19 16:38 | Outpatient (REF) | payer MEDICARE, MEDICAID, SELFPAY ==
[2022-01-19 17:05] LABS: Appearance Urine HAZY; Color Urine YELLOW; Glucose Urine UA >=1000 MG/DL (NEG); Leukocyte Esterase Urine 2+ (NEG); Nitrite Urine POS (NEG); PH 7.5 (5.0-8.0); Specific Gravity - Urine 1.015 (1.005-1.025); UACC Culture Trigger YES; Urine Blood TRACE (NEG); Urine Ketones NEG (NEG); Urine Protein TRACE MG/DL (NEG-TRACE)
[2022-01-19 17:23] LABS: Squamous Epithelial Cell Urine TRACE /LPF; WBC Urine TNTC /HPF (0-4)
[2022-01-19 17:24] LABS: Bacteria Urine 1+ /LPF
[2022-01-19 17:25] LABS: RBC Urine 0-2 /HPF (0)
== END 2022-01-19 16:39 | disposition home or self-care (01) ==
LOC: HO.LNP 16:38
PROVIDERS: Visit Provider Internal Medicine
DX: R30.0 Dysuria (principal); Z86.19 Personal history of other infectious and parasitic diseases
CPT/HCPCS: 81001; 81003; 87086; 87088; 87186

== ENCOUNTER 2022-01-22 17:24 | Inpatient (IN) | payer MEDICARE, MEDICAID, SELFPAY ==
--- NOTE | ~2022-01-22 | CT_ITS ---
EXAMINATION: CT CHEST, ABDOMEN AND PELVIS WITHOUT CONTRAST. CLINICAL INFORMATION: Shortness of breath and abdominal pain. COMPARISON: CT chest dated from 12/13/[address] abdomen/pelvis dated from 12/11/2021. TECHNIQUE: Multidetector volumetric imaging was performed from the thoracic inlet through the pubic symphysis without intravenous contrast. Sagittal and coronal reformatted images were obtained on the technologist's workstation. This CT examination was performed using dose optimization techniques as appropriate, variously including the following: *Automated exposure control *Adjustment of mA and/or kV according to patient size (this includes techniques or standardized protocols for targeted exams where dose is matched to indication/reason for exam; i.e. extremities or head) *Use of iterative reconstruction technique DLP: 451 and 1288 mGy-cm FINDINGS: Examination is significantly degraded due to motion. The lack of intravenous contrast limits evaluation of the solid visceral organs. CHEST: Lung: Markedly limited due to motion. Evaluation of pulmonary nodules is essentially nondiagnostic. However, accounting for these limitations, previously visualized multifocal airspace opacities in the CT from 12/13/2021 are markedly improved with minimal residual haziness. Low lung volumes with bronchovascular crowding and subsegmental atelectasis. Central airways are patent. Mediastinum: Normal heart size. No pericardial effusion. No mediastinal lymphadenopathy by size criteria. Evaluation of hilar structures and lymph nodes is suboptimal in the absence of intravenous contrast. Normal thyroid gland. Pericardium/Pleura: No pleural effusion. No pleural mass or thickening. No pneumothorax. Chest Wall/Axilla: No lymphadenopathy by size criteria. ABDOMEN/PELVIS: Peritoneal Space: No free air or free fluid. Liver, Gallbladder, Biliary Tree: The noncontrast liver is normal in size, shape, and attenuation. No focal hepatic lesion or biliary ductal dilatation is present. The gallbladder is unremarkable with no evidence of radiopaque gallstones, gallbladder wall thickening, or obvious pericholecystic inflammatory changes. Pancreas: Unremarkable. Spleen: Unremarkable. Adrenal Glands: Unremarkable. Kidneys and Ureters: The kidneys are normal in size, shape, and attenuation. No hydronephrosis, hydroureter, or calculi seen. No perinephric stranding. Bladder: Decompressed with K[place] and balloon in place. Air in the lumen probably from instrumentation. Gastrointestinal Tract: Significant motion limiting assessment of details. The stomach and small bowel are nondilated. The appendix is not identified. There is significant gaseous distention of a redundant sigmoid colon and moderate to large volume of stool burden in the ascending and transverse colon. No mesenteric stranding nor swirling of the vasculature to suggest a volvulus No pericolic inflammatory changes. No free fluid. Abdominal Wall: Fat-containing umbilical hernia. Lower abdominal wall injection sites. Lymphovascular Structures: Evaluation is limited due to motion and the absence of intravenous contrast. No bulky lymphadenopathy. No aneurysm of the abdominal aorta. Pelvic Viscera: Trace amount of free fluid is likely physiologic. Osseus Structures: No acute or aggressive osseous findings. CT/CT abdomen pelvis wo con IMPRESSION: Evaluation is significantly limited due to motion, and additionally the lack of intravenous contrast limits assessment of solid organs. Multifocal airspace opacities described on 12/13/2021 are markedly improved. No new focal airspace disease. Gaseous distention of the sigmoid and moderate to large volume of stool in the ascending and transverse colon.
--- NOTE | 2022-01-22 17:39 | ED.GENADULT ---
HPI - General Adult General Chief complaint: Urogenital-Female Stated complaint: LOW BACK PAIN,? KIDNEY INFECTION,H/O INF PER EMS Source: patient and EMS Mode of arrival: EMS Limitations: no limitations History of Present Illness HPI narrative: 32-year-old female presents via EMS for 4 days of lower back pain, weakness, intermittent fevers. Onset (ago): day(s) (4) Location: back, abdomen and pelvis Radiation: non-radiation Severity: moderate Severity scale (1-10): 6 Quality: aching Pain Consistency: constant Relieving factors: none Associated symptoms: fever/chills, loss of appetite, malaise and weakness Treatments prior to arrival: none Related Data Home Medications Medication Instructions Recorded Confirmed bupropion HCl 100 mg tablet,12 hr 100 mg PO QAM 11/30/20 01/22/22 sustained-release trazodone 100 mg tablet 100 mg PO BEDTIME 11/30/20 01/22/22 cranberry 400 mg capsule 400 mg PO DAILY cap 03/22/21 01/22/22 melatonin 3 mg tablet 6 mg PO BEDTIME 03/22/21 01/22/22 multivitamin 1 tab PO DAILY 03/22/21 01/22/22 pregabalin 300 mg capsule 300 mg PO BID cap 05/10/21 01/22/22 rituximab 10 mg/mL 10 mg IV [id number] 08/11/21 01/22/22 concentrate,intravenous oxcarbazepine 150 mg tablet 150 mg PO BID tab 08/18/21 01/22/22 chlorhexidine gluconate 0.12 % 15 ml PO BID 11/29/21 01/22/22 mouthwash quetiapine 400 mg tablet 1 tab PO BEDTIME 11/29/21 01/22/22 immun glob G 10 gram/100 450 ml SUBCUT Q4W 12/14/21 01/22/22 mL(10%)-gly-IgA ov50 mcg/mL subcutaneous soln immun glob G 10 gram/100 500 ml SUBCUT Q4W 12/14/21 01/22/22 mL(10%)-gly-IgA ov50 mcg/mL subcutaneous soln benztropine 1 mg tablet 1 mg PO BID 01/22/22 01/22/22 cholecalciferol (vitamin D3) 1,250 1,250 mcg PO TH 01/22/22 01/22/22 mcg (50,000 unit) capsule insulin degludec 200 unit/mL (3 20 unit SUBCUT BEDTIME PRN 01/22/22 01/22/22 mL) subcutaneous pen (Tresiba FlexTouch U-200 insulin) Previous Rx's Medication Instructions Recorded blood sugar diagnostic (FreeStyle #100 ea 05/10/21 Lite Strips) lancets 28 gauge (FreeStyle #100 ea 05/10/21 Lancets) blood-glucose meter (FreeStyle #1 ea 05/31/21 Lite Meter) metformin 500 mg tablet 500 mg PO BID #60 tab 08/08/21 pravastatin 20 mg tablet 20 mg PO BEDTIME #30 tab 09/16/21 levothyroxine 75 mcg tablet 75 mcg PO QAM #30 cap 09/26/21 (Euthyrox) medroxyprogesterone 150 mg/mL 150 mg IM Q12W #1 ml 11/08/21 intramuscular suspension pen needle, diabetic 32 gauge x #50 ea 11/17/21 (BD Wendy 2nd Gen Pen Needle) magnesium oxide 400 mg (241.3 mg 400 mg PO DAILY #30 tab 11/22/21 magnesium) tablet pantoprazole 40 mg tablet,delayed 40 mg PO DAILY #30 cap 11/22/21 release albuterol sulfate 90 mcg/actuation 1 inh INHALATION QID PRN #6.7 g 11/23/21 aerosol inhaler ferrous sulfate 325 mg (65 mg 325 mg PO BID #180 cap 12/12/21 iron) tablet lorazepam 1 mg tablet 1 mg PO TID PRN #30 tab 01/06/22 thiamine HCl (vitamin B1) 100 mg 100 mg PO DAILY #30 tab 01/17/22 tablet sulfamethoxazole 800 1 tab PO Q12H 10 Days #20 tab 01/20/22 mg-trimethoprim 160 mg tablet (Bactrim DS) Allergies Allergy/AdvReac Type Severity Reaction Status Date / Time latex Allergy Unknown rash Verified 11/14/21 00:57 metoclopramide [From REGLAN] AdvReac Unknown INTERACTS Verified 11/14/21 00:57 W/ SEROQUEL Review of Systems Review of Systems: Constitutional: No Weight loss, positive Fever, positive Chills, No Night Sweats, positive Fatigue, positive Malaise ENT/Mouth: No Hearing loss, No Ear Pain, No Nasal Congestion, No Sinus Pain, No Hoarseness, No sore throat, No Rhinorrhea, No Swallowing Difficulty Eyes: No Eye Pain, No Swelling, No Redness, No Foreign Body, No Discharge, No Vision Changes Cardiovascular: No Chest Pain, No SOB, No Dyspnea on Exertion, No Orthopnea, No Edema, No Palpitations Respiratory: No Cough, No Sputum, No Wheezing, No Smoke Exposure, No Dyspnea Gastrointestinal: Positive Nausea, no Vomiting, no Diarrhea, positive abdominal Pain, No Hematochezia, No Melena Genitourinary: no irregular bleeding, positive Dysuria, No Urinary Frequency, No Hematuria, No Urinary Incontinence, No Urgency, No Flank Pain, No Urinary Flow Changes, No Hesitancy Musculoskeletal: No joint pain, No Myalgias, No Joint Swelling Skin: No Skin Lesions, No rash Neuro: No Weakness, No Numbness, No Paresthesias, No Loss of Consciousness, No Dizziness, No Headache Psych: No Anxiety/Panic, No Depression, No SI/HI/AH/VH, No Social Issues Heme/Lymph: No Bruising, No Bleeding,No Lymphadenopathy Endocrine: No Polyuria, No Polydipsia, No Temperature Intolerance Yes all other systems are reviewed and are negative PMFSH Past Medical History Attestation statement: The following information was validated with the patient. Source: old records reviewed Medical History Acquired hypothyroidism ARDS (adult respiratory distress syndrome) Bipolar disorder Diabetes mellitus with hyperglycemia DM2 (diabetes mellitus, type 2) Esophagitis with gastritis Essential hypertension Gastric paresis Hyperlipidemia Hypogammaglobulinemia Muscle weakness Obesity due to excess calories Obesity, morbid, BMI 40.0-49.9 Peripheral neuropathy Pneumonia due to 2019 novel coronavirus Tremor of unknown origin Vitamin D deficiency Yeast infection involving the vagina and surrounding area Surgical History Hx of section Hx of tooth extraction Family History Family History Other Adopted Social History Social History Household Members: Adopted Family Housing: Unknown / Unable to assess Alcohol intake: never Patient Tobacco Use Status: Former Tobacco user Second Hand Smoke Exposure: No Use of substances other than those prescribed or required for medical reasons: No Advance Directives: No Advance Directives Information Provided: No service: No Current occupational status: disabled Gender identity: Female Physical Exam ED Vital Signs: Vital Signs - 24 hr 01/22/22 17:44 01/22/22 18:44 Temperature 100.0 F Pulse Rate 136 H 129 H Respiratory Rate 20 20 Blood Pressure 123/63 120/94 H Pulse Oximetry 98 95 BMI result Body Mass Index 46.4 Appearance: Alert. Oriented X3. Moderate distress. Eyes: Pupils equal, round and reactive to light. Sclera nonicteric. ENT: Pharynx normal. Dry mucous membranes. Neck: Normal inspection. Neck supple. CVS: Tachycardic heart rate and rhythm. Apical pulse is equal to pulses to extremities Respiratory: No respiratory distress. Breath sounds normal. Abdomen: Soft and obese, diffusely tender. Bilateral CVA tenderness. Skin: Skin warm and dry. Normal skin color. Normal skin turgor. Extremities: No lower extremity edema. Moves extremities against resistance. Wheelchair-bound with bilateral lower lower extremity orthotics Neuro: No motor deficit. No sensory deficit. Cranial nerves 2-12 intact. Course Course Course Narrative: 32 yo female 31 yo female with hx of HTN, HLD, UTI ESBL +? E. Coli, autoimmune polyneuropathy receives Q4week IVIG presents with weakness, fevers chills, inability to void, and back pain for approximately 4 days. 17:55 heart rate 136, temp 100.0 degrees oral, plan is to resuscitate fluid for ideal body weight, height is 4 ft 11 in, ideal body weight is 100 lb - 45.35 kg. Will resuscitate with 1500 mL of fluid. Order for ceftriaxone at this time. 18:46 UTI positive for nitrates leukocyte esterase. 19:19 patient unable to sit still on CT scan table. Order for 0.5 mg Ativan IV push. 19:56 patient has a history of ESBL UTI, will order ertapenem per her Infectious Disease. 20:10 CT scan indicates moderate stool burden. Order soap suds enema at this time. 20:17 discussion with hospitalist regarding plan to admit for UTI, CRISPIN, and sepsis. Consultations Consultation #1: Melissa Time: 19:56 Consultation #2: Jayesh Time: 20:17 Medical Decision Making Differential Diagnosis Differential Diagnosis: UTI, pyelo, hydro, acute abdomen, sepsis Medical Records Medical records reviewed: Yes I reviewed the patient's medical records. Lab Data Lab results reviewed: Yes I reviewed the patient's lab results. Result diagrams: 01/22/22 18:08 01/22/22 18:08 Labs: Lab Results 01/22/22 01/22/22 01/22/22 Range/Units 18:08 18:08 18:08 WBC 5.9 (4.8-10.8) X10*3/uL RBC 4.17 L (4.20-5.50) X10*6/uL Hgb 12.3 (12.0-16.0) g/dl Hct 37.7 (37.0-47.0) % MCV 90.4 (80.0-98.0) fL MCH 29.5 (27.0-33.0) pg MCHC 32.6 (31.0-35.0) g/dl RDW 15.8 (11.0-16.0) % Plt Count 221 D (160-400) X10*3/uL MPV 10.2 (9.4-12.3) fL Immature Gran % (Auto) 0.5 H (0.0-0.4) % Neut % (Auto) 89.2 H (45-73) % Lymph % (Auto) 3.0 L (20-40) % [place] % (Auto) 2.9 (2-11) % Eos % (Auto) 4.4 H (0-4) % Baso % (Auto) 0.0 (0-2) % Lymph # (Auto) 0.2 L (1.2-4.9) X10*3/uL [place] # (Auto) 0.2 (0.1-1.2) X10*3/uL Eos # (Auto) 0.3 (0.0-0.4) X10*3/uL Baso # (Auto) 0.0 (0.0-0.2) X10*3/uL Abs Immat Gran (auto) 0.03 (0.00-0.03) X10*3/uL Absolute Neuts (auto) 5.3 (2.0-8.3) x10*3/uL Absolute Nucleated RBC 0.000 (0.0-0.012) X10*3/uL Nucleated RBC % (auto) 0.0 (0.0-0.2) /100WBC Sodium 134 L (135-145) mmol/L Potassium 3.5 (3.3-5.1) mmol/L Chloride 106 (96-108) mmol/L Carbon Dioxide 16 L (22-29) mmol/L Anion Gap 16 (12-20) BUN 26 H D (9-16) mg/dL Creatinine 1.31 (0.5-1.4) mg/dL Estim Creat Clear Calc 65.2 Estimated GFR 47 Random Glucose 154 H (60-115) mg/dL Lactic Acid 1.9 (0.5-2.0) mmol/L Calcium 8.6 D (8.4-10.2) mg/dL Magnesium 2.3 (1.6-2.6) mg/dL Total Bilirubin 0.4 (0.0-1.0) mg/dL Direct Bilirubin 0.2 (0.0-0.5) mg/dL AST 24 (5-31) U/L ALT 19 (0-31) U/L Alkaline Phosphatase 104 D (39-117) U/L Troponin I High Sens (<3.5-17.0) ng/L Total Protein 6.7 D (6.5-8.0) g/dL Albumin 3.4 L (3.5-5.0) g/dL Lipase 14 (8-78) U/L Urine Color Urine Appearance Urine pH (5.0-8.0) Ur Specific [place] (1.005-1.025) Urine Protein (NEG-TRACE) MG/DL Urine Glucose (UA) (NEG) MG/DL Urine Ketones (NEG) MG/DL Urine Blood (NEG) Urine Nitrite (NEG) Ur Leukocyte Esterase (NEG) Urine RBC (0) /HPF Urine WBC (0-4) /HPF Ur Squamous Epith Cells /LPF Amorphous Sediment /LPF Urine Bacteria /LPF 01/22/22 01/22/22 Range/Units 18:08 18:46 WBC (4.8-10.8) X10*3/uL RBC (4.20-5.50) X10*6/uL Hgb (12.0-16.0) g/dl Hct (37.0-47.0) % MCV (80.0-98.0) fL MCH (27.0-33.0) pg MCHC (31.0-35.0) g/dl RDW (11.0-16.0) % Plt Count (160-400) X10*3/uL MPV (9.4-12.3) fL Immature Gran % (Auto) (0.0-0.4) % Neut % (Auto) (45-73) % Lymph % (Auto) (20-40) % [place] % (Auto) (2-11) % Eos % (Auto) (0-4) % Baso % (Auto) (0-2) % Lymph # (Auto) (1.2-4.9) X10*3/uL [place] # (Auto) (0.1-1.2) X10*3/uL Eos # (Auto) (0.0-0.4) X10*3/uL Baso # (Auto) (0.0-0.2) X10*3/uL Abs Immat Gran (auto) (0.00-0.03) X10*3/uL Absolute Neuts (auto) (2.0-8.3) x10*3/uL Absolute Nucleated RBC (0.0-0.012) X10*3/uL Nucleated RBC % (auto) (0.0-0.2) /100WBC Sodium (135-145) mmol/L Potassium (3.3-5.1) mmol/L Chloride (96-108) mmol/L Carbon Dioxide (22-29) mmol/L Anion Gap (12-20) BUN (9-16) mg/dL Creatinine (0.5-1.4) mg/dL Estim Creat Clear Calc Estimated GFR Random Glucose (60-115) mg/dL Lactic Acid (0.5-2.0) mmol/L Calcium (8.4-10.2) mg/dL Magnesium (1.6-2.6) mg/dL Total Bilirubin (0.0-1.0) mg/dL Direct Bilirubin (0.0-0.5) mg/dL AST (5-31) U/L ALT (0-31) U/L Alkaline Phosphatase (39-117) U/L Troponin I High Sens 10.5 (<3.5-17.0) ng/L Total Protein (6.5-8.0) g/dL Albumin (3.5-5.0) g/dL Lipase (8-78) U/L Urine Color YELLOW Urine Appearance CLOUDY Urine pH 6.0 (5.0-8.0) Ur Specific [place] 1.015 (1.005-1.025) Urine Protein TRACE (NEG-TRACE) MG/DL Urine Glucose (UA) >=1000 H (NEG) MG/DL Urine Ketones NEG (NEG) MG/DL Urine Blood TRACE (NEG) Urine Nitrite POS H (NEG) Ur Leukocyte Esterase 2+ H (NEG) Urine RBC 0-2 (0) /HPF Urine WBC TNTC H (0-4) /HPF Ur Squamous Epith Cells TRACE /LPF Amorphous Sediment TRACE /LPF Urine Bacteria 1+ /LPF Imaging Data CT chest abdomen pelvis: Attestation: I personally reviewed and interpreted this imaging study as follows: Radiologist's impression: EXAMINATION: CT CHEST, ABDOMEN AND PELVIS WITHOUT CONTRAST. CLINICAL INFORMATION: Shortness of breath and abdominal pain. COMPARISON: CT chest dated from 12/13/[address] abdomen/pelvis dated from 12/11/2021. TECHNIQUE: Multidetector volumetric imaging was performed from the thoracic inlet through the pubic symphysis without intravenous contrast. Sagittal and coronal reformatted images were obtained on the technologist's workstation. This CT examination was performed using dose optimization techniques as appropriate, variously including the following: *Automated exposure control *Adjustment of mA and/or kV according to patient size (this includes techniques or standardized protocols for targeted exams where dose is matched to indication/reason for exam; i.e. extremities or head) *Use of iterative reconstruction technique DLP: 451 and 1288 mGy-cm FINDINGS: Examination is significantly degraded due to motion. The lack of intravenous contrast limits evaluation of the solid visceral organs. CHEST: Lung: Markedly limited due to motion. Evaluation of pulmonary nodules is essentially nondiagnostic. However, accounting for these limitations, previously visualized multifocal airspace opacities in the CT from 12/13/2021 are markedly improved with minimal residual haziness. Low lung volumes with bronchovascular crowding and subsegmental atelectasis. Central airways are patent. Mediastinum: Normal heart size. No pericardial effusion. No mediastinal lymphadenopathy by size criteria. Evaluation of hilar structures and lymph nodes is suboptimal in the absence of intravenous contrast. Normal thyroid gland. Pericardium/Pleura: No pleural effusion. No pleural mass or thickening. No pneumothorax. Chest Wall/Axilla: No lymphadenopathy by size criteria. ABDOMEN/PELVIS: Peritoneal Space: No free air or free fluid. Liver, Gallbladder, Biliary Tree: The noncontrast liver is normal in size, shape, and attenuation. No focal hepatic lesion or biliary ductal dilatation is present.? The gallbladder is unremarkable with no evidence of radiopaque gallstones, gallbladder wall thickening, or obvious pericholecystic inflammatory changes. Pancreas: Unremarkable. Spleen: Unremarkable. Adrenal Glands: Unremarkable. Kidneys and Ureters: The kidneys are normal in size, shape, and attenuation. No hydronephrosis, hydroureter, or calculi seen. No perinephric stranding. Bladder: Decompressed with Kern and balloon in place. Air in the lumen probably from instrumentation. Gastrointestinal Tract: Significant motion limiting assessment of details. The stomach and small bowel are nondilated. The appendix is not identified. There is significant gaseous distention of a redundant sigmoid colon and moderate to large volume of stool burden in the ascending and transverse colon. No mesenteric stranding nor swirling of the vasculature to suggest a volvulus No pericolic inflammatory changes. No free fluid. Abdominal Wall: Fat-containing umbilical hernia. Lower abdominal wall injection sites. Lymphovascular Structures: Evaluation is limited due to motion and the absence of intravenous contrast. No bulky lymphadenopathy. No aneurysm of the abdominal aorta. Pelvic Viscera: Trace amount of free fluid is likely physiologic. Osseus Structures: No acute or aggressive osseous findings. CT/CT abdomen pelvis wo con IMPRESSION: Evaluation is significantly limited due to motion, and additionally the lack of intravenous contrast limits assessment of solid organs. ? Multifocal airspace opacities described on 12/13/2021 are markedly improved. No new focal airspace disease. ? Gaseous distention of the sigmoid and moderate to large volume of stool in the ascending and transverse colon. ECG Data Attestation: I personally reviewed and interpreted this ECG as follows: Prior ECG tracings: available for review Interpretation: Vent. rate [address] interval 112 ms QRS duration 74 ms QT/QTc 390/569 ms P-R-T axes * 18 30 Sinus tachycardia Nonspecific T wave abnormality Abnormal ECG When compared with ECG of 24-DEC-2021 09:02, Nonspecific T wave abnormality, worse in Anterior leads 22-JAN-2022 18:49:54 Critical Care Time Critical Care Time Critical Care Time: Yes Total Critical Care Time: 45 Attestation: I have personally provided critical care time exclusive of time spent on separately billable procedures. Time includes review of laboratory data, radiology results, discussion with consultants, and monitoring for potential decompensation. Interventions were performed as documented. Discharge Plan Discharge Clinical Impression: Urinary tract infection, CRISPIN (acute kidney injury), Sepsis secondary to UTI Patient Disposition: Admitted As Inpatient
[2022-01-22 17:44] VITALS: BP 123/63; BP 140/100; PULSE 130; PULSE 136; RESP 20; TEMP 37.8; O2SAT 98; BMI 46.4
--- NOTE | 2022-01-22 18:00 | ECG_ITS ---
Test Reason : tacycardia Blood Pressure : / mmHG Vent. Rate : 128 BPM Atrial Rate : 128 BPM P-R Int : 112 ms QRS Dur : 074 ms QT Int : 390 ms P-R-T Axes : 000 018 030 degrees QTc Int : 569 ms Sinus tachycardia Nonspecific T wave abnormality Abnormal ECG When compared with ECG of 24-DEC-2021 09:02, Nonspecific T wave abnormality, worse in Anterior leads Referred By: Gail Ryan Electronically Signed By:HEMA CERVANTES
[2022-01-22 18:13] LABS: MANUAL DIFF FLAG NO
[2022-01-22] MEDS: LORazepam 2 MG/ML VIAL 1 MG IVPUSH (18:13)
[2022-01-22 18:15] LABS: Eosinophils Absolute Auto 0.3 X10*3/uL (0.0-0.4); Eosinophils Percent Auto 4.4 % (0-4); Hematocrit 37.7 % (37.0-47.0); Hemoglobin 12.3 g/dl (12.0-16.0); Imm Gran Abs Auto 0.03 X10*3/uL (0.00-0.03); Imm Gran Pct Auto 0.5 % (0.0-0.4); Lymphocytes Absolute Auto 0.2 X10*3/uL (1.2-4.9); Mean Corpuscular HGB Conc 32.6 g/dl (31.0-35.0); Mean Corpuscular Hemoglobin 29.5 pg (27.0-33.0); Mean Corpuscular Volume 90.4 fL (80.0-98.0); Mean Platelet Volume 10.2 fL (9.4-12.3); Monocytes Absolute Auto 0.2 X10*3/uL (0.1-1.2); Monocytes Percent Auto 2.9 % (2-11); Neutrophils Absolute Auto 5.3 x10*3/uL (2.0-8.3); Neutrophils Percent Auto 89.2 % (45-73); Platelet Count 221 X10*3/uL (160-400); Red Blood Count 4.17 X10*6/uL (4.20-5.50); Red Cell Distribution Width 15.8 % (11.0-16.0); White Blood Count 5.9 X10*3/uL (4.8-10.8)
[2022-01-22] MEDS: Acetaminophen 325 MG TABLET 975 MG PO (18:27)
[2022-01-22 18:34] LABS: Lactic Acid 1.9 mmol/L (0.5-2.0)
[2022-01-22 18:38] LABS: Alanine Aminotransferase 19 U/L (0-31); Albumin Level 3.4 g/dL (3.5-5.0); Alkaline Phosphatase 104 U/L (39-117); Anion Gap 16 (12-20); Aspartate Amino Transferase 24 U/L (5-31); Bilirubin Direct 0.2 mg/dL (0.0-0.5); Bilirubin Total 0.4 mg/dL (0.0-1.0); Blood Urea Nitrogen 26 mg/dL (9-16); Calcium 8.6 mg/dL (8.4-10.2); Carbon Dioxide 16 mmol/L (22-29); Chloride 106 mmol/L (96-108); Creatinine Clr Calc Pharmacy 65.2; Estimated Glomerular Filt Rate 47; Glucose Random 154 mg/dL (60-115); Lipase 14 U/L (8-78); Magnesium 2.3 mg/dL (1.6-2.6); Potassium 3.5 mmol/L (3.3-5.1); Sodium 134 mmol/L (135-145); Total Protein 6.7 g/dL (6.5-8.0)
[2022-01-22] MEDS: 0.9 % Sodium Chloride 1,000 ML 999 ML IVCONT (18:42)
[2022-01-22 18:44] VITALS: BP 120/94; PULSE 129; RESP 20; O2SAT 95
[2022-01-22 18:44] LABS: Troponin-I High Sensitivity 10.5 ng/L (<3.5-17.0)
[2022-01-22] MEDS: cefTRIAXone sodium 1 GM in 0.9 % Sodium Chloride 50 ML IV (18:49)
[2022-01-22 18:52] LABS: Appearance Urine CLOUDY; Color Urine YELLOW; Glucose Urine UA >=1000 MG/DL (NEG); Leukocyte Esterase Urine 2+ (NEG); Nitrite Urine POS (NEG); Specific Gravity - Urine 1.015 (1.005-1.025); UACC Culture Trigger YES; Urine Blood TRACE (NEG); Urine Ketones NEG (NEG); Urine Protein TRACE MG/DL (NEG-TRACE)
[2022-01-22 19:00] LABS: Amorphous Sediment Urine TRACE /LPF; Bacteria Urine 1+ /LPF; RBC Urine 0-2 /HPF (0); Squamous Epithelial Cell Urine TRACE /LPF; WBC Urine TNTC /HPF (0-4)
--- NOTE | 2022-01-22 19:34 | PHA.MEDREC ---
Pharmacy Consult ? Medication Reconciliation Pharmacy has completed the medication reconciliation. Spoke to mother and father and confirmed list of medications
[2022-01-22] MEDS: LORazepam 2 MG/ML VIAL 0.5 MG IVPUSH (20:16)
[2022-01-22 20:53] VITALS: BP 139/76; PULSE 114; RESP 16; TEMP 37.1; O2SAT 98
[2022-01-22 20:55] VITALS: TEMP 37.1
--- NOTE | 2022-01-22 21:36 | PC.NURSE ---
PT received 1200 mL through soap-suds enema. Tolerated procedure well. This RN will monitor PT for BM.
[2022-01-22] MEDS: Chlorhexidine Gluc Oral Rinse 15 ML MOUTHWASH BUCCAL (21:47)
[2022-01-22] MEDS: Melatonin 3 MG TABLET 6 MG PO (21:48)
[2022-01-22] MEDS: 0.9 % Sodium Chloride 500 ML 999 ML IV (21:48)
[2022-01-22] MEDS: QUEtiapine Fumarate 400 MG TABLET PO (21:49)
[2022-01-22] MEDS: Pregabalin 150 MG CAPSULE 300 MG PO (21:49)
[2022-01-22] MEDS: OXcarbazepine 150 MG TABLET PO (21:49)
[2022-01-22] MEDS: traZODone HCL 100 MG TABLET PO (21:49)
[2022-01-22] MEDS: Enoxaparin Sodium 40 MG/0.4 ML SYRINGE SUBCUT (21:49)
[2022-01-22] MEDS: Benztropine Mesylate 1 MG TABLET PO (21:49)
[2022-01-22] MEDS: Pravastatin Sodium 20 MG TABLET PO (21:49)
[2022-01-22 22:37] LABS: Troponin-I High Sensitivity 11.2 ng/L (<3.5-17.0)
[2022-01-22] MEDS: 0.9 % Sodium Chloride 1,000 ML 100 ML IVCONT (23:12)
[2022-01-22 23:52] LABS: COVID-19 Test Negative (Negative)
[2022-01-23] VITALS (9 sets, daily range): BP systolic 82–128; BP diastolic 46–76; PULSE 93–112; RESP 15–20; TEMP 35.9–37.1; O2SAT 96–100
--- NOTE | 2022-01-23 06:51 | PM.IMHP ---
History of Present Illness Date of Service: 01/22/22 Chief Complaint: back pain, inability to void this is a 32-year-old female with past medical history of diabetes, hypertension, hyperlipidemia, hypogammaglobinemia, autoimmune IgA deficiency, peripheral neuropathy, ARDS, recent prolonged hospitalization in December secondary to hypoxic respiratory failure in the setting of COVID-19 infection requiring prolonged ICU admission, ?quadriplegic- wheelchair-bound, acquired hypothyroidism, bipolar disorder, history of esophagitis and history of ESBL UTI who presents to the hospital with difficulty voiding as well as back pain. Patient is a very poor historian, unable to history, she is awake alert but is not answering questions appropriately. She appears very dry clean when I asked about her symptoms she gave me vague answers and does not answer to the question. on arrival to the ED patient found to have a heart rate of 114, otherwise hemodynamically stable Labs are significant for WBC count of 5.9, sodium of 134, BUN of 26 with a creatinine of 1.31 with a baseline of 0.7, UA positive for nitrites, leukocyte Estrace, WBC, Abdominal pelvic CT shows evaluation is significantly limited due to motion has gaseous distension of the sigmoid and moderate to large volume stool of the ascending and transverse colon. Patient was bladder scanned was found to have over 1600 mL of urine in the bladder patient started on antibiotics, placed on Kern catheter and will be admitted for further management Review of Systems Review of Systems: Yes Unobtainable due to mental condition and Unobtainable due to mental status PMFSH Medical History Acquired hypothyroidism ARDS (adult respiratory distress syndrome) Bipolar disorder Diabetes mellitus with hyperglycemia DM2 (diabetes mellitus, type 2) Esophagitis with gastritis Essential hypertension Gastric paresis Hyperlipidemia Hypogammaglobulinemia Muscle weakness Obesity due to excess calories Obesity, morbid, BMI 40.0-49.9 Peripheral neuropathy Pneumonia due to 2019 novel coronavirus Tremor of unknown origin Vitamin D deficiency Yeast infection involving the vagina and surrounding area Family History Other Adopted Surgical History Hx of section Hx of tooth extraction Social History Household Members: Adopted Family Housing: Unknown / Unable to assess Alcohol intake: never Patient Tobacco Use Status: Former Tobacco user Second Hand Smoke Exposure: No Use of substances other than those prescribed or required for medical reasons: No Advance Directives: No Advance Directives Information Provided: No service: No Current occupational status: disabled Gender identity: Female Meds Allergies Allergy/AdvReac Type Severity Reaction Status Date / Time latex Allergy Unknown rash Verified 11/14/21 00:57 metoclopramide [From REGLAN] AdvReac Unknown INTERACTS Verified 11/14/21 00:57 W/ SEROQUEL Active Medications: Current Medications Acetaminophen (Acetaminophen 325 Mg Tablet) 650 mg PO Q6H PRN PRN Reason: Pain, Mild (Pain Scale 1-3) Albuterol Sulfate (Albuterol Sulfate 90 Mcg 8 Gm Inhaler) 1 puff INHALE QID PRN PRN Reason: shortness of breath or wheezing Benztropine Mesylate (Benztropine Mesylate 1 Mg Tablet) 1 mg PO BID [facility] Last Admin: 01/22/22 21:49 Dose: 1 mg Documented by: Chlorhexidine Gluconate (Chlorhexidine Gluc Oral Rinse 15 Ml Mouthwash) 15 ml BUCCAL BID [facility] Last Admin: 01/22/22 21:47 Dose: 15 ml Documented by: Enoxaparin Sodium (Enoxaparin Sodium 40 Mg/0.4 Ml Syringe) 40 mg SUBCUT Q24H [facility] Last Admin: 01/22/22 21:49 Dose: 40 mg Documented by: Ferrous Sulfate (Ferrous Sulfate 324 Mg Tablet.) 324 mg PO BID [facility] Sodium Chloride (Ns) 1,000 mls @ 100 mls/hr IVCONT .Q10H [facility] Last Admin: 01/22/22 23:12 Dose: 100 mls/hr Documented by: Meropenem 1 gm/ Sodium (Chloride) 100 mls @ 200 mls/hr IV Q8H [facility] Last Admin: 01/23/22 05:28 Dose: 200 mls/hr Documented by: Insulin Glargine (Insulin Glargine,Hum.Rec.Anlog 100 Unit/Ml 10 Ml Vial) 14 unit SUBCUT BEDTIME PRN PRN Reason: WHEN SUGARS >150 Levothyroxine Sodium (Levothyroxine Sodium 75 Mcg Tablet) 75 mcg PO DAILY@0600 [facility] Lorazepam (Lorazepam 1 Mg Tablet) 1 mg PO TID PRN PRN Reason: Anxiety/Restlessness Magnesium Oxide (Magnesium Oxide 400 Mg Tablet) 400 mg PO DAILY [facility] Melatonin (Melatonin 3 Mg Tablet) 6 mg PO BEDTIME [facility] Last Admin: 01/22/22 21:48 Dose: 6 mg Documented by: Multivitamins/Vitamin C (Multivitamin Tablet) 1 tab PO DAILY [facility] Non-Formulary Medication (Bupropion Hcl) 100 mg PO QAM [facility] Non-Formulary Medication (Cholecalciferol (Vitamin D3)) 1,250 mcg PO TH [facility] Omeprazole (Omeprazole 20 Mg Capsule.Dr) 20 mg PO DAILY@0630 [facility] Ondansetron HCl (Ondansetron Hcl 4 Mg/2 Ml Vial) 4 mg IVPUSH Q8H PRN PRN Reason: Nausea and Vomiting Oxcarbazepine (Oxcarbazepine 150 Mg Tablet) 150 mg PO BID [facility] Last Admin: 01/22/22 21:49 Dose: 150 mg Documented by: Pravastatin Sodium (Pravastatin Sodium 20 Mg Tablet) 20 mg PO BEDTIME [facility] Last Admin: 01/22/22 21:49 Dose: 20 mg Documented by: Pregabalin (Pregabalin 150 Mg Capsule) 300 mg PO BID [facility] Last Admin: 01/22/22 21:49 Dose: 300 mg Documented by: Quetiapine Fumarate (Quetiapine Fumarate 400 Mg Tablet) 400 mg PO BEDTIME [facility] Last Admin: 01/22/22 21:49 Dose: 400 mg Documented by: Sodium Chloride (0.9 % Sodium Chloride Flush 3 Ml Syringe) 3 ml IVFLUSH QSHIFT [facility] Last Admin: 01/23/22 01:19 Dose: Not Given Documented by: Thiamine HCl (Thiamine Hcl 100 Mg Tablet) 100 mg PO DAILY [facility] Trazodone HCl (Trazodone Hcl 100 Mg Tablet) 100 mg PO BEDTIME [facility] Last Admin: 01/22/22 21:49 Dose: 100 mg Documented by: Home Medications Medication Instructions Recorded Confirmed Last Taken Type bupropion HCl 100 mg tablet,12 hr 100 mg PO QAM 11/30/20 01/22/22 01/22/22 History sustained-release trazodone 100 mg tablet 100 mg PO BEDTIME 11/30/20 01/22/22 01/21/22 History cranberry 400 mg capsule 400 mg PO DAILY cap 03/22/21 01/22/22 01/22/22 History melatonin 3 mg tablet 6 mg PO BEDTIME 03/22/21 01/22/22 01/21/22 History multivitamin 1 tab PO DAILY 03/22/21 01/22/22 01/22/22 History pregabalin 300 mg capsule 300 mg PO BID cap 05/10/21 01/22/22 01/22/22 History rituximab 10 mg/mL 10 mg IV [id number] 08/11/21 01/22/22 Unknown History concentrate,intravenous oxcarbazepine 150 mg tablet 150 mg PO BID tab 08/18/21 01/22/22 01/22/22 History chlorhexidine gluconate 0.12 % 15 ml PO BID 11/29/21 01/22/22 01/22/22 History mouthwash quetiapine 400 mg tablet 1 tab PO BEDTIME 11/29/21 01/22/22 01/21/22 History immun glob G 10 gram/100 450 ml SUBCUT Q4W 12/14/21 01/22/22 10/26/21 History mL(10%)-gly-IgA ov50 mcg/mL subcutaneous soln immun glob G 10 gram/100 500 ml SUBCUT Q4W 12/14/21 01/22/22 10/25/21 History mL(10%)-gly-IgA ov50 mcg/mL subcutaneous soln benztropine 1 mg tablet 1 mg PO BID 01/22/22 01/22/22 01/22/22 History cholecalciferol (vitamin D3) 1,250 1,250 mcg PO TH 01/22/22 01/22/22 01/22/22 History mcg (50,000 unit) capsule insulin degludec 200 unit/mL (3 20 unit SUBCUT BEDTIME PRN 01/22/22 01/22/22 Unknown History mL) subcutaneous pen (Tresiba FlexTouch U-200 insulin) Physical Exam Vital Signs and Narrative: Vital Signs: Last Vital Signs Temp 98.4 F 01/23/22 05:37 Pulse 105 H 01/23/22 05:37 Resp 16 01/23/22 05:37 BP 128/76 01/23/22 05:37 Pulse Ox 98 01/23/22 05:37 BMI result Body Mass Index 46.4 Const: Other: patient appears significantly dehydrated on depleted she is a week, alert to self, but not answering any questions appropriately Eyes: General: appearance normal, both eyes and all related structures Pupils: Equal, round and reactive pupils present Resp: Effort & Inspection: normal respiratory effort Auscultation: clear to auscultation bilaterally Cardio: Rate: regular rate Rhythm: regular rhythm GI: Other: abdomen tender, no rebound or guarding Palpation (GI): Soft to palpation Auscultation: normal bowel sounds : Other: unable to assess for CVA tenderness Skin: General skin exam: no rashes or lesions noted Neuro: Cranial nerves: Yes Equal, round and reactive pupils present Extrem: General: Yes normal to inspection and Yes no pedal edema Results Labs CBC and Chem 7: 01/22/22 18:08 01/22/22 18:08 Labs: Laboratory Results - last 24 hr 01/22/22 01/22/22 01/22/22 18:08 18:08 18:08 MCV 90.4 MCH 29.5 MCHC 32.6 RDW 15.8 Plt Count 221 D MPV 10.2 Immature Gran % (Auto) 0.5 H Neut % (Auto) 89.2 H Lymph % (Auto) 3.0 L [place] % (Auto) 2.9 Eos % (Auto) 4.4 H Baso % (Auto) 0.0 Lymph # (Auto) 0.2 L [place] # (Auto) 0.2 Eos # (Auto) 0.3 Baso # (Auto) 0.0 Abs Immat Gran (auto) 0.03 Absolute Neuts (auto) 5.3 Absolute Nucleated RBC 0.000 Nucleated RBC % (auto) 0.0 Anion Gap 16 Estim Creat Clear Calc 65.2 Estimated GFR 47 Random Glucose 154 H Lactic Acid 1.9 Calcium 8.6 D Magnesium 2.3 Total Bilirubin 0.4 Direct Bilirubin 0.2 AST 24 ALT 19 Alkaline Phosphatase 104 D Total Protein 6.7 D Albumin 3.4 L Lipase 14 Urine Color Urine Appearance Urine pH Ur Specific [place] Urine Protein Urine Glucose (UA) Urine Ketones Urine Blood Urine Nitrite Ur Leukocyte Esterase Urine RBC Urine WBC Ur Squamous Epith Cells Amorphous Sediment Urine Bacteria COVID-19 (NTAASHA) COVID-19 Clin Com 01/22/22 01/22/22 18:46 23:29 MCV MCH MCHC RDW Plt Count MPV Immature Gran % (Auto) Neut % (Auto) Lymph % (Auto) [place] % (Auto) Eos % (Auto) Baso % (Auto) Lymph # (Auto) [place] # (Auto) Eos # (Auto) Baso # (Auto) Abs Immat Gran (auto) Absolute Neuts (auto) Absolute Nucleated RBC Nucleated RBC % (auto) Anion Gap Estim Creat Clear Calc Estimated GFR Random Glucose Lactic Acid Calcium Magnesium Total Bilirubin Direct Bilirubin AST ALT Alkaline Phosphatase Total Protein Albumin Lipase Urine Color YELLOW Urine Appearance CLOUDY Urine pH 6.0 Ur Specific [place] 1.015 Urine Protein TRACE Urine Glucose (UA) >=1000 H Urine Ketones NEG Urine Blood TRACE Urine Nitrite POS H Ur Leukocyte Esterase 2+ H Urine RBC 0-2 Urine WBC TNTC H Ur Squamous Epith Cells TRACE Amorphous Sediment TRACE Urine Bacteria 1+ COVID-19 (NATASHA) Negative COVID-19 Clin Com See Note Imaging Radiologist's Impressions: Impressions Abdomen/Pelvis CT 01/22/22 19:35 IMPRESSION: Evaluation is significantly limited due to motion, and additionally the lack of intravenous contrast limits assessment of solid organs. Multifocal airspace opacities described on 12/13/2021 are markedly improved. No new focal airspace disease. Gaseous distention of the sigmoid and moderate to large volume of stool in the ascending and transverse colon. Chest CT 01/22/22 19:35 IMPRESSION: Evaluation is significantly limited due to motion, and additionally the lack of intravenous contrast limits assessment of solid organs. Multifocal airspace opacities described on 12/13/2021 are markedly improved. No new focal airspace disease. Gaseous distention of the sigmoid and moderate to large volume of stool in the ascending and transverse colon. Assessment and Plan (1) Urinary tract infection: Status: Acute (2) CRISPIN (acute kidney injury): Status: Acute (3) Sepsis secondary to UTI: Status: Acute (4) Constipation: Status: Acute Plan 2 2-year-old with extensive past medical history including bipolar disorder, recent hypoxic respiratory failure requiring prolonged hospitalization, history of ?quadriplegia wheelchair-bound presents with urinary retention found to have UTI # sepsis - secondary to UTI with history of ESBL - febrile with a fever of 100, tachycardic - will treat with IV antibiotics - follow cultures # acute UTI - with complaints of urinary retention, has tachycardia, fever - history of ESBL - will treat with IV antibiotics - id consulted # CRISPIN - likely obstructive - will treat with IV fluids - Kern catheter - follow BMP # Constipation - given enema in ed - Will add oral regimen # diabetes - hold metformin - low-dose sliding scale insulin, diabetic diet patient has an extensive past medical history, continue her home medications except her IVIG as she receives it every 4 weeks Quality Stroke Does the patient have a stroke diagnosis?: No VTE Prior VTE?: No VTE Risk Level:: Medical - moderate - high VTE Device Contraindication: Treatment Not Indicated VTE Drug Contraindication: N/A - Med Ordered
[2022-01-23 07:31] LABS: MANUAL DIFF FLAG NO
[2022-01-23 07:34] LABS: Eosinophils Absolute Auto 0.3 X10*3/uL (0.0-0.4); Hematocrit 31.8 % (37.0-47.0); Imm Gran Abs Auto 0.04 X10*3/uL (0.00-0.03); Imm Gran Pct Auto 1.1 % (0.0-0.4); Lymphocytes Absolute Auto 0.3 X10*3/uL (1.2-4.9); Lymphocytes Percent Auto 8.5 % (20-40); Mean Corpuscular HGB Conc 31.4 g/dl (31.0-35.0); Mean Corpuscular Hemoglobin 28.9 pg (27.0-33.0); Mean Corpuscular Volume 91.9 fL (80.0-98.0); Mean Platelet Volume 9.9 fL (9.4-12.3); Monocytes Absolute Auto 0.1 X10*3/uL (0.1-1.2); Monocytes Percent Auto 3.5 % (2-11); Neutrophils Percent Auto 78.9 % (45-73); Platelet Count 185 X10*3/uL (160-400); Red Blood Count 3.46 X10*6/uL (4.20-5.50); Red Cell Distribution Width 15.8 % (11.0-16.0); White Blood Count 3.8 X10*3/uL (4.8-10.8)
--- NOTE | 2022-01-23 07:52 | P.PNIM_ITS ---
Subjective Subjective Date of Service: 01/23/22 Interval History: sepsis sec uti/crispin Review of Systems Patient denies any chest pain or shortness of breath or abdominal pain or fever chills or cough or phlegm. Physical Exam Vital Signs: Vital Signs: Last Vital Signs Temp 98.4 F 01/23/22 05:37 Pulse 105 H 01/23/22 05:37 Resp 16 01/23/22 05:37 BP 128/76 01/23/22 05:37 Pulse Ox 98 01/23/22 05:37 BMI result Body Mass Index 46.4 Appearance: Aox2 ,still confused Eyes: Pupils equal, round and reactive to light.? Sclera nonicteric.? ENT: Pharynx normal.? Moist mucous membranes. cvs: rrr, [id number] , no murmur res: clear to auscultation ,no rhonchii or wheezing abd: no rebound or guarding ,nt, bs present. ext pulses present , no cyanosis . neuro: axo3 , nonfocal. Objective Data Active Medications Acetaminophen (Acetaminophen 325 Mg Tablet) 650 mg PO Q6H PRN PRN Reason: Pain, Mild (Pain Scale 1-3) Albuterol Sulfate (Albuterol Sulfate 90 Mcg 8 Gm Inhaler) 1 puff INHALE QID PRN PRN Reason: shortness of breath or wheezing Benztropine Mesylate (Benztropine Mesylate 1 Mg Tablet) 1 mg PO BID [facility] Last Admin: 01/22/22 21:49 Dose: 1 mg Documented by: AVINASH Chlorhexidine Gluconate (Chlorhexidine Gluc Oral Rinse 15 Ml Mouthwash) 15 ml BUCCAL BID [facility] Last Admin: 01/22/22 21:47 Dose: 15 ml Documented by: AVINASH Dextrose (Dextrose 50 % 25 Gm/50 Ml Vial) 25 gm IVPUSH Q15M PRN; Protocol PRN Reason: per Hypoglycemia Standing Ord. Enoxaparin Sodium (Enoxaparin Sodium 40 Mg/0.4 Ml Syringe) 40 mg SUBCUT Q24H [facility] Last Admin: 01/22/22 21:49 Dose: 40 mg Documented by: AVINASH Ferrous Sulfate (Ferrous Sulfate 324 Mg Tablet.Dr) 324 mg PO BID [facility] Glucose (Glucose Gel 15 Gm Gel..Gram.) 15 gm PO Q15M PRN; Protocol PRN Reason: per Hypoglycemia Standing Ord. Sodium Chloride (Ns) 1,000 mls @ 100 mls/hr IVCONT .Q10H [facility] Last Admin: 01/22/22 23:12 Dose: 100 mls/hr Documented by: AVINASH Meropenem 1 gm/ Sodium (Chloride) 100 mls @ 200 mls/hr IV Q8H [facility] Last Admin: 01/23/22 05:28 Dose: 200 mls/hr Documented by: LIDYA Insulin Glargine (Insulin Glargine,Hum.Rec.Anlog 100 Unit/Ml 10 Ml Vial) 14 unit SUBCUT BEDTIME PRN PRN Reason: WHEN SUGARS >150 Insulin Human Lispro (Insulin Lispro 100 Unit/Ml 3 Ml Vial) 0 unit SUBCUT QIDACHS [facility]; Protocol Levothyroxine Sodium (Levothyroxine Sodium 75 Mcg Tablet) 75 mcg PO DAILY@0600 [facility] Lorazepam (Lorazepam 1 Mg Tablet) 1 mg PO TID PRN PRN Reason: Anxiety/Restlessness Magnesium Hydroxide (Milk Of Magnesia 30 Ml Oral.Susp) 15 ml PO BID PRN PRN Reason: constipation Magnesium Oxide (Magnesium Oxide 400 Mg Tablet) 400 mg PO DAILY [facility] Melatonin (Melatonin 3 Mg Tablet) 6 mg PO BEDTIME [facility] Last Admin: 01/22/22 21:48 Dose: 6 mg Documented by: AVINASH Multivitamins/Vitamin C (Multivitamin Tablet) 1 tab PO DAILY [facility] Non-Formulary Medication (Bupropion Hcl) 100 mg PO QAM [facility] Non-Formulary Medication (Cholecalciferol (Vitamin D3)) 1,250 mcg PO TH [facility] Omeprazole (Omeprazole 20 Mg Capsule.Dr) 20 mg PO DAILY@0630 [facility] Ondansetron HCl (Ondansetron Hcl 4 Mg/2 Ml Vial) 4 mg IVPUSH Q8H PRN PRN Reason: Nausea and Vomiting Oxcarbazepine (Oxcarbazepine 150 Mg Tablet) 150 mg PO BID [facility] Last Admin: 01/22/22 21:49 Dose: 150 mg Documented by: AVINASH Polyethylene Glycol (Polyethylene Glycol 3350 17 Gm Powd.Pack) 17 gm PO DAILY [facility] Pravastatin Sodium (Pravastatin Sodium 20 Mg Tablet) 20 mg PO BEDTIME [facility] Last Admin: 01/22/22 21:49 Dose: 20 mg Documented by: AVINASH Pregabalin (Pregabalin 150 Mg Capsule) 300 mg PO BID [facility] Last Admin: 01/22/22 21:49 Dose: 300 mg Documented by: AVINASH Quetiapine Fumarate (Quetiapine Fumarate 400 Mg Tablet) 400 mg PO BEDTIME [facility] Last Admin: 01/22/22 21:49 Dose: 400 mg Documented by: AVINASH Sodium Chloride (0.9 % Sodium Chloride Flush 3 Ml Syringe) 3 ml IVFLUSH QSHIFT [facility] Last Admin: 01/23/22 01:19 Dose: Not Given Documented by: AVINASH Non-Admin Reason: IV Running Thiamine HCl (Thiamine Hcl 100 Mg Tablet) 100 mg PO DAILY [facility] Trazodone HCl (Trazodone Hcl 100 Mg Tablet) 100 mg PO BEDTIME [facility] Last Admin: 01/22/22 21:49 Dose: 100 mg Documented by: AVINASH Labs CBC & Chem 7: 01/23/22 07:13 01/23/22 07:13 Labs: Laboratory Results - last 24 hr 01/22/22 01/22/22 01/22/22 18:08 18:08 18:08 MCV 90.4 MCH 29.5 MCHC 32.6 RDW 15.8 Plt Count 221 D MPV 10.2 Immature Gran % (Auto) 0.5 H Neut % (Auto) 89.2 H Lymph % (Auto) 3.0 L [place] % (Auto) 2.9 Eos % (Auto) 4.4 H Baso % (Auto) 0.0 Lymph # (Auto) 0.2 L [place] # (Auto) 0.2 Eos # (Auto) 0.3 Baso # (Auto) 0.0 Abs Immat Gran (auto) 0.03 Absolute Neuts (auto) 5.3 Absolute Nucleated RBC 0.000 Nucleated RBC % (auto) 0.0 Anion Gap 16 Estim Creat Clear Calc 65.2 Estimated GFR 47 Random Glucose 154 H Lactic Acid 1.9 Calcium 8.6 D Magnesium 2.3 Total Bilirubin 0.4 Direct Bilirubin 0.2 AST 24 ALT 19 Alkaline Phosphatase 104 D Total Protein 6.7 D Albumin 3.4 L Lipase 14 Urine Color Urine Appearance Urine pH Ur Specific [place] Urine Protein Urine Glucose (UA) Urine Ketones Urine Blood Urine Nitrite Ur Leukocyte Esterase Urine RBC Urine WBC Ur Squamous Epith Cells Amorphous Sediment Urine Bacteria COVID-19 (NATASHA) COVID-19 Clin [place] [employer] 01/22/22 01/22/22 01/23/22 18:46 23:29 07:13 MCV 91.9 MCH 28.9 MCHC 31.4 RDW 15.8 Plt Count 185 MPV 9.9 Immature Gran % (Auto) 1.1 H Neut % (Auto) 78.9 H Lymph % (Auto) 8.5 L [place] % (Auto) 3.5 Eos % (Auto) 8.0 H Baso % (Auto) 0.0 Lymph # (Auto) 0.3 L [place] # (Auto) 0.1 Eos # (Auto) 0.3 Baso # (Auto) 0.0 Abs Immat Gran (auto) 0.04 H Absolute Neuts (auto) 3.0 Absolute Nucleated RBC 0.000 Nucleated RBC % (auto) 0.0 Anion Gap Estim Creat Clear Calc Estimated GFR Random Glucose Lactic Acid Calcium Magnesium Total Bilirubin Direct Bilirubin AST ALT Alkaline Phosphatase Total Protein Albumin Lipase Urine Color YELLOW Urine Appearance CLOUDY Urine pH 6.0 Ur Specific [place] 1.015 Urine Protein TRACE Urine Glucose (UA) >=1000 H Urine Ketones NEG Urine Blood TRACE Urine Nitrite POS H Ur Leukocyte Esterase 2+ H Urine RBC 0-2 Urine WBC TNTC H Ur Squamous Epith Cells TRACE Amorphous Sediment TRACE Urine Bacteria 1+ COVID-19 (NATASHA) Negative COVID-19 Clin Com See Note Assessment and Plan (1) Constipation: Status: Acute (2) Urinary tract infection: Status: Acute (3) CRISPIN (acute kidney injury): Status: Acute (4) Sepsis secondary to UTI: Status: Acute Plan 22-year-old with extensive past medical history including bipolar disorder, recent hypoxic respiratory failure requiring prolonged hospitalization, history of ?quadriplegia wheelchair-bound presents with urinary retention found to have UTI 1. sepsis-? toxic metabolic encephalopathy secondary to UTI with history of ESBL -? febrile with a fever of 100,? tachycardic blood pressure 82/51 seems error because when checked mannual : it was 90/58 continue with IV antibiotics, urine and blood cultures pending 2.? acute UTI-? with complaints of urinary retention, has tachycardia improving,? afebrile -? history of ESBL continue with IV antibiotics,id consulted 3.? CRISPIN -? likely obstructive -? will treat with IV fluids -? Kern catheter -? follow BMP 4. Constipation: Passing gases, last bowel movement was 3-4 days ago as per family. has mild left quadrent discomfort,no guarding or rebound Will add oral regimen-colace , miralex , added enama Gi eval added 5.? diabetes -? hold metformin -? low-dose sliding scale insulin, diabetic diet Quality Stroke Does the patient have a stroke diagnosis?: No VTE Prior VTE?: No VTE Risk Level:: Medical - moderate - high VTE Device Contraindication: Treatment Not Indicated VTE Drug Contraindication: N/A - Med Ordered
[2022-01-23 07:54] LABS: Anion Gap 13 (12-20); Blood Urea Nitrogen 20 mg/dL (9-16); Carbon Dioxide 16 mmol/L (22-29); Chloride 112 mmol/L (96-108); Creatinine Clr Calc Pharmacy 105.5; Estimated Glomerular Filt Rate > 60; Glucose Random 87 mg/dL (60-115); Potassium 3.4 mmol/L (3.3-5.1); Sodium 138 mmol/L (135-145)
[2022-01-23 08:26] LABS: Glucose, Whole Blood 107 mg/dL (60-115)
--- NOTE | 2022-01-23 08:36 | PC.NURSE ---
Morning BP automated 81/52. Dr Rivas made aware. Manual recheck 90/58. will continue to monitor.
[2022-01-23] MEDS: Omeprazole 20 MG CAPSULE.DR PO (08:50)
[2022-01-23] MEDS: Levothyroxine Sodium 75 MCG TABLET PO (08:51)
[2022-01-23] MEDS: polyethylene glycoL 3350 17 GM POWD.PACK PO ×2 (09:36→17:13)
[2022-01-23] MEDS: Thiamine HCL 100 MG TABLET PO (09:36)
[2022-01-23] MEDS: OXcarbazepine 150 MG TABLET PO ×2 (09:36→21:02)
[2022-01-23] MEDS: Benztropine Mesylate 1 MG TABLET PO ×2 (09:36→21:02)
[2022-01-23] MEDS: Multivitamin TABLET 1 TAB PO (09:36)
[2022-01-23] MEDS: Ferrous Sulfate 324 MG TABLET.DR PO ×2 (09:36→21:03)
[2022-01-23] MEDS: Pregabalin 150 MG CAPSULE 300 MG PO ×2 (09:36→21:03)
[2022-01-23] MEDS: Chlorhexidine Gluc Oral Rinse 15 ML MOUTHWASH BUCCAL ×2 (09:36→21:03)
[2022-01-23] MEDS: Magnesium Oxide 400 MG TABLET PO (09:36)
[2022-01-23 12:00] LABS: Glucose, Whole Blood 77 mg/dL (60-115)
--- NOTE | 2022-01-23 13:55 | MHC.CM.PN ---
PATIENT LIVES WITH HER FAMILY (PARENTS) PARENTS ARE HCP AGENTS AND A COPY IS REQUESTED. SHE IS PRIMARILY WHEEL CHAIR BOUND BUT RECENTLY HAS BEEN WALKING WITH A WHEELED WALKER FATHER JOHANA ([phone]) WOULD LIKE A REFERRAL TO [facility], NOW PLACED. PATIENT IS ALSO ACTIVE ONCE A MONTH WITH [facility]. PATIENT RECEIVES TWO DAYS OF RN SKILLS FOR IV IG EACH MONTH REFERRAL PLACED FOR AGENCY TO FOLLOW. PATIENT'S HOME IS EQUIPPED WITH A HANDICAPPED ACCESSIBLE SHOWER. SHE HAS A [employer] LIFT AND A HOSPITAL BED. CASE MANAGEMENT FOLLOWING IMM 01/23 IN CHART
[2022-01-23] MEDS: Ascorbic Acid 250 MG TABLET PO (14:24)
[2022-01-23] MEDS: 0.9 % Sodium Chloride Flush 3 ML SYRINGE IVFLUSH (14:24)
[2022-01-23] MEDS: 0.9 % Sodium Chloride 1,000 ML 100 ML IVCONT (14:25)
--- NOTE | 2022-01-23 15:07 | PM.GICN ---
History of Present Illness Data of Consult Service Date: 01/23/22 Requesting physician: Eduarda Rivas Primary Care Provider: Lachelle Guerra MD HPI Reason for consult: left sided abd pain, constipation, gaseous distension of the colon on CT 32 YF admitted to [facility] [place] on 01/22/22 with back pain, inability to void. ?this is a 32-year-old female with past medical history of diabetes, hypertension, hyperlipidemia,? hypogammaglobinemia, autoimmune IgA deficiency, peripheral neuropathy, ARDS,? recent prolonged hospitalization in December secondary to hypoxic respiratory failure in the setting of COVID-19 infection requiring prolonged ICU admission,? ?quadriplegic-? wheelchair-bound, acquired hypothyroidism, bipolar disorder, history of? esophagitis? and history of ESBL UTI who presents to the hospital with difficulty voiding as well as back pain.? Patient is a very poor historian, unable to history, she is awake alert but is not answering questions appropriately.? She appears very dry clean when I asked about her symptoms she gave me vague answers and does not answer to the question.? ?on arrival to the ED patient found to have a heart rate of 114, otherwise hemodynamically stable Labs are significant for WBC count of 5.9, sodium of 134, BUN of 26 with a creatinine of 1.31 with a baseline of 0.7, UA positive for nitrites, leukocyte Estrace, WBC, Abdominal pelvic CT shows? evaluation is significantly limited due to motion? has gaseous distension of the sigmoid and moderate to large volume stool of the ascending and transverse colon. Patient was bladder scanned was found to have over 1600 mL of urine in the bladder She was started on IV antibiotics, a Kern's catheter was placed and pt admitted for further management Patient appears somewhat confused and not able to provide a complete history She complains of chronic constipation and abdominal bloating. She reports having a bowel movement every other day while at home. She is passing gases, last bowel movement was 3-4 days ago as per family. She denies recent change in bowel habits, black stools or rectal bleeding. Family history is not known since patient is adopted. IMAGING STUDIES: ABD CT SCAN SHOWED: Gastrointestinal Tract: Significant motion limiting assessment of details. The stomach and small bowel are nondilated. The appendix is not identified. There is significant gaseous distention of a redundant sigmoid colon and moderate to large volume of stool burden in the ascending and transverse colon. No mesenteric stranding nor swirling of the vasculature to suggest a volvulus No pericolic inflammatory changes. No free fluid. PAST EGD/COLONOSCOPY EGD/colonoscopy 03/2019--proctitis, and severe esophagitis Pt started on protonix and rowasa Rowasa not covered by insurance PAST GI HISTORY BY REVIEW OF MEDICAL RECORDS: Pt has been followed by Dr Pitts since 03/2019 for nausea, vomiting and abdominal pain Liver biopsy for elevated LFTs showed steatohepatitis. Elevated IgG4 - 444.9 Review of Systems Review of Systems: Yes Unobtainable due to mental condition and Unobtainable due to mental status Neurologic: Reports confusion Psychiatric: Psychiatric: Reports confusion [facility] Past Medical History Medical History Acquired hypothyroidism ARDS (adult respiratory distress syndrome) Bipolar disorder Diabetes mellitus with hyperglycemia DM2 (diabetes mellitus, type 2) Esophagitis with gastritis Essential hypertension Gastric paresis Hyperlipidemia Hypogammaglobulinemia Muscle weakness Obesity due to excess calories Obesity, morbid, BMI 40.0-49.9 Peripheral neuropathy Pneumonia due to 2019 novel coronavirus Tremor of unknown origin Vitamin D deficiency Yeast infection involving the vagina and surrounding area Family History Family History Other Adopted Surgical History Surgical History Hx of section Hx of tooth extraction Social History Social History Household Members: Family Housing: House Do you presently have visiting nurse or other home services: Yes ([facility] for monthly IVIG) Alcohol intake: never Patient Tobacco Use Status: Former Tobacco user Second Hand Smoke Exposure: No service: No Current occupational status: disabled Gender identity: Female Meds Allergies Allergy/AdvReac Type Severity Reaction Status Date / Time latex Allergy Unknown rash Verified 11/14/21 00:57 metoclopramide [From REGLAN] AdvReac Unknown INTERACTS Verified 11/14/21 00:57 W/ SEROQUEL Active Medications: Current Medications Acetaminophen (Acetaminophen 325 Mg Tablet) 650 mg PO Q6H PRN PRN Reason: Pain, Mild (Pain Scale 1-3) Albuterol Sulfate (Albuterol Sulfate 90 Mcg 8 Gm Inhaler) 1 puff INHALE QID PRN PRN Reason: shortness of breath or wheezing Ascorbic Acid (Ascorbic Acid 250 Mg Tablet) 250 mg PO DAILY [facility] Last Admin: 01/23/22 14:24 Dose: 250 mg Documented by: Benztropine Mesylate (Benztropine Mesylate 1 Mg Tablet) 1 mg PO BID [facility] Last Admin: 01/23/22 09:36 Dose: 1 mg Documented by: Chlorhexidine Gluconate (Chlorhexidine Gluc Oral Rinse 15 Ml Mouthwash) 15 ml BUCCAL BID [facility] Last Admin: 01/23/22 09:36 Dose: 15 ml Documented by: Dextrose (Dextrose 50 % 25 Gm/50 Ml Vial) 25 gm IVPUSH Q15M PRN; Protocol PRN Reason: per Hypoglycemia Standing Ord. Docusate Sodium (Docusate Sodium 100 Mg Capsule) 100 mg PO BEDTIME [facility] Enoxaparin Sodium (Enoxaparin Sodium 40 Mg/0.4 Ml Syringe) 40 mg SUBCUT Q24H [facility] Last Admin: 01/22/22 21:49 Dose: 40 mg Documented by: Ferrous Sulfate (Ferrous Sulfate 324 Mg Tablet.Dr) 324 mg PO BID [facility] Last Admin: 01/23/22 09:36 Dose: 324 mg Documented by: Glucose (Glucose Gel 15 Gm Gel..Gram.) 15 gm PO Q15M PRN; Protocol PRN Reason: per Hypoglycemia Standing Ord. Sodium Chloride (Ns) 1,000 mls @ 100 mls/hr IVCONT .Q10H [facility] Last Admin: 01/23/22 14:25 Dose: 100 mls/hr Documented by: Meropenem 1 gm/ Sodium (Chloride) 100 mls @ 200 mls/hr IV Q8H [facility] Last Infusion: 01/23/22 14:05 Dose: Infused Documented by: Insulin Glargine (Insulin Glargine,Hum.Rec.Anlog 100 Unit/Ml 10 Ml Vial) 14 unit SUBCUT BEDTIME PRN PRN Reason: WHEN SUGARS >150 Insulin Human Lispro (Insulin Lispro 100 Unit/Ml 3 Ml Vial) 0 unit SUBCUT QIDACHS [facility]; Protocol Last Admin: 01/23/22 12:02 Dose: Not Given Documented by: Levothyroxine Sodium (Levothyroxine Sodium 75 Mcg Tablet) 75 mcg PO DAILY@0600 [facility] Last Admin: 01/23/22 08:51 Dose: 75 mcg Documented by: Lorazepam (Lorazepam 1 Mg Tablet) 1 mg PO TID PRN PRN Reason: Anxiety/Restlessness Magnesium Hydroxide (Milk Of Magnesia 30 Ml Oral.Susp) 15 ml PO BID PRN PRN Reason: constipation Magnesium Oxide (Magnesium Oxide 400 Mg Tablet) 400 mg PO DAILY [facility] Last Admin: 01/23/22 09:36 Dose: 400 mg Documented by: Melatonin (Melatonin 3 Mg Tablet) 6 mg PO BEDTIME [facility] Last Admin: 01/22/22 21:48 Dose: 6 mg Documented by: Multivitamins/Vitamin C (Multivitamin Tablet) 1 tab PO BEDTIME [facility] Non-Formulary Medication (Bupropion Hcl) 100 mg PO QAM [facility] Non-Formulary Medication (Cholecalciferol (Vitamin D3)) 1,250 mcg PO TH [facility] Omeprazole (Omeprazole 20 Mg Capsule.Dr) 20 mg PO DAILY@0630 [facility] Last Admin: 01/23/22 08:50 Dose: 20 mg Documented by: Ondansetron HCl (Ondansetron Hcl 4 Mg/2 Ml Vial) 4 mg IVPUSH Q8H PRN PRN Reason: Nausea and Vomiting Oxcarbazepine (Oxcarbazepine 150 Mg Tablet) 150 mg PO BID [facility] Last Admin: 01/23/22 09:36 Dose: 150 mg Documented by: Polyethylene Glycol (Polyethylene Glycol 3350 17 Gm Powd.Pack) 17 gm PO DAILY [facility] Last Admin: 01/23/22 09:36 Dose: 17 gm Documented by: Pravastatin Sodium (Pravastatin Sodium 20 Mg Tablet) 20 mg PO BEDTIME [facility] Last Admin: 01/22/22 21:49 Dose: 20 mg Documented by: Pregabalin (Pregabalin 150 Mg Capsule) 300 mg PO BID [facility] Last Admin: 01/23/22 09:36 Dose: 300 mg Documented by: Quetiapine Fumarate (Quetiapine Fumarate 400 Mg Tablet) 400 mg PO BEDTIME [facility] Last Admin: 01/22/22 21:49 Dose: 400 mg Documented by: Sodium Chloride (0.9 % Sodium Chloride Flush 3 Ml Syringe) 3 ml IVFLUSH QSHIFT [facility] Last Admin: 01/23/22 14:24 Dose: 3 ml Documented by: Thiamine HCl (Thiamine Hcl 100 Mg Tablet) 100 mg PO DAILY [facility] Last Admin: 01/23/22 09:36 Dose: 100 mg Documented by: Trazodone HCl (Trazodone Hcl 100 Mg Tablet) 100 mg PO BEDTIME [facility] Last Admin: 01/22/22 21:49 Dose: 100 mg Documented by: Home Medications Medication Instructions Recorded Confirmed Last Taken Type bupropion HCl 100 mg tablet,12 hr 100 mg PO QAM 11/30/20 01/22/22 01/22/22 History sustained-release trazodone 100 mg tablet 100 mg PO BEDTIME 11/30/20 01/22/22 01/21/22 History cranberry 400 mg capsule 400 mg PO DAILY cap 03/22/21 01/22/22 01/22/22 History melatonin 3 mg tablet 6 mg PO BEDTIME 03/22/21 01/22/22 01/21/22 History multivitamin 1 tab PO DAILY 03/22/21 01/22/22 01/22/22 History pregabalin 300 mg capsule 300 mg PO BID cap 05/10/21 01/22/22 01/22/22 History rituximab 10 mg/mL 10 mg IV [id number] 08/11/21 01/22/22 Unknown History concentrate,intravenous oxcarbazepine 150 mg tablet 150 mg PO BID tab 08/18/21 01/22/22 01/22/22 History chlorhexidine gluconate 0.12 % 15 ml PO BID 11/29/21 01/22/22 01/22/22 History mouthwash quetiapine 400 mg tablet 1 tab PO BEDTIME 11/29/21 01/22/22 01/21/22 History immun glob G 10 gram/100 450 ml SUBCUT Q4W 12/14/21 01/22/22 10/26/21 History mL(10%)-gly-IgA ov50 mcg/mL subcutaneous soln immun glob G 10 gram/100 500 ml SUBCUT Q4W 12/14/21 01/22/22 10/25/21 History mL(10%)-gly-IgA ov50 mcg/mL subcutaneous soln benztropine 1 mg tablet 1 mg PO BID 01/22/22 01/22/22 01/22/22 History cholecalciferol (vitamin D3) 1,250 1,250 mcg PO TH 01/22/22 01/22/22 01/22/22 History mcg (50,000 unit) capsule insulin degludec 200 unit/mL (3 20 unit SUBCUT BEDTIME PRN 01/22/22 01/22/22 Unknown History mL) subcutaneous pen (Tresiba FlexTouch U-200 insulin) Physical Exam Vital Signs: Vital Signs: Last Vital Signs Temp 97.5 F 01/23/22 13:39 Pulse 95 01/23/22 13:39 Resp 20 01/23/22 13:39 BP 99/46 L 01/23/22 13:39 Pulse Ox 97 01/23/22 13:39 BMI result Body Mass Index 46.4 Const: General: no acute distress, confusion and ill appearing Nutritional Appearance: obese Orientation/consciousness: confusion Limitations: no limitations HENMT: Head: Yes normal to inspection Ears: hearing grossly normal bilaterally Mouth: Normal oral and palatal mucosa present Eyes: Sclerae: sclerae normal Pupils: Equal, round and reactive pupils present Neck: Neck: Yes normal visual inspection Chest: Chest palpation & inspection: normal inspection of the chest Resp: Effort & Inspection: normal respiratory effort Auscultation: clear to auscultation bilaterally Cardio: Palpation: normal PMI Rate: regular rate Rhythm: regular rhythm Heart sounds: S1 normal heart sound present, S2 normal heart sound present and no murmurs GI: Palpation (GI): Soft to palpation, Tenderness to palpation present (GI) (Moderate left sided abdominal tenderness) and No hepatosplenomegaly present Auscultation: normal bowel sounds Rectal Exam - Female: deferred Skin: General skin exam: no rashes or lesions noted Neuro: General: gait normal, moves all extremities and confusion Cranial nerves: Yes Equal, round and reactive pupils present Psych: Appearance: grossly normal Mental Status: mental status grossly normal Results Labs CBC & Chem 7: 01/23/22 07:13 01/23/22 07:13 Labs: Short CBC 01/22/22 01/23/22 Range/Units 18:08 07:13 WBC 5.9 3.8 L (4.8-10.8) X10*3/uL Hgb 12.3 10.0 L (12.0-16.0) g/dl Hct 37.7 31.8 L (37.0-47.0) % Plt Count 221 D 185 (160-400) X10*3/uL BMP 01/22/22 01/23/22 18:08 07:13 Sodium 134 L 138 Potassium 3.5 3.4 Chloride 106 112 H Carbon Dioxide 16 L 16 L BUN 26 H D 20 H Creatinine 1.31 0.81 Calcium 8.6 D 8.0 L D Liver Function 01/22/22 Range/Units 18:08 Total Bilirubin 0.4 (0.0-1.0) mg/dL Direct Bilirubin 0.2 (0.0-0.5) mg/dL AST 24 (5-31) U/L ALT 19 (0-31) U/L Alkaline Phosphatase 104 D (39-117) U/L Albumin 3.4 L (3.5-5.0) g/dL Urine 01/22/22 Range/Units 18:46 Urine Color YELLOW Urine Appearance CLOUDY Urine pH 6.0 (5.0-8.0) Ur Specific [place] 1.015 (1.005-1.025) Urine Protein TRACE (NEG-TRACE) MG/DL Urine Glucose (UA) >=1000 H (NEG) MG/DL Microbiology Microbiology Results: Microbiology 01/22/22 18:54 Urine Catheterized - Kern Catheter Urine Culture - Preliminary Culture too young to evaluate. Assessment and Plan (1) Constipation: Status: Acute Plan 32 YF with bipolar disorder, recent hypoxic respiratory failure requiring prolonged hospitalization, history of ?quadriplegia wheelchair-bound admitted with urinary retention and a UTI, sepsis and toxic metabolic encephalopathy secondary to UTI. Abdominal CT scan showed significant gaseous distention of a redundant sigmoid colon and moderate to large volume of stool burden in the ascending and transverse colon. RECOMMENDATIONS: 1. Agree with IV antibiotics. Urine and? blood? cultures are pending 2. Increase Miralax to twice daily - order placed. Repeat KUB in the am for FU on sigmoid colon distension If no change on KUB, she can be placed on a clear liquid diet x 24 hrs and Miralax dose increased to three times daily Dr Pitts to FU tomorrow Procedures Date of Service Date of Service: 01/23/22
[2022-01-23 15:49] LABS: Glucose, Whole Blood 119 mg/dL (60-115)
--- NOTE | 2022-01-23 16:20 | P.CNID_ITS ---
History of Present Illness Data of Consult Service Date: 01/23/22 Requesting physician: Eduarda Rivas Primary Care Provider: Lachelle Guerra MD HPI Reason for consult: flank pain She presents with four days right flank pain and fever. She has had Pseudomonas urine in past. She has had prolonged hospital stay for COVID. Review of Systems Review of Systems: Yes Unobtainable due to mental status PMFSH Past Medical History Medical History Acquired hypothyroidism ARDS (adult respiratory distress syndrome) Bipolar disorder Diabetes mellitus with hyperglycemia DM2 (diabetes mellitus, type 2) Esophagitis with gastritis Essential hypertension Gastric paresis Hyperlipidemia Hypogammaglobulinemia Muscle weakness Obesity due to excess calories Obesity, morbid, BMI 40.0-49.9 Peripheral neuropathy Pneumonia due to 2019 novel coronavirus Tremor of unknown origin Vitamin D deficiency Yeast infection involving the vagina and surrounding area Family History Family History Other Adopted Family history: reviewed and not pertinent Surgical History Surgical History Hx of section Hx of tooth extraction Social History Social History Household Members: Family Housing: House Do you presently have visiting nurse or other home services: Yes ([facility] for monthly IVIG) Alcohol intake: never Patient Tobacco Use Status: Former Tobacco user Second Hand Smoke Exposure: No service: No Current occupational status: disabled Gender identity: Female Meds Allergies Allergy/AdvReac Type Severity Reaction Status Date / Time latex Allergy Unknown rash Verified 11/14/21 00:57 metoclopramide [From REGLAN] AdvReac Unknown INTERACTS Verified 11/14/21 00:57 W/ SEROQUEL Active Medications: Current Medications Acetaminophen (Acetaminophen 325 Mg Tablet) 650 mg PO Q6H PRN PRN Reason: Pain, Mild (Pain Scale 1-3) Albuterol Sulfate (Albuterol Sulfate 90 Mcg 8 Gm Inhaler) 1 puff INHALE QID PRN PRN Reason: shortness of breath or wheezing Ascorbic Acid (Ascorbic Acid 250 Mg Tablet) 250 mg PO DAILY [facility] Last Admin: 01/23/22 14:24 Dose: 250 mg Documented by: Benztropine Mesylate (Benztropine Mesylate 1 Mg Tablet) 1 mg PO BID [facility] Last Admin: 01/23/22 09:36 Dose: 1 mg Documented by: Chlorhexidine Gluconate (Chlorhexidine Gluc Oral Rinse 15 Ml Mouthwash) 15 ml BUCCAL BID [facility] Last Admin: 01/23/22 09:36 Dose: 15 ml Documented by: Dextrose (Dextrose 50 % 25 Gm/50 Ml Vial) 25 gm IVPUSH Q15M PRN; Protocol PRN Reason: per Hypoglycemia Standing Ord. Docusate Sodium (Docusate Sodium 100 Mg Capsule) 100 mg PO BEDTIME [facility] Enoxaparin Sodium (Enoxaparin Sodium 40 Mg/0.4 Ml Syringe) 40 mg SUBCUT Q24H [facility] Last Admin: 01/22/22 21:49 Dose: 40 mg Documented by: Ferrous Sulfate (Ferrous Sulfate 324 Mg Tablet.Dr) 324 mg PO BID [facility] Last Admin: 01/23/22 09:36 Dose: 324 mg Documented by: Glucose (Glucose Gel 15 Gm Gel..Gram.) 15 gm PO Q15M PRN; Protocol PRN Reason: per Hypoglycemia Standing Ord. Sodium Chloride (Ns) 1,000 mls @ 100 mls/hr IVCONT .Q10H [facility] Last Admin: 01/23/22 14:25 Dose: 100 mls/hr Documented by: Meropenem 1 gm/ Sodium (Chloride) 100 mls @ 200 mls/hr IV Q8H [facility] Last Infusion: 01/23/22 14:05 Dose: Infused Documented by: Insulin Glargine (Insulin Glargine,Hum.Rec.Anlog 100 Unit/Ml 10 Ml Vial) 14 unit SUBCUT BEDTIME PRN PRN Reason: WHEN SUGARS >150 Insulin Human Lispro (Insulin Lispro 100 Unit/Ml 3 Ml Vial) 0 unit SUBCUT QIDACHS [facility]; Protocol Last Admin: 01/23/22 12:02 Dose: Not Given Documented by: Levothyroxine Sodium (Levothyroxine Sodium 75 Mcg Tablet) 75 mcg PO DAILY@0600 [facility] Last Admin: 01/23/22 08:51 Dose: 75 mcg Documented by: Lorazepam (Lorazepam 1 Mg Tablet) 1 mg PO TID PRN PRN Reason: Anxiety/Restlessness Magnesium Hydroxide (Milk Of Magnesia 30 Ml Oral.Susp) 15 ml PO BID PRN PRN Reason: constipation Magnesium Oxide (Magnesium Oxide 400 Mg Tablet) 400 mg PO DAILY [facility] Last Admin: 01/23/22 09:36 Dose: 400 mg Documented by: Melatonin (Melatonin 3 Mg Tablet) 6 mg PO BEDTIME [facility] Last Admin: 01/22/22 21:48 Dose: 6 mg Documented by: Multivitamins/Vitamin C (Multivitamin Tablet) 1 tab PO BEDTIME [facility] Non-Formulary Medication (Bupropion Hcl) 100 mg PO QAM [facility] Non-Formulary Medication (Cholecalciferol (Vitamin D3)) 1,250 mcg PO TH [facility] Omeprazole (Omeprazole 20 Mg Capsule.Dr) 20 mg PO DAILY@0630 [facility] Last Admin: 01/23/22 08:50 Dose: 20 mg Documented by: Ondansetron HCl (Ondansetron Hcl 4 Mg/2 Ml Vial) 4 mg IVPUSH Q8H PRN PRN Reason: Nausea and Vomiting Oxcarbazepine (Oxcarbazepine 150 Mg Tablet) 150 mg PO BID [facility] Last Admin: 01/23/22 09:36 Dose: 150 mg Documented by: Polyethylene Glycol (Polyethylene Glycol 3350 17 Gm Powd.Pack) 17 gm PO DAILY [facility] Last Admin: 01/23/22 09:36 Dose: 17 gm Documented by: Pravastatin Sodium (Pravastatin Sodium 20 Mg Tablet) 20 mg PO BEDTIME [facility] Last Admin: 01/22/22 21:49 Dose: 20 mg Documented by: Pregabalin (Pregabalin 150 Mg Capsule) 300 mg PO BID [facility] Last Admin: 01/23/22 09:36 Dose: 300 mg Documented by: Quetiapine Fumarate (Quetiapine Fumarate 400 Mg Tablet) 400 mg PO BEDTIME [facility] Last Admin: 01/22/22 21:49 Dose: 400 mg Documented by: Sodium Chloride (0.9 % Sodium Chloride Flush 3 Ml Syringe) 3 ml IVFLUSH QSHIFT [facility] Last Admin: 01/23/22 14:24 Dose: 3 ml Documented by: Thiamine HCl (Thiamine Hcl 100 Mg Tablet) 100 mg PO DAILY [facility] Last Admin: 01/23/22 09:36 Dose: 100 mg Documented by: Trazodone HCl (Trazodone Hcl 100 Mg Tablet) 100 mg PO BEDTIME [facility] Last Admin: 01/22/22 21:49 Dose: 100 mg Documented by: Home Medications Medication Instructions Recorded Confirmed Last Taken Type bupropion HCl 100 mg tablet,12 hr 100 mg PO QAM 11/30/20 01/22/22 01/22/22 History sustained-release trazodone 100 mg tablet 100 mg PO BEDTIME 11/30/20 01/22/22 01/21/22 History cranberry 400 mg capsule 400 mg PO DAILY cap 03/22/21 01/22/22 01/22/22 History melatonin 3 mg tablet 6 mg PO BEDTIME 03/22/21 01/22/22 01/21/22 History multivitamin 1 tab PO DAILY 03/22/21 01/22/22 01/22/22 History pregabalin 300 mg capsule 300 mg PO BID cap 05/10/21 01/22/22 01/22/22 History rituximab 10 mg/mL 10 mg IV [id number] 08/11/21 01/22/22 Unknown History concentrate,intravenous oxcarbazepine 150 mg tablet 150 mg PO BID tab 08/18/21 01/22/22 01/22/22 History chlorhexidine gluconate 0.12 % 15 ml PO BID 11/29/21 01/22/22 01/22/22 History mouthwash quetiapine 400 mg tablet 1 tab PO BEDTIME 11/29/21 01/22/22 01/21/22 History immun glob G 10 gram/100 450 ml SUBCUT Q4W 12/14/21 01/22/22 10/26/21 History mL(10%)-gly-IgA ov50 mcg/mL subcutaneous soln immun glob G 10 gram/100 500 ml SUBCUT Q4W 12/14/21 01/22/22 10/25/21 History mL(10%)-gly-IgA ov50 mcg/mL subcutaneous soln benztropine 1 mg tablet 1 mg PO BID 01/22/22 01/22/22 01/22/22 History cholecalciferol (vitamin D3) 1,250 1,250 mcg PO TH 01/22/22 01/22/22 01/22/22 History mcg (50,000 unit) capsule insulin degludec 200 unit/mL (3 20 unit SUBCUT BEDTIME PRN 01/22/22 01/22/22 Unknown History mL) subcutaneous pen (Tresiba FlexTouch U-200 insulin) Physical Exam Vital Signs: Vital Signs: Last Vital Signs Temp 98.5 F 01/23/22 16:09 Pulse 95 01/23/22 15:41 Resp 15 01/23/22 15:41 BP 96/55 L 01/23/22 15:41 Pulse Ox 100 01/23/22 15:41 BMI result Body Mass Index 46.4 Const: General: cooperative HENMT: Head: Yes normal to inspection Mouth: Normal oral and palatal mucosa present Resp: Effort & Inspection: normal respiratory effort Cardio: Rate: regular rate Rhythm: regular rhythm GI: Palpation (GI): Soft to palpation and nontender Extrem: General: Yes normal to inspection Results Labs CBC & Chem 7: 01/23/22 07:13 01/23/22 07:13 Labs: Short CBC 01/22/22 01/23/22 Range/Units 18:08 07:13 WBC 5.9 3.8 L (4.8-10.8) X10*3/uL Hgb 12.3 10.0 L (12.0-16.0) g/dl Hct 37.7 31.8 L (37.0-47.0) % Plt Count 221 D 185 (160-400) X10*3/uL BMP 01/22/22 01/23/22 18:08 07:13 Sodium 134 L 138 Potassium 3.5 3.4 Chloride 106 112 H Carbon Dioxide 16 L 16 L BUN 26 H D 20 H Creatinine 1.31 0.81 Calcium 8.6 D 8.0 L D Liver Function 01/22/22 Range/Units 18:08 Total Bilirubin 0.4 (0.0-1.0) mg/dL Direct Bilirubin 0.2 (0.0-0.5) mg/dL AST 24 (5-31) U/L ALT 19 (0-31) U/L Alkaline Phosphatase 104 D (39-117) U/L Albumin 3.4 L (3.5-5.0) g/dL Urine 01/22/22 Range/Units 18:46 Urine Color YELLOW Urine Appearance CLOUDY Urine pH 6.0 (5.0-8.0) Ur Specific [place] 1.015 (1.005-1.025) Urine Protein TRACE (NEG-TRACE) MG/DL Urine Glucose (UA) >=1000 H (NEG) MG/DL Microbiology Microbiology Results: Microbiology 01/22/22 18:54 Urine Catheterized - Kern Catheter Urine Culture - Preliminary Culture too young to evaluate. Assessment and Plan (1) Sepsis secondary to UTI: Status: Acute Probable Pseudomonas and/or enterococcus cause of urinary infection. Immunocompromised state post COVID and gives garbled history (2) Urinary tract infection: Status: Acute (3) CRISPIN (acute kidney injury): Status: Acute Plan Would continue Merem Await urinary cultures. No obstruction seen so no stent or other procedure needed by Urology at this time.
[2022-01-23 20:22] LABS: Glucose, Whole Blood 100 mg/dL (60-115)
[2022-01-23] MEDS: Docusate Sodium 100 MG CAPSULE PO (21:02)
[2022-01-23] MEDS: QUEtiapine Fumarate 400 MG TABLET PO (21:02)
[2022-01-23] MEDS: Pravastatin Sodium 20 MG TABLET PO (21:02)
[2022-01-23] MEDS: traZODone HCL 100 MG TABLET PO (21:02)
[2022-01-23] MEDS: Melatonin 3 MG TABLET 6 MG PO (21:03)
[2022-01-23] MEDS: Enoxaparin Sodium 40 MG/0.4 ML SYRINGE SUBCUT (21:03)
--- NOTE | 2022-01-24 | ECG_ITS ---
Test Reason : qt prolongation Blood Pressure : / mmHG Vent. Rate : 088 BPM Atrial Rate : 088 BPM P-R Int : 176 ms QRS Dur : 080 ms QT Int : 376 ms P-R-T Axes : 007 009 006 degrees QTc Int : 454 ms Artifact in tracing Normal sinus rhythm Not clear if there is any true abnormality in V4-V5 Otherwise normal EKG When compared with ECG of 22-JAN-2022 18:49, No significant changes seen Referred By: Lore Fernandez Electronically Signed By:HEMA CERVANTES
[2022-01-24 03:16] VITALS: BP 98/54; PULSE 85; RESP 18; TEMP 36.3; O2SAT 96
[2022-01-24] MEDS: 0.9 % Sodium Chloride 1,000 ML 100 ML IVCONT (05:02)
[2022-01-24] MEDS: Omeprazole 20 MG CAPSULE.DR PO (05:32)
[2022-01-24] MEDS: Levothyroxine Sodium 75 MCG TABLET PO (05:32)
[2022-01-24 07:24] LABS: Glucose, Whole Blood 81 mg/dL (60-115)
[2022-01-24 07:49] VITALS: BP 111/62; PULSE 85; RESP 17; TEMP 36.4; O2SAT 97
[2022-01-24] MEDS: Magnesium Oxide 400 MG TABLET PO (08:24)
[2022-01-24] MEDS: Chlorhexidine Gluc Oral Rinse 15 ML MOUTHWASH BUCCAL (08:24)
[2022-01-24] MEDS: OXcarbazepine 150 MG TABLET PO (08:24)
[2022-01-24] MEDS: Thiamine HCL 100 MG TABLET PO (08:24)
[2022-01-24] MEDS: Ascorbic Acid 250 MG TABLET PO (08:24)
[2022-01-24] MEDS: polyethylene glycoL 3350 17 GM POWD.PACK PO (08:24)
[2022-01-24] MEDS: Benztropine Mesylate 1 MG TABLET PO (08:24)
[2022-01-24] MEDS: Ferrous Sulfate 324 MG TABLET.DR PO (08:24)
[2022-01-24] MEDS: Pregabalin 150 MG CAPSULE 300 MG PO (08:24)
[2022-01-24] MEDS: 0.9 % Sodium Chloride Flush 3 ML SYRINGE IVFLUSH (08:25)
[2022-01-24 11:25] LABS: Glucose, Whole Blood 107 mg/dL (60-115)
[2022-01-24 11:36] VITALS: BP 118/58; PULSE 82; RESP 18; TEMP 36.4; O2SAT 97
--- NOTE | 2022-01-24 12:27 | P.DS_ITS ---
DS: Providers Provider Date of Service: 01/24/22 Date of admission: 01/22/22 20:34 Primary care physician: Lachelle Guerra MD Consults: 01/22/22 19:57 Consult to Infectious Diseases Routine Consulting Provider: Doreen Torres Reason for consultation: esbl uti hx 01/22/22 20:29 Consult to Infectious Diseases Routine Consulting Provider: Doreen Torres Reason for consultation: ESBL Has provider been notified: Yes 01/22/22 20:49 Consult to Infectious Diseases Routine Consulting Provider: Doreen Torres Reason for consultation: NEW [place] 01/23/22 14:46 Consult to Gastroenterology Routine Consulting Provider: [facility] [place] [facility] Reason for consultation: left sided abd pain /constipation/ct abd ? gasous distension Has provider been notified: No DS: Diagnosis Discharge Diagnosis (1) Constipation: Status: Acute (2) Urinary tract infection: Status: Acute (3) Sepsis secondary to UTI: Status: Acute (4) CRISPIN (acute kidney injury): Status: Acute (5) Acute metabolic encephalopathy: Status: Acute DS: Summary Hospital Course Hospital Course: Admission note HPI ?this is a 32-year-old female with past medical history of diabetes, hypertension, hyperlipidemia,? hypogammaglobinemia, autoimmune IgA deficiency, peripheral neuropathy, ARDS,? recent prolonged hospitalization in December secondary to hypoxic respiratory failure in the setting of COVID-19 infection requiring prolonged ICU admission,? ?quadriplegic-? wheelchair-bound, acquired hypothyroidism, bipolar disorder, history of? esophagitis? and history of ESBL UTI who presents to the hospital with difficulty voiding as well as back pain.? Patient is a very poor historian, unable to history, she is awake alert but is not answering questions appropriately.? She appears very dry clean when I asked about her symptoms she gave me vague answers and does not answer to the question.? ?on arrival to the ED patient found to have a heart rate of 114, otherwise hemodynamically stable Labs are significant for WBC count of 5.9, sodium of 134, BUN of 26 with a creatinine of 1.31 with a baseline of 0.7, UA positive for nitrites, leukocyte Estrace, WBC, Abdominal pelvic CT shows? evaluation is significantly limited due to motion? has gaseous distension of the sigmoid and moderate to large volume stool of the ascending and transverse colon. ? Patient was bladder scanned was found to have over 1600 mL of urine in the bladder ?patient started on antibiotics, placed on Kern catheter and will be admitted for further management Hospital course The patient was admitted for evaluation of metabolic encephalopathy secondary to sepsis from UTI. Noted to have low blood pressure at time of presentation improved with IV fluids. Started on IV antibiotics as urine culture grew pansensitive Pseudomonas aeruginosa with blood cultures remain negative after 24 hours. Discussed with infectious disease specialist who recommended total of 14 days of antibiotics. To be discharged on Levaquin as QTC was checked and around 450. Found to have urine retention at time of presentation. Kern catheter placed in the emergency a. Believed to be secondary to infection and medications. Kern catheter removed and patient was able to pass urine. Her kidney function noted to be elevated with acute kidney injury with creatinine of 1.3 from baseline of 0.7 0.8. Responded well after resolution of the retention and receiving IV fluids. Back to normal baseline. Reported constipation at presentation. Started on bowel regimen with good response as she moved her bowels. Continue Levaquin for 11 more days to finish total of 2 weeks of antibiotics. Use MiraLax daily with goal of bowel movement every 1-2 days Time Spent with Patient Time attestation: Total time spent providing and/or coordinating discharge services: Discharge coordination time: Greater than 30 minutes Quality: Stroke Does the patient have a stroke diagnosis?: No Physical Exam Vital Signs: Vital Signs: Last Vital Signs Temp 97.5 F 01/24/22 11:36 Pulse 82 01/24/22 11:36 Resp 18 01/24/22 11:36 BP 118/58 L 01/24/22 11:36 Pulse Ox 97 01/24/22 11:36 BMI result Body Mass Index 46.4 Const: Other: Constitutional : Alert,? interactiv e, Not in distress Neck : Normal ins pection, Supple Ca rdiovascular : RRR , S1 S2, no lower extremity edema Re spiratory : fair b ilateral air entry ,? no crackles, wh eezes or rhonchi G astrointestinal:? soft, lax, Normal bowel sounds, Non tender Skin : Warm , Dry Neurological : Alert & oriente d? to self and zofia ce,? bilateral low er extremity weakn ess? power +3 DS: Data Data Completed and Pending Completed studies during hospitalization [Text1]: Procedures Drainage of Spinal Canal, Percutaneous Approach, Diagnostic (11/29/21) Extirpation of Matter from Left Main Bronchus, Via Natural or Artificial Opening Endoscopic (11/29/21) Extirpation of Matter from Right Main Bronchus, Via Natural or Artificial Opening Endoscopic (11/29/21) Insertion of Endotracheal Airway into Trachea, Via Natural or Artificial Opening Endoscopic (11/29/21) Insertion of Infusion Device into Superior Vena Cava, Percutaneous Approach (11/29/21) Introduction of Tocilizumab into Peripheral Vein, Percutaneous Approach, [employer] (11/29/21) Introduction of Vasopressor into Peripheral Vein, Percutaneous Approach (11/29/21) Respiratory Ventilation, Greater than 96 Consecutive Hours (11/29/21) Labs on day of discharge: Laboratory Results - last 24 hr 01/23/22 01/23/22 01/24/22 15:44 20:05 07:16 POC Glucose 119 H 100 81 01/24/22 11:17 POC Glucose 107 Preliminary micro results at discharge 01/22/22 18:54 Urine Culture - Preliminary Urine Catheterized - Kern Catheter Culture in progress. 01/22/22 18:21 Blood Culture - Preliminary Blood - Venous No growth after 24 hours. 01/22/22 18:08 Blood Culture - Preliminary Blood - Venous No growth after 24 hours. Discharge Plan Discharge Patient Disposition: Home Health Service Discharge Diagnosis: sepsis secondary to UTI acute kidney injury Referrals: [facility] [Other] - 1 Day (self resumption of tyou igg medciations) Lachelle Guerra MD [Primary Care Provider] - 1 Week Discharge Medications: New polyethylene glycol 3350 17 gram Powder In Packet 17 g PO DAILY Qty: 30 0RF levofloxacin 250 mg Tablet 250 mg PO Q24H 11 Days Qty: 11 0RF Continued (DME) blood-glucose meter [FreeStyle Lite Meter] Kit See Rx Instructions .ROUTE .MEDSUPPLY Qty: 1 0RF Rx Instructions: 3 x/day metformin 500 mg tablet 500 mg PO BID Qty: 60 2RF Rx Instructions: Take with meals pravastatin 20 mg tablet 20 mg PO BEDTIME Qty: 30 5RF levothyroxine [Euthyrox] 75 mcg tablet 75 mcg PO QAM Qty: 30 4RF medroxyprogesterone 150 mg/mL suspension 150 mg IM Q12W Qty: 1 2RF (DME) pen needle, diabetic [BD Wendy 2nd Gen Pen Needle] 32 gauge x 5/32 needle See Rx Instructions .ROUTE .MEDSUPPLY Qty: 50 3RF Rx Instructions: As directed daily pantoprazole 40 mg tablet,delayed release (DR/EC) 40 mg PO DAILY Qty: 30 3RF magnesium oxide 400 mg (241.3 mg magnesium) tablet 400 mg PO DAILY Qty: 30 0RF ferrous sulfate 325 mg (65 mg iron) tablet 325 mg PO BID Qty: 180 3RF thiamine HCl (vitamin B1) 100 mg tablet 100 mg PO DAILY Qty: 30 0RF benztropine 1 mg tablet 1 mg PO BID 0RF cholecalciferol (vitamin D3) 1,250 mcg (50,000 unit) capsule 1,250 mcg PO TH 0RF Tresiba FlexTouch U-200 200 unit/mL (3 mL) insulin pen 20 unit subcut BEDTIME PRN (Reason: WHEN SUGARS >150) 0RF chlorhexidine gluconate 0.12 % mouthwash 15 ml PO BID 0RF quetiapine 400 mg tablet 1 tab PO BEDTIME 0RF Hold Instructions: Pending MD recommendations immun glob G(IgG)-gly-IgA ov50 10 gram/100 mL (10 %) Solution 500 ml SUBCUT Q4W 0RF Rx Instructions: DUE NEXT 01/03 immun glob G(IgG)-gly-IgA ov50 10 gram/100 mL (10 %) Solution 450 ml SUBCUT Q4W 0RF Rx Instructions: DUE NEXT 01/05 lorazepam 1 mg Tablet 1 mg PO TID PRN (Reason: Anxiety/Restlessness) Qty: 30 0RF pregabalin 300 mg capsule 300 mg PO BID 0RF Hold Instructions: Pending MD recommendations rituximab 10 mg/mL concentrate 10 mg IV [id number] 0RF Label Comments: LAST RECIEVED IN THE SPRING Rx Instructions: once every year melatonin 3 mg tablet 6 mg PO BEDTIME 0RF multivitamin Tablet 1 tab PO DAILY 0RF cranberry 400 mg capsule 400 mg PO DAILY 0RF Rx Instructions: administer with a meal albuterol sulfate 90 mcg/actuation HFA aerosol inhaler 1 inh inhalation QID PRN (Reason: shortness of breath or wheezing) Qty: 6.7 1RF bupropion HCl 100 mg tablet sustained-release 12 hr 100 mg PO QAM 0RF Hold Instructions: Pending MD recommendations trazodone 100 mg tablet 100 mg PO BEDTIME 0RF Hold Instructions: Pending MD recommendations oxcarbazepine 150 mg tablet 150 mg PO BID 0RF Hold Instructions: Pending MD recommendations (DME) FreeStyle Lite Strips Strip See Rx Instructions .ROUTE .MEDSUPPLY Qty: 100 11RF Rx Instructions: three times a day (DME) lancets [FreeStyle Lancets] 28 gauge misc See Rx Instructions .ROUTE .MEDSUPPLY Qty: 100 11RF Rx Instructions: As directed three time a day Discontinued sulfamethoxazole-trimethoprim [Bactrim DS] 800-160 mg tablet 1 tab PO Q12H 10 Days Qty: 20 0RF Discharge Orders: Discharge Order (Routine); Ordered 01/24/22 Ordered By: Lore Fernandez Diet: advance to usual diet Activity on Discharge: As tolerated Stand Alone Forms: Patient Portal Discharge page Care Plan Goals: Read below Health Concerns: Read below Plan of Treatment: Read below Assessment: you have presented to the hospital with urine retention as a result of having urine infection associated with altered mental status. Treated with IV antibiotics with fair response as your urine culture grew Pseudomonas aeruginosa bacteria which is sensitive to antibiotics. Noticed to have acute kidney injury likely as a result of retention. Improved back to baseline as Kern catheter was placed at presentation for retention and removed after symptoms improved as your mentation and blood pressure returned back to normal. started on laxatives for constipation. Continue Levaquin for 11 more days to finish total of 2 weeks of antibiotics. Use MiraLax daily with goal of bowel movement every 1-2 days
[2022-01-24] MEDS: levoFLOXacin 250 MG TABLET PO (12:29)
--- NOTE | 2022-01-24 13:33 | P.PNIM_ITS ---
Subjective Subjective Date of Service: 01/24/22 Interval History: the patient was seen and evaluated this morning Laying in bed, feels comfortable Overall significant improvement Urine culture growing Pseudomonas aeruginosa Denies any fever, chills or shortness of breath No reported other overnight events. Systemic review: No fever, chills or weakness No chest pain, palpitation No shortness of breath or coughing No abdominal pain, nausea or vomiting Kern in place No any rash or wounds Physical Exam Vital Signs: Vital Signs: Last Vital Signs Temp 97.5 F 01/24/22 11:36 Pulse 82 01/24/22 11:36 Resp 18 01/24/22 11:36 BP 118/58 L 01/24/22 11:36 Pulse Ox 97 01/24/22 11:36 BMI result Body Mass Index 46.4 Const: Other: Constitutional : Alert,? interactiv e, Not in distress Neck : Normal ins pection, Supple Ca rdiovascular : RRR , S1 S2, no lower extremity edema Re spiratory : fair b ilateral air entry ,? no crackles, wh eezes or rhonchi G astrointestinal:? soft, lax, Normal bowel sounds, Non tender Skin : Warm , Dry Neurological : Alert & oriente d? to self and zofia ce,? bilateral low er extremity weakn ess? power +3 Objective Data Active Medications Acetaminophen (Acetaminophen 325 Mg Tablet) 650 mg PO Q6H PRN PRN Reason: Pain, Mild (Pain Scale 1-3) Albuterol Sulfate (Albuterol Sulfate 90 Mcg 8 Gm Inhaler) 1 puff INHALE QID PRN PRN Reason: shortness of breath or wheezing Ascorbic Acid (Ascorbic Acid 250 Mg Tablet) 250 mg PO DAILY COUNTS INCLUDE 234 BEDS AT THE [facility] Last Admin: 01/24/22 08:24 Dose: 250 mg Documented by: SHINE Benztropine Mesylate (Benztropine Mesylate 1 Mg Tablet) 1 mg PO BID COUNTS INCLUDE 234 BEDS AT THE [facility] Last Admin: 01/24/22 08:24 Dose: 1 mg Documented by: SHINE Chlorhexidine Gluconate (Chlorhexidine Gluc Oral Rinse 15 Ml Mouthwash) 15 ml BUCCAL BID COUNTS INCLUDE 234 BEDS AT THE [facility] Last Admin: 01/24/22 08:24 Dose: 15 ml Documented by: SHINE Dextrose (Dextrose 50 % 25 Gm/50 Ml Vial) 25 gm IVPUSH Q15M PRN; Protocol PRN Reason: per Hypoglycemia Standing Ord. Docusate Sodium (Docusate Sodium 100 Mg Capsule) 100 mg PO BEDTIME COUNTS INCLUDE 234 BEDS AT THE [facility] Last Admin: 01/23/22 21:02 Dose: 100 mg Documented by: AMEENA Enoxaparin Sodium (Enoxaparin Sodium 40 Mg/0.4 Ml Syringe) 40 mg SUBCUT Q24H COUNTS INCLUDE 234 BEDS AT THE [facility] Last Admin: 01/23/22 21:03 Dose: 40 mg Documented by: AMEENA Ferrous Sulfate (Ferrous Sulfate 324 Mg Tablet.) 324 mg PO BID COUNTS INCLUDE 234 BEDS AT THE [facility] Last Admin: 01/24/22 08:24 Dose: 324 mg Documented by: SHINE Glucose (Glucose Gel 15 Gm Gel..Gram.) 15 gm PO Q15M PRN; Protocol PRN Reason: per Hypoglycemia Standing Ord. Insulin Glargine (Insulin Glargine,Hum.Rec.Anlog 100 Unit/Ml 10 Ml Vial) 14 unit SUBCUT BEDTIME PRN PRN Reason: WHEN SUGARS >150 Insulin Human Lispro (Insulin Lispro 100 Unit/Ml 3 Ml Vial) 0 unit SUBCUT QIDACHS COUNTS INCLUDE 234 BEDS AT THE [facility]; Protocol Last Admin: 01/24/22 11:30 Dose: Not Given Documented by: SHINE Non-Admin Reason: No Insulin Coverage Levofloxacin (Levofloxacin 250 Mg Tablet) 250 mg PO Q24H COUNTS INCLUDE 234 BEDS AT THE [facility] Last Admin: 01/24/22 12:29 Dose: 250 mg Documented by: SHINE Levothyroxine Sodium (Levothyroxine Sodium 75 Mcg Tablet) 75 mcg PO DAILY@0600 COUNTS INCLUDE 234 BEDS AT THE [facility] Last Admin: 01/24/22 05:32 Dose: 75 mcg Documented by: AMEENA Lorazepam (Lorazepam 1 Mg Tablet) 1 mg PO TID PRN PRN Reason: Anxiety/Restlessness Magnesium Hydroxide (Milk Of Magnesia 30 Ml Oral.Susp) 15 ml PO BID PRN PRN Reason: constipation Magnesium Oxide (Magnesium Oxide 400 Mg Tablet) 400 mg PO DAILY COUNTS INCLUDE 234 BEDS AT THE [facility] Last Admin: 01/24/22 08:24 Dose: 400 mg Documented by: SHINE Melatonin (Melatonin 3 Mg Tablet) 6 mg PO BEDTIME COUNTS INCLUDE 234 BEDS AT THE [facility] Last Admin: 01/23/22 21:03 Dose: 6 mg Documented by: AMEENA Multivitamins/Vitamin C (Multivitamin Tablet) 1 tab PO BEDTIME COUNTS INCLUDE 234 BEDS AT THE [facility] Non-Formulary Medication (Bupropion Hcl) 100 mg PO QAM COUNTS INCLUDE 234 BEDS AT THE [facility] Omeprazole (Omeprazole 20 Mg Capsule.) 20 mg PO DAILY@0630 COUNTS INCLUDE 234 BEDS AT THE [facility] Last Admin: 01/24/22 05:32 Dose: 20 mg Documented by: AMEENA Ondansetron HCl (Ondansetron Hcl 4 Mg/2 Ml Vial) 4 mg IVPUSH Q8H PRN PRN Reason: Nausea and Vomiting Oxcarbazepine (Oxcarbazepine 150 Mg Tablet) 150 mg PO BID COUNTS INCLUDE 234 BEDS AT THE [facility] Last Admin: 01/24/22 08:24 Dose: 150 mg Documented by: SHINE Polyethylene Glycol (Polyethylene Glycol 3350 17 Gm Powd.Pack) 17 gm PO BID COUNTS INCLUDE 234 BEDS AT THE [facility] Last Admin: 01/24/22 08:24 Dose: 17 gm Documented by: SHINE Pravastatin Sodium (Pravastatin Sodium 20 Mg Tablet) 20 mg PO BEDTIME COUNTS INCLUDE 234 BEDS AT THE [facility] Last Admin: 01/23/22 21:02 Dose: 20 mg Documented by: AMEENA Pregabalin (Pregabalin 150 Mg Capsule) 300 mg PO BID COUNTS INCLUDE 234 BEDS AT THE [facility] Last Admin: 01/24/22 08:24 Dose: 300 mg Documented by: SHINE Quetiapine Fumarate (Quetiapine Fumarate 400 Mg Tablet) 400 mg PO BEDTIME COUNTS INCLUDE 234 BEDS AT THE [facility] Last Admin: 01/23/22 21:02 Dose: 400 mg Documented by: AMEENA Sodium Chloride (0.9 % Sodium Chloride Flush 3 Ml Syringe) 3 ml IVFLUSH QSHIFT COUNTS INCLUDE 234 BEDS AT THE [facility] Last Admin: 01/24/22 08:25 Dose: 3 ml Documented by: SHINE Thiamine HCl (Thiamine Hcl 100 Mg Tablet) 100 mg PO DAILY COUNTS INCLUDE 234 BEDS AT THE [facility] Last Admin: 01/24/22 08:24 Dose: 100 mg Documented by: SHINE Trazodone HCl (Trazodone Hcl 100 Mg Tablet) 100 mg PO BEDTIME COUNTS INCLUDE 234 BEDS AT THE [facility] Last Admin: 01/23/22 21:02 Dose: 100 mg Documented by: AMEENA Labs CBC & Chem 7: 01/23/22 07:13 01/23/22 07:13 Labs: Laboratory Results - last 24 hr 01/23/22 01/23/22 01/24/22 15:44 20:05 07:16 POC Glucose 119 H 100 81 01/24/22 11:17 POC Glucose 107 Microbiology Microbiology Results: Microbiology 01/22/22 18:54 Urine Culture - Preliminary Urine Catheterized - Kern Catheter Culture in progress. 01/22/22 18:21 Blood Culture - Preliminary Blood - Venous No growth after 24 hours. 01/22/22 18:08 Blood Culture - Preliminary Blood - Venous No growth after 24 hours. Assessment and Plan (1) Acute metabolic encephalopathy: Status: Acute (2) Constipation: Status: Acute (3) Urinary tract infection: Status: Acute (4) CRISPIN (acute kidney injury): Status: Acute (5) Sepsis secondary to UTI: Status: Acute (6) Urinary retention: Status: Acute Plan 22-year-old with extensive past medical history including bipolar disorder, recent hypoxic respiratory failure requiring prolonged hospitalization, history of ?quadriplegia wheelchair-bound presents with urinary retention found to have UTI sepsis, resolved toxic metabolic encephalopathy, resolved secondary to UTI Blood cultures negative after 24 hours Urine culture growing Pseudomonas change antibiotic to Levaquin urinary retention, Kern catheter removed Bladder scan, to do straight cath as needed CRISPIN secondary to obstructive uropathy improved back to baseline with usage of Kern catheter Monitor BMP Constipation had bowel movement last night GI input appreciated continue oral regimen-colace , miralex , added enama type 2 diabetes hold metformin low-dose sliding scale insulin, diabetic diet DVT PPX Lovenox The patient will need an overnight stay pending final blood culture sensitivity and for urinary retention monitoring and treatment. Quality Stroke Does the patient have a stroke diagnosis?: No VTE Prior VTE?: No VTE Risk Level:: Medical - moderate - high VTE Device Contraindication: Treatment Not Indicated VTE Drug Contraindication: N/A - Med Ordered
--- NOTE | 2022-01-24 14:23 | MHC.CM.PN ---
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
[2022-01-24 15:50] VITALS: BP 97/52; PULSE 79; RESP 18; TEMP 36.1; O2SAT 98
[2022-01-24 16:07] LABS: Glucose, Whole Blood 93 mg/dL (60-115)
== END 2022-01-24 17:43 | disposition home health service (06) | DRG 871 ==
LOC: HO.ED 20:16 → HO.EDOVER 20:42 → HO.S3 01-23 12:51
PROVIDERS: Internal Medicine; Nurse Practitioner Family; Admitting Provider Internal Medicine; Emergency Provider Emergency Medicine Emergency Medical Services; PCP Internal Medicine; Visit Provider Student in an Organized Health Care Education/Training Program
DX: A41.9 Sepsis, unspecified organism (principal); G92.8 Other toxic encephalopathy; N39.0 Urinary tract infection, site not specified; N17.9 Acute kidney failure, unspecified; E78.5 Hyperlipidemia, unspecified; E11.42 Type 2 diabetes mellitus with diabetic polyneuropathy; R33.9 Retention of urine, unspecified; F31.9 Bipolar disorder, unspecified; K59.00 Constipation, unspecified; B96.5 Pseudomonas (aeruginosa) (mallei) (pseudomallei) as the cause of diseases classified elsewhere; Z20.822 Contact with and (suspected) exposure to COVID-19; Z99.3 Dependence on wheelchair; Z86.16 Personal history of COVID-19; Z91.040 Latex allergy status; Z79.890 Hormone replacement therapy; Z79.899 Other long term (current) drug therapy
CPT/HCPCS: 36415; 71250; 74176; 80048; 80076; 81001; 82947; 83605; 83690; 83735; 84484; 85025; 87040; 87086; 87088; 87186; 87635; 93005; 96361; 96365; 96375; 96376; 99285; 99291; J0696; J1650; J2060; J2185

== ENCOUNTER 2022-02-03 13:41 | Outpatient (REF) | payer MEDICARE, MEDICAID, SELFPAY ==
[2022-02-03 16:30] LABS: Appearance Urine CLEAR; Color Urine YELLOW; Glucose Urine UA NEG (NEG); Leukocyte Esterase Urine 1+ (NEG); Nitrite Urine NEG (NEG); UACC Culture Trigger YES; Urine Blood NEG (NEG); Urine Ketones NEG (NEG); Urine Protein NEG (NEG-TRACE)
[2022-02-03 16:42] LABS: RBC Urine 0 /HPF (0); Squamous Epithelial Cell Urine 2+ /LPF
== END 2022-02-03 13:42 | disposition home or self-care (01) ==
LOC: HO.HMGCLNP 13:41
PROVIDERS: Visit Provider Internal Medicine
DX: R30.0 Dysuria (principal)
CPT/HCPCS: 81001; 87086

== ENCOUNTER → 2022-02-07 13:02 | Outpatient (BNVA) | payer MEDICARE, MEDICAID, SELFPAY | PROVIDERS: PCP Internal Medicine; Visit Provider Advanced Practice Midwife | DX: Z30.42 Encounter for surveillance of injectable contraceptive (principal) | CPT/HCPCS: 96372; 99211 ==

== ENCOUNTER 2022-02-27 17:53 | Outpatient (REF) | payer MEDICARE, MEDICAID, SELFPAY ==
[2022-02-27 18:10] LABS: Appearance Urine HAZY; Color Urine YELLOW; Glucose Urine UA NEG (NEG); Leukocyte Esterase Urine 3+ (NEG); Nitrite Urine NEG (NEG); PH 5.5 (5.0-8.0); UACC Culture Trigger YES; Urine Blood TRACE (NEG); Urine Ketones NEG (NEG); Urine Protein NEG (NEG-TRACE)
[2022-02-27 18:31] LABS: Bacteria Urine 2+ /LPF; RBC Urine 0-2 /HPF (0); Squamous Epithelial Cell Urine 1+ /LPF
== END 2022-02-27 17:54 | disposition home or self-care (01) ==
LOC: HO.LNP 17:53
PROVIDERS: Visit Provider Internal Medicine
DX: Z13.89 Encounter for screening for other disorder (principal)
CPT/HCPCS: 81001; 87086

== ENCOUNTER 2022-03-01 19:03 | Inpatient (IN) | payer MEDICARE, MEDICAID, SELFPAY ==
[2022-03-01] VITALS (11 sets, daily range): BP systolic 85–119; BP diastolic 40–92; PULSE 119–145; RESP 14–26; TEMP 37.3–38.4; O2SAT 96–100; BMI 36.9
--- NOTE | ~2022-03-01 | XR_ITS ---
EXAMINATION: XR CHEST CLINICAL INFORMATION: Change in mental status with question pneumonia COMPARISON: CT chest 01/22/2022, chest radiograph 12/16/2021 TECHNIQUE: Frontal view of the chest was obtained. FINDINGS: The lungs are hypoexpanded. Since the prior study an NG tube and left IJ catheter have been removed. No infiltrates, effusions or lung masses are seen. XR/XR chest 1V IMPRESSION: No acute intrathoracic disease
--- NOTE | 2022-03-01 19:31 | ED.WEAKNESS ---
HPI - Weakness General Chief complaint: Urogenital-Female Stated complaint: UTI Time Seen by Provider: 03/01/22 19:06 Source: family and EMS Mode of arrival: EMS Limitations: language barrier (Patient has difficulty communicating) History of Present Illness HPI Narrative: 32-year-old female who was sent to the emergency department for evaluation of possible urinary tract infection, lethargy, decreased urine output and darker urine. The information came from the geothermal installer and from the patient's father, Josse was here in the emergency department with her. The patient has a history of chronic urinary tract infections. Yesterday the patient started on Bactrim per orally for urinary tract infection. Her father states that since starting the Bactrim the patient has had increased lethargy. She has had decreased urine output in your urine has gotten darker. Paramedics states the patient was warm to the touch but they did not check a temperature. Armature Coil Winder vital signs revealed a blood pressure of 119/92, heart rate of 140, respiratory of 18 O2 saturation 100% on room air, point of care glucose was 141. The patient lives at home with her parents and has home care. 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 She gets IVIG infusions and the father states that her next infusion is due this week. She was also on rituximab but this is been on hold. The father states that the patient had COVID pneumonia in November of 2021 and was hospitalized until mid December of 2021. 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 The patient had a positive urine culture on 01/22/2022 for Pseudomonas aeruginosa which was sensitive to Zosyn. Related Data Home Medications Medication Instructions Recorded Confirmed bupropion HCl 100 mg tablet,12 hr 100 mg PO QAM 11/30/20 03/01/22 sustained-release trazodone 100 mg tablet 100 mg PO BEDTIME 11/30/20 03/01/22 cranberry 400 mg capsule 400 mg PO DAILY cap 03/22/21 03/01/22 melatonin 3 mg tablet 6 mg PO BEDTIME 03/22/21 03/01/22 multivitamin 1 tab PO DAILY 03/22/21 03/01/22 pregabalin 300 mg capsule 300 mg PO BID cap 05/10/21 03/01/22 oxcarbazepine 150 mg tablet 150 mg PO BID tab 08/18/21 03/01/22 immun glob G 10 gram/100 450 ml SUBCUT Q4W 12/14/21 03/01/22 mL(10%)-gly-IgA ov50 mcg/mL subcutaneous soln immun glob G 10 gram/100 500 ml SUBCUT Q4W 12/14/21 03/01/22 mL(10%)-gly-IgA ov50 mcg/mL subcutaneous soln benztropine 1 mg tablet 1 mg PO BID 01/22/22 03/01/22 cholecalciferol (vitamin D3) 1,250 1,250 mcg PO TH 01/22/22 03/01/22 mcg (50,000 unit) capsule insulin degludec 200 unit/mL (3 20 unit SUBCUT BEDTIME PRN 01/22/22 03/01/22 mL) subcutaneous pen (Tresiba FlexTouch U-200 insulin) quetiapine 400 mg tablet 500 mg PO BEDTIME tab 02/14/22 03/01/22 polyethylene glycol 3350 17 gram 17 g PO DAILY PRN 03/01/22 03/01/22 oral powder packet Previous Rx's Medication Instructions Recorded blood sugar diagnostic (FreeStyle #100 ea 05/10/21 Lite Strips) lancets 28 gauge (FreeStyle #100 ea 05/10/21 Lancets) blood-glucose meter (FreeStyle #1 ea 05/31/21 Lite Meter) metformin 500 mg tablet 500 mg PO BID #60 tab 08/08/21 pravastatin 20 mg tablet 20 mg PO BEDTIME #30 tab 09/16/21 levothyroxine 75 mcg tablet 75 mcg PO QAM #30 cap 09/26/21 (Euthyrox) medroxyprogesterone 150 mg/mL 150 mg IM Q12W #1 ml 11/08/21 intramuscular suspension pen needle, diabetic 32 gauge x #50 ea 11/17/21 (BD Wendy 2nd Gen Pen Needle) pantoprazole 40 mg tablet,delayed 40 mg PO DAILY #30 cap 11/22/21 release albuterol sulfate 90 mcg/actuation 1 inh INHALATION QID PRN #6.7 g 11/23/21 aerosol inhaler thiamine HCl (vitamin B1) 100 mg 100 mg PO DAILY #30 tab 01/17/22 tablet ferrous sulfate 325 mg (65 mg 325 mg PO BID #180 cap 02/09/22 iron) tablet magnesium oxide 400 mg (241.3 mg 400 mg PO DAILY #30 tab 02/22/22 magnesium) tablet sulfamethoxazole 800 1 tab PO Q12H 10 Days #20 tab 02/28/22 mg-trimethoprim 160 mg tablet (Bactrim DS) Allergies Allergy/AdvReac Type Severity Reaction Status Date / Time latex Allergy Unknown rash Verified 02/14/22 13:28 metoclopramide [From REGLAN] AdvReac Unknown INTERACTS Verified 02/14/22 13:28 W/ SEROQUEL Review of Systems Review of Systems: Yes Unobtainable due to mental status [facility] Past Medical History [facility] Narrative: Past medical history: Reviewed below, patient also has flaccid quadriplegia of unclear etiology possibly secondary to autoimmune disorder, she also had COVID-19 pneumonia November 2021 complicated by encephalitis. Social history: The patient lives at home with her parents. She does not use tobacco, alcohol or drugs. Medical History Acquired hypothyroidism Anemia ARDS (adult respiratory distress syndrome) Bipolar disorder Depot contraception Diabetes mellitus with hyperglycemia DM2 (diabetes mellitus, type 2) Esophagitis with gastritis Essential hypertension Gastric paresis Hyperlipidemia Hypogammaglobulinemia Muscle weakness Obesity due to excess calories Obesity, morbid, BMI 40.0-49.9 Peripheral neuropathy Pneumonia due to 2019 novel coronavirus Recurrent UTI Tremor of unknown origin Vitamin D deficiency Yeast infection involving the vagina and surrounding area Surgical History Hx of section Hx of tooth extraction Family History Family History Other Adopted Social History Social History Household Members: Family Housing: House Do you presently have visiting nurse or other home services: Yes ([facility] for monthly IVIG) Alcohol intake: never Patient Tobacco Use Status: Former Tobacco user e-Cigarette/Vaping Use: Never Used Second Hand Smoke Exposure: No Advance Directives: No Advance Directives Information Provided: No Patient : No service: No Current occupational status: disabled Gender identity: Female Physical Exam Vital Signs: Vital Signs: Last Vital Signs Temp 100.5 F H 03/01/22 21:13 Pulse 122 H 03/01/22 21:13 Resp 15 03/01/22 21:13 BP 97/50 L 03/01/22 21:13 Pulse Ox 100 03/01/22 21:13 BMI result Body Mass Index 36.9 Const: Other: Patient is somnolent but arousable, she did wake up more when her father came in the room and said hello to him but then fell back asleep. She was able to tell me her name but otherwise does not answer questions, the father states that she does have difficulty communicating since her COVID-19 pneumonia and encephalitis in November of 2021 HEENT: Head: Yes normal to inspection, Yes normocephalic and Yes atraumatic Ears: external ears normal General nose exam: Normal external nose present Face and sinus: Yes normal facial exam Mouth: Normal oral and palatal mucosa present Throat: Yes posterior oropharynx normal Eyes: General: appearance normal, both eyes and all related structures Neck: Neck: Yes normal visual inspection, Yes no lymphadenopathy, Yes trachea midline and Yes supple Chest: Chest palpation & inspection: normal inspection of the chest and normal palpation of entire chest wall Resp: Effort & Inspection: normal respiratory effort Auscultation: clear to auscultation bilaterally Cardio: Rate: tachycardic Rhythm: regular rhythm Heart sounds: S1 normal heart sound present, S2 normal heart sound present and no murmurs GI: Inspection: Yes obesity Palpation (GI): Soft to palpation, nontender and no guarding Auscultation: normal bowel sounds Skin: General skin exam: no rashes or lesions noted Neuro: Other: The patient did recognize her father and did say hello to him, otherwise she has difficulty communicating and there was unable to get her to talk to me. Her cranial nerves appear to be intact. The patient has flaccid quadriplegia with tremors of her extremities. Psych: Other: Somnolent, communicates with her father, has difficulty answering questions. Course Course Course Narrative: 32-year-old female patient with a complex past medical history with polyneuropathy, flaccid quadriplegia, autoimmune disorder requiring IV IgG with recurrent urinary tract infection who was diagnosed with urinary tract infection yesterday and started on Bactrim and now has increased somnolence and weakness. Patient's vital signs revealed a blood pressure of 90/56 and pulse of 145. Her exam was consistent with her flaccid quadriplegia and her encephalitis. I did order laboratory evaluation to include lactic acid and blood cultures. Patient will be given a 30 cc/kilogram normal saline bolus. I suspect that she has a urinary tract infection which is causing her to be altered as well, she grew Pseudomonas sensitive to Zosyn under last urine culture therefore I ordered Zosyn 4.5 g IV. Patient did have a bladder scan and she is retaining urine, there was 860 cc of urine in her bladder therefore she was ordered to get a Kern catheter. 2124: Laboratory evaluation: WBC elevated 17,200. AST and ALT elevated 59 and 38. Alk-phos elevated 159. Glucose elevated 126. Lactate elevated 3.9. COVID-19 negative. Influenza negative. Urinalysis 2+ leukocyte esterase. Microscopic 75-150 WBCs, 1+ squamous epithelial cells, 3+ bacteria. Radiology evaluation: Chest x-ray no significant disease. Patient's laboratory evaluation was concerning for an elevated WBC and elevated lactate of 3.9. Patient was ordered to get normal saline bolus and we will repeat the lactate after completion of the bolus. The patient did receive her IV antibiotics. Patient has had no hypotension with systolic blood pressures remaining above 90. I will discuss admission with the covering hospitalist. 2139: I did discuss the presentation with the covering hospitalist, Dr. Rosa and she will be admitted the patient for further treatment. I also ordered liquid Tylenol 640 mg orally for her fever. MDM - Weakness Lab Data Result diagrams: 03/01/22 20:16 03/01/22 20:16 Labs: Lab Results 03/01/22 03/01/22 03/01/22 Range/Units 20:16 20:16 20:16 WBC 17.2 H (4.8-10.8) X10*3/uL RBC 4.91 D (4.20-5.50) X10*6/uL Hgb 14.2 D (12.0-16.0) g/dl Hct 43.5 D (37.0-47.0) % MCV 88.6 (80.0-98.0) fL MCH 28.9 (27.0-33.0) pg MCHC 32.6 (31.0-35.0) g/dl RDW 14.2 (11.0-16.0) % Plt Count 266 D (160-400) X10*3/uL MPV 10.0 (9.4-12.3) fL Immature Gran % (Auto) 0.5 H (0.0-0.4) % Neut % (Auto) 94.7 H (45-73) % Lymph % (Auto) 0.9 L (20-40) % Bartholomew % (Auto) 2.1 (2-11) % Eos % (Auto) 1.7 (0-4) % Baso % (Auto) 0.1 (0-2) % Lymph # (Auto) 0.2 L (1.2-4.9) X10*3/uL Bartholomew # (Auto) 0.4 (0.1-1.2) X10*3/uL Eos # (Auto) 0.3 (0.0-0.4) X10*3/uL Baso # (Auto) 0.0 (0.0-0.2) X10*3/uL Abs Immat Gran (auto) 0.08 H (0.00-0.03) X10*3/uL Absolute Neuts (auto) 16.3 H (2.0-8.3) x10*3/uL Absolute Nucleated RBC 0.000 (0.0-0.012) X10*3/uL Nucleated RBC % (auto) 0.0 (0.0-0.2) /100WBC Smear Tech's Comments VERIFIED PT 13.1 H (9.9-13.0) SEC INR 1.2 H (0.9-1.1) APTT 39.1 H (24.1-38.0) SEC Sodium 140 (135-145) mmol/L Potassium 4.3 D (3.3-5.1) mmol/L Chloride 107 (96-108) mmol/L Carbon Dioxide 18 L (22-29) mmol/L Anion Gap 19 (12-20) BUN 16 (9-16) mg/dL Creatinine 1.16 (0.5-1.4) mg/dL Estim Creat Clear Calc 72.6 Estimated GFR 54 Random Glucose 126 H (60-115) mg/dL Lactic Acid (0.5-2.0) mmol/L Calcium 9.4 D (8.4-10.2) mg/dL Total Bilirubin 0.6 (0.0-1.0) mg/dL AST 59 H (5-31) U/L ALT 38 H (0-31) U/L Alkaline Phosphatase 154 H D (39-117) U/L Total Protein 7.6 (6.5-8.0) g/dL Albumin 4.0 (3.5-5.0) g/dL Lipase 21 (8-78) U/L TSH 1.66 (0.32-4.0) uIU/mL Urine Color Urine Appearance Urine pH (5.0-8.0) Ur Specific [place] (1.005-1.025) Urine Protein (NEG-TRACE) MG/DL Urine Glucose (UA) (NEG) MG/DL Urine Ketones (NEG) MG/DL Urine Blood (NEG) Urine Nitrite (NEG) Ur Leukocyte Esterase (NEG) Urine RBC (0) /HPF Urine WBC (0-4) /HPF Ur Squamous Epith Cells /LPF Urine Bacteria /LPF COVID-19 (NATASHA) (Negative) COVID-19 Clin Com Influenza Type A (PK) (Negative) Influenza Type B (PK) (Negative) Influenza A & B Note 03/01/22 03/01/22 03/01/22 Range/Units 20:16 20:16 20:16 WBC (4.8-10.8) X10*3/uL RBC (4.20-5.50) X10*6/uL Hgb (12.0-16.0) g/dl Hct (37.0-47.0) % MCV (80.0-98.0) fL MCH (27.0-33.0) pg MCHC (31.0-35.0) g/dl RDW (11.0-16.0) % Plt Count (160-400) X10*3/uL MPV (9.4-12.3) fL Immature Gran % (Auto) (0.0-0.4) % Neut % (Auto) (45-73) % Lymph % (Auto) (20-40) % Bartholomew % (Auto) (2-11) % Eos % (Auto) (0-4) % Baso % (Auto) (0-2) % Lymph # (Auto) (1.2-4.9) X10*3/uL Bartholomew # (Auto) (0.1-1.2) X10*3/uL Eos # (Auto) (0.0-0.4) X10*3/uL Baso # (Auto) (0.0-0.2) X10*3/uL Abs Immat Gran (auto) (0.00-0.03) X10*3/uL Absolute Neuts (auto) (2.0-8.3) x10*3/uL Absolute Nucleated RBC (0.0-0.012) X10*3/uL Nucleated RBC % (auto) (0.0-0.2) /100WBC Smear Tech's Comments PT (9.9-13.0) SEC INR (0.9-1.1) APTT (24.1-38.0) SEC Sodium (135-145) mmol/L Potassium (3.3-5.1) mmol/L Chloride (96-108) mmol/L Carbon Dioxide (22-29) mmol/L Anion Gap (12-20) BUN (9-16) mg/dL Creatinine (0.5-1.4) mg/dL Estim Creat Clear Calc Estimated GFR Random Glucose (60-115) mg/dL Lactic Acid 3.9 H* (0.5-2.0) mmol/L Calcium (8.4-10.2) mg/dL Total Bilirubin (0.0-1.0) mg/dL AST (5-31) U/L ALT (0-31) U/L Alkaline Phosphatase (39-117) U/L Total Protein (6.5-8.0) g/dL Albumin (3.5-5.0) g/dL Lipase (8-78) U/L TSH (0.32-4.0) uIU/mL Urine Color Urine Appearance Urine pH (5.0-8.0) Ur Specific [place] (1.005-1.025) Urine Protein (NEG-TRACE) MG/DL Urine Glucose (UA) (NEG) MG/DL Urine Ketones (NEG) MG/DL Urine Blood (NEG) Urine Nitrite (NEG) Ur Leukocyte Esterase (NEG) Urine RBC (0) /HPF Urine WBC (0-4) /HPF Ur Squamous Epith Cells /LPF Urine Bacteria /LPF COVID-19 (NATASHA) Negative (Negative) COVID-19 Clin Com See Note Influenza Type A (PK) Negative (Negative) Influenza Type B (PK) Negative (Negative) Influenza A & B Note See Note 03/01/22 Range/Units 20:35 WBC (4.8-10.8) X10*3/uL RBC (4.20-5.50) X10*6/uL Hgb (12.0-16.0) g/dl Hct (37.0-47.0) % MCV (80.0-98.0) fL MCH (27.0-33.0) pg MCHC (31.0-35.0) g/dl RDW (11.0-16.0) % Plt Count (160-400) X10*3/uL MPV (9.4-12.3) fL Immature Gran % (Auto) (0.0-0.4) % Neut % (Auto) (45-73) % Lymph % (Auto) (20-40) % Bartholomew % (Auto) (2-11) % Eos % (Auto) (0-4) % Baso % (Auto) (0-2) % Lymph # (Auto) (1.2-4.9) X10*3/uL Bartholomew # (Auto) (0.1-1.2) X10*3/uL Eos # (Auto) (0.0-0.4) X10*3/uL Baso # (Auto) (0.0-0.2) X10*3/uL Abs Immat Gran (auto) (0.00-0.03) X10*3/uL Absolute Neuts (auto) (2.0-8.3) x10*3/uL Absolute Nucleated RBC (0.0-0.012) X10*3/uL Nucleated RBC % (auto) (0.0-0.2) /100WBC Smear Tech's Comments PT (9.9-13.0) SEC INR (0.9-1.1) APTT (24.1-38.0) SEC Sodium (135-145) mmol/L Potassium (3.3-5.1) mmol/L Chloride (96-108) mmol/L Carbon Dioxide (22-29) mmol/L Anion Gap (12-20) BUN (9-16) mg/dL Creatinine (0.5-1.4) mg/dL Estim Creat Clear Calc Estimated GFR Random Glucose (60-115) mg/dL Lactic Acid (0.5-2.0) mmol/L Calcium (8.4-10.2) mg/dL Total Bilirubin (0.0-1.0) mg/dL AST (5-31) U/L ALT (0-31) U/L Alkaline Phosphatase (39-117) U/L Total Protein (6.5-8.0) g/dL Albumin (3.5-5.0) g/dL Lipase (8-78) U/L TSH (0.32-4.0) uIU/mL Urine Color YELLOW Urine Appearance CLEAR Urine pH 6.0 (5.0-8.0) Ur Specific [place] 1.015 (1.005-1.025) Urine Protein NEG (NEG-TRACE) MG/DL Urine Glucose (UA) NEG (NEG) MG/DL Urine Ketones NEG (NEG) MG/DL Urine Blood NEG (NEG) Urine Nitrite NEG (NEG) Ur Leukocyte Esterase 2+ H (NEG) Urine RBC 0 (0) /HPF Urine WBC 76-150 H (0-4) /HPF Ur Squamous Epith Cells 1+ /LPF Urine Bacteria 3+ /LPF COVID-19 (NATASHA) (Negative) COVID-19 Clin Com Influenza Type A (PK) (Negative) Influenza Type B (PK) (Negative) Influenza A & B Note Discharge Plan Discharge Patient Disposition: Admitted As Inpatient Prescriptions: No Action (DME) blood-glucose meter [FreeStyle Lite Meter] Kit See Rx Instructions .ROUTE .MEDSUPPLY Qty: 1 0RF Rx Instructions: 3 x/day metformin 500 mg tablet 500 mg PO BID Qty: 60 2RF Rx Instructions: Take with meals pravastatin 20 mg tablet 20 mg PO BEDTIME Qty: 30 5RF levothyroxine [Euthyrox] 75 mcg tablet 75 mcg PO QAM Qty: 30 4RF medroxyprogesterone 150 mg/mL suspension 150 mg IM Q12W Qty: 1 2RF (DME) pen needle, diabetic [BD Wendy 2nd Gen Pen Needle] 32 gauge x needle See Rx Instructions .ROUTE .MEDSUPPLY Qty: 50 3RF Rx Instructions: As directed daily pantoprazole 40 mg tablet,delayed release (DR/EC) 40 mg PO DAILY Qty: 30 3RF thiamine HCl (vitamin B1) 100 mg tablet 100 mg PO DAILY Qty: 30 0RF ferrous sulfate 325 mg (65 mg iron) tablet 325 mg PO BID Qty: 180 3RF magnesium oxide 400 mg (241.3 mg magnesium) tablet 400 mg PO DAILY Qty: 30 0RF sulfamethoxazole-trimethoprim [Bactrim DS] 800-160 mg tablet 1 tab PO Q12H 10 Days Qty: 20 0RF benztropine 1 mg tablet 1 mg PO BID 0RF cholecalciferol (vitamin D3) 1,250 mcg (50,000 unit) capsule 1,250 mcg PO TH 0RF Tresiba FlexTouch U-200 200 unit/mL (3 mL) insulin pen 20 unit subcut BEDTIME PRN (Reason: WHEN SUGARS >150) 0RF immun glob G(IgG)-gly-IgA ov50 10 gram/100 mL (10 %) Solution 500 ml SUBCUT Q4W 0RF Rx Instructions: DUE THIS WEEK / FOR 500ML AND 4/20 FOR 450ML immun glob G(IgG)-gly-IgA ov50 10 gram/100 mL (10 %) Solution 450 ml SUBCUT Q4W 0RF Rx Instructions: DUE THIS WEEK / FOR 500ML AND 4/20 FOR 450ML quetiapine 400 mg tablet 500 mg PO BEDTIME 0RF Hold Instructions: Pending MD recommendations Rx Instructions: TAKES 1 400MG AND 1/2 OF 200MG TAB = TOTAL OF 500 polyethylene glycol 3350 17 gram powder in packet 17 g PO DAILY PRN (Reason: Constipation) 0RF pregabalin 300 mg capsule 300 mg PO BID 0RF Hold Instructions: Pending MD recommendations melatonin 3 mg tablet 6 mg PO BEDTIME 0RF multivitamin Tablet 1 tab PO DAILY 0RF cranberry 400 mg capsule 400 mg PO DAILY 0RF Rx Instructions: administer with a meal albuterol sulfate 90 mcg/actuation HFA aerosol inhaler 1 inh inhalation QID PRN (Reason: shortness of breath or wheezing) Qty: 6.7 1RF bupropion HCl 100 mg tablet sustained-release 12 hr 100 mg PO QAM 0RF Hold Instructions: Pending MD recommendations trazodone 100 mg tablet 100 mg PO BEDTIME 0RF Hold Instructions: Pending MD recommendations oxcarbazepine 150 mg tablet 150 mg PO BID 0RF Hold Instructions: Pending MD recommendations (DME) FreeStyle Lite Strips Strip See Rx Instructions .ROUTE .MEDSUPPLY Qty: 100 11RF Rx Instructions: three times a day (DME) lancets [FreeStyle Lancets] 28 gauge misc See Rx Instructions .ROUTE .MEDSUPPLY Qty: 100 11RF Rx Instructions: As directed three time a day
[2022-03-01 20:25] LABS: Basophils Percent Auto 0.1 % (0-2); Eosinophils Absolute Auto 0.3 X10*3/uL (0.0-0.4); Eosinophils Percent Auto 1.7 % (0-4); Hematocrit 43.5 % (37.0-47.0); Hemoglobin 14.2 g/dl (12.0-16.0); Imm Gran Abs Auto 0.08 X10*3/uL (0.00-0.03); Imm Gran Pct Auto 0.5 % (0.0-0.4); Lymphocytes Absolute Auto 0.2 X10*3/uL (1.2-4.9); Lymphocytes Percent Auto 0.9 % (20-40); MANUAL DIFF FLAG SCAN; Mean Corpuscular HGB Conc 32.6 g/dl (31.0-35.0); Mean Corpuscular Hemoglobin 28.9 pg (27.0-33.0); Mean Corpuscular Volume 88.6 fL (80.0-98.0); Monocytes Absolute Auto 0.4 X10*3/uL (0.1-1.2); Monocytes Percent Auto 2.1 % (2-11); Neutrophils Absolute Auto 16.3 x10*3/uL (2.0-8.3); Neutrophils Percent Auto 94.7 % (45-73); Platelet Count 266 X10*3/uL (160-400); Red Blood Count 4.91 X10*6/uL (4.20-5.50); Red Cell Distribution Width 14.2 % (11.0-16.0); SCAN SMEAR FLAG 1; White Blood Count 17.2 X10*3/uL (4.8-10.8)
[2022-03-01 20:34] LABS: INTERNATIONAL NORM RATIO 1.2 (0.9-1.1); Prothrombin Time 13.1 SEC (9.9-13.0)
[2022-03-01 20:36] LABS: Partial Thromboplastin Time 39.1 SEC (24.1-38.0)
[2022-03-01 20:40] LABS: COVID-19 Test Negative (Negative); IDNOW Serial# 55D5AD1C; Influenza A Negative (Negative); Influenza B2 Negative (Negative)
[2022-03-01] MEDS: Piperacillin Sodium/Tazobactam 4.5 GM in 0.9 % Sodium Chloride 100 ML IV (20:40)
[2022-03-01 20:45] LABS: SLIDE REVIEW VERIFIED
[2022-03-01 20:46] LABS: Alanine Aminotransferase 38 U/L (0-31); Alkaline Phosphatase 154 U/L (39-117); Anion Gap 19 (12-20); Aspartate Amino Transferase 59 U/L (5-31); Bilirubin Total 0.6 mg/dL (0.0-1.0); Blood Urea Nitrogen 16 mg/dL (9-16); Calcium 9.4 mg/dL (8.4-10.2); Carbon Dioxide 18 mmol/L (22-29); Chloride 107 mmol/L (96-108); Creatinine Clr Calc Pharmacy 72.6; Estimated Glomerular Filt Rate 54; Glucose Random 126 mg/dL (60-115); Lipase 21 U/L (8-78); Potassium 4.3 mmol/L (3.3-5.1); Sodium 140 mmol/L (135-145); Total Protein 7.6 g/dL (6.5-8.0)
[2022-03-01 20:47] LABS: Lactic Acid 3.9 mmol/L (0.5-2.0)
--- NOTE | 2022-03-01 20:50 | PC.NURSE ---
New 20 guage PIV to RT AC placed by this RN Pt tolerated well Pt medicated per MAR Non-latex emmanuel placed with sound effects technician at bedside Pt tolerated well Urine sample collected, labeled, and sent Will continue to monitor
--- NOTE | 2022-03-01 20:57 | PC.NURSE ---
pharmacy called for medication rec per request.
[2022-03-01 20:58] LABS: Appearance Urine CLEAR; Color Urine YELLOW; Glucose Urine UA NEG (NEG); Leukocyte Esterase Urine 2+ (NEG); Nitrite Urine NEG (NEG); Specific Gravity - Urine 1.015 (1.005-1.025); UACC Culture Trigger YES; Urine Blood NEG (NEG); Urine Ketones NEG (NEG); Urine Protein NEG (NEG-TRACE)
[2022-03-01 21:03] LABS: TSH reflex Free T4 1.66 uIU/mL (0.32-4.0)
[2022-03-01 21:09] LABS: Bacteria Urine 3+ /LPF; RBC Urine 0 /HPF (0); Squamous Epithelial Cell Urine 1+ /LPF
--- NOTE | 2022-03-01 21:32 | PHA.MEDREC ---
Pharmacy Consult ? Medication Reconciliation Pharmacy has completed the medication reconciliation. Spoke to mother who confirmed medication list. Patient is due of IVIG this week. Was suppose to get it yesterday and today.
[2022-03-01 22:21] LABS: Reflex Lactate? Lactic Acid Added
--- NOTE | 2022-03-01 22:48 | PM.IMHP ---
History of Present Illness Date of Service: 03/01/22 Chief Complaint: increased ocnfusion, This is a 32 year old unfortunate female with past medical history of diabetes, hypertension, hyperlipidemia, hypogammaglobinemia, autoimmune IgA deficiency, peripheral neuropathy, ARDS secondary to COVID infection, followed by encephalitis secondary to COVID, bed-bound, significant cognitive decline, quadriplegic, bipolar disorder, who presents to the hospital with another UTI. According to the patient and her father at bedside, patient was not feeling well on Sunday, she felt like a urinary tract infection was coming on, due to her neuropathy she does not have significant sensation and does not have burning, or dysuria but just does not feel well. PCP was called on Sunday night, she was prescribed Bactrim, started using the 1st dose on Sunday, but by Sunday morning she had significant decline in cognition, she became more confused, febrile, and generally more L and therefore her father brought her to the hospital. She has had multiple admissions to the hospital for the same reason in the past. Father also reports that patient has significant decrease in urine output. On arrival to the ED patient was found to be retaining urine of 900 in the bladder. Her vitals were found to be significant for fever of 101.2, heart rate of 137, blood pressure of 98/56 Patient received about 4 L of fluid with improvement in her blood pressure, Labs are also found to be significant for WBC count of 17.2, lactic acid of 3.9, UA positive for leukocyte Estrace as well as WBC Chest x-ray negative, COVID and influenza negative Patient started on IV antibiotics based on recent cultures and will be admitted for further management Review of Systems Review of Systems: Yes all other systems are reviewed and are negative [facility] Medical History Acquired hypothyroidism Anemia ARDS (adult respiratory distress syndrome) Bipolar disorder Depot contraception Diabetes mellitus with hyperglycemia DM2 (diabetes mellitus, type 2) Esophagitis with gastritis Essential hypertension Gastric paresis Hyperlipidemia Hypogammaglobulinemia Muscle weakness Obesity due to excess calories Obesity, morbid, BMI 40.0-49.9 Peripheral neuropathy Pneumonia due to 2019 novel coronavirus Recurrent UTI Tremor of unknown origin Vitamin D deficiency Yeast infection involving the vagina and surrounding area Family History Other Adopted Surgical History Hx of section Hx of tooth extraction Social History Household Members: Family Housing: Apartment Do you presently have visiting nurse or other home services: Yes Alcohol intake: never Patient Tobacco Use Status: Former Tobacco user Tobacco use type: Cigarette Smoked in Last 30 Days: No e-Cigarette/Vaping Use: Never Used Patient Interested in Nicotine Replacement: No Patient Given Instructions on How to Stop Smoking: No Second Hand Smoke Exposure: No Use of substances other than those prescribed or required for medical reasons: No Have you been hit, kicked, punched, or otherwise hurt by someone within the past year? If so, by whom?: No Do you feel safe in your current relationship?: No Current Relationship Is there a partner from a previous relationship who is making you feel unsafe now?: No Are you made to feel afraid or neglected: No Advance Directives: No Advance Directives Information Provided: No Do you have thoughts of harming others: None Do you have a plan to hurt others: No Plan Recently lost weight without trying: No Eating poorly because of decreased appetite: No Nutrition Risks: No Nutritional Risk Patient : No : No Poor oral hygiene: No service: No Current occupational status: disabled Gender identity: Female Meds Allergies Allergy/AdvReac Type Severity Reaction Status Date / Time latex Allergy Unknown rash Verified 02/14/22 13:28 metoclopramide [From REGLAN] AdvReac Unknown INTERACTS Verified 02/14/22 13:28 W/ SEROQUEL Active Medications: Current Medications Pharmacy Consult (Consult Rx Perform Med Rec) 1 each MISCELLANE ONCE PRN PRN Reason: Consult order Home Medications Medication Instructions Recorded Confirmed Last Taken Type bupropion HCl 100 mg tablet,12 hr 100 mg PO QAM 11/30/20 03/01/22 03/01/22 History sustained-release trazodone 100 mg tablet 100 mg PO BEDTIME 11/30/20 03/01/22 02/28/22 History cranberry 400 mg capsule 450 mg PO DAILY cap 03/22/21 03/01/22 03/01/22 History melatonin 3 mg tablet 6 mg PO BEDTIME 03/22/21 03/01/22 02/28/22 History multivitamin 1 tab PO DAILY 03/22/21 03/01/22 03/01/22 History pregabalin 300 mg capsule 300 mg PO BID cap 05/10/21 03/01/22 03/01/22 History oxcarbazepine 150 mg tablet 300 mg PO BID tab 08/18/21 03/01/22 03/01/22 History immun glob G 10 gram/100 450 ml SUBCUT Q4W 12/14/21 03/01/22 02/01/22 History mL(10%)-gly-IgA ov50 mcg/mL subcutaneous soln immun glob G 10 gram/100 500 ml SUBCUT Q4W 12/14/21 03/01/22 01/31/22 History mL(10%)-gly-IgA ov50 mcg/mL subcutaneous soln benztropine 1 mg tablet 1 mg PO BID 01/22/22 03/01/22 03/01/22 History cholecalciferol (vitamin D3) 1,250 1,250 mcg PO QWEEK 01/22/22 03/01/22 02/27/22 History mcg (50,000 unit) capsule insulin degludec 200 unit/mL (3 20 unit SUBCUT BEDTIME PRN 01/22/22 03/01/22 Unknown History mL) subcutaneous pen (Tresiba FlexTouch U-200 insulin) quetiapine 400 mg tablet 500 mg PO BEDTIME tab 02/14/22 03/01/22 02/28/22 History chlorhexidine gluconate 03/01/22 Unknown History chlorhexidine gluconate 0.12 % 15 ml BUCCAL BID 03/01/22 03/01/22 Unknown History mouthwash omega-3 fatty acids 2,000 mg PO BID 03/01/22 03/01/22 Unknown History polyethylene glycol 3350 17 gram 17 g PO DAILY PRN 03/01/22 03/01/22 Unknown History oral powder packet sulfamethoxazole 800 1 tab PO BID 03/01/22 03/01/22 03/01/22 10:00 History mg-trimethoprim 160 mg tablet (Bactrim DS) Physical Exam Vital Signs and Narrative: Vital Signs: Last Vital Signs Temp 100.5 F H 03/01/22 21:13 Pulse 122 H 03/01/22 22:23 Resp 26 H 03/01/22 22:23 BP 96/74 03/01/22 22:23 Pulse Ox 100 03/01/22 22:23 BMI result Body Mass Index 36.9 Const: Other: Very ill-appearing General: cooperative and no acute distress Orientation/consciousness: patient oriented x3 Eyes: General: appearance normal, both eyes and all related structures Pupils: Equal, round and reactive pupils present Resp: Effort & Inspection: normal respiratory effort Auscultation: clear to auscultation bilaterally Cardio: Rate: regular rate Rhythm: regular rhythm GI: Palpation (GI): Soft to palpation Auscultation: normal bowel sounds Skin: General skin exam: no rashes or lesions noted Neuro: General: patient oriented x3 Cranial nerves: Yes Equal, round and reactive pupils present Extrem: General: Yes normal to inspection and Yes no pedal edema Results Labs CBC and Chem 7: 03/02/22 05:48 03/02/22 05:48 Labs: Laboratory Results - last 24 hr 03/01/22 03/01/22 03/01/22 20:16 20:16 20:16 MCV 88.6 MCH 28.9 MCHC 32.6 RDW 14.2 Plt Count 266 D MPV 10.0 Immature Gran % (Auto) 0.5 H Neut % (Auto) 94.7 H Lymph % (Auto) 0.9 L [place] % (Auto) 2.1 Eos % (Auto) 1.7 Baso % (Auto) 0.1 Lymph # (Auto) 0.2 L [place] # (Auto) 0.4 Eos # (Auto) 0.3 Baso # (Auto) 0.0 Abs Immat Gran (auto) 0.08 H Absolute Neuts (auto) 16.3 H Absolute Nucleated RBC 0.000 Nucleated RBC % (auto) 0.0 Smear Tech's Comments VERIFIED PT 13.1 H INR 1.2 H APTT 39.1 H Anion Gap 19 Estim Creat Clear Calc 72.6 Estimated GFR 54 Random Glucose 126 H Lactic Acid Calcium 9.4 D Total Bilirubin 0.6 AST 59 H ALT 38 H Alkaline Phosphatase 154 H D Total Protein 7.6 Albumin 4.0 Lipase 21 TSH 1.66 Urine Color Urine Appearance Urine pH Ur Specific [place] Urine Protein Urine Glucose (UA) Urine Ketones Urine Blood Urine Nitrite Ur Leukocyte Esterase Urine RBC Urine WBC Ur Squamous Epith Cells Urine Bacteria COVID-19 (NATASHA) COVID-19 Clin Com Influenza Type A (PK) Influenza Type B (PK) Influenza A & B Note 03/01/22 03/01/22 03/01/22 20:16 20:16 20:16 MCV MCH MCHC RDW Plt Count MPV Immature Gran % (Auto) Neut % (Auto) Lymph % (Auto) [place] % (Auto) Eos % (Auto) Baso % (Auto) Lymph # (Auto) [place] # (Auto) Eos # (Auto) Baso # (Auto) Abs Immat Gran (auto) Absolute Neuts (auto) Absolute Nucleated RBC Nucleated RBC % (auto) Smear Tech's Comments PT INR APTT Anion Gap Estim Creat Clear Calc Estimated GFR Random Glucose Lactic Acid 3.9 H* Calcium Total Bilirubin AST ALT Alkaline Phosphatase Total Protein Albumin Lipase TSH Urine Color Urine Appearance Urine pH Ur Specific [place] Urine Protein Urine Glucose (UA) Urine Ketones Urine Blood Urine Nitrite Ur Leukocyte Esterase Urine RBC Urine WBC Ur Squamous Epith Cells Urine Bacteria COVID-19 (NATASHA) Negative COVID-19 Clin Com See Note Influenza Type A (PK) Negative Influenza Type B (PK) Negative Influenza A & B Note See Note 03/01/22 20:35 MCV MCH MCHC RDW Plt Count MPV Immature Gran % (Auto) Neut % (Auto) Lymph % (Auto) [place] % (Auto) Eos % (Auto) Baso % (Auto) Lymph # (Auto) [place] # (Auto) Eos # (Auto) Baso # (Auto) Abs Immat Gran (auto) Absolute Neuts (auto) Absolute Nucleated RBC Nucleated RBC % (auto) Smear Tech's Comments PT INR APTT Anion Gap Estim Creat Clear Calc Estimated GFR Random Glucose Lactic Acid Calcium Total Bilirubin AST ALT Alkaline Phosphatase Total Protein Albumin Lipase TSH Urine Color YELLOW Urine Appearance CLEAR Urine pH 6.0 Ur Specific [place] 1.015 Urine Protein NEG Urine Glucose (UA) NEG Urine Ketones NEG Urine Blood NEG Urine Nitrite NEG Ur Leukocyte Esterase 2+ H Urine RBC 0 Urine WBC 76-150 H Ur Squamous Epith Cells 1+ Urine Bacteria 3+ COVID-19 (NATASHA) COVID-19 Clin Com Influenza Type A (PK) Influenza Type B (PK) Influenza A & B Note Imaging Radiologist's Impressions: Impressions Chest X-Ray 03/01/22 19:41 IMPRESSION: No acute intrathoracic disease Assessment and Plan (1) Sepsis: Status: Acute (2) Urinary tract infection: Qualifiers: Hematuria presence: without hematuria Urinary tract infection type: site unspecified Qualified Code(s): N39.0 - Urinary tract infection, site not specified Status: Acute (3) Acute urinary retention: Status: Acute (4) Lactic acidosis: Status: Acute Plan 32-year-old female with past medical history as mentioned above presents to the hospital with sepsis secondary to UTI # sepsis - secondary to UTI - UA positive, has leukocytosis, tachycardia, febrile - treated with Zosyn based on recent cultures from January - follow blood cultures - IV fluids # lactic acidosis - secondary to acute infection - started IV fluids - trending down # acute urinary retention - secondary to UTI - Kern catheter in place - IV antibiotics # Hypogammaglobinemia - patient receives IVIG q.4 weeks # diabetes - hold metformin - start low-dose sliding scale insulin - diabetic diet # hypothyroidism - continue levothyroxine DVT prophylaxis: Heparin subQ Given the sepsis patient will require a medically necessary minimum 2 night hospital stay for further management and monitoring Quality Stroke Does the patient have a stroke diagnosis?: No VTE Prior VTE?: No VTE Risk Level:: Medical - moderate - high VTE Device Contraindication: Treatment Not Indicated VTE Drug Contraindication: N/A - Med Ordered
--- NOTE | 2022-03-01 22:57 | PC.NURSE ---
okay to put warm blanket on pt per Dr. Vieira
[2022-03-01 23:05] LABS: ~Lactic Acid-LAB USE ONLY 2.9 mmol/L (0.5-2.0)
[2022-03-01] MEDS: Lactated Ringers 1,000 ML 999 ML IV (23:17)
[2022-03-01] MEDS: Heparin Sodium,Porcine 5,000 UNIT/ML VIAL 5000 UNIT SUBCUT (23:22)
[2022-03-02] VITALS (10 sets, daily range): BP systolic 102–137; BP diastolic 54–86; PULSE 84–121; RESP 14–20; TEMP 36.3–37.8; O2SAT 96–100
[2022-03-02] MEDS: Lactated Ringers 1,000 ML 100 ML IVCONT ×3 (00:04→20:41)
[2022-03-02 00:45] LABS: Reflex Lactate? 2 Y
--- NOTE | 2022-03-02 01:07 | PC.NURSE ---
Report called to Deirdre FAYE
[2022-03-02 01:44] LABS: ~Lactic Acid-LAB USE ONLY 2.4 mmol/L (0.5-2.0)
[2022-03-02] MEDS: Piperacillin Sodium/Tazobactam 3.375 GM in 0.9 % Sodium Chloride 50 ML IV ×4 (02:16→20:40)
[2022-03-02 06:08] LABS: MANUAL DIFF FLAG NO
[2022-03-02 06:29] LABS: Basophils Percent Auto 0.1 % (0-2); Eosinophils Absolute Auto 0.6 X10*3/uL (0.0-0.4); Eosinophils Percent Auto 4.9 % (0-4); Hematocrit 34.6 % (37.0-47.0); Hemoglobin 11.5 g/dl (12.0-16.0); Imm Gran Abs Auto 0.03 X10*3/uL (0.00-0.03); Imm Gran Pct Auto 0.3 % (0.0-0.4); Lymphocytes Absolute Auto 0.3 X10*3/uL (1.2-4.9); Lymphocytes Percent Auto 2.8 % (20-40); Mean Corpuscular HGB Conc 33.2 g/dl (31.0-35.0); Mean Corpuscular Volume 87.4 fL (80.0-98.0); Mean Platelet Volume 10.7 fL (9.4-12.3); Monocytes Absolute Auto 0.5 X10*3/uL (0.1-1.2); Monocytes Percent Auto 4.3 % (2-11); Neutrophils Absolute Auto 10.5 x10*3/uL (2.0-8.3); Neutrophils Percent Auto 87.6 % (45-73); Platelet Count 242 X10*3/uL (160-400); Red Blood Count 3.96 X10*6/uL (4.20-5.50); Red Cell Distribution Width 14.1 % (11.0-16.0)
[2022-03-02 06:34] LABS: Anion Gap 11 (12-20); Blood Urea Nitrogen 17 mg/dL (9-16); Calcium 8.1 mg/dL (8.4-10.2); Carbon Dioxide 17 mmol/L (22-29); Chloride 114 mmol/L (96-108); Creatinine Clr Calc Pharmacy 90.5; Estimated Glomerular Filt Rate > 60; Glucose Random 118 mg/dL (60-115); Potassium 3.8 mmol/L (3.3-5.1); Sodium 138 mmol/L (135-145)
[2022-03-02 07:45] LABS: Glucose, Whole Blood 101 mg/dL (60-115)
[2022-03-02] MEDS: Levothyroxine Sodium 75 MCG TABLET PO (08:03)
--- NOTE | 2022-03-02 08:26 | P.PNIM_ITS ---
Subjective Subjective Date of Service: 03/02/22 Interval History: sepsis/uti, toxic metabolic encephalopathy Review of Systems Patient seems more awake and alert, denies any chest pain or shortness of breath or abdominal pain of fever chills Physical Exam Vital Signs: Vital Signs: Last Vital Signs Temp 100.0 F 03/02/22 07:21 Pulse 104 H 03/02/22 07:21 Resp 19 03/02/22 07:21 BP 132/83 03/02/22 07:21 Pulse Ox 100 03/02/22 07:21 BMI result Body Mass Index 36.9 Appearance: aox2 , ch ill appearing patient.? Eyes: Pupils equal, round and reactive to light.? Sclera nonicteric.? ENT: Pharynx normal.? Moist mucous membranes. cvs: rrr, [id number] res: clear to auscultation ,no rhonchii or wheezing abd: no rebound or guarding ,nt, bs present. ext pulses present , no cyanosis neuro: moves all ext,follows simple commands Objective Data Active Medications Acetaminophen (Acetaminophen 325 Mg Tablet) 650 mg PO Q6H PRN PRN Reason: Pain, Mild (Pain Scale 1-3) Albuterol Sulfate (Albuterol Sulfate 90 Mcg 8 Gm Inhaler) 1 puff INHALE QID PRN PRN Reason: shortness of breath or wheezing Benztropine Mesylate (Benztropine Mesylate 1 Mg Tablet) 1 mg PO BID [facility] Bupropion HCl (Bupropion Hcl 100 Mg Tablet) 50 mg PO BID [facility] Chlorhexidine Gluconate (Chlorhexidine Gluc Oral Rinse 15 Ml Mouthwash) 15 ml BUCCAL BID [facility] Dextrose (Dextrose 50 % 25 Gm/50 Ml Syringe) 25 gm IVPUSH Q15M PRN; Protocol PRN Reason: per Hypoglycemia Standing Ord. Docusate Sodium (Docusate Sodium 100 Mg Capsule) 100 mg PO DAILY PRN PRN Reason: Constipation Ferrous Sulfate (Ferrous Sulfate 324 Mg Tablet.Dr) 324 mg PO BID [facility] Glucose (Glucose Gel 15 Gm Gel..Gram.) 15 gm PO Q15M PRN; Protocol PRN Reason: per Hypoglycemia Standing Ord. Heparin Sodium (Porcine) (Heparin Sodium,Porcine 5,000 Unit/Ml Vial) 5,000 unit SUBCUT Q12H [facility] Last Admin: 03/01/22 23:22 Dose: 5,000 unit Documented by: LINDSEY Piperacillin Sod/Tazobactam (Sod 3.375 gm/ Sodium Chloride) 50 mls @ 100 mls/hr IV Q6H [facility] Last Admin: 03/02/22 08:06 Dose: 100 mls/hr Documented by: NELLY Lactated Ringer's (Lr) 1,000 mls @ 100 mls/hr IVCONT .Q10H [facility] Last Admin: 03/02/22 00:04 Dose: 100 mls/hr Documented by: LINDSEY Insulin Glargine (Insulin Glargine,Hum.Rec.Anlog 100 Unit/Ml 10 Ml Vial) 16 unit SUBCUT BEDTIME PRN PRN Reason: WHEN SUGARS >150 Insulin Human Lispro (Insulin Lispro 100 Unit/Ml 3 Ml Vial) 0 unit SUBCUT QIDACHS [facility]; Protocol Last Admin: 03/02/22 07:51 Dose: Not Given Documented by: LOC Non-Admin Reason: No Insulin Coverage Levothyroxine Sodium (Levothyroxine Sodium 75 Mcg Tablet) 75 mcg PO DAILY@0600 [facility] Last Admin: 03/02/22 08:03 Dose: 75 mcg Documented by: NELLY Magnesium Oxide (Magnesium Oxide 400 Mg Tablet) 400 mg PO DAILY [facility] Melatonin (Melatonin 3 Mg Tablet) 6 mg PO BEDTIME [facility] Multivitamins/Vitamin C (Multivitamin Tablet) 1 tab PO DAILY [facility] Omeprazole (Omeprazole 20 Mg Capsule.Dr) 20 mg PO DAILY@0630 [facility] Ondansetron HCl (Ondansetron Hcl 4 Mg/2 Ml Vial) 4 mg IVPUSH Q8H PRN PRN Reason: Nausea and Vomiting Oxcarbazepine (Oxcarbazepine 300 Mg Tablet) 300 mg PO BID [facility] Pharmacy Consult (Consult Rx Perform Med Rec) 1 each MISCELLANE ONCE PRN PRN Reason: Consult order Pravastatin Sodium (Pravastatin Sodium 20 Mg Tablet) 20 mg PO BEDTIME [facility] Pregabalin (Pregabalin 150 Mg Capsule) 300 mg PO BID [facility] Quetiapine Fumarate (Quetiapine Fumarate 100 Mg Tablet) 500 mg PO BEDTIME [facility] Sodium Chloride (0.9 % Sodium Chloride Flush 3 Ml Syringe) 3 ml IVFLUSH QSHIFT [facility] Last Admin: 03/02/22 07:54 Dose: Not Given Documented by: NELLY Non-Admin Reason: IV Running Thiamine HCl (Thiamine Hcl 100 Mg Tablet) 100 mg PO DAILY [facility] Trazodone HCl (Trazodone Hcl 100 Mg Tablet) 100 mg PO BEDTIME [facility] Labs CBC & Chem 7: 03/02/22 05:48 03/02/22 05:48 Labs: Laboratory Results - last 24 hr 03/01/22 03/01/22 03/01/22 20:16 20:16 20:16 MCV 88.6 MCH 28.9 MCHC 32.6 RDW 14.2 Plt Count 266 D MPV 10.0 Immature Gran % (Auto) 0.5 H Neut % (Auto) 94.7 H Lymph % (Auto) 0.9 L [place] % (Auto) 2.1 Eos % (Auto) 1.7 Baso % (Auto) 0.1 Lymph # (Auto) 0.2 L [place] # (Auto) 0.4 Eos # (Auto) 0.3 Baso # (Auto) 0.0 Abs Immat Gran (auto) 0.08 H Absolute Neuts (auto) 16.3 H Absolute Nucleated RBC 0.000 Nucleated RBC % (auto) 0.0 Smear Tech's Comments VERIFIED PT 13.1 H INR 1.2 H APTT 39.1 H Anion Gap 19 Estim Creat Clear Calc 72.6 Estimated GFR 54 POC Glucose Random Glucose 126 H Lactic Acid Lactic Acid F/U @ 2Hr Lactic Acid F/U @ 4Hr Calcium 9.4 D Total Bilirubin 0.6 AST 59 H ALT 38 H Alkaline Phosphatase 154 H D Total Protein 7.6 Albumin 4.0 Lipase 21 TSH 1.66 Urine Color Urine Appearance Urine pH Ur Specific [place] Urine Protein Urine Glucose (UA) Urine Ketones Urine Blood Urine Nitrite Ur Leukocyte Esterase Urine RBC Urine WBC Ur Squamous Epith Cells Urine Bacteria COVID-19 (NATASHA) COVID-19 Clin Com Influenza Type A (PK) Influenza Type B (PK) Influenza A & B Note 03/01/22 03/01/22 03/01/22 20:16 20:16 20:16 MCV MCH MCHC RDW Plt Count MPV Immature Gran % (Auto) Neut % (Auto) Lymph % (Auto) [place] % (Auto) Eos % (Auto) Baso % (Auto) Lymph # (Auto) [place] # (Auto) Eos # (Auto) Baso # (Auto) Abs Immat Gran (auto) Absolute Neuts (auto) Absolute Nucleated RBC Nucleated RBC % (auto) Smear Tech's Comments PT INR APTT Anion Gap Estim Creat Clear Calc Estimated GFR POC Glucose Random Glucose Lactic Acid 3.9 H* Lactic Acid F/U @ 2Hr Lactic Acid F/U @ 4Hr Calcium Total Bilirubin AST ALT Alkaline Phosphatase Total Protein Albumin Lipase TSH Urine Color Urine Appearance Urine pH Ur Specific [place] Urine Protein Urine Glucose (UA) Urine Ketones Urine Blood Urine Nitrite Ur Leukocyte Esterase Urine RBC Urine WBC Ur Squamous Epith Cells Urine Bacteria COVID-19 (NATASHA) Negative COVID-19 Clin Com See Note Influenza Type A (PK) Negative Influenza Type B (PK) Negative Influenza A & B Note See Note 03/01/22 03/01/22 03/02/22 20:35 22:42 01:18 MCV MCH MCHC RDW Plt Count MPV Immature Gran % (Auto) Neut % (Auto) Lymph % (Auto) [place] % (Auto) Eos % (Auto) Baso % (Auto) Lymph # (Auto) [place] # (Auto) Eos # (Auto) Baso # (Auto) Abs Immat Gran (auto) Absolute Neuts (auto) Absolute Nucleated RBC Nucleated RBC % (auto) Smear Tech's Comments PT INR APTT Anion Gap Estim Creat Clear Calc Estimated GFR POC Glucose Random Glucose Lactic Acid Lactic Acid F/U @ 2Hr 2.9 H* Lactic Acid F/U @ 4Hr 2.4 H* Calcium Total Bilirubin AST ALT Alkaline Phosphatase Total Protein Albumin Lipase TSH Urine Color YELLOW Urine Appearance CLEAR Urine pH 6.0 Ur Specific [place] 1.015 Urine Protein NEG Urine Glucose (UA) NEG Urine Ketones NEG Urine Blood NEG Urine Nitrite NEG Ur Leukocyte Esterase 2+ H Urine RBC 0 Urine WBC 76-150 H Ur Squamous Epith Cells 1+ Urine Bacteria 3+ COVID-19 (NATASHA) COVID-19 Clin Com Influenza Type A (PK) Influenza Type B (PK) Influenza A & B Note 03/02/22 03/02/22 03/02/22 05:48 05:48 07:19 MCV 87.4 MCH 29.0 MCHC 33.2 RDW 14.1 Plt Count 242 MPV 10.7 Immature Gran % (Auto) 0.3 Neut % (Auto) 87.6 H Lymph % (Auto) 2.8 L [place] % (Auto) 4.3 Eos % (Auto) 4.9 H Baso % (Auto) 0.1 Lymph # (Auto) 0.3 L [place] # (Auto) 0.5 Eos # (Auto) 0.6 H Baso # (Auto) 0.0 Abs Immat Gran (auto) 0.03 Absolute Neuts (auto) 10.5 H Absolute Nucleated RBC 0.000 Nucleated RBC % (auto) 0.0 Smear Tech's Comments PT INR APTT Anion Gap 11 L Estim Creat Clear Calc 90.5 Estimated GFR > 60 POC Glucose 101 Random Glucose 118 H Lactic Acid Lactic Acid F/U @ 2Hr Lactic Acid F/U @ 4Hr Calcium 8.1 L D Total Bilirubin AST ALT Alkaline Phosphatase Total Protein Albumin Lipase TSH Urine Color Urine Appearance Urine pH Ur Specific [place] Urine Protein Urine Glucose (UA) Urine Ketones Urine Blood Urine Nitrite Ur Leukocyte Esterase Urine RBC Urine WBC Ur Squamous Epith Cells Urine Bacteria COVID-19 (NATASHA) COVID-19 Clin Com Influenza Type A (PK) Influenza Type B (PK) Influenza A & B Note Assessment and Plan (1) Toxic metabolic encephalopathy: Status: Acute (2) Sepsis: Status: Acute (3) Recurrent UTI: Status: Acute Plan 32-year-old female with past medical history as mentioned above presents to the hospital with sepsis secondary to UTI sepsis Toxic metabolic encephalopathy: Secondary to UTI and sepsis. Mild elevated LFT probably related to above. - secondary to UTI - UA positive, has leukocytosis, tachycardia, febrile - treated with Zosyn based on recent cultures from January - follow blood cultures - IV fluids lactic acidosis - secondary to acute infection - started IV fluids - trending down acute urinary retention - secondary to UTI - Kern catheter in place - IV antibiotics Hypogammaglobinemia - patient receives IVIG q.4 weeks diabetes - hold metformin - start low-dose sliding scale insulin - diabetic diet hypothyroidism - continue levothyroxine DVT prophylaxis:? Heparin subQ Need for inpatient: Sepsis/UTI, blood culture pending, toxic metabolic encephalopathy. Quality Stroke Does the patient have a stroke diagnosis?: No VTE Prior VTE?: No VTE Risk Level:: Medical - moderate - high VTE Device Contraindication: Treatment Not Indicated VTE Drug Contraindication: N/A - Med Ordered
[2022-03-02] MEDS: Benztropine Mesylate 1 MG TABLET PO ×2 (08:30→20:40)
[2022-03-02] MEDS: Multivitamin TABLET 1 TAB PO (08:30)
[2022-03-02] MEDS: Omeprazole 20 MG CAPSULE.DR PO (08:30)
[2022-03-02] MEDS: Magnesium Oxide 400 MG TABLET PO (08:31)
[2022-03-02] MEDS: buPROPion HCL 100 MG TABLET 50 MG PO ×2 (08:33→20:38)
[2022-03-02] MEDS: OXcarbazepine 300 MG TABLET PO ×2 (08:33→20:40)
[2022-03-02] MEDS: Ferrous Sulfate 324 MG TABLET.DR PO ×2 (08:33→20:40)
[2022-03-02] MEDS: Chlorhexidine Gluc Oral Rinse 15 ML MOUTHWASH BUCCAL (08:34)
[2022-03-02] MEDS: Pregabalin 150 MG CAPSULE 300 MG PO ×2 (08:34→20:38)
[2022-03-02] MEDS: Thiamine HCL 100 MG TABLET PO (08:34)
[2022-03-02] MEDS: polyethylene glycoL 3350 17 GM POWD.PACK PO ×2 (09:08→20:41)
[2022-03-02] MEDS: ondansetron HCL 4 MG/2 ML VIAL IVPUSH (09:44)
[2022-03-02 11:13] LABS: Glucose, Whole Blood 134 mg/dL (60-115)
[2022-03-02] MEDS: Heparin Sodium,Porcine 5,000 UNIT/ML VIAL 5000 UNIT SUBCUT ×2 (11:20→22:08)
[2022-03-02] MEDS: Acetaminophen 325 MG TABLET 650 MG PO (11:20)
--- NOTE | 2022-03-02 16:07 | MHC.CM.PN ---
CM MET WITH PT AND MOTHER WHO WAS AT BEDSIDE PT LIVES WITH HER PARENTS WHO PROVIDE ASSISTANCE PRN MOTHER REPORTS PT HAS NO SERVICES AT HOME. SHE SAYS PT DID HAVE MONTHLY NURSING AND [facility] FOR IV IG, HOWEVER INSURANCE WILL NO LONGER COVER SERVICES AT HOME AND SAID IT WOULD NEED TO BE DONE IN A HOSPITAL SETTING SHE REPORTS THEY ARE HOPING TO GET PT SET [place] [facility] [place] SHE REPORTS THIS WAS OVERSEEN BY PTS NEUROLOGY PROVIDERS DR GALVAN (OVERSEEN BY DR LEUNG) BUT NOW CARE IS BEING TRANSITIONED TO [facility] MULLEN. PTS MOTHER ALSO REPORTS PT GOES TO [facility] FOR OP OT/PT AND SPEECH SERVICES PT HAS A W/C, WALKER, SHOWER CHAIR , GRAB BARS, AND HOSPITAL BED AT HOME SHE CONFIRMS PT IS COVID-19 VACCINATED PCP: SWATI MULLEN IMM DELIVERED CURRENT DC PLAN, HOME RESUME FAMILY CARE ?OP IV IG INFUSIONS [place] [facility] [place] [facility] TO [place]SP[place]
[2022-03-02 16:28] LABS: Glucose, Whole Blood 113 mg/dL (60-115)
[2022-03-02] MEDS: QUEtiapine Fumarate 100 MG TABLET 500 MG PO (20:37)
[2022-03-02] MEDS: traZODone HCL 100 MG TABLET PO (20:38)
[2022-03-02] MEDS: Melatonin 3 MG TABLET 6 MG PO (20:38)
[2022-03-02 20:40] LABS: Glucose, Whole Blood 104 mg/dL (60-115)
[2022-03-02] MEDS: Pravastatin Sodium 20 MG TABLET PO (20:40)
[2022-03-02] MEDS: diphenhydrAMINE HCL 50 MG/ML VIAL 25 MG IVPUSH (22:08)
[2022-03-02] MEDS: 0.9 % Sodium Chloride Flush 3 ML SYRINGE IVFLUSH (22:09)
[2022-03-03] VITALS (7 sets, daily range): BP systolic 127–153; BP diastolic 65–85; PULSE 89–99; RESP 17–18; TEMP 36.4–37.1; O2SAT 95–100
[2022-03-03] MEDS: Piperacillin Sodium/Tazobactam 3.375 GM in 0.9 % Sodium Chloride 50 ML IV ×4 (01:07→20:22)
[2022-03-03] MEDS: Omeprazole 20 MG CAPSULE.DR PO (05:39)
[2022-03-03] MEDS: Levothyroxine Sodium 75 MCG TABLET PO (05:39)
[2022-03-03 06:43] LABS: Anion Gap 13 (12-20); Blood Urea Nitrogen 11 mg/dL (9-16); Calcium 8.5 mg/dL (8.4-10.2); Carbon Dioxide 21 mmol/L (22-29); Chloride 110 mmol/L (96-108); Creatinine Clr Calc Pharmacy 109.4; Estimated Glomerular Filt Rate > 60; Glucose Random 93 mg/dL (60-115); Potassium 3.7 mmol/L (3.3-5.1); Sodium 140 mmol/L (135-145)
[2022-03-03 07:30] LABS: Glucose, Whole Blood 108 mg/dL (60-115)
--- NOTE | 2022-03-03 07:50 | HO.PM.IMPN ---
Subjective Subjective Date of Service: 03/03/22 Interval History: sepsis/uti, toxic metabolic encephalopathy Review of Systems Patient seems more awake and alert, denies any chest pain or shortness of breath or abdominal pain of fever chills Physical Exam Vital Signs: Vital Signs: Last Vital Signs Temp 98.7 F 03/03/22 07:42 Pulse 99 03/03/22 07:42 Resp 17 03/03/22 07:42 BP 140/80 H 03/03/22 07:42 Pulse Ox 98 03/03/22 07:42 BMI result Body Mass Index 36.9 ? Appearance: aox2 , ch ill appearing patient.? Eyes: Pupils equal, round and reactive to light.? Sclera nonicteric.? ENT: Pharynx normal.? Moist mucous membranes. cvs: rrr, [id number] res: clear to auscultation ,no rhonchii or wheezing abd: no rebound or guarding ,nt, bs present. ext pulses present , no cyanosis neuro: moves all ext,follows simple commands Objective Data Active Medications Acetaminophen (Acetaminophen 325 Mg Tablet) 650 mg PO Q6H PRN PRN Reason: Pain, Mild (Pain Scale 1-3) Last Admin: 03/02/22 11:20 Dose: 650 mg Documented by: NELLY Acetaminophen (Acetaminophen 325 Mg Tablet) 650 mg PO DAILY@0830 [facility] Stop: 03/05/22 08:29 Albuterol Sulfate (Albuterol Sulfate 90 Mcg 8 Gm Inhaler) 1 puff INHALE QID PRN PRN Reason: shortness of breath or wheezing Benztropine Mesylate (Benztropine Mesylate 1 Mg Tablet) 1 mg PO BID [facility] Last Admin: 03/02/22 20:40 Dose: 1 mg Documented by: SHARMILA Bupropion HCl (Bupropion Hcl 100 Mg Tablet) 50 mg PO BID [facility] Last Admin: 03/02/22 20:38 Dose: 50 mg Documented by: SHARMILA Chlorhexidine Gluconate (Chlorhexidine Gluc Oral Rinse 15 Ml Mouthwash) 15 ml BUCCAL BID [facility] Last Admin: 03/02/22 21:20 Dose: Not Given Documented by: SHARMILA Non-Admin Reason: Patient Refused Dextrose (Dextrose 50 % 25 Gm/50 Ml Syringe) 25 gm IVPUSH Q15M PRN; Protocol PRN Reason: per Hypoglycemia Standing Ord. Diphenhydramine HCl (Diphenhydramine Hcl 50 Mg/Ml Vial) 25 mg IVPUSH DAILY@0830 [facility] Stop: 03/05/22 08:29 Docusate Sodium (Docusate Sodium 100 Mg Capsule) 100 mg PO DAILY PRN PRN Reason: Constipation Ferrous Sulfate (Ferrous Sulfate 324 Mg Tablet.Dr) 324 mg PO BID [facility] Last Admin: 03/02/22 20:40 Dose: 324 mg Documented by: SHARMILA Glucose (Glucose Gel 15 Gm Gel..Gram.) 15 gm PO Q15M PRN; Protocol PRN Reason: per Hypoglycemia Standing Ord. Heparin Sodium (Porcine) (Heparin Sodium,Porcine 5,000 Unit/Ml Vial) 5,000 unit SUBCUT Q12H [facility] Last Admin: 03/02/22 22:08 Dose: 5,000 unit Documented by: SHARMILA Piperacillin Sod/Tazobactam (Sod 3.375 gm/ Sodium Chloride) 50 mls @ 100 mls/hr IV Q6H [facility] Last Infusion: 03/03/22 01:56 Dose: 0 mls/hr Documented by: MARU Lactated Ringer's (Lr) 1,000 mls @ 100 mls/hr IVCONT .Q10H [facility] Last Infusion: 03/03/22 07:25 Dose: 0 mls/hr Documented by: NELLY Immune Globulin (Gammagard 10%) 300 mls @ 46 mls/hr IV ONCE@1321 ONE Stop: 03/03/22 19:52 Immune Globulin (Gammagard 10%) 200 mls @ 46 mls/hr IV ONCE@0900 [facility] Stop: 03/03/22 13:20 Immune Globulin (Gammagard 10%) 200 mls @ 46 mls/hr IV ONCE@1005 [facility] Stop: 03/04/22 14:25 Immune Globulin (Gammagard 10%) 200 mls @ 46 mls/hr IV ONCE@1424 [facility] Stop: 03/04/22 18:44 Immune Globulin (Gammagard 10%) 50 mls @ 46 mls/hr IV ONCE@0900 ONE Stop: 03/04/22 10:05 Insulin Glargine (Insulin Glargine,Hum.Rec.Anlog 100 Unit/Ml 10 Ml Vial) 16 unit SUBCUT BEDTIME PRN PRN Reason: WHEN SUGARS >150 Insulin Human Lispro (Insulin Lispro 100 Unit/Ml 3 Ml Vial) 0 unit SUBCUT QIDACHS [facility]; Protocol Last Admin: 03/03/22 07:37 Dose: Not Given Documented by: NELLY Non-Admin Reason: No Insulin Coverage Levothyroxine Sodium (Levothyroxine Sodium 75 Mcg Tablet) 75 mcg PO DAILY@0600 [facility] Last Admin: 03/03/22 05:39 Dose: 75 mcg Documented by: MARU Magnesium Oxide (Magnesium Oxide 400 Mg Tablet) 400 mg PO DAILY [facility] Last Admin: 03/02/22 08:31 Dose: 400 mg Documented by: LOC Melatonin (Melatonin 3 Mg Tablet) 6 mg PO BEDTIME [facility] Last Admin: 03/02/22 20:38 Dose: 6 mg Documented by: SHARMILA Methylprednisolone Sodium Succinate (Methylprednisolone Sod Succ 40 Mg/Ml Vial) 40 mg IVPUSH DAILY@0830 [facility] Stop: 03/05/22 08:29 Multivitamins/Vitamin C (Multivitamin Tablet) 1 tab PO DAILY [facility] Last Admin: 03/02/22 08:30 Dose: 1 tab Documented by: LOC Omeprazole (Omeprazole 20 Mg Capsule.Dr) 20 mg PO DAILY@0630 [facility] Last Admin: 03/03/22 05:39 Dose: 20 mg Documented by: MARU Ondansetron HCl (Ondansetron Hcl 4 Mg/2 Ml Vial) 4 mg IVPUSH Q8H PRN PRN Reason: Nausea and Vomiting Last Admin: 03/02/22 09:44 Dose: 4 mg Documented by: NELLY Oxcarbazepine (Oxcarbazepine 300 Mg Tablet) 300 mg PO BID [facility] Last Admin: 03/02/22 20:40 Dose: 300 mg Documented by: SHARMILA Pharmacy Consult (Consult Rx Perform Med Rec) 1 each MISCELLANE ONCE PRN PRN Reason: Consult order Polyethylene Glycol (Polyethylene Glycol 3350 17 Gm Powd.Pack) 17 gm PO BID [facility] Last Admin: 03/02/22 20:41 Dose: 17 gm Documented by: SHARMILA Pravastatin Sodium (Pravastatin Sodium 20 Mg Tablet) 20 mg PO BEDTIME [facility] Last Admin: 03/02/22 20:40 Dose: 20 mg Documented by: SHARMILA Pregabalin (Pregabalin 150 Mg Capsule) 300 mg PO BID [facility] Last Admin: 03/02/22 20:38 Dose: 300 mg Documented by: SHARMILA Quetiapine Fumarate (Quetiapine Fumarate 100 Mg Tablet) 500 mg PO BEDTIME [facility] Last Admin: 03/02/22 20:37 Dose: 500 mg Documented by: SHARMILA Sodium Chloride (0.9 % Sodium Chloride Flush 3 Ml Syringe) 3 ml IVFLUSH QSHIFT [facility] Last Admin: 03/02/22 22:09 Dose: 3 ml Documented by: SHARMILA Thiamine HCl (Thiamine Hcl 100 Mg Tablet) 100 mg PO DAILY [facility] Last Admin: 03/02/22 08:34 Dose: 100 mg Documented by: LOC Trazodone HCl (Trazodone Hcl 100 Mg Tablet) 100 mg PO BEDTIME [facility] Last Admin: 03/02/22 20:38 Dose: 100 mg Documented by: SHARMILA Labs CBC & Chem 7: 03/02/22 05:48 03/03/22 05:53 Labs: Laboratory Results - last 24 hr 03/02/22 03/02/22 03/02/22 11:09 16:10 20:30 Anion Gap Estim Creat Clear Calc Estimated GFR POC Glucose 134 H 113 104 Random Glucose Calcium 03/03/22 03/03/22 05:53 07:24 Anion Gap 13 Estim Creat Clear Calc 109.4 Estimated GFR > 60 POC Glucose 108 Random Glucose 93 Calcium 8.5 Microbiology Microbiology Results: Microbiology 03/01/22 20:19 Blood Culture - Preliminary Blood - Venous No growth after 24 hours. 03/01/22 20:19 Blood Culture - Preliminary Blood - Venous No growth after 24 hours. 03/01/22 21:02 Urine Culture - Preliminary Urine clean catch - Clean Catch Midstream Culture in progress. Assessment and Plan (1) Toxic metabolic encephalopathy: Status: Acute (2) Acute alteration in mental status: Status: Acute (3) Recurrent UTI: Status: Acute Plan 32-year-old female with past medical history as mentioned above presents to the hospital with sepsis secondary to UTI ?sepsis Toxic metabolic encephalopathy:(?similar to yesterday) Secondary to UTI and sepsis. Mild elevated LFT probably related to above. - secondary to UTI - UA positive, has leukocytosis, tachycardia-slowly improving, afebrile - treated with Zosyn based on recent cultures from January, blood cultures neg@24hrs ?lactic acidosis-improving , no further trendin acute urinary retention - secondary to UTI - Emmanuel catheter in place - IV antibiotics dc emmanuel,give voiding trial , add flomax urology eval Hypogammaglobinemia - patient receives IVIG q.4 weeks, will add her dose since she did not get this month. diabetes - hold metformin - start low-dose sliding scale insulin - diabetic diet ?hypothyroidism - continue levothyroxine DVT prophylaxis:? Heparin subQ Need for inpatient:? Sepsis/UTI,toxic metabolic encephalopathy. Quality Stroke Does the patient have a stroke diagnosis?: No VTE Prior VTE?: No VTE Risk Level:: Medical - moderate - high VTE Device Contraindication: Treatment Not Indicated VTE Drug Contraindication: N/A - Med Ordered
[2022-03-03] MEDS: Thiamine HCL 100 MG TABLET PO (08:14)
[2022-03-03] MEDS: Multivitamin TABLET 1 TAB PO (08:14)
[2022-03-03] MEDS: Magnesium Oxide 400 MG TABLET PO (08:14)
[2022-03-03] MEDS: Pregabalin 150 MG CAPSULE 300 MG PO ×2 (08:14→20:14)
[2022-03-03] MEDS: Benztropine Mesylate 1 MG TABLET PO ×2 (08:14→20:14)
[2022-03-03] MEDS: OXcarbazepine 300 MG TABLET PO ×2 (08:14→20:14)
[2022-03-03] MEDS: Lactated Ringers 1,000 ML 100 ML IVCONT (08:15)
[2022-03-03] MEDS: Ferrous Sulfate 324 MG TABLET.DR PO ×2 (08:15→20:15)
[2022-03-03] MEDS: buPROPion HCL 100 MG TABLET 50 MG PO ×2 (08:15→20:15)
[2022-03-03] MEDS: 0.9 % Sodium Chloride Flush 3 ML SYRINGE IVFLUSH ×2 (08:16→15:07)
[2022-03-03] MEDS: Chlorhexidine Gluc Oral Rinse 15 ML MOUTHWASH BUCCAL ×2 (08:16→20:15)
[2022-03-03] MEDS: methylPREDNISolone Sod Succ 40 MG/ML VIAL IVPUSH (09:28)
[2022-03-03] MEDS: diphenhydrAMINE HCL 50 MG/ML VIAL 25 MG IVPUSH (09:28)
[2022-03-03] MEDS: Acetaminophen 325 MG TABLET 650 MG PO (09:28)
[2022-03-03] MEDS: Immun Glob G(IgG)/Gly/IGA Ov50 200 ML IV (10:41)
[2022-03-03 11:37] LABS: Glucose, Whole Blood 156 mg/dL (60-115)
[2022-03-03] MEDS: Heparin Sodium,Porcine 5,000 UNIT/ML VIAL 5000 UNIT SUBCUT ×2 (11:52→21:49)
[2022-03-03] MEDS: Insulin Lispro 100 UNIT/ML 3 ML VIAL SUBCUT ×2 (11:52→16:33)
--- NOTE | 2022-03-03 12:08 | MHC.CM.PN ---
PATIENT'S SYMPTOMS IMPROVING. POSSIBLE RETURN HOME WITH FAMILY OVER THIS COMING WEEKEND.
[2022-03-03] MEDS: Tamsulosin HCL 0.4 MG CAPSULE PO (13:45)
[2022-03-03] MEDS: Immun Glob G(IgG)/Gly/IGA Ov50 300 ML IV (15:04)
[2022-03-03 16:28] LABS: Glucose, Whole Blood 206 mg/dL (60-115)
--- NOTE | 2022-03-03 17:56 | PC.NURSE ---
Kern catheter removed at 1345. DTV by 194. Void at 1748 of 420ml. PVR scan of 177ml. Dr Cifuentes notified. Will continue to monitor.
[2022-03-03 19:54] LABS: Glucose, Whole Blood 131 mg/dL (60-115)
[2022-03-03] MEDS: Pravastatin Sodium 20 MG TABLET PO (20:15)
[2022-03-03] MEDS: Melatonin 3 MG TABLET 6 MG PO (20:15)
[2022-03-03] MEDS: polyethylene glycoL 3350 17 GM POWD.PACK PO (20:15)
[2022-03-03] MEDS: traZODone HCL 100 MG TABLET PO (20:15)
[2022-03-03] MEDS: QUEtiapine Fumarate 100 MG TABLET 500 MG PO (21:30)
[2022-03-04] MEDS: Piperacillin Sodium/Tazobactam 3.375 GM in 0.9 % Sodium Chloride 50 ML IV ×4 (02:57→22:58)
[2022-03-04 04:00] VITALS: BP 137/72; PULSE 88; RESP 18; TEMP 37.2; O2SAT 95
[2022-03-04] MEDS: Levothyroxine Sodium 75 MCG TABLET PO (06:05)
[2022-03-04] MEDS: Omeprazole 20 MG CAPSULE.DR PO (06:05)
[2022-03-04 07:03] VITALS: BP 128/74; PULSE 88; RESP 19; TEMP 36.1; O2SAT 97
[2022-03-04 07:07] LABS: Glucose, Whole Blood 110 mg/dL (60-115)
--- NOTE | 2022-03-04 07:47 | HO.PM.IMPN ---
Subjective Subjective Date of Service: 03/04/22 Interval History: sepsis/uti Review of Systems Urinary symptoms improving, no pain or frequency. Denies any chest pain or abdominal pain or nausea vomiting or cough or phlegm. Physical Exam Vital Signs: Vital Signs: Last Vital Signs Temp 97 F 03/04/22 07:03 Pulse 88 03/04/22 07:03 Resp 19 03/04/22 07:03 BP 128/74 03/04/22 07:03 Pulse Ox 97 03/04/22 07:03 BMI result Body Mass Index 36.9 Appearance: aox3 , ch ill appearing patient.? Eyes: Pupils equal, round and reactive to light.? Sclera nonicteric.? ENT: Pharynx normal.? Moist mucous membranes. cvs: rrr, [id number] res: clear to auscultation ,no rhonchii or wheezing abd: no rebound or guarding ,nt, bs present. ext pulses present , no cyanosis neuro: moves all ext,follows simple commands Objective Data Active Medications Acetaminophen (Acetaminophen 325 Mg Tablet) 650 mg PO Q6H PRN PRN Reason: Pain, Mild (Pain Scale 1-3) Last Admin: 03/02/22 11:20 Dose: 650 mg Documented by: NELLY Acetaminophen (Acetaminophen 325 Mg Tablet) 650 mg PO DAILY@0830 [facility] Stop: 03/05/22 08:29 Last Admin: 03/03/22 09:28 Dose: 650 mg Documented by: NELLY Albuterol Sulfate (Albuterol Sulfate 90 Mcg 8 Gm Inhaler) 1 puff INHALE QID PRN PRN Reason: shortness of breath or wheezing Benztropine Mesylate (Benztropine Mesylate 1 Mg Tablet) 1 mg PO BID [facility] Last Admin: 03/03/22 20:14 Dose: 1 mg Documented by: ESTHER Bupropion HCl (Bupropion Hcl 100 Mg Tablet) 50 mg PO BID [facility] Last Admin: 03/03/22 20:15 Dose: 50 mg Documented by: ESTHER Chlorhexidine Gluconate (Chlorhexidine Gluc Oral Rinse 15 Ml Mouthwash) 15 ml BUCCAL BID [facility] Last Admin: 03/03/22 20:15 Dose: 15 ml Documented by: ESTHER Dextrose (Dextrose 50 % 25 Gm/50 Ml Syringe) 25 gm IVPUSH Q15M PRN; Protocol PRN Reason: per Hypoglycemia Standing Ord. Diphenhydramine HCl (Diphenhydramine Hcl 50 Mg/Ml Vial) 25 mg IVPUSH DAILY@0830 [facility] Stop: 03/05/22 08:29 Last Admin: 03/03/22 09:28 Dose: 25 mg Documented by: NELLY Docusate Sodium (Docusate Sodium 100 Mg Capsule) 100 mg PO DAILY PRN PRN Reason: Constipation Ferrous Sulfate (Ferrous Sulfate 324 Mg Tablet.Dr) 324 mg PO BID [facility] Last Admin: 03/03/22 20:15 Dose: 324 mg Documented by: ESTHER Glucose (Glucose Gel 15 Gm Gel..Gram.) 15 gm PO Q15M PRN; Protocol PRN Reason: per Hypoglycemia Standing Ord. Heparin Sodium (Porcine) (Heparin Sodium,Porcine 5,000 Unit/Ml Vial) 5,000 unit SUBCUT Q12H [facility] Last Admin: 03/03/22 21:49 Dose: 5,000 unit Documented by: ESTHER Piperacillin Sod/Tazobactam (Sod 3.375 gm/ Sodium Chloride) 50 mls @ 100 mls/hr IV Q6H [facility] Last Infusion: 03/04/22 03:39 Dose: 0 mls/hr Documented by: ESTHER Immune Globulin (Gammagard 10%) 200 mls @ 46 mls/hr IV ONCE@1005 [facility] Stop: 03/04/22 14:25 Immune Globulin (Gammagard 10%) 200 mls @ 46 mls/hr IV ONCE@1424 [facility] Stop: 03/04/22 18:44 Immune Globulin (Gammagard 10%) 50 mls @ 46 mls/hr IV ONCE@0900 [facility] Stop: 03/04/22 10:05 Insulin Glargine (Insulin Glargine,Hum.Rec.Anlog 100 Unit/Ml 10 Ml Vial) 16 unit SUBCUT BEDTIME PRN PRN Reason: WHEN SUGARS >150 Insulin Human Lispro (Insulin Lispro 100 Unit/Ml 3 Ml Vial) 0 unit SUBCUT QIDACHS [facility]; Protocol Last Admin: 03/04/22 07:39 Dose: Not Given Documented by: RUTHIE Non-Admin Reason: No Insulin Coverage Levothyroxine Sodium (Levothyroxine Sodium 75 Mcg Tablet) 75 mcg PO DAILY@0600 [facility] Last Admin: 03/04/22 06:05 Dose: 75 mcg Documented by: ESTHER Magnesium Oxide (Magnesium Oxide 400 Mg Tablet) 400 mg PO DAILY [facility] Last Admin: 03/03/22 08:14 Dose: 400 mg Documented by: NELLY Melatonin (Melatonin 3 Mg Tablet) 6 mg PO BEDTIME [facility] Last Admin: 03/03/22 20:15 Dose: 6 mg Documented by: ESTHER Methylprednisolone Sodium Succinate (Methylprednisolone Sod Succ 40 Mg/Ml Vial) 40 mg IVPUSH DAILY@0830 [facility] Stop: 03/05/22 08:29 Last Admin: 03/03/22 09:28 Dose: 40 mg Documented by: NELLY Multivitamins/Vitamin C (Multivitamin Tablet) 1 tab PO DAILY [facility] Last Admin: 03/03/22 08:14 Dose: 1 tab Documented by: NELLY Omeprazole (Omeprazole 20 Mg Capsule.Dr) 20 mg PO DAILY@0630 [facility] Last Admin: 03/04/22 06:05 Dose: 20 mg Documented by: ESTHER Ondansetron HCl (Ondansetron Hcl 4 Mg/2 Ml Vial) 4 mg IVPUSH Q8H PRN PRN Reason: Nausea and Vomiting Last Admin: 03/02/22 09:44 Dose: 4 mg Documented by: NELLY Oxcarbazepine (Oxcarbazepine 300 Mg Tablet) 300 mg PO BID [facility] Last Admin: 03/03/22 20:14 Dose: 300 mg Documented by: ESTHER Pharmacy Consult (Consult Rx Perform Med Rec) 1 each MISCELLANE ONCE PRN PRN Reason: Consult order Polyethylene Glycol (Polyethylene Glycol 3350 17 Gm Powd.Pack) 17 gm PO BID [facility] Last Admin: 03/03/22 20:15 Dose: 17 gm Documented by: ESTHER Pravastatin Sodium (Pravastatin Sodium 20 Mg Tablet) 20 mg PO BEDTIME [facility] Last Admin: 03/03/22 20:15 Dose: 20 mg Documented by: ESTHER Pregabalin (Pregabalin 150 Mg Capsule) 300 mg PO BID [facility] Last Admin: 03/03/22 20:14 Dose: 300 mg Documented by: ESTHER Quetiapine Fumarate (Quetiapine Fumarate 100 Mg Tablet) 500 mg PO BEDTIME [facility] Last Admin: 03/03/22 21:30 Dose: 500 mg Documented by: ESTHER Sodium Chloride (0.9 % Sodium Chloride Flush 3 Ml Syringe) 3 ml IVFLUSH QSHIFT [facility] Last Admin: 03/03/22 22:25 Dose: Not Given Documented by: ESTHER Non-Admin Reason: IV Running Tamsulosin HCl (Tamsulosin Hcl 0.4 Mg Capsule) 0.4 mg PO DAILY [facility] Last Admin: 03/03/22 13:45 Dose: 0.4 mg Documented by: NELLY Thiamine HCl (Thiamine Hcl 100 Mg Tablet) 100 mg PO DAILY [facility] Last Admin: 03/03/22 08:14 Dose: 100 mg Documented by: NELLY Trazodone HCl (Trazodone Hcl 100 Mg Tablet) 100 mg PO BEDTIME [facility] Last Admin: 03/03/22 20:15 Dose: 100 mg Documented by: ESTHER Labs CBC & Chem 7: 03/02/22 05:48 03/03/22 05:53 Labs: Laboratory Results - last 24 hr 03/03/22 03/03/22 03/03/22 11:23 15:58 19:47 POC Glucose 156 H 206 H 131 H 03/04/22 07:02 POC Glucose 110 Microbiology Microbiology Results: Microbiology 03/01/22 20:19 Blood Culture - Preliminary Blood - Venous No growth after 48 hours. 03/01/22 20:19 Blood Culture - Preliminary Blood - Venous No growth after 48 hours. 03/01/22 21:02 Urine Culture - Preliminary Urine clean catch - Clean Catch Midstream Gram positive cocci Lactobacillus species Assessment and Plan (1) Toxic metabolic encephalopathy: Status: Acute (2) Sepsis: Status: Acute (3) Urinary tract infection: Status: Acute Plan 32-year-old female with past medical history as mentioned above presents to the hospital with sepsis secondary to UTI ?sepsis Toxic metabolic encephalopathy:(?similar to yesterday) Secondary to UTI and sepsis. Mild elevated LFT probably related to above. - secondary to UTI - UA positive, has leukocytosis, tachycardia-slowly improving, afebrile - treated with Zosyn based on recent cultures from January, blood cultures neg@24hrs ?lactic acidosis-improving , no further trendin acute urinary retention - secondary to UTI - Emmanuel catheter in place - IV antibiotics dc emmanuel,give voiding trial , add flomax urology eval-recomeded self catheterisation Hypogammaglobinemia - patient receives IVIG q.4 weeks, will add her dose since she did not get this month. diabetes - hold metformin - start low-dose sliding scale insulin - diabetic diet ?hypothyroidism - continue levothyroxine DVT prophylaxis:? Heparin subQ Need for inpatient:? Sepsis/UTI-UTI enteoccous faecalis -senstivities and iD eval pending Quality Stroke Does the patient have a stroke diagnosis?: No VTE Prior VTE?: No VTE Risk Level:: Medical - moderate - high VTE Device Contraindication: Treatment Not Indicated VTE Drug Contraindication: N/A - Med Ordered
[2022-03-04] MEDS: Multivitamin TABLET 1 TAB PO (08:47)
[2022-03-04] MEDS: Tamsulosin HCL 0.4 MG CAPSULE PO (08:47)
[2022-03-04] MEDS: Magnesium Oxide 400 MG TABLET PO (08:47)
[2022-03-04] MEDS: Thiamine HCL 100 MG TABLET PO (08:48)
[2022-03-04] MEDS: Benztropine Mesylate 1 MG TABLET PO ×2 (08:48→21:04)
[2022-03-04] MEDS: Acetaminophen 325 MG TABLET 650 MG PO (08:48)
[2022-03-04] MEDS: Pregabalin 150 MG CAPSULE 300 MG PO ×2 (08:48→21:04)
[2022-03-04] MEDS: Ferrous Sulfate 324 MG TABLET.DR PO ×2 (08:48→21:05)
[2022-03-04] MEDS: OXcarbazepine 300 MG TABLET PO ×2 (08:48→21:04)
[2022-03-04] MEDS: 0.9 % Sodium Chloride Flush 3 ML SYRINGE IVFLUSH (08:49)
[2022-03-04] MEDS: buPROPion HCL 100 MG TABLET 50 MG PO ×2 (08:49→21:04)
[2022-03-04] MEDS: Chlorhexidine Gluc Oral Rinse 15 ML MOUTHWASH BUCCAL ×2 (08:51→21:04)
[2022-03-04] MEDS: methylPREDNISolone Sod Succ 40 MG/ML VIAL IVPUSH (08:51)
[2022-03-04] MEDS: diphenhydrAMINE HCL 50 MG/ML VIAL 25 MG IVPUSH (08:51)
[2022-03-04] MEDS: polyethylene glycoL 3350 17 GM POWD.PACK PO ×2 (08:52→21:05)
[2022-03-04] MEDS: Immun Glob G(IgG)/Gly/IGA Ov50 200 ML IV ×2 (10:50→18:26)
[2022-03-04 10:58] VITALS: BP 143/90; PULSE 86; RESP 18; TEMP 35.9; O2SAT 96
[2022-03-04 11:19] LABS: Glucose, Whole Blood 147 mg/dL (60-115)
[2022-03-04] MEDS: Heparin Sodium,Porcine 5,000 UNIT/ML VIAL 5000 UNIT SUBCUT ×2 (12:06→21:16)
[2022-03-04 15:23] VITALS: BP 118/80; PULSE 96; RESP 18; TEMP 36.9; O2SAT 96
[2022-03-04 15:50] LABS: Glucose, Whole Blood 236 mg/dL (60-115)
[2022-03-04] MEDS: Insulin Lispro 100 UNIT/ML 3 ML VIAL SUBCUT (16:54)
[2022-03-04 19:45] VITALS: BP 129/89; PULSE 86; RESP 18; TEMP 36.6; O2SAT 98
[2022-03-04 20:06] LABS: Glucose, Whole Blood 142 mg/dL (60-115)
[2022-03-04] MEDS: Melatonin 3 MG TABLET 6 MG PO (21:04)
[2022-03-04] MEDS: Pravastatin Sodium 20 MG TABLET PO (21:05)
[2022-03-04] MEDS: traZODone HCL 100 MG TABLET PO (21:05)
[2022-03-04] MEDS: QUEtiapine Fumarate 100 MG TABLET 500 MG PO (21:15)
[2022-03-04 23:56] VITALS: BP 138/88; PULSE 95; RESP 18; TEMP 36.4; O2SAT 97
[2022-03-05 03:38] VITALS: BP 158/96; PULSE 84; RESP 17; TEMP 36.2; O2SAT 97
[2022-03-05] MEDS: Piperacillin Sodium/Tazobactam 3.375 GM in 0.9 % Sodium Chloride 50 ML IV ×4 (04:45→23:07)
[2022-03-05] MEDS: Levothyroxine Sodium 75 MCG TABLET PO (04:45)
[2022-03-05] MEDS: Omeprazole 20 MG CAPSULE.DR PO (04:45)
[2022-03-05 06:52] VITALS: BP 152/90; PULSE 86; RESP 18; TEMP 36.1; O2SAT 96
--- NOTE | 2022-03-05 07:35 | HO.PM.IMPN ---
Subjective Subjective Date of Service: 03/05/22 Interval History: uti/sepsis Review of Systems Urinary symptoms improving, no pain or frequency. Denies any chest pain or abdominal pain or nausea vomiting or cough or phlegm. Physical Exam Vital Signs: Vital Signs: Last Vital Signs Temp 97 F 03/05/22 06:52 Pulse 86 03/05/22 06:52 Resp 18 03/05/22 06:52 BP 152/90 H 03/05/22 06:52 Pulse Ox 96 03/05/22 06:52 BMI result Body Mass Index 36.9 Appearance: aox3 , ch ill appearing patient.? Eyes: Pupils equal, round and reactive to light.? Sclera nonicteric.? ENT: Pharynx normal.? Moist mucous membranes. cvs: rrr, [id number] res: clear to auscultation ,no rhonchii or wheezing abd: no rebound or guarding ,nt, bs present. ext pulses present , no cyanosis neuro: moves all ext,follows simple commands Objective Data Active Medications Acetaminophen (Acetaminophen 325 Mg Tablet) 650 mg PO Q6H PRN PRN Reason: Pain, Mild (Pain Scale 1-3) Last Admin: 03/02/22 11:20 Dose: 650 mg Documented by: NELLY Acetaminophen (Acetaminophen 325 Mg Tablet) 650 mg PO DAILY@0830 [facility] Stop: 03/05/22 08:29 Last Admin: 03/04/22 08:48 Dose: 650 mg Documented by: RUTHIE Albuterol Sulfate (Albuterol Sulfate 90 Mcg 8 Gm Inhaler) 1 puff INHALE QID PRN PRN Reason: shortness of breath or wheezing Benztropine Mesylate (Benztropine Mesylate 1 Mg Tablet) 1 mg PO BID [facility] Last Admin: 03/04/22 21:04 Dose: 1 mg Documented by: ESTHER Bupropion HCl (Bupropion Hcl 100 Mg Tablet) 50 mg PO BID [facility] Last Admin: 03/04/22 21:04 Dose: 50 mg Documented by: ESTHER Chlorhexidine Gluconate (Chlorhexidine Gluc Oral Rinse 15 Ml Mouthwash) 15 ml BUCCAL BID [facility] Last Admin: 03/04/22 21:04 Dose: 15 ml Documented by: ESTHER Dextrose (Dextrose 50 % 25 Gm/50 Ml Syringe) 25 gm IVPUSH Q15M PRN; Protocol PRN Reason: per Hypoglycemia Standing Ord. Diphenhydramine HCl (Diphenhydramine Hcl 50 Mg/Ml Vial) 25 mg IVPUSH DAILY@0830 [facility] Stop: 03/05/22 08:29 Last Admin: 03/04/22 08:51 Dose: 25 mg Documented by: RUTHIE Docusate Sodium (Docusate Sodium 100 Mg Capsule) 100 mg PO DAILY PRN PRN Reason: Constipation Ferrous Sulfate (Ferrous Sulfate 324 Mg Tablet.Dr) 324 mg PO BID [facility] Last Admin: 03/04/22 21:05 Dose: 324 mg Documented by: ESTHER Glucose (Glucose Gel 15 Gm Gel..Gram.) 15 gm PO Q15M PRN; Protocol PRN Reason: per Hypoglycemia Standing Ord. Heparin Sodium (Porcine) (Heparin Sodium,Porcine 5,000 Unit/Ml Vial) 5,000 unit SUBCUT Q12H [facility] Last Admin: 03/04/22 21:16 Dose: 5,000 unit Documented by: ESTHER Piperacillin Sod/Tazobactam (Sod 3.375 gm/ Sodium Chloride) 50 mls @ 100 mls/hr IV Q6H [facility] Last Infusion: 03/05/22 05:29 Dose: 0 mls/hr Documented by: ESTHER Insulin Glargine (Insulin Glargine,Hum.Rec.Anlog 100 Unit/Ml 10 Ml Vial) 16 unit SUBCUT BEDTIME PRN PRN Reason: WHEN SUGARS >150 Insulin Human Lispro (Insulin Lispro 100 Unit/Ml 3 Ml Vial) 0 unit SUBCUT QIDACHS [facility]; Protocol Last Admin: 03/04/22 20:19 Dose: Not Given Documented by: ESTHER Non-Admin Reason: No Insulin Coverage Levothyroxine Sodium (Levothyroxine Sodium 75 Mcg Tablet) 75 mcg PO DAILY@0600 [facility] Last Admin: 03/05/22 04:45 Dose: 75 mcg Documented by: ESTHER Magnesium Oxide (Magnesium Oxide 400 Mg Tablet) 400 mg PO DAILY [facility] Last Admin: 03/04/22 08:47 Dose: 400 mg Documented by: RUTHIE Melatonin (Melatonin 3 Mg Tablet) 6 mg PO BEDTIME [facility] Last Admin: 03/04/22 21:04 Dose: 6 mg Documented by: ESTHER Methylprednisolone Sodium Succinate (Methylprednisolone Sod Succ 40 Mg/Ml Vial) 40 mg IVPUSH DAILY@0830 [facility] Stop: 03/05/22 08:29 Last Admin: 03/04/22 08:51 Dose: 40 mg Documented by: RUTHIE Multivitamins/Vitamin C (Multivitamin Tablet) 1 tab PO DAILY [facility] Last Admin: 03/04/22 08:47 Dose: 1 tab Documented by: RUTHIE Omeprazole (Omeprazole 20 Mg Capsule.Dr) 20 mg PO DAILY@0630 [facility] Last Admin: 03/05/22 04:45 Dose: 20 mg Documented by: ESTHER Ondansetron HCl (Ondansetron Hcl 4 Mg/2 Ml Vial) 4 mg IVPUSH Q8H PRN PRN Reason: Nausea and Vomiting Last Admin: 03/02/22 09:44 Dose: 4 mg Documented by: NELLY Oxcarbazepine (Oxcarbazepine 300 Mg Tablet) 300 mg PO BID [facility] Last Admin: 03/04/22 21:04 Dose: 300 mg Documented by: ESTHER Pharmacy Consult (Consult Rx Perform Med Rec) 1 each MISCELLANE ONCE PRN PRN Reason: Consult order Polyethylene Glycol (Polyethylene Glycol 3350 17 Gm Powd.Pack) 17 gm PO BID [facility] Last Admin: 03/04/22 21:05 Dose: 17 gm Documented by: ESTHER Pravastatin Sodium (Pravastatin Sodium 20 Mg Tablet) 20 mg PO BEDTIME [facility] Last Admin: 03/04/22 21:05 Dose: 20 mg Documented by: ESTHER Pregabalin (Pregabalin 150 Mg Capsule) 300 mg PO BID [facility] Last Admin: 03/04/22 21:04 Dose: 300 mg Documented by: ESTHER Quetiapine Fumarate (Quetiapine Fumarate 100 Mg Tablet) 500 mg PO BEDTIME [facility] Last Admin: 03/04/22 21:15 Dose: 500 mg Documented by: ESTHER Sodium Chloride (0.9 % Sodium Chloride Flush 3 Ml Syringe) 3 ml IVFLUSH QSHIFT [facility] Last Admin: 03/04/22 23:02 Dose: Not Given Documented by: ESTHER Non-Admin Reason: IV Running Tamsulosin HCl (Tamsulosin Hcl 0.4 Mg Capsule) 0.4 mg PO DAILY [facility] Last Admin: 03/04/22 08:47 Dose: 0.4 mg Documented by: RUTHIE Thiamine HCl (Thiamine Hcl 100 Mg Tablet) 100 mg PO DAILY [facility] Last Admin: 03/04/22 08:48 Dose: 100 mg Documented by: RUTHIE Trazodone HCl (Trazodone Hcl 100 Mg Tablet) 100 mg PO BEDTIME [facility] Last Admin: 03/04/22 21:05 Dose: 100 mg Documented by: ESTHER Labs CBC & Chem 7: 03/02/22 05:48 03/03/22 05:53 Labs: Laboratory Results - last 24 hr 03/04/22 03/04/22 03/04/22 10:58 15:27 19:37 POC Glucose 147 H 236 H 142 H Microbiology Microbiology Results: Microbiology 03/01/22 21:02 Urine Culture - Preliminary Urine clean catch - Clean Catch Midstream Enterococcus faecium Lactobacillus species Assessment and Plan (1) Toxic metabolic encephalopathy: Status: Acute (2) Sepsis: Status: Acute (3) Urinary tract infection: Status: Acute Plan 32-year-old female with past medical history as mentioned above presents to the hospital with sepsis secondary to UTI ?sepsisand Toxic metabolic encephalopathy:(?similar to yesterday) Secondary to UTI seems improved Mild elevated LFT probably related to above. - secondary to UTI - UA positive, leukocytosistrending down , tachycardia-improved, afebrile urine culture -enterococcus faecium - treated with Zosyn based on recent cultures from January, blood cultures neg@24hrs ?lactic acidosis-improving , no further trendin acute urinary retention - secondary to UTI - Emmanuel catheter in place - IV antibiotics dc emmanuel,give voiding trial , add flomax urology eval-recomeded self catheterisation Hypogammaglobinemia - patient receives IVIG q.4 weeks, will add her dose since she did not get this month. diabetes - hold metformin - start low-dose sliding scale insulin - diabetic diet ?hypothyroidism - continue levothyroxine DVT prophylaxis:? Heparin subQ Need for inpatient:? Sepsis/UTI-UTI enteoccous faecalis -senstivities and iD eval pending Quality Stroke Does the patient have a stroke diagnosis?: No VTE Prior VTE?: No VTE Risk Level:: Medical - moderate - high VTE Device Contraindication: Treatment Not Indicated VTE Drug Contraindication: N/A - Med Ordered
[2022-03-05 08:29] LABS: Glucose, Whole Blood 102 mg/dL (60-115)
[2022-03-05] MEDS: ondansetron HCL 4 MG/2 ML VIAL IVPUSH (08:56)
[2022-03-05] MEDS: polyethylene glycoL 3350 17 GM POWD.PACK PO (08:57)
[2022-03-05] MEDS: 0.9 % Sodium Chloride Flush 3 ML SYRINGE IVFLUSH ×3 (08:59→20:25)
[2022-03-05] MEDS: Benztropine Mesylate 1 MG TABLET PO ×2 (08:59→20:24)
[2022-03-05] MEDS: Tamsulosin HCL 0.4 MG CAPSULE PO (08:59)
[2022-03-05] MEDS: Thiamine HCL 100 MG TABLET PO (08:59)
[2022-03-05] MEDS: buPROPion HCL 100 MG TABLET 50 MG PO ×2 (08:59→20:24)
[2022-03-05] MEDS: Chlorhexidine Gluc Oral Rinse 15 ML MOUTHWASH BUCCAL ×2 (08:59→20:23)
[2022-03-05] MEDS: Ferrous Sulfate 324 MG TABLET.DR PO ×2 (09:00→20:23)
[2022-03-05] MEDS: Magnesium Oxide 400 MG TABLET PO (09:00)
[2022-03-05] MEDS: Pregabalin 150 MG CAPSULE 300 MG PO ×2 (09:00→20:23)
[2022-03-05] MEDS: Multivitamin TABLET 1 TAB PO (09:00)
[2022-03-05] MEDS: OXcarbazepine 300 MG TABLET PO ×2 (09:11→20:23)
[2022-03-05 10:53] VITALS: BP 150/99; PULSE 79; RESP 18; TEMP 36.1; O2SAT 94
[2022-03-05 11:14] LABS: Glucose, Whole Blood 161 mg/dL (60-115)
[2022-03-05] MEDS: Heparin Sodium,Porcine 5,000 UNIT/ML VIAL 5000 UNIT SUBCUT ×2 (12:11→23:07)
[2022-03-05] MEDS: Insulin Lispro 100 UNIT/ML 3 ML VIAL SUBCUT ×2 (12:11→20:25)
[2022-03-05] MEDS: LORazepam 2 MG/ML VIAL 0.5 MG IVPUSH (12:46)
[2022-03-05 15:29] VITALS: BP 124/90; PULSE 84; RESP 18; TEMP 37.1; O2SAT 99
[2022-03-05 16:03] LABS: Glucose, Whole Blood 104 mg/dL (60-115)
[2022-03-05 19:11] VITALS: BP 149/90; PULSE 94; RESP 18; TEMP 36.7; O2SAT 96
[2022-03-05 20:07] LABS: Glucose, Whole Blood 157 mg/dL (60-115)
[2022-03-05] MEDS: Melatonin 3 MG TABLET 6 MG PO (20:20)
[2022-03-05] MEDS: QUEtiapine Fumarate 100 MG TABLET 500 MG PO (20:23)
[2022-03-05] MEDS: Pravastatin Sodium 20 MG TABLET PO (20:23)
[2022-03-05] MEDS: traZODone HCL 100 MG TABLET PO (20:42)
--- NOTE | 2022-03-05 22:39 | P.CNID_ITS ---
History of Present Illness Data of Consult Service Date: 03/04/22 Requesting physician: Eduarda Rivas Primary Care Provider: Lachelle Guerra MD HPI Reason for consult: urinary infection concerns She presents with dysuria as well as fatigue. She has no fever or chilsl but feels weak. Review of Systems Review of Systems: Yes all other systems are reviewed and are negative PMFSH Past Medical History Medical History (Updated 03/27/22 @ 15:44 by Lachelle Guerra MD) Acquired hypothyroidism Anemia ARDS (adult respiratory distress syndrome) Bipolar disorder Bipolar disorder Depot contraception Diabetes mellitus with hyperglycemia DM2 (diabetes mellitus, type 2) Esophagitis with gastritis Essential hypertension Gastric paresis Hyperlipidemia Hypogammaglobulinemia Muscle weakness Obesity due to excess calories Obesity, morbid, BMI 40.0-49.9 Peripheral neuropathy Pneumonia due to 2019 novel coronavirus Recurrent UTI Tremor of unknown origin Vitamin D deficiency Yeast infection involving the vagina and surrounding area Family History Family History Other Adopted Family history: reviewed and not pertinent Surgical History Surgical History Hx of section Hx of tooth extraction Social History Social History Household Members: Family Housing: Apartment Do you presently have visiting nurse or other home services: Yes Alcohol intake: never Patient Tobacco Use Status: Former Tobacco user Tobacco use type: Cigarette e-Cigarette/Vaping Use: Never Used Second Hand Smoke Exposure: No service: No Current occupational status: disabled Gender identity: Female Meds Allergies Allergy/AdvReac Type Severity Reaction Status Date / Time latex Allergy Unknown rash Verified 02/14/22 13:28 metoclopramide [From REGLAN] AdvReac Unknown INTERACTS Verified 02/14/22 13:28 W/ SEROQUEL Active Medications: Current Medications Acetaminophen (Acetaminophen 325 Mg Tablet) 650 mg PO Q6H PRN PRN Reason: Pain, Mild (Pain Scale 1-3) Last Admin: 03/02/22 11:20 Dose: 650 mg Documented by: Albuterol Sulfate (Albuterol Sulfate 90 Mcg 8 Gm Inhaler) 1 puff INHALE QID PRN PRN Reason: shortness of breath or wheezing Benztropine Mesylate (Benztropine Mesylate 1 Mg Tablet) 1 mg PO BID [facility] Last Admin: 03/05/22 20:24 Dose: 1 mg Documented by: Bupropion HCl (Bupropion Hcl 100 Mg Tablet) 50 mg PO BID [facility] Last Admin: 03/05/22 20:24 Dose: 50 mg Documented by: Chlorhexidine Gluconate (Chlorhexidine Gluc Oral Rinse 15 Ml Mouthwash) 15 ml BUCCAL BID [facility] Last Admin: 03/05/22 20:23 Dose: 15 ml Documented by: Dextrose (Dextrose 50 % 25 Gm/50 Ml Syringe) 25 gm IVPUSH Q15M PRN; Protocol PRN Reason: per Hypoglycemia Standing Ord. Docusate Sodium (Docusate Sodium 100 Mg Capsule) 100 mg PO DAILY PRN PRN Reason: Constipation Ferrous Sulfate (Ferrous Sulfate 324 Mg Tablet.Dr) 324 mg PO BID [facility] Last Admin: 03/05/22 20:23 Dose: 324 mg Documented by: Glucose (Glucose Gel 15 Gm Gel..Gram.) 15 gm PO Q15M PRN; Protocol PRN Reason: per Hypoglycemia Standing Ord. Heparin Sodium (Porcine) (Heparin Sodium,Porcine 5,000 Unit/Ml Vial) 5,000 unit SUBCUT Q12H [facility] Last Admin: 03/05/22 12:11 Dose: 5,000 unit Documented by: Piperacillin Sod/Tazobactam (Sod 3.375 gm/ Sodium Chloride) 50 mls @ 100 mls/hr IV Q6H [facility] Last Infusion: 03/05/22 18:21 Dose: Infused Documented by: Insulin Glargine (Insulin Glargine,Hum.Rec.Anlog 100 Unit/Ml 10 Ml Vial) 16 unit SUBCUT BEDTIME PRN PRN Reason: WHEN SUGARS >150 Insulin Human Lispro (Insulin Lispro 100 Unit/Ml 3 Ml Vial) 0 unit SUBCUT QIDACHS [facility]; Protocol Last Admin: 03/05/22 20:25 Dose: 2 unit Documented by: Levothyroxine Sodium (Levothyroxine Sodium 75 Mcg Tablet) 75 mcg PO DAILY@0600 [facility] Last Admin: 03/05/22 04:45 Dose: 75 mcg Documented by: Magnesium Oxide (Magnesium Oxide 400 Mg Tablet) 400 mg PO DAILY [facility] Last Admin: 03/05/22 09:00 Dose: 400 mg Documented by: Melatonin (Melatonin 3 Mg Tablet) 6 mg PO BEDTIME [facility] Last Admin: 03/05/22 20:20 Dose: 6 mg Documented by: Multivitamins/Vitamin C (Multivitamin Tablet) 1 tab PO DAILY [facility] Last Admin: 03/05/22 09:00 Dose: 1 tab Documented by: Omeprazole (Omeprazole 20 Mg Capsule.) 20 mg PO DAILY@0630 [facility] Last Admin: 03/05/22 04:45 Dose: 20 mg Documented by: Ondansetron HCl (Ondansetron Hcl 4 Mg/2 Ml Vial) 4 mg IVPUSH Q8H PRN PRN Reason: Nausea and Vomiting Last Admin: 03/05/22 08:56 Dose: 4 mg Documented by: Oxcarbazepine (Oxcarbazepine 300 Mg Tablet) 300 mg PO BID [facility] Last Admin: 03/05/22 20:23 Dose: 300 mg Documented by: Pharmacy Consult (Consult Rx Perform Med Rec) 1 each MISCELLANE ONCE PRN PRN Reason: Consult order Polyethylene Glycol (Polyethylene Glycol 3350 17 Gm Powd.Pack) 17 gm PO BID [facility] Last Admin: 03/05/22 20:36 Dose: Not Given Documented by: Pravastatin Sodium (Pravastatin Sodium 20 Mg Tablet) 20 mg PO BEDTIME [facility] Last Admin: 03/05/22 20:23 Dose: 20 mg Documented by: Pregabalin (Pregabalin 150 Mg Capsule) 300 mg PO BID [facility] Last Admin: 03/05/22 20:23 Dose: 300 mg Documented by: Quetiapine Fumarate (Quetiapine Fumarate 100 Mg Tablet) 500 mg PO BEDTIME [facility] Last Admin: 03/05/22 20:23 Dose: 500 mg Documented by: Sodium Chloride (0.9 % Sodium Chloride Flush 3 Ml Syringe) [facility] Admin: 03/05/22 20:25 Dose: 3 ml Documented by: Tamsulosin HCl (Tamsulosin Hcl 0.4 Mg Capsule) 0.4 mg PO DAILY [facility] Last Admin: 03/05/22 08:59 Dose: 0.4 mg Documented by: Thiamine HCl (Thiamine Hcl 100 Mg Tablet) 100 mg PO DAILY [facility] Last Admin: 03/05/22 08:59 Dose: 100 mg Documented by: Trazodone HCl (Trazodone Hcl 100 Mg Tablet) 100 mg PO BEDTIME [facility] Last Admin: 03/05/22 20:42 Dose: 100 mg Documented by: Home Medications Medication Instructions Recorded Confirmed Last Taken Type bupropion HCl 100 mg tablet,12 hr 100 mg PO QAM 11/30/20 03/01/22 03/01/22 History sustained-release trazodone 100 mg tablet 100 mg PO BEDTIME 11/30/20 03/01/22 02/28/22 History cranberry 400 mg capsule 450 mg PO DAILY cap 03/22/21 03/01/22 03/01/22 History melatonin 3 mg tablet 6 mg PO BEDTIME 03/22/21 03/01/22 02/28/22 History multivitamin 1 tab PO DAILY 03/22/21 03/01/22 03/01/22 History pregabalin 300 mg capsule 300 mg PO BID cap 05/10/21 03/01/22 03/01/22 History oxcarbazepine 150 mg tablet 300 mg PO BID tab 08/18/21 03/01/22 03/01/22 History immun glob G 10 gram/100 450 ml SUBCUT Q4W 12/14/21 03/01/22 02/01/22 History mL(10%)-gly-IgA ov50 mcg/mL subcutaneous soln immun glob G 10 gram/100 500 ml SUBCUT Q4W 12/14/21 03/01/22 01/31/22 History mL(10%)-gly-IgA ov50 mcg/mL subcutaneous soln benztropine 1 mg tablet 1 mg PO BID 01/22/22 03/01/22 03/01/22 History cholecalciferol (vitamin D3) 1,250 1,250 mcg PO QWEEK 01/22/22 03/01/22 02/27/22 History mcg (50,000 unit) capsule insulin degludec 200 unit/mL (3 20 unit SUBCUT BEDTIME PRN 01/22/22 03/01/22 Unknown History mL) subcutaneous pen (Tresiba FlexTouch U-200 insulin) quetiapine 400 mg tablet 500 mg PO BEDTIME tab 02/14/22 03/01/22 02/28/22 History chlorhexidine gluconate 03/01/22 Unknown History chlorhexidine gluconate 0.12 % 15 ml BUCCAL BID 03/01/22 03/01/22 Unknown History mouthwash omega-3 fatty acids 2,000 mg PO BID 03/01/22 03/01/22 Unknown History polyethylene glycol 3350 17 gram 17 g PO DAILY PRN 03/01/22 03/01/22 Unknown H istory oral powder packet Physical Exam Vital Signs: Vital Signs: Last Vital Signs Temp 98.0 F 03/05/22 19:11 Pulse 94 03/05/22 19:11 Resp 18 03/05/22 19:11 BP 149/90 H 03/05/22 19:11 Pulse Ox 96 03/05/22 19:11 BMI result Body Mass Index 36.9 Const: General: cooperative HEENT: Head: Yes normal to inspection Mouth: Normal oral and palatal mucosa present Resp: Effort & Inspection: normal respiratory effort Cardio: Rate: regular rate Rhythm: regular rhythm GI: Palpation (GI): Soft to palpation and nontender Skin: General skin exam: no rashes or lesions noted Results Labs CBC & Chem 7: 03/07/22 05:51 03/07/22 05:51 Microbiology Microbiology Results: Microbiology 03/01/22 21:02 Urine clean catch - Clean Catch Midstream Urine Culture - Final Enterococcus faecium Lactobacillus species 03/01/22 20:19 Blood - Venous Blood Culture - Preliminary No growth after 48 hours. 03/01/22 20:19 Blood - Venous Blood Culture - Preliminary No growth after 48 hours. Assessment and Plan (1) Toxic metabolic encephalopathy: Status: Resolved She is feeling better. 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
[2022-03-05 23:56] VITALS: BP 114/70; PULSE 79; RESP 17; TEMP 36.6; O2SAT 95
[2022-03-06 04:00] VITALS: BP 121/79; PULSE 80; RESP 17; TEMP 36.8; O2SAT 95
[2022-03-06] MEDS: Piperacillin Sodium/Tazobactam 3.375 GM in 0.9 % Sodium Chloride 50 ML IV ×2 (05:29→11:54)
[2022-03-06] MEDS: Levothyroxine Sodium 75 MCG TABLET PO (05:30)
[2022-03-06] MEDS: Omeprazole 20 MG CAPSULE.DR PO (05:30)
[2022-03-06 07:18] VITALS: BP 116/77; PULSE 78; RESP 18; TEMP 36.3; O2SAT 96
[2022-03-06 07:29] LABS: Glucose, Whole Blood 114 mg/dL (60-115)
[2022-03-06] MEDS: polyethylene glycoL 3350 17 GM POWD.PACK PO (09:14)
[2022-03-06] MEDS: 0.9 % Sodium Chloride Flush 3 ML SYRINGE IVFLUSH ×3 (09:14→21:47)
[2022-03-06] MEDS: Chlorhexidine Gluc Oral Rinse 15 ML MOUTHWASH BUCCAL (09:16)
[2022-03-06] MEDS: Tamsulosin HCL 0.4 MG CAPSULE PO (09:17)
[2022-03-06] MEDS: buPROPion HCL 100 MG TABLET 50 MG PO (09:17)
[2022-03-06] MEDS: Pregabalin 150 MG CAPSULE 300 MG PO ×2 (09:17→21:46)
[2022-03-06] MEDS: Magnesium Oxide 400 MG TABLET PO (09:18)
[2022-03-06] MEDS: Thiamine HCL 100 MG TABLET PO (09:18)
[2022-03-06] MEDS: Ferrous Sulfate 324 MG TABLET.DR PO ×2 (09:18→21:47)
[2022-03-06] MEDS: OXcarbazepine 300 MG TABLET PO ×2 (09:18→21:46)
[2022-03-06] MEDS: Benztropine Mesylate 1 MG TABLET PO ×2 (09:19→21:46)
[2022-03-06] MEDS: Multivitamin TABLET 1 TAB PO (09:19)
[2022-03-06 11:21] VITALS: BP 113/63; PULSE 91; RESP 18; TEMP 36.7; O2SAT 97
[2022-03-06 11:26] LABS: Glucose, Whole Blood 108 mg/dL (60-115)
[2022-03-06] MEDS: Heparin Sodium,Porcine 5,000 UNIT/ML VIAL 5000 UNIT SUBCUT ×2 (11:54→21:46)
--- NOTE | 2022-03-06 12:00 | P.PNIM_ITS ---
Subjective Subjective Date of Service: 03/06/22 Interval History: uti/sepsis Review of Systems Urinary symptoms improved, no pain or frequency. Denies any chest pain or abdominal pain or nausea vomiting or cough or phlegm. Physical Exam Vital Signs: Vital Signs: Last Vital Signs Temp 98.0 F 03/06/22 11:21 Pulse 91 03/06/22 11:21 Resp 18 03/06/22 11:21 BP 113/63 03/06/22 11:21 Pulse Ox 97 03/06/22 11:21 BMI result Body Mass Index 36.9 Appearance: aox3 , ch ill appearing patient.? Eyes: Pupils equal, round and reactive to light.? Sclera nonicteric.? ENT: Pharynx normal.? Moist mucous membranes. cvs: rrr, [id number]. res: clear to auscultation ,no rhonchii or wheezing abd: no rebound or guarding ,nt, bs present. ext pulses present , no cyanosis neuro: moves all ext,follows simple commands Objective Data Active Medications Acetaminophen (Acetaminophen 325 Mg Tablet) 650 mg PO Q6H PRN PRN Reason: Pain, Mild (Pain Scale 1-3) Last Admin: 03/02/22 11:20 Dose: 650 mg Documented by: NELLY Albuterol Sulfate (Albuterol Sulfate 90 Mcg 8 Gm Inhaler) 1 puff INHALE QID PRN PRN Reason: shortness of breath or wheezing Benztropine Mesylate (Benztropine Mesylate 1 Mg Tablet) 1 mg PO BID [facility] Last Admin: 03/06/22 09:19 Dose: 1 mg Documented by: CESAR Bupropion HCl (Bupropion Hcl 100 Mg Tablet) 50 mg PO BID [facility] Last Admin: 03/06/22 09:17 Dose: 50 mg Documented by: CESAR Chlorhexidine Gluconate (Chlorhexidine Gluc Oral Rinse 15 Ml Mouthwash) 15 ml BUCCAL BID [facility] Last Admin: 03/06/22 09:16 Dose: 15 ml Documented by: CESAR Dextrose (Dextrose 50 % 25 Gm/50 Ml Syringe) 25 gm IVPUSH Q15M PRN; Protocol PRN Reason: per Hypoglycemia Standing Ord. Docusate Sodium (Docusate Sodium 100 Mg Capsule) 100 mg PO DAILY PRN PRN Reason: Constipation Ferrous Sulfate (Ferrous Sulfate 324 Mg Tablet.) 324 mg PO BID [facility] Last Admin: 03/06/22 09:18 Dose: 324 mg Documented by: CESAR Glucose (Glucose Gel 15 Gm Gel..Gram.) 15 gm PO Q15M PRN; Protocol PRN Reason: per Hypoglycemia Standing Ord. Heparin Sodium (Porcine) (Heparin Sodium,Porcine 5,000 Unit/Ml Vial) 5,000 unit SUBCUT Q12H [facility] Last Admin: 03/06/22 11:54 Dose: 5,000 unit Documented by: CESAR Piperacillin Sod/Tazobactam (Sod 3.375 gm/ Sodium Chloride) 50 mls @ 100 mls/hr IV Q6H [facility] Last Admin: 03/06/22 11:54 Dose: 100 mls/hr Documented by: CESAR Insulin Glargine (Insulin Glargine,Hum.Rec.Anlog 100 Unit/Ml 10 Ml Vial) 16 unit SUBCUT BEDTIME PRN PRN Reason: WHEN SUGARS >150 Insulin Human Lispro (Insulin Lispro 100 Unit/Ml 3 Ml Vial) 0 unit SUBCUT QID ACHS [facility]; Protocol Last Admin: 03/06/22 11:57 Dose: Not Given Documented by: CESAR Non-Admin Reason: No Insulin Coverage Levothyroxine Sodium (Levothyroxine Sodium 75 Mcg Tablet) 75 mcg PO DAILY@0600 [facility] Last Admin: 03/06/22 05:30 Dose: 75 mcg Documented by: ADONIS Magnesium Oxide (Magnesium Oxide 400 Mg Tablet) 400 mg PO DAILY [facility] Last Admin: 03/06/22 09:18 Dose: 400 mg Documented by: CESAR Melatonin (Melatonin 3 Mg Tablet) 6 mg PO BEDTIME [facility] Last Admin: 03/05/22 20:20 Dose: 6 mg Documented by: ADONIS Multivitamins/Vitamin C (Multivitamin Tablet) 1 tab PO DAILY [facility] Last Admin: 03/06/22 09:19 Dose: 1 tab Documented by: CESAR Omeprazole (Omeprazole 20 Mg Capsule.) 20 mg PO DAILY@0630 [facility] Last Admin: 03/06/22 05:30 Dose: 20 mg Documented by: ADONIS Ondansetron HCl (Ondansetron Hcl 4 Mg/2 Ml Vial) 4 mg IVPUSH Q8H PRN PRN Reason: Nausea and Vomiting Last Admin: 03/05/22 08:56 Dose: 4 mg Documented by: CESAR Oxcarbazepine (Oxcarbazepine 300 Mg Tablet) 300 mg PO BID [facility] Last Admin: 03/06/22 09:18 Dose: 300 mg Documented by: CESAR Pharmacy Consult (Consult Rx Perform Med Rec) 1 each MISCELLANE ONCE PRN PRN Reason: Consult order Polyethylene Glycol (Polyethylene Glycol 3350 17 Gm Powd.Pack) 17 gm PO BID [facility] Last Admin: 03/06/22 09:14 Dose: 17 gm Documented by: CESAR Pravastatin Sodium (Pravastatin Sodium 20 Mg Tablet) 20 mg PO BEDTIME [facility] Last Admin: 03/05/22 20:23 Dose: 20 mg Documented by: ADONIS Pregabalin (Pregabalin 150 Mg Capsule) 300 mg PO BID [facility] Last Admin: 03/06/22 09:17 Dose: 300 mg Documented by: CESAR Quetiapine Fumarate (Quetiapine Fumarate 100 Mg Tablet) 500 mg PO BEDTIME [facility] Last Admin: 03/05/22 20:23 Dose: 500 mg Documented by: ADONIS Sodium Chloride (0.9 % Sodium Chloride Flush 3 Ml Syringe) 3 ml IVFLUSH QSHIFT [facility] Last Admin: 03/06/22 09:14 Dose: 3 ml Documented by: CESAR Tamsulosin HCl (Tamsulosin Hcl 0.4 Mg Capsule) 0.4 mg PO DAILY [facility] Last Admin: 03/06/22 09:17 Dose: 0.4 mg Documented by: CESAR Thiamine HCl (Thiamine Hcl 100 Mg Tablet) 100 mg PO DAILY [facility] Last Admin: 03/06/22 09:18 Dose: 100 mg Documented by: CESAR Trazodone HCl (Trazodone Hcl 100 Mg Tablet) 100 mg PO BEDTIME [facility] Last Admin: 03/05/22 20:42 Dose: 100 mg Documented by: ADONIS Labs CBC & Chem 7: 03/02/22 05:48 03/03/22 05:53 Labs: Laboratory Results - last 24 hr 03/05/22 03/05/22 03/06/22 15:32 19:16 07:16 POC Glucose 104 157 H 114 03/06/22 11:19 POC Glucose 108 Assessment and Plan (1) Recurrent UTI: Status: Acute (2) DM2 (diabetes mellitus, type 2): Status: Acute Plan 32-year-old female with past medical history as mentioned above presents to the hospital with sepsis secondary to UTI 1.?sepsis and Toxic metabolic encephalopathy:(?similar to yesterday) Secondary to UTI seems improved Mild elevated LFT probably related to above. - secondary to UTI - UA positive, leukocytosistrending down , tachycardia-improved, afebrile urine culture -enterococcus faecium - treated with Zosyn based on recent cultures from January, blood cultures neg@48 hrs Id - recommended to add psych evaluation since patient options are to start Zyvox and patient on multiple psych medications.d/w psych -start zyvox then well butrin and trazodone need to be DC'ed until the zyvox therapy is done and the zyvox is largely out of her system. as per psych there should be little effect on her mental health in the near term in DCing above medications. 2.acute urinary retention - secondary to UTI - Emmanuel catheter in place - IV antibiotics dc emmanuel,give voiding trial , add flomax urology eval-recomeded self catheterisation Hypogammaglobinemia - patient receives IVIG q.4 weeks, will add her dose since she did not get this month. diabetes - hold metformin - start low-dose sliding scale insulin - diabetic diet ?hypothyroidism - continue levothyroxine DVT prophylaxis:? Heparin subQ Need for inpatient:? UTI Enterococcus-plan to add Zyvox but patient is on multiple psych medication-may need to monitor on Zyvox for a day if his psych recommend to start. Quality Stroke Does the patient have a stroke diagnosis?: No VTE Prior VTE?: No VTE Risk Level:: Medical - moderate - high VTE Device Contraindication: Treatment Not Indicated VTE Drug Contraindication: N/A - Med Ordered
--- NOTE | 2022-03-06 13:30 | P.CNPS_ITS ---
History of Present Illness Date of Service: 03/06/22 Chief Complaint: Sepsis, Uti Reason for Consult: recommendations re psychiatric medications HPI Narrative: per 03/06 medicine progress note: 32-year-old female with past medical history as mentioned above presents to the hospital with sepsis secondary to UTI 1.?sepsis and Toxic metabolic encephalopathy:(?similar to yesterday) Secondary to UTI seems improved Mild elevated LFT probably related to above. - secondary to UTI - UA positive, leukocytosistrending down , tachycardia-improved, afebrile urine culture -enterococcus faecium - treated with Zosyn based on recent cultures from January, blood cultures neg@48 hrs Id - recommended to add psych evaluation since patient options are to start Zyvox and patient on multiple psych medications.d/w psych -start?zyvox then wellbutrin and trazodone need to be DC'ed until the zyvox therapy is done and the zyvox is largely out of her system. as per psych there should be little effect on her mental health in the near term in DCing above? medications. 2.acute urinary retention - secondary to UTI - Emmanuel catheter in place - IV antibiotics dc emmanuel,give voiding trial , add flomax urology eval-recomeded self catheterisation Hypogammaglobinemia - patient receives IVIG q.4 weeks, will add her dose since she did not get this month. diabetes - hold metformin - start low-dose sliding scale insulin - diabetic diet ?hypothyroidism - continue levothyroxine DVT prophylaxis:? Heparin subQ Need for inpatient:? UTI Enterococcus-plan to add Zyvox but patient is on multiple psych medication-may need to monitor on Zyvox for a day if his psych recommend to start. chart reviewed, pt seen, case discussed with Dr. Rivas, medications interactions investigated. in short, pt reports she is at her usual baseline state of mental health, somewhat anxious to get home but otherwise in good spirits and without SI/HI/AVH. medication changes explained to and discussed with pt and her mother. they are in agreement with changes. pt will stop wellbutrin and trazodone during the period of her therapy with zyox. she will restart wellbutrin and trazodone at least 24H after finishing her course of zyvox. recommendations communicated to Dr. Rivas. Past Psychiatric History: Patient has outpatient psychiatrist, Dr. Daina Daley. Longstanding history bipolar disorder. Per chart review, patient had reported history of AH and paranoia. Medical Evaluation Reviewed: Yes [facility] Medical History Acquired hypothyroidism Anemia ARDS (adult respiratory distress syndrome) Bipolar disorder Depot contraception Diabetes mellitus with hyperglycemia DM2 (diabetes mellitus, type 2) Esophagitis with gastritis Essential hypertension Gastric paresis Hyperlipidemia Hypogammaglobulinemia Muscle weakness Obesity due to excess calories Obesity, morbid, BMI 40.0-49.9 Peripheral neuropathy Pneumonia due to 2019 novel coronavirus Recurrent UTI Tremor of unknown origin Vitamin D deficiency Yeast infection involving the vagina and surrounding area Surgical History Hx of section Hx of tooth extraction Family History: unknown (adopted) Social History: Requires 04/06 care, lives with parents. Has 2 young sons that also live with her and her parents. Trauma History: unknown Diagnostics Vital Signs (24Hr): Vital Signs - 24 hr 03/05/22 15:29 03/05/22 19:11 03/05/22 23:56 Temperature 98.7 F 98.0 F 97.9 F Pulse Rate 84 94 79 Respiratory Rate 18 18 17 Blood Pressure 124/90 H 149/90 H 114/70 Pulse Oximetry 99 96 95 03/06/22 04:00 03/06/22 07:18 03/06/22 11:21 Temperature 98.3 F 97.3 F 98.0 F Pulse Rate 80 78 91 Respiratory Rate 17 18 18 Blood Pressure 121/79 116/77 113/63 Pulse Oximetry 95 96 97 BMI result Body Mass Index 36.9 Labs Results: 03/02/22 05:48 03/03/22 05:53 Labs: Laboratory Results - last 48 hr 03/04/22 03/04/22 03/05/22 15:27 19:37 06:52 POC Glucose 236 H 142 H 102 03/05/22 03/05/22 03/05/22 10:52 15:32 19:16 POC Glucose 161 H 104 157 H 03/06/22 03/06/22 07:16 11:19 POC Glucose 114 108 Imaging Radiology Impressions: ITS Impressions Chest X-Ray 03/01/22 19:41 IMPRESSION: No acute intrathoracic disease Mental Status Exam Mental Status Exam Narrative: lying in hospital bed. appropriately dressed in hospital [facility]. cooperative with care, no PMA/PMR. speech soft, normal in rate, amount, loudness, tone, latency. thoughts linear and logical. affect constricted, normo-intense, non- labile. mood anxious, denies SI/HI/AVH. Medications Medications Current Medications Acetaminophen (Acetaminophen 325 Mg Tablet) 650 mg PO Q6H PRN PRN Reason: Pain, Mild (Pain Scale 1-3) Last Admin: 03/02/22 11:20 Dose: 650 mg Documented by: Albuterol Sulfate (Albuterol Sulfate 90 Mcg 8 Gm Inhaler) 1 puff INHALE QID PRN PRN Reason: shortness of breath or wheezing Benztropine Mesylate (Benztropine Mesylate 1 Mg Tablet) 1 mg PO BID [facility] Last Admin: 03/06/22 09:19 Dose: 1 mg Documented by: Chlorhexidine Gluconate (Chlorhexidine Gluc Oral Rinse 15 Ml Mouthwash) 15 ml BUCCAL BID [facility] [place] Last Admin: 03/06/22 09:16 Dose: 15 ml Documented by: Dextrose (Dextrose 50 % 25 Gm/50 Ml Syringe) 25 gm IVPUSH Q15M PRN; Protocol PRN Reason: per Hypoglycemia Standing Ord. Docusate Sodium (Docusate Sodium 100 Mg Capsule) 100 mg PO DAILY PRN PRN Reason: Constipation Ferrous Sulfate (Ferrous Sulfate 324 Mg Tablet.Dr) 324 mg PO BID [facility] [place] Last Admin: 03/06/22 09:18 Dose: 324 mg Documented by: Glucose (Glucose Gel 15 Gm Gel..Gram.) 15 gm PO Q15M PRN; Protocol PRN Reason: per Hypoglycemia Standing Ord. Heparin Sodium (Porcine) (Heparin Sodium,Porcine 5,000 Unit/Ml Vial) 5,000 unit SUBCUT Q12H [facility] [place] Last Admin: 03/06/22 11:54 Dose: 5,000 unit Documented by: Insulin Glargine (Insulin Glargine,Hum.Rec.Anlog 100 Unit/Ml 10 Ml Vial) 16 unit SUBCUT BEDTIME PRN PRN Reason: WHEN SUGARS >150 Insulin Human Lispro (Insulin Lispro 100 Unit/Ml 3 Ml Vial) 0 unit SUBCUT QIDACHS [facility]; Protocol Last Admin: 03/06/22 11:57 Dose: Not Given Documented by: Levothyroxine Sodium (Levothyroxine Sodium 75 Mcg Tablet) 75 mcg PO DAILY@0600 [facility] [place] Last Admin: 03/06/22 05:30 Dose: 75 mcg Documented by: Linezolid (Linezolid 600 Mg Tablet) 600 mg PO Q12H [facility] [place] Magnesium Oxide (Magnesium Oxide 400 Mg Tablet) 400 mg PO DAILY [facility] Last Admin: 03/06/22 09:18 Dose: 400 mg Documented by: Melatonin (Melatonin 3 Mg Tablet) 6 mg PO BEDTIME [facility] [place] Last Admin: 03/05/22 20:20 Dose: 6 mg Documented by: Multivitamins/Vitamin C (Multivitamin Tablet) 1 tab PO DAILY [facility] [place] Last Admin: 03/06/22 09:19 Dose: 1 tab Documented by: Omeprazole (Omeprazole 20 Mg Capsule.Dr) 20 mg PO DAILY@0630 [facility] [place] Last Admin: 03/06/22 05:30 Dose: 20 mg Documented by: Ondansetron HCl (Ondansetron Hcl 4 Mg/2 Ml Vial) 4 mg IVPUSH Q8H PRN PRN Reason: Nausea and Vomiting Last Admin: 03/05/22 08:56 Dose: 4 mg Documented by: Oxcarbazepine (Oxcarbazepine 300 Mg Tablet) 300 mg PO BID [facility] [place] Last Admin: 03/06/22 09:18 Dose: 300 mg Documented by: Pharmacy Consult (Consult Rx Perform Med Rec) 1 each MISCELLANE ONCE PRN PRN Reason: Consult order Polyethylene Glycol (Polyethylene Glycol 3350 17 Gm Powd.Pack) 17 gm PO BID [facility] [place] Last Admin: 03/06/22 09:14 Dose: 17 gm Documented by: Pravastatin Sodium (Pravastatin Sodium 20 Mg Tablet) 20 mg PO BEDTIME [facility] [place] Last Admin: 03/05/22 20:23 Dose: 20 mg Documented by: Pregabalin (Pregabalin 150 Mg Capsule) 300 mg PO BID [facility] [place] Last Admin: 03/06/22 09:17 Dose: 300 mg Documented by: Quetiapine Fumarate (Quetiapine Fumarate 100 Mg Tablet) 500 mg PO BEDTIME [facility] [place] Last Admin: 03/05/22 20:23 Dose: 500 mg Documented by: Sodium Chloride (0.9 % Sodium Chloride Flush 3 Ml Syringe) 3 ml IVFLUSH QSHIFT [facility] [place] Last Admin: 03/06/22 09:14 Dose: 3 ml Documented by: Tamsulosin HCl (Tamsulosin Hcl 0.4 Mg Capsule) 0.4 mg PO DAILY [facility] [place] Last Admin: 03/06/22 09:17 Dose: 0.4 mg Documented by: Thiamine HCl (Thiamine Hcl 100 Mg Tablet) 100 mg PO DAILY [facility] [place] Last Admin: 03/06/22 09:18 Dose: 100 mg Documented by: Allergies Allergies Allergy/AdvReac Type Severity Reaction Status Date / Time latex Allergy Unknown rash Verified 02/14/22 13:28 metoclopramide [From REGLAN] AdvReac Unknown INTERACTS Verified 02/14/22 13:28 W/ SEROQUEL Assessment & Plan Assessment & Plan (1) Bipolar disorder: Status: Acute Code(s): F31.9 - Bipolar disorder, unspecified Assessment and Plan: zyvox is an MAOI and complicates psychiatric medications treatment, specifically with serotonergic medications. on review of medication interactions, it is re commended that during therapy with zyvox, neither wellbutrin nor trazodone should be prescribed. care should be taken to watch out for hypertensive reaction or serotonin syndrome during the transitions between these medications. wellbutrin and trazodone may be restarted 24H after the course of zyvox is completed. Plan recommend immediate cessation of wellbutrin and trazodone in preparation for zyvox start. be vigilant for hypertensive crisis or serotonin syndrome (hypertonia, hyperthermia, agitation, diaphoresis, etc). trazodone and wellbutrin may be restarted 24H after the final zyvox dose. patient and family should be educated re the signs and symptoms of serotonin syndrome so they will be able to recognize it and seek help should it occur. I spent __55____ minutes with the patient and/or on the patient floor today, greater than?50% of which was spent counseling/coordinating care. Patient educated on: medication risk/benefits
[2022-03-06] MEDS: Linezolid 600 MG TABLET PO (14:52)
[2022-03-06 15:27] VITALS: BP 121/84; PULSE 88; RESP 14; TEMP 37; O2SAT 96
--- NOTE | 2022-03-06 15:28 | MHC.CM.PN ---
PATIENT STARTED ON PO ZYVOX. PLAN IS TO MONITOR FOR A DAY (OR 2) AND PLAN FOR DC HOME.
[2022-03-06 16:02] LABS: Glucose, Whole Blood 103 mg/dL (60-115)
[2022-03-06 19:43] VITALS: BP 140/74; PULSE 96; RESP 15; TEMP 36.6; O2SAT 97
[2022-03-06 20:54] LABS: Glucose, Whole Blood 109 mg/dL (60-115)
[2022-03-06] MEDS: Pravastatin Sodium 20 MG TABLET PO (21:46)
[2022-03-06] MEDS: Melatonin 3 MG TABLET 6 MG PO (21:46)
[2022-03-06] MEDS: QUEtiapine Fumarate 100 MG TABLET 500 MG PO (21:58)
[2022-03-06 23:53] VITALS: BP 119/73; PULSE 89; RESP 14; TEMP 36.4; O2SAT 93
[2022-03-07 04:00] VITALS: BP 108/68; PULSE 88; RESP 14; TEMP 36.4; O2SAT 98
[2022-03-07 06:21] LABS: Hematocrit 39.1 % (37.0-47.0); Hemoglobin 12.9 g/dl (12.0-16.0); Mean Corpuscular Hemoglobin 29.1 pg (27.0-33.0); Mean Corpuscular Volume 88.1 fL (80.0-98.0); Platelet Count 253 X10*3/uL (160-400); Red Blood Count 4.44 X10*6/uL (4.20-5.50); Red Cell Distribution Width 13.6 % (11.0-16.0); White Blood Count 4.5 X10*3/uL (4.8-10.8)
[2022-03-07 06:43] LABS: Anion Gap 12 (12-20); Blood Urea Nitrogen 14 mg/dL (9-16); Calcium 9.4 mg/dL (8.4-10.2); Carbon Dioxide 21 mmol/L (22-29); Chloride 108 mmol/L (96-108); Creatinine Clr Calc Pharmacy 109.4; Estimated Glomerular Filt Rate > 60; Glucose Random 112 mg/dL (60-115); Potassium 3.5 mmol/L (3.3-5.1); Sodium 137 mmol/L (135-145)
[2022-03-07] MEDS: Omeprazole 20 MG CAPSULE.DR PO (06:47)
[2022-03-07] MEDS: Levothyroxine Sodium 75 MCG TABLET PO (06:47)
[2022-03-07 07:29] VITALS: BP 131/83; PULSE 85; RESP 18; TEMP 36.2; O2SAT 97
[2022-03-07 07:42] LABS: Glucose, Whole Blood 112 mg/dL (60-115)
[2022-03-07] MEDS: Pregabalin 150 MG CAPSULE 300 MG PO (08:52)
[2022-03-07] MEDS: Tamsulosin HCL 0.4 MG CAPSULE PO (08:52)
[2022-03-07] MEDS: 0.9 % Sodium Chloride Flush 3 ML SYRINGE IVFLUSH (08:52)
[2022-03-07] MEDS: Thiamine HCL 100 MG TABLET PO (08:52)
[2022-03-07] MEDS: Ferrous Sulfate 324 MG TABLET.DR PO (08:53)
[2022-03-07] MEDS: Benztropine Mesylate 1 MG TABLET PO (08:53)
[2022-03-07] MEDS: Magnesium Oxide 400 MG TABLET PO (08:53)
[2022-03-07] MEDS: Multivitamin TABLET 1 TAB PO (08:53)
[2022-03-07] MEDS: OXcarbazepine 300 MG TABLET PO (08:53)
--- NOTE | 2022-03-07 10:10 | P.DS_ITS ---
DS: Providers Provider Date of Service: 03/07/22 Date of admission: 03/01/22 22:45 Primary care physician: Lachelle Guerra MD Consults: 03/03/22 12:32 Consult to Urology Routine Consulting Provider: Chaitanya Cifuentes Reason for consultation: urinary retention Has provider been notified: No 03/04/22 07:46 Consult to Infectious Diseases Routine Consulting Provider: Doreen Torres Reason for consultation: sepsis/uti Has provider been notified: No 03/06/22 09:08 Consult to Psychiatry Routine Consulting Provider: Psych Covering Reason for consultation: need zyvox for uti/on muliple psych med interaction,anxiety Has provider been notified: No DS: Diagnosis Discharge Diagnosis (1) Bipolar disorder: Status: Acute DS: Summary Hospital Course Hospital Course: Chief Complaint: increased ocnfusion, This is a 32 year old unfortunate female with past medical history of diabetes, hypertension, hyperlipidemia, hypogammaglobinemia, autoimmune IgA deficiency, peripheral neuropathy, ARDS secondary to COVID infection, 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 According to the patient and her father at bedside, patient was not feeling well on Sunday, she felt like a urinary tract infection was coming on, due to her neuropathy she does not have significant sensation and does not have burning, or dysuria but just does not feel well.? PCP was called on Sunday night, she was prescribed Bactrim, started using the 1st dose on Sunday, but by Sunday morning she had significant decline in cognition, she became more confused, febrile, and generally more L and therefore her father brought her to the hospital.? She has had multiple admissions to the hospital for the same reason in the past.? Father also reports that patient has significant decrease in urine output. On arrival to the ED patient was found to be retaining urine of 900 in the bladder. Her vitals were found to be significant for fever of 101.2, heart rate of 137, blood pressure of 98/56 Patient received about 4 L of fluid with improvement in her blood pressure, Labs are also found to be significant for WBC count of 17.2, lactic acid of 3.9, UA positive for leukocyte Estrace as well as WBC Chest x-ray negative, COVID and influenza negative Patient started on IV antibiotics based on recent cultures and will be admitted for further management Hospital course: # Patient was admitted to the hospital due to acute metabolic encephalopathy related to urinary tract infection her urine culture is showing Enterococcus. She has been on IV antibiotics upon evaluation by Infectious Disease those recommendation to change the antibiotic to Zyvox unfortunately a has a significant interaction with SSRIs she was evaluated by Psychiatry and recommend that she stays off Welbutrin and trazodone lease after 24 hours after he she completed the course of the antibiotics. She has been started on a Zyvox in the hospital by Infectious Disease and will be discharged with oral Zyvox to complete a 7 day course. As for toxic metabolic encephalopathy her mental status has returned to baseline she is fully alert and oriented to self place and time. #cute urinary retention, was seen by Uro and recommended Flomax and self catherization if needed. #Hypogammaglobinemia - patient receives IVIG q.4 weeks, will add her dose since she did not get this month. #diabetes--resume metformin upon discharge #?hypothyroidism - continue levothyroxine Final diagnosis: Acute toxic metabolic encephalopathy Acute urinary tract infection due to Enterococcus Acute urinary retention Diabetes Hypogammaglobinemia Time Spent with Patient Time attestation: Total time spent providing and/or coordinating discharge services: Discharge coordination time: Greater than 30 minutes Quality: Safe Use of Opioids Does Pt have an Active Cancer Diagnosis on the Problem List?: No Quality: Stroke Does the patient have a stroke diagnosis?: No Physical Exam Vital Signs: Vital Signs: Last Vital Signs Temp 97.2 F 03/07/22 07:29 Pulse 85 03/07/22 07:29 Resp 18 03/07/22 07:29 BP 131/83 03/07/22 07:29 Pulse Ox 97 03/07/22 07:29 BMI result Body Mass Index 36.9 Const: Other: General: AO X 3, no acute distress Resp: CTA bilateral CVS: S1,S2,RRR GI: +BS, NT, no distention Skin: No rash Neuro: motor grossly intact Psych: appropriate affect DS: Data Data Completed and Pending Completed studies during hospitalization [Text1]: Procedures Drainage of Spinal Canal, Percutaneous Approach, Diagnostic (11/29/21) Extirpation of Matter from Left Main Bronchus, Via Natural or Artificial Opening Endoscopic (11/29/21) Extirpation of Matter from Right Main Bronchus, Via Natural or Artificial Opening Endoscopic (11/29/21) Insertion of Endotracheal Airway into Trachea, Via Natural or Artificial Opening Endoscopic (11/29/21) Insertion of Infusion Device into Superior Vena Cava, Percutaneous Approach (11/29/21) Introduction of Tocilizumab into Peripheral Vein, Percutaneous Approach, [employer] (11/29/21) Introduction of Vasopressor into Peripheral Vein, Percutaneous Approach (11/29/21) Respiratory Ventilation, Greater than 96 Consecutive Hours (11/29/21) Labs on day of discharge: Laboratory Results - last 24 hr 03/06/22 03/06/22 03/06/22 11:19 15:58 20:49 WBC RBC Hgb Hct MCV MCH MCHC RDW Plt Count MPV Absolute Nucleated RBC Nucleated RBC % (auto) Sodium Potassium Chloride Carbon Dioxide Anion Gap BUN Creatinine Estim Creat Clear Calc Estimated GFR POC Glucose 108 103 109 Random Glucose Calcium 03/07/22 03/07/22 03/07/22 05:51 05:51 07:28 WBC 4.5 L RBC 4.44 Hgb 12.9 Hct 39.1 MCV 88.1 MCH 29.1 MCHC 33.0 RDW 13.6 Plt Count 253 MPV 10.0 Absolute Nucleated RBC 0.000 Nucleated RBC % (auto) 0.0 Sodium 137 Potassium 3.5 Chloride 108 Carbon Dioxide 21 L Anion Gap 12 BUN 14 Creatinine 0.77 Estim Creat Clear Calc 109.4 Estimated GFR > 60 POC Glucose 112 Random Glucose 112 Calcium 9.4 D Discharge Plan Discharge Patient Disposition: Home, Self-Care Discharge Diagnosis: sepsis /uti Referrals: Lachelle Guerra MD [Primary Care Provider] - 1 Week Discharge Medications: Continued (DME) blood-glucose meter [FreeStyle Lite Meter] Kit See Rx Instructions .ROUTE .MEDSUPPLY Qty: 1 0RF Rx Instructions: 3 x/day metformin 500 mg tablet 500 mg PO BID Qty: 60 2RF Rx Instructions: Take with meals pravastatin 20 mg tablet 20 mg PO BEDTIME Qty: 30 5RF levothyroxine [Euthyrox] 75 mcg tablet 75 mcg PO QAM Qty: 30 4RF medroxyprogesterone 150 mg/mL suspension 150 mg IM Q12W Qty: 1 2RF (DME) pen needle, diabetic [BD Wendy 2nd Gen Pen Needle] 32 gauge x 5/32 needle See Rx Instructions .ROUTE .MEDSUPPLY Qty: 50 3RF Rx Instructions: As directed daily pantoprazole 40 mg tablet,delayed release (DR/EC) 40 mg PO DAILY Qty: 30 3RF thiamine HCl (vitamin B1) 100 mg tablet 100 mg PO DAILY Qty: 30 0RF ferrous sulfate 325 mg (65 mg iron) tablet 325 mg PO BID Qty: 180 3RF magnesium oxide 400 mg (241.3 mg magnesium) tablet 400 mg PO DAILY Qty: 30 0RF sulfamethoxazole-trimethoprim [Bactrim DS] 800-160 mg tablet 1 tab PO Q12H 10 Days Qty: 20 0RF benztropine 1 mg tablet 1 mg PO BID 0RF cholecalciferol (vitamin D3) 1,250 mcg (50,000 unit) capsule 1,250 mcg PO QWEEK 0RF Tresiba FlexTouch U-200 200 unit/mL (3 mL) insulin pen 20 unit subcut BEDTIME PRN (Reason: WHEN SUGARS >150) 0RF immun glob G(IgG)-gly-IgA ov50 10 gram/100 mL (10 %) Solution 500 ml SUBCUT Q4W 0RF Rx Instructions: DUE THIS WEEK / FOR 500ML AND 4/20 FOR 450ML immun glob G(IgG)-gly-IgA ov50 10 gram/100 mL (10 %) Solution 450 ml SUBCUT Q4W 0RF Rx Instructions: DUE THIS WEEK / FOR 500ML AND 4/20 FOR 450ML quetiapine 400 mg tablet 500 mg PO BEDTIME 0RF Hold Instructions: Pending MD recommendations Rx Instructions: TAKES 1 400MG AND 1/2 OF 200MG TAB = TOTAL OF 500 polyethylene glycol 3350 17 gram powder in packet 17 g PO DAILY PRN (Reason: Constipation) 0RF chlorhexidine gluconate 0.12 % Mouthwash 15 ml BUCCAL BID 0RF chlorhexidine gluconate 0RF [place] 3 Fish Oil Concentrate Capsule 2,000 mg PO BID 0RF sulfamethoxazole-trimethoprim [Bactrim DS] 800-160 mg Tablet 1 tab PO BID 0RF pregabalin 300 mg capsule 300 mg PO BID 0RF Hold Instructions: Pending MD recommendations melatonin 3 mg tablet 6 mg PO BEDTIME 0RF multivitamin Tablet 1 tab PO DAILY 0RF cranberry 400 mg capsule 450 mg PO DAILY 0RF Rx Instructions: administer with a meal albuterol sulfate 90 mcg/actuation HFA aerosol inhaler 1 inh inhalation QID PRN (Reason: shortness of breath or wheezing) Qty: 6.7 1RF bupropion HCl 100 mg tablet sustained-release 12 hr 100 mg PO QAM 0RF Hold Instructions: Pending MD recommendations trazodone 100 mg tablet 100 mg PO BEDTIME 0RF Hold Instructions: Pending MD recommendations oxcarbazepine 150 mg tablet 300 mg PO BID 0RF Hold Instructions: Pending MD recommendations (DME) FreeStyle Lite Strips Strip See Rx Instructions .ROUTE .MEDSUPPLY Qty: 100 11RF Rx Instructions: three times a day (DME) lancets [FreeStyle Lancets] 28 gauge misc See Rx Instructions .ROUTE .MEDSUPPLY Qty: 100 11RF Rx Instructions: As directed three time a day Diet: advance to usual diet Activity on Discharge: As tolerated Stand Alone Forms: Patient Portal Discharge page Care Plan Goals: full recovery from UTI toxic metabolic encephalopathy. Health Concerns: Recurrent UTI, toxic metabolic encephalopathy. Plan of Treatment: Take Zyvox as recommended and follow up with her primary care doctor in a week. He should not take Wellbutrin all trazodone until after 24 hours after you complete taking the Zyvox Assessment: As above
[2022-03-07 11:28] VITALS: BP 137/88; PULSE 101; RESP 18; TEMP 36.4; O2SAT 97
[2022-03-07 11:43] LABS: Glucose, Whole Blood 135 mg/dL (60-115)
[2022-03-07] MEDS: Linezolid 600 MG TABLET PO (13:19)
== END 2022-03-07 14:42 | disposition home or self-care (01) | DRG 871 ==
LOC: HO.ED 21:42 → HO.EDOVER 22:51 → HO.S3 03-02 00:42
PROVIDERS: Internal Medicine; Admitting Provider Internal Medicine; Emergency Provider Emergency Medicine Emergency Medical Services; PCP Internal Medicine; Visit Provider Internal Medicine
DX: A41.9 Sepsis, unspecified organism (principal); G82.50 Quadriplegia, unspecified; G92.8 Other toxic encephalopathy; N39.0 Urinary tract infection, site not specified; D80.2 Selective deficiency of immunoglobulin A [IgA]; E87.2 Acidosis; E03.9 Hypothyroidism, unspecified; F31.9 Bipolar disorder, unspecified; R33.9 Retention of urine, unspecified; E11.42 Type 2 diabetes mellitus with diabetic polyneuropathy; B95.2 Enterococcus as the cause of diseases classified elsewhere; Z87.891 Personal history of nicotine dependence; Z87.440 Personal history of urinary (tract) infections; Z91.040 Latex allergy status; Z88.8 Allergy status to other drugs, medicaments and biological substances; Z79.84 Long term (current) use of oral hypoglycemic drugs; Z79.890 Hormone replacement therapy; Z79.899 Other long term (current) drug therapy
CPT/HCPCS: 36415; 71045; 80048; 80053; 81001; 81003; 82947; 83605; 83690; 84443; 85025; 85027; 85610; 85730; 87040; 87086; 87088; 87186; 87502; 87635; 96361; 96365; 97116; 97163; 97530; 99285; C1758; J1200; J1569; J2060; J2405; J2543; J2920

== ENCOUNTER 2022-04-17 10:05 | Outpatient (REF) | payer MEDICARE, MEDICAID, SELFPAY | END 2022-04-17 10:06 | disposition home or self-care (01) | LOC: HO.MDS 10:05 | PROVIDERS: Visit Provider Internal Medicine | DX: G61.0 Guillain-Barre syndrome (principal) | CPT/HCPCS: 96365; 96366; 96368; 96375; J1569; J1940; J2920; Q0163 ==

== ENCOUNTER 2022-04-18 09:59 | Outpatient (REF) | payer MEDICARE, MEDICAID, SELFPAY | END 2022-04-18 10:00 | disposition home or self-care (01) | LOC: HO.MDS 09:59 | PROVIDERS: Visit Provider Internal Medicine | DX: G61.0 Guillain-Barre syndrome (principal) | CPT/HCPCS: 96365; 96366; 96368; 96375; J1569; J1940; J2920; Q0163 ==

== ENCOUNTER 2022-04-19 10:01 | Outpatient (REF) | payer MEDICARE, MEDICAID, SELFPAY | END 2022-04-19 10:02 | disposition home or self-care (01) | LOC: HO.MDS 10:01 | PROVIDERS: Visit Provider Internal Medicine | DX: G61.0 Guillain-Barre syndrome (principal) | CPT/HCPCS: 96365; 96366; 96368; 96375; J1569; J1940; J2920; Q0163 ==

== ENCOUNTER 2022-04-20 09:55 | Outpatient (REF) | payer MEDICARE, MEDICAID, SELFPAY | END 2022-04-20 09:56 | disposition home or self-care (01) | LOC: HO.MDS 09:55 | PROVIDERS: Visit Provider Internal Medicine | DX: G61.0 Guillain-Barre syndrome (principal) | CPT/HCPCS: 96365; 96366; 96368; 96375; J1569; J1940; J2920; Q0163 ==

== ENCOUNTER 2022-05-01 10:31 | Outpatient (REF) | payer MEDICARE, MEDICAID, SELFPAY ==
[2022-05-01 11:18] LABS: MANUAL DIFF FLAG NO
[2022-05-01 11:26] LABS: Basophils Percent Auto 0.5 % (0-2); Eosinophils Absolute Auto 0.1 X10*3/uL (0.0-0.4); Eosinophils Percent Auto 2.1 % (0-4); Hematocrit 38.4 % (37.0-47.0); Hemoglobin 12.4 g/dl (12.0-16.0); Imm Gran Abs Auto 0.02 X10*3/uL (0.00-0.03); Imm Gran Pct Auto 0.3 % (0.0-0.4); Lymphocytes Absolute Auto 1.1 X10*3/uL (1.2-4.9); Lymphocytes Percent Auto 18.1 % (20-40); Mean Corpuscular HGB Conc 32.3 g/dl (31.0-35.0); Mean Corpuscular Hemoglobin 27.3 pg (27.0-33.0); Mean Corpuscular Volume 84.6 fL (80.0-98.0); Mean Platelet Volume 10.1 fL (9.4-12.3); Monocytes Absolute Auto 0.3 X10*3/uL (0.1-1.2); Monocytes Percent Auto 5.5 % (2-11); Neutrophils Absolute Auto 4.5 x10*3/uL (2.0-8.3); Neutrophils Percent Auto 73.5 % (45-73); Platelet Count 280 X10*3/uL (160-400); Red Blood Count 4.54 X10*6/uL (4.20-5.50); Red Cell Distribution Width 13.6 % (11.0-16.0); White Blood Count 6.1 X10*3/uL (4.8-10.8)
[2022-05-01 11:44] LABS: Estimated Average Glucose 114 mg/dL; Hemoglobin A1c % 5.6 %
[2022-05-01 12:00] LABS: Anion Gap 12 (12-20); Blood Urea Nitrogen 10 mg/dL (9-16); Calcium 8.9 mg/dL (8.4-10.2); Carbon Dioxide 21 mmol/L (22-29); Chloride 108 mmol/L (96-108); Cholesterol 146 mg/dL; Estimated Glomerular Filt Rate > 60; Glucose Fasting 131 mg/dL (60-99); HDL Cholesterol 39 mg/dL; LDL Cholesterol Calculated 66 mg/dl; Potassium 3.7 mmol/L (3.3-5.1); Sodium 137 mmol/L (135-145); Triglycerides 208 mg/dL
[2022-05-01 12:22] LABS: Free T4 (Free Thyroxine) 0.93 ng/dL (0.71-1.85)
[2022-05-01 12:24] LABS: Thyroid Stimulating Hormone 2.05 uIU/mL (0.32-4.0); Vitamin D 25-OH Total 68.4 ng/mL (>30)
[2022-05-05 06:47] LABS: Alk.Phos Iso. Macrohepatic 0 % (<=0); Alk.Phos Isoenzymes Bone 30 % (28-66); Alk.Phos Isoenzymes Intest 15 % (1-24); Alk.Phos Isoenzymes Liver 55 % (25-69); Alk.Phos Isoenzymes Placental 0 % (<=0); Alk.Phos Isoenzymes Total 122 U/L (31-125)
== END 2022-05-01 10:32 | disposition home or self-care (01) ==
LOC: HO.HMGCLDS 10:31
PROVIDERS: PCP Internal Medicine; Visit Provider Nurse Practitioner Gerontology
DX: D64.9 Anemia, unspecified (principal); E11.69 Type 2 diabetes mellitus with other specified complication; E78.2 Mixed hyperlipidemia; I10 Essential (primary) hypertension; R74.8 Abnormal levels of other serum enzymes; E03.9 Hypothyroidism, unspecified; E55.9 Vitamin D deficiency, unspecified; Z79.4 Long term (current) use of insulin
CPT/HCPCS: 36415; 80048; 80061; 82306; 83036; 84080; 84439; 84443; 85025

== ENCOUNTER 2022-05-16 09:57 | Outpatient (REF) | payer MEDICARE, MEDICAID, SELFPAY | END 2022-05-16 09:58 | disposition home or self-care (01) | LOC: HO.MDS 09:57 | PROVIDERS: Visit Provider Internal Medicine | DX: G61.0 Guillain-Barre syndrome (principal) | CPT/HCPCS: 96365; 96366; 96368; 96375; J1569; J1940; J2920; Q0163 ==

== ENCOUNTER 2022-05-17 10:09 | Outpatient (REF) | payer MEDICARE, MEDICAID, SELFPAY | END 2022-05-17 10:10 | disposition home or self-care (01) | LOC: HO.MDS 10:09 | PROVIDERS: Visit Provider Internal Medicine | DX: G61.0 Guillain-Barre syndrome (principal) | CPT/HCPCS: 96365; 96366; 96368; 96375; J1569; J1940; J2920; Q0163 ==

== ENCOUNTER 2022-05-18 10:01 | Outpatient (REF) | payer MEDICARE, MEDICAID, SELFPAY | END 2022-05-18 10:02 | disposition home or self-care (01) | LOC: HO.MDS 10:01 | PROVIDERS: Visit Provider Internal Medicine | DX: G61.0 Guillain-Barre syndrome (principal) | CPT/HCPCS: 96360; 96365; 96366; 96375; J1569; J1940; J2920; Q0163 ==

== ENCOUNTER 2022-05-19 10:00 | Outpatient (REF) | payer MEDICARE, MEDICAID, SELFPAY | END 2022-05-19 10:01 | disposition home or self-care (01) | LOC: HO.MDS 10:00 | PROVIDERS: Visit Provider Internal Medicine | DX: G61.0 Guillain-Barre syndrome (principal) | CPT/HCPCS: 96365; 96366; 96368; 96375; J1569; J1940; J2920; Q0163 ==

== ENCOUNTER 2022-06-12 10:35 | Outpatient (REF) | payer MEDICARE, MEDICAID, SELFPAY | END 2022-06-12 10:36 | disposition home or self-care (01) | LOC: HO.MDS 10:35 | PROVIDERS: Visit Provider Internal Medicine | DX: G61.0 Guillain-Barre syndrome (principal) | CPT/HCPCS: 96365; 96366; 96368; 96375; J1569; J1940; J2920; Q0163 ==

== ENCOUNTER 2022-06-13 10:10 | Outpatient (REF) | payer MEDICARE, MEDICAID, SELFPAY | END 2022-06-13 10:11 | disposition home or self-care (01) | LOC: HO.MDS 10:10 | PROVIDERS: Visit Provider Internal Medicine | DX: G61.0 Guillain-Barre syndrome (principal) | CPT/HCPCS: 96365; 96366; 96368; 96375; J1569; J1940; J2920; Q0163 ==

== ENCOUNTER 2022-06-14 10:05 | Outpatient (REF) | payer MEDICARE, MEDICAID, SELFPAY | END 2022-06-14 10:06 | disposition home or self-care (01) | LOC: HO.MDS 10:05 | PROVIDERS: Visit Provider Internal Medicine | DX: G61.0 Guillain-Barre syndrome (principal) | CPT/HCPCS: 96365; 96366; 96368; 96375; J1569; J1940; J2920; Q0163 ==

== ENCOUNTER 2022-06-15 10:01 | Outpatient (REF) | payer MEDICARE, MEDICAID, SELFPAY | END 2022-06-15 10:02 | disposition home or self-care (01) | LOC: HO.MDS 10:01 | PROVIDERS: PCP Internal Medicine; Visit Provider Internal Medicine | DX: G61.0 Guillain-Barre syndrome (principal) | CPT/HCPCS: 96365; 96366; 96368; 96375; J1569; J1940; J2920; Q0163 ==

== ENCOUNTER 2022-07-10 10:06 | Outpatient (REF) | payer MEDICARE, MEDICAID, SELFPAY | END 2022-07-10 10:07 | disposition home or self-care (01) | LOC: HO.MDS 10:06 | PROVIDERS: Visit Provider Internal Medicine | DX: G61.0 Guillain-Barre syndrome (principal) | CPT/HCPCS: 96365; 96366; 96368; 96375; J1569; J1940; J2920; Q0163 ==

== ENCOUNTER 2022-07-11 09:35 | Outpatient (REF) | payer MEDICARE, MEDICAID, SELFPAY | END 2022-07-11 09:36 | disposition home or self-care (01) | LOC: HO.MDS 09:35 | PROVIDERS: Visit Provider Internal Medicine | DX: G61.0 Guillain-Barre syndrome (principal) | CPT/HCPCS: 96365; 96366; 96368; 96375; J1569; J1940; J2920; Q0163 ==

== ENCOUNTER 2022-07-12 10:04 | Outpatient (REF) | payer MEDICARE, MEDICAID, SELFPAY | END 2022-07-12 10:05 | disposition home or self-care (01) | LOC: HO.MDS 10:04 | PROVIDERS: Visit Provider Internal Medicine | DX: G61.0 Guillain-Barre syndrome (principal) | CPT/HCPCS: 96365; 96366; 96368; 96375; J1569; J1940; J2920; Q0163 ==

== ENCOUNTER 2022-07-13 10:31 | Outpatient (REF) | payer MEDICARE, MEDICAID, SELFPAY | END 2022-07-13 10:32 | disposition home or self-care (01) | LOC: HO.MDS 10:31 | PROVIDERS: PCP Internal Medicine; Visit Provider Internal Medicine | DX: G61.0 Guillain-Barre syndrome (principal) | CPT/HCPCS: 96365; 96366; 96368; 96375; J1569; J1940; J2920; Q0163 ==

== ENCOUNTER → 2022-08-02 09:58 | Outpatient (BNVA) | payer MEDICARE, MEDICAID, SELFPAY | PROVIDERS: PCP Internal Medicine; Visit Provider Advanced Practice Midwife | DX: Z30.09 Encounter for other general counseling and advice on contraception (principal) | CPT/HCPCS: 99212 ==

== ENCOUNTER 2022-08-07 10:33 | Outpatient (REF) | payer MEDICARE, MEDICAID, SELFPAY | END 2022-08-07 10:34 | disposition home or self-care (01) | LOC: HO.MDS 10:33 | PROVIDERS: Visit Provider Internal Medicine | DX: G61.0 Guillain-Barre syndrome (principal) | CPT/HCPCS: 96365; 96366; 96375; J1569; J1940; J2920; Q0163 ==

== ENCOUNTER 2022-08-08 10:23 | Outpatient (REF) | payer MEDICARE, MEDICAID, SELFPAY | END 2022-08-08 10:24 | disposition home or self-care (01) | LOC: HO.MDS 10:23 | PROVIDERS: Visit Provider Internal Medicine | DX: G61.0 Guillain-Barre syndrome (principal) | CPT/HCPCS: 96365; 96366; 96368; 96375; J1569; J1940; J2920; Q0163 ==

== ENCOUNTER 2022-08-09 10:24 | Outpatient (REF) | payer MEDICARE, MEDICAID, SELFPAY | END 2022-08-09 10:25 | disposition home or self-care (01) | LOC: HO.MDS 10:24 | PROVIDERS: Visit Provider Internal Medicine | DX: G61.0 Guillain-Barre syndrome (principal) | CPT/HCPCS: 96365; 96366; 96368; 96375; J1569; J1940; J2920; Q0163 ==

== ENCOUNTER 2022-08-10 10:26 | Outpatient (REF) | payer MEDICARE, MEDICAID, SELFPAY | END 2022-08-10 10:27 | disposition home or self-care (01) | LOC: HO.MDS 10:26 | PROVIDERS: Visit Provider Internal Medicine | DX: G61.0 Guillain-Barre syndrome (principal) | CPT/HCPCS: 96365; 96366; 96368; 96375; J1569; J1940; J2920; Q0163 ==

== ENCOUNTER 2022-09-01 12:49 | Outpatient (REF) | payer MEDICARE, MEDICAID, SELFPAY ==
[2022-09-01 13:57] LABS: MANUAL DIFF FLAG NO
[2022-09-01 14:07] LABS: Basophils Absolute Auto 0.1 X10*3/uL (0.0-0.2); Basophils Percent Auto 0.9 % (0-2); Eosinophils Absolute Auto 0.3 X10*3/uL (0.0-0.4); Eosinophils Percent Auto 4.5 % (0-4); Hematocrit 43.3 % (37.0-47.0); Hemoglobin 14.3 g/dl (12.0-16.0); Imm Gran Abs Auto 0.02 X10*3/uL (0.00-0.03); Imm Gran Pct Auto 0.3 % (0.0-0.4); Lymphocytes Absolute Auto 1.2 X10*3/uL (1.2-4.9); Mean Corpuscular Hemoglobin 28.3 pg (27.0-33.0); Mean Corpuscular Volume 85.6 fL (80.0-98.0); Mean Platelet Volume 10.2 fL (9.4-12.3); Monocytes Absolute Auto 0.3 X10*3/uL (0.1-1.2); Monocytes Percent Auto 4.1 % (2-11); Neutrophils Percent Auto 73.2 % (45-73); Platelet Count 247 X10*3/uL (160-400); Red Blood Count 5.06 X10*6/uL (4.20-5.50); Red Cell Distribution Width 13.2 % (11.0-16.0); White Blood Count 6.8 X10*3/uL (4.8-10.8)
[2022-09-01 14:16] LABS: Estimated Average Glucose 126 mg/dL; Hemoglobin A1C 151.0951 umol/L
[2022-09-01 14:25] LABS: Alanine Aminotransferase 17 U/L (0-31); Anion Gap 13 (12-20); Aspartate Amino Transferase 19 U/L (5-31); Blood Urea Nitrogen 14 mg/dL (9-16); Calcium 9.1 mg/dL (8.4-10.2); Carbon Dioxide 25 mmol/L (22-29); Chloride 104 mmol/L (96-108); Cholesterol 177 mg/dL; Estimated Glomerular Filt Rate > 60; Glucose Fasting 129 mg/dL (60-99); HDL Cholesterol 50 mg/dL; LDL Cholesterol Calculated 78 mg/dl; Potassium 4.1 mmol/L (3.3-5.1); Sodium 138 mmol/L (135-145); Triglycerides 247 mg/dL
[2022-09-01 14:30] LABS: Microalbum/Creatinine Ratio Ur 13.5 ug/mg cr
[2022-09-01 14:48] LABS: Thyroid Stimulating Hormone 2.23 uIU/mL (0.32-4.0); Vitamin D 25-OH Total 38.9 ng/mL (>30)
[2022-09-01 14:53] LABS: Folate 13.3 ng/mL (> or = 4.0); Vitamin B12 581 pg/mL (200-900)
[2022-09-10 05:43] LABS: Vitamin B1 82 nmol/L (8-30)
== END 2022-09-01 12:50 | disposition home or self-care (01) ==
LOC: HO.HMGCLDS 12:49
PROVIDERS: PCP Internal Medicine; Visit Provider Internal Medicine
DX: E55.9 Vitamin D deficiency, unspecified (principal); Z00.01 Encounter for general adult medical examination with abnormal findings; I10 Essential (primary) hypertension; E03.9 Hypothyroidism, unspecified; E78.2 Mixed hyperlipidemia; G62.9 Polyneuropathy, unspecified; D64.9 Anemia, unspecified; Z86.2 Personal history of diseases of the blood and blood-forming organs and certain disorders involving the immune mechanism
CPT/HCPCS: 36415; 80048; 80061; 82043; 82306; 82607; 82746; 83036; 84425; 84439; 84443; 84450; 84460; 85025

== ENCOUNTER 2022-09-05 10:05 | Outpatient (REF) | payer MEDICARE, MEDICAID, SELFPAY | END 2022-09-05 10:06 | disposition home or self-care (01) | LOC: HO.MDS 10:05 | PROVIDERS: Visit Provider Internal Medicine | DX: G61.0 Guillain-Barre syndrome (principal) | CPT/HCPCS: 96365; 96366; 96375; J1569; J1940; J2920; Q0163 ==

== ENCOUNTER 2022-09-06 10:12 | Outpatient (REF) | payer MEDICARE, MEDICAID, SELFPAY | END 2022-09-06 10:13 | disposition home or self-care (01) | LOC: HO.MDS 10:12 | PROVIDERS: PCP Internal Medicine; Visit Provider Internal Medicine | DX: G61.0 Guillain-Barre syndrome (principal) | CPT/HCPCS: 96365; 96366; 96375; J1569; J1940; J2920; Q0163 ==

== ENCOUNTER 2022-09-07 10:21 | Outpatient (REF) | payer MEDICARE, MEDICAID, SELFPAY | END 2022-09-07 10:22 | disposition home or self-care (01) | LOC: HO.MDS 10:21 | PROVIDERS: Visit Provider Internal Medicine | DX: G61.0 Guillain-Barre syndrome (principal) | CPT/HCPCS: 96365; 96366; 96375; J1569; J1940; J2920; Q0163 ==

== ENCOUNTER 2022-09-08 10:32 | Outpatient (REF) | payer MEDICARE, MEDICAID, SELFPAY | END 2022-09-08 10:33 | disposition home or self-care (01) | LOC: HO.MDS 10:32 | PROVIDERS: Visit Provider Internal Medicine | DX: G61.0 Guillain-Barre syndrome (principal) | CPT/HCPCS: 96361; 96365; 96366; 96375; J1569; J1940; J2920; Q0163 ==

== ENCOUNTER 2022-09-20 11:16 | Outpatient (REF) | payer MEDICARE, MEDICAID, SELFPAY ==
[2022-09-25 06:16] LABS: Vitamin B1 143 nmol/L (8-30)
== END 2022-09-20 11:17 | disposition home or self-care (01) ==
LOC: HO.HMGCLDS 11:16
PROVIDERS: PCP Internal Medicine; Visit Provider Internal Medicine
DX: G62.9 Polyneuropathy, unspecified (principal)
CPT/HCPCS: 36415; 84425

== ENCOUNTER 2022-10-09 10:56 | Outpatient (REF) | payer MEDICARE, MEDICAID, SELFPAY | END 2022-10-09 10:57 | disposition home or self-care (01) | LOC: HO.MDS 10:56 | PROVIDERS: Visit Provider Internal Medicine | DX: G61.0 Guillain-Barre syndrome (principal) | CPT/HCPCS: 96365; 96366; 96368; 96375; J1569; J1940; J2920 ==

== ENCOUNTER 2022-10-10 10:42 | Outpatient (REF) | payer MEDICARE, MEDICAID, SELFPAY | END 2022-10-10 10:43 | disposition home or self-care (01) | LOC: HO.MDS 10:42 | PROVIDERS: Visit Provider Internal Medicine | DX: G61.0 Guillain-Barre syndrome (principal) | CPT/HCPCS: 96365; 96366; 96368; 96375; J1569; J1940; J2920 ==

== ENCOUNTER 2022-10-11 10:37 | Outpatient (REF) | payer MEDICARE, MEDICAID, SELFPAY | END 2022-10-11 10:38 | disposition home or self-care (01) | LOC: HO.MDS 10:37 | PROVIDERS: Visit Provider Internal Medicine | DX: G61.0 Guillain-Barre syndrome (principal) | CPT/HCPCS: 96365; 96366; 96368; 96375; J1569; J1940; J2920 ==

== ENCOUNTER 2022-10-12 10:46 | Outpatient (REF) | payer MEDICARE, MEDICAID, SELFPAY | END 2022-10-12 10:47 | disposition home or self-care (01) | LOC: HO.MDS 10:46 | PROVIDERS: Visit Provider Internal Medicine | DX: G61.0 Guillain-Barre syndrome (principal) | CPT/HCPCS: 96365; 96366; 96375; J1569; J1940; J2920 ==

== ENCOUNTER 2022-12-12 10:28 | Outpatient (REF) | payer MEDICARE, MEDICAID, SELFPAY | END 2022-12-12 10:29 | disposition home or self-care (01) | LOC: HO.MDS 10:28 | PROVIDERS: Visit Provider Internal Medicine | DX: G61.0 Guillain-Barre syndrome (principal) | CPT/HCPCS: 96365; 96366; 96375; J1569; J1940; J2920 ==

== ENCOUNTER 2022-12-13 10:29 | Outpatient (REF) | payer MEDICARE, MEDICAID, SELFPAY | END 2022-12-13 10:30 | disposition home or self-care (01) | LOC: HO.MDS 10:29 | PROVIDERS: Visit Provider Internal Medicine | DX: G61.0 Guillain-Barre syndrome (principal) | CPT/HCPCS: 96365; 96366; 96375; J1569; J1940; J2920 ==

== ENCOUNTER 2023-01-08 10:34 | Outpatient (REF) | payer MEDICARE, MEDICAID, SELFPAY | END 2023-01-08 10:35 | disposition home or self-care (01) | LOC: HO.MDS 10:34 | PROVIDERS: Visit Provider Internal Medicine | DX: G61.0 Guillain-Barre syndrome (principal) | CPT/HCPCS: 96365; 96366; 96368; 96375; J1569; J1940; J2920 ==

== ENCOUNTER 2023-01-09 10:29 | Outpatient (REF) | payer MEDICARE, MEDICAID, SELFPAY | END 2023-01-09 10:30 | disposition home or self-care (01) | LOC: HO.MDS 10:29 | PROVIDERS: Visit Provider Internal Medicine | DX: G61.0 Guillain-Barre syndrome (principal) | CPT/HCPCS: 96365; 96366; 96368; 96375; J1569; J1940; J2920 ==

== ENCOUNTER 2023-02-05 10:48 | Outpatient (REF) | payer MEDICARE, MEDICAID, SELFPAY | END 2023-02-05 10:49 | disposition home or self-care (01) | LOC: HO.MDS 10:48 | PROVIDERS: Visit Provider Internal Medicine | DX: G61.0 Guillain-Barre syndrome (principal) | CPT/HCPCS: J1569 ==

== ENCOUNTER → 2023-02-07 10:54 | Outpatient (BNVA) | payer MEDICARE, MEDICAID, SELFPAY | PROVIDERS: PCP Internal Medicine; Referring Provider Internal Medicine; Visit Provider Surgery | DX: G61.0 Guillain-Barre syndrome (principal); Z78.9 Other specified health status | CPT/HCPCS: 99202 ==

== ENCOUNTER 2023-02-09 10:52 | Day surgery (SDC) | payer MEDICARE, MEDICAID, SELFPAY ==
--- NOTE | 2023-02-08 10:31 | P.CONAN_ITS ---
Documented by User: Nury Penaloza NP 02/08/23 10:36 HPI - Anesthesia Eval Consult details Narrative: 33yo F for Port-a-Cath Insertion doppler u/s, fluoroscopy Complex medically requiring IVIG infusion with limited peripheral IV access. 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) History of anemia (Acute) Acquired hypothyroidism (Acute) Bipolar disorder (Acute) Peripheral neuropathy (Acute) Anemia (Acute) Vitamin D deficiency (Acute) Hyperlipidemia (Acute) Essential hypertension (Acute) Depot contraception (Acute) Past Medical History Medical History (Updated 02/08/23 @ 09:12 by Cindy Oden RN) Acquired hypothyroidism ARDS (adult respiratory distress syndrome) Bipolar disorder Depot contraception Diabetes mellitus with hyperglycemia DM2 (diabetes mellitus, type 2) Esophagitis with gastritis Essential hypertension Gastric paresis History of anemia Hyperlipidemia Hypogammaglobulinemia Muscle weakness Obesity due to excess calories Obesity, morbid, BMI 40.0-49.9 Peripheral neuropathy Pneumonia due to 2019 novel coronavirus Recurrent UTI Tremor of unknown origin Vitamin D deficiency Yeast infection involving the vagina and surrounding area Family History Family History Other Adopted Surgical History Surgical History (Updated 02/07/23 @ 11:20 by Jay Kim MD) 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 Hx of section Hx of tooth extraction Social History Social History Household Members: Family Household Members Other:: mom, dad and children Housing: Apartment Do you presently have visiting nurse or other home services: Yes Alcohol intake: never Patient Tobacco Use Status: Former Tobacco user Tobacco use type: Cigarette e-Cigarette/Vaping Use: Never Used Second Hand Smoke Exposure: No Advance Directives: No Advance Directives Information Provided: Yes service: No Current occupational status: disabled Gender identity: Female Cognitive needs: Yes Hearing needs: No Vision needs: Yes Meds Allergies Allergy/AdvReac Type Severity Reaction Status Date / Time latex Allergy Unknown Rash Verified 02/07/23 11:01 metoclopramide [From Reglan] AdvReac Unknown Interacts Verified 02/07/23 11:01 with Seroquel Active Medications: Current Medications Cefazolin Sodium/Dextrose (Ancef) 2 gm in 50 mls @ 100 mls/hr IV PREOP ONE Stop: 02/08/23 10:38 Home Medications Medication Instructions Recorded Confirmed Last Taken Type bupropion HCl 100 mg tablet,12 hr 100 mg PO QAM 11/30/20 08/25/22 03/01/22 History sustained-release trazodone 100 mg tablet 100 mg PO BEDTIME 11/30/20 08/25/22 02/28/22 History cranberry 400 mg capsule 450 mg PO DAILY 03/22/21 08/25/22 03/01/22 History melatonin 3 mg tablet 6 mg PO BEDTIME 03/22/21 08/25/22 02/28/22 History multivitamin 1 tab PO DAILY 03/22/21 08/25/22 03/01/22 History pregabalin 300 mg capsule 300 mg PO BID 05/10/21 08/25/22 03/01/22 History oxcarbazepine 150 mg tablet 300 mg PO BID 08/18/21 08/25/22 03/01/22 History immun glob G 10 gram/100 450 ml subcut Q4W 12/14/21 08/25/22 02/01/22 History mL(10%)-gly-IgA ov50 mcg/mL subcutaneous soln immun glob G 10 gram/100 500 ml subcut Q4W 12/14/21 08/25/22 01/31/22 History mL(10%)-gly-IgA ov50 mcg/mL subcutaneous soln benztropine 1 mg tablet 1 mg PO BID 01/22/22 08/25/22 03/01/22 History cholecalciferol (vitamin D3) 1,250 1,250 mcg PO QWEEK 01/22/22 08/25/22 02/27/22 History mcg (50,000 unit) capsule chlorhexidine gluconate 03/01/22 08/25/22 Unknown History chlorhexidine gluconate 0.12 % 15 ml buccal BID 03/01/22 08/25/22 Unknown History mouthwash omega-3 fatty acids 2,000 mg PO BID 03/01/22 08/25/22 Unknown History polyethylene glycol 3350 17 gram 17 g PO DAILY PRN Constipation 03/01/22 08/25/22 Unknown History oral powder packet quetiapine 400 mg tablet 400 mg PO BEDTIME 08/25/22 08/25/22 Unknown History Exam Exam Date and Time: February 08, 2023 1031 Pertinent Lab Results Pertinent Lab Results: Laboratory Tests 09/01/22 09/01/22 12:58 12:58 WBC 6.8 Hgb 14.3 Hct 43.3 Plt Count 247 Sodium 138 Potassium 4.1 Chloride 104 Carbon Dioxide 25 BUN 14 Creatinine 0.82 Assessment and Plan Assessment Anesthesia Assessment: Chart Reviewed Documented by User: Howie Marquez MD 02/09/23 11:17 [facility] Past Medical History Medical History (Updated 02/08/23 @ 09:12 by Cindy Oden RN) Acquired hypothyroidism ARDS (adult respiratory distress syndrome) Bipolar disorder Depot contraception Diabetes mellitus with hyperglycemia DM2 (diabetes mellitus, type 2) Esophagitis with gastritis Essential hypertension Gastric paresis History of anemia Hyperlipidemia Hypogammaglobulinemia Muscle weakness Obesity due to excess calories Obesity, morbid, BMI 40.0-49.9 Peripheral neuropathy Pneumonia due to 2019 novel coronavirus Recurrent UTI Tremor of unknown origin Vitamin D deficiency Yeast infection involving the vagina and surrounding area Family History Family History Other Adopted Family history of problems with anesthesia: No Surgical History Surgical History (Updated 02/07/23 @ 11:20 by Jay Kim MD) 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 Hx of section Hx of tooth extraction History of Problems with Anesthesia: No Social History Social History Household Members: Family Household Members Other:: mom, dad and children Housing: Apartment Do you presently have visiting nurse or other home services: Yes Alcohol intake: never Patient Tobacco Use Status: Former Tobacco user Tobacco use type: Cigarette e-Cigarette/Vaping Use: Never Used Second Hand Smoke Exposure: No Advance Directives: No Advance Directives Information Provided: Yes service: No Current occupational status: disabled Gender identity: Female Cognitive needs: Yes Hearing needs: No Vision needs: Yes Meds Allergies Allergy/AdvReac Type Severity Reaction Status Date / Time latex Allergy Unknown Rash Verified 02/07/23 11:01 metoclopramide [From Reglan] AdvReac Unknown Interacts Verified 02/07/23 11:01 with Seroquel Home Medications Medication Instructions Recorded Confirmed Last Taken Type bupropion HCl 100 mg tablet,12 hr 100 mg PO QAM 11/30/20 08/25/22 03/01/22 History sustained-release trazodone 100 mg tablet 100 mg PO BEDTIME 11/30/20 08/25/22 02/28/22 History cranberry 400 mg capsule 450 mg PO DAILY 03/22/21 08/25/22 03/01/22 History melatonin 3 mg tablet 6 mg PO BEDTIME 03/22/21 08/25/22 02/28/22 History multivitamin 1 tab PO DAILY 03/22/21 08/25/22 03/01/22 History pregabalin 300 mg capsule 300 mg PO BID 05/10/21 08/25/22 03/01/22 History oxcarbazepine 150 mg tablet 300 mg PO BID 08/18/21 08/25/22 03/01/22 History immun glob G 10 gram/100 450 ml subcut Q4W 12/14/21 08/25/22 02/01/22 History mL(10%)-gly-IgA ov50 mcg/mL subcutaneous soln immun glob G 10 gram/100 500 ml subcut Q4W 12/14/21 08/25/22 01/31/22 History mL(10%)-gly-IgA ov50 mcg/mL subcutaneous soln benztropine 1 mg tablet 1 mg PO BID 01/22/22 08/25/22 03/01/22 History cholecalciferol (vitamin D3) 1,250 1,250 mcg PO QWEEK 01/22/22 08/25/22 02/27/22 History mcg (50,000 unit) capsule chlorhexidine gluconate 03/01/22 08/25/22 Unknown History chlorhexidine gluconate 0.12 % 15 ml buccal BID 03/01/22 08/25/22 Unknown History mouthwash omega-3 fatty acids 2,000 mg PO BID 03/01/22 08/25/22 Unknown History polyethylene glycol 3350 17 gram 17 g PO DAILY PRN Constipation 03/01/22 08/25/22 Unknown History oral powder packet quetiapine 400 mg tablet 400 mg PO BEDTIME 08/25/22 08/25/22 Unknown History Exam Airway Mallampati Class: III TM Dist: >3cm Neck ROM: Limited Heart: rrr Lungs: cta Assessment and Plan Final Anesthetic Review Family History of Problems with Anesthesia: No History of Problems with Anesthesia: No NPO: Yes ASA Class: IV Final Preanesthetic Review: No Changes in Pt Med Stat, Meds/Allgs Chart Reviewed, Consent Obtained/Reviewed and Anes Risks/Benef Reviewed Patient Risk: High Procedure Risk: Low Anesthetic Plan Anesthetic Plan: MAC: and Agree w/ Assess. and Plan Disposition: Standard PACU
[2023-02-09] VITALS (8 sets, daily range): BP systolic 101–148; BP diastolic 70–99; PULSE 65–86; RESP 12–18; TEMP 36.1–36.6; O2SAT 95–99; BMI 40.4
--- NOTE | ~2023-02-09 | FL_ITS ---
EXAMINATION: XR FLUOROSCOPY WITH IMAGES CLINICAL INFORMATION: Dariusz catheter insertion COMPARISON: None available. TECHNIQUE: Fluoroscopy Supervised By: Julio donaldson. Fluoroscopy Time: 0.1 minute. Cumulative Dose: 2.17 mGy. DAP: 0.591 Gycm2. Images: 1. FINDINGS: There is a single digital image obtained of the upper chest in the OR revealing portal chamber and the right upper chest with its tip in the mid SVC.. Visualized bones are grossly unremarkable. FL/FL guidance in OR IMPRESSION: Fluoroscopy guidance was provided to Dr. Kim for placement of Port-A-Cath
--- NOTE | 2023-02-09 08:37 | P.HPSUR_ITS ---
Pre-Procedural Eval Section A Date of Service: 02/09/23 The patient is an INPATIENT: No Changes since office visit: No Cold of Flu in the past 2 weeks, No New Medical Problems, No Changes in Medication and No Patient answered all questions Section B Chief Complaint: Other specified health status,Guillain-[place] syndr Allergies: Allergies Allergy/AdvReac Type Severity Reaction Status Date / Time latex Allergy Unknown Rash Verified 02/07/23 11:01 metoclopramide [From Reglan] AdvReac Unknown Interacts Verified 02/07/23 11:01 with Seroquel Plan I have reviewed the history and physical and performed a pertinent physical examination on my patient. No changes have occurred unless specified. Time Spent With Patient Time: Total time managing care of this patient today ____ minutes.
[2023-02-09 11:28] LABS: UPreg QC Valid YES
[2023-02-09 11:29] LABS: Urine Pregnancy NEGATIVE (NEGATIVE)
[2023-02-09 11:32] LABS: Glucose, Whole Blood 132 mg/dL (60-115)
[2023-02-09] MEDS: Lactated Ringers 1,000 ML 100 ML IVCONT (11:56)
--- NOTE | 2023-02-09 13:12 | P.OP_ITS ---
Operative Note Operative Note Date of Service: 02/09/23 Narrative: Preoperative diagnosis: [] long-term IV access Postop diagnosis: [] same Procedure [] right internal jugular vein Port-A-Cath placement with Doppler ultrasound guidance and fluoroscopy Surgeon: [] Julio [employer] Carman: [] Type of Anesthesia: [] MAC Indication for surgery: [] patient has required and continues to require chressic IV infusion therapy and frequent blood draws and essentially has run out of peripheral axis Findings: [] patient brought to the operating room, placed on the operating table in supine position, after adequate of MAC anesthesia was induced And the operative field infiltrated with a combination of 1% lidocaine and 0.5 Marcaine, patient was placed in Trendelenburg position, and using Doppler ultrasound guidance, the right internal jugular vein was identified and cannulated using Seldinger technique. A wire was advanced to the level of superior vena cava under fluoroscopic guidance. A pocket was fashioned approximately 3 finger breaths below the cannulation site using Bovie, and tunnelled to the wire. Catheter was placed through the subcutaneous tunnel, connected to poor, and the port secured to the pocket using 3-0 Vicryl sutures. dilating sheath was then placed over the wire again under fluoroscopic guidance and a wire retrieved. Preop Flush catheter was advanced over the dilating sheath under fluoroscopic guidance to the level of the superior vena cava. Peel-away sheath was move out incident. Good position was confirmed. Antegrade and retrograde flow established. Wound was irrigated, secured hemostasis, and closed using interrupted inverted dermal 3-0 Vicryl sutures followed by Steri-Strips and sterile dressings. postprocedure fluoroscopy film in the operating room showed the catheter in good position with no pneumothorax. Sponge, needle, and instrument counts were reported to be correct. Patient tolerated the procedure well emerged anesthesia stable condition. EBL minimal
== END 2023-02-09 15:07 | disposition home or self-care (01) ==
PROVIDERS: Nurse Practitioner; Visit Provider Surgery
PROC: (CPT 36561; principal; 2023-02-09 12:40)
DX: Z45.2 Encounter for adjustment and management of vascular access device (principal); G61.0 Guillain-Barre syndrome; Z78.9 Other specified health status; R29.90 Unspecified symptoms and signs involving the nervous system; K31.84 Gastroparesis; E11.65 Type 2 diabetes mellitus with hyperglycemia; D64.9 Anemia, unspecified; G62.9 Polyneuropathy, unspecified; K29.70 Gastritis, unspecified, without bleeding; E03.9 Hypothyroidism, unspecified; I10 Essential (primary) hypertension; R25.1 Tremor, unspecified; K20.90 Esophagitis, unspecified without bleeding; E78.5 Hyperlipidemia, unspecified; E66.01 Morbid (severe) obesity due to excess calories; M62.81 Muscle weakness (generalized); J80 Acute respiratory distress syndrome; Z79.899 Other long term (current) drug therapy; Z88.8 Allergy status to other drugs, medicaments and biological substances; Z91.040 Latex allergy status; Z87.891 Personal history of nicotine dependence
CPT/HCPCS: 36561; 81025; 82947; C1788; J0690; J1643

== ENCOUNTER 2023-02-15 10:16 | Outpatient (REF) | payer MEDICARE, MEDICAID, SELFPAY ==
[2023-02-15 11:32] LABS: Glucose, Whole Blood 132 mg/dL (60-115)
== END 2023-02-15 10:17 | disposition home or self-care (01) ==
LOC: HO.MDS 10:16
PROVIDERS: PCP Internal Medicine; Visit Provider Internal Medicine
DX: G61.0 Guillain-Barre syndrome (principal)
CPT/HCPCS: 82947; 96365; 96366; 96367; 96368; 96375; J1569; J1642; J1940; J2920

== ENCOUNTER 2023-02-16 10:57 | Outpatient (REF) | payer MEDICARE, MEDICAID, SELFPAY ==
[2023-02-16 11:51] LABS: Estimated Average Glucose 114 mg/dL; Hemoglobin A1c % 5.6 %
[2023-02-16 11:58] LABS: Alanine Aminotransferase 19 U/L (0-31); Anion Gap 10 (12-20); Aspartate Amino Transferase 20 U/L (5-31); Blood Urea Nitrogen 13 mg/dL (9-16); Calcium 8.3 mg/dL (8.4-10.2); Carbon Dioxide 25 mmol/L (22-29); Chloride 110 mmol/L (96-108); Cholesterol 134 mg/dL; Estimated Glomerular Filt Rate > 60; Glucose Fasting 106 mg/dL (60-99); HDL Cholesterol 47 mg/dL; LDL Cholesterol Calculated 54 mg/dl; Potassium 3.6 mmol/L (3.3-5.1); Sodium 141 mmol/L (135-145); Triglycerides 165 mg/dL
[2023-02-16 12:14] LABS: Free T4 (Free Thyroxine) 1.15 ng/dL (0.71-1.85); Thyroid Stimulating Hormone 3.36 uIU/mL (0.32-4.0); Vitamin D 25-OH Total 40.3 ng/mL (>30)
[2023-02-16 12:22] LABS: Appearance Urine Cloudy; Color Urine Yellow; Glucose Urine UA Negative (Negative); Leukocyte Esterase Urine Small (1+) (Negative); Nitrite Urine Negative (Negative); PH 6.5 (5.0-9.0); Specific Gravity - Urine 1.015 (1.005-1.025); UMIC TRIGGER UACC YES; Urine Blood Negative (Negative); Urine Ketones Negative (Negative); Urine Protein Negative (Neg-Trace)
[2023-02-16 12:36] LABS: Bacteria Urine Trace (None Seen); Hyaline Casts Urine 0-2 /LPF (0-2); RBC Urine 0-2 /HPF (0-2); UACC Culture Trigger YES; WBC Urine 0-5 /HPF (0-5)
[2023-02-16 12:40] LABS: Microalbum/Creatinine Ratio Ur 11.6 ug/mg cr
[2023-02-24 12:09] LABS: Vitamin B1 10 nmol/L (8-30)
== END 2023-02-16 10:58 | disposition home or self-care (01) ==
LOC: HO.LAB 10:57
PROVIDERS: PCP Internal Medicine; Visit Provider Internal Medicine
DX: Z13.89 Encounter for screening for other disorder (principal)
CPT/HCPCS: 36415; 80048; 80061; 81001; 81003; 82043; 82306; 83036; 84425; 84439; 84443; 84450; 84460; 87086

== ENCOUNTER 2023-02-16 11:19 | Outpatient (REF) | payer MEDICARE, MEDICAID, SELFPAY | END 2023-02-16 11:20 | disposition home or self-care (01) | LOC: HO.MDS 11:19 | PROVIDERS: Visit Provider Internal Medicine | DX: G61.0 Guillain-Barre syndrome (principal); E03.9 Hypothyroidism, unspecified; G62.9 Polyneuropathy, unspecified; E55.9 Vitamin D deficiency, unspecified; E78.2 Mixed hyperlipidemia; I10 Essential (primary) hypertension; E11.69 Type 2 diabetes mellitus with other specified complication; Z79.4 Long term (current) use of insulin | CPT/HCPCS: 36415; 80048; 80061; 81001; 82043; 82306; 83036; 84425; 84439; 84443; 84450; 84460; 87086; 96365; 96366; 96375; 99212; J1569; J1642; J1940; J2920 ==

== ENCOUNTER 2023-02-19 11:15 | Outpatient (AMB) | payer MEDICARE, MEDICAID, SELFPAY ==
--- NOTE | 2023-02-19 11:18 | A.OFFPC_ITS ---
Vital Signs 02/19/23 11:20 Height 4 ft 10 in Weight 210 lb 6 oz BMI 43.9 BP 100/72 Blood Pressure Location Lt brachial Position Sitting Pulse 85 Pulse Source Pulse Oximeter Pulse Oximetry (%) 98 Oxygen Delivery Method Room Air Intake Visit Reasons: 6 month ffup lipids , thyroid , dm Intake Note: Pt is here for 6 month f/u on lipids, thyroid, and dm Allergies latex Allergy (Unknown, Verified 06/12/23 02:24) Rash metoclopramide [From Reglan] Adverse Reaction (Unknown, Verified 06/12/23 02:24) Interacts with Seroquel Medication List - Last Reconciled 02/19/23 by Lachelle Guerra MD benztropine 1 mg PO BID blood sugar diagnostic (FreeStyle Lite Strips) three times a day blood-glucose meter (FreeStyle Lite Meter kit) 3 x/day bupropion HCl 100 mg PO QAM [chlorhexidine gluconate ] chlorhexidine gluconate 0.12% 15 mL buccal BID cranberry 450 mg PO DAILY ferrous sulfate 325 mg PO BID immun glob G(IgG)-gly-IgA ov50 10 gram/100 mL (10 %) 500 mL subcut Q4W immun glob G(IgG)-gly-IgA ov50 10 gram/100 mL (10 %) 450 mL subcut Q4W lancets (FreeStyle Lancets) As directed three time a day levothyroxine (Euthyrox) 75 mcg PO QAM magnesium oxide 400 mg PO DAILY melatonin 6 mg PO BEDTIME metformin ER 500 mg PO DAILY multivitamin 1 tab PO DAILY omega-3 fatty acids 2,000 mg PO BID oxcarbazepine 300 mg PO BID pantoprazole 40 mg PO DAILY PRN pen needle, diabetic (BD Wendy 2nd Gen Pen Needle) As directed daily polyethylene glycol 3350 17 grams PO DAILY PRN pravastatin 20 mg PO BEDTIME pregabalin 300 mg PO BID quetiapine 400 mg PO BEDTIME thiamine HCl (vitamin B1) 100 mg PO DAILY trazodone 100 mg PO BEDTIME [wheelchair As directed] Tobacco use date assessed: 02/19/23 HPI 6 month ffup lipids , thyroid , dm HPI Details 33-year-old lady with 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 She has been seen at [facility], by Dr. 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 Her glucose levels, lipids and thyroid are stable, with recent labs showing normal lipids, with a hemoglobin A1c at 5.6% and thyroid levels are within normal limits. Still has ongoing weakness and mild tremors in lower extremities, improving with continued IVIG infusion. [facility] Medical History (Updated 07/03/23 @ 18:29 by Lachelle Guerra MD) Acquired hypothyroidism Acute inflammatory demyelinating polyneuropathy ARDS (adult respiratory distress syndrome) Bipolar disorder Depot contraception Diabetes mellitus with hyperglycemia DM2 (diabetes mellitus, type 2) Esophagitis with gastritis Essential hypertension Gastric paresis History of anemia History of vitamin D deficiency Hyperlipidemia Hypogammaglobulinemia Muscle weakness Obesity due to excess calories Obesity, morbid, BMI 40.0-49.9 Pneumonia due to 2019 novel coronavirus Recurrent UTI Surgical History (Updated 07/03/23 @ 18:12 by Lachelle Guerra MD) History of surgery (02/09/23) Hx of section Hx of tooth extraction Family History Other Adopted Social History Household Members: Family Household Members Other:: mom, dad and children Housing: House Do you presently have visiting nurse or other home services: Yes Alcohol intake: never Patient Tobacco Use Status: Former Tobacco user Tobacco use type: Cigarette e-Cigarette/Vaping Use: Never Used Second Hand Smoke Exposure: No service: No Current occupational status: disabled Gender identity: Female Cognitive needs: Yes Hearing needs: No Vision needs: Yes Female Reproductive History Menstrual Age of Menarche: 9 Questionnaire PHQ-9 Over the last 2 weeks, how often have you been bothered by any of the following problems? 1. Little interest or pleasure in doing things: not at all 2. Feeling down, depressed, or hopeless: not at all 3. Trouble falling or staying asleep, or sleeping too much: not at all 4. Feeling tired or having little energy: more than half the days 5. Poor appetite or overeating: several days 6. Feeling bad about yourself - or that you are a failure or have let yourself or your family down: not at all 7. Trouble concentrating on things, such as reading the newspaper or watching television: several days 8. Moving or speaking so slowly that other people could have noticed. Or the opposite - being so fidgety or restless that you have been moving around a lot more than usual: several days 9. Thoughts that you would be better off or of hurting yourself in some way: not at all Total score: 5 Depression Screening Interpretation: Positive Depression Screening Follow-up: Existing condition and In treatment (Followed by psychiatry) 65692 - PHQ-9 Billing: Yes Source: Developed by Drs. Dionisio Combs, Kinjal Bates, Aditya Bustillo and colleagues, with an educational kennedy from [employer] Thrive Questionnaire Declines Thrive assessment: No Date Thrive assessed: 02/19/23 I am a: Patient What is your living situation today?: I have a steady place to live Within the past 12 months, did the food you bought not last and you didn't have the money to get more?: Never true Within the past 12 months, did you worry whether your food would run out before you got money to buy more?: Never true Do you have trouble paying for medicines?: No Do you have trouble getting transportation to medical appointments?: No Do you have trouble paying your heating and electricity bill?: No Do you have trouble taking care of your child, family member or friend?: Yes Do you have trouble with day-to-day activities such as bathing, preparing meals, shopping, managing finances, etc.?: Yes Are you currently unemployed and looking for a job?: No Are you interested in more education?: No AUDIT C Alcohol Use Questionnaire (AUDIT-C) 1. How often do you have a drink containing alcohol?: Never Total Score: 0 TATYANA-7 AMB Questionnaire TATYANA-7 Date TATYANA - 7 assessed: 02/19/23 Feeling nervous, anxious, or on edge: 1 = Several days Not being able to stop or control worryin = Not at all Worrying too much about different things: 0 = Not at all Trouble relaxin = Not at all Being so restless that it is hard to sit still: 0 = Not at all Becoming easily annoyed or irritable: 0 = Not at all Feeling afraid as if something awful might happen: 0 = Not at all Total TATYANA-7 score (0-4 normal; 5-9 mild; 10-14 moderate; 15-21 severe): 1 Source: Developed by Drs. Dionisio Combs, Kinjal Bates, Aditya Bustillo and colleagues, with an educational kennedy from [employer] TATYANA-7 Assessment Billing TATYANA-7 Assessment Tool: TATYANA-7 Assessment 41566 Review of Systems Const Reports as per HPI, Denies body aches, Denies chills, Denies fatigue, Denies fever(s), Denies headache(s) and Denies poor appetite Eyes Reports no additional complaints ENT Denies dysphagia, Denies headache(s) and Denies sore throat Card Denies palpitations and Denies dyspnea Resp Denies cough and Denies dyspnea GI Denies constipation, Denies dysphagia and Denies diarrhea Reports no additional complaints, Denies urinary frequency and Denies dysuria Musc Reports abnormal gait, Denies muscle cramps, Reports muscle weakness (Improving), Reports numbness and Reports tingling Neuro Reports as per HPI, Reports abnormal gait, Denies burning sensations, Denies headache(s), Reports focal weakness (Lower extremities), Reports numbness, Reports tingling and Denies paresthesias Psych Reports no additional complaints Endo Denies fatigue, Reports polydipsia, Reports polyuria and Denies palpitations Randy/Lymph Denies easy bleeding and Denies easy bruising Aller/Immun Reports no additional complaints Physical exam (Primary Care) Vital Signs: Last Vital Signs Pulse 85 02/19/23 11:20 BP 100/72 02/19/23 11:20 Pulse Ox 98 02/19/23 11:20 Oxygen Delivery Method Room Air 02/19/23 11:20 BMI result Body Mass Index 43.9 BMI Assessment/Plan discussion: High BMI High, discussed plan: lifestyle, weight reduction and dietary Tobacco/Smoking Status: Tobacco use Status Tobacco use date assessed 02/19/23 02/19/23 11:25 Patient Tobacco Use Status Former Tobacco user 02/19/23 11:19 Tobacco use type Cigarette 02/19/23 11:19 e-Cigarette/Vaping Use Never Used 02/19/23 11:19 PHQ-9: PHQ-9 Score PHQ-9: Total score 5 02/19/23 12:35 Depression Screening Interpretation: Positive Depression Screening Follow-up: Existing condition and In treatment (Followed by psychiatry) Thrive Assessment: Date of Thrive Assessment Date Thrive assessed 02/19/23 02/19/23 11:36 Const Other: Patient is wheelchair-bound, alert, oriented x3, accompanied by father, no acute cardiorespiratory distress noted Nutritional Appearance: obese Orientation/consciousness: patient oriented x3 Limitations: wheelchair HENMT Head: Yes normocephalic Ears: external ears normal General nose exam: Normal external nose present and No nasal discharge present Face and sinus: Yes face symmetric Mouth: oropharynx normal and moist mucous membranes Eyes General: appearance normal, both eyes and all related structures Neck Neck: Yes full ROM, Yes no lymphadenopathy and Yes supple Resp Effort & Inspection: normal respiratory effort and able to speak in complete sentences Auscultation: clear to auscultation bilaterally Cardio Rate: regular rate Rhythm: regular rhythm Heart sounds: S1 normal heart sound present and S2 normal heart sound present GI Palpation (GI): Soft to palpation, nontender, no guarding and no masses Auscultation: normal bowel sounds Other: Sees a C OBGYN General: Yes no CVA tenderness and Yes deferred Back/Spine/Pelvis Back: no CVA tenderness and No back tenderness Skin General skin exam: no rashes or lesions noted Neuro Other: Able to converse but sometimes has difficulty with word-finding CT MMT 5/5 in both upper extremities read she shoulder abduction, elbow flexion extension MMT 4 to 5/5 in lower extremities, on knee extension and flexion and on hip flexion General: patient oriented x3, no focal motor deficits and CN's II-XI intact bilaterally Speech: Other speech findings present (Neuro) (Slow speech) Gait exam (Neuro): Assisted gait required (Falls have been reported at home) Gait assisted method: wheelchair bound Sensory Exam: other (Intact to light touch, vibratory sense normal in UE, decreased in LE) Extrem General: Yes no joint enlargement, Yes no pedal edema and Yes no calf tenderness Psych Appearance: grossly normal and well kempt Mental Status: other (Slow mentation noted) Speech and movement: Clear speech present and Slowed movement present (Neuro) Affect: normal affect Attitude: cooperative Results Reviewed Results Reviewed: ENTERED: 02/16/23-[address]: ORDERED: Met Prof Fast, AST, ALT, Lipid Panel, Vitamin D 25-OH, Free T4, TSH Test Result Flag Reference Site Sodium 141 135-145 mmol/L Potassium 3.6 3.3-5.1 mmol/L CL 110 H 96-108 mmol/L CO2 25 22-29 mmol/L Gap 10 L 12-20 BUN 13 9-16 mg/dL Creat 0.80 0.5-1.4 mg/dL EGFR > 60 NOTE: For -Citizen Of [place] individuals, multiply the result by 1.210. Chronic Kidney Disease: Estimated GFR < 60 mL/min/1. 73m2 Severe Kidney Disease: Estimated GFR < 15 mL/min/1.73m2 FBS 106 H 60-99 mg/dL A fasting glucose from 100-125 mg/dl is considered impaired (pre-diabetes). CA 8.3 # L 8.4-10.2 mg/dL AST (GOT) 20 5-31 U/L ALT (GPT) 19 0-31 U/L Triglyceride 165 mg/dL Desirable Triglyceride: less than 150 mg/dL Borderline High Triglyceride 150-199 mg/dL High Triglyceride: 200-499 mg/dL Very High Triglyceride: greater than or equal to 5OO mg/dL Chol 134 mg/dL Desirable Cholesterol: less than 200 mg/dL Borderline High Cholesterol: 200-239 mg/dL High Cholesterol: greater than 239 mg/dL LDL Calculated 54 mg/dl Desirable LDL: less than 100 mg/dL Near Optimal/Above Optimal LDL: 110-129 mg/dL Borderline High LDL: 130-159 mg/dL High LDL: 160-189 mg/dL Very High LDL: greater than or equal to 190 mg/dL HDL 47 mg/dL Desirable HDL: greater than 40 mg/dL Note: This HDL assay may give artificially low results in patients with liver disease. Vit D 25-OH Tot 40.3 >30 ng/mL Health Based Reference Values* < 20 ng/mL Deficient 20-30 ng/mL Insufficient > 30 ng/mL Sufficient *Robles SAHA. N Engl J Med. 2007;[id number]:266-280 Care must be taken in interpreting Vitamin D results from different laboratories and methodologies. Published data demonstrated that results from patients undergoing hemodialysis may show a negative bias when tested with various automated 25-OH vitamin D assays when compared to LC-MS/MS. When testing samples from patients whose predominant form of Vitamin D is Vitamin D2, such as patients receiving Vitamin D2 supplementation, results that are subtherapeutic should be confirmed with another method such as LC-MS/MS. Free T4 1.15 0.71-1.85 ng/dL TSH 3rd Gen. 3.36 0.32-4.0 uIU/mL Note: A sustained TSH level above 2.5 uIU/mL may warrant further investigation. Laboratory Tests 02/16/23 11:30 Estimat Average Glucose 114 Hemoglobin A1c % 5.6 ENTERED: 02/16/23-[address]: ORDERED: [facility] w Micros QUERIES: Source: Urine, Clean Catch Test Result Flag Reference Site Ur Color Yellow Ur Appear Cloudy PH 6.5 5.0-9.0 Ur Glu Negative Negative mg/dL Urine Blood Negative Negative Spec [place] Ur 1.015 1.005-1.025 Urine Protein Negative Neg-Trace mg/dL Urine Ketones Negative Negative mg/dL Ur Nitrite Negative Negative Ur Adali Esterase Small (1+) H Negative Ur RBC 0-2 0-2 /HPF Ur WBC 0-5 0-5 /HPF Ur Squam Epi 6-10 0-2 /HPF Ur Bact Trace None Seen Ur Hyaline Floor Layer Tile 0-2 0-2 /LPF RUN: 02/19/23 1204 PAGE 1 [facility] [address] [place] [id number] Equipment Technician: Eric Garcia M.D. Specimen Inquiry Name: Susy Wolf Age/Sex: 33/F : 1990 Unit#: [id number] Attend Dr: Lachelle Guerra MD Re02/16/23 Status: DEP REF Location: .LAB Disch: Specimen: :[id number] Collected: 02/16/23 Status: COMP Req#: [id number] Received: 02/16/23 Source: [facility] Sp Desc: Urine ohara Subm Dr: Lachelle Guerra MD Ordered: Urine Culture Procedure Result Verified Site Urine Culture Final 02/17/23 Report Result 50,000 to 100,000 cfu/ml Mixed bacterial segun characteristic of urogenital contamination. Assessment and Plan Assessment & Plan (1) DM2 (diabetes mellitus, type 2): Code(s): E11.9 - Type 2 diabetes mellitus without complications Qualifiers: Diabetes mellitus complication status: with other specified complication Diabetes mellitus long-term insulin use: with parts counterman use Qualified Code(s): E11.69 - Type 2 diabetes mellitus with other specified complication; Z79.4 - detention (current) use of insulin Plan: Latest hemoglobin A1c is at 5.6%, continue on metformin but switched to extended release 500 mg once a day, in addition to adherence to recommended diet, continued on PT OT (2) History of anemia: Code(s): Z86.2 - Personal history of diseases of the blood and blood-forming organs and certain disorders involving the immune mechanism Plan: CBC now within normal limits (3) Acquired hypothyroidism: Comment: negative anti TPO antibodies Code(s): E03.9 - Hypothyroidism, unspecified Plan: Thyroid levels are within normal limits, continue on current dose of levothyroxine 75 mcg daily in a.m. an hour before breakfast (4) Hyperlipidemia: Code(s): E78.5 - Hyperlipidemia, unspecified Qualifiers: Hyperlipidemia type: mixed hyperlipidemia Qualified Code(s): E78.2 - Mixed hyperlipidemia Plan: Fasting lipids are within normal limits, continue [place] 3 fatty acid supplements and pravastatin 20 mg at bedtime (5) Gait instability: Code(s): R26.81 - Unsteadiness on feet Plan: Likely with some deconditioning, referral to physical therapy ordered (6) Acute inflammatory demyelinating polyneuropathy: Comment: Or Guillain Hinckley syndrome, 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 Code(s): G61.0 - Guillain-Hinckley syndrome Plan: Continued on regular IVIG infusions (7) Esophagitis with gastritis: Comment: noted on EGD done by Dr. Pitts Code(s): K29.70 - Gastritis, unspecified, without bleeding; K20.90 - Esophagitis, unspecified without bleeding Plan: Continued on pantoprazole 40 mg daily as needed for episodes of heartburn Orders: Orders Complete Blood Count Auto Diff 3 Months E11.9 - Type 2 diabetes mellitus without complications, Z86.2 - Personal history of diseases of the blood and blood- forming organs and certain disorders involving the immune mechanism, E03.9 - Hypothyroidism, unspecified, G62.9 - Polyneuropathy, unspecified, E78.5 - Hyperlipidemia, unspecified, I10 - Essential (primary) hypertension, Z86.39 - Personal history of other endocrine, nutritional and metabolic disease Basic Metabolic Panel Fasting 3 Months E11.9 - Type 2 diabetes mellitus without complications, Z86.2 - Personal history of diseases of the blood and blood- forming organs and certain disorders involving the immune mechanism, E03.9 - Hypothyroidism, unspecified, G62.9 - Polyneuropathy, unspecified, E78.5 - Hype rlipidemia, unspecified, I10 - Essential (primary) hypertension, Z86.39 - Personal history of other endocrine, nutritional and metabolic disease Aspartate Amino Transferase 3 Months E11.9 - Type 2 diabetes mellitus without complications, Z86.2 - Personal history of diseases of the blood and blood- forming organs and certain disorders involving the immune mechanism, E03.9 - Hypothyroidism, unspecified, G62.9 - Polyneuropathy, unspecified, E78.5 - Hyperlipidemia, unspecified, I10 - Essential (primary) hypertension, Z86.39 - Personal history of other endocrine, nutritional and metabolic disease Alanine Aminotransferase 3 Months E11.9 - Type 2 diabetes mellitus without complications, Z86.2 - Personal history of diseases of the blood and blood- forming organs and certain disorders involving the immune mechanism, E03.9 - Hypothyroidism, unspecified, G62.9 - Polyneuropathy, unspecified, E78.5 - Hyperlipidemia, unspecified, I10 - Essential (primary) hypertension, Z86.39 - Personal history of other endocrine, nutritional and metabolic disease Hemoglobin A1c 3 Months E11.9 - Type 2 diabetes mellitus without complications, Z86.2 - Personal history of diseases of the blood and blood-forming organs and certain disorders involving the immune mechanism, E03.9 - Hypothyroidism, unspecified, G62.9 - Polyneuropathy, unspecified, E78.5 - Hyperlipidemia, unspecified, I10 - Essential (primary) hypertension, Z86.39 - Personal history of other endocrine, nutritional and metabolic disease Lipid Panel 3 Months E11.9 - Type 2 diabetes mellitus without complications, Z86.2 - Personal history of diseases of the blood and blood-forming organs and certain disorders involving the immune mechanism, E03.9 - Hypothyroidism, unspecified, G62.9 - Polyneuropathy, unspecified, E78.5 - Hyperlipidemia, unspecified, I10 - Essential (primary) hypertension, Z86.39 - Personal history of other endocrine, nutritional and metabolic disease Microalbumin, Random (w Creat) 3 Months E11.9 - Type 2 diabetes mellitus without complications, Z86.2 - Personal history of diseases of the blood and blood- forming organs and certain disorders involving the immune mechanism, E03.9 - Hypothyroidism, unspecified, G62.9 - Polyneuropathy, unspecified, E78.5 - Hyperlipidemia, unspecified, I10 - Essential (primary) hypertension, Z86.39 - Personal history of other endocrine, nutritional and metabolic disease Thyroid Stimulating Hormone 3 Months E11.9 - Type 2 diabetes mellitus without complications, Z86.2 - Personal history of diseases of the blood and blood- forming organs and certain disorders involving the immune mechanism, E03.9 - Hypothyroidism, unspecified, G62.9 - Polyneuropathy, unspecified, E78.5 - Hyperlipidemia, unspecified, I10 - Essential (primary) hypertension, Z86.39 - Personal history of other endocrine, nutritional and metabolic disease Free T4 (Free Thyroxine) 3 Months E03.9 - Hypothyroidism, unspecified, E11.9 - Type 2 diabetes mellitus without complications, Z86.2 - Personal history of diseases of the blood and blood-forming organs and certain disorders involving the immune mechanism, G62.9 - Polyneuropathy, unspecified, E78.5 - Hyperlipidemia, unspecified, I10 - Essential (primary) hypertension, Z86.39 - Personal history of other endocrine, nutritional and metabolic disease Vitamin D 25-OH Total 3 Months E11.9 - Type 2 diabetes mellitus without complications, Z86.2 - Personal history of diseases of the blood and blood- forming organs and certain disorders involving the immune mechanism, E03.9 - Hypothyroidism, unspecified, G62.9 - Polyneuropathy, unspecified, E78.5 - Hy perlipidemia, unspecified, I10 - Essential (primary) hypertension, Z86.39 - Personal history of other endocrine, nutritional and metabolic disease Vitamin B12 and Folate 3 Months E11.9 - Type 2 diabetes mellitus without complications, Z86.2 - Personal history of diseases of the blood and blood- forming organs and certain disorders involving the immune mechanism, E03.9 - H ypothyroidism, unspecified, G62.9 - Polyneuropathy, unspecified, E78.5 - Hyperlipidemia, unspecified, I10 - Essential (primary) hypertension, Z86.39 - Personal history of other endocrine, nutritional and metabolic disease Vitamin B1 3 Months E11.9 - Type 2 diabetes mellitus without complications, Z86.2 - Personal history of diseases of the blood and blood-forming organs and certain disorders involving the immune mechanism, E03.9 - Hypothyroidism, unspecified, G62.9 - Polyneuropathy, unspecified, E78.5 - Hyperlipidemia, unspecified, I10 - Essential (primary) hypertension, Z86.39 - Personal history of other endocrine, nutritional and metabolic disease PT Evaluation and Treatment 02/19/23 R26.81 - Unsteadiness on feet Medications: New metformin ER 500 mg PO DAILY 90 tabs 2RF Changed From pantoprazole 40 mg PO DAILY 30 caps 3RF To pantoprazole 40 mg PO DAILY PRN Refilled levothyroxine (Euthyrox) 75 mcg PO QAM 90 caps 3RF Discontinued metformin Take with meals Discontinued Reason: Doctor's Order 500 mg PO BID 180 tabs 1RF E11.65 - Type 2 diabetes mellitus with hyperglycemia, E11.9 - Type 2 diabetes mellitus without complications Coding Level of Care Code Est Pt Level 4 (54797) Diagnoses DM2 (diabetes mellitus, type 2) E11.69; Z79.4 Diabetes mellitus complication status: with other specified complication Diabetes mellitus parts counterman insulin use: with long-term use History of anemia Z86.2 Acquired hypothyroidism E03.9 Hyperlipidemia E78.2 Hyperlipidemia type: mixed hyperlipidemia Gait instability R26.81 Acute inflammatory demyelinating polyneuropathy G61.0 Esophagitis with gastritis K29.70; K20.90 Additional Codes TATYANA-7 Assessment Billing - TATYANA-7 Assessment Tool: TATYANA-7 Assessment 11194 ([id number])
[2023-02-19 11:20] VITALS: BP 100/72; PULSE 85; O2SAT 98; BMI 43.9
== END 2023-02-19 12:47 | disposition home or self-care (01) ==
LOC: HO.HMGC 11:16
PROVIDERS: PCP Internal Medicine; Visit Provider Internal Medicine
DX: E11.69 Type 2 diabetes mellitus with other specified complication (principal); Z79.4 Long term (current) use of insulin; Z86.2 Personal history of diseases of the blood and blood-forming organs and certain disorders involving the immune mechanism; E03.9 Hypothyroidism, unspecified; G61.0 Guillain-Barre syndrome; E78.2 Mixed hyperlipidemia; R26.81 Unsteadiness on feet; K29.70 Gastritis, unspecified, without bleeding; K20.90 Esophagitis, unspecified without bleeding
CPT/HCPCS: 99214

== ENCOUNTER 2023-03-20 10:14 | Outpatient (REF) | payer MEDICARE, MEDICAID, SELFPAY | END 2023-03-20 10:15 | disposition home or self-care (01) | LOC: HO.MDS 10:14 | PROVIDERS: Visit Provider Internal Medicine | DX: G61.0 Guillain-Barre syndrome (principal) | CPT/HCPCS: 96365; 96366; 96374; 96375; J1569; J1642; J1940; J2920 ==

== ENCOUNTER 2023-03-21 10:05 | Outpatient (REF) | payer MEDICARE, MEDICAID, SELFPAY | END 2023-03-21 10:06 | disposition home or self-care (01) | LOC: HO.MDS 10:05 | PROVIDERS: Visit Provider Internal Medicine | DX: G61.0 Guillain-Barre syndrome (principal) | CPT/HCPCS: 96365; 96366; 96375; J1569; J1642; J1940; J2920 ==

== ENCOUNTER 2023-04-18 09:56 | Outpatient (REF) | payer MEDICARE, MEDICAID, SELFPAY ==
--- NOTE | ~2023-04-18 | FL_ITS ---
EXAMINATION: XR PORT INJECTION WITH RADIOLOGICAL SUPERVISION AND INTERPRETATION CLINICAL INFORMATION: No blood flow back from port. COMPARISON: None available. TECHNIQUE: Stone Rubber film was obtained. The port was accessed. There was no blood return. The port was injected with Omnipaque 300 under fluoroscopic guidance. The port was flushed with normal saline followed by 5 mL heparin 100 unit per mL solution. Fluoroscopy Time: 0.4 minutes. Total Dose: 20 mg DAP: 2.4 Gy-cm2 Fluoroscopy Time 0.4 minutes. FINDINGS: The right jugular port is retracted or pulled back. The catheter is coiled in the right jugular vein. The catheter tip is in the proximal SVC. There is fibrin sheath seen at the tip of the catheter. FL/FL cva device check w fluoro IMPRESSION: Retracted right internal jugular port with catheter coiled in the right internal jugular vein. Fibrin sheath at the tip of the catheter.
== END 2023-04-18 09:57 | disposition home or self-care (01) ==
LOC: HO.MDS 09:56
PROVIDERS: Visit Provider Internal Medicine
DX: G61.0 Guillain-Barre syndrome (principal); T82.594A Other mechanical complication of infusion catheter, initial encounter; Y84.8 Other medical procedures as the cause of abnormal reaction of the patient, or of later complication, without mention of misadventure at the time of the procedure; Y92.530 Ambulatory surgery center as the place of occurrence of the external cause
CPT/HCPCS: 36598; C1751; J1569; J1642; J1940; J2920; Q9967

== ENCOUNTER 2023-04-18 16:25 | Outpatient (REF) | payer MEDICARE, MEDICAID, SELFPAY | END 2023-04-18 16:26 | disposition home or self-care (01) | LOC: HO.XRAY 16:25 | PROVIDERS: PCP Internal Medicine; Visit Provider Surgery | DX: Z13.89 Encounter for screening for other disorder (principal) ==

== ENCOUNTER 2023-04-19 09:57 | Outpatient (REF) | payer MEDICARE, MEDICAID, SELFPAY | END 2023-04-19 09:58 | disposition home or self-care (01) | LOC: HO.MDS 09:57 | PROVIDERS: Visit Provider Internal Medicine | DX: G61.0 Guillain-Barre syndrome (principal) | CPT/HCPCS: 96365; 96366; 96375; J1569; J1642; J1940; J2920 ==

== ENCOUNTER 2023-05-22 10:11 | Outpatient (REF) | payer MEDICARE, MEDICAID, SELFPAY | END 2023-05-22 10:12 | disposition home or self-care (01) | LOC: HO.MDS 10:11 | PROVIDERS: Visit Provider Internal Medicine | DX: G61.0 Guillain-Barre syndrome (principal) | CPT/HCPCS: 96365; 96366; 96375; J1569; J1642; J1940; J2920 ==

== ENCOUNTER 2023-05-23 10:10 | Outpatient (REF) | payer MEDICARE, MEDICAID, SELFPAY | END 2023-05-23 10:11 | disposition home or self-care (01) | LOC: HO.MDS 10:10 | PROVIDERS: Visit Provider Internal Medicine | DX: G61.0 Guillain-Barre syndrome (principal) | CPT/HCPCS: 96365; 96366; 96375; J1569; J1642; J1940; J2920 ==

== ENCOUNTER 2023-06-09 10:23 | Outpatient (REF) | payer MEDICARE, MEDICAID, SELFPAY ==
[2023-06-09 13:34] LABS: MANUAL DIFF FLAG NO
[2023-06-09 13:41] LABS: Basophils Percent Auto 0.7 % (0-2); Eosinophils Absolute Auto 0.3 X10*3/uL (0.0-0.4); Hematocrit 42.5 % (37.0-47.0); Hemoglobin 13.8 g/dl (12.0-16.0); Imm Gran Abs Auto 0.03 X10*3/uL (0.00-0.03); Imm Gran Pct Auto 0.6 % (0.0-0.4); Lymphocytes Absolute Auto 1.3 X10*3/uL (1.2-4.9); Lymphocytes Percent Auto 24.5 % (20-40); Mean Corpuscular HGB Conc 32.5 g/dl (31.0-35.0); Mean Corpuscular Hemoglobin 28.3 pg (27.0-33.0); Mean Corpuscular Volume 87.1 fL (80.0-98.0); Mean Platelet Volume 9.8 fL (9.4-12.3); Monocytes Absolute Auto 0.3 X10*3/uL (0.1-1.2); Monocytes Percent Auto 5.2 % (2-11); Neutrophils Absolute Auto 3.5 x10*3/uL (2.0-8.3); Platelet Count 224 X10*3/uL (160-400); Red Blood Count 4.88 X10*6/uL (4.20-5.50); Red Cell Distribution Width 12.9 % (11.0-16.0); White Blood Count 5.4 X10*3/uL (4.8-10.8)
[2023-06-09 13:49] LABS: Estimated Average Glucose 108 mg/dL; Hemoglobin A1c % 5.4 %
[2023-06-09 14:02] LABS: Creatinine Urine 42.28 mg/dL; Microalbum/Creatinine Ratio Ur 14.1 ug/mg cr
[2023-06-09 14:03] LABS: Alanine Aminotransferase 16 U/L (0-31); Anion Gap 15 (12-20); Aspartate Amino Transferase 17 U/L (5-31); Blood Urea Nitrogen 12 mg/dL (9-16); Calcium 9.6 mg/dL (8.4-10.2); Carbon Dioxide 22 mmol/L (22-29); Chloride 106 mmol/L (96-108); Cholesterol 152 mg/dL; Estimated Glomerular Filt Rate > 60; Glucose Fasting 112 mg/dL (60-99); HDL Cholesterol 47 mg/dL; LDL Cholesterol Calculated 64 mg/dl; Potassium 4.3 mmol/L (3.3-5.1); Sodium 139 mmol/L (135-145); Triglycerides 208 mg/dL
[2023-06-09 14:18] LABS: Free T4 (Free Thyroxine) 0.75 ng/dL (0.71-1.85); Thyroid Stimulating Hormone 1.43 uIU/mL (0.32-4.0); Vitamin D 25-OH Total 36.4 ng/mL (>30)
[2023-06-09 14:35] LABS: Folate 12.7 ng/mL (> or = 4.0); Vitamin B12 692 pg/mL (200-900)
[2023-06-14 15:58] LABS: Vitamin B1 15 nmol/L (8-30)
== END 2023-06-09 10:24 | disposition home or self-care (01) ==
LOC: HO.HMGCLDS 10:23
PROVIDERS: PCP Internal Medicine; Visit Provider Internal Medicine
DX: E11.9 Type 2 diabetes mellitus without complications (principal); E03.9 Hypothyroidism, unspecified; E78.5 Hyperlipidemia, unspecified; G62.9 Polyneuropathy, unspecified; I10 Essential (primary) hypertension; Z86.2 Personal history of diseases of the blood and blood-forming organs and certain disorders involving the immune mechanism; Z86.39 Personal history of other endocrine, nutritional and metabolic disease
CPT/HCPCS: 36415; 80048; 80061; 82043; 82306; 82607; 82746; 83036; 84425; 84439; 84443; 84450; 84460; 85025

== ENCOUNTER 2023-06-11 11:21 | Outpatient (AMB) | payer MEDICARE, MEDICAID, SELFPAY ==
--- NOTE | 2023-06-11 11:45 | MHC.PC.OV ---
Vital Signs 06/11/23 12:09 Height 4 ft 10 in Weight 209 lb BMI 43.7 BP 122/70 Blood Pressure Location Lt brachial Position Sitting Pulse 80 Pulse Source Pulse Oximeter Pulse Oximetry (%) 97 Oxygen Delivery Method Room Air Intake Visit Reasons: 3m f/u dm, lipids,thyroid Intake Note: Pt is here to f/u on recent labs including dm, lipids and thyroid. Allergies latex Allergy (Unknown, Verified 06/12/23 02:24) Rash metoclopramide [From Reglan] Adverse Reaction (Unknown, Verified 06/12/23 02:24) Interacts with Seroquel Medication List - Last Reconciled 06/11/23 by Lachelle Guerra MD benztropine 1 mg PO BID blood sugar diagnostic (FreeStyle Lite Strips) three times a day blood-glucose meter (FreeStyle Lite Meter kit) 3 x/day bupropion HCl 100 mg PO QAM [chlorhexidine gluconate ] chlorhexidine gluconate 0.12% 15 mL buccal BID cranberry 450 mg PO DAILY immun glob G(IgG)-gly-IgA ov50 10 gram/100 mL (10 %) 500 mL subcut Q4W immun glob G(IgG)-gly-IgA ov50 10 gram/100 mL (10 %) 450 mL subcut Q4W lancets (FreeStyle Lancets) As directed three time a day levothyroxine (Euthyrox) 75 mcg PO QAM lidocaine 5% 1 appl topical DAILY PRN magnesium oxide 400 mg PO DAILY melatonin 6 mg PO BEDTIME metformin ER 500 mg PO DAILY multivitamin 1 tab PO DAILY omega-3 fatty acids 2,000 mg PO BID oxcarbazepine 300 mg PO BID pantoprazole 40 mg PO DAILY PRN pen needle, diabetic (BD Wendy 2nd Gen Pen Needle) As directed daily polyethylene glycol 3350 17 grams PO DAILY PRN pravastatin 20 mg PO BEDTIME quetiapine 400 mg PO BEDTIME thiamine HCl (vitamin B1) 100 mg PO DAILY trazodone 100 mg PO BEDTIME [wheelchair As directed] Tobacco use date assessed: 06/11/23 Dental Screening Dental Screen Date: 06/11/23 Did you have a dental visit in the last 12 months?: Yes Did you have a dental problem in the last 6 months where you did not have access to dental care?: No Was dental information given to patient?: No HPI 3m f/u dm, lipids,thyroid HPI Details 33-year-old lady here today for follow-up on her diabetes mellitus, dyslipidemia and hypothyroidism. She has been compliant with taking her medications, has been feeling well with no new complaints at present time. Recent fasting labs showed hemoglobin A1c, fasting lipids and thyroid levels are within normal limits and, fasting glucose in the prediabetic range [facility] Medical History Acquired hypothyroidism ARDS (adult respiratory distress syndrome) Bipolar disorder Depot contraception Diabetes mellitus with hyperglycemia DM2 (diabetes mellitus, type 2) Esophagitis with gastritis Essential hypertension Gastric paresis History of anemia History of vitamin D deficiency Hyperlipidemia Hypogammaglobulinemia Muscle weakness Obesity due to excess calories Obesity, morbid, BMI 40.0-49.9 Peripheral neuropathy Pneumonia due to 2019 novel coronavirus Recurrent UTI Tremor of unknown origin Vitamin D deficiency Yeast infection involving the vagina and surrounding area 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 History of surgery (02/09/23) Hx of section Hx of tooth extraction Family History Other Adopted Social History Household Members: Family Household Members Other:: mom, dad and children Housing: House Do you presently have visiting nurse or other home services: Yes Alcohol intake: never Patient Tobacco Use Status: Former Tobacco user Tobacco use type: Cigarette e-Cigarette/Vaping Use: Never Used Second Hand Smoke Exposure: No service: No Current occupational status: disabled Gender identity: Female Cognitive needs: Yes Hearing needs: No Vision needs: Yes Female Reproductive History Menstrual Age of Menarche: 9 Questionnaire Thrive Questionnaire Date Thrive assessed: 02/19/23 AUDIT C Alcohol Use Questionnaire (AUDIT-C) 1. How often do you have a drink containing alcohol?: Monthly or less 2. How many drinks containing alcohol do you have on a typical day when you are drinking?: 1 or 2 3. How often do you have six or more drinks on one occasion?: Never Total Score: 1 TATYANA-7 AMB Questionnaire TATYANA-7 Date TATYANA - 7 assessed: 02/19/23 Source: Developed by Drs. Dionisio Combs, Kinjal Bates, Aditya Bustillo and colleagues, with an educational kennedy from [employer]. Review of Systems Const Denies fatigue and Denies headache(s) Eyes Reports no additional complaints ENT Denies headache(s) and Denies sore throat Card Denies palpitations and Denies dyspnea Resp Denies cough and Denies dyspnea GI Denies constipation and Denies diarrhea Denies urinary frequency and Denies dysuria Musc Denies muscle cramps, Reports muscle weakness (Improving) and Reports tingling Skin/Breast Reports system reviewed and no additional complaints, except as documented Neuro Denies burning sensations, Denies headache(s), Reports tingling and Denies paresthesias Psych Reports no additional complaints Endo Denies fatigue, Reports polydipsia, Reports polyuria and Denies palpitations Aller/Immun Reports no additional complaints Physical exam (Primary Care) Vital Signs: Last Vital Signs Pulse 80 06/11/23 12:09 BP 122/70 06/11/23 12:09 Pulse Ox 97 06/11/23 12:09 Oxygen Delivery Method Room Air 06/11/23 12:09 BMI result Body Mass Index 43.7 BMI Assessment/Plan discussion: High BMI High, discussed plan: lifestyle, weight reduction and dietary Tobacco/Smoking Status: Tobacco use Status Tobacco use date assessed 06/11/23 06/11/23 12:14 Patient Tobacco Use Status Former Tobacco user 06/11/23 11:45 Tobacco use type Cigarette 06/11/23 11:45 e-Cigarette/Vaping Use Never Used 06/11/23 11:45 Thrive Assessment: Date of Thrive Assessment Date Thrive assessed 02/19/23 06/11/23 11:45 Const Other: Patient is wheelchair-bound, alert, oriented x3, accompanied by father, no acute cardiorespiratory distress noted Nutritional Appearance: obese Orientation/consciousness: patient oriented x3 Limitations: wheelchair HENMT Head: Yes normocephalic Ears: external ears normal General nose exam: Normal external nose present and No nasal discharge present Face and sinus: Yes face symmetric Mouth: oropharynx normal and moist mucous membranes Eyes General: appearance normal, both eyes and all related structures Neck Neck: Yes full ROM, Yes no lymphadenopathy and Yes supple Resp Effort & Inspection: normal respiratory effort and able to speak in complete sentences Auscultation: clear to auscultation bilaterally Cardio Rate: regular rate Rhythm: regular rhythm Heart sounds: S1 normal heart sound present and S2 normal heart sound present GI Palpation (GI): Soft to palpation, nontender, no guarding and no masses Auscultation: normal bowel sounds Other: Sees a [facility] General: Yes no CVA tenderness and Yes deferred Back/Spine/Pelvis Back: no CVA tenderness and No back tenderness Skin General skin exam: no rashes or lesions noted Neuro General: patient oriented x3, no focal motor deficits and CN's II-XI intact bilaterally Extrem General: Yes no joint enlargement, Yes no pedal edema and Yes no calf tenderness Results Reviewed Results Reviewed: ENTERED: 06/09/23-1048 RICKI SIN: ORDERED: Met Prof Fast, AST, ALT, Lipid Panel, Vitamin D 25-OH, Free T4, TSH Test Result Flag Reference Site Sodium 139 135-145 mmol/L Potassium 4.3 3.3-5.1 mmol/L CL 106 96-108 mmol/L CO2 22 22-29 mmol/L Gap 15 12-20 BUN 12 9-16 mg/dL Creat 0.85 0.5-1.4 mg/dL EGFR > 60 NOTE: For -[place] individuals, multiply the result by 1.210. Chronic Kidney Disease: Estimated GFR < 60 mL/min/1.73m2 Severe Kidney Disease: Estimated GFR < 15 mL/min/1.73m2 FBS 112 H 60-99 mg/dL A fasting glucose from 100-125 mg/dl is considered impaired (pre-diabetes). CA 9.6 # 8.4-10.2 mg/dL AST (GOT) 17 5-31 U/L ALT (GPT) 16 0-31 U/L Triglyceride 208 mg/dL Desirable Triglyceride: less than 150 mg/dL Borderline High Triglyceride 150-199 mg/dL High Triglyceride: 200-499 mg/dL Very High Triglyceride: greater than or equal to 5OO mg/dL Chol 152 mg/dL Desirable Cholesterol: less than 200 mg/dL Borderline High Cholesterol: 200-239 mg/dL High Cholesterol: greater than 239 mg/dL LDL Calculated 64 mg/dl Desirable LDL: less than 100 mg/dL Near Optimal/Above Optimal LDL: 110-129 mg/dL Borderline High LDL: 130-159 mg/dL High LDL: 160-189 mg/dL Very High LDL: greater than or equal to 190 mg/dL HDL 47 mg/dL Desirable HDL: greater than 40 mg/dL Note: This HDL assay may give artificially low results in patients with liver disease. Vit D 25-OH Tot 36.4 >30 ng/mL Health Based Reference Values* < 20 ng/mL Deficient 20-30 ng/mL Insufficient > 30 ng/mL Sufficient *Robles SAHA. N Engl J Med. 2007;[id number] Care must be taken in interpreting Vitamin D results from different laboratories and methodologies. Published data demonstrated that results from patients undergoing hemodialysis may show a negative bias when tested with various automated 25-OH vitamin D assays when compared to LC-MS/MS. When testing samples from patients whose predominant form of Vitamin D is Vitamin D2, such as patients receiving Vitamin D2 supplementation, results that are subtherapeutic should be confirmed with another method such as LC-MS/MS. Free T4 0.75 0.71-1.85 ng/dL TSH 3rd Gen. 1.43 0.32-4.0 uIU/mL TSH 3rd Generation ([facility]) ENTERED: 06/09/23-10[address] [facility] [address]: ORDERED: CBC Auto Diff Test Result Flag Reference Site WBC 5.4 4.8-10.8 X10*3/uL RBC 4.88 4.20-5.50 X10*6/uL HGB 13.8 12.0-16.0 g/dl HCT 42.5 37.0-47.0 % MCV 87.1 80.0-98.0 fL MCH 28.3 27.0-33.0 pg MCHC 32.5 31.0-35.0 g/dl RDW 12.9 11.0-16.0 % PLT 224 160-400 X10*3/uL Laboratory Tests 02/16/23 06/09/23 11:30 10:48 Estimat Average Glucose 114 108 Hemoglobin A1c % 5.6 5.4 Assessment and Plan Assessment & Plan (1) History of vitamin D deficiency: Code(s): Z86.39 - Personal history of other endocrine, nutritional and metabolic disease Plan: Latest vitamin-D level were within normal limits (2) DM2 (diabetes mellitus, type 2): Code(s): E11.9 - Type 2 diabetes mellitus without complications Qualifiers: Diabetes mellitus long term care social worker insulin use: with long term care social worker use Diabetes mellitus complication status: with other specified complication Qualified Code(s): E11.69 - Type 2 diabetes mellitus with other specified complication; Z79.4 - correction (current) use of insulin Plan: Recent lab results reviewed with patient, with sugar and hemoglobin A1c stable and at goal . continue metformin 500 mg daily at night with supper, continue to check fasting blood sugar at home, maintain log and bring to next appointment for review. Reinforced diabetic diet and regular exercise with patient. Counseled regarding importance of yearly diabetes retinopathy screening. Patient advised to inspect feet daily, for any signs of injury, callus or infection. Compliance with diet and regular exercise again stressed. Blood pressure goal is less than 130/80, goal LDL is less than 100 and goal hemoglobin A1c is less than 7% schedule follow-up/physical exam in 3 months (3) Acquired hypothyroidism: Comment: negative anti TPO antibodies Code(s): E03.9 - Hypothyroidism, unspecified Plan: Continue with current dose of levothyroxine, with latest thyroid levels within normal limits (4) Hyperlipidemia: Code(s): E78.5 - Hyperlipidemia, unspecified Qualifiers: Hyperlipidemia type: mixed hyperlipidemia Qualified Code(s): E78.2 - Mixed hyperlipidemia Plan: Reviewed recent fasting lipid profile with patient with levels within normal limits . Continue with , in addition to adherence to low-cholesterol diet and regular exercise, at least 30 minutes 3 to 4 times a week. Advised patient to make healthy food choices, eat more fruits, vegetables, whole grains, wild caught fish and low-fat dairy. Limit amount of meat and fried or fatty food products, as well as processed foods and fast foods. Follow-up scheduled with repeat fasting lipid panel in months. (5) Essential hypertension: Code(s): I10 - Essential (primary) hypertension Plan: Blood pressure at goal of less than 130/80. Continue with current medication. Reinforced importance of following a low sodium diet, getting regular exercise, and lowering stress levels. Coding Level of Care Code Est Pt Level 4 (00449) Diagnoses History of vitamin D deficiency Z86.39 DM2 (diabetes mellitus, type 2) E11.69; Z79.4 Diabetes mellitus long term care social worker insulin use: with long term care social worker use Diabetes mellitus complication status: with other specified complication Acquired hypothyroidism E03.9 Hyperlipidemia E78.2 Hyperlipidemia type: mixed hyperlipidemia Essential hypertension I10
[2023-06-11 12:09] VITALS: BP 122/70; PULSE 80; O2SAT 97; BMI 43.7
== END 2023-06-11 12:44 | disposition home or self-care (01) ==
PROVIDERS: Visit Provider Internal Medicine
DX: E11.69 Type 2 diabetes mellitus with other specified complication (principal); Z86.39 Personal history of other endocrine, nutritional and metabolic disease; Z79.4 Long term (current) use of insulin; I10 Essential (primary) hypertension; E03.9 Hypothyroidism, unspecified; E78.2 Mixed hyperlipidemia
CPT/HCPCS: 99214

== ENCOUNTER 2023-06-19 10:02 | Outpatient (REF) | payer MEDICARE, MEDICAID, SELFPAY | END 2023-06-19 10:03 | disposition home or self-care (01) | LOC: HO.MDS 10:02 | PROVIDERS: Visit Provider Internal Medicine | DX: G61.0 Guillain-Barre syndrome (principal) | CPT/HCPCS: 96365; 96366; 96375; J1569; J1642; J1940; J2920 ==

== ENCOUNTER 2023-06-20 09:57 | Outpatient (REF) | payer MEDICARE, MEDICAID, SELFPAY | END 2023-06-20 09:58 | disposition home or self-care (01) | LOC: HO.MDS 09:57 | PROVIDERS: Visit Provider Internal Medicine | DX: G61.0 Guillain-Barre syndrome (principal) | CPT/HCPCS: 96365; 96366; 96375; J1200; J1569; J1642; J1940; J2920 ==

== ENCOUNTER 2023-07-24 10:08 | Outpatient (REF) | payer MEDICARE, MEDICAID, SELFPAY | END 2023-07-24 10:09 | disposition home or self-care (01) | LOC: HO.MDS 10:08 | PROVIDERS: Visit Provider Internal Medicine | DX: G61.0 Guillain-Barre syndrome (principal) | CPT/HCPCS: 96365; 96366; 96367; 96375; J1569; J1642; J1940; J2920 ==

== ENCOUNTER 2023-07-25 10:03 | Outpatient (REF) | payer MEDICARE, MEDICAID, SELFPAY | END 2023-07-25 10:04 | disposition home or self-care (01) | LOC: HO.MDS 10:03 | PROVIDERS: Visit Provider Internal Medicine | DX: G61.0 Guillain-Barre syndrome (principal) | CPT/HCPCS: 96365; 96366; 96375; J1569; J1642; J1940; J2920 ==

== ENCOUNTER 2023-08-21 10:35 | Outpatient (REF) | payer MEDICARE, MEDICAID, SELFPAY | END 2023-08-21 10:36 | disposition home or self-care (01) | LOC: HO.MDS 10:35 | PROVIDERS: Visit Provider Internal Medicine | DX: G61.0 Guillain-Barre syndrome (principal) | CPT/HCPCS: 96365; 96366; 96375; J1569; J1642; J1940; J2920 ==

== ENCOUNTER 2023-08-22 11:05 | Outpatient (REF) | payer MEDICARE, MEDICAID, SELFPAY | END 2023-08-22 11:06 | disposition home or self-care (01) | LOC: HO.MDS 11:05 | PROVIDERS: Visit Provider Internal Medicine | DX: G61.0 Guillain-Barre syndrome (principal) | CPT/HCPCS: 96365; 96366; 96367; 96375; J1569; J1642; J1940; J2920 ==

== ENCOUNTER 2023-08-27 12:18 | Outpatient (AMB) | payer MEDICARE, MEDICAID, SELFPAY ==
--- NOTE | 2023-08-27 12:49 | A.OFFPC_ITS ---
Vital Signs 08/27/23 12:53 Height 4 ft 10 in Weight 207 lb BMI 43.3 BP 118/82 Blood Pressure Location Rt brachial Position Sitting Pulse 86 Pulse Source Pulse Oximeter Pulse Oximetry (%) 97 Oxygen Delivery Method Room Air Intake Visit Reasons: PE Intake Note: Pt is here today for her PE Is last menstrual period known: Yes Last menstrual period: 08/23/23 Allergies latex Allergy (Unknown, Verified 08/28/23 03:11) Rash metoclopramide [From Reglan] Adverse Reaction (Unknown, Verified 08/28/23 03:11) Interacts with Seroquel Medication List - Last Reconciled 08/27/23 by Lachelle Guerra MD benztropine 1 mg PO BID blood sugar diagnostic (FreeStyle Lite Strips) three times a day blood-glucose meter (FreeStyle Lite Meter kit) 3 x/day bupropion HCl 100 mg PO QAM chlorhexidine gluconate 0.12% 15 mL buccal BID cranberry 450 mg PO DAILY immun glob G(IgG)-gly-IgA ov50 10 gram/100 mL (10 %) 500 mL subcut Q4W immun glob G(IgG)-gly-IgA ov50 10 gram/100 mL (10 %) 450 mL subcut Q4W lancets (FreeStyle Lancets) As directed three time a day levothyroxine (Euthyrox) 75 mcg PO QAM lidocaine 5% 1 appl topical DAILY PRN magnesium oxide 400 mg PO DAILY melatonin 6 mg PO BEDTIME multivitamin 1 tab PO DAILY omega-3 fatty acids 2,000 mg PO BID oxcarbazepine 150 mg PO BID pantoprazole 40 mg PO DAILY PRN pen needle, diabetic (BD Wendy 2nd Gen Pen Needle) As directed daily polyethylene glycol 3350 17 grams PO DAILY PRN pravastatin 20 mg PO BEDTIME quetiapine 400 mg PO BEDTIME trazodone 100 mg PO BEDTIME [wheelchair As directed] Tobacco use date assessed: 08/27/23 Dental Screening Dental Screen Date: 08/27/23 Did you have a dental visit in the last 12 months?: No Was dental information given to patient?: Patient has dentist HPI PE HPI Details 33 Year old lady with diabetes mellitus, hypothyroidism , Guillain [place] syndrome, hyperlipidemia, and bipolar disorder, here today for her physical exam. She is up-to-date with her cervical cancer screening, last done in 2020 with negative findings. Her diabetes mellitus is well controlled with hemoglobin A1c at 5.4%, and diabetes eye screen. Fasting lipids are within normal limits except for elevated triglycerides. She is currently getting IVIG infusions every month, with improvement in her muscle strength in legs. She is able get up and walk for brief periods of time. Bipolar disorder is currently stable controlled present treatment, sees her psychiatrist and therapist regularly. [facility] Medical History (Updated 09/02/23 @ 18:59 by Lachelle Guerra MD) Acute inflammatory demyelinating polyneuropathy Bipolar disorder Depot contraception Hypogammaglobulinemia ARDS (adult respiratory distress syndrome) Pneumonia due to 2019 novel coronavirus Obesity, morbid, BMI 40.0-49.9 DM2 (diabetes mellitus, type 2) Obesity due to excess calories Gastric paresis Esophagitis with gastritis Acquired hypothyroidism Hyperlipidemia Surgical History History of surgery (02/09/23) Hx of tooth extraction Hx of section Family History Other Adopted Social History Household Members: Family Household Members Other:: mom, dad and children Housing: House Do you presently have visiting nurse or other home services: Yes Alcohol intake: never Patient Tobacco Use Status: Former Tobacco user Tobacco use type: Cigarette e-Cigarette/Vaping Use: Never Used Second Hand Smoke Exposure: No service: No Current occupational status: disabled Gender identity: Female Cognitive needs: Yes Hearing needs: No Vision needs: Yes Female Reproductive History Menstrual Age of Menarche: 9 Date of last menstrual period: 08/23/23 Questionnaire PHQ-9 Over the last 2 weeks, how often have you been bothered by any of the following problems? 1. Little interest or pleasure in doing things: not at all 2. Feeling down, depressed, or hopeless: not at all 3. Trouble falling or staying asleep, or sleeping too much: not at all 4. Feeling tired or having little energy: not at all 5. Poor appetite or overeating: not at all 6. Feeling bad about yourself - or that you are a failure or have let yourself or your family down: not at all 7. Trouble concentrating on things, such as reading the newspaper or watching television: not at all 8. Moving or speaking so slowly that other people could have noticed. Or the opposite - being so fidgety or restless that you have been moving around a lot more than usual: not at all 9. Thoughts that you would be better off or of hurting yourself in some way: not at all Total score: 0 Depression Screening Interpretation: Negative Depression Screening Done: Yes 83514 - PHQ-9 Billing: Yes Source: Developed by Drs. Dionisio Combs, Kinjal Bates, Aditya Bustillo and colleagues, with an educational kennedy from [employer]. Thrive Questionnaire Date Thrive assessed: 02/19/23 AUDIT C Alcohol Use Questionnaire (AUDIT-C) 1. How often do you have a drink containing alcohol?: Never Total Score: 0 TATYANA-7 AMB Questionnaire TATYANA-7 Date TATYANA - 7 assessed: 08/27/23 Feeling nervous, anxious, or on edge: 0 = Not at all Not being able to stop or control worryin = Not at all Worrying too much about different things: 0 = Not at all Trouble relaxin = Not at all Being so restless that it is hard to sit still: 0 = Not at all Becoming easily annoyed or irritable: 0 = Not at all Feeling afraid as if something awful might happen: 0 = Not at all Total TATYANA-7 score (0-4 normal; 5-9 mild; 10-14 moderate; 15-21 severe): 0 Source: Developed by Drs. Dionisio Combs, Kinjal Bates, Aditya Bustillo and colleagues, with an educational kennedy from [employer]. Review of Systems Const Denies body aches, Denies fatigue, Denies fever(s), Denies headache(s) and Denies poor appetite Eyes Reports no additional complaints ENT Reports as per HPI, Denies dysphagia, Denies headache(s), Denies hearing loss, Denies nasal congestion and Denies sore throat Card Denies chest pain, Denies irregular heart rhythm, Denies lightheadedness, Denies palpitations and Denies dyspnea Resp Denies cough and Denies dyspnea GI Denies abdominal pain, Denies melena, Denies hematochezia, Denies constipation, Denies dysphagia, Denies heartburn and Denies diarrhea Denies urinary frequency, Denies difficulty voiding, Denies dysuria and Denies urinary incontinence Musc Reports abnormal gait, Denies muscle cramps and Reports muscle weakness (Improving) Skin/Breast Denies breast pain, Denies breast mass and Denies rash Neuro Reports abnormal gait, Denies burning sensations, Denies headache(s), Reports focal weakness (Lower extremities) and Denies paresthesias Psych Details: Currently followed by psychiatry Reports no additional complaints Endo Denies fatigue and Denies palpitations Randy/Lymph Denies easy bleeding and Denies easy bruising Aller/Immun Reports no additional complaints Physical exam (Primary Care) Vital Signs: Last Vital Signs Pulse 86 08/27/23 12:53 BP 118/82 08/27/23 12:53 Pulse Ox 97 08/27/23 12:53 Oxygen Delivery Method Room Air 08/27/23 12:53 BMI result Body Mass Index 43.3 BMI Assessment/Plan discussion: High BMI High, discussed plan: lifestyle, weight reduction and dietary Tobacco/Smoking Status: Tobacco use Status Tobacco use date assessed 08/27/23 08/27/23 13:00 Patient Tobacco Use Status Former Tobacco user 08/27/23 12:50 Tobacco use type Cigarette 08/27/23 12:50 e-Cigarette/Vaping Use Never Used 08/27/23 12:50 PHQ-9: PHQ-9 Score PHQ-9: Total score 0 08/28/23 03:11 Depression Screening Interpretation: Negative Thrive Assessment: Date of Thrive Assessment Date Thrive assessed 02/19/23 08/27/23 12:50 Const Other: Patient is wheelchair-bound, alert, oriented x3, accompanied by father, no acute cardiorespiratory distress noted Nutritional Appearance: obese Orientation/consciousness: patient oriented x3 Limitations: wheelchair HENMT Head: Yes normocephalic Ears: external ears normal General nose exam: Normal external nose present and No nasal discharge present Face and sinus: Yes face symmetric Mouth: oropharynx normal and moist mucous membranes Eyes General: appearance normal, both eyes and all related structures Neck Neck: Yes full ROM, Yes no lymphadenopathy and Yes supple Chest Other: Port-A-Cath present on right upper chest Breast/axilla inspection: normal inspection of the breasts Breast/axilla palpation: normal palpation of the breasts Resp Effort & Inspection: normal respiratory effort and able to speak in complete sentences Auscultation: clear to auscultation bilaterally Cardio Rate: regular rate Rhythm: regular rhythm Heart sounds: S1 normal heart sound present and S2 normal heart sound present GI Auscultation: normal bowel sounds Other: Sees a [facility] OBGYN General: Yes no CVA tenderness and Yes deferred Back/Spine/Pelvis Back: no CVA tenderness and No back tenderness Skin General skin exam: no rashes or lesions noted Neuro General: patient oriented x3, no focal motor deficits and CN's II-XI intact bilaterally Extrem General: Yes no joint enlargement, Yes no pedal edema and Yes no calf tenderness Psych Appearance: grossly normal and well kempt Mental Status: mental status grossly normal Speech and movement: Normal speech and movement present Affect: normal affect Attitude: cooperative Thought process: Normal thought process present Thought content: Normal thought content present Results AMB Hemoglobin A1c AMB Hemoglobin A1c 5.4 % Last Edit by Earnestine Wu CMA on 08/27/23 13:15 Results Reviewed Results Reviewed: Laboratory Last Values Hgb A1c (Clinic) 5.4 % (4.0-6.0) 08/27/23 13:07 NTERED: 06/09/23-[address]: ORDERED: Met Prof Fast, AST, ALT, Lipid Panel, Vitamin D 25-OH, Free T4, TSH Test Result Flag Reference Site Sodium 139 135-145 mmol/L Potassium 4.3 3.3-5.1 mmol/L CL 106 96-108 mmol/L CO2 22 22-29 mmol/L Gap 15 12-20 BUN 12 9-16 mg/dL Creat 0.85 0.5-1.4 mg/dL EGFR > 60 NOTE: For -[place] individuals, multiply the result by 1.210. Chronic Kidney Disease: Estimated GFR < 60 mL/min/1.73m2 Severe Kidney Disease: Estimated GFR < 15 mL/min/1.73m2 FBS 112 H 60-99 mg/dL A fasting glucose from 100-125 mg/dl is considered impaired (pre-diabetes). CA 9.6 # 8.4-10.2 mg/dL AST (GOT) 17 5-31 U/L ALT (GPT) 16 0-31 U/L Triglyceride 208 mg/dL Desirable Triglyceride: less than 150 mg/dL Borderline High Triglyceride 150-199 mg/dL High Triglyceride: 200-499 mg/dL Very High Triglyceride: greater than or equal to 5OO mg/dL Chol 152 mg/dL Desirable Cholesterol: less than 200 mg/dL Borderline High Cholesterol: 200-239 mg/dL High Cholesterol: greater than 239 mg/dL LDL Calculated 64 mg/dl Desirable LDL: less than 100 mg/dL Near Optimal/Above Optimal LDL: 110-129 mg/dL Borderline High LDL: 130-159 mg/dL High LDL: 160-189 mg/dL Very High LDL: greater than or equal to 190 mg/dL HDL 47 mg/dL Desirable HDL: greater than 40 mg/dL Note: This HDL assay may give artificially low results in patients with liver disease. Vit D 25-OH Tot 36.4 >30 ng/mL Health Based Reference Values* < 20 ng/mL Deficient 20-30 ng/mL Insufficient > 30 ng/mL Sufficient *Robles SAHA. N Engl J Med. 2007;[id number]:266-280 Care must be taken in interpreting Vitamin D results from different laboratories and methodologies. Published data demonstrated that results from patients undergoing hemodialysis may show a negative bias when tested with various automated 25-OH vitamin D assays when compared to LC-MS/MS. When testing samples from patients whose predominant form of Vitamin D is Vitamin D2, such as patients receiving Vitamin D2 supplementation, results that are subtherapeutic should be confirmed with another method such as LC-MS/MS. Free T4 0.75 0.71-1.85 ng/dL TSH 3rd Gen. 1.43 0.32-4.0 uIU/mL TSH 3rd Generation ([facility]) ENTERED: 06/09/23-1048 HR SIN: ORDERED: CBC Auto Diff Test Result Flag Reference Site WBC 5.4 4.8-10.8 X10*3/uL RBC 4.88 4.20-5.50 X10*6/uL HGB 13.8 12.0-16.0 g/dl HCT 42.5 37.0-47.0 % MCV 87.1 80.0-98.0 fL MCH 28.3 27.0-33.0 pg MCHC 32.5 31.0-35.0 g/dl RDW 12.9 11.0-16.0 % PLT 224 160-400 X10*3/uL Assessment and Plan Assessment & Plan (1) Annual visit for general adult medical examination with abnormal findings: Code(s): Z00.01 - Encounter for general adult medical examination with abnormal findings Plan: Will check appropriate labs. Recommended dental visit every 6 months and regular eye exams, at least every 2 years. Instructed to do self-breast exam, and recommended to get yearly mammogram, starting at age 40. Up-to-date with her routine Pap and pelvic exam, sees OBGYN. She has had 2 COVID vaccines in the past and has received her pneumonia vaccine and Tdap. Has been advised by her neurologist to not get the new COVID booster or flu shot at present time. (2) Esophagitis with gastritis: Comment: noted on EGD done by Dr. Pitts Code(s): K29.70 - Gastritis, unspecified, without bleeding; K20.90 - Esophagitis, unspecified without bleeding (3) Acute inflammatory demyelinating polyneuropathy: Comment: Or Guillain [place] syndrome, 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 Code(s): G61.0 - Guillain-[place] syndrome Plan: Currently controlled and improving with monthly immunoglobulin infusions currently followed by [facility] (4) DM2 (diabetes mellitus, type 2): Code(s): E11.9 - Type 2 diabetes mellitus without complications Qualifiers: Diabetes mellitus complication status: with other specified complication Diabetes mellitus terminal operator insulin use: with terminal operator use Qualified Code(s): E11.69 - Type 2 diabetes mellitus with other specified complication; 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 (6) Bipolar disorder: Code(s): F31.9 - Bipolar disorder, unspecified Qualifiers: Active/Remission status: remission status unspecified Qualified Code(s): F31.9 - Bipolar disorder, unspecified Plan: Currently followed by psychiatry and stable /controlled with present treatment (7) Hyperlipidemia: Code(s): E78.5 - Hyperlipidemia, unspecified Qualifiers: Hyperlipidemia type: mixed hyperlipidemia Qualified Code(s): E78.2 - Mixed hyperlipidemia Plan: Reviewed recent fasting lipid profile with patient with levels within normal limits except for elevated triglycerides . Continue with pravastatin 20 mg at bedtime and [place] 3 fatty acid supplements , in addition to adherence to low- cholesterol diet and regular exercise, at least 30 minutes 3 to 4 times a week. Advised patient to make healthy food choices, eat more fruits, vegetables, whole grains, wild caught fish and low-fat dairy. Limit amount of meat and fried or fatty food products, as well as processed foods and fast foods. Orders: Orders Lipid Panel 08/27/23 E03.9 - Hypothyroidism, unspecified, E11.9 - Type 2 diabetes mellitus without complications, E78.5 - Hyperlipidemia, unspecified, F31.9 - Bipolar disorder, unspecified, G61.0 - Guillain-[place] syndrome, I10 - Essential (primary) hypertension Thyroid Stimulating Hormone 08/27/23 E03.9 - Hypothyroidism, unspecified, E11.9 - Type 2 diabetes mellitus without complications, E78.5 - Hyperlipidemia, unspecified, F31.9 - Bipolar disorder, unspecified, G61.0 - Guillain-[place] syndrome, I10 - Essential (primary) hypertension Vitamin D 25-OH Total 08/27/23 E03.9 - Hypothyroidism, unspecified, E11.9 - Type 2 diabetes mellitus without complications, E78.5 - Hyperlipidemia, unspecified, F31.9 - Bipolar disorder, unspecified, G61.0 - Guillain-[place] syndrome, I10 - Essential (primary) hypertension AMB Hemoglobin A1c 08/27/23 E11.9 - Type 2 diabetes mellitus without complications Aspartate Amino Transferase 08/27/23 E03.9 - Hypothyroidism, unspecified, E11.9 - Type 2 diabetes mellitus without complications, E78.5 - Hyperlipidemia, unspecified, F31.9 - Bipolar disorder, unspecified, G61.0 - Guillain-[place] syndrome, I10 - Essential (primary) hypertension Alanine Aminotransferase 08/27/23 E03.9 - Hypothyroidism, unspecified, E11.9 - Type 2 diabetes mellitus without complications, E78.5 - Hyperlipidemia, unspecified, F31.9 - Bipolar disorder, unspecified, G61.0 - Guillain-[place] syndrome, I10 - Essential (primary) hypertension Basic Metabolic Panel Fasting 08/27/23 E03.9 - Hypothyroidism, unspecified, E11.9 - Type 2 diabetes mellitus without complications, E78.5 - Hyperlipidemia, unspecified, F31.9 - Bipolar disorder, unspecified, G61.0 - Guillain-[place] syndrome, I10 - Essential (primary) hypertension Microalbumin, Random (w Creat) 08/27/23 E03.9 - Hypothyroidism, unspecified, E11.9 - Type 2 diabetes mellitus without complications, E78.5 - Hyperlipidemia, unspecified, F31.9 - Bipolar disorder, unspecified, G61.0 - Guillain-[place] syndrome, I10 - Essential (primary) hypertension Vitamin B12 and Folate 08/27/23 E03.9 - Hypothyroidism, unspecified, E11.9 - Type 2 diabetes mellitus without complications, E78.5 - Hyperlipidemia, unspecified, F31.9 - Bipolar disorder, unspecified, G61.0 - Guillain-[place] syndrome, I10 - Essential (primary) hypertension Coding Level of Care Code [facility] [id number]) Diagnoses Annual visit for general adult medical examination with abnormal findings Z00.01 Esophagitis with gastritis K29.70; K20.90 Acute inflammatory demyelinating polyneuropathy G61.0 Type 2 diabetes mellitus with other specified complication, with long-term current use of insulin E11.69; Z79.4 Diabetes mellitus complication status: with other specified complication Diabetes mellitus terminal operator insulin use: with shelter use Acquired hypothyroidism E03.9 Bipolar affective disorder, remission status unspecified F31.9 Active/Remission status: remission status unspecified Mixed hyperlipidemia E78.2 Hyperlipidemia type: mixed hyperlipidemia
[2023-08-27 12:53] VITALS: BP 118/82; PULSE 86; O2SAT 97; BMI 43.3
== END 2023-08-27 13:36 | disposition home or self-care (01) ==
PROVIDERS: Visit Provider Internal Medicine
DX: E11.9 Type 2 diabetes mellitus without complications (principal)
CPT/HCPCS: 83036; 99395

== ENCOUNTER 2023-09-18 10:29 | Outpatient (REF) | payer MEDICARE, MEDICAID, SELFPAY | END 2023-09-18 10:30 | disposition home or self-care (01) | LOC: HO.MDS 10:29 | PROVIDERS: Visit Provider Internal Medicine | DX: G61.0 Guillain-Barre syndrome (principal) | CPT/HCPCS: 96365; 96366; 96375; J1569; J1642; J1940; J2920 ==

== ENCOUNTER 2023-09-19 10:34 | Outpatient (REF) | payer MEDICARE, MEDICAID, SELFPAY | END 2023-09-19 10:35 | disposition home or self-care (01) | LOC: HO.MDS 10:34 | PROVIDERS: Visit Provider Internal Medicine | DX: G61.0 Guillain-Barre syndrome (principal) | CPT/HCPCS: 96365; 96366; 96375; J1569; J1642; J1940; J2920 ==

== ENCOUNTER 2023-10-16 10:32 | Outpatient (REF) | payer MEDICARE, MEDICAID, SELFPAY | END 2023-10-16 10:33 | disposition home or self-care (01) | LOC: HO.MDS 10:32 | PROVIDERS: Visit Provider Internal Medicine | DX: G61.0 Guillain-Barre syndrome (principal) | CPT/HCPCS: 96365; 96366; 96375; J1569; J1642; J1940; J2920 ==

== ENCOUNTER 2023-10-17 10:31 | Outpatient (REF) | payer MEDICARE, MEDICAID, SELFPAY | END 2023-10-17 10:32 | disposition home or self-care (01) | LOC: HO.MDS 10:31 | PROVIDERS: Visit Provider Internal Medicine | DX: G61.0 Guillain-Barre syndrome (principal) | CPT/HCPCS: 96365; 96366; 96372; 96375; J1569; J1642; J1940; J2920 ==

== ENCOUNTER 2023-11-13 10:33 | Outpatient (REF) | payer MEDICARE, MEDICAID, SELFPAY | END 2023-11-13 10:34 | disposition home or self-care (01) | LOC: HO.MDS 10:33 | PROVIDERS: Visit Provider Internal Medicine | DX: G61.0 Guillain-Barre syndrome (principal) | CPT/HCPCS: 96365; 96366; 96375; J1569; J1642; J1940; J2920 ==

== ENCOUNTER 2023-11-14 10:31 | Outpatient (REF) | payer MEDICARE, MEDICAID, SELFPAY | END 2023-11-14 10:32 | disposition home or self-care (01) | LOC: HO.MDS 10:31 | PROVIDERS: Visit Provider Internal Medicine | DX: G61.0 Guillain-Barre syndrome (principal) | CPT/HCPCS: 96365; 96366; 96368; 96372; J1569; J1642; J1940; J2920 ==

== ENCOUNTER 2023-12-11 10:38 | Outpatient (REF) | payer MEDICARE, MEDICAID, SELFPAY | END 2023-12-11 10:39 | disposition home or self-care (01) | LOC: HO.MDS 10:38 | PROVIDERS: Visit Provider Internal Medicine | DX: G61.0 Guillain-Barre syndrome (principal); D80.1 Nonfamilial hypogammaglobulinemia | CPT/HCPCS: 96365; 96366; 96375; J1569; J1642; J1940; J2920 ==

== ENCOUNTER 2023-12-12 10:30 | Outpatient (REF) | payer MEDICARE, MEDICAID, SELFPAY | END 2023-12-12 10:31 | disposition home or self-care (01) | LOC: HO.MDS 10:30 | PROVIDERS: Visit Provider Internal Medicine | DX: G61.0 Guillain-Barre syndrome (principal) | CPT/HCPCS: 96365; 96366; 96375; J1569; J1642; J1940; J2930 ==

== ENCOUNTER 2024-01-08 10:34 | Outpatient (REF) | payer MEDICARE, MEDICAID, SELFPAY ==
[2024-01-08] VITALS (11 sets, daily range): BP systolic 97–123; BP diastolic 64–76; PULSE 66–88; RESP 16–20; O2SAT 96; BMI 37.1
[2024-01-08] MEDS: diphenhydrAMINE HCL 25 MG CAPSULE PO (11:00)
[2024-01-08] MEDS: Acetaminophen 325 MG TABLET 650 MG PO (11:00)
[2024-01-08] MEDS: Furosemide 40 MG/4 ML VIAL 20 MG IVPUSH (11:48)
[2024-01-08] MEDS: methylPREDNISolone Sod Succ 40 MG/ML VIAL IVPUSH (11:52)
[2024-01-08] MEDS: Dextrose 5 % 500 ML 100 ML IV (11:55)
[2024-01-08] MEDS: Immun Glob G(IgG)/Gly/IGA Ov50 200 ML IV (12:42)
[2024-01-08] MEDS: Immun Glob G(IgG)/Gly/IGA Ov50 300 ML IV (14:30)
== END 2024-01-08 10:35 | disposition home or self-care (01) ==
LOC: HO.MDS 10:34
PROVIDERS: Visit Provider Internal Medicine
DX: G61.0 Guillain-Barre syndrome (principal)
CPT/HCPCS: 96365; 96366; 96375; J1569; J1642; J1940; J2920

== ENCOUNTER 2024-01-09 10:26 | Outpatient (REF) | payer MEDICARE, MEDICAID, SELFPAY ==
[2024-01-09] VITALS (14 sets, daily range): BP systolic 99–125; BP diastolic 43–82; PULSE 73–92; RESP 18; TEMP 36.6; O2SAT 95; BMI 41.0
[2024-01-09] MEDS: Furosemide 20 MG/2 ML VIAL IVPUSH (11:10)
[2024-01-09] MEDS: diphenhydrAMINE HCL 25 MG CAPSULE PO (11:10)
[2024-01-09] MEDS: methylPREDNISolone Sod Succ 40 MG/ML VIAL IVPUSH (11:20)
[2024-01-09] MEDS: Dextrose 5 % 1,000 ML 100 ML IVCONT (11:25)
[2024-01-09] MEDS: Immun Glob G(IgG)/Gly/IGA Ov50 200 ML IV (11:32)
[2024-01-09] MEDS: Acetaminophen 325 MG TABLET 650 MG PO (11:56)
[2024-01-09] MEDS: Immun Glob G(IgG)/Gly/IGA Ov50 300 ML IV (14:03)
== END 2024-01-09 10:27 | disposition home or self-care (01) ==
LOC: HO.MDS 10:26
PROVIDERS: Visit Provider Internal Medicine
DX: G61.0 Guillain-Barre syndrome (principal)
CPT/HCPCS: 96365; 96366; 96375; J1569; J1642; J1940; J2920

== ENCOUNTER 2024-02-05 10:35 | Outpatient (REF) | payer MEDICARE, MEDICAID, SELFPAY ==
[2024-02-05] VITALS (10 sets, daily range): BP systolic 112–137; BP diastolic 62–94; PULSE 71–87; RESP 18–20; TEMP 36.5; O2SAT 97
[2024-02-05] MEDS: Acetaminophen 325 MG TABLET 650 MG PO (11:12)
[2024-02-05] MEDS: diphenhydrAMINE HCL 25 MG CAPSULE PO (11:13)
[2024-02-05] MEDS: Dextrose 5 % 1,000 ML 100 ML IVCONT (11:15)
[2024-02-05] MEDS: methylPREDNISolone Sod Succ 40 MG/ML VIAL IVPUSH (11:18)
[2024-02-05] MEDS: Furosemide 20 MG/2 ML VIAL IVPUSH (11:20)
--- NOTE | 2024-02-05 11:30 | PC.NURSE ---
after approx 50 mls of d5 infused, without alarms on infusion pump, lump noted on pt's chest around port access site. pt states there is mild tenderness on palp. infusion stopped. dr montgomery made aware.
--- NOTE | 2024-02-05 12:30 | PC.NURSE ---
dr montgomery at bedside assessing port site. site lump still present though slightly reduced since first noticed. pt denies complaint at rest; mildly tender to light palp. skin around port site wpd, no noted bruising. dr montgomery discussing possible port assessment with IR with pt.
[2024-02-05] MEDS: Immun Glob G(IgG)/Gly/IGA Ov50 200 ML IV (13:04)
[2024-02-05] MEDS: Immun Glob G(IgG)/Gly/IGA Ov50 300 ML IV (14:45)
== END 2024-02-05 10:36 | disposition home or self-care (01) ==
LOC: HO.MDS 10:35
PROVIDERS: Visit Provider Internal Medicine
DX: G61.0 Guillain-Barre syndrome (principal)
CPT/HCPCS: 96361; 96365; 96366; 96375; J1569; J1940; J2920

== ENCOUNTER 2024-02-06 10:27 | Outpatient (REF) | payer MEDICARE, MEDICAID, SELFPAY ==
[2024-02-06] VITALS (10 sets, daily range): BP systolic 104–134; BP diastolic 67–87; PULSE 69–86; RESP 16–20; TEMP 36.6; O2SAT 96
[2024-02-06] MEDS: diphenhydrAMINE HCL 25 MG CAPSULE PO (10:53)
[2024-02-06] MEDS: Acetaminophen 325 MG TABLET 650 MG PO (10:53)
[2024-02-06] MEDS: methylPREDNISolone Sod Succ 40 MG/ML VIAL IVPUSH (10:55)
[2024-02-06] MEDS: Furosemide 20 MG/2 ML VIAL IVPUSH (11:02)
[2024-02-06] MEDS: Dextrose 5 % 1,000 ML 100 ML IVCONT (11:05)
[2024-02-06] MEDS: Immun Glob G(IgG)/Gly/IGA Ov50 200 ML IV (11:56)
[2024-02-06] MEDS: Immun Glob G(IgG)/Gly/IGA Ov50 300 ML IV (13:45)
== END 2024-02-06 10:28 | disposition home or self-care (01) ==
LOC: HO.MDS 10:27
PROVIDERS: Visit Provider Internal Medicine
DX: G61.0 Guillain-Barre syndrome (principal)
CPT/HCPCS: 96365; 96366; 96375; J1569; J1940; J2920

== ENCOUNTER 2024-02-08 12:40 | Outpatient (REF) | payer MEDICARE, MEDICAID, SELFPAY ==
--- NOTE | ~2024-02-08 | FL_ITS ---
EXAMINATION: XR PORT INJECTION WITH RADIOLOGICAL SUPERVISION AND INTERPRETATION CLINICAL INFORMATION: Port not flushing COMPARISON: Fluoroscopic port study April 2023 TECHNIQUE: The right chest wall port was accessed by the radiology physician assisted living assistant. After confirming patency, 10 mL of Omnipaque 300 was injected through the port and multiple spot images and cine loops were obtained. FINDINGS: A single lumen there is retrograde port is present in the medial right chest wall. The catheter tip has severely retracted and is currently in the very distal right innominate vein, just below the at the right subclavian/right internal jugular vein confluence. There is no extravasation of contrast into the right chest wall. A fibrin sheath is visible. There is retrograde filling of the right subclavian and right internal jugular vein that correlates with the patient's discomfort. FL/FL cva device check w fluoro IMPRESSION: 1. No extravasation of contrast in the port and into the right chest wall soft tissues 2. Catheter tip is severely retracted and is currently position in the distal right brachiocephalic vein 3. There is retrograde filling of the right subclavian and right internal jugular vein that correlates with the patient's discomfort during the injection. This procedure was performed by Flavio Kwok PA-C, and directly supervised by Dr. Leon
== END 2024-02-08 12:41 | disposition home or self-care (01) ==
LOC: HO.XRAY 12:40
PROVIDERS: PCP Internal Medicine; Visit Provider Surgery
DX: Z95.828 Presence of other vascular implants and grafts (principal)
CPT/HCPCS: 36598

== ENCOUNTER → 2024-02-08 12:42 | Outpatient (BNV) | payer MEDICARE, MEDICAID, SELFPAY | PROVIDERS: PCP Internal Medicine; Visit Provider Physician Assistant Surgical | DX: Z95.828 Presence of other vascular implants and grafts (principal) | CPT/HCPCS: 36598 ==

== ENCOUNTER 2024-02-19 10:53 | Outpatient (REF) | payer MEDICARE, MEDICAID, SELFPAY ==
[2024-02-19 14:09] LABS: Alanine Aminotransferase 14 U/L (0-31); Anion Gap 9 (12-20); Aspartate Amino Transferase 17 U/L (5-31); Blood Urea Nitrogen 15 mg/dL (9-16); Calcium 8.9 mg/dL (8.4-10.2); Carbon Dioxide 25 mmol/L (22-29); Chloride 110 mmol/L (96-108); Cholesterol 128 mg/dL (<200); Estimated Glomerular Filt Rate > 60; Glucose Fasting 91 mg/dL (60-99); HDL Cholesterol 48 mg/dL (>40); LDL Cholesterol Calculated 54 mg/dL (<100); Sodium 140 mmol/L (135-145); Triglycerides 132 mg/dL (<150)
[2024-02-19 14:13] LABS: Thyroid Stimulating Hormone 2.73 uIU/mL (0.32-4.0); Vitamin D 25-OH Total 21.1 ng/mL (>30)
[2024-02-19 14:29] LABS: Folate 8.3 ng/mL (> or = 4.0); Vitamin B12 381 pg/mL (200-900)
== END 2024-02-19 10:54 | disposition home or self-care (01) ==
LOC: HO.HMGCLDS 10:53
PROVIDERS: PCP Internal Medicine; Visit Provider Internal Medicine
DX: E11.9 Type 2 diabetes mellitus without complications (principal); G61.0 Guillain-Barre syndrome; E03.9 Hypothyroidism, unspecified; F31.9 Bipolar disorder, unspecified; E78.5 Hyperlipidemia, unspecified; I10 Essential (primary) hypertension
CPT/HCPCS: 36415; 80048; 80061; 82306; 82607; 82746; 84443; 84450; 84460

== ENCOUNTER 2024-02-21 10:45 | Outpatient (REF) | payer MEDICARE, MEDICAID, SELFPAY ==
[2024-02-21 14:03] LABS: Creatinine Urine 36.74 mg/dL; Microalbumin Urine < 5.0 mg/L
== END 2024-02-21 10:46 | disposition home or self-care (01) ==
LOC: HO.HMGCLNP 10:45
PROVIDERS: PCP Internal Medicine; Visit Provider Internal Medicine
DX: E11.9 Type 2 diabetes mellitus without complications (principal); G61.0 Guillain-Barre syndrome; E03.9 Hypothyroidism, unspecified; F31.9 Bipolar disorder, unspecified; E78.5 Hyperlipidemia, unspecified; I10 Essential (primary) hypertension
CPT/HCPCS: 82043; 82570

== ENCOUNTER 2024-02-26 09:09 | Outpatient (AMB) | payer MEDICARE, MEDICAID, SELFPAY ==
--- NOTE | 2024-02-26 09:10 | MHC.PC.OV ---
Vital Signs 02/26/24 09:17 BMI Reason not done Patient refused/unable BP 100/62 Blood Pressure Location Rt brachial Position Sitting Pulse 79 Pulse Source Pulse Oximeter Pulse Oximetry (%) 97 Oxygen Delivery Method Room Air Intake Visit Reasons: 5 m0. f/u Intake Note: Pt is here today for her 5 months f/u Allergies latex Allergy (Unknown, Verified 02/26/24 09:31) Rash metoclopramide [From Reglan] Adverse Reaction (Unknown, Verified 02/26/24 09:31) Interacts with Seroquel Medication List - Last Reconciled 02/26/24 by Lachelle Guerra MD benztropine 1 mg PO BID blood sugar diagnostic (FreeStyle Lite Strips) three times a day blood-glucose meter (FreeStyle Lite Meter kit) 3 x/day bupropion HCl SR 100 mg PO QAM chlorhexidine gluconate 0.12% 15 mL buccal BID cranberry 450 mg PO DAILY immun glob G(IgG)-gly-IgA ov50 10 gram/100 mL (10 %) 500 mL subcut Q4W immun glob G(IgG)-gly-IgA ov50 10 gram/100 mL (10 %) 450 mL subcut Q4W lancets (FreeStyle Lancets) As directed three time a day levothyroxine (Euthyrox) 75 mcg PO QAM lidocaine 5% 1 appl topical DAILY PRN magnesium oxide 400 mg PO DAILY melatonin 6 mg PO BEDTIME multivitamin 1 tab PO DAILY omega-3 fatty acids 2,000 mg PO BID oxcarbazepine 150 mg PO BID pantoprazole 40 mg PO DAILY PRN pen needle, diabetic (BD Wendy 2nd Gen Pen Needle) As directed daily polyethylene glycol 3350 17 grams PO DAILY PRN pravastatin 20 mg PO BEDTIME quetiapine 400 mg PO BEDTIME trazodone 100 mg PO BEDTIME [wheelchair As directed] Tobacco use date assessed: 02/26/24 Dental Screening Dental Screen Date: 02/26/24 Did you have a dental visit in the last 12 months?: No Was dental information given to patient?: Patient has dentist HPI 5 m0. f/u HPI Details 34-year-old lady with history diabetes mellitus, hypothyroidism , Guillain [place] syndrome, hyperlipidemia, and bipolar disorder, here today for her follow-up visit she is still getting regular IV immunoglobulin infusion, as prescribed by her neurologist at [facility]. Still has decreased sensation from her knee down and gets occasional numbness and tingling in fingers and feet. Has already finished physical therapy, now ambulates with a walker. She has been compliant with taking her medications, and has been following recommended diet. Her most recent fasting labs showed diabetes mellitus well controlled without any medication with hemoglobin A1c today at 5.4%. Her fasting lipids are within normal limits but vitamin-D is low at 21 ng/mL [facility] Medical History (Updated 02/26/24 @ 09:59 by Lachelle Guerra MD) Controlled diabetes mellitus type II without complication Acute inflammatory demyelinating polyneuropathy Bipolar disorder Hypogammaglobulinemia ARDS (adult respiratory distress syndrome) Pneumonia due to 2019 novel coronavirus Obesity, morbid, BMI 40.0-49.9 Obesity due to excess calories Gastric paresis Esophagitis with gastritis Acquired hypothyroidism Hyperlipidemia Surgical History History of surgery (02/09/23) Hx of tooth extraction Hx of section Family History Other Adopted Social History Household Members: Family Household Members Other:: mom, dad and children Housing: House Do you presently have visiting nurse or other home services: Yes Alcohol intake: never Comment: 1:1 sitter Patient Tobacco Use Status: Former Tobacco user Tobacco use type: Cigarette e-Cigarette/Vaping Use: Never Used Second Hand Smoke Exposure: No service: No Current occupational status: disabled Gender identity: Female Cognitive needs: Yes Hearing needs: No Vision needs: Yes Female Reproductive History Menstrual Age of Menarche: 9 Questionnaire PHQ-9 Over the last 2 weeks, how often have you been bothered by any of the following problems? 1. Little interest or pleasure in doing things: not at all 2. Feeling down, depressed, or hopeless: not at all 3. Trouble falling or staying asleep, or sleeping too much: not at all 4. Feeling tired or having little energy: not at all 5. Poor appetite or overeating: not at all 6. Feeling bad about yourself - or that you are a failure or have let yourself or your family down: not at all 7. Trouble concentrating on things, such as reading the newspaper or watching television: not at all 8. Moving or speaking so slowly that other people could have noticed. Or the opposite - being so fidgety or restless that you have been moving around a lot more than usual: not at all 9. Thoughts that you would be better off or of hurting yourself in some way: not at all Total score: 0 Depression Screening Interpretation: Negative (Currently being seen by psychiatrist, doing better on current medication) Depression Screening Done: No 36151 - PHQ-9 Billing: Yes Source: Developed by Drs. Dionisio Combs, Kinjal Bates, Aditya Bustillo and colleagues, with an educational kennedy from [employer]. Thrive Questionnaire Date Thrive assessed: 02/26/24 I am a: Patient What is your living situation today?: I have a steady place to live Within the past 12 months, did the food you bought not last and you didn't have the money to get more?: Never true Within the past 12 months, did you worry whether your food would run out before you got money to buy more?: Never true Do you have trouble paying for medicines?: No Do you have trouble getting transportation to medical appointments?: No Do you have trouble paying your heating and electricity bill?: No Do you have trouble taking care of your child, family member or friend?: No Do you have trouble with day-to-day activities such as bathing, preparing meals, shopping, managing finances, etc.?: No Are you currently unemployed and looking for a job?: No Are you interested in more education?: No THRIVE Score: 0 AUDIT C Alcohol Use Questionnaire (AUDIT-C) 1. How often do you have a drink containing alcohol?: Never Total Score: 0 TATYANA-7 AMB Questionnaire TATYANA-7 Date TATYANA - 7 assessed: 02/26/24 Feeling nervous, anxious, or on edge: 0 = Not at all Not being able to stop or control worryin = Not at all Worrying too much about different things: 0 = Not at all Trouble relaxin = Not at all Being so restless that it is hard to sit still: 0 = Not at all Becoming easily annoyed or irritable: 0 = Not at all Feeling afraid as if something awful might happen: 0 = Not at all Total TATYANA-7 score (0-4 normal; 5-9 mild; 10-14 moderate; 15-21 severe): 0 Source: Developed by Drs. Dionisio Combs, Kinjal Bates, Aditya Bustillo and colleagues, with an educational kennedy from [employer]. TATYANA-7 Assessment Billing TATYANA-7 Assessment Tool: TATYANA-7 Assessment 41308 Review of Systems Const Denies body aches, Denies fever(s), Denies headache(s) and Denies poor appetite Eyes Details: Goes to [facility] for her yearly diabetes retinopathy screening, copy of last consult report requested Reports no additional complaints ENT Denies dysphagia, Denies headache(s), Denies hearing loss, Denies nasal congestion and Denies sore throat Card Denies chest pain, Denies irregular heart rhythm, Denies lightheadedness, Denies palpitations and Denies dyspnea Resp Denies cough and Denies dyspnea GI Denies abdominal pain, Denies melena, Denies hematochezia, Denies dysphagia and Denies heartburn Denies urinary frequency, Denies difficulty voiding, Denies dysuria and Denies urinary incontinence Musc Reports abnormal gait, Denies muscle cramps and Reports muscle weakness (Improving) Skin/Breast Denies breast pain, Denies breast mass and Denies rash Neuro Details: Currently under the care of [facility], gets monthly infusions for IVIG Reports abnormal gait, Denies burning sensations, Denies headache(s) and Reports focal weakness (Lower extremities) Psych Details: Currently followed by psychiatry Reports no additional complaints Endo Denies palpitations Randy/Lymph Denies easy bleeding and Denies easy bruising Aller/Immun Reports no additional complaints Physical exam (Primary Care) Vital Signs: Last Vital Signs Pulse 79 02/26/24 09:17 BP 100/62 02/26/24 09:17 Pulse Ox 97 02/26/24 09:17 Oxygen Delivery Method Room Air 02/26/24 09:17 BMI Assessment/Plan discussion: High BMI High, discussed plan: lifestyle, weight reduction and dietary Tobacco/Smoking Status: Tobacco use Status Tobacco use date assessed 02/26/24 02/26/24 09:19 Patient Tobacco Use Status Former Tobacco user 02/26/24 09:19 Tobacco use type Cigarette 02/26/24 09:19 e-Cigarette/Vaping Use Never Used 02/26/24 09:19 PHQ-9: PHQ-9 Score PHQ-9: Total score 0 02/26/24 09:51 Depression Screening Interpretation: Negative (Currently being seen by psychiatrist, doing better on current medication) Thrive Assessment: Date of Thrive Assessment Date Thrive assessed 02/26/24 02/26/24 09:19 Const Nutritional Appearance: obese Orientation/consciousness: patient oriented x3 HENMT Head: Yes normocephalic Ears: external ears normal General nose exam: Normal external nose present and No nasal discharge present Face and sinus: Yes face symmetric Mouth: oropharynx normal and moist mucous membranes Eyes General: appearance normal, both eyes and all related structures Neck Neck: Yes full ROM, Yes no lymphadenopathy and Yes supple Chest Other: Port-A-Cath present on right upper chest Resp Effort & Inspection: normal respiratory effort and able to speak in complete sentences Auscultation: clear to auscultation bilaterally Cardio Rate: regular rate Rhythm: regular rhythm Heart sounds: S1 normal heart sound present and S2 normal heart sound present GI Palpation (GI): Soft to palpation, nontender, no guarding and no masses Auscultation: normal bowel sounds Other: Sees a C OBGYN General: Yes no CVA tenderness and Yes deferred Back/Spine/Pelvis Back: no CVA tenderness and No back tenderness Skin General skin exam: no rashes or lesions noted Neuro General: patient oriented x3, CN's II-XI intact bilaterally, decrease sensation to monofilament (From below the knee up to toes bilateral) and other (Slight footdrop bilateral) Extrem General: Yes no joint enlargement, Yes no pedal edema and Yes no calf tenderness Psych Appearance: grossly normal and well kempt Mental Status: mental status grossly normal Speech and movement: Normal speech and movement present Affect: normal affect Attitude: cooperative Thought process: Normal thought process present Thought content: Normal thought content present Results AMB Hemoglobin A1c AMB Hemoglobin A1c 5.4 % Last Edit by Earnestine Wu CMA on 02/26/24 09:50 Results Reviewed Results Reviewed: Laboratory Last Values Hgb A1c (Clinic) 5.4 % (4.0-6.0) 02/26/24 09:40 dimitri: Susy Wolf Age/Sex: 34/F : 1990 Unit#: [id number] Attend Dr: Lachelle Guerra MD Re02/19/24 Status: DEP REF Location: [facility] Disch: SPEC : [id number] SHAILESH: 02/19/24 STATUS: COMP REQ : [id number] RECD: 02/19/24-[address]: Lachelle Guerra MD COMP: 02/19/24 ENTERED: 02/19/24-[address] [facility] [address]: ORDERED: Met Prof Fast, AST, ALT, Lipid Panel, Vitamin D 25-OH, TSH Test Result Flag Reference Sodium 140 135-145 mmol/L Potassium 4.0 3.3-5.1 mmol/L CL 110 H 96-108 mmol/L CO2 25 22-29 mmol/L Gap 9 L 12-20 BUN 15 9-16 mg/dL Creat 0.87 0.5-1.4 mg/dL EGFR > 60 NOTE: For -[place]omali individuals, multiply the result by 1.210. Chronic Kidney Disease: Estimated GFR < 60 mL/min/1.73m2 Severe Kidney Disease: Estimated GFR < 15 mL/min/1.73m2 FBS 91 60-99 mg/dL CA 8.9 # 8.4-10.2 mg/dL AST (GOT) 17 5-31 U/L ALT (GPT) 14 0-31 U/L Triglyceride 132 <150 mg/dL Desirable Triglyceride: less than 150 mg/dL Borderline High Triglyceride 150-199 mg/dL High Triglyceride: 200-499 mg/dL Very High Triglyceride: greater than or equal to 5OO mg/dL Cholesterol 128 <200 mg/dL Desirable Cholesterol: less than 200 mg/dL Borderline High Cholesterol: 200-239 mg/dL High Cholesterol: greater than 239 mg/dL LDL Calculated 54 <100 mg/dL Desirable LDL: less than 100 mg/dL Near Optimal/Above Optimal LDL: 110-129 mg/dL Borderline High LDL: 130-159 mg/dL High LDL: 160-189 mg/dL Very High LDL: greater than or equal to 190 mg/dL HDL 48 >40 mg/dL Desirable HDL: greater than 40 mg/dL Note: This HDL assay may give artificially low results in patients with liver disease. Vit D 25-OH Tot 21.1 L >30 ng/mL Health Based Reference Values* < 20 ng/mL Deficient 20-30 ng/mL Insufficient > 30 ng/mL Sufficient *Robles SAHA. N Engl J Med. 2007;357:266-280 Care must be taken in interpreting Vitamin D results from different laboratories and methodologies. Published data demonstrated that results from patients undergoing hemodialysis may show a negative bias when tested with various automated 25-OH vitamin D assays when compared to LC-MS/MS. When testing samples from patients whose predominant form of Vitamin D is Vitamin D2, such as patients receiving Vitamin D2 supplementation, results that are subtherapeutic should be confirmed with another method such as LC-MS/MS. TSH 3rd Gen. 2.73 0.32-4.0 uIU/mL Note: A sustained TSH level above 2.5 uIU/mL may warrant further investigation. TSH 3rd Generation ([facility]) Assessment and Plan Assessment & Plan (1) Hyperlipidemia: Code(s): E78.5 - Hyperlipidemia, unspecified Qualifiers: Hyperlipidemia type: mixed hyperlipidemia Qualified Code(s): E78.2 - Mixed hyperlipidemia Plan: Reviewed recent fasting lipid profile with patient with levels within normal limits . Continue with pravastatin 20 mg at bedtime , in addition to adherence to low-cholesterol diet and regular exercise, at least 30 minutes 3 to 4 times a week. Advised patient to make healthy food choices, eat more fruits, vegetables, whole grains, wild caught fish and low-fat dairy. Limit amount of meat and fried or fatty food products, as well as processed foods and fast foods. Follow-up scheduled with repeat fasting lipid panel in August 2024 (2) Bipolar disorder: Code(s): F31.9 - Bipolar disorder, unspecified Qualifiers: Active/Remission status: remission status unspecified Qualified Code(s): F31.9 - Bipolar disorder, unspecified Plan: Followed by psychiatry (3) Acute inflammatory demyelinating polyneuropathy: Comment: Or Guillain [place] syndrome, 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 Code(s): G61.0 - Guillain-[place] syndrome Plan: Receives immunoglobulin infusions every month, followed by neurology at [facility], copy of latest office visit report requested from November 2023 (4) Acquired hypothyroidism: Comment: negative anti TPO antibodies Code(s): E03.9 - Hypothyroidism, unspecified Plan: Thyroid levels are within normal limits, continue on levothyroxine 75 mcg once a day in a.m. (5) Controlled diabetes mellitus type II without complication: Code(s): E11.9 - Type 2 diabetes mellitus without complications Qualifiers: Diabetes mellitus prison insulin use: without terminal superintendent use Qualified Code(s): E11.9 - Type 2 diabetes mellitus without complications Plan: Currently diet controlled, hemoglobin A1c today is at 5.4%, sees a [facility] for her routine diabetes retinopathy screening Orders: Orders Hemoglobin A1c 08/30/24 E11.9 - Type 2 diabetes mellitus without complications, E78.2 - Mixed hyperlipidemia, F31.9 - Bipolar disorder, unspecified, G61.0 - Guillain-[place] syndrome Microalbumin, Random (w Creat) 08/30/24 E11.9 - Type 2 diabetes mellitus without complications, E78.2 - Mixed hyperlipidemia, F31.9 - Bipolar disorder, unspecified, G61.0 - Guillain-[place] syndrome Vitamin D 25-OH Total 08/30/24 E11.9 - Type 2 diabetes mellitus without complications, E78.2 - Mixed hyperlipidemia, F31.9 - Bipolar disorder, unspecified, G61.0 - Guillain-[place] syndrome Thyroid Stimulating Hormone 08/30/24 E11.9 - Type 2 diabetes mellitus without complications, E78.2 - Mixed hyperlipidemia, F31.9 - Bipolar disorder, unspecified, G61.0 - Guillain-[place] syndrome AMB Hemoglobin A1c Today E11.69 - Type 2 diabetes mellitus with other specified complication, Z79.4 - watermaster (current) use of insulin Comprehensive [place]. Panel Fast 08/30/24 E11.9 - Type 2 diabetes mellitus without complications, E78.2 - Mixed hyperlipidemia, F31.9 - Bipolar disorder, unspecified, G61.0 - Guillain-[place] syndrome Lipid Panel 08/30/24 E11.9 - Type 2 diabetes mellitus without complications, E78.2 - Mixed hyperlipidemia, F31.9 - Bipolar disorder, unspecified, G61.0 - Guillain-[place] syndrome Free T4 (Free Thyroxine) 08/30/24 E11.9 - Type 2 diabetes mellitus without complications, E78.2 - Mixed hyperlipidemia, F31.9 - Bipolar disorder, unspecified, G61.0 - Guillain-[place] syndrome Medications: Refilled levothyroxine (Euthyrox) 75 mcg PO QAM 90 caps 3RF pravastatin 20 mg PO BEDTIME 90 tabs 3RF E11.65 - Type 2 diabetes mellitus with hyperglycemia, E11.9 - Type 2 diabetes mellitus without complications, E78.2 - Mixed hyperlipidemia Coding Level of Care Code Est Pt Level 4 (61744) Diagnoses Mixed hyperlipidemia E78.2 Hyperlipidemia type: mixed hyperlipidemia Bipolar affective disorder, remission status unspecified F31.9 Active/Remission status: remission status unspecified Acute inflammatory demyelinating polyneuropathy G61.0 Acquired hypothyroidism E03.9 Controlled type 2 diabetes mellitus without complication, without long-term current use of insulin E11.9 Diabetes mellitus terminal superintendent insulin use: without prison use Additional Codes TATYANA-7 Assessment Billing - TATYANA-7 Assessment Tool: TATYANA-7 Assessment 08697 ([id number])
[2024-02-26 09:17] VITALS: BP 100/62; PULSE 79; O2SAT 97
== END 2024-02-26 11:46 | disposition home or self-care (01) ==
PROVIDERS: PCP Internal Medicine; Visit Provider Internal Medicine
DX: E11.69 Type 2 diabetes mellitus with other specified complication (principal); Z79.4 Long term (current) use of insulin
CPT/HCPCS: 83036; 99214

== ENCOUNTER 2024-04-09 09:23 | Outpatient (AMB) | payer MEDICARE, MEDICAID, SELFPAY ==
[2024-04-09 09:31] VITALS: BP 122/68; PULSE 77
--- NOTE | 2024-04-09 09:31 | A.OFFVIS_ITS ---
Vital Signs 04/09/24 09:31 Weight 201 lb BP 122/68 Blood Pressure Location Lt brachial Position Sitting Pulse 77 Intake Visit Reasons: ? consult Port-a-cath replacement Intake Note: Patient here to discuss options as port-a-cath has been malfunctioning. Patient gets immunotherapy txt's every 4wks. Patient c/o: port a cath malfunctioned last week it felt like it twisted underneath skin. Quantitative Manager Required: No Accompanied by: Josse father Allergies latex Allergy (Unknown, Verified 04/09/24 09:33) Rash metoclopramide [From Reglan] Adverse Reaction (Unknown, Verified 04/09/24 09:33) Interacts with Seroquel HPI Comments Details: Patient presents with her father. She gets to monthly infusions. Patient had a port placed approximately a year and a half ago for IV access because of extreme peripheral access difficulties.. There have been issues with the port over the last few sessions. Patient presents here for evaluation of port and either revision or replacement. Patient is known to me from the past. Chart was reviewed and patient evaluated [facility] Medical History Controlled diabetes mellitus type II without complication Acute inflammatory demyelinating polyneuropathy Bipolar disorder Hypogammaglobulinemia ARDS (adult respiratory distress syndrome) Pneumonia due to 2019 novel coronavirus Obesity, morbid, BMI 40.0-49.9 Obesity due to excess calories Gastric paresis Esophagitis with gastritis Acquired hypothyroidism Hyperlipidemia Surgical History History of surgery (02/09/23) Hx of tooth extraction Hx of section Family History Other Adopted Social History Household Members: Family Household Members Other:: mom, dad and children Housing: House Do you presently have visiting nurse or other home services: Yes Alcohol intake: never Comment: 1:1 sitter Patient Tobacco Use Status: Former Tobacco user Tobacco use type: Cigarette e-Cigarette/Vaping Use: Never Used Second Hand Smoke Exposure: No service: No Current occupational status: disabled Gender identity: Female Cognitive needs: Yes Hearing needs: No Vision needs: Yes Female Reproductive History Menstrual Age of Menarche: 9 Physical Exam Vital Signs: Last Vital Signs Pulse 77 04/09/24 09:31 BP 122/68 04/09/24 09:31 Const Other: Patient was transported by her father and a wheelchair. Chest Other: Chest breath sounds bilaterally, HS 1 in 2. Right upper chest port. GI Other: Abdomen corpulent, soft, benign Assessment & Plan Assessment & Plan (1) Encounter for care related to Port-a-Cath: Code(s): Z45.2 - Encounter for adjustment and management of vascular access device Category: Medical (2) Encounter for insertion of tunneled central venous catheter (CVC) with port: Code(s): Z45.2 - Encounter for adjustment and management of vascular access device Category: Medical Plan I think the best course of action is to remove the old port and replace it. Risks, benefits, alternatives of port removal and then port placement with fluoroscopy and Doppler ultrasound were reviewed with the patient and her father and included but not limited to bleeding, infection, port tip migration, numbness, pain, scarring, pneumothorax and they wished to proceed. All questions answered. Arrangements were made for this with the next 3 weeks time prior to the patient's next infusion session on Coding Level of Care Code Est Pt Level 5 (51256) Diagnoses Encounter for care related to Port-a-Cath Z45.2 Encounter for insertion of tunneled central venous catheter (CVC) with port Z45.2
== END 2024-04-09 09:48 | disposition home or self-care (01) ==
PROVIDERS: PCP Internal Medicine; Visit Provider Surgery
DX: G61.0 Guillain-Barre syndrome (principal); Z45.2 Encounter for adjustment and management of vascular access device
CPT/HCPCS: 99215

== ENCOUNTER → 2024-04-09 09:23 | Outpatient (BNVA) | payer MEDICARE, MEDICAID, SELFPAY | PROVIDERS: PCP Internal Medicine; Visit Provider Surgery | DX: Z45.2 Encounter for adjustment and management of vascular access device (principal) | CPT/HCPCS: 99212 ==

== ENCOUNTER 2024-04-14 09:57 | Day surgery (SDC) | payer MEDICARE, MEDICAID, SELFPAY ==
--- NOTE | 2024-04-10 09:51 | HO.ANESPROP2 ---
Documented by User: Nury Penaloza NP 04/10/24 09:55 HPI - Anesthesia Eval Consult details Narrative: 34yo F for Port-a-Cath REMOVAL and Insertion s/p port insertion 01/2023 with TIVA Monthly IVIG infusions, poor venous access PMFSH Active Problems Active Problems: All Active Problems Encounter for insertion of tunneled central venous catheter (CVC) with port (Acute) Encounter for care related to Port-a-Cath (Acute) Controlled diabetes mellitus type II without complication (Acute) Acute inflammatory demyelinating polyneuropathy (Acute) History of anemia (Acute) Acquired hypothyroidism (Acute) Bipolar disorder (Acute) Hyperlipidemia (Acute) Past Medical History Medical History Controlled diabetes mellitus type II without complication Acute inflammatory demyelinating polyneuropathy Bipolar disorder Hypogammaglobulinemia ARDS (adult respiratory distress syndrome) Pneumonia due to 2019 novel coronavirus Obesity, morbid, BMI 40.0-49.9 Obesity due to excess calories Gastric paresis Esophagitis with gastritis Acquired hypothyroidism Hyperlipidemia Family History Family History Other Adopted Family history of problems with anesthesia: No Surgical History Surgical History History of surgery (02/09/23) Hx of tooth extraction Hx of section History of Problems with Anesthesia: No Social History Social History Household Members: Family Household Members Other:: mom, dad and children Housing: House Do you presently have visiting nurse or other home services: Yes Alcohol intake: never Comment: 1:1 sitter Patient Tobacco Use Status: Former Tobacco user Tobacco use type: Cigarette e-Cigarette/Vaping Use: Never Used Second Hand Smoke Exposure: No Use of substances other than those prescribed or required for medical reasons: No Are you DNR?: No Advance Directives: No Advance Directives Information Provided: Yes service: No Current occupational status: disabled Gender identity: Female Cognitive needs: Yes Hearing needs: No Vision needs: Yes Meds Allergies Allergy/AdvReac Type Severity Reaction Status Date / Time latex Allergy Unknown Rash Verified 04/09/24 09:33 metoclopramide [From Reglan] AdvReac Unknown Interacts Verified 04/09/24 09:33 with Seroquel Home Medications ?Medication ?Instructions ?Recorded ?Confirmed ?Last Taken ?Type bupropion HCl 100 mg tablet,12 hr 100 mg PO QAM 11/30/20 04/09/24 03/01/22 History sustained-release trazodone 100 mg tablet 100 mg PO BEDTIME 11/30/20 04/09/24 02/28/22 History cranberry 400 mg capsule 450 mg PO DAILY 03/22/21 04/09/24 03/01/22 History melatonin 3 mg tablet 6 mg PO BEDTIME 03/22/21 04/09/24 02/28/22 History multivitamin 1 tab PO DAILY 03/22/21 04/09/24 03/01/22 History immun glob G 10 gram/100 450 ml subcut Q4W 12/14/21 04/09/24 02/01/22 History mL(10%)-gly-IgA ov50 mcg/mL subcutaneous soln immun glob G 10 gram/100 500 ml subcut Q4W 12/14/21 04/09/24 01/31/22 History mL(10%)-gly-IgA ov50 mcg/mL subcutaneous soln benztropine 1 mg tablet 1 mg PO BID 01/22/22 04/09/24 03/01/22 History chlorhexidine gluconate 0.12 % 15 ml buccal BID 03/01/22 04/09/24 Unknown History mouthwash omega-3 fatty acids 2,000 mg PO BID 03/01/22 04/09/24 Unknown History polyethylene glycol 3350 17 gram 17 g PO DAILY PRN Constipation 03/01/22 04/09/24 Unknown History oral powder packet quetiapine 400 mg tablet 400 mg PO BEDTIME 08/25/22 04/09/24 Unknown History pantoprazole 40 mg tablet,delayed 40 mg PO DAILY PRN 02/19/23 04/09/24 Unknown History release oxcarbazepine 150 mg tablet 150 mg PO BID 08/27/23 04/09/24 Unknown History Exam Pertinent Lab Results Pertinent Lab Results: Laboratory Tests 06/09/23 02/19/24 10:48 10:57 WBC 5.4 Hgb 13.8 Hct 42.5 Plt Count 224 Sodium 140 Potassium 4.0 Chloride 110 H Carbon Dioxide 25 BUN 15 Creatinine 0.87 Narrative Narrative: FL cva device check w fluoro 01/2024 IMPRESSION: 1. No extravasation of contrast in the port and into the right chest wall soft tissues 2. Catheter tip is severely retracted and is currently position in the distal right brachiocephalic vein 3. There is retrograde filling of the right subclavian and right internal jugular vein that correlates with the patient's discomfort during the injection. Assessment and Plan Assessment Anesthesia Assessment: Chart Reviewed Final Anesthetic Review Family History of Problems with Anesthesia: No History of Problems with Anesthesia: No Documented by User: Toni Epstein MD 04/14/24 11:06 [facility] Past Medical History Medical History Controlled diabetes mellitus type II without complication Acute inflammatory demyelinating polyneuropathy Bipolar disorder Hypogammaglobulinemia ARDS (adult respiratory distress syndrome) Pneumonia due to 2019 novel coronavirus Obesity, morbid, BMI 40.0-49.9 Obesity due to excess calories Gastric paresis Esophagitis with gastritis Acquired hypothyroidism Hyperlipidemia Family History Family History Other Adopted Surgical History Surgical History History of surgery (02/09/23) Hx of tooth extraction Hx of section Social History Social History Household Members: Family Household Members Other:: mom, dad and children Housing: House Do you presently have visiting nurse or other home services: Yes Alcohol intake: never Comment: 1:1 sitter Patient Tobacco Use Status: Former Tobacco user Tobacco use type: Cigarette e-Cigarette/Vaping Use: Never Used Second Hand Smoke Exposure: No Use of substances other than those prescribed or required for medical reasons: No Are you DNR?: No Advance Directives: No Advance Directives Information Provided: Yes service: No Current occupational status: disabled Gender identity: Female Cognitive needs: Yes Hearing needs: No Vision needs: Yes Meds Allergies Allergy/AdvReac Type Severity Reaction Status Date / Time latex Allergy Unknown Rash Verified 04/09/24 09:33 metoclopramide [From Reglan] AdvReac Unknown Interacts Verified 04/09/24 09:33 with Seroquel Home Medications ?Medication ?Instructions ?Recorded ?Confirmed ?Last Taken ?Type bupropion HCl 100 mg tablet,12 hr 100 mg PO QAM 11/30/20 04/09/24 03/01/22 History sustained-release trazodone 100 mg tablet 100 mg PO BEDTIME 11/30/20 04/09/24 02/28/22 History cranberry 400 mg capsule 450 mg PO DAILY 03/22/21 04/09/24 03/01/22 History melatonin 3 mg tablet 6 mg PO BEDTIME 03/22/21 04/09/24 02/28/22 History multivitamin 1 tab PO DAILY 03/22/21 04/09/24 03/01/22 History immun glob G 10 gram/100 450 ml subcut Q4W 12/14/21 04/09/24 02/01/22 History mL(10%)-gly-IgA ov50 mcg/mL subcutaneous soln immun glob G 10 gram/100 500 ml subcut Q4W 12/14/21 04/09/24 01/31/22 History mL(10%)-gly-IgA ov50 mcg/mL subcutaneous soln benztropine 1 mg tablet 1 mg PO BID 01/22/22 04/09/24 03/01/22 History chlorhexidine gluconate 0.12 % 15 ml buccal BID 03/01/22 04/09/24 Unknown History mouthwash omega-3 fatty acids 2,000 mg PO BID 03/01/22 04/09/24 Unknown History polyethylene glycol 3350 17 gram 17 g PO DAILY PRN Constipation 03/01/22 04/09/24 Unknown History oral powder packet quetiapine 400 mg tablet 400 mg PO BEDTIME 08/25/22 04/09/24 Unknown History pantoprazole 40 mg tablet,delayed 40 mg PO DAILY PRN 02/19/23 04/09/24 Unknown History release oxcarbazepine 150 mg tablet 150 mg PO BID 08/27/23 04/09/24 Unknown History Exam Airway Mallampati Class: III TM Dist: <=3cm Neck ROM: Full Loose/Missing/Broken Teeth: No Heart: rrr Lungs: cta Assessment and Plan Assessment Anesthesia Assessment: Anesthesia Plan Discussed Final Anesthetic Review NPO: Yes ASA Class: III Final Preanesthetic Review: No Changes in Pt Med Stat, Meds/Allgs Chart Reviewed, Consent Obtained/Reviewed and Anes Risks/Benef Reviewed Patient Risk: Intermediate Procedure Risk: Intermediate Anesthetic Plan Anesthetic Plan: MAC: Disposition: Standard PACU
[2024-04-14] VITALS (8 sets, daily range): BP systolic 111–135; BP diastolic 64–92; PULSE 73–85; RESP 12–18; TEMP 36.4–36.6; O2SAT 94–100; BMI 42.4
--- NOTE | ~2024-04-14 | FL_ITS ---
EXAMINATION: XR FLUOROSCOPY WITH IMAGES CLINICAL INFORMATION: Port-a-cath removal and insertion. COMPARISON: None available. TECHNIQUE: Fluoroscopy Supervised By: Dr. Rae. Fluoroscopy Time: 8 sec. Cumulative Dose: 0.2633 mGy. DAP: 0.0159 Gycm2. Images: 2. FINDINGS: Intraoperative fluoroscopy and spot films were performed during a procedure in the OR. Single image demonstrates a right jugular port with a slight upward loop of the catheter. The tip is in the SVC. Please see Dr. Rae' report for complete details. FL/FL guidance in OR IMPRESSION: Intraoperative fluoroscopy and spot films were obtained. Please see Dr. Rae' report for complete details.
[2024-04-14] MEDS: Lactated Ringers 1,000 ML 100 ML IVCONT (10:41)
[2024-04-14 10:50] LABS: Glucose, Whole Blood 99 mg/dL (60-115)
--- NOTE | 2024-04-14 11:22 | MHC.SHP ---
Pre-Procedural Eval Section A - 24 Hr Update-Section A only Date of Service: 04/14/24 The patient is an INPATIENT: No Changes since office visit: No Cold of Flu in the past 2 weeks, No New Medical Problems, No Changes in Medication and No Patient answered all questions Section B - Complete if H&P > 30 days Chief Complaint: Encounter for adjustment and management of vascula Allergies: Allergies Allergy/AdvReac Type Severity Reaction Status Date / Time latex Allergy Unknown Rash Verified 04/09/24 09:33 metoclopramide [From Reglan] AdvReac Unknown Interacts Verified 04/09/24 09:33 with Seroquel Plan I have reviewed the history and physical and performed a pertinent physical examination on my patient. No changes have occurred unless specified. Time Spent With Patient Time: Total time managing care of this patient today ____ minutes.
--- NOTE | 2024-04-14 11:35 | PC.NURSE ---
dr boswell notified about multiple facial and ear jewelry. waiver signed. ok to proceed.
[2024-04-14 11:39] LABS: UPreg QC Valid YES; Urine Pregnancy NEGATIVE (NEGATIVE)
--- NOTE | 2024-04-14 12:58 | P.OP_ITS ---
Operative Note Operative Note Date of Service: 04/14/24 Narrative: Preoperative diagnosis: [] A nonfunctioning Port-A-Cath Postop diagnosis: [] The same Procedure [] 1. Right chest Port-A-Cath removal 2. Right IJ Port-A-Cath placement with Doppler ultrasound guidance and fluoroscopy Surgeon: [] [employer] Pay Manager: [] Type of Anesthesia: [] LMA Indication for surgery: [] Patient was a proximally 1.5 years status post Port-A-Cath placement. Is currently nonfunctioning from combination of inspissated luminal obstruction and catheter tip against the vein well. Findings: [] Patient brought to the operating room, placed on operative table supine position, after adequate level of LMA anesthesia was induced, bilateral neck and chest areas were prepped and draped in usual sterile fashion. Using an incision from the prior port placement in the right upper chest, this carried down through skin, subcutaneous tissue, where port capsule was entered and Port-A-Cath was uneventfully removed. Having premarked with ultrasound guidance the right internal jugular vein, this was cannulated using Seldinger technique, and a wire advanced to the level of the superior vena cava under fluoroscopic guidance. The previously entered port pocket was tunneled to the wire and the catheter placed through the subcutaneous tunnel, connected to the port, and secured to the pocket using 3-0 Vicryl sutures. Under fluoroscopic guidance a dilating sheath was placed over the wire again under fluoroscopic guidance and a wire retrieved. Pre hep flush catheter was advanced level of the superior vena cava under fluoroscopic guidance. Peel-away sheath was removed without incident. Antegrade and retrograde flow were established easily. Wounds were irrigated, secured hemostasis, and closed using interrupted inverted dermal 3-0 Vicryl sutures followed by Steri-Strips and sterile dressings. At completion of procedure, access was once again obtained with antegrade and retrograde flow easily established. Each wound was infiltrated with 0.5% Marcaine/1% lidocaine. Sponge, needle, and instrument counts reported correct. Patient tolerated the procedure well and emerged from anesthesia stable condition. EBL minimal. Postprocedure chest x-ray in the operating room demonstrated catheter in good position with no pneumothorax.
== END 2024-04-14 14:50 | disposition home or self-care (01) ==
PROVIDERS: Nurse Practitioner; PCP Internal Medicine; Visit Provider Surgery
PROC: (CPT 36590; principal; 2024-04-14 11:40)
DX: T82.594A Other mechanical complication of infusion catheter, initial encounter (principal); Y83.8 Other surgical procedures as the cause of abnormal reaction of the patient, or of later complication, without mention of misadventure at the time of the procedure; Y92.9 Unspecified place or not applicable; E11.9 Type 2 diabetes mellitus without complications
CPT/HCPCS: 36590; 36561; 81025; 82947; C1788; J0690; J1100; J1644; J2250; J2405; J2704; J3010

== ENCOUNTER → 2024-04-14 09:57 | Outpatient (BNV) | payer MEDICARE, MEDICAID, SELFPAY | PROVIDERS: PCP Internal Medicine; Visit Provider Surgery | DX: Z45.2 Encounter for adjustment and management of vascular access device (principal) | CPT/HCPCS: 36561; 36590; 76937 ==

== ENCOUNTER 2024-08-28 09:59 | Outpatient (REF) | payer MEDICARE, MEDICAID, SELFPAY ==
[2024-08-28 13:50] LABS: Estimated Average Glucose 114 mg/dL; Hemoglobin A1C 123.3623 umol/L; Hemoglobin A1c % 5.6 % (<6.0); Total Hemoglobin (HGBA1C) 3233.2639 umol/L
[2024-08-28 14:09] LABS: Alanine Aminotransferase 22 U/L (0-31); Albumin Level 3.6 g/dL (3.5-5.0); Alkaline Phosphatase 85 U/L (39-117); Anion Gap 9 (12-20); Aspartate Amino Transferase 19 U/L (5-31); Bilirubin Total 0.2 mg/dL (0.0-1.0); Blood Urea Nitrogen 20 mg/dL (9-16); Calcium 8.6 mg/dL (8.4-10.2); Carbon Dioxide 22 mmol/L (22-29); Chloride 107 mmol/L (96-108); Cholesterol 124 mg/dL (<200); Estimated Glomerular Filt Rate > 60; Glucose Fasting 99 mg/dL (60-99); HDL Cholesterol 53 mg/dL (>40); LDL Cholesterol Calculated 33 mg/dL (<100); Potassium 3.4 mmol/L (3.3-5.1); Sodium 135 mmol/L (135-145); Total Protein 9.8 g/dL (6.5-8.0); Triglycerides 193 mg/dL (<150)
[2024-08-28 14:11] LABS: Free T4 (Free Thyroxine) 0.76 ng/dL (0.71-1.85); Thyroid Stimulating Hormone 3.57 uIU/mL (0.32-4.0)
== END 2024-08-28 10:00 | disposition home or self-care (01) ==
LOC: HO.HMGCLDS 09:59
PROVIDERS: PCP Internal Medicine; Visit Provider Internal Medicine
DX: E78.2 Mixed hyperlipidemia (principal); F31.9 Bipolar disorder, unspecified; E11.9 Type 2 diabetes mellitus without complications; G61.0 Guillain-Barre syndrome
CPT/HCPCS: 36415; 80053; 80061; 82306; 83036; 84439; 84443

== ENCOUNTER 2024-08-29 11:15 | Outpatient (REF) | payer MEDICARE, MEDICAID, SELFPAY ==
[2024-08-29 13:40] LABS: Creatinine Urine 77.95 mg/dL; Microalbum/Creatinine Ratio Ur 15.3 ug/mg cr (<30)
== END 2024-08-29 11:16 | disposition home or self-care (01) ==
LOC: HO.HMGCLNP 11:15
PROVIDERS: PCP Internal Medicine; Visit Provider Internal Medicine
DX: G61.0 Guillain-Barre syndrome (principal); E11.9 Type 2 diabetes mellitus without complications; F31.9 Bipolar disorder, unspecified; E78.2 Mixed hyperlipidemia
CPT/HCPCS: 82043; 82570

== ENCOUNTER 2024-09-11 10:46 | Outpatient (AMB) | payer MEDICARE, MEDICAID, SELFPAY ==
--- NOTE | 2024-09-11 11:22 | MHC.PC.OV ---
Vital Signs 09/11/24 11:35 BMI Reason not done Patient refused/unable BP 112/80 Blood Pressure Location Lt brachial Position Sitting Pulse 81 Pulse Source Pulse Oximeter Pulse Oximetry (%) 97 Oxygen Delivery Method Room Air Intake Visit Reasons: PE Intake Note: Pt is here today for her PE: Last papsmear 12/01/20 Is last menstrual period known: Yes Last menstrual period: 09/04/24 Allergies latex Allergy (Unknown, Verified 09/11/24 11:52) Rash metoclopramide [From Reglan] Adverse Reaction (Unknown, Verified 09/11/24 11:52) Interacts with Seroquel Medication List - Last Reconciled 09/11/24 by Lachelle Guerra MD benztropine 1 mg PO BID blood sugar diagnostic (FreeStyle Lite Strips) three times a day blood-glucose meter (FreeStyle Lite Meter kit) 3 x/day bupropion HCl SR 100 mg PO QAM chlorhexidine gluconate 0.12% 15 mL buccal BID cranberry 450 mg PO DAILY hydrocodone-acetaminophen 5-325 mg 1 tab PO Q4-6H PRN immun glob G(IgG)-gly-IgA ov50 10 gram/100 mL (10 %) 500 mL subcut Q4W immun glob G(IgG)-gly-IgA ov50 10 gram/100 mL (10 %) 450 mL subcut Q4W lancets (FreeStyle Lancets) As directed three time a day levothyroxine (Euthyrox) 75 mcg PO QAM lidocaine 5% 1 appl topical DAILY PRN magnesium oxide 400 mg PO DAILY melatonin 6 mg PO BEDTIME multivitamin 1 tab PO DAILY omega-3 fatty acids 2,000 mg PO BID oxcarbazepine 150 mg PO BID pantoprazole 40 mg PO DAILY PRN pen needle, diabetic (BD Wendy 2nd Gen Pen Needle) As directed daily polyethylene glycol 3350 17 grams PO DAILY PRN pravastatin 20 mg PO BEDTIME quetiapine 400 mg PO BEDTIME trazodone 100 mg PO BEDTIME [wheelchair As directed] Tobacco use date assessed: 09/11/24 Dental Screening Dental Screen Date: 09/11/24 Did you have a dental visit in the last 12 months?: No Did you have a dental problem in the last 6 months where you did not have access to dental care?: No Was dental information given to patient?: Patient has dentist HPI HPI Comments History of Present Illness Details 34 year-old lady with history diabetes mellitus, hypothyroidism , Guillain Walden syndrome, hyperlipidemia, and bipolar disorder, here today for her physical exam. she is still getting regular IV immunoglobulin infusion, [facility] to [facility] for her routine Pap and pelvic exam, last cervical cancer screening done in 2020 with negative findings. She has been referred to family planning sales support consultant specialist at [facility] or [place]. Referral sent to Dr. Lynn. Not a candidate for Depo-Provera/ She has been feeling well, has been able to walk around the house without use of her walker. She was seeing Dr. Daina Daley in the past, switched to Em Crenshaw , who also has retired, would like to be referred to a different psychiatrist for her bipolar disorder [facility] Medical History (Updated 09/11/24 @ 12:17 by Lachelle Guerra MD) Controlled diabetes mellitus type II without complication Acute inflammatory demyelinating polyneuropathy Bipolar disorder Hypogammaglobulinemia ARDS (adult respiratory distress syndrome) Pneumonia due to 2019 novel coronavirus Obesity, morbid, BMI 40.0-49.9 Gastric paresis Esophagitis with gastritis Acquired hypothyroidism Hyperlipidemia Surgical History History of surgery (02/09/23) Hx of tooth extraction Hx of section Family History Other Adopted Social History Household Members: Family Household Members Other:: mom, dad and children Housing: House Do you presently have visiting nurse or other home services: Yes Alcohol intake: never Comment: 1:1 sitter Patient Tobacco Use Status: Former Tobacco user Tobacco use type: Cigarette e-Cigarette/Vaping Use: Never Used Second Hand Smoke Exposure: No service: No Current occupational status: disabled Gender identity: Female Cognitive needs: Yes Hearing needs: No Vision needs: Yes Female Reproductive History Menstrual Age of Menarche: 9 Date of last menstrual period: 09/04/24 Questionnaire PHQ-9 Over the last 2 weeks, how often have you been bothered by any of the following problems? 1. Little interest or pleasure in doing things: not at all 2. Feeling down, depressed, or hopeless: not at all 3. Trouble falling or staying asleep, or sleeping too much: not at all 4. Feeling tired or having little energy: not at all 5. Poor appetite or overeating: not at all 6. Feeling bad about yourself - or that you are a failure or have let yourself or your family down: not at all 7. Trouble concentrating on things, such as reading the newspaper or watching television: not at all 8. Moving or speaking so slowly that other people could have noticed. Or the opposite - being so fidgety or restless that you have been moving around a lot more than usual: not at all 9. Thoughts that you would be better off or of hurting yourself in some way: not at all Total score: 0 Depression Screening Interpretation: Negative Depression Screening Done: Yes 78507 - PHQ-9 Billing: Yes Source: Developed by Drs. Dionisio Combs, Kinjal Bates, Aditya Bustillo and colleagues, with an educational kennedy from [employer]. Thrive Questionnaire Date Thrive assessed: 09/11/24 I am a: Patient What is your living situation today?: I have a steady place to live Within the past 12 months, did the food you bought not last and you didn't have the money to get more?: Never true Within the past 12 months, did you worry whether your food would run out before you got money to buy more?: Never true Do you have trouble paying for medicines?: No Do you have trouble getting transportation to medical appointments?: No Do you have trouble paying your heating and electricity bill?: No Do you have trouble taking care of your child, family member or friend?: Yes Do you have trouble with day-to-day activities such as bathing, preparing meals, shopping, managing finances, etc.?: Yes Are you currently unemployed and looking for a job?: No Are you interested in more education?: No Please select the resources that you would like help with: None Currently or been in a relationship where the following occur: No concerns reported THRIVE Score: 0 AUDIT C Alcohol Use Questionnaire (AUDIT-C) 1. How often do you have a drink containing alcohol?: Never Total Score: 0 TATYANA-7 AMB Questionnaire TATYANA-7 Date TATYANA - 7 assessed: 09/11/24 Feeling nervous, anxious, or on edge: 1 = Several days Not being able to stop or control worryin = Several days Worrying too much about different things: 1 = Several days Trouble relaxin = Not at all Being so restless that it is hard to sit still: 0 = Not at all Becoming easily annoyed or irritable: 0 = Not at all Feeling afraid as if something awful might happen: 0 = Not at all Total TATYANA-7 score (0-4 normal; 5-9 mild; 10-14 moderate; 15-21 severe): 3 Source: Developed by Drs. Dionisio Combs, Kinjal Bates, Aditya Bustillo and colleagues, with an educational kennedy from [employer]. TATYANA-7 Assessment Billing TATYANA-7 Assessment Tool: TATYANA-7 Assessment 30034 Review of Systems Const Denies headache(s) Eyes Details: Currently being seen at [facility], has an appointment scheduled for today for an exam Reports no additional complaints ENT Denies dysphagia, Denies headache(s), Denies hearing loss, Denies nasal congestion and Denies sore throat Card Denies chest pain, Denies irregular heart rhythm, Denies lightheadedness, Denies palpitations and Denies dyspnea Resp Denies cough and Denies dyspnea GI Denies abdominal pain, Denies melena, Denies hematochezia, Denies dysphagia and Denies heartburn Denies urinary frequency, Denies difficulty voiding, Denies dysuria and Denies urinary incontinence Musc Reports abnormal gait, Denies muscle cramps and Reports muscle weakness (Improving) Skin/Breast Denies breast pain, Denies breast mass and Denies rash Neuro Details: Currently under the care of [facility], gets monthly infusions for IVIG Reports abnormal gait, Denies burning sensations, Denies headache(s) and Reports focal weakness (Lower extremities) Psych Reports no additional complaints Endo Denies palpitations Randy/Lymph Denies easy bleeding and Denies easy bruising Aller/Immun Reports no additional complaints Physical exam (Primary Care) Vital Signs: Last Vital Signs Pulse 81 09/11/24 11:35 BP 112/80 09/11/24 11:35 Pulse Ox 97 09/11/24 11:35 Oxygen Delivery Method Room Air 09/11/24 11:35 BMI Assessment/Plan discussion: High BMI High, discussed plan: lifestyle, weight reduction and dietary Tobacco/Smoking Status: Tobacco use Status Tobacco use date assessed 09/11/24 09/11/24 11:24 Patient Tobacco Use Status Former Tobacco user 09/11/24 11:24 Tobacco use type Cigarette 09/11/24 11:24 e-Cigarette/Vaping Use Never Used 09/11/24 11:24 PHQ-9: PHQ-9 Score PHQ-9: Total score 0 09/11/24 12:21 Depression Screening Interpretation: Negative Thrive Assessment: Date of Thrive Assessment Date Thrive assessed 09/11/24 09/11/24 11:24 Currently or been in a relationship where the following occur: No concerns reported Advance Care Planning discussion: Completed/Scanned Date of discussion: 09/11/24 Who was present: Patient and father Forms completed: Health Care Proxy Time spent: 16-45 minutes Actual minutes spent: 3 Const Nutritional Appearance: obese Orientation/consciousness: patient oriented x3 HENMT Head: Yes normocephalic Ears: external ears normal General nose exam: Normal external nose present and No nasal discharge present Face and sinus: Yes face symmetric Mouth: oropharynx normal and moist mucous membranes Eyes General: appearance normal, both eyes and all related structures Neck Neck: Yes full ROM, Yes no lymphadenopathy and Yes supple Chest Chest palpation & inspection: normal inspection of the chest Breast/axilla palpation: normal palpation of the breasts Resp Effort & Inspection: normal respiratory effort and able to speak in complete sentences Auscultation: clear to auscultation bilaterally Cardio Rate: regular rate Rhythm: regular rhythm Heart sounds: S1 normal heart sound present and S2 normal heart sound present GI Palpation (GI): Soft to palpation, nontender, no guarding and no masses Auscultation: normal bowel sounds Other: Sees a C OBGYN General: Yes no CVA tenderness and Yes deferred Back/Spine/Pelvis Back: no CVA tenderness and No back tenderness Skin General skin exam: no rashes or lesions noted Neuro General: patient oriented x3, CN's II-XI intact bilaterally, decrease sensation to monofilament (From below the knee up to toes bilateral) and other (Slight footdrop bilateral) Extrem General: Yes no joint enlargement, Yes no pedal edema and Yes no calf tenderness Psych Appearance: grossly normal and well kempt Mental Status: mental status grossly normal Speech and movement: Normal speech and movement present Affect: normal affect Attitude: cooperative Thought process: Normal thought process present Thought content: Normal thought content present Results Reviewed Results Reviewed: Laboratory Tests 08/28/24 10:09 Estimat Average Glucose 114 Hemoglobin A1c % 5.6 dimitri: Susy Wolf Age/Sex: 34/F : 1990 Unit#: [id number] Attend Dr: Lachelle Guerra MD Re08/28/24 Status: DEP REF Location: [facility] Disch: SPEC : [id number] SHAILESH: 08/28/24 STATUS: COMP REQ : [id number] RECD: 08/28/24-[address]: Lachelle Guerra MD COMP: 08/28/24 ENTERED: 08/28/24-[address]: ORDERED: CMP Fast, Lipid Panel, Vitamin D 25-OH, Free T4, TSH Test Result Flag Reference Sodium 135 135-145 mmol/L Potassium 3.4 3.3-5.1 mmol/L CL 107 96-108 mmol/L CO2 22 22-29 mmol/L Gap 9 L 12-20 BUN 20 H 9-16 mg/dL Creat 0.97 0.5-1.4 mg/dL EGFR > 60 NOTE: For -Citizen Of [place] individuals, multiply the result by 1.210. Chronic Kidney Disease: Estimated GFR < 60 mL/min/1.73m2 Severe Kidney Disease: Estimated GFR < 15 mL/min/1.73m2 FBS 99 60-99 mg/dL CA 8.6 8.4-10.2 mg/dL Total Bili 0.2 0.0-1.0 mg/dL AST (GOT) 19 5-31 U/L ALT (GPT) 22 0-31 U/L Protein, Total 9.8 H 6.5-8.0 g/dL Alb 3.6 3.5-5.0 g/dL Triglyceride 193 H <150 mg/dL Desirable Triglyceride: less than 150 mg/dL Borderline High Triglyceride 150-199 mg/dL High Triglyceride: 200-499 mg/dL Very High Triglyceride: greater than or equal to 5OO mg/dL Cholesterol 124 <200 mg/dL Desirable Cholesterol: less than 200 mg/dL Borderline High Cholesterol: 200-239 mg/dL High Cholesterol: greater than 239 mg/dL LDL Calculated 33 <100 mg/dL Desirable LDL: less than 100 mg/dL Near Optimal/Above Optimal LDL: 110-129 mg/dL Borderline High LDL: 130-159 mg/dL High LDL: 160-189 mg/dL Very High LDL: greater than or equal to 190 mg/dL HDL 53 >40 mg/dL Desirable HDL: greater than 40 mg/dL Note: This HDL assay may give artificially low results in patients with liver disease. Alk Phos 85 39-117 U/L Vit D 25-OH Tot 15.0 L >30 ng/mL Health Based Reference Values* < 20 ng/mL Deficient 20-30 ng/mL Insufficient > 30 ng/mL Sufficient *Robles SAHA. N Engl J Med. 2007;357:266-280 Care must be taken in interpreting Vitamin D results from different laboratories and methodologies. Published data demonstrated that results from patients undergoing hemodialysis may show a negative bias when tested with various automated 25-OH vitamin D assays when compared to LC-MS/MS. When testing samples from patients whose predominant form of Vitamin D is Vitamin D2, such as patients receiving Vitamin D2 supplementation, results that are subtherapeutic should be confirmed with another method such as LC-MS/MS. Free T4 0.76 0.71-1.85 ng/dL TSH 3rd Gen. 3.57 0.32-4.0 uIU/mL Note: A sustained TSH level above 2.5 uIU/mL may warrant further investigation. Coding Level of Care Code Est Pt Prev Care 18-39y(22823) Diagnoses Annual visit for general adult medical examination with abnormal findings Z00.01 Controlled type 2 diabetes mellitus without complication, without long-term current use of insulin E11.9 Diabetes mellitus terminal operator insulin use: without care home use Mixed hyperlipidemia E78.2 Hyperlipidemia type: mixed hyperlipidemia Acquired hypothyroidism E03.9 Vitamin D deficiency E55.9 Bipolar affective disorder, remission status unspecified F31.9 Active/Remission status: remission status unspecified Acute inflammatory demyelinating polyneuropathy G61.0 Encounter for counseling regarding advance directives Z71.89 Additional Codes TATYANA-7 Assessment Billing - TATYANA-7 Assessment Tool: TATYANA-7 Assessment 56356 ([id number]) Vital Signs *Quality* - Advance Care Planning discussion: Completed/Scanned ([id number]) Vital Signs *Quality* - Time spent: 16-45 minutes ([id number]) Assessment & Plan Assessment & Plan (1) Annual visit for general adult medical examination with abnormal findings: Code(s): Z00.01 - Encounter for general adult medical examination with abnormal findings Plan: Reviewed recent fasting lab results with patient. Noted to have vitamin-D deficiency.. Recommended dental visit every 6 months and regular eye exams, at least every 2 years. Take adequate calcium in diet and vitamin-D 3 at 2000 IU per cap once a day, in addition to weight-bearing exercises to help maintain good muscle tone and weight control. Instructed to do self-breast exam, and start mammogram screening at age 40. Declines vaccinations (2) Controlled diabetes mellitus type II without complication: Code(s): E11.9 - Type 2 diabetes mellitus without complications Category: Medical Qualifiers: Diabetes mellitus terminal operator insulin use: without care home use Qualified Code(s): E11.9 - Type 2 diabetes mellitus without complications Plan: Latest hemoglobin A1c was 5.6%. Reinforced importance of following healthy diet and getting regular exercise. (3) Hyperlipidemia: Code(s): E78.5 - Hyperlipidemia, unspecified Category: Medical Qualifiers: Hyperlipidemia type: mixed hyperlipidemia Qualified Code(s): E78.2 - Mixed hyperlipidemia Plan: Latest fasting labs showed lipids are within normal limits, continue on [place] 3 fatty acid supplements and pravastatin 20 mg at bedtime (4) Acquired hypothyroidism: Comment: negative anti TPO antibodies Code(s): E03.9 - Hypothyroidism, unspecified Category: Medical Plan: Thyroid levels are within normal limits, continue with levothyroxine 75 mcg taken once a day in a.m. (5) Vitamin D deficiency: Code(s): E55.9 - Vitamin D deficiency, unspecified Category: Medical Plan: Started on cholecalciferol 28059 units per capsule to take once a week for the next 3 months. Once finished taking prescription, to continue taking ybaz-zxz-bhtejkn vitamin-D 3 at 2000 units daily (6) Bipolar disorder: Code(s): F31.9 - Bipolar disorder, unspecified Category: Medical Qualifiers: Active/Remission status: remission status unspecified Qualified Code(s): F31.9 - Bipolar disorder, unspecified Plan: Was being seen by Dr. Daina Daley, who retired and now currently being seen by Etelvina Crenshaw , who also will be retiring by tomorrow. Patient states that they have been given numbers to call look for another psychiatrist but has been unsuccessful so far. Referred to Lacie Barnett, our mental health coordinator, for assistance in getting in to see us a new psychiatrist (7) Acute inflammatory demyelinating polyneuropathy: Comment: Or Guillain Walden syndrome, 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 Code(s): G61.0 - Guillain-Walden syndrome Category: Medical Plan: Has an appointment to see Neurology at [facility] on 11/2024 (8) Encounter for counseling regarding advance directives: Code(s): Z71.89 - Other specified counseling Plan: Initiated the conversation about Advanced Directives. Advanced Directives help patients prepare for current and future decisions about their medical treatment and place of care. Discussed with patient that it is a process where a patients current condition and prognosis are reviewed, their wishes for information regarding their illness are elicited, and likely medical dilemmas are presented and options discussed. Healthcare proxy form complete. The form can be amended as needed, reviewed yearly and make changes as needed Medications: New blood sugar diagnostic (Nflight TechnologyTouch Ultra Test strips) Check fasting blood sugar once a day before meal 50 ea 5RF E11.9 - Type 2 diabetes mellitus without complications cholecalciferol (vitamin D3) 1,250 mcg PO QWEEK 3 months 13 caps 0RF E55.9 - Vitamin D deficiency, unspecified
[2024-09-11 11:35] VITALS: BP 112/80; PULSE 81; O2SAT 97
== END 2024-09-11 12:19 | disposition home or self-care (01) ==
LOC: HO.HMCC 10:47
PROVIDERS: PCP Internal Medicine; Visit Provider Internal Medicine
DX: Z00.00 Encounter for general adult medical examination without abnormal findings (principal); E11.9 Type 2 diabetes mellitus without complications; F31.9 Bipolar disorder, unspecified; G61.0 Guillain-Barre syndrome; E78.2 Mixed hyperlipidemia; E03.9 Hypothyroidism, unspecified; E55.9 Vitamin D deficiency, unspecified

== ENCOUNTER → 2024-09-11 10:46 | Outpatient (BNVA) | payer MEDICARE, MEDICAID, SELFPAY | PROVIDERS: PCP Internal Medicine; Visit Provider Internal Medicine | DX: Z00.01 Encounter for general adult medical examination with abnormal findings (principal); E11.9 Type 2 diabetes mellitus without complications; E78.2 Mixed hyperlipidemia; E03.9 Hypothyroidism, unspecified; E55.9 Vitamin D deficiency, unspecified; F31.9 Bipolar disorder, unspecified; G61.0 Guillain-Barre syndrome; Z71.89 Other specified counseling | CPT/HCPCS: 96127; 99395 ==

== ENCOUNTER 2025-03-30 11:47 | Outpatient (REF) | payer MEDICARE, MEDICAID, SELFPAY ==
--- OUTSIDE RECORDS SUMMARY | 2025-03-30 13:54 | XMS_ITS | Clinical Summary ---
Author Organization [facility] Address [address] [place] [address] Phone Care Team Providers Care Lockstitch Collar Setter Name Role Phone Rodolfo Guerra MD Primary Care Provider [phone] Allergies Active Allergy Reactions Criticality Noted Date Comments Latex 10/28/2021 Metoclopramide 10/28/2021 Medications buPROPion SR (WELLBUTRIN SR) 100 MG 12 hr tablet 10/01/2021 Active FeroSul 325 (65 Fe) MG tablet 10/17/2021 Activ e Tresiba FlexTouch 200 UNIT/ML injection 20 Units 10/07/2021 Active Comfort EZ Pen Alexander 32G X 4 MM misc 10/01/2021 Active [...] to complete this topic Insurance Medicare Medicaid [place] Medicare Medicaid [place] Care Teams Lockstitch Collar Setter Relationship Specialty Start Date End Date Rodolfo Guerra MD [address] [place] [id number] PCP - General Internal Medicine 10/18/21
[2025-03-30 16:37] LABS: Appearance Urine Turbid; Color Urine Yellow; Glucose Urine UA Negative (Negative); Leukocyte Esterase Urine Large (3+) (Negative); Nitrite Urine Negative (Negative); PH 5.5 (5.0-9.0); UMIC TRIGGER UACC YES; Urine Blood Trace (Negative); Urine Ketones Negative (Negative); Urine Protein Negative (Neg-Trace)
[2025-03-30 16:43] LABS: Bacteria Urine 4+ (None Seen); Hyaline Casts Urine 0-2 /LPF (0-2); RBC Urine 0-2 /HPF (0-2); UACC Culture Trigger YES; WBC Urine >50 /HPF (0-5)
== END 2025-03-30 11:48 | disposition home or self-care (01) ==
LOC: HO.LAB 11:47
PROVIDERS: Nurse Practitioner Family; PCP Internal Medicine
DX: N30.90 Cystitis, unspecified without hematuria (principal)
CPT/HCPCS: 81001; 81003; 87086; 87088; 87186; 99212

== ENCOUNTER 2025-03-30 11:47 | Outpatient (AMB) | payer MEDICARE, MEDICAID, SELFPAY ==
--- OUTSIDE RECORDS SUMMARY | 2025-03-30 12:30 | XMS_ITS | Clinical Summary ---
Author Organization [facility] Address [address] [place] [address] Phone Care Team Providers Care Java J2Ee Software Engineer Name Role Phone Rodolfo Guerra MD Primary Care Provider [phone] Allergies Active Allergy Reactions Criticality Noted Date Comments Latex 10/28/2021 Metoclopramide 10/28/2021 Medications buPROPion SR (WELLBUTRIN SR) 100 MG 12 hr tablet 10/01/2021 Active FeroSul 325 (65 Fe) MG tablet 10/17/2021 Activ e Tresiba FlexTouch 200 UNIT/ML injection 20 Units 10/07/2021 Active Comfort EZ Pen [place] 32G X 4 MM misc 10/01/2021 Active levothyroxine (SYNTHROID, LEVOTHROID) 75 MCG tablet 09/27/2021 Active magnesium oxide (MAG-OX) 400 (241.3 Mg) MG tablet 10/05/2021 Active medroxyPROGESTERo ne (DEPO-PROVERA) 150 MG/ML injection 08/22/2021 Active metFORMIN (GLUCOPHAGE) 500 MG tablet 08/09/2021 Active OXcarbazepine (TRILEPTAL) 150 MG tablet 10/13/2021 Active pantoprazole (PROTONIX) 40 MG EC tablet 10/26/2021 Active pravastatin (PRAVACHOL) 20 MG tablet 09/16/2021 Active pregabalin (LYRICA) 300 MG capsule 08/18/2021 Active QUEtiapine XR (SEROquel XR) 300 MG 24 hr tablet 08/10/2021 Act yana Thiamine Mononitrate 100 MG tablet 10/13/2021 Active traZODone (DESYREL) 100 MG tablet 10/13/2021 Active Active Problems Problem Noted Date Diagnosed Date Polyneuropathy 04/09/2020 Dry beriberi 09/05/2019 Thiamine deficiency 09/04/2019 Other hyperlipidemia 09/04/2019 Nausea and vomiting 09/04/2019 Mood disorder 09/04/2019 Macrocytic anemia 09/04/2019 Gastroparesis 09/04/2019 Essential hypertension 09/04/2019 Acquired hypothyroidism 09/04/2019 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 Social History Tobacco Use Types Packs/Day Years Used Date Smoking Tobacco: Never Smokeless Tobacco: Never Alcohol Use Standard Drinks/Week Comments Never 0 (1 standard drink = 0.6 oz pur e alcohol) Comments Unknown Sex and Gender Information Value Date Recorded Sex Assigned at Not on file Legal Sex Female 8:39 AM EST Gender Identity Not on file Sexual Orientation Not on file Last Filed Vital Signs Vital Sign Reading Time Taken Comments Blood Pressure 104/68 05/08/2022 2:17 PM EDT Pulse 92 05/08/2022 2:17 PM EDT Temperature - - Respiratory Rate - - Oxygen Saturation 97% 05/08/2022 2:17 PM EDT Inhaled Oxygen Concentration - - Weight 104 kg (230 lb) 05/08/2022 2:17 PM EDT Height - - Body Mass Index - - Plan of Treatment Health Maintenance Due Date Last Done Comments Hepatitis B Vaccine (1 of 3 - 19+ 3-dose series) 01/15/2008 Influenza Vaccine (Season Ended) 2025 Pneumococcal Vaccine: Peds ( 0 to 5 Years) and At-Risk Patients (6 to 49 Years) Aged Out No longer eligible b ased on patient's age to complete this topic Insurance Medicare Medicaid MD Medicare Medicaid [place] Care Teams Java J2Ee Software Engineer Relationship Specialty Start Date End Date Rodolfo Guerra MD [address] [place] [id number] PCP - General Internal Medicine 10/18/21
--- NOTE | 2025-03-30 13:10 | MHC.OFFWIV ---
Intake Vital Signs 03/30/25 13:20 BMI Reason not done Patient refused/unable BP 118/80 Blood Pressure Location Rt brachial Position Sitting Pulse 81 Pulse Source Pulse Oximeter Temp 98.9 F Temp Source Oral Pulse Oximetry (%) 98 Oxygen Delivery Method Room Air Intake Visit Reasons: EP-uti Intake Note: Patient here for fatigue, confusion that has been present for about 10 days. Patient Tobacco Use Status: Former Tobacco user Allergies latex Allergy (Unknown, Verified 03/30/25 13:19) Rash metoclopramide [From Reglan] Adverse Reaction (Unknown, Verified 03/30/25 13:19) Interacts with Seroquel Do you need a note to return to daycare/school/sports/work: No HPI HPI Comments History of Present Illness Details 35 y/o Female patient who presents to the walk in clinic accompanied by her father with c/o fatigue, confusion that has been present for about 10 days. Father reports Patient seemed to appear more confused than usual. Pt does have multitude of medical conditions and parents worried about patient catching UTI. [facility] Medical History (Updated 09/11/24 @ 12:17 by Lachelle Guerra MD) Controlled diabetes mellitus type II without complication Acute inflammatory demyelinating polyneuropathy Bipolar disorder Hypogammaglobulinemia ARDS (adult respiratory distress syndrome) Pneumonia due to 2019 novel coronavirus Obesity, morbid, BMI 40.0-49.9 Gastric paresis Esophagitis with gastritis Acquired hypothyroidism Hyperlipidemia Surgical History History of surgery (02/09/23) Hx of tooth extraction Hx of section Family History Other Adopted Social History Household Members: Family Household Members Other:: mom, dad and children Housing: House Do you presently have visiting nurse or other home services: Yes Alcohol intake: never Comment: 1:1 sitter Patient Tobacco Use Status: Former Tobacco user Tobacco use type: Cigarette e-Cigarette/Vaping Use: Never Used Second Hand Smoke Exposure: No service: No Current occupational status: disabled Gender identity: Female Cognitive needs: Yes Hearing needs: No Vision needs: Yes Female Reproductive History Menstrual Age of Menarche: 9 Review of Systems Const All systems reviewed & are unremarkable except as noted in HPI and below Physical Exam Vital Signs: Last Vital Signs Temp 98.9 F 03/30/25 13:20 Pulse 81 03/30/25 13:20 BP 118/80 03/30/25 13:20 Pulse Ox 98 03/30/25 13:20 Oxygen Delivery Method Room Air 03/30/25 13:20 Const General: no acute distress Nutritional Appearance: overweight Limitations: behavioral limitations and wheelchair Resp Effort & Inspection: normal respiratory effort Auscultation: clear to auscultation bilaterally Cardio Heart sounds: S1 normal heart sound present and S2 normal heart sound present Results AMB Urinalysis, Automated UA Leukoctes 15 Adali/uL Last Edit by Abner Lyn CCM on 03/30/25 13:50 UA Nitrite Negative Last Edit by Abner Lyn [facility] on 03/30/25 13:50 UA Urobilinogen 0.2 mg/dL Last Edit by Abner Lyn [facility] on 03/30/25 13:50 UA Protein 0 mg/dL Last Edit by Abner Lyn [facility] on 03/30/25 13:50 UA pH 6.0 Last Edit by Abner Lyn [facility] on 03/30/25 13:50 UA Blood 0 Bernabe/uL Last Edit by Abner Lyn [facility] on 03/30/25 13:50 UA Specific [place] 1.025 Last Edit by Abner Lyn [facility] on 03/30/25 13:50 UA Ketone Negative Last Edit by Abner Lyn [facility] on 03/30/25 13:50 UA Bilirubin 0 mg/dL Last Edit by Abner Lyn [facility] on 03/30/25 13:50 UA Glucose 0 mg/dL Last Edit by Abner Lyn [facility] on 03/30/25 13:50 Assessment & Plan Assessment & Plan (1) Cystitis: Code(s): N30.90 - Cystitis, unspecified without hematuria Plan: Ordered Cefuroxime for 5 days. In-office Urinalysis positive with small Leuko Will send Urine for C&S. Orders: Orders AMB Urinalysis Automated Today Z13.9 - Encounter for screening, unspecified UA CC w/rflx Micro + Cult Today N30.90 - Cystitis, unspecified without hematuria Medications: New cefuroxime axetil 500 mg PO Q12H 5 days 10 tabs 0RF N30.90 - Cystitis, unspecified without hematuria Coding Level of Care Code Est Pt Level 4 (41210) Diagnoses Cystitis N30.90 Time Spent (min) 20
[2025-03-30 13:20] VITALS: BP 118/80; PULSE 81; TEMP 37.2; O2SAT 98
== END 2025-03-30 13:53 | disposition home or self-care (01) ==
PROVIDERS: PCP Internal Medicine; Visit Provider Nurse Practitioner Family
DX: N30.90 Cystitis, unspecified without hematuria (principal); Z13.9 Encounter for screening, unspecified

== ENCOUNTER 2025-10-12 15:52 | Outpatient (AMB) | payer MEDICARE, MEDICAID, SELFPAY ==
--- NOTE | 2025-10-12 16:27 | A.OFFPC_ITS ---
Vital Signs 10/12/25 16:32 Height 4 ft 10 in Weight 189 lb BMI 39.5 BP 110/80 Blood Pressure Location Rt brachial Position Sitting Respiration 16 Pulse 86 Pulse Source Pulse Oximeter Temp 98.1 F Temp Source Oral Pulse Oximetry (%) 98 Oxygen Delivery Method Room Air Intake Visit Reasons: PE Intake Note: Pt is here today for her PE Cd Manufacturing Supervisor Required: No Allergies latex Allergy (Unknown, Verified 10/12/25 16:28) Rash metoclopramide (From Reglan) Adverse Reaction (Unknown, Verified 10/12/25 16:28) Interacts with Seroquel Tobacco use date assessed: 10/12/25 Dental Screening Dental Screen Date: 10/12/25 Did you have a dental visit in the last 12 months?: Yes Did you have a dental problem in the last 6 months where you did not have access to dental care?: No Was dental information given to patient?: Patient has dentist [facility] Medical History (Updated 09/11/24 @ 12:17 by Lachelle Guerra MD) Controlled diabetes mellitus type II without complication Acute inflammatory demyelinating polyneuropathy Bipolar disorder Hypogammaglobulinemia ARDS (adult respiratory distress syndrome) Pneumonia due to 2019 novel coronavirus Obesity, morbid, BMI 40.0-49.9 Gastric paresis Esophagitis with gastritis Acquired hypothyroidism Hyperlipidemia Surgical History History of surgery (02/09/23) Hx of tooth extraction Hx of section Family History Other Adopted Social History Household Members: Family Household Members Other:: mom, dad and children Housing: House Do you presently have visiting nurse or other home services: Yes Alcohol intake: never Comment: 1:1 sitter Patient Tobacco Use Status: Former Tobacco user Tobacco use type: Cigarette e-Cigarette/Vaping Use: Never Used Second Hand Smoke Exposure: No service: No Current occupational status: disabled Gender identity: Female Cognitive needs: Yes Hearing needs: No Vision needs: Yes Female Reproductive History Menstrual Age of Menarche: 9 Questionnaire PHQ-9 Over the last 2 weeks, how often have you been bothered by any of the following problems? 1. Little interest or pleasure in doing things: not at all 2. Feeling down, depressed, or hopeless: not at all 3. Trouble falling or staying asleep, or sleeping too much: not at all 4. Feeling tired or having little energy: not at all 5. Poor appetite or overeating: not at all 6. Feeling bad about yourself - or that you are a failure or have let yourself or your family down: not at all 7. Trouble concentrating on things, such as reading the newspaper or watching television: not at all 8. Moving or speaking so slowly that other people could have noticed. Or the opposite - being so fidgety or restless that you have been moving around a lot more than usual: not at all 9. Thoughts that you would be better off or of hurting yourself in some way: not at all Total score: 0 Depression Screening Interpretation: Negative Depression Screening Done: Yes 27517 - PHQ-9 Billing: Yes Source: Developed by Drs. Dionisio Combs, Kinjal Bates, Aditya Bustillo and colleagues, with an educational kennedy from [employer]. Thrive Questionnaire Date Thrive assessed: 10/12/25 I am a: Parent/Caregiver What is your living situation today?: I have a steady place to live Within the past 12 months, did the food you bought not last and you didn't have the money to get more?: Never true Within the past 12 months, did you worry whether your food would run out before you got money to buy more?: Never true Do you have trouble paying for medicines?: No Do you have trouble getting transportation to medical appointments?: No Do you have trouble paying your heating and electricity bill?: No Do you have trouble taking care of your child, family member or friend?: No Do you have trouble with day-to-day activities such as bathing, preparing meals, shopping, managing finances, etc.?: No Are you currently unemployed and looking for a job?: No Are you interested in more education?: No Please select the resources that you would like help with: None Currently or been in a relationship where the following occur: No concerns reported THRIVE Score: 0 AUDIT C Alcohol Use Questionnaire (AUDIT-C) 1. How often do you have a drink containing alcohol?: Never Total Score: 0 Score Reviewed/Action Taken: Yes TATYANA-7 AMB Questionnaire TATYANA-7 Date TATYANA - 7 assessed: 10/12/25 Feeling nervous, anxious, or on edge: 0 = Not at all Not being able to stop or control worryin = Not at all Worrying too much about different things: 0 = Not at all Trouble relaxin = Not at all Being so restless that it is hard to sit still: 0 = Not at all Becoming easily annoyed or irritable: 0 = Not at all Feeling afraid as if something awful might happen: 0 = Not at all Total TATYANA-7 score (0-4 normal; 5-9 mild; 10-14 moderate; 15-21 severe): 0 Source: Developed by Drs. Dionisio Combs, Kinjal Bates, Aditya Bustillo and colleagues, with an educational kennedy from [employer]. Physical exam (Primary Care) Vital Signs: Last Vital Signs Temp 98.1 F 10/12/25 16:32 Pulse 86 10/12/25 16:32 Resp 16 10/12/25 16:32 BP 110/80 10/12/25 16:32 Pulse Ox 98 10/12/25 16:32 Oxygen Delivery Method Room Air 10/12/25 16:32 BMI result Body Mass Index 39.5 Tobacco/Smoking Status: Tobacco use Status Tobacco use date assessed 10/12/25 10/12/25 16:31 Patient Tobacco Use Status Former Tobacco user 10/12/25 16:31 Tobacco use type Cigarette 10/12/25 16:31 e-Cigarette/Vaping Use Never Used 10/12/25 16:31 PHQ-9: PHQ-9 Score PHQ-9: Total score 0 10/12/25 16:55 Depression Screening Interpretation: Negative Thrive Assessment: Date of Thrive Assessment Date Thrive assessed 10/12/25 10/12/25 16:31 Currently or been in a relationship where the following occur: No concerns reported Results AMB Hemoglobin A1c AMB Hemoglobin A1c 5.3 % Last Edit by Earnestine Wu CMA on 10/12/25 16:54 Results Reviewed Results Reviewed: Laboratory Last Values Hgb A1c (Clinic) 5.3 % (4.0-6.0) 10/12/25 16:46 Coding Level of Care Code Est Pt Prev Care 18-39y(71486) Diagnoses Annual visit for general adult medical examination with abnormal findings Z00.01 Cervical cancer screening Z12.4 Bipolar affective disorder, remission status unspecified F31.9 Active/Remission status: remission status unspecified Mixed hyperlipidemia E78.2 Hyperlipidemia type: mixed hyperlipidemia Controlled diabetes mellitus type II without complication E11.9 Acquired hypothyroidism E03.9 Obesity, morbid, BMI 40.0-49.9 E66.01 Acute inflammatory demyelinating polyneuropathy G61.0 Additional Codes PHQ-9 - 38395 - PHQ-9 Billing: Yes ([id number]) Assessment & Plan Assessment & Plan (1) Annual visit for general adult medical examination with abnormal findings: Code(s): Z00.01 - Encounter for general adult medical examination with abnormal findings (2) Cervical cancer screening: Code(s): Z12.4 - Encounter for screening for malignant neoplasm of cervix (3) Bipolar disorder: Code(s): F31.9 - Bipolar disorder, unspecified Category: Medical Qualifiers: Active/Remission status: remission status unspecified Qualified Code(s): F31.9 - Bipolar disorder, unspecified (4) Hyperlipidemia: Code(s): E78.5 - Hyperlipidemia, unspecified Category: Medical Qualifiers: Hyperlipidemia type: mixed hyperlipidemia Qualified Code(s): E78.2 - Mixed hyperlipidemia (5) Controlled diabetes mellitus type II without complication: Code(s): E11.9 - Type 2 diabetes mellitus without complications Category: Medical (6) Acquired hypothyroidism: Comment: negative anti TPO antibodies Code(s): E03.9 - Hypothyroidism, unspecified Category: Medical (7) Obesity, morbid, BMI 40.0-49.9: Code(s): E66.01 - Morbid (severe) obesity due to excess calories Category: Medical (8) 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, 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 Code(s): 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 Category: Medical Orders: Orders AMB Hemoglobin A1c Today Z13.9 - Encounter for screening, unspecified Lipid Panel Today E03.9 - Hypothyroidism, unspecified, E11.9 - Type 2 diabetes mellitus without complications, E66.01 - Morbid (severe) obesity due to excess calories, E78.2 - Mixed hyperlipidemia, F31.9 - Bipolar disorder, unspecified, 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, Z00.01 - Encounter for general adult medical examination with abnormal findings Thyroid Stimulating Hormone Today E03.9 - Hypothyroidism, unspecified, E11.9 - Type 2 diabetes mellitus without complications, E66.01 - Morbid (severe) obesity due to excess calories, E78.2 - Mixed hyperlipidemia, F31.9 - Bipolar disorder, unspecified, 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, Z00.01 - Encounter for general adult medical examination with abnormal findings Free T4 (Free Thyroxine) Today E03.9 - Hypothyroidism, unspecified, E11.9 - Type 2 diabetes mellitus without complications, E66.01 - Morbid (severe) obesity due to excess calories, E78.2 - Mixed hyperlipidemia, F31.9 - Bipolar disorder, unspecified, 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, Z00.01 - Encounter for general adult medical examination with abnormal findings Microalbumin, Random (w Creat) Today E03.9 - Hypothyroidism, unspecified, E11.9 - Type 2 diabetes mellitus without complications, E66.01 - Morbid (severe) obesity due to excess calories, E78.2 - Mixed hyperlipidemia, F31.9 - Bipolar disorder, unspecified, 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, Z00.01 - Encounter for general adult medical examination with abnormal findings Aspartate Amino Transferase Today E03.9 - Hypothyroidism, unspecified, E11.9 - Type 2 diabetes mellitus without complications, E66.01 - Morbid (severe) obesity due to excess calories, E78.2 - Mixed hyperlipidemia, F31.9 - Bipolar disorder, unspecified, 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, Z00.01 - Encounter for general adult medical examination with abnormal findings Alanine Aminotransferase Today E03.9 - Hypothyroidism, unspecified, E11.9 - Type 2 diabetes mellitus without complications, E66.01 - Morbid (severe) obesity due to excess calories, E78.2 - Mixed hyperlipidemia, F31.9 - Bipolar disorder, unspecified, 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, Z00.01 - Encounter for general adult medical examination with abnormal findings Basic Metabolic Panel Fasting Today E03.9 - Hypothyroidism, unspecified, E11.9 - Type 2 diabetes mellitus without complications, E66.01 - Morbid (severe) obesity due to excess calories, E78.2 - Mixed hyperlipidemia, F31.9 - Bipolar disorder, unspecified, 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, Z00.01 - Encounter for general adult medical examination with abnormal findings Complete Blood Count Auto Diff Today E03.9 - Hypothyroidism, unspecified, E11.9 - Type 2 diabetes mellitus without complications, E66.01 - Morbid (severe) obesity due to excess calories, E78.2 - Mixed hyperlipidemia, F31.9 - Bipolar disorder, unspecified, 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
[2025-10-12 16:32] VITALS: BP 110/80; PULSE 86; RESP 16; TEMP 36.7; O2SAT 98; BMI 39.5
--- OUTSIDE RECORDS SUMMARY | 2025-10-12 18:34 | XMS_ITS | Encounter Summary ---
Author Organization [facility] Address [address] [place] [address] [place] [id number] Phone Care Team Providers Care Doll Surgeon Name Role Phone Ninfa Francis NP Primary Care Provider Unknown, Unknown Primary Care Provider Ninfa Elam PERCUSSION INSTRUMENT REPAIRER Unavailable [phone] Lachelle Guerra MD Primary Care Provider Encounter Details Date Type Department Care Team (Late st Contact Info) Description 08/28/2019 Procedure Pass [facility] PERIOPERATIVE DEPT [address] [place] [phone] Social History Tobacco Use Types Packs/Day Years Used Date Smoking Tobacco: Former Smokeless Tobacco: Never Comments:Quit many years ago Alcohol Use Standard Drinks/Week Comments Yes 0 (1 standard drink = 0.6 oz pur e alcohol) socially Comments Unknown Sex and Gender Information Value Date Recorded Sex Assigned at Female 05/01/2020 2:03 PM EDT Legal Sex Female 12:57 PM EDT Gender Identity Female 05/01/2020 2:03 PM EDT Sexual Orientation Straight 05/01/2020 2: 05 PM EDT documented as of this encounter Plan of Treatment Not on file documented as of this encounter Visit Diagnoses Not on filedocumented in this encounter Care Teams Doll Surgeon Relationship Specialty Start Date End Date Ninfa Francis NP [address] [place] [address] Dr [place], [place] [address] [email or web address] PCP - General 08/15/19 Unknown, Casey, [address] [place] [address] [place] [address] PCP - General 02/18/20 03/31/20 Lachelle Guerra MD [address] [place] [address] [place] [address] PCP - General Internal Medicine 04/01/20 Ninfa Francis NP [address] [place] [address] [place] [address] [email or web address] 02/18/20 documented as of this encounter Additional Source Comments The information contained in this document represents components of the legal health record. It is not the complete legal health record.[facility]
--- OUTSIDE RECORDS SUMMARY | 2025-10-12 18:34 | XMS_ITS | Encounter Summary ---
Author Organization [facility] Address [address] [place] [id number] Phone Care Team Providers Care Customs And Immigration Officer Name Role Phone Ninfa Francis NP Primary Care Provider Unknown, Unknown Primary Care Provider Ninfa Elam REEXAMINER Unavailable [phone] Lachelle Guerra Co Primary Care Provider Encounter Details Date Type Department Care Team (Late st Contact Info) Description 08/27/2019 Procedure Pass [facility] [address] ENDO DEPT [address] [place] [address], [address] [place] [address] Social History Tobacco Use Types Packs/Day Years [...] on filedocumented in this encounter Care Teams Customs And Immigration Officer Relationship Specialty Start Date End Date Ninfa Francis NP [address] [place] [address] Dr [place] [address] [email or web address] PCP - General 08/15/19 Unknown, Casey, [address] [place] [address] Dr ANDRE Danny [place] [address] PCP - General 02/18/20 03/31/20 Lachelle Guerra MD [address] [place] [address] Dr Cruz [place] PCP - General Internal Medicine 04/01/20 Ninfa Francis NP [address] [place] [address] Dr ANDRE Danny [place] [address] [email or web address] 02/18/20 documented as of this encounter Additional Source Comments The information contained in this document represents components of the legal health record. It is not the complete legal health record.[facility]
--- OUTSIDE RECORDS SUMMARY | 2025-10-12 18:34 | XMS_ITS | Encounter Summary ---
Author Organization [facility] Address [address] [place] [phone] Phone Care Team Providers Care Painter Ski Edge Name Role Phone Ninfa Francis NP Primary Care Provider Unknown, Unknown Primary Care Provider Nnifa Elam SCREWHEAD POLISHER Unavailable [phone] Lachelle Guerra MD Primary Care Provider Encounter Details Date Type Department Care Team (Late st Contact Info) Description 08/24/2019 Procedure Pass [facility] [address] [place] [address] Social History Tobacco Use Types Packs/Day Years Used Date Smoking Tobacco: Never Assessed Comments Unknown Sex and Gender Information Value [...] on filedocumented in this encounter Care Teams Painter Ski Edge Relationship Specialty Start Date End Date Ninfa Francis NP [address] [place] [address] [place] [address] [email or web address] PCP - General 08/15/19 Unknown, Unknown, [address] [place] [address] [address] [place] [address] PCP - General 02/18/20 03/31/20 Lachelle Guerra MD [address] [place] [address] [place] [address] PCP - General Internal Medicine 04/01/20 Ninfa Francis NP [address] [place] [address] [place] [address] [email or web address] 02/18/20 documented as of this encounter Additional Source Comments The information contained in this document represents components of the legal health record. It is not the complete legal health record.[facility]
--- OUTSIDE RECORDS SUMMARY | 2025-10-12 18:34 | XMS_ITS | Encounter Summary ---
Author Organization [facility] Address [address] [place] [address] [place] [phone] Phone Care Team Providers Care Data Management Manager Name Role Phone Ninfa Francis NP Primary Care Provider Unknown, Unknown Primary Care Provider Ninfa Elam PLANNING OFFICIAL Unavailable [phone] Lachelle Guerra MD Primary Care Provider Encounter Details Date Type Department Care Team (Late st Contact Info) Description 09/04/2019 Procedure [place] [facility] [place] [address] [place] [phone] Social History Tobacco Use Types Packs/Day Years [...] on filedocumented in this encounter Care Teams Data Management Manager Relationship Specialty Start Date End Date Ninfa Francis NP [address] [place] [address] [place], [place] [address] [email or web address] PCP - General 08/15/19 Unknown, Casey, [address] [place] [address] [place] [address] PCP - General 02/18/20 03/31/20 Lachelle Guerra MD [address] [place] [address] [place] [address] PCP - General Internal Medicine 04/01/20 Ninfa Francis NP [address] [place] [address] [place] [address] [email or web address] 02/18/20 documented as of this encounter Additional Source Comments The information contained in this document represents components of the legal health record. It is not the complete legal health record.[facility]
--- OUTSIDE RECORDS SUMMARY | 2025-10-12 18:34 | XMS_ITS | Encounter Summary ---
Author Organization [facility] Address [address] [place] [address] Phone Care Team Providers Care Drilling Machine Operator Name Role Phone Ninfa Francis NP Primary Care Provider Unknown, Unknown Primary Care Provider Ninfa Elam TUNNEL KILN FIRER Unavailable [phone] Lachelle Guerra Co Primary Care Provider Encounter Details Date Type Department Care Team (Late st Contact Info) Description 08/17/2019 Procedure Pass [facility], [place] [address] [place] [address], 6th [place] [address] Social History Tobacco Use Types Packs/Day Years [...] on filedocumented in this encounter Care Teams Drilling Machine Operator Relationship Specialty Start Date End Date Ninfa Francis NP [address] [place] [address] [place] [address] [email or web address] PCP - General 08/15/19 Unknown, Casey, [address] [place] [address] Dr ANDRE Danny [place] [address] PCP - General 02/18/20 03/31/20 Lachelle Guerra MD [address] [place] [address] Dr Cruz [place] PCP - General Internal Medicine 04/01/20 Ninfa Francis NP [address] [place] [address] Dr ANDRE Danny [place] [address] [email or web address] 02/18/20 documented as of this encounter Additional Source Comments The information contained in this document represents components of the legal health record. It is not the complete legal health record.[facility]
--- OUTSIDE RECORDS SUMMARY | 2025-10-12 18:35 | XMS_ITS | Encounter Summary ---
Author Organization [facility] Address [address] [place] [address] Phone Care Team Providers Care Lathe Set Up Person Name Role Phone Ninfa Francis NP Primary Care Provider Unknown, Unknown Primary Care Provider Ninfa Elam HUB LEAD Unavailable [phone] Lachelle Guerra MD Primary Care Provider Encounter Details Date Type Department Care Team (Late st Contact Info) Description 08/24/2019 Procedure Pass [facility] [address] [place] [address] Social History Tobacco Use Types Packs/Day Years [...] on filedocumented in this encounter Care Teams Lathe Set Up Person Relationship Specialty Start Date End Date Ninfa Francis NP [address] [place] [address] [place] [address] [email or web address] PCP - General 08/15/19 Unknown, Unknown, [address] [place] [address] Dr [address] [place] [address] PCP - General 02/18/20 03/31/20 Lachelle Guerra MD [address] [place] [address] [place] [address] PCP - General Internal Medicine 04/01/20 Ninfa Francis NP [address] [place] [address] [place] [address] [email or web address] 02/18/20 documented as of this encounter Additional Source Comments The information contained in this document represents components of the legal health record. It is not the complete legal health record.[facility]
--- OUTSIDE RECORDS SUMMARY | 2025-10-12 18:35 | XMS_ITS | Encounter Summary ---
Author Organization [facility] Address [address] [place] [address] Phone Care Team Providers Care Capsule Filler Name Role Phone FrancisNinfa cruz SEASONAL CLERK Unavailable [phone] Lachelle Guerra MD Primary Care Provider Encounter Details Date Type Department Care Team (Late st Contact Info) Description 06/11/2020 Telephone Division of Immunologic, Inflammatory, and Infectious Neurological Disorders [address] [facility], 7th Floor, [address] [place] [address] Jermaine Poole MD [email or web address] Social History Tobacco Use Types Packs/Day Years [...] on filedocumented in this encounter Care Teams Capsule Filler Relationship Specialty Start Date End Date Lachelle Guerra MD [facility] Dr Nancy [place] [id number] PCP - General Internal Medicine 04/01/20 Ninfa Francis NP [address] [place] [address] Dr [place], [place] [address] [email or web address] 02/18/20 documented as of this encounter Additional Source Comments The information contained in this document represents components of the legal health record. It is not the complete legal health record.[facility]
--- OUTSIDE RECORDS SUMMARY | 2025-10-12 18:35 | XMS_ITS | Clinical Summary ---
Author Organization [facility] Address [address] [place] [address] Phone Care Team Providers Care Charger Operator Name Role Phone Francis, Ninfa Costa AIRCRAFT DESIGN ENGINEER Unavailable [phone] Lachelle Guerra MD Primary Care Provider Allergies Active Allergy Reactions Criticality Noted Date Comments Latex Rash Low 08/16/2019 Mild rash Medications buPROPion (WELLBUTRIN) 100 MG immediate release tablet 0.5 tablets (50 mg total) by Gastrostomy Tube route 2 (two) times a day with meals. 30 tablet Active levothyroxine (SYNTHROID, LEVOTHROID) 75 MCG tablet 1 tablet (75 mcg total) by Gastrostomy Tube route every morning. 7 tablet 019 Active QUEtiapine (SEROQUEL) 300 MG tablet 2 tablets (600 mg total) by Gastrostomy Tube route nightly at bedtime. 30 tablet 019 Active calcium carbonate-vitamin D3 625 mg (250 elemental)-125 units Tab 2 tablets by Gastrostomy Tube route 2 (two) times a day with meals. Active melatonin 5 mg Tab 1 tablet (5 mg total) by Gastrostomy Tube route daily. Active Additional Information Patient taking differently: 3 mgGastrostomy Tube2 times daily, Reported on 03/13/2022 [id number] ous gluconate (CENTRUM WITH IRON) 9 mg iron/15 mL Liqd 15 mL by Gastrostomy Tube route 2 (two) times a day. Active OXcarbazepine (TRILEPTAL) 150 MG tablet 3 tablets (450 mg total) by Gastrostomy Tube route 2 (two) times a day. Active pantoprazole (PROTONIX) 40 MG tablet Take 40 mg by mouth daily. Active immune globulin, human, (GAMMAGARD LIQUID) 10 % Soln IV injectionIndicati ons:inflammatory polyneuropathy first dose 08/2020 (25g/dx5d), 05/04/20 second cycle Indications: inflammatory polyneuropathy first dose 08/2020 (25g/dx5d), 05/04/20 second cycle Active magnesium oxide (MAG-OX) 400 mg (241.3 mg elemental) tablet Active b complex vitamins capsule Take 1 capsule by mouth daily. Active insulin degludec U-200 (TRESIBA FLEXTOUCH) 200 unit/mL (3 mL) InPn injection penIndications:ty pe 2 diabetes mellitus Inject 20 Units under the skin. Indications: type 2 diabetes mellitus Active metFORMIN (GLUCOPHAGE) 500 MG tablet 500 mg 2 (two) times a day. Active pravastatin (PRAVACHOL) 20 MG tablet 20 mg nightly at bedtime. Active benztropine (COGENTIN) 1 MG tablet Take 1 mg by mouth 2 (two) times a day. Active traZODone (DESYREL) 100 MG tablet Take 100 mg by mouth nightly at bedtime. Active pregabalin (LYRICA) 300 MG capsuleIndication s:Autoimmune autonomic neuropathy TAKE 1 CAPSULE (300 MG TOTAL) BY MOUTH 2 TIMES A DAY. 180 capsule Active pregabalin (LYRICA) 300 MG capsuleIndication s:Autoimmune autonomic neuropathy Take 1 capsule (300 mg total) by mouth 2 (two) times a day. 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 Encounters Date Type Department Care Team Description 09/23/2025 Refill Division of Immunologic, Inflammatory, and Infectious Neurological Disorders [address] [place] [address], 7[address] Floor, [address] [place] [address] Chaitanya Rubalcava MD Medication Refill from Last 3 Months Social History Tobacco Use Types Packs/Day Years Used Date Smoking Tobacco: Former Smokeless Tobacco: Never Tobacco Cessation:Counseling Given: Not Answered Comments:Quit many years ago Alcohol Use Standard Drinks/Week Comments Yes 0 (1 standard drink = 0.6 oz pur e alcohol) socially Education Answer Date Recorded Are you interested in more education? Not on viri e 03/09/2023 Are you concerned about learning? Not on file 03/09/2023 No 03/09/2023 No 03/09/2023 Digital Access Answer Date Recorded No 04/07/2023 No 04/07/2023 Reliable internet access at home? Not on file 04/07/2023 Device with a working camera? Not on file Comments Unknown Sex and Gender Information Value Date Recorded Sex Assigned at Female 05/01/2020 2:03 PM EDT Legal Sex Female 12:57 PM EDT Gender Identity Female 05/01/2020 2:03 PM EDT Sexual Orientation Straight 05/01/2020 2: 05 PM EDT Last Filed Vital Signs Vital Sign Reading Time Taken Comments Blood Pressure 98/66 11/17/2024 10:26 AM EST Pulse 78 11/17/2024 10:26 AM EST Temperature 35.7 C (96.3 F) 11/17/2024 10:26 AM EST Respiratory Rate 18 07/07/2021 12:57 PM EDT Oxygen Saturation 99% 11/17/2024 10:26 AM EST Inhaled Oxygen Concentration 21% 10/04/2019 4 :20 PM EST Weight 89.8 kg (198 lb) 11/17/2024 10:26 AM EST Height 150.5 cm (4' 11.25 ) 11/17/2024 10:26 AM EST Body Mass Index 39.65 11/17/2024 10:26 AM EST Plan of Treatment Health Maintenance Due Date Last Done Comments Adult Td,Tdap Booster 1989 DEPRESSION SCREENING 2001 SMOKING Hx and SMOKELESS TOBACCO SCREENING 2002 PAP SMEAR 2010 TSH LEVEL 09/23/2020 09/23/2019, 1106/2019, 09/15/2019, Additional history exists CREATININE LEVEL 04/09/2021 04/09/2020, 06/2020, 10/24/2019, Additional history exists SCREENING FOR DIABETES 01/15/2024 02/18/2020, 2018 BLOOD PRESSURE 05/17/2025 11/17/2024 INFLUENZA VACCINE (#1) 2025 07/29/2018 COVID-19 VACCINE ( season) 2025 04/01/2021, 03/11/2021 HIV ONE-TIME SCREENING (18-65 YEARS) Completed 08/22/2019 HEPATITIS C SCREENING Completed 09/18/2019 , 09/18/2019, 08/19/2019 HEPATITIS A VACCINES Aged Out No long er eligible based on patient's age to complete this topic HIB VACCINES Aged Out No longer eligi ble based on patient's age to complete this topic MENINGOCOCCAL VACCINES (ACWY) Aged Out No longer eligible based on patient's age to complete this topic MENINGOCOCCAL VACCINES (B) Aged Out N o longer eligible based on patient's age to complete this topic PNEUMOCOCCAL VACCINES (0-49 years) Aged Out No longer eligible based on patient's age to complete this topic Medical Devices Not on file Procedures Procedure Name Priority Date/Time Associated Diagnosis Comments COMPREHENSIVE METABOLIC PANEL (CMP) STAT 04/09/2020 1:20 PM EDT TSH WITH REFLEX Routine 09/23/2019 5:00 AM EST HEPATITIS B SURFACE ANTIGEN Routine 09/18/2019 10:06 AM EST GLUCOSE Routine 09/07/2019 6:45 AM EDT from Last 3 Months or Most Recently Relevant to Health Maintenance Results * (ABNORMAL) Comprehensive metabolic panel (04/09/2020 1:20 PM EDT) SODIUM 139 135 - 145 mmol/L [facility] POTASSIUM 4.3 3.4 - 5.0 mmol/L [facility] CHLORIDE 103 98 - 108 mmol/L [facility] CO2 24 23 - 32 mmol/L [facility] BUN 15 8 - 25 mg/dL [facility] CREATININE 0.63 0.60 - 1.50 mg/dL [facility] GLUCOSE 141(H) 70 - 110 mg/dL [facility] ALBUMIN 4.2 3.3 - 5.0 g/dL [facility] TOTAL PROTEIN 6.7 6.0 - 8.3 g/dL [facility] CALCIUM 9.1 8.5 - 10.5 mg/dL [facility] ALKALINE PHOSPHATASE 104(H) 30 - 100 U/L [facility] TOTAL BILIRUBIN 0.2 0.0 - 1.0 mg/dL [facility] AST 18 9 - 32 U/L [facility] ALT 21 7 - 33 U/L [facility] GLOBULIN 2.5 1.9 - 4.1 g/dL [facility] EGFR 120 >59 mL/min/1. 73m2 [facility] Comment:If patient is black, multiply result by 1.159. Estimated glomerular filtration rate calculated using the CKD-EPI equation. ANION GAP 12 3 - 17 mmol/L [facility] Blood 04/09/2020 1:20 PM EDT 04/09/2020 1:32 PM EDT us Deirdre Briceño [facility] LAB BLOOD BKR ORDERABLES Final R esult [address] [address] * TSH with reflex (09/23/2019 5:00 AM EST) SCREENING PANEL: TSH 0.75 0.40 - 5.00 uIU/mL [facility] Blood 09/23/2019 5:00 AM EST 09/23/2019 5:07 AM EST us Viki Brenner SCHO[employer] BUS DRIVER/TEACHER ASSISTANT LAB BLOOD BKR ORDERABLES Final Result Performing Organization Address City/[facility]/ZIP Co de Phone Number [address] [address] * Hepatitis B surface antigen (09/18/2019 10:06 AM EST) HBV SURFACE ANTIGEN Negative Negative [facility] Blood 09/18/2019 10:0 6 AM EST 09/18/2019 10:22 AM EST us Cheryl Stevenjana CHAKRABORTY LAB BLOOD BKR ORDERABLES Kathia l Result Performing Organization Address [facility] Co de Phone Number [address] [address] * (ABNORMAL) Glucose (09/07/2019 6:45 AM EDT) GLUCOSE 150(H) 70 - 110 mg/dL [facility] 09/07/2019 6:45 AM EDT 09/07/2019 12:43 PM EDT us Valerie Monk MD LAB BLOOD BKR ORDERABLES Final R esult Performing Organization Address [facility] de Phone Number [address] [address] from Last 3 Months or Most Recently Relevant to Health Maintenance Insurance [facility] MEDICARE PART A & B [place] B Member Subscriber Plan / Payer (Ef fective 2022-Present) Name:Susy Wolf Member ID:[id number] Relation to Subscriber:Self Name:Susy Wolf Subscriber ID:[id number] Payer ID:[id number] Group ID:Not on file Type:Medicare Address: [facility] [employer] [address] [place], [place] [id number] [place] B Member Subscriber Plan / Payer (Ef fective 2022-Present) Name:Susy Member ID:[id number] Relation to Subscriber:Self Name:Susy Wolf Subscriber ID:[id number] Payer ID:[id number] Group ID:Not on file Type:Medicare Address: [facility] [address] [place] [address] [place] B Member Subscriber Plan / Payer (Ef fective 2022-Present) Name:Susy Wolf Member ID:[id number] Relation to Subscriber:Self Name:Susy Wolf Subscriber ID:[id number] Payer ID:[id number] Group ID:Not on file Type:Medicare Address: [facility] [address] [place] [address] [place] & B [address] [id number] Advance Directives For more information, please contact: [phone] (9AM - 5PM [place], Sunday-Sunday) * Full Code (Presumed) (Latest Code Status on File) Date Activated Date Inactivated Comments 04/09/2020 12:52 PM * Full Code (Confirmed) Date Activated Date Inactivated Comments 08/16/2019 10:19 PM 10/06/2019 6:51 PM Question Answer Comments Code Status Confirmed With: Patient Code Status Communicated To: Inpatient Attending * Full Code (Presumed) Date Activated Date Inactivated Comments 08/16/2019 8:18 PM 08/16/2019 10:19 PM Care Teams Charger Operator Relationship Specialty Start Date End Date Lachelle Guerra MD [facility] [place] [address] PCP - General Internal Medicine 04/01/20 Ninfa Francis NP [address] [place] [address] [place] [address] [email or web address] 02/18/20 Additional Source Comments The information contained in this document represents components of the legal health record. It is not the complete legal health record.[facility]
--- OUTSIDE RECORDS SUMMARY | 2025-10-12 18:35 | XMS_ITS | Encounter Summary ---
Author Organization [facility] Address [address] [place] [address] [place] [address] Phone Care Team Providers Care Dye Worker Name Role Phone Ninfa Francis NP Primary Care Provider Unknown, Unknown Primary Care Provider Ninfa Elam UTILITY HELICOPTER REPAIRER Unavailable [phone] Lachelle Guerra Co Primary Care Provider Encounter Details Date Type Department Care Team (Late st Contact Info) Description 09/22/2019 Procedure Pass [facility] [address] [place] [address], 2nd [place] [address] Social History Tobacco Use Types Packs/Day Years [...] on filedocumented in this encounter Care Teams Dye Worker Relationship Specialty Start Date End Date Ninfa Francis NP [address] [place] [address] [place] [address] [email or web address] PCP - General 08/15/19 Unknown, Casey, [address] [place] [address] Dr ANDRE Danny [place] [address] PCP - General 02/18/20 03/31/20 Lachelle Guerra MD [address] [place] [address] [place] [address] PCP - General Internal Medicine 04/01/20 Ninfa Francis NP [address] [place] [address] Dr ANDRE Danny [place] [address] [email or web address] 02/18/20 documented as of this encounter Additional Source Comments The information contained in this document represents components of the legal health record. It is not the complete legal health record.[facility]
--- OUTSIDE RECORDS SUMMARY | 2025-10-12 18:35 | XMS_ITS | Encounter Summary ---
Author Organization [facility] Address [address] [place] [address] Phone Care Team Providers Care Timber Trimmer Name Role Phone Ninfa Francis NP Primary Care Provider Unknown, Unknown Primary Care Provider Ninfa Elam PRODUCTION BROACHER Unavailable [phone] Lachelle Guerra MD Primary Care Provider Encounter Details Date Type Department Care Team (Late st Contact Info) Description 08/24/2019 Procedure Pass [facility] [address] [place] [address] Social History Tobacco Use Types Packs/Day Years [...] on filedocumented in this encounter Care Teams Timber Trimmer Relationship Specialty Start Date End Date Ninfa Francis NP [address] [place] [address] [place] [address] [email or web address] PCP - General 08/15/19 Unknown, Unknown, [address] [place] [address] Dr [address] [place] [address] PCP - General 02/18/20 03/31/20 Lachlele Guerra MD [address] [place] [address] [place] [address] PCP - General Internal Medicine 04/01/20 Ninfa Francis NP [address] [place] [address] [place] [address] [email or web address] 02/18/20 documented as of this encounter Additional Source Comments The information contained in this document represents components of the legal health record. It is not the complete legal health record.[facility]
--- OUTSIDE RECORDS SUMMARY | 2025-10-12 18:35 | XMS_ITS | Encounter Summary ---
Author Organization [facility] Address [address] [place] [address] Phone Care Team Providers Care Fast Food Manager Name Role Phone Unknown, Unknown Primary Care Provider Ninfa Elam MORTAR MIXER OPERATOR Unavailable [phone] Lachelle Guerra MD Primary Care Provider Encounter Details Date Type Department Care Team (Latest Contact Info) Description 02/18/2020 Transcribe Orders [facility] Therapeutic Phlebotomy [address] [place] [address] Reid Schrader MD, [address] [place] [address] [email or web address] Intermittent acute porphyria syndrome (Primary Dx) Social History Tobacco Use Types Packs/Day Years [...] on file documented as of this encounter Procedures Procedure Name Priority Date/Time Associated Diagnosis Comments LDH Routine 02/18/2020 1:27 PM EDT Intermittent acute porphyria syndrome COMPREHENSIVE METABOLIC PANEL (CMP) Routine 02/18/2020 1:27 PM EDT Intermittent acute porphyria syndrome FOLATE Routine 02/18/2020 1:27 PM EDT Intermittent acute porphyria syndrome FERRITIN Routine 02/18/2020 1:27 PM EDT Intermittent acute porphyria syndrome VITAMIN B12 Routine 02/18/2020 1:27 PM EDT Intermittent acute porphyria syndrome SERUM PROTEIN ELECTROPHORESIS Routine 02/18/2020 11:50 AM EDT Intermittent acute porphyria syndrome RETICULOCYTES Routine 02/18/2020 11:50 AM EDT Intermittent acute porphyria syndrome ERYTHROPOIETIN LEVEL Routine 02/18/2020 11:50 AM EDT Intermittent acute porphyria syndrome SEDIMENTATION RATE (ESR) Routine 02/18/2020 11:50 AM EDT Intermittent acute porphyria syndrome HC BLOOD COUNT COMPLETE AUTO&AUTO DIFRNTL WBC Routine 02/18/2020 11:50 AM EDT Intermittent acute porphyria syndrome documented in this encounter Results * (ABNORMAL) Folate (02/18/2020 1:27 PM EDT) FOLIC ACID >20.0(H) 4.2 - 19.9 ng/mL [facility] Blood 02/18/2020 1:27 PM EDT 02/18/2020 1:33 PM EDT us Reid Schrader MD, DPHIL LAB BLOOD BKR ORDERAB LES Final Result [facility] [address] [place] [address] * LDH (02/18/2020 1:27 PM EDT) LDH 170 118 - 273 U/L [facility] Blood 02/18/2020 1:27 PM EDT 02/18/2020 1:33 PM EDT us Reid Schrader MD, DPINL LAB BLOOD BKR ORDERAB LES Final Result Performing Organization Address [facility] Co de Phone Number [address] [address] * Vitamin B12 (02/18/2020 1:27 PM EDT) VITAMIN B12 970 232 - 1,245 pg/mL [facility] Blood 02/18/2020 1:27 PM EDT 02/18/2020 1:33 PM EDT us Reid Schrader MD, DPINL LAB BLOOD BKR ORDERAB LES Final Result Performing Organization Address [facility] Co de Phone Number [address] [address] * Ferritin (02/18/2020 1:27 PM EDT) FERRITIN 61 13 - 150 ug/L [facility] Blood 02/18/2020 1:27 PM EDT 02/18/2020 1:33 PM EDT us Reid Schrader MD, [facility]KR ORDERAB LES Final Result Performing Organization Address [facility] Co de Phone Number [address] [address] * (ABNORMAL) Comprehensive metabolic panel (02/18/2020 1:27 PM EDT) SODIUM 141 133 - 146 mmol/L [facility] POTASSIUM 3.7 3.3 - 5.1 mmol/L [facility] CHLORIDE 102 96 - 108 mmol/L [facility] CO2 25 21 - 35 mmol/L [facility] BUN 13 6 - 19 mg/dL [facility] CREATININE 0.60 0.5 - 1.5 mg/dL [facility] GLUCOSE 84 70 - 99 mg/dL [facility] ALBUMIN 4.4 3.9 - 4.8 g/dL [facility] TOTAL PROTEIN 6.9 6.5 - 8.0 g/dL [facility] CALCIUM 9.9 8.4 - 10.3 mg/dL [facility] ALKALINE PHOSPHATASE 131(H) 39 - 117 U/L [facility] TOTAL BILIRUBIN 0.2 0.0 - 1.2 mg/dL [facility] AST 20 0 - 37 U/L [facility] ALT 26 0 - 40 U/L [facility] GLOBULIN 2.5 1 - 4.8 g/dL [facility] EGFR >120 >59 mL/min/1.7 3m2 [facility] Comment:If patient is black, multiply result by 1.159. Estimated glomerular filtration rate calculated using the CKD-EPI equation. ANION GAP 18 10 - 20 mmol/L [facility] Blood 02/18/2020 1:27 PM EDT 02/18/2020 1:33 PM EDT us Reid Schrader MD, DPINMira LAB BLOOD BKR ORDERAB LES Final Result [address] [address] * Erythropoietin level (02/18/2020 11:50 AM EDT) ERYTHROPOIETIN 8.9 2.6 - 18.5 mIU/mL [facility] Blood 02/18/2020 11:5 0 AM EDT 02/18/2020 2:40 PM EDT us Reid Schrader MD, STEWINMira LAB BLOOD ORDERABLES Final Result [facility] [address] [place] [address] * Serum protein electrophoresis W/O Immunoglobulins and Immunofixation (02/18/2020 11:50 AM EDT) TOTAL PROTEIN 6.6 6.3 - 7.9 g/dL [facility] [address] ALBUMIN 3.5 3.4 - 4.7 g/dL [facility] DR ALPHA-1 GLOBULIN 0.3 0.1 - 0.3 g/dL [facility] DR ALPHA-2 GLOBULIN 1.0 0.6 - 1.0 g/dL [facility] DR BETA-GLOBULIN 0.9 0.7 - 1.2 g/dL [facility] DR GAMMA-GLOBULIN 0.8 0.6 - 1.6 g/dL [facility] A/G RATIO 1.16 [facility] DR Haley SPIKE Test component not applicable or not reported. g/dL [facility] DR Haley SPIKE Test component not applicable or not reported. g/dL [facility] IMPRESSION SEE NOTE [facility] Comment: (NOTE) No apparent monoclonal protein on serum electrophoresis. Blood 02/18/2020 11:5 0 AM EDT 02/18/2020 2:40 PM EDT us Reid Schrader MD, STEWINMira LAB BLOOD BKR ORDERAB LES Final Result [facility] [address] [place] [address] * (ABNORMAL) Reticulocytes (02/18/2020 11:50 AM EDT) RETIC (%) 2.1(H) 0.6 - 1.9 % [facility] RETIC (ABSOLUTE) 0.0909(H) 0.0164 - 0.0776 M/uL [facility] RETIC HGB EQUIV 34.6 30.6 - 40.7 pg [facility] Retics, immature(%) 6.6 3.0 - 15.9 % [facility] Blood 02/18/2020 11:5 0 AM EDT 02/18/2020 1:33 PM EDT us Reid Schrader MD, DPINL LAB BLOOD BKR ORDERAB LES Final Result [address] [address] * Sedimentation rate (ESR) (02/18/2020 11:50 AM EDT) ESR 13 0 - 20 mm/h [facility] Blood 02/18/2020 11:5 0 AM EDT 02/18/2020 1:33 PM EDT Reid Schrader MD, DPINL LAB BLOOD BKR ORDERAB LES Final Result Performing Organization Address City/[facility]/ZIP Co de Phone Number [address] [address] * (ABNORMAL) CBC and differential (02/18/2020 11:50 AM EDT) WBC 6.21 4.00 - 11.00 K/uL [facility] Comment:Note Reference Range updates to all CBC and Differential results. RBC 4.31 3.72 - 5.30 M/uL [facility] HGB 12.3 10.6 - 15.5 g/dL [facility] Comment:Note updated Referen ce Ranges for all CBC and Differential results. HCT 39.0 32.0 - 45.0 % [facility] PLT 214 140 - 430 K/uL [facility] MCV 90.5 78.0 - 97.0 fL [facility] MCH 28.5 25.0 - 33.0 pg [facility] MCHC 31.5(L) 32.0 - 36.0 g/dL [facility] RDW 14.1 11.0 - 16.0 % [facility] MPV 10.2 8.4 - 12.8 fl [facility] NRBC 0.00 0 /100 WBCs [facility] ABSOLUTE NRBC 0.00 0 K/uL [facility] DIFF METHOD Auto [facility] NEUTS 57.3 43.0 - 75.0 % [facility] LYMPHS 18.5 18.2 - 47.4 % [facility] MONOS 5.3 4.00 - 11.00 % [facility] EOS 17.7(H) 0.0 - 8.0 % [facility] BASOS 1.0 0.0 - 2.0 % [facility] Granulocytes, immature (%) 0.2 0.0 - 0.9 % [facility] ABSOLUTE NEUTS 3.56 1.80 - 7.70 K/uL [facility] ABSOLUTE LYMPHS 1.15 1.00 - 3.10 K/uL [facility] ABSOLUTE MONOS 0.33 0.20 - 0.80 K/uL [facility] ABSOLUTE EOS 1.10(H) 0.00 - 0.80 K/uL [facility] ABSOLUTE BASOS 0.06 0.00 - 0.09 K/uL [facility] Granulocytes, immature 0.01 0.00 - 0.05 K/uL [facility] Blood 02/18/2020 11:5 0 AM EDT 02/18/2020 1:33 PM EDT Reid Schrader MD, DPHIL LAB BLOOD BKR ORDERAB LES Final Result [facility] [address] [place] [address] documented in this encounter Visit Diagnoses Diagnosis 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 It is not the complete legal health record.[facility]
--- OUTSIDE RECORDS SUMMARY | 2025-10-12 18:35 | XMS_ITS | Encounter Summary ---
Author Organization [facility] Address [address] [place] [address] Phone Care Team Providers Care Website Programmer Name Role Phone Ninfa Francis NP Primary Care Provider Unknown, Unknown Primary Care Provider Ninfa Elam CHARGING MANIPULATOR Unavailable [phone] Lachelle Guerra MD Primary Care Provider Encounter Details Date Type Department Care Team (Late st Contact Info) Description 08/24/2019 Procedure Pass Located Within [facility] Imaging [address] [place] [address] Social History Tobacco Use Types Packs/Day Years [...] on filedocumented in this encounter Care Teams Website Programmer Relationship Specialty Start Date End Date Ninfa Francis NP [address] [place] [address] [place] [address] [email or web address] PCP - General 08/15/19 Unknown, Unknown, [address] [place] [address] Dr [address]RE [address] [place] [address] PCP - General 02/18/20 03/31/20 Lachelle Guerra MD [address] [place] [address] [place] [address] PCP - General Internal Medicine 04/01/20 Ninfa Francis NP [address] [place] [address] [place] [address] [email or web address] 02/18/20 documented as of this encounter Additional Source Comments The information contained in this document represents components of the legal health record. It is not the complete legal health record.[facility]
--- OUTSIDE RECORDS SUMMARY | 2025-10-12 18:35 | XMS_ITS | Encounter Summary ---
Author Organization [facility] Address [address] [place] [address] Phone Care Team Providers Care Charge Preparation Technician Name Role Phone Ninfa Francis NP Primary Care Provider Unknown, Unknown Primary Care Provider Ninfa Elam DISTRICT MANAGER PRIMARY CARE SALES Unavailable [phone] Lachelle Guerra MD Primary Care Provider Encounter Details Date Type Department Care Team (Late st Contact Info) Description 09/10/2019 Ophth Exam [place] Consult from [address] [address] Ford Herron MD, PhD [address] [place] [address], [place] [address] [email or web address] Social History Tobacco Use Types Packs/Day Years [...] on filedocumented in this encounter Care Teams Charge Preparation Technician Relationship Specialty Start Date End Date Ninfa Francis NP [address] [place] [address] [place] [address] [email or web address] PCP - General 08/15/19 Unknown, Casey, MD [address] [place] [address] [place] [address] PCP - General 02/18/20 03/31/20 Lachelle Guerra MD [address] [place] [address] [place] [address] PCP - General Internal Medicine 04/01/20 Ninfa Francis NP [address] [place] [address] [place] [address] [email or web address] 02/18/20 documented as of this encounter Additional Source Comments The information contained in this document represents components of the legal health record. It is not the complete legal health record.[facility]
--- OUTSIDE RECORDS SUMMARY | 2025-10-12 18:35 | XMS_ITS | Encounter Summary ---
Author Organization [facility] Address [address] [place] [address] Phone Care Team Providers Care Package Handler Name Role Phone Ninfa Francis NP Primary Care Provider Unknown, Unknown Primary Care Provider Ninfa Elam PROSPECTING DRILLER HELPER Unavailable [phone] Lachelle Guerra Co Primary Care Provider Encounter Details Date Type Department Care Team (Late st Contact Info) Description 09/18/2019 Transcribe Orders [address], [address] [place] [address] Madisyn Hill [address] [place] [address] [phone] [email or web address] Social History Tobacco Use Types Packs/Day Years [...] on filedocumented in this encounter Care Teams Package Handler Relationship Specialty Start Date End Date Ninfa Francis NP [address] [place] [address] [place] [address] [email or web address] PCP - General 08/15/19 Unknown, Casey, [address] [place] [address] [place] [address] PCP - General 02/18/20 03/31/20 Lachelle Guerra MD [address] [place] [address] [place] [address] PCP - General Internal Medicine 04/01/20 Ninfa Frnacis NP [address] [place] [address] [place] [address] [email or web address] 02/18/20 documented as of this encounter Additional Source Comments The information contained in this document represents components of the legal health record. It is not the complete legal health record.[facility]
--- OUTSIDE RECORDS SUMMARY | 2025-10-12 18:35 | XMS_ITS | Encounter Summary ---
Author Organization [facility] Address [address] [place] [address] Phone Care Team Providers Care Hydro Station Operator Name Role Phone Ninfa Francis NP Primary Care Provider Unknown, Unknown Primary Care Provider Ninfa Elam GOVERNMENT DOCUMENTS LIBRARIAN Unavailable Lachelle Guerra Co Primary Care Provider Encounter Details Date Type Department Care Team (Late st Contact Info) Description 08/17/2019 Procedure Pass [facility] [address] [place] [address], 6th [place] [address] Social History Tobacco Use Types Packs/Day Years [...] on filedocumented in this encounter Care Teams Hydro Station Operator Relationship Specialty Start Date End Date Ninfa Francis NP [address] [place] [address] [place] [address] [email or web address] PCP - General 08/15/19 Unknown, Casey, [address] [place] [address] Dr ANDRE Danny [place] [address] PCP - General 02/18/20 03/31/20 Lachelle Guerra MD [address] [place] [address] [place] PCP - General Internal Medicine 04/01/20 Ninfa Francis NP [address] [place] [address] Dr ANDRE Danny [place] [address] [email or web address] 02/18/20 documented as of this encounter Additional Source Comments The information contained in this document represents components of the legal health record. It is not the complete legal health record.[facility]
--- OUTSIDE RECORDS SUMMARY | 2025-10-12 18:35 | XMS_ITS | Encounter Summary ---
Author Organization [facility] Address [address] [place] [address] Phone Care Team Providers Care Long Winder Tender Name Role Phone Ninfa Francis NP Primary Care Provider Unknown, Unknown Primary Care Provider Ninfa Elam AREA SAFETY MANAGER Unavailable [phone] Lachelle Guerra Co Primary Care Provider Encounter Details Date Type Department Care Team (Late st Contact Info) Description 09/18/2019 Transcribe Orders [address], [address] [place] [address] Madisyn Hill [address] [place] [address] [phone] [email or web address] Social History Tobacco Use Types Packs/Day Years [...] on filedocumented in this encounter Care Teams Long Winder Tender Relationship Specialty Start Date End Date Ninfa Francis NP [address] [place] [address] [place] [address] [email or web address] PCP - General 08/15/19 Unknown, Casey, [address] [place] [address] [place] [address] PCP - General 02/18/20 03/31/20 Lachelle Guerra MD [address] [place] [address] [place] [address] PCP - General Internal Medicine 04/01/20 Ninfa Francis NP [address] [place] [address] [place] [address] [email or web address] 02/18/20 documented as of this encounter Additional Source Comments The information contained in this document represents components of the legal health record. It is not the complete legal health record.[facility]
== END 2025-10-12 17:13 | disposition home or self-care (01) ==
LOC: HO.HMCC 15:53
PROVIDERS: PCP Internal Medicine; Visit Provider Internal Medicine
DX: Z13.9 Encounter for screening, unspecified (principal)

== ENCOUNTER → 2025-10-12 15:52 | Outpatient (BNVA) | payer MEDICARE, MEDICAID, SELFPAY | PROVIDERS: PCP Internal Medicine; Visit Provider Internal Medicine | DX: Z00.01 Encounter for general adult medical examination with abnormal findings (principal); E78.2 Mixed hyperlipidemia; F31.9 Bipolar disorder, unspecified; E11.9 Type 2 diabetes mellitus without complications; E03.9 Hypothyroidism, unspecified; E66.01 Morbid (severe) obesity due to excess calories; G61.0 Guillain-Barre syndrome; Z13.31 Encounter for screening for depression; Z13.39 Encounter for screening examination for other mental health and behavioral disorders | CPT/HCPCS: 83036; 96127; 99395 ==

== ENCOUNTER 2025-10-16 09:07 | Outpatient (REF) | payer MEDICARE, MEDICAID, SELFPAY ==
--- OUTSIDE RECORDS SUMMARY | 2025-10-16 09:42 | XMS_ITS | Encounter Summary ---
Author Organization [facility] Address [address] [place] [address] Phone Care Team Providers Care Sex Offender Treatment Professional Name Role Phone Ninfa Francis NP Primary Care Provider Unknown, Unknown Primary Care Provider Ninfa Elam LEHR OPERATOR Unavailable [phone] Lachelle Guerra Co Primary Care Provider Encounter Details Date Type Department Care Team (Late st Contact Info) Description 08/27/2019 Procedure Pass [facility] ENDO DEPT [address] [place] [address], 4th [place] [address] Social History Tobacco Use Types Packs/Day Years [...] on filedocumented in this encounter Care Teams Sex Offender Treatment Professional Relationship Specialty Start Date End Date Ninfa Francis NP [address] [place] [address] Dr [place] [address] [email or web address] PCP - General 08/15/19 Unknown, Casey, [address] [place] [address] Dr ANDRE Danny [place] [address] PCP - General 02/18/20 03/31/20 Lachelle Guerra MD [address] [place] [address] Dr Cruz [place] PCP - General Internal Medicine 04/01/20 Ninfa Francis NP [address] [place] [address] Dr ANDRE Danny [place] [address] [email or web address] 02/18/20 documented as of this encounter Additional Source Comments The information contained in this document represents components of the legal health record. It is not the complete legal health record.[facility]
--- OUTSIDE RECORDS SUMMARY | 2025-10-16 09:42 | XMS_ITS | Encounter Summary ---
Author Organization [facility] Address [address] [place] [address] [place] [address] Phone Care Team Providers Care Gang Sawyer Name Role Phone Ninfa Francis NP Primary Care Provider Unknown, Unknown Primary Care Provider Ninfa Elam FLASK FITTER Unavailable [phone] Lachelle Guerra MD Primary Care Provider Encounter Details Date Type Department Care Team (Late st Contact Info) Description 09/04/2019 Procedure Pass [facility] PERIOPER[facility]IVE DEPT [address] [place] [phone] Social History Tobacco Use Types Packs/Day Years [...] on filedocumented in this encounter Care Teams Gang Sawyer Relationship Specialty Start Date End Date Ninfa Francis NP [address] [place] [address] [place], [place] [address] [email or web address] PCP - General 08/15/19 Unknown, Casey, [address] [place] [address] [place] [address] PCP - General 02/18/20 03/31/20 Lachelle Guerra MD [address] [place] [address] [place] [address] PCP - General Internal Medicine 04/01/20 Ninfa Francis NP [address] [place] [address] [place] [address] [email or web address] 02/18/20 documented as of this encounter Additional Source Comments The information contained in this document represents components of the legal health record. It is not the complete legal health record.[facility]
--- OUTSIDE RECORDS SUMMARY | 2025-10-16 09:42 | XMS_ITS | Encounter Summary ---
Author Organization [facility] Address [address] [place] [address] [place] [address] Phone Care Team Providers Care Metal Forger'S Assistant Name Role Phone Ninfa Francis NP Primary Care Provider Unknown, Unknown Primary Care Provider iNnfa Elam HEATER TENDER Unavailable [phone] Lachelle Guerra MD Primary Care Provider Encounter Details Date Type Department Care Team (Late st Contact Info) Description 08/28/2019 Procedure Pass [facility] [address] [place] [phone] Social History Tobacco Use Types Packs/Day Years [...] on filedocumented in this encounter Care Teams Metal Forger'S Assistant Relationship Specialty Start Date End Date Ninfa Francis NP [address] [place] [address] [place] [address] [email or web address] PCP - General 08/15/19 Unknown, Casey, [address] [place] [address] [place] [address] PCP - General 02/18/20 03/31/20 Lachelle Guerra MD [address] [place] [address] [place] [address] PCP - General Internal Medicine 04/01/20 Ninfa Francis NP [address] [place] [address] [place] [address] [email or web address] 02/18/20 documented as of this encounter Additional Source Comments The information contained in this document represents components of the legal health record. It is not the complete legal health record.[facility]
--- OUTSIDE RECORDS SUMMARY | 2025-10-16 09:42 | XMS_ITS | Encounter Summary ---
Author Organization [facility] Address [address] [place] [address] Phone Care Team Providers Care Healthcare Sales Representative Name Role Phone Ninfa Francis NP Primary Care Provider Unknown, Unknown Primary Care Provider Ninfa Elam HOMEOWNER ASSOCIATION MANAGER Unavailable [phone] Lachelle Guerra Co Primary Care Provider Encounter Details Date Type Department Care Team (Late st Contact Info) Description 08/17/2019 Procedure Pass [facility] [place], [place] [address] [place] [address], 6th [place] [address] Social History Tobacco Use Types Packs/Day Years [...] on filedocumented in this encounter Care Teams Healthcare Sales Representative Relationship Specialty Start Date End Date Ninfa Francis NP [address] [place] [address] [place] [address] [email or web address] PCP - General 08/15/19 Unknown, Casey, [address] [place] [address] Dr ANDRE Danny [place] [address] PCP - General 02/18/20 03/31/20 Lachelle Guerra MD [address] [place] [address] Dr Cruz [place] PCP - General Internal Medicine 04/01/20 Ninfa Francis NP [address] [place] [address] Dr ANDRE Danny [place] [address] [email or web address] 02/18/20 documented as of this encounter Additional Source Comments The information contained in this document represents components of the legal health record. It is not the complete legal health record.[facility]
--- OUTSIDE RECORDS SUMMARY | 2025-10-16 09:42 | XMS_ITS | Encounter Summary ---
Author Organization [facility] Address [address] [place] [address] Phone Care Team Providers Care Fruit And Vegetable Factory Worker Name Role Phone Ninfa Francis NP Primary Care Provider Unknown, Unknown Primary Care Provider Ninfa Elam FINANCIAL COMPLIANCE MANAGER Unavailable [phone] Lachelle Guerra MD Primary Care Provider Encounter Details Date Type Department Care Team (Late st Contact Info) Description 08/24/2019 Procedure Pass [facility] [address] [place] [address] Social History Tobacco Use Types Packs/Day Years [...] on filedocumented in this encounter Care Teams Fruit And Vegetable Factory Worker Relationship Specialty Start Date End Date Ninfa Francis NP [address] [place] [address] [place] [address] [email or web address] PCP - General 08/15/19 Unknown, Unknown, [address] [place] [address] Dr ANDRE [address] [place] [address] PCP - General 02/18/20 03/31/20 Lachelle Guerra MD [address] [place] [address] [place] [address] PCP - General Internal Medicine 04/01/20 Ninfa Francis NP [address] [place] [address] [place] [address] [email or web address] 02/18/20 documented as of this encounter Additional Source Comments The information contained in this document represents components of the legal health record. It is not the complete legal health record.[facility]
--- OUTSIDE RECORDS SUMMARY | 2025-10-16 09:42 | XMS_ITS | Encounter Summary ---
Author Organization [facility] Address [address] [place] [address] Phone Care Team Providers Care Interactive Media Director Name Role Phone Ninfa Francis NP Primary Care Provider Unknown, Unknown Primary Care Provider Ninfa Elam FLIGHT DISPATCHER Unavailable [phone] Lachelle Guerra MD Primary Care Provider Encounter Details Date Type Department Care Team (Late st Contact Info) Description 08/24/2019 Procedure Pass [facility] [address] [place] [address] Social History Tobacco Use Types Packs/Day Years [...] on filedocumented in this encounter Care Teams Interactive Media Director Relationship Specialty Start Date End Date Ninfa Francis NP [address] [place] [address] [place] [address] [email or web address] PCP - General 08/15/19 Unknown, Unknown, [address] [place] [address] Dr [address]RE [address] [place] [address] PCP - General 02/18/20 03/31/20 Lachelle Guerra MD [address] [place] [address] [place] [address] PCP - General Internal Medicine 04/01/20 Ninfa Francis NP [address] [place] [address] [place] [address] [email or web address] 02/18/20 documented as of this encounter Additional Source Comments The information contained in this document represents components of the legal health record. It is not the complete legal health record.[facility]
--- OUTSIDE RECORDS SUMMARY | 2025-10-16 09:42 | XMS_ITS | Encounter Summary ---
Author Organization [facility] Address [address] [place] [address] Phone Care Team Providers Care Fur Ironer Name Role Phone Ninfa Francis NP Primary Care Provider Unknown, Unknown Primary Care Provider Ninfa Elam RESUME SPECIALIST Unavailable [phone] Lachelle Guerra MD Primary Care Provider Encounter Details Date Type Department Care Team (Late st Contact Info) Description 08/24/2019 Procedure Pass [facility] [address] [place] [address] Social History Tobacco Use Types Packs/Day Years [...] on filedocumented in this encounter Care Teams Fur Ironer Relationship Specialty Start Date End Date Ninfa Francis NP [address] [place] [address] [place] [address] [email or web address] PCP - General 08/15/19 Unknown, Unknown, [address] [place] [address] Dr ANDRE [address] [place] [address] PCP - General 02/18/20 03/31/20 Lachelle Guerra MD [address] [place] [address] [place] [address] PCP - General Internal Medicine 04/01/20 Ninfa Francis NP [address] [place] [address] [place] [address] [email or web address] 02/18/20 documented as of this encounter Additional Source Comments The information contained in this document represents components of the legal health record. It is not the complete legal health record.[facility]
--- OUTSIDE RECORDS SUMMARY | 2025-10-16 09:42 | XMS_ITS | Encounter Summary ---
Author Organization [facility] Address [address] [place] [address] Phone Care Team Providers Care Shift Boss Name Role Phone Ninfa Francis NP Primary Care Provider Unknown, Unknown Primary Care Provider Ninfa Elam HAND CUTTER APPRENTICE Unavailable [phone] Lachelle Guerra Co Primary Care Provider Encounter Details Date Type Department Care Team (Late st Contact Info) Description 08/17/2019 Procedure Pass [facility], [place] [address] [place] [address], 6th [place] [address] Social History Tobacco Use Types Packs/Day Years [...] on filedocumented in this encounter Care Teams Shift Boss Relationship Specialty Start Date End Date Ninfa Francis NP [address] [place] [address] [place] [address] [email or web address] PCP - General 08/15/19 Unknown, Casey, [address] [place] [address] Dr ANDRE Danny [place] [address] PCP - General 02/18/20 03/31/20 Lachelle Guerra MD [address] [place] [address] Dr Cruz [place] PCP - General Internal Medicine 04/01/20 Ninfa Francis NP [address] [place] [address] Dr ANDRE Danny [place] [address] [email or web address] 02/18/20 documented as of this encounter Additional Source Comments The information contained in this document represents components of the legal health record. It is not the complete legal health record.[facility]
--- OUTSIDE RECORDS SUMMARY | 2025-10-16 09:43 | XMS_ITS | Encounter Summary ---
Author Organization [facility] Address [address] [place] [address] Phone Care Team Providers Care Electrical Appliance Servicer Name Role Phone Ninfa Francis NP Primary Care Provider Unknown, Unknown Primary Care Provider Ninfa Elam SKI INSTRUCTOR Unavailable [phone] Lachelle Guerra MD Primary Care Provider Encounter Details Date Type Department Care Team (Late st Contact Info) Description 09/10/2019 Ophth Exam [facility] Consult from [address] [address] Ford Herron MD, PhD [address] [place] [address], Dept. [place] [address] [email or web address] Social History Tobacco Use Types Packs/Day Years [...] on filedocumented in this encounter Care Teams Electrical Appliance Servicer Relationship Specialty Start Date End Date Ninfa Francis NP [address] [place] [address] [place] [address] [email or web address] PCP - General 08/15/19 Unknown, Casey, MD [address] [place] [address] [place] [address] PCP - General 02/18/20 03/31/20 Lachelle Guerra MD [address] [place] [address] [place] [address] PCP - General Internal Medicine 04/01/20 Ninfa Francis NP [address] [place] [address] [place] [address] [email or web address] 02/18/20 documented as of this encounter Additional Source Comments The information contained in this document represents components of the legal health record. It is not the complete legal health record.[facility]
--- OUTSIDE RECORDS SUMMARY | 2025-10-16 09:43 | XMS_ITS | Encounter Summary ---
Author Organization [facility] Address [address] [place] [address] Phone Care Team Providers Care Car Varnisher Name Role Phone Ninfa Francis NP Primary Care Provider Unknown, Unknown Primary Care Provider Ninfa Elam AUTOMATED EQUIPMENT ENGINEER TECHNICIAN Unavailable [phone] Lachelle Guerra Co Primary Care Provider Encounter Details Date Type Department Care Team (Late st Contact Info) Description 09/18/2019 Transcribe Orders [address], 6th [place] [address] Madisyn Hill [address] [place] [address] [phone] [email or web address] Social History Tobacco Use Types Packs/Day Years [...] on filedocumented in this encounter Care Teams Car Varnisher Relationship Specialty Start Date End Date Ninfa Francis NP [address] [place] [address] [place] [address] [email or web address] PCP - General 08/15/19 Unknown, Casey, [address] [place] [address] [place] [address] PCP - General 02/18/20 03/31/20 Lachelle Guerra MD [address] [place] [address] [place] [address] PCP - General Internal Medicine 04/01/20 Ninfa Francis NP [address] [place] [address] [place] [address] [email or web address] 02/18/20 documented as of this encounter Additional Source Comments The information contained in this document represents components of the legal health record. It is not the complete legal health record.[facility]
--- OUTSIDE RECORDS SUMMARY | 2025-10-16 09:43 | XMS_ITS | Encounter Summary ---
Author Organization [facility] Address [address] [place] [address] Phone Care Team Providers Care Quantitative Researcher Name Role Phone Ninfa Francis NP Primary Care Provider Unknown, Unknown Primary Care Provider Ninfa Elam SLAG PRODUCTION WORKER Unavailable [phone] Lachelle Guerra MD Primary Care Provider Encounter Details Date Type Department Care Team (Late st Contact Info) Description 08/24/2019 Procedure Pass [facility] [address] [place] [address] Social History Tobacco Use Types Packs/Day Years [...] on filedocumented in this encounter Care Teams Quantitative Researcher Relationship Specialty Start Date End Date Ninfa Francis NP [address] [place] [address] [place] [address] [email or web address] PCP - General 08/15/19 Unknown, Unknown, [address] [place] [address] Dr ANDRE [address] [place] [address] PCP - General 02/18/20 03/31/20 Lachelle Guerra MD [address] [place] [address] [place] [address] PCP - General Internal Medicine 04/01/20 Ninfa Francis NP [address] [place] [address] [place] [address] [email or web address] 02/18/20 documented as of this encounter Additional Source Comments The information contained in this document represents components of the legal health record. It is not the complete legal health record.[facility]
--- OUTSIDE RECORDS SUMMARY | 2025-10-16 09:43 | XMS_ITS | Encounter Summary ---
Author Organization [facility] Address [address] [place] [address] Phone Care Team Providers Care Electric Knife Operator Name Role Phone Ninfa Francis NP Primary Care Provider Unknown, Unknown Primary Care Provider Ninfa Elam PRESS ASSISTANT Unavailable [phone] Lachelle Guerra Co Primary Care Provider Encounter Details Date Type Department Care Team (Late st Contact Info) Description 09/18/2019 Transcribe Orders [address], 6th [place] [address] Madisyn Hill [address] [place] [address] [phone] [email or web address] Social History Tobacco Use Types Packs/Day Years [...] on filedocumented in this encounter Care Teams Electric Knife Operator Relationship Specialty Start Date End Date Ninfa Francis NP [address] [place] [address] [place] [address] [email or web address] PCP - General 08/15/19 Unknown, Casey, [address] [place] [address] [place] [address] PCP - General 02/18/20 03/31/20 Lachelle Guerra MD [address] [place] [address] [place] [address] PCP - General Internal Medicine 04/01/20 Ninfa Francis NP [address] [place] [address] [place] [address] [email or web address] 02/18/20 documented as of this encounter Additional Source Comments The information contained in this document represents components of the legal health record. It is not the complete legal health record.[facility]
--- OUTSIDE RECORDS SUMMARY | 2025-10-16 09:43 | XMS_ITS | Encounter Summary ---
Author Organization [facility] Address [address] [place] [address] Phone Care Team Providers Care Quality Review Specialist Name Role Phone Unknown, Unknown Primary Care Provider Ninfa Elam COST ACCOUNTING MANAGER Unavailable [phone] Lachelle Guerra MD Primary Care Provider Encounter Details Date Type Department Care Team (Latest Contact Info) Description 02/18/2020 Transcribe Orders [facility] Therapeutic Phlebotomy [address] [place] [address] Reid Schrader MD, [address] [place] [address] [email or web address] Intermittent acute porphyria syndrome (Primary Dx) Social [...] FOLIC ACID >20.0(H) 4.2 - 19.9 ng/mL [facility] Blood 02/18/2020 1:27 PM EDT 02/18/2020 1:33 PM EDT us Reid Schrader MD, DPHIL LAB BLOOD BKR ORDERAB LES Final Result [facility] [address] [place] [address] * LDH (02/18/2020 1:27 PM EDT) LDH 170 118 - 273 U/L [facility] Blood 02/18/2020 1:27 PM EDT 02/18/2020 1:33 PM EDT us Reid Schrader MD, DPOHL LAB BLOOD BKR ORDERAB LES Final Result Performing Organization Address [facility] Co de Phone Number [address] [address] * Vitamin B12 (02/18/2020 1:27 PM EDT) VITAMIN B12 970 232 - 1,245 pg/mL [facility] Blood 02/18/2020 1:27 PM EDT 02/18/2020 1:33 PM EDT us Reid Schrader MD, DPOHL LAB BLOOD BKR ORDERAB LES Final Result Performing Organization Address [facility] Co de Phone Number [address] [address] * Ferritin (02/18/2020 1:27 PM EDT) FERRITIN 61 13 - 150 ug/L [facility] Blood 02/18/2020 1:27 PM EDT 02/18/2020 1:33 PM EDT us Reid Schrader MD, [facility]OD BKR ORDERAB LES Final Result Performing Organization Address [facility] Co de Phone Number [address] [address] * (ABNORMAL) Comprehensive metabolic panel (02/18/2020 1:27 PM EDT) SODIUM 141 133 - 146 mmol/L [facility] POTASSIUM 3.7 3.3 - 5.1 mmol/L [facility] CHLORIDE 102 96 - 108 mmol/L [facility] CO2 25 21 - 35 mmol/L [facility] BUN 13 6 - 19 mg/dL [facility] CREATININE 0.60 0.5 - 1.5 mg/dL [facility] GLUCOSE 84 70 - 99 mg/dL [facility] ALBUMIN 4.4 3.9 - 4.8 g/dL [facility] TOTAL PROTEIN 6.9 6.5 - 8.0 g/dL [facility] CALCIUM 9.9 8.4 - 10.3 mg/dL [facility] ALKALINE PHOSPHATASE 131(H) 39 - 117 U/L [facility] TOTAL BILIRUBIN 0.2 0.0 - 1.2 mg/dL [facility] AST 20 0 - 37 U/L [facility] ALT 26 0 - 40 U/L [facility] GLOBULIN 2.5 1 - 4.8 g/dL [facility] EGFR >120 >59 mL/min/1.7 3m2 [facility] Comment:If patient is black, multiply result by 1.159. Estimated glomerular filtration rate calculated using the CKD-EPI equation. ANION GAP 18 10 - 20 mmol/L [facility] Blood 02/18/2020 1:27 PM EDT 02/18/2020 1:33 PM EDT us Reid Schrader MD, DPOHMira LAB BLOOD BKR ORDERAB LES Final Result [address] [address] * Erythropoietin level (02/18/2020 11:50 AM EDT) ERYTHROPOIETIN 8.9 2.6 - 18.5 mIU/mL [facility] Blood 02/18/2020 11:5 0 AM EDT 02/18/2020 2:40 PM EDT us Reid Schrader MD, STEWOHMira LAB BLOOD ORDERABLES Final Result [facility] [address] [place] [address] * Serum protein electrophoresis W/O Immunoglobulins and Immunofixation (02/18/2020 11:50 AM EDT) TOTAL PROTEIN 6.6 6.3 - 7.9 g/dL [facility] [address] ALBUMIN 3.5 3.4 - 4.7 g/dL [facility] DR ALPHA-1 GLOBULIN 0.3 0.1 - 0.3 g/dL [facility] DR ALPHA-2 GLOBULIN 1.0 0.6 - 1.0 g/dL [facility] DR BETA-GLOBULIN 0.9 0.7 - 1.2 g/dL [facility] DR GAMMA-GLOBULIN 0.8 0.6 - 1.6 g/dL [facility] A/G RATIO 1.16 [facility] DR Haley SPIKE Test component not applicable or not reported. g/dL [facility] DR Haley SPIKE Test component not applicable or not reported. g/dL [facility] IMPRESSION SEE NOTE [facility] Comment: (NOTE) No apparent monoclonal protein on serum electrophoresis. Blood 02/18/2020 11:5 0 AM EDT 02/18/2020 2:40 PM EDT us Reid Schrader MD, STEWOHMira LAB BLOOD BKR ORDERAB LES Final Result [facility] [address] [place] [address] * (ABNORMAL) Reticulocytes (02/18/2020 11:50 AM EDT) RETIC (%) 2.1(H) 0.6 - 1.9 % [facility] RETIC (ABSOLUTE) 0.0909(H) 0.0164 - 0.0776 M/uL [facility] RETIC HGB EQUIV 34.6 30.6 - 40.7 pg [facility] Retics, immature(%) 6.6 3.0 - 15.9 % [facility] Blood 02/18/2020 11:5 0 AM EDT 02/18/2020 1:33 PM EDT us Reid Schrader MD, DPOHL LAB BLOOD BKR ORDERAB LES Final Result [address] [address] * Sedimentation rate (ESR) (02/18/2020 11:50 AM EDT) ESR 13 0 - 20 mm/h [facility] Blood 02/18/2020 11:5 0 AM EDT 02/18/2020 1:33 PM EDT Reid Schrader MD, DPOHL LAB BLOOD BKR ORDERAB LES Final Result Performing Organization Address City/[facility]/ZIP Co de Phone Number [address] [address] * (ABNORMAL) CBC and differential (02/18/2020 11:50 AM EDT) WBC 6.21 4.00 - 11.00 K/uL [facility] Comment:Note Reference Range updates to all CBC and Differential results. RBC 4.31 3.72 - 5.30 M/uL [facility] HGB 12.3 10.6 - 15.5 g/dL [facility] Comment:Note updated Referen ce Ranges for all CBC and Differential results. HCT 39.0 32.0 - 45.0 % [facility] PLT 214 140 - 430 K/uL [facility] MCV 90.5 78.0 - 97.0 fL [facility] MCH 28.5 25.0 - 33.0 pg [facility] MCHC 31.5(L) 32.0 - 36.0 g/dL [facility] RDW 14.1 11.0 - 16.0 % [facility] MPV 10.2 8.4 - 12.8 fl [facility] NRBC 0.00 0 /100 WBCs [facility] ABSOLUTE NRBC 0.00 0 K/uL [facility] DIFF METHOD Auto [facility] NEUTS 57.3 43.0 - 75.0 % [facility] LYMPHS 18.5 18.2 - 47.4 % [facility] MONOS 5.3 4.00 - 11.00 % [facility] EOS 17.7(H) 0.0 - 8.0 % [facility] BASOS 1.0 0.0 - 2.0 % [facility] Granulocytes, immature (%) 0.2 0.0 - 0.9 % [facility] ABSOLUTE NEUTS 3.56 1.80 - 7.70 K/uL [facility] ABSOLUTE LYMPHS 1.15 1.00 - 3.10 K/uL [facility] ABSOLUTE MONOS 0.33 0.20 - 0.80 K/uL [facility] ABSOLUTE EOS 1.10(H) 0.00 - 0.80 K/uL [facility] ABSOLUTE BASOS 0.06 0.00 - 0.09 K/uL [facility] Granulocytes, immature 0.01 0.00 - 0.05 K/uL [facility] Blood 02/18/2020 11:5 0 AM EDT 02/18/2020 1:33 PM EDT Reid Schrader MD, DPHIL LAB BLOOD BKR ORDERAB LES Final Result [facility] [address] [place] [address] documented in this encounter Visit Diagnoses Diagnosis 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 It is not the complete legal health record.[facility]
--- OUTSIDE RECORDS SUMMARY | 2025-10-16 09:43 | XMS_ITS | Encounter Summary ---
Author Organization [facility] Address [address] [place] [address] [place] [address] Phone Care Team Providers Care Indoor Landscaper/Gardener Name Role Phone Ninfa Francis NP Primary Care Provider Unknown, Unknown Primary Care Provider Ninfa Elam CLASSER Unavailable [phone] Lachelle Guerra Co Primary Care Provider Encounter Details Date Type Department Care Team (Late st Contact Info) Description 09/22/2019 Procedure Pass [facility] [address] [place] [address], 2nd [place] [address] Social History Tobacco Use Types Packs/Day Years [...] on filedocumented in this encounter Care Teams Indoor Landscaper/Gardener Relationship Specialty Start Date End Date Ninfa Francis NP [address] [place] [address] [place] [address] [email or web address] PCP - General 08/15/19 Unknown, Casey, [address] [place] [address] Dr ANDRE Danny [place] [address] PCP - General 02/18/20 03/31/20 Lachelle Guerra MD [address] [place] [address] [place] [address] PCP - General Internal Medicine 04/01/20 Ninfa Francis NP [address] [place] [address] Dr ANDRE Danny [place] [address] [email or web address] 02/18/20 documented as of this encounter Additional Source Comments The information contained in this document represents components of the legal health record. It is not the complete legal health record.[facility]
--- OUTSIDE RECORDS SUMMARY | 2025-10-16 09:43 | XMS_ITS | Encounter Summary ---
Author Organization [facility] Address [address] [place] [address] Phone Care Team Providers Care Box Coverer Hand Name Role Phone FrancisNinfa cruz LEARNING CONSULTANT Unavailable [phone] Lachelle Guerra MD Primary Care Provider Encounter Details Date Type Department Care Team (Late st Contact Info) Description 06/11/2020 Telephone Division of Immunologic, Inflammatory, and Infectious Neurological Disorders [address], 7[address], [address] [place] [address] Jermaine Poole MD [email or web address] History Tobacco Use Types Packs/Day Years [...] on filedocumented in this encounter Care Teams Box Coverer Hand Relationship Specialty Start Date End Date Lachelle Guerra MD [facility] [address] [place] [phone] PCP - General Internal Medicine 04/01/20 Ninfa Francis NP [address] [place] [address] Dr [place], [place] [address] [email or web address] 02/18/20 documented as of this encounter Additional Source Comments The information contained in this document represents components of the legal health record. It is not the complete legal health record.[facility]
--- OUTSIDE RECORDS SUMMARY | 2025-10-16 09:43 | XMS_ITS | Clinical Summary ---
Author Organization [facility] Address [address] [place] [id number] Phone Care Team Providers Care Roll Scale Worker Name Role Phone Francis, Ninfa Costa PRINCIPAL ARCHIT[employer]URAL [employer]M Unavailable [phone] Lachelle Guerra MD Primary Care Provider Allergies [...] mgGastrostomy Tube2 times daily, Reported on 03/13/2022 [id number] ous gluconate (CENTRUM WITH IRON) 9 mg [...] of Immunologic, Inflammatory, and Infectious Neurological Disorders [address] [place] [address], 7[address] Floor, [address] [place] [address] Chaitanya Rubalcava MD Medication Refill from Last [...] EDT) SODIUM 139 135 - 145 mmol/L [facility] POTASSIUM 4.3 3.4 - 5.0 mmol/L [facility] CHLORIDE 103 98 - 108 mmol/L [facility] CO2 24 23 - 32 mmol/L [facility] BUN 15 8 - 25 mg/dL [facility] CREATININE 0.63 0.60 - 1.50 mg/dL [facility] GLUCOSE 141(H) 70 - 110 mg/dL [facility] ALBUMIN 4.2 3.3 - 5.0 g/dL [facility] TOTAL PROTEIN 6.7 6.0 - 8.3 g/dL [facility] CALCIUM 9.1 8.5 - 10.5 mg/dL [facility] ALKALINE PHOSPHATASE 104(H) 30 - 100 U/L [facility] TOTAL BILIRUBIN 0.2 0.0 - 1.0 mg/dL [facility] AST 18 9 - 32 U/L [facility] ALT 21 7 - 33 U/L [facility] GLOBULIN 2.5 1.9 - 4.1 g/dL [facility] EGFR 120 >59 mL/min/1. 73m2 [facility] Comment:If patient is black, multiply result by 1.159. Estimated glomerular filtration rate calculated using the CKD-EPI equation. ANION GAP 12 3 - 17 mmol/L [facility] Blood 04/09/2020 1:20 PM EDT 04/09/2020 1:32 PM EDT us Deirdre Briceño [facility] LAB BLOOD BKR ORDERABLES Final R esult [address] [address] * TSH with reflex (09/23/2019 5:00 AM EST) SCREENING PANEL: TSH 0.75 0.40 - 5.00 uIU/mL [facility] Blood 09/23/2019 5:00 AM EST 09/23/2019 5:07 AM EST us Viki Brenner [facility] LAB BLOOD BKR ORDERABLES Final Result Performing Organization Address City/[facility]/ZIP Co de Phone Number [address] [address] * Hepatitis B surface antigen (09/18/2019 10:06 AM EST) HBV SURFACE ANTIGEN Negative Negative [facility] Blood 09/18/2019 10:0 6 AM EST 09/18/2019 10:22 AM EST us Cheryl Stevenjana [facility] LAB BLOOD BKR ORDERABLES Kathia l Result Performing Organization Address [facility] Co de Phone Number [address] [address] * (ABNORMAL) Glucose (09/07/2019 6:45 AM EDT) GLUCOSE 150(H) 70 - 110 mg/dL [facility] 09/07/2019 6:45 AM EDT 09/07/2019 12:43 PM EDT us Valerie Monk MD LAB BLOOD BKR ORDERABLES Final R esult Performing Organization Address [facility] de Phone Number [address] [address] from Last 3 Months or Most Recently Relevant to Health Maintenance Insurance [facility] MEDICARE PART A & [place] Member Subscriber Plan / Payer (Ef fective 2022-Present) Name:Soren Wolfle Relation to Subscriber:Self Name:Susy Wolf Payer ID:[id number] Group ID:Not on file Type:Medicaid Address: [address] [address] [place]ICARE [place] & B [address] [id number] Advance Directives For more information, please contact: [phone] (9AM - 5PM [place], Sunday-Sunday) * Full [...] 8:18 PM 08/16/2019 10:19 PM Care Teams Roll Scale Worker Relationship Specialty Start Date End Date Lachelle Guerra MD [facility] [place] [place] [address] PCP - General Internal Medicine 04/01/20 Ninfa Francis NP [address] [place] [address] [place] [address] [email or web address] 02/18/20 Additional Source Comments The information contained in this document represents components of the legal health record. It is not the complete legal health record.[facility]
[2025-10-16 10:13] LABS: MANUAL DIFF FLAG NO
[2025-10-16 10:24] LABS: Hematocrit 40.4 % (37.0-47.0); Hemoglobin 13.2 g/dl (12.0-16.0); Imm Gran Abs Auto 0.02 X10*3/uL (0.00-0.03); Imm Gran Pct Auto 0.4 % (0.0-0.4); Lymphocytes Absolute Auto 1.5 X10*3/uL (1.2-4.9); Mean Corpuscular HGB Conc 32.7 g/dl (31.0-35.0); Mean Corpuscular Hemoglobin 28.0 pg (27.0-33.0); Mean Corpuscular Volume 85.6 fL (80.0-98.0); NRBC Abs Auto 0.000 X10*3/uL (0.0-0.012); NRBC Pct Auto 0.0 /100WBC (0.0-0.2); Platelet Count 221 X10*3/uL (160-400); Red Blood Count 4.72 X10*6/uL (4.20-5.50); White Blood Count 4.6 X10*3/uL (4.8-10.8)
[2025-10-16 11:29] LABS: Alanine Aminotransferase 18 U/L (0-31); Anion Gap 11 (12-20); Aspartate Amino Transferase 21 U/L (5-31); Blood Urea Nitrogen 23 mg/dL (9-16); Calcium 9.1 mg/dL (8.4-10.2); Carbon Dioxide 25 mmol/L (22-29); Chloride 106 mmol/L (96-108); Cholesterol 155 mg/dL (<200); Estimated Glomerular Filt Rate 59; HDL Cholesterol 53 mg/dL (>40); Potassium 3.9 mmol/L (3.3-5.1); Sodium 138 mmol/L (135-145); Triglycerides 187 mg/dL (<150)
[2025-10-16 11:33] LABS: Free T4 (Free Thyroxine) 0.95 ng/dL (0.71-1.85); Thyroid Stimulating Hormone 5.61 uIU/mL (0.32-4.0)
== END 2025-10-16 09:08 | disposition home or self-care (01) ==
LOC: HO.HMGCLDS 09:07
PROVIDERS: PCP Internal Medicine; Visit Provider Internal Medicine
DX: Z00.00 Encounter for general adult medical examination without abnormal findings (principal); F31.9 Bipolar disorder, unspecified; E78.2 Mixed hyperlipidemia; E11.9 Type 2 diabetes mellitus without complications; E03.9 Hypothyroidism, unspecified; E66.01 Morbid (severe) obesity due to excess calories; G61.0 Guillain-Barre syndrome
CPT/HCPCS: 36415; 80048; 80061; 82306; 84439; 84443; 84450; 84460; 85025